=== PATIENT | female | born 1940 | race Caucasian/White ===

== ENCOUNTER 2018-06-29 14:50 | Outpatient (CLI) | payer MEDICARE, MEDICAID, SELFPAY ==
[2018-07-03 11:58] LABS: Hepatitis C Ab w Rflx HCV PCR Negative (NEGAT)
[2018-07-03 12:04] LABS: HIV-1/2 Ag & Ab Screen Negative (NEGAT)
[2018-07-03 12:08] LABS: Hep B Core Antibody Negative (NEGAT)
== END 2018-06-29 15:10 ==
PROVIDERS: PCP Internal Medicine; Visit Provider Obstetrics & Gynecology
DX: Z11.4 Encounter for screening for human immunodeficiency virus [HIV] (principal); Z11.3 Encounter for screening for infections with a predominantly sexual mode of transmission; Z11.59 Encounter for screening for other viral diseases; Z01.84 Encounter for antibody response examination
CPT/HCPCS: 36415; 86704; 86803; 87340; 87389

== ENCOUNTER 2018-06-29 16:22 | Outpatient (REF) | payer MEDICARE, MEDICAID, SELFPAY ==
[2018-07-03 14:51] LABS: Chlamydia Result Negative; GC Result Negative; Specimen Description CERVIX
== END 2018-06-29 16:42 ==
LOC: LBN 16:22
PROVIDERS: PCP Internal Medicine; Visit Provider Obstetrics & Gynecology
DX: Z11.3 Encounter for screening for infections with a predominantly sexual mode of transmission (principal)
CPT/HCPCS: 86803; 87491; 87591

== ENCOUNTER → 2018-07-17 13:39 | Outpatient (BNVA) | payer MEDICARE, MEDICAID, SELFPAY | PROVIDERS: Visit Provider Urology | DX: N28.1 Cyst of kidney, acquired (principal); I10 Essential (primary) hypertension | CPT/HCPCS: 99203; 99214 ==

== ENCOUNTER 2019-02-23 13:57 | Outpatient (CLI) | payer MEDICARE, MEDICAID, SELFPAY ==
[2019-02-23 16:45] LABS: TSH (W/Ref FT4) 0.01 uIU/mL (0.358-3.74)
[2019-02-24 11:35] LABS: HIV-1/2 Ag & Ab Screen Negative (NEGAT)
[2019-02-24 14:43] LABS: FREE T4 1.25 ng/dL (0.76-1.46)
[2019-02-26 10:51] LABS: Hepatitis Be Antigen Negative (Negative)
[2019-02-26 12:36] LABS: Hep B Core Antibody Negative (NEGAT)
[2019-02-27 10:51] LABS: Syphilis Serology (RPR) Negative (Negative)
== END 2019-02-23 14:17 ==
PROVIDERS: PCP Internal Medicine; Visit Provider Obstetrics & Gynecology
DX: N92.0 Excessive and frequent menstruation with regular cycle (principal); Z72.51 High risk heterosexual behavior; Z11.4 Encounter for screening for human immunodeficiency virus [HIV]; Z11.59 Encounter for screening for other viral diseases
CPT/HCPCS: 36415; 86704; 87389; 84439; 84443; 86592; 87350

== ENCOUNTER 2019-02-23 18:43 | Outpatient (REF) | payer MEDICARE, MEDICAID, SELFPAY ==
[2019-02-26 13:44] LABS: Chlamydia Result Negative; GC Result Negative; Specimen Description CERVICAL
== END 2019-02-23 19:03 ==
LOC: LBN 18:43
PROVIDERS: PCP Internal Medicine; Visit Provider Obstetrics & Gynecology
DX: Z72.51 High risk heterosexual behavior (principal); Z11.3 Encounter for screening for infections with a predominantly sexual mode of transmission
CPT/HCPCS: 87491; 87591

== ENCOUNTER → 2019-04-27 07:59 | Outpatient (BNVA) | payer MEDICARE, MEDICAID, SELFPAY | PROVIDERS: PCP Internal Medicine; Visit Provider Urology | DX: R32 Unspecified urinary incontinence (principal); R39.11 Hesitancy of micturition; R31.9 Hematuria, unspecified; I10 Essential (primary) hypertension; J44.9 Chronic obstructive pulmonary disease, unspecified | CPT/HCPCS: 81003; 99213 ==

== ENCOUNTER 2019-05-01 00:15 | Outpatient (CLI) | payer MEDICARE, MEDICAID, SELFPAY ==
--- NOTE | 2019-05-01 13:21 | DI.DEXA_ITS ---
SYMPTOMS/DIAGNOSIS: POSTMENOPAUSAL, Z78.0, FRACTURE OF COCCYX, S32.2XXG DEXA SCAN: Routine examination. Evaluation of the lateral spine shows no compression deformities. Evaluation of the left hip shows a total T score of -0.1 and Z score of 1.8. This is within normal limits. This compares with a total T score of 0.2 from 2008. Evaluation of the lumbar spine shows a total T score of -0.3 and a Z score of 2.2 which is within normal limits. This compares with a total T score of -0.7 from 2008. IMPRESSION: No evidence of osteoporosis.
== END 2019-05-01 00:35 ==
PROVIDERS: PCP Internal Medicine; Visit Provider Internal Medicine
DX: Z78.0 Asymptomatic menopausal state (principal); Z13.820 Encounter for screening for osteoporosis
CPT/HCPCS: 77080

== ENCOUNTER 2019-05-18 02:26 | Outpatient (CLI) | payer MEDICARE, MEDICAID, SELFPAY | END 2019-05-18 02:46 | PROVIDERS: PCP Internal Medicine; Visit Provider Urology | DX: R32 Unspecified urinary incontinence (principal); R39.11 Hesitancy of micturition | CPT/HCPCS: 82565; 87086 ==

== ENCOUNTER → 2020-02-11 12:50 | Outpatient (BNVA) | payer MEDICARE, MEDICAID, SELFPAY | PROVIDERS: PCP Internal Medicine; Referring Provider Internal Medicine; Visit Provider Surgery | DX: R10.11 Right upper quadrant pain (principal); G89.29 Other chronic pain; Z01.818 Encounter for other preprocedural examination; Z87.19 Personal history of other diseases of the digestive system | CPT/HCPCS: 99203; 99214 ==

== ENCOUNTER 2020-02-11 15:41 | Outpatient (REF) | payer MEDICARE, MEDICAID, SELFPAY ==
[2020-02-11 21:18] LABS: Anion Gap 7.1 mmol/L (3-11); BUN 13 mg/dL (7-18); CO2 27.9 mmol/L (21.0-32.0); CREATININE 0.74 mg/dL (0.55-1.02); Calcium 9.3 mg/dL (8.5-10.1); Chloride 104 mmol/L (98-107); FREE T4 1.32 ng/dL (0.76-1.46); Glucose 92 mg/dL (74-106); Potassium 4.5 mmol/L (3.5-5.1); Sodium 139 mmol/L (136-145)
[2020-02-11 21:26] LABS: TSH < 0.01 uIU/mL (0.36-3.74)
[2020-02-12 16:41] LABS: T3, Total 223 ng/dL (97-169)
[2020-02-13 09:52] LABS: Thyroglobulin Antibody <15 U/mL (<=60); Thyroperoxidase Antibody <28 U/mL (<=60)
== END 2020-02-11 16:01 ==
LOC: NCHCN 15:41
PROVIDERS: PCP Internal Medicine; Visit Provider Internal Medicine
DX: E05.80 Other thyrotoxicosis without thyrotoxic crisis or storm (principal)
CPT/HCPCS: 80048; 86376; 84439; 84443; 84480

== ENCOUNTER 2020-02-21 09:23 | Outpatient (CLI) | payer MEDICARE, MEDICAID, SELFPAY ==
[2020-02-22 15:09] LABS: COVID-19 RT-PCR Result NEGATIVE (Negative)
== END 2020-02-21 09:43 ==
PROVIDERS: PCP Internal Medicine; Visit Provider Surgery
DX: Z11.51 Encounter for screening for human papillomavirus (HPV) (principal); Z01.818 Encounter for other preprocedural examination
CPT/HCPCS: U0003

== ENCOUNTER 2020-02-25 06:59 | Day surgery (SDC) | payer MEDICARE, MEDICAID, SELFPAY ==
[2020-02-25 07:22] VITALS: BP 161/90; PULSE 79; RESP 16; TEMP 36.2; O2SAT 98
[2020-02-25] MEDS: Lactated Ringers 1,000 ML 80 ML IV (07:49)
--- NOTE | 2020-02-25 08:17 | W.PM.DSUDISC ---
Discharge Plan Disposition Patient Disposition: HOME Condition: Good Discharge Details Reason For Visit: EGD Attending Provider: Sammi Harp Primary Care Provider: Campos Lopes Home Meds and New Rx's Prescriptions: Continued fluticasone propionate 50 mcg/actuation spray,suspension 2 spray NASIR DAILY RF: 0 Advair HFA 230-21 mcg/actuation HFA aerosol inhaler 2 puff IH BID RF: 0 estradiol [Estrace] 42.5 GM cream 1 g VG PRN PRNRF: 0 phenazopyridine [Pyridium] 200 mg tablet 200 mg PO TID PRNRF: 0 albuterol sulfate [Ventolin HFA] 90 mcg/actuation HFA aerosol inhaler 2 puff IH Q6H PRNRF: 0 cholecalciferol (vitamin D3) 25 mcg (1,000 unit) capsule 25 mcg PO DAILY RF: 0 solifenacin [Vesicare] 5 MG tablet 5 mg PO PRN RF: 0 omeprazole 40 mg Capsule,Delayed Release(Dr/Ec) 40 mg PO BID RF: 0 atenolol 50 mg Tablet 50 mg PO DAILY RF: 0 guaifenesin [Mucinex] 600 mg Tablet Extended Release 12hr 600 mg PO RF: 0 Discharge Instructions Additional Instructions: Findings: Your stomach showed mild inflammation. Continue the omeprazole. My office will contact you with biopsy results. A submucosal mass was present in the stomach. 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 A referral will be made for an endoscopic ultrasound of the stomach with biopsy. Please call if you develop: fevers >101.5 Nausea or Vomiting Abdominal pain that is not transient DAY SURGERY UNIT POST EGD INSTRUCTIONS 1. Because there will be medication in your system for the next 24 hours, you may feel a little sleepy. Your coordination will be affected. Therefore: a. Do not drive or operate dangerous equipment for 24 hours. b. Do not drink alcohol beverages for 24 hours (not even beer). c. Plan to go home and rest for the day. 2. Generally there are no restrictions on your activity after a day or so has gone by, but you may feel a bit fatigued for a few days. 3 After you arrive home you may have a light meal and return to a normal diet as you can tolerate it without feeling sick to your stomach. 4. After surgery, you may feel pain or discomfort. This should be only transient, but if it persists please contact your doctor. 5. If there are any questions regarding the findings of your procedure, please feel free to contact your doctor. 6. If you are unable to contact your doctor with a problem, contact the hospital at [phone]. 7. Continue all your regular medications unless directed otherwise. I understand the above instructions and have no questions. Signature of Patient or Responsible Adult Escort Date/Time Name of Responsible Adult Escort Signature of Nurse Date/Time Activity:: Activity as Tolerated Diet:: As Tolerated Discharge Orders Discharge Orders: Discharge Order (Routine); Ordered 02/25/20 Ordered By: Sammi Harp DS: Diagnosis Discharge Diagnosis (1) Mild chronic gastritis: Status: Acute (2) Gastric mass: Status: Acute
--- NOTE | 2020-02-25 08:45 | BOWEL_PTH ---
PATIENT: Maureen Thomas LOC: [facility] U#:[id number] AGE/SX: 80/F ROOM: RE02/25/[address]: Sammi Harp MD : 1940 BED: DIS: 02/25/2020 SPEC #: [id number] RECD: 02/25/20 11:47 STATUS: SOUNeha REQ #: [id number] EFRAÍN: 02/25/20 08:[address]: Sammi Harp DEPT: Surgical Specimen RECD BY: Ivett Serrano ENTERED: 02/25/20 11:48 SP TYPE: Bowel OTHR DR: Campos Lopes Tissues: 1 - BIOPSY BOWEL 2 - STOMACH BIOPSY Procedures: GROSS AND MICRO LEVEL 4 Comments: [id number]
[2020-02-25 09:23] VITALS: BP 142/77; PULSE 65; RESP 16; TEMP 36.3; O2SAT 95
--- NOTE | 2020-02-26 14:31 | W.PM.ENDDOP ---
Date of service: 02/25/20 Time of Service: 08:30 Endoscopy Report DATE OF PROCEDURE: 02/25/20 PRE-OP DIAGNOSIS: RUQ pain, history of PUD POST-OP DIAGNOSIS: other (Mild gastritis, submucosal gastric mass) PROCEDURE: EGD with biopsies SURGEON: Sammi Harp ANESTHESIA: MAC DISPOSITION: same day INDICATIONS: This 80-year-old woman presents for evaluation of right upper quadrant pain as well as excessive mucus production. She has a remote history of an ulcer which she believes was duodenal. She has not noted much improvement in her symptoms by increasing her omeprazole to twice a day. PROCEDURE DESCRIPTION: She was placed in the left lateral decubitus position. Propofol was titrated to sedation. The scope was advanced into her esophagus under direct visualization and down into the stomach and duodenum. There was no duodenitis or ulcers noted. Biopsies were taken from the second portion of the duodenum. The gastric antrum showed no acute ulceration. There may have been a area of scar representing a healed ulcer. Along the greater curvature the stomach at the junction of the gastric body and antrum was an approximately 4 cm submucosal mass. This has the appearance of a GIST. I did not perform biopsies because the abnormality is located below the mucosa. The patient was noted to have mild gastritis. Biopsies were taken from the gastric body to evaluate this. Retroflexed view showed no abnormalities. The GE junction exhibited no masses, Salinas's, inflammation or strictures. The air was suctioned in the stomach and scope withdrawn with no other esophageal lesions found. She will be referred for endoscopic ultrasound with biopsy as well as CT scan of the abdomen and pelvis. Her excess mucus production may be related to postnasal drip and or reactive airway disease. Reflux may also be a factor although no visible abnormalities were seen. She tolerated the procedure well and was stable to recovery.
== END 2020-02-25 09:55 | disposition home or self-care (01) ==
PROVIDERS: PCP Internal Medicine; Visit Provider Surgery
PROC: 0DJ68ZZ Inspection of Stomach, Via Natural or Artificial Opening Endoscopic (ICD-10-PCS; CPT 43235; principal; 2020-02-25 08:15)
DX: R10.11 Right upper quadrant pain (principal); Z87.11 Personal history of peptic ulcer disease; K31.89 Other diseases of stomach and duodenum; K29.60 Other gastritis without bleeding; J44.9 Chronic obstructive pulmonary disease, unspecified; I10 Essential (primary) hypertension; I48.0 Paroxysmal atrial fibrillation
CPT/HCPCS: 43239; 88305; J2001; J2405; J2704

== ENCOUNTER 2020-02-29 02:17 | Outpatient (CLI) | payer MEDICARE, MEDICAID, SELFPAY ==
--- NOTE | 2020-02-29 07:15 | DI.CT_ITS ---
EXAM: CT ABDOMEN PELVIS W CLINICAL HISTORY: Submucosal gastric mass, K31.89 TECHNIQUE: Imaging Protocol: Axial computed tomography images with coronal and sagittal reformatted images were created and reviewed CONTRAST MATERIAL: Intravenous: Omnipaque 350 Contrast volume:100 mL Oral: Yes COMPARISON: CT LUMBAR SPINE WITHOUT CONTRAST from 12/09/[address] CHEST W/O CONTRAST from 11/28/2017 FINDINGS: ABDOMEN: Lung Bases: Normal where visualized. Liver: Normal density. No measurable mass. Portal, Superior Mesenteric, and Splenic Veins: Unremarkable. Gallbladder and Biliary Tract: No radiodense calculus or dilation. Pancreas: Normal density, no abnormal calcifications or inflammatory process. Spleen: Normal. Adrenals: No masses seen. Kidneys: Normal size, contour and axis. No radiodense stones or obstructive uropathy. Bilateral simpl e renal cysts. Abdominal Aorta: Abdominal portion non-dilated. Atherosclerosis. Bowel: No obstruction or bowel wall thickening. There is a small hiatal hernia. Appendix is unremar kable. Colonic diverticulosis but no evidence of acute diverticulitis. There is a 2.4 x 1.2 cm fat d ensity submucosal mass in the anterior wall of the distal stomach. (Series 5, image 139). No enhanc ing or solid component is noted. 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 Peritoneal Cavity: No ascites, collection or mesenteric inflammatory response. Lymph Nodes: Within normal limits. Bones: Within normal limits. Soft Tissues: Unremarkable. PELVIS: Bladder: Symmetric distention, no gross wall thickening. Reproductive Organs: Unremarkable as visualized. Lymph Nodes: Within normal limits. Bones: Within normal limits. IMPRESSION: 1. 2.4 x 1.2 cm intramural fat attenuation mass in the anterior wall of the distal stomach. 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 2. Colonic diverticulosis but no evidence of acute diverticulitis. 3. No evidence of abdominal or pelvic adenopathy or ascites. RADIATION DOSE DELIVERED: 1,096.51mGy.cm Total DLP DATA REPOSITORY: All CT scans at this facility are submitted to the National Radiology Data Registry (NRDR) Dose Index Registry (DIR) with the [employer] (ACR). RADIATION OPTIMIZATION: All CT scans at this facility use at least one of these dose optimization te chniques: automated exposure control; mA and/or kV adjustment per patient size (includes targeted exa ms where dose is matched to clinical indication); or iterative reconstruction.
[2020-02-29] MEDS: Omnipaque 350 MG/ML 100 ML BTL IJ (08:26)
== END 2020-02-29 02:37 ==
PROVIDERS: PCP Internal Medicine; Visit Provider Surgery
DX: K31.89 Other diseases of stomach and duodenum (principal); N28.1 Cyst of kidney, acquired; K57.30 Diverticulosis of large intestine without perforation or abscess without bleeding
CPT/HCPCS: 74177; J3490

== ENCOUNTER 2020-03-06 01:53 | Outpatient (CLI) | payer MEDICARE, MEDICAID, SELFPAY ==
--- NOTE | 2020-03-06 07:45 | DI.US_ITS ---
EXAM: US ABDOMEN LIMITED CLINICAL HISTORY: Evaluate gallbladder,CHRONIC RUQ PAIN, R10.11,G89.29,F/U CT TECHNIQUE: Ultrasound performed using standard protocol. COMPARISON: CT CT ABDOMEN PELVIS W from 02/29/2020 FINDINGS: The gallbladder was scanned. No stones, wall thickening or pericholecystic fluid is seen. Common b ile duct measures 4 millimeters. IMPRESSION: Normal gallbladder DATA REPOSITORY:
== END 2020-03-06 02:13 ==
PROVIDERS: PCP Internal Medicine; Visit Provider Surgery
DX: R10.11 Right upper quadrant pain (principal); G89.29 Other chronic pain
CPT/HCPCS: 76705

== ENCOUNTER 2020-03-19 00:40 | Outpatient (CLI) | payer MEDICARE, MEDICAID, SELFPAY ==
--- NOTE | 2020-03-19 07:00 | DI.NM_ITS ---
EXAM: NM HEPATOBILIARY CCK GRP CLINICAL HISTORY: RUQ pain,R10.11. TECHNIQUE: Injected dose: 5 mCi Tc-99 mebrofenin Initial dynamic images: 60 minutes Post-Gallbladder fillin.7 mcg CCK infused over 45 minutes according to protocol. Addition images: 20 minute dynamic during CCK administration. FINDINGS: The patient did report mild nauseous during CCK infusion similar to primary complaint. Normal hepatic transit time. Prompt excretion into the small bowel. Prompt excretion into the gallbladder The gallbladder ejection fraction was calculated at 14 percent. (Normal gallbladder ejection fractio n is greater than 40 percent. IMPRESSION: 1. Decreased gallbladder ejection fraction at 14 percent. This can be seen with gallbladder dysfunct ion/gallbladder dyskinesia. Gallbladder ejection fraction <35% has a good correlation with acalculous disease (i.e., chronic acal culous cholecystitis, cystic duct syndrome, sphincter of Oddi disease).
[2020-03-19] MEDS: Sincalide 5 MCG VIAL 1.7 MCG IJ (15:28)
== END 2020-03-19 01:00 ==
PROVIDERS: PCP Internal Medicine; Visit Provider Surgery
DX: R10.11 Right upper quadrant pain (principal); R11.0 Nausea; K82.8 Other specified diseases of gallbladder
CPT/HCPCS: 78227

== ENCOUNTER 2020-11-21 10:19 | Outpatient (CLI) | payer MEDICARE, MEDICAID, SELFPAY ==
--- OUTSIDE RECORDS SUMMARY | 2020-11-21 10:24 | XMS_ITS | Encounter Summary ---
:1940 Author Care Team Providers Name Role Phone Nate Lopes Primary Care Provider [phone] Moris Eason MD Health Technician [phone] Shruthi Hussein MD Minute Clerk For [employer] Unavailable Oleg Bocanegra MD Urologist [phone] Romulo Comer MD Orthopedic Surgeon Unavailable Reason for Visit Follow Up Echo; [place] - Dyspnea on Exertio n; HTN-Hypertension Ref; Dr Lopes @ [facility] Assessment and Plan Assessment Note Date: November 12, 2020. Referring: Re: Maureen Thomas 72-year-old woman Problems: 1. Dyspnea. Longstanding. Patient describes sufferin g from considerable reactive airway disease. She describes bad cold weather asthma. This significantly limits her in the terry. In the dao her activity prof ile can become quite normal without ihsan thing difficulties but in the winter cold air induces significant bronchospasm. She pretreats with albuterol, she uses Advair. In years past she has been able to manage with these measures. Patient evaluated ER September 18, 2020, describing shortness of breath for 2 days. Noted [facility] Day before she was short of breath walking to the [employer] store. In ER blood pressure 152/97, heart rate 6 6 chest x-ray negative. Troponin negative. Discharged. She apparently used her rescue albuterol in the course of developing these symptoms without any result. This event was quite atypical for seymour t. She is usually able to walk a block stores without any difficulty. She is minimally active at baseline. He is fairly sedentary at home. No aerobic exercise whatsoever. She looks after her own home, lives alone and independently. Does her own cooking cleaning. She does not have any stairs to climb. She takes her laundry down a long haul (lives in an apartment complex), this is one of her longer walks, in addition to walking in stores. Since September 2020 event, she is descri fela intermittent shortness of breath that is unusually limiting for her context of walking for her longer walking in stores. There are days she can do these acti vities without problem, other days when she is quite short of breath. She has no history of chest discomfort. She describes sweating excessively, th is is a longstanding issue. 2. Left bundle branch block. Noted on September 2020 ER evaluation. I do not know if left bundle branch block is more longstanding than that. Noted again on EKG today, November 12, 2020. 3. Palpitations. She has a history of palpitations that h ave been very well controlled with atenolol. HPI: November 12, 2020. Living situation as above. Dyspnea as above. No history chest pain. Denies PND orthopnea edema. Weight is not checked at home. She sleeps on 2 pillows. She describes significant GERD also describes significant mucus that can inte rfere with breathing, she feels mucus is related to GERD. GERD is now being controlled ostensibly by omeprazole 40 mg twice daily with as needed ranitidine. She describes gallbladder issues with right u pper quadrant pain that is occasionally quite severe. She describes having a multinodular goiter with a history of low TSH, normal free T4, T3. No snoring history/sleep evaluation. Palpitations as above , no presyncope or syncope. No bleeding problems. DATA: Cardiac risk factors: Positive hypertens ion. Negative diabetes. Negative cholesterol. Negative family history. Positive remote tobacco, [id number] history, quit 1993. Social history: Activity profile as abov e. Past medical history: Asthma. Carpal elda sharon. Chronic interstitial cystitis. GERD. Hypersomnia. Fatigue. Review of systems: A 10-point review of systems was obtained. Pertinent positives as described in HPI, all others negative. Allergies: Epinephrine?tachycardia. Myrb etriq?increased urinary frequency. Nitrofurantoin?bladder pain. Shellfish: Facial swelling. Trimethoprim: Rash. Contrast allergies: Iodinated IVP dye: H josh Echo: November 04, 2020. LVEF 60 to 65%. Normal size. Mild concentric LVH. Paradoxical septum. Sinus. Right ventricle mildly dilated, normal function. Left atrium normal, 22. Right atrium normal. Aortic valve trileaflet. Pulmonary pressure not assessable. Pericardium normal. Aortic root normal 2.8. Ascending normal 2.9. Arch normal 2.2. No coarct. No PDA. IVC normal. E prime 5, 7 (7, 10). E/E primed 14 .8, 11.7 (15, 12). TR max unknown. Diast olic indices appear normal, no evidence elevated left-sided filling pressure. Cardiac MRI: Stress: LHC: Holter: Event monitor: EKG: November 12, 2020. Sinus rhythm 70 b pm. Left bundle branch block. QT/QTc 404/421 ms. September 18, 2020. Sinus rhythm 63 bpm. Left bundle branch block. QT/QTc 437/448 ms. Radiology: September 19, 2020. Chest x-ra y. No acute abnormality. June 13, 2019. Chest CT without cont rast. Stable minimal densities left lower lobe right middle lobe. Pulmonary function test: Labs: November 12, 2020. BUN/creatinine 2 1/0.6. Lites normal except bicarb 32. AST/ALT normal. D-dimer 0.55. proBNP 353. Troponin less than 0.06x1. CBC normal. September 18, 2020. Troponin less than 0. 06x1. CBC normal. April 14, 2020. TSH low, less than 0.05. T 3 total normal 157. Free T4 normal 0.91. March 24, 2019. BUN/creatinine 23/0.6. Li ponce normal. Magnesium normal 2.1. Medications: Atenolol 50 mg daily Advair, vitamin C, Estrace, fluconazole, fluticasone, levofloxacin, magnesium, omeprazole, ranitidine, solifenacin, Toviaz, Ventolin, vitamin C, vitamin D3 Exam: Blood pressure: 190/107, repeat 122/91 Heart rate: 76 Oxygen saturation: 93% Weight: 198 pounds November 12, 2020: Ambulation in the villagomez : Heart rate 87 ->121 bpm, O2 sat ana luisa 86% General: Patient alert oriented appropri ate conversant. HEENT: JVP 7 cm sitting. No bruits Heart: Regular rate and rhythm, S1-S2, n o murmur gallop or rub. Lungs: Diminished breath sounds bilatera lly, wheezing right upper lobe. Abdomen: Soft. Nontender. Nondistended. No sacral edema. No bruits Extremities: No lower extremity edema bi laterally. Assessment: 1. Dyspnea. Patient with long history of reactive ai rway disease, especially triggered with cold weather. Remote tobacco history. Has been followed by pulmonology in the past. Dyspnea has been worsening over the last 2 months. Exacerbations appear to be somewhat random. She is able to perform her usual level of functionality some days without limiting shortness of breath, other days shortness of breath is quite limiting. Echocardiogram October 2020: Normal bive ntricular systolic function. Diastolic indices appear normal. Pulmonary pressures not assessable. Patient desaturates in the office today. I am concerned she probably has more julio g disease than we are aware of. We will repeat pulmonary function tests. She would like to have these done in [facility]. We will eventually refer to pulmonology. She may qualify for home oxygen. Will arrange for stress testing. We will attempt treadmill Cardiolite study. While ambulating in the villagomez today heart rate went up to 121 bpm (level surface on beta-marie) we may be able to make this a treadmill study. If not, I think we wi ll transition to Lexiscan. We will obtain blood work today: Lites B UN/creatinine CBC proBNP troponin D-dimer. We may wish to obtain CT scan lungs with contrast (she is allergic to contrast media, has undergone pelvic CT with contrast per urology with pretreatment, no complication). 2. Left bundle branch block. Duration unclear. Echocardiogram October 2020 as above. No cardiomyopathy. We will arrange for ischemic evaluation as above. 3. Hypertension. Numbers initially quite elevated in the office today. Follow-up values quite acceptable. Thank you for allowing me to participate in this patient's care. Sincerely, Moris Eason MD, [facility] Disposition: We will see her back in [facility] 1 month Time: 40-minute [id number] interview w ith patient, 10-minute chart review development completion November 13, 2020. Addendum: D-dimer retu rned 0.55 mg/L. Will obtain CT angiogram chest to rule out PE. Patient will require pretreatment for contrast allergy. Will treat patient with Anticoagulation: Ap ixaban 10 mg twice daily x7 days followe d by 5 mg twice daily until she is cleared by CT scan which will be as soon as possible. I think she is hemodynamically stable. I think likelihood of significant PE is quite low. Creatinine 0.6. Discussion Note: None recorded.Patient educational handouts: No information available. Plan of Care Reminders Provider Appointments 12/02/2020 [facility] None ? ? recorded. Referral None ? ? recorded. Procedures None ? ? recorded. Surgeries None ? ? recorded. Imaging None ? ? recorded. Medications Name Start Date ? ? Advair HFA 230 mcg-21 mcg/actuation aerosol inhaler ? ascorbic acid (vitamin C) 500 mg capsule ? Take 1 capsule 3 times a day by oral route for 90 day s. atenolol 50 mg tablet ? Take 1 tablet every day by oral route. Benadryl 25 mg capsule ? Take 2 tablets: [address] sc an, then [address] scan, then [address] Scan Take 2 tablets: [address] sc an, then [address] scan, then [address] Scan Eliquis 5 mg tablet ? TAKE 2 TABLETS BY MOUTH IN THE MORNING AND 2 TABLETS IN THE EVENING FOR 7 DAYS THEN 1 TABLET IN THE AND 1 TABLET IN THE EVENING THEREAFTER Estrace 0.01% (0.1 mg/gram) vaginal cream ? fluconazole 150 mg tablet ? fluticasone propionate 50 mcg/actuation nasal spray,rock spension ? levofloxacin 250 mg tablet ? 1 tab now magnesium ? omeprazole 40 mg capsule,delayed release ? Take 1 capsule twice a day by oral route. prednisone 50 mg tablet ? Take 1 tablet [address] scan , then [address] scan, then [address] Scan Take 1 tablet [address] scan , then [address] scan, then [address] Scan ranitidine 150 mg tablet ? solifenacin 10 mg tablet ? Take 1 tablet every day by oral route. terconazole 0.4 % vaginal cream ? Toviaz 8 mg tablet,extended release ? Take 1 tablet every day by oral route for 90 days. Ventolin HFA 90 mcg/actuation aerosol inhaler ? Vitamin C ? Vitamin D3 ? Notes: Pt denies recent changes in medications. 12/12/19 it's not necessary to review the list Medications Administered None recorded. Vitals Height Weight BMI Blood Pressure 5 ft 6 in 89.9 kg 32 kg/m2 190/107 mm[Hg] Results Lab Results None recorded. Allergies Code Code System Name Reaction Severity Onset 7454 RxNorm Nitrofurantoin Other Moderate to 0 Severe 61581 RxNorm Trimethoprim Rash Moderate to 09/06/2020 Severe 3992 RxNorm Epinephrine Tachycardia Moderate ? 5933 RxNorm Iodine Hives ? ? 2817186 RxNorm Myrbetriq Other Moderate ? Shellfish Derived Facial Swelling ? ? Problems Name Status Onset Date Source ? Gastroesophageal Reflux Disease Active 12/06/2018 ? Asthma Active 07/23/2020 ? Hypersomnia Active ? History Hypertensive Disorder Active ? History Chronic Interstitial Cystitis Active ? Hi story Postmenopausal Bleeding Active ? History Lack of Energy Active ? History Urgent Desire to Urinate Active ? History Laceration of Ear Region Active ? History Carpal Tunnel Syndrome of Right Wrist Active ? History Pain in Right Foot Active ? History Procedures Date Name Performed by ? 12/13/2017 Carpal Tunnel Release Open Information n ot available Notes: right 11/12/2020 [place], Myocardial Perfusion Scan, / [facility] Radiology (Internal) Stress [address] [place] [address] (Work Place) Vaccine List Vaccine Type influenza, injectable, quadrivalent 07/31/2018 07/10/2019 pneumococcal conjugate PCV 13 06/10/2015 pneumococcal polysaccharide PPV23 11/15/2007 Social History Tobacco Smoking Status Former Smoker Notes: quit 20 yrs ago Alcohol intake Occasional Notes: 1 glass wi ne Screened for Covid-19 Y Notes: no s/s Number of children 1 Marital status Blind or serious difficulty seeing N Not es: wears glasses Language Difficulties No Notes: Georgian Most Recent Tobacco Use Screening 11/12/2020 Advance directive Y Caffeine intake Occasional Notes: 2 cups cof fee Drug Use N N 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 Past Encounters 11/12/2020 Moris Eason MD: [address] [place] [address], Ph. History of Present Illness None recorded. Review of Systems None recorded. Physical Exam None recorded.
--- OUTSIDE RECORDS SUMMARY | 2020-11-21 10:24 | XMS_ITS | Encounter Summary ---
:1940 Author Care Team Providers Name Role Phone Nate Lopes Primary Care Provider [phone] Moris Eason MD Lumber Press Operator [phone] Shruthi Hussein MD Graduate Internship Unavailable Oleg Bocanegra MD Urologist [phone] Romulo Comer MD Orthopedic Surgeon Unavailable Reason for Visit visit performed via telephone, patient i dentified using name and date of , verbal consent provided from patient, nu rse intake portion of call initiated at and concluded at, call forwarded to Dr Yudy roque at this time Assessment and Plan Assessment Note Await updated medication trial. 1. Overactive bladder Worsening stanguria/urgency sy mptoms with increased distress, refractory to multiple empiric symptomatic and specifi c therapies, as well as to suppressive antimicrobial (recent cystoscopy showed cystitis cystica suggesting a possible infectious component). She likely has a complex blend of idiopathic bladder overactivity, sensory urgency, interstit ial cystitis/chronic pelvic pain syndrome, and bacterial urethritis and this may ex plain why her symptoms have been so difficult to overcome. See below. 2. Urgent desire to urinate Severe urgency with frequent, small volume voids. Exacerbation on Myrbetriq was another idiosyncratic reaction durteodora g which she feels treatment exacerbates her symptoms. I wonder if the underlying con dition leading to the need for a new med is actually the cause of symptoms, rather t newton the med itself. Unfortunately as a result, she has an enlarging list of facundo led/intolerable meds. There is no known mechanism by which Myrbetriq should caus e her to have increased frequency unless it caused retention (and there was no evide nce of retention on her exam). She clearly has sensory urgency with small voids of often less than an ounce and might benefit from Botox, sacral neuromodulation, and/ or pelvic floor rehab. Historically antimuscarinic/anticholinergic meds (Ves icare, Detrol, etc) tend to work for overactive bladder but not for interstit ial cystitis (I.C.)/chronic pelvic pain syndrome (CPPS). 3. Bladder pain Occasional bladder pain, possi patric interstitial cystitis flare versus bacterial infection. We have attempted t o suppress bacterial infection and reassess her symptoms over time. Symptoms are fla ring but now she thinks there is either superimposed infection or a reaction to the antibiotic. Again I think we are dealing with the underlying condition, not the v arious treatments, causing increased symptoms. 4. Chronic interstitial cystitis Suspected. As above. She agree s to try gabapentin, side effects discussed as was the likely need to push the dose over time. ? 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 Interesting that we found this despite her multiple negative cultures. She does provide a history of significant symptomatic relief with antibiotics. Per haps she has bacterial urethritis such that a clean, mid-stream culture does not cap ture the offending bacteria. We started a trial of suppressive nitrofurantoin with vitamin C, after which she was to report breakthrough symptoms which would likely (in the setting of a negative culture) represent an interstitial cystitis flare . She has had worsening symptoms despite suppression and with negative updated cu lture such that I cannot endorse ongoing antibiotics as a reasonable treatment st rategy. There are studies showing that urinary pathogens may exist that we lin ot routinely test for by standard culture. However I am not sure what to do with th at information in her case, as we tried daily suppression despite reservations based o n the endoscopic appearance, and she is at least as symptomatic. 6. Incontinence without sensory awareness Her description of incontinenc e may represent incontinence without sensory awareness, which often is a manifestation of an overactive bladder; however, she does describe increased wetness with prolonged walking which may suggest a s tress?induced component. We can attempt to reassess this once we have suppressed infection and gotten her symptom flare under control. 7. Microscopic hematuria Essentially negative CT urogra m. Cystoscopy showed bladder neck hyperemia and mucosal findings suggestive of chron ic infection despite negative culture results in the past. This likely accounts for th e microscopic hematuria seen in the past and recently. 8. Atrophic vulvovaginitis Topical estrogen recommended. Local estrogen deficiency can contribute to both irritative symptoms and UTI risk. 9. Renal mass 10 mm probable hyperdense briseyda l cyst, with multiple bilateral simple renal cysts. Lesion was discussed with Dr. Dmitry plaza, who feels that MRI would not clarify the lesion. Consider repeat ultrasound in ab out 6 months. Discussion Note: None recorded.Patient educational handouts: No information available. Plan of Care Reminders Provider Appointments 12/02/2020 Moris díaz [facility] 9:30AM MD [facility] None ? ? [...] the list Medications Administered None recorded. Vitals None recorded. Results Lab Results None recorded. Allergies Code Code System Name Reaction Severity Onset 7454 RxNorm Nitrofurantoin Other Moderate to 0 Severe 69941 RxNorm Trimethoprim Rash Moderate to 09/06/2020 Severe 3992 RxNorm Epinephrine Tachycardia Moderate ? 5933 RxNorm Iodine Hives ? ? 2578449 RxNorm Myrbetriq Other Moderate ? 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 Past Encounters 10/08/2020 Overactive Bladder; Urgent Desire to Uri micaela; Bladder Pain; Chronic Interstitial Cystitis; Cystitis Cystica; Incontinence without Sensory Awareness; Microscopic Hematuria; Atrophic Vulvovaginitis; Renal Mass Oleg Bocanegra MD: [address] [place] [phone], Ph. History of Present Illness Note: <p>This is a telephone encounter due to the COVID-19 virus situation. The patient's identity was confirmed and consent was obtained for a charged telephone visit. My portion of today's visitlasted from 9:30 until 9:55 plus an additional 3 minutes of chart review prior to the call.
</p><p>
</p><p>See recent scanned emails.

At this point the patient is having mostly urgency but with occasional bladder pain. She says that the Vesicare and Pyridium are no longer helping. Tylenol and ibuprofen were not helpful. She said it is unrel enting at this point although today she feels okay.
</p><p>
</p><p>She felt that it atropine-like prescription medication that she was given from her PCP for postnasal drip seem to help. For unclear reasons, she has since discontinued that. There is a theoretical basis for that type of a medication helping with an overactive bladder, although certainly it is not typically used for that.
</p><p>
</p><p>She still isprone to believe that the problem is infection, although she has had symptom flares with negative cultures and antibiotics have not reliably maintained her reduced symptoms status. I am reluctant to continue to use antibiotics for what I do not believe is a bacterial condition.
</p><p >
</p><p>I believe she has something horacio to interstitial cystitis/chronic pelvic pain syndrome. She has been treated for this previously although response has been well-documented. She has had idiosyncratic adverse reactions to numerous interventions, although the reactions are always an exacerbation of symptoms which presumably were those being treated by the various interventions. Therefore, I am not as convinced that she is that these various reactions were from the treatments, rather than from the underlying disease being treated.

She says that she tried a tricyclic antidepressant previously and was not functional. She had concerns about medications like gabapentin or Lyrica because she knows that they can affect the brain. 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 She thought E lmiron caused increased urethral spasm and was on it only briefly.
</p><p>
</p><p>In her recent email, she mentioned now being aware that there are numerous medications in the anticholinergic/antimuscarinic group. They typically share similar efficacy but somewhat varied side effects. She preferred to try another of these rather than Neurontin or gabapentin. She reiterates that she has more urgency than pain (endorses only rare pain) such that she is skeptical about a diagnosis of interstitial cystitis.
</p><p>
</p><p&g t;Interestingly, updated cystoscopy in 08/29 showed cystitis cystica for which we did start a suppressive antimicrobial in addition to vitamin C. there was no evidence of CIS or bladder neoplasm or bladder calculus. Despite the suppressive antimicrobial, symptom flares continued and at that point she decided that the antibiotic might be causing her symptoms and wanted to discontinue it.

Med list and problem list are updated.
</p>Review of Systems: ROS as noted in the HPI Review of Systems None recorded. Physical Exam ? Notes: <p>Telephone encounter due t o COVID-19 virus situation ? physical exam not performed.
</p>
--- OUTSIDE RECORDS SUMMARY | 2020-11-21 10:24 | XMS_ITS ---
:1940 Author Care Team Providers Name Role Phone PAOLO CONCEPCION Primary Care Provider [phone] YUDY DAVIS MD Orthopedic Surgeon Unavailable SHRUTHI HUSSEIN MD Underwriting Clerk Unavailable HERMES BOCANEGRA MD Urologist [phone] ATRA REY MD Senior Datastage Developer [phone] Allergies Code Code Name Reaction Severity Status Onset System 7454 RxNorm Nitrofurantoin Other Moderate to Active Severe 0 12406 RxNorm Trimethoprim Rash Moderate to Active 09/06 Severe 0 3992 RxNorm Epinephrine Tachycardia Moderate Active ? 5933 RxNorm Iodine Hives ? Active ? 9357167 RxNorm Myrbetriq Other Moderate Active ? Shellfish Derived Facial Swelling ? Active ? Medications Name Status Start Date Stop Date ? ? Advair HFA 230 mcg-21 Active ? Not availa ble mcg/actuation aerosol inhaler Leigha Allergy 180 mg tablet Unknown ? No t available 1 (one) Tablet Tablet: qd - daily 180 mg amoxicillin 875 mg tablet Completed ? 2017 Anoro Ellipta 62.5 mcg-25 mcg/actuation powder for inhalatio n Completed 01/15/2016 12/15/2016 1 (one) Puff Puff: qd - daily ascorbic acid (vitamin C) 500 mg capsule Active ? Not available Take 1 capsule 3 times a day by oral route for 90 days. atenolol 50 mg tablet Active ? Not availa ble Take 1 tablet every day by oral route. azithromycin 250 mg tablet Completed ? 09/20 Benadryl 25 mg capsule Active ? Not avail able Take 2 tablets: [address] sc an, then [address] scan, then [address] Scan Take 2 tablets: [address] sc an, then [address] scan, then [address] Scan benzonatate 100 mg capsule Completed ? 04/17 celecoxib 200 mg capsule Completed ? 018 cephalexin 250 mg capsule Completed ? 2020 Take 1 capsule every day by oral route for 90 days. cetirizine 10 mg tablet Completed ? 12/06/19 19 doxycycline hyclate 100 mg tablet Completed ? 12/06/2018 Eliquis 5 mg tablet Active ? Not availabl e Elmiron 100 mg capsule Completed 09/20/2013 4 1 Capsule: three times daily erythromycin 5 mg/gram (0.5 %) eye ointment Completed ? 11/12/2020 APPLY 1 CM RIBBON INTO THE LOWER CONJUN CTIVAL SAC(S) IN THE AFFECTED EYE(S) BY OPHTHALMIC ROUTE 3 TIMES PER DAY for 5 days Estrace 0.01% (0.1 mg/gram) Active ? Not available vaginal cream famotidine 40 mg tablet Completed ? 11/12/19 21 fluconazole 150 mg tablet Active ? Not av ailable fluocinolone 0.01 % topical body Completed 02/27/2014 05/29/2014 oil fluticasone propionate 50 Active ? Not av ailable mcg/actuation nasal spray,suspension gabapentin 100 mg capsule Completed ? 2020 Take 1 capsule 3 times a day by oral route for 90 days. gabapentin 300 mg capsule Completed ? 2018 hydrocodone 5 mg-acetaminophen 325 Completed ? 12/06/2018 mg tablet Incruse Ellipta 62.5 mcg/actuation powder for inhalation Complet ed 10/15/2015 12/15/2016 1 (one) Inhalation Inhalation: daily ipratropium bromide 0.03 % nasal Completed ? 12/06/2018 spray Keflex 500 mg capsule Completed ? 07/23/2020 Take 1 capsule 4 times a day by oral route for 7 days. levofloxacin 250 mg tablet Active ? Not a vailable 1 tab now levofloxacin 500 mg tablet Completed ? 11/12 Take 1 tablet every 24 hours by oral route for 5 days. lindane 1 % shampoo Completed ? 12/06/2018 APPLY 30 MILLILITERS OF SHAMPOO BY TOPICAL ROUTE ONCE losartan 25 mg tablet Completed ? 07/23/2020 magnesium Active ? Not available meclizine 25 mg tablet Completed ? 9 methylprednisolone 4 mg tablets in Completed ? 09/20/2018 a dose pack metronidazole 500 mg tablet Completed ? 07/10 montelukast 10 mg tablet Completed ? 019 Myrbetriq 25 mg tablet,extended release Completed ? 11/12/2020 Take 1 tablet every day by oral route for 28 days. samples provided nitrofurantoin macrocrystal 100 mg capsule Completed ? 11/12/2020 Take 1 capsule every day by oral route for 90 days. nitrofurantoin Completed ? 12/06/2018 monohydrate/macrocrystals 100 mg capsule Nix Creme Rinse 1 % topical liquid Completed ? 12/06/2018 nystatin 100,000 unit/gram topical Completed ? 11/12/2020 cream omeprazole 20 mg capsule,delayed Completed ? 11/12/2020 release omeprazole 40 mg capsule,delayed release Active ? Not available Take 1 capsule twice a day by oral route. ondansetron 4 mg disintegrating Completed ? 12/06/2018 tablet pantoprazole 20 mg tablet,delayed Completed ? 12/06/2018 release penicillin V potassium 500 mg Completed ? tablet prednisone 10 mg tablet Completed ? 12/06/19 19 Take 4 tablets every day by oral route for 3 days, then take 3 tablets every day by oral route for 3 days, then take 2 tablets every day by oral route for 3 days, and then take 1 tablet every day by oral route for 3 days. prednisone 20 mg tablet Completed ? 04/17/20 18 prednisone 50 mg tablet Active ? Not avai lable Take 1 tablet [address] scan , then [address] scan, then [address] Scan Take 1 tablet [address] scan , then [address] scan, then [address] Scan ranitidine 150 mg tablet Active ? Not terrence ilable solifenacin 10 mg tablet Active ? Not terrence ilable Take 1 tablet every day by oral route. Spiriva with HandiHaler 18 mcg and inhalation capsules Completed 07/11/2015 11/06/2015 1 (one) Capsule Capsule: qd - daily Sporanox 10 mg/mL oral solution Completed 09/26/2014 09/26/2014 10 Milliliter: daily Stiolto Respimat 2.5 mcg-2.5 mcg/actuation solution for inha lation Completed 11/06/2015 12/06/2015 2 (two) Puff: every morning sucralfate 1 gram tablet Completed ? 020 terconazole 0.4 % vaginal cream Active ? Not available Toviaz 8 mg tablet,extended release Active ? Not available Take 1 tablet every day by oral route for 90 days. triamcinolone acetonide 0.1 % Completed ? topical cream trimethoprim 100 mg tablet Completed ? 11/12 Take 1 tablet every day by oral route for 90 days. Start 24 hours after last levofloxacin dose Ventolin HFA 90 mcg/actuation Active ? No t available aerosol inhaler Vitamin C Active ? Not available Vitamin D3 Active ? Not available Notes: Pt denies recent changes in medications. 12/12/19 it's not necessary to review the list Problems Name Status Onset Date Source ? [...] Syndrome of Right Wrist Active ? History SNOMED CT Concept Unknown ? History Radiology Result Abnormal Unknown ? Histor y Procedure by Method Unknown ? History Pain in Right Foot Active ? History Procedures Date Name Performed by ? 12/13/2017 Carpal Tunnel Release Open Information n ot available Notes: right 04/17/2018 CT, Chest, W/[facility] [address] [place] [address] (Work Place) 08/15/2019 US, Head + Neck, Soft Tissue [facility] Radiology (Internal) [address] [place] [id number] (Work Place) 08/15/2019 CT, Chest, W/o Contrast [facility] Rad[facility] (Internal) [address] [place] [address] (Work Place) 07/23/2020 CT, Urogram [facility] Radiology (Internal) [address] [place] [address] (Work Place) 11/12/2020 NM, Myocardial Perfusion Scan, W/ [facility] Radiology (Internal) Stress [address] [place] [address] (Work Place) 11/13/2020 CT, Angiogram, Chest, W/wo Contrast [facility] Radiology (Internal) [address] [place] [address] (Work Place) Results Lab Results Date Name Specimen Result Interpretation Description Value Range Status Address ? 11/12/2020 CBC W/ BLD ? Wbc 7.9 10*3/uL 5.0-10.0 Final [place] Auto Diff 10*3/uL [facility] Hospital L ab (Internal) : [address] ? ? BLD High Rbc 5.33 10*6/uL 4.10-5.30 Final N orth 10*6/uL [facility] L ab (Internal) : [address] ? ? BLD ? Hgb 14.9 g/dL 12.0-16.[address] (Internal[facility] : [address] ? ? BLD ? Hct 47.0 % 37.0-47.0 Final [facility] L ab (Internal) : [address] ? ? BLD ? Mcv 88.2 fL 80.0-96.0 Final [facility] L ab (Internal) : [address] ? ? BLD ? Mch 28.0 pg 26.0-32.0 Final [facility] L ab (Internal) : [address] ? ? BLD ? Mchc 31.7 g/dL 31.0-35.[address] [facility] L ab (Internal) : [address] ? ? BLD ? Rdw 11.9 % 11.5-14.5 Final [facility] L ab (Internal) : [address] ? ? BLD ? Plt 267 10*3/uL 130-450 Final Nort h 10*3/uL [facility] L ab (Internal) : [address] ? ? BLD ? Anc 5.22 10*3/uL ? Final Nort [facility] L ab (Internal) : [address] ? ? BLD ? Nlr 2.93 0.00-3.20 Final [facility] : [address] ? ? BLD ? Neutro 65.9 % 40.0-75.0 Final [facility] ([facility] : [address] ? ? BLD ? Lymph 22.4 % 20.0-50.0 Final [facility] (Internal[facility] : [address] ? ? BLD ? Emmet 6.4 % 2.0-10.0 Final [facility] (Internal[facility] : [address] ? ? BLD ? Eos 4.2 % 1.0-6.0 % Final [facility] Hospital L ab (Internal) : [address] ? ? BLD ? Baso 0.5 % 0.0-1.0 % Final [facility] Hospital L ab (Internal) : [address] ? ? BLD ? Ig 0.6 % 0.0-0.9 % Final [facility] Hospital L ab (Internal) : [address] 11/12/2020 CMP, S High g/r 112 mg/dL 74-106 Final Nor th Serum or mg/dL [facility] (Internal) : [address] ? ? S High Bun 21 mg/dL 7-17 Final [facility] mg/dL [facility] (Internal) : [address] ? ? S ? Crea 0.60 mg/dL 0.52-1.04 Final Nor th mg/dL [facility] (Internal) : [address] ? ? S ? Ca 9.3 mg/dL 8.4-10.2 Final [facility] mg/dL [facility] (Internal) : [address] ? ? S ? Na 141 mmol/L 137-145 Final [facility] mmol/L [facility] (Internal) : [address] ? ? S ? K 4.5 mmol/L 3.5-5.1 Final [facility] mmol/L [facility] (Internal) : [address] ? ? S ? Cl 102 mmol/L 98-107 Final [facility] mmol/L [facility] (Internal) : [address] ? ? S High Tco2 32.0 mmol/L 22.0-30.0 Final No rth mmol/L [facility] Hospital L ab (Internal) : [address] ? ? S ? Tp 7.3 g/dL 6.3-8.2 Final [place] g/dL [facility] L ab (Internal) : [address] ? ? S ? Alb 4.3 g/dL 3.5-5.0 Final [place] g/dL [facility] L ab (Internal) : [address] ? ? S ? Tbil 0.5 mg/dL 0.2-1.3 Final [place] mg/dL [facility] L ab (Internal) : [address] ? ? S ? Alp 76 U/L 38-126 Final [place] U/L [facility] L ab (Internal) : [address] ? ? S ? Alt 16 U/L 9-52 U/L Final [place] (Sgpt) [facility] L [facility] (Internal) : [address] ? ? S ? Ast 23 U/L 14-36 U/L Final [place] (Sgot) [facility] L [facility] (Internal) : [address] 11/12/2020 D-dimer, PLASMA High Dimq 0.55 mg/L 0.00-0.50 Final [place] Quant, mg/L [facility] L ab (Internal) : [address] 11/12/2020 BNP S ? Nt-prob 353 pg/mL 0-450 Final N orth (B-type head inspector and center marker pg/mL [facility] ic (Internal) : Peptide), [address] [facility] e N-termina l, Quant, Immunoass ay, Blood 11/12/2020 Troponin S ? Trop <0.06 NG/mL 0.00-0.06 Fin al [place] I, Serum NG/mL [facility] Lab (Internal) : [address] 10/01/2020 Culture UR ? Final microbiology ? Final [place] ([place] results Country Count), Hospital Lab Urine (Internal) : [address] 08/20/2020 Culture UR ? Final microbiology ? Final [place] ([place] results Country Count), Hospital Lab Urine (Internal) : [address] 08/20/2020 Cytology, TISS ? Report results ? Final N orth Non-gynec scanned into C ountry ological, [facility] Lab Unspecifi (Triage Specialist al): ed [address] 08/20/2020 Urinalysi Urine ? Color Taina ? ? P_u rology: s, clean [address], catch [address], Micro [place] ? ? Urine ? Appeara Slightly ? ? P_urol ogy: clean nce Cloudy [address] catch [employer], [place] ? ? Urine ? Glucose Normal ? ? P_urolog y: clean [address] catch [employer], [place] ? ? Urine ? Bilirub Negative ? ? P_urol ogy: clean in [address] catch [employer], [place] ? ? Urine ? Ketones Negative ? ? P_urol ogy: clean [address], [place] ? ? Urine ? Specifi 1.030 ? ? P_urolog y: clean c [address] catch [place] [employer], [place] ? ? Urine ? Blood Small ? ? P_urology: clean [address] catch [address], [place] ? ? Urine ? Ph 5.0 ? ? P_urology: clean [address] catch [employer], [place] ? ? Urine ? Protein Trace ? ? P_urolog y: clean [address] catch [employer], [place] ? ? Urine ? Urobili 1 ? ? P_urolog y: clean nogen [address] catch [employer], [place] ? ? Urine ? Nitrite positive ? ? P_urol ogy: clean [address] catch [employer], [place] ? ? Urine ? Leukocy Negative ? ? P_urol ogy: clean te [address], [place] 07/23/2020 Bladder ? Date 07/23/2020 ? ? P _urology: Scan and Time 9:45 am 41 Medi mike (PROC) [facility] [employer], [place] ? ? ? Amount 50 ml ? ? P_urology : in [address] Medical Bladder [employer], [place] 07/23/2020 Urinalysi Urine ? Color Taina ? ? P_u rology: s, clean [address], catch [address], Micro [place] ? ? Urine ? Appeara Clear ? ? P_urolog y: clean nce [address], [place] ? ? Urine ? Glucose 100 ? ? P_urolog y: clean [address], [place] ? ? Urine ? Bilirub Negative ? ? P_urol ogy: clean in [address], [place] ? ? Urine ? Ketones Negative ? ? P_urol ogy: clean [address], [place] ? ? Urine ? Specifi 1.025 ? ? P_urolog y: clean c [address] [place] [address], [place] ? ? Urine ? Blood Moderate ? ? P_urolog y: clean [address], [place] ? ? Urine ? Ph 5.0 ? ? P_urology: clean [address], [place] ? ? Urine ? Protein Negative ? ? P_urol ogy: clean [address], [place] ? ? Urine ? Urobili 1 ? ? P_urolog y: clean nogen [address] catch [facility] [employer], [place] ? ? Urine ? Nitrite positive ? ? P_urol ogy: clean [address], [place] ? ? Urine ? Leukocy Negative ? ? P_urol ogy: clean te [address] catch Esterase [employer], [place] 09/21/2019 Calcium, UR - Vol, 825 mL ? Final Nort h 24-Hour 24HR U [facility] Hospital L ab (Internal) : [address] ? ? UR - Ca, U 16.8 mg/dL 2.0-18.0 Final Nort h mg/dL [facility] Hospital L ab (Internal) : [address] ? ? UR - Ca, 139 mg/24HR 100-300 Final Nort h 24HR U mg/24HR [facility] Hospital L ab (Internal) : [address] 08/27/2019 Urinalysi UR ABNORM UA-colo orange pale Final N orth s, AL r yellow [facility] Lab (Internal) : [address] ? ? UR ABNORM UA-appe cloudy clear Final [place] [facility] Hospital L ab (Internal) : [address] ? ? UR - UA-WBC 0-3 [hpf] 0-3 [hpf] Final [facility] Hospital L ab (Internal) : [address] ? ? UR ABNORM UA-RBC 5-10 [hpf] 0-2 [hpf] Corrected [facility] Hospital L ab (Internal) : [address] ? ? UR - UA-bact rare [hpf] none seen Final N orth eria [hpf] [facility] ab (Internal) : [address] ? ? UR ABNORM UA-epit few [hpf] none seen Final No rth AL helial [hpf] [facility] ab (Internal) : [address] ? ? UR ABNORM UA-mucu few [hpf] none seen Final No rth AL s [hpf] [facility] ab (Internal) : [address] 08/27/2019 Culture UR - Final microbiology ? Final [place] ([place] results Country Count), Hospital Lab Urine (Internal) : [address] 08/27/2019 Urinalysi UR ABNORM UA-colo orange pale Final N orth s, AL r yellow [facility] Hospital Lab (Internal) : [address] ? ? UR ABNORM UA-appe cloudy clear Final [facility] ab (Internal) : [address] ? ? UR - UA-WBC 0-3 [hpf] 0-3 [hpf] Final Nor [facility] ab (Internal) : [address] ? ? UR ABNORM UA-RBC 3-5 [hpf] 0-2 [hpf] Final Nor [facility] ab (Internal) : [address] ? ? UR - UA-bact rare [hpf] none seen Final N orth eria [hpf] [facility] ab (Internal) : [address] ? ? UR ABNORM UA-epit few [hpf] none seen Final No rth AL helial [hpf] [facility] ab (Internal) : [address] ? ? UR ABNORM UA-mucu few [hpf] none seen Final No rth AL s [hpf] [facility] ab (Internal) : [address] 03/24/2019 BMP, S - g/r 87 mg/dL 74-106 Final Nort h Serum or mg/dL [facility] L ab (Internal) : [address] ? ? S High Bun 23 mg/dL 7-17 Final [facility] mg/dL [facility] L [facility] (Internal) : [address] ? ? S - Crea 0.60 mg/dL 0.52-1.04 Final Nor th mg/dL [facility] L ab (Internal) : [address] ? ? S - Ca 9.5 mg/dL 8.4-10.2 Final [facility] mg/dL [facility] L ab (Internal) : [address] ? ? S - Na 139 mmol/L 137-145 Final [place] mmol/L [facility] Hospital L ab (Internal) : [address] ? ? S - K 4.4 mmol/L 3.5-5.1 Final [place] mmol/L [facility] Hospital L ab (Internal) : [address] ? ? S - Cl 107 mmol/L 98-107 Final [place] mmol/L [facility] Hospital L ab (Internal) : [address] ? ? S - Tco2 26.0 mmol/L 22.0-30.0 Final No rth mmol/L [facility] L [facility] (Internal) : [address] 03/24/2019 Magnesium S - mg 2.1 mg/dL 1.6-2.3 Final North , QN, mg/dL [facility] Lab Plasma (Internal) : [address] 03/12/2019 Culture UR - Final microbiology ? Final [place] ([place] results Country Count), Hospital Lab Urine (Internal) : [address] 03/12/2019 Urinalysi UR ABNORM UA-colo orange pale Final N orth s, AL r yellow [facility] Lab (Internal) : [address] ? ? UR - UA-appe clear clear Final [facility] Hospital L ab (Internal) : [address] ? ? UR - UA-WBC 0-3 [hpf] 0-3 [hpf] Final Nor [facility] L [facility] (Internal) : [address] ? ? UR - UA-RBC 0-2 [hpf] 0-2 [hpf] Final Nor [facility] Hospital L ab (Internal) : [address] ? ? UR - UA-bact rare [hpf] none seen Final Dioni munoz eria [hpf] [facility] Hospital L ab (Internal) : [address] ? ? UR - UA-epit rare [hpf] none seen Final Dioni munoz markial [hpf] [facility] Hospital L ab (Internal) : [address] ? ? UR ABNORM UA-mucu rare [hpf] none seen Final N alexander AL s [hpf] [facility] Hospital L ab (Internal) : [address] 09/11/2018 Culture, SPT - Final microbiology ? Final [place] Sputum results [facility] Hospital L ab (Internal) : [address] 09/07/2018 T3, Free, S - T3, 5.0 pg/mL 2.8-5.3 Final [place] Serum or Free pg/mL [facility] Plasma Hospital L ab (Internal) : [address] 09/07/2018 TSH, S Low Tsh <0.05 0.47-4.68 Final [facility] Serum or u[IU]/mL u[IU]/mL Coun [facility] Plasma Hospital L ab (Internal) : [address] 09/07/2018 T4, Free, S - Ft4 1.43 NG/dL 0.78-2.19 Fin al [place] Serum NG/dL [facility] Hospital L ab (Internal) : [address] 05/16/2018 Culture UR - Final microbiology ? Final [place] ([place] results Country Count), Hospital Lab Urine (Internal) : [address] 05/16/2018 Urinalysi UR - UA-colo dark yellow pale Fin [facility] s, r yellow [facility] Lab (Internal) : [address] ? ? UR ABNORM UA-appe hazy clear Final [place] AL [facility] Hospital L ab (Internal) : [address] ? ? UR - UA-spec 1.025 1.003-1.0 Final [place] Grav 35 [facility] Hospital L ab (Internal) : [address] ? ? UR - UA-pH 5.5 [pH] 4.6-8.0 Final [facility] [pH] [facility] L ab (Internal) : [address] ? ? UR - UA-leuk negative negative Final Nort h Est [facility] ab (Internal) : [address] ? ? UR - UA-nitr negative negative Final Nort h ite [facility] ab (Internal) : [address] ? ? UR - UA-prot negative negative Final Nort h [facility] ab (Internal) : [address] ? ? UR - UA-gluc negative negative Final Nort h [facility] ab (Internal) : [address] ? ? UR - UA-keto negative negative Final Nort h ne [facility] ab (Internal) : [address] ? ? UR - UA-urob normal normal Final North il [facility] ab (Internal) : [address] ? ? UR - UA-bili negative negative Final Nort h [facility] ab (Internal) : [address] ? ? UR ABNORM UA-bloo small negative Final North AL d [facility] ab (Internal) : [address] ? ? UR - UA-WBC 0-3 [hpf] 0-3 [hpf] Final Nor th [facility] ab (Internal) : [address] ? ? UR - UA-RBC 0-2 [hpf] 0-2 [hpf] Final Nor [facility] ab (Internal) : [address] ? ? UR ABNORM UA-bact few [hpf] none seen Final No rth AL eria [hpf] [facility] ab (Internal) : [address] ? ? UR - UA-epit rare [hpf] none seen Final N orth helial [hpf] [facility] ab (Internal) : [address] ? ? UR ABNORM UA-mucu moderate none seen Final Nor th AL s [hpf] [hpf] [facility] ab (Internal) : [address] 04/13/2018 Culture, SPT - Final microbiology ? Final North Sputum results [facility] ab (Internal) : [address] 03/27/2018 Rapid THRT - Final microbiology ? Final [place] Strep results [facility] Lab Throat (Internal) : [address] 03/27/2018 CBC W/ BLD - Wbc 9.2 10*3/uL 5.0-10.0 Final [place] Auto Diff 10*3/uL [facility] Hospital L ab (Internal) : [address] ? ? BLD - Rbc 5.04 10*6/uL 4.10-5.30 Final N orth 10*6/uL [facility] Hospital L ab (Internal) : [address] ? ? BLD - Hgb 14.3 g/dL 12.0-16.0 Final Nort h g/dL [facility] Hospital L ab (Internal) : [address] ? ? BLD - Hct 44.8 % 37.0-47.0 Final [facility] L ab (Internal) : [address] ? ? BLD - Mcv 88.9 fL 80.0-96.0 Final [facility] Hospital L ab (Internal) : [address] ? ? BLD - Mch 28.4 pg 26.0-32.0 Final [facility] Hospital L ab (Internal) : [address] ? ? BLD - Mchc 31.9 g/dL 31.0-35.0 Final Nort h g/dL [facility] Hospital L ab (Internal) : [address] ? ? BLD - Rdw 12.5 % 11.5-14.[address] [facility] Hospital L ab (Internal) : [address] ? ? BLD - Plt 249 10*3/uL 130-450 Final Nort h 10*3/uL [facility] Hospital L ab (Internal) : [address] ? ? BLD - Anc 5.72 10*3/uL ? Final Nort h [facility] Hospital L ab (Internal) : [address] ? ? BLD - Neutro 62.5 % 40.0-75.0 Final [facility] L ab (Internal) : [address] ? ? BLD - Lymph 25.7 % 20.0-50.0 Final [facility] L ab (Internal) : [address] ? ? BLD - Emmet 8.4 % 2.0-10.0 Final North % [facility] [address] ? ? BLD - Eos 2.7 % 1.0-6.0 % Final [facility] (Internal) : [address] ? ? BLD - Baso 0.4 % 0.0-1.0 % Final [facility] (Internal) : [address] ? ? BLD - Ig 0.3 % 0.0-0.9 % Final [facility] (Internal) : [address] 03/27/2018 CMP, S - g/r 91 mg/dL 74-106 Final Nort h Serum or mg/dL [facility] ([facility] : [address] ? ? S High Bun 25 mg/dL 7-17 Final North mg/dL [facility] L [facility] (Internal) : [address] ? ? S - Crea 0.70 mg/dL 0.52-1.04 Final Nor th mg/dL [facility] : [address] ? ? S - Ca 9.6 mg/dL 8.4-10.2 Final North mg/dL [facility] (Internal) : [address] ? ? S - Na 141 mmol/L 137-145 Final North mmol/L [facility] (Internal) : [address] ? ? S - K 4.4 mmol/L 3.5-5.1 Final [facility] mmol/L [facility] : [address] ? ? S - Cl 104 mmol/L 98-107 Final [facility] mmol/L [facility] (Internal) : [address] ? ? S - Tco2 29.0 mmol/L 22.0-30.0 Final No rth mmol/L [facility] : [address] ? ? S - Tp 7.4 g/dL 6.3-8.2 Final [facility] g/dL [facility] (Internal) : [address] ? ? S - Alb 4.3 g/dL 3.5-5.0 Final [place] g/dL [facility] (Internal) : [address] ? ? S - Tbil 0.4 mg/dL 0.2-1.3 Final [place] mg/dL [facility] (Internal) : [address] ? ? S - Alp 71 U/L 38-126 Final [place] U/L [facility] (Internal) : [address] ? ? S - Alt 28 U/L 9-52 U/L Final [place] (Sgpt) [facility] (Internal) : [address] ? ? S - Ast 21 U/L 14-36 U/L Final [place] (Sgot) [facility] (Internal) : [address] 03/17/2018 CBC W/ BLD High Wbc 12.2 10*3/uL 5.0-10.0 Final [place] Auto Diff 10*3/uL [facility] (Internal) : [address] ? ? BLD High Rbc 5.38 10*6/uL 4.10-5.30 Final N orth 10*6/uL [facility] (Internal) : [address] ? ? BLD - Hgb 15.2 g/dL 12.0-16.0 Final Nort h g/dL [facility] (Internal) : [address] ? ? BLD High Hct 47.6 % 37.0-47.0 Final [place] % [facility] (Internal) : [address] ? ? BLD - Mcv 88.5 fL 80.0-96.0 Final [place] fL [facility] (Internal) : [address] ? ? BLD - Mch 28.3 pg 26.0-32.0 Final [place] pg [facility] (Internal) : [address] ? ? BLD - Mchc 31.9 g/dL 31.0-35.0 Final Nort h g/dL [facility] : [address] ? ? BLD - Rdw 12.4 % 11.5-14.5 Final [place] % [facility] (Internal) : [address] ? ? BLD - Plt 293 10*3/uL 130-450 Final Nort h 10*3/uL [facility] (Internal) : [address] ? ? BLD - Anc 8.31 10*3/uL ? Final Nort h [facility] (Internal) : [address] ? ? BLD - Neutro 68.0 % 40.0-75.0 Final [place] % [facility] (Internal) : [address] ? ? BLD - Lymph 22.2 % 20.0-50.0 Final [place] % [facility] (Internal) : [address] ? ? BLD - Emmet 6.8 % 2.0-10.[address] [facility] L ab (Internal) : [address] ? ? BLD - Eos 2.3 % 1.0-6.0 % Final [facility] (Internal) : [address] ? ? BLD - Baso 0.4 % 0.0-1.0 % Final [facility] (Internal) : [address] ? ? BLD - Ig 0.3 % 0.0-0.9 % Final [facility] (Internal) : [address] 03/17/2018 CMP, S - g/r 98 mg/dL 74-106 Final Nort h Serum or mg/dL [facility] ([facility] : [address] ? ? S High Bun 24 mg/dL 7-17 Final [place] mg/dL [facility] (Internal) : [address] ? ? S - Crea 0.60 mg/dL 0.52-1.04 Final Nor th mg/dL [facility] (Internal) : [address] ? ? S - Ca 10.0 mg/dL 8.4-10.2 Final Nort h mg/dL [facility] (Internal) : [address] ? ? S - Na 141 mmol/L 137-145 Final North mmol/L [facility] (Internal) : [address] ? ? S - K 4.3 mmol/L 3.5-5.1 Final [place] mmol/L [facility] (Internal) : [address] ? ? S - Cl 103 mmol/L 98-107 Final [place] mmol/L [facility] (Internal) : [address] ? ? S - Tco2 29.0 mmol/L 22.0-30.0 Final No rth mmol/L [facility] : [address] ? ? S - Tp 7.6 g/dL 6.3-8.2 Final [place] g/dL [facility] (Internal) : [address] ? ? S - Alb 4.5 g/dL 3.5-5.0 Final [place] g/dL [facility] (Internal) : [address] ? ? S - Tbil 0.4 mg/dL 0.2-1.3 Final [place] mg/dL [facility] (Internal) : [address] ? ? S - Alp 85 U/L 38-126 Final [place] U/L [facility] (Internal) : [address] ? ? S - Alt 26 U/L 9-52 U/L Final [place] (Sgpt) [facility] (Internal) : [address] ? ? S - Ast 25 U/L 14-36 U/L Final [place] (Sgot) [facility] (Internal) : [address] 03/17/2018 TSH, S Low Tsh <0.05 0.47-4.68 Final Nor th Serum or u[IU]/mL u[IU]/mL [facility] (Internal) : [address] 12/13/2017 Venipunct BLD ? Venpn* ? ? Final No rth ure [facility] (Internal) : [address] 12/13/2017 BMP, PLASMA ? g/r 101 mg/dL 74-106 Final Nor th Serum or mg/dL [facility] (Internal) : [address] ? ? PLASMA High Bun 19 mg/dL 7-17 Final [place] mg/dL [facility] (Internal) : [address] ? ? PLASMA ? Crea 0.60 mg/dL 0.52-1.04 Final Nor th mg/dL [facility] (Internal) : [address] ? ? PLASMA ? Ca 9.7 mg/dL 8.4-10.2 Final [place] mg/dL [facility] (Internal) : [address] ? ? PLASMA ? Na 141 mmol/L 137-145 Final [place] mmol/L [facility] (Internal) : [address] ? ? PLASMA ? K 4.7 mmol/L 3.5-5.1 Final [place] mmol/L [facility] (Internal) : [address] ? ? PLASMA ? Cl 102 mmol/L 98-107 Final [place] mmol/L [facility] L ab (Internal) : [address] ? ? PLASMA ? Tco2 30.0 mmol/L 22.0-30.0 Final No rth mmol/L [facility] (Internal) : [address] 12/13/2017 CBC W/ BLD ? Wbc 6.6 10*3/uL 5.0-10.0 Final [place] Auto Diff 10*3/uL [facility] L [facility] (Internal) : [address] ? ? BLD ? Rbc 5.26 10*6/uL 4.10-5.30 Final N orth 10*6/uL [facility] (Internal) : [address] ? ? BLD ? Hgb 14.7 g/dL 12.0-16.0 Final Nort h g/dL [facility] (Internal) : [address] ? ? BLD ? Hct 46.3 % 37.0-47.0 Final [place] % [facility] (Internal) : [address] ? ? BLD ? Mcv 88.0 fL 80.0-96.0 Final [facility] L ab (Internal) : [address] ? ? BLD ? Mch 27.9 pg 26.0-32.0 Final [facility] L [facility] (Internal) : [address] ? ? BLD ? Mchc 31.7 g/dL 31.0-35.[address] [facility] (Internal) : [address] ? ? BLD ? Rdw 12.4 % 11.5-14.5 Final [facility] L ab (Internal) : [address] [place] ? ? BLD ? Plt 242 10*3/uL 130-450 Final Nort h 10*3/uL [facility] L [facility] (Internal) : [address] ? ? BLD ? Anc 4.10 10*3/uL ? Final Nort [facility] L ab (Internal) : [address] ? ? BLD ? Neutro 62.3 % 40.0-75.0 Final [facility] L ab (Internal) : [address] ? ? BLD ? Lymph 25.0 % 20.0-50.0 Final [facility] L ab (Internal) : [address] [place] ? ? BLD ? Emmet 8.7 % 2.0-10.0 Final [facility] L ab (Internal) : [address] ? ? BLD ? Eos 3.2 % 1.0-6.0 % Final [facility] L ab (Internal) : [address] [place] ? ? BLD ? Baso 0.5 % 0.0-1.0 % Final [facility] L ab (Internal) : [address] ? ? BLD ? Ig 0.3 % 0.0-0.9 % Final [facility] L ab (Internal) : [address] 12/10/2017 Venipunct BLD ? Venpn* ? ? Final No rth [facility] L ab (Internal) : [address] 12/10/2017 Creatinin S ? Crea 0.60 mg/dL 0.52-1.04 Fin al [place] e, Serum mg/dL [facility] (Internal) : [address] 09/23/2017 Culture, SPT ? Final microbiology ? Final [place] Sputum results [facility] : [address] 06/22/2017 Venipunct BLD ? Venpn* ? ? Final No rth ure [facility] ([facility] : [address] 06/22/2017 [facility] ? [id number] see below ? Final No rth Refrigera 06/29/2017 Cou ntry te 03:06 pm Hospital Lab (Internal) : [address] 06/22/2017 Extractab S ? ss-A/RO <0.2 U <1.0 Final N orth le Ab, IgG, (negative Count ry Nuclear S ) U Hospital Lab Ab, QN, (Internal ): Serum [address] ? ? S ? ss-B/la <0.2 U <1.0 Final [place] Ab, IgG, (negative Count ry S ) [facility] L ab (Internal) : [address] ? ? S ? Sm Ab, <0.2 U <1.0 Final [place] IgG, S (negative Country ) [facility] (Internal) : [address] ? ? S ? Sueding Machine Operator Ab, 0.2 U <1.0 Final [place] IgG, S (negative Country ) [facility] (Internal) : [address] ? ? S ? Scl 70 <0.2 U <1.0 Final [place] Ab, IgG, (negative Count ry S ) [facility] (Internal) : [address] ? ? S ? Barbie 1 <0.2 U <1.0 Final [place] Ab, IgG, (negative Count ry S ) [facility] L [facility] (Internal) : [address] 06/22/2017 Dsdna Ab, S ? DNA Ds sent to ? Final N orth Igg, Qn, Ab IgG reference Count ry Serum lab [IU]/mL Hospi j[facility] Lab (Internal) : [address] 05/31/2017 Culture, UR ? Final microbiology ? Final [place] Urine results [facility] (Internal) : [address] [place] 05/31/2017 Urinalysi UR ? UA-colo yellow pale Final N orth s, r yellow Country [facility] Lab (Internal) : [address] [place] ? ? UR ? UA-appe clear clear Final [facility] ab (Internal) : [address] ? ? UR ? UA-spec 1.025 1.003-1.0 Final North Grav 35 [facility] L ab (Internal) : [address] ? ? UR ? UA-pH 5.5 [pH] 4.6-8.0 Final [place] [pH] [facility] L ab (Internal) : [address] [place] [address] ? ? UR ? UA-leuk negative negative Final Nort h Est [facility] ab (Internal) : [address] ? ? UR ? UA-nitr negative negative Final Nort h ite [facility] ab (Internal) : [address] [place] [address] ? ? UR ? UA-prot negative negative Final Nort h [facility] ab (Internal) : [address] [place] [address] ? ? UR ? UA-gluc negative negative Final Nort h [facility] ab (Internal) : [address] ? ? UR ? UA-keto negative negative Final Nort h ne [facility] ab (Internal) : [address] ? ? UR ? UA-urob normal normal Final [facility] ab (Internal) : [address] ? ? UR ? UA-bili negative negative Final Nort h [facility] ab (Internal) : [address] ? ? UR ABNORM UA-bloo moderate negative Final Nort h AL d [facility] ab (Internal) : [address] ? ? UR ? UA-WBC 0-3 [hpf] 0-3 [hpf] Final [facility] ab (Internal) : [address] ? ? UR ? UA-RBC 0-2 [hpf] 0-2 [hpf] Final [facility] ab (Internal) : [address] ? ? UR ABNORM UA-bact few [hpf] none seen Final No rth AL eria [hpf] [facility] ab (Internal) : [address] ? ? UR ABNORM UA-epit few [hpf] none seen Final No rth AL helial [hpf] [facility] ab (Internal) : [address] ? ? UR ? UA-mucu none seen none seen Final No rth s [hpf] [hpf] [facility] ab (Internal) : [address] 03/01/2017 Venipunct BLD ? Venpn* ? ? Final No rth ure [facility] ab (Internal) : [address] 03/01/2017 Glucose, S ? Fbs 98 mg/dL 74-106 Final No rth Fasting, mg/dL [facility] Serum/[facility] Lab sma (Internal) : [address] 02/01/2017 Culture, UR ? Final microbiology ? Final [place] Urine results [facility] ab (Internal) : [address] 02/01/2017 Urinalysi UR ? UA-colo yellow pale Final N orth s, r yellow Country [facility] Lab (Internal) : [address] ? ? UR ? UA-appe clear clear Final [facility] ab (Internal) : [address] ? ? UR ? UA-spec 1.010 1.003-1.0 Final [place] Grav 35 [facility] ab (Internal) : [address] ? ? UR ? UA-pH 6.5 [pH] 4.6-8.0 Final [place] [pH] [facility] L ab (Internal) : [address] ? ? UR ? UA-leuk negative negative Final Nort h Est [facility] ab (Internal) : [address] ? ? UR ? UA-nitr negative negative Final Nort h ite [facility] ab (Internal) : [address] ? ? UR ? UA-prot negative negative Final Nort h [facility] L ab (Internal) : [address] ? ? UR ? UA-gluc negative negative Final Nort h [facility] ab (Internal) : [address] ? ? UR ? UA-keto negative negative Final Nort h ne [facility] ab (Internal) : [address] ? ? UR ? UA-urob normal normal Final North il [facility] ab (Internal) : [address] ? ? UR ? UA-bili negative negative Final Nort h [facility] ab (Internal) : [address] ? ? UR ? UA-bloo negative negative Final Nort h d [facility] ab (Internal) : [address] ? ? UR ? UA-WBC 0-3 [hpf] 0-3 [hpf] Final [facility] ab (Internal) : [address] ? ? UR ? UA-RBC 0-2 [hpf] 0-2 [hpf] Final [facility] ab (Internal) : [address] ? ? UR ABNORM UA-bact few [hpf] none seen Final No rth AL eria [hpf] [facility] (Internal) : [address] ? ? UR ABNORM UA-epit few [hpf] none seen Final No rth AL helial [hpf] [facility] (Internal) : [address] ? ? UR ABNORM UA-mucu few [hpf] none seen Final No rth AL s [hpf] [facility] (Internal) : [address] 11/18/2016 Culture, UR ? Final microbiology ? Final [place] Urine results [facility] (Internal) : [address] Past Encounters 11/12/2020 Tara Rey MD: [address] [place] [address], Ph. 10/08/2020 Overactive Bladder; Urgent Desire to Uri micaela; Bladder Pain; Chronic Interstitial Cystitis; Cystitis Cystica; Incontinence without Sensory Awareness; Microscopic Hematuria; Atrophic Vulvovaginitis; Renal Mass Hermes Bocanegra MD: [address] [place] [address], Ph. 08/20/2020 Overactive Bladder; Bladder Pain; Cystit is Cystica; Pyuria; Urgent Desire to Urinate; Incontinence without Sensory Awareness; Microscopic Hematuria; Atrophic Vulvovaginitis; Renal [place] Hermes Bocanegra MD: [address] [place] [address], Ph. 07/23/2020 Overactive Bladder; Bladder Pain; Chroni c Interstitial Cystitis; Microscopic Hematuria; Atrophic Vulvovaginitis; Recurrent Urinary Tract Infection; Incontinence without Sensory Awareness Hermes Bocanegra MD: [address] [place] [address], Ph. 08/15/2019 Solitary Nodule of Lung; Non-toxic Multi nodular Goiter Shruthi Hussein MD: [address] [place] [address], Ph. Social History Tobacco Smoking Status Former Smoker Notes: quit 20 yrs ago Vaccine List Vaccine Type influenza, injectable, quadrivalent 07/31/2018 07/10/2019 pneumococcal conjugate PCV 13 06/10/2015 pneumococcal polysaccharide PPV23 11/15/2007 Plan of Care Reminders Provider Appointments None ? ? recorded. Lab None ? ? recorded. Referral None ? ? recorded. Procedures None ? ? recorded. Surgeries None ? ? recorded. Imaging None ? ? recorded. Vitals 11/12/2020 09:00AM Consult 45 Height Weight BMI Blood Pressure 167.64 cm 89.9 kg 32 kg/m2 190/107 mm[Hg] 08/20/2020 01:00PM Office 15 Height Blood Pressure 167.64 cm 132/78 mm[Hg] 07/23/2020 09:30AM Office 15 Height Weight Blood Pressure 167.64 cm 142/84 mm[Hg] 08/15/2019 09:45AM Follow Up 30 Height Weight Blood Pressure 167.64 cm 163/85 mm[Hg] 12/06/2018 01:45PM Follow Up 30 Height Weight Blood Pressure 167.64 cm 150/100 mm[Hg] 09/20/2018 02:00PM Follow Up 30 Height Weight Blood Pressure 167.64 cm 122/70 mm[Hg] 04/17/2018 11:30AM Follow Up 30 Height Weight Blood Pressure 167.64 cm 120/64 mm[Hg] 12/01/2017 Height Blood Pressure 167.64 cm 130/80 mm[Hg] 11/30/2017 Height Blood Pressure 167.64 cm 132/84 mm[Hg] 08/10/2017 Height Weight Blood Pressure 167.64 cm 79.38 kg 151/116 mm[Hg] 12/15/2016 Height Weight Blood Pressure 167.64 cm 79.38 kg 126/70 mm[Hg] 01/15/2016 Blood Pressure 126/78 mm[Hg] 11/06/2015 Height Blood Pressure 167.64 cm 160/90 mm[Hg] 11/27/2014 Blood Pressure 128/70 mm[Hg] 08/15/2014 Height Weight Blood Pressure 167.64 cm 79.38 kg 126/68 mm[Hg] 06/26/2014 Height Blood Pressure 167.64 cm 140/80 mm[Hg] 06/13/2014 Blood Pressure 128/70 mm[Hg] 06/11/2014 Height Blood Pressure 167.64 cm 152/74 mm[Hg] 05/29/2014 Blood Pressure 142/74 mm[Hg] 04/24/2014 Height Blood Pressure 167.64 cm 140/84 mm[Hg] 03/21/2014 Height Blood Pressure 167.64 cm 140/80 mm[Hg] 09/20/2013 Blood Pressure 114/72 mm[Hg]
--- NOTE | 2020-11-24 08:19 | PFT_ITS ---
Date of service: 11/21/20 Time of Service: 03:04 Pulmonary Function Test Result Interpretation Spirometry: Very severe obstructive airways disease with some but not significant bronchodilator response Lung Volumes: No evidence of restriction, severe hyperinflation and air trapping Diffusion Capacity: Normal, elevated when corrected to alveolar volume Airway Pressure: Elevated Impression Very severe obstructive airways disease with some but not significant bronchodil ator response, this is associated with severe hyperinflation and air trapping. When corrected to alveolar volume, there is elevated diffusion capacity. That can be seen in asthma, When the study was compared to previous 1 from 06/05/2008, the patient has a stable FEV1 and FVC Clinical Correlation therefore is recommended.
== END 2020-11-21 10:20 | disposition home or self-care (01) ==
LOC: RT 10:22
PROVIDERS: PCP Internal Medicine; Visit Provider Internal Medicine
DX: R06.02 Shortness of breath (principal); R06.09 Other forms of dyspnea; Z87.891 Personal history of nicotine dependence; Z87.09 Personal history of other diseases of the respiratory system
CPT/HCPCS: 94060; 94726; 94729

== ENCOUNTER 2021-01-26 15:24 | Outpatient (REF) | payer MEDICARE, MEDICAID, SELFPAY ==
[2021-01-26 13:15] LABS: Bilirubin Negative (Negative); Blood Trace-lysed (Negative); Clarity Clear (Clear); Glucose Negative (Negative); Ketones Negative (Negative); Leukocyte Esterase Negative (Negative); Nitrite Negative (Negative); Specific Gravity 1.025 (1.005-1.025); Urobilinogen 0.2 EU/dL (Up TO 0.2)
[2021-01-26 13:41] LABS: Bacteria Rare HPF (Negative); C & S Indicated? No; Casts Negative LPF (Negative); Crystals Negative HPF (Negative); Epithelial Cells Few HPF (Negative); Mucus Trace (Negative); RBC 0-2 HPF (0-2); WBC 0-2 HPF (0-5)
== END 2021-01-26 15:25 | disposition home or self-care (01) ==
LOC: NCHCN 15:24
PROVIDERS: PCP Internal Medicine; Visit Provider Internal Medicine
DX: N39.0 Urinary tract infection, site not specified (principal)
CPT/HCPCS: 81003; 81015

== ENCOUNTER → 2021-04-03 11:36 | Outpatient (BNVA) | payer MEDICARE, MEDICAID, SELFPAY | PROVIDERS: PCP Internal Medicine; Referring Provider Internal Medicine; Visit Provider Surgery | DX: K82.8 Other specified diseases of gallbladder (principal); J44.9 Chronic obstructive pulmonary disease, unspecified; Z87.891 Personal history of nicotine dependence | CPT/HCPCS: 99214; 99215 ==

== ENCOUNTER 2021-05-20 22:12 | Outpatient (REF) | payer MEDICARE, MEDICAID, SELFPAY | END 2021-05-20 22:13 | disposition home or self-care (01) | LOC: NCHCN 22:12 | PROVIDERS: PCP Internal Medicine; Visit Provider Internal Medicine | DX: N39.0 Urinary tract infection, site not specified (principal) | CPT/HCPCS: 87086 ==

== ENCOUNTER → 2021-07-28 10:30 | Outpatient (BNVA) | payer MEDICARE, MEDICAID, SELFPAY | PROVIDERS: PCP Internal Medicine; Referring Provider Internal Medicine; Visit Provider Surgery | DX: K82.8 Other specified diseases of gallbladder (principal); J44.9 Chronic obstructive pulmonary disease, unspecified | CPT/HCPCS: 99212; 99214 ==

== ENCOUNTER 2021-07-29 12:28 | Outpatient (REF) | payer MEDICARE, MEDICAID, SELFPAY ==
[2021-07-29 22:36] LABS: FREE T4 1.25 ng/dL (0.76-1.46)
[2021-07-29 22:38] LABS: TSH < 0.01 uIU/mL (0.36-3.74)
[2021-07-30 18:00] LABS: T3, Total 223 ng/dL (97-169)
== END 2021-07-29 12:29 | disposition home or self-care (01) ==
LOC: NCHCN 12:28
PROVIDERS: PCP Internal Medicine; Visit Provider Internal Medicine
DX: E05.90 Thyrotoxicosis, unspecified without thyrotoxic crisis or storm (principal)
CPT/HCPCS: 84439; 84443; 84480

== ENCOUNTER 2022-04-27 17:07 | Outpatient (REF) | payer MEDICARE, MEDICAID, SELFPAY ==
[2022-04-27 19:53] LABS: Bilirubin Negative (Negative); Blood Trace-intact (Negative); Clarity Clear (Clear); Glucose Negative (Negative); Ketones Negative (Negative); Leukocyte Esterase Negative (Negative); Nitrite Negative (Negative); Urobilinogen 0.2 EU/dL (Up TO 0.2)
[2022-04-27 20:11] LABS: Bacteria Negative HPF (Negative); C & S Indicated? C&S Done As Ordered; Crystals Negative HPF (Negative); Epithelial Cells Few HPF (Negative); Mucus Moderate (Negative); WBC Negative HPF (0-5)
== END 2022-04-27 17:08 | disposition home or self-care (01) ==
LOC: NCHCN 17:07
PROVIDERS: PCP Internal Medicine; Visit Provider Internal Medicine
DX: N39.0 Urinary tract infection, site not specified (principal)
CPT/HCPCS: 81003; 81015; 87086

== ENCOUNTER 2022-05-17 19:05 | Outpatient (REF) | payer MEDICARE, MEDICAID, SELFPAY | END 2022-05-17 19:06 | disposition home or self-care (01) | LOC: NCHCN 19:05 | PROVIDERS: PCP Internal Medicine; Visit Provider Internal Medicine | DX: N39.0 Urinary tract infection, site not specified (principal) | CPT/HCPCS: 87086 ==

== ENCOUNTER → 2022-06-18 00:23 | Outpatient (CLI) | payer MEDICARE, MEDICAID, SELFPAY ==
--- NOTE | 2022-06-18 | DI.US_ITS ---
Exam(s) US RENAL EXAM: US RENAL CLINICAL HISTORY: ACUTE UTI, RECURR N39.0. TECHNIQUE: Escobar scale, color and spectral Doppler were used. COMPARISON: US US RENAL (ONLY) from 03/24/2018 FINDINGS: Renal size in cm: Right: 11.2. Left: 10.8. Echogenicity: Normal. Hydronephrosis: No. Cyst or mass: There are 2 simple cysts seen in the upper pole of the left kidney. The larger measure s 5.5 x 4.7 x 5.7 cm. The smaller measures 2.3 x 1.7 x 2.0 cm. Nephrolithiasis: No. Other findings: None. Bladder:There is a 2.1 x 0.7 x 2.0 cm echogenic mass along the anterior wall of the urinary bladder. Ureteral jets: Right: Not visualized on this examination. Left: Not visualized on this examination. Prevoid vol:96 cc Postvoid vol:0 cc Renal color flow: Symmetric and within normal limits. IMPRESSION: 1. 2.1 x 0.7 x 2.0 cm echogenic mass seen long the anterior wall of the urinary bladder. Neoplasm can not be excluded. Further evaluation with cystoscopy or or CT urography should be considered in this p atient. 2. Stable simple left renal cysts. DATA REPOSITORY:
--- OUTSIDE RECORDS SUMMARY | 2022-06-18 00:25 | XMS_ITS | Encounter Summary ---
:1940 Author Organization [facility] Address [address] [place] [address] Care Team Providers Name Role Phone Campos Lopes MD Primary Care Provider Reason for Visit Reason Onset Date Comments Pharmacy 01/04/2022 Encounter Details Date Type Department Care Team Description 01/04/2022 Orders Only [facility] [place] [facility] [place]ier [place] [facility] [address] [place], [place] [id number] [place] [phone] (Wo rk) Social History Tobacco Use Types Packs/Day Years Used Date Former Smoker 1 32 Smokeless Tobacco: Never Used Comments: late Alcohol Use Standard Drinks/Week Comments Yes 0 (1 standard drink = 0.6 oz pure alcoho l) 2/monthly Alcohol Habits Answer Date Recorded How often do you have a drink containing alcohol? Not asked How many drinks containing alcohol do you have on a typical Not asked day when you are drinking? How often do you have six or more drinks on one occasion? No t asked Comment: 2/monthly 02/17/2021 Sex Assigned at Date Recorded Not on file documented as of this encounter Functional Status Functional Status Response Date of Assessment Because of a physical, mental, or emotional condition, Yes 07/11/2017 does this person have difficulty doing errands alone such as visiting a doctor's office or shopping? Cognitive Status Response Date of Assessment Because of a physical, mental, or emotional condition, No 07/11/2017 does this person have serious difficulty concentrating, remembering, or making decisions? documented as of this encounter Progress Notes Ilya Ferro MA - 01/04/2022 1506 EDT Please send electronic prescription for the bar cocktail to [facility]; 20 ml / 5 % bupvicane 10 ml / 10,000 units Heparin 40 ml / 8.4 % Sodium bicarbonate 100 mg hydrocortisone They need dose & quanity of refills as well as directions. documented in this encounter Plan of Treatment Not on filedocumented as of this encounter Visit Diagnoses Not on filedocumented in this encounter Care Teams Lavatory Attendant Relationship Specialty Start Date End Date Campos Lopes MD PCP - General 05/21/09 [address] [place] [address] documented as of this encounter
--- OUTSIDE RECORDS SUMMARY | 2022-06-18 00:25 | XMS_ITS | Encounter Summary ---
:1940 Author Organization [facility] Address [address] [place] [address] Care Team Providers Name Role Phone Campos Lopes MD Primary Care Provider Reason for Visit Reason Onset Date Comments Cystoscopy 11/23/2021 Encounter Details Date Type Department Care Team Description 11/23/2021 Telephone [facility] John Lanier MD Cystoscopy Urology [facility] [address] [place] [address] [place] [phone] (Wo rk) Social History Tobacco Use Types [...] making decisions? documented as of this encounter Miscellaneous Notes Telephone Encounter - Mae Sanford - 11/23/2021 1252 EST Rescheduled Telephone Encounter - Ilya Ferro MA - 11/23/2021 1103 EST Left message for more details as I don't see anything in her records about recent UTI. Telephone Encounter - Mae Sanford - 11/23/2021 0946 EST Patient states she has UTI, and wants to know if that affects tomorrow's cysto? Please advise documented in this encounter Plan of Treatment Not on filedocumented as of this encounter Visit Diagnoses Not on filedocumented in this encounter Care Teams Electronic Assembler Group Leader Relationship Specialty Start Date End Date Campos Lopes MD PCP - General 05/21/09 [address] [place] [address] documented as of this encounter
--- OUTSIDE RECORDS SUMMARY | 2022-06-18 00:25 | XMS_ITS | Encounter Summary ---
:1940 Author Organization [facility] Address [address] [place] [address] Care Team Providers Name Role Phone Campos Lopes MD Primary Care Provider Encounter Details Date Type Department Care Team Description 07/30/2021 Lab Requisition [facility] Outr Resulting Lab, Pathology & Laboratory Provider [facility] [address] [place] [id number] Social History Tobacco Use Types Packs/Day Years [...] making decisions? documented as of this encounter Plan of Treatment Not on filedocumented as of this encounter Procedures Procedure Name Priority Date/Time Associated Diagnosis Comme nts T3, TOTAL Routine 07/29/2021 11:25 EDT Results for this procedure are i n the results section . documented in this encounter Results (ABNORMAL) T3, TOTAL (07/29/2021 11:25 EDT) Pathologist Sig nature T3, Total 223 (H) 97 - 169 ng/dL [facility] Specimen Blood - Venous blood (substance) Performing Organization Address City/State/ZIP Code Phon e Number [facility] [address] [place] [address] SERVICES documented in this encounter Visit Diagnoses Not on filedocumented in this encounter Care Teams Baseball Coach Relationship Specialty Start Date End Date Campos Lopes MD PCP - General 05/21/09 [address] [place], [place] [phone] documented as of this encounter
--- OUTSIDE RECORDS SUMMARY | 2022-06-18 00:25 | XMS_ITS | Encounter Summary ---
:1940 Author Organization [facility] Address [address] [place] [address] Care Team Providers Name Role Phone Campos Lopes MD Primary Care Provider Reason for Visit (Routine) - Receiving Office to Obtain Authorization Specialty Diagnoses / Procedures Referred By Contact Refer red To Contact Procedures Unknown, Provider, NM OUTSIDE IMAGES Referral ID Status Reason Start Expiration Visits Visits Date Date Requested Authorized [id number] Receiving Office 12/06/2020 1 1 to Obtain Authorization Encounter Details Date Type Department Care Team Description 11/19/2020 Hospital Encounter [facility] Secondary Reads [place] Social History Tobacco Use Types Packs/Day Years Used Date Former Smoker 1 32 Quit: 08/19/19 95 Smokeless Tobacco: Never Used Alcohol Use Standard Drinks/Week Comments Yes 0 (1 standard drink = 0.6 oz pure alcoho l) very rare Alcohol Habits Answer Date Recorded How often do you have a drink containing alcohol? Not asked How many drinks containing alcohol do you have on a typical Not asked day when you are drinking? How often do you have six or more drinks on one occasion? No t asked Comment: very rare 08/19/2010 Sex Assigned at Date Recorded Not on [...] making decisions? documented as of this encounter Medications at Time of Discharge Medication Sig Dispensed Refills Start Date End Date albuterol (PROAIR HFA) 90 Inhale 1-2 Puffs 0 mcg/actuation inhaler as directed every 6 hours as needed for Wheezing. Reported on 01/05/2017 atenolol (TENORMIN) 50 mg Take 25 mg by 0 tabletIndications: mouth daily before Hyperthyroidism breakfast. ergocalciferol, vitamin D2, Take 2,000 Units 0 2,000 unit tablet by mouth daily. Twice weekly estradiol (ESTRACE) 0.01 % Place vaginally. 1 Tube 11 (0.1 mg/g) vaginal cream Per vagina 2 x weekly fluticasone-salmeterol Inhale 2 Puffs as directed 2 times daily . 0 (ADVAIR HFA) 230-21 mcg/actuation inhaler gabapentin (NEURONTIN) 100 1 Capsule every 8 0 mg capsule hours. glycopyrrolate-formoteroL BEVESPI AEROSPHERE 0 (BEVESPI AEROSPHERE) 9-4.8 9-4.8 MCG/ACT AERO mcg HFA aerosol inhaler ibuprofen (MOTRIN) 200 mg Take 4 Tabs by 0 tablet mouth every 8 hours as needed for Pain. ipratropium-albuteroL IPRATROPIUM-ALBUTE 0 2019 (DUONEB) 0.5 mg-3 mg(2.5 mg ROL 0.5-2.5 (3) base)/3 mL nebulizer MG/3ML SOLN solution magnesium oxide (MAG-OX) Take 400 mg by 0 400 mg tablet mouth daily before breakfast. Currently taking methylPREDNISolone (MEDROL) MEDROL 4 MG TABS 0 4 mg tablet Multivitamins with Minerals Take 1 Tab by 0 tablet tablet mouth daily. solifenacin (VESICARE) 10 Take 5 mg by mouth 0 mg tablet as needed. losartan (COZAAR) 25 mg Take 25 mg by 0 02/24/2021 tablet mouth daily. Pt states not taking nitrofurantoin, 1 Capsule every 12 0 07/07/2020 0 11/30/2021 macrocrystal-monohydrate, hours. (MACROBID) 100 mg capsule omeprazole (PRILOSEC) 20 mg Take by mouth 0 02/17/2021 capsule daily. Pt does know dose ranitidine (ZANTAC) 150 mg Take 150 mg by 0 09/1402/17/2021 tablet mouth daily before breakfast. documented as of this encounter Discharge Disposition Disposition Code Departure Means Destination Home or Self Care documented in this encounter Plan of Treatment Not on filedocumented as of this encounter Procedures Procedure Name Priority Date/Time Associated Diagnosis Comme nts NM OUTSIDE IMAGES Routine 12/06/2020 8:09 EST Res ults for this procedure are i n the results section. documented in this encounter Results NM OUTSIDE IMAGES (12/06/2020 8:09 EST) Specimen Narrative 12/06/2020 8:09 EST This is a non-reportable exam. documented in this encounter Visit Diagnoses Not on filedocumented in this encounter Care Teams Fullerette Relationship Specialty Start Date End Date Campos Lopes MD PCP - General 05/21/09 [address] [place] [address] documented as of this encounter
--- OUTSIDE RECORDS SUMMARY | 2022-06-18 00:25 | XMS_ITS | Encounter Summary ---
:1940 Author Organization [facility] Address [address] [place] [address] Care Team Providers Name Role Phone Campos Lopes MD Primary Care Provider Encounter Details Date Type Department Care Team Description 01/27/2021 Orders Only [facility] Alan Milton for Gastroenterology - [facility] Arabella Shea preprocedure Coleman [address] [place] [address] screening [address] [place] [address] testing for COVID-19 [place], [place] [phone] [place] [address] (Primary Dx) [phone] Pavilion, [address] [place] [address] Social History Tobacco Use Types Packs/Day Years [...] filedocumented as of this encounter Visit Diagnoses Diagnosis Encounter for preprocedure screening lab oratory testing for COVID-19 - Primary documented in this encounter Care Teams Hand Shaker Relationship Specialty Start Date End Date Campos Lopes MD PCP - General 05/21/09 [address] [place] [address] documented as of this encounter
--- OUTSIDE RECORDS SUMMARY | 2022-06-18 00:25 | XMS_ITS | Encounter Summary ---
:1940 Author Organization [facility] Address [address] [place] [address] Care Team Providers Name Role Phone Campos Lopes MD Primary Care Provider Reason for Visit Reason Onset Date Comments Update 11/03/2021 Encounter Details Date Type Department Care Team Description 11/03/2021 Telephone [facility] Chris Cortes RN Update Urology Clinic [address] [place], [place] [phone] Social History Tobacco Use Types Packs/Day Years [...] this encounter Miscellaneous Notes Telephone Encounter - Marisol Cortes RN - 11/03/2021 6167 EST Attempts made to call patient to let know that Dr Martinez is out of office and would be better suited to answer questions regarding instillation as he has been working with pharmacy to get it. Unable to leave message . Disconnected x 2 documented in this encounter Plan of Treatment Not on filedocumented as of this encounter Visit Diagnoses Not on filedocumented in this encounter Care Teams Medical Genetics Director Relationship Specialty Start Date End Date Campos Lopes MD PCP - General 05/21/09 [address] [place] [address] documented as of this encounter
--- OUTSIDE RECORDS SUMMARY | 2022-06-18 00:25 | XMS_ITS | Encounter Summary ---
:1940 Author Organization [facility] Address [address] [place] [address] Care Team Providers Name Role Phone Campos Lopes MD Primary Care Provider Reason for Referral Consult (See Order Priority) - Specialty Report Received Specialty Diagnoses / Procedures Referred By Contact Refer red To Contact Urology / Pelvic Diagnoses Chronic interstitial cystitis John Martinez, [facility] Pelvic Medicine Medicine [facility] [address] [facility] [address] [place], [place] [phone] Referral ID Status Reason Start Expiration Visits Visits Date Date Requested Authorized [id number] Specialty Specialty 10/22/2021 1 1 Report Services Received Required Question Answer Reason for Request: interstitial cystitis managm ent Reason for Visit Reason Comments New Patient Visit interstitial cystitis Encounter Details Date Type Department Care Team Description 10/22/[address] [facility] - John Martinez rosy interstitial [facility] U[facility] MD Karen cystitis (Primary Dx) [address] [facility] [address] [place] [address] [address] [place] [address] Social History Tobacco Use Types Packs/Day Years [...] documented as of this encounter Progress Notes John Martinez MD - 10/22/2021 1300 EST 10/22/2021 NEW PATIENT CHIEF COMPLAINT New Patient Visit (interstitial cystitis ) PATIENT: Maureen Thomas HISTORY OF PRESENT ILLNESS Maureen Thomas is a very pleasant 81 y.o. female who presents with chronic IC. Pt was diagnosed~12 years ago w/ IC by at [facility], since left the practice. Pt presents with worsening of baseline symptoms. Complains of an ongoing sense of urgency, need to void and ongoing pelvic and pelvic floor pressure. Pt has been on Tovaiz which she uses PRN for bladder spasm, hasn't found it recently helpful and discontinued it's use. No identifiable exacerbating factors; not relieved by heat, NSAIDS or pyridium. feels like someone took a scraper to the urethra No gross hematuria. Just finished 10 days of amoxicillin for UTI. PAST HISTORY Past Medical History: Diagnosis Date ??? Acquired complex renal cyst 07/31/2018 ??? Activity, other involving cardiorespiratory exercise able to climb 1 FOS sometimes; gardening ??? Asthma 11/10/2020 - exercise induced / cold weather; pt denies 02/17/2021 ??? Basal cell carcinoma of skin 10/22/2021 ??? COPD (chronic obstructive pulmonary disease) ([facility]) (HCC) well controlled with inhalers per pt 02/17/2021 ??? Excessive daytime sleepiness 10/22/2021 ??? GERD (gastroesophageal reflux disease) 02/17/2021-- well controlled with meds ??? History of general anesthesia no complications per pt 02/17/2021 ??? Hx of osteoporosis ??? Hypertension well controlled w/med, BP ranges 130-140/80-90 02/17/2021 ??? Hyperthyroidism 02/17/2021--recent TSH w/ PCP; takes atenolol for treatment; no changes per pt 02/16/2021 ??? Multiple thyroid nodules 11/11/20 - see 09/20/2019 Dr. melanie simon ??? Thyroid disease suppressed TSH; nml T4 and T3 ??? Urinary frequency 11/11/2020 pt discribes hyperactive bladder ??? UTI (urinary tract infection) chronic, last UTI last month, resolved with abx per pt 02/16/2021 Past Surgical History: Procedure Laterality Date ??? CARPAL TUNNEL RELEASE Right 201811/11/2020 [place] ??? TONSILLECTOMY Family History Problem Relation Age of Onset ??? Glaucoma Neg Hx ??? Macular Degeneration Neg Hx ??? *Other(comment) Neg Hx ??? Breast Cancer Neg Hx ??? Colon Cancer Neg Hx ??? Colon Polyps Neg Hx ??? Endometrial Cancer Neg Hx ??? Esophageal Cancer Neg Hx ??? Pancreatic Cancer Neg Hx ??? Rectal Cancer Neg Hx ??? Stomach Cancer Neg Hx ??? Ovarian Cancer Neg Hx Social History Tobacco Use ??? Smoking status: Former Smoker Packs/day: 1.00 Years: 32.00 Pack years: 32.00 ??? Smokeless tobacco: Never Used ??? Tobacco comment: late 1980s Substance Use Topics ??? Alcohol use: Yes Comment: 2/monthly ??? Drug use: Never MEDICATIONS Current Outpatient Medications Medication Sig Dispense Refill ??? albuterol (PROAIR HFA) 90 mcg/actuation inhaler Inhale 1-2 Puffs as directed every 6 hours as needed for Wheezing. Reported on 01/05/2017 ??? amoxicillin (AMOXIL) 875 mg tablet AMOXICILLIN 875 MG TABS (Patient not taking: Reported on 10/22/2021) ??? ascorbic acid, vitamin C, 500 mg capsule every 8 hours. ??? atenolol (TENORMIN) 50 mg tablet Take 25 mg by mouth daily before breakfast. ??? azelastine (ASTELIN) nasal spray USE 2 SPRAYS IN EACH NOSTRIL TWICE DAILY NEEDED ??? cephalexin (KEFLEX) 500 mg capsule TAKE 1 CAPSULE BY MOUTH THREE TIMES DAILY (Patient not taking: Reported on 10/22/2021) ??? doxycycline (VIBRA-TABS) 100 mg tablet every 12 hours. (Patient not taking: Reported on 10/22/2021) ??? ergocalciferol, vitamin D2, 2,000 unit tablet Take 2,000 Units by mouth daily. Twice weekly ??? estradiol (ESTRACE) 0.01 % (0.1 mg/g) vaginal cream Place vaginally. Per vagina 2 x weekly (Patient taking differently: Place vaginally as needed. Per vagina 2 x weekly) 1 Tube 11 ??? fexofenadine (PAUL ALLERGY) 180 mg tablet Paul Allergy 180 mg tablet 1 (one) Tablet Tablet: qd - daily 180 mg ??? fluconazole (DIFLUCAN) 150 mg tablet fluconazole 150 mg tablet as needed (Patient not taking: Reported on 10/22/2021) ??? fluticasone propionate (FLONASE) 50 mcg/actuation nasal spray fluticasone propionate 50 mcg/actuation nasal spray,suspension as needed ??? fluticasone-salmeterol (ADVAIR HFA) 230-21 mcg/actuation inhaler Inhale 2 Puffs as directed 2 times daily . (Patient not taking: Reported on 10/22/2021) ??? gabapentin (NEURONTIN) 100 mg capsule 1 Capsule every 8 hours. (Patient not taking: Reported on 10/22/2021) ??? glycopyrrolate-formoteroL (BEVESPI AEROSPHERE) 9-4.8 mcg HFA aerosol inhaler BEVESPI AEROSPHERE 9-4.8 MCG/ACT AERO ??? ibuprofen (MOTRIN) 200 mg tablet Take 4 Tabs by mouth every 8 hours as needed for Pain. ??? ipratropium-albuteroL (DUONEB) 0.5 mg-3 mg(2.5 mg base)/3 mL nebulizer solution IPRATROPIUM-ALBUTEROL 0.5-2.5 (3) MG/3ML SOLN (Patient not taking: Reported on 10/22/2021) ??? levOFLOXacin (LEVAQUIN) 500 mg tablet LEVOFLOXACIN 500 MG TABS (Patient not taking: Reported on 10/22/2021) ??? lidocaine (XYLOCAINE) 2 % jelly lidocaine HCl 2 % mucosal jelly (Patient not taking: Reported on10/22/2021) ??? magnesium oxide (MAG-OX) 400 mg tablet Take 400 mg by mouth daily before breakfast. Currently taking ??? methylPREDNISolone (MEDROL) 4 mg tablet MEDROL 4 MG TABS (Patient not taking: Reported on 10/22/2021) ??? Multivitamins with Minerals tablet tablet Take 1 Tab by mouth daily. ??? nitrofurantoin, macrocrystal-monohydrate, (MACROBID) 100 mg capsule 1 Capsule every 12 hours. (Patient not taking: Reported on 10/22/2021) ??? omeprazole (PRILOSEC) 10 mg capsule Take 20 mg by mouth 2 times daily. ??? phenazopyridine (PYRIDIUM) 100 mg tablet TAKE 1 TABLET BY MOUTH THREE TIMES DAILY ??? QUICKVUE AT-HOME COVID-19 TEST kit Use as directed. (Patient not taking: Reported on 10/22/2021) ??? solifenacin (VESICARE) 10 mg tablet Take 5 mg by mouth as needed. (Patient not taking: Reported on 10/22/2021) ??? SYMBICORT 160-4.5 mcg/actuation HFA aerosol inhaler inhaler INHALE 1 PUFF BY MOUTH TWICE DAILY (Patient not taking: Reported on 10/22/2021) ??? terconazole (TERAZOL 7) 0.4 % vaginal cream terconazole 0.4 % vaginal cream ??? tolterodine (DETROL LA) 4 mg long acting capsule Take by mouth. (Patient not taking: Reported on10/22/2021) ??? TOVIAZ 4 mg ER tablet No current facility-administered medications for this visit. ALLERGIES Allergies Allergen Reactions ??? Dye Anaphylaxis IVP DYE ??? Nitrofurantoin Other (See Comments) ??? Trimethoprim Rash ??? Losartan Other reaction(s): itchiness and redness of eyes ??? Mirabegron Other (See Comments) ??? Amitriptyline ROVING DEPARTMENT SUPERVISOR changes at low dose ??? Ciprofloxacin Other (See Comments) Ectopic heart beats ??? Elmiron [Pentosan Polysulfate Sodium] Unknown To pt ??? Epinephrine tachycardia ??? Iodine And Iodide Containing Products Hives ??? Lisinopril Other reaction(s): Unknown Pt does not recall ??? Methimazole Other (See Comments) unknown ??? Shellfish Derived ??? Cholecalciferol (Vitamin D3) unknown Other reaction(s): nausea ??? Famotidine Other (See Comments) Other reaction(s): stomach upset REVIEW OF SYSTEMS All other systems reviewed and are negative. VITALS There were no vitals filed for this visit. PHYSICAL EXAM Constitutional: Appearance: Normal appearance. HENT: Head: Normocephalic and atraumatic. Right Ear: External ear normal. Left Ear: External ear normal. Nose: Nose normal. Mouth/Throat: Mouth: Mucous membranes are moist. Eyes: Conjunctiva/sclera: Conjunctivae normal. Pulmonary: Effort: Pulmonary effort is normal. Abdominal: General: Abdomen is flat. Tenderness: There is no right CVA tenderness or left CVA tenderness. Neurological: General: No focal deficit present. Mental Status: She is alert and oriented to person, place, and time. Psychiatric: Mood and Affect: Mood normal. Behavior: Behavior normal. DIAGNOSTIC DATA No visits with results within 1 Day(s) from this visit. Latest known visit with results is: Lab Requisition on 07/29/2021 Component Date Value Ref Range Status ??? T3, Total 07/29/2021 223* 97 - 169 ng/dL Final BMP: Lab Results Component Value Date NA 138 09/18/2019 K 4.3 09/18/2019 CL 103 09/18/2019 CO2 27 09/18/2019 BUN 21 09/18/2019 CREATININE 0.75 09/18/2019 CALCIUM 9.8 09/18/2019 CALCCA 9.3 09/18/2019 PHOS 3.9 09/18/2019 LABALBU 4.6 09/18/2019 DIAGNOSIS 1. Chronic interstitial cystitis AMB CONS/FOLLOW UP UROLOGY ASSESSMENT 81yoF w/ chronic IC w/ recent exacerbation. -pt previously failed myrbetriq, elimination diets and elmiron -given multiple prior treatment failures, rec consult w/ Dr. Martel at [facility] -given symptoms, interested in diagnostic cysto, r/o alternate pathology. That will be scheduled to be done here in the coming days. PLAN Other Orders Placed This Visit Procedures ??? Amb Consult/Follow Up Urology John Martinez MD Electronicaly signed by: John Martinez MD documented in this encounter Plan of Treatment Scheduled Referrals Name Type Priority Associated Diagnoses Order S chedule AMB CONS/FOLLOW Outpatient Routine/Next Chronic interstitial Expe cted: UP UROLOGY Referral Available cystitis 11/22/2021 (Approximate), Expires: 10/22/2022 documented as of this encounter Visit Diagnoses Diagnosis Chronic interstitial cystitis - Primary documented in this encounter Historical Medications This list may reflect changes made after this encounter. Medication Sig Dispensed Refills Start Date End Date tolterodine (DETROL LA) 4 Take by mouth. 0 mg long acting capsule methylPREDNISolone MEDROL 4 MG TABS 0 07/08/2020 (MEDROL) 4 mg tablet lidocaine (XYLOCAINE) 2 % lidocaine HCl 2 % 0 07/2021 jelly mucosal jelly ipratropium-albuteroL IPRATROPIUM-ALBUTER 0 09/18 (DUONEB) 0.5 mg-3 mg(2.5 OL 0.5-2.5 (3) mg base)/3 mL nebulizer MG/3ML SOLN solution glycopyrrolate-formoteroL BEVESPI AEROSPHERE 0 (BEVESPI AEROSPHERE) 9-4.8 9-4.8 MCG/ACT AERO mcg HFA aerosol inhaler gabapentin (NEURONTIN) 100 1 Capsule every 8 0 mg capsule hours. doxycycline (VIBRA-TABS) every 12 hours. 0 100 mg tablet QUICKVUE AT-HOME COVID-19 Use as directed. 0 09/10 TEST kit nitrofurantoin, 1 Capsule every 12 0 07/07/2020 0 11/30/2021 macrocrystal-monohydrate, hours. (MACROBID) 100 mg capsule levOFLOXacin (LEVAQUIN) LEVOFLOXACIN 500 MG 0 11/30/2021 500 mg tablet TABS amoxicillin (AMOXIL) 875 AMOXICILLIN 875 MG 0 11/30/2021 mg tablet TABS added in this encounter Care Teams Mechanical Specialist Relationship Specialty Start Date End Date Campos Lopes MD PCP - General 05/21/09 [address] [place] [address] documented as of this encounter
--- OUTSIDE RECORDS SUMMARY | 2022-06-18 00:25 | XMS_ITS | Encounter Summary ---
:1940 Author Organization [facility] Address [address] [place] [address] Care Team Providers Name Role Phone Campos Lopes MD Primary Care Provider Reason for Visit Reason Onset Date Comments Appointment Related 08/07/2021Aug 1rst appointment Encounter Details Date Type Department Care Team Description 08/07/2021 Telephone [facility] Ed Morin ntment Related General Surgery - Arabella Chaves (Aug 1rst appointment) [facility] [address] [place], [place] [address], [place] [address] (Wo rk) Social History Tobacco Use Types [...] this encounter Miscellaneous Notes Telephone Encounter - Stefania Dooley - 08/07/2021 1115 EDT Patient would like to cancel her appointment as she does not want to see Dr. Morin. She is not interested in coming in as she lives 2 hours away. Please do not call back to reschedule. documented in this encounter Plan of Treatment Not on filedocumented as of this encounter Visit Diagnoses Not on filedocumented in this encounter Care Teams Supervisory Lifeguard Relationship Specialty Start Date End Date Campos Lopes MD PCP - General 05/21/09 [address] [place] [address] documented as of this encounter
--- OUTSIDE RECORDS SUMMARY | 2022-06-18 00:25 | XMS_ITS | Encounter Summary ---
:1940 Author Organization [facility] Address [address] [place] [address] Care Team Providers Name Role Phone Campos Lopes MD Primary Care Provider Reason for Visit Reason Comments Follow-up Encounter Details Date Type Department Care Team Description 12/24/2021 Office Visit [facility] - John Martinez rosy interstitial [facility] MD Karen cystitis (Primary Dx) [address] [place] [address] [address] [place] [address] Social History Tobacco Use Types Packs/Day Years [...] encounter Progress Notes John Martinez MD - 12/24/2021 1300 EDT 12/24/2021 NEW PATIENT CHIEF COMPLAINT Follow-up PATIENT: Maureen Thomas HISTORY OF PRESENT ILLNESS Maureen Thomas is a very pleasant 81 y.o. female who presents with IC. Seemed to have worse urethral irritation on Keflex and stopped taking. Had significant alleviation of symptoms after last intravesical IC coctail administration. Presenting for repeat administration. PAST HISTORY Past Medical History: Diagnosis Date ??? Acquired complex renal cyst 07/31/2018 ??? Activity, other involving cardiorespiratory exercise able to climb 1 FOS sometimes; gardening ??? Asthma 11/10/2020 - exercise induced / cold weather; pt denies 02/17/2021 ??? Basal cell carcinoma of skin 10/22/2021 ??? COPD (chronic obstructive pulmonary disease) ([facility]) (HCC) well controlled with inhalers per pt [...] tobacco: Never Used ??? Tobacco comment: late Substance Use Topics ??? Alcohol use: Yes Comment: 2/monthly ??? Drug use: Never MEDICATIONS Current Outpatient Medications Medication Sig Dispense Refill ??? albuterol (PROAIR HFA) 90 mcg/actuation inhaler Inhale 1-2 Puffs as directed every 6 hours as needed for Wheezing. Reported on 01/05/2017 ??? ascorbic acid, vitamin C, 500 mg capsule every 8 hours. ??? atenoloL (TENORMIN) 25 mg tablet Take 25 mg by mouth daily. ??? atenolol (TENORMIN) 50 mg tablet Take 25 mg by mouth daily before breakfast. (Patient not taking: Reported on 11/30/2021) ??? azelastine (ASTELIN) nasal spray USE 2 SPRAYS IN EACH NOSTRIL TWICE DAILY NEEDED ??? cephalexin (KEFLEX) 500 mg capsule Take 1 capsule by mouth daily. 30 capsule 5 ??? doxycycline (VIBRA-TABS) 100 mg tablet every [...] Tablet Tablet: qd - daily 180 mg (Patient not taking: Reported on 11/30/2021) ??? fluconazole (DIFLUCAN) 150 mg tablet fluconazole [...] aerosol inhaler BEVESPI AEROSPHERE 9-4.8 MCG/ACT AERO (Patient not taking: Reported on 11/30/2021) ??? ibuprofen (MOTRIN) 200 mg tablet Take 4 Tabs by mouth every 8 hours as needed for Pain. ??? ipratropium (ATROVENT) 42 mcg (0.06 %) nasal spray USE 2 SPRAYS IN EACH NOSTRIL THREE TIMES DAILY FOR 5 DAYS ??? ipratropium-albuteroL (DUONEB) 0.5 mg-3 mg(2.5 mg base)/3 mL nebulizer solution IPRATROPIUM-ALBUTEROL 0.5-2.5 (3) MG/3ML SOLN (Patient not taking: Reported on 10/22/2021) ??? lidocaine (XYLOCAINE) 2 % jelly lidocaine HCl 2 % mucosal jelly (Patient not taking: Reported on10/22/2021) ??? magnesium oxide (MAG-OX) 400 mg tablet Take 400 mg by mouth daily before breakfast. Currently taking (Patient not taking: Reported on 11/30/2021) ??? methylPREDNISolone (MEDROL) 4 mg tablet MEDROL 4 MG TABS (Patient not taking: Reported on 10/22/2021) ??? Multivitamins with Minerals tablet tablet Take 1 Tab by mouth daily. ??? omeprazole (PRILOSEC) 10 mg capsule Take [...] vaginal cream terconazole 0.4 % vaginal cream (Patient not taking:Reported on 11/30/2021) ??? tolterodine (DETROL LA) 4 mg long acting capsule Take by mouth. ??? TOVIAZ 4 mg ER tablet (Patient not taking: Reported on 11/30/2021) Current Facility-Administered Medications Medication Dose Route Frequency Provider Last Rate Last Admin ??? heparin 20,000 Units, methylPREDNISolone sod suc(PF) (SOLU-MEDROL) 125 mg, sodium bicarbonate 8.4 % 5 mL, lidocaine 20 mg/mL (2 %) 10 mL, sterile water (PF) 26 mL bladder irrigation bladder instillation Now John Martinez MD ??? heparin 20,000 Units, methylPREDNISolone sod suc(PF) (SOLU-MEDROL) 125 mg, sodium bicarbonate 8.4 % 5 mL, lidocaine 20 mg/mL (2 %) 10 mL, sterile water (PF) 26 mL bladder irrigation bladder instillation Once John Martinez MD ALLERGIES Allergies Allergen Reactions ??? Dye Anaphylaxis IVP DYE ??? Nitrofurantoin Other (See Comments) ??? Trimethoprim Rash ??? Losartan Other reaction(s): itchiness and redness of eyes ??? Mirabegron Other (See Comments) ??? Amitriptyline BROADCAST JOURNALIST changes at low dose ??? Ciprofloxacin Other [...] membranes are moist. Eyes: Conjunctiva/sclera: Conjunctivae normal. Cardiovascular: Rate and Rhythm: Normal rate. Pulmonary: Effort: Pulmonary effort is normal. Abdominal: General: Abdomen is flat. Palpations: Abdomen is soft. Tenderness: There is no right CVA tenderness or left CVA tenderness. Genitourinary: General: Normal vulva. Neurological: General: No focal deficit present. Mental Status: She is alert and oriented to person, place, and time. Psychiatric: Mood and Affect: Mood normal. Behavior: Behavior normal. DIAGNOSTIC DATA No visits with results within 1 Day(s) from this visit. Latest known visit with results is: Procedure visit on 11/30/2021 Component Date Value Ref Range Status ??? Organism ID 11/30/2021 10, 000 to 100,000 CFU/ml Final Usual urogenital jose.. BMP: Lab Results Component Value Date NA 138 09/18/2019 K 4.3 09/18/2019 CL 103 09/18/2019 CO2 27 09/18/2019 BUN 21 09/18/2019 CREATININE 0.75 09/18/2019 CALCIUM 9.8 09/18/2019 CALCCA 9.3 09/18/2019 PHOS 3.9 09/18/2019 LABALBU 4.6 09/18/2019 DIAGNOSIS 1. Chronic interstitial cystitis ASSESSMENT 81yoF w/ chronic IC. 5 ingredient cocktail administered under sterile conditions without difficulty,tolerated well. Continue other management in place, stopped keflex Pt interested in obtaining the German Cocktail for home administration, will need to explore w/ area compounding pharmacies. F/u 2 weeks for next admin PLAN No orders of the defined types were placed in this encounter. John Martinez MD Electronicaly signed by: John Martinez MD documented in this encounter Plan of Treatment Not on filedocumented as of this encounter Visit Diagnoses Diagnosis Chronic interstitial cystitis - Primary documented in this encounter Orders Medications Ordered That Might Not Have Count Last Ord ered Date First Ordered Date Been Administered heparin 20,000 Units, methylPREDNISolone 1 022 sod suc(PF) (SOLU-MEDROL) 125 mg, sodium bicarbonate 8.4 % 5 mL, lidocaine 20 mg/mL (2 %) 10 mL, sterile water (PF) 26 mL bladder irrigation documented in this encounter Care Teams Data Analytics Specialist Relationship Specialty Start Date End Date Campos Lopes MD PCP - General 05/21/09 [address] [place] [address] documented as of this encounter
--- OUTSIDE RECORDS SUMMARY | 2022-06-18 00:25 | XMS_ITS | Clinical Summary ---
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 Cholecalciferol (Vitamin Low 04/24/2012 unk nown D3) Other reaction( s): nausea Ciprofloxacin Other (See Comments) 02/17/2010 Ectopi c heart beats Dye Anaphylaxis High 07/14/2015 IVP DYE Pentosan Polysulfate 07/14/2015 Unknown To pt Sodium Epinephrine 02/17/2010 tachycardia Famotidine Other (See Comments) Low 01/24/2020 Other r eaction(s): stomach upset Iodine And Iodide Hives 02/17/2010 Containing Products Lisinopril 11/24/2018 Other reaction( s): Unknown Pt does not recall Losartan Medium 12/25/2019 Other reaction( s): itchiness and redness of eyes Methimazole Other (See Comments) 07/14/2015 unknown Mirabegron Other (See Comments) Medium 10/15/2021 Nitrofurantoin Other (See Comments) High 08/23/2020 Shellfish Derived 10/22/2021 Trimethoprim Rash High 09/06/2020 Medications Medication Sig Dispensed Refills Start Date End Date Status ibuprofen (MOTRIN) 200 Take 4 Tabs by 0 Active mg tablet mouth every 8 hours as needed for Pain. atenolol (TENORMIN) 50 Take 25 mg by 0 Active mg tabletIndications: mouth daily Hyperthyroidism before breakfast. estradiol (ESTRACE) 0.[address] Place vaginally. 1 Tube 11 06/29/20 11 Active % (0.1 mg/g) vaginal Per vagina 2 x cream weekly fluticasone-salmeterol Inhale 2 Puffs as directed 2 times daily . 0 Active (ADVAIR HFA) 230-21 mcg/actuation inhaler ergocalciferol, vitamin Take 2,000 Units 0 Active D2, 2,000 unit tablet by mouth daily. Twice weekly albuterol (PROAIR HFA) Inhale 1-2 Puffs 0 Active 90 mcg/actuation inhaler as directed every 6 hours as needed for Wheezing. Reported on 01/05/2017 solifenacin (VESICARE) Take 5 mg by 0 Active 10 mg tablet mouth as needed. magnesium oxide (MAG-OX) Take 400 mg by 0 Active 400 mg tablet mouth daily before breakfast. Currently taking Multivitamins with Take 1 Tab by 0 Active Minerals tablet tablet mouth daily. omeprazole (PRILOSEC) 10 Take 20 mg by 0 Active mg capsule mouth 2 times daily. ascorbic acid, vitamin every 8 hours. 0 Active C, 500 mg capsule azelastine (ASTELIN) USE 2 SPRAYS IN 0 10/05/2021 Active nasal spray EACH NOSTRIL TWICE DAILY NEEDED SYMBICORT 160-4.5 INHALE 1 PUFF BY 0 08/07/2021 Active mcg/actuation HFA MOUTH TWICE aerosol inhaler inhaler DAILY TOVIAZ 4 mg ER tablet 0 07/15/2021 Active fexofenadine (PAUL Paul Allergy 180 mg tablet 0 Active ALLERGY) 180 mg tablet 1 (one) Tablet Tablet: qd - daily 180 mg fluconazole (DIFLUCAN) fluconazole 150 mg tablet 0 Active 150 mg tablet as needed fluticasone propionate fluticasone propionate 50 mc g/actuation nasal spray,suspension 0 Active (FLONASE) 50 as needed mcg/actuation nasal spray phenazopyridine TAKE 1 TABLET BY 0 09/27/2021 Active (PYRIDIUM) 100 mg tablet MOUTH THREE TIMES DAILY terconazole (TERAZOL 7) terconazole 0.4 0 Active 0.4 % vaginal cream % vaginal cream QUICKVUE AT-HOME Use as directed. 0 10/07/2021 Active COVID-19 TEST kit doxycycline (VIBRA-TABS) every 12 hours. 0 Active 100 mg tablet gabapentin (NEURONTIN) 1 Capsule every 0 11/03/2020 Active 100 mg capsule 8 hours. glycopyrrolate-formotero BEVESPI 0 09/09/2020 Active L (BEVESPI AEROSPHERE) AEROSPHERE 9-4.8 9-4.8 mcg HFA aerosol MCG/ACT AERO inhaler ipratropium-albuteroL IPRATROPIUM-ALBU 0 09/18/2020 Active (DUONEB) 0.5 mg-3 mg(2.5 TEROL 0.5-2.5 mg base)/3 mL nebulizer (3) MG/3ML SOLN solution lidocaine (XYLOCAINE) 2 lidocaine HCl 2 0 06/19/2021 Active % jelly % mucosal jelly methylPREDNISolone MEDROL 4 MG TABS 0 07/08/2020 Active (MEDROL) 4 mg tablet tolterodine (DETROL LA) Take by mouth. 0 Active 4 mg long acting capsule ipratropium (ATROVENT) USE 2 SPRAYS IN 0 11/23/2021 Active 42 mcg (0.06 %) nasal EACH NOSTRIL spray THREE TIMES DAILY FOR 5 DAYS atenoloL (TENORMIN) 25 Take 25 mg by 0 10/19/2021 Active mg tablet mouth daily. cephalexin (KEFLEX) 500 Take 1 capsule 30 capsule 5 11/30/2021 Active mg capsule by mouth daily. Additional Information Patient not taking. Reported on 04/30/2022 lidocaine (XYLOCAINE) 2 % jelly Apply to urethra twice 30 mL 3 01/07/2022 Active daily as needed Additional Information Patient not taking. Reported on 04/30/2022 phenazopyridine (PYRIDIUM) Take 1 Tablet by mouth 3 90 Tablet 5 01/07/2022 Active 100 mg tablet times daily as needed for Pain. cetirizine (ZYRTEC) 10 mg Take 10 mg by mouth 0 05/0 11/2021 Active tablet daily. levOFLOXacin (LEVAQUIN) 500 Take 500 mg by mouth 0 0 04/02/2022 Active mg tablet daily. Polymyxin B Sulfate 100 Special intravesical treatme nt for cystitis and possible UTI 5 Each 1 04/30/2022 Active million unit powder 1/2 bottle/mixture in 250cc of Normal Saline and instill and lavage to clean out bladder, last syringe leave for extended dwell time. Hospital, Clinic, or Ordered Dose Route Frequency Start End Da te Status Other Facility Date Administered Medication heparin 20,000 Units, BLADDER INST Once (Time Active methylPREDNISolone sod Specified) 2 suc(PF) (SOLU-MEDROL) 125 mg, sodium bicarbonate 8.4 % 5 mL, lidocaine 20 mg/mL (2 %) 10 mL, sterile water (PF) 26 mL bladder irrigation Active Problems Patient Care Coordination Note Formatting of this note might be differe nt from the original. Confirmed NON aco status via Medicaid we b for 2020 trace#[id number] Rosanna Betancourt 02/20/2021 12:57 Problem Noted Date Atrophic vaginitis 04/30/2022 Abnormal computerized axial tomography of chest 2021 Overview: LLL 8 mm semisolid nodule Basal cell carcinoma of skin 10/22/2021 Duodenal ulcer 10/22/2021 Postoperative state 10/22/2021 Wheezing 10/22/2021 Torn ear lobe 10/22/2021 Excessive daytime sleepiness 10/22/2021 Abnormal radiographic examination 10/15/2021 Carpal tunnel syndrome of right wrist 10/15/2021 Chronic interstitial cystitis 10/15/2021 Hypersomnia 10/15/2021 Laceration of ear region 10/15/2021 Lack of energy 10/15/2021 Pain in right foot 10/15/2021 Postmenopausal bleeding 10/15/2021 Subclinical hyperthyroidism 10/15/2021 Urinary urgency 10/15/2021 Urinary tract infection, site not specified 05/21/2021 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 Chronic obstructive pulmonary disease ([facility]) 2020 Left bundle branch block 12/01/2020 Dyspnea on exertion 09/18/2020 Chronic low back pain 09/12/2020 Cystitis cystica 09/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 Gallbladder disorder 07/31/2020 Gastric mass 07/31/2020 Asthma 07/23/2020 Acute back pain with sciatica 06/23/2020 Fatigue 01/24/2020 Pruritus 12/10/2019 Unspecified blepharitis unspecified eye, unspecified e yelid 11/12/2019 Fracture of coccyx, subsequent encounter for fracture with delayed healing 04/09/2019 Muscle cramps 03/19/2019 Ankle edema 01/29/2019 Gastroesophageal reflux disease 12/06/2018 Abdominal pain, right upper quadrant 11/17/2018 Postnasal drip 11/17/2018 Laryngopharyngeal reflux 10/30/2018 Overview: ENT consultation with flexible laryngos copy 10/27/2018 Acquired complex renal cyst 07/31/2018 Overview: urology consult felt to be benign Chronic cough 03/31/2018 Pre-procedural laboratory examination 12/07/2017 Paresthesias 11/15/2017 Foreign body granuloma of skin 11/15/2017 Overview: left heel Pain in joint 06/17/2017 Radial styloid tenosynovitis 06/17/2017 Tibialis posterior tendinitis 06/17/2017 Hyperglycemia 02/22/2017 Loss of balance 02/14/2017 Peripheral neuropathy 02/14/2017 Fracture of finger of left hand with malunion 06/25/20 16 Indigestion 10/31/2015 Overview: chronic Recurrent urinary tract infection 06/20/2015 Mild persistent asthma 10/14/2014 Solitary pulmonary nodule 04/29/2014 Nontoxic multinodular goiter 03/14/2012 Urinary frequency 08/03/2011 Hypertensive disorder 06/09/2009 Tremor 06/09/2009 Overview: mild 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 Hypercholesterolemia 11/10/2001 Paroxysmal atrial fibrillation ([facility]) 11/10/2001 Perennial allergic rhinitis 11/10/2001 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 Encounters Date Type Specialty Care Team Description 05/06/2022 Telephone Endocrinology Joelle Valentin MD Medicati on Problem 04/30/2022 Office Visit Urology Joelle Valentin MD Cystitis cystica (Primary Dx); Vulvodynia; Atrophic vagini tis 04/18/2022 Lab Requisition Clinical Laboratory Outr Resulting Lab, Provider from Last 3 Months Immunizations Name Administration Dates Next Due Covid-19 mRNA Vaccine (MODERNA COVID-19) 08/18/2021, 021, 12/08/2020 PF 0.5 ml IM (12 yrs+) Influenza Vaccine =>3yo Split IM 06/28/2016 Influenza Vaccine High Dose (FLUZONE HIGH 07/31/2018 DOSE) PF 0.7 ml IM (65 yrs+) Influenza Vaccine MDCK Quad (FLUCELVAX) 07/31/2019 PF 0.5 ml IM (4 yrs+) Influenza Vaccine Quad (AFLURIA) PF 0.5 07/31/2020 ml IM (3 yrs+) Influenza Vaccine Quad (FLUZONE) MDV 07/10/2019, 07/31/2018, 09/13/2017 w/preserv 0.5 ml IM (6 mos+) Influenza Vaccine Quad High Dose (FLUZONE 07/29/2021 HIGH DOSE) PF 0.7 ml IM (65 yrs+) Pneumococcal Conj Vacc PCV13 (PREVNAR-13) 06/10/2015 IM Pneumococcal Polysaccharide (PPSV23) 11/15/2007, 10/12/1996 Vaccine (PNEUMOVAX-23) =>2YO SQ/IM Tdap (BOOSTRIX) Vaccine =>7YO IM 06/10/2015 Surgical History Surgery Date Site/Laterality Comments TONSILLECTOMY CARPAL TUNNEL RELEASE 10/10/2018 - 10/09/2019 Right 11/2020 - [facility] Medical History Medical History Date Comments Thyroid disease suppressed TSH; nml T4 and T3 Multiple thyroid nodules 11/11/20 - see 09/20/2019 Dr. melanie Gonzales ev al Hx of osteoporosis Urinary frequency 11/11/2020 pt discr ibes hyperactive bladder Activity, other involving able to climb 1 FOS sometimes; cardiorespiratory exercise gardening History of general anesthesia no complic ations per pt 02/17/2021 Hypertension well controlled w/me d, BP ranges 130-140/80-90 021 COPD (chronic obstructive pulmonary well controlled with inhalers per disease) ([facility]) ([facility]) pt 02/17/2021 Asthma 11/10/2020 - exercis e induced / cold weather; pt den ies 02/17/2021 Hyperthyroidism 02/17/2021--recent TS H w/ PCP; takes atenolol for treatme nt; no changes per pt 02/16/2021 GERD (gastroesophageal reflux disease) -- well controlled with meds UTI (urinary tract infection) chronic, l ast UTI last month, resolved with abx pe r pt 02/16/2021 Acquired complex renal cyst 07/31/2018 Basal cell carcinoma of skin 10/22/2021 Excessive daytime sleepiness 10/22/2021 Family History Medical History Relation Name Comments *Other(comment) Neg Hx Breast Cancer Neg Hx Colon Cancer Neg Hx Colon Polyps Neg Hx Endometrial Cancer Neg Hx Esophageal Cancer Neg Hx Glaucoma Neg Hx Macular Degeneration Neg Hx Ovarian Cancer Neg Hx Pancreatic Cancer Neg Hx Rectal Cancer Neg Hx Stomach Cancer Neg Hx Relation Name Status Comments Father Other Mother Other Social History Tobacco Use Types Packs/Day Years [...] Assigned at Date Recorded Not on file Last Filed Vital Signs Vital Sign Reading Time Taken Comments Blood Pressure 137/60 02/24/2021 1515 EDT Pulse 101 09/18/2019 1421 EST Temperature 36.2 ??C (97.2 ??F) 02/24/2021 1333 EDT Respiratory Rate 20 02/24/2021 1515 EDT Oxygen Saturation 96% 02/24/2021 1515 EDT Inhaled Oxygen Concentration - - Weight 79.4 kg (175 lb) 02/24/2021 1333 EDT Height 167.6 cm (5' 6) 02/24/2021 1333 EDT Body Mass Index 28.25 02/24/2021 1333 EDT Plan of Treatment Health Maintenance Due Date Last Done Comments Asthma Action Plan 1940 Copd Action Plan 1940 Lung Function Test (Spirometry) 1940 Fall Risk Screening 01/05/2018 01/05/2017 COVID-19 Vaccine (4 - Booster for 12/16/2021 08/18/2021, , Moderna series) 12/08/2020 Procedures Procedure Name Priority Date/Time Associated Diagnosis Comme nts UROLOGY BLADDER Routine 04/30/2022 Results for this SCAN procedure are i n the results section. UROLOGY BLADDER Routine 04/30/2022 Results for this SCAN procedure are i n the results section. LAB URINE CHEMICAL Routine 04/30/2022 Results f or this (DIP) - DOES NOT procedure a re in REFLEX the results section. T3 FREE Routine 04/18/2022 17:46 Results for this EDT procedure are i n the results section. from Last 3 Months Results LAB URINE CHEMICAL (DIP) - DOES NOT REFLEX (04/30/2022) Pathologist Sig nature Color UA, External [facility] Clarity UA, External [facility] Glucose UA, External neg [facility] Bilirubin UA, External neg [facility]INT [facility] E Ketones UA, External neg [facility] Specific [place] UA, 1.020 [facility] External Blood UA, External 1+ [facility] pH UA, External 6.0 [facility] Protein UA, External neg [facility] Urobilinogen UA, External 0.2 [facility] Nitrite UA, External neg [facility] Leukocyte Esterase UA, 1+ [facility] External Specimen Urine - Urine specimen collection, clean catch (procedure) Performing Organization Address City/State/ZIP Code Phon e Number [facility] UROLOGY BLADDER SCAN (04/30/2022) Pathologist Sig nature Bladder Scan 0 ML/PVR [facility] Specimen Urine Performing Organization Address City/[facility]/ZIP Code Phon e Number [facility] UROLOGY BLADDER SCAN (04/30/2022) Pathologist Sig nature Bladder Scan 0 ml [facility] Specimen Urine Performing Organization Address City/[facility]/ZIP Code Phon e Number [facility] (ABNORMAL) T3 FREE (04/18/2022 17:46 EDT) Pathologist Sig nature T3, Free 7.3 (H) 2.8 - 5.3 pg/mL [facility] Specimen Blood - Venous blood (substance) Performing Organization Address City/[facility]/ZIP Code Phon e Number [facility] [address] [place] [address] SERVICES from Last 3 Months Insurance Payer Benefit Plan / Subscriber ID Effective Phone Address T ype Group Dates MEDICARE MEDICARE A/B [id number] 2007-Prese [address] [place] [address] MEDICAID [place]ICAID [place] [id number] 2009-Prese [address] Medicaid [facility] [place] [facility] [phone] Elzohairy,Maureen Personal/Famil Self [address] (Home) [address] [place] [phone] Elzohairy,Maureen Personal/Famil Self [address] (Home) [address] [place] [phone] Elzohairy,Maureen Personal/Famil Self [address] [place] [phone] Elzohairy,Maureen Personal/Famil Self [address] (Home) [address] [place] [phone] Advance Directives For more information, please contact: [phone] Documents on File Type Date Recorded Patient Knobber Explanati on Advance Directives and Living Will Care Teams Sales Development Executive Relationship Specialty Start Date End Date Campos Lopes MD PCP - General 05/21/09 [address] [place] [address]
--- OUTSIDE RECORDS SUMMARY | 2022-06-18 00:25 | XMS_ITS | Encounter Summary ---
:1940 Author Organization [facility] Address [address] [place] [address] Care Team Providers Name Role Phone Campos Lopes MD Primary Care Provider Reason for Visit Reason Comments Interstitial Cystitis Encounter Details Date Type Department Care Team Description 04/30/2022 Office Visit [facility] - Joelle Valetnin, Cyst itis cystica (Primary Dx); [facility] Vulvodynia; [address] [place] [address] Social History Tobacco Use Types Packs/Day Years [...] making decisions? documented as of this encounter Patient Instructions Patient InstructionsJoelle Valenitn MD - 04/30/2022 15:15 EDT Thank you for coming to see me today. As you know my name is Dr. Valentin and I come from the [facility] to help train new doctors after a decade and a half of practice on the [facility]. I amfrom the [facility]. I am here as a visiting doctor to help out our clinic in [facility]. I appreciate you coming to see me and letting me know your concerns. I got to listen to your concerns. You have seen many urologists and specialists in the past. You have been given a working dx of chronic interstitial cystitis. Other working dx that I think that are appropriate during our discussion are: Atrophic vaginitis Cysititis Cystica Chronic pelvic pain Vulvodynia Pelvic floor pain There are many ways to tackle your issues. We arrived at some recommendations that will certainly reduce your pain and inflammation. 1) Stop the coffee and tea and juices such as cranberry, grapefruit, apple and almond/soy milk. 2) We will write you an Rx for Polymixin B - 500,000iu in 250cc of Normal saline and mix and instillas a lavage into the bladder. Last marielena syringe leave for indwelling time and you can void out at your convenience. 3) Use 1/4 inch strip of estrogen cream onto finger tip and apply onto introitus and urethra every day after shower. 4) Plenty of water to wash out the bladder. 5) Get a diary and begin to recall your history to know your life stressors. Appreciate your interesting life stories. 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 MD LAVONNE documented in this encounter Ordered Prescriptions Prescription Sig Dispensed Refills Start Date End Date Polymyxin B Sulfate 100 Special intravesical treatme nt for cystitis and possible UTI 5 Each 1 04/30/2022 million unit powder 1/2 bottle/mixture in 250cc of Normal Saline and instill and lavage to clean out bladder, last syringe leave for extended dwell time. documented in this encounter Progress Notes Joelle Valentin MD - 04/30/2022 1515 EDT 04/30/2022 FOLLOWUP CHIEF COMPLAINT Interstitial Cystitis 2nd opinion. Pt follows Dr. Martinez PATIENT: Maureen Thomas HISTORY OF PRESENT ILLNESS Maureen Thomas is a very pleasant 82 y.o. 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 Patient stated that a female urologist diagnosed her with this at [facility]. A caal line that the patient reported to me was that her original urologist scoped her and stated that her bladder mucosa and bladder neck had morphological changes. I was unsure of what she meant by that but I did explain to her Alberts therapy for potassium leak causing bladder pain.She was not aware of that theory. Since then she has seen at least 5 urologists just in the past as well as other specialist such as gynecologists. She is currently assigned with Dr. John Martinez. Dr. Martinez has given her trial of intravesical cocktail which seemed to work for a little bit but then she comes back today with new concerns. 1) She has chronic flares of urethritis that she describes as steel wool being dragged across her urethra. Occasionally she also has rectal pain radiating forward to her buttocks and causes muscle tightness. 2) She has urinary infections about every 1 to 2 months. They do not show any urinary dips but they show about a 10,000 colony factor unit counts upon culture. She brought those labs for me to review from her primary care physician. 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 Her concern is these organisms are becoming multiresistant to the drugs she is taking. She is worried that this will lead to a situation where future infections cannot be treated with antibiotics. PAST HISTORY Past Medical History: Diagnosis Date ??? Acquired complex renal cyst 07/31/2018 ??? Activity, other involving cardiorespiratory exercise able to climb 1 FOS sometimes; gardening ??? Asthma 11/10/2020 - exercise induced / cold weather; pt denies 02/17/2021 ??? Basal cell carcinoma of skin 10/22/2021 ??? COPD (chronic obstructive pulmonary disease) ([facility]) ([facility]) well controlled with inhalers per pt 02/17/2021 [...] capsule Take 1 capsule by mouth daily. (Patient not taking: Reported on 04/30/2022) 30 capsule 5 ??? cetirizine (ZYRTEC) 10 mg tablet Take 10 mg by mouth daily. ??? doxycycline (VIBRA-TABS) 100 mg tablet every 12 hours. (Patient not taking: Reported on 10/22/2021) ??? ergocalciferol, vitamin D2, 2,000 unit tablet Take 2,000 Units by mouth daily. Twice weekly ??? estradiol (ESTRACE) 0.01 % (0.1 mg/g) vaginal cream Place vaginally. Per vagina 2 x weekly 1 Tube 11 ??? fexofenadine (LEIGHA ALLERGY) 180 mg tablet Leigha Allergy 180 mg tablet 1 (one) Tablet [...] 10/22/2021) ??? levOFLOXacin (LEVAQUIN) 500 mg tablet Take 500 mg by mouth daily. (Patient not taking: Reported on 04/30/2022) ??? lidocaine (XYLOCAINE) 2 % jelly Apply to urethra twice daily as needed (Patient not taking: Reported on 04/30/2022) 30 mL 3 ??? lidocaine (XYLOCAINE) 2 % jelly lidocaine [...] daily. ??? phenazopyridine (PYRIDIUM) 100 mg tablet Take 1 Tablet by mouth 3 times daily as needed for Pain. 90 Tablet 5 ??? phenazopyridine (PYRIDIUM) 100 mg tablet TAKE 1 TABLET BY MOUTH THREE TIMES DAILY (Patient not taking: Reported on 04/30/2022) ??? Polymyxin B Sulfate 100 million unit powder Special intravesical treatment for cystitis and possible UTI 1/2 bottle/mixture in 250cc of Normal Saline and instill and lavage to clean out bladder, last syringe leave for extended dwell time. 5 Each 1 ??? QUICKVUE AT-HOME COVID-19 TEST kit Use [...] Take by mouth. (Patient not taking: Reported on04/30/2022) ??? TOVIAZ 4 mg ER tablet (Patient [...] ??? Mirabegron Other (See Comments) ??? Amitriptyline SEGREGATOR changes at low dose ??? Ciprofloxacin Other [...] Other (See Comments) Other reaction(s): stomach upset VITALS There were no vitals filed for this visit. PHYSICAL EXAM [facility] - Ilya Well Nourished female, wearing covid mask sometimes She is friendly and articulate Abd: soft, non tender. No scars. No CVA tenderness : Normal female correct for age. Atrophic vaginitis with some tenderness upon spreading mucosa No obvious pain at urethral meatus with Q-tip. Introitus is small. No obvious protruding cystocele. No hernia No femoral nor inguinal nodes Ext: no c/c/e DIAGNOSTIC DATA Office Visit on 04/30/2022 Component Date Value Ref Range Status ??? Bladder Scan 04/30/2022 0 ml Final ??? Glucose UA, External 04/30/2022 neg Final ??? Bilirubin UA, External 04/30/2022 neg Final ??? Ketones UA, External 04/30/2022 neg Final ??? Specific [place] UA, External 04/30/2022 1.020 Final ??? Blood UA, External 04/30/2022 1+ Final ??? pH UA, External 04/30/2022 6.0 Final ??? Protein UA, External 04/30/2022 neg Final ??? Urobilinogen UA, External 04/30/2022 0.2 Final ??? Nitrite UA, External 04/30/2022 neg Final ??? Leukocyte Esterase UA, External 04/30/2022 1+ Final ??? Bladder Scan 04/30/2022 0 ML/PVR Final BMP: Lab Results Component Value Date NA 138 09/18/2019 K 4.3 09/18/2019 CL 103 09/18/2019 CO2 27 09/18/2019 BUN 21 09/18/2019 CREATININE 0.75 09/18/2019 CALCIUM 9.8 09/18/2019 CALCCA 9.3 09/18/2019 PHOS 3.9 09/18/2019 LABALBU 4.6 09/18/2019 DIAGNOSIS 1. Cystitis cystica 2. Vulvodynia 3. Atrophic vaginitis ASSESSMENT I reviewed her history very carefully. I read all I could from the previous chart entries. I spent the majority of our [id number] time listening to her concerns. In going over a very detailed history including the start of her IC symptoms which was 15 years ago. She also stated that prior to that approximately 10 years ago she was also suffering from this due to menopause at age 57. She reports using estrogen cream 2 times per week but there is some chart notations that says her usage of estrogen in the past have been sporadic. She uses estrogen cream in a bolus type fashion with the applicator deep in her introitus. She is also been on multiple antibiotics and her concerns for resistance is valid. In the past discussion of her medical history, the habits and lifestyles were not reviewed in detail. She drinks a lot of coffee and used to drink a lot more in the past. She suspected that she had atrophic vaginitis because when she applied estrogen cream onto a catheter and then inserted the catheter into her urethra her pain resolved regarding her urethritis. She also recalled looking through the scope with one of her previous urologists in the past and noting the finding of cystitis cystica. She did not know the significance of this cobblestoning finding on the mucosa. I explained that this is colonization within her bladder and that even small amounts ofbacteria can lead to her being symptomatic. I asked if she would be interested in some 'outside the box' treatments that she has never had. I have had these type of treatment successes in my practices on the [facility] and in [place]. PLAN Rx Polymixin B She will get Estrogen cream from her other providers - applied daily with just a very absorbable amounts. Diary of pain, and stressors and really think back on her history and life events. AVS Printed for her Thank you for coming to see me today. As you know my name is Dr. Valentin and I come from the [facility] to help train new doctors after a decade and a half of practice on the [facility]. I am from the [facility]. I am here as a visiting doctor to help out our clinic in [facility]. I appreciate you coming to see me and letting me know your concerns. I got to listen to your concerns. You have seen many urologists and specialists in the past. You have been given a working dx of chronic interstitial cystitis. Other working dx that I think that are appropriate during our discussion are: Atrophic vaginitis Cysititis Cystica Chronic pelvic pain Vulvodynia Pelvic floor pain There are many ways to tackle your issues. We arrived at some recommendations that will certainly reduce your pain and inflammation. 1) Stop the coffee and tea and juices such as cranberry, grapefruit, apple and almond/soy milk. 2) We will write you an Rx for Polymixin B - 500,000iu in 250cc of Normal saline and mix and instillas a lavage into the bladder. Last marielena syringe leave for indwelling time and you can void out at your convenience. 3) Use 1/4 inch strip of estrogen cream onto finger tip and apply onto introitus and urethra every day after shower. 4) Plenty of water to wash out the bladder. 5) Get a diary and begin to recall your history to know your life stressors. Appreciate your interesting life stories. 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 MD LAVONNE 55 minutes spend interviewing pt, reviewing her records and labs, discussing alternative options, and preparing her AVS. Joelle Valentin MD Electronicaly signed by: Joelle Valentin MD ENTTIlya ocampo MA - 04/30/2022 1515 EDT PVR: Lab Results Component Value Date BLADDERSCAN 0 ml 04/30/2022 BLADDERSCAN 0 ML/PVR 04/30/2022 UA: Lab Results Component Value Date GLUCUAEXT neg 04/30/2022 BILIRUAEXT neg 04/30/2022 KETONESEXT neg 04/30/2022 SPGREXT 1.020 04/30/2022 BLOODUAEXT 1+ 04/30/2022 PHUAEXT 6.0 04/30/2022 UROBILEXT 0.2 04/30/2022 NITRITEUAEXT neg 04/30/2022 LEUKESTEREXT 1+ 04/30/2022 GLUCOSEU Negative 01/07/2022 BILIRUBINUR Negative 01/07/2022 KETONES Negative 01/07/2022 KETONES Trace (A) 11/15/2011 LABSPEC 1.020 01/07/2022 BLOOD Trace (A) 01/07/2022 BLOOD Trace (A) 11/15/2011 PHUR 7.5 01/07/2022 PROTEINUA Negative 01/07/2022 UROBILINOGEN 0.2 01/07/2022 UROBILINOGEN 0.2 11/15/2011 NITRITE Negative 01/07/2022 NITRITE Neg 11/15/2011 LEUKESTER Negative 01/07/2022 LEUKESTER Neg 11/15/2011 documented in this encounter Plan of Treatment Not on filedocumented as of this encounter Procedures Procedure Name Priority Date/Time Associated Diagnosis Comme nts LAB URINE CHEMICAL Routine 04/30/2022 Results f or this (DIP) - DOES NOT procedure a re in the REFLEX results section . UROLOGY BLADDER SCAN Routine 04/30/2022 Results for this procedure are i n the results section . UROLOGY BLADDER SCAN Routine 04/30/2022 Results for this procedure are i n the results section . documented in this encounter Results UROLOGY BLADDER SCAN (04/30/2022) Pathologist Sig nature Bladder Scan 0 ML/PVR [facility] Specimen Urine Performing Organization Address City/State/ZIP Code Phon e Number [facility] UROLOGY BLADDER SCAN (04/30/2022) Pathologist Sig nature Bladder Scan 0 ml [facility] Specimen Urine Performing Organization Address City/[facility]/ZIP Code Phon e Number [facility] LAB URINE CHEMICAL (DIP) - DOES NOT REFLEX (04/30/2022) Pathologist Sig nature Color UA, External [facility] Clarity UA, External [facility] Glucose UA, External neg [facility] Bilirubin UA, External neg [facility] CAR E Ketones UA, External neg [facility] Specific [place] UA, 1.020 [facility] External [...] Phon e Number [facility] documented in this encounter Visit Diagnoses Diagnosis Cystitis cystica - Primary Vulvodynia Vulvodynia, unspecified Atrophic vaginitis Postmenopausal atrophic vaginitis documented in this encounter Historical Medications This list may reflect changes made after this encounter. Medication Sig Dispensed Refills Start Date End Date levOFLOXacin (LEVAQUIN) 500 Take 500 mg by mouth 0 04/02/2022 mg tablet daily. cetirizine (ZYRTEC) 10 mg Take 10 mg by mouth 0 0 02/08/2022 tablet daily. added in this encounter Care Teams Metal Sprayer Relationship Specialty Start Date End Date Campos Lopes MD PCP - General 05/21/09 [address] [place] [address] documented as of this encounter
--- OUTSIDE RECORDS SUMMARY | 2022-06-18 00:25 | XMS_ITS | Encounter Summary ---
:1940 Author Organization [facility] Address [address] [place] [address] Care Team Providers Name Role Phone Campos Lopes MD Primary Care Provider Encounter Details Date Type Department Care Team Description 02/24/2021 Travel Social History Tobacco Use Types Packs/Day Years [...] Assigned at Date Recorded Not on file COVID-19 Exposure Response Date Recorded In the last month, have you been in contact with No / Unsure 02/24/2021 12:50 EDT someone who was confirmed or suspected to have Coronavirus / COVID-19? documented as of this encounter Functional Status [...] on filedocumented in this encounter Care Teams Systems Auditor Relationship Specialty Start Date End Date Campos Lopes MD PCP - General 05/21/09 [address] [place] [address] documented as of this encounter
--- OUTSIDE RECORDS SUMMARY | 2022-06-18 00:25 | XMS_ITS | Encounter Summary ---
:1940 Author Organization [facility] Address [address] [place] [address] Care Team Providers Name Role Phone Campos Lopes MD Primary Care Provider Reason for Visit Reason Onset Date Comments Update 11/03/2021 Encounter Details Date Type Department Care Team Description 11/03/2021 Telephone [facility] [place] Cortes RN Update Urology Clinic [address] [place], [place] [id number] Social History Tobacco Use Types Packs/Day Years [...] Encounter - Marisol Cortes RN - 11/03/2021 1610 EST Left message for patient regarding Dr sauer's planned return on Tuesday and garry he would be able totell her which medications will be included in the bladder instillation documented in this encounter Plan of Treatment Not on filedocumented as of this encounter Visit Diagnoses Not on filedocumented in this encounter Care Teams Development Trainer Relationship Specialty Start Date End Date Campos Lopes MD PCP - General 05/21/09 [address] [place] [address] documented as of this encounter
--- OUTSIDE RECORDS SUMMARY | 2022-06-18 00:25 | XMS_ITS | Encounter Summary ---
:1940 Author Organization [facility] Address [address] [place] [address] Care Team Providers Name Role Phone Campos Lopes MD Primary Care Provider Reason for Visit Reason Onset Date Comments COVID-19 02/08/2021 Encounter Details Date Type Department Care Team Description 02/08/2021 Telephone [facility] - [facility]OU strauss, Alan Seha MD COVID-19 [facility] [address] [address] Amandeep Ohara [address] [place] [address] [phone] (Wo rk) Social History Tobacco Use Types [...] this encounter Miscellaneous Notes Telephone Encounter - Valerie Cervantes - 02/08/2021 1631 EDT Patient advised they would like covid testing done at [facility]. Reference Assistant faxed the order to [phone] and asked that they schedule the patient for testing on 02/20. Also made patient aware of testing dates and the need to quarantine after testing. Reference Assistant will also remove patient from the work queue. documented in this encounter Plan of Treatment Not on filedocumented as of this encounter Visit Diagnoses Not on filedocumented in this encounter Care Teams Account Support Analyst Relationship Specialty Start Date End Date Campos Lopes MD PCP - General 05/21/09 [address] [place] [address] documented as of this encounter
--- OUTSIDE RECORDS SUMMARY | 2022-06-18 00:25 | XMS_ITS | Encounter Summary ---
:1940 Author Organization [facility] Address [address] [place] [address] Care Team Providers Name Role Phone Campos Lopes MD Primary Care Provider Encounter Details Date Type Department Care Team Description 02/17/[address] [facility] [place] Pre-Surgical Testing [address] [place] [address] Social History Tobacco Use Types Packs/Day Years [...] on file documented as of this encounter Last Filed Vital Signs Vital Sign Reading Time Taken Comments Blood Pressure - - Pulse - - Temperature - - Respiratory Rate - - Oxygen Saturation - - Inhaled Oxygen Concentration - - Weight 79.4 kg (175 lb) 02/17/2021 0930 EDT Height 167.6 cm (5' 6) 02/17/2021 0930 EDT Body Mass Index 28.25 02/17/2021 0930 EDT documented in this encounter Functional Status Functional Status Response [...] Tab by 0 tablet tablet mouth daily. omeprazole (PRILOSEC) 10 mg Take 20 mg by 0 capsule mouth 2 times daily. solifenacin (VESICARE) 10 Take 5 mg by mouth 0 mg tablet as needed. losartan (COZAAR) 25 mg Take 25 mg by 0 02/24/2021 tablet mouth daily. Pt states not taking nitrofurantoin, 1 Capsule every 12 0 07/07/2020 0 11/30/2021 macrocrystal-monohydrate, hours. (MACROBID) 100 mg capsule documented as of this encounter Discharge Disposition Disposition Code Departure Means Destination Home or Self Care documented in this encounter Progress Notes Marisol Wetzel RN - 02/17/2021 1350 EDT COVID 19 Screening Perioperative at time of PAT Please document by exception (only check those that apply). Have you had any of the following symptoms recently? No. Yes Chronic ? Cough Shortness of breath or difficulty breathing Fever Chills Fatigue Muscle or body aches Severe Headache New loss of taste or smell Sore throat Congestion or runny nose Rash Nausea, vomiting, or diarrhea (rare in adults. More common in children) Please elaborate if yes: If a chronic symptom is reported use your judgement if an anesthesia review is needed. Have you been in close contact with someone who has been diagnosed with Covid 19? No. (close contact, within 6 feet of any person known to have Coronavirus in the past 14 days) If past COVID + test results in chart: ??? Complete call, Place for Anesthesia Review ??? Do not give COVID+ DOS arrival instructions unless anes review deems necessary Negative COVID screen: Please file negative COVID screening under a progress note Negative screening is no symptoms or patient reporting a chronic symptom that does not need an anesthesia review Positive COVID screen: Patient answers yes to the question(s) and it is not a chronic symptom RN to flag this chart for anesthesia review and complete call Please file positive COVID screening under a PAT note If patient develops any of these symptoms between now and their surgery date instruct them to call us back at [phone] to report symptoms (If patient is in Surgical Admissions and answers yes, please notify Surgery and Anesthesia team). Follow proper precautions- yellow mask to patient/family. Visitor Policy: -Surgical/Procedural Patients: ??? 1 healthy support person for patients arriving for any procedure requiring sedation, vaccine notrequired ??? Pediatrics: PreOp may allow 2 parents/guardians, PACU may allow 1 parent/guardians -Inpatient Adult: ??? 1 healthy, vaccinated (fully vaccinated, 2 weeks post vaccination) support person per day, 5am-9pm ??? No visitors permitted if patient is COVID+ or PUI ??? Patients with communication needs (i.e., persons who are deaf or who do not understand/speak [place]) or a cognitive impairment are permitted 1 healthy support person per day regardless of vaccination status. ??? No overnight visitors, other than for limited exceptions, such as patients with communication orother special needs (such as for those patients who are deaf or who do not understand or speak [place] and those with cognitive impairments). ??? Inpatient visitors must check in at Information desk in the [facility], level 3. Visitor will be asked to show vaccination proof and will receive a sticker that will allow access to inpatient units. -Inpatient Pediatrics: ??? 2 healthy parents/guardians: 5am- 9 pm ??? 1 healthy parent/guardian permitted overnight: 9pm- 5am documented in this encounter OR Notes Preprocedure Instructions - Marisol Wetzel RN - 02/17/2021 0950 EDT Maureen Thomas has been instructed as follows regarding medication administration for the day of the scheduled procedure. Date of Surgery: 02/24/2021 Instructions for Taking Medications Day of Surgery Medication Sig Last Dose Hold DOS Take DOS albuterol (PROAIR HFA) 90 mcg/actuation inhaler Inhale 1-2 Puffs as directed every 6 hours as neededfor Wheezing. Reported on 01/05/2017 Yes atenolol (TENORMIN) 50 mg tablet Take 25 mg by mouth daily before breakfast. Yes ergocalciferol, vitamin D2, 2,000 unit tablet Take 2,000 Units by mouth daily. Twice weekly Yes estradiol (ESTRACE) 0.01 % (0.1 mg/g) vaginal cream Place vaginally. Per vagina 2 x weekly Patient taking differently: Place vaginally as needed. Per vagina 2 x weekly Yes fluticasone-salmeterol (ADVAIR HFA) 230-21 mcg/actuation inhaler Inhale 2 Puffs as directed 2 times daily . Yes ibuprofen (MOTRIN) 200 mg tablet Take 4 Tabs by mouth every 8 hours as needed for Pain. H 7 days preferred, but if needed for severe pain H 3-5 days prior to procedure. losartan (COZAAR) 25 mg tablet Take 25 mg by mouth daily. Pt states not taking H day prior and DOS. magnesium oxide (MAG-OX) 400 mg tablet Take 400 mg by mouth daily before breakfast. Currently takingYes Multivitamins with Minerals tablet tablet Take 1 Tab by mouth daily. Yes omeprazole (PRILOSEC) 10 mg capsule Take 20 mg by mouth 2 times daily. Yes solifenacin (VESICARE) 10 mg tablet Take 5 mg by mouth as needed. Yes Instructed pt to refer to letter sent from Endo. documented in this encounter Plan of Treatment Not on filedocumented as of this encounter Visit Diagnoses Not on filedocumented in this encounter Discontinued Medications Medication Sig Discontinue Reason Start Date End Date ranitidine (ZANTAC) 150 Take 150 mg by mouth Therapy completed 03/201902/17/2021 mg tablet daily before breakfast. omeprazole (PRILOSEC) 20 Take by mouth daily. Therapy completed 02/17/2021 mg capsule Pt does know dose documented as of this encounter Historical Medications This list may reflect changes made after this encounter. Medication Sig Dispensed Refills Start Date End Date omeprazole (PRILOSEC) 10 Take 20 mg by mouth 2 0 mg capsule times daily. added in this encounter Care Teams Product/Device Technologist Relationship Specialty Start Date End Date Campos Lopes MD PCP - General 05/21/09 [address] [place] [address] documented as of this encounter
--- OUTSIDE RECORDS SUMMARY | 2022-06-18 00:25 | XMS_ITS | Encounter Summary ---
:1940 Author Organization [facility] Address [address] [place] [address] Care Team Providers Name Role Phone Campos Lopes MD Primary Care Provider Encounter Details Date Type Department Care Team Description 01/11/2022 Orders Only [facility] - [facility] John Lanier MD Urology Clinic [address] [place] [address] [place] [phone] (Wo rk) Social History Tobacco Use Types [...] making decisions? documented as of this encounter Ordered Prescriptions Prescription Sig Dispensed Refills Start Date End Date cefuroxime (CEFTIN) 500 mg Take 1 Tablet by 20 Tablet 0 01/202201/21/2022 tablet mouth 2 times daily for 10 days. documented in this encounter Plan of Treatment Not on filedocumented as of this encounter Visit Diagnoses Not on filedocumented in this encounter Care Teams Certified Pharmacist Assistant Relationship Specialty Start Date End Date Campos Lopes MD PCP - General 05/21/09 [address] [place] [address] documented as of this encounter
--- OUTSIDE RECORDS SUMMARY | 2022-06-18 00:25 | XMS_ITS | Encounter Summary ---
:1940 Author Organization [facility] Address [address] [place] [address] Care Team Providers Name Role Phone Campos Lopes MD Primary Care Provider Reason for Visit Test (Routine) - Authorized Specialty Diagnoses / Referred By Referred To Cont act Procedures Contact Gastroenterology and Procedures Sammi Harp Ganguly, Eric Kumar, Hepatology ENDOSCOPIC MD [facility] (EUS) [address] [place] [address] [place] [address] Phone: [place] [address] [place] [address] Phone: Fax: Referral ID Status Reason Start Date Expiration Date Visits V isits Requested Authorized [id number] Authorized 1 1 Encounter Details Date Type Department Care Team Description 02/24/2021 Hospital Encounter [facility] Gretchen Milton MD [address] [place] [address] 5 [place] [address] Endoscopy - [facility] Anesthesiologist Warren Negar Plascencia MD [address] [facility] 2 [place] [address] [place] [id number] Social History Tobacco Use Types Packs/Day Years [...] / COVID-19? documented as of this encounter Last Filed Vital Signs Vital Sign Reading Time Taken Comments Blood Pressure 137/60 02/24/2021 1515 EDT Pulse - - Temperature 36.2 ??C (97.2 ??F) 02/24/2021 1333 EDT Respiratory Rate 20 02/24/2021 1515 EDT Oxygen Saturation 96% 02/24/2021 1515 EDT Inhaled Oxygen Concentration - - Weight 79.4 kg (175 lb) 02/24/2021 1333 EDT Height 167.6 cm (5' 6) 02/24/2021 1333 EDT Body Mass Index 28.25 02/24/2021 1333 EDT documented in this encounter Functional Status [...] by mouth 0 mg tablet as needed. nitrofurantoin, 1 Capsule every 12 0 07/07/2020 0 11/30/2021 macrocrystal-monohydrate, hours. (MACROBID) 100 mg capsule documented as of this encounter Discharge Disposition Disposition Code Departure Means Destination Home or Self Detention documented in this encounter H&P Notes Alan Milton MD - 02/24/2021 1400 EDT Endoscopy Sedation for Procedure History & Physical Date: 02/24/2021 Time: 14:21 Location: [facility] Endoscopy - [facility] Planned Procedure: Endoscopic Ultrasound request Chief Complaint/Indications for Procedure: History Previous Complication with Sedation and/or Anesthesia? No Allergies: Allergies Allergen Reactions ??? Dye Anaphylaxis IVP DYE ??? Ciprofloxacin Other (See Comments) Ectopic heart beats ??? Elmiron [Pentosan Polysulfate Sodium] Unknown To pt ??? Epinephrine tachycardia ??? Iodine And Iodide Containing Products Hives ??? Lisinopril Other reaction(s): Unknown Pt does not recall ??? Methimazole Other (See Comments) unknown Current Medications: Current Outpatient Medications Medication ??? albuterol (PROAIR HFA) 90 mcg/actuation inhaler ??? atenolol (TENORMIN) 50 mg tablet ??? ergocalciferol, vitamin D2, 2,000 unit tablet ??? estradiol (ESTRACE) 0.01 % (0.1 mg/g) vaginal cream ??? fluticasone-salmeterol (ADVAIR HFA) 230-21 mcg/actuation inhaler ??? ibuprofen (MOTRIN) 200 mg tablet ??? magnesium oxide (MAG-OX) 400 mg tablet ??? Multivitamins with Minerals tablet tablet ??? omeprazole (PRILOSEC) 10 mg capsule ??? solifenacin (VESICARE) 10 mg tablet Current Facility-Administered Medications Medication Route Frequency ??? diphenhydrAMINE (BENADRYL) injection 25 mg intravenous Once PRN ??? sodium chloride 0.9 % (NS) infusion intravenous PRN Or ??? lactated ringers (LR) infusion intravenous PRN ??? lidocaine (PF) 10 mg/mL (1 %) injection 2 mg intradermal PRN ??? lidocaine (PF) 10 mg/mL (1 %) injection 2 mg intradermal PRN ??? sodium chloride 0.9 % (flush) flush 3 mL intravenous PRN ??? sodium chloride 0.9 % (flush) flush 5 mL intravenous Q8H Past Medical History: Past Medical History: Diagnosis Date ??? Activity, other involving cardiorespiratory exercise able to climb 1 FOS sometimes; gardening ??? Asthma 11/10/2020 - exercise induced / cold weather; pt denies 02/17/2021 ??? COPD (chronic obstructive pulmonary disease) ([facility]) well controlled with inhalers per pt 02/17/2021 ??? GERD (gastroesophageal reflux disease) 02/17/2021-- well [...] month, resolved with abx per pt 02/16/2021 Social History: Past Surgical History: Procedure Laterality Date ??? CARPAL TUNNEL RELEASE Right 201811/11/2020 - [place] ??? TONSILLECTOMY Social History Tobacco Use ??? Smoking status: Former Smoker Packs/day: 1.00 Years: 32.00 Pack years: 32.00 ??? Smokeless tobacco: Never Used ??? Tobacco comment: late Substance Use Topics ??? Alcohol use: Yes Comment: 2/monthly Family History: Family History Problem Relation Age of Onset [...] Neg Hx ??? Ovarian Cancer Neg Hx Review of Systems as pertinent: Physical Exam Vital Signs: BP (!) 169/75 Temp 36.2 ??C (97.2 ??F) (Tympanic) Resp 16 Ht 167.6 cm (66) Wt 79.4 kg (175 lb) SpO2 98% BMI 28.25 kg/m?? Heart Examination: Cardiac Regularity: Regular Respiratory Examination: Respiratory Pattern: Regular Breath Sounds Right: Clear Breath Sounds Left: Clear Abdominal Examination: Soft, non-tender, bowel sounds normal, no masses, no organomegaly Additional physical exam related to the proposed procedure, patient activity, disease state and treatment as pertinent: Assessment Previous complications with sedation or anesthesia?: No Airway Concerns: None/NA Anesthesia Classification: ASA 2 Plan: Proceed with sedation for procedure Fasting Time: Date of Last Liquid: 02/24/21 Time of Last Liquid: 0730 Date of Last Solid: 02/23/21 Time of Last Solid: 1999 Patient Appropriate Candidate for Planned Sedation?: Yes Alan Milton MD 02/24/2021 14:21 documented in this encounter Nursing Notes Paige Payan - 02/24/2021 1446 EDT Pt sleeping. Appears comfortable. Paige clayton - 02/24/2021 1441 EDT Linear scope in Paige Payan - 02/24/2021 1436 EDT egd scope out aige Zarate - 02/24/2021 1434 EDT egd scope in documented in this encounter Miscellaneous Notes Sedation Documentation - Paige Payan - 02/24/2021 1446 EDT Abdominal pressure applied. edation Documentation - Paige Payan - 02/24/2021 1446 EDT Abdominal pressure applied. documented in this encounter Plan of Treatment Not on filedocumented as of this encounter Procedures Procedure Name Priority Date/Time Associated Comments Diagnosis ENDOSCOPIC Routine 02/24/2021 14:51 Results for this ULTRASOUND PROCEDURE EDT procedu re are in the results section. 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 Informed consent was obtained from the patient after explaining all the risks (perforation, bleeding, in fection, pancreatitis and adverse effects to the medicine) , benefits and alternatives to the procedure which the patient appeared to understand and so stated. ??BP and pulse monitorin g done. ??Oximetry was used. ??Supplemental O2 given. The patient was placed in the left lateral p osition. Continuous oxygen was provided with a nasal cannula and IV medicine administered thr u a indwelling cannula. After adequate sedation / anesthesia was achieved, the esophagus was intubated and the endoscope advanced under direct visualiz ation to the . ??The ??was identified by visual landmarks. The scope was subsequently re moved slowly while carefully examining the color, texture, anatomy, and integrity of the m ucosa on withdrawal. ??The echoendoscope was then inserted, and a complete echosonographic examination was performed as described in the findings section below. ??Upon completion the ec hoendoscope was removed and the patient was subsequently transferred to the recovery area in sat isfactory condition. Estimated Blood Loss: None Complications None Medications MAC Anesthesia See Anesthesia Record Findings EGD Findings: Esophagus: Normal Stomach: Yellowish, 2-3 cm subepithelial lesion at junction of gastric body and esophagus. ?? Soft upon forceps probing suspicious for lipoma (pillow sign) Duodenum: Normal EUS Findings: Images were obtained with the linear ech oendoscope CELIAC AXIS: Normal with no adenopathy LIVER: Visualized portion of left lobe w ithout mass or abnormality LEFT ADRENAL GLAND: Normal LEFT KIDNEY: Normal SPLEEN: Normal STOMACH: ??2-3 cm, hyperechoic mass in t he superficial wall layers consistent with lipoma. ?? Homogeneous. PANCREAS: normal in echotexture, no mass es. ??Non-dilated duct. 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 This electronic signature authenticates all electronic and/or handwritten documentation, including orders, generated by the reynaldo r during the episode of care contained in this record. 02/24/2021 02:51:30 PM By Alan Milton MD Performing Organization Address City/State/ZIP Code Phon e Number [facility] ENDOSCOPY documented in this encounter Visit Diagnoses Not on filedocumented in this encounter Administered Medications Inactive Administered Medications - up to 3 most recent administrations Medication Order MAR Action Action Date Dose Rate Site lactated ringers (LR) infusion New Bag 02/24/2021 14:05 EDT 30 mL/hr 30 mL/hr at 30 mL/hr, 30 mL/hr, intravenous, PRN, Starting on Tue02/24/21 at 1332, Until Tue02/27/21 at 0203, Routine, Preprocedure documented in this encounter Discontinued Medications Medication Sig Discontinue Reason Start Date End Date losartan (COZAAR) 25 mg Take 25 mg by mouth Therapy completed 02/24/2021 tablet daily. Pt states not taking documented as of this encounter Orders Medications Ordered That Might Not Have Count Last Ord ered Date First Ordered Date Been Administered atropine 0.1 mg/mL syringe 0.5 mg 1 02/24/2021 diphenhydrAMINE (BENADRYL) injection 25 mg 2 02/24 lactated ringers (LR) infusion 2 02/24/2021 lidocaine (PF) 10 mg/mL (1 %) injection 2 4 2020 mg naloxone (NARCAN) injection 0.2 mg 1 02/24/2021 sodium chloride 0.9 % (flush) flush 3 mL 2 021 sodium chloride 0.9 % (flush) flush 5 mL 2 021 sodium chloride 0.9 % (NS) infusion 2 02/24/2021 documented in this encounter Care Teams Purchase Request Editor Relationship Specialty Start Date End Date Campos Lopes MD PCP - General 05/21/09 [address] [place] [address] documented as of this encounter
--- OUTSIDE RECORDS SUMMARY | 2022-06-18 00:25 | XMS_ITS | Encounter Summary ---
:1940 Author Organization [facility] Address [address] [place] [address] Care Team Providers Name Role Phone Campos Lopes MD Primary Care Provider Reason for Visit Reason Onset Date Comments Medication Problem 05/06/2022 Encounter Details Date Type Department Care Team Description 05/06/2022 Telephone [facility] - [facility] Joelle Valentin MD Medication Problem Endocrinology [address] [place] [address] Social History Tobacco Use Types Packs/Day Years [...] this encounter Miscellaneous Notes Telephone Encounter - Lauren Givens - 05/11/2022 7047 EDT Patient called again, I spoke with Ilya and she is still working on this and will call her back elephone Encounter - Ilya Ferro MA - 05/11/2022 1409 EDT Neither or are familiar with Polymixin instillation so looks like that's will not be something we can offer. It is a med that needs to be given in a clinic setting not through a pharmacy from what I have found. I have discussed this with Juliane Mtz, Our physician general practice, whohas offered to call and speak with her d/t her last call w/ Kaye and her expressing how upset she isthat she has not got an answer right off. elephone Encounter - Ilya Ferro MA - 05/10/2022 0911 EDT Upon looking into this deeper it seems as though it cant be ordered from a pharmacy, it actually needs to be ordered and given in clinic and this may make it so the insurance will indeed cover it if done in-clinic. The issue is this was preferential treatment and we have have never used thishere and being a locum it doesn't seem practical to have it started here when he is only temporarilyhere. I will talk to and see if he would be willing to do them, maybe the other choice isher PCP? I will call after I discuss with Juan and see if he is open to this and also look and see if it is even something we can easily get through our pharmacy elephone Encounter - Lauren Givens - 05/06/2022 1235 EDT Patient notified that pa was denied and she should call her insurance. She wants Ilya to call her on Tuesday when she is back. documented in this encounter Plan of Treatment Not on filedocumented as of this encounter Visit Diagnoses Not on filedocumented in this encounter Care Teams Mold Filler Relationship Specialty Start Date End Date Campos Lopes MD PCP - General 05/21/09 [address] [place] [address] documented as of this encounter
--- OUTSIDE RECORDS SUMMARY | 2022-06-18 00:25 | XMS_ITS | Encounter Summary ---
:1940 Author Organization [facility] Address [address] [place] [address] Care Team Providers Name Role Phone Campos Lopes MD Primary Care Provider Reason for Visit Reason Onset Date Comments Other 03/02/2021 Encounter Details Date Type Department Care Team Description 03/02/2021 Telephone [facility] Alan Milton MD Other Gastroenterology - Main 111 [facility], [facility] 111 [facility], [address] [place], [place] [id number] [place] [address] [phone] (Wo rk) Social History Tobacco Use [...] this encounter Miscellaneous Notes Telephone Encounter - Roslyn Nunez - 03/02/2021 0753 EDT Per pt phone request message, sent EUS report to PCP documented in this encounter Plan of Treatment Not on filedocumented as of this encounter Visit Diagnoses Not on filedocumented in this encounter Care Teams Embedded Software Architect Relationship Specialty Start Date End Date Campos Lopes MD PCP - General 05/21/09 [address] [place] [address] documented as of this encounter
--- OUTSIDE RECORDS SUMMARY | 2022-06-18 00:25 | XMS_ITS | Encounter Summary ---
:1940 Author Organization [facility] Address [address] [place] [address] Care Team Providers Name Role Phone Campos Lopes MD Primary Care Provider Reason for Visit Reason Onset Date Comments Update 01/12/2022 Encounter Details Date Type Department Care Team Description 01/12/2022 Telephone [facility] John Lanier MD Update Endocrinology [address] [facility] 130 [facility] [address] [place] [phone] (Wo rk) Social History Tobacco Use Types [...] Notes Telephone Encounter - Lauren Givens - 01/12/2022 1006 EDT Compounding meds, patient is going to cancel it.. She sent you a letter as well documented in this encounter Plan of Treatment Not on filedocumented as of this encounter Visit Diagnoses Not on filedocumented in this encounter Care Teams Cordwood Cutter Relationship Specialty Start Date End Date Campos Lopes MD PCP - General 05/21/09 [address] [place] [address] documented as of this encounter
--- OUTSIDE RECORDS SUMMARY | 2022-06-18 00:25 | XMS_ITS | Encounter Summary ---
:1940 Author Organization [facility] Address [address] [place] [address] Care Team Providers Name Role Phone Campos Lopes MD Primary Care Provider Reason for Referral Consult (See Order Priority) - Closed Specialty Diagnoses / Procedures Referred By Contact Refer red To Contact Pelvic Medicine Diagnoses Chronic interstitial cystitis John Martinez MD [facility] Pelvic [facility] [address] [facility] [address] [place] [phone] [address] [facility] [place] [address] Phone: Fax: Referral ID Status Reason Start Date Expiration Date Visits V isits Requested Authorized [id number] Closed Specialty 01/07/2022 1 1 Services Required Question Answer Reason for Request: interstitial cystitis edication Prior Authorization - Denied Specialty Diagnoses / Procedures Referred By Contact Refer red To Contact John Martinez M D [address] [facility] [address] [place] [address] Referral ID Status Reason Start Date Expiration Date Visits Requ ested Visits Authorized [id number] Denied 1 1 Reason for Visit Reason Comments Follow-up Encounter Details Date Type Department Care Team Description 01/07/2022 Office Visit [facility] - John Martinez uent UTI (Primary Dx); [facility] MD Karen Chronic interstitial cystitis [address] [place] [address] [address] [place] [phone] Social History Tobacco Use Types Packs/Day Years [...] Sig Dispensed Refills Start Date End Date phenazopyridine (PYRIDIUM) Take 1 Tablet by 90 Tablet 5 100 mg tablet mouth 3 times daily as needed for Pain. lidocaine (XYLOCAINE) 2 % Apply to urethra 30 mL 3 12/10 jelly twice daily as needed documented in this encounter Progress Notes John Martinez MD - 01/07/2022 1330 EDT 01/07/2022 FOLLOWUP CHIEF COMPLAINT Follow-up PATIENT: Maureen Thomas HISTORY OF PRESENT ILLNESS Maureen Thomas is a very pleasant 81 y.o. female who presents with chronic IC. Symptoms recently marked by urgency, frequency and urethral pain, minimal bladder pain with fullness. Had about 3 days of relief after last instillation. Contacted by [facility] for home German cocktail admin. Will be receiving 4 instillations for weekly use. PAST HISTORY Past Medical History: Diagnosis Date ??? Acquired complex renal cyst 07/31/2018 ??? Activity, other involving cardiorespiratory exercise able to climb 1 FOS sometimes; gardening ??? Asthma 11/10/2020 - exercise induced / cold weather; pt denies 02/17/2021 ??? Basal cell carcinoma of skin 10/22/2021 ??? COPD (chronic obstructive pulmonary disease) (HCC-CMS) (HCC) well controlled with inhalers per pt [...] 10/22/2021) ??? lidocaine (XYLOCAINE) 2 % jelly Apply to urethra twice daily as needed 30 mL 3 ??? lidocaine (XYLOCAINE) 2 [...] ??? Mirabegron Other (See Comments) ??? Amitriptyline INFECTION CONTROL PRACTITIONER changes at low dose ??? Ciprofloxacin Other [...] Mood normal. Behavior: Behavior normal. DIAGNOSTIC DATA Office Visit on 01/07/2022 Component Date Value Ref Range Status ??? Color, UA 01/07/2022 Yellow Final ??? Clarity, UA 01/07/2022 Clear Final ??? Glucose, UA 01/07/2022 Negative . mg/dL Final ??? Bilirubin, UA 01/07/2022 Negative Negative Final ??? Ketones, UA 01/07/2022 Negative . mg/dL Final ??? Spec Grav, UA 01/07/2022 1.020 1.005 - 1.030 Final ??? Blood, UA 01/07/2022 Trace (A) Negative Final ??? pH, UA 01/07/2022 7.5 4.6 - 8.0 Final ??? Protein, UA 01/07/2022 Negative . mg/dL Final ??? Urobilinogen, UA 01/07/2022 0.2 0.2 - 1.0 E.U./dL Final ??? Nitrite, UA 01/07/2022 Negative . Final ??? Leuk Esterase 01/07/2022 Negative Negative Final BMP: Lab Results Component Value Date NA 138 09/18/2019 K 4.3 09/18/2019 CL 103 09/18/2019 CO2 27 09/18/2019 BUN 21 09/18/2019 CREATININE 0.75 09/18/2019 CALCIUM 9.8 09/18/2019 CALCCA 9.3 09/18/2019 PHOS 3.9 09/18/2019 LABALBU 4.6 09/18/2019 DIAGNOSIS 1. Frequent UTI POCT URINALYSIS BACTERIAL CULTURE, URINE BACTERIAL CULTURE, URINE 2. Chronic interstitial cystitis AMB CONS/FOLLOW UP UROLOGY ASSESSMENT 81yoF w/ chronic IC -intravesical instillation administered by me w/ 14fr catheter under sterile conditions -self administration discussed and teaching provided. Catheters supplied for use -pyridium and topical lidocaine ordered -offered hydrodistention discussed and offered to the patient and she will consider -discussed the use of elmiron which is identified as an allergy. She is unsure if had adverse rxn tothat previously and the documentation regarding that is incomplete. Would consider a trial of that -given the chronicity and severity I do advise a consultation with Dr. Collins and a referral has been entered. -will send urine for culture today, suspect will be negative. PLAN Other Orders Placed This Visit Procedures ??? Bacterial Culture, Urine ??? Amb Consult/Follow Up Urology ??? POCT Urinalysis John Martinez MD Electronicaly signed by: John Martinez MD documented in this encounter Miscellaneous Notes Result QuickNote - John Martinez MD - 01/07/2022 1330 EDT Ceftin 500 bid x 10 days ordered to pharmacy on file. Please inform patient documented in this encounter Plan of Treatment Scheduled Referrals Name Type Priority Associated Diagnoses Order S chedule AMB CONS/FOLLOW Outpatient Routine/Next Chronic interstitial Expe cted: UP UROLOGY Referral Available cystitis 02/06/2022 (Approximate), Expires: 01/07/2023 documented as of this encounter Procedures Procedure Name Priority Date/Time Associated Comments Diagnosis BACTERIAL CULTURE, Routine 01/07/2022 14:06 Frequent UTI Resul ts for this URINE EDT procedure are i n the results section. POCT URINALYSIS Routine 01/07/2022 13:48 Frequent UTI Results for this EDT procedure are i n the results section. documented in this encounter Results (ABNORMAL) BACTERIAL CULTURE, URINE (01/07/2022 14:06 EDT) Organism ID Greater than 100,000 CFU/ml Escherichia coli (A) [facility] Comment: [facility] Cefazolin susceptibility res ults can be used to predict susceptibility results for the following oral cephalosporins when used for therapy of uncomplicated UTI's due to E.coli, K.pneumoniae and P.mirabi lis: cefaclor, cefdinir, cef podoxime, cefprozil, cefuroxime, cephalexin and loracarbef. ??Please note that only cefdinir, cefpodoxime, cefuroxime and cephalexin are on the [facility] inpatient formulary. Specimen Urine - Urine specimen collection, clean catch (procedure) Organism Antibiotic Method Susceptibility Escherichia coli Amoxicillin Clavulanic VITEK SUSCEPTIBILITY 4 u g/mL: Susceptible acid Escherichia coli Ampicillin VITEK SUSCEPTIBILITY 8 ug/mL: S usceptible Escherichia coli Ampicillin Sulbactam VITEK SUSCEPTIBILITY 4 ug/ mL: Susceptible Escherichia coli Cefazolin VITEK SUSCEPTIBILITY <=4 ug/mL: Susceptible Escherichia coli Cefepime VITEK SUSCEPTIBILITY <=1 ug/mL: Susceptible Escherichia coli Ceftriaxone VITEK SUSCEPTIBILITY <=1 ug/mL: Susceptible Escherichia coli Ciprofloxacin VITEK SUSCEPTIBILITY <=0.25 ug/ mL: Susceptible Escherichia coli Ertapenem VITEK SUSCEPTIBILITY <=0.5 ug/m L: Susceptible Escherichia coli Gentamicin VITEK SUSCEPTIBILITY <=1 ug/mL: Susceptible Escherichia coli Levofloxacin VITEK SUSCEPTIBILITY <=0.12 ug/ mL: Susceptible Escherichia coli Nitrofurantoin VITEK SUSCEPTIBILITY <=16 ug/mL : Susceptible Escherichia coli Piperacillin Tazobactam VITEK SUSCEPTIBILITY <= 4 ug/mL: Susceptible Escherichia coli Tobramycin VITEK SUSCEPTIBILITY <=1 ug/mL: Susceptible Escherichia coli Trimethoprim-Sulfamethox VITEK SUSCEPTIBILITY < =20 ug/mL: Susceptible azole Performing Organization Address City/State/ZIP Code Phon e Number [facility] [address] [place] [address] (ABNORMAL) POCT URINALYSIS (01/07/2022 13:48 EDT) Pathologist Sig nature Color, UA Yellow [facility] Clarity, UA Clear [facility] Glucose, UA Negative . mg/dL [facility] Bilirubin, UA Negative Negative [facility] Ketones, UA Negative . mg/dL [facility] Spec Grav, UA 1.020 1.005 - 1.030 [facility] Blood, UA Trace (A) Negative [facility] pH, UA 7.5 4.6 - 8.0 [facility] Protein, UA Negative . mg/dL [facility] Urobilinogen, UA 0.2 0.2 - 1.0 E.U./dL [facility] Nitrite, UA Negative . [facility] Leuk Esterase Negative Negative [facility] Comment [facility] Specimen Urine - Urine specimen collection, clean catch (procedure) Performing Organization Address City/State/ZIP Code Phon e Number [facility] documented in this encounter Visit Diagnoses Diagnosis Frequent UTI - Primary Urinary tract infection, site not specif ied Chronic interstitial cystitis documented in this encounter Orders Medications Ordered That Might Not Have Count Last Ord ered Date First Ordered Date Been Administered heparin 20,000 Units, methylPREDNISolone 1 022 sod suc(PF) (SOLU-MEDROL) 125 mg, sodium bicarbonate 8.4 % 5 mL, lidocaine 20 mg/mL (2 %) 10 mL, sterile water (PF) 26 mL bladder irrigation documented in this encounter Care Teams Public Opinion Survey Taker Relationship Specialty Start Date End Date Campos Lopes MD PCP - General 05/21/09 [address] [place] [address] documented as of this encounter
--- OUTSIDE RECORDS SUMMARY | 2022-06-18 00:25 | XMS_ITS | Encounter Summary ---
:1940 Author Organization [facility] Address [address] [place] [address] Care Team Providers Name Role Phone Campos Lopes MD Primary Care Provider Reason for Visit (Routine) - Receiving Office to Obtain Authorization Specialty Diagnoses / Procedures Referred By Contact Refer red To Contact Procedures Unknown, Provider, XR OUTSIDE IMAGES CHEST Phone: Referral ID Status Reason Start Expiration Visits Visits Date Date Requested Authorized [id number] Receiving Office 12/06/2020 1 1 to Obtain Authorization Encounter Details Date Type Department Care Team Description 11/19/2020 Hospital Encounter [facility] Secondary Read[place] Social History Tobacco Use [...] Name Priority Date/Time Associated Diagnosis Comme nts XR OUTSIDE IMAGES Routine 12/06/2020 8:10 EST Res ults for this CHEST procedure are i n the results section. documented in this encounter Results XR OUTSIDE IMAGES CHEST (12/06/2020 8:10 EST) Specimen Narrative 12/06/2020 8:10 EST This is a non-reportable exam. documented in this encounter Visit Diagnoses Not on filedocumented in this encounter Care Teams Resident Care Aid Relationship Specialty Start Date End Date Campos Lopes MD PCP - General 05/21/09 [address] [place] [address] documented as of this encounter
--- OUTSIDE RECORDS SUMMARY | 2022-06-18 00:25 | XMS_ITS | Encounter Summary ---
:1940 Author Organization [facility] Address [address] [place] [address] Care Team Providers Name Role Phone Campos Lopes MD Primary Care Provider Reason for Visit Reason Comments Follow-up Cataracts Encounter Details Date Type Department Care Team Description 11/26/2021 Office Visit [facility] Ariana Means MD Ophthalmology - [place] in [address] [place] [phone] [address] [place], [place] [address] [phone] Social History Tobacco Use Types Packs/Day Years [...] documented as of this encounter Progress Notes Brenden Means MD - 11/26/2021 6886 EST Chief Complaint Patient presents with ??? Follow-up Cataracts HPI The patient is a 81 y.o. female here for follow up of cataracts. She reports that her vision has notchanged significantly. she has no eye pain, double vision, or new flashes/floaters. Right Eye: NL Left Eye: NL Visual Aid: None Current Rx Age Location: Both eyes Pain: 0 - No pain Quality: Severity: Mild Duration: Years Timing: Lasts: Context: Yearly eye exam- using otc readers only for close up (does not have them with her) Modifying factors: No new floaters or flashes of light. No eye pain. Associated Signs & Symptoms: She would like a pair of prescription reading glasses. Attestation: ROS Constitutional: NL ENT/Mouth NL Cardiovascular: High Blood Pressure, High Cholesterol Respiratory: Wheezing (asthma) Gastrointestinal: (reflux) Genitourinary: NL Musculoskeletal: (back pain) Integumentary: NL Neurologic: NL Psychiatric: NL Endocrine: Thyroid problems Hematologic: NL Immunologic: Drug Allergy Dispatcher Electric Power: Exposures: None Other: Attestation: Base Eye Exam Visual Acuity (Snellen - Linear) Right Left Dist sc 20/80 20/40 Dist ph sc 20/50 +2 NI Tonometry (Applanation, 14:29) Right Left Pressure 19 21 Pupils Pupils APD Right PERRL None Left PERRL None Visual Abrams (Counting fingers) Right Left Full Full Extraocular Movement Right Left Full Full Neuro/Psych Oriented x3: Yes Mood/Affect: Normal Dilation Both eyes: Phenylephrine 2.5%, Tropicamide 1% @ 14:29 Slit Lamp and Fundus Exam External Exam Right Left External Normal Normal Slit Lamp Exam Right Left Lids/Lashes Normal Normal Conjunctiva/Sclera White and quiet White and quiet Cornea Mild ABMD changes Mild ABMD changes Anterior Chamber Deep and quiet Deep and quiet Iris Round and reactive Round and reactive Lens 2+ Nuclear sclerosis, Trace Cortical cataract, Vacuoles 2+ Nuclear sclerosis, 1+ Cortical cataract, Trace Posterior subcapsular cataract Fundus Exam Right Left Vitreous Posterior vitreous detachment Normal Disc Normal Normal C/D Ratio 0.35 0.35 Macula Normal Few drusen Vessels Normal Normal Periphery Normal Normal Refraction Manifest Refraction (Auto) Sphere Cylinder Ware Dist VA Add Near VA Right +1.75 +1.00 180 Left +1.00 +1.25 170 Manifest Refraction #2 Sphere Cylinder Ware Dist VA Add Near VA Right +1.75 +0.75 180 20/25 +2.50 J1+ Left +0.75 +1.25 005 20/25 +2.50 J1+ Final Rx Sphere Cylinder Ware Right +4.25 +0.75 180 Left +3.25 +1.25 005 Type: READING GLASSES Expiration Date: 11/27/2023 DIAGNOSTIC TESTING/PROCEDURES: IMPRESSION & PLAN: 1. Cataract, both eyes Not visually significant -Monitor periodically 2. Posterior vitreous detachment, right eye Stable, monitor periodically 3. Disorder of refraction and accommodation -Give glasses Rx (readers) patient???s option to fill I have reviewed the patient's past medical, family, social and surgical history. I have also reviewed the patient's medications, allergies, and problem list. I performed my own HPI and have reviewed the tech's ROS as well. I completed this exam personally. Brenden Means MD I am scribing for Brenden Means MD, while he is personally performing the service. 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 - Primary Combined form of senile cataract of left eye Posterior vitreous detachment of right e ye Vitreous degeneration Refractive error Unspecified disorder of refraction and a ccommodation documented in this encounter Eye Exam Visual Acuity (Snellen - Linear) Right eye Left eye Dist sc 20/80 20/40 Dist ph sc 20/50 +2 NI Tonometry (Applanation, 14:29) Right eye Left eye Pressure 19 21 Pupils Pupils APD Right eye PERRL None Left eye PERRL None Visual Abrams (Counting fingers) Right eye Left eye Full Full Extraocular Movement Right eye Left eye Full Full Neuro/Psych Oriented x3: Yes Mood/Affect: Normal Dilation Both eyes: Phenylephrine 2.5%, Tropicami de 1% @ 14:29 External Exam Right eye Left eye External Normal Normal Slit Lamp Exam Right eye Left eye Lids/Lashes Normal Normal Conjunctiva/Sclera White and quiet White and quiet Cornea Mild ABMD changes Mild ABMD changes Anterior Chamber Deep and quiet Deep and quiet Iris Round and reactive Round and reactive Lens 2+ Nuclear sclerosis, Trace 2+ Nuclear s clerosis, 1+ Cortical Cortical cataract, Vacuoles cataract, Tr mehreen Posterior subcapsular cataract Vitreous Posterior vitreous detachment Normal Fundus Exam Right eye Left eye Disc Normal Normal C/D Ratio 0.35 0.35 Macula Normal Few drusen Vessels Normal Normal Periphery Normal Normal Manifest Refraction #1 (Auto) Sphere Cylinder Ware Dist VA Add Near VA Right eye +1.75 +1.00 180 Left eye +1.00 +1.25 170 Manifest Refraction #2 Sphere Cylinder Ware Dist VA Add Near VA Right eye +1.75 +0.75 180 20/25 +2.50 J1+ Left eye +0.75 +1.25 005 20/25 +2.50 J1+ Final Rx Sphere Cylinder Ware Right eye +4.25 +0.75 180 Left eye +3.25 +1.25 005 Type: READING GLASSES Expiration Date: 11/27/2023 Care Teams Whiskey Filterer Relationship Specialty Start Date End Date Campos Lopes MD PCP - General 05/21/09 [address] [place] [address] documented as of this encounter
--- OUTSIDE RECORDS SUMMARY | 2022-06-18 00:25 | XMS_ITS | Encounter Summary ---
:1940 Author Organization [facility] Address [address] [place] [address] Care Team Providers Name Role Phone Campos Lopes MD Primary Care Provider Reason for Visit Reason Onset Date Comments Update 01/11/2022 Encounter Details Date Type Department Care Team Description 01/11/2022 Telephone [facility] John Lanier MD Update Endocrinology [address] [facility] [address] [facility] [address] [place] [phone] (Wo rk) Social History Tobacco Use Types [...] Notes Telephone Encounter - Lauren Givens - 01/11/2022 1046 EDT Patient wants to speak with dr sauer regarding compounding medication. Please call her documented in this encounter Plan of Treatment Not on filedocumented as of this encounter Visit Diagnoses Not on filedocumented in this encounter Care Teams Insulation Worker Furnace Installer Relationship Specialty Start Date End Date Campos Lopes MD PCP - General 05/21/09 [address] [place] [address] documented as of this encounter
--- OUTSIDE RECORDS SUMMARY | 2022-06-18 00:25 | XMS_ITS | Encounter Summary ---
:1940 Author Organization [facility] Address [address] [place] [address] Care Team Providers Name Role Phone Campos Lopes MD Primary Care Provider Encounter Details Date Type Department Care Team Description 02/24/2021 Anesthesia Event [facility] Arabella Plascencia MD 111 [facility] 2 [place] [address] Endoscopy - Main Cam Harlan Anne MD [address] [phone] [address] [place], [place] [id number] Anesthesia Record Procedure Summary Procedure Name Responsible Anesthesia Start Anesthesia Stop Anesthesiologist Time Time ENDOSCOPIC US Negar Plascencia MD 02/24/21 1430 02/24/21 1 457 REQUEST Events Date Time Event Comment 02/24/2021 1430 An Start The patient was re-evaluated immediately before moderate or deep sedation use, before anesthesia induction, or be fore the anesthesia procedure. 1430 An Start Data 1431 Anesthesia Ready 1447 an stop data 1456 Handoff to RN I completed my h andoff to the receiving nurse during which we: 1. Yarelis ntified the patient 2. Identified the responsible provider 3. Reviewed the pertinent medical history 4. Discussed the surgical course 5. Reviewed intra-o p anesthesia management and issues during anesthesi a 6. Set expectations for post-procedure p eriod 7. Allowed opportunity for questions and ac knowledgement of understanding. 1457 An Stop Name Total glycopyrrolate pre-filled syringe 0.2 mg ketAMINE 5 mL prefilled syringe 10 mg lidocaine 2% (PF) injection glass vial 50 mg propOFol (DIPRIVAN) injection 100 mg propofol (DIPRIVAN) 500 mg in 50 mL infusion 136,568 m cg lactated ringers (LR) infusion Cannot be calculated labetalol pre-filled syringe 10 mL 15 mg Agents Name Aux O2 flow Blood No blood administrations on file. Lines, Drains, and Airways Type Details Placement Removal Peripheral IV 02/24/21; 1405; 20; 1.25; B 02/24/21 1405 by 1527 by Restrepo Introcan; Posterior, Ariela Hernandez RN Knoepfel, Vicki, RN Right; Hand; Inserted by RN; 2; None; 3.15% Chlorhexidine with IPA; 02/24/21; 1527; Therapy completed; No complications documented in this encounter Social History Tobacco Use Types Packs/Day Years [...] making decisions? documented as of this encounter OR Notes Anesthesia Postprocedure Evaluation - Harlan Estes MD - 02/24/2021 0368 EDT Patient: Maureen Thomas Vital signs were reviewed with the recovery nurse. Complete vitals history is available in the Epic flowsheets. Last Pain Score - Numeric Pain Level (Scale 1-10): 0 Type of Anesthesia - general Anesthesia Post Evaluation Post-procedure vitals reviewed and are stable. Level of consciousness: awake Temperature status: normothermia and patient returned to pre-procedure baseline Respiratory status: airway patent and stable Cardiovascular status: stable Hydration status: adequate Nausea/Vomiting: none Pain management: adequate Post-Op Assessment: patient tolerated procedure well with no complications Patient participation: able to participate Disposition: outpatient/home Anesthesia Complications: No apparent anesthesia complications Anesthesia Preprocedure Evaluation - Harlan Estes MD - 02/24/2021 2550 EDT Anesthesia Preprocedure Evaluation Patient Medical History, including Anesthesia History reviewed. Chart and Nursing Notes reviewed, including NPO status and Medication History. Additional ROS/History Findings: Allergies Allergen Reactions ??? Dye Anaphylaxis IVP DYE ??? Ciprofloxacin Other (See Comments) Ectopic heart beats ??? Elmiron [Pentosan Polysulfate Sodium] Unknown To pt ??? Epinephrine tachycardia ??? Iodine And Iodide Containing Products Hives ??? Lisinopril Other reaction(s): Unknown Pt does not recall ??? Methimazole Other (See Comments) unknown Review of Systems Constitutional: Negative for chills and fever. HENT: Negative for sore throat. Respiratory: Negative for cough, shortness of breath and wheezing. Cardiovascular: Negative for chest pain. Gastrointestinal: Negative for heartburn. Past Medical History: Diagnosis Date ??? Activity, other involving cardiorespiratory exercise able to climb 1 FOS sometimes; gardening ??? Asthma 11/10/2020 - exercise induced / cold weather; pt denies 02/17/2021 ??? COPD (chronic obstructive pulmonary disease) ([facility]) well controlled with inhalers per [...] month, resolved with abx per pt 02/16/2021 Relevant Problems CARDIOVASCULAR (+) Hypertensive disorder Physical Exam Airway Mallampati: II TM distance: >3 FB Neck ROM: full Cardiovascular - normal exam Rhythm: regular Rate: normal Dental - normal exam Pulmonary - normal exam Breath sounds clear to auscultation Abdominal - normal exam Anesthesia Plan ASA 2 Anesthesia Type - MAC, to include intravenous induction. Block for post-op pain? No Anesthesia plan and risks discussed. Informed consent obtained from patient. Specific risks discussed were dental injury, other, nausea and vomiting. Code status discussed? No The preoperative history and physical which was performed within 30 days of this procedure, has beenreviewed and the clinically appropriate elements of the physical examination have been repeated. There are no changes to the documented history and physical or, if so, such changes are documented in this note PAT Note (Notes from 01/25/21 through 02/24/21) No notes of this type exist for this encounter. documented in this encounter Plan of Treatment Not on filedocumented as of this encounter Visit Diagnoses Not on filedocumented in this encounter Administered Medications Inactive Administered Medications - up to 3 most recent administrations Medication Order MAR Action Action Date Dose Rate Site glycopyrrolate (PF) (ROBINUL) 0.4 Given 02/24/2021 14:31 EDT 0.2 mg mg/2 mL (0.2 mg/mL) injection PRN, Starting on Tue02/24/21 at 1431, Until Tue02/24/21 at 1457, Routine, Anesthesia Intraprocedure ketAMINE in NaCl, iso-osmotic (KETALAR) 50 mg/5 Given 02/24/2021 14:33 EDT 10 mg mL (10 mg/mL) IV injection PRN, Starting on Tue02/24/21 at 1433, Until Tue02/24/21 at 1457, Routine, Anesthesia Intraprocedure labetalol (TRANDATE) injection Given 02/24/2021 14:41 EDT 10 mg PRN, Starting on Tue02/24/21 at 1438, Until Tue02/24/21 at 1457, Routine, Anesthesia Intraprocedure Given 02/24/2021 14:38 EDT 5 mg lactated ringers (LR) infusion New Bag 02/24/2021 14:30 EDT intravenous, FA IP EQF CONTINUOUS PRN FOR ONE STEP MEDS, Starting on Tue02/24/21 at 1430, Until Tue02/24/21 at 1457, Routine, Anesthesia Intraprocedure lidocaine (PF) 20 mg/mL (2 %) injection Given 02/24/2021 14:32 EDT 50 mg PRN, Starting on Tue02/24/21 at 1432, Until Tue02/24/21 at 1457, Routine, Anesthesia Intraprocedure propOFol (DIPRIVAN) 500 Rate Change 02/24/2021 14:42 EDT 120 mcg/k g/min 57.2 mL/hr mg in 50 mL infusion FA IP EQF CONTINUOUS PRN FOR ONE STEP MEDS, Starting on Tue02/24/21 at 1430, Until Tue02/24/21 at 1457, Routine, Anesthesia Intraprocedure Rate Change 02/24/2021 14:37 EDT 100 mcg/kg/min 47.6 mL/hr New Bag 02/24/2021 14:30 EDT 140 mcg/kg/min 66.7 mL/hr propOFol (DIPRIVAN) injection Given 02/24/2021 14:34 EDT 50 mg PRN, Starting on Tue02/24/21 at 1432, Until Tue02/24/21 at 1457, Routine, Anesthesia Intraprocedure Given 02/24/2021 14:32 EDT 50 mg documented in this encounter Care Teams Brush Hand Relationship Specialty Start Date End Date Campos Lopes MD PCP - General 05/21/09 [address] [place] [address] documented as of this encounter
--- OUTSIDE RECORDS SUMMARY | 2022-06-18 00:25 | XMS_ITS | Encounter Summary ---
:1940 Author Organization [facility] Address [address] [place] [address] Care Team Providers Name Role Phone Campos Lopes MD Primary Care Provider Encounter Details Date Type Department Care Team Description 11/02/2021 Orders Only [facility] [place] John Lanier MD Urology Clinic [address] [place] [address] [place] [phone] (Wo rk) Social History Tobacco Use Types [...] on filedocumented in this encounter Care Teams Parking Assistant Relationship Specialty Start Date End Date Campos Lopes MD PCP - General 05/21/09 [address] [place] [address] documented as of this encounter
--- OUTSIDE RECORDS SUMMARY | 2022-06-18 00:25 | XMS_ITS | Encounter Summary ---
:[address] [facility] Address [address] [place] [address] Care Team Providers Name Role Phone Campos Lopes MD Primary Care Provider Reason for Visit Reason Onset Date Comments COVID-19 01/23/2021 Encounter Details Date Type Department Care Team Description 01/23/2021 Telephone [facility] - MARILOU strauss, Alan Shea MD COVID-19 [facility]BILE [address] [address] Amandeep Ohara [address] [place] [phone] (Wo rk) Social History Tobacco [...] this encounter Miscellaneous Notes Telephone Encounter - Jamal Ho - 01/23/2021 7056 EDT Patient advised they would like covid testing done at [facility]. Content Coordinator faxed the order to [phone] and asked that they schedule the patient for testing on 01/31/21 or 01/30/21. Also made patientaware of testing dates and the need to quarantine after testing. Content Coordinator will also remove patient from the work queue. documented in this encounter Plan of Treatment Not on filedocumented as of this encounter Visit Diagnoses Not on filedocumented in this encounter Care Teams Physical Therapist Relationship Specialty Start Date End Date Campos Lopes MD PCP - General 05/21/09 [address] [place] [address] documented as of this encounter
--- OUTSIDE RECORDS SUMMARY | 2022-06-18 00:25 | XMS_ITS | Encounter Summary ---
:1940 Author Organization [facility] Address [address] [place] [address] Care Team Providers Name Role Phone Campos Lopes MD Primary Care Provider Reason for Visit Reason Onset Date Comments Medications Refill 01/20/2022 Encounter Details Date Type Department Care Team Description 01/20/2022 Telephone [facility] [place] Martinez, Medications Refill Endocrinology [address] [place] [phone] (Wo rk) Social History Tobacco Use Types [...] this encounter Miscellaneous Notes Telephone Encounter - Ilya Ferro MA - 01/21/2022 1538 EDT PA was denied, pt aware. elephone Encounter - Lauren Givens - 01/20/2022 0925 EDT Patient needs kira gamino called to [facility] [place] . Please let patient know when done. Says she has been trying to get this for awhile now and wants to hear from someone here please documented in this encounter Plan of Treatment Not on filedocumented as of this encounter Visit Diagnoses Not on filedocumented in this encounter Care Teams Marble Cleaner Relationship Specialty Start Date End Date Campos Lopes MD PCP - General 05/21/09 [address] [place] [address] documented as of this encounter
--- OUTSIDE RECORDS SUMMARY | 2022-06-18 00:25 | XMS_ITS | Encounter Summary ---
:1940 Author Organization [facility] Address [address] [place] [address] Care Team Providers Name Role Phone Campos Lopes MD Primary Care Provider Reason for Visit Reason Comments Follow-up Encounter Details Date Type Department Care Team Description 11/30/2021 Procedure visit [facility] - John Martinez ecurrent UTI [facility] [place] [facility] MD Karen (Primary Dx) [address] [place] [address] [address] [place] [address] Social History Tobacco Use Types Packs/Day Years [...] Sig Dispensed Refills Start Date End Date cephalexin (KEFLEX) 500 mg Take 1 capsule by 30 capsule 5 capsule mouth daily. documented in this encounter Progress Notes John Martinez MD - 11/30/2021 1330 EST Reason for Cystoscopy: Check for abnormalities November 30, 2021/13:35 Patient: Maureen Thomas Scope #: [id number] Has this been documented in the log: Yes Procedure Time Out: Procedure: Cystoscopy Date & Time: 11/30/2021 13:35 Patient Identified: Maureen Thomas , 1940 Agreement on procedure to be done was verified. Correct Patient Position verified. Allergies were verified. Accurate Procedure Consent Form verified and signed.Procedure Side and Site verified. Time Out Team Members: Dr. John Martinez MD & Ilya Ferro CMA/PRATIK. After risks of bleeding, infection and urethral irritation were reviewed, informed consent was obtained. The patient was placed in frogleg position and the genitalia prepped in sterile fashion. The cystoscope was navigated through the urethra and into bladder without difficulty. Circumferential panendoscopy revealed no foreign bodies, stones or mucosal abnormalities. Both ureteral orifices were in the expected position effluxing clear urine. The scope was retroflexed and no abnormalities were seenat the bladder neck. The scope was slowly removed and no urethral abnormalities were seen. The patient tolerated the procedure well. 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 Pt to hold for 30 min prior to voiding. Start Keflex 500mg daily UTI PPx Has used estrace intermittently for several years. Has never used regularly. In September used daily for 2 weeks, then to twice weekly. Recommend patient continue to use that twice weekly ongoing. Pt will contact us next week if wishes to have intravesical tx repeated in 2 weeks documented in this encounter Plan of Treatment Not on filedocumented as of this encounter Procedures Procedure Name Priority Date/Time Associated Diagnosis Comme nts BACTERIAL CULTURE, Routine 11/30/2021 13:47 Recurrent UTI Resu lts for this URINE EST procedure are i n the results section. documented in this encounter Results BACTERIAL CULTURE, URINE (11/30/2021 13:47 EST) Pathologist Sig nature Organism ID [id number], [id number] to 100,000 [facility] CFU/ml Comment: Usual [facility] urogenital jose.. Specimen Urine - Urine specimen collection, clean catch (procedure) Performing Organization Address City/State/ZIP Code Phon e Number [facility] [address] [place] [address] documented in this encounter Visit Diagnoses Diagnosis Recurrent UTI - Primary Urinary tract infection, site not specif ied documented in this encounter Discontinued Medications Medication Sig Discontinue Reason Start Date End Date cephalexin (KEFLEX) TAKE 1 CAPSULE BY 09/11/2021 500 mg capsule MOUTH THREE TIMES DAILY amoxicillin (AMOXIL) AMOXICILLIN 875 MG 09/21/2021 0 11/30/2021 875 mg tablet TABS nitrofurantoin, 1 Capsule every 12 07/07/20202021 macrocrystal-monohydra hours. te, (MACROBID) 100 mg capsule levOFLOXacin LEVOFLOXACIN 500 MG 04/30/2021 11/30/19 22 (LEVAQUIN) 500 mg TABS tablet documented as of this encounter Historical Medications This list may reflect changes made after this encounter. Medication Sig Dispensed Refills Start Date End Date atenoloL (TENORMIN) 25 mg Take 25 mg by mouth 0 0 10/19/2021 tablet daily. ipratropium (ATROVENT) 42 USE 2 SPRAYS IN EACH 0 11/23/2021 mcg (0.06 %) nasal spray NOSTRIL THREE TIMES DAILY FOR 5 DAYS added in this encounter Orders Medications Ordered That Might Not Have Count Last Ord ered Date First Ordered Date Been Administered heparin 20,000 Units, methylPREDNISolone 1 022 sod suc(PF) (SOLU-MEDROL) 125 mg, sodium bicarbonate 8.4 % 5 mL, lidocaine 20 mg/mL (2 %) 10 mL, sterile water (PF) 26 mL bladder irrigation documented in this encounter Care Teams Lens Generating Machine Tender Relationship Specialty Start Date End Date Campos Lopes MD PCP - General 05/21/09 [address] [place] [address] documented as of this encounter
--- OUTSIDE RECORDS SUMMARY | 2022-06-18 00:25 | XMS_ITS | Encounter Summary ---
:1940 Author Organization [facility] Address [address] [place] [address] Care Team Providers Name Role Phone Campos Lopes MD Primary Care Provider Encounter Details Date Type Department Care Team Description 04/18/2022 Lab Requisition [facility] Outr Resulting Lab, Pathology & Laboratory Provider [facility] [address] [place] [phone] Social History Tobacco Use Types Packs/Day Years [...] Name Priority Date/Time Associated Diagnosis Comme nts T3 FREE Routine 04/18/2022 17:46 EDT Results for this procedure are i n the results section . documented in this encounter Results (ABNORMAL) T3 FREE (04/18/2022 17:46 EDT) Pathologist Sig nature T3, Free 7.3 (H) 2.8 - 5.3 pg/mL [facility] Specimen Blood - Venous blood (substance) Performing Organization Address City/State/ZIP Code Phon e Number [facility] [address] [place] [address] SERVICES documented in this encounter Visit Diagnoses Not on filedocumented in this encounter Care Teams Gang Hemstitching Machine Operator Relationship Specialty Start Date End Date Campos Lopes MD PCP - General 05/21/09 [address] [place], [place] [id number] documented as of this encounter
--- OUTSIDE RECORDS SUMMARY | 2022-06-18 00:25 | XMS_ITS | Encounter Summary ---
:1940 Author Organization [facility] Address [address] [place] [address] Care Team Providers Name Role Phone Campos Lopes MD Primary Care Provider Encounter Details Date Type Department Care Team Description 02/20/2021 Lab Requisition [facility] Outr Resulting Lab, Pathology & Laboratory Provider [facility] [address] [place] [phone] Social History Tobacco Use Types Packs/Day Years [...] Name Priority Date/Time Associated Diagnosis Comme nts COVID-19 TEST [facility] Today 02/20/2021 9:48 EDT LAB PCR COVID-19 TESTING Routine 02/20/2021 9:48 EDT Resu lts for this procedure are i n the results section. documented in this encounter Results COVID-19 TEST [facility] PCR (02/20/2021 9:48 EDT) Specimen Swab - Entire nasopharynx (body structur e) Performing Organization Address [facility] Code Phon e Number [facility] [address] [place] [address] SERVICES COVID-19 TESTING (02/20/2021 9:48 EDT) COVID-19 rt-PCR Negative Negative [facility] Result Comment: [facility] This test has not been FDA c leared or approved. This test has been authorized by FDA under an EUA for use by authorized laboratories. This test has been authorized only for detection of nucleic acid fro SERVICES m 2019-nCoV, not for any oth er viruses or pathogens. This test is only authorized for the duration of the declaration that circumstances exist justifying the authorization of emergency use of in vitro d iagnostic tests for detectio n and/or diagnosis of 2019-nCoV under section 564(b)(1) of Act, 21 U.S.C ?? 360bbb-3(b) (1), unless the authorization is terminated or revoked sooner. Negative results do not prec lude 2019-nCoV infection and should not be used as the sole basis for treatment or other patient management decisions. Negative results must be combined with clinical observa tions, patient history, and epidemiological informatio n. Testing was performed using the silvia SARS-CoV-2 assay ([employer] on the Silvia 6800 System Performing Lab Silvia 6800 [facility] SERVICES Specimen Swab Performing Organization Address City/[facility]/ZIP Code Phon e Number [facility] [address] [place] [address] SERVICES documented in this encounter Visit Diagnoses Not on filedocumented in this encounter Care Teams Equity Director Relationship Specialty Start Date End Date Campos Lopes MD PCP - General 05/21/09 [address] [place], [place] [id number] documented as of this encounter
--- OUTSIDE RECORDS SUMMARY | 2022-06-18 00:25 | XMS_ITS | Encounter Summary ---
:[address] [facility] Address [address] [place] [address] Care Team Providers Name Role Phone Campos Lopes MD Primary Care Provider Encounter Details Date Type Department Care Team Description 12/09/2020 Orders Only [facility] Alan Milton for Gastroenterology - [facility] Arabella Shea preprocedure [place] [address] [place] [address] screening [address] [place] [address] testing for COVID-19 [place], [place] [phone] [place] [address] (Primary Dx) [phone] Pavilion, [address] [place] [address] Social History Tobacco Use Types [...] documented as of this encounter Progress Notes Arlene Duong RN - 12/09/2020 1216 EST Order placed for COVID testing prior to appointment on 02/03. ARLENE DUONG RN 12/12/2020 16:56 documented in this encounter Plan of Treatment Not on filedocumented as of this encounter Visit Diagnoses Diagnosis Encounter for preprocedure screening lab oratory testing for COVID-19 - Primary documented in this encounter Care Teams Safe And Vault Service Mechanic Relationship Specialty Start Date End Date Campos Lopes MD PCP - General 05/21/09 [address] [place] [address] documented as of this encounter
--- OUTSIDE RECORDS SUMMARY | 2022-06-18 00:25 | XMS_ITS | Encounter Summary ---
:1940 Author Organization [facility] Address [address] [place] [address] Care Team Providers Name Role Phone Campos Lopes MD Primary Care Provider Reason for Referral Consult (Routine) - Denied Specialty Diagnoses / Procedures Referred By Contact Refer red To Contact General Surgery Diagnoses RUQ pain Alan Milton MD [address] Streetjesusita Chaves MD [place] [phone] [place] [address] Phone: Fax: Referral ID Status Reason Start Date Expiration Date Visits V isits Requested Authorized [id number] Denied Specialty 02/26/2021 1 0 Services Required Question Answer Reason for Request: RUQ pain. Evaluate for gallb ladder disease. Comments Patient lives in the [place] area. Testi ng may have been started in [place]. Reason for Visit Reason Onset Date Comments Other 02/26/2021 Encounter Details Date Type Department Care Team Description 02/26/2021 Telephone [facility] Alan Milton MD Other Gastroenterology - [address], [address] [phone] [address] (Wo rk) Social History Tobacco Use [...] this encounter Miscellaneous Notes Telephone Encounter - Juliane Hanks RN - 02/26/2021 2073 EDT Referral placed. Patient is aware. She will await a call to schedule this appointment. documented in this encounter Plan of Treatment Scheduled Referrals Name Type Priority Associated Diagnoses Order S chedule AMB CONS/FOLLOW UP Outpatient Referral Routine RUQ pain Or dered: GENERAL 02/26/2021 SURGERY/COLORECTAL SURGERY documented as of this encounter Visit Diagnoses Diagnosis RUQ pain - Primary Abdominal pain, right upper quadrant documented in this encounter Care Teams Child Life Assistant Relationship Specialty Start Date End Date Campos Lopes MD PCP - General 05/21/09 [address] [place] [address] documented as of this encounter
--- OUTSIDE RECORDS SUMMARY | 2022-06-18 00:26 | XMS_ITS | Encounter Summary ---
:1940 Author Organization [facility] Address [address] [place] [address] Care Team Providers Name Role Phone Campos Lopes MD Primary Care Provider Encounter Details Date Type Department Care Team Description 04/01/2020 Orders Only [facility] Alan Milton for Gastroenterology - [facility] Arabella Shea preprocedure [place] [address] [place] [address] screening laboratory [address] [place] [address] testing for COVID-19 [place], [place] [phone] [place] [address] (Primary Dx) [phone] Pavilion, [address] [place] [address] Social History Tobacco Use Types [...] Primary documented in this encounter Care Teams Toy Consultant Relationship Specialty Start Date End Date Campos Lopes MD PCP - General 05/21/09 [address] [place] [address] documented as of this encounter
--- OUTSIDE RECORDS SUMMARY | 2022-06-18 00:26 | XMS_ITS | Encounter Summary ---
:1940 Author Organization [facility] Address [address] [place] [address] Care Team Providers Name Role Phone Campos Lopes MD Primary Care Provider Reason for Visit Reason Onset Date Comments Pre-procedure 07/14/2015 surgery confirmation Encounter Details Date Type Department Care Team Description 07/14/2015 Telephone [facility] Angel Mcleod, Pre-procedure (surgery Urology - [facility] Erasmo yoselin GIPSON confirmation) 111 [facility] [address] [phone] [facility] Level 5 [place] [address] (Wo rk) Social History Tobacco [...] on file documented as of this encounter Miscellaneous Notes Telephone Encounter - Ginny Soriano Gretchen - 07/14/2015 5052 EDT Procedure confirmed with patient. Pt was instructed to check in 3rd floor registration at 7:40 am on 07/15/15 for a procedure at 9:40 am w/Dr Mcleod. Pt is aware that there is nothing to eat or drink after midnight and will need a special events driver. documented in this encounter Plan of Treatment Not on filedocumented as of this encounter Visit Diagnoses Not on filedocumented in this encounter Care Teams Connie Scratcher Relationship Specialty Start Date End Date Campos Lopes MD PCP - General 05/21/09 [address] [place] [address] documented as of this encounter
--- OUTSIDE RECORDS SUMMARY | 2022-06-18 00:26 | XMS_ITS | Encounter Summary ---
:1940 Author Organization [facility] Address [address] [place] [address] Care Team Providers Name Role Phone Campos Lopes MD Primary Care Provider Encounter Details Date Type Department Care Team Description 11/13/2020 Lab Requisition [facility] Outr Resulting Lab, Pathology & Laboratory Provider [facility] [address] [place] [id number] Social History Tobacco Use Types Packs/Day Years [...] Date/Time Associated Diagnosis Comme nts COVID-19 TEST [facility] Today 11/13/2020 14:37 LAB PCR EST COVID-19 TESTING Routine 11/13/2020 14:37 Results for this EST procedure are i n the results section. documented in this encounter Results COVID-19 TEST [facility] LAB PCR (11/13/2020 14:37 EST) Specimen Swab - Entire nasopharynx (body structur e) Performing Organization Address [facility] Phon e Number [facility] [address] [place] [address] SERVICES COVID-19 TESTING (11/13/2020 14:37 EST) COVID-19 rt-PCR Negative Negative [facility] Result Comment: CENTER LABORATORY This test [...] performed using the silvia SARS-CoV-2 assay ([employer] on the Silvia 6800 System Performing Lab Silvia [address] [facility] Lab [facility] SERVICES Specimen Swab Performing Organization Address City/[facility] Code Phon e Number [facility] [address] [place] [address] SERVICES documented in this encounter Visit Diagnoses Not on filedocumented in this encounter Care Teams Human Service Worker Relationship Specialty Start Date End Date Campos Lopes MD PCP - General 05/21/09 [address] [place], [place] [id number] documented as of this encounter
--- OUTSIDE RECORDS SUMMARY | 2022-06-18 00:26 | XMS_ITS | Encounter Summary ---
:1940 Author Organization [facility] Address [address] [place] [address] Care Team Providers Name Role Phone Campos Lopes MD Primary Care Provider Encounter Details Date Type Department Care Team Description 09/20/2019 Orders Only [facility] Baldemar Benavides MD Radiology - Main Cam pus 111 [facility] [address] [place], [place] [id number] [place] [phone] Social History Tobacco Use Types Packs/Day Years [...] on filedocumented in this encounter Care Teams Ship Mate Relationship Specialty Start Date End Date Campos Lopes MD PCP - General 05/21/09 [address] [place] [address] documented as of this encounter
--- OUTSIDE RECORDS SUMMARY | 2022-06-18 00:26 | XMS_ITS | Encounter Summary ---
:1940 Author Organization [facility] Address [address] [place] [address] Care Team Providers Name Role Phone Campos Lopes MD Primary Care Provider Encounter Details Date Type Department Care Team Description 02/12/2020 Lab Requisition [facility] Outr Resulting Lab, Pathology & Laboratory Provider [facility] [address] [place] [id number] Social History Tobacco Use Types Packs/Day Years [...] Associated Diagnosis Comme nts T3, TOTAL Routine 02/11/2020 10:45 Results for this EDT procedure are i n the results section. THYROID ANTIBODIES Routine 02/11/2020 10:45 Resul ts for this EDT procedure are i n the results section. documented in this encounter Results (ABNORMAL) T3, TOTAL (02/11/2020 10:45 EDT) Pathologist Sig nature T3, Total 223 (H) 97 - 169 ng/dL [facility] SERVICES Specimen Blood - Venous blood (substance) Performing Organization Address City/[facility] Phon e Number [facility] [address] [place] [address] SERVICES THYROID ANTIBODIES (02/11/2020 10:45 EDT) Pathologist Sig nature Anti-Thyroglobulin <15 <=60 U/mL [facility] SERVICES Thyroperoxidase Ab <28 <=60 U/mL [facility] SERVICES Specimen Blood - Venous blood (substance) Performing Organization Address [facility] Phon e Number [facility] [address] [place] [address] SERVICES documented in this encounter Visit Diagnoses Not on filedocumented in this encounter Care Teams Tankage Grinder Relationship Specialty Start Date End Date Campos Lopes MD PCP - General 05/21/09 [address] [place], [place] [id number] documented as of this encounter
--- OUTSIDE RECORDS SUMMARY | 2022-06-18 00:26 | XMS_ITS | Encounter Summary ---
:1940 Author Organization [facility] Address [address] [place] [address] Care Team Providers Name Role Phone Campos oLpes MD Primary Care Provider Encounter Details Date Type Department Care Team Description 09/18/2019 Phlebotomy Only [facility] Phlebotomy, Nontox ic multinodular Endocrinology - [facility] [place] (Primary Dx) [address] [place] [address] Social History Tobacco Use Types Packs/Day Years [...] documented as of this encounter Progress Notes Maureen George MA - 09/18/2019 1350 EST A venous blood collection was preformed today via venipuncture on this patient. I was supervised by Jimmy Navarrete who was present and immediately available in the office suite. AMUREEN GEORGE MA 09/18/2019 16:14 documented in this encounter Miscellaneous Notes Result QuickNote - Obdulio Gray MD - 09/18/2019 1350 EST In my note it said her tsh, total t3, etc was added-on She is hyperthyroid She needs radioactive iodine uptake and scan. Id she would like to proceed, we can pretreat her as we discussed due to her history of allergies though the concern/risk is low. Very importantly as I discussed during her visit. Treating hyperthyroidism is in her best interest either with PTU (medication) or radioactive iodine (will result in permanent hypothyroidism) or surgery (will result in permanent hypothyroidism). If she prefer PTU (she was leaning towards this option) I can prescribe to be started after she has the scan done. It would be PTU 100 mg BID to start with f/u TSH, free T4 and Total T3 in 6 weeks documented in this encounter Plan of Treatment Not on filedocumented as of this encounter Procedures Procedure Name Priority Date/Time Associated Diagnosis Comme nts THYROTROPIN RECEPTOR Routine 09/18/2019 16:14 Nontoxic Res ults for this ANTIBODY EST multinodular goiter procedur e are in the results section. THYROPEROXIDASE Routine 09/18/2019 16:14 Nontoxic Results for this ANTIBODY EST multinodular goiter procedur e are in the results section. VITAMIN D (25,OH) Routine 09/18/2019 16:14 Nontoxic Result s for this EST multinodular goiter procedur e are in the results section. PTH INTACT Routine 09/18/2019 16:14 Nontoxic Results for this EST multinodular goiter procedur e are in the results section. PHOSPHORUS Routine 09/18/2019 16:14 Nontoxic Results for this EST multinodular goiter procedur e are in the results section. COMPREHENSIVE METABOLIC Routine 09/18/2019 16:14 Nontoxic Results for this PANEL (CMP) EST multinodular goiter procedur e are in the results section. documented in this encounter Results COMPREHENSIVE METABOLIC PANEL (CMP) (09/18/2019 16:14 EST) Sodium 138 136 - 145 [facility] mEq/L [facility] Potassium 4.3 3.5 - 5.0 [facility] mEq/L [facility] Chloride 103 96 - 110 [facility] mEq/L [facility] CO2 Total 27 22 - 32 mEq/L [facility] SERVICES Glucose 98 70 - 100 [facility] mg/dL [facility] BUN 21 10 - 26 mg/dL [facility] SERVICES Creatinine 0.75 0.52 - 1.04 [facility] mg/dL [facility] eGFR 77Comment: eGFR >60 [facility] calculated using mL/min/1.73m2 [facility] CKD-EPI equation SERVICES for non- Americans. Multiply eGFR by 1.16 for patients. Total Protein 7.3 6.3 - 8.2 [facility] g/dL [facility] Albumin 4.6 3.4 - 4.9 [facility] g/dL [facility] Alkaline 75 38 - 126 U/L [facility] Phosphatase [facility] AST 25 15 - 46 U/L [facility] ALT 17 <35 U/L [facility] SERVICES Bilirubin, Total 0.7 <1.4 mg/dL [facility] SERVICES Calcium 9.8 8.5 - 10.5 [facility] mg/dL [facility] Calculated Calcium 9.3 8.5 - 10.5 [facility] mg/dL [facility] Specimen Blood - Venous blood (substance) Performing Organization Address City/State/ZIP Code Phon e Number [facility] [address] [place] [address] SERVICES VITAMIN D (25,OH) (09/18/2019 16:14 EST) 25OH Vitamin D 32.1 30.0 - 100.0 [facility] Tot Comment: ng/mL [facility] Vitamin D 25,OH Interpretive Ranges: Deficiency: ??<10.0 ng/mL Insufficiency: ??10.0 - 30.0 ng/mL Sufficiency: ??30.0 - 100.0 ng/mL Toxicity: ??>100.0 ng/mL Specimen Blood - Venous blood (substance) Performing Organization Address [facility] Phon e Number [facility] [address] [place] [address] SERVICES PHOSPHORUS (09/18/2019 16:14 EST) Pathologist Sig nature Phosphorus 3.9 2.5 - 4.5 mg/dL [facility] TORY SERVICES Specimen Blood - Venous blood (substance) Performing Organization Address [facility] Phon e Number [facility] [address] [place] [address] SERVICES PTH INTACT (09/18/2019 16:14 EST) Pathologist Sig nature Intact PTH 39 19 - 88 pg/mL [facility] RY SERVICES Specimen Blood - Venous blood (substance) Performing Organization Address [facility] Phon e Number [facility] [address] [place] [address] SERVICES THYROTROPIN RECEPTOR ANTIBODY (09/18/2019 16:14 EST) Thyrotropin <1.00 0.00 - 1.75 [facility] Receptor Ab, S Comment: IU/L LABORATORIES ADDITIONAL INFORMATION ------ At a decision limit of 1.75 IU/L, this assay has 97% sensitivity and 99% specificity for detection of Graves' disease. In healthy individuals and in patients with thyroid disease without diagnosis of Graves' disease, the upper limit of anti-TSHR values are 1.22 IU/L and 1.58 IU/L, respectively (97.5th percentiles). Test Performed by: [facility] [address] [place] [address] Patent Paralegal: Wero Mariano M.D. Ph.D.; CLIA# [id number] Specimen Blood - Venous blood (substance) Performing Organization Address [facility] Phon e Number [facility] [address] [place] [address] THYROPEROXIDASE ANTIBODY (09/18/2019 16:14 EST) Pathologist Sig nature Thyroperoxidase Ab <28 <=60 U/mL [facility] SERVICES Specimen Blood - Venous blood (substance) Performing Organization Address City/State/ZIP Code Phon e Number [facility] [address] [place] [address] SERVICES documented in this encounter Visit Diagnoses Diagnosis Nontoxic multinodular goiter - Primary documented in this encounter Care Teams Production Staff Worker Relationship Specialty Start Date End Date Campos Lopes MD PCP - General 05/21/09 [address] [place], [place] [phone] documented as of this encounter
--- OUTSIDE RECORDS SUMMARY | 2022-06-18 00:26 | XMS_ITS | Encounter Summary ---
:1940 Author Organization [facility] Address [address] [place] [address] Care Team Providers Name Role Phone Campos Lopes MD Primary Care Provider Encounter Details Date Type Department Care Team Description 01/23/2016 Results Only Imaging [facility] Luis Tonyh Orthopedic Surgery - [facility] [address] 05 [facility] [phone] Social History Tobacco Use Types Packs/Day Years [...] on file documented as of this encounter Plan of Treatment Pending Results Name Type Priority Associated Diagnoses Date/Ti me OUTSIDE IMAGES - PLAIN Imaging 01/22 18:48 EDT FILM MSK documented as of this encounter Visit Diagnoses Not on filedocumented in this encounter Care Teams Medical Recruiter Relationship Specialty Start Date End Date Campos Lopes MD PCP - General 05/21/09 [address] [place] [address] documented as of this encounter
--- OUTSIDE RECORDS SUMMARY | 2022-06-18 00:26 | XMS_ITS | Encounter Summary ---
:1940 Author Organization [facility] Address [address] [place] [address] Care Team Providers Name Role Phone aCmpos Lopes MD Primary Care Provider Encounter Details Date Type Department Care Team Description 02/25/2020 Lab Requisition [facility] Sammi Harp, Encounter for other Pathology & MD general examination Laboratory Medicine [address] [place], [place] 111 [facility] [address] [place] [address] Social History Tobacco Use Types Packs/Day Years [...] Name Priority Date/Time Associated Diagnosis Comme nts SURGICAL PATHOLOGY Today 02/25/2020 8:45 EDT Encounter for o ther Results for this general examination procedur e are in the results section. documented in this encounter Results SURGICAL PATHOLOGY (02/25/2020 8:45 EDT) Final Diagnosis A. DUODENUM, BIOPSY: [facility] MEDICAL [facility] tronically - Small intestinal mucosa with no specific pathologic features. CENTER signed by Kashif Pitt, LABORATORY Kenzie Engel MD on B. STOMACH, BODY, BIOPSY: SERVICES at 1400 - Gastric fundic mucosa with mild focal reactive (chem ical) gastropathy. - Negative for Helicobacter pylori microorganisms on H &E stained sections. Attestation There was significant [facility] MEDICAL Electr onically resident/fellow CENTER signed by Ab jesusita Pitt, involvement in the LABORATORY Arabella Andrade on diagnostic evaluation SERVICES 020 at 1400 of this case. By the signature below, the attending physician certifies that they have personally conducted a gross and/or microscopic examination of the described specimens and rendered or confirmed the above diagnosis. Clinical History RUQ pain [facility]ATORY SERVICES Gross Description A. Received in formalin labe lled with proper patient identification (initials E, B) and duodenum are 2 fragments of stuart soft tissue (0.2 x 0.2 x 0.2 cm and 0.4 x 0.2 x 0.2 cm). The specimen is entirely submitted in A1. [facility] B. Received in formalin labe lled with proper patient identification (initials E, B) and gastric body is a single fragment of stuart soft tissue (0.5 x 0.2 x 0.2 cm). The specimen is entirely submitted in B1. LABORATOR Y SERVICES Salena Vargas 02/25/2020 16:08 Resident/Fellow: Zach Enamorado MD [facility] SERVICES Scanned Images [facility] SERVICES Specimen Tissue - Specimen from stomach obtained by total gastrectomy (specimen) Tissue specimen (specimen) - Specimen fr om stomach obtained by total gastrectomy (specimen) Performing Organization Address City/State/ZIP Code Phon e Number [facility] [address] [place] [address] SERVICES documented in this encounter Visit Diagnoses Diagnosis Encounter for other general examination documented in this encounter Care Teams Tape Weaver Relationship Specialty Start Date End Date Campos Lopes MD PCP - General 05/21/09 [address] [place] [address] documented as of this encounter
--- OUTSIDE RECORDS SUMMARY | 2022-06-18 00:26 | XMS_ITS | Encounter Summary ---
:1940 Author Organization [facility] Address [address] [place] [address] Care Team Providers Name Role Phone Campos Lopes MD Primary Care Provider Reason for Referral Radiology Services (Routine) - Closed Specialty Diagnoses / Procedures Referred By Contact Refer red To Contact Diagnoses Closed nondisplaced fracture of proximal phalanx of left little finger, initial encounter Godwin Carney Procedures HAND 3 OR MORE VIEWS [address] [place] [address] Referral ID Status Reason Start Date Expiration Date Visits Requ ested Visits Authorized [id number] Closed 06/23/2016 1 1 Encounter Details Date Type Department Care Team Description 06/23/2016 Orders Only [facility] Gareth Dill Closed nondisplaced Hand & Upper Extremity MD Yoandy fracture of proximal Program - [place] [address] phalanx of left little [address] Herrera Mackey, finger, initial So [facility] [phone] encounter (Primary Dx) [id number] Social History Tobacco Use Types Packs/Day [...] Name Priority Date/Time Associated Diagnosis Comme nts HAND 3 OR MORE Routine 06/23/2016 13:16 Closed nondisplaced Re sults for this VIEWS EDT fracture of proximal procedu re are in phalanx of left the results little finger, section. initial encounter documented in this encounter Results HAND 3 OR MORE VIEWS (06/23/2016 13:16 EDT) Anatomical Region Laterality Modality Other Specimen Narrative [facility] RAD[facility] HERRERA VILLEDA - 06/23/2016 17:23 EDT HAND 3 OR MORE VIEWS ??06/23/2016 1:16 PM Clinical History/Comments: S62.647A-Nondisplaced fracture of proxim al phalanx of left little finger, initial encounter for closed fra [id number]; Proximal phalanx fracture of left 5th finger COMPARISON: Outside left hand radiograph s January 04, 2016 FINDINGS: PA, oblique, and lateral views of the le ft hand demonstrate posterior ulnar angulation of the proxim al phalanx of the 5th digit which is due to old trauma.. No old frac ture is visualized at the head of the middle phalanx of the 5th di git. There is subtle irregularity at the 5th PIP joint which may reflect remote intra-articular extension of the old pro ximal phalanx fracture. The remaining joint spaces are unremarkable. There is significant sclerosis of the distal scaphoid likely reflecting degenerative change. 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 There appears to be slight progression of joint space narrowing in the interim. Impression: 1. No sequela of fracture ??identified a t the head of the middle phalanx of the 5th digit 2. Deformity of the proximal phalanx of the 5th digit is likely reflective of remote trauma I have personally reviewed the exam imag es and authored minor changes to the report. ?? I have personally reviewed the images an d the above interpretation and agree with the findings. Procedure Note Jaye Adkins MD - 06/23/2016 HAND 3 OR MORE VIEWS 06/23/2016 1:16 PM Clinical History/Comments: S62.647A-Nondisplaced fracture of proxim al phalanx of left little finger, initial encounter for closed fra [id number]; Proximal phalanx fracture of left 5th finger COMPARISON: Outside left hand radiograph s January 04, 2016 FINDINGS: PA, oblique, and lateral views of the le ft hand demonstrate posterior ulnar angulation of the proxim al phalanx of the 5th digit which is due to old trauma.. No old frac ture is visualized at the head of the middle phalanx of the 5th di git. There is subtle irregularity at the 5th PIP joint which may reflect remote intra-articular extension of the old pro ximal phalanx fracture. The remaining joint spaces are unremarkable. There is significant sclerosis of the distal scaphoid likely reflecting degenerative change. 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 There appears to be slight progression of joint space narrowing in the interim. Impression: 1. No sequela of fracture identified at the head of the middle phalanx of the 5th digit 2. Deformity of the proximal phalanx of the 5th digit is likely reflective of remote trauma I have personally reviewed the exam imag es and authored minor changes to the report. I have personally reviewed the images an d the above interpretation and agree with the findings. Performing Organization Address City/State/ZIP Code Phon e Number [facility] [place] documented in this encounter Visit Diagnoses Diagnosis Closed nondisplaced fracture of proximal phalanx of left little finger, initial encounter - Primary documented in this encounter Care Teams Brick And Blocker Aid Labor Relationship Specialty Start Date End Date Campos Lopes MD PCP - General 05/21/09 [address] [place] [address] documented as of this encounter
--- OUTSIDE RECORDS SUMMARY | 2022-06-18 00:26 | XMS_ITS | Encounter Summary ---
:1940 Author Organization [facility] Address [address] [place] [address] Care Team Providers Name Role Phone Campos Lopes MD Primary Care Provider Reason for Visit Reason Onset Date Comments Other 03/14/2020 Encounter Details Date Type Department Care Team Description 03/14/2020 Telephone [facility] Gastroenterology [facility] [address] [place] [address] Social History Tobacco Use Types Packs/Day Years [...] Notes Telephone Encounter - Roslyn Nunez - 03/14/2020 1105 EDT LM 2 x to date to schedule patient for EUS. Mobile number in chart is the wrong number documented in this encounter Plan of Treatment Not on filedocumented as of this encounter Visit Diagnoses Not on filedocumented in this encounter Care Teams C S S Representative Relationship Specialty Start Date End Date Campos Lopes MD PCP - General 05/21/09 [address] [place] [address] documented as of this encounter
--- OUTSIDE RECORDS SUMMARY | 2022-06-18 00:26 | XMS_ITS | Encounter Summary ---
:1940 Author Organization [facility] Address [address] [place] [address] Care Team Providers Name Role Phone Campos Lopes MD Primary Care Provider Reason for Visit (Routine) - Receiving Office to Obtain Authorization Specialty Diagnoses / Procedures Referred By Contact Refer red To Contact Procedures Unknown, Provider, CT OUTSIDE IMAGES CHEST Phone: Referral ID Status Reason Start Expiration Visits Visits Date Date Requested Authorized [id number] Receiving Office 12/06/2020 1 1 to Obtain Authorization Encounter Details Date Type Department Care Team Description 11/17/2020 Hospital Encounter [facility] Secondary Reads [place] Social History Tobacco [...] Name Priority Date/Time Associated Diagnosis Comme nts CT OUTSIDE IMAGES Routine 12/06/2020 8:12 EST Res ults for this CHEST procedure are i n the results section. documented in this encounter Results CT OUTSIDE IMAGES CHEST (12/06/2020 8:12 EST) Specimen Narrative 12/06/2020 8:12 EST This is a non-reportable exam. documented in this encounter Visit Diagnoses Not on filedocumented in this encounter Care Teams Color Technician Relationship Specialty Start Date End Date Campos Lopes MD PCP - General 05/21/09 [address] [place] [address] documented as of this encounter
--- OUTSIDE RECORDS SUMMARY | 2022-06-18 00:26 | XMS_ITS | Encounter Summary ---
:1940 Author Organization [facility] Address [address] [place] [address] Care Team Providers Name Role Phone Campos Lopes MD Primary Care Provider Encounter Details Date Type Department Care Team Description 01/07/2016 Results Only Imaging [facility]- MAGALY Hussein MD [phone] [place] [phone] (Wo rk) Social History Tobacco Use Types [...] Associated Diagnoses Date/Ti me OUTSIDE IMAGES - CT CHEST Imaging 10:16 EDT OUTSIDE IMAGES - CT CHEST Imaging 12:27 EDT OUTSIDE IMAGES - CT CHEST Imaging 16:50 EDT documented as of this encounter Procedures Procedure Name Priority Date/Time Associated Diagnosis Comme nts SECONDARY READ 01/07/2016 12:25 Results f or this CHEST CT EDT procedure are i n the results section. documented in this encounter Results SECONDARY READ CHEST CT (01/07/2016 12:25 EDT) Anatomical Region Laterality Modality Other Specimen Narrative [facility] - 01/07/2016 16:00 EDT SECONDARY READ CHEST CT ??01/07/2016 12:25 PM Clinical History/Comments: See scanned sheet. Technique: CT of the chest performed at [facility] on 01/06/2016. IV contrast was not administered. Images reformatted at 1.25 mm were obtai jn from the lower neck through the upper abdomen. Comparison: 06/30/2015 and 10/14/2014. Findings: Lower neck: Mild thyroid enlargement and heterogeneity. Chest wall soft tissues: No abnormalitie s. Mediastinum and nile: No enlarged medias tinal or hilar lymph nodes. ? Heart and mediastinal vasculature: ??Sma ll focal calcified plaque of the LAD coronary artery. Large airways: ??Mildly thickened. Lungs: ??A solitary nodule of solid atte nuation with a small central lucency is present in the medial portion of the posterior basal segment of the left lower lobe (image 25 5), maximum average dimension approximately 5 mm. ??Inferior to this there is a cluster of small nodules ranging in size from 1- 2 mm with the largest nodule (solid, well-circumscribed) measuring ap proximately 3-4 mm. ??All of these abnormalities appear similar katlyn red to the prior examinations, although of note the 2014 examination is performed at a maximum collimation of 2. 5 mm, and the examination from 10/14/2014 is performed with a maximu m collimation of 5 mm. ??No new nodules are identified. Pleura: No abnormalities. Upper abdomen (limited to upper abdomen, not optimized for abdominal imaging): There is a small hiatal hernia . Bones: ??No significant abnormalities. Impression: Several nodules are present in the left lower lobe. ??These appear grossly similar compared to the prior ex amination, however the technique employed for those examination s is not appropriate for followup of small pulmonary nodules (typ ically this should be performed at 1 mm or less collimation wi th small [id number]). ?? Typically, in a smoker or former smoker, per Fleischner Society recommendations, the following followup imaging sequence should be performed for a nodule ranging between 4 and 6 mm: Initial followup CT at six to 12 months and at 18 [address] [facility] if no change. ??Since this examination is at reasonable collim ation, consider followup in approximately one year to ascertain stab ility. This report differs significantly from t he outside report. Procedure Note Satish Crespo MD - 01/07/[address] 01/07/2016 12:25 PM Clinical History/Comments: See scanned sheet. Technique: CT of the chest performed at [facility] on 01/06/2016. IV contrast was not administered. Images reformatted at 1.25 mm were obtai jn from the lower neck through the upper abdomen. Comparison: 06/30/2015 and 10/14/2014. Findings: Lower neck: Mild thyroid enlargement and heterogeneity. Chest wall soft tissues: No abnormalitie s. Mediastinum and nile: No enlarged medias tinal or hilar lymph nodes. Heart and mediastinal vasculature: Small focal calcified plaque of the LAD coronary artery. Large airways: Mildly thickened. Lungs: A solitary nodule of solid attenu ation with a small central lucency is present in the medial portion of the posterior basal segment of the left lower lobe (image 25 5), maximum average dimension approximately 5 mm. Inferior t o this there is a cluster of small nodules ranging in size from 1- 2 mm with the largest nodule (solid, well-circumscribed) measuring ap proximately 3-4 mm. All of these abnormalities appear similar katlyn red to the prior examinations, although of note the 2014 examination is performed at a maximum collimation of 2. 5 mm, and the examination from 10/14/2014 is performed with a maximu m collimation of 5 mm. No new nodules are identified. Pleura: No abnormalities. Upper abdomen (limited to upper abdomen, not optimized for abdominal imaging): There is a small hiatal hernia . Bones: No significant abnormalities. Impression: Several nodules are present in the left lower lobe. These appear grossly similar compared to the prior ex amination, however the technique employed for those examination s is not appropriate for followup of small pulmonary nodules (typ ically this should be performed at 1 mm or less collimation wi th small [id number]). Typically, in a smoker or former smoker, per Fleischner Society recommendations, the following followup imaging sequence should be performed for a nodule ranging between 4 and 6 mm: Initial followup CT at six to 12 months and at 18 to [address] if no change. Since this examination is at reasonable collim ation, consider followup in approximately one year to ascertain stab ility. This report differs significantly from t mike outside report. Performing Organization Address City/State/ZIP Code Phon e Number [facility] documented in this encounter Visit Diagnoses Not on filedocumented in this encounter Care Teams Factory Supervisor Relationship Specialty Start Date End Date Campos Lopes MD PCP - General 05/21/09 [address] [place] [address] documented as of this encounter
--- OUTSIDE RECORDS SUMMARY | 2022-06-18 00:26 | XMS_ITS | Encounter Summary ---
:1940 Author Organization [facility] Address [address] [place] [address] Care Team Providers Name Role Phone Campos Lopes MD Primary Care Provider Reason for Visit Reason Comments Cataract Encounter Details Date Type Department Care Team Description 06/04/2019 Office Visit [facility] Ariana Means MD Ophthalmology - [place] in [address] [place] [address] [address] [place] [address] [place] [address] [phone] Social History Tobacco Use Types Packs/Day Years [...] of this encounter Progress Notes Brenden Means - 06/04/2019 1315 EDT Chief Complaint Patient presents with ??? Cataract HPI The patient is a 79 y.o. female here for follow up of cataracts. She reports that she is bothered byher distance and reading vision. She is having glare and light sensitivity. Night vision when driving is difficult for her due to glare.she has no eye pain, double vision, or new flashes/floaters. Right Eye: Blurred Vision, Glare or Light Sensitivity, Problem with Night Vision Left Eye: Blurred Vision, Glare or Light Sensitivity, Problem with Night Vision Visual Aid: Glasses Current Rx Age Location: Pain: 0 - No pain Quality: Severity: Duration: Timing: Lasts: Context: Pt here for cataract f/u visit. SHe has blurry vision for both distance & reading, and she does have some glare issues at night (has had issues for a few years). No irritation, no pain, nofloaters or flashes. Modifying factors: Associated Signs & Symptoms: Attestation: ROS Constitutional: NL ENT/Mouth Cardiovascular: Respiratory: Gastrointestinal: Genitourinary: Musculoskeletal: Integumentary: Neurologic: Psychiatric: Endocrine: Hematologic: Immunologic: Lock Corner Machine Operator: Exposures: None Other: Attestation: Base Eye Exam Visual Acuity (Snellen - Linear) Right Left Dist sc 20/50 -2 20/40 +1 Pupils Pupils Dark Light APD Right PERRL 5 4 None Left PERRL 5 4 none Neuro/Psych Oriented x3: Yes Mood/Affect: Normal Additional Tests Glare Testing (BAT) Off High Right 20/25 20/25 Left 20/25-3 20/25 Refraction Manifest Refraction Sphere Cylinder [place] Dist VA Right +1.50 +0.75 005 20/25 Left +0.75 +1.25 010 20/25-3 DIAGNOSTIC TESTS: IMPRESSION & PLAN: 1. Cataract, both eyes -Becoming visually significant, we had a thorough discussion again about cataract surgery. Her vision today is correctable to 20/25- with glasses, we discussed this and will try glasses (separate for distance and reading). She will let us know if this works. -Monitor periodically -Return in 1 year or sooner with worsening of the vision 2. Disorder of refraction and accommodation -Give glasses Rx patient???s option to fill I have reviewed the patient's past medical, family, social and surgical history. I have also reviewed the patient's medications, allergies, and problem list. I performed my own HPI and have reviewed the tech's ROS as well. I completed this exam personally. Brenden Means MD I am scribing for Brenden Means MD, while he is personally performing the service. 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 Unspecified disorder of refraction and a ccommodation documented in this encounter Eye Exam Visual Acuity (Snellen - Linear) Right eye Left eye Dist sc 20/50 -2 20/40 +1 Pupils Pupils Dark Light APD Right eye PERRL 5 4 None Left eye PERRL 5 4 none Neuro/Psych Oriented x3: Yes Mood/Affect: Normal Glare Testing (BAT) Off High Right eye 20/25 20/25 Left eye 20/25-3 20/25 External Exam Right eye Left eye External Normal Normal Slit Lamp Exam Right eye Left eye Lids/Lashes Normal Normal Conjunctiva/Sclera White and quiet White and quiet Cornea Mild ABMD changes Mild ABMD changes Anterior Chamber Deep and quiet Deep and quiet Iris Round and reactive Round and reactive Lens 2+ Nuclear sclerosis, Trace 2+ Nuclear s clerosis, Trace Cortical cataract Cortical cataract, T race Posterior subcapsular cataract Manifest Refraction Sphere Cylinder [place] Dist VA Right eye +1.50 +0.75 005 20/25 Left eye +0.75 +1.25 010 20/25-3 Final Rx #1 Sphere Cylinder [place] Right eye +1.50 +0.75 005 Left eye +0.75 +1.25 010 Type: DIstance glasses Final Rx #2 Sphere Cylinder [place] Right eye +4.00 +0.75 005 Left eye +3.25 +1.25 010 Type: Reading glasses Care Teams Trim Crew Supervisor Relationship Specialty Start Date End Date Campos Lopes MD PCP - General 05/21/09 [address] [place] [address] documented as of this encounter
--- OUTSIDE RECORDS SUMMARY | 2022-06-18 00:26 | XMS_ITS | Encounter Summary ---
:1940 Author Organization [facility] Address [address] [place] [address] Care Team Providers Name Role Phone Campos Lopes MD Primary Care Provider Encounter Details Date Type Department Care Team Description 07/13/2015 Pre-Procedure Orders [facility] Shani, Angel Glover, Encounter [address] [place] [address] [place] [address] [facility] [address] [place] [phone] (Wo rk) Social History Tobacco Use Types [...] on filedocumented in this encounter Care Teams Managed Care Provider Relationship Specialty Start Date End Date Campos Lopes MD PCP - General 05/21/09 [address] [place] [address] documented as of this encounter
--- OUTSIDE RECORDS SUMMARY | 2022-06-18 00:26 | XMS_ITS | Encounter Summary ---
:1940 Author Organization [facility] Address [address] [place] [address] Care Team Providers Name Role Phone Campos Lopes MD Primary Care Provider Reason for Referral Radiology Services (Routine) - Closed Specialty Diagnoses / Procedures Referred By Contact Refer red To Contact Diagnoses Bilateral bunions Albertina Perez DPM Procedures FOOT 3 OR MORE VIEWS [address] [place] [address] Referral ID Status Reason Start Date Expiration Date Visits Requ ested Visits Authorized [id number] Closed 01/05/2017 1 1 Reason for Visit Reason Comments Foot Pain bunions/hammertoes/toes cros sing eachother Encounter Details Date Type Department Care Team Description 01/05/2017 Office Visit [facility] Albertina Perez, Bilater al bunions (Primary Dx); Foot & Ankle Program - DPM Hammer toes of both feet [place] [address] [facility] [address] [place] [facility] [address] [phone] Social History Tobacco Use Types Packs/Day Years [...] - - Weight 79.4 kg (175 lb) 01/05/2017 1355 EDT Height 167.6 cm (5' 5.98) 01/05/2017 1355 EDT Body Mass Index 28.26 01/05/2017 1355 EDT documented in this encounter Functional Status Functional Status Response Date of Assessment Because of a physical, mental, or emotional condition, No 01/05/2017 does this person have difficulty doing errands alone such as visiting a doctor's office or shopping? Cognitive Status Response Date of Assessment Because of a physical, mental, or emotional condition, No 01/05/2017 does this person have serious difficulty concentrating, remembering, or making decisions? 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 Bilateral bunions M21.611 727.1 FOOT 3 OR MORE VIEWS M21.612 2. Hammer toes of both feet M20.41 735.4 M20.42 Maureen Thomas is being seen today for Foot Pain (bunions/hammertoes/toes crossing eachother) . We have been asked to see her in consultation by Dr. Painter. HPI: Maureen Thomas is a 76 y.o. female patient who presents with complaint of contracted and splayed 2nd and 3rd toe bilaterally. She notes they have been like this for a long time. She tapes them daily, so that they do not splay and rub against the adjacent toes. She states that her biggest complaint is that they rub against the other toes. This causes them to throb at night. She had a tendon release performed on one of them about a year ago in an office, and notes that she think this helped. She is wondering if this can be done today. She notes that she also has had bunions for a long time. Theydo not bother her much, except for where the bumps rub on shoes sometimes. 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 She is helping with a basketball camp this summer, and is asking if she has surgery doneif she will be recovered in time for this. It starts in March. Past medical history, medications, allergies, past surgical, social and family history were reviewedand noted in [facility]. The intake form was reviewed and signed. Patient Active Problem List Diagnosis Date Noted ??? Fracture of finger of left hand with malunion 06/25/2016 Priority: Medium ??? 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 Hypertensive disorder 06/09/2009 ??? Tremor 06/09/2009 ??? 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 Thyroid disease suppressed TSH; nml T4 and T3 No past surgical history on file. Social History Substance Use Topics ??? Smoking status: Former Smoker Packs/day: 1.00 Years: 32.00 Quit date: 08/19/1995 ??? Smokeless tobacco: Never Used ??? Alcohol use Yes Comment: very rare No family history on file. Current Outpatient Prescriptions Medication Sig Dispense Refill ??? albuterol (PROAIR HFA) 90 mcg/actuation inhaler Inhale 1-2 Puffs as directed every 6 hours as needed for Wheezing. Reported on 01/05/2017 ??? atenolol (TENORMIN) 50 mg tablet Take 25 mg by mouth daily . ??? ergocalciferol (DRISDOL; VITAMIN D2) 50,000 unit capsule Take 50,000 Units by mouth. Twice weekly ??? estradiol (ESTRACE) 0.01 % (0.1 mg/g) vaginal cream Place vaginally. Per vagina 2 x weekly 1 Tube 11 ??? fluticasone-salmeterol (ADVAIR HFA) 230-21 mcg/actuation inhaler Inhale 2 Puffs as directed 2 times daily . ??? ibuprofen (MOTRIN) 200 mg tablet Take 4 Tabs by mouth every 8 hours as needed for Pain. ??? losartan (COZAAR) 25 mg tablet Take 25 mg by mouth daily. ??? magnesium oxide (MAG-OX) 400 mg tablet Take 400 mg by mouth daily. ??? mirabegron 25 mg tablet extended release 24 hr Take 25 mg by mouth daily 30 Tab 11 ??? Multivitamins with Minerals tablet tablet Take 1 Tab by mouth daily. ??? solifenacin (VESICARE) 10 mg tablet Take 5 mg by mouth daily. ??? tiotropium (SPIRIVA WITH HANDIHALER) 18 mcg inhalation capsule Inhale 18 mcg as directed daily. Reported on 01/05/2017 ??? TOLTERODINE TARTRATE (DETROL ORAL) Take by mouth. Reported on 01/05/2017 No current facility-administered medications for this visit. Allergies Allergen Reactions ??? Cholecalciferol (Vitamin D3) unknown ??? Ciprofloxacin Other (See Comments) Ectopic heart beats ??? Dye IVP DYE ??? Elmiron [Pentosan Polysulfate Sodium] unknown ??? Epinephrine tachycardia ??? Iodine And Iodide Containing Products Hives ??? Methimazole Other (See Comments) unknown Review of Systems A ten point review of systems was performed. Pertinent positives are listed below, all others are negative. Vital signs: height is 167.6 cm (65.98) and weight is 79.4 kg (175 lb). PHYSICAL EXAM: General: AO x 3, NAD Lower extremity: Palpable pedal pulses. Skin temperature gradient WNL. CFT < 3 sec to all toes. No open lesions. Hallux valgus b/l. No dorsiflexory range of motion at the 1st MTPJ when the foot is loaded. Diminished dorsiflexory range of motion when the foot is not loaded. Prominent dorsal and medial eminences. No pain with ROM or on palpation. Rigid hammertoe contractures toes 2,3 b/l- non reducible. Splaying of the 2nd and 3rd toes. Mild hammertoe contractures of the 4th and 5th toes. Hyperkeratotic lesion right lateral 4th toe with mild pain on palpation. Pes planus. MMT 5/5. Gross protectivesensation intact. ASSESSMENT: 1. Bilateral bunions FOOT 3 OR MORE VIEWS 2. Hammer toes of both feet Other Orders Placed This Visit Procedures ??? FOOT 3 OR MORE VIEWS PLAN: Ms. Thomas presents today with complaint of bilateral 2nd and 3rd toe contracture and splaying. They have been like this for a long time, and she has been taping them to keep them from rubbing against the adjacent toes. They do cause her some pain, but it is not limiting, and she has no pre ulcerative lesions. X-rays were ordered and reviewed and we discussed treatment options. In order to correctthe toes, this would involve fusion of the joints and pin fixation. We discussed that tendon releasein the office would not provide adequate release as the toes are rigidly contracted. We also discussed that the bunions would need to be addressed, because straightening of the toes would cause them torub against the bunions. For the bunions, she would likely require a fusion due to the amount of disease in the joint. We discussed what this would all entail and the recovery time. Recommended exhausting conservative treatment first, as her main complaint is the 2nd and 3rd toes splaying and rubbing a gainst the others, and taping daily getting tiring. I dispensed toe spaces and hammer toe crest pads. We discussed proper shoe gear with a wide toe box. She is going to follow up after her summer camp,in about 6 months. She is happy with this plan. All the questions were answered and the patient was encouraged to call the clinic with any questions/ concerns. Patient voices understanding and agrees with the plan. Cc: Requesting Provider - Dr. Painter PCP - Campos Lopes Portions of this document have been prepared with speech recognition software or keyboard data entrytechniques. Minor irregularities or keyboarding misprints may be present documented in this encounter Plan of Treatment Not on filedocumented as of this encounter Procedures Procedure Name Priority Date/Time Associated Diagnosis Comme nts FOOT 3 OR MORE Routine 01/05/2017 14:49 Bilateral bunions Resu lts for this VIEWS EDT procedure are i n the results section. documented in this encounter Results FOOT 3 OR MORE VIEWS (01/05/2017 14:49 EDT) Anatomical Region Laterality Modality Other Specimen Narrative [facility] ISIDRA VILLEDA - 01/05/2017 16:38 EDT FOOT 3 OR MORE VIEWS, FOOT 3 OR MORE VIEWS ??01/05/2017 2:49 PM Clinical History/Comments: M21.611-Bunion of right foot-ICD-10 M21. 612-Bunion of left foot-ICD-10; bunions and hammertoes COMPARISON: None. FINDINGS: 3 views of the left foot and 3 views of the right foot were obtained. Left foot: No acute fractures or disloca tions. There is hallux valgus, metatarsus varus. 2nd hammertoe deformity is noted. There is moderate arthrosis of the 1st MTP joint. Milder arthrosis is seen in the mid and hindfoot. Enthesopathic spur ring is seen at the insertion of the plantar aponeurosis on the calcaneus. Mild soft tissue thickening is seen over the 1st m etatarsal head. Right foot: No acute fractures or disloc ations. Cortical regularity of the 4th metatarsal likely reflects he aled fracture. There is hallux valgus, metatarsus varus. Suspect 2nd through 4th hammer toes. There is severe arthrosis of the 1 st MTP joint. Mild to moderate arthrosis is present in the mid foot. Enthesopathic spurring is seen at the insertion of the plantar aponeurosis on the calcaneus. Soft tissue thickening is see n over the 1st metatarsal head. Procedure Note Raymundo Alexis MD - 01/05/2017 FOOT 3 OR MORE VIEWS, FOOT 3 OR MORE EWS 01/05/2017 2:49 PM Clinical History/Comments: M21.611-Bunion of right foot-ICD-10 M21. 612-Bunion of left foot-ICD-10; bunions and hammertoes COMPARISON: None. FINDINGS: 3 views of the left foot and 3 views of the right foot were obtained. Left foot: No acute fractures or disloca tions. There is hallux valgus, metatarsus varus. 2nd hammertoe deformity is noted. There is moderate arthrosis of the 1st MTP joint. Milder arthrosis is seen in the mid and hindfoot. Enthesopathic spur ring is seen at the insertion of the plantar aponeurosis on the calcaneus. Mild soft tissue thickening is seen over the 1st m etatarsal head. Right foot: No acute fractures or disloc ations. Cortical regularity of the 4th metatarsal likely reflects he aled fracture. There is hallux valgus, metatarsus varus. Suspect 2nd through 4th hammer toes. There is severe arthrosis of the 1 st MTP joint. Mild to moderate arthrosis is present in the mid foot. Enthesopathic spurring is seen at the insertion of the plantar aponeurosis on the calcaneus. Soft tissue thickening is see n over the 1st metatarsal head. Performing Organization Address City/State/ZIP Code Phon e Number [facility] [place] documented in this encounter Visit Diagnoses Diagnosis Bilateral bunions - Primary Bunion Hammer toes of both feet documented in this encounter Historical Medications This list may reflect changes made after this encounter. Medication Sig Dispensed Refills Start Date End Date Multivitamins with Take 1 Tab by mouth 0 Minerals tablet tablet daily. magnesium oxide (MAG-OX) Take 400 mg by mouth 0 400 mg tablet daily before breakfast. Currently taking solifenacin (VESICARE) 10 Take 5 mg by mouth 0 mg tablet as needed. losartan (COZAAR) 25 mg Take 25 mg by mouth 0 02/24/2021 tablet daily. Pt states not taking added in this encounter Care Teams Sales Floor Manager Relationship Specialty Start Date End Date Campos Lopes MD PCP - General 05/21/09 [address] [place] [address] documented as of this encounter
--- OUTSIDE RECORDS SUMMARY | 2022-06-18 00:26 | XMS_ITS | Encounter Summary ---
:1940 Author Organization [facility] Address [address] [place] [address] Care Team Providers Name Role Phone Campos Lopes MD Primary Care Provider Reason for Visit Reason Comments Eye Problem Cataract evaluation - ref b y Dr. Fay Consult (Routine) - Authorization Not Required Specialty Diagnoses / Procedures Referred By Contact Refer red To Contact Ophthalmology Diagnoses Cataract Swetha Fay, MARIANA [address] [place] [address] [address] [place] [address] Phone: Fax: Referral ID Status Reason Start Expiration Visits Visits Date Date Requested Authorized [id number] Authorization Not 1 1 Required Encounter Details Date Type Department Care Team Description 01/15/2019 Office Visit [facility] Ariana Means MD Ophthalmology - [place] in [address] [place] [id number] [address] [place], [place] [address] [phone] Social History Tobacco Use Types Packs/Day Years [...] encounter Progress Notes Brenden Means MD - 01/15/2019 1415 EDT Chief Complaint Patient presents with ??? Eye Problem Cataract evaluation - ref by Dr. Fay HPI The patient is a 78 y.o. female is here for a Cataract evaluation referred by Dr Fay. She has alot of glare and light sensitivity and night vision has been difficult. She has noticed a decrease in vision over the past year. she has no eye pain, double vision, or new flashes/floaters. Right Eye: Glare or Light Sensitivity, Problem with Night Vision Left Eye: Glare or Light Sensitivity, Problem with Night Vision Visual Aid: Glasses(OTC readers) Current Rx Age Location: Pain: 0 - No pain Quality: Severity: Duration: Timing: Lasts: Context: Pt here for cataract evaluation per Dr. Fay. She does have glare at night from lights. Modifying factors: No floaters or flashes, no pain. Associated Signs & Symptoms: Attestation: ROS Constitutional: ENT/Mouth NL Cardiovascular: High Blood Pressure Respiratory: (asthma - mild) Gastrointestinal: (acid reflux) Genitourinary: Musculoskeletal: NL Integumentary: NL Neurologic: NL Psychiatric: NL Endocrine: Thyroid problems Hematologic: NL Immunologic: Drug Allergy Computer Typesetter Keyliner: Exposures: Other: Attestation: Base Eye Exam Visual Acuity (Snellen - Linear) Right Left Dist sc 20/60 -3 20/30 -1 Dist ph sc 20/30 -1 20/25 Tonometry (Applanation, 14:45) Right Left Pressure 18 17 Pupils Dark Light APD Right 5 4 None Left 5 4 None Visual Abrams (Counting fingers) Right Left Full Full Extraocular Movement Right Left Full Full Neuro/Psych Oriented x3: Yes Mood/Affect: Normal Dilation Both eyes: 1.0% Mydriacyl, 2.5% Phenylephrine @ 14:45 Additional Tests Glare Testing (BAT) Off High Right 20/25-1 20/25 Left 20/25-1 20/25-1 Slit Lamp and Fundus Exam External Exam Right Left External Normal Normal Slit Lamp Exam Right Left Lids/Lashes Normal Normal Conjunctiva/Sclera White and quiet White and quiet Cornea ABMD changes ABMD changes Anterior Chamber Deep and quiet Deep and quiet Iris Round and reactive Round and reactive Lens 2+ Nuclear sclerosis, Trace Cortical cataract 2+ Nuclear sclerosis, Trace Cortical cataract, Trace Posterior subcapsular cataract Fundus Exam Right Left Vitreous Posterior vitreous detachment Normal Disc Normal Normal C/D Ratio 0.25 0.35 Macula Normal Few Drusen Vessels Normal Normal Periphery Normal Normal Refraction Manifest Refraction (Auto) Sphere Cylinder Kelley Dist VA Right +1.50 +1.75 010 20/20 Left +0.75 +1.00 155 20/20 Manifest Refraction #2 Sphere Cylinder Kelley Dist VA Right +1.50 +0.75 005 20/25-1 Left +0.75 +1.25 010 20/25-1 DIAGNOSTIC TESTS: IMPRESSION & PLAN: 1. Cataract, both eyes Visually significant -Discussed cataract surgery in detail including risks (including but not limited to infection, retinal detachment, loss of vision/eye, corneal/macular edema, need for additional surgery), benefits, andalternatives and the patient elects to proceed with the Left eye first. -The patient was given an informational pamphlet -Return for biometry and IOL calculations, BOTH eyes Surgical planning: Preliminarily scheduled for 06/15/2019 (Left eye) Flomax (Tamsulosin): No Pupil dilation: 7.0 Blood thinners: no Able to lie flat: yes Pseudoexfoliation: no Corneal guttae: no History of refractive surgery: no Risk for anisometropia: low Refractive aim: [place] Referred by: Dr. Rhonda Fay Discussed. She would prefer to schedule for the fall. We will have her return in May for IOL measurements and dilation. 2. Posterior vitreous detachment, right eye(s) Stable, monitor periodically 3. 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 Use artificial tears. I have reviewed the patient's past medical, family, social and surgical history. I have also reviewed the patient's medications, allergies, and problem list. I performed my own HPI and have reviewed the iiyuma's ROS as well. I completed this exam [...] detachment of right e ye Vitreous degeneration ABMD (anterior basement membrane dystrop hy) documented in this encounter Eye Exam Visual Acuity (Snellen - Linear) Right eye Left eye Dist sc 20/60 -3 20/30 -1 Dist ph sc 20/30 -1 20/25 Tonometry (Applanation, 14:45) Right eye Left eye Pressure 18 17 Pupils Dark Light APD Right eye 5 4 None Left eye 5 4 None Visual Abrams (Counting fingers) Right eye Left eye Full Full Extraocular Movement Right eye Left eye Full Full Neuro/Psych Oriented x3: Yes Mood/Affect: Normal Dilation Both eyes: 1.0% Mydriacyl, 2.5% Phenylep hrine @ 14:45 Glare Testing (BAT) Off High Right eye 20/25-1 20/25 Left eye 20/25-1 20/25-1 External Exam Right eye Left eye External Normal Normal Slit Lamp Exam Right eye Left eye Lids/Lashes Normal Normal Conjunctiva/Sclera White and quiet White and quiet Cornea ABMD changes ABMD changes Anterior Chamber Deep and quiet Deep and quiet Iris Round and reactive Round and reactive Lens 2+ Nuclear sclerosis, Trace 2+ Nuclear s clerosis, Trace Cortical cataract Cortical cataract, T race Posterior subcapsula r cataract Vitreous Posterior vitreous detachment Normal Fundus Exam Right eye Left eye Disc Normal Normal C/D Ratio 0.25 0.35 Macula Normal Few Drusen Vessels Normal Normal Periphery Normal Normal Manifest Refraction #1 (Auto) Sphere Cylinder Kelley Dist VA Right eye +1.50 +1.75 010 20/20 Left eye +0.75 +1.00 155 20/20 Manifest Refraction #2 Sphere Cylinder Kelley Dist VA Right eye +1.50 +0.75 005 20/25-1 Left eye +0.75 +1.25 010 20/25-1 Care Teams Peoplesoft Crm Developer Relationship Specialty Start Date End Date Campos Lopes MD PCP - General 05/21/09 [address] [place] [address] documented as of this encounter
--- OUTSIDE RECORDS SUMMARY | 2022-06-18 00:26 | XMS_ITS | Encounter Summary ---
:1940 Author Organization [facility] Address [address] [place] [address] Care Team Providers Name Role Phone Campos Lopes MD Primary Care Provider Reason for Visit Reason Onset Date Comments Other 11/17/2020 Encounter Details Date Type Department Care Team Description 11/17/2020 Telephone [facility] Alan Milton MD Other Gastroenterology - [facility] [address] [facility], [facility] [address] [facility], [address] [place], [place] [address] [place] [address] [phone] (Wo rk) Social History Tobacco Use [...] this encounter Miscellaneous Notes Telephone Encounter - Constanza Alfred RN - 11/17/2020 1144 EST Patient just spoke with [facility] to cancel tomorrow's EUS. Started blood thinners on Tuesday for PE, she will know more later today or tomorrow morning at the latest whether or not she will be on blood thinners [facility]cf. Wants to have EUS done to biopsy the mass in her stomach but needs to treat the PE as well. Patient will call back to schedule when she has more information regarding the PE. No further needs expressedat this time. documented in this encounter Plan of Treatment Not on filedocumented as of this encounter Visit Diagnoses Not on filedocumented in this encounter Care Teams Cleaner Industrial Relationship Specialty Start Date End Date Campos Lopes MD PCP - General 05/21/09 [address] [place] [address] documented as of this encounter
--- OUTSIDE RECORDS SUMMARY | 2022-06-18 00:26 | XMS_ITS | Encounter Summary ---
:1940 Author Organization [facility] Address [address] [place] [address] Care Team Providers Name Role Phone Campos Lopes MD Primary Care Provider Encounter Details Date Type Department Care Team Description 09/20/2019 Orders Only [facility] Nontoxic multinodular Endocrinology - Obdulio Wilson (Primary Dx) [address] MD [place], [place] [address] [address] [facility] [phone] [place] [address] Social History Tobacco Use Types Packs/Day Years [...] Date/Time Associated Diagnosis Comme nts T3, TOTAL Add-On 09/18/2019 16:14 EST Nontoxic multinodula r Results for this goiter procedure are i n the results section. TSH Add-On 09/18/2019 16:14 EST Nontoxic multinodula r Results for this goiter procedure are i n the results section. T4 FREE Add-On 09/18/2019 16:14 EST Nontoxic multinodula r Results for this goiter procedure are i n the results section. documented in this encounter Results (ABNORMAL) T3, TOTAL (09/18/2019 16:14 EST) Pathologist Sig nature T3, Total 182 (H) 97 - 169 ng/dL [facility] Specimen Blood - Venous blood (substance) Performing Organization Address City/[facility]/ZIP Code Phon e Number [facility] [address] [place] [address] SERVICES T4 FREE (09/18/2019 16:14 EST) Pathologist Sig nature T4, Free 1.4 0.8 - 2.2 ng/dL [facility] Specimen Blood - Venous blood (substance) Performing Organization Address City/[facility]/ZIP [facility] Phon e Number [facility] [address] [place] [address] SERVICES (ABNORMAL) TSH (09/18/2019 16:14 EST) Pathologist Sig nature TSH <0.02 (L) 0.47 - 4.68 uIU/mL [facility] Specimen Blood - Venous blood (substance) Narrative [facility] - 09/20/2019 11:54 EST The results of this assay can be falsely lowered due to the consumption of Biotin. Performing Organization Address City/State/ZIP Code Phon e Number [facility] [address] [place] [address] SERVICES documented in this encounter Visit Diagnoses Diagnosis Nontoxic multinodular goiter - Primary documented in this encounter Care Teams Calender Tender Relationship Specialty Start Date End Date Campos Lopes MD PCP - General 05/21/09 [address] [place], [place] [id number] documented as of this encounter
--- OUTSIDE RECORDS SUMMARY | 2022-06-18 00:26 | XMS_ITS | Encounter Summary ---
:1940 Author Organization [facility] Address [address] [place] [address] Care Team Providers Name Role Phone Campos Lopse MD Primary Care Provider Encounter Details Date Type Department Care Team Description 01/05/2017 Results Only Imaging [facility] Foot Sto ne, Albertina M, DPM & Ankle Program - [address] [facility], [facility] [address] [place], [place] 05 [facility] [phone] Social History Tobacco Use Types Packs/Day Years [...] Diagnosis Comme nts FOOT 3 OR MORE 01/05/2017 14:49 Results f or this VIEWS EDT procedure are i n the results section. documented in this encounter Results FOOT 3 OR MORE VIEWS (01/05/2017 14:49 EDT) Anatomical Region Laterality Modality Other Specimen Narrative [facility] [place]ILLEDA - 01/05/2017 16:38 EDT [...] Organization Address City/State/ZIP Code Phon e Number [facility] [place] documented in this encounter Visit Diagnoses Not on filedocumented in this encounter Care Teams Tool Machine Set Up Operator Relationship Specialty Start Date End Date Campos Lopes MD PCP - General 05/21/09 [address] [place] [address] documented as of this encounter
--- OUTSIDE RECORDS SUMMARY | 2022-06-18 00:26 | XMS_ITS | Encounter Summary ---
:1940 Author Organization [facility] Address [address] [place] [address] Care Team Providers Name Role Phone Campos Lopes MD Primary Care Provider Reason for Referral PT/OT/ST (Routine) - Closed Specialty Diagnoses / Procedures Referred By Contact Refer red To Contact Diagnoses Chronic pain of both shoulders Zandra Suárez MD [address] [address] Referral ID Status Reason Start Date Expiration Date Visits V isits Requested Authorized [id number] Closed Specialty 07/11/2017 1 1 Services Required Question Answer Reason for Request: Bilateral shoulder pain Reason for Visit Reason Comments Joint Pain Encounter Details Date Type Department Care Team Description 07/11/2017 Office Visit [facility] Zandra Suárez Arth ralgia, unspecified joint (Primary Dx); Rheumatology & MD Bud Primary osteoarthritis involving multipl e joints; Immunology - [facility] [address] [place], [place]; [address] Chronic pain of both shoulders [address] [address] [place] [address] Social History Tobacco Use Types [...] Sign Reading Time Taken Comments Blood Pressure 140/80 07/11/2017916 EDT Pulse 62 07/11/2017916 EDT Temperature - - Respiratory Rate - - Oxygen Saturation - - Inhaled Oxygen Concentration - - Weight - - Height 163.3 cm (5' 4.3) 07/11/2017916 EDT Body Mass Index - - documented in this encounter Functional Status Functional [...] as of this encounter Discharge Diagnoses Diagnosis M25.50 Pain in unspecified joint-M25.50[ ICD-10-CM] M15.0 Primary generalized (osteo)arthrit is-M15.0[ICD-10-CM] M65.4 Radial styloid tenosynovitis [de Q uervain]-M65.4[ICD-10-CM] M25.511 Pain in right shoulder-M25.511[I CD-10-CM] G89.29 Other chronic pain-G89.29[ICD-10- CM] M25.512 Pain in left shoulder-M25.512[IC D-10-CM] documented in this encounter Patient Instructions Patient InstructionsZandra Suárez MD - 07/11/2017 9:00 EDT I do not see any evidence of any systemic autoimmune disorders or inflammatory conditions at this time. Your current aches appear to be from a combination of Osteoarthritis and tendon strain - mild rotator cuff syndrome at shoulders, osteoarthritis at small joints of your hands and base of right thumb, strain of tendons at the base of right thumb, osteoarthritis at toes of both feet, strain of tendons on inner aspect of right foot and muscle spasm on plantar aspect of right foot. Start physical therapy for bilateral shoulders. Use a thumb spica splint for your right thumb during day when doing repetitive activities. Try heat and gentle massages to relieve the muscle spasm on your right foot. Continue Tylenol and Ibuprofen. documented in this encounter Discharge Disposition Disposition Code Departure Means Destination Auto Discharge documented in this encounter Progress Notes Zandra Suárez MD - 07/11/2017 0900 EDT DIVISION OF RHEUMATOLOGY AND CLINICAL IMMUNOLOGY CONSULT NOTE Date of Service: 07/11/2017 Patient seen in consultation at the request of Campos Lopes MD for rheumatologic evaluation for arthralgias. Chief Complaint Patient presents with ??? Joint Pain HISTORY OF PRESENT ILLNESS: Ms. Maureen Thomas is a 77 y.o. woman with h/o interstitial cystitis, asthma, multinodular goiter and osteopenia who presents today for rheumatologic evaluation for arthralgias. She complains of joint aches since the past 6 months. Her symptoms started with aches over bilateralhands that occurred after activities like lifting weights. No associated joint swelling, redness or warmth. These aches usually resolve on their own. She then developed right foot pain (in arch of foot) since the past 4 months. She reports that she was evaluated elsewhere was diagnosed with posterior tibial tendinitis and was referred to physical therapy. She had limited relief of symptoms with the same. She has not not had any swelling, redness or warmth in this region either. Since the past one month she also developed pain over the base of her right thumb and bilateral wrists. No swelling, redness or warmth in this region. Minimal aches have been present over bilateral shoulders (more on left side) since the past one week. She denies any strenuous activities that could have triggered any of these recent events. Other peripheral joints appear fine. She uses Tylenol and ibuprofen every morning and has modest control of symptoms with the same. She denies any significant back pain, neck pain, skin rashes, skin photosensitivity, skin psoriasis,oral ulcerations, lymphadenopathy, fevers, chills, weight changes, dyspnea, cough, pleurisy, chest pains, palpitations, abdominal pain, diarrhea, hematuria or raynaud's phenomenon. REVIEW OF SYSTEMS: Symptom Yes No Symptom Yes No Fever X Morning stiffness minimal Fatigue X Numbness/ tingling X Night sweats X Headaches X Weight change X Muscle weakness X Eye discomfort X Dysuria X Mouth/nose sores X Urinary frequency X Chest pain X Hematuria X Palpitations X Trouble sleeping X Dyspnea X Anxiety X Cough X Depression X Nausea/ vomiting X Change in mood X Abdominal pain X Skin rash/ changes X Blood in stools X Sun induced rash X Diarrhea X Raynaud's X Constipation X Itching X Joint pain X Hair loss X Muscle pain X Other X PMH PSH Past Medical History: Diagnosis Date ??? Thyroid disease suppressed TSH; nml T4 and T3 none ALLERGIES Allergies Allergen Reactions ??? Ciprofloxacin Other (See Comments) Ectopic heart beats ??? Dye IVP DYE ??? Elmiron [Pentosan Polysulfate Sodium] unknown ??? Epinephrine tachycardia ??? Iodine And Iodide Containing Products Hives ??? Methimazole Other (See Comments) unknown SOCIAL HISTORY FAMILY HISTORY Social History Substance Use Topics ??? Smoking status: Former Smoker Packs/day: 1.00 Years: 32.00 Quit date: 08/19/1995 ??? Smokeless tobacco: Never Used ??? 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 mother - osteoporosis No family history of autoimmune disease, IBD, psoriasis or ankylosing spondylitis. MEDICATIONS: Medications Prior to Today's Visit Medication Sig ??? albuterol (PROAIR HFA) 90 mcg/actuation inhaler [...] Place vaginally. Per vagina 2 x weekly ??? fluticasone-salmeterol (ADVAIR HFA) 230-21 mcg/actuation inhaler [...] hr Take 25 mg by mouth daily ??? Multivitamins with Minerals tablet tablet Take 1 Tab by mouth daily. ??? solifenacin (VESICARE) 10 mg tablet Take 5 mg by mouth daily. ??? tiotropium (SPIRIVA WITH HANDIHALER) 18 mcg inhalation capsule Inhale 18 mcg as directed daily. Reported on 01/05/2017 ??? TOLTERODINE TARTRATE (DETROL ORAL) Take by mouth. Reported on 01/05/2017 No facility-administered medications prior to visit. OBJECTIVE: Blood pressure 140/80, pulse 62, height 163.3 cm (64.3). General: No acute distress. Alert, fully oriented, pleasant, conversant. HEENT: Conjunctivae/corneas clear. Pupils equal, Sclerae anicteric. Mucus membranes moist; oropharynx clear. Neck supple, symmetrical, trachea midline Lungs: Clear to auscultation bilaterally. Heart: Regular rate and rhythm, S1, S2 present, no murmur Abdomen: Soft, non-tender, non-distended. Extremities: Extremities without cyanosis or edema. Skin: No rashes or lesions Musculoskeletal: Spine: No significant tenderness. Normal range of motion. Shoulder/Elbow: Minimal tenderness is noted over anterior aspects of bilateral shoulders during internal rotation. No synovitis or effusion. Wrist/Hand: Bony hypertrophic changes are noted over multiple small joints of hands bilaterally. Minimal tenderness is noted over right first CMC joint as well as on the radial aspect of right wrist. June's test is positive. No synovitis or effusion. Hips/Knee: No synovitis or effusion. Normal range of motion. Ankle/Foot: Minimal tenderness is noted with palpation over medial compartment tendons of right ankle (posterior tibialis, digitorum). A tender muscle spasm is also noted on plantar aspect of right foot. No synovitis or effusion. Bony hypertrophic changes with bunion formation and hallux valgus deformity is noted bilaterally. Hammertoes are noted at bilateral second and third toes. Labs: Recent labs from primary physician's office: DsDNA: Normal Blakely antibody: Normal MEMBERSHIP COORDINATOR antibody: Normal ScL 70 antibody: Normal Barbie 1 antibody: Normal SSA/SSB: Normal Imaging: IMPRESSION / PLAN: Ms. Maureen Thomas is a 77 y.o. woman with arthralgias. No evidence of inflammatory changes on examination. She was reassured that I do not see any evidence of any inflammatory arthropathy or any systemic autoimmune conditions at this time. Her current aches appear to be from osteoarthritis affecting multiple joints as well as periarticular strain of tendons. She was informed that the tendon strain is most likely a use related problems secondary to repetitive use. She was advised to start physical therapy for her bilateral shoulder aches. She will use thumb braces for the pain over base of right thumb during the day when doing repetitive activities. She will try heat and gentle massages to relieve the muscle spasms over her right foot. She will continue Tylenol and ibuprofen for symptom relief. PATIENT INSTRUCTIONS: Patient Instructions I do not see any evidence of any systemic autoimmune disorders or inflammatory conditions at this time. Your current aches appear to be from a combination of Osteoarthritis and tendon strain - mild rotator cuff syndrome at shoulders, osteoarthritis at small joints of your hands and base of right thumb, strain of tendons at the base of right thumb, osteoarthritis at toes of both feet, strain of tendons on inner aspect of right foot and muscle spasm on plantar aspect of right foot. Start physical therapy for bilateral shoulders. Use a thumb spica splint for your right thumb during day when doing repetitive activities. Try heat and gentle massages to relieve the muscle spasm on your right foot. Continue Tylenol and Ibuprofen. Patient verbalizes understanding and agrees with plan. There are no barriers to understanding/learning. Zandra Suárez MD 07/11/2017 Please note: Parts of this documentation was created using voice recognition software. Transcriptionerrors may be present. documented in this encounter Plan of Treatment Scheduled Referrals Name Type Priority Associated Diagnoses Order S chedule AMB CONS/FOLLOW UP Outpatient Referral Routine Chronic pain of both Ordered: PHYSICAL THERAPY shoulders 07/11/2017 documented as of this encounter Visit Diagnoses Diagnosis Arthralgia, unspecified joint - Primary Primary osteoarthritis involving multipl e joints Tendinitis, de Quervain's Radial styloid tenosynovitis Chronic pain of both shoulders Pain in joint, shoulder region documented in this encounter Discontinued Medications Medication Sig Discontinue Reason Start Date End Date tiotropium (SPIRIVA Inhale 18 mcg as Discontinued by 1 WITH HANDIHALER) 18 directed daily. another clinician mcg inhalation capsule Reported on 01/05/2017 mirabegron 25 mg Take 25 mg by mouth Discontinued by 12/30/2014 1 tablet extended daily another clinician release 24 hrIndications: Frequency of urination TOLTERODINE TARTRATE Take by mouth. Discontinued by (DETROL ORAL) Reported on another clinician 01/05/2017 documented as of this encounter Historical Medications This list may reflect changes made after this encounter. Medication Sig Dispensed Refills Start Date End Date PANTOPRAZOLE SODIUM Take by mouth 0 (PROTONIX ORAL) daily. added in this encounter Care Teams Design Printing Machine Set Up Operator Relationship Specialty Start Date End Date Campos Lopes MD PCP - General 05/21/09 [address] [place] [address] documented as of this encounter
--- OUTSIDE RECORDS SUMMARY | 2022-06-18 00:26 | XMS_ITS | Encounter Summary ---
:1940 Author Organization [facility] Address [address] [place] [address] Care Team Providers Name Role Phone Campos Lopes MD Primary Care Provider Encounter Details Date Type Department Care Team Description 11/11/2020 Hospital Encounter [facility] [address] [place] [address] Social History Tobacco Use Types Packs/Day Years [...] - Inhaled Oxygen Concentration - - Weight 81.6 kg (180 lb) 11/11/2020 0846 EST Height 167.6 cm (5' 6) 11/11/2020 0846 EST Body Mass Index 29.05 11/11/2020 0846 EST documented in this encounter Functional Status Functional [...] Care documented in this encounter Progress Notes Fifi Rodriguez RN - 11/11/2020 0830 EST COVID 19 Screening Perioperative at time of PAT Please document by exception (only check those that apply). Have you had any of the following symptoms recently? Yes Yes Chronic ? Cough X X - chronic mucous Shortness of breath or difficulty breathing Fever Chills Fatigue Muscle or body aches Severe Headache New loss of taste or smell Sore throat Congestion or runny nose X X chronic - assoc. W/ chronic mucous Rash Nausea, vomiting, or diarrhea (rare in adults. More common in children) Please elaborate if yes: If a chronic symptom is reported use your judgement if an anesthesia review is needed. Have you been in close contact with someone who has been diagnosed with Covid 19? No (close contact, within 6 feet of any [...] instruct them to call us back at [phone] to report symptoms (If patient is in Surgical Admissions and answers yes, please notify Surgery and Anesthesia team). Follow proper precautions- yellow mask to patient/family. Visitor Policy: -IP or OP PeriOp visitors: ??? One non sick visitor may accompany patient to surgical wait area ??? No visitors to PreOp or PACU o Exceptions: special needs and pediatrics ??? Support person can remain with the patient until they are called to Preop ??? The support person has the choice to leave at that time and get a phone update from the surgeon or remain in the surgical waiting area for an in person update from the surgeon in one of our consultrooms ??? Once they have been updated by the surgeon, they may exit the building for inpatients. Outpatient visitor can wait in the surgical wait area until patient is ready for discharge. -IP: Inpatient unit: ??? No visitors at this time -Pediatric patient: ??? One parent can come with child DOS, and is allowed with child in PreOp/PACU ??? Due to COVID 19 no parents are allowed to go back to OR. ??? Pediatric inpatients: one caregiver at bedside and one overnight -Children under age of 16 y.o. are not permitted. -Only ADA service animals are permitted into the hospital. All other animals, including previously approved therapy/support animals, are not allowed at this time. (No animals will be allowed into Preop, OR, or PACU) documented in this encounter OR Notes Preprocedure Instructions - Fifi Rodriguez RN - 11/11/2020 0830 EST Maureen Thomas has been instructed as follows regarding medication administration for the day of the scheduled procedure. Date of Surgery: 11/18/2020 Instructions for Taking Medications Day of Surgery [...] every 8 hours as needed for Pain. As directed by endoscopy losartan (COZAAR) 25 mg tablet Take 25 mg by mouth daily. Pt states not taking Not taking magnesium oxide (MAG-OX) 400 mg tablet Take 400 mg by mouth daily before breakfast. Currently takingYes Multivitamins with Minerals tablet tablet Take 1 Tab by mouth daily. 11/11/2020 omeprazole (PRILOSEC) 20 mg capsule Take by mouth daily. Pt does know dose As directed by endoscopy ranitidine (ZANTAC) 150 mg tablet Take 150 mg by mouth daily before breakfast. As directed by endoscopy solifenacin (VESICARE) 10 mg tablet Take 5 mg by mouth as needed. Yes documented in this encounter Plan of Treatment Not on filedocumented as of this encounter Visit Diagnoses Not on filedocumented in this encounter Discontinued Medications Medication Sig Discontinue Reason Start Date End Date PANTOPRAZOLE SODIUM Take by mouth Therapy completed (PROTONIX ORAL) daily. documented as of this encounter Historical Medications This list may reflect changes made after this encounter. Medication Sig Dispensed Refills Start Date End Date omeprazole (PRILOSEC) 20 Take by mouth daily. 0 02/17/2021 mg capsule Pt does know dose added in this encounter Care Teams Extruder Operator Helper Relationship Specialty Start Date End Date Campos Lopes MD PCP - General 05/21/09 [address] [place] [address] documented as of this encounter
--- OUTSIDE RECORDS SUMMARY | 2022-06-18 00:26 | XMS_ITS | Encounter Summary ---
:1940 Author Organization [facility] Address [address] [place] [address] Care Team Providers Name Role Phone Campos Lopes MD Primary Care Provider Reason for Visit Reason Comments Nasal Polyps ?PND New Patient Visit Referral (Routine) - Authorization Not Required Specialty Diagnoses / Procedures Referred By Contact Refer red To Contact Otolaryngology Diagnoses Post-nasal drip Laceration of ear region Campos Lopes MD Landrigan, Gary [address] [place] [address] [address] [place] [address] Phone: Fax: Referral ID Status Reason Start Expiration Visits Visits Date Date Requested Authorized [id number] Authorization Not 1 1 Required Encounter Details Date Type Department Care Team Description 10/25/2018 Office Visit [facility] Janie Laryngoph aryngeal reflux ENT- [facility] Salomon Dill, (LPR) (Primary Dx) [address] [place] [address] [address] [place] [address] Social History Tobacco Use Types Packs/Day Years [...] - Inhaled Oxygen Concentration - - Weight 77.1 kg (170 lb) 10/25/2018 1523 EST Height 167.6 cm (5' 6) 10/25/2018 1523 EST Body Mass Index 27.44 10/25/2018 1523 EST documented in this encounter Functional Status [...] as of this encounter Discharge Diagnoses Diagnosis K21.9 Gastro-esophageal reflux disease w ithout esophagitis-K21.9[ICD-10-CM] documented in this encounter Ordered Prescriptions Prescription Sig Dispensed Refills Start Date End Date ranitidine (ZANTAC) 150 mg Take 2 Tabs by 240 Tab 0 10/2512/24/2018 tablet mouth 2 times daily for 60 days. documented in this encounter Discharge Disposition Disposition Code Departure Means Destination Auto Discharge documented in this encounter Progress Notes Carina Quiles MD - 10/25/2018 1515 EST Subjective: Patient ID: Maureen Thomas is an 78 y.o. female seen in consultation at the request of MD Eli for evaluation of postnasal drip. Chief Complaint Patient presents with ??? Nasal Polyps ?PND ??? New Patient Visit HPI 78 yo female with history of gastric ulcer who presents for evaluation of postnasal drip. Symptoms started this summer. She complains of significant mucous production in the back of her throat and dripping from the back of her nose. This associated with voice changes (raspy), cough, throat clearing. Sy mptoms typically worse at night. She thought this was due to allergies and takes singulair and zyrtec intermittently without relief in symptoms. Denies heartburn. She tried flonase for four months without improvement. She saw an garage door hanger today and was skin tested. Allergies include dogs, cats, fungus, ragweed. No pets in the home. She currently takes zantac as needed for stomach discomfort. Patient Active Problem List Diagnosis ??? Hypertensive disorder ??? Tremor ??? Vulvodynia ??? Nontoxic multinodular goiter ??? 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 Thyroid disease suppressed TSH; nml T4 and T3 No past surgical history on file. No family history on file. Social Social History Socioeconomic History ??? Marital status: Single Spouse name: Not on file ??? Number of children: Not on file ??? Years of education: Not on file ??? Highest education level: Not on file Social Needs ??? Financial resource strain: Not on file ??? Food insecurity - worry: Not on file ??? Food insecurity - inability: Not on file ??? Transportation needs - medical: Not on file ??? Transportation needs - non-medical: Not on file Occupational History ??? Not on file Tobacco Use ??? Smoking status: Former Smoker Packs/day: 1.00 Years: 32.00 Pack years: 32.00 Last attempt to quit: 08/19/1995 Years since quittin.2 ??? Smokeless tobacco: Never Used Substance and Sexual Activity ??? Alcohol use: Yes Comment: very rare ??? Drug use: No ??? Sexual activity: Not on file Other Topics Concern ??? Not on file Social History Narrative ??? Not on file Outpatient Medications Marked as Taking for the 10/25/18 encounter (Office Visit) with Salomon Lima MD Medication Sig Dispense Refill ??? atenolol (TENORMIN) 50 mg tablet Take [...] Take 400 mg by mouth daily. ??? Multivitamins with Minerals tablet tablet Take 1 Tab by mouth daily. ??? solifenacin (VESICARE) 10 mg tablet Take 5 mg by mouth daily. Allergies Allergen Reactions ??? Ciprofloxacin Other (See Comments) Ectopic heart beats ??? Dye IVP DYE ??? Elmiron [Pentosan Polysulfate Sodium] unknown ??? Epinephrine tachycardia ??? Iodine And Iodide Containing Products Hives ??? Methimazole Other (See Comments) unknown ROS - See HPI Objective: Ht 167.6 cm (66) Wt 77.1 kg (170 lb) BMI 27.44 kg/m?? Physical Exam Department of Otolaryngology PHYSICAL EXAMINATION CONSTITUTIONAL: VITAL SIGNS: Not reviewed APPEARANCE: The patient appears alert, cooperative, and comfortable. ABILITY TO COMMUNICATE / VOICE: Voice quality: raspy HEAD AND FACE: INSPECTION: Normal without apparent scars, lesions, or masses. PALPATION: There are no masses or sinus tenderness. SALIVARY GLANDS: Submandibular and Parotid glands are normal bilaterally FACIAL STRENGTH: Intact and symmetrical bilaterally EXTERNAL EAR & NOSE: No external ear or nose deformity noted EYES: EYES: normal EARS, NOSE, MOUTH AND THROAT: OTOSCOPY: Right external auditory canal: patent and non-inflamed Left external auditory canal: patent and non-inflamed Right tympanic membrane: intact without retraction, perforation or effusion Left tympanic membrane: intact without retraction, perforation or effusion WHISPER/TUNING FORK: Not assessed NOSE: normal turbinates and mucosa: septum in midline LIPS, TEETH & GUMS: normal for age ORAL CAVITY & OROPHARYNX: normal HYPOPHARYNX & PHARYNGEAL FLORES: See flexible exam report LARYNX: See flexible exam report NASOPHARYNX: See flexible exam report NECK: GENERAL: Supple, no asymmetry or crepitus, trachea midline THYROID: Not examined LYMPHATIC: CERVICAL LYMPH NODES: No pathologic cervical lymphadenopathy noted RESPIRATORY: LUNGS: Not examined CARDIOVASCULAR: CARDIOVASCULAR: Not examined NEUROLOGIC: NEUROLOGIC: Normal mood and affect Endoscopy Procedure Note Pre-procedure Diagnosis: Hoarseness / Dysphonia Post-procedure Diagnosis: LPR Indications: Hoarseness, dysphagia or aspiration - not able to be clearly evaluated by indirect laryngoscopy Anesthesia: Cophenylcaine Endoscopy Type: Laryngoscopy using a flexible laryngoscope Procedure Details: With the patient sitting upright in the examining chair informed consent was obtained. The left nostril was topically anesthetized with cotton pledgets and right nostril was topically anesthetized withcotton pledgets. After waiting an appropriate period of time for anesthesia/ vasoconstriction to become effective (if this was applicable), the scope was passed into the left nostril and the nasopharynx, oropharynx, hypopharynx and larynx were examined. Condition: Patient tolerated procedure well and left the office in a stable condition. Complications: None Findings: Nasopharynx: Normal exam of choanae, eustachian tubes, and adenoids for age Oropharynx: Normal exam of tongue base, tonsils, and posterior pharynx Hypopharynx: normal piriform sinus, some pooling of secretions Larynx: normal vocal fold mobility and edematous posterior vocal folds and interarytenoid area Assessment: 78 yo female who presents with significant postnasal discharge, voice changes, throat clearing foundto have significant interarytenoid edema and secretions. Also worsening reflux problems . History and exam consistent with LPR. Plan: LPR: Antireflux treatment is recommended for a minimum of 3 months. 1. LPR pamphlet given to patient. 2. Zantac 300mg BID. 3. Recommended raising head of bed with 4 inch blocks 4. Follow up with PCP in 2-3 months to review GERD .Contingency would include GI Consult per Dr. Lopes` discretion. 5. Follow up in ENT clinic prn. Carina Quiles MD Otolaryngology Resident PGY-1, #[id number] Attestation statement: I saw and examined the patient with the resident/fellow. I agree with the findings and plan of care documented in the resident's/fellow's note. I supervised and performed the procedure as described above. MD OTTO Noble MD Veronika Jedlovszky, MD documented in this encounter Plan of Treatment Not on filedocumented as of this encounter Visit Diagnoses Diagnosis Laryngopharyngeal reflux (LPR) - Primary Other diseases of larynx documented in this encounter Care Teams Senior Procurement Specialist Relationship Specialty Start Date End Date Campos Lopes MD PCP - General 05/21/09 [address] [place] [address] documented as of this encounter
--- OUTSIDE RECORDS SUMMARY | 2022-06-18 00:26 | XMS_ITS | Encounter Summary ---
:1940 Author Organization [facility] Address [address] [place] [address] Care Team Providers Name Role Phone Campos Lopes MD Primary Care Provider Encounter Details Date Type Department Care Team Description 06/23/2016 Hospital Encounter [facility] [address], [address] [place], [place] [address] [facility] [id number] [phone] (Wo rk) Social History Tobacco Use Types [...] on file documented as of this encounter Discharge Diagnoses Diagnosis M79.645 Pain in left finger(s)-M79.645[I CD-10-CM] documented in this encounter Medications at Time of Discharge Medication Sig Dispensed Refills Start Date End Date albuterol (PROAIR HFA) 90 Inhale 1-2 Puffs as 0 mcg/actuation inhaler directed every 6 hours as needed for Wheezing. Reported on 01/05/2017 atenolol (TENORMIN) 50 mg Take 25 mg by mouth 0 tabletIndications: daily before Hyperthyroidism breakfast. ergocalciferol, vitamin Take 2,000 Units by 0 D2, 2,000 unit tablet mouth daily. Twice weekly estradiol (ESTRACE) 0.01 % Place vaginally. 1 Tube 11 (0.1 mg/g) vaginal cream Per vagina 2 x weekly fluticasone-salmeterol Inhale 2 Puffs as directed 2 times daily . 0 (ADVAIR HFA) 230-21 mcg/actuation inhaler ibuprofen (MOTRIN) 200 mg Take 4 Tabs by 0 tablet mouth every 8 hours as needed for Pain. mirabegron 25 mg tablet Take 25 mg by mouth 30 Tab 11 07/11/2017 extended release 24 daily hrIndications: Frequency of urination tiotropium (SPIRIVA WITH Inhale 18 mcg as 0 07/11/2017 HANDIHALER) 18 mcg directed daily. inhalation capsule Reported on 01/05/2017 TOLTERODINE TARTRATE Take by mouth. 0 07/11/2017 (DETROL ORAL) Reported on 01/05/2017 documented as of this encounter Discharge Disposition Disposition Code Departure Means Destination Home or Self Detention documented in this encounter Plan of Treatment Not on filedocumented as of this encounter Visit Diagnoses Not on filedocumented in this encounter Care Teams Logistics Engineer Relationship Specialty Start Date End Date Campos Lopes MD PCP - General 05/21/09 [address] [place] [address] documented as of this encounter
--- OUTSIDE RECORDS SUMMARY | 2022-06-18 00:26 | XMS_ITS | Encounter Summary ---
:1940 Author Organization [facility] Address [address] [place] [address] Care Team Providers Name Role Phone Campos Lopes MD Primary Care Provider Encounter Details Date Type Department Care Team Description 11/15/2019 Orders Only [facility] Stephen Liriano al Endocrinology - Obdulio Wilson hyperthyroidism (Primary [address] P, Dx) [place], [place] [address] [address] [place] [address] Social History Tobacco Use Types [...] as of this encounter Visit Diagnoses Diagnosis Subclinical hyperthyroidism - Primary Thyrotoxicosis without mention of goiter or other cause, without mention of thyrotoxic crisis or storm documented in this encounter Care Teams Oracle Bpm Consultant Relationship Specialty Start Date End Date Campos Lopes MD PCP - General 05/21/09 [address] [place] [address] documented as of this encounter
--- OUTSIDE RECORDS SUMMARY | 2022-06-18 00:26 | XMS_ITS | Encounter Summary ---
:1940 Author Organization [facility] Address [address] [place] [address] Care Team Providers Name Role Phone Campos Lopes MD Primary Care Provider Reason for Visit Reason Onset Date Comments Patient Outreach 11/07/2019 Encounter Details Date Type Department Care Team Description 11/07/2019 Telephone [facility] Antonia Gray Outreach Endocrinology - [facility] Obdulio Nieves MD [address] [place] [address] [address] [facility] [place], [place] [address] [place] [address] [phone] [address] Social History Tobacco Use Types Packs/Day [...] this encounter Miscellaneous Notes Telephone Encounter - Post, JAZIEL Davila - 11/07/2019 1127 EST Pt called to state that when she was called and scheduled for her bone density scan (12/04/19), the person scheduling her did not see any orders for premedication. Pt states that she is very sensitive to IV contrast and discussed this with Dr. Mitchell at her appointment with him 09/09/19. Pt would prefer that Dr Mitchell call her and let her know what he plans to do regarding any premedication as she has sensitivities to IV contrast and other medications.. Patient verbalized understanding. No barriers to learning noted. Lola Brewster RN Endocrinology elephone Encounter - Stefania Dooley - 11/07/2019 0872 EST Patient would like to speak with a nurse regarding her Bone density she has a question. documented in this encounter Plan of Treatment Not on filedocumented as of this encounter Visit Diagnoses Not on filedocumented in this encounter Care Teams Private Branch Exchange Operator Relationship Specialty Start Date End Date Campos Lopes MD PCP - General 05/21/09 [address] [place] [address] documented as of this encounter
--- OUTSIDE RECORDS SUMMARY | 2022-06-18 00:26 | XMS_ITS | Encounter Summary ---
:1940 Author Organization [facility] Address [address] [place] [address] Care Team Providers Name Role Phone Campos Lopes MD Primary Care Provider Reason for Visit Reason Onset Date Comments Returning Call 07/03/2015 Encounter Details Date Type Department Care Team Description 07/03/2015 Telephone [facility] Angel Mcleod MD Returning Call Urology - [id number] [place] [address] [place] [phone] (Wo rk) Social History Tobacco Use Types [...] this encounter Miscellaneous Notes Telephone Encounter - Nicolasa Beth - 07/03/2015 1050 EDT Reason for Call: Returning Call Summary/Symptoms: pt calling.... Refused to give reason as to why. Would like Machelle to call Beth Nicolasa 07/03/2015 10:50 documented in this encounter Plan of Treatment Not on filedocumented as of this encounter Visit Diagnoses Not on filedocumented in this encounter Care Teams Recreation Counselor Relationship Specialty Start Date End Date Campos Lopes MD PCP - General 05/21/09 [address] [place] [address] documented as of this encounter
--- OUTSIDE RECORDS SUMMARY | 2022-06-18 00:26 | XMS_ITS | Encounter Summary ---
:1940 Author Organization [facility] Address [address] [place] [address] Care Team Providers Name Role Phone Campos Lopes MD Primary Care Provider Reason for Visit Reason Onset Date Comments Appointment Related 12/11/2018 Encounter Details Date Type Department Care Team Description 12/11/2018 Telephone [facility] Juliane Hanks RN Appoin tment Related [place] [address] Social History Tobacco Use Types Packs/Day Years [...] Telephone Encounter - Juliane Hanks RN - 12/11/2018 7737 EST Called patient to discuss referral for EGD. Patient would like to come to our office for a consultation versus an EGD. She is shocked that our office would schedule a procedure prior to scoping a patient. Explained to patient the process involved in open endoscopy. She feels that she may need a different test done (24 hour Ph probe). Even if this is the case , she would like a consultation first. Dr Lopes's office was called . They will send a new referral for a consultation. Explained to patient that our MD's are booking several months out. If her MD needs her seen sooner, suggested that her Primary Care discuss with our GI MD's. She verbalized understanding. documented in this encounter Plan of Treatment Not on filedocumented as of this encounter Visit Diagnoses Not on filedocumented in this encounter Care Teams Composite Technician Relationship Specialty Start Date End Date Campos Lopes MD PCP - General 05/21/09 [address] [place] [address] documented as of this encounter
--- OUTSIDE RECORDS SUMMARY | 2022-06-18 00:26 | XMS_ITS | Encounter Summary ---
:1940 Author Organization [facility] Address [address] [place] [address] Care Team Providers Name Role Phone Campos Lopes MD Primary Care Provider Encounter Details Date Type Department Care Team Description 02/21/2020 Lab Requisition [facility] Outr Resulting Lab, Pathology & Laboratory Provider [facility] [address] [id number] Social History Tobacco Use Types Packs/Day Years [...] Procedure Name Priority Date/Time Associated Comments Diagnosis DO NOT ORDER Today 02/21/2020 11:43 Results for this STANDALONE - BROAD EDT procedure are in COVID TEST the results section. COVID-19 TESTING Routine 02/21/2020 11:43 Results for this EDT procedure are i n the results section. documented in this encounter Results DO NOT ORDER STANDALONE - BROAD COVID TEST (02/21/2020 11:43 EDT) COVID-19 rt-PCR NEGATIVE Negative [facility] Result Comment: LABORATORY 2019-novel Coronavirus (2019 -nCoV) not detected by the qRT-PCR assay. Consider testing for other respiratory viruses or re-collecting for 2019-nCoV testing. Note: Optimum timing for peak viral levels du ring infections caused by 20 -nCoV have not been determined. Collection of multiple specimens from the same patient may be necessary to detect the virus. Limitations Positive results are indicat osman of active infection with SARS-CoV-2 but do not rule out bacterial infection or co-infection with other viruses. The agent detected may not be the definite cause of diseas e. In addition, detection of viral RNA may not indicate the presence of infectious virus or that SARS-CoV-2 is the causative agent for clinical symptoms. Negative results do not prec lude SARS-CoV-2 infection and should not be used as the sole basis for patient management decisions. Negative results must be combined with clinical observations, patient his tory, and epidemiological in formation. False negative results may also occur if amplification inhibitors are present in the specimen or if inadequate numbers of organisms are present in the specimen. Op timum specimen types and owen ing for peak viral levels during infections caused by SARS-CoV-2 have not been fully determined. Collection of multiple specimens (types and time points) from the same patient may be necessary to detect the virus. The test was validated for u se with upper respiratory specimens obtained via nasopharyngeal or oropharyngeal swabs in VTM, UTM, M4, M5, M6, saline, and MTM media. The performance of this test has not be en established for other spe cimens. Specimens collected using other FDA recommended Specimen Collection Materials listed in the FDA COVID-19 Diagnostic Technologies communication (January 03, 2020) are pr ocessed with the caveat that they were not all validated for use with this test and the result must be interpreted in this context. Furthermore, a false negative results may occur if a specimen is improperly collected, transported or handled. If the virus mutates in the RT-PCR target region, SARS-CoV-2 may not be detected or may be detected less predictably. Inhibitors or other types of interference may produce a false negative result. An interference study evaluating the effect of common cold medications was not performed. This test is not FDA-cleared but its performance characteristics were established by our CLIA-certified, CAP-accredited, high complexity laboratory in accordance with CLIA regulations, College of [employer] (CAP) guidel chiqui (Dec 27, 2019), and FDA guidance (Dec 08, 2019). This test is only for use un dominick the Food and Drug Administration's Emergency Use Authorization. Specimen Swab - Entire nasopharynx (body structur e) Performing Organization Address City/State/ZIP Code Phon e Number [facility] [place], [place] COVID-19 TESTING (02/21/2020 11:43 EDT) COVID-19 rt-PCR NEGATIVE Negative [facility] Result Comment: LABORATORY 2019-novel Coronavirus (2019 -nCoV) not detected by the qRT-PCR assay. Consider testing for other respiratory viruses or re-collecting for 2019-nCoV testing. Note: Optimum timing for peak viral levels du ring infections caused by 20 19-nCoV have not been determined. Collection of multiple specimens from the same patient may be necessary to detect the virus. Limitations Positive results are indicat osman of active infection with SARS-CoV-2 but do not rule out bacterial infection or co-infection with other viruses. The agent detected may not be the definite cause of diseas e. In addition, detection of viral RNA may not indicate the presence of infectious virus or that SARS-CoV-2 is the causative agent for clinical symptoms. Negative results do not prec lude SARS-CoV-2 infection and should not be used as the sole basis for patient management decisions. Negative results must be combined with clinical observations, patient his tory, and epidemiological in formation. False negative results may also occur if amplification inhibitors are present in the specimen or if inadequate numbers of organisms are present in the specimen. Op timum specimen types and owen ing for peak viral levels during infections caused by SARS-CoV-2 have not been fully determined. Collection of multiple specimens (types and time points) from the same patient may be necessary to detect the virus. The test was validated for u se with upper respiratory specimens obtained via nasopharyngeal or oropharyngeal swabs in [facility], UTM, M4, M5, M6, saline, and MTM media. The performance of this test has not be en established for other spe cimens. Specimens collected using other FDA recommended Specimen Collection Materials listed in the FDA COVID-19 [employer] communication (January 03, 2020) are pr ocessed with the caveat that they were not all validated for use with this test and the result must be interpreted in this context. Furthermore, a false negative results may occur if a specimen is improperly collected, transported or handled. If the virus mutates in the RT-PCR target region, SARS-CoV-2 may not be detected or may be detected less predictably. Inhibitors or other types of interference may produce a false negative result. An interference study evaluating the effect of common cold medications was not performed. This test is not FDA-cleared but its performance characteristics were established by our CLIA-certified, CAP-accredited, high complexity laboratory in accordance with CLIA regulations, [employer] of [employer] (CAP) guidel chiqui (Dec 27, 2019), and FDA guidance (Dec 08, 2019). This test is only for use un dominick the Food and Drug Administration's Emergency Use Authorization. Performing Lab [facility] LABORATORY SERVICES Specimen Swab - Entire nasopharynx (body structur e) Performing Organization Address City/State/ZIP Code Phon e Number [facility] [address] [place] [address] SERVICES [facility] [place], [place] documented in this encounter Visit Diagnoses Not on filedocumented in this encounter Care Teams Software Deployment Engineer Relationship Specialty Start Date End Date Campos Lopes MD PCP - General 05/21/09 [address] [place], [place] [id number] documented as of this encounter
--- OUTSIDE RECORDS SUMMARY | 2022-06-18 00:26 | XMS_ITS | Encounter Summary ---
:1940 Author Organization [facility] Address [address] [place] [address] Care Team Providers Name Role Phone Campos Lopes MD Primary Care Provider Encounter Details Date Type Department Care Team Description 10/07/2020 Orders Only [facility] Alan Milton for Gastroenterology - [facility] Arabella Shea preprocedure [place] [address] [place] [address] screening laboratory [address] [place] [address] testing for COVID-19 [place], [place] [id number] [place] [address] (Primary Dx) [phone] Pavilion, Level [address] [place] [address] Social History Tobacco Use Types [...] Primary documented in this encounter Care Teams Patrol Officer Relationship Specialty Start Date End Date Campos Lopes MD PCP - General 05/21/09 [address] [place] [address] documented as of this encounter
--- OUTSIDE RECORDS SUMMARY | 2022-06-18 00:26 | XMS_ITS | Encounter Summary ---
:1940 Author Organization [facility] Address [address] [place] [address] Care Team Providers Name Role Phone Campos Lopes MD Primary Care Provider Encounter Details Date Type Department Care Team Description 09/03/2020 Lab Requisition [facility] Outr Resulting Lab, Pathology & Laboratory Provider [facility] [address] [place] [id number] Social History Tobacco Use Types Packs/Day Years [...] on filedocumented in this encounter Care Teams Mortar Worker Relationship Specialty Start Date End Date Campos Lopes MD PCP - General 05/21/09 [address] [place] [address] documented as of this encounter
--- OUTSIDE RECORDS SUMMARY | 2022-06-18 00:26 | XMS_ITS | Encounter Summary ---
:1940 Author Organization [facility] Address [address] [place] [address] Care Team Providers Name Role Phone Campos Lpoes MD Primary Care Provider Reason for Visit Reason Onset Date Comments Results 09/21/2019 Encounter Details Date Type Department Care Team Description 09/21/2019 Telephone [facility] Endocrinology - PostLola RN Results [place] [address] [place] [address] Social History Tobacco Use Types Packs/Day Years [...] this encounter Miscellaneous Notes Telephone Encounter - PostLola RN - 09/21/2019 0812 EST Called pt to relay Dr. Mitchell's message: In my note it said her tsh, [...] T4 and Total T3 in 6 weeks Pt would like an uptake and scan. She would like more information on the uptake and scan to be able to better plan for the procedure since she lives in [place] and will need to manage travel time and/or accommodations. Patient verbalized understanding. No barriers to learning noted. Lola Brewster RN Endocrinology documented in this encounter Plan of Treatment Not on filedocumented as of this encounter Visit Diagnoses Not on filedocumented in this encounter Care Teams Billing Auditor Relationship Specialty Start Date End Date Campos Lopes MD PCP - General 05/21/09 [address] [place] [address] documented as of this encounter
--- OUTSIDE RECORDS SUMMARY | 2022-06-18 00:26 | XMS_ITS | Encounter Summary ---
:1940 Author Organization [facility] Address [address] [place] [address] Care Team Providers Name Role Phone Campos Lopes MD Primary Care Provider Reason for Visit Reason Onset Date Comments Appointment Related 11/15/2019 Encounter Details Date Type Department Care Team Description 11/15/2019 Telephone [facility] Danny Blakely RN Appoi ntment Related Endocrinology - [address] [place] [address] Social History Tobacco Use Types Packs/Day [...] this encounter Miscellaneous Notes Telephone Encounter - Obdulio Gray MD - 11/15/2019 1828 EST You can call her now Danny Mendoza - is the official answer that its best to wait 2 years after last DXA or can she do it now, She is insisting Call me please Will be at clinic tomorrw elephone Encounter - Danny Blakely RN - 11/15/2019 1439 EST Calling patient 11/15/19 14:[address] Obdulio Nichols MD for a nuclear medicine uptake and scan. If indicated, treatment for hyperthyroidism possible at time of appointment. Date Initials Scheduled with nuc med: 11/15/19 JPS Contact patient: Review schedule with patient: 11/15/19 JPGraham Discuss VENTURA treatment precautions: 11/15/19 SHIVANI Advised to stop medication 11/15/19 JPS E-mail handouts: 11/15/19 SHIVANI VENTURA precautions appointment letter: Patient's e-mail : This policy writer sales read back e-mail : DANNY BLAKELY RN 11/15/2019 documented in this encounter Plan of Treatment Not on filedocumented as of this encounter Visit Diagnoses Not on filedocumented in this encounter Care Teams Motor Bus Driver Relationship Specialty Start Date End Date Campos Lopes MD PCP - General 05/21/09 [address] [place] [address] documented as of this encounter
--- OUTSIDE RECORDS SUMMARY | 2022-06-18 00:26 | XMS_ITS | Encounter Summary ---
:1940 Author Organization [facility] Address [address] [place] [address] Care Team Providers Name Role Phone Campos Lopes MD Primary Care Provider Reason for Referral PT/OT/ST (Routine) - Specialty Report Received Specialty Diagnoses / Procedures Referred By Contact Refer red To Contact Rehab Therapies Diagnoses Fracture of finger of left hand with malunion Godwin Carney [facility] [place] [address] Fax: Referral ID Status Reason Start Expiration Visits Visits Date Date Requested Authorized [id number] Specialty Specialty 06/23/2016 1 1 Report Services Received Required Question Answer Reason for Request: L SF P1 malunion, work on lloyd nd intrinsic function, SF strength Reason for Visit Reason Comments Finger Injury Left 5th Finger Consult, Test and Treat (Routine) - Closed Specialty Diagnoses / Procedures Referred By Contact Refer red To Contact Orthopedic Surgery Diagnoses Finger fracture Self, Referral [place] Upper Extremity [address] [facility] [address] Phone: Fax: Referral ID Status Reason Start Date Expiration Date Visits Requ ested Visits Authorized [id number] Closed 1 1 Encounter Details Date Type Department Care Team Description 06/23/2016 Office Visit [facility] Avis aCrney Fracture of finger of Hand & Upper Extremity [address] left hand with Program - [place] malunion (Primary Dx) [address] [place] [address] [place], [place] [phone] [address] (Work) [phone] Social History Tobacco Use Types Packs/Day Years [...] as of this encounter Discharge Diagnoses Diagnosis S62.617P Displaced fracture of proximal phalanx of left little finger, subsequent encounter for fracture with malunion-S62 .617P[ICD-10-CM] S62.609P Fracture of unspecified phalanx of unspecified finger, subsequent encounter for fracture with malunion-S62.609P[ICD- 10-CM] documented in this encounter Discharge Disposition Disposition Code Departure Means Destination Auto Discharge documented in this encounter Progress Notes Godwin Carney MD - 06/25/2016 0815 EDT Chief Complaint Patient presents with ??? Finger Injury Left 5th Finger History of Present Illness: Maureen Thomas is a 76 y.o. right hand-dominant female who presents complaining of trouble withher left small finger. She states that it doesn't work right because it is crooked. She has a history of a fracture in October, while in [facility]. She states that she was reaching down from a sofaand her finger broke. She did not have any immediate treatment. She subsequently saw Dr. Becerra whenlaneanthony returned to the [facility], and was referred to us for possible osteotomy after x-rays revealed a malunion. She states that she did have a DEXA scan and that she was told that she does not have osteoporosis. She is not currently on any articular medications for bone health, though states that she takes a lot of vitamins; she is a vegetarian. At this point, her problem is not so much as it is dysfunction. She feels that she has difficulty with certain tasks of dexterity such as typing and playing the piano. She would like her finger to be normal again. Past Medical History Diagnosis Date ??? Thyroid disease suppressed TSH; nml T4 and T3 Social History: Pt is not a smoker. 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 Review of Systems: A 10 point review of systems was negative for any significant findings except as noted in the HPI. Imaging/Diagnostic Data: Plain radiographs, including AP, lateral, and/or orthogonal views of left hand obtained today, were independently reviewed by myself. These films demonstrate diffuse osteopenia within fingers. There elizabeth notable apex-radial and apex-volar malunion of the base of the small finger proximal phalanx Physical Exam: Vitals: There were no vitals taken for this visit. General: no acute distress Psychiatric: normal affect Eyes: extra-ocular muscles intact, pupils equal ENT: hearing intact at normal conversational levels CV: regular rate by palpation of peripheral pulse Pulmonary: no audible wheezes, no coughs, non-labored breathing Skin: no obvious rashes Focused extremity exam: Examination of left small finger reveals an approximately 20?? flexion contracture at the PIP joint.There is no gross abduction deformity, and the overall alignment of the finger is comparable to the contralateral side, with the exception of the PIP flexion deformity. She is unable to place her hand flat on the table. She is able to fully adduct the small finger. Her PIP range of motion is from 20-85?? flexion. She is able to touch her palm. She had no particular pain at the MP or PIP joints. She has a few Dupuytren's nodules within her palm, though no cords. Her sensation is intact. Her perfusionis normal. Her nail plate is growing. Assessment: This is a 76 y.o. right hand-dominant female with a left small finger proximal phalanx malunion, susan small finger PIP flexion contracture. Currently, while she has some dysfunction, her overall function of the small finger is quite good. My concern is that her expectations with a surgery are beyond the reasonable, anticipated outcomes of a malunion reconstruction in this location. I feel that the risks of surgery, particularly the risk of loss of flexion, outweigh the potential benefit of surgery for her. As the flexion contracture at the PIP joint compensates for the malunion at the base of the proximal phalanx, I do not expect that that will change. Plan: OT for dexterity exercises, to maximize the function that she can get from this hand Follow-up: PRN I have discussed the diagnosis and treatment options with the patient who has indicated understanding and agreement with the plan. I spent a total of 35 minutes in face to face time with this patient today and >50% of that time was spent in counseling and coordination of care as described in the progress note. Godwin Carney MD 06/23/2016 documented in this encounter Plan of Treatment Scheduled Referrals Name Type Priority Associated Diagnoses Order S chedule AMB CONS/FOLLOW UP Outpatient Referral Routine Fracture Of Fin jagruti Ordered: HAND THERAPY Of Left Hand With 06/23/2016 Malunion documented as of this encounter Visit Diagnoses Diagnosis Fracture of finger of left hand with mal union - Primary documented in this encounter Care Teams Derrick Worker Well Service Relationship Specialty Start Date End Date Campos Lopes MD PCP - General 05/21/09 [address] [place] [address] documented as of this encounter
--- OUTSIDE RECORDS SUMMARY | 2022-06-18 00:26 | XMS_ITS | Encounter Summary ---
:1940 Author Organization [facility] Address [address] [place] [address] Care Team Providers Name Role Phone Campos Lopes MD Primary Care Provider Reason for Visit Reason Onset Date Comments Cough 11/13/2018 Encounter Details Date Type Department Care Team Description 11/13/2018 Telephone [facility] ENT Main Sydnee Lima Cough [place] MD [place] [address] [facility] [address] [place] [address] [place], [place] [phone] (Wo rk) Social History Tobacco Use Types [...] this encounter Miscellaneous Notes Telephone Encounter - Quentin Cerda, RN - 11/13/2018 1019 EST Refuses to talk to me about issue, insisted on discussing her opinion of her phone experience with scoa and how it was inappropriate, I tried to steer her back to the fact there was a nurse on the phone now and we didn't need to discuss that. She insists on talking to Dr. Lima or the resident whosaw her so she doesn't need to repeat herself multiple times i'm a RN. I told her I would send this to Dr. Quiles to call her. elephone Encounter - Yoon Lopez - 11/13/2018 0924 EST Pt is calling, she states she wants to speak with a medically trained professional, I explained I could route a message out to the nurse, I just need some more information. She states that she was michael couple weeks ago by Dr. Lima and the medication she was prescribed is not working, I asked ifit was the zantac, she said yes, I asked what the symptoms were she got loud with me and stated youhave it in my records I dont want to keep explaining myself, I want to talk to someone who is medically trained. I told the patient I needed more information to route the message out to the provider and his nurse, and she got loud with me and didn't want to give me anymore information, so I politely t old the pt I would route the message to the provider and told her I was disconnecting the phone call. documented in this encounter Plan of Treatment Not on filedocumented as of this encounter Visit Diagnoses Not on filedocumented in this encounter Care Teams Prescription Eyeglass Maker Relationship Specialty Start Date End Date Campos Lopes MD PCP - General 05/21/09 [address] [place] [address] documented as of this encounter
--- OUTSIDE RECORDS SUMMARY | 2022-06-18 00:26 | XMS_ITS | Encounter Summary ---
:1940 Author Organization [facility] Address [address] [place] [address] Care Team Providers Name Role Phone Campos Lopes MD Primary Care Provider Reason for Visit Reason Onset Date Comments Other 11/14/2019 Encounter Details Date Type Department Care Team Description 11/14/2019 Telephone [facility] Ayad Gray Other Endocrinology - Edgardo Nieves MD [address] [facility] [address] [place], [place] [address] [place] [address] [phone] Social History Tobacco Use Types Packs/Day [...] this encounter Miscellaneous Notes Telephone Encounter - Danny Blakely RN - 11/15/2019 1202 EST Called and spoke with Radiology scheduling and asked that they reach and schedule pt for Uptake and scan as soon as possible. Awaiting date and time to contact pt. Telephone Encounter - Kelly Foreman - 11/15/2019 1142 EST As for the DXA Scan Medicare only covers the bone scan once every 24 months. Gave the RN team this information to relay to the patient. elephone Encounter - Obdulio Gray MD - 11/14/2019 1907 EST I called her I think all her questions were answered and she was happy with the plan As stated before, plan agreed upon is: 1. Kelly will find out if and when she can have her DXA scan performed at [facility] [[email or web address] (reports last one donelast summer) but the validity of it is questioned given her age and risk factors. I want to make sure she will not be charged - Kelly already looked into that, I know, but couldn't find documentation 2. I explained and apologized for any misunderstanding when she talked to Laura and Lola. A possible mistake, at least regarding the last communication is that I replied to Lola with the messageI sent to Maureen on [facility]. Lola didn't call because she assumed she would have got the message and I assumed that she would get the message and Lola would call her. Next time we should call her back if that is how the conversation was initiated and I should make sure to specify that the patient should be called. - The above in regards to iodine allergy when undergoing thyroid uptake and scan. I also informed her that the LAKISHA and literature I researched specify that pretreatment is not indicated and that the procedue is safe. 3. Please one of you call radiology and coordinate scheduling her thyroid uptake and scan FAVIO 4. In the event that th DXA cannot be repeated, she agrees with treating hyperthyroidism first (verylikely to have a positive test) and doing bone turnover markers later and/or waiting for the bone density till the summer Thank you call JP documented in this encounter Plan of Treatment Not on filedocumented as of this encounter Visit Diagnoses Not on filedocumented in this encounter Care Teams Supervisor Sign Shop Relationship Specialty Start Date End Date Campos Lopes MD PCP - General 05/21/09 [address] [place] [address] documented as of this encounter
--- OUTSIDE RECORDS SUMMARY | 2022-06-18 00:26 | XMS_ITS | Encounter Summary ---
:1940 Author Organization [facility] Address [address] [place] [address] Care Team Providers Name Role Phone Campos Lopes MD Primary Care Provider Reason for Visit Reason Onset Date Comments COVID-19 11/06/2020 Encounter Details Date Type Department Care Team Description 11/06/2020 Telephone [facility] - MARILOU strauss, Alan Shea MD COVID-19 [place] [address] [address] Amandeep Ohara [address] [place] [phone] (Wo rk) Social History Tobacco [...] this encounter Miscellaneous Notes Telephone Encounter - Carlton Monte - 11/06/2020 9146 EST Spoke with patient who advised that she would like to go to [facility] for covid testing between 11/11 and 11/13 before 12:00pm for appointment on 11/18. Phys Assistant faxed order to [facility]. documented in this encounter Plan of Treatment Not on filedocumented as of this encounter Visit Diagnoses Not on filedocumented in this encounter Care Teams Sign Language Translator Relationship Specialty Start Date End Date Campos Lopes MD PCP - General 05/21/09 [address] [place] [address] documented as of this encounter
--- OUTSIDE RECORDS SUMMARY | 2022-06-18 00:26 | XMS_ITS | Encounter Summary ---
:1940 Author Organization [facility] Address [address] [place] [address] Care Team Providers Name Role Phone Campos Lopes MD Primary Care Provider Encounter Details Date Type Department Care Team Description 11/11/2020 Documentation Visit [facility] Alan Milton Gastroenterology - Main Arabella Shea [address] [phone] [facility] [address] [place] [address] Social History Tobacco Use Types [...] documented as of this encounter Progress Notes Roslyn Nunez - 11/11/2020 0956 EST Pre-op anes JAZIEL Valadez called to let GI know that pt told her on the pre-op call that no one had called her to schedule covid test. Per GI conversation with covid museum service scheduler Gisela, order was sent to [facility] per pt request, Gisela will call [facility] to make sure that they received Order. Gi called Pt and pt will Call again to see if [facility] received order and if not she will call GI back. documented in this encounter Plan of Treatment Not on filedocumented as of this encounter Visit Diagnoses Not on filedocumented in this encounter Care Teams Research Software Engineer Relationship Specialty Start Date End Date Campos Lopes MD PCP - General 05/21/09 [address] [place] [address] documented as of this encounter
--- OUTSIDE RECORDS SUMMARY | 2022-06-18 00:26 | XMS_ITS | Encounter Summary ---
:1940 Author Organization [facility] Address [address] [place] [address] Care Team Providers Name Role Phone Campos Lopes MD Primary Care Provider Reason for Visit Reason Onset Date Comments Labs Only 09/20/2019 results Encounter Details Date Type Department Care Team Description 09/20/2019 Telephone [facility] Stephen Nichols, Lab s Only (results) Endocrinology - Edgardo Nieves MD [address] [facility] [place] [address] [facility] [place], [place] [address] [place] [address] [phone] Social History Tobacco Use Types Packs/Day [...] this encounter Miscellaneous Notes Telephone Encounter - Efe Butler RN - 09/21/2019 0921 EST Calling patient 09/21/19 9:[address] Mitchell's message : Specialized test that procedure The two tests that go to [facility] Per patient, had received a call from JAZIEL Davila who had already relayed the message from the provider. Patient feels like all of this is confusing and talking to too many people. Patient wants an e-mail to be sent to Dr. Mitchell to clarify. Calling patient back 09/21/19 9:34 As for the specialized testing I discussed, I will wait to hear from our OSS regarding bone densityand Medicare. Also this specialized testing is best to be collected after hyperthyroidism is treated. Therefore better to order months down the road. 1. Bone turn over marker Patient verbalized understanding. No barriers to learning noted. Patient also reporting : Per patient need a code to have access to MyChart. Re : after roll-out, wasn't able to login. Calling IT support service 09/21/19 09:37 Spoke to : Curt Explained the situation with patient's MyChart. Provided the phone number : [phone]. Calling patient back 09/21/19 9:38 Patient informed to call [phone] so they can walk her through the process of reactivating MyChart. EFE GARCIA RN 09/21/2019 9:41 elephone Encounter - Obdulio Gray MD - 09/20/2019 1905 EST Carlos I am not sure if I routed appropriately my previous message I said that her labs that I added on are now available They indicate hyperthyroidism, no longer subclinical As I discussed with her during her visit it is in her best interest to treat this condition with either medications, iodine ablation or surgery. Iodine ablation and surgery will lead to permanent hypothyroidism. PTU is only medication since she did not do well with Tapazole. If she would like to treat with PTU I will be monitoring her liver function test a couple months after starting PTU. We can pretreat her as she requested given history of allergies. Details of that in my note as well This is regarding the iodine uptake and scan for diagnosis. The uptake and scan will help us determine the etiology of her hyperthyroidism. As for the specialized testing I discussed, I will wait to hear from our OSS regarding bone density and Medicare. Also this specialized testing is best to be collected after hyperthyroidism is treated.Therefore better to order months down the road. elephone Encounter - Lisa Carrasco - 09/20/2019 1422 EST Patient had labs drawn at her last FUR with Dr Mitchell 09-18. Wants to know results. Patient also wanted to know if Dr Mitchell has ordered 'specialized testing' for her yet. Patient stated that he had said in her last appointment this would be ordered for her. Please call her back. documented in this encounter Plan of Treatment Not on filedocumented as of this encounter Visit Diagnoses Not on filedocumented in this encounter Care Teams Transplant Surgeon Relationship Specialty Start Date End Date Campos Lopes MD PCP - General 05/21/09 [address] [place] [address] documented as of this encounter
--- OUTSIDE RECORDS SUMMARY | 2022-06-18 00:26 | XMS_ITS | Encounter Summary ---
:1940 Author Organization [facility] Address [address] [place] [address] Care Team Providers Name Role Phone Campos Lopes MD Primary Care Provider Reason for Visit Reason Onset Date Comments COVID-19 11/06/2020 Encounter Details Date Type Department Care Team Description 11/06/2020 Telephone [facility] - MARILOU strauss, Alan Shea MD COVID-19 [facility] [address] [address] Amandeep Ohara [address] [place] [address] [phone] (Wo rk) Social History Tobacco [...] this encounter Miscellaneous Notes Telephone Encounter - Gisela Lepe - 11/11/2020 0945 EST Pallavi called to check on pre-procedure COVID test scheduling - a fax was sent to [facility] on 11/06 but according to Sruthi at the facility, it was not received. Re-faxed order to Sruthi with notes to call PT as soon as possible to schedule between today and / before noon. elephone Encounter - Ros Cuellar - 11/06/2020 1306 EST Called patient to schedule COVID-19 testing. Requested a call back @[phone]. This is our 1st attempt at contacting the patient. documented in this encounter Plan of Treatment Not on filedocumented as of this encounter Visit Diagnoses Not on filedocumented in this encounter Care Teams Retail Cosmetics Sales Beauty Advisor Relationship Specialty Start Date End Date Campos Lopes MD PCP - General 05/21/09 [address] [place] [address] documented as of this encounter
--- OUTSIDE RECORDS SUMMARY | 2022-06-18 00:26 | XMS_ITS | Encounter Summary ---
:1940 Author Organization [facility] Address [address] [place] [address] Care Team Providers Name Role Phone Campos Lopes MD Primary Care Provider Reason for Visit Reason Onset Date Comments Other 12/15/2018 Encounter Details Date Type Department Care Team Description 12/15/2018 Telephone [facility] Gastro[facility] [address] [place] [address] Social History Tobacco Use Types Packs/Day Years [...] Notes Telephone Encounter - Roslyn Nunez - 12/15/2018 1210 EST Pt called - she indicated someone from our office called her today. She does not want to schedule anything here with us and to not call her anymore. documented in this encounter Plan of Treatment Not on filedocumented as of this encounter Visit Diagnoses Not on filedocumented in this encounter Care Teams Surgical Supervisor Relationship Specialty Start Date End Date Campos Lopes MD PCP - General 05/21/09 [address] [place] [address] documented as of this encounter
--- OUTSIDE RECORDS SUMMARY | 2022-06-18 00:26 | XMS_ITS | Encounter Summary ---
:1940 Author Organization [facility] Address [address] [place] [address] Care Team Providers Name Role Phone Campos Lopes MD Primary Care Provider Reason for Visit Reason Onset Date Comments Discuss Surgery 07/03/2015 Encounter Details Date Type Department Care Team Description 07/03/2015 Telephone [facility] Angel Mcleod MD Discuss Surgery Urology - [phone] [place] [address], [facility] [phone] (Wo rk) Social History Tobacco Use Types [...] Miscellaneous Notes Telephone Encounter - Ginny Soriano - 07/03/2015 9833 EDT Called patient back, can't confirm OR time until 48 hrs prior. Patient aware. elephone Encounter - Chapis, Sabina - 07/03/2015 1044 EDT Reason for Call: Discuss Surgery Summary/Symptoms: Patient calling patient benefits at [facility] to find out surgery time on 07/15. Please call. Sabina Nation 07/03/2015 10:44 documented in this encounter Plan of Treatment Not on filedocumented as of this encounter Visit Diagnoses Not on filedocumented in this encounter Care Teams Property Damage Claims Adjustor Relationship Specialty Start Date End Date Campos Lopes MD PCP - General 05/21/09 [address] [place] [address] documented as of this encounter
--- OUTSIDE RECORDS SUMMARY | 2022-06-18 00:26 | XMS_ITS | Encounter Summary ---
:1940 Author Organization [facility] Address [address] [place] [address] Care Team Providers Name Role Phone Campos Loeps MD Primary Care Provider Reason for Visit Reason Onset Date Comments Appointment Related 11/19/2019 Encounter Details Date Type Department Care Team Description 11/19/2019 Telephone [facility] Danny Blakely RN Appoi ntment Related Endocrinology - [place] [phone] Social History Tobacco Use Types Packs/Day [...] Telephone Encounter - Danny Blakely RN - 11/19/2019 5704 EST Called and spoke with pt to discuss upcoming NM uptake and scan. Pt informed me that she would be unable to have testing done at the time scheduled and would need to reschedule. Pt given number to NM scheduling and was told that she would be contacted 2 weeks prior to NM uptake and scan. documented in this encounter Plan of Treatment Not on filedocumented as of this encounter Visit Diagnoses Not on filedocumented in this encounter Care Teams Chemical Plant Manager Relationship Specialty Start Date End Date Campos Lopes MD PCP - General 05/21/09 [address] [place] [address] documented as of this encounter
--- OUTSIDE RECORDS SUMMARY | 2022-06-18 00:26 | XMS_ITS | Encounter Summary ---
:1940 Author Organization [facility] Address [address] [place] [address] Care Team Providers Name Role Phone Campos Lopes MD Primary Care Provider Reason for Visit Reason Comments Thyroid Problem Referral (Routine) - Authorization Not Required Specialty Diagnoses / Procedures Referred By Contact Refer red To Contact Endocrinology Diagnoses Hyperthyroidism Campos Lopes MD [facility] Endocrinology [address] [place] [address] [place] [address] Fax: Referral ID Status Reason Start Expiration Visits Visits Date Date Requested Authorized [id number] Authorization Not 1 1 Required Encounter Details Date Type Department Care Team Description 09/18/2019 Office Visit [facility] Nontoxic multinodular goiter (Primary Dx); Endocrinology - Obdulio Wilson Fractures involving multiple body regions [address] [facility] Lindsey Nieves MD [place], [place] [address] [address] [phone] [place] [address] Social History Tobacco Use Types [...] Sign Reading Time Taken Comments Blood Pressure 162/82 09/18/2019 1436 EST manual Pulse 101 09/18/2019 1421 EST Temperature - - Respiratory Rate - - Oxygen Saturation - - Inhaled Oxygen Concentration - - Weight - - Height 167.6 cm (5' 5.98) 09/18/2019 1421 EST Body Mass Index - - documented in [...] as of this encounter Patient Instructions Patient InstructionsObdulio Gray MD - 09/18/2019 14:20 EST Ctx AND PINP -> will call later with Instructions I will order thyroid uptake and scan with pretreatment given ? Iodine allergy You had a scan in 2009 that was consistent with Graves I can prescribe PTU for Graves, I would monitor liver function Re: osteoporosis, repeat DXA scan with TBS (at [facility]) Do 24h urine calcium locally - call us a week or so later to make sure we got the report documented in this encounter Progress Notes Enrrique Mojica - 09/18/2019 1420 EST NPatient had elevated blood pressure with machine (191/77), repeated blood pressure manually to verify. patient instructed that there was no need to inflate the cuff to 210mmHg during the reading and that it was too tight. 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 Patient was upset. Documenting per yarn preparation supervisor and . Obdulio Edmonds MD - 09/18/2019 1420 EST 09/20/2019 NEW PATIENT PATIENT: Maureen Thomas CHIEF COMPLAINT Thyroid Problem HISTORY OF PRESENT ILLNESS Maureen Thomas is a very pleasant 79 y.o. female who presents with multiple thyroid nodules HPI This patient was seen earlier in 2011 for multiple thyroid nodules and abnormal thyroid function test. She saw Dr. Navarrete. His note speaks about a history of subclinical hyperthyroidism with TSH values ranging between undetectable and less than 0.5 with normal free T4. She has a history of bilateral thyroid nodules, negative TPO antibodies as of 2009. Apparently she was given Tapazole many months before March 2012 which led to some neck pain and discomfort. During herfollow-up in March 2012 she was recommended to undergo FNA of a dominant thyroid nodule. I do not find the report of such biopsy. Of note, she had a thyroid ultrasound in August 2019 that reports findings consistent with marked diffuse goiter without dominant nodule identified. Scattered calcifications are noted. When I was discussing with her that I would recommend radioactive iodine uptake and scan given her low TSH, normal T4, T3 she told me that she was allergic to iodine though she had neverbeen given iodine contrast agents. Looking through her chart I found out that she had reactive iodine uptake and scan in 2009. Her uptake was 39%, mildly elevated, in line with the possible diagnosis of Graves' disease. However, her thyrotropin receptor antibody was negative. Recently in February 2019 her TSH is 0.01 units/mL, free T4 1.25 ng/dL There was a very challenging encounter but I am happy that it concluded well. I was warned by my staff that she was being condescending. Fortunately she did not use inappropriate language when addressing me but she called 1 of my colleagues a jerk. The first 15 minutes of our conversation were difficult because she was upset when I said I had noticed she had a CAT scan of the chest performed in 2018 for follow-up of chronic cough the CAT scan that revealed as 7 to 8 mm thyroid semisolid nodule with a central lucency. (This was not seen on thyroid ultrasound). She told me that this was not the reason why she was here, that she was not here forher thyroid, but she was here for her osteoporosis. She had a bone density scan performed in April 2019 that reports: T score -0.1 in the left hip T score -0.3 in the lumbar spine However, she tells me that she fractured her tailbone and her left hand with very minimal trauma. Her hand as she was placing it flat on a table. I did find x-rays performed in December 2015 that reportedpossible nondisplaced fracture in the head of the middle phalanx of the fifth digit versus overlapping artifact from soft tissues, please correlate with any point tenderness??? she reported a lot of tenderness also, old fracture at the base of the proximal phalanx of the fifth digit as well as diffuse osteopenia. She saw Dr. Campos Lopes for plantar fascitis, posterior tibial tendinitis, possible tenosynovitis of the thumbs. She was subsequently evaluated by rheumatology who reassured her that there was no evidence of any inflammatory arthropathy or any systemic autoimmune condition. Findingswere more compatible with OA and periarticular strain of tendons. PAST HISTORY Past Medical History: Diagnosis Date ??? Thyroid disease suppressed TSH; nml T4 and T3 No past surgical history on file. Family History Problem Relation Age of Onset ??? Glaucoma Neg Hx ??? Macular Degeneration Neg Hx Social History Tobacco Use ??? Smoking status: Former Smoker Packs/day: 1.00 Years: 32.00 Pack years: 32.00 Last attempt to quit: 08/19/1995 Years since quittin.1 ??? Smokeless tobacco: Never Used Substance Use Topics ??? Alcohol use: Yes Comment: very rare ??? Drug use: No MEDICATIONS Current Outpatient Medications Medication Sig Dispense Refill ??? albuterol (PROAIR HFA) 90 mcg/actuation inhaler Inhale 1-2 Puffs as directed every 6 hours as needed for Wheezing. Reported on 01/05/2017 ??? atenolol (TENORMIN) 50 mg tablet Take 25 mg by mouth daily . ??? ergocalciferol, vitamin D2, 2,000 unit tablet Take 2,000 Units by mouth daily. Twice weekly ??? estradiol (ESTRACE) 0.01 % (0.1 mg/g) vaginal cream Place vaginally. Per vagina 2 x weekly (Patient taking differently: Place vaginally as needed. Per vagina 2 x weekly) 1 Tube 11 ??? fluticasone-salmeterol (ADVAIR HFA) [...] Take 1 Tab by mouth daily. ??? PANTOPRAZOLE SODIUM (PROTONIX ORAL) Take by mouth daily. ??? ranitidine (ZANTAC) 150 mg tablet Take 150 mg by mouth daily. 0 ??? solifenacin (VESICARE) 10 mg tablet Take 5 mg by mouth as needed. No current facility-administered medications for this visit. ALLERGIES Allergies Allergen Reactions ??? Ciprofloxacin Other (See Comments) Ectopic heart beats ??? Dye IVP DYE ??? Elmiron [Pentosan Polysulfate Sodium] unknown ??? Epinephrine tachycardia ??? Iodine And Iodide Containing Products Hives ??? Lisinopril Other reaction(s): Unknown ??? Methimazole Other (See Comments) unknown REVIEW OF SYSTEMS ROS VITALS Vitals: 09/18/19 1421 09/18/19 1436 BP: (!) 191/77 (!) 162/82 Pulse: 101 Height: 167.6 cm (65.98) PHYSICAL EXAM Nursing note and vitals reviewed.Constitutional: She is oriented to person, place, and time. She appears well-developed and well-nourished. No distress. Eyes: Pupils are equal, round, and reactive to light. EOM are normal. Neck: Normal range of motion. Neck supple. No thyromegaly present. Cardiovascular: Normal rate. Pulmonary/Chest: Effort normal. No respiratory distress. Neurological: She is alert and oriented to person, place, and time. No cranial nerve deficit or sensory deficit. She exhibits normal muscle tone. Coordination normal. Skin: She is not diaphoretic. Psychiatric: She has a normal mood and affect. Her behavior is normal. Judgment and thought content normal. ASSESSMENT 1. Nontoxic multinodular goiter THYROPEROXIDASE ANTIBODY THYROTROPIN RECEPTOR ANTIBODY PTH INTACT PHOSPHORUS VITAMIN D (25,OH) CALCIUM, URINE 24HR COMPREHENSIVE METABOLIC PANEL (CMP) CALCIUM, URINE 24HR DXA DUAL XRAY ABSORPTIOMETRY FOR BONE DENSITY 2. Fractures involving multiple body regions I spent more than 60 minutes with this patient and the entire time was spent counseling her both regarding her normal bone density as well as her subclinical hypothyroidism and history of possible Graves' disease. 1. Regarding fractures: I explained that fractures in the tailbone and the fifth left digit do not by themselves imply that she has osteoporosis. He does not have a history of fractures in the spine, hip or even the forearm. Her bone density is normal. It is interesting that her T-scores are only -0.3despite her age and osteopenia found on x-ray. I acknowledged the mistakes are oftentimes made when interpreting DEXA scans but I do not have access to those images. She did not have bone density performed at a tertiary care center. I said she could have a repeat bone density scan but Medicare will not pay for it likely if done earlier than April 2021. it would be interesting if TBS can also be performed during this repeat bone density I will ask my staff to look into these. We can check routine osteoporosis related lab work as well as markers of bone during our but I do not think that they will be revealing. She does have a major risk factor for osteoporosis that should be addressed, diabetes the subclinical hyperthyroidism. 2. Regarding subclinical hyperthyroidism: The best next step will be radioactive iodine uptake and scan. I believe that her thyrotropin receptor antibody will be negative again but I am checking it again today. It is interesting that her TSH has remained suppressed for such a long time while her free T4 has remained normal. 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 She understands the risk of cardiovasculardisease. She was telling me that she has allergies to iodine, seafood. She had an iodine uptake and scan in 2009 but despite that she would like to undergo pretreatment with prednisone. I told her that I cannot guarantee that she will not have any allergy reaction though I thought the risk of that is low. PLAN I told patient I would check bone turnover markers and that I needed to call the lab to find out howto order them. This may not be necessary if the bone density can be repeated. She understands that Medicare may not pay for it - AT this time her CMP, vitamin D, phosphorus, PTH, thyrotropin receptor antibody, TPO antibody are all normal. ???TSH, free T4, total T3 added on. If normal, will cancel reactive iodine uptake and scan. ??? She said that she would not have iodine uptake and scan unless she was pretreated. For that I recommend methylprednisolone 32 mg by mouth 12 hours and 2 hours before contrast media injection. 1 hour before the procedure, she can be given Benadryl 50 mg p.o. Obdulio Nichols MD 09/20/2019 10:47 documented in this encounter Plan of Treatment Not on filedocumented as of this encounter Results COMPREHENSIVE METABOLIC PANEL (CMP) (09/18/2019 16:14 EST) Sodium 138 136 - 145 [facility] mEq/L [facility] Potassium 4.3 3.5 - 5.0 [facility] mEq/L [facility] Chloride 103 96 - 110 [facility] mEq/L [facility] CO2 Total 27 22 - 32 mEq/L [facility] Glucose 98 70 - 100 [facility] mg/dL [facility] BUN 21 10 - 26 mg/dL [facility] Creatinine 0.75 0.52 - 1.04 [facility] mg/dL [facility] eGFR 77Comment: eGFR >60 [facility] calculated using mL/min/1.73m2 [facility] CKD-EPI equation SERVICES for non- Americans. Multiply eGFR by 1.16 for patients. Total Protein 7.3 6.3 - 8.2 [facility] g/dL [facility] Albumin 4.6 3.4 - 4.9 [facility] g/dL [facility] Alkaline 75 38 - 126 U/L [facility] Phosphatase [facility] AST 25 15 - 46 U/L [facility] ALT 17 <35 U/L [facility] Bilirubin, Total 0.7 <1.4 mg/dL [facility] Calcium 9.8 8.5 - 10.5 [facility] mg/dL [facility] Calculated Calcium 9.3 8.5 - 10.5 [facility] mg/dL [facility] Specimen Blood - Venous blood (substance) Performing Organization Address City/State/ZIP Code Phon e Number [facility] [address] [place] [phone] SERVICES VITAMIN D (25,[place]) (09/18/2019 16:14 EST) 25OH Vitamin D 32.1 30.0 - 100.0 [facility] Comment: ng/mL [facility] Vitamin D 25,OH Interpretive Ranges: Deficiency: ??<10.0 ng/mL Insufficiency: ??10.0 - 30.0 ng/mL Sufficiency: ??30.0 - 100.0 ng/mL Toxicity: ??>100.0 ng/mL Specimen Blood - Venous blood (substance) Performing Organization Address [facility]/ZIP Code Phon e Number [facility] [address] [place] [address] SERVICES PHOSPHORUS (09/18/2019 16:14 EST) Pathologist Sig nature Phosphorus 3.9 2.5 - 4.5 mg/dL [facility] Specimen Blood - Venous blood (substance) Performing Organization Address City/[facility]/ZIP Code Phon e Number [facility] [address] [place] [address] SERVICES PTH INTACT (09/18/2019 16:14 EST) Pathologist Sig nature Intact PTH 39 19 - 88 pg/mL [facility] Specimen Blood - Venous blood (substance) Performing Organization Address [facility]/ZIP [facility] Phon e Number [facility] [address] [place] [address] SERVICES THYROTROPIN RECEPTOR ANTIBODY (09/18/2019 16:14 EST) Thyrotropin <1.00 0.00 - 1.75 [facility] Receptor Ab, S Comment: IU/L LABORATORIES ADDITIONAL INFORMATION ------ At a decision limit of 1.75 IU/L, this assay has 97% sensitivity and 99% specificity for detection of Graves' disease. In healthy individuals and in patients with thyroid disease without diagnosis of Graves' disease, the upper limit of anti-TSHR values are 1.22 IU/L and 1.58 IU/L, respectively (97.5th percentiles). Test Performed by: [facility] [address] [place] [address] Certified Technician Specialist: Wero Mariano M.D. Ph.D.; CLIA# [id number] Specimen Blood - Venous blood (substance) Performing Organization Address City/State/ZIP Code Phon e Number [facility] [address] [place] [address] THYROPEROXIDASE ANTIBODY (09/18/2019 16:14 EST) Pathologist Sig nature Thyroperoxidase Ab <28 <=60 U/mL [facility] Specimen Blood - Venous blood (substance) Performing Organization Address City/[facility]/ZIP Code Phon e Number [facility] [address] [place] [address] SERVICES documented in this encounter Visit Diagnoses Diagnosis Nontoxic multinodular goiter - Primary Fractures involving multiple body region s Closed fracture of unspecified bone documented in this encounter Historical Medications This list may reflect changes made after this encounter. Medication Sig Dispensed Refills Start Date End Date ranitidine (ZANTAC) 150 Take 150 mg by mouth 0 02/17/2021 mg tablet daily before breakfast. added in this encounter Care Teams Screening Specialist Relationship Specialty Start Date End Date Campos Lopes MD PCP - General 05/21/09 [address] [place], [place] [phone] documented as of this encounter
--- OUTSIDE RECORDS SUMMARY | 2022-06-18 00:26 | XMS_ITS | Encounter Summary ---
:[address] [facility] Address [address] [place] [address] Care Team Providers Name Role Phone Campos Lopes MD Primary Care Provider Encounter Details Date Type Department Care Team Description 10/07/2020 Lab Requisition [facility] Olge Bocanegra Ov erailda bladder Pathology & MD Laboratory Medicine - [address] [place] [address] [address] [place] [address] [place], [place] [id number] Social History Tobacco Use Types Packs/Day Years [...] Name Priority Date/Time Associated Diagnosis Comme nts ANATOMIC PATHOLOGY Today 08/20/2020 15:05 Overactive bladder Results for this - DOWNTIME EST procedure are i n the results section. documented in this encounter Results ANATOMIC PATHOLOGY - DOWNTIME (08/20/2020 15:05 EST) Final Diagnosis See scanned [facility]time [facility] Attestation Report electronically [facility] released by Juliane Pollock on 10/07/20 . SERVICES Performing Lab [facility]ORY SERVICES Scanned Images [facility]ORY SERVICES Specimen Urine - Urine specimen (specimen) Narrative This result has an attachment that is no t available. Performing Organization Address City/State/ZIP Code Phon e Number [facility] [address] [place] [address] SERVICES documented in this encounter Visit Diagnoses Diagnosis Overactive bladder Hypertonicity of bladder documented in this encounter Care Teams Research Epidemiologist Relationship Specialty Start Date End Date Campos Lopes MD PCP - General 05/21/09 [address] [place], [place] [phone] documented as of this encounter
--- OUTSIDE RECORDS SUMMARY | 2022-06-18 00:27 | XMS_ITS | Encounter Summary ---
:[address] [facility] Address [address] [place] [address] Care Team Providers Name Role Phone Campos Lopes MD Primary Care Provider Reason for Visit Reason Comments Thyroid Problem NPV Encounter Details Date Type Department Care Team Description 03/14/2012 Office Visit [facility] Brent Navarrete Nontoxic multinodular Endocrinology - [facility] MD Willie goiter (Primary Dx) [address] [facility] [address] [address] [place] [address] Social History Tobacco Use Types Packs/Day Years [...] Sign Reading Time Taken Comments Blood Pressure 156/96 03/14/2012 1028 EDT Pulse 96 03/14/2012 1028 EDT Temperature - - Respiratory Rate - - Oxygen Saturation - - Inhaled Oxygen Concentration - - Weight - - Height 167.6 cm (5' 6) 03/14/2012 1028 EDT Body Mass Index - - documented in this encounter Progress Notes Brent Navarrete MD - 03/14/2012 1052 EDT Endocrinology Initial Thyroid Evaluation 03/14/2012 SUBJECTIVE: Maureen Baez is a 72 y.o. female who I am asked to see in consultation for evaluation of Thyroid Nodule and Abnormal thyroid function tests. The patient comes in telling me that she has been told for years that she has had an overactive thyroid gland. In fact, if anything, she has been told that she had sub clinical hyperthyroidism as can be seen by a low TSH dating back to 2010, when she was seen here by one of my colleagues However, today she comes back with another issue and that is thyroid nodules. Repeat thyroid function tests as can be seen below, showed similar results in September of 2011 and in December of 2011, but an ultrasound done for the first time showed dominant nodules in the isthmus and the right lobe with several small nodules elsewhere. The patient really does not have very much in the way of specific symptomatology. She did have atrial fibrillation, many years ago, was put on atenolol for that, now is barely taking any and drinks lots of caffeinated beverages without any recurrence. The systemic review was generally positive. Maureen Baez reports the following: SYMPTOM YES or NO Excess perspiration, dry skin, hair loss No Changes in eyes (vision, prominence, double vision, puffiness) No Choking sensation, difficulty swallowing, cough, hoarseness No Heat or cold intolerance No Mood swings, depression, irritability No Diarrhea, constipation, polydefication No Enlargement of neck No Tremor, jitteriness No Fatique Yes Family planning No Menses: post-menopausal No Palpitations, tachycardia GONE Change in sleeping habits No Smoking No Weight change No The patient denies drug abuse. Family history includes no thyroid abnormalities. Prior studies/tests include U/S and TFTs. 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 Maureen has a past medical history of Thyroid disease. She has no past surgical history on file. The patient's family history is not on file. The patient reports that she quit smoking about 16 years ago. She has never used smokeless tobacco. She reports that she drinks alcohol. She reports that she does not use illicit drugs. Maureen has a current medication list which includes the following prescription(s): albuterol, fluticasone-salmeterol, ergocalciferol, estradiol, tolterodine, clobetasol, atenolol, fluticasone, pirbuterol acetate, and ibuprofen. Allergies include: Ciprofloxacin; Epinephrine; and Iodine-iodine containing ROS OBJECTIVE: Vitals: BP 156/96 Pulse 96 Ht 167.6 cm (66) BMI: There is no weight on file to calculate BMI. Physical Exam General: alert, cooperative, no distress Eyes: no lid lag, periorbital edema, stare, proptosis or exophthalamus. EOM full. and conjunctivae/corneas clear. PERRL, EOM's intact. Fundi benign Neck: supple, symmetrical, trachea midline, no thyroidectomy scar, abnormal thyroid: enlarged I feelsmall nodule in front of trachea ansd an indiscrete fillness in center of right lobe and no carotid bruit Lung: clear to auscultation bilaterally Heart: regular rate and rhythm, S1, S2 normal, no murmur, click, rub or gallop Abdomen: soft, non-tender; bowel sounds normal; no masses, no organomegaly Extremities: extremities warm, atraumatic, no cyanosis or edema positive pulses bilat Pulses: 2+ and symmetric Skin: smooth, warm and dry Neuro: reflexes normal with no hung-up relaxation phase ASA cranial nerves 2-12 intact no tremors LAB REVIEW: Results for MAUREEN BAEZ ( ) as of 03/14/2012 10:55 Ref. Range 08/19/2010 15:47 T3, Total Latest Range: 60-181 ng/dL 134 Free T4 Latest Range: 0.8-1.8 ng/dL 1.1 TSH Latest Range: 0.35-5.00 uIU/ml <0.02 (L) Thyroperoxidase Ab Latest Range: <35 IU/mL <10 THYROTROPIN RECEPTOR ANTIBODY No range found NEG ASSESSMENT: 1. Nontoxic multinodular goiter The patient still has a low TSH, but our primary concern now would be to be sure that these dominant nodules are not malignant and we have scheduled both of them to be biopsied in our FNA clinic. She has agreed to this. In addition, I have repeated her thyroid function tests, including thyroid antibodies (noting that aTPO was negative in 2009). Both lobes are rather enlarged, even though the larger nodule on the right, the left one is large as well and perhaps is an underlying autoimmune process going on. (As the T4and T3 are on the lower side of normal, I do not believe she has either toxic nodules or a toxic multinodular goiter; therefore, we would go after these nodules with biopsy as a first step.) It also should be noted that the patient had a disagreeable encounter in our offices previously during which she was very upset, wrote numerous letters and emails. I tried to avoid discussion of these issues today. I have tried to convey to her the difference between hyperthyroidism and subclinical hyperthyroidismand my own opinion is that I do not treat subclinical hyperthyroidism with normal T3 and T4, is in the case here. In addition to that, the patient was given Tapazole several months ago and on 5 mg of Tapazole had pain in her neck and I could not tolerate the drug. It was discontinued after one or two doses. I cannot explain this at all and I have told her that. I plan to see her assuming the biopsies are negativein a year to repeat her ultrasound. Thyroid Nodule. This diagnosis was discussed and reviewed with the patient including the advantages of drug therapy, radioactive iodine, surgery, thyroid replacement/suppressive therapy and further testing. I have discussed with the patient the incidence of thyroid nodules (fairly high) and the incidence of thyroid cancer (fairly low). Although the patient does not have significant risk factors for malignancy such as family history of thyroid cancer, personal history of radiation exposure, or concerning ultrasound features of the nodule(s) such as irregular borders, microcalcifications, or increased internal blood flow, I recommend US guided fine-needle aspiration biopsy based on the size of the nodule. I told the patient that the 4 cytopathologic results from FNA biopsy include 1) benign; 2) malignant; 3) inadequate sample; and 4) indeterminate. We avoid the 3rd result, hopefully, by having a cytopathologist on site for the biopsy. The patient has been given pre- biopsy instructions and will be scheduled for biopsy in our clinic. PLAN: 1. Fine Needle Aspiration of dominant thyroid nodule within a multi-nodular goiter; see separate procedure note. Labs: TSH, triiodothyronine free, thyroid autoantibodies and free thyroxine 2. Medications: None 3. The risks and benefits of my recommendations, as well as other treatment options were discussed with the patient today. Questions were answered. 4. Follow up: 1 year and as needed. Brent Navarrete MD 03/14/2012 11:20 documented in this encounter Plan of Treatment Not on filedocumented as of this encounter Results T3 FREE (03/14/2012 11:29 EDT) Pathologist Sig nature T3, Free 4.0 2.3 - 4.2 pg/mL [facility] Specimen Blood specimen (specimen) Performing Organization Address [facility]/ZIP [facility] [facility] [address] [place] [address] SERVICES [facility] [address] [place] [address] THYROPEROXIDASE ANTIBODY (03/14/2012 11:29 EDT) Pathologist Sig nature Thyroperoxidase Ab 37 <61 U/mL [facility] Specimen Blood specimen (specimen) Performing Organization Address [facility]/ZIP Code Phon e Number [facility] [address] [place] [address] SERVICES [facility] [address] [place] [address] ANTI THYROGLOBULIN (03/14/2012 11:29 EDT) Pathologist Sig nature Thyroglobulin Ab <15 <61 U/mL [facility] Specimen Blood specimen (specimen) Performing Organization Address City/[facility]/ZIP [facility] [place] [facility] [address] [place] [address] SERVICES [facility] [address] [place] [address] T4 FREE (03/14/2012 11:29 EDT) Pathologist Sig nature Free T4 1.1 0.8 - 1.8 ng/dL [facility] Specimen Blood specimen (specimen) Performing Organization Address City/[facility]/ZIP Code Phon e Number [facility] [address] [place] [address] SERVICES [facility] [address] [place] [address] (ABNORMAL) TSH (03/14/2012 11:29 EDT) Pathologist Sig nature TSH <0.02 (L) 0.35 - 5.00 uIU/ml [facility] Specimen Blood specimen (specimen) Performing Organization Address City/State/ZIP Code Phon e Number [facility] [address] [place] [address] SERVICES [facility] [address] [place] [address] documented in this encounter Visit Diagnoses Diagnosis Nontoxic multinodular goiter - Primary documented in this encounter Discontinued Medications Medication Sig Discontinue Reason Start Date End Date fluconazole (DIFLUCAN) Take 1 Tab by mouth Therapy completed 200903/14/2012 150 mg tablet once for 3 doses. metronidazole (FLAGYL) Take by mouth. As Therapy completed 03/14/2012 500 mg tablet directed documented as of this encounter Historical Medications This list may reflect changes made after this encounter. Medication Sig Dispensed Refills Start Date End Date ergocalciferol, vitamin Take 2,000 Units by 0 D2, 2,000 unit tablet mouth daily. Twice weekly fluticasone-salmeterol Inhale 2 Puffs as directed 2 times daily . 0 (ADVAIR HFA) 230-21 mcg/actuation inhaler albuterol (PROVENTIL Inhale 2 Puffs as 0 04/15/2014 HFA, VENTOLIN HFA) 90 directed daily. mcg/actuation inhaler added in this encounter Care Teams Group Reservations Coordinator Relationship Specialty Start Date End Date Campos Lopes MD PCP - General 05/21/09 [address] [place] [address] documented as of this encounter
--- OUTSIDE RECORDS SUMMARY | 2022-06-18 00:27 | XMS_ITS | Encounter Summary ---
:1940 Author Organization [facility] Address [address] [place] [address] Care Team Providers Name Role Phone Campos Lopes MD Primary Care Provider Reason for Visit Reason Onset Date Comments Cystitis 03/04/2010 started about a week ago Encounter Details Date Type Department Care Team Description 03/04/2010 Telephone [facility] Pelvic Melina Avalos Cystitis (started Medicine and AMD about a week ago) Reconstructive Surgery - [address] [place] [address] Medical Office [facility] [address] [place], [place] [id number] Social History Tobacco Use Types Packs/Day Years Used Date Never Assessed Sex Assigned at Date Recorded Not on file documented as of this encounter Miscellaneous Notes Telephone Encounter - Cathy Mehta - 03/06/2010 0929 EDT Maureen Thomas called this morning waiting to hear from you elephone Encounter - Melina Avalos - 03/04/2010 1536 EDT Can you ask her to email me? Thanks. documented in this encounter Plan of Treatment Not on filedocumented as of this encounter Visit Diagnoses Not on filedocumented in this encounter Care Teams Marketing Communications Coordinator Relationship Specialty Start Date End Date Campos Lopes MD PCP - General 05/21/09 [address] [place] [address] documented as of this encounter
--- OUTSIDE RECORDS SUMMARY | 2022-06-18 00:27 | XMS_ITS | Encounter Summary ---
:1940 Author Organization [facility] Address [address] [place] [address] Care Team Providers Name Role Phone Campos Lopes MD Primary Care Provider Reason for Visit Reason Comments New Patient Visit Encounter Details Date Type Department Care Team Description 04/17/2012 Office Visit [facility] Tye Navarro MD Nontoxic multinodular Surgical Oncology - [address] [facility] (Primary Dx) [facility] [address] [place] [address] [address], [place] [address] (Wo rk) Social History Tobacco [...] - - Height 167.6 cm (5' 6) 04/17/2012 1302 EDT Body Mass Index - - documented in this encounter Progress Notes Tye Navarro MD - 04/17/2012 1723 EDT This office note has been dictated. documented in this encounter Consult Notes Tye Navarro MD - 04/19/2012 0753 EDT DIVISION OF SURGICAL ONCOLOGY - [facility] CONSULTATION - 04/17/2012 PROBLEM: The patient is seen for evaluation of thyroid nodularity and hyperthyroidism. SUBJECTIVE: The patient is a 72-year-old woman, who states that she has had hyperthyroidism for several years. The patient states that she initially experienced irregular heartbeat, tremors, and fatigue when this was first diagnosed. She had a low TSH level, although her T3 and T4 levels were normal. T he patient was given a short course of thyroid medication, which most likely was methimazole, and was unable to tolerate it and then stopped after that. The patient states that she also was found to have a vitamin D deficiency and took vitamin D supplements, and that has helped significantly with someof her fatigue. The patient had a workup, which has included thyroid antibodies, which have all beennegative for Divya's or Graves' disease. She had a nuclear scan on two separate occasions, whichshowed homogeneous activity in both lobes of the thyroid, most recently about a [id number]-icv-[id number]-half ago.She has had a recent ultrasound, which showed multiple small nodules on both sides. It was thought th at she might need a biopsy of one of these nodules as well. PAST MEDICAL HISTORY: She has a history of asthma. She has had no previous surgeries. She also has ahistory of hypertension. MEDICATIONS: Albuterol inhaler, Advair, vitamin D, Estrace, Detrol, Temovate cream, Tenormin 50 mg aday, Flovent, Maxair inhaler, and ibuprofen. ALLERGIES: CIPRO, IODINE-CONTAINING MATERIALS, and EPINEPHRINE. HABITS: The patient is a former smoker, smoked a pack per day for 32 years, quit in 1994. Drinks occasionally. GYNECOLOGIC HISTORY: She is 3, para 1. Age at first delivery 23. She is postmenopausal. SOCIAL HISTORY: She currently is retired, , lives alone. REVIEW OF SYSTEMS: She denies fevers, chills, night sweats. Has some fatigue. No appetite change. Noeyes, ears, nose, mouth or throat problems. Denies chest pain, chest pressure, shortness of breath. Has had occasional irregular heartbeats in the past, but nothing recently. No nausea or vomiting. No GI problems. Has an overactive bladder but no other problems. No musculoskeletal, diabetes, blood clotting or bleeding problems. No history of head and neck irradiation. FAMILY HISTORY: No family history of cancer that she is aware of. OBJECTIVE: On clinical exam, the patient is a moderately obese white woman, in no acute distress. She has no scleral icterus. Palpation of the neck reveals no palpable cervical or supraclavicular lymphnodes. There are no palpable thyroid nodules. There are no carotid bruits or JVD. Lungs are clear toauscultation. Heart has a regular rate and rhythm. There is no S3, S4, or murmurs. There are no abdominal masses, no abdominal tenderness. No hepato- or splenomegaly is noted. DIAGNOSTIC DATA: Ultrasound of the neck demonstrates a multinodular thyroid gland. These nodules areall fairly benign in appearance and have a spongiform appearance. On the right side, there is a nodule measuring 1.8 cm, another one measuring 1.5 cm, and the isthmus one measuring 1.2 cm. On the left lobe, one measuring 1.3 cm. The entire thyroid has a very similar appearance consistent with a multinodular goiter. No abnormal lymph nodes are seen in either side of the neck. ASSESSMENT AND PLAN: Based on these findings, the patient's overall clinical course is consistent with a multinodular goiter with some mild hyperthyroidism. The patient is not on any treatment for thisand is relatively asymptomatic at this point and is not willing to undergo any medical treatment forthis. The likelihood of her having a malignancy in this picture I think is exceedingly low. I do notfeel that a biopsy of these nodules is necessary as it would be extremely unlikely with a multinodular gland and hyperthyroidism to have an underlying malignant component, especially given the fact that these all have a very benign appearance by ultrasound. I did discuss with the patient that for treatment of her hyperthyroidism, if she does not want to undergo medication treatment, the only good option would be surgery. I initially discussed with her that if her nuclear scans, which we did not havewhen we met, showed a solitary nodule that was overactive, then a lobectomy on that side would be potentially curative. If there was diffuse uptake, then the only option would be a total thyroidectomy,and she was not interested in that as a potential option. Radioactive iodine is a potential option as well, but she did not seem to have any interest in that. At this point, we will notify her of the finding of her nuclear scan, and she will likely at this point not opt for any additional treatment and simply observe how she is doing from a symptomatic standpoint in the future. Electronically Signed by Tye Navarro MD 04/21/2012 07:13 Tye Navarro MD - Tye Navarro MD - LW Job ID: SM Doc ID: [id number] Ext Doc ID: [id number] cc: Campos Lopes MD documented in this encounter Plan of Treatment Not on filedocumented as of this encounter Visit Diagnoses Diagnosis Nontoxic multinodular goiter - Primary documented in this encounter Care Teams Wet Pan Operator Relationship Specialty Start Date End Date Campos Lopes MD PCP - General 05/21/09 [address] [place] [address] documented as of this encounter
--- OUTSIDE RECORDS SUMMARY | 2022-06-18 00:27 | XMS_ITS | Encounter Summary ---
:1940 Author Organization Health system Address [address] [place] [address] Care Team Providers Name Role Phone Campos Lopes MD Primary Care Provider Encounter Details Date Type Department Care Team Description 08/23/2014 Results Only [facility] Bhanu Leone am, MD Services - [facility] [place] [address] [place] [address] Social History Tobacco Use Types Packs/Day Years [...] Date/Time Associated Diagnosis Comme nts SURGICAL PATHOLOGY Routine 08/23/2014 10:45 Resul ts for this EST procedure are i n the results section. documented in this encounter Results SURGICAL PATHOLOGY (08/23/2014 10:45 EST) Pathology Report: SURGICAL PATHOLOGY REPORT [facility] Reports generated via electronic interface contain shari ginal data; LABORATORY however they are lacking the format of the original re port. SERVICES Caution should be taken when reading/interpreting unfo rmatted reports. Name: ? GENA BAEZ RA ? Accession #: ? [id number] ? : ? 1940 (Age: 74) ??F ? Collect Date: ? 08/23/2014 ? Location: ? [facility] ? Receive Date: ? 014 ? Provider: ZANDRA LEONE MD Copy to: ? Final Pathologic Diagnosis: A. ENDOCERVIX/LOWER UTERINE SEGMENT, POLYP, POLYPECTOM Y: - ??Fragments of benign endometrial polyp(s) with foca l cystic atrophy. - ??No cytologic atypia. B. ENDOMETRIUM, CURETTAGE: - ??Scant superficial strips of inactive to weakly proliferative endometrium with tubal metaplasia. - ??Scant fragments of benign endocervical tissue and squamous metaplasia. Document reviewed and electronically signed by: DAYANARA HALE MD Report ??Date: 08/28/2014 10:43 By the signature above, the attending physician certif ies that he/she has personally conducted a gross and/or microscopic examin ation of the described specimens and rendered or confirmed the above diagnosi s. Specimen(s) Received: A. ?Endocervical polyp B. ?Endometrial curettings (scant tissue recovered) Clinical History: A. Might be an endometrial polyp; 2 small fragments of tissue believed to represent the stalk of the p olyp; postmenopausal bleeding; large cervical polyp on preop exam Gross Description: A. ?Received in formalin labelled with proper p atient identification (initials E, B) and endocervical polyp, might be endometrial polyp, two small fragments of tissue believed to be stalk of polyp is a pink-stuart focally red polypoid tissue (5.0 x 2.6 x 1.0 cm) as well as two pink-stuart irregular tissue fragments (0.7 x 0.5 x 0.1 c m in 2.8 x 1.0 x 0.3 cm). The margin of the polypoid piece is inked blue, this pi debbie is sectioned and entirely submitted in A1-A5 and the remaining fragments are submitted in A6. B. ?Received in formalin labelled with proper p atient identification (initials E, B) and endometrial curettings, scant tis lamont removed is an aggregate of stuart-red tissue fragments (0.6 x 0.4 x 0.2 cm). Submitted in toto in B1. Sruthi Vega 08/26/2014 08:13 AM End of Report Specimen Performing Organization Address City/State/ZIP Code Phon e Number [facility] [address] [place] [id number] SERVICES documented in this encounter Visit Diagnoses Not on filedocumented in this encounter Care Teams Sap Abap Developer Relationship Specialty Start Date End Date Campos Lopes MD PCP - General 05/21/09 [address] [place], [place] [id number] documented as of this encounter
--- OUTSIDE RECORDS SUMMARY | 2022-06-18 00:27 | XMS_ITS | Encounter Summary ---
:1940 Author Organization [facility] Address [address] [place] [address] Care Team Providers Name Role Phone Campos Lopes MD Primary Care Provider Reason for Referral Radiology Services (Routine) - Closed Specialty Diagnoses / Procedures Referred By Contact Refer red To Contact Diagnoses Dyspnea Tushar Moulton MD Procedures CT CHEST [address] [place] [address] Referral ID Status Reason Start Date Expiration Date Visits Requ ested Visits Authorized [id number] Closed 04/15/2014 1 1 Reason for Visit Reason Comments New Patient Visit Encounter Details Date Type Department Care Team Description 04/15/2014 Office Visit [facility] Dedrick Moulton MD Dyspnea (Primary Dx); Pulmonology & 133 [facility] Critical Care - [address] [facility] [place] [address] Social History Tobacco Use Types Packs/Day Years [...] Sign Reading Time Taken Comments Blood Pressure 142/74 04/15/2014 1042 EDT Pulse 75 04/15/2014 1042 EDT Temperature 36.9 ??C (98.4 ??F) 04/15/2014 1042 EDT Respiratory Rate 14 04/15/2014 1042 EDT Oxygen Saturation 97% 04/15/2014 1042 EDT Inhaled Oxygen Concentration - - Weight - - Height - - Body Mass Index - - documented in this encounter Discharge Diagnoses Diagnosis 786.09 RESPIRATORY ABNORM NEC[ICD-9-CM] 112.0 THRUSH[ICD-9-CM] documented in this encounter Ordered Prescriptions Prescription Sig Dispensed Refills Start Date End Date fluconazole (DIFLUCAN) 100 Take 1 Tab by mouth 7 Tab 0 04/15/2014 04/22/2014 mg tabletIndications: daily for 7 days. Dyspnea, Thrush fluconazole (DIFLUCAN) 50 Take 1 Tab by mouth 7 Tab 0 0 04/15/2014 04/15/2014 mg tabletIndications: daily for 7 days. Thrush documented in this encounter Progress Notes Yajaira Sahu - 04/17/2014 1622 EDT Spoke with Imaging Scheduling at [facility]. The asked me to fax 1) the order for the CtScan (after it was prior authorized),2) orders for bun/creat in case the radiologist protocols the scan with contrast. Received the lab orders from Dr Moulton and faxed them at 4:23 pm. Our prior auth person has left for the day so will check on this first thing in the morning. [facility] will contact the patient to schedule the scan. Eliza Mata - 04/15/2014 1542 EDT Due to the patient leaving the clinic without checking out, the external order for a CT Chest was mailed to patient with a letter stating that the patient can schedule the CT at her convenience at the hospital of her choice. Ginny Manuel RT - 04/15/2014 8352 EDT Pharmacy doesn't have 50 mg tablets Fluconazole available, Dr Moulton approved 100 mg daily x 7 days. Order changed in [facility]. Tushar Daniel MD - 04/15/2014 1243 EDT 04/15/2014 CONSULTATION 04/15/2014 REFERRING PROVIDER:Campos Lopes MD PATIENT: Maureen Thomas CHIEF COMPLAINT New Patient Visit HISTORY OF PRESENT ILLNESS Maureen Thomas is a very pleasant 74 y.o. female, former smoker x 32 years, who was diagnosed as having asthma at the age of 57, paroxysmal A. fib, rhinitis, hyperparathyroidism, hypercholesterolemia, positive PPD, hypertension who presents for evaluation of dyspnea on activity and to discussthe possible benefits of endobronchial thermoplasty. HPI Pt has been treated as a case of asthma for the past 17 years with a variety of inhalers including Albuterol and Advair HFA. She used to get bronchitis during the winter months but these episodes have significantly lessened after quitting smoking. She still gets SOB with incline, during humid weather and reports PND all the time. She presented to ER several times this winter with SOB and productive cough. CXR in December 2013 showed RML infiltrates for which she was started on Prednisone, empirical Levaquin. Her symptoms got better although developed bad oral thrush. A f/u CXR 2 weeks later reported as showing partial resolution of RML infiltrates. She was also started on Singulair QD which seems to help her breathing as well. Pt is worried about having another bad episode of dyspnea and wants to verify if she has pure asthma or COPD to see if she would be a candidate for bronchial thermoplasty therapy. Full PFTs done at [facility] on March 11, 2014 showed an FEV1 of 0.89 L (37% predicted), FVC 1.79 L (59% predicted), ratio of 50 (66% predicted. There is no significant change after inhaled bronchodilators. Lung volume showed total lung capacity of 3.43 L (111% predicted), residual volume 3.10 L (133% predicted). Diffusing capacity was 76% predicted. The patient did use her short- acting inhaler prior to spirometry testing on that date which may explain the lack of response to bronchodilators. Spirometry done again at [facility] on March 21, 2014 showed an FEV1 of 0.78 L (32% predicted), FVC 1.58 L (52% predicted) ratio 49 (65% predicted). Exhaled nitric oxide reports done on 2013 was reported as normal. MEDICAL HISTORY Patient has a past medical history of Thyroid disease. SURGICAL HISTORY Patient has no past surgical history on file. FAMILY HISTORY No family history of asthma and allergies. SOCIAL HISTORY Patient reports that she quit smoking about 18 years ago. She has never used smokeless tobacco. She reports that drinks alcohol. She reports that she does not use illicit drugs. MEDICATIONS Patient has a current medication list which includes the following prescription(s): albuterol, atenolol, ergocalciferol, estradiol, fluticasone- salmeterol, and ibuprofen. ALLERGIES Patient is allergic to ciprofloxacin; epinephrine; and iodine-iodine containing. REVIEW OF SYSTEMS Constitutional: Negative for fever, chills, diaphoresis and fatigue. HENT: Positive for postnasal drip. Negative for nosebleeds, congestion, rhinorrhea, sneezing and neck pain. Eyes: Negative. Cardiovascular: Negative. Gastrointestinal: Negative. Negative for nausea and vomiting. Endocrine: Negative for cold intolerance, heat intolerance and polydipsia. Genitourinary: Negative. Musculoskeletal: Positive for arthralgias. Allergic/Immunologic: Negative for environmental allergies. Neurological: Negative for dizziness, weakness, light-headedness, numbness and headaches. Hematological: Negative. VITALS Maureen's tympanic temperature is 36.9 ??C (98.4 ??F). Her blood pressure is 142/74 and her pulse is75. Her respiration is 14 and oxygen saturation is 97%. PHYSICAL EXAM Constitutional: She is oriented to person, place, and time. She appears well- developed and well-nourished. HENT: Head: Normocephalic and atraumatic. Mouth/Throat: Oropharynx is clear and moist. No oropharyngeal exudate. Eyes: Pupils are equal, round, and reactive to light. Neck: No JVD present. No tracheal deviation present. No thyromegaly present. Cardiovascular: Normal rate and normal heart sounds. Exam reveals no gallop. No murmur heard. Pulmonary/Chest: No stridor. No respiratory distress. She has no wheezes. She has no rales. Abdominal: Soft. She exhibits no distension. There is no tenderness. Musculoskeletal: She exhibits no edema and no tenderness. Neurological: She is alert and oriented to person, place, and time. No cranial nerve deficit. She exhibits normal muscle tone. Coordination normal. Skin: Skin is warm. No rash noted. No erythema. Psychiatric: She has a normal mood and affect. Her behavior is normal. DIAGNOSTIC DATA Pulmonary function studies: Pulmonary function studies done at [facility] reviewed by me. Full PFTs done at [facility] on March 11, 2014 showed an FEV1 of 0.89 L (37% predicted), FVC 1.79 L (59% predicted), ratio of 50 (66% predicted). There is no significant change after inhaled bronchodilators. Lung volume showed total lung capacity of 3.43 L (111% predicted), residual volume 3.10 L (133% predicted). Diffusing capacity was 76% predicted. The patient did use her short- acting inhaler prior to spirometry testing on that date which may explain the lack of response to bronchodilators. The results are consistent with severe airflow limitation with evidence of air trapping. Spirometry done again at [facility] on March 21, 2014 showed an FEV1 of 0.78 L (32% predicted), FVC 1.58 L (52% predicted) ratio 49 (65% predicted). Exhaled nitric oxide reports done on 2013 was reported as normal. IMAGING Chest x-rays from December and January 2014 done at [facility] with reviewed. There is questionable right with no opacification that has partially cleared. There is possible thickening of the interlobular septa and both upper and lower lobes bilaterally. ASSESSMENT Since 4-year-old lady, past medical history significant for tobacco use, hypothyroidism, paroxysmal atrial fibrillation, hypertension, hyperlipidemia who has been treated as asthma for the past 17 years. She presents for evaluation of recurrent bronchitis and possible COPD. 1. Severe airflow limitation with evidence of air trapping: Chronic. Likely COPD his medicines smoking and evidence of air trapping. The lack of reversibility post bronchodilator may be secondary to the use of short-acting bronchodilators on the same day of testing. Asthma can co-exists with COPD in some individuals (specially older age) or may progress to more chronic obstructive status in severe poorly controlled cases. I had lengthy discussion with the patient regarding her condition and results of prior workup done at [facility]. Would obtain full CT chest to verify the presence or absence of COPD changes/emphysema. It is extremely unlikely that the patient would be a candidate for endobronchial thermoplastic therapy for asthma. In the meantime, I will continue inhaled corticosteroids, long and short acting bronchodilators. Thepatient was counseled about proper precautions after using inhaled corticosteroids. We will prescribe Diflucan for recurrent oral thrush. PLAN I have discontinued Ms. Thomas's fluticasone, PIRBUTEROL ACETATE (MAXAIR AUTOHALER INHL), clobetasol, tolterodine, and albuterol. I am also having her maintain her ibuprofen, atenolol, estradiol, fluticasone-salmeterol, ergocalciferol, and albuterol. Other Orders Placed This Visit Procedures ??? CT CHEST Tushar Moulton MD documented in this encounter Plan of Treatment Scheduled Orders Name Type Priority Associated Diagnoses Order S chedule CT CHEST Imaging Routine Dyspnea Ordered: 2013 documented as of this encounter Visit Diagnoses Diagnosis Dyspnea - Primary Other dyspnea and respiratory abnormalit y Thrush Candidiasis of mouth documented in this encounter Discontinued Medications Medication Sig Discontinue Reason Start Date End Date clobetasol (TEMOVATE) Apply topically 2 times jagdish y as needed. Dispense 60 Gm tube Patient Stopped 03/17/2011 04/15/2014 0.05 % cream Taking fluticasone (FLOVENT) Inhale as directed Patient Stopped 04/15/2014 110 mcg/Actuation every 12 hours. Taking inhalerIndications: Hyperthyroidism PIRBUTEROL ACETATE Inhale as directed Patient Stopped 08/19/2010 04/15/2014 (MAXAIR AUTOHALER 2 times daily. Taking INHL)Indications: Hyperthyroidism tolterodine (DETROL LA) Take 1 Cap by Patient Stopped 03/22/2011 04/15/2014 4 mg ER capsule mouth daily. Taking albuterol (PROVENTIL Inhale 2 Puffs as Patient Stopped 04/15/2014 HFA, VENTOLIN HFA) 90 directed daily. Taking mcg/actuation inhaler fluconazole (DIFLUCAN) Take 1 Tab by Availability 04/15/2014 07/0 04/2014 50 mg tabletIndications: mouth daily for 7 Thrush days. documented as of this encounter Historical Medications This list may reflect changes made after this encounter. Medication Sig Dispensed Refills Start Date End Date albuterol (PROAIR HFA) 90 Inhale 1-2 Puffs as 0 mcg/actuation inhaler directed every 6 hours as needed for Wheezing. Reported on 01/05/2017 added in this encounter Care Teams Hide Cleaner Relationship Specialty Start Date End Date Campos Lopes MD PCP - General 05/21/09 [address] [place] [address] documented as of this encounter
--- OUTSIDE RECORDS SUMMARY | 2022-06-18 00:27 | XMS_ITS | Encounter Summary ---
:1940 Author Organization [facility] Address [address] [place] [address] Care Team Providers Name Role Phone Campos Lopes MD Primary Care Provider Reason for Visit Reason Onset Date Comments Medications Refill 03/17/2011 Encounter Details Date Type Department Care Team Description 03/17/2011 Refill [facility] Pelvic Melina Avalos, Medications Refill Medicine and Reconstructive MD Surgery - Medical Office [address] [place] [address] [phone] Social History Tobacco Use Types Packs/Day Years [...] on file documented as of this encounter Ordered Prescriptions Prescription Sig Dispensed Refills Start Date End Date clobetasol (TEMOVATE) Apply topically 2 times jagdish y as needed. Dispense 60 Gm tube 1 Tube 2 03/17/2011 04/15/2014 0.05 % cream documented in this encounter Plan of Treatment Not on filedocumented as of this encounter Visit Diagnoses Not on filedocumented in this encounter Care Teams Line Leader Relationship Specialty Start Date End Date Campos Lopes MD PCP - General 05/21/09 [address] [place] [address] documented as of this encounter
--- OUTSIDE RECORDS SUMMARY | 2022-06-18 00:27 | XMS_ITS | Encounter Summary ---
:1940 Author Organization [facility] Address [address] [place] [address] Care Team Providers Name Role Phone Campos Lopes MD Primary Care Provider Reason for Visit Reason Onset Date Comments Medications Refill 03/22/2011 Encounter Details Date Type Department Care Team Description 03/22/2011 Refill [facility] Pelvic Melina Avalos, Medications Refill Medicine and Reconstructive MD Surgery - Medical Office [address] [place] [address] [phone] Social History Tobacco Use Types Packs/Day Years [...] Sig Dispensed Refills Start Date End Date conjugated estrogens Place vaginally twice 1 Tube 11 11/1006/29/2011 0.625mg/G (PREMARIN) a week. At bed time vaginal cream for 7 days, then at bedtime twice a week estradiol (ESTRACE) 0.01 Place vaginally. Per 1 Tube 11 0 04/05/2011 04/07/2011 % (0.1 mg/g) vaginal vagina 2 x weekly cream tolterodine (DETROL LA) Take 1 Cap by mouth 30 Cap 6 04/15/2014 4 mg ER capsule daily. documented in this encounter Miscellaneous Notes Telephone Encounter - Kirti Neil RN - 04/07/2011 1436 EDT Addended by: POLO NEIL on: 04/07/2011 Modules accepted: Orders, Medications elephone Encounter - Kirti Neil RN - 04/07/2011 1429 EDT After further investigation it is noted that Estrace not covered by pts insurance that is why she had been changed to premarin which was done in November. TC msg left for pt premarin is a substitute for estrace and she should have refills on the presc. Completed in November. I advised her to call if she had questions. Telephone Encounter - Kirti Neil RN - 04/05/2011 1040 EDT Premarin discontinued. Estrace escribed. elephone Encounter - Cathy Mehta - 04/05/2011 0942 EDT Patient called last week for estrace cream and Premarin was called in, not sure what happened. Please correct this as she is out today documented in this encounter Plan of Treatment Not on filedocumented as of this encounter Visit Diagnoses Not on filedocumented in this encounter Discontinued Medications Medication Sig Discontinue Reason Start Date End Date tolterodine (DETROL Take 4 mg by mouth Reorder LA) 4 mg ER capsule daily. conjugated estrogens Place 0.63 g Error 11/26/2010 011 0.625mg/G (PREMARIN) vaginally twice a vaginal cream week. At bed time for 7 days, then at bedtime twice a week estradiol (ESTRACE) Place vaginally. Per Insurance does not 011 04/07/2011 0.01 % (0.1 mg/g) vagina 2 x weekly cover vaginal cream documented as of this encounter Care Teams Flux Tube Attendant Relationship Specialty Start Date End Date Campos Lopes MD PCP - General 05/21/09 [address] [place] [address] documented as of this encounter
--- OUTSIDE RECORDS SUMMARY | 2022-06-18 00:27 | XMS_ITS | Encounter Summary ---
:1940 Author Organization [facility] Address [address] [place] [address] Care Team Providers Name Role Phone Campos Lopes MD Primary Care Provider Reason for Visit Reason Onset Date Comments Advice Only 10/11/2014 Encounter Details Date Type Department Care Team Description 10/11/2014 Telephone [facility] Tye Navarro MD Advice Only Surgical Oncology - [facility] 111 [facility], [facility] 111 [facility], [address] [place], [place] [id number] [place] [address] [phone] (Wo rk) Social History Tobacco Use Types [...] this encounter Miscellaneous Notes Telephone Encounter - Deepti Olea Jimmy - 10/11/2014 9197 EST I spoke to Maureen and toJonathanld her it was not our policy to do a phone consults since she was last seeclose to three years ago. I said I would be happy to set her up with an appointment and we would tryto make it later in the day since she was traveling a distance. DEEPTI OLEA, RN elephone Encounter - Angela Muniz - 10/11/2014 1012 EST Pt was seen 04/17/12 and would like to possibly see judy again to discuss further having her thyroidremoved but would like to speak w/ him over the phone before setting up an appt as lives 2 hrs away documented in this encounter Plan of Treatment Not on filedocumented as of this encounter Visit Diagnoses Not on filedocumented in this encounter Care Teams Dice Maker Relationship Specialty Start Date End Date Campos Lopes MD PCP - General 05/21/09 [address] [place] [address] documented as of this encounter
--- OUTSIDE RECORDS SUMMARY | 2022-06-18 00:27 | XMS_ITS | Encounter Summary ---
:1940 Author Organization [facility] Address [address] [place] [address] Care Team Providers Name Role Phone Campos Lopes MD Primary Care Provider Reason for Visit Reason Onset Date Comments Prior Auth, Other (i.e. radiology, etc.) 04/18/2014 Encounter Details Date Type Department Care Team Description [facility]/18[facility]2014 [facility], Other Pulmonology & Critical 133 [facility] (i.e. radiology, etc.) [facility] [place] [address] [address] [facility] [place] [address] [phone] Social History Tobacco Use Types Packs/Day Years [...] this encounter Miscellaneous Notes Telephone Encounter - Eliza Amor - 04/18/2014 0851 EDT Spoke to [facility] Radiology, they have received the orders for the CT chest and the Lab orders. They will be contacting the patient directly to schedule the CT. Telephone Encounter - Joanne Chery - 04/18/[address] does not require prior auth with either carrier. documented in this encounter Plan of Treatment Not on filedocumented as of this encounter Visit Diagnoses Not on filedocumented in this encounter Care Teams Blanking Machine Operator Relationship Specialty Start Date End Date Campos Lopes MD PCP - General 05/21/09 [address] [place] [address] documented as of this encounter
--- OUTSIDE RECORDS SUMMARY | 2022-06-18 00:27 | XMS_ITS | Encounter Summary ---
:1940 Author Organization [facility] Address [address] [place] [address] Care Team Providers Name Role Phone Campos Lopes MD Primary Care Provider Encounter Details Date Type Department Care Team Description 03/31/2012 Results Only [facility] Tye Navarro MD Imaging Surgical Oncology - [address] [facility] [address], [address] [place] [address] [place], [place] [phone] (Wo rk) Social History Tobacco Use Types [...] on filedocumented in this encounter Care Teams Sales Operations Analyst Relationship Specialty Start Date End Date Campos Lpoes MD PCP - General 05/21/09 [address] [place] [address] documented as of this encounter
--- OUTSIDE RECORDS SUMMARY | 2022-06-18 00:27 | XMS_ITS | Encounter Summary ---
:1940 Author Organization [facility] Address [address] [place] [address] Care Team Providers Name Role Phone Campos Lopes MD Primary Care Provider Reason for Visit Reason Onset Date Comments Appointment Related 03/14/2015 Encounter Details Date Type Department Care Team Description 03/14/2015 Telephone [facility] Tye Navarro MD Appointment Related Surgical Oncology - [address] [place] [address], [address], [address] [place] [address] [place], [place] [phone] (Wo rk) Social History Tobacco Use [...] this encounter Miscellaneous Notes Telephone Encounter - Wanda Frazier - 03/14/2015 3879 EDT Left message on machine to have patient call back to reschedule. elephone Encounter - Brandi Lazo - 03/14/2015 1217 EDT Pt will need to reschedule the 03/14/15 appt. documented in this encounter Plan of Treatment Not on filedocumented as of this encounter Visit Diagnoses Not on filedocumented in this encounter Care Teams Manager Cargo Relationship Specialty Start Date End Date Campos Lopes MD PCP - General 05/21/09 [address] [place] [address] documented as of this encounter
--- OUTSIDE RECORDS SUMMARY | 2022-06-18 00:27 | XMS_ITS | Encounter Summary ---
:1940 Author Organization [facility] Address [address] [place] [address] Care Team Providers Name Role Phone Campos Lopes MD Primary Care Provider Encounter Details Date Type Department Care Team Description 06/07/2010 Results Only [facility] Pat Mata MD Laboratory Services - [address] [place] [address] [place] [address] Social History Tobacco Use Types Packs/Day Years Used Date Never Assessed Sex Assigned at Date Recorded Not on file documented as of this encounter Plan of Treatment Not on filedocumented as of this encounter Procedures Procedure Name Priority Date/Time Associated Comments Diagnosis HPV DETECTION, HIGH Routine 06/07/2010 10:11 Resu lts for this RISK TYPES EDT procedure are i n the results section. CYTOPATHOLOGY Routine 06/07/2010 0:00 Results for this EDT procedure are i n the results section. documented in this encounter Results HUMAN PAPILLOMA VIRUS DNA TEST (06/07/2010 10:11 EDT) Specimen Description Cervix, ThinPrep [facility] vial LAB Result Positive for one or more of HPV types 16,18,31,33,35,39,45,51,52,56,58,59, or 68. These KRAUSE Sharan BEAULIEUEN high/intermediate risk HPV t ypes are associated with dysplasia and some cervical cancers. LAB Report Status Final [facility] 06/17/2010 LAB Specimen Performing Organization Address City/State/ZIP Code Phon e Number [facility] [address] [place] [address] SERVICES [facility] [address] [place] [address] CYTOPATHOLOGY (06/07/2010 0:00 EDT) Pathology Report: CYTOPATHOLOGY REPORT ? NELIDA MONTEMAYOR ? LAB Reports generated via electr Glamorous [employer] interface contain original data; ? however they are lacking the format of the original report. ? Caution should be taken when reading/interpreting unformatted reports. ? Name: ? GENA BAEZ RA ? Accession #: ? [id number] ? : ? 1940 (Age: 70) ??F ?Collect Date: ? 06/07/2010 ? Location: ? [facility] ? Receive Date: ? 06/09/2010 ? Provider: ?PAT ADRY L MD ? Copy to: ? Specimen/Source: ? Pap Test, Cervix/Endocervix, ThinPrep Imaging System ? with manual evaluation ? Last Menstrual Period: ? 10 yrs + - 1 ? Other: ? HPVDX - HPV testing requeste d regardless of diagnosis on current ThinPrep Pap ?? test. ? SPECIMEN ADEQUACY ? Satisfactory for Eval uation ? - transformation zone compon ent present ? GENERAL CATEGORIZATION ? Negative for Intraepi thelial Lesion or Malignancy ? INTERPRETATION ? Reactive cellular earl nges associated with inflammation present (includes ?? repair). ? Document reviewed and electr onically signed by: ? Juaquin Reeder MD ? Report Date: ??09// 2009 14:35 ? End of Report ? Specimen Performing Organization Address City/State/ZIP Code Phon e Number [facility] [address] [place] [address] SERVICES [facility] [address] [place] [address] documented in this encounter Visit Diagnoses Not on filedocumented in this encounter Care Teams Hobber Relationship Specialty Start Date End Date Campos Lopes MD PCP - General 05/21/09 [address] [place] [address] documented as of this encounter
--- OUTSIDE RECORDS SUMMARY | 2022-06-18 00:27 | XMS_ITS | Encounter Summary ---
:1940 Author Organization [facility] Address [address] [place] [address] Care Team Providers Name Role Phone Campos Lopes MD Primary Care Provider Encounter Details Date Type Department Care Team Description 04/25/2012 Documentation Visit [facility] Graham Navarro MD Surgical Oncology - [address] [place] [address], [address] [place], [place] [address] [place] [address] [phone] (Wo rk) Social History Tobacco Use [...] on file documented as of this encounter Progress Notes Tye Navarro MD - 04/26/2012 1104 EDT DIVISION OF SURGICAL ONCOLOGY - [facility] April 25, 2012 Campos Lopes MD [facility] [address] [place] [address] Lopes: This is in regards to Maureen Thomas. As per my previous note, Ms Thomas has a multinodular thyroid gland with some mild hyperthyroidism. We did review the results of her nuclear medicine scans which were done in 08/2010. It appears that she has diffuse involvement of the thyroid gland with no specific nodule as the cause of her increased thyroid activity. It was thought that this might be consistent with Grave's disease; however, her blood work has not been compatible with that. Her overall evaluation with ultrasound and this nuclear scan indicates that she likely has a multinodular goiter with mild hyperthyroidism related to that. In that regard, the only reasonable option for treatment if she wanted to would be to do a total or near total thyroidectomy. As the patient is minimally symptomatic at this point, she does not seem to be willing to want to go through that. It is possible that radioactive iodine may have an effect; however, this is not as effective for multinodular goiter. In regards to the nodule, these have a fairly typical benign appearance and doing needle biopsy I do not think is necessarily indicated as long as she continues to follow for this on a regular basis. We are therefore planning to have her return for a followup check in approximately one year. Thank you for allowing us to participate in her care. Sincerely, Electronically Signed by Tye Navarro MD 04/27/2012 13:10 Tye Navarro MD - Tye Navarro MD - Job ID: SM Doc ID: [id number] Ext Doc ID: [id number] cc: Campos Lopes MD documented in this encounter Plan of Treatment Not on filedocumented as of this encounter Visit Diagnoses Not on filedocumented in this encounter Care Teams Electrician Yard Relationship Specialty Start Date End Date Campos Lopes MD PCP - General 05/21/09 [address] [place] [address] documented as of this encounter
--- OUTSIDE RECORDS SUMMARY | 2022-06-18 00:27 | XMS_ITS | Encounter Summary ---
:1940 Author Organization [facility] Address [address] [place] [address] Care Team Providers Name Role Phone Campos Lopes MD Primary Care Provider Reason for Visit Reason Comments Discuss Surgery Encounter Details Date Type Department Care Team Description 02/05/2015 Office Visit [facility] Angel Mcleod Urgency of urination Urology - Mark Glover MD (Primary Dx) [address] [phone] [facility] [address] [place] [address] (Wo rk) Social History Tobacco [...] as of this encounter Discharge Diagnoses Diagnosis 788.63 URGENCY OF URINATION[ICD-9-CM] documented in this encounter Discharge Disposition Disposition Code Departure Means Destination Auto Discharge documented in this encounter Progress Notes Angel Mcleod MD - 02/05/2015 1149 EDT Chief Complaint: Chief Complaint Patient presents with ??? Discuss Surgery HPI: Maureen is a 75 y.o. female with about a 10 year history of intermittent urinary urgency and frequency without UTI. She has had some relief with pyridium but no improvement with anticholinergic medications. She was voiding every hour during the day and night since September (when she drank more alcohol and caffeine than usual) except for the last few days with a lot of ibuprofen use. She does nothave pain when holding her urine, but does have urgency. She has had severe urethral pain with catheterization. She notes exacerbation from acidic foods. She had a negative voided cytology in 2012. Medications Current outpatient prescriptions:albuterol (PROAIR HFA) 90 mcg/actuation inhaler, Inhale 1-2 Puffs as directed every 6 hours as needed for Wheezing., Disp: , Rfl: ; atenolol (TENORMIN) 50 mg tablet, Take 25 mg by mouth daily . , Disp: , Rfl: ; ergocalciferol (DRISDOL; VITAMIN D2) 50,000 unit capsule, Take 50,000 Units by mouth. Twice weekly , Disp: , Rfl: estradiol (ESTRACE) 0.01 % (0.1 mg/g) vaginal cream, Place vaginally. Per vagina 2 x weekly, Disp: 1Tube, Rfl: 11; fluticasone-salmeterol (ADVAIR HFA) 230-21 mcg/actuation inhaler, Inhale 2 Puffs as directed 2 times daily . , Disp: , Rfl: ; ibuprofen (MOTRIN) 200 mg tablet, Take 4 Tabs by mouth every8 hours as needed for Pain., Disp: , Rfl: ; mirabegron 25 mg tablet extended release 24 hr, Take 25 mg by mouth daily, Disp: 30 Tab, Rfl: 11 tiotropium (SPIRIVA WITH HANDIHALER) 18 mcg inhalation capsule, Inhale 18 mcg as directed daily, Disp: , Rfl: ; TOLTERODINE TARTRATE (DETROL ORAL), Take by mouth, Disp: , Rfl: Allergies Allergies Allergen Reactions ??? Ciprofloxacin Other (See Comments) Ectopic heart beats ??? Epinephrine tachycardia ??? Iodine And Iodide Containing Products Hives Objective/Physical Exam: Vital Signs: There were no vitals taken for this visit. Exam: Constitutional: Alert, in no distress. Respiratory: Respirations unlabored. Skin: Skin warm and dry. Psych: Mood and affect appropriate Impression: 75 year old woman with a long history of urinary urgency and frequency with a recent exacerbation that seems to be improving with ibuprofen. I recommended that she avoid a prolonged course of ibuprofen given her history of peptic ulcer disease. We discussed hydrodistention under anesthesiaand given her recent improvement in symptoms, agreed to hold off for now. Plan: She may contact me as needed should she develop another flare up of urinary symptoms to schedule hydrodistention under anesthesia. Angel Mcleod MD documented in this encounter Plan of Treatment Not on filedocumented as of this encounter Visit Diagnoses Diagnosis Urgency of urination - Primary documented in this encounter Historical Medications This list may reflect changes made after this encounter. Medication Sig Dispensed Refills Start Date End Date TOLTERODINE TARTRATE Take by mouth. 0 07/11/2017 (DETROL ORAL) Reported on 01/05/2017 added in this encounter Care Teams Model Artists' Relationship Specialty Start Date End Date Campos Lopes MD PCP - General 05/21/09 [address] [place] [address] documented as of this encounter
--- OUTSIDE RECORDS SUMMARY | 2022-06-18 00:27 | XMS_ITS | Encounter Summary ---
:1940 Author Organization [facility] Address [address] [place] [address] Care Team Providers Name Role Phone Campos Lopes MD Primary Care Provider Encounter Details Date Type Department Care Team Description 09/03/2009 Hospital Encounter [facility] [address] [place] [address] [place] [address] [place] [address] (Wo rk) Social History Tobacco Use Types Packs/Day Years Used Date Never Assessed Sex Assigned at Date Recorded Not on file documented as of this encounter Discharge Disposition Disposition Code Departure Means Destination Home or Self Half-Way documented in this encounter Plan of Treatment Not on filedocumented as of this encounter Procedures Procedure Name Priority Date/Time Associated Comments Diagnosis ZZVAGINITIS EXAM Routine 11/05/2009 16:23 Results for this EST procedure are i n the results section. UREAPLASMA PCR Routine 11/05/2009 16:21 Results f or this EST procedure are i n the results section. MYCOPLASMA HOMINIS Routine 11/05/2009 16:21 Resul ts for this PCR-TEMP UNAVALABLE EST procedur e are in the results section. CHLAMYDIA/N. Routine 11/05/2009 16:20 Results for this GONORRHOEAE AMPLIFIED EST proced ure are in RNA the results section. HEPATITIS B CORE Routine 11/05/2009 16:06 Results for this ANTIBODY, IGM EST procedure are in (ANTI-HBC, IGM), SERUM the r esults section. SYPHILIS SEROLOGY Routine 11/05/2009 16:06 Result s for this EST procedure are i n the results section. HEPATITIS C AB W Routine 11/05/2009 16:06 Results for this REFLEX TO HCV RNA BY EST procedu re are in PCR the results section. HEP BE AG + AB Routine 11/05/2009 16:06 Results f or this EST procedure are i n the results section. HSV 1 AND 2 ANTIBODY, Routine 11/05/2009 16:06 Re sults for this IGG EST procedure are i n the results section. HEPATITIS B CORE Routine 11/05/2009 16:06 Results for this ANTIBODY (TOTAL) EST procedure a re in the results section. HERPES 1/2 IGM Routine 11/05/2009 16:06 Results f or this ANTIBODY EST procedure are i n the results section. HEPATITIS B SURFACE Routine 11/05/2009 16:06 Resu lts for this ANTIBODY EST procedure are i n the results section. HEPATITIS B SURFACE Routine 11/05/2009 16:06 Resu lts for this ANTIGEN EST procedure are i n the results section. HIV 1/2 ANTIGEN AND Routine 11/05/2009 16:06 Resu lts for this ANTIBODY, 4TH EST procedure are in GENERATION the results section. CYTOPATHOLOGY Routine 11/05/2009 0:00 Results for this EST procedure are i n the results section. BACTERIAL CULTURE, Routine 09/29/2009 14:34 Resul ts for this URINE EST procedure are i n the results section. documented in this encounter Results VAGINITIS EXAM (11/05/2009 16:23 EST) Specimen Description Vagina [facility] Gram Smear Result No yeast or clue [facility] cells seen. LAB Result No Trichomonas [facility] antigen detected. LAB Report Status Final [facility] 11/05/2009 LAB Specimen Other (qualifier value) Performing Organization Address City/State/ZIP Code Phon e Number [facility] [address] [place] [address] SERVICES [facility] [address] [place] [address] CULTURE, UREAPLASMA UREALYTICUM (11/05/2009 16:21 EST) Specimen Description Vagina [facility] Result [facility] UREAPLASMA UREALYTICUM DETEC ANIA ? LAB Report Status [facility] FINAL [id number] ? LAB Performed or Referred by: [facility] D[facility], [address] , [place] [address], Lab Dir: Mike Aguirre III, ? MD ? Specimen Other (qualifier value) Performing Organization Address City/State/ZIP Code Phon e Number [facility] [address] [place] [address] SERVICES [facility] [address] [place] [address] CULTURE, MYCOPLASMA HOMINIS (11/05/2009 16:21 EST) Specimen Description Vagina [facility] Result [facility] No growth after 5 days ? Report Status [facility] FINAL [id number] ? Performed or Referred by: [facility] Dpt of Lab Med and Path, [address], [place] [address], Lab Dir: Mike Aguirre III, ? MD ? Specimen Other (qualifier value) Performing Organization Address City/State/ZIP Code Phon e Number [facility] [address] [place] [address] SERVICES [facility] [address] [place] [address] CHLAMYDIA/GC AMPLIFIED (11/05/2009 16:20 EST) Pathologist [facility] Specimen Cervix [facility] Description LAB Result No Chlamydia [facility] trachomatis DNA LAB detected by hr administrator mediated amplification. Result No Neisseria [facility] gonorrhoeae DNA LAB detected by hr administrator mediated amplification. Specimen Other (qualifier value) Performing Organization Address City/[facility]/ZIP Code Phon e Number [facility] [address] [place] [address] SERVICES [facility] [address] [place] [address] HSV 1 AND 2 ANTIBODY, IGG (11/05/2009 16:06 EST) Pathologist [facility] HSV 1 Ab, IgG Negative [facility] Reference range: Negative HSV2 IgG Ab Negative [facility] Reference range: Negative Performed by: [facility] Dpt Lab Med and Path [address], [address] ?? [place] [address], Lab Dir: ??Mike brunner III, M.D. Specimen Blood specimen (specimen) Performing Organization Address City/[facility]/ZIP Code Phon e Number [facility] [address] [place] [address] SERVICES [facility] [address] [place] [address] HERPES 1/2 IGM ANTIBODY (11/05/2009 16:06 EST) Pathologist [facility] HSV 1 IgM, IFA <1:20 [facility] HSV 2 IgM, IFA <1:20 [facility] REFERENCE RANGE: ??<1:20 ? INTERPRETIVE CRITERIA: ?< 1:20 ??Antibody Not Detected ?> or = 1:2 0 ??Antibody Detected ? The IFA procedure for measur ing IgM antibodies to ? HSV 1 and HSV 2 detects both type-common and type- ? specific HSV antibodies. ??T hus, elevated titers to ? both HSV 1 and HSV 2 may rep resent crossreactive ? HSV antibodies rather than e xposure to both HSV 1 ? and HSV 2. ? Test Performed by: [facility] ? [address] ? [place] [address] ? Senior Java Software Developer, Sorin Lees MD ? Specimen Blood specimen (specimen) Performing Organization Address City/[facility]/ZIP Code Phon e Number [facility] [address] [place] [address] SERVICES [facility] [address] [place] [address] HEPATITIS C ANTIBODY (11/05/2009 16:06 EST) Pathologist [facility] nature Hepatitis C Ab Negative [facility] Reference Range: ??Negative Specimen Blood specimen (specimen) Performing Organization Address [facility]/ZIP [facility] Phon e Number [facility] [address] [place] [address] SERVICES [facility] [address] [place] [address] HEPATITIS BE ANTIGEN AND ANTIBODY (11/05/2009 16:06 EST) Hepatitis Be None detected [facility] Antigen Reference range: None Detected LAB Hepatitis Be None detected [facility] Antibody Reference range: None Detected LAB Performed by: [facility] [employer] [place] [facility], [address] [place] [place] [address], Gun Striper: Ivett Bryan, Ph.D. Specimen Blood specimen (specimen) Performing Organization Address [facility]/ZIP [facility] Phon e Number [facility] [address] [place] [address] SERVICES [facility] [address] [place] [address] HEPATITIS B CORE ANTIBODY, IGM (ANTI-HBC, IGM), SERUM (11/05/2009 16:06 EST) Pathologist [facility] Hepatitis B Core Negative [facility] IgM Antibody Reference range: Negative LAB Performed by: [employer] [place] [facility], [address], ?? [place] [address], Gun Striper: Ivett Bryan, Ph.D. Specimen Blood specimen (specimen) Performing Organization Address City/[facility]/ZIP [facility] Phon e Number [facility] [address] [place] [address] SERVICES [facility] [address] [place] [address] HEPATITIS B CORE ANTIBODY (11/05/2009 16:06 EST) Pathologist [facility] Hep B Core Ab Negative [facility] Reference Range: ??Negative Interpretation depends on clinical setting. Specimen Blood specimen (specimen) Performing Organization Address City/[facility]/ZIP [facility] Phon e Number [facility] [address] [place] [address] SERVICES [facility] [address] [place] [address] HEPATITIS B SURFACE ANTIGEN (11/05/2009 16:06 EST) Hepatitis B Surface Negative [facility] Ag Reference Range: ??Negative Specimen Blood specimen (specimen) Performing Organization Address [facility] Phon e Number [facility] [address] [place] [address] SERVICES [facility] [address] [place] [address] HEPATITIS B SURFACE ANTIBODY (11/05/2009 16:06 EST) Hepatitis B Positive [facility] Surface Ab Reference Range: ??Negative LAB Interpretation depends on clinical setting. Specimen Blood specimen (specimen) Performing Organization Address [facility] Phon e Number [facility] [address] [place] [address] SERVICES [facility] [address] [place] [address] SYPHILIS SEROLOGY (11/05/2009 16:06 EST) Syphilis Serology Interpretation: Nonreactive [facility] Reference Range: Nonreactive Specimen Blood specimen (specimen) Performing Organization Address [facility] Phon e Number [facility] [address] [place] [address] SERVICES [facility] [address] [place] [address] HIV ANTIBODY (COLE) (11/05/2009 16:06 EST) HIV 1/2 Antibody Negative [facility] Reference Range: ??Negative Specimen Blood specimen (specimen) Performing Organization Address [facility] Phon e Number [facility] [address] [place] [address] SERVICES [facility] [address] [place] [address] CYTOPATHOLOGY (11/05/2009 0:00 EST) Pathology Report: CYTOPATHOLOGY REPORT ? [facility] ? LAB Reports generated via electr onic interface contain original data; ? however they are lacking the format of the original report. ? Caution should be taken when reading/interpreting unformatted reports. ? Name: ? GENA BAEZ RA ? Accession #: ? [id number] ? : ? 1940 (Age: 69) ??F ?Collect Date: ? 11/05/2009 ? Location: ? [facility] ? Receive Date: ? 11/06/2009 ? Provider: ?MAYELIN TYLER MD ? Copy to: ? Specimen/Source: ? Pap Test, Cervix/Endocervix, ThinPrep Imaging System ? with manual evaluation ? Last Menstrual Period: ? Hormonal/Contraceptive Statu s: ? Yes: Estrace vaginal cream ? Other: ? HPVA - HPV testing requested if ASC-US on the current ThinPrep Pap test. ? SPECIMEN ADEQUACY ? Satisfactory for Eval uation ? - transformation zone compon ent present ? GENERAL CATEGORIZATION ? Negative for Intraepi thelial Lesion or Malignancy ? Document reviewed and electr onically signed by: ? Mikayla Verville,CT(ASCP) ? Report Date: ??01/29/ 2010 08:14 ? End of Report ? Specimen Performing Organization Address City/[facility] Code Phon e Number [facility] [address] [place] [address] SERVICES [facility] [address] [place] [address] BACTERIAL CULTURE, URINE (09/29/2009 14:34 EST) Specimen Description Urine [facility] Result Less than 10,000 CFU/ml [facility] B Gram positive organism Report Status Final [facility] 09/30/2009 Specimen Urine (substance) Performing Organization Address City/[facility] Phon e Number [facility] [address] [place] [address] SERVICES [facility] [address] [place] [address] documented in this encounter Visit Diagnoses Not on filedocumented in this encounter Care Teams Stock Receiver Relationship Specialty Start Date End Date Campos Lopes MD PCP - General 05/21/09 [address] [place], [place] [id number] documented as of this encounter
--- OUTSIDE RECORDS SUMMARY | 2022-06-18 00:27 | XMS_ITS | Encounter Summary ---
:1940 Author Organization [facility] Address [address] [place] [address] Care Team Providers Name Role Phone Campos Lopes MD Primary Care Provider Encounter Details Date Type Department Care Team Description 04/17/2014 Orders Only [facility], Dyspnea ( Primary Dx) Pulmonology & Critical [facility] - [facility] [place] [address] [place] [address] Social History Tobacco Use Types Packs/Day Years [...] Primary Other dyspnea and respiratory abnormalit y documented in this encounter Care Teams Pulley Maintainer Relationship Specialty Start Date End Date Campos Lopes MD PCP - General 05/21/09 [address] [place], [place] [id number] documented as of this encounter
--- OUTSIDE RECORDS SUMMARY | 2022-06-18 00:27 | XMS_ITS | Encounter Summary ---
:1940 Author Organization [facility] Address [address] [place] [address] Care Team Providers Name Role Phone Campos Lopes MD Primary Care Provider Reason for Visit Reason Onset Date Comments Prior Auth, Medication 06/25/2011 Encounter Details Date Type Department Care Team Description 06/25/2011 Telephone [facility] Pelvic Melina Avalos Medication Medicine and AMD Reconstructive Surgery - [address] [place] [address] Medical Office [facility] [address] [place] [phone] Social History Tobacco Use Types Packs/Day Years [...] this encounter Miscellaneous Notes Telephone Encounter - Claudia Haq RN - 06/25/2011 7299 EDT Images from the original note were not included. Melina, If you wish to pursue this, you will need to write a letter of medical necessity for Maureen. Pleaselet us know when you have completed and nursing will submit it for you. Thanks. Claudia Haq R.N.,C.U.R.N. Nurse Clinician [facility] phone: fax: e-mail: [email or web address] From: Maureen Thomas [[email or web address]] Sent: Saturday, June 25, 2011 2:03 PM To: Claudia Haq Subject: Re: Hi Melina. hope all is well. I have a problem however. Last time I tried to renew hi Claudia, it is my understanding that if a doctor requests this med as something for which no substitue works that the insurance company is required to provide same. I know that the insurance will not approve this without a doctor's request. No I am not interested in tablets, it is the cream that is required. Would you please pass this email on to Melina so that I can get what is needed. Thank you. Maureen Thomas elephone Encounter - Claudia Haq RN - 06/25/2011 1357 EDT Maureen, I contacted you insurance carrier and they have denied approval for Estrace Vaginal cream however they are able to give approval for Vagifem Vaginal tablets. Please let me know if this is something youare interested in trialing and I can escribe it to your pharmacy. Claudia Haq R.N.,C.U.R.N. Nurse Clinician [facility] phone: fax: e-mail: [email or web address] -----Original Message----- From: Melina Avalos Sent: June 2:19 PM To: Claudia Haq Subject: FW: Hi Melina. hope all is well. I have a problem however. Last time I tried to renew Claudia, can you get Estrace renewed for Maureen? Thx Melina Avalos. From: Maureen Thomas [@[email or web address]] Sent: June 12:19 PM To: Melina Avalos Subject: Mark Summers. hope all is well. I have a problem however. Last time I tried to renew Estrace I was told that insurance wouldnt cover it. But it has always required M.D. approval to makean exception. Your office/you ordered premarin, which burger every time I use it. What can be done. Burning defeats the purpose of using this medication. thanks, Maureen Thomas elephone Encounter - Cathy Mehta - 06/25/2011 1120 EDT Insurance needs prior auth. For Estrmehreen, Maureen can not use Premarin becuase it burger her. If you need any more info you can call Maureen documented in this encounter Plan of Treatment Not on filedocumented as of this encounter Visit Diagnoses Not on filedocumented in this encounter Care Teams Shaper Machine Hand Relationship Specialty Start Date End Date Campos Lopes MD PCP - General 05/21/09 [address] [place] [address] documented as of this encounter
--- OUTSIDE RECORDS SUMMARY | 2022-06-18 00:27 | XMS_ITS | Encounter Summary ---
:1940 Author Organization [facility] Address [address] [place] [address] Care Team Providers Name Role Phone Campos Lopes MD Primary Care Provider Reason for Visit Reason Onset Date Comments New Patient Visit 02/13/2013 Encounter Details Date Type Department Care Team Description 02/13/2013 Telephone [facility] Jose Carlos Reyes, New Patient Visit Urology - Mark wyatt MD 111 [facility] [address] [phone] [facility] 5 [place] [phone] (Wo rk) Social History Tobacco Use Types [...] this encounter Miscellaneous Notes Telephone Encounter - Linsey Grant - 02/14/2013 1122 EDT Called pt left message that dr. Alan Orozco could see for this issue or Uro urogynecology physician .Telephone number given elephone Encounter - Jaye Warner V. - 02/13/2013 1618 EDT Pt would like to see Dr. Reyes. Pt never been diagnosed with anything but thinks she has interstitial cystitis. documented in this encounter Plan of Treatment Not on filedocumented as of this encounter Visit Diagnoses Not on filedocumented in this encounter Care Teams Python Engineer Relationship Specialty Start Date End Date Campos Lopes MD PCP - General 05/21/09 [address] [place] [address] documented as of this encounter
--- OUTSIDE RECORDS SUMMARY | 2022-06-18 00:27 | XMS_ITS | Encounter Summary ---
:1940 Author Organization [facility] Address [address] [place] [address] Care Team Providers Name Role Phone Campos Lopes MD Primary Care Provider Encounter Details Date Type Department Care Team Description 04/29/2010 Orders Only [facility] Pelvic Rashaad, Ur inary frequency Medicine and JAZIEL Banegas (Primary Dx) Reconstructive Surgery - Medical Office [facility] [address] [place] [address] Social History Tobacco Use Types Packs/Day Years Used Date Never Assessed Sex Assigned at Date Recorded Not on file documented as of this encounter Ordered Prescriptions Prescription Sig Dispensed Refills Start Date End Date Nitrofurantoin 50 mg Cap Take 50 mg by mouth 30 Tab 11 08/19/2010 daily. documented in this encounter Plan of Treatment Not on filedocumented as of this encounter Visit Diagnoses Diagnosis Urinary frequency - Primary documented in this encounter Discontinued Medications Medication Sig Discontinue Reason Start Date End Date trimethoprim (TRIMPEX) Take 100 mg by Patient Stopped Taking 04/29/2010 100 mg tablet mouth daily. documented as of this encounter Care Teams Software Intern Relationship Specialty Start Date End Date Campos Lopes MD PCP - General 05/21/09 [address] [place], [place] [phone] documented as of this encounter
--- OUTSIDE RECORDS SUMMARY | 2022-06-18 00:27 | XMS_ITS | Encounter Summary ---
:1940 Author Organization [facility] Address [address] [place] [address] Care Team Providers Name Role Phone Campos Lopes MD Primary Care Provider Reason for Visit Reason Onset Date Comments Medications Refill 11/16/2010 Encounter Details Date Type Department Care Team Description 11/16/2010 Refill [facility] Pelvic Melina Avalos, Medications Refill Medicine and Reconstructive MD Surgery - Medical Office [address] [place] [address] [phone] Social History Tobacco Use Types Packs/Day Years [...] Sig Dispensed Refills Start Date End Date estradiol (ESTRACE) 0.01 % Place vaginally. 1 Tube 6 04/201111/26/2010 (0.1 mg/g) vaginal cream Per vagina 2 x weekly documented in this encounter Miscellaneous Notes Telephone Encounter - Sammi Hannon - 11/16/2010 0842 EST Refill from pharmacy Last refill date 08.21.10. documented in this encounter Plan of Treatment Not on filedocumented as of this encounter Visit Diagnoses Not on filedocumented in this encounter Discontinued Medications Medication Sig Discontinue Reason Start Date End Date estradiol (ESTRACE) 0.01 Place 2 g vaginally. Reorder 11/16/2010 % (0.1 mg/g) vaginal Per vagina 2 x cream weekly documented as of this encounter Care Teams Electric Range Assembler Relationship Specialty Start Date End Date Campos Lopes MD PCP - General 05/21/09 [address] [place] [address] documented as of this encounter
--- OUTSIDE RECORDS SUMMARY | 2022-06-18 00:27 | XMS_ITS | Encounter Summary ---
:1940 Author Organization [facility] Address [address] [place] [address] Care Team Providers Name Role Phone Campos Lopes MD Primary Care Provider Encounter Details Date Type Department Care Team Description 10/16/2013 Orders Only [facility] Urology Hernandez, Urinary frequency [address] JAZIEL Garza (Primary Dx) [place], [place] [phone] Social History Tobacco Use Types Packs/Day Years [...] frequency - Primary documented in this encounter Care Teams Office Services Representative Relationship Specialty Start Date End Date Campos Lopes MD PCP - General 05/21/09 [address] [place], [place] [phone] documented as of this encounter
--- OUTSIDE RECORDS SUMMARY | 2022-06-18 00:27 | XMS_ITS | Encounter Summary ---
:1940 Author Organization [facility] Address [address] [place] [address] Care Team Providers Name Role Phone Campos Lopes MD Primary Care Provider Encounter Details Date Type Department Care Team Description 03/12/2010 Results Only [facility] Pelvic Melina Patel MD Medicine and Reconstructive [address] [place] Surgery - Medical Office [place] [phone] [address] [facility] [place] [address] [phone] Social History Tobacco Use Types Packs/Day Years Used Date Never Assessed Sex Assigned at Date Recorded Not on file documented as of this encounter Plan of Treatment Not on filedocumented as of this encounter Procedures Procedure Name Priority Date/Time Associated Comments Diagnosis CHLAMYDIA/N. Routine 03/12/2010 14:38 Results for this GONORRHOEAE AMPLIFIED EDT proced ure are in RNA the results section. documented in this encounter Results CHLAMYDIA/GC AMPLIFIED (03/12/2010 14:38 EDT) Specimen Vagina [facility] Description LAB Chlamydia Result No Chlamydia [facility] trachomatis DNA LAB detected by ediscovery project manager mediated amplification. GC Result No Neisseria [facility] gonorrhoeae DNA LAB detected by ediscovery project manager mediated amplification. Specimen Performing Organization Address City/State/ZIP Code Phon e Number [facility] [address] [place] [address] SERVICES [facility] [address] [place] [address] documented in this encounter Visit Diagnoses Not on filedocumented in this encounter Care Teams Clinical Data Management Manager Relationship Specialty Start Date End Date Campos Lopes MD PCP - General 05/21/09 [address] [place], [place] [phone] documented as of this encounter
--- OUTSIDE RECORDS SUMMARY | 2022-06-18 00:27 | XMS_ITS | Encounter Summary ---
:1940 Author Organization [facility] Address [address] [place] [address] Care Team Providers Name Role Phone Campos Lopes MD Primary Care Provider Encounter Details Date Type Department Care Team Description 08/23/2014 Hospital Encounter [facility] Unknown, Provider, [facility] [address] [facility] [phone] [place] [address] (Work) [phone] Social History Tobacco Use Types Packs/Day Years [...] on file documented as of this encounter Medications at Time of Discharge Medication Sig Dispensed Refills Start Date End Date albuterol (PROAIR HFA) 90 Inhale 1-2 Puffs as 0 mcg/actuation inhaler directed every 6 hours as needed for Wheezing. Reported on 01/05/2017 atenolol (TENORMIN) 50 mg Take 25 mg by mouth 0 tabletIndications: daily before Hyperthyroidism breakfast. ergocalciferol, vitamin D2, Take 2,000 Units by 0 2,000 unit tablet mouth daily. Twice weekly estradiol (ESTRACE) 0.01 % Place vaginally. Per 1 Tube 11 06/29/2011 (0.1 mg/g) vaginal cream vagina 2 x weekly fluticasone-salmeterol Inhale 2 Puffs as directed 2 times daily . 0 (ADVAIR HFA) 230-21 mcg/actuation inhaler ibuprofen (MOTRIN) 200 mg Take 4 Tabs by mouth 0 tablet every 8 hours as needed for Pain. documented as of this encounter Discharge Disposition Disposition Code Departure Means Destination Home or Self Intermediate documented in this encounter Plan of Treatment Not on filedocumented as of this encounter Visit Diagnoses Not on filedocumented in this encounter Care Teams Cereal Supervisor Relationship Specialty Start Date End Date Campos Lopes MD PCP - General 05/21/09 [address] [place] [address] documented as of this encounter
--- OUTSIDE RECORDS SUMMARY | 2022-06-18 00:27 | XMS_ITS | Encounter Summary ---
:1940 Author Organization [facility] Address [address] [place] [address] Care Team Providers Name Role Phone Campos Lopes MD Primary Care Provider Reason for Visit Reason Onset Date Comments Other 06/22/2013 Encounter Details Date Type Department Care Team Description 06/22/2013 Telephone [facility] Tye Navarro MD Other Surgical Oncology - [facility] 111 [facility], [facility] 111 [facility], [address] [place], [place] [phone] [place] [phone] (Wo rk) Social History Tobacco Use Types [...] this encounter Miscellaneous Notes Telephone Encounter - Ceci Clark RN - 06/22/2013 5394 EDT Return call to patient. Reports that she is more symptomatic and is considering having thyroid surgery. Requests to speak with Dr. Navarro today. Advised patient that I will give Dr. Navarro the message and her telephone #. CECI CLARK RN elephone Encounter - Gloria Gustafson - 06/22/2013 1035 EDT Patient calling, would like to speak with Ceci, did not want to give any details. documented in this encounter Plan of Treatment Not on filedocumented as of this encounter Visit Diagnoses Not on filedocumented in this encounter Care Teams Application Support Engineer Relationship Specialty Start Date End Date Campos Lopes MD PCP - General 05/21/09 [address] [place] [address] documented as of this encounter
--- OUTSIDE RECORDS SUMMARY | 2022-06-18 00:27 | XMS_ITS | Encounter Summary ---
:1940 Author Organization [facility] Address [address] [place] [address] Care Team Providers Name Role Phone Campos Lopes MD Primary Care Provider Encounter Details Date Type Department Care Team Description 06/29/2011 Orders Only [facility] Pelvic Rashaad, Ur inary frequency Medicine and JAZIEL Banegas (Primary Dx) Reconstructive Surgery - Medical Office [facility] [address] [place] [address] Social History Tobacco Use Types [...] Date estradiol (ESTRACE) 0.01 % Place vaginally. Per 1 Tube 11 06/29/2011 (0.1 mg/g) vaginal cream vagina 2 x weekly documented in this encounter Plan of Treatment Not on filedocumented as of this encounter Visit Diagnoses Diagnosis Urinary frequency - Primary documented in this encounter Discontinued Medications Medication Sig Discontinue Reason Start Date End Date conjugated estrogens Place vaginally twice Alternate therapy 201006/29/2011 0.625mg/G (PREMARIN) a week. At bed time vaginal cream for 7 days, then at bedtime twice a week documented as of this encounter Care Teams Director Of Software Engineering Relationship Specialty Start Date End Date Campos Lopes MD PCP - General 05/21/09 [address] [place] [address] documented as of this encounter
--- OUTSIDE RECORDS SUMMARY | 2022-06-18 00:27 | XMS_ITS | Encounter Summary ---
:1940 Author Organization [facility] Address [address] [place] [address] Care Team Providers Name Role Phone Campos Lopes MD Primary Care Provider Reason for Visit Reason Onset Date Comments Results 10/16/2010 Patient says her PCP never received clinic note and letter Encounter Details Date Type Department Care Team Description 10/16/2010 Telephone [facility] Thomas Brown Resul ts (Patient says Endocrinology - Edgardo duncan MD her PCP never received [address] [facility] [address], clinic note [place], [place] [address] [address] letter) [phone] [place] [address] Social History Tobacco Use Types Packs/Day Years [...] this encounter Miscellaneous Notes Telephone Encounter - Thomas Brown - 10/16/2010 0713 EST Would you please send a copy of my clinic note and the letter I sent to the patient on 09/09/10 to her PCP? Actually, please fax so we know he gets it bradly. Thanks very much, Annis documented in this encounter Plan of Treatment Not on filedocumented as of this encounter Visit Diagnoses Not on filedocumented in this encounter Care Teams System Analyst Relationship Specialty Start Date End Date Campos Lopes MD PCP - General 05/21/09 [address] [place] [address] documented as of this encounter
--- OUTSIDE RECORDS SUMMARY | 2022-06-18 00:27 | XMS_ITS | Encounter Summary ---
:1940 Author Organization [facility] Address [address] [place] [address] Care Team Providers Name Role Phone Campos Lopes MD Primary Care Provider Encounter Details Date Type Department Care Team Description 06/10/2015 Results Only [facility] Campos Lopes MD [phone] [address] [place], [place] [address] (Wo rk) Social History Tobacco Use Types [...] Associated Diagnosis Comme nts SURGICAL PATHOLOGY Routine 06/10/2015 20:30 Resul ts for this EDT procedure are i n the results section. documented in this encounter Results SURGICAL PATHOLOGY (06/10/2015 20:30 EDT) Pathology Report: SURGICAL PATHOLOGY REPORT [facility] Reports generated via electronic interface contain shari ginal data; LABORATORY however they are lacking the format of the original re port. SERVICES Caution should be taken when reading/interpreting unfo rmatted reports. Name: ? GENA BAEZ RA ? Accession #: ? [id number] ? : ? 1940 (Age: [age]) ??F ? Collect Date: ? 06/10/2015 ? Location: ? [facility] ? Receive Date: ? 5 ? Provider: CAMPOS LOPES MD Copy to: ? Final Pathologic Diagnosis: A. ??SKIN OF THIGH, LEFT, PUNCH BIOPSY: - Basal cell carcinoma, nodular type. ?? - Basal cell carcinoma present at peripheral ed ges of punch biopsy specimen. B. ??SKIN OF THIGH, RIGHT, PUNCH BIOPSY: - Basal cell carcinoma, superficial and nodular type. - Basal cell carcinoma pres ent at peripheral edges of punch biopsy specimen. ?? Microscopic Description: Irregularly shaped islands o f atypical basal cells infiltrate the dermis. ??The basal cells have scant cytoplasm and round dark nuclei. ??Mitotic figures and apoptotic bodies are evident . ??The nuclei at the periphery of the islands have a palisaded arrangement. ??The islands are associated with a fibromyxoid stroma and there is cleft formation bet ween some of the islands and stroma. ??(Dr. Box)/ljn Document reviewed and electronically signed by: JIE BOX MD Report ??Date: 06/12/2015 16:41 By the signature above, the attending physician certif ies that he/she has personally conducted a gross and/or microscopic examin ation of the described specimens and rendered or confirmed the above diagnosi s. Specimen(s) Received: A. ??4.0 mm punch L thigh B. ??4.0 mm punch R thigh Clinical History: A. 1.0 cm crusted lesion, ? squamous cell CA; B. 1.0 cm lesion, scar tissue ?, ? basal cell Gross Description: A. ?Received in formalin labelled with proper p atient identification (initials E, B) and #1 left thigh is a punch b iopsy of stuart-brown roughened, partially fragmented skin (0.3 cm in diameter an d 0.3 cm in thickness). ??The specimen is submitted intact in A1. B. ?Received in formalin labelled with proper p atient identification (initials E, B) and #2 righ t thigh is a punch biopsy of pink-stuart splotchy skin (0.3 cm in diameter and 0.1 cm in thickness). ??The specimen is submitted intact in B1. Eduardo Martines 06/12/2015 9:09 AM End of Report Specimen Performing Organization Address City/State/ZIP Code Phon e Number [facility] [address] [place] [address] SERVICES documented in this encounter Visit Diagnoses Not on filedocumented in this encounter Care Teams In Home Sales Representative Relationship Specialty Start Date End Date Campos Lopes MD PCP - General 05/21/09 [address] [place] [address] documented as of this encounter
--- OUTSIDE RECORDS SUMMARY | 2022-06-18 00:27 | XMS_ITS | Encounter Summary ---
:1940 Author Organization [facility] Address [address] [place] [address] Care Team Providers Name Role Phone Campos Lopes MD Primary Care Provider Reason for Visit Reason Onset Date Comments Labs Only 03/13/2010 Needs claraification on order sent yesterday Encounter Details Date Type Department Care Team Description 03/13/2010 Telephone [facility] Pelvic Melina Avalos Labs Only (Needs Medicine and AMD claraification on order Reconstructive Surgery - [address] ent yesterday) Medical Office Build [facility] [address] [phone] Social History Tobacco Use Types Packs/Day Years Used Date Never Assessed Sex Assigned at Date Recorded Not on file documented as of this encounter Miscellaneous Notes Telephone Encounter - Claudia Haq RN - 03/18/2010 1336 EDT All lab tests/cultures have returned negative. elephone Encounter - Kirti Neil RN - 03/13/2010 1331 EDT Return call made to the lab. They wanted clarification on the Chlamydia cx request. She wanted to know if we wanted the Chlamydia/gonorrhea testing or just Chlamydia. We would need to order the CTGC testing to get both. I asked that they add the gonorrhea testing as well. documented in this encounter Plan of Treatment Not on filedocumented as of this encounter Visit Diagnoses Not on filedocumented in this encounter Care Teams Field Underwriter Relationship Specialty Start Date End Date Campos Lopes MD PCP - General 05/21/09 [address] [place] [address] documented as of this encounter
--- OUTSIDE RECORDS SUMMARY | 2022-06-18 00:27 | XMS_ITS | Encounter Summary ---
:1940 Author Organization [facility] Address [address] [place] [address] Care Team Providers Name Role Phone Campos Lopes MD Primary Care Provider Reason for Visit Reason Onset Date Comments Results 06/24/2010 Encounter Details Date Type Department Care Team Description 06/24/2010 Telephone [facility] Pelvic Melina Patel MD Results Medicine and Reconstructive [address] [facility] Surgery - Medical Office [address] [phone] [place] [address] [place] [address] [phone] Social History Tobacco Use Types Packs/Day Years Used Date Never Assessed Sex Assigned at Date Recorded Not on file documented as of this encounter Miscellaneous Notes Telephone Encounter - Julissa John - 06/24/2010 1125 EDT Returned pt call. Left message on machine asking pt to email JAL and she will call pt to discuss either tomorrow or Tuesday (Per JAL). elephone Encounter - Cathy Mehta - 06/24/2010 0954 EDT Patient wants to discuss a positive HPV Test with Dr Olsene documented in this encounter Plan of Treatment Not on filedocumented as of this encounter Visit Diagnoses Not on filedocumented in this encounter Care Teams Asphalt Tar And Gravel Roofer Relationship Specialty Start Date End Date Campos Lopes MD PCP - General 05/21/09 [address] [place] [address] documented as of this encounter
--- OUTSIDE RECORDS SUMMARY | 2022-06-18 00:27 | XMS_ITS | Encounter Summary ---
:1940 Author Organization [facility] Address [address] [place] [address] Care Team Providers Name Role Phone Campos Lopes MD Primary Care Provider Encounter Details Date Type Department Care Team Description 09/03/2009 Orders Only [facility] Pelvic Melina Patel MD Medicine and Reconstructive [address] [place] Surgery - Medical Office [place] [phone] 8 [facility] [place] [address] [phone] Social History Tobacco Use Types Packs/Day Years Used Date Never Assessed Sex Assigned at Date Recorded Not on file documented as of this encounter Plan of Treatment Not on filedocumented as of this encounter Procedures Procedure Name Priority Date/Time Associated Comments Diagnosis RAD US PELVIS 09/03/2009 12:00 Results fo r this TRANSABDOMINAL AND EST procedure are in TRANSVAGINAL the results section. documented in this encounter Results RAD US PELVIS TRANSABDOMINAL AND TRANSVAGINAL (09/03/2009 12:00 EST) Anatomical Region Laterality Modality Other Specimen Narrative [facility] - 09/03/2009 14:19 EST Pelvic ultrasound. US RETROPERITONEAL COMPLETE ??Sep 03 12:07:00 PM Clinical History/Comments: Hematuria. Comparison: None Findings: Pelvis was scanned using transabdominal and endovaginal technique. The retroperitoneum name was scanned tra nsabdominal The transabdominal retroperitoneal study shows both kidneys. The right kidney measures 10.9 cm in length. The left kidney measures 11.3 cm in length. There are no stones, masses or hydronephrosis of the kidneys. The bladder appears normal and both uret eral jets were identified. Conclusion: normal rectoperineal study. Transabdominal and endovaginal scanning of the pelvis. Exam demonstrates uterus measuring 8.5 x 4.1 by 4.8 cm in size. There is a submucosal fibroid in the fun dus measuring proximally 12 mm in maximum dimension. A small calcifi cation of the posterior fundus is also noted The right ovary is seen measuring one point 3 x 1.7 by 3.1 cm. The left ovary is seen me asuring 3.4 x 1.8 x 1.9 cm. No adnexal mass or pathology seen. The endometrium is abnormal measuring 13 mm in thickness. Several nabothian cysts are identified within th e cervix. No free fluid is seen. Conclusion: Submucosal fibroid measuring 12 mm in size and endometrial thickening a 13 mm No adnexal masses or ovarian pathology s een. Procedure Note 09/03/2009 Pelvic ultrasound. US RETROPERITONEAL COMPLETE Sep 03, 2009 12:07:00 PM Clinical History/Comments: Hematuria. Comparison: None Findings: Pelvis was scanned using transabdominal and endovaginal technique. The retroperitoneum name was scanned tra nsabdominal The transabdominal retroperitoneal study shows both kidneys. The right kidney measures 10.9 cm in length. The left kidney measures 11.3 cm in length. There are no stones, masses or hydronephrosis of the kidneys. The bladder appears normal and both uret eral jets were identified. Conclusion: normal rectoperineal study. Transabdominal and endovaginal scanning of the pelvis. Exam demonstrates uterus measuring 8.5 x 4.1 by 4.8 cm in size. There is a submucosal fibroid in the fun dus measuring proximally 12 mm in maximum dimension. A small calcifi cation of the posterior fundus is also noted The right ovary is seen measuring one point 3 x 1.7 by 3.1 cm. The left ovary is seen me asuring 3.4 x 1.8 x 1.9 cm. No adnexal mass or pathology seen. The endometrium is abnormal measuring 13 mm in thickness. Several nabothian cysts are identified within th e cervix. No free fluid is seen. Conclusion: Submucosal fibroid measuring 12 mm in size and endometrial thickening a 13 mm No adnexal masses or ovarian pathology s een. Performing Organization Address City/State/ZIP Code Phon e Number [facility] documented in this encounter Visit Diagnoses Not on filedocumented in this encounter Care Teams Community Development Technician Relationship Specialty Start Date End Date Campos Lopes MD PCP - General 05/21/09 [address] [place] [address] documented as of this encounter
--- OUTSIDE RECORDS SUMMARY | 2022-06-18 00:27 | XMS_ITS | Encounter Summary ---
:[address] [facility] Address [address] [place] [address] Care Team Providers Name Role Phone Campos Lopes MD Primary Care Provider Encounter Details Date Type Department Care Team Description 12/26/2009 Results Only [facility] Pelvic Mayelin Patel MD Medicine and Reconstructive [address] [place] Surgery - Medical Office [place] [phone] 5 [facility] [place] [address] [phone] Social History Tobacco Use Types Packs/Day Years Used Date Never Assessed Sex Assigned at Date Recorded Not on file documented as of this encounter Plan of Treatment Not on filedocumented as of this encounter Procedures Procedure Name Priority Date/Time Associated Diagnosis Comme nts BACTERIAL CULTURE, Routine 12/26/2009 11:30 Resul ts for this URINE EDT procedure are i n the results section. SURGICAL PATHOLOGY Routine 12/26/2009 0:00 EDT Re sults for this procedure are i n the results section. documented in this encounter Results BACTERIAL CULTURE, URINE (12/26/2009 11:30 EDT) Specimen Urine [facility] Description LAB Result 10,000 to 100,000 CFU/ml [facility] LACTOBACILLUS SPECIES LAB Less than 10,000 CFU/ml Mixed gram positive growth Report Status Final [facility] 12/28/2009 LAB Specimen Urine (substance) Performing Organization Address City/State/ZIP Code Phon e Number [facility] [address] [place] [address] SERVICES [facility] [address] [place] [address] SURGICAL PATHOLOGY (12/26/2009 0:00 EDT) Pathology Report: SURGICAL PATHOLOGY REPORT ? [facility] Reports generated via [employer] interface contain original data; ? LAB however they are lacking the format of the original report. ? Caution should be taken when reading/interpreting unformatted reports. ? Name: ? GENA BAEZ RA ? Accession #: ? [id number] ? : ? 1940 (Age: 69) ??F ? Collec t Date: ? 12/26/2009 ? Location: ? [facility] ? R eceive Date: ? 12/26/2009 ? Provider: MAYELIN A KIM MD ? Copy to: ? Final Pathologic Diagnosis: ? Endometrium, biopsy: ? 1. ?Strips of a trophic endometrium. ? 2. ? Benign squamous and endocervical tissue. ? Document reviewed and electr onically signed by: ? JON LATHAM MD ? Report ??Date: 12/31/2009 10 :28 ? By the signature above, the attending physician certifies that he/she has ? personally conducted a gross and/or microscopic examination of the described ? specimens and rendered or co nfirmed the above diagnosis. ? Specimen(s) Received: ? Endometrial biopsy ? Clinical History: ? Clinical diagnosis co de: 627.1 ? Gross Description: ? Received in formalin labelled Maureen Baez is a 0.8 x 0.5 x 0.3 cm aggregate of predominantly w paloma mucus admixed with scant, stuart tissue fragments. The specimen is filtered an d entirely submitted in a single cassette. ??(L. ? Gary)/abn ? End of Report ? Specimen Performing Organization Address City/State/ZIP Code Phon e Number [facility] [address] [place] [address] SERVICES [facility] [address] [place] [address] documented in this encounter Visit Diagnoses Not on filedocumented in this encounter Care Teams Qa Auditor Relationship Specialty Start Date End Date Campos Lopes MD PCP - General 05/21/09 [address] [place] [address] documented as of this encounter
--- OUTSIDE RECORDS SUMMARY | 2022-06-18 00:27 | XMS_ITS | Encounter Summary ---
:1940 Author Organization [facility] Address [address] [place] [address] Care Team Providers Name Role Phone Campos Lopes MD Primary Care Provider Reason for Visit Reason Onset Date Comments New Patient Visit 10/28/2014 Spoke with patient. Encounter Details Date Type Department Care Team Description 10/28/2014 Telephone [facility] Tye Navarro MD New Patient Visit Hematology & Oncology [address] [facility] (Spoke with patient.) - [facility], [address] [place], [place] [id number] [place] [address] [phone] (Wo rk) Social History Tobacco Use [...] this encounter Miscellaneous Notes Telephone Encounter - Sruthi Wallace Sharan - 10/28/2014 1049 EST Patient called Crissy to cancel appointment with Dr. Navarro today at 1:30 pm, she asked to be rescheduled to 2.9.15. I called her back and she accepted an appointment on 11.18.14 at 2:[address] Navarro. documented in this encounter Plan of Treatment Not on filedocumented as of this encounter Visit Diagnoses Not on filedocumented in this encounter Care Teams Corrugator Machine Operator Relationship Specialty Start Date End Date Campos Lopes MD PCP - General 05/21/09 [address] [place] [address] documented as of this encounter
--- OUTSIDE RECORDS SUMMARY | 2022-06-18 00:27 | XMS_ITS | Encounter Summary ---
:1940 Author Organization [facility] Address [address] [place] [address] Care Team Providers Name Role Phone Campos Lopes MD Primary Care Provider Encounter Details Date Type Department Care Team Description 06/10/2015 Hospital Encounter [facility] - S Unknown, Pro Eugene camara MD 1 [facility] [phone] [place] [address] (Work) [phone] Social History Tobacco Use Types Packs/Day Years [...] Code Departure Means Destination Home or Self Group Home documented in this encounter Plan of Treatment Not on filedocumented as of this encounter Visit Diagnoses Not on filedocumented in this encounter Care Teams Transformer Tester Relationship Specialty Start Date End Date Campos Lopes MD PCP - General 05/21/09 [address] [place] [address] documented as of this encounter
--- OUTSIDE RECORDS SUMMARY | 2022-06-18 00:27 | XMS_ITS | Encounter Summary ---
:1940 Author Organization [facility] Address [address] [place] [address] Care Team Providers Name Role Phone Campos Lopes MD Primary Care Provider Reason for Visit Reason Comments Urinary Frequency follow up Encounter Details Date Type Department Care Team Description 03/12/2010 Office Visit [facility] Pelvic Melina Avalos Vaginal discharge (Primary Dx); Medicine and AMD Vaginal atrophy; Reconstructive Surgery - [address] U rinary frequency; Medical Office [place] Painful bladder spasm [facility] [address] [place] [phone] [place], [place] [phone] Social History Tobacco Use Types Packs/Day Years Used Date Never Assessed Sex Assigned at Date Recorded Not on file documented as of this encounter Discharge Disposition Disposition Code Departure Means Destination Auto Discharge documented in this encounter Progress Notes Tre Haq RN - 03/12/2010 1503 EDT Addended by: TRE HAQ on: 03/12/2010 Modules accepted: Orders Melina Li - 03/12/2010 1451 EDT SUBJECTIVE: Maureen Thomas presents with periurethral irritation and urinary frequency for 3 year(s). Symptoms have waxed and waned. Detrol-LA 4 mg PRN has relieved frequency symptoms somewhat. Has been treated for UTI on numerous occasions in the past, but has had negative catheterized urine cultures in our office. CCMS specimens have all been contaminants. Using Estrace cream 2 x a week with mild benefit. Did a short trial of PFPT without benefit and a trial of bladder instillations without benefit. CUS was negative last year. Vaginal symptoms: local irritation, vulvar itching, burning and pain. Vulvar symptoms: local irritation, vulvar itching, burning and pain. STI Risk: Possible STD exposure Other associated symptoms: dyspareunia, dysuria, urinary frequency and urinary urgency. Menstrual pattern: She had post-menopausal spotting with a negative TV U/S and EmBx. SEXUAL HISTORY Reviewed and updated. OBJECTIVE: ABD: Abdomen soft, non-tender. BS normal. No masses, No organomegaly Pelvic Exam:negative findings: external genitalia normal, Bartholin's glands, urethra, [place]'s glands negative, vaginal mucosa normal, cervix clear, normal sized uterus, adnexae negative, saline prep negative for clue cells, motile trichomonas organisms and WBC's Cultures obtained: GC and Chlamydia genprobes, bacterial culture and urine culture. 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 Treated for trichomonads and ureaplasm in past. Will follow up of vaginal cultures. If all cultures negative, will assume PBS and discuss appropriate treatment options. Advised pt to initiate probioticsgiven the years of intermittent antiobiotic use. F/U PRN. Symptomatic local care discussed, Educational materials distributed documented in this encounter Plan of Treatment Not on filedocumented as of this encounter Procedures Procedure Name Priority Date/Time Associated Comments Diagnosis BACTERIAL Routine 03/12/2010 14:59 Urinary frequency Result s for this CULTURE/SMEAR, URINE EDT procedu re are in the results section. ZZVAGINITIS EXAM Routine 03/12/2010 14:39 Vaginal discharge Re sults for this EDT procedure are i n the results section. UREAPLASMA PCR Routine 03/12/2010 14:38 Vaginal discharge Resu lts for this EDT procedure are i n the results section. MYCOPLASMA HOMINIS Routine 03/12/2010 14:38 Vaginal discharge Results for this PCR-TEMP UNAVALABLE EDT procedur e are in the results section. documented in this encounter Results BACTERIAL CULTURE/SMEAR, URINE (03/12/2010 14:59 EDT) Specimen Description Urine [facility] Gram Smear Result No polys seen [facility] No bacteria seen Result No growth [facility] Report Status Final [facility] 03/14/2010 Specimen Other (qualifier value) Performing Organization Address City/[facility]/ZIP Code Phon e Number [facility] [address] [place] [address] SERVICES [facility] [address] [place] [address] VAGINITIS EXAM (03/12/2010 14:39 EDT) Specimen Description Vagina [facility] Gram Smear Result No yeast or clue [facility] cells seen. LAB Result No Trichomonas [facility] antigen detected. LAB Report Status Final [facility] 03/12/2010 LAB Specimen Other (qualifier value) Performing Organization Address [facility] Phon e Number [facility] [address] [place] [phone] SERVICES [facility] [address] [place] [phone] CULTURE, UREAPLASMA UREALYTICUM (03/12/2010 14:38 EDT) Specimen Description VAGINAL DISCHARGE [facility] Result-Ureaplasma [facility] Culture No growth after 5 days ? Report Status [facility] FINAL [id number] ? Performed or Referred by: [facility] Dpt of Lab Med and Path, [address] ? [place] [address], Lab Dir: Mike Aguirre III, ? MD ? Specimen Other (qualifier value) Performing Organization Address [facility] Phon e Number [facility] [address] [place] [address] SERVICES [facility] [address] [place] [address] CULTURE, MYCOPLASMA HOMINIS (03/12/2010 14:38 EDT) Specimen Description VAGINAL DISCHARGE [facility] Result-Mycoplasma [facility] hominis Culture No growth after 5 days ? Report Status [facility] FINAL [id number] ? Performed or Referred by: [facility] Dpt of Lab Med and Path, [address] ? [place] [address], Lab Dir: Mike Aguirre III, ? MD ? Specimen Other (qualifier value) Performing Organization Address [facility] Phon e Number [facility] [address] [place] [address] SERVICES [facility] [address] [place] [phone] documented in this encounter Visit Diagnoses Diagnosis Vaginal discharge - Primary Leukorrhea, not specified as infective Vaginal atrophy Postmenopausal atrophic vaginitis Urinary frequency Painful bladder spasm Other symptoms involving urinary system documented in this encounter Historical Medications This list may reflect changes made after this encounter. Medication Sig Dispensed Refills Start Date End Date estradiol (ESTRACE) 0.01 Place 2 g vaginally. 0 11/16/2010 % (0.1 mg/g) vaginal Per vagina 2 x cream weekly added in this encounter Orders Lab Orders Without Results Count Last Ordered Date Fir st Ordered Date CHLAMYDIA TRACHOMATIS CULTURE 1 03/12/2010 documented in this encounter Care Teams Senior Hris Analyst Relationship Specialty Start Date End Date Campos Lopes MD PCP - General 05/21/09 [address] [place], [place] [phone] documented as of this encounter
--- OUTSIDE RECORDS SUMMARY | 2022-06-18 00:27 | XMS_ITS | Encounter Summary ---
:[address] [facility] Address [address] [place] [address] Care Team Providers Name Role Phone Campos Ignacio MD Primary Care Provider Reason for Visit Reason Onset Date Comments Letter for School/Work 04/17/2012 Encounter Details Date Type Department Care Team Description 04/17/2012 Telephone [facility] Brent Navarrete Letter f or School/Work Endocrinology - [employer] [facility] dakota Tapia MD [address] [facility] [address] [place], [place] [address] [place] [address] [place] [phone] Social History Tobacco Use Types [...] this encounter Miscellaneous Notes Telephone Encounter - Trang Kathleen - 04/17/[address] Ignacio's office. elephone Encounter - Lisa Matthew - 04/17/2012 0833 EDT Wants her recent lab results sent to dr ignacio his phone number is [phone] he has received it and she said she called 3 weeks ago for it to be done documented in this encounter Plan of Treatment Not on filedocumented as of this encounter Visit Diagnoses Not on filedocumented in this encounter Care Teams Electric Shaver Mechanic Relationship Specialty Start Date End Date Campos Ignacio MD PCP - General 05/21/09 [address] [place] [address] documented as of this encounter
--- OUTSIDE RECORDS SUMMARY | 2022-06-18 00:27 | XMS_ITS | Encounter Summary ---
:1940 Author Organization [facility] Address [address] [place] [address] Care Team Providers Name Role Phone Campos Lopes MD Primary Care Provider Reason for Visit Reason Comments Hyperthyroidism Encounter Details Date Type Department Care Team Description 08/19/2010 Office Visit [facility] Thomas Brown (Primary Endocrinology - Edgardo Bell MD Dx) [address], [facility] [address] [place] [address] Social History Tobacco Use Types [...] Sign Reading Time Taken Comments Blood Pressure 164/78 08/19/2010 1449 EST Pulse 84 08/19/2010 1449 EST Temperature - - Respiratory Rate - - Oxygen Saturation - - Inhaled Oxygen Concentration - - Weight - - Height 167.6 cm (5' 6) 08/19/2010 1449 EST Body Mass Index - - documented in this encounter Progress Notes Thomas Brown - 08/19/20102129 EST Endocrinology Initial Thyroid Evaluation 08/19/2010 SUBJECTIVE: Maureen Thomas is a 70 y.o. female who I am asked to see in consultation for evaluation of Hyperthyroidism. Patient's thyroid history/symptoms include irritability, poor sleeping, tachycardia and tremulousness without overt tremor. 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 She has had a suppressed TSH now for 5-6 years.. Patient denies the following history/symptoms: changes in vision, choking sensation, cold intolerance, constipation, cough, diarrhea, difficulty swallowing, enlargement of neck, exophthalmos, eye pain, goiter, hair loss, headache, heat intolerance, hoarseness, increased appetite, increased stool frequency, increased urinary frequency, muscle crampsor weakness, weight gain and weight loss. Symptoms have been present for 5 years. The patient deniesuse of thyroid medicines. Prior studies include TSH, FT4, TT3 and nothing more that I know of, but Juan not have access to any records except for her labs from May,.. Family history includes unknown - either she is adopted or chooses not to communicate with them, I'm not sure which.. In addition the patient reports the following: vulvodynia as stated above that she wonders if could be related to the hyperthyroidism. PAST MEDICAL HISTORY Past Medical History Diagnosis Date ??? Thyroid disease suppressed TSH; nml T4 and T3 History reviewed. No pertinent past surgical history. History reviewed. No pertinent family history. History Social History ??? Marital Status: Single Spouse Name: N/A Number of Children: N/A ??? Years of Education: N/A Social History Main Topics ??? Tobacco Use: Quit -- 1.0 packs/day for 32 years Quit date: 08/19/1995 ??? Alcohol Use: Yes very rare ??? Drug Use: No ??? Sexually Active: Other Topics Concern ??? None Social History Narrative ??? None MEDICATIONS Current outpatient prescriptions Medication Sig Dispense Refill ??? atenolol (TENORMIN) 50 mg tablet Take 50 mg by mouth daily. ??? fluticasone (FLOVENT) 110 mcg/Actuation inhaler Inhale as directed every 12 hours. ??? PIRBUTEROL ACETATE (MAXAIR AUTOHALER INHL) Inhale as directed 2 times daily. ??? fluconazole (DIFLUCAN) 150 mg tablet Take 1 Tab by mouth once for 3 doses. 3 Tab 0 ??? estradiol (ESTRACE) 0.01 % (0.1 mg/g) vaginal cream Place 2 g vaginally. Per vagina 2 x weekly ??? tolterodine (DETROL LA) 4 mg ER capsule Take 4 mg by mouth daily. ??? ibuprofen (MOTRIN) 200 mg tablet Take 4 Tabs by mouth every 8 hours as needed for Pain. ??? metronidazole (FLAGYL) 500 mg tablet Take by mouth. As directed ALLERGIES Iodine-iodine containing and Ciprofloxacin REVIEW OF SYSTEMS: A ten point review of systems was performed. Pertinent positives are listed below, all others are negative: wakefulness, tremulousness, vulvodynia OBJECTIVE: Vitals: BP 164/78 Pulse 84 Ht 167.6 cm (66) BMI: There is no weight on file to calculate BMI. She is well appearing without obvious proptosis General: alert, cooperative Oropharynx: lips, mucosa, and tongue normal; teeth and gums normal Eyes: lid lag and stare Ears: normal TM's and external ear canals AU Neck: supple, symmetrical, trachea midline, no carotid bruit and no JVD Thyroid: no palpable nodule Lung: clear to auscultation bilaterally Heart: regular rate and rhythm, S1, S2 normal, no murmur, click, rub or gallop Abdomen: soft, non-tender; bowel sounds normal; no masses, no organomegaly Extremities: extremities warm, atraumatic, no cyanosis or edema positive pulses bilat Pulses: 2+ and symmetric Skin: smooth, warm and dry Neuro: reflexes normal and symmetric LAB REVIEW: Lab Results Component Value Date TSH <0.02* 08/19/2010 Lab Results Component Value Date [id number] 134 08/19/2010 No components found with this basename: FREET3 No results found for this basename: [id number] Lab Results Component Value Date FREET4 1.1 08/19/2010 No results found for this basename: THGAB ASSESSMENT: Hyperthyroidism. This diagnosis was discussed and reviewed with the patient including the advantagesof drug therapy, radioactive iodine, surgery, thyroid replacement/suppressive therapy and further testing. The differential diagnosis at this point includes Graves disease, toxic nodule, and thyroiditis. 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 PLAN: Orders Placed This Encounter Procedure ? ? Nm thyroid upt & scan Patient with iodine allergy and some claustrophobia Order Specific Question: Reason for Exam: Answer: Hyperthyroidism with suppressed TSH Order Specific Question: Scheduling Time Frame: Answer: 1-2 weeks Order Specific Question: Rule Out: Answer: toxic nodule versus Graves versus thyroiditis Order Specific Question: Special Instructions: Answer: Allergy to iodine - anaphylaxis so prefer pertechnitate Order Specific Question: Height cm: Answer: 167.6 Order Specific Question: Preferred Location: Answer: [facility] Order Specific Question: IV Sedation Needed: Answer: Adult ??? T4, free ??? Tsh ??? T3, total ??? Thyrotropin receptor antibody ??? Thyroperoxidase antibody 1. Labs: TSH, triiodothyronine total, thyroid autoantibodies and free thyroxine and sestamibi scan as stated above 2. Medications: None 3. The risks and benefits of my recommendations, as well as other treatment options were discussed with the patient today. Questions were answered. 4. Follow up: 8 weeks and as needed. Thomsa Brown MD 08/19/2010 21:22 documented in this encounter Plan of Treatment Not on filedocumented as of this encounter Procedures Procedure Name Priority Date/Time Associated Diagnosis Comme nts THYROTROPIN RECEPTOR Routine 08/19/2010 15:47 Hyperthyroidism Results for this ANTIBODY EST procedure are i n the results section. THYROPEROXIDASE Routine 08/19/2010 15:47 Hyperthyroidism Resul ts for this ANTIBODY EST procedure are i n the results section. T3, TOTAL Routine 08/19/2010 15:47 Hyperthyroidism Results for this EST procedure are i n the results section. TSH Routine 08/19/2010 15:47 Hyperthyroidism Results for this EST procedure are i n the results section. T4 FREE Routine 08/19/2010 15:47 Hyperthyroidism Results for this EST procedure are i n the results section. documented in this encounter Results THYROPEROXIDASE ANTIBODY (08/19/2010 15:47 EST) Pathologist Sig nature Thyroid Peroxidase Ab <10 <35 IU/mL [facility] Specimen Blood specimen (specimen) Performing Organization Address City/State/ZIP Code Phon e Number [facility] [address] [place] [address] SERVICES [facility] [address] [place] [address] THYROTROPIN RECEPTOR ANTIBODY (08/19/2010 15:47 EST) Thyrotropin <1.00Reference range: 0.00 to 1.75 [facility] Receptor Ab Unit: IU/L LAB At a decision limit of 1.75 IU/L, this assay has 97% ? sensitivity and 99% specific ity for detection of Graves' ? disease. In healthy individu als and in patients with ? thyroid disease without diag nosis of Graves' disease, the ? upper limit of anti-TSHR parag ues are 1.22 IU/L and 1.58 ? IU/L, respectively (97.5th p ercentiles). ? Performed by: [facility] , [address] , [place] [address], Lab Dir: ??Mike Aguirre ? III, M.D. ? Specimen Blood specimen (specimen) Performing Organization Address [facility]/ZIP [facility] Phon e Number [facility] [address] [place] [address] SERVICES [facility] [address] [place] [address] T3, TOTAL (08/19/2010 15:47 EST) Pathologist Sig nature T3, Total 134 60 - 181 ng/dL [facility] Specimen Blood specimen (specimen) Performing Organization Address [facility] Phon e Number [facility] [address] [place] [address] SERVICES [facility] [address] [place] [address] (ABNORMAL) TSH (08/19/2010 15:47 EST) Pathologist Sig nature TSH <0.02 (L) 0.35 - 5.00 uIU/ml [facility] Specimen Blood specimen (specimen) Performing Organization Address [facility] Phon e Number [facility] [address] [place] [address] SERVICES [facility] [address] [place] [address] T4 FREE (08/19/2010 15:47 EST) Pathologist Sig nature Free T4 1.1 0.8 - 1.8 ng/dL [facility] Specimen Blood specimen (specimen) Performing Organization Address [facility] Phon e Number [facility] [address] [place] [address] SERVICES [facility] [address] [place] [address] documented in this encounter Visit Diagnoses Diagnosis Hyperthyroidism - Primary Thyrotoxicosis without mention of goiter or other cause, without mention of thyrotoxic crisis or storm documented in this encounter Discontinued Medications Medication Sig Discontinue Reason Start Date End Date atenolol (TENORMIN) 25 mg Take 25 mg by mouth 08/19/2010 tablet daily as needed. ESTRADIOL (ESTRACE VAGL) Place vaginally 08/19/2010 once a week. Nitrofurantoin 50 mg Cap Take 50 mg by mouth 0 08/19/2010 daily. documented as of this encounter Historical Medications This list may reflect changes made after this encounter. Medication Sig Dispensed Refills Start Date End Date atenolol (TENORMIN) 50 mg Take 25 mg by mouth 0 tabletIndications: daily before Hyperthyroidism breakfast. PIRBUTEROL ACETATE (MAXAIR Inhale as directed 0 1 10/19/2009 04/15/2014 AUTOHALER 2 times daily. INHL)Indications: Hyperthyroidism fluticasone (FLOVENT) 110 Inhale as directed 0 04/15/2014 mcg/Actuation every 12 hours. inhalerIndications: Hyperthyroidism added in this encounter Care Teams Mortgage Processor Relationship Specialty Start Date End Date Campos Lopes MD PCP - General 05/21/09 [address] [place] [address] documented as of this encounter
--- OUTSIDE RECORDS SUMMARY | 2022-06-18 00:27 | XMS_ITS | Encounter Summary ---
:1940 Author Organization [facility] Address [address] [place] [address] Care Team Providers Name Role Phone Campos Lopes MD Primary Care Provider Reason for Visit Reason Onset Date Comments Discuss Treatment Options 06/19/2015 Appointment Related 06/20/2015 Encounter Details Date Type Department Care Team Description 06/19/2015 Telephone [facility] Angel Mcleod, Discuss Treatment Urology - [facility] Dorota wyatt MD Options; Appointment 111 [facility] 111 [facility] Related [place], [place] [address] [place] [address] [place], [address] [place] [address] (Wo rk) Social History Tobacco [...] Telephone Encounter - Ginny Soriano Gretchen - 06/24/2015 7192 EDT Got the message. Have tried multiple times today to call the patient regarding surgery and her lineis busy. Will try again tomorrow. elephone Encounter - Sarah Yates RN - 06/24/2015 1316 EDT Urine Culture results received from [facility]. 10-100,000 Mixed Gram Positive Marivel, reviewed with shane Cash to proceed with scheduled OR procedure elephone Encounter - Ginny Soriano - 06/24/2015 0826 EDT Called patient, will try for OR time on 07/03 and patient is aware that I will confirm with her as soon as the OR confirms OR time that day. elephone Encounter - Ginny Soriano - 06/23/2015 1614 EDT Called patient, tentative date for surgery is 07/03, I will call her as soon as I hear from the OR with date. elephone Encounter - Mae Causey - 06/20/2015 1248 EDT Reason for Call: Discuss Treatment Options and Appointment Related Summary/Symptoms: Pt calling back following up on a previous conversation with Dr. Mcleod. Wanting to know about an appt for 06/26? Please call Mae Causey 06/20/2015 12:48 elephone Encounter - Angel Mcleod MD - 06/19/2015 0951 EDT I spoke with Maureen today. She is having a particularly severe flare up of bladder pain and frequency every 20 minutes. She states she had a urine culture growing skin bacteria and was treated with amoxicillin and then switched to nitrofurantoin but both of these seemed to make her symptoms worse. She is scheduled to have a repeat culture today. She inquires about a cystoscopy with hydrodistention, which I believe is reasonable. However, I told Maureen we would need to see a negative urine culture before proceeding. She will arrange to have the results of today's culture sent to our office. elephone Encounter - Maureen Leon - 06/19/2015 0903 EDT Reason for Call: Discuss Treatment Options Summary/Symptoms: Pt wants to speak to Dr Mcleod (request only him) Pt said she is in pain, medication not working and feels that she wants to go ahead with procedure. Pt does not wants to make unneeded trips to office request to speak to doctor. Maureen Leon 06/19/2015 9:03 documented in this encounter Plan of Treatment Not on filedocumented as of this encounter Visit Diagnoses Not on filedocumented in this encounter Care Teams Lens Finisher Relationship Specialty Start Date End Date Campos Lopes MD PCP - General 05/21/09 [address] [place] [address] documented as of this encounter
--- OUTSIDE RECORDS SUMMARY | 2022-06-18 00:27 | XMS_ITS | Encounter Summary ---
:1940 Author Organization [facility] Address [address] [place] [address] Care Team Providers Name Role Phone Campos Lopes MD Primary Care Provider Reason for Visit Reason Onset Date Comments Follow-up Diagnostic PSG 01/29/2015 Encounter Details Date Type Department Care Team Description 01/29/2015 Telephone [facility] Adalberto Carey Follow -up Diagnostic Urology - Medical MD Arturo PSG Office Building [address] [place] [address] [address] [place], [place] [address] [place] [address] [phone] [address] (Wo rk) Social History Tobacco Use [...] Notes Telephone Encounter - Linsey Grant - 01/29/2015 5459 EDT I spoke with pt 01/28 concerning surgery, I also spoke with Macey to see if would do a surgery procedure. Waiting to hear back from Macey. Surgery is cystoscopy. hydrodistension , possible Bladder biopsy, urethral dilation documented in this encounter Plan of Treatment Not on filedocumented as of this encounter Visit Diagnoses Not on filedocumented in this encounter Care Teams Yarder Puncher Relationship Specialty Start Date End Date Campos Lopes MD PCP - General 05/21/09 [address] [place] [address] documented as of this encounter
--- OUTSIDE RECORDS SUMMARY | 2022-06-18 00:27 | XMS_ITS | Encounter Summary ---
:1940 Author Organization [facility] Address [address] [place] [address] Care Team Providers Name Role Phone Campos Lopes MD Primary Care Provider Reason for Visit Reason Onset Date Comments Other 08/24/2010 Returned whomever ca lled her. She said she just saw the # on caller ID. Other 08/24/2010 Encounter Details Date Type Department Care Team Description 08/24/2010 Telephone [facility] Issa Oconnell, Other (Returned Endocrinology - Edgardo duncan RN whomever called her. [address] She said [place] [address] the # on caller ID.); [phone] Other Social History Tobacco Use Types Packs/Day [...] this encounter Miscellaneous Notes Telephone Encounter - Issa Oconnell - 08/25/2010 1632 EST Pt scheduled for testing at [facility] called with times. ISSA OCONNELL RN elephone Encounter - Issa Oconnell - 08/25/2010 0836 EST SHe would like to know when you are going to schedule th uptake and scan at [facility]. She's not happy with me. Please let me know so I can call her back. ISSA OCONNELL, RN documented in this encounter Plan of Treatment Not on filedocumented as of this encounter Visit Diagnoses Not on filedocumented in this encounter Care Teams Fire Operations Forester Relationship Specialty Start Date End Date Campos Lopes MD PCP - General 05/21/09 [address] [place] [address] documented as of this encounter
--- OUTSIDE RECORDS SUMMARY | 2022-06-18 00:27 | XMS_ITS | Encounter Summary ---
:1940 Author Organization [facility] Address [address] [place] [address] Care Team Providers Name Role Phone Campos Lopes MD Primary Care Provider Reason for Visit Reason Onset Date Comments Procedure 06/24/2015 Procedure 06/27/2015 07.03.2015 Encounter Details Date Type Department Care Team Description 06/24/2015 Telephone [facility] Angel Mcleod, Procedure; Procedure Urology - Mark wyatt MD (07.03.2015) 111 [facility] [address] [phone] [facility] [address] [place] [address] (Wo rk) Social History Tobacco [...] Telephone Encounter - Ginny Soriano Gretchen - 06/27/2015 1254 EDT Called the patient, left message that the next OR time I have with Dr. Mcleod is 07/15/15. Requested call back to discuss. elephone Encounter - Carmen Turner - 06/27/2015 1013 EDT Reason for Call: Procedure Summary/Symptoms: Per pt, needs to rsc the 9.24 surgery. Pt made aware to expect a call back within 48 hrs(by Tuesday) Carmen Turner 06/27/2015 10:13 elephone Encounter - Ginny Soriano - 06/25/2015 1120 EDT Called patient, confirmed OR date and pre op appt, changed phone number in the system. Telephone Encounter - Carmen Turner - 06/24/2015 1644 EDT Reason for Call: Procedure Summary/Symptoms: Per pt, has been waiting all day for a call about procedure. Pt made aware that Josie tried calling multiple times today but, pt's phone was busy. Pt stated that she has not been on the phone at all today. Pt made aware Josie will call her tomorrow. Carmen Turner 06/24/2015 16:44 documented in this encounter Plan of Treatment Not on filedocumented as of this encounter Visit Diagnoses Not on filedocumented in this encounter Care Teams Special Investigation Unit Investigator Relationship Specialty Start Date End Date Campos Lopes MD PCP - General 05/21/09 [address] [place] [address] documented as of this encounter
--- OUTSIDE RECORDS SUMMARY | 2022-06-18 00:27 | XMS_ITS | Encounter Summary ---
:1940 Author Organization [facility] Address [address] [place] [address] Care Team Providers Name Role Phone aCmpos Lopes MD Primary Care Provider Reason for Visit Reason Onset Date Comments Chronic Obstructive Pulmonary Disease 04/08/2014 New Patient Visit 04/08/2014 Encounter Details Date Type Department Care Team Description 04/08/2014 Telephone [facility] Self, Referral Chronic Obstructive Pulmonology & Critical Pulmo nary Disease; [facility] Patient Visit [address] [place] [address] Social History Tobacco Use Types Packs/Day Years [...] this encounter Miscellaneous Notes Telephone Encounter - Harshal Porras RN - 04/08/2014 9177 EDT Ms. Thomas referred to pulmonary by Dr Lopes. Patient has been scheduled with Dr Moulton on 04-15-14, pt and referring office have been notified of the appt. HARSHAL PORRAS RN Telephone Encounter - Brandi Lazo - 04/08/2014 1100 EDT Patient's pcp 's office calling to refer patient for COPD and will fax notes to [phone]. Please call pcp with a date and time. Thanks elephone Encounter - Brandi Lazo - 04/08/2014 0937 EDT Patient would like a call from a nurse regarding coming in as she has severe COPD. [place] and wants to [place] an attending only. Patient would like to discuss bronchial thermo plasy as well. Patient had pft's last week at [facility] (37%) Patient would like a call today. Thanks documented in this encounter Plan of Treatment Not on filedocumented as of this encounter Visit Diagnoses Not on filedocumented in this encounter Care Teams Bioinformatics Specialist Relationship Specialty Start Date End Date Campos Lopes MD PCP - General 05/21/09 [address] [place] [address] documented as of this encounter
--- OUTSIDE RECORDS SUMMARY | 2022-06-18 00:27 | XMS_ITS | Encounter Summary ---
:1940 Author Organization [facility] Address [address] [place] [address] Care Team Providers Name Role Phone Campos Lopes MD Primary Care Provider Reason for Visit Reason Comments Urinary Frequency Dysuria Encounter Details Date Type Department Care Team Description 12/30/2014 Office Visit [facility] Adalberto Carey (in terstitial cystitis) (Primary Dx); Urology - Medical MD Arturo Frequency of urination; Office Building [address] [place] [address] [address] [place] [address] Pavili, [place] [address] (Wo rk) Social History Tobacco [...] as of this encounter Discharge Diagnoses Diagnosis 595.1 CHR INTERSTIT CYSTITIS[ICD-9-CM] documented in this encounter Ordered Prescriptions Prescription Sig Dispensed Refills Start Date End Date mirabegron 25 mg tablet Take 25 mg by mouth 30 Tab 11 07/11/2017 extended release 24 daily hrIndications: Frequency of urination documented in this encounter Discharge Disposition Disposition Code Departure Means Destination Auto Discharge documented in this encounter Progress Notes Adalberto Carey MD - 12/30/2014 3347 EDT Subjective: Patient ID: Maureen Baez is an 74 y.o. female. Maureen Baez is seen in the office today for Urinary Frequency; and Dysuria. Chief Complaint Patient presents with ??? Urinary Frequency ??? Dysuria HPI Has had a variety of urethral and voiding symptoms for years, primarily urgency/frequency without UTI. Has seen Dr Avalos, Kip and Freddie in the past. Had full w/u in the past with Dr Avalos, short of hydrodistension, which the pt deferred. Had bladder instillations x7 with Dr Avalos in the past. 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 Now still has urgency/frequency which seems to only be helped by pyridium now. Uses either detrol orvesicare at times for frequency. Takes these for nocturia primarily- urge without much voiding. Takes about half the time. Some hesitancy with voiding, but tests have always been normal. No stones ever. No recent UTIs, and in the past UTI symptoms have usually been neg UCx. No GH. Only has leak at times with quick movemnt- rare, no pad. Patient Active Problem List Diagnosis ??? Hypertension ??? Tremor ??? Vulvodynia ??? Nontoxic multinodular goiter Past Medical History Diagnosis Date ??? Thyroid disease suppressed TSH; nml T4 and T3 No past surgical history on file. No family history on file. Social History Substance Use Topics ??? Smoking status: Former Smoker -- 1.00 packs/day for 32 years Quit date: 08/19/1995 ??? Smokeless tobacco: Never Used ??? Alcohol Use: Yes Comment: very rare Current Outpatient Prescriptions on File Prior to Visit Medication Sig Dispense Refill ??? albuterol (PROAIR HFA) 90 mcg/actuation inhaler Inhale 1-2 Puffs as directed every 6 hours as needed for Wheezing. ??? atenolol (TENORMIN) 50 mg tablet Take [...] every 8 hours as needed for Pain. No current facility-administered medications on file prior to visit. Allergies Allergen Reactions ??? Ciprofloxacin Other (See Comments) Ectopic heart beats ??? Epinephrine tachycardia ??? Iodine And Iodide Containing Products Hives Review of Systems Constitutional: Negative for fever, chills and diaphoresis. Gastrointestinal: Negative for nausea and abdominal pain. Genitourinary: Positive for urgency and frequency. Negative for dysuria, hematuria and flank pain. - See HPI Objective: There were no vitals taken for this visit. Physical Exam Abdominal: There is no tenderness. Genitourinary: Vagina normal. Pelvic exam was performed with patient supine. No erythema or tenderness in the vagina. No vaginal discharge found. Urethral meatus- Normal Urethral hypermobility- Absent Cystocele- Absent Vaginal atrophy- Present, mild No visits with results within 1 Day(s) from this visit. Latest known visit with results is: Results Only on 08/23/2014 Component Date Value Range Status ??? Pathology Report: 08/23/2014 Final Value:SURGICAL PATHOLOGY REPORT Reports generated via electronic interface contain original data; however they are lacking the format of the original report. Caution should be taken when reading/interpreting unformatted reports. Name: MAUREEN BAEZ : 1940 (Age: 74) F Collect Date: 08/23/2014 Location: [facility] Receive Date: 08/24/2014 Provider: ZANDRA LEONE MD Copy to: Final Pathologic Diagnosis: A. ENDOCERVIX/LOWER UTERINE SEGMENT, POLYP, POLYPECTOMY: - Fragments of benign endometrial polyp(s) with focal cystic atrophy. - No cytologic atypia. B. ENDOMETRIUM, CURETTAGE: - Scant superficial strips of inactive to weakly proliferative endometrium with tubal metaplasia. - Scant fragments of benign endocervical tissue and squamous metaplasia. Document reviewed and electronically signed by: DAYANARA HALE MD Report Date: 08/28/2014 10:43 By the signature above, the attending physician certifies that he/she has personally conducted a gross and/or microscopic examination of the described specimens and rendered or confirmed the above diagnosis. Specimen(s) Received: A. Endocervical polyp B. Endometrial curettings (scant tissue recovered) Clinical History: A. Might be an endometrial polyp; 2 small fragments of tissue believed to represent the stalk of the polyp; postmenopausal bleeding; large cervical polyp on preop exam Gross Description: A. Received in formalin labelled with proper patient identification (initials E, B) and endocervical polyp, might be endometrial polyp, two small fragments of tissue believed to be stalk of polyp is a pink-stuart focally red polypoid tissue (5.0 x 2.6 x 1.0 cm) as well as two pink-stuart irregular tissue fragments (0.7 x 0.5 x 0.1 cm in 2.8 x 1.0 x 0.3 cm). The margin of the polypoid piece is inked blue, this piece is sectioned and entirely submitted in A1-A5 and the remaining fragments are submitted in A6. B. Received in formalin labelled with proper patient identification (initials E, B) and endometrial curettings, scant tissue removed is an aggregate of stuart-red tissue fragments (0.6 x 0.4 x 0.2 cm). Submitted in toto in B1. Sruthi Vega 08/26/2014 08:13 AM End of Report PSA: No results found for this basename: PSA BMP: No results found for this basename: na, k, cl, CO2, bun, creatinine, calcium, calcca, mg, phos, labalbu Assessment / Plan: 1. IC (interstitial cystitis) - likely diagnosis, but emphasized with the pt the difficulty of confirming this diagnosis- a dx of exclusion to some degree - has not benefited from meds or bladder washes in the past - option of elmiron PO, but long course for uncertain effect for her - for hydrodistension- had been the plan with Dr Avalos in the past and MAY help her sx - also can be diagnostic for bladder volume 2. Frequency of urination - she feels all antispasmodics (detrol, vesicare, oxybutinin) have not helped her - try myrbetriq- different mechanism 3. Dysuria - not true pain - pyridium prn, but hope hydrodistension will help her Other Orders Placed This Visit Procedures ??? POCT Urine Dipstick Adalberto Carey MD documented in this encounter Plan of Treatment Not on filedocumented as of this encounter Visit Diagnoses Diagnosis IC (interstitial cystitis) - Primary Chronic interstitial cystitis Frequency of urination Urinary frequency Dysuria documented in this encounter Historical Medications This list may reflect changes made after this encounter. Medication Sig Dispensed Refills Start Date End Date tiotropium (SPIRIVA WITH Inhale 18 mcg as 0 07/11/2017 HANDIHALER) 18 mcg directed daily. inhalation capsule Reported on 01/05/2017 added in this encounter Care Teams Plumbing Engineering Draftsperson Relationship Specialty Start Date End Date Campos Lopes MD PCP - General 05/21/09 [address] [place] [address] documented as of this encounter
--- OUTSIDE RECORDS SUMMARY | 2022-06-18 00:27 | XMS_ITS | Encounter Summary ---
:1940 Author Organization [facility] Address [address] [place] [address] Care Team Providers Name Role Phone Campos Lopes MD Primary Care Provider Encounter Details Date Type Department Care Team Description 02/17/2010 Abstract [facility] Pelvic Melina Avalos, HTN (hypertension); Medicine and Reconstructive MD Tremor; Surgery - Medical Office [address] [place] [address] Vulvodynia [place] [phone] 8 [facility] [phone] [place] [address] (Work) [phone] Social History Tobacco Use Types Packs/Day Years Used Date Never Assessed Sex Assigned at Date Recorded Not on file documented as of this encounter Plan of Treatment Not on filedocumented as of this encounter Visit Diagnoses Diagnosis HTN (hypertension) Unspecified essential hypertension Tremor Abnormal involuntary movements Vulvodynia Vulvodynia, unspecified documented in this encounter Historical Medications This list may reflect changes made after this encounter. Medication Sig Dispensed Refills Start Date End Date ibuprofen (MOTRIN) 200 mg Take 4 Tabs by mouth 0 tablet every 8 hours as needed for Pain. metronidazole (FLAGYL) Take by mouth. As 0 03/14/2012 500 mg tablet directed trimethoprim (TRIMPEX) Take 100 mg by mouth 0 04/29/2010 100 mg tablet daily. tolterodine (DETROL LA) 4 Take 4 mg by mouth 0 03/22/2011 mg ER capsule daily. ESTRADIOL (ESTRACE VAGL) Place vaginally once 0 08/19/2010 a week. atenolol (TENORMIN) 25 mg Take 25 mg by mouth 0 08/19/2010 tablet daily as needed. added in this encounter Care Teams Hand I Blocker Relationship Specialty Start Date End Date Campos Lopes MD PCP - General 05/21/09 [address] [place] [address] documented as of this encounter
--- OUTSIDE RECORDS SUMMARY | 2022-06-18 00:27 | XMS_ITS | Encounter Summary ---
:1940 Author Organization [facility] Address [address] [place] [address] Care Team Providers Name Role Phone Campos Lopes MD Primary Care Provider Encounter Details Date Type Department Care Team Description 12/12/2009 Results Only [facility] Pelvic Melina Patel MD Medicine and Reconstructive [address] [place] Surgery - Medical Office [place] [phone] [address] [facility] [place] [address] [phone] Social History Tobacco Use Types Packs/Day Years Used Date Never Assessed Sex Assigned at Date Recorded Not on file documented as of this encounter Plan of Treatment Not on filedocumented as of this encounter Procedures Procedure Name Priority Date/Time Associated Diagnosis Comme nts BACTERIAL CULTURE, Routine 12/12/2009 12:51 Resul ts for this URINE EST procedure are i n the results section. documented in this encounter Results BACTERIAL CULTURE, URINE (12/12/2009 12:51 EST) Specimen Description Urine [facility] Result Less than 10,000 CFU/ml [facility] Mixed gram positive growth Report Status Final [facility] 12/13/2009 Specimen Urine (substance) Performing Organization Address City/State/ZIP Code Phon e Number [facility] [address] [place] [address] SERVICES [facility] [address] [place] [address] documented in this encounter Visit Diagnoses Not on filedocumented in this encounter Care Teams Occasional Caregiver Relationship Specialty Start Date End Date Campos Lopes MD PCP - General 05/21/09 [address] [place] [address] documented as of this encounter
--- OUTSIDE RECORDS SUMMARY | 2022-06-18 00:27 | XMS_ITS | Encounter Summary ---
:1940 Author Organization [facility] Address [address] [place] [address] Care Team Providers Name Role Phone Campos Lopes MD Primary Care Provider Reason for Visit Reason Comments New Patient Visit previous patient of Dr. Zuleyka schmitz here to follow up with you re hormones Encounter Details Date Type Department Care Team Description 11/15/2011 Office Visit [facility] Freddie, Belgica Lindo y frequency Pelvic Medicine and MD Julia (Primary Dx) Reconstructive Surgery - [address] [place] [address] Medical [place] [address] Medical [address] [place] [address] [address] [place] [phone] Social History Tobacco Use Types Packs/Day Years [...] Sign Reading Time Taken Comments Blood Pressure 170/74 11/15/2011 1506 EST Pulse 101 11/15/2011 1506 EST Temperature - - Respiratory Rate - - Oxygen Saturation - - Inhaled Oxygen Concentration - - Weight - - Height 167.6 cm (5' 6) 11/15/2011 1445 EST Body Mass Index - - documented in this encounter Discharge Disposition Disposition Code Departure Means Destination Auto Discharge documented in this encounter Progress Notes Beligca Frazier MD - 11/15/2011 1510 EST Pt with persistent urinary frequency and urgency, urethral burning and external itching. Failed Detrol, Pelvic floor PT with Estim, has had normal cystoscopy. Now has stress incontinence. Dr. Avalos recommended cystoscopy with hydrodistention. Pt reluctant due to anesthesia risk. Pt has recently started taking Benedryl for runny nose, noted less frequency and urgency, but causes drowsiness. Takes non drowsy antihistamine during the day. Pt thinks she may be hyperthyroid, despite normal thyroid function tests. Advised pt that I agree with Dr. Avalos's recommendation for Cystoscopy and hydrodistention. Pt to f/u prn. Spent over 1 hour with patient discussing previous and current care. Marion Alicea LPN - 11/15/2011 1504 EST Results for orders placed in visit on 11/15/11 POCT URINE DIPSTICK Component Value Range Color YELLOW Clarity, UA Clear Glucose Neg Neg Bilirubin Neg Neg Ketones Trace (*) Neg Specific [place] 1.025 1.001 - 1.035 Blood Trace (*) Neg pH 5.0 4.6 - 8.0 Protein Neg Neg Urobilinogen 0.2 0.2 - 1.0 (E.U./dl) Nitrite Neg Neg Leuk Esterase Neg Neg Tech ID [id number] documented in this encounter Plan of Treatment Not on filedocumented as of this encounter Procedures Procedure Name Priority Date/Time Associated Diagnosis Comme nts BACTERIAL CULTURE, Routine 11/15/2011 14:58 Urinary frequency Results for this URINE EST procedure are i n the results section. POCT URINE Routine 11/15/2011 14:54 Urinary frequency Result s for this DIPSTICK, CLINITEK EST procedure are in the results section. documented in this encounter Results BACTERIAL CULTURE, URINE (11/15/2011 14:58 EST) Specimen Description Urine [facility] Result Less than 10,000 [facility] CFU/ml Mixed gram positive growth Report Status 11/17/2011 Final [facility] Specimen Urine (substance) Performing Organization Address [facility] e Number [facility] [address] [place] [address] SERVICES [facility] [address] [place] [address] (ABNORMAL) POCT URINE DIPSTICK (11/15/2011 14:54 EST) Color YELLOW [facility] Clarity, UA Clear [facility] Glucose Neg Neg [facility] Bilirubin Neg Neg [facility] Ketones Trace (A) Neg [facility] Specific [place] 1.025 1.001 - 1.035 [facility] Blood Trace (A) Neg [facility] pH 5.0 4.6 - 8.0 [facility] Protein Neg Neg [facility] Urobilinogen 0.2 0.2 - 1.0 [facility]./[facility] Nitrite Neg Neg [facility] Leuk Esterase Neg Neg [facility] quill layer ID [id number]: [facility] Test performed at LAB the [facility] Specimen Urine (substance) Performing Organization Address [facility] e Number [facility] [address] [place] [address] SERVICES [facility] [address] [place] [address] documented in this encounter Visit Diagnoses Diagnosis Urinary frequency - Primary documented in this encounter Care Teams Learning Disabled Teacher Relationship Specialty Start Date End Date Campos Lopes MD PCP - General 05/21/09 [address] [place] [address] documented as of this encounter
--- OUTSIDE RECORDS SUMMARY | 2022-06-18 00:27 | XMS_ITS | Encounter Summary ---
:1940 Author Organization [facility] Address [address] [place] [address] Care Team Providers Name Role Phone Campos Lopes MD Primary Care Provider Reason for Visit Reason Onset Date Comments CT Scan 04/16/2014 Encounter Details Date Type Department Care Team Description 04/16/2014 Telephone [facility] Dedrick Moulton MD CT Scan Endocrinology - [id number] [place] [address] [phone] Social History Tobacco Use Types Packs/Day Years [...] this encounter Miscellaneous Notes Telephone Encounter - Megan Loja - 04/16/2014 9386 EDT Pt calling in regards to CT being scheduled for her. Made pt aware that this order was mailed to her. Pt was upset with this. Call was disconnected. documented in this encounter Plan of Treatment Not on filedocumented as of this encounter Visit Diagnoses Not on filedocumented in this encounter Care Teams Chief Guard Relationship Specialty Start Date End Date Campos Lopes MD PCP - General 05/21/09 [address] [place] [address] documented as of this encounter
--- OUTSIDE RECORDS SUMMARY | 2022-06-18 00:27 | XMS_ITS | Encounter Summary ---
:1940 Author Organization [facility] Address [address] [place] [address] Care Team Providers Name Role Phone Campos Lopes MD Primary Care Provider Encounter Details Date Type Department Care Team Description 05/14/2014 Orders Only [facility] Adalberto Carey y frequency Urology - Medical MD Arturo (Primary Dx) Office Building [address] [place] [address] [address] [place] [address] Pavili, [place] [phone] (Wo rk) Social History Tobacco Use Types [...] Primary documented in this encounter Care Teams Dimensional Engineer Relationship Specialty Start Date End Date Campos Lopes MD PCP - General 05/21/09 [address] [place], [place] [phone] documented as of this encounter
--- OUTSIDE RECORDS SUMMARY | 2022-06-18 00:27 | XMS_ITS | Encounter Summary ---
:1940 Author Organization [facility] Address [address] [place] [address] Care Team Providers Name Role Phone Campos Lopes MD Primary Care Provider Reason for Visit Reason Onset Date Comments Other 09/02/2010 Sruthi has an order t here for a nuclear med thyroid up take and scan. She needs to k now if treatment is needed. Encounter Details Date Type Department Care Team Description 09/02/2010 Telephone [facility] Thomas Brown, Other (Sruthi has an Endocrinology - Edgardo duncan MD order there for a [address], nuclear med thyroid up [place], [place] [address] [address]OB 500 take and scan. She [phone] [place] know [place] [phone] treatment is needed.) Social History Tobacco Use Types Packs/Day Years [...] this encounter Miscellaneous Notes Telephone Encounter - Carmen Turner - 06/15/2011 9449 EDT . documented in this encounter Plan of Treatment Not on filedocumented as of this encounter Visit Diagnoses Not on filedocumented in this encounter Care Teams Patent Agent Relationship Specialty Start Date End Date Campos Lopes MD PCP - General 05/21/09 [address] [place] [address] documented as of this encounter
--- OUTSIDE RECORDS SUMMARY | 2022-06-18 00:27 | XMS_ITS | Encounter Summary ---
:1940 Author Organization [facility] Address [address] [place] [address] Care Team Providers Name Role Phone Campos Lopes MD Primary Care Provider Encounter Details Date Type Department Care Team Description 01/02/2013 Results Only [facility] Carson Bocanegra MD Laboratory Services - [address] [place] [address] [place] [address] [address] [facility] [place], [place] [phone] Social History Tobacco Use Types Packs/Day Years [...] Name Priority Date/Time Associated Diagnosis Comme nts CYTOPATHOLOGY Routine 01/02/2013 0:00 EDT Results for this procedure are i n the results section . documented in this encounter Results CYTOPATHOLOGY (01/02/2013 0:00 EDT) Pathology Report: CYTOPATHOLOGY REPORT [facility] Reports generated via electronic interface contain shari ginal data; however they are lacking the format of the original re port. Caution should be taken when reading/interpreting unfo rmatted reports. Name: ? MAUREEN BAEZ ? Accession #: ? [id number] : ? 1940 (Age: 72) ??F ?Collect Date: ? 12/09 Location: ? [facility] ? Receive Date: ? 01/03/2013 Provider: ? HERMES BOCANEGRA MD Copy to: ? CYTOLOGIC DIAGNOSIS: ? Urine, voided, cytologic evaluation: 1. ?Rare cluste rs of urothelial cells present; favor reactive-type changes. ??See comment. 2. ? Rare red blood cell casts identified. ? COMMENT: ? Rare clusters of urot helial cells with degenerative features are identified in this voided urine sample. ??The urothelial cells lloyd ve low nuclear to cytoplasmic ratios and show reactive-type features inc luding vacuolated cytoplasm. ??In addition, ra re red blood cell casts are noted. ??(Dr. Read)/[facility] Document reviewed and electronically signed by: ? CAN READ MD Report Date: ??01/03/2013 17:12 By the signature above, the attending physician certif ies that he/she has personally conducted a gross and/or microscopic examin ation of the described specimens and rendered or confirmed the above diagnosi s. Specimen Type: ? Urine, Voided Clinical History: ? Pelvic pain; frequency. ??clinical diagnosis co de: ??788.41 ? Gross Description: ? 60ccs of clear yellow fluid (Cytolyt added) were received and processed by selective cellular enhancement technique. ? End of Report Specimen Performing Organization Address City/State/ZIP Code Phon e Number [facility] [address] [place] [address] SERVICES [facility] [address] [place] [address] documented in this encounter Visit Diagnoses Not on filedocumented in this encounter Care Teams Hand Mica Plate Layer Relationship Specialty Start Date End Date Campos Lopes MD PCP - General 05/21/09 [address] [place], [place] [phone] documented as of this encounter
--- OUTSIDE RECORDS SUMMARY | 2022-06-18 00:27 | XMS_ITS | Encounter Summary ---
:[address] [facility] Address [address] [place] [address] Care Team Providers Name Role Phone Campos Lopes MD Primary Care Provider Encounter Details Date Type Department Care Team Description 04/17/2014 Orders Only [facility] Dedrick Moulton MD Dyspnea (Primary Dx) Sleep Program - [address] [place], [place] [phone] [place] [address] (W ork) Snyder [address] [address] Social History Tobacco Use Types Packs/Day Years [...] y documented in this encounter Care Teams Melter Supervisor Oxygen Furnace Relationship Specialty Start Date End Date Campos Lopes MD PCP - General 05/21/09 [address] [place], [place] [phone] documented as of this encounter
--- OUTSIDE RECORDS SUMMARY | 2022-06-18 00:27 | XMS_ITS | Encounter Summary ---
:1940 Author Organization Health system Address [address] [place] [address] Care Team Providers Name Role Phone Campos Lopes MD Primary Care Provider Reason for Visit Reason Onset Date Comments Other 11/26/2010 Encounter Details Date Type Department Care Team Description 11/26/2010 Telephone [facility] Pelvic Melina Patel MD Other Medicine and Reconstructive [address] [place] [address] Surgery - Medical Office [place] [phone] 1 [facility] [place] [address] [phone] Social History Tobacco Use Types Packs/Day Years [...] Start Date End Date conjugated estrogens Place 0.63 g 1 Tube 11 11/26/2010 0.625mg/G (PREMARIN) vaginally twice a vaginal cream week. At bed time for 7 days, then at bedtime twice a week documented in this encounter Miscellaneous Notes Telephone Encounter - LineClaudia RN - 11/26/[address] Avalos- pt. may switch. Message to Dr. Avalos; Selam' insurance plan does not cover Estrace vaginal cream however Premarin cream is allowed. Would you like me to change Maureen over to Premarin? Claudia Haq R.N.,CJonathanUJonathanRHoracio. Nurse Clinician [facility] phone: fax: e-mail: [email or web address] elephone Encounter - Claudia Haq RN - 11/26/2010 1143 EST Suni TREVIZO [phone] pt. ID [id number] signed by Claudia Haq RN at 11/26/2010 11:43 EST Telephone Encounter - Lisa Fonseca - 11/26/2010 1125 EST Patient will need an auth for estrace. documented in this encounter Plan of Treatment Not on filedocumented as of this encounter Visit Diagnoses Not on filedocumented in this encounter Discontinued Medications Medication Sig Discontinue Reason Start Date End Date estradiol (ESTRACE) Place vaginally. Insurance does not 11/16/2010 11/26/2010 0.01 % (0.1 mg/g) Per vagina 2 x cover vaginal cream weekly documented as of this encounter Care Teams Bond Clerk Relationship Specialty Start Date End Date Campos Lopes MD PCP - General 05/21/09 [address] [place] [address] documented as of this encounter
--- OUTSIDE RECORDS SUMMARY | 2022-06-18 00:27 | XMS_ITS | Encounter Summary ---
:1940 Author Organization [facility] Address [address] [place] [address] Care Team Providers Name Role Phone Campos Lopes MD Primary Care Provider Reason for Visit Reason Onset Date Comments New Patient Visit 10/14/2014 Called/ scheduled Encounter Details Date Type Department Care Team Description 10/14/2014 Telephone [facility] Tye Navarro MD New Patient Visit Surgical Oncology - [address] [place] [address] (Called/ scheduled) [facility], [address], [address] [place], [place] [address] [place] [address] [phone] (Wo rk) Social History Tobacco Use [...] this encounter Miscellaneous Notes Telephone Encounter - [place], Shanell - 10/14/2014 1420 EST I spoke with Maureen and scheduled the appointment with Dr. Tye Navarro on Tuesday, 10/28 at 1:30pm. New patient paperwork to be sent out today. documented in this encounter Plan of Treatment Not on filedocumented as of this encounter Visit Diagnoses Not on filedocumented in this encounter Care Teams Windshield Wiper Repairer Relationship Specialty Start Date End Date Campos Lopes MD PCP - General 05/21/09 [address] [place] [address] documented as of this encounter
--- OUTSIDE RECORDS SUMMARY | 2022-06-18 00:27 | XMS_ITS | Encounter Summary ---
:1940 Author Organization [facility] Address [address] [place] [address] Care Team Providers Name Role Phone Campos Lopes MD Primary Care Provider Reason for Visit Reason Onset Date Comments Other 10/28/2014 Encounter Details Date Type Department Care Team Description 10/28/2014 Telephone [facility] Cindy Olea RN Other Surgical Oncology - Main [address] [place] [address] [address] [place] [address] Social History Tobacco Use Types Packs/Day Years [...] Miscellaneous Notes Telephone Encounter - Deepti Olea - 10/28/2014 1047 EST Spoke to Maureen ,she is cancelling today due to weather. DEEPTI OLEA RN documented in this encounter Plan of Treatment Not on filedocumented as of this encounter Visit Diagnoses Not on filedocumented in this encounter Care Teams Livestock Trucker Relationship Specialty Start Date End Date Campos Lopes MD PCP - General 05/21/09 [address] [place] [address] documented as of this encounter
--- OUTSIDE RECORDS SUMMARY | 2022-06-18 00:28 | XMS_ITS | Encounter Summary ---
:1940 Author Organization [facility] Address [address] [place] [address] Care Team Providers Name Role Phone Campos Lopes MD Primary Care Provider Encounter Details Date Type Department Care Team Description 09/08/2001 Hospital Encounter [facility] MD 111 [facility] [address] [place] [address] [place] [address] Social History Tobacco Use Types Packs/Day Years [...] / COVID-19? documented as of this encounter Plan of Treatment Not on filedocumented as of this encounter Visit Diagnoses Not on filedocumented in this encounter Care Teams Flooring Machine Operator Relationship Specialty Start Date End Date Campos Lopes MD PCP - General 05/21/09 [address] [place], [place] [phone] documented as of this encounter
--- OUTSIDE RECORDS SUMMARY | 2022-06-18 00:28 | XMS_ITS | Encounter Summary ---
:1940 Author Organization [facility] Address [address] [place] [address] Care Team Providers Name Role Phone Campos Lopes MD Primary Care Provider Encounter Details Date Type Department Care Team Description 06/25/2009 Orders Only [facility] Pelvic Melina Patel MD Medicine and Reconstructive [address] [place] Surgery - Medical Office [place] [phone] 7 [facility] [place] [address] [phone] Social History Tobacco Use Types Packs/Day Years Used Date Never Assessed Sex Assigned at Date Recorded Not on file documented as of this encounter Plan of Treatment Not on filedocumented as of this encounter Procedures Procedure Name Priority Date/Time Associated Comments Diagnosis RAD US RETROPERITONEAL 09/03/2009 12:07 R esults for this COMPLETE EST procedure are i n the results section. documented in this encounter Results RAD US RETROPERITONEAL COMPLETE (09/03/2009 12:07 EST) Anatomical Region Laterality Modality Other Specimen [...] Organization Address City/State/ZIP Code Phon e Number [facility] documented in this encounter Visit Diagnoses Not on filedocumented in this encounter Care Teams Traffic Counter Relationship Specialty Start Date End Date Campos Loeps MD PCP - General 05/21/09 [address] [place] [address] documented as of this encounter
--- OUTSIDE RECORDS SUMMARY | 2022-06-18 00:28 | XMS_ITS | Encounter Summary ---
:[address] [facility] Address [address] [place] [address] Care Team Providers Name Role Phone Unavailable Primary Care Provider Unavailable Encounter Details Date Type Department Care Team Description 09/12/2001 Hospital Encounter [facility] Jaxson Lopes Maple conversion MD 111 [facility] [address] [place] [address] [place] [address] Social History Tobacco Use Types Packs/Day Years Used Date Never Assessed Sex Assigned at Date Recorded Not on file documented as of this encounter Discharge Disposition Disposition Code Departure Means Destination Auto Discharge documented in this encounter Plan of Treatment Not on filedocumented as of this encounter Procedures Procedure Name Priority Date/Time Associated Comments Diagnosis SURGICAL PATHOLOGY Routine 07/17/2009 0:00 Result s for this EDT procedure are i n the results section. BACTERIAL CULTURE, Routine 06/09/2009 11:00 Resul ts for this URINE EDT procedure are i n the results section. UREAPLASMA PCR Routine 06/09/2009 10:34 Results f or this EDT procedure are i n the results section. MYCOPLASMA HOMINIS Routine 06/09/2009 10:34 Resul ts for this PCR-TEMP UNAVALABLE EDT procedur e are in the results section. CYTOPATHOLOGY Routine 06/09/2009 0:00 Results for this EDT procedure are i n the results section. documented in this encounter Results SURGICAL PATHOLOGY (07/17/2009 0:00 EDT) Pathology Report: SURGICAL PATHOLOGY REPORT ? [facility] Reports generated via electr onic interface contain original data; ? LAB however they are lacking the format of the original report. ? Caution should be taken when reading/interpreting unformatted reports. ? Name: ? ELZOHAIRY, AVERY RA L ? Accession #: ? [id number] ? : ? 1940 (Age: 69) ??F ? Collec t Date: ? 07/17/2009 ? Location: ? [facility] ? R eceive Date: ? 07/18/2009 ? Provider: RAMON S MIL MD ? Copy to: ? Final Pathologic Diagnosis: ? Skin/mucosa, inner ri ght labia minora, punch biopsy: ? - Epithelial hyperplasia and mild chronic inflammation. ??See microscopic and ? comment. ? Comment: ? Multiple sections of the biopsy were reviewed. ??The biopsy shows features ?? 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 ??There is mild chronic inflammation that has a relatively non-sp ecific pattern. ??There is no interface alteration to suggest lichen sclerosus or lichen planus. ??A primary eczematous dermatitis is ?? also less likely, given the relative lack of epidermal spongiosis. ??No fungal ?? organisms are identified by special stains. ??(Dr. Box)/chasidy ? Microscopic Description: ? Sections consist of a portion of skin/mucosa. ??The stratum corneum on the ?? cutaneous edge consists of a thin layer of compact keratin. ??The epithelium is ?? mildly hyperplastic with an accentuated rete ridge pattern in some areas. ??The ?? epithelium shows mild reacti ve nuclear changes, but generally matures in an ? library page fashion. ??Areas hav e a slightly thickened granular layer. ??There is no ?? appreciable spongiosis and t he interface is intact. ??In some areas, the ? underlying tissues have a pa tchy, moderately dense lymphocytic infiltrate. ? Additional, deeper sections show similar features. ??No fungal organisms are ? identified on sections prepa red with PAS-amylase stain. ??(Dr. Box)/chasidy ? Document reviewed and electr onically signed by: ? aKyla Box MD ? Report ??Date: 07/22/2009 15 :00 ? By the signature above, the attending physician certifies that he/she has ? personally conducted a gross and/or microscopic examination of the described ? specimens and rendered or co nfirmed the above diagnosis. ? Specimen(s) Received: ? 3.0 mm punch bx inner R labia minora ? Clinical History: ? Longstanding pruritus of inner labia minor. Absent on exam with white + red areas, R/O LS, LSC, other?; Clinical diagnosis code: 624.9, 698.1 ? Gross Description: ? Received in formalin labelled Maureen Thomas is a punch biopsy of stuart skin measuring 0.3 cm in jarad meter, 0.1 cm in thickness. ??The specimen is ? submitted entirely in one ny vandana. /mpl ? End of Report ? Specimen Performing Organization Address City/State/ZIP Code Phon e Number [facility] [address] [place] [phone] SERVICES [facility] [address] [place] [address] BACTERIAL CULTURE, URINE (06/09/2009 11:00 EDT) Pathologist Sig nature Specimen Description Urine [facility] Result No growth [facility] Report Status Final [facility] 06/10/2009 Specimen Performing Organization Address [facility] Phon e Number [facility] [address] [place] [address] SERVICES [facility] [address] [place] [address] CULTURE, UREAPLASMA UREALYTICUM (06/09/2009 10:34 EDT) Specimen Description Vagina [facility] Result [facility] No growth after 5 days ? Report Status [facility] FINAL [id number] ? Performed or Referred by: [facility] Dpt of Lab Med and Path, [address] ? [place] [address], Lab Dir: Mike Aguirre III, ? MD ? Specimen Other (qualifier value) Performing Organization Address [facility] Phon e Number [facility] [address] [place] [address] SERVICES [facility] [address] [place] [address] CULTURE, MYCOPLASMA HOMINIS (06/09/2009 10:34 EDT) Specimen Description Vagina [facility] Result [facility] No growth after 5 days ? Report Status [facility] FINAL [id number] ? Performed or Referred by: [facility] Dpt of Lab Med and Path, [address] ? [place] [id number], Lab Dir: Mike Aguirre III, ? MD ? Specimen Other (qualifier value) Performing Organization Address City/State/ZIP Code Phon e Number [facility] [address] [place] [address] SERVICES [facility] [address] [place] [address] CYTOPATHOLOGY (06/09/2009 0:00 EDT) Pathology Report: CYTOPATHOLOGY REPORT ? [facility] ? LAB Reports generated via electr onic interface contain original data; ? however they are lacking the format of the original report. ? Caution should be taken when reading/interpreting unformatted reports. ? Name: ? NESTOR, AVERY RA L ? Accession #: ? [id number] ? : ? 1940 (Age: 69) ??F ?Collect Date: ? 06/09/2009 ? Location: ? [facility] ? Receive Date: ? 06/10/2009 ? Provider: ? MAYELIN A LACO MBE MD ? Copy to: ? CYTOLOGIC DIAGNOSIS: ? Urine, catheterized, cytologic evaluation: ? 1. ?No malignan t cells identified. ? 2. ? Reactive urothelial cells with abundant lubricant present in the ? background. ? Document reviewed and electr onically signed by: ? Siri Patel MD ? Report Date: ??06/11/2009 17 :25 ? By the signature above, the attending physician certifies that he/she has ? personally conducted a gross and/or microscopic examination of the described ? specimens and rendered or co nfirmed the above diagnosis. ? Specimen Type: ? Urine, Catheterized ? Clinical History: ? Clinical diagnosis co de: ??599.70 ? Gross Description: ? 10cc' s of cloudy yel low fluid were received and processed by selective ? cellular enhancement techniq ue. ? End of Report ? Specimen Performing Organization Address City/State/ZIP Code Phon e Number [facility] [address] [place] [address] SERVICES [facility] [address] [place] [address] documented in this encounter Visit Diagnoses Not on filedocumented in this encounter
--- OUTSIDE RECORDS SUMMARY | 2022-06-18 00:28 | XMS_ITS ---
:1940 Author Organization [facility] Address [address] [facility], [address] [place] [address] Care Team Providers Name Role Phone Dixon Eli Unavailable Unavailable PROBLEMS Type Condition ICD9-CM Code GAG48-SU Code Onset Condition SNO MED Code Dates Status Problem Pelvic pain 625.9 Active 71522781 Problem Chronic 493.20 Active 280945089 obstructive asthma, unspecified Problem Vaginal discharge 623.5 Active 27 2463624 Problem Hyperthyroid 242.90 Active 8568855 7 Problem HTN 401.1 Active 95737908 ALLERGIES Substance Reaction Event Type Date Status Iodine Unknown Drug Allergy Apr, Active EPINEPHrine Unknown Drug Allergy Apr, Active ENCOUNTERS Encounter Location Date Diagnosis [facility] [address] [place] [address], [address] Apr, 2014 Vagi nal discharge 623.5 ; [address] [place], [place] Pelvic pa in 625.9 ; [place] [phone] 401.1 ; Hyperthy roid 242.90 and Chronic obst ructive asthma, unspecif ied 493.20 IMMUNIZATIONS No Known Immunizations SOCIAL HISTORY Qualifiers Date Former Smoker REASON FOR REFERRAL FUNCTIONAL STATUS PLAN OF CARE Activity Details Follow Up prn Reason: VITAL SIGNS Blood pressure systolic 122 2014-04-18 Blood pressure diastolic 80 2014-04-18 MEDICATIONS Medication Instructions Dosage Frequency Start End Date Duration Stat us Date Atenolol 25 MG Orally Once a day 1 tablet 24h Active Estrace 0.1 Active MG/GM Singulair Active Vitamin D Active ProAir HFA 108 Inhalation every 2 puffs as 4h Active (90 Base) 4 hrs needed MCG/ACT PROCEDURES Procedure Date Ordered Result Body Site Wet smear April 18, 2014 ASSAY OF BODY FLUID ACIDITY April 18, 2014 RESULTS No Results REASON FOR VISIT New patient, pelvic pain, new, Urinary symptoms, prolapse?, new, Urinary symptoms, prolapse? Insurance Providers [facility] Member Patient Patient Patient Patient Patient Subscriber Subscriber Subscriber Group Insurance Plan Plan Plan Plan ID Relationship Address Phone Name Date of ID Name Date of No Type Insurance Insurance Insurance Coverage to Subscriber Address Phone Name Dates MEDICARE [phone] MEDICARE self Maureen [id number] [facility] [id number] [facility] [place] [address] MEDICAID [phone] MEDICAID self Maureen [id number] [place] [id number] [place] [address] y
--- OUTSIDE RECORDS SUMMARY | 2022-06-18 00:28 | XMS_ITS | Encounter Summary ---
:1940 Author Organization [facility] [place] [address] Care Team Providers Name Role Phone Campos Lopes MD Primary Care Provider Encounter Details Date Type Department Care Team Description 07/27/2019 External Results Medical Records Provider, [place] [address] Social History Tobacco Use Types Packs/Day Years Used Date Never Assessed Sex Assigned at Date Recorded Not on file documented as of this encounter Plan of Treatment Not on filedocumented as of this encounter Procedures Procedure Name Priority Date/Time Associated Diagnosis Comme [facility] SURGICAL PATHOLOGY Routine 07/27/2019 Results f or this SCAN procedure are i n the results section . documented in this encounter Results Scan Doc: Surgical Pathology (07/27/2019) Narrative This result has an attachment that is no t available. Historical Provider MD [facility] SCAN EXT ORDR/RSLT documented in this encounter Visit Diagnoses Not on filedocumented in this encounter Care Teams Injection Mold Tooling Technician Relationship Specialty Start Date End Date Campos Lopes MD PCP - General 09/01/10 [address] [place] [address] documented as of this encounter
--- OUTSIDE RECORDS SUMMARY | 2022-06-18 00:28 | XMS_ITS | Encounter Summary ---
:1940 Author Organization [facility] [place] [address] Care Team Providers Name Role Phone Campos Lopes MD Primary Care Provider Encounter Details Date Type Department Care Team Description 03/09/2016 [place] [address] Social History Tobacco Use Types Packs/Day Years Used Date Never Assessed Sex Assigned at Date Recorded Not on file documented as of this encounter Medications at Time of Discharge Medication Sig Dispensed Refills Start Date End Date mometasone (ELOCON) 0.1 % 1 Appl(s), Top, 0 07/22 ointment 1-2X/day prn ATENOLOL ORAL 0 07/15/2008 FLUTICASONE PROPIONATE 0 07/15/2008 (FLOVENT HFA INHL) PIRBUTEROL ACETATE (MAXAIR 0 8 AUTOHALER INHL) documented as of this encounter Plan of Treatment Not on filedocumented as of this encounter Procedures Procedure Name Priority Date/Time Associated Diagnosis Comme [facility] SURGICAL PATHOLOGY Routine 03/09/2016 12:00 PM Juliette dutton for this REPORT EDT procedure are i n the results section. documented in this encounter Results Surgical Pathology Report (03/09/2016 12:00 PM EDT) [facility] Time [facility] Surgical [id number] ?Location: [facility] Report The signing pathologist has (i) examined the relevant preparation(s) for the [facility]ORIAL specimen(s) and (ii) rendered or confirmed the diagnosis(es) . [facility] . ?Surgic al Pathology DIAGNOSIS Skin, left sorto, shave ?? biopsy: - ??BASAL CELL CARCINOMA, extending to t he peripheral and deep specimen edges. 03/11/16 DLD 03/11/16 Verified by: ? Moriah GIPSON, Rudy Jones ?Dermatopathologist ?(Electronic Signature ) The attending pathologist whose signature appears on this re port has reviewed all diagnostic slides and has edited the gross and/ or microscopic portion of the report in sapna dering the final pathologic diagnosis. CLINICAL INFORMATION Specimen Submitted: A - Skin, L sorto, shave bx (1) Clinical History: 8 mm pink plaque Clinical Diagnosis: BCC SPECIMEN PROCESSING A - Labeled/Fixative: Left sorto, formalin. Quantity/Size: Single, 1.1 x 0.8 x 0.1 cm. Tissue Description: Shave of a stuart-white, crusted skin plaqu e. Sections/Processing: Inked and trisected. (T1) ??sns Specimen (Source) Anatomical Collection Method Collection Time Re ceived Time Location / / Volume Laterality 03/09/2016 12:00 PM EDT Harriet Fuentes MD PATHOLOGY/CYTOLOGY ORDERABLE S Performing Organization Address City/State/[place] [address] documented in this encounter Visit Diagnoses Not on filedocumented in this encounter Care Teams Medical Legal Investigator Relationship Specialty Start Date End Date Campos Lopes MD PCP - General 09/01/10 [address] [place] [address] documented as of this encounter
--- OUTSIDE RECORDS SUMMARY | 2022-06-18 00:28 | XMS_ITS | Clinical Summary ---
:1940 Author Organization [facility] [place] [address] Care Team Providers Name Role Phone Campos Lopes MD Primary Care Provider Allergies Active Allergy Reactions Severity Noted Date Comments Iodine And Iodide Containing Products Medium CIS - Hives Medications Medication Sig Dispensed Refills Start Date End Date Status ATENOLOL ORAL 0 07/15/2008 Activ e FLUTICASONE PROPIONATE 0 07/15/2008 Active (FLOVENT HFA INHL) PIRBUTEROL ACETATE 0 07/15/2008 Active (MAXAIR AUTOHALER INHL) mometasone (ELOCON) 0.1 1 Appl(s), Top, 0 07/22/2008 Active % ointment 1-2X/day prn Social History Tobacco Use Types Packs/Day Years Used Date Never Assessed Sex Assigned at Date Recorded Not on file Plan of Treatment Health Maintenance Due Date Last Done Comments Covid-19 Vaccine (#1) 1945 Hepatitis C Screening 02/03/1960 Tdap adult 1961 Tetanus vaccine 1961 Zoster vaccine (1 of 2) 02/03/1992 Advance Directive 1997 Bone Density Scan 2007 Pneumoccocal Vaccine: 65+ (1 - PCV) 2007 Influenza (Flu) vaccine (1 of 1 - Influenza standard 06/10/2022 series) Insurance Payer Benefit Plan / Subscriber ID Effective Dates Phone Addre ss Type Group MEDICARE MEDICARE PART [id number] 2007-[place] [phone] [place] [id number] [place] [id number] 2019-Pres [phone] [address] [place] [address] Care Teams Diplomatic Interpreter Relationship Specialty Start Date End Date Campos Lopes MD PCP - General 09/01/10 [address] [place], [place] [phone]
--- OUTSIDE RECORDS SUMMARY | 2022-06-18 00:28 | XMS_ITS | Encounter Summary ---
:1940 Author Organization [facility] [place] [address] Care Team Providers Name Role Phone Campos Lopes MD Primary Care Provider Encounter Details Date Type Department Care Team Description 04/24/2016 Interpretation Only [facility] Unknown [address] [place] [address] Social History Tobacco Use Types Packs/Day Years Used Date Never Assessed Sex Assigned at Date Recorded Not on file documented as of this encounter Plan of Treatment Not on filedocumented as of this encounter Procedures Procedure Name Priority Date/Time Associated Diagnosis Comme nts XR KNEE AP LAT Routine 04/24/2016 6:37 PM Results for this AXIAL PATELLA RIGHT EDT procedur e are in the results section. documented in this encounter Results XR Knee 3 Views Right (04/24/2016 6:37 PM EDT) Anatomical Region Laterality Modality Knee Right Radiographic Imaging Specimen (Source) Anatomical Collection Method Collection Time Re ceived Time Location / / Volume Laterality 04/24/2016 6:37 PM EDT Narrative 04/24/2016 6:37 PM EDT [facility] Historical Result Principal Quality Control Inspector Heading: ??DELL ?GENNARO RIGHT KNEE, THREE VIEWS: HISTORY: Pain and swelling in the latera l side of the knee to patella for 3 days. No injury. Hurts when walking. FINDINGS: No distinct or definite acute traumatic bony abnormality is appreciated. Mild degenerative spurring at the patellofemo ral joint and lateral compartment is noted. Mild relative medial joint space narrowing is seen. If further evaluation is needed, MRI may be useful. IMPRESSION: Mild degenerative changes. Dictated by: ??Dell Lai M.D. Electronically Signed By: DELL LAI Released By: DELL LAI Date: ??04/30/2016 19:47 Procedure Note Unknown - 06/11/2020Formatting of this n ote might be different from the original. [facility] Historical Result Principal Quality Control Inspector Heading: DELL LAI RIGHT KNEE, THREE VIEWS: HISTORY: Pain and swelling in the latera l side of the knee to patella for 3 days. No injury. Hurts when walking. FINDINGS: No distinct or definite acute traumatic bony abnormality is appreciated. Mild degenerative spurring at the patellofemo ral joint and lateral compartment is noted. Mild relative medial joint space narrowing is seen. If further evaluation is needed, MRI may be useful. IMPRESSION: Mild degenerative changes. Dictated by: Dell aLi M.D. Electronically Signed By: DELL LAI Released By: DELL LAI Date: 04/30/2016 19:47 Unknown IMG DX ORDERABLES documented in this encounter Visit Diagnoses Not on filedocumented in this encounter Care Teams Java Web User Interface Developer Relationship Specialty Start Date End Date Campos Lopes MD PCP - General 09/01/10 [address] [place] [address] documented as of this encounter
--- OUTSIDE RECORDS SUMMARY | 2022-06-18 00:28 | XMS_ITS | Encounter Summary ---
:1940 Author Organization [facility] [address] Care Team Providers Name Role Phone Campos Lopes MD Primary Care Provider Encounter Details Date Type Department Care Team Description 07/26/2019 [facility] [place] [address] Social History Tobacco Use Types Packs/Day [...] Procedure Name Priority Date/Time Associated Diagnosis Comme [facility] SURGICAL PATHOLOGY Routine 07/26/2019 1:10 PM Res ults for this REPORT EDT procedure are i n the results section. documented in this encounter Results Surgical Pathology Report (07/26/2019 1:10 PM EDT) Component Value Ref Test Analysis Performed At [facility] Method Time Signature Surgical [id number] ? Location: [facility] Pathology [place] Report The signing pathologist has (i) examined the relevant preparation(s) for the [facility]ORIAL specimen(s) and (ii) rendered or confirmed the diagnosis(es) . [facility] . ?Surgic al Pathology DIAGNOSIS A - Skin, right upper lid, shave ?? biopsy: - ??Basal cell carcinoma, no dular type, ulcerated, transected at the base and periphery B - Skin, left sorto #1, shave ?? biopsy: - ??Basal cell carcinoma, superficial type, present at the s pecimen edges - Stasis changes C - Skin, left sorto #2, shave ?? biopsy: - ??Basal cell carcinoma, superficial type, present at the s pecimen edges - Stasis changes Electronically signed by: ??Carol Thomas MD Verified: ??07/31/2019 ?Dermatopathologist Performed at: ??-[facility] Dept. of Pathology, [place], [place] CLINICAL INFORMATION Specimen Submitted: A - Skin, right upper lid, shave (1) B - Skin, left sorto #1, shave (1) C - Skin, left sorto #2, shave (1) Clinical History and Diagnosis: A - 5 mm pearly nodule; BCC B - 5 mm pink plaque; BCC C - 5 mm pink plaque: BCC Referring Identifier: ?(not provided) SPECIMEN PROCESSING A - Labeled/Fixative: Right upper lid, formalin. Quantity/Size: ??Single, 0.6 x 0.3 x 0.1 cm. Tissue Description: Shave of stuart-pink, centrally eroded skin . Sections/Processing: Inked, bisected and entirely submitted in 1 cassette labeled A1. B - Labeled/Fixative: Left sorto #1, formalin. Quantity/Size: ??Single, 0.8 x 0.6 x 0.1 cm. Tissue Description: Shave of stuart-white, scaly skin. Sections/Processing: Inked, trisected and entirely submitted in 1 cassette labele d B1. C - Labeled/Fixative: Left sorto #2, formalin. Quantity/Size: ??Single, 0.8 x 0.5 x 0.1 cm. Tissue Description: Shave of stuart-white, slightly scaly skin. Sections/Processing: Inked, trisected and entirely submitted in 1 cassette labele d C1. ??apb Specimen (Source) Anatomical Collection Method Collection Time Re ceived Time Location / / Volume Laterality 07/26/2019 1:10 PM EDT Harriet Fuentes MD PATHOLOGY/CYTOLOGY ORDERABLE S Performing Organization Address City/State/Z[place] [address] documented in this encounter Visit Diagnoses Not on filedocumented in this encounter Care Teams Research Laboratory Manager Relationship Specialty Start Date End Date Campos Lopes MD PCP - General 09/01/10 [address] [place] [address] documented as of this encounter
--- OUTSIDE RECORDS SUMMARY | 2022-06-18 00:28 | XMS_ITS | Encounter Summary ---
:1940 Author Organization [facility] Address [address] [place] [address] Care Team Providers Name Role Phone Campos Lopes MD Primary Care Provider Encounter Details Date Type Department Care Team Description 09/13/[address] [facility] - Wero Bernabe MD conversion [address] [place] [address] Social History Tobacco Use Types Packs/Day Years Used Date Never Assessed Sex Assigned at Date Recorded Not on file documented as of this encounter Plan of Treatment Not on filedocumented as of this encounter Procedures Procedure Name Priority Date/Time Associated Diagnosis Comme nts CYTOPATHOLOGY Routine 09/13/2002 0:00 EST Results for this procedure are i n the results section . documented in this encounter Results CYTOPATHOLOGY (09/13/2002 0:00 EST) Pathology Report: CYTOPATHOLOGY REPORT [facility] Reports generated via electronic interface contain shari ginal data; however they are lacking the format of the original re port. Caution should be taken when reading/interpreting unfo rmatted reports. Name: ? MAUREEN BAEZ ? Accession #: ? [id number] : ? 1940 (Age: 62) ??F ?Collect Date: ? 02/2002 Location: ? [facility] ? Receive Date : ? 09/14/2002 Provider: ?WERO ROWELL MD Copy to: ? Specimen/Source: ?ThinPrep Pap Test, Cervix/ Endocervix Last Menstrual Period: ? 8 years Hormonal/Contraceptive Status: ? Yes ? SPECIMEN ADEQUACY ? Satisfactory for Evaluation - transformation zone component present GENERAL CATEGORIZATION ? Negative for Intraepithelial Lesion or Malignan cy ? Document reviewed and electronically signed by: ? JAVIER Dlilon(ASCP) ? Report Date: ??09/17/2002 11:04 End of Report Specimen Performing Organization Address City/State/[facility] Code Phon e Number [facility] [address] [place] [address] SERVICES [facility] [address] [place] [address] documented in this encounter Visit Diagnoses Not on filedocumented in this encounter Care Teams Aggregate Conveyor Operator Relationship Specialty Start Date End Date Campos Lopes MD PCP - General 05/21/09 [address] [place] [address] documented as of this encounter
--- OUTSIDE RECORDS SUMMARY | 2022-06-18 00:28 | XMS_ITS | Encounter Summary ---
:[address] [facility] Address [address] [place] [address] Care Team Providers Name Role Phone Unavailable Primary Care Provider Unavailable Encounter Details Date Type Department Care Team Description 04/08/2008 Before PRISM Converted [facility] - Krishna Li, Visit (Yaz) Yaz walters MD [address] [facility] [address] [place] [address] [place], [place] [phone] Social History Tobacco Use Types Packs/Day Years Used Date Never Assessed Sex Assigned at Date Recorded Not on file documented as of this encounter Plan of Treatment Not on filedocumented as of this encounter Procedures Procedure Name Priority Date/Time Associated Diagnosis Comme [facility] CYTOPATHOLOGY Routine 04/08/2008 0:00 EDT Results for this procedure are i n the results section . documented in this encounter Results CYTOPATHOLOGY (04/08/2008 0:00 EDT) Pathology Report: CYTOPATHOLOGY REPORT ? [facility] ? [facility] Reports generated via electr onic interface contain original data; ? however they are lacking the format of the original report. ? Caution should be taken when reading/interpreting unformatted reports. ? Name: ? ELZOHAIRY, AVERY RA ? Accession #: ? [id number] ? : ? 1940 (Age: 68) ??F ?Collect Date: ? 04/08/2008 ? Location: ? [facility] ? Receive Date: ? 04/10/2008 ? Provider: ?KRISHNA T RANDY ELAAR MD ? Copy to: ?ROE OLIVARES ER MD ? Specimen/Source: ? ThinPrep Pap Test, Cervix/Endocervix, processed on Cytyc ThinPrep Imaging System, wit h manual evaluation ? Last Menstrual Period: ? 8 years ago ? SPECIMEN ADEQUACY ? Satisfactory for Eval uation ? - transformation zone compon ent absent ? - obscuring contamination, p ossibly lubricant ? - scant squamous epithelial component ? GENERAL CATEGORIZATION ? Negative for Intraepi thelial Lesion or Malignancy ? Document reviewed and electr onically signed by: ? Yajaira Lawson, SCT( ASCP) ? Report Date: ??07/09/ 2008 13:44 ? End of Report ? Specimen Performing Organization Address City/State/ZIP Code Phon e Number [facility] [address] [place] [address] SERVICES [facility] [address] [place] [address] documented in this encounter Visit Diagnoses Not on filedocumented in this encounter
--- OUTSIDE RECORDS SUMMARY | 2022-06-18 00:28 | XMS_ITS | Encounter Summary ---
:1940 Author Organization [facility] Address [address] [place] [address] Care Team Providers Name Role Phone Campos Lopes MD Primary Care Provider Encounter Details Date Type Department Care Team Description 08/12/2000 Results Only [facility] - Wero Bernabe MD conversion [address] [place] [address] Social History Tobacco Use Types Packs/Day Years Used Date Never Assessed Sex Assigned at Date Recorded Not on file documented as of this encounter Plan of Treatment Not on filedocumented as of this encounter Procedures Procedure Name Priority Date/Time Associated Diagnosis Comme nts CYTOPATHOLOGY Routine 08/12/2000 0:00 EST Results for this procedure are i n the results section . documented in this encounter Results CYTOPATHOLOGY (08/12/2000 0:00 EST) Pathology Report: CYTOPATHOLOGY REPORT [facility] Reports generated via electronic interface contain shari ginal data; however they are lacking the format of the original re port. Caution should be taken when reading/interpreting unfo rmatted reports. Name: ? MAUREEN BAEZ ? Accession #: ? [id number] : ? 1940 (Age: 60) ??F ?Collect Date: ? 12/1999 Location: ? [facility] ? Receive Date : ? 08/16/2000 Provider: ?WERO ROWELL MD Copy to: ? Specimen/Source: ?Conventional Pap Test, Cer vix/Endocervix Last Menstrual Period: ? SPECIMEN ADEQUACY ? Satisfactory for evaluation. GENERAL CATEGORIZATION ? Within Normal Limits ? Document reviewed and electronically signed by: ? Nicolle Duenas, ??CT(ASCP) ? Report Date: ??08/24/2000 09:53 End of Report Specimen Performing Organization Address City/State/ZIP Code Phon e Number [facility] [address] [place] [address] SERVICES [facility] [address] [place] [address] documented in this encounter Visit Diagnoses Not on filedocumented in this encounter Care Teams Firer Kiln Relationship Specialty Start Date End Date Campos Lopes MD PCP - General 05/21/09 [address] [place], [place] [id number] documented as of this encounter
--- OUTSIDE RECORDS SUMMARY | 2022-06-18 00:28 | XMS_ITS | Encounter Summary ---
:1940 Author Organization [facility] Address [address] [place] [address] Care Team Providers Name Role Phone Unavailable Primary Care Provider Unavailable Encounter Details Date Type Department Care Team Description 08/29/2001 Hospital Encounter [facility] Axel Foster [facility] MD [address] [address] [place], [place] [phone] (Wo rk) Social History Tobacco Use Types Packs/Day Years Used Date Never Assessed Sex Assigned at Date Recorded Not on file documented as of this encounter Discharge Disposition Disposition Code Departure Means Destination Auto Discharge documented in this encounter Plan of Treatment Not on filedocumented as of this encounter Procedures Procedure Name Priority Date/Time Associated Diagnosis Comme nts CHEST PA AND Routine 08/29/2001 13:40 Results for this LATERAL EST procedure are i n the results section. documented in this encounter Results CHEST PA AND LATERAL (08/29/2001 13:40 EST) Anatomical Region Laterality Modality Other Specimen Narrative [facility] - 08/29/2009 4: 03 EST + PPD ?? ---- R/O ACTIVE DISEASE FOR EMPLOYMENT PA AND LATERAL VIEWS OF THE CHEST: 08/29. FINDINGS: The heart and pulmonary vasculature are normal. There is a somewhat ill-defined opacity over the left upper lobe that measures 1.5 cm, that could represent a pulmonary nodule, and there may be one or two tiny nodules adjacent to this. The lungs otherwise are clear, and there is no pleural effusion. We underst and that there is either a positive PPD or conversion, and addition al appropriate studies would be recommended to image this further. I would suggest that the patient be sche duled for an HRCT. It might be prudent to obtain a PA view of the ch est before the procedure to be inspected by the radiologist, to make ce rtain that this is not artifact or other built-up overlying [facility]. At this point my presumption is that there are one or mor e small nodular opacities in the left upper lobe. /juliann Procedure Note Maury Spence MD - 08/29/2009 + PPD ---- R/O ACTIVE DISEASE FOR EMPLOY MENT PA AND LATERAL VIEWS OF THE CHEST: 08/29. FINDINGS: The heart and pulmonary vasculature are normal. There is a somewhat ill-defined opacity over the left upper lobe that measures 1.5 cm, that could represent a pulmonary nodule, and there may be one or two tiny nodules adjacent to this. The lungs otherwise are clear, and there is no pleural effusion. We underst and that there is either a positive PPD or conversion, and addition al appropriate studies would be recommended to image this further. I would suggest that the patient be sche duled for an HRCT. It might be prudent to obtain a PA view of the ch est before the procedure to be inspected by the radiologist, to make ce rtain that this is not artifact or other built-up overlying [facility]. At this point my presumption is that there are one or mor e small nodular opacities in the left upper lobe. /juliann Performing Organization Address City/State/ZIP Code Phon e Number [facility] [address] [facility] [address] [facility] [address] [place], [place] [address] documented in this encounter Visit Diagnoses Not on filedocumented in this encounter
--- OUTSIDE RECORDS SUMMARY | 2022-06-18 00:28 | XMS_ITS | Encounter Summary ---
:1940 Author Organization [facility] Address [address] [place] [address] Care Team Providers Name Role Phone Campos Lopes MD Primary Care Provider Encounter Details Date Type Department Care Team Description 08/17/2000 Results Only [facility] - Wero Bernabe MD conversion [address] [place] [address] Social History Tobacco Use Types Packs/Day Years Used Date Never Assessed Sex Assigned at Date Recorded Not on file documented as of this encounter Plan of Treatment Not on filedocumented as of this encounter Procedures Procedure Name Priority Date/Time Associated Diagnosis Comme nts SURGICAL PATHOLOGY Routine 08/17/2000 0:00 EST Re sults for this procedure are i n the results section. documented in this encounter Results SURGICAL PATHOLOGY (08/17/2000 0:00 EST) Pathology Report: SURGICAL PATHOLOGY REPORT [facility] Reports generated via electronic interface contain shari ginal data; LAB however they are lacking the format of the original re port. Caution should be taken when reading/interpreting unfo rmatted reports. Name: ? GENA BAEZ RA ? Accession #: ? [id number] ? : ? 1940 (Age: 60) ??F ? Collect Date: ? 08/17/2000 ? Location: ? [facility] ? Receive Date: ? 000 ? Provider: WERO ROWELL MD Copy to: NAHEED COSBY MD ? Final Pathologic Diagnosis: ? Vulvar, biopsy: - ??Mild spongiotic dermatitis. ??See comment. Comment: ? There is mild spongio sis of the epidermis with mild chronic inflammatory infiltrates and a few necrot ic keratinocytes. ??The findings are non-specific and may represent an irritation related dermatitis. ??Dr. Kayla Box also reviewed this case and concurs with the diagnosis. ??Deeper lev els of the block are examined. ??(Dr. Felton)/[facility] Document reviewed and electronically signed by: YOLANDA FELTON MD Report ??Date: 08/25/2000 14:27 By the signature above, the attending physician certif ies that he/she has personally conducted a gross and/or microscopic examin ation of the described specimens and rendered or confirmed the above diagnosi s. Specimen(s) Received: ? Vulvar bx Clinical History: ? Chronic vulvar pruritus/pain Gross Description: ? Received in formalin labelled Elzohairy and vulvar bx is a shave biopsy of skin measuring 0.4 x 0.2 x 0.1 cm. ??Submitted intact in one cassette. ??(Dr. Pal-)/ljn End of Report Specimen Performing Organization Address City/State/ZIP Code Phon e Number [facility] [address] [place] [address] SERVICES [facility] [address] [place] [address] documented in this encounter Visit Diagnoses Not on filedocumented in this encounter Care Teams Slip Cover Estimator Relationship Specialty Start Date End Date Campos Lopes MD PCP - General 05/21/09 [address] [place] [address] documented as of this encounter
--- OUTSIDE RECORDS SUMMARY | 2022-06-18 00:28 | XMS_ITS | Encounter Summary ---
:1940 Author Organization [facility] Address [address] [place] [address] Care Team Providers Name Role Phone Unavailable Primary Care Provider Unavailable Encounter Details Date Type Department Care Team Description 09/07/2001 [facility] [address] [facility] [address] [place] [address] [place] [address] Social History Tobacco Use Types Packs/Day Years Used Date Never Assessed Sex Assigned at Date Recorded Not on file documented as of this encounter Discharge Disposition Disposition Code Departure Means Destination Auto Discharge documented in this encounter Plan of Treatment Not on filedocumented as of this encounter Procedures Procedure Name Priority Date/Time Associated Diagnosis Comme nts CT CHEST WO Routine 09/08/2001 13:40 Results for this CONTRAST EST procedure are i n the results section. CHEST PA AND Routine 09/07/2001 16:44 Results for this LATERAL EST procedure are i n the results section. documented in this encounter Results CT CHEST WO CONTRAST (09/08/2001 13:40 EST) Anatomical Region Laterality Modality Other Specimen Impressions [facility] - 08/29/2009 0: 46 EST IMPRESSION: 1. Left upper lobe subsegmental bronchio lar plugging. There is a broad differential for the focal plugging, whi ch is likely inflammatory, but endobronchial TB or another endobronchia l lesion cannot be ruled out. This should be followed to resolution. 2. 6mm indeterminate left lower lobe nod ule, possibly also inflammatory. D 09/08/01 T 09/10/01 /adryan Narrative [facility] - 08/29/2009 0: 46 EST +ppd ABNORMAL CHEST CT CHEST 09/08/01, 1100 hours HISTORY: 61 y.o. female PPD positive, abnormal ch est x-ray. FINDINGS: There is focal and branching bronchiolar mucous plugging in the lateral branch of the apical posterior s egment of the left upper lobe. This appearance, best seen on images 39 to 43 of series 2, correlates with recent chest x-ray opacity. In addition, there is a 6mm superior segment left lower lobe nodule on image #63. This second lesion is perhaps slightly centrally hypodense and possibly also involves the airway. No other lung lesions. There are no significant or calcified mediastinal or hilar nodes. No bony abno rmality. Limited upper abdominal unenhanced sections are unrema rkable. Procedure Note W, Amandeep Pettit DMD / Shania Gee MD - 08/29/2009 +ppd ABNORMAL CHEST CT CHEST 09/08/01, 1100 hours HISTORY: 61 y.o. female PPD positive, abnormal ch est x-ray. FINDINGS: There is focal and branching bronchiolar mucous plugging in the lateral branch of the apical posterior s egment of the left upper lobe. This appearance, best seen on images 39 to 43 of series 2, correlates with recent chest x-ray opacity. In addition, there is a 6mm superior segment left lower lobe nodule on image #63. This second lesion is perhaps slightly centrally hypodense and possibly also involves the airway. No other lung lesions. There are no significant or calcified mediastinal or hilar nodes. No bony abno rmality. Limited upper abdominal unenhanced sections are unrema rkable. IMPRESSION IMPRESSION: 1. Left upper lobe subsegmental bronchio lar plugging. There is a broad differential for the focal plugging, whi ch is likely inflammatory, but endobronchial TB or another endobronchia l lesion cannot be ruled out. This should be followed to resolution. 2. 6mm indeterminate left lower lobe nod ule, possibly also inflammatory. D 09/08/01 T 09/10/01 /adryan Performing Organization Address City/State/ZIP Code Phon e Number [facility] [address] [place] [address] [facility] [address] [place], [place] [address] CHEST PA AND LATERAL (09/07/2001 16:44 EST) Anatomical Region Laterality Modality Other Specimen Impressions [facility] - 08/29/2009 0: 45 EST IMPRESSION: Persistent nodular opacity left upper lo be. Further evaluation with HRCT would be helpful. /juliann Narrative [facility] - 08/29/2009 0: 45 EST R/O ABNORMAL CHEST FROM 08/29 QUESTION OPACITY HISTORY OF + PPD PA AND LATERAL CHEST: 09/07/01 1640 HOUR S. HISTORY: Abnormal chest from 08/29/01, ? opacity, history of positive PPD. COMPARISON: No old films available for comparison at the time of this reading. Comparison is made to the previous repor t. FINDINGS: By report on 08/29/01 there was a nodula r opacity in kami left upper lobe of unknown etiology. On today's exa mination there is a persistent nodular opacity in the left u pper lobe. The remainder of the lungs are clear. The cardiac, hilar, and mediastinal silhouettes are normal. The costophrenic angles are clear. Procedure Note Britton Younger MD / Curt Price MD - 08/29/2009 R/O ABNORMAL CHEST FROM 08/29 QUESTION O PACITY HISTORY OF + PPD PA AND LATERAL CHEST: 09/07/01 1640 HOUR S. HISTORY: Abnormal chest from 08/29/01, ? opacity, history of positive PPD. COMPARISON: No old films available for comparison at the time of this reading. Comparison is made to the previous repor t. FINDINGS: By report on 08/29/01 there was a nodula r opacity in kami left upper lobe of unknown etiology. On today's exa mination there is a persistent nodular opacity in the left u pper lobe. The remainder of the lungs are clear. The cardiac, hilar, and mediastinal silhouettes are normal. The costophrenic angles are clear. IMPRESSION IMPRESSION: Persistent nodular opacity left upper lo be. Further evaluation with HRCT would be helpful. /juliann Performing Organization Address City/State/ZIP Code Phon e Number [facility] [address] [place] [address] [facility] [address] [place], [place] [address] documented in this encounter Visit Diagnoses Not on filedocumented in this encounter
== END ==
PROVIDERS: PCP Internal Medicine; Visit Provider Internal Medicine
DX: N39.0 Urinary tract infection, site not specified (principal); N28.1 Cyst of kidney, acquired; R93.89 Abnormal findings on diagnostic imaging of other specified body structures
CPT/HCPCS: 76770; 99213

== ENCOUNTER 2022-06-23 07:23 | Day surgery (SDC) | payer MEDICARE, MEDICAID, SELFPAY ==
[2022-06-23] VITALS (17 sets, daily range): BP systolic 135–196; BP diastolic 55–91; PULSE 65–76; RESP 12–20; TEMP 36.1–36.6; TEMPC 36.3; O2SAT 90–97; BMI 28.2
--- NOTE | 2022-06-23 07:23 | ANES.PREOP_ITS ---
General Info Date of Service Date Performed: 06/23/22 Height: 5 ft 6 in Weight: 79.379 kg Body Mass Index (BMI): 28.2 Surgical Procedure: Operation Date: 06/23/22 08:10 Proposed Procedure Side Surgeon p Cholecystectomy Laparoscopic Laverne Sawyer MD Meds Allergies and Home Medications Allergies Allergy/AdvReac Type Severity Reaction Status Date / Time iodine Allergy Severe Hives, Verified 06/23/22 08:00 anaphalaxis per patient levofloxacin Allergy Intermediate leg Verified 06/23/22 08:00 weakness losartan Allergy Intermediate Verified 06/23/22 08:00 methimazole Allergy Mild Fatigue Verified 06/23/22 08:00 pentosan polysulfate sodium Allergy Mild Verified 06/23/22 08:00 [From [place]] epinephrine AdvReac Severe increased Verified 06/23/22 08:00 heart rate lisinopril AdvReac Intermediate increased Verified 06/23/22 08:00 heart rate famotidine AdvReac Mild stomach Verified 06/23/22 08:00 upset IVP dye Allergy Intermediate Anaphylaxis Uncoded 06/23/22 08:00 Home Medication Medication Instructions Recorded estradiol 0.01% (0.1 mg/gram) 1 g vaginal PRN PRN 12/27/12 vaginal cream (Estrace) cholecalciferol (vitamin D3) 25 25 mcg PO DAILY 02/08/20 mcg (1,000 unit) capsule phenazopyridine 200 mg tablet 200 mg PO TID PRN 02/08/20 (Pyridium) atenolol 50 mg tablet 25 mg PO DAILY 11/10/20 terconazole 0.4 % vaginal cream 1 appful vaginal QHS 11/10/20 fesoterodine 4 mg tablet,extended 4 mg PO DAILY 06/18/22 release 24 hr (Toviaz) albuterol sulfate 90 mcg/actuation 2 puff inhalation Q6H PRN 06/23/22 aerosol inhaler naproxen sodium 220 mg capsule mg 06/23/22 (Aleve) Current Visit Medications: Current Medications Generic Name Dose Route Start Last Admin Trade Name Freq PRN Reason Stop Dose Admin Acetaminophen 1,000 mg 06/23/22 06:00 Acetaminophen 500 Mg Tab PO 07/22/22 23:59 PREOP DELIA Celecoxib 200 mg 06/23/22 06:00 Celecoxib 200 Mg Cap PO 07/22/22 23:59 PREOP DELIA Ringer's Solution 1,000 mls @ 80 mls/hr 06/23/22 06:00 IV 07/22/22 23:59 INFUSION DELIA Ampicillin Sodium/Sulbactam 100 mls @ 200 mls/hr 06/23/22 06:00 Sodium 3 gm/ Sodium Chloride IVPB 06/23/22 23:59 PREOP DELIA IV Miscellaneous Supplies 1 each 06/23/22 06:00 Iv Access IV 07/22/22 23:59 DIRECTED DELIA Sodium Chloride 0 ml 06/23/22 06:00 Normal Saline Flush 10 Ml Syr IV 07/22/22 23:59 PRN PRN Sodium Chloride 0 ml 06/23/22 06:00 Normal Saline 10 Ml Vial IJ 07/22/22 23:59 DIRECTED PRN Sterile Water 0 ml 06/23/22 06:00 Water,Injection,Sterile 10 Ml Vial IJ 07/22/22 23:59 DIRECTED PRN PFSH Active Problems Active Problems: Problem Status Onset Code Chronic RUQ pain R10.11, G89.29 Biliary dyskinesia K82.8 Medical History Medical History Abdominal pain Asthma with COPD Basal cell carcinoma bilateral thighs Carpal tunnel syndrome Colon polyp Dyspepsia Essential hypertension Pt. denies that she has this, is on atenolol for hyperparathyroidism Excessive oral secretions Fatigue Fracture of coccyx with delayed healing History of gastric ulcer Hypercholesterolemia Hyperthyroidism Incontinence in female Laryngopharyngeal reflux Lipoma of stomach Mild chronic gastritis Paroxysmal a-fib Positive PPD Postmenopausal bleeding (03/28/13) Pruritus Recurrent UTI (urinary tract infection) Renal cyst Subclinical hyperthyroidism Urgency of urination (12/27/12) Urinary frequency (08/03/11) Surgical History Surgical History History of carpal tunnel surgery History of esophagogastroduodenoscopy (EGD) (~02/25/20) Tobacco Smoking/Tobacco Use Status: Former Tobacco Use Substance Use Substance use: Never Substance use type: does not use Vital Signs and Lab Results Lab Results Blood Type / Crossmatch: No Data to Display Complete Blood Count: No Data to Display Complete Metabolic Panel: No Data to Display Liver Function Panel: No Data to Display Coagulation Panel: 2 No Data to Display Cardiac Panel: No Data to Display Arterial Blood Gas: No Data to Display Venous Blood Gas: No Data to Display Pancreas Panel: No Data to Display Thyroid Panel: No Data to Display Infectious Disease: Coronavirus (COVID-19)(PCR) Negative (Negative) 06/23/22 07:13 Coronavirus 2019 Source Nasal/Nares 06/23/22 07:13 Blood Cultures: No Data to Display Toxicology Panel: No Data to Display Imaging and Studies Imaging and Studies Study information below may be from another EMR and interpreted by another provider. Please see original notes in EMR for more complete details. Pulmonary Function Summary: Date of service: 11/21/20 Time of Service: 03:04 Pulmonary Function Test Result Interpretation Spirometry: Very severe obstructive airways disease with some but not significant bronchodilator response Lung Volumes: No evidence of restriction, severe hyperinflation and air trapping Diffusion Capacity: Normal, elevated when corrected to alveolar volume Airway Pressure: Elevated Impression Very severe obstructive airways disease with some but not significant bronchodilator response, this is associated with severe hyperinflation and air trapping. When corrected to alveolar volume, there is elevated diffusion capacity. That can be seen in asthma, When the study was compared to previous 1 from 06/05/2008, the patient has a stable FEV1 and FVC Clinical Correlation therefore is recommended. Anesthesia Assessment and Plan Anesthesia History Personal History: PONV Family History: No Family History of Anesthesia Complications Exercise Tolerance Exercise Tolerance: Metabolic Equivalents>4 Pertinent Negatives Pertinent Negatives: No Symptoms of GERD and No History of CVA/TIA Cardiac & Pulmonary Exam Cardiac Exam: Normal S1/S2 Heart Sounds Pulmonary Exam: Wheezing Present (audible from bedside) Implantable Cardiac Device Does patient have a Pacemaker or an ICD?: No Airway Exam Known Difficult Airway: No Mallampati Class: 3 Mouth Opening: Normal (> 3cm) Thyromental Distance: Greater than 3 cm Neck Range of Motion: Full ROM Neck Circumference: Normal Teeth Condition: Generalized Poor Dentition ASA Classification ASA Score: ASA 3 Emergency Case?: No NPO Status NPO Status: NPO Clears >2 hours, Solids >8 hours Anesthesia Plan Resuscitation Status: Full Code Anesthesia Technique: General Anesthesia Airway Planned: Endotracheal Tube Monitors Used: Standard Monitors Preoperative Comments:: Asthma with COPD, not using ventolin due to large amount of mucous production with ventolin. Reports regularly using albuterol
--- NOTE | 2022-06-23 07:23 | W.PM.OP ---
Date of service: 06/23/22 Time of Service: 09:57 Operative Note Operative Note DATE OF PROCEDURE: 06/23/22 PRE-OP DIAGNOSIS: Biliary Dyskinesia POST-OP DIAGNOSIS: same PROCEDURE: Laparoscopic Cholecystectomy SURGEON: Laverne Sawyer APPELLATE COURT CLERK: Julissa Logan Refer to Anesthesia Record ESTIMATED BLOOD LOSS: 10 PATHOLOGY: other (Gallbladder) COMPLICATIONS: None Patient was transported to: PACU Patient's condition: stable Indications: Ms Thomas is a 81-year-old female with chronic right upper quadrant pain who had a HIDA scan which showed a 14% ejection fracture.? We discussed the treatment for biliary dyskinesia.? We reviewed the function of the gallbladder and how we can live without it.? We reviewed the surgery in detail using a pamphlet with pictures.? The patient's questions were entertained and answered to her satisfaction and she wished to proceed. Risks, benefits, complications were reviewed with the patient in the office.? Complications include but are not limited to bleeding, infection, injury to stomach, small bowel and large bowel, injury to the pancreas, injury to the common bile duct necessitating drainage and referral to tertiary center for repair, bile leak, adverse reactions to the medications, complications of intubation including a sore throat or injury to the uvula, OK, stroke and even .? Questions were entertained and answered to her satisfaction and she wished to proceed.? No guarantees were given or implied. Findings: There was a lot of fat around the Gallbladder Procedure Description: After informed consent was obtained the patient was brought to the operating room, placed in a supine position and monitors were applied. SCDs were applied to her lower extremities and she was placed under general anesthesia and intubated without difficulty. Her abdomen was then prepped and draped in a sterile fashion using ChloraPrep. At this point a timeout was done and the patient's name, date of , procedure type, allergies to medications, metal in her body, antibiotic and DVT prophylaxis, and fire risk was assessed. At this point 0.25% Bupivocaine was injected just above the umbilicus into the dermis and subcutaneous tissue. A 5 mm incision was made with an 11 blade. The skin next to the incision was grasped with penetrating towel clamps and while pulling up on the skin a 5 mm port was placed under direct visualization. The abdomen was insuflated and then 3 more ports were placed. A 12 mm port was placed in the subxiphoid area and two 5 mm ports were placed in the right upper quadrant. The liver was inspected and appeared to have some fatty infiltration. The patient's bed was then turned to the left and her head was brought up. The gallbladder was grasped at the body and pushed towards the right shoulder, this allowed me to visualize the neck of the gallbladder. There was a lot of fat around the gallbladder. The fat was gently dissected away from the gallbladder. The perironeal lining over the gallbladder was also dissected at the neck. The neck was grasped and pulled towards the right flank and down allowing me to visualize the lymph node. Using a [place] dissector with cautery the lymph node was gently dissected away from the tissues and the fatty tissue was also dissected away. The cystic duct was identified it was normal in size. The duct was dissected 360 degrees using the [place] dissector in order for me to visualize its entrance into the gallbladder. Liver was noted behind it. There were no other structures right behind. Critical view was achieved. 3 clips were placed one proximal and 2 distal and the cystic duct was cut. The cystic artery was then identified and dissected 360 degrees. There was a small accessory cystic artery that was cauterized. It was located just medial to the cystic duct. It was visualized going into the gallbladder. Once dissected 3 more clips were placed one proximal and 2 distal and the artery was cut. Using the hook dissector the gallbladder was then dissected away from the liver bed and placed into an Endo Catch bag and pulled through the 12 mm port site. The 12 mm port was placed back into the abdomen under direct visualization. The liver bed was inspected no bleeding was noted. The abdomen was then irrigated with a liter of normal saline until the effluent was clear. Once all the fluid was suctioned out, the 12 mm and the 2 right upper quadrant ports were removed under direct visualization and no bleeding was noted from the fascia. The abdomen was deflated completely and lastly the umbilical port was removed. The skin was cleaned and the incisions were closed with 4-0 Vicryl. The skin was dried and skin affix was applied over the closed incisions. Needle, instrument and sponge counts were correct at the end of the case. At this point the patient was woken up, extubated and taken back to recovery in stable condition. There were no immediate complications.
--- NOTE | 2022-06-23 07:31 | PDOC.DSDIS_ITS ---
Discharge Plan Disposition Patient Disposition: HOME Condition: Good Discharge Details Reason For Visit: Geri winslow Attending Provider: Laverne Sawyer Primary Care Provider: Campos Lopes Home Meds and New Rx's Prescriptions: New oxycodone 5 mg tablet 5 mg PO Q6H PRNQty: 14 0RF Continued fesoterodine [Toviaz] 4 mg tablet extended release 24 hr 4 mg PO DAILY estradiol [Estrace] 42.5 GM cream 1 g VG PRN PRN cholecalciferol (vitamin D3) 25 mcg (1,000 unit) capsule 25 mcg PO DAILY atenolol 50 mg tablet 25 mg PO DAILY terconazole 0.4 % cream 1 appful vaginal QHS budesonide-formoterol [Symbicort] 160-4.5 mcg/actuation HFA aerosol inhaler 2 puff inhalation BID omeprazole 40 mg capsule,delayed release(DR/EC) 40 mg PO BID ipratropium bromide 42 mcg (0.06 %) spray,non-aerosol 2 spray intranasal TID Rx Instructions: administer into each nostril phenazopyridine [Pyridium] 100 mg tablet 100 mg PO TID PRN naproxen sodium [Aleve] 220 mg Capsule albuterol sulfate 90 mcg/actuation Hfa Aerosol Inhaler 2 puff INHALATION Q6H PRN No Action fluticasone propionate [Allergy Relief (fluticasone)] 50 mcg/actuation spray,suspension 1 spray intranasal DAILY Rx Instructions: administer into each nostril Discharge Instructions Instructions: Laparoscopic Cholecystectomy (DC), Low Fat Diet (DC) Additional Instructions: Activity at Home after surgery: 1. Make sure you walk outside at least 4 times per day 2. You should be able to climb a flight of stairs 3. No driving while in pain or taking pain medications 4. No strenuous activity or heavy lifting for 2 weeks (laparoscopic surgery) Diet, Nutrition, & wound healin. Avoid alcohol until after you are recovered from your surgery 2. Make sure to eat plenty of lean protein (meat, fish, eggs, cottage cheese, beans) 3. Eat a variety of fruits and vegetables. Eat plenty of high fiber foods to avoid constipation. 4. Drink plenty of liquids to stay hydrated and avoid constipation Pain Medications: 1. Tylenol 650mg every 6 hours as needed and Ibuprofen 600 mg every 6 hours as needed. You may alternate between the 2 medications every 3 hours 2. If a narcotic has been prescribed take as directed only for breakthrough pain For Constipation: 1. Take Milk of Magnesia or MiraLax as needed for constipation Other: 1. You may shower daily. Do not scrub the incisions 2. Do not soak the incisions for 1 week 3. You may alternate ice and heat as needed for pain and swelling Wound Care: 1. Keep the incisions clean and dry Please call our office if you develop: 1. Fevers >101.5 2. Nausea or Vomiting 3. Worsening pain 4. Redness and thick discharge from the wounds If after hours please call the Hospital at and ask to speak to the on-call surgeon Referrals: Laverne Sawyer MD [ [facility] STAFF PHYSICIAN] - 07/09/22 9:30 am Activity:: as above Diet:: low fat Discharge Orders Discharge Orders: Discharge Order (Routine); Ordered 06/23/22 Ordered By: Laverne Sawyer
[2022-06-23 07:37] LABS: Source Nasal/Nares
[2022-06-23] MEDS: Celecoxib 200 MG CAP PO (07:56)
[2022-06-23] MEDS: Acetaminophen 500 MG TAB 1000 MG PO (07:57)
[2022-06-23] MEDS: Lactated Ringers 1,000 ML 80 ML IV (08:05)
[2022-06-23 08:35] LABS: COVID-19 PCR Negative (Negative)
[2022-06-23] MEDS: AMPICILLIN/SULBACTAM 3 GM in Normal Saline 100 ML IVPB (08:52)
--- NOTE | 2022-06-23 09:20 | GB_PTH ---
PATIENT: Maureen Thomas LOC: [facility] U#:[id number] AGE/SX: 82/F ROOM: RE06/23/[address]: Laverne Sawyer MD : 1940 BED: DIS: 06/23/2022 SPEC #: [id number] RECD: 06/23/22 12:46 STATUS: CARRIE REQ #: [id number] EFRAÍN: 06/23/22 09:[address]: Laverne Sawyer DEPT: Surgical Specimen RECD BY: Ivett Serrano ENTERED: 06/23/22 12:47 SP TYPE: GB OTHR DR: Campos Lopes Tissues: 1 - GALLBLADDER Procedures: GROSS AND MICRO LEVEL 3 Comments: [id number]
[2022-06-23] MEDS: Bupivacaine 0.25% Pres-Free 30 ML VIAL (09:42)
[2022-06-23] MEDS: Albuterol/Ipratropium 3 ML UPD VIAL UPD (11:04)
[2022-06-23] MEDS: fentaNYL 100 MCG/2 ML VIAL IVP (11:40)
--- NOTE | 2022-06-23 12:54 | W.ANESPOSTOP ---
Postoperative Evaluation Date, Time and Location Date Performed: 06/23/22 Time Performed: 12:54 Patient Location: Day Surgery Unit Vital Signs Most Recent Imported Vital Signs: Most Recent Vital Signs Temp Pulse Resp BP Pulse Ox 36.6 C 74 20 155/57 H 93 06/23/22 12:25 06/23/22 12:25 06/23/22 12:25 06/23/22 12:25 06/23/22 12:25 Most Recent Manually Entered Vital Signs: Adult Blood Pressure: 144/82 Heart Rate: 76 Respirations: 14 Oxygen Saturation (%): 94 Temperature (C): 36.3 C Pain Score (0-10 Scale): 0 Pain Score Most Recent Pain Score: Most Recent Pain Score Pain Level 1 06/23/22 12:25 Assessment Mental Status: Awake (Alert & Oriented to Patient Baseline) Airway and Respiratory Function: Patent airway with normal (patient baseline) respiratory exam Cardiovascular Function: Hemodynamically Stable Hydration Status: Adequately Hydrated Nausea & Vomiting: No Nausea or Vomiting Pain: Pt. Denies Any Pain Peripheral Nerve Block: Patient did not receive a nerve block
== END 2022-06-23 14:16 | disposition home or self-care (01) ==
PROVIDERS: PCP Internal Medicine; Visit Provider Surgery
PROC: 0FT44ZZ Resection of Gallbladder, Percutaneous Endoscopic Approach (ICD-10-PCS; CPT 47562; principal; 2022-06-23 08:00)
DX: K81.1 Chronic cholecystitis (principal); J44.9 Chronic obstructive pulmonary disease, unspecified; I48.0 Paroxysmal atrial fibrillation; I10 Essential (primary) hypertension; Z20.822 Contact with and (suspected) exposure to COVID-19
CPT/HCPCS: 47562; 87635; 88304; J0295; J1100; J2405; J2704; J3010; J7620

== ENCOUNTER → 2022-08-03 14:16 | Outpatient (BNVA) | payer MEDICARE, MEDICAID, SELFPAY | PROVIDERS: PCP Internal Medicine; Referring Provider Internal Medicine; Visit Provider Surgery | DX: R10.11 Right upper quadrant pain (principal); G89.29 Other chronic pain; Z90.49 Acquired absence of other specified parts of digestive tract | CPT/HCPCS: 99212 ==

== ENCOUNTER → 2022-08-18 01:43 | Outpatient (CLI) | payer MEDICARE, MEDICAID, SELFPAY ==
--- NOTE | 2022-08-18 06:30 | DI.MRI_ITS ---
Exam(s) MR ABDOMEN WO EXAM: MR ABDOMEN WO CLINICAL HISTORY: Nausea,RUQ pain, s/p lap nayla,R10.11,Z90.49 TECHNIQUE: Multiplanar multisequence MRI of the Abdomen was performed. COMPARISON: CT CT ABDOMEN PELVIS W from 02/29/2020 US US ABDOMEN LIMITED from 03/06/2020 NM NM HEPATOBILIARY CCK GRP from 03/19/2020 FINDINGS: The examination is limited due to patient motion artifact. Liver: No evidence of a hepatic mass. Pancreas: Unremarkable. Gallbladder and Bile Ducts: Status post cholecystectomy. There is no biliary ductal dilatation. The common duct measures 5 mm. No filling defects are seen to suggest choledocholithiasis. Adrenals: Unremarkable. Kidneys: There are bilateral renal cysts. The largest is in the left kidney and measures 4.9 x 4.6 c m. Spleen: Unremarkable. Bowel: There is colonic diverticulosis. Aorta: No evidence of an aneurysm. Soft Tissues: Unremarkable. Bone: Unremarkable. Lymph Nodes: Unremarkable. IMPRESSION: 1. Examination limited by patient motion artifact. 2. Status post cholecystectomy. No biliary ductal dilatation. 3. Bilateral renal cysts. DATA REPOSITORY:
== END ==
PROVIDERS: PCP Internal Medicine; Visit Provider Surgery
DX: N28.1 Cyst of kidney, acquired (principal); R11.0 Nausea; Z90.49 Acquired absence of other specified parts of digestive tract
CPT/HCPCS: 74181

== ENCOUNTER 2022-09-10 15:01 | Outpatient (REF) | payer MEDICARE, MEDICAID, SELFPAY ==
[2022-09-10 16:02] LABS: Bilirubin Negative (Negative); Blood Trace-intact (Negative); Clarity Clear (Clear); Glucose Negative (Negative); Ketones Negative (Negative); Leukocyte Esterase Small (Negative); Nitrite Negative (Negative); Specific Gravity >= 1.030 (1.005-1.025); Urobilinogen 0.2 EU/dL (Up TO 0.2)
[2022-09-10 16:11] LABS: Bacteria Few HPF (Negative); C & S Indicated? Yes; Casts Negative LPF (Negative); Crystals Negative HPF (Negative); Epithelial Cells Rare HPF (Negative); Mucus Negative (Negative); RBC 0-2 HPF (0-2)
== END 2022-09-10 15:02 | disposition home or self-care (01) ==
LOC: NCHCN 15:01
PROVIDERS: PCP Internal Medicine; Visit Provider Internal Medicine
DX: N30.10 Interstitial cystitis (chronic) without hematuria (principal); N39.0 Urinary tract infection, site not specified
CPT/HCPCS: 87077; 81003; 81015; 87086; 87186

== ENCOUNTER 2022-10-12 11:42 | Outpatient (REF) | payer MEDICARE, MEDICAID, SELFPAY ==
[2022-10-12 16:20] LABS: Bilirubin Negative (Negative); Blood Negative (Negative); Clarity Clear (Clear); Glucose Negative (Negative); Ketones Negative (Negative); Leukocyte Esterase Negative (Negative); Nitrite Negative (Negative); Specific Gravity >= 1.030 (1.005-1.025); Urobilinogen 0.2 EU/dL (Up TO 0.2)
[2022-10-12 17:04] LABS: ALT 21 U/L (14-59); AST 16 U/L (15-37); Albumin 3.8 g/dL (3.4-5.0); Alkaline Phosphatase 69 U/L (46-116); Anion Gap 2.9 mmol/L (3-11); BUN 14 mg/dL (7-18); Bilirubin, Total 0.4 mg/dL (0.2-1.0); CO2 32.1 mmol/L (21.0-32.0); CREATININE 0.6 mg/dL (0.55-1.02); Calcium 9.2 mg/dL (8.5-10.1); Chloride 109 mmol/L (98-107); Estimated GFR 90.68 (mL/min/1.73m2); FREE T4 1.58 ng/dL (0.76-1.46); Glucose 85 mg/dL (74-106); Potassium 4.5 mmol/L (3.5-5.1); Sodium 144 mmol/L (136-145)
[2022-10-12 17:12] LABS: TSH < 0.01 uIU/mL (0.36-3.74)
[2022-10-12 22:36] LABS: T3, Total 241 ng/dL (97-169)
== END 2022-10-12 11:43 | disposition home or self-care (01) ==
LOC: NCHCN 11:42
PROVIDERS: PCP Internal Medicine; Visit Provider Internal Medicine
DX: E05.90 Thyrotoxicosis, unspecified without thyrotoxic crisis or storm (principal); J44.9 Chronic obstructive pulmonary disease, unspecified; N39.0 Urinary tract infection, site not specified; I10 Essential (primary) hypertension; R10.11 Right upper quadrant pain
CPT/HCPCS: 80053; 81003; 84439; 84443; 84480

== ENCOUNTER 2022-10-25 09:31 | Emergency (ER) | payer MEDICARE, MEDICAID, SELFPAY ==
--- NOTE | 2022-10-25 09:30 | RT.EKG_ITS ---
APPROVED REPORT Exam: Resting ECG Reason for Exam: sob Patient Location: E HR:76 bpm ECG Measurements Heart Rate 76 AXIS ND 168 P -4 QRSd 131 QRS 90 QT 398 T -33 QTc 448 Conclusion Sinus rhythm. Nonspecific intraventricular conduction delay ST elevation secondary to IVCD...Multiple VCG criteria
[2022-10-25 09:37] VITALS: BP 124/95; PULSE 82; TEMP 36.8; O2SAT 96
--- NOTE | 2022-10-25 09:46 | W.ED.GENAD ---
Discharge Plan Disposition Patient Disposition: Home Condition: Improving Discharge Details Clinical Impression: Pneumonia Primary Care Provider: Campos Lopes ED Provider: Luca Bruno Home Meds and New Rx's Prescriptions: New amoxicillin-pot clavulanate 875-125 mg tablet 1 tab PO BID 10 Days Qty: 20 0RF acetaminophen-codeine 300-30 mg tablet 1 tab PO BID PRN (Reason: cough) Qty: 10 0RF Rx Instructions: No alcohol or driving with this medication Continued fesoterodine [Toviaz] 4 mg tablet extended release 24 hr 4 mg PO DAILY estradiol [Estrace] 42.5 GM cream 1 g VG PRN PRN cholecalciferol (vitamin D3) 25 mcg (1,000 unit) capsule 25 mcg PO DAILY atenolol 50 mg tablet 25 mg PO DAILY terconazole 0.4 % cream 1 appful vaginal QHS ipratropium bromide 42 mcg (0.06 %) spray,non-aerosol 2 spray intranasal TID Rx Instructions: administer into each nostril phenazopyridine [Pyridium] 100 mg tablet 100 mg PO TID PRN azelastine 137 mcg (0.1 %) aerosol,spray 1 spray intranasal BID Rx Instructions: administer into each nostril ondansetron 4 mg tablet,disintegrating 4 mg PO Q6H PRN (Reason: nausea and vomiting) Qty: 30 0RF lorazepam [Ativan] 2 mg tablet 2 mg PO DAILY PRN (Reason: anxiety) Qty: 2 0RF Rx Instructions: Take 30 minutes prior to your MRI naproxen sodium [Aleve] 220 mg Capsule albuterol sulfate 90 mcg/actuation Hfa Aerosol Inhaler 2 puff INHALATION Q6H PRN Discharge Instructions Instructions: Pneumonia (ED) Additional Instructions: We reviewed your x-ray results from [facility]. I recommend you take an [id number] probiotic once daily while on the oral antibiotic. Please take the antibiotic as prescribed until finished. We will ask our care managers to make you a follow-up appointment in Dr. Lopes's office for recheck. May use the prescribed Tylenol with codeine at bedtime as needed for coughing or discomfort. Return to the emergency [facility] for any acute concerns. Medical Decision Making 82-year-old female presents from home with 2 weeks of persistent cough, congestion and increasing sputum. She has had persistent coughing at nighttime. She states she had a chest x-ray performed at [facility] on Tuesday but does not know the results. She states it was ordered by her primary care physician, Dr. Lopes. She states she and Dr. Lopes recently pursued a course of prednisone which did not change her cough. On exam she has right-sided rhonchi present. Different diagnosis includes bronchitis versus pneumonia. Records request was placed for chest x-ray results from [facility] this weekend. Patient had a sputum culture ordered. The x-ray did reveal evidence of patchy pneumonia per report. We discussed treating her for bronchitis/walking pneumonia with a course of Augmentin. She is stable for outpatient management. I discussed with her the use of codeine-based cough syrup for nighttime sleep which she is in agreement. She was consented for this prior to discharge. HPI General Mode of arrival: ambulatory. Date/Time Provider Initiated Documentation: 10/25/22 09:32. Limitations to Documentation: no limitations. Information obtained by: patient. History of Present Illness 82 year old F presents to the emergency department with the chief complaint of Co9ugh, phlegm for days, described as mild, and is localized to the chest. Patient reports no radiation. Patient started experiencing this week(s) and it has been intermittent. No relieving factors improve symptom(s), No exacerbating factors reported . Patient notes cough and shortness of breath; denies chest pain and fever/chills. Patient did receive the following treatments prior to arrival, none Related Data Home Medications Medication Instructions Recorded Confirmed estradiol 0.01% (0.1 mg/gram) 1 g vaginal PRN PRN 12/27/12 08/03/22 vaginal cream (Estrace) cholecalciferol (vitamin D3) 25 25 mcg PO DAILY 02/08/20 08/03/22 mcg (1,000 unit) capsule atenolol 50 mg tablet 25 mg PO DAILY 11/10/20 08/03/22 terconazole 0.4 % vaginal cream 1 appful vaginal QHS 11/10/20 08/03/22 fesoterodine 4 mg tablet,extended 4 mg PO DAILY 06/18/22 08/03/22 release 24 hr (Toviaz) albuterol sulfate 90 mcg/actuation 2 puff inhalation Q6H PRN 06/23/22 08/03/22 aerosol inhaler azelastine 137 mcg (0.1 %) nasal 1 spray intranasal BID 06/23/22 08/03/22 spray aerosol ipratropium bromide 42 mcg (0.06 2 spray intranasal TID 06/23/22 08/03/22 %) nasal spray naproxen sodium 220 mg capsule mg 06/23/22 08/03/22 (Aleve) phenazopyridine 100 mg tablet 100 mg PO TID PRN 06/23/22 08/03/22 (Pyridium) ondansetron 4 mg disintegrating 4 mg PO Q6H PRN nausea and 08/06/22 tablet vomiting #30 tabs lorazepam 2 mg tablet (Ativan) 2 mg PO DAILY PRN anxiety #2 tabs 08/13/22 acetaminophen 300 mg-codeine 30 mg 1 tab PO BID PRN cough #10 tabs 10/25/22 tablet amoxicillin 875 mg-potassium 1 tab PO BID 10 days #20 tabs 10/25/22 clavulanate 125 mg tablet Previous Rx's Medication Instructions Recorded ondansetron 4 mg disintegrating 4 mg PO Q6H PRN nausea and 08/06/22 tablet vomiting #30 tabs lorazepam 2 mg tablet (Ativan) 2 mg PO DAILY PRN anxiety #2 tabs 08/13/22 acetaminophen 300 mg-codeine 30 mg 1 tab PO BID PRN cough #10 tabs 10/25/22 tablet amoxicillin 875 mg-potassium 1 tab PO BID 10 days #20 tabs 10/25/22 clavulanate 125 mg tablet Allergies Allergy/AdvReac Type Severity Reaction Status Date / Time iodine Allergy Severe Hives, Verified 08/03/22 14:17 anaphalaxis per patient levofloxacin Allergy Intermediate leg Verified 08/03/22 14:17 weakness losartan Allergy Intermediate Verified 08/03/22 14:17 methimazole Allergy Mild Fatigue Verified 08/03/22 14:17 pentosan polysulfate sodium Allergy Mild Verified 08/03/22 14:17 [From [facility]] epinephrine AdvReac Severe increased Verified 08/03/22 14:17 heart rate lisinopril AdvReac Intermediate increased Verified 08/03/22 14:17 heart rate famotidine AdvReac Mild stomach Verified 08/03/22 14:17 upset IVP dye Allergy Intermediate Anaphylaxis Uncoded 08/03/22 14:17 General Stated Complaint: SOB AMARJIT: 3 Review of Systems Narrative: 8 systems reviewed and otherwise negative PFSH All Active Problems (Updated 10/25/22 @ 10:18 by Luca Bruno MD) Pneumonia (Acute) Chronic RUQ pain (Acute) Biliary dyskinesia (Acute) Medical History Abdominal pain Acute cystitis Arthralgia Asthma with COPD Atrophic vaginitis Basal cell carcinoma bilateral thighs Carpal tunnel syndrome Chronic blepharitis Chronic interstitial cystitis Colon polyp COPD (chronic obstructive pulmonary disease) Cystitis cystica De Quervain's tenosynovitis Dyspepsia Dysphonia Essential hypertension Pt. denies that she has this, is on atenolol for hyperparathyroidism Excessive oral secretions Fatigue Foot pain Foreign body granuloma of skin Fracture of coccyx with delayed healing Gallbladder disorder Gastric mass Gustatory rhinitis History of gastric ulcer Hypercholesterolemia Hyperthyroidism Incontinence in female Laryngopharyngeal reflux Lipoma of stomach Mild chronic gastritis Muscle cramps Paroxysmal a-fib Perennial allergic rhinitis Peripheral neuropathy Phlegm in throat Positive PPD Postmenopausal bleeding (03/28/13) Postnasal drip Pruritus Reactive depression (situational) Recurrent UTI Recurrent UTI (urinary tract infection) Renal cyst Shoulder pain, left Sleepiness Subclinical hyperthyroidism Urgency of urination (12/27/12) Urinary frequency (08/03/11) UTI (urinary tract infection) Xerosis of skin Surgical History History of carpal tunnel surgery History of esophagogastroduodenoscopy (EGD) (~02/25/20) S/P laparoscopic cholecystectomy Social History Smoking/Tobacco Use Status: Former Tobacco Use Quit Date: 10/10/89 Smoking risk assessment performed?: Yes Alcohol Intake: current Alcohol Intake frequency: holidays/special occasions only Alcohol type: wine Drug use: Never Substance use type: does not use Do you feel safe at home: Yes Do you feel safe in your relationship?: Yes Exam Narrative Exam Narrative: GEN: awake, alert, oriented 3. Pleasant, well groomed, interactive. HEAD: Normocephalic, atraumatic ENT: Mucous membranes moist, oropharynx unremarkable, External ear exam unremarkable EYES: PERRL, EOMI NECK: Full ROM, no HEENA, no menigismus CHEST/RESP: Nontender, right-sided rhonchi noted, otherwise clear CARDIOVASCULAR: RRR, no murmur, rub ángel. 2+ Rad pulse bilateral ABDOMEN: Soft, nontender, no mass. +Bowel sounds EXT: Full ROM, no edema, no rash Neuro: Grossly normal neurologic exam, conversant, interactive. Psych: Speech fluent, thoughts congruent, affect normal Course Vital Signs Vital signs: Vital Signs Temperature 36.8 C 10/25/22 09:37 Pulse 82 10/25/22 09:37 Blood Pressure 124/95 H 10/25/22 09:37 Pulse Oximetry 96 10/25/22 09:37 Temperature 36.8 C 10/25/22 09:37 Temperature Source Temporal Artery Scan 10/25/22 09:37 Pulse 82 10/25/22 09:37 Blood Pressure 124/95 H 10/25/22 09:37 Blood Pressure Position Sitting 10/25/22 09:37 Pulse Oximetry 96 10/25/22 09:37 Oxygen Delivery Method Room Air 10/25/22 09:37 Oxygen Flow Rate 0 10/25/22 09:37 Pain Level 6 10/25/22 09:37
[2022-10-25 10:43] VITALS: RESP 18
--- NOTE | 2022-10-25 11:41 | NUR.NOTE ---
Nursing Note:Referral faxed to PCP for pneumonia, in 10 days
== END 2022-10-25 10:52 | disposition home or self-care (01) ==
PROVIDERS: Emergency Provider Emergency Medicine; PCP Internal Medicine
DX: J44.0 Chronic obstructive pulmonary disease with (acute) lower respiratory infection (principal); J18.9 Pneumonia, unspecified organism; R06.02 Shortness of breath
CPT/HCPCS: 93005; 99283; 87070; 87205; 93010; 99284

== ENCOUNTER 2022-10-25 13:19 | Outpatient (REF) | payer MEDICARE, MEDICAID, SELFPAY | END 2022-10-25 13:20 | disposition home or self-care (01) | LOC: LBN 13:19 | PROVIDERS: PCP Internal Medicine; Visit Provider Emergency Medicine | DX: J18.9 Pneumonia, unspecified organism (principal); J44.0 Chronic obstructive pulmonary disease with (acute) lower respiratory infection; R06.02 Shortness of breath; R84.6 Abnormal cytological findings in specimens from respiratory organs and thorax | CPT/HCPCS: 87077; 87070; 87186; 87205 ==

== ENCOUNTER 2022-12-09 16:20 | Outpatient (REF) | payer MEDICARE, MEDICAID, SELFPAY ==
--- OUTSIDE RECORDS SUMMARY | 2022-12-09 16:22 | XMS_ITS | Continuity of Care Document ---
Author Name Unknown Organization [facility] Address [address] [place] [address] Care Team Providers Care Lead Data Architect Name Role Phone Campos Lopes Primary Care Physician [facility] [facility] - 08/21/[address] [address] Discharge Disposition: Home or Self Care Attending Physician: Julissa Sanabria MD Admitting Physician: Julissa Sanabria MD Allergies, Adverse Reactions, Alerts No Known Medication Allergies Substance Reaction Severity Status SHELLFISH DERIVED Unknown Active nitrofurantoin Bladder pain, ineffe ctive for her infections Other Severe Active iodine topical Urticaria Unknown Active EPINEPHrine topical Rapid heart beat Moderate Acti ve mirabegron Other Moderate Active trimethoprim hives, vaginal itchi ng, tongue swelling Skin rash Severe Active Assessment and Plan Diagnostic Tests Pending * Urine Culture 08/21/22 Future Scheduled Tests Radiology* NM Bone Imaging Limited 04/22/22 Immunizations Given and Recorded Vaccine Date Status Refusal Reason influenza virus vaccine, live 07/10/19 Recorded influenza virus vaccine, live 07/31/18 Recorded pneumococcal 13-valent conjugate vaccine 06/10/15 Recorded pneumococcal 23-polyvalent vaccine 11/15/07 Record ed Medications atenolol 0 Refill(s) Start Date: 03/17/22 Status: Ordered levoFLOXacin 0 Refill(s) Start Date: 03/17/22 Status: Ordered Medrol 4 mg oral tablet 1 packets, Oral, Daily, as directed Start Date: 04/13/22 Status: Ordered omeprazole 0 Refill(s) Start Date: 03/17/22 Status: Ordered ZyrTEC 10 mg oral tablet 10 mg = 1 tab, Oral, Daily Start Date: 04/13/22 Status: Ordered Problem List Condition Confirmation Course Effective Dates Status H ealth Status Informant Asthma Confirmed 07/23/20 Active Carpal tunnel syndrome of right wrist Confirmed Active Chronic interstitial cystitis Confirmed Active Chronic obstructive lung disease Confirmed 12/01/20 Active Extended spectrum beta-lactamase producing Klebsiella pneumoniae 1 Confirmed 03/11/22 Active Gastroesophageal reflux disease Confirmed 12/06/18 Active Hypersomnia Confirmed Active Hypertensive disorder Confirmed Active Laceration of ear region Confirmed Active Lack of energy Confirmed Active Left bundle branch block Confirmed 12/01/20 Active Pain in right foot Confirmed Active Postmenopausal bleeding Confirmed Active Shoulder pain Confirmed Active Urgent desire to urinate Confirmed Active 1Problem added by Rule (LH_IC_MDRO_ESBL) following Urine Culture from U Cath collected on 09-MAR-2022 14:58:00 EDT tested positive for ESBL. Procedures Procedure Date Related Diagnosis Body Site Status Carpal tunnel release open 12/12/17 Completed Results Laboratory List Name Date Urinalysis Microscopic 08/21/22 Urinalysis with Microscopic 08/21/22 Most recent to oldest [Reference Range]: 1 UA Color Yellow (08/21/22 10:47 AM) UA WBC [0-3] 50-100 *ABN* (08/21/22 10:47 AM) UA Urobilinogen Normal (08/21/22 10:47 AM) UA Bili [Negative] Negative (08/21/22 10:47 AM) UA Ketones Negative (08/21/22 10:47 AM) UA Ca Ox Crystal Few /HPF (08/21/22 10:47 AM) UA RBC [0-2] 0-2 (08/21/22 10:47 AM) UA Leuk Est 3+ *ABN* (08/21/22 10:47 AM) UA Nitrite Negative (08/21/22 10:47 AM) UA Glucose [Negative] Negative (08/21/22 10:47 AM) UA Bacteria Many /HPF *ABN* (08/21/22 10:47 AM) UA Protein Negative (08/21/22 10:47 AM) UA Blood Trace *ABN* (08/21/22 10:47 AM) UA Mucous None Seen /HPF (08/21/22 10:47 AM) UA Spec Grav 1.025 *NA* (08/21/22 10:47 AM) UA Squam Epithelial [None Seen] Few *ABN* (08/21/22 10:47 AM) UA pH 5.5 *NA* (08/21/22 10:47 AM) UA Appear Cloudy *ABN* (08/21/22 10:47 AM) UA Culture Ind?. Not Applicable (08/21/22 10:47 AM) Social History Social History Type Response Tobacco Former tobacco user Tobacco Use:. Sex Female Patient Care team information Care Team Personnel Name: Campos Lopes MD Position: No Access Member Role: Primary Care Physician Address: Address: Internal Medicine [address] [place] [address] [place] [address]- Care Team Related Persons Name: JESUS RAMSEY Address: Home
--- OUTSIDE RECORDS SUMMARY | 2022-12-09 16:22 | XMS_ITS | Continuity of Care Document ---
Author Name Unknown Organization [facility] Address [address] [place] [address] Care Team Providers Care Health Informatics Specialist Name Role Phone Campos Lopes Primary Care Physician [phone] [facility] Date[facility] - 08/08/[address] [address] Discharge Disposition: Home or Self Care Attending Physician: Julissa Sanabria Admitting Physician: Julissa Sanabria Allergies, Adverse Reactions, Alerts No Known Medication Allergies Substance Reaction Severity Status SHELLFISH DERIVED Unknown Active nitrofurantoin Bladder pain, ineffe ctive for her infections Other Severe Active trimethoprim hives, vaginal itchi ng, tongue swelling Skin rash Severe Active iodine topical Urticaria Unknown Active EPINEPHrine topical Rapid heart beat Moderate Acti ve mirabegron Other Moderate Active Assessment and Plan Future Scheduled Tests Radiology* NM Bone Imaging [...] Status Carpal tunnel release open 12/12/17 Completed Social History Social History Type Response Tobacco Former tobacco user Tobacco Use:. Sex Female Patient Care team information Personnel Name: Campos Lopes MD Address: Address: Internal Medicine [address] [place] [address] [place] [address]- [place]
--- OUTSIDE RECORDS SUMMARY | 2022-12-09 16:22 | XMS_ITS | Continuity of Care Document ---
Author Name Unknown Organization [facility] Address [address] [place] [address] Care Team Providers Care Process Development Technician Name Role Phone Campos Lopes Primary Care Physician [facility] [facility]/22 - 07/25/[address] [address] Discharge Disposition: Home or Self Care Attending Physician: ALMA RAMIREZ Admitting Physician: ALMA RAMIREZ Allergies, Adverse Reactions, Alerts No Known Medication Allergies Substance Reaction Severity Status SHELLFISH DERIVED Unknown Active nitrofurantoin Bladder pain, ineffe ctive for her infections Other Severe Active trimethoprim hives, vaginal itchi ng, tongue swelling Skin rash Severe Active iodine topical Urticaria Unknown Active mirabegron Other Moderate Active EPINEPHrine topical Rapid heart beat Moderate Acti ve Assessment and Plan Diagnostic Tests Pending * Urine Culture 07/25/22 Future Scheduled Tests Radiology* NM Bone Imaging [...] Campos Lopes MD Address: Address: Internal Medicine [address] [place] [address] Dr Sanabria [facility] [address]
--- OUTSIDE RECORDS SUMMARY | 2022-12-09 16:22 | XMS_ITS | Continuity of Care Document ---
Author Name Unknown Organization [facility] Address [address] [place] [address] Care Team Providers Care Lead Software Architect Name Role Phone Campos Lopes Primary Care Physician [phone] Encounter [facility] Date(s): 07/05/22 - 07/05/[address] [address] Discharge Disposition: Home or Self Care Attending Physician: Campos Lopes MD Admitting Physician: Campos Lopes MD Allergies, Adverse Reactions, Alerts No Known [...] Date: 04/13/22 Status: Ordered Problem List Condition Effective Dates Status Health Status Inform ant Asthma(Confirmed) 07/23/20 Active Carpal tunnel syndrome of ri ght wrist(Confirmed) Active Chronic interstitial cystitis(Confirmed) Active Chronic obstructive lung disease(Confirmed) 12/01/20 Active Extended spectrum beta-lacta rebeka producing Klebsiella pneumoniae(Confirmed) 1 03/11/22 Active Gastroesophageal reflux disease(Confirmed) 12/06/18 Active Hypersomnia(Confirmed) Active Hypertensive disorder(Confirmed) Active Laceration of ear region(Confirmed) Active Lack of energy(Confirmed) Active Left bundle branch block(Confirmed) 12/01/20 Active Pain in right foot(Confirmed) Active Postmenopausal bleeding(Confirmed) Active Shoulder pain(Confirmed) Active Urgent desire to urinate(Confirmed) Active 1Problem added by Rule (LH_IC_MDRO_ESBL) following Urine Culture from U Cath collected on 09-MAR-2022 14:58:00 EDT tested positive for ESBL. Procedures Procedure Date Related Diagnosis Body Site Status Carpal tunnel release open 12/12/17 Completed Results Laboratory List Name Date Urinalysis Microscopic 07/05/22 Most recent to oldest [Reference Range]: 1 UA WBC [0-3] 0-3 (07/05/22 2:18 PM) UA RBC [0-2] 0-2 (07/05/22 2:18 PM) UA Bacteria Moderate /HPF *ABN* (07/05/22 2:18 PM) UA Mucous None Seen /HPF (07/05/22 2:18 PM) UA Squam Epithelial [None Seen] Rare (07/05/22 2:18 PM) UA Culture Ind?. Not Applicable (07/05/22 2:18 PM) Orders for Microbiology Reports Name Date Urine Culture 07/05/22 Microbiology Reports TEST:Urine Culture STATUS:Order in Progress BODY SITE: SOURCE:Urine, Catheterized COLLECTED DATE/TIME:07/05/22 2:18 PM PRELIMINARY REPORT >100,000 cfu/ml Enterobacter cloacae complex Susceptibility to follow. Social History Social History Type Response Tobacco Former tobacco user Tobacco Use:. Sex Female Patient Care team information Personnel Name: Campos Lopes MD Address: Address: Internal Medicine [address] [place] [address]
--- OUTSIDE RECORDS SUMMARY | 2022-12-09 16:22 | XMS_ITS | Continuity of Care Document ---
Author Name Unknown Organization [facility] Address [address] [place] [address] Care Team Providers Care Color Paste Mixing Supervisor Name Role Phone Campos Lopes Primary Care Physician [facility] Date(s): 07/13/22 - 07/13/[address] [address] Discharge Disposition: Home or Self Care Attending Physician: Campos Lopes MD Admitting Physician: Campos Lopes MD Referring Physician: Campos Lopes MD Allergies, Adverse Reactions, [...] Campos Lopes MD Address: Address: Internal Medicine [address] [place] [address] Dr Sanabria [facility], [place] [address]
--- OUTSIDE RECORDS SUMMARY | 2022-12-09 16:23 | XMS_ITS | Continuity of Care Document ---
Author Name Unknown Organization [facility] Address [address] [place] [address] Care Team Providers Care Production Graphic Designer Name Role Phone Campos Lopes Primary Care Physician Encounter [facility] Date(s): 12/08/22 - 12/08/[address] [address] Discharge Disposition: Home or Self Care Attending Physician: Julissa Sanabria MD Admitting Physician: Julissa Sanabria MD Referring Physician: Campos Lopes MD Allergies, [...] Results Laboratory List Name Date Urinalysis Microscopic 12/08/22 Urinalysis with Microscopic 12/08/22 Most recent to oldest [Reference Range]: 1 UA Color Yellow (12/08/22 12:22 PM) UA WBC [0-3] 0-3 (12/08/22 12:22 PM) UA Urobilinogen Normal (12/08/22 12:22 PM) UA Bili [Negative] Negative (12/08/22 12:22 PM) UA Ketones Negative (12/08/22 12:22 PM) UA RBC [0-2] 0-2 (12/08/22 12:22 PM) UA Leuk Est Negative (12/08/22 12:22 PM) UA Nitrite Negative (12/08/22 12:22 PM) UA Glucose [Negative] Negative (12/08/22 12:22 PM) UA Bacteria Rare /HPF (12/08/22 12:22 PM) UA Protein Negative (12/08/22 12:22 PM) UA Blood Negative (12/08/22 12:22 PM) UA Mucous None Seen /HPF (12/08/22 12:22 PM) UA Spec Grav 1.020 *NA* (12/08/22 12:22 PM) UA Squam Epithelial [None Seen] Rare (12/08/22 12:22 PM) UA pH 6.0 *NA* (12/08/22 12:22 PM) UA Appear Clear (12/08/22 12:22 PM) UA Culture Ind?. Not Applicable (12/08/22 12:22 PM) Orders for Microbiology Reports Name Date Urine Culture 12/08/22 Microbiology Reports TEST:Urine Culture STATUS:Order in Progress BODY SITE: SOURCE:Urine, Clean Catch COLLECTED DATE/TIME:12/08/22 12:22 PM PRELIMINARY REPORT 10,000 - 100,000 cfu/ml alpha hemolytic Strep ORGANISM:Aerococcus viridans Social History Social History Type Response Tobacco Former tobacco user Tobacco Use:. Sex Female Patient Care team information Care Team Personnel Name: Campos Lopes MD Position: No Access Member Role: Primary Care Physician Address: Address: Internal Medicine [address] [place] [address] [address] [place], [place] [address] Care Team Related Persons Name: JESUS RAMSEY Address: Home
--- OUTSIDE RECORDS SUMMARY | 2022-12-09 16:23 | XMS_ITS ---
Author Name Campos Lopes Organization Unknown Care Team Providers Care Missile Inspector Preflight Name Role Phone MosesNate rasconothy Unavailable Unavailable PROBLEMS Type Condition ICD9-CM Code HSW23-VS Code Onset Dates Condition Status SNOMED Code Problem Pelvic pain 625.9 Active 38865364 Problem Chronic obstructive asthma, unspecified 493.20 Active 850761699 Problem Vaginal discharge 623.5 Active 190087 006 Problem Hyperthyroid 242.90 Active 48219881 Problem HTN 401.1 Active 38010085 ALLERGIES Substance Reaction Event Type Date Status Iodine Unknown Drug Allergy Apr, Active EPINEPHrine Unknown Drug Allergy Apr, Active ENCOUNTERS Encounter Location Date Diagnosis [facility] [address] [place] [address] Apr, Vaginal discharge 623.5 ; Pelvic pain 625.9 ; HTN 401.1 ; Hyperthyroid 242.90 and Chronic obstructive asthma, unspecified 493.20 IMMUNIZATIONS No Known Immunizations SOCIAL HISTORY Qualifiers Date Former Smoker REASON FOR REFERRAL FUNCTIONAL STATUS PLAN OF CARE Activity Details VITAL SIGNS Blood pressure systolic 122 Blood pressure diastolic 80 2014-04 MEDICATIONS Medication Instructions Dosage Frequency Start Date End Date Duration Status Atenolol 25 MG Orally Once a day 1 tablet 24h Active Estrace 0.1 MG/GM Active Singulair Active Vitamin D Active ProAir HFA 108 (90 Base) MCG/ACT Inhalation every 4 hrs 2 puffs as needed 4h Active PROCEDURES Procedure Date Ordered Result Body Site Wet smear April 18, 2014 ASSAY OF BODY FLUID ACIDITY April 18, 2014 RESULTS No Results REASON FOR VISIT Insurance Providers Health Insurance Type Health Plan Insurance Address Health Plan Insurance Phone Health Plan Insurance Name Health Plan Coverage Dates Member ID Patient Relationship to Subscriber Patient Address Patient Phone Patient Name Patient Date of Subscriber ID Subscriber Name Subscriber Date of Group No MEDICAID [place] [address] [facility] [address] [place]ID [place] self Maureen Milton reddy [id number] MEDICARE [place] [address] [facility] [address] MED[place]ARE [place] self Maureen [place] reddy [id number] MEDICAL (GENERAL) HISTORY Type Description Date Medical History , 1 adopted child Medical History Hypertension Medical History Hyperthyroid Medical History asthma
--- OUTSIDE RECORDS SUMMARY | 2022-12-09 16:23 | XMS_ITS | Continuity of Care Document ---
Author Name Unknown Organization [facility] Address [address] [place] [address] Care Team Providers Care Animal Eviscerator Name Role Phone Campos Lopes Primary Care Physician [facility] Date[facility] 11/08/22 - 11/08/[address] [address] Discharge Disposition: Home or Self Care Attending [...] Results Laboratory List Name Date Urinalysis Microscopic 11/08/22 Urinalysis with Microscopic 11/08/22 Most recent to oldest [Reference Range]: 1 UA Color Straw (11/08/22 11:24 AM) UA WBC [0-3] 0-3 (11/08/22 11:24 AM) UA Urobilinogen Normal (11/08/22 11:24 AM) UA Bili [Negative] Negative (11/08/22 11:24 AM) UA Ketones Negative (11/08/22 11:24 AM) UA RBC [0-2] 0-2 (11/08/22 11:24 AM) UA Leuk Est Negative (11/08/22 11:24 AM) UA Nitrite Negative (11/08/22 11:24 AM) UA Glucose [Negative] Negative (11/08/22 11:24 AM) UA Bacteria Rare /HPF (11/08/22 11:24 AM) UA Protein Negative (11/08/22 11:24 AM) UA Blood Negative (11/08/22 11:24 AM) UA Mucous None Seen /HPF (11/08/22 11:24 AM) UA Spec Grav >=1.030 *NA* (11/08/22 11:24 AM) UA Squam Epithelial [None Seen] None See n (11/08/22 11:24 AM) UA pH 5.0 *NA* (11/08/22 11:24 AM) UA Appear Cloudy *ABN* (11/08/22 11:24 AM) UA Culture Ind?. Not Applicable (11/08/22 11:24 AM) UA Amorph Moderate /HPF (11/08/22 11:24 AM) Orders for Microbiology Reports Name Date Urine Culture 11/08/22 Microbiology Reports TEST:Urine Culture STATUS:Order in Progress BODY SITE: SOURCE:Urine, Clean Catch COLLECTED DATE/TIME:11/08/22 11:24 AM PRELIMINARY REPORT No growth at 24 hours. Social History Social History Type Response Tobacco Former tobacco user Tobacco Use:. Sex Female Patient Care team information Personnel Name: Campos Lopes MD Address: Address: Internal Medicine [address] [place] [address]
--- OUTSIDE RECORDS SUMMARY | 2022-12-09 16:23 | XMS_ITS | Continuity of Care Document ---
Author Name Unknown Organization [facility] Address [address] [place] [address] Care Team Providers Care Link Trainer Operator Name Role Phone Campos Lopes Primary Care Physician [phone] [facility] Date[facility] 11/16/22 - 11/16/[address] [phone] Discharge Disposition: Home or Self Care Attending [...] Campos Lopes MD Address: Address: Internal Medicine [address] [place] [address] Dr Sanabria [facility] [address]
--- OUTSIDE RECORDS SUMMARY | 2022-12-09 16:23 | XMS_ITS | Continuity of Care Document ---
Author Name Unknown Organization [facility] Address [address] [place] [address] Care Team Providers Care Urban Design Consultant Name Role Phone Campos Lopes Primary Care Physician Encounter [facility] Date(s): 08/08/22 - 08/08/[address] [address] Discharge Disposition: Home or Self Care Attending [...] [email or web address] Other Moderate Active Assessment and Plan Diagnostic Tests Pending * Urine Culture 08/08/22 Future Scheduled Tests Radiology* NM Bone Imaging [...] Results Laboratory List Name Date Urinalysis Microscopic 08/08/22 Urinalysis with Micro if Indicated and C ulture if Indicated 08/08/22 Most recent to oldest [Reference Range]: 1 UA Color Yellow (08/08/22 11:58 AM) UA WBC [0-3] 10-25 *ABN* (08/08/22 11:58 AM) UA Urobilinogen Normal (08/08/22 11:58 AM) UA Bili [Negative] Negative (08/08/22 11:58 AM) UA Ketones Negative (08/08/22 11:58 AM) UA Ca Ox Crystal Few /HPF (08/08/22 11:58 AM) UA RBC [0-2] 0-2 (08/08/22 11:58 AM) UA Leuk Est Negative (08/08/22 11:58 AM) UA Nitrite Negative (08/08/22 11:58 AM) UA Glucose [Negative] Negative (08/08/22 11:58 AM) UA Bacteria Few /HPF *ABN* (08/08/22 11:58 AM) UA Protein Negative (08/08/22 11:58 AM) UA Blood Negative (08/08/22 11:58 AM) UA Mucous Moderate /HPF *ABN* (08/08/22 11:58 AM) UA Spec Grav >=1.030 *NA* (08/08/22 11:58 AM) UA Squam Epithelial [None Seen] Moderate *ABN* (08/08/22 11:58 AM) UA pH 6.0 *NA* (08/08/22 11:58 AM) UA Appear Hazy *ABN* (08/08/22 11:58 AM) UA Culture Ind?. Indicated (08/08/22 11:58 AM) Social History Social History Type Response Tobacco Former tobacco user Tobacco Use:. Sex Female Patient Care team information Personnel Name: Campos Lopes MD Address: Address: Internal Medicine [address] [place] [address] Dr Sanabria [facility] [address]
--- OUTSIDE RECORDS SUMMARY | 2022-12-09 16:23 | XMS_ITS | Continuity of Care Document ---
Author Name Unknown Organization [facility] Address [address] [place] [address] Care Team Providers Care Water Resources Engineer Name Role Phone Campos Lopes Primary Care Physician [phone] [facility] Date(s): 09/04/22 - 09/04/[address] [address] Discharge Disposition: Home or Self Care Attending [...] Plan Diagnostic Tests Pending * Urine Culture 09/04/22 Future Scheduled Tests Radiology* NM Bone Imaging [...] Results Laboratory List Name Date Urinalysis Microscopic 09/04/22 Urinalysis with Microscopic 09/04/22 Most recent to oldest [Reference Range]: 1 UA Color Dark Yellow (09/04/22 11:34 AM) UA WBC [0-3] 0-3 (09/04/22 11:34 AM) UA Urobilinogen Normal (09/04/22 11:34 AM) UA Bili [Negative] 1+ *ABN* (09/04/22 11:34 AM) UA Ketones Negative (09/04/22 11:34 AM) UA Ca Ox Crystal Rare /HPF (09/04/22 11:34 AM) UA RBC [0-2] 0-2 (09/04/22 11:34 AM) UA Leuk Est Negative (09/04/22 11:34 AM) UA Nitrite Negative (09/04/22 11:34 AM) UA Glucose [Negative] Negative (09/04/22 11:34 AM) UA Bacteria Moderate /HPF *ABN* (09/04/22 11:34 AM) UA Protein Negative (09/04/22 11:34 AM) UA Blood Negative (09/04/22 11:34 AM) UA Mucous Moderate /HPF *ABN* (09/04/22 11:34 AM) UA Spec Grav >=1.030 *NA* (09/04/22 11:34 AM) UA Squam Epithelial [None Seen] Few *ABN* (09/04/22 11:34 AM) UA pH 5.5 *NA* (09/04/22 11:34 AM) UA Appear Hazy *ABN* (09/04/22 11:34 AM) UA Culture Ind?. Not Applicable (09/04/22 11:34 AM) Urine Srce Clean Catch (09/04/22 11:34 AM) Social History Social History Type Response Tobacco Former tobacco user Tobacco Use:. Sex Female Patient Care team information Personnel Name: Campos Lopes MD Address: Address: Internal Medicine [address] [place] [id number]
--- OUTSIDE RECORDS SUMMARY | 2022-12-09 16:23 | XMS_ITS | Continuity of Care Document ---
Author Name Unknown Organization [facility] Address [address] [place] [address] Care Team Providers Care Director Of Women'S Services Name Role Phone Campos Lopes Primary Care Physician [phone] [facility] Date(s): 08/10/22 - 08/10/[address] [phone] Discharge Disposition: Home or Self Care Attending Physician: Julissa Sanabria MD Admitting Physician: Julissa Sanabria MD Referring Physician: Julissa Sanabria MD Allergies, Adverse Reactions, [...] Campos Lopes MD Address: Address: Internal Medicine [address] [place] [address] Dr Sanabria [facility], [place] [address]
--- OUTSIDE RECORDS SUMMARY | 2022-12-09 16:23 | XMS_ITS | Continuity of Care Document ---
Author Name Unknown Organization [facility] Address [address] [place] [address] Care Team Providers Care Basketball Commentator Name Role Phone Campos Lopes Primary Care Physician [phone] Encounter [facility] Date(s): 11/19/22 - 11/19/[address] [address] Discharge Disposition: Home or Self Care Attending [...] Plan Diagnostic Tests Pending * Urine Culture 11/19/22 Future Scheduled Tests Radiology* NM Bone Imaging [...] Results Laboratory List Name Date Urinalysis Microscopic 11/19/22 Urinalysis with Microscopic 11/19/22 Most recent to oldest [Reference Range]: 1 UA Color Yellow (11/19/22 10:35 AM) UA WBC [0-3] 0-3 (11/19/22 10:35 AM) UA Urobilinogen Normal (11/19/22 10:35 AM) UA Bili [Negative] Negative (11/19/22 10:35 AM) UA Ketones Negative (11/19/22 10:35 AM) UA Ca Ox Crystal Rare /HPF (11/19/22 10:35 AM) UA RBC [0-2] 0-2 (11/19/22 10:35 AM) UA Leuk Est Negative (11/19/22 10:35 AM) UA Nitrite Negative (11/19/22 10:35 AM) UA Glucose [Negative] Negative (11/19/22 10:35 AM) UA Bacteria Rare /HPF (11/19/22 10:35 AM) UA Protein Negative (11/19/22 10:35 AM) UA Blood Negative (11/19/22 10:35 AM) UA Mucous Few /HPF *ABN* (11/19/22 10:35 AM) UA Spec Grav >=1.030 *NA* (11/19/22 10:35 AM) UA Squam Epithelial [None Seen] Rare (11/19/22 10:35 AM) UA pH 5.5 *NA* (11/19/22 10:35 AM) UA Appear Clear (11/19/22 10:35 AM) UA Culture Ind?. Not Applicable (11/19/22 10:35 AM) Social History Social History Type Response Tobacco Former tobacco user Tobacco Use:. Sex Female Patient Care team information Care Team Personnel Name: Campos Lopes MD Position: No Access Member Role: Primary Care Physician Address: Address: Internal Medicine [address] [place] [address] Dr Sanabria [place], [place] [address] Care Team Related Persons Name: JESUS RAMSEY Address: Home
--- OUTSIDE RECORDS SUMMARY | 2022-12-09 16:23 | XMS_ITS | Continuity of Care Document ---
Author Name Unknown Organization [facility] Address [address] [place] [address] Care Team Providers Care Program Aide Group Work Name Role Phone Campos Lopes Primary Care Physician Encounter [facility] Date(s): 09/07/22 - 09/07/[address] [address] Discharge Disposition: Home or Self Care Attending [...] Results Laboratory List Name Date Urinalysis Microscopic 09/07/22 Urinalysis with Microscopic 09/07/22 Most recent to oldest [Reference Range]: 1 UA Color Yellow (09/07/22 10:22 AM) UA WBC [0-3] 0-3 (09/07/22 10:22 AM) UA Urobilinogen Normal (09/07/22 10:22 AM) UA Bili [Negative] Negative (09/07/22 10:22 AM) UA Ketones Negative (09/07/22 10:22 AM) UA RBC [0-2] 0-2 (09/07/22 10:22 AM) UA Leuk Est Negative (09/07/22 10:22 AM) UA Nitrite Negative (09/07/22 10:22 AM) UA Glucose [Negative] Negative (09/07/22 10:22 AM) UA Bacteria None Seen /HPF (09/07/22 10:22 AM) UA Protein Negative (09/07/22 10:22 AM) UA Blood Negative (09/07/22 10:22 AM) UA Mucous None Seen /HPF (09/07/22 10:22 AM) UA Spec Grav 1.015 *NA* (09/07/22 10:22 AM) UA Squam Epithelial [None Seen] Rare (09/07/22 10:22 AM) UA pH 7.0 *NA* (09/07/22 10:22 AM) UA Appear Clear (09/07/22 10:22 AM) UA Culture Ind?. Not Applicable (09/07/22 10:22 AM) Orders for Microbiology Reports Name Date Urine Culture 09/07/22 Microbiology Reports TEST:Urine Culture STATUS:Order in Progress BODY SITE: SOURCE:Urine, Catheterized COLLECTED DATE/TIME:09/07/22 10:22 AM PRELIMINARY REPORT <10,000 cfu/ml Mixed Gram Positive Marivel Social History Social History Type Response Tobacco Former tobacco user Tobacco Use:. Sex Female Patient Care team information Personnel Name: Campos Lopes MD Address: Address: Internal Medicine [address] [place] [address] Dr Sanabria [facility], [place] [address]
--- OUTSIDE RECORDS SUMMARY | 2022-12-09 16:23 | XMS_ITS | Continuity of Care Document ---
Author Name Unknown Organization [facility] Address [address] [place] [address] Care Team Providers Care Environment Artist Name Role Phone Campos Lopes Primary Care Physician [facility] Date[facility] 10/23/22 - 10/23/[address] [address] Discharge Disposition: Home or Self Care Attending [...] Plan Diagnostic Tests Pending * Urine Culture 10/23/22 Future Scheduled Tests Radiology* NM Bone Imaging [...] Results Laboratory List Name Date Urinalysis Microscopic 10/23/22 Urinalysis with Microscopic 10/23/22 Most recent to oldest [Reference Range]: 1 UA Color Yellow (10/23/22 10:53 AM) UA WBC [0-3] 0-3 (10/23/22 10:53 AM) UA Urobilinogen Normal (10/23/22 10:53 AM) UA Bili [Negative] Negative (10/23/22 10:53 AM) UA Ketones Negative (10/23/22 10:53 AM) UA RBC [0-2] 0-2 (10/23/22 10:53 AM) UA Leuk Est Negative (10/23/22 10:53 AM) UA Nitrite Negative (10/23/22 10:53 AM) UA Glucose [Negative] Negative (10/23/22 10:53 AM) UA Bacteria Rare /HPF (10/23/22 10:53 AM) UA Protein Negative (10/23/22 10:53 AM) UA Blood Trace *ABN* (10/23/22 10:53 AM) UA Mucous Rare /HPF *ABN* (10/23/22 10:53 AM) UA Spec Grav 1.020 *NA* (10/23/22 10:53 AM) UA Squam Epithelial [None Seen] Rare (10/23/22 10:53 AM) UA pH 6.5 *NA* (10/23/22 10:53 AM) UA Appear Clear (10/23/22 10:53 AM) UA Culture Ind?. Not Applicable (10/23/22 10:53 AM) Social History Social History Type Response Tobacco Former tobacco user Tobacco Use:. Sex Female Patient Care team information Personnel Name: Campos Lopes MD Address: Address: Internal Medicine [address] [place] [address] [place]
== END 2022-12-09 16:21 | disposition home or self-care (01) ==
LOC: NCHCN 16:20
PROVIDERS: PCP Internal Medicine; Visit Provider Family Medicine
DX: R10.2 Pelvic and perineal pain (principal)
CPT/HCPCS: 87480; 87510; 87660

== ENCOUNTER 2022-12-16 12:36 | Outpatient (REF) | payer MEDICARE, MEDICAID, SELFPAY ==
[2022-12-16 14:32] LABS: Bilirubin Negative (Negative); Blood Trace-intact (Negative); Clarity Cloudy (Clear); Glucose Negative (Negative); Ketones Negative (Negative); Leukocyte Esterase Trace (Negative); Nitrite Positive (Negative); Urobilinogen 0.2 mg/dL (Up to 0.2)
[2022-12-16 14:43] LABS: Bacteria Many HPF (Negative); C & S Indicated? C&S Done As Ordered; Casts Negative LPF (Negative); Crystals Negative HPF (Negative); Epithelial Cells Few HPF (Negative); Mucus Trace (Negative); RBC 0-2 HPF (0-2)
== END 2022-12-16 12:37 | disposition home or self-care (01) ==
LOC: NCHCN 12:36
PROVIDERS: PCP Internal Medicine; Visit Provider Internal Medicine
DX: N39.0 Urinary tract infection, site not specified (principal)
CPT/HCPCS: 87077; 81003; 81015; 87086; 87186

== ENCOUNTER 2023-01-11 14:04 | Outpatient (REF) | payer MEDICARE, MEDICAID, SELFPAY ==
--- OUTSIDE RECORDS SUMMARY | 2023-01-11 14:08 | XMS_ITS | Continuity of Care Document ---
Author Name Unknown Organization [facility] Address [address] [place] [address] Care Team Providers Care Photographic Press Screwmaker Name Role Phone Campos Lopes Primary Care Physician [facility] Date[facility] 01/06/23 - 01/06/[address] [address] Discharge Disposition: Home or Self Care Attending [...] Results Laboratory List Name Date Urinalysis Microscopic 01/06/23 Urinalysis with Microscopic 01/06/23 Most recent to oldest [Reference Range]: 1 UA Color Yellow (01/06/23 1:34 PM) UA WBC [0-3] 0-3 (01/06/23 1:34 PM) UA Urobilinogen Normal (01/06/23 1:34 PM) UA Bili [Negative] Negative (01/06/23 1:34 PM) UA Ketones Negative (01/06/23 1:34 PM) UA RBC [0-2] 0-2 (01/06/23 1:34 PM) UA Leuk Est Negative (01/06/23 1:34 PM) UA Nitrite Negative (01/06/23 1:34 PM) UA Glucose [Negative] Negative (01/06/23 1:34 PM) UA Bacteria Rare /HPF (01/06/23 1:34 PM) UA Protein Negative (01/06/23 1:34 PM) UA Blood 1+ *ABN* (01/06/23 1:34 PM) UA Mucous None Seen /HPF (01/06/23 1:34 PM) UA Spec Grav 1.020 *NA* (01/06/23 1:34 PM) UA Squam Epithelial [None Seen] None See n (01/06/23 1:34 PM) UA pH 6.0 *NA* (01/06/23 1:34 PM) UA Appear Cloudy *ABN* (01/06/23 1:34 PM) UA Culture Ind?. Not Applicable (01/06/23 1:34 PM) UA Amorph Moderate /HPF (01/06/23 1:34 PM) Orders for Microbiology Reports Name Date Urine Culture 01/06/23 Microbiology Reports TEST:Urine Culture STATUS:Order in Progress BODY SITE: SOURCE:Urine, Clean Catch COLLECTED DATE/TIME:01/06/23 1:34 PM PRELIMINARY REPORT No growth at 24 hours. Social History Social History Type Response Tobacco Former tobacco user Tobacco Use:. Sex Female Patient Care team information Care Team Personnel Name: Campos Lopes MD Position: No Access Member Role: Primary Care Physician Address: Address: Internal Medicine [address] [place] [address] [place] [address]- Care Team Related Persons Name: JESUS RAMSEY Address: Home
--- OUTSIDE RECORDS SUMMARY | 2023-01-11 14:08 | XMS_ITS | Continuity of Care Document ---
Author Name Unknown Organization [facility] Address [address] [place] [address] Care Team Providers Care Covered Buckle Assembler Name Role Phone Campos Lopes Primary Care Physician [facility] [facility] 12/[facility] - 12/30/[address] [address] Discharge Disposition: Home or Self Care Attending Physician: Julissa Logan Admitting Physician: Julsisa Logan Referring Physician: Julissa Logan Allergies, Adverse Reactions, Alerts No Known Medication [...] Carpal tunnel release open 12/12/17 Completed Results Orders for Microbiology Reports Name Date Sputum Culture 12/30/22 Microbiology Reports TEST:Sputum Culture STATUS:Order in Progress BODY SITE: SOURCE:Sputum COLLECTED DATE/TIME:12/30/22 9:22 AM PRELIMINARY REPORT Normal Marivel at 24 hours STAIN REPORT Rare Gram Positive Bacilli Few Gram Positive Cocci Rare White Blood Cells Few epithelial cells Social History Social History Type Response Tobacco Former tobacco user Tobacco Use:. Sex Female Patient Care team information Care Team Personnel Name: Campos Lopes MD Position: No Access Member Role: Primary Care Physician Address: Address: Internal Medicine [address] [place] [address] Care Team Related Persons Name: JESUS RAMSEY Address: Home
--- OUTSIDE RECORDS SUMMARY | 2023-01-11 14:08 | XMS_ITS | Continuity of Care Document ---
Author Name Unknown Organization [facility] Address [address] [place] [address] Care Team Providers Care Dials Inspector Name Role Phone Campos Lopes Primary Care Physician [phone] [facility] Date[facility] 12/11/22 - 12/11/[address] [address] Discharge Disposition: Home or Self Care Attending [...] Plan Diagnostic Tests Pending * Urine Culture 12/11/22 Future Scheduled Tests Radiology* NM Bone Imaging [...] Results Laboratory List Name Date Urinalysis Microscopic 12/11/22 Urinalysis with Micro if Indicated and C ulture if Indicated 12/11/22 Most recent to oldest [Reference Range]: 1 UA Color Yellow (12/11/22 3:04 PM) UA WBC [0-3] 5-10 *ABN* (12/11/22 3:04 PM) UA Urobilinogen Normal (12/11/22 3:04 PM) UA Bili [Negative] Negative (12/11/22 3:04 PM) UA Ketones Negative (12/11/22 3:04 PM) UA RBC [0-2] 0-2 (12/11/22 3:04 PM) UA Leuk Est Trace *ABN* (12/11/22 3:04 PM) UA Nitrite Negative (12/11/22 3:04 PM) UA Glucose [Negative] Negative (12/11/22 3:04 PM) UA Bacteria Rare /HPF (12/11/22 3:04 PM) UA Protein Negative (12/11/22 3:04 PM) UA Blood Negative (12/11/22 3:04 PM) UA Mucous None Seen /HPF (12/11/22 3:04 PM) UA Spec Grav 1.020 *NA* (12/11/22 3:04 PM) UA Squam Epithelial [None Seen] Few *ABN* (12/11/22 3:04 PM) UA pH 6.0 *NA* (12/11/22 3:04 PM) UA Appear Clear (12/11/22 3:04 PM) UA Culture Ind?. Indicated (12/11/22 3:04 PM) Social History Social History Type Response Tobacco Former tobacco user Tobacco Use:. Sex Female Patient Care team information Care Team Personnel Name: Campos Lopes MD Position: No Access Member Role: Primary Care Physician Address: Address: Internal Medicine [address] [place] [address] [place] [address] [place] Care Team Related Persons Name: JESUS RAMSEY Address: Home
[2023-01-11 16:45] LABS: Abs Immature Grans 0.04 10^3/uL (0.0-0.06); Absolute Basophil Count 0.03 10^3/uL (0.0-0.2); Absolute Eosinophil Count 0.01 10^3/uL (0.0-0.7); Absolute Monocyte Count 0.24 10^3/uL (0.1-0.8); Absolute Neutrophil Count 6.48 10^3/uL (1.2-6.7); Basophils % 0.4; Eosinophils % 0.1; HCT 43.2 % (36.0-46.0); Immature Grans % 0.5; Lymphocytes % 10.5; MCH 27.7 pg (27.0-33.0); MCHC 32.4 % (32.0-36.0); MCV 86 fL (80-95); MPV 9.7 fL (8.0-11.0); Monocytes % 3.2; Neutrophils % 85.3; Platelet Count 242 10^3/uL (130-400); RBC 5.05 10^6/uL (3.93-5.22); RDW 12.6 % (11.7-14.6); RDW-SD 39.2 fL
[2023-01-11 18:08] LABS: ALT 28 U/L (14-59); AST 17 U/L (15-37); Albumin 3.8 g/dL (3.4-5.0); Alkaline Phosphatase 73 U/L (46-116); Anion Gap 10.7 mmol/L (3-11); BUN 18 mg/dL (7-18); Bilirubin, Total 0.4 mg/dL (0.2-1.0); CO2 26.3 mmol/L (21.0-32.0); CREATININE 0.6 mg/dL (0.55-1.02); Calcium 9.1 mg/dL (8.5-10.1); Chloride 108 mmol/L (98-107); Estimated GFR 90.68 (mL/min/1.73m2); Glucose 122 mg/dL (74-106); Potassium 4.7 mmol/L (3.5-5.1); Sodium 145 mmol/L (136-145); Total Protein 6.8 g/dL (6.4-8.2)
[2023-01-11 18:13] LABS: TSH < 0.01 uIU/mL (0.36-3.74)
[2023-01-11 18:29] LABS: Lipase 41 U/L (16-77)
[2023-01-12 20:31] LABS: T3, Total 230 ng/dL (97-169)
== END 2023-01-11 14:05 | disposition home or self-care (01) ==
LOC: NCHCN 14:04
PROVIDERS: PCP Internal Medicine; Visit Provider Internal Medicine
DX: R10.11 Right upper quadrant pain (principal); N30.10 Interstitial cystitis (chronic) without hematuria; E05.80 Other thyrotoxicosis without thyrotoxic crisis or storm; I10 Essential (primary) hypertension; J44.9 Chronic obstructive pulmonary disease, unspecified
CPT/HCPCS: 80053; 83690; 84439; 84443; 84480; 85025

== ENCOUNTER 2023-03-17 15:29 | Outpatient (REF) | payer MEDICARE, MEDICAID, SELFPAY ==
[2023-03-17 14:59] LABS: Abs Immature Grans 0.01 10^3/uL (0.0-0.06); Absolute Basophil Count 0.02 10^3/uL (0.0-0.2); Absolute Eosinophil Count 0.17 10^3/uL (0.0-0.7); Absolute Lymphocyte Count 1.67 10^3/uL (1.2-3.4); Absolute Monocyte Count 0.61 10^3/uL (0.1-0.8); Absolute Neutrophil Count 4.88 10^3/uL (1.2-6.7); Basophils % 0.3; Eosinophils % 2.3; Immature Grans % 0.1; Lymphocytes % 22.7; MCH 27.2 pg (27.0-33.0); MCHC 31.8 % (32.0-36.0); MCV 86 fL (80-95); MPV 9.9 fL (8.0-11.0); Monocytes % 8.3; Neutrophils % 66.3; Platelet Count 265 10^3/uL (130-400); RBC 5.14 10^6/uL (3.93-5.22); RDW 12.3 % (11.7-14.6); RDW-SD 38.9 fL; WBC 7.36 10^3/uL (4.4-10.8)
[2023-03-17 16:12] LABS: ALT 20 U/L (14-59); AST 18 U/L (15-37); Albumin 3.7 g/dL (3.4-5.0); Alkaline Phosphatase 73 U/L (46-116); Anion Gap 3.5 mmol/L (3-11); BUN 14 mg/dL (7-18); Bilirubin, Total 0.6 mg/dL (0.2-1.0); CO2 29.5 mmol/L (21.0-32.0); CREATININE 0.6 mg/dL (0.55-1.02); Calcium 9.4 mg/dL (8.5-10.1); Chloride 106 mmol/L (98-107); Estimated GFR 90.12 (mL/min/1.73m2); Glucose 93 mg/dL (74-106); Potassium 4.3 mmol/L (3.5-5.1); Sodium 139 mmol/L (136-145)
[2023-03-17 16:16] LABS: TSH < 0.01 uIU/mL (0.36-3.74)
[2023-03-19 22:25] LABS: T3, Total 201 ng/dL (97-169)
== END 2023-03-17 15:30 | disposition home or self-care (01) ==
LOC: NCHCN 15:29
PROVIDERS: PCP Internal Medicine; Visit Provider Internal Medicine
DX: E05.90 Thyrotoxicosis, unspecified without thyrotoxic crisis or storm (principal); Z01.818 Encounter for other preprocedural examination; Z01.812 Encounter for preprocedural laboratory examination
CPT/HCPCS: 80053; 84439; 84443; 84480; 85025

== ENCOUNTER 2023-03-23 15:58 | Outpatient (REF) | payer MEDICARE, MEDICAID, SELFPAY | END 2023-03-23 15:59 | disposition home or self-care (01) | LOC: LBN 15:58 | PROVIDERS: PCP Internal Medicine; Visit Provider Obstetrics & Gynecology Gynecology | DX: N39.0 Urinary tract infection, site not specified (principal); R10.2 Pelvic and perineal pain | CPT/HCPCS: 87077; 87086; 87186 ==

== ENCOUNTER 2023-05-09 00:46 | Outpatient (CLI) | payer MEDICARE, MEDICAID, SELFPAY ==
--- NOTE | 2023-05-09 13:50 | DI.US_ITS ---
Exam(s) US PELVIS EXAM: US PELVIS CLINICAL HISTORY: pelvic pain,r10.2 TECHNIQUE: Transabdominal was performed using standard protocol. The patient declined trans vagina l imaging. COMPARISON: CT CT ABDOMEN PELVIS W from 02/29/2020 FINDINGS: The exam is limited by poor bladder distension. UTERUS: Anteverted. 6.8 x 3.0 x 4.4 cm Endometrium: Not well seen. Cannot be measured. Myometrium: 5 millimeter calcification. Cervix: Unremarkable. OVARIES: Unable to be visualized. CUL-DE-SAC: Free fluid: None. IMPRESSION: Limited exam due to lack of urinary bladder distention and lack of transvaginal imaging. Uterus unre markable. Ovaries not visualized. DATA REPOSITORY:
== END 2023-05-09 01:06 ==
LOC: DI 00:46
PROVIDERS: PCP Internal Medicine; Visit Provider Obstetrics & Gynecology Gynecology
DX: R10.2 Pelvic and perineal pain (principal)
CPT/HCPCS: 76856

== ENCOUNTER 2023-05-31 21:20 | Outpatient (REF) | payer MEDICARE, MEDICAID, SELFPAY ==
[2023-05-31 21:14] LABS: ALT 19 U/L (14-59); AST 19 U/L (15-37); Albumin 3.7 g/dL (3.4-5.0); Alkaline Phosphatase 81 U/L (46-116); Anion Gap 8.6 mmol/L (3-11); BUN 14 mg/dL (7-18); Bilirubin, Total 0.5 mg/dL (0.2-1.0); CO2 28.4 mmol/L (21.0-32.0); CREATININE 0.7 mg/dL (0.55-1.02); Calcium 8.4 mg/dL (8.5-10.1); Chloride 105 mmol/L (98-107); Estimated GFR 86.83 (mL/min/1.73m2); Glucose 88 mg/dL (74-106); Potassium 4.1 mmol/L (3.5-5.1); Sodium 142 mmol/L (136-145); Total Protein 6.5 g/dL (6.4-8.2)
== END 2023-05-31 21:21 | disposition home or self-care (01) ==
LOC: NCHCN 21:20
PROVIDERS: PCP Internal Medicine; Visit Provider Internal Medicine
DX: I10 Essential (primary) hypertension (principal)
CPT/HCPCS: 80053

== ENCOUNTER 2023-07-07 16:41 | Outpatient (REF) | payer MEDICARE, MEDICAID, SELFPAY | END 2023-07-07 16:42 | disposition home or self-care (01) | LOC: NCHCN 16:41 | PROVIDERS: PCP Internal Medicine; Visit Provider Internal Medicine | DX: N30.10 Interstitial cystitis (chronic) without hematuria (principal) | CPT/HCPCS: 87086 ==

== ENCOUNTER → 2023-11-16 09:40 | Outpatient (BNVA) | payer MEDICARE, MEDICAID, SELFPAY | PROVIDERS: PCP Internal Medicine; Referring Provider Internal Medicine; Visit Provider Physician Assistant Surgical | DX: J44.9 Chronic obstructive pulmonary disease, unspecified (principal); R91.1 Solitary pulmonary nodule; Z87.891 Personal history of nicotine dependence | CPT/HCPCS: 99214 ==

== ENCOUNTER 2023-12-05 10:52 | Outpatient (REF) | payer MEDICARE, MEDICAID, SELFPAY ==
[2023-12-05 15:16] LABS: Hemoglobin A1C 5.2 % (<5.7)
[2023-12-05 15:18] LABS: Abs Immature Grans 0.04 10^3/uL (0.0-0.06); Absolute Basophil Count 0.05 10^3/uL (0.0-0.2); Absolute Eosinophil Count 0.18 10^3/uL (0.0-0.7); Absolute Lymphocyte Count 1.54 10^3/uL (1.2-3.4); Absolute Monocyte Count 0.54 10^3/uL (0.1-0.8); Absolute Neutrophil Count 5.28 10^3/uL (1.2-6.7); Basophils % 0.7; Eosinophils % 2.4; HCT 47.2 % (36.0-46.0); HGB 15.4 g/dL (11.2-15.7); Immature Grans % 0.5; Lymphocytes % 20.2; MCHC 32.6 % (32.0-36.0); MCV 89 fL (80-95); MPV 9.3 fL (8.0-11.0); Monocytes % 7.1; Neutrophils % 69.1; Platelet Count 255 10^3/uL (130-400); RBC 5.31 10^6/uL (3.93-5.22); RDW 12.9 % (11.7-14.6); RDW-SD 42.3 fL; WBC 7.63 10^3/uL (4.4-10.8)
[2023-12-05 15:44] LABS: Vitamin B12 484 pg/mL (193-986)
[2023-12-05 15:47] LABS: Folate > 20.0 ng/mL (8.6-20.0)
[2023-12-05 15:49] LABS: ESR 26 mm/hr (0-30)
[2023-12-05 16:25] LABS: Creatine Kinase 142 U/L (26-192)
[2023-12-08 11:53] LABS: Albumin 63.4 % (55.8-66.1); Albumin g/dL 4.4 g/dL (3.6-5.2); Immunotyping, Serum (See Note)
== END 2023-12-05 10:53 | disposition home or self-care (01) ==
LOC: NCHCN 10:52
PROVIDERS: PCP Family Medicine; Visit Provider Family Medicine
DX: G62.9 Polyneuropathy, unspecified (principal)
CPT/HCPCS: 82550; 85652; 82607; 82746; 83036; 83735; 84155; 84165; 85025; 86320

== ENCOUNTER 2024-10-09 11:12 | Outpatient (REF) | payer MEDICARE, MEDICAID, SELFPAY ==
--- OUTSIDE RECORDS SUMMARY | 2024-10-09 11:15 | XMS_ITS | Continuity of Care Document ---
Author Organization [facility] Address [address] [place] [address] Care Team Providers Care Solder Deposit Operator Name Role Phone Rosario Bahena Primary Care Physician [phone] Encounter [facility] Date(s): 05/07/24 - 05/07/24 [facility] [address] [place] [address] Encounter Diagnosis Sacrocoxalgia(Discharge Diagnosis) - 05/07/24 Discharge Disposition: Home or Self Care Attending Physician: Allyson Crocker MD Admitting Physician: Allyson Crocker MD Allergies, Adverse Reactions, Alerts No Known Medication Allergies Substance Reaction Severity Status SHELLFISH DERIVED Unknown Active nitrofurantoin Bladder pain, ineffe ctive for her infections Other Severe Active iodine topical Urticaria Unknown Active quinolone antibiotics Unknown Active EPINEPHrine topical Rapid heart beat Moderate Acti ve mirabegron Other Moderate Active Assessment and Plan Extracted from: Title:ED Provider Note Author:Christofer Solorzano MD Date:05/07/24 Assessment/Plan 1.??Sacrocoxalgia??M53.3 Ordered: Discharge Patient, 05/07/24 12:25:00 EDT, Home Independently, Constant Indicator ?? Orders: Lyme Antibody [facility], Blood, Routine, 05/07/24 12:20:00 EDT, Once, Nurse collect Patient Education Tailbone Injury, Psgr-ks-Gblh Immunizations Given and Recorded Vaccine Date Status Refusal Reason influenza virus vaccine, live 07/10/19 Recorded influenza virus vaccine, live 07/31/18 Recorded pneumococcal 13-valent conjugate vaccine 06/10/15 Recorded pneumococcal 23-polyvalent vaccine 11/15/07 Record ed Medications atenolol 0 Refill(s) Start Date: 03/17/22 Status: Ordered D-Mannose 0 Refill(s) Start Date: 05/07/24 Status: Ordered Medrol 4 mg oral tablet 1 packets, Oral, Daily, as directed Start Date: 04/13/22 Status: Ordered omeprazole 0 Refill(s) Start Date: 03/17/22 Status: Ordered Problem List Condition Confirmation Course [...] 12/12/17 Completed Results Laboratory List Name Date Lyme Antibody [facility] 05/07/24 Most recent to oldest [Reference Range]: 1 Lyme Ab [facility] [Negative] Negative 1 *NA* (05/07/24 12:40 PM) 1Result Comment: Requested Start Date/Time: [id number] Stop Date/Time: Test performed [place] [address] Vital Signs Most recent to oldest [Reference Range]: 1 Temperature Temporal Artery [36-38 Deg C ] 35.9 Deg C *LOW* (05/07/24 10:45 AM) Peripheral Pulse Rate [60-100 bpm] 64 bp m (05/07/24 10:45 AM) Respiratory Rate [12-24 br/min] 16 br/mi n (05/07/24 10:45 AM) Blood Pressure [90-140/60-90 mmHg] 163/7 9mmHg *HI* (05/07/24 10:45 AM) Mean Arterial Pressure, Cuff [65-140 mmH g] 107 mmHg (05/07/24 10:45 AM) Weight Estimated 89 kg (05/07/24 10:45 AM) Body Mass Index Estimated 33.91 kg/m2 (05/07/24 10:45 AM) Height/Length Estimated 162 cm (05/07/24 10:45 AM) Social History Social History Type Response Tobacco Former tobacco user Tobacco Use:. Sex Female Hospital Discharge Instructions Patient Education 05/07/2024 11:25:06 Tailbone Injury, Ommj-ek-Zdve Tailbone Injury or pain A tailbone injury is an injury on the small bone at the lower end of the backbone (spine). The injury can happen if the tailbone is bruised, the ligaments are stretched, or the bone is broken (fracture). What are the signs or symptoms? Pain in the tailbone area or lower back. ??? Pain or difficulty when standing up from a sitting position. ??? Bruising or swelling in the tailbone area. ??? Pain when pooping. ??? In females, pain during sex. How is this treated? Most tailbone injuries get better on their own in 4???6 weeks. If you need treatment, it may include: ??? Taking medicines for pain. ??? Using a rubber or inflated ring or cushion when sitting. ??? Doing physical therapy. ??? Follow these instructions at home: Activity ??? Rest as told by your doctor. ??? Do not sit for a long time without moving. ??? Get up to take short walks every 1 to 2 hours. Ask for help if you feel weak or unsteady. ??? Wear proper pads and gear when riding a bike or rowing. ??? Do exercises as told by your doctor or physical therapist. ??? Increase your activity as the pain allows. ??? Return to your normal activities when your doctor says that it is safe. Managing pain, stiffness, and swelling ??? To lessen pain: ??? Sit on a large rubber or inflated ring or cushion. ??? Lean forward when you sit. ??? If told, put ice on the injured area. To do this: ??? Put ice in a plastic bag. ??? Place a towel between your skin and the bag. ??? Leave the ice on for 20 minutes, 2???3 times per day. Do this for the first 1???2 days. ??? If your skin turns bright red, take off the ice right away to prevent skin damage. The risk of skin damage is higher if you cannot feel pain, heat, or cold. ??? If told, put heat on the injured area. Do this as often as told by your doctor. Use the heat source that your doctor recommends, such as a moist heat pack or a heating pad. ??? Place a towel between your skin and the heat source. ??? Leave the heat on for 20???30 minutes. ??? If your skin turns bright red, take off the heat right away to prevent burger. The risk of burnsis higher if you cannot feel pain, heat, or cold. General instructions ??? Take ktls-yjv-zgadsjt and prescription medicines only as told by your doctor. ??? You may need to take these actions to prevent or treat trouble pooping (constipation) or pain when pooping: ??? Drink enough fluid to keep your pee (urine) pale yellow. ??? Take javc-ixk-senzgkj or prescription medicines. ??? Eat foods that are high in fiber. These include beans, whole grains, and fresh fruits and vegetables. ??? Limit foods that are high in fat and sugar. These include fried or sweet foods. Contact a doctor if: ??? Your pain gets worse. ??? Your pain is not controlled with medicines. ??? Pooping causes you pain. ??? You cannot poop after 4 days. ??? You have pain during sex. Summary ??? A tailbone injury is an injury on the small bone at the lower end of the backbone (spine). ??? These injuries can be painful. Most tailbone injuries get better on their own in 4???6 weeks. ??? Sit on a large rubber or inflated ring or cushion to lessen pain. ??? Do not sit for a long time without moving. ??? Follow your doctor's suggestions to prevent or treat trouble pooping. This information is not intended to replace advice given to you by your health care provider. Make sure you discuss any questions you have with your health care provider. Document Revised: 01/04/2023 Document Reviewed: 01/04/2023 Elsevier Patient Education ?? 2022 [employer] Physician Emergency department Note * Christofer Solorzano MD: PERFORM Event Display: ED Note Physician Authored Date: [id number] TONA BAEZ :1940 Age:84 years Sex:Female Visit Date:05/07/2024 Primary Care Physician: Rosario Bahena MD Basic Information Time Seen: Christofer Solorzano MD / 05/07/2024 10:56 Chief Complaint Pt c/o lower back problems that she can't sit for any duration w/o being in pain. Pt states she hasosteopenia. Pain getting progressively worse over 3 weeks. No injury. History Of Present Illness: 84-year-old female??presents ambulatory because of??coccyx pain for the last 3 weeks.?? There has been no trauma no falls. ??But she reports she has a history of osteopenia??and has had a spontaneousfracture of her finger in the past.?? She has taken some ibuprofen for the pain.?? Pain radiates toboth gluteus??areas. ??No radiation down her legs or abdominal pain. ??No difficulty urinating or urinary symptoms and she has been moving her bowels.?? There is no lumbar area pain and no CVA area pain on exam.?? Patient is concerned about a fracture. Review of Systems: Constitutional:??no??fever?? Skin:?? No bruising at the area of pain ?? Respiratory:?? No complaints voiced Cardiovascular??no complaints??voiced Gastrointestinal:??No abdominal pain Genitourinary:??no??dysuria,? no difficulty urinating Musculoskeletal:?? See HPI,??no??trauma Neurologic:?? No complaints ?? Physical Exam Vitals & Measurements T:??35.9?C ??(Temporal Artery)?? HR:??64??(Peripheral)?? RR:??16?? BP:??163/79?? SpO2:??97%?? HT:??162??cm?? WT:??89??kg??(Estimated)?? BMI:??33.91?? Pain Score:??2?? O2 Therapy:??Room air?? General:??alert,??no acute distress. Skin:??warm,??dry. ?? Eye:??normal??conjunctiva, sclera??clear. Cardiovascular:?? ,??normal??peripheral perfusion. Respiratory:?, respirations??non-labored. Chest wall:??no??deformity. Gastrointestinal:??soft,??non distended,??no??tenderness,??no??guarding. Extremities:??no??deformity,??well-perfused Back: There is no tenderness on the thoracic or lumbar spine,subjective tenderness over the sacrococcygeal area, no bruising or ecchymosis seen. Neurological:?, LOC??appropriate for age,?speech??normal. ?? Medical Decision Making: Medical Decision-Making: ?? Tests in the radiology section of CPT??: ordered and reviewed -??Yes ?? Review and summarize past medical records -??Yes ?? Independent visualization of images, tracings, or specimens? Yes ?? Differential diagnosis includes coccydynia, sacrococcygeal sprain, no obvious fracture.?? She reports a history of osteopenia. ??The patient is stable, recommended continue with Motrin or Tylenol and to purchase or make a donut shaped cushion to take pressure off the tailbone. ??She also wanted to have a blood test for Lyme's disease??as she has a??friend who from Lyme's disease reportedly. ??This will be drawn.?? She is otherwise discharged in stable condition ? XR Sacrum/Coccyx 2+ Views PROCEDURE INFORMATION:?? Exam: XR Sacrum and Coccyx, 2 or More Views?? Exam date and time: 05/07/2024 11:51 AM?? Age: 84 years old?? Clinical indication: Pain? TECHNIQUE:?? Imaging protocol: XR of the sacrum and coccyx, 2 or more views.?? Total images: 3? COMPARISON:?? DX XR SACRUM/COCCYX MIN 2V 04/06/2019 3:14 PM? FINDINGS:?? Bones/joints: Normal. No acute fracture.?? Soft tissues: Normal.? IMPRESSION:?? No acute findings.? Report signed by: Ted Reeder On 05/07/2024 ??12:01:32 ? [1] ? URL This document has an image ?? XR Pelvis 1 or 2 Views PROCEDURE INFORMATION:?? Exam: XR Pelvis?? Exam date and time: 05/07/2024 11:21 AM?? Age: 84 years old?? Clinical indication: Pain? TECHNIQUE:?? Imaging protocol: Radiologic exam of the pelvis.?? Views: 1 or 2 view.?? Total images: 1? COMPARISON:?? CT ABD/PELVIS WO CONTRAST 03/02/2023 6:36 AM? FINDINGS:?? Bones/joints: No evidence of acute fracture or dislocation.?? Degenerative changes of both hips.?? Soft tissues: Soft tissues are within normal limits.? IMPRESSION:?? 1. ?? No evidence of acute fracture or dislocation.?? 2. ?? Degenerative changes of both hips.? Report signed by: Ted Reeder On 05/07/2024 ??11:33:27 ?? [2] Procedure No Qualifying Data Assessment/Plan 1.??Sacrocoxalgia??M53.3 Ordered: Discharge Patient, 05/07/24 12:25:00 EDT, Home Independently, Constant Indicator ?? Orders: Lyme Antibody [facility], Blood, Routine, 05/07/24 12:20:00 EDT, Once, Nurse collect Patient Education Tailbone Injury, Xicn-ts-Ygdo Medication Reconciliation Unchanged atenolol ?? methylPREDNISolone (Medrol 4 mg oral tablet)1 packets Oral (given by mouth) every day. as directed. ?? Miscellaneous MAR Items (D-Mannose) ?? 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 Gastroesophageal reflux disease Hypersomnia Hypertensive disorder Laceration of ear region Lack of energy Left bundle branch block Pain in right foot Postmenopausal bleeding Shoulder pain Urgent desire to urinate Historical No qualifying data Procedure/Surgical History ???Carpal tunnel release open (12/13/2017) Allergies nitrofurantoin??(Bladder pain, ineffective for her infections, Other) EPINEPHrine topical??(Rapid heart beat) mirabegron??(Other) No Known Medication Allergies SHELLFISH DERIVED iodine topical??(Urticaria) quinolone antibiotics Social History Alcohol Current, 1-2 times per month Electronic Cigarette/Vaping Electronic Cigarette Use: Never. Substance Use Never Tobacco Former tobacco user Tobacco Use:. Diagnostic Results Diagnostic Study Interpretation: X-ray of pelvis and??sacrococcygeal bones show no fractures interpreted by me treatment by radiologist. [1]??XR Sacrum/Coccyx 2+ Views; Domain[employer], Generated 05/07/2024 11:51 EDT [2]??XR Pelvis 1 or 2 Views; [employer], Generated 05/07/2024 11:21 EDT Electronically Signed on 05/07/2024 12:26 EDT Christofer Solorzano MD Emergency department Discharge instructions * Christofer Solorzano MD: PERFORM Event Display: ED Discharge Information Authored Date: [id number] TONA BAEZ :1940 Age:84 years Sex:Female Visit Date:05/07/2024 Primary Care Physician: Rosario Bahena MD Discharge Instructions We would like to thank you for allowing us to assist you with your healthcare needs. The following includes patient education materials and information regarding your injury/illness. Diagnosis from Today's Visit Sacrocoxalgia Discharge Vitals Temperature??(Temporal Artery) 96.6 ??F (35.9 ??C) Heart Rate??(Peripheral) 64 Respiratory Rate?? 16 Blood Pressure?? 163/79?? SpO2?? 97% Height?? 63.78 in (162 cm) Weight??(Estimated) 196.24 lb (89 kg) BMI?? 33.91 Allergies nitrofurantoin??(Bladder pain, ineffective for her infections, Other) EPINEPHrine topical??(Rapid heart beat) mirabegron??(Other) No Known Medication Allergies SHELLFISH DERIVED iodine topical??(Urticaria) quinolone antibiotics What to Do Next Instructions from Your Care Team You can continue with Tylenol or ibuprofen as needed for pain.?? You can purchase or make a donut shaped cushion to take pressure off your tailbone. ??Follow-up with your doctor as needed??if ongoingsymptoms in the next couple weeks.?? The Lyme test should be ready later this week, if??you can call the ER or through your doctor to obtain results. You were treated today on an emergency basis; it may be montoya to contact your primary care provider to notify them of your visit today. You may have been referred to your regular doctor or a specialist, please follow up as instructed. If your condition worsens or you can't get in to see the doctor, contact the Emergency Department. Medications What How Much When Instructions Next Dose Unchanged atenolol Unchanged methylPREDNISolone (Medrol 4 mg oral tablet) 1 packets Oral (given by mouth) Every day as directed ?? Unchanged Miscellaneous MAR Items (D-Mannose) Unchanged omeprazole Education Materials Tailbone Injury or pain A tailbone injury is an injury on the small bone at the lower end of the backbone (spine). The injury can happen if the tailbone is bruised, the ligaments are stretched, or the bone is broken (fracture). ? What are the signs or symptoms? Pain in the tailbone area or lower back. ? Pain or difficulty when standing up from a sitting position. ? Bruising or swelling in the tailbone area. ? Pain when pooping. ? In females, pain during sex. How is this treated? Most tailbone injuries get better on their own in 4???6 weeks. If you need treatment, it may include: ? Taking medicines for pain. ? Using a rubber or inflated ring or cushion when sitting. ? Doing physical therapy. ??? Follow these instructions at home: Activity ? Rest as told by your doctor. ? Do not sit for a long time without moving. ? Get up to take short walks every 1 to 2 hours. Ask for help if you feel weak or unsteady. ? Wear proper pads and gear when riding a bike or rowing. ? Do exercises as told by your doctor or physical therapist. ? Increase your activity as the pain allows. ? Return to your normal activities when your doctor says that it is safe. Managing pain, stiffness, and swelling ? To lessen pain: ? Sit on a large rubber or inflated ring or cushion. ? Lean forward when you sit. ? If told, put ice on the injured area. To do this: ? Put ice in a plastic bag. ? Place a towel between your skin and the bag. ? Leave the ice on for 20 minutes, 2???3 times per day. Do this for the first 1???2 days. ? If your skin turns bright red, take off the ice right away to prevent skin damage. The risk of skindamage is higher if you cannot feel pain, heat, or cold. ? If told, put heat on the injured area. Do this as often as told by your doctor. Use the heat sourcethat your doctor recommends, such as a moist heat pack or a heating pad. ? Place a towel between your skin and the heat source. ? Leave the heat on for 20???30 minutes. ? If your skin turns bright red, take off the heat right away to prevent burger. The risk of burger is higher if you cannot feel pain, heat, or cold. General instructions ? Take xixv-gti-lchomni and prescription medicines only as told by your doctor. ? You may need to take these actions to prevent or treat trouble pooping (constipation) or pain when pooping: ? Drink enough fluid to keep your pee (urine) pale yellow. ? Take vhow-mpf-aodtwws or prescription medicines. ? Eat foods that are high in fiber. These include beans, whole grains, and fresh fruits and vegetables. ? Limit foods that are high in fat and sugar. These include fried or sweet foods. Contact a doctor if: ? Your pain gets worse. ? Your pain is not controlled with medicines. ? Pooping causes you pain. ? You cannot poop after 4 days. ? You have pain during sex. Summary ? A tailbone injury is an injury on the small bone at the lower end of the backbone (spine). ? These injuries can be painful. Most tailbone injuries get better on their own in 4???6 weeks. ? Sit on a large rubber or inflated ring or cushion to lessen pain. ? Do not sit for a long time without moving. ? Follow your doctor's suggestions to prevent or treat trouble pooping. This information is not intended to replace advice given to you by your health care provider. Make sure you discuss any questions you have with your health care provider. Document Revised: 01/04/2023 Document Reviewed: 01/04/2023 [employer] Patient Education ?? 2022 [employer] Patient/Sort Operations Supervisor Signature Patient Name:TONA BAEZ I have received this information and my questions have been answered. Patient/Sort Operations Supervisor Name: Patient/Sort Operations Supervisor Signature: Relationship to Patient: Witness Name/Signature: Date: Electronically Signed on: 05/07/2024 12:26 EDTSigned by:LESLY Patient Care team information Care Team Personnel Name: Rosario Bahena MD Position: No Access Member Role: Informed Provider Address: Address: [address] [place] [id number] Care Team Related Persons Name: JESUS RAMSEY
--- OUTSIDE RECORDS SUMMARY | 2024-10-09 11:15 | XMS_ITS | Continuity of Care Document ---
Author Organization [facility] Address [address] [place] [address] Care Team Providers Care Programs Assistant Name Role Phone Rosario Bahena Primary Care Physician Encounter [facility] Date(s): 03/18/24 - 03/18/[address] [address] Discharge Disposition: Home or Self Care Attending Physician: Macho Bailey MD Admitting Physician: Macho Bailey MD Allergies, Adverse Reactions, Alerts No Known [...] Plan Diagnostic Tests Pending * Urine Culture 03/18/24 Immunizations Given and Recorded Vaccine Date Status Refusal Reason influenza virus vaccine, live 07/10/19 Recorded influenza virus vaccine, live 07/31/18 Recorded pneumococcal 13-valent conjugate vaccine 06/10/15 Recorded pneumococcal 23-polyvalent vaccine 11/15/07 Record ed Medications atenolol 0 Refill(s) Start Date: 03/17/22 Status: Ordered Medrol 4 mg oral tablet 1 packets, Oral, Daily, as directed Start Date: 04/13/22 Status: Ordered nystatin 100,000 units/mL oral suspension 200,000 units = 2 mL, Oral, QID, # 60 mL, 0 Refill(s), 6/12/24 3:45:00 PM CDT, Pharmacy: [id number], 167, cm, 04/27/23 16:42:00 EDT, Height/Length Dosing, 83, kg, 04/27/23 16:42:00 EDT, Weight Dosing Start Date: 03/03/24 Stop Date: 03/21/24 Status: Ordered omeprazole 0 Refill(s) Start Date: [...] Bahena MD Position: No Access Member Role: Primary Care Physician Address: Address: [address] [place] [id number] Name: Campos Lopes MD Position: No Access Member Role: Informed Provider Address: Address: [address] [place] [id number] [place] Care Team Related Persons Name: JESUS RAMSEY
--- OUTSIDE RECORDS SUMMARY | 2024-10-09 11:15 | XMS_ITS | Continuity of Care Document ---
Author Organization [facility] Address [address] [place] [address] Care Team Providers Care Log Chipper Name Role Phone Rosario Bahena Primary Care Physician [phone] Encounter [facility] Date(s): 05/19/24 - 05/19/[address] [address] Discharge Disposition: Home or Self Care Attending Physician: Macho Bailey MD Admitting Physician: Macho Bailey MD Referring Physician: Macho Bailey MD Allergies, Adverse Reactions, Alerts No Known Medication Allergies Substance Reaction Severity Status SHELLFISH DERIVED Unknown Active nitrofurantoin Bladder pain, ineffe ctive for her infections Other Severe Active iodine topical Urticaria Unknown Active quinolone antibiotics Unknown Active EPINEPHrine topical Rapid heart beat Moderate Acti ve mirabegron Other Moderate Active Assessment and Plan Diagnostic Tests Pending * Urine Culture 05/19/24 Immunizations Given and Recorded Vaccine Date Status [...] Access Member Role: Informed Provider Address: Address: [address] [place] [id number] Care Team Related Persons Name: JESUS RAMSEY
--- OUTSIDE RECORDS SUMMARY | 2024-10-09 11:15 | XMS_ITS | Continuity of Care Document ---
Author Organization [facility] Address [address] [place] [address] Care Team Providers Care Centrifugal Wax Molder Name Role Phone MosesCampos Primary Care Physician Encounter [id number] Date(s): 12/14/23 - 12/14/[address] [address] Discharge Disposition: Home or Self Care Attending Physician: Ariela Woods MD Admitting Physician: Ariela Woods MD Referring Physician: Ariela Woods MD Allergies, Adverse Reactions, Alerts No Known Medication Allergies Substance Reaction Severity Status SHELLFISH DERIVED Unknown Active nitrofurantoin Bladder pain, ineffe ctive for her infections Other Severe Active trimethoprim hives, vaginal itchi ng, tongue swelling Skin rash Severe Active iodine topical Urticaria Unknown Active EPINEPHrine topical Rapid heart beat Moderate Acti ve mirabegron Other Moderate Active Immunizations Given and Recorded Vaccine Date Status [...] 12/12/17 Completed Results Laboratory List Name Date Basic Metabolic Panel 12/14/23 Free T4 12/14/23 Thyroid Stimulating Hormone 12/14/23 Most recent to oldest [Reference Range]: 1 BUN [7-18 mg/dL] 19 mg/dL *HI* (12/14/23 10:55 AM) Glucose Level [74-106 mg/dL] 88 mg/dL (12/14/23 10:55 AM) Potassium Level [3.5-5.1 mmol/L] 4.4 mmo l/L (12/14/23 10:55 AM) T4 Free [0.76-1.46 ng/dL] 0.95 ng/dL (12/14/23 10:55 AM) Sodium Level [136-145 mmol/L] 140 mmol/L (12/14/23 10:55 AM) Calcium Level [8.5-10.1 mg/dL] 9.1 mg/dL (12/14/23 10:55 AM) CO2 [21-32 mmol/L] 28 mmol/L (12/14/23 10:55 AM) TSH [0.358-3.740 mcIntlUnit/mL] 2.749 mc IntlUnit/mL (12/14/23 10:55 AM) eGFR Non-AA [>=60] 65 (12/14/23 10:55 AM) eGFR AA [>=60] 65 (12/14/23 10:55 AM) Chloride Level [98-107 mmol/L] 104 mmol/ L (12/14/23 10:55 AM) Creatinine Level [0.55-1.02 mg/dL] 0.89 mg/dL (12/14/23 10:55 AM) Orders for Microbiology Reports Name Date Urine Culture 12/14/23 Microbiology Reports TEST:Urine Culture STATUS:Order in Progress BODY SITE: SOURCE:Urine, Clean Catch COLLECTED DATE/TIME:12/14/23 10:51 AM PRELIMINARY REPORT No growth at 24 hours. Social History Social History Type Response Tobacco Never tobacco user T obacco Use:. Sex Female Patient Care team information Care Team Personnel Name: Campos Lopes MD Position: No Access Member Role: Informed Provider Address: Address: [address] [place] [id number] [place] Care Team Related Persons Name: JESUS RAMSEY
--- OUTSIDE RECORDS SUMMARY | 2024-10-09 11:15 | XMS_ITS | Continuity of Care Document ---
Author Organization [facility] Address [address] [place] [address] Care Team Providers Care Horticulture Superintendent Name Role Phone Campos Lopes Primary Care Physician Encounter [facility] [id number] Date(s): 01/13/24 - 01/13/[address] [address] Discharge Disposition: Home or Self Care Attending Physician: Mary Posada MD Admitting Physician: Mary Posada MD Allergies, Adverse Reactions, Alerts No Known [...] Results Orders for Microbiology Reports Name Date Urine Culture 01/13/24 Microbiology Reports TEST:Urine Culture STATUS:Order in Progress BODY SITE: SOURCE:Urine, Clean Catch COLLECTED DATE/TIME:01/13/24 9:44 AM PRELIMINARY REPORT No growth at 24 hours. Social History Social History Type Response Tobacco Never tobacco user T obacco Use:. Sex Female Patient Care team information Care Team Personnel Name: Campos Lopes MD Position: No Access Member Role: Informed Provider Address: Address: [address] [place] [phone] [place] Care Team Related Persons Name: JESUS RAMSEY
--- OUTSIDE RECORDS SUMMARY | 2024-10-09 11:15 | XMS_ITS | Continuity of Care Document ---
Author Organization [facility] Address [address] [place] [address] Care Team Providers Care Christmas Bell Ringer Name Role Phone Rosario Bahena Primary Care Physician [phone] [facility] Date(s[facility] 03/14/24 - 03/14/24 [facility] [address] [place] [address] Discharge Disposition: Home or Self Care Attending Physician: Sunday Bynum MD Admitting Physician: Sunday Bynum MD Referring Physician: Sunday Bynum MD Allergies, Adverse Reactions, Alerts No Known [...] 0 Refill(s) Start Date: 03/17/22 Status: Ordered codeine-guaifenesin 7.5 mg-225 mg/5 mL oral liquid 2.5 mL, Oral, every 4 hr, PRN as needed for cough, # 60 mL, 0 Refill(s), 03/18/24 9:14:00 AM CDT Start Date: 03/03/24 Stop Date: 03/18/24 Status: Ordered Medrol 4 mg oral tablet 1 packets, Oral, Daily, as directed Start Date: 04/13/22 Status: Ordered nystatin 100,000 units/mL oral suspension 200,000 units = 2 mL, Oral, QID, # 60 mL, 0 Refill(s), 03/21/24 3:45:00 PM CDT, Pharmacy: [facility] #[id number], 167, cm, 04/27/23 16:42:00 EDT, Height/Length Dosing, 83, kg, 04/27/23 16:42:00 EDT, Weight Dosing Start Date: 03/03/24 Stop Date: 03/21/24 Status: Ordered omeprazole 0 Refill(s) Start Date: 03/17/22 Status: Ordered Probiotic Formula (Bacillus Coagulans) oral capsule 1 cap, Oral, Daily, X 14 days, # 14 cap, 0 Refill(s), 03/17/24 9:12:00 AM CDT, Pharmacy: [facility] #[id number], 167, cm, 04/27/23 16:42:00 EDT, Height/Length Dosing, 83, kg, 04/27/23 16:42:00 EDT, Weight Dosing Start Date: 03/03/24 Stop Date: 03/17/24 Status: Ordered Problem List Condition Confirmation Course [...] Member Role: Primary Care Physician Address: Address: [address] [place] [id number] Name: Campos Lopes MD Position: No Access Member Role: Informed Provider Address: Address: [address] [place] [phone] Care Team Related Persons Name: JESUS RAMSEY
--- OUTSIDE RECORDS SUMMARY | 2024-10-09 11:15 | XMS_ITS | Continuity of Care Document ---
Author Organization [facility] Address [address] [place] [address] Care Team Providers Care Electric Sign Wirer Name Role Phone Rosario Bahena Primary Care Physician [phone] Encounter [facility] Date(s): 09/24/24 - 09/24/[address] [address] Encounter Diagnosis Procedure and treatment not carried out due to patient leaving prior to being seen by health care provider(Final) - Discharge Disposition: Left Without Being Seen Attending Physician: Damián Iverson MD Admitting Physician: Damián Iverson MD Referring Physician: Damián Iverson MD Allergies, Adverse Reactions, Alerts No Known Medication Allergies Substance Criticality Severity Reaction Reaction Severity Status SHELLFISH DERIVED Unable to assess criticality Unknown Active nitrofurantoin High criticality Severe Bladder p ain, ineffective for her infections Other Active iodine topical Unable to assess criticality Unknown Urticaria Active EPINEPHrine topical High criticality Moderate Rapid heart b eat Active mirabegron High criticality Moderate Other Ac tive quinolone antibiotics Unable to assess criticality Unknown Active Immunizations Given and Recorded Vaccine Date [...] Status Carpal tunnel release open 12/12/17 Completed Vital Signs Most recent to oldest [Reference Range]: 1 Temperature Temporal Artery [36-38 Deg C ] 36.7 Deg C (09/24/24 10:05 AM) Heart Rate Monitored [60-100 bpm] 92 bpm (09/24/24 10:05 AM) Respiratory Rate [12-24 br/min] 15 br/mi n (09/24/24 10:05 AM) Weight Estimated 79.38 kg (09/24/24 10:05 AM) Body Mass Index Estimated 29.12 kg/m2 (09/24/24 10:05 AM) Height/Length Estimated 165.1 cm (09/24/24 10:05 AM) Social History Social History Type Response Tobacco Former tobacco user Tobacco Use:. Sex Female Sex Representation Female (finding) Patient Care team information Care Team Personnel Name: Rosario Bahena MD Position: No Access Member Role: Informed Provider Address: [address] [place] [address] Care Team Related Persons Name: JESUS RAMSEY Insurance Providers Guarantor name: TONA Bernstein [facility] Health Plan Information #: 2 Payer: [facility] MEDICAID Member Number: [id number] Policy Number: NA Health Plan Information #: 1 Payer: MEDICARE B [employer] Member Number: [id number] Policy Number: NA
--- OUTSIDE RECORDS SUMMARY | 2024-10-09 11:15 | XMS_ITS | Continuity of Care Document ---
Author Organization [facility] Address [address] [place] [address] Care Team Providers Care Brand Advocate Name Role Phone MosesCampos Primary Care Physician [phone] Encounter [facility] [id number] Date(s): 12/02/23 - 12/02/[address] [address] Discharge Disposition: Home or Self Care Attending Physician: Mary Posada MD Admitting Physician: Mary Posada MD Referring Physician: Mary Posada MD Allergies, Adverse Reactions, [...] for Microbiology Reports Name Date Urine Culture 12/02/23 Microbiology Reports TEST:Urine Culture STATUS:Order in Progress BODY SITE: SOURCE:Urine, Catheterized COLLECTED DATE/TIME:12/02/23 3:01 PM PRELIMINARY REPORT No growth at 24 hours. Social History Social History Type Response Tobacco Never tobacco user T obacco Use:. Sex Female Patient Care team information Care Team Personnel Name: Campos Lopes MD Position: No Access Member Role: Informed Provider Address: Address: [address] [place] [phone] [place] Care Team Related Persons Name: JESUS RAMSEY
--- OUTSIDE RECORDS SUMMARY | 2024-10-09 11:15 | XMS_ITS | Continuity of Care Document ---
Author Organization [facility] Address [address] [place] [address] Care Team Providers Care Clinical Data Analyst Name Role Phone Rosario Bahena Primary Care Physician Encounter [facility] Date(s): 04/24/24 - 04/24/24 [facility] [address] [place] [address] Discharge Disposition: Home or Self Care Attending [...] ng, tongue swelling Skin rash Severe Active Immunizations Given and Recorded Vaccine Date [...] for Microbiology Reports Name Date Urine Culture 04/24/24 Microbiology Reports TEST:Urine Culture STATUS:Order in Progress BODY SITE: SOURCE:Urine, Clean Catch COLLECTED DATE/TIME:04/24/24 12:00 PM PRELIMINARY REPORT <10,000 cfu/ml Gram Positive Cocci Social History Social History Type Response Tobacco Former tobacco user Tobacco Use:. Sex Female Patient Care team information Care Team Personnel Name: Rosario Bahena MD Position: No Access Member Role: Primary Care Physician Address: Address: [address] [place] [id number] Name: Campos Lopes MD Position: No Access Member Role: Informed Provider Address: Address: [address] [place] [phone] [place] Care Team Related Persons Name: JESUS RAMSEY
--- OUTSIDE RECORDS SUMMARY | 2024-10-09 11:15 | XMS_ITS | Continuity of Care Document ---
Author Organization [facility] Address [address] [place] [address] Care Team Providers Care Value Stream Coach Name Role Phone MosesCampos Primary Care Physician [facility] Date[facility] - 07/18/[address] [address] Discharge Disposition: Home or Self Care Attending Physician: Rajan Sanchez MD Admitting Physician: Rajan Sanchez MD Referring Physician: Rajan Sanchez MD Allergies, Adverse Reactions, Alerts No Known [...] 12/12/17 Completed Results Laboratory List Name Date Free T4 07/18/23 T3, Total [facility] 07/18/23 Thyroid Stimulating Hormone 07/18/23 Most recent to oldest [Reference Range]: 1 T4 Free [0.76-1.46 ng/dL] 0.89 ng/dL (07/18/23 10:36 AM) TSH [0.358-3.740 mcIntlUnit/mL] 0.092 mc IntlUnit/mL *LOW* (07/18/23 10:36 AM) T3, Total [facility] [97-169 ng/dL] 96 ng/dL 1 *LOW* (07/18/23 10:36 AM) 1Result Comment: Test performed [place] [address] Social History Social History Type Response Tobacco Never tobacco user T obacco Use:. Sex Female Patient Care team information Care Team Personnel Name: Campos Lopes MD Position: No Access Member Role: Informed Provider Address: Address: [address] [place] [phone] [place] Care Team Related Persons Name: JESUS RAMSEY
--- OUTSIDE RECORDS SUMMARY | 2024-10-09 11:15 | XMS_ITS | Continuity of Care Document ---
Author Organization [facility] Address [address] [place] [address] Care Team Providers Care Stone And Concrete Washer Name Role Phone MosesCampos Primary Care Physician Encounter [facility] Date(s): 03/02/23 - 03/02/23 [facility] [address] [place] [address] [place] Encounter Diagnosis Abdominal pain(Discharge Diagnosis) - 03/02/23 Nausea(Discharge Diagnosis) - 03/02/23 Unspecified abdominal pain(Final) - Nausea(Final) - Discharge Disposition: Home or Self Care Attending [...] Tests Radiology* NM Bone Imaging Limited 04/22/22 Functional Status 03/02/23 Other exposure to Infectious Disease Non e Immunizations Given and Recorded Vaccine Date Status [...] 12/12/17 Completed Results Laboratory List Name Date .Manual Differential (NCTY) 03/02/23 C-Reactive Protein High Sensitivity (CRP HS) 03/02/23 CBC w/ Diff 03/02/23 Comprehensive Metabolic Panel 03/02/23 Lipase Level 03/02/23 Most recent to oldest [Reference Range]: 1 WBC [5.0-10.0 x10^3/mcL] 9.3 x10^3/mcL (03/02/23 2:30 AM) RBC [4.1-5.3 x10^6/mcL] 5.4 x10^6/mcL *HI* (03/02/23 2:30 AM) Segs Man [40-75 %] 81 % *HI* (03/02/23 2:30 AM) Lymph Man [20-50 %] 15 % *LOW* (03/02/23 2:30 AM) Rich Man [2-15 %] 4 % (03/02/23 2:30 AM) Eos Man [1-6 %] 0 % *LOW* (03/02/23 2:30 AM) BUN [7-18 mg/dL] 21 mg/dL *HI* (03/02/23 2:30 AM) Glucose Level [74-106 mg/dL] 158 mg/dL *HI* (03/02/23 2:30 AM) Potassium Level [3.5-5.1 mmol/L] 4.2 mmo l/L (03/02/23 2:30 AM) MCV [80.0-96.0 fL] 85.4 fL (03/02/23 2:30 AM) RBC Morph Normal (03/02/23 2:30 AM) AST [15-37 unit/L] 18 unit/L (03/02/23 2:30 AM) ALT [14-59 unit/L] 26 unit/L (03/02/23 2:30 AM) MCHC [31.0-35.0 g/dL] 32.8 g/dL (03/02/23 2:30 AM) Sodium Level [136-145 mmol/L] 138 mmol/L (03/02/23 2:30 AM) Hct [37.0-47.0 %] 45.7 % (03/02/23 2:30 AM) Lipase Level [16-77 unit/L] 30 unit/L (03/02/23 2:30 AM) Calcium Level [8.5-10.1 mg/dL] 9.3 mg/dL (03/02/23 2:30 AM) Albumin Level [3.4-5.0 g/dL] 3.7 g/dL (03/02/23 2:30 AM) Protein Total [6.4-8.2 g/dL] 7.2 g/dL (03/02/23 2:30 AM) MCH [26.0-32.0 pg] 28.0 pg (03/02/23 2:30 AM) Bilirubin Total [0.2-1.0 mg/dL] 0.6 mg/d L (03/02/23 2:30 AM) Hgb [12.0-16.0 g/dL] 15.0 g/dL (03/02/23 2:30 AM) Alk Phos [46-146 unit/L] 74 unit/L (03/02/23 2:30 AM) Band Man [0-5 %] 0 % (03/02/23 2:30 AM) Platelets [130-450 x10^3/mcL] 254 x10^3/ mcL (03/02/23 2:30 AM) CO2 [21-32 mmol/L] 28 mmol/L (03/02/23 2:30 AM) eGFR Non-AA [>=60] 79 (03/02/23 2:30 AM) eGFR AA [>=60] 79 (03/02/23 2:30 AM) Chloride Level [98-107 mmol/L] 103 mmol/ L (03/02/23 2:30 AM) RDW-CV [11.5-14.5 %] 12.4 % (03/02/23 2:30 AM) CRP High Sens [0.00-3.00 mg/L] 1.57 mg/L (03/02/23 2:30 AM) Slide Review Man Diff (03/02/23 2:30 AM) Abs Neut Man 7.5 x10^3/mcL *NA* (03/02/23 2:30 AM) Creatinine Level [0.55-1.02 mg/dL] 0.76 mg/dL (03/02/23 2:30 AM) Baso Man [0-1 %] 0 % (03/02/23 2:30 AM) Vital Signs Most recent to oldest [Reference Range]: 1 2 3 Temperature Temporal Artery [36-38 Deg C] 37 Deg C (03/02/23 2:07 AM) Peripheral Pulse Rate [60-100 bpm] 97 bpm (03/02/23 5:35 AM) 92 bpm (03/02/23 4:20 AM) 97 bpm (03/02/23 4:15 AM) Respiratory Rate [12-24 br/min] 18 br/min (03/02/23 5:35 AM) 16 br/min (03/02/23 4:20 AM) 16 br/min (03/02/23 4:15 AM) Blood Pressure [90-140/60-90 mmHg] 171/92mmHg *HI* (03/02/23 5:35 AM) 154/71mmHg *HI* (03/02/23 4:15 AM) 157/56mmHg *HI* (03/02/23 3:08 AM) Weight Dosing 89.00 kg (03/02/23 2:17 AM) Weight Estimated 89.00 kg (03/02/23 2:07 AM) Height/Length Dosing 167.000 cm (03/02/23 2:17 AM) Height/Length Estimated 167.000 cm (03/02/23 2:07 AM) Social History Social History Type Response Tobacco Former tobacco user Tobacco Use:. Sex Female Physician Emergency department Note * Robbie Sweeney MD: PERFORM Event Display: ED Note Physician Authored Date: [id number] LIVEKENNYTONA Amandepe :1940 Age:83 years Sex:Female Visit Date:03/02/2023 Primary Care Physician: Campos Lopes MD CT scan of abdomen showed no acute problems. ??Patient's symptoms resolved??and she was discharged to follow-up with her primary care provider. Electronically Signed on 03/02/23 07:08 PM Robbie Sweeney MD * Allyson Crocker MD: PERFORM Event Display: ED Note Physician Authored Date: [id number] LIVEKENNYTONA Amandeep :1940 Age:83 years Sex:Female Visit Date:03/02/2023 Primary Care Physician: Campos Lopes MD Basic Information Time Seen: Allyson Crocker MD / 03/02/2023 02:05 Chief Complaint patient arrives c/o gallbladder pain and nausea History Of Present Illness: Patient reports over the last 6 months every time she eats she has right??gallbladder area pain??over the last 6 hours??she has had??right upper quadrant pain??that is quite uncomfortable??she ate some nice??bread with a good crust.?? 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 pt was diaphoretic with pain tonight,?? no known fever, no ear nose or throat pain,no breathing issues, no urinary symptoms. ??Patient's primary care provider is part of [facility] Review of Systems: see hpi for ros Physical Exam Vitals & Measurements T:??37?C ??(Temporal Artery)?? HR:??97??(Peripheral)?? RR:??18?? BP:??171/92?? SpO2:??96%?? HT:??167.000??cm?? WT:??89.00??kg??(Estimated)?? Pain Score:??6?? O2 Flow Rate:??2?? O2 Therapy:??Room air?? General: Alert and oriented, well nourished,?No??acute distress Eye: PER?Normal??conjunctiva,??No??scleral icterus HENT: Normocephalic,??nontraumatic??Normal hearing Neck: Supple, non-tender,??No??lymphadenopathy Lungs: Clear to auscultation,?Non-labored?? respiration Heart:?Normal?? rate,?Regular??rhythm,?No??murmur,?No??gallop,?No??edema Chest: wall excursion wnl no abnormal movements no obvious deformities Abdomen: Soft, tenderness right upper quadrant no rebound??no organomegaly??non-distended,?Normal?? bowel sounds,?No??masses Musculoskeletal:?Normal?? range of motion and strength,?No??tenderness,?No??swelling Skin: Skin is warm, dry and pink,?No??rashes,?No??lesions Neurologic: Awake, alert and oriented X4 Psychiatric: Cooperative, appropriate mood and affect Medical Decision Making: For MDM please see under assessment and plan Procedure No Qualifying Data Assessment/Plan 1.??Abdominal pain??R10.9 Ongoing right upper quadrant abdominal pain worse over the last [address] scan is pending??patientdoes have an upcoming??GI appointment for endoscopy??March 29 2023??at [facility]. ??Patient has received??2 doses of morphine 2 mg??IV??10 mg of IV Compazine??1 L of IV fluids??0.5 mg of Ativan??4 mg??of IV Zofran??0.5 mg of Dilaudid??with some relief??signout given to Dr. Sweeney. Ordered: CT Abdomen and Pelvis w/o Contrast, 03/02/23 6:16:00 EDT, Stat, Reason: abd pain, Transport Mode: Stretcher, Abdominal pain Nausea, Exam to be performed outside organization? ?? 2.??Nausea??R11.0 Patient given medications as above with some relief Ordered: CT Abdomen and Pelvis w/o Contrast, 03/02/23 6:16:00 EDT, Stat, Reason: abd pain, Transport Mode: Stretcher, Abdominal pain Nausea, Exam to be performed outside organization? ?? Medication Reconciliation Unchanged atenolol ?? cetirizine (ZyrTEC 10 mg oral tablet)1 tab Oral (given by mouth) every day. ?? levoFLOXacin ?? methylPREDNISolone (Medrol 4 mg oral tablet)1 packets Oral (given by mouth) every day. as directed. ?? omeprazole Problem List/Past Medical History Ongoing [...] Procedure/Surgical History ???Carpal tunnel release open (12/13/2017) Medication Administration Given !-Compazine, 10 mg, IV Push !-Zofran, 4 mg, IV Push 0.9% NaCl bolus, 1000 mL, IV Bolus Ativan, 0.5 mg, IV Push Dilaudid, 0.5 mg, Slow IV Push morphine, 2 mg, IV Push morphine, 2 mg, IV Push Allergies nitrofurantoin??(Bladder pain, ineffective for her infections, Other) trimethoprim??(hives, vaginal itching, tongue swelling, Skin rash) EPINEPHrine topical??(Rapid heart beat) mirabegron??(Other) No Known Medication Allergies SHELLFISH DERIVED iodine topical??(Urticaria) Social History Electronic Cigarette/Vaping Electronic Cigarette Use: Never. Tobacco Former tobacco user Tobacco Use:. Lab Results CBC and Differential?? LATEST RESULTS?? HISTORICAL RESULTS?? WBC?? 03/02/23 02:30?? 9.3?? 06/03/22?? 6.1?? RBC?? 03/02/23 02:30?? 5.4 ??High?? 06/03/22?? 5.4 ??High?? Hgb?? 03/02/23 02:30?? 15.0?? 06/03/22?? 15.2?? Hct?? 03/02/23 02:30?? 45.7?? 06/03/22?? 47.0?? MCV?? 03/02/23 02:30?? 85.4?? 06/03/22?? 87.5?? MCH?? 03/02/23 02:30?? 28.0?? 06/03/22?? 28.3?? MCHC?? 03/02/23 02:30?? 32.8?? 06/03/22?? 32.3?? RDW-CV?? 03/02/23 02:30?? 12.4?? 06/03/22?? 12.4?? Platelets?? 03/02/23 02:30?? 254?? 06/03/22?? 281?? Segs Man?? 03/02/23 02:30?? 81 ??High? Lymph Man?? 03/02/23 02:30?? 15 ??Low? Rich Man?? 03/02/23 02:30?? 4? Eos Man?? 03/02/23 02:30?? 0 ??Low? Baso Man?? 03/02/23 02:30?? 0? Band Man?? 03/02/23 02:30?? 0? Abs Neut Man?? 03/02/23 02:30?? 7.5? RBC Morph?? 03/02/23 02:30?? Normal? Slide Review?? 03/02/23 02:30?? Man Diff? Routine Chemistry?? LATEST RESULTS?? HISTORICAL RESULTS?? Sodium Level?? 03/02/23 02:30?? 138?? 06/03/22?? 139?? Potassium Level?? 03/02/23 02:30?? 4.2?? 06/03/22?? 5.0?? Chloride Level?? 03/02/23 02:30?? 103?? 06/03/22?? 104?? CO2?? 03/02/23 02:30?? 28?? 06/03/22?? 29?? Alk Phos?? 03/02/23 02:30?? 74?? 06/03/22?? 68?? AST?? 03/02/23 02:30?? 18?? 06/03/22?? 28?? ALT?? 03/02/23 02:30?? 26?? 06/03/22?? 21?? BUN?? 03/02/23 02:30?? 21 ??High?? 06/03/22?? 15?? Glucose Level?? 03/02/23 02:30?? 158 ??High?? 06/03/22?? 96?? Creatinine Level?? 03/02/23 02:30?? 0.76?? 06/03/22?? 0.92?? eGFR AA?? 03/02/23 02:30?? 79?? 06/03/22?? 63?? eGFR Non-AA?? 03/02/23 02:30?? 79?? 06/03/22?? 63?? Calcium Level?? 03/02/23 02:30?? 9.3?? 06/03/22?? 8.9?? Protein Total?? 03/02/23 02:30?? 7.2?? 06/03/22?? 7.1?? Albumin Level?? 03/02/23 02:30?? 3.7?? 06/03/22?? 3.8?? Bilirubin Total?? 03/02/23 02:30?? 0.6?? 08/25/22?? 0.4?? Lipase Level?? 03/02/23 02:30?? 30? Electronically Signed on 03/02/23 07:08 AM Allyson Crocker MD Emergency department Discharge instructions * Robbie Sweeney MD: PERFORM Event Display: ED Discharge Information Authored Date: [id number] TONA BAEZ :1940 Age:83 years Sex:Female Visit Date:03/02/2023 Primary Care Physician: Campos Lopes MD Discharge Instructions We would like to thank you for allowing us to assist you with your healthcare needs. The following includes patient education materials and information regarding your injury/illness. Diagnosis from Today's Visit Abdominal pain Nausea Discharge Vitals Temperature??(Temporal Artery) 98.6 ??F (37 ??C) Heart Rate??(Peripheral) 97 Respiratory Rate?? 18 Blood Pressure?? 171/92?? Height?? 65.75 in (167.000 cm) Weight??(Estimated) 196.24 lb (89.00 kg) Allergies nitrofurantoin??(Bladder pain, ineffective for her infections, Other) trimethoprim??(hives, vaginal itching, tongue swelling, Skin rash) EPINEPHrine topical??(Rapid heart beat) mirabegron??(Other) No Known Medication Allergies SHELLFISH DERIVED iodine topical??(Urticaria) What to Do Next Instructions from Your Care Team Continue with your current medications. ??Follow-up with your??cargo inspector. ?? Robbie Sweeney MD You were treated today on an emergency [...] When Instructions Next Dose Unchanged atenolol Unchanged cetirizine (ZyrTEC 10 mg oral tablet) 1 tab Oral (given by mouth) Every day Unchanged levoFLOXacin Unchanged methylPREDNISolone (Medrol 4 mg oral tablet) 1 packets Oral (given by mouth) Every day as directed ?? Unchanged omeprazole Tests Performed Medications and Immunizations Administered Given !-Compazine, 10 mg, IV Push !-Zofran, 4 mg, IV Push 0.9% NaCl bolus, 1000 mL, IV Bolus acetaminophen, 1000 mg, IV Piggyback. For: Abdominal pain,??Nausea Ativan, 0.5 mg, IV Push Dilaudid, 0.5 mg, Slow IV Push ketorolac, 15 mg, IV Push. For: Abdominal pain,??Nausea morphine, 2 mg, IV Push morphine, 2 mg, IV Push Protonix, 40 mg, IV Push. For: Abdominal pain,??Nausea Lab Test Name Test Result Date/Time WBC 9.3 x10^3/mcL 03/02/2023 02:30 EDT RBC 5.4 x10^6/mcL 03/02/2023 02:30 EDT Hgb 15.0 g/dL 03/02/2023 02:30 EDT Hct 45.7 % 03/02/2023 02:30 EDT MCV 85.4 fL 03/02/2023 02:30 EDT MCH 28.0 pg 03/02/2023 02:30 EDT MCHC 32.8 g/dL 03/02/2023 02:30 EDT RDW-CV 12.4 % 03/02/2023 02:30 EDT Platelets 254 x10^3/mcL 03/02/2023 02:30 EDT Segs Man 81 % 03/02/2023 02:30 EDT Lymph Man 15 % 03/02/2023 02:30 EDT Rich Man 4 % 03/02/2023 02:30 EDT Eos Man 0 % 03/02/2023 02:30 EDT Baso Man 0 % 03/02/2023 02:30 EDT Band Man 0 % 03/02/2023 02:30 EDT Abs Neut Man 7.5 x10^3/mcL 03/02/2023 02:30 EDT RBC Morph Normal 03/02/2023 02:30 EDT Slide Review Man Diff 03/02/2023 02:30 EDT Sodium Level 138 mmol/L 03/02/2023 02:30 EDT Potassium Level 4.2 mmol/L 03/02/2023 02:30 EDT Chloride Level 103 mmol/L 03/02/2023 02:30 EDT CO2 28 mmol/L 03/02/2023 02:30 EDT Alk Phos 74 unit/L 03/02/2023 02:30 EDT AST 18 unit/L 03/02/2023 02:30 EDT ALT 26 unit/L 03/02/2023 02:30 EDT BUN 21 mg/dL 03/02/2023 02:30 EDT Glucose Level 158 mg/dL 03/02/2023 02:30 EDT Creatinine Level 0.76 mg/dL 03/02/2023 02:30 EDT eGFR AA 79 03/02/2023 02:30 EDT eGFR Non-AA 79 03/02/2023 02:30 EDT Calcium Level 9.3 mg/dL 03/02/2023 02:30 EDT Protein Total 7.2 g/dL 03/02/2023 02:30 EDT Albumin Level 3.7 g/dL 03/02/2023 02:30 EDT Bilirubin Total 0.6 mg/dL 03/02/2023 02:30 EDT Lipase Level 30 unit/L 03/02/2023 02:30 EDT CRP High Sens 1.57 mg/L 03/02/2023 02:30 EDT Patient/Security Support Analyst Signature Patient Name:TONA BAEZ I have received this information and my questions have been answered. Patient/Security Support Analyst Name: Patient/Security Support Analyst Signature: Relationship to Patient: Witness Name/Signature: Date: Electronically Signed on: 03/02/2023 13:00 EDTSigned by:[facility] Emergency department Note * Earnestine Fernandez: PERFORM Event Display: ED Notes Authored Date: [id number] Patient Care team information Care Team Personnel Name: Campos Lopes MD Position: No Access Member Role: Informed Provider Address: Address: [address] [place] [phone] [place] Name: Robert Sharpe RN Position: Nurse Member Role: ED Nurse Name: Jeimy Bojorquez Position: Nurse Member Role: ED Nurse Name: Robbie Sweeney MD Position: Physician Member Role: ED Physician Address: Address: [address] [place] [phone] [place] Name: Allyson Crocker MD Position: Physician Member Role: Attending Physician Address: Address: [address] [place] [address] Care Team Related Persons Name: JESUS RAMSEY
--- OUTSIDE RECORDS SUMMARY | 2024-10-09 11:15 | XMS_ITS | Continuity of Care Document ---
Author Organization [facility] Address [address] [place] [address] Care Team Providers Care Electrician [employer] Name Role Phone MosesCampos Primary Care Physician Encounter [facility] [id number] Date(s): 11/07/23 - 11/07/[address] [address] Discharge Disposition: Home or Self Care Attending [...] 12/12/17 Completed Results Laboratory List Name Date Automated Diff 11/07/23 CBC w/ Diff 11/07/23 Comprehensive Metabolic Panel 11/07/23 Free T4 11/07/23 Magnesium Level 11/07/23 PTH Intact [facility] 11/07/23 Thyroid Stimulating Hormone 11/07/23 Most recent to oldest [Reference Range]: 1 WBC [5.0-10.0 x10^3/mcL] 7.6 x10^3/mcL (11/07/23 11:39 AM) RBC [4.1-5.3 x10^6/mcL] 5.2 x10^6/mcL (11/07/23 11:39 AM) Neutro Auto [40.0-75.0 %] 65.1 % (11/07/23 11:39 AM) Lymph Auto [20.0-50.0 %] 24.9 % (11/07/23 11:39 AM) Perry Auto [2.0-15.0 %] 6.5 % (11/07/23 11:39 AM) Basophil Auto [0.0-1.0 %] 0.9 % (11/07/23 11:39 AM) BUN [7-18 mg/dL] 22 mg/dL *HI* (11/07/23 11:39 AM) Glucose Level [74-106 mg/dL] 106 mg/dL 1 (11/07/23 11:39 AM) Potassium Level [3.5-5.1 mmol/L] 4.1 mmo l/L (11/07/23 11:39 AM) MCV [80.0-96.0 fL] 90.0 fL (11/07/23 11:39 AM) T4 Free [0.76-1.46 ng/dL] 0.98 ng/dL (11/07/23 11:39 AM) AST [15-37 unit/L] 21 unit/L (11/07/23 11:39 AM) ALT [14-59 unit/L] 27 unit/L (11/07/23 11:39 AM) MCHC [31.0-35.0 g/dL] 32.8 g/dL (11/07/23 11:39 AM) Sodium Level [136-145 mmol/L] 143 mmol/L (11/07/23 11:39 AM) Hct [37.0-47.0 %] 46.9 % (11/07/23 11:39 AM) Calcium Level [8.5-10.1 mg/dL] 8.9 mg/dL (11/07/23 11:39 AM) Albumin Level [3.4-5.0 g/dL] 3.6 g/dL (11/07/23 11:39 AM) Protein Total [6.4-8.2 g/dL] 7.0 g/dL (11/07/23 11:39 AM) MCH [26.0-32.0 pg] 29.6 pg (11/07/23 11:39 AM) Magnesium Level [1.8-2.4 mg/dL] 1.9 mg/d L (11/07/23 11:39 AM) Neutro Absolute 5.0 x10^3/mcL *NA* (11/07/23 11:39 AM) Bilirubin Total [0.2-1.0 mg/dL] 0.5 mg/d L (11/07/23 11:39 AM) Hgb [12.0-16.0 g/dL] 15.4 g/dL (11/07/23 11:39 AM) Alk Phos [46-146 unit/L] 71 unit/L (11/07/23 11:39 AM) Platelets [130-450 x10^3/mcL] 206 x10^3/ mcL (11/07/23 11:39 AM) CO2 [21-32 mmol/L] 29 mmol/L (11/07/23 11:39 AM) TSH [0.358-3.740 mcIntlUnit/mL] 2.791 mc IntlUnit/mL (11/07/23 11:39 AM) eGFR Non-AA [>=60] 76 (11/07/23 11:39 AM) eGFR AA [>=60] 76 (11/07/23 11:39 AM) Chloride Level [98-107 mmol/L] 105 mmol/ L (11/07/23 11:39 AM) RDW-CV [11.5-14.5 %] 12.9 % (11/07/23 11:39 AM) Imm Gran Auto [0.0-0.9 %] 0.4 % (11/07/23 11:39 AM) Creatinine Level [0.55-1.02 mg/dL] 0.78 mg/dL (11/07/23 11:39 AM) PTH Intact [facility] [19-88 pg/mL] 24 pg/mL 2 *NA* (11/07/23 11:39 AM) Eos, Auto [1.0-6.0 %] 2.2 % (11/07/23 11:39 AM) 1Result Comment: Sample appears lipemic 2Result Comment: Test performed or referred by The [address] [address] Social History Social History Type Response Tobacco Never tobacco user T obacco Use:. Sex Female Patient Care team information Care Team Personnel Name: Campos Lopes MD Position: No Access Member Role: Informed Provider Address: Address: [address] [place] [phone] [place] Care Team Related Persons Name: JESUS RAMSEY
--- OUTSIDE RECORDS SUMMARY | 2024-10-09 11:15 | XMS_ITS | Continuity of Care Document ---
Author Organization [facility] Address [address] [place] [address] Care Team Providers Care Entry Level Electrical Engineer Name Role Phone Moses Campos Miller Primary Care Physician [phone] Encounter [facility] [id number] Date(s): 05/02/23 - 05/02/23 [facility] [address] [place] [address] Discharge Disposition: Home or Self Care Attending [...] 0 Refill(s) Start Date: 03/17/22 Status: Ordered doxycycline monohydrate 100 mg oral capsule 100 mg = 1 cap, Oral, BID, X 10 days, # 20 cap, 0 Refill(s), 05/07/23 17:16:00 EDT, Pharmacy: [id number], 167, cm, 04/27/23 16:42:00 EDT, Height/Length Dosing, 83, kg, 04/27/23 16:42:00 EDT, Weight Dosing Start Date: 04/27/23 Stop Date: 05/07/23 Status: Ordered levoFLOXacin 0 Refill(s) Start Date: [...] Results Laboratory List Name Date Urinalysis Microscopic 05/02/23 Urinalysis with Microscopic 05/02/23 Most recent to oldest [Reference Range]: 1 UA Color Yellow (05/02/23 8:49 AM) UA WBC [0-3] 0-3 (05/02/23 8:49 AM) UA Urobilinogen Normal (05/02/23 8:49 AM) UA Bili [Negative] Negative (05/02/23 8:49 AM) UA Ketones Negative (05/02/23 8:49 AM) UA RBC [0-2] 0-2 (05/02/23 8:49 AM) UA Leuk Est Negative (05/02/23 8:49 AM) UA Nitrite Positive *ABN* (05/02/23 8:49 AM) UA Glucose [Negative] Trace *ABN* (05/02/23 8:49 AM) UA Bacteria Rare /HPF (05/02/23 8:49 AM) UA Protein Negative (05/02/23 8:49 AM) UA Blood Negative (05/02/23 8:49 AM) UA Mucous None Seen /HPF (05/02/23 8:49 AM) UA Spec Grav 1.015 *NA* (05/02/23 8:49 AM) UA Squam Epithelial [None Seen] Rare (05/02/23 8:49 AM) UA pH 5.5 *NA* (05/02/23 8:49 AM) UA Appear Clear (05/02/23 8:49 AM) UA Culture Ind?. Not Applicable (05/02/23 8:49 AM) Orders for Microbiology Reports Name Date Urine Culture 05/02/23 Microbiology Reports TEST:Urine Culture STATUS:Order in Progress BODY SITE: SOURCE:Urine, Clean Catch COLLECTED DATE/TIME:05/02/23 8:49 AM PRELIMINARY REPORT <10,000 cfu/ml Gram Positive Cocci Social History Social History Type Response Tobacco Never tobacco user T obacco Use:. Sex Female Patient Care team information Care Team Personnel Name: Campos Lopes MD Position: No Access Member Role: Informed Provider Address: Address: [address] [place] [phone] [place] Care Team Related Persons Name: JESUS RAMSEY
--- OUTSIDE RECORDS SUMMARY | 2024-10-09 11:15 | XMS_ITS | Continuity of Care Document ---
Author Organization [facility] Address [address] [place] [address] Care Team Providers Care Computer Systems Design Analyst Name Role Phone Campos Lopes Primary Care Physician [phone] Encounter [facility] [id number] Date(s): 04/08/23 - 04/08/[address] [address] Discharge Disposition: Home or Self Care Attending [...] Results Laboratory List Name Date Urinalysis Microscopic 04/08/23 Urinalysis with Microscopic 04/08/23 Most recent to oldest [Reference Range]: 1 UA Color Yellow (04/08/23 2:15 PM) UA WBC [0-3] 0-3 (04/08/23 2:15 PM) UA Urobilinogen Normal (04/08/23 2:15 PM) UA Bili [Negative] Negative (04/08/23 2:15 PM) UA Ketones Trace *ABN* (04/08/23 2:15 PM) UA RBC [0-2] 0-2 (04/08/23 2:15 PM) UA Leuk Est Negative (04/08/23 2:15 PM) UA Nitrite Negative (04/08/23 2:15 PM) UA Glucose [Negative] Negative (04/08/23 2:15 PM) UA Bacteria None Seen /HPF (04/08/23 2:15 PM) UA Protein Negative (04/08/23 2:15 PM) UA Blood Negative (04/08/23 2:15 PM) UA Mucous None Seen /HPF (04/08/23 2:15 PM) UA Spec Grav 1.025 *NA* (04/08/23 2:15 PM) UA Squam Epithelial [None Seen] Rare (04/08/23 2:15 PM) UA pH 5.5 *NA* (04/08/23 2:15 PM) UA Appear Clear (04/08/23 2:15 PM) UA Culture Ind?. Not Applicable (04/08/23 2:15 PM) Orders for Microbiology Reports Name Date Urine Culture 04/08/23 Microbiology Reports TEST:Urine Culture STATUS:Order in Progress BODY SITE: SOURCE:Urine, Clean Catch COLLECTED DATE/TIME:04/08/23 2:15 PM PRELIMINARY REPORT No growth at 24 hours. Social History Social History Type Response Tobacco Former tobacco user Tobacco Use:. Sex Female Patient Care team information Care Team Personnel Name: Campos Lopes MD Position: No Access Member Role: Informed Provider Address: Address: [address] [place] [phone] [place] Care Team Related Persons Name: JESUS RAMSEY Address: Home
--- OUTSIDE RECORDS SUMMARY | 2024-10-09 11:15 | XMS_ITS | Continuity of Care Document ---
Author Organization [facility] Address [address] [place] [address] Care Team Providers Care Salesforce Trainer Name Role Phone Campos Lopes Primary Care Physician [facility] Date(s[facility] 01/18/23 - 01/18/[address] [address] Discharge Disposition: Home or Self Care Attending [...] Results Laboratory List Name Date Urinalysis Microscopic 01/18/23 Urinalysis with Microscopic 01/18/23 Most recent to oldest [Reference Range]: 1 UA Color Yellow (01/18/23 9:37 AM) UA WBC [0-3] 0-3 (01/18/23 9:37 AM) UA Urobilinogen Normal (01/18/23 9:37 AM) UA Bili [Negative] Negative (01/18/23 9:37 AM) UA Ketones Negative (01/18/23 9:37 AM) UA RBC [0-2] 0-2 (01/18/23 9:37 AM) UA Leuk Est Negative (01/18/23 9:37 AM) UA Nitrite Negative (01/18/23 9:37 AM) UA Glucose [Negative] Negative (01/18/23 9:37 AM) UA Bacteria Rare /HPF (01/18/23 9:37 AM) UA Protein Negative (01/18/23 9:37 AM) UA Blood Negative (01/18/23 9:37 AM) UA Mucous None Seen /HPF (01/18/23 9:37 AM) UA Spec Grav 1.010 *NA* (01/18/23 9:37 AM) UA Squam Epithelial [None Seen] Rare (01/18/23 9:37 AM) UA pH 7.0 *NA* (01/18/23 9:37 AM) UA Appear Clear (01/18/23 9:37 AM) UA Culture Ind?. Not Applicable (01/18/23 9:37 AM) Orders for Microbiology Reports Name Date Urine Culture 01/18/23 Microbiology Reports TEST:Urine Culture STATUS:Order in Progress BODY SITE: SOURCE:Urine, Clean Catch COLLECTED DATE/TIME:01/18/23 9:37 AM PRELIMINARY REPORT No growth at 24 hours. Social History Social History Type Response Tobacco Former tobacco user Tobacco Use:. Sex Female Patient Care team information Care Team Personnel Name: Campos Lopes MD Position: No Access Member Role: Informed Provider Address: Address: Internal Medicine [address] [place] [address] [place], [place] [address] Care Team Related Persons Name: JESUS RAMSEY Address: [place]
--- OUTSIDE RECORDS SUMMARY | 2024-10-09 11:15 | XMS_ITS | Continuity of Care Document ---
Author Organization [facility] Address [address] [place] [address] Care Team Providers Care Ekg Monitor Name Role Phone Campos Lopes Primary Care Physician Encounter [facility] [id number] Date(s): 05/19/23 - 05/19/[address] [address] Discharge Disposition: Home or Self Care Attending [...] Plan Diagnostic Tests Pending * Urine Culture 05/19/23 Immunizations Given and Recorded Vaccine Date Status [...] Results Laboratory List Name Date Urinalysis Microscopic 05/19/23 Urinalysis with Microscopic 05/19/23 Most recent to oldest [Reference Range]: 1 UA Color Yellow (05/19/23 11:34 AM) UA WBC [0-3] 0-3 (05/19/23 11:34 AM) UA Urobilinogen Normal (05/19/23 11:34 AM) UA Bili [Negative] Negative (05/19/23 11:34 AM) UA Ketones Negative (05/19/23 11:34 AM) UA RBC [0-2] 0-2 (05/19/23 11:34 AM) UA Leuk Est Negative (05/19/23 11:34 AM) UA Nitrite Negative (05/19/23 11:34 AM) UA Glucose [Negative] Negative (05/19/23 11:34 AM) UA Bacteria None Seen /HPF (05/19/23 11:34 AM) UA Protein Negative (05/19/23 11:34 AM) UA Blood Negative (05/19/23 11:34 AM) UA Mucous Rare /HPF *ABN* (05/19/23 11:34 AM) UA Spec Grav 1.010 *NA* (05/19/23 11:34 AM) UA Squam Epithelial [None Seen] Rare (05/19/23 11:34 AM) UA pH 6.5 *NA* (05/19/23 11:34 AM) UA Appear Clear (05/19/23 11:34 AM) UA Culture Ind?. Not Applicable (05/19/23 11:34 AM) UA Trans Epi Few (05/19/23 11:34 AM) Social History Social History Type Response Tobacco Never tobacco user T obacco Use:. Sex Female Patient Care team information Care Team Personnel Name: Campos Lopes MD Position: No Access Member Role: Informed Provider Address: Address: [address] [place] [phone] [place] Care Team Related Persons Name: JESUS RAMSEY
--- OUTSIDE RECORDS SUMMARY | 2024-10-09 11:16 | XMS_ITS | Continuity of Care Document ---
Author Organization [facility] Address [address] [place] [address] Care Team Providers Care Compact Assembler Name Role Phone MosesCampos rascon Primary Care Physician Encounter [facility] [id number] Date(s): 02/17/24 - 02/17/24 [facility] [address] [place] [address] Encounter Diagnosis Asthma exacerbation(Discharge Diagnosis) - 02/17/24 Upper respiratory infection(Discharge Diagnosis) - 02/17/24 Discharge Disposition: Home or Self Care Attending Physician: Robbie Sweeney MD Admitting Physician: Robbie Sweeney MD Allergies, Adverse Reactions, Alerts No Known Medication Allergies Substance Reaction Severity Status SHELLFISH DERIVED Unknown Active nitrofurantoin Bladder pain, ineffe ctive for her infections Other Severe Active trimethoprim hives, vaginal itchi ng, tongue swelling Skin rash Severe Active iodine topical Urticaria Unknown Active EPINEPHrine topical Rapid heart beat Moderate Acti ve mirabegron Other Moderate Active Assessment and Plan Extracted from: Title:Clinical Document Author:Pratima Almaguer te:02/17/24 Diagnosis: 1. Asthma exacerb ation Comment: Diagnosis: 2. Upper respiratory infection Comment: Diagnosis: SOB - Shortness of breath Comment: Additional Orders: Comment: Other status: SARS-CoV-2 (COVID-19)/Flu/RSV (GeneXpert),Nasal Swab, Stat Collect, 02/17/24 7:34:00 EDT, Once, Nurse collect, Print Label(Complete) Extracted from: Title:ED Provider Note Author:Robbie Sweeney MD Date:02/17/24 1.??Asthma exacerbation??J45 .901 Ordered: benzonatate 200 mg oral capsule, 200 mg = 1 cap, Oral, every 8 hr, PRN as needed for cough, # 30 cap, 0 Refill(s), 02/27/24 9:39:00 EDT, Pharmacy: [facility] #[id number], 167, cm, 04/27/23 16:42:00 EDT, Height/Length Dosing, 83, kg, 04/27/23 16:42:00 EDT, Weight Dosing Discharge Patient, 02/17/24 9:37:00 EDT, Home Independently, Constant Indicator ?? 2.??Upper respiratory infection??J06.9 Ordered: benzonatate 200 mg oral capsule, 200 mg = 1 cap, Oral, every 8 hr, PRN as needed for cough, # 30 cap, 0 Refill(s), 02/27/24 9:39:00 EDT, Pharmacy: [facility] #[id number], 167, cm, 04/27/23 16:42:00 EDT, Height/Length Dosing, 83, kg, 04/27/23 16:42:00 EDT, Weight Dosing Discharge Patient, 02/17/24 9:37:00 EDT, Home Independently, Constant Indicator ?? Functional Status 02/17/24 Family Member Travel History No recent t ravel Recent Travel History No recent travel Other exposure to Infectious Disease Non e Immunizations Given and Recorded Vaccine Date Status Refusal Reason influenza virus vaccine, live 07/10/19 Recorded influenza virus vaccine, live 07/31/18 Recorded pneumococcal 13-valent conjugate vaccine 06/10/15 Recorded pneumococcal 23-polyvalent vaccine 11/15/07 Record ed Medications atenolol 0 Refill(s) Start Date: 03/17/22 Status: Ordered benzonatate 200 mg oral capsule 200 mg = 1 cap, Oral, every 8 hr, PRN as needed for cough, # 30 cap, 0 Refill(s), 02/27/24 8:39:00 AM CDT, Pharmacy: [facility] #[id number], 167, cm, 04/27/23 16:42:00 EDT, Height/Length Dosing, 83, kg, 04/27/23 16:42:00 EDT, Weight Dosing Start Date: 02/17/24 Stop Date: 02/27/24 Status: Ordered levoFLOXacin 0 Refill(s) Start Date: 03/17/22 Status: Ordered Medrol 4 mg oral tablet 1 packets, Oral, Daily, as directed Start Date: 04/13/22 Status: Ordered omeprazole 0 Refill(s) Start Date: 03/17/22 Status: Ordered ZyrTEC 10 mg oral tablet 10 mg = 1 tab, Oral, Daily Start Date: 04/13/22 Status: Ordered Mental Status 02/17/24 Eye Opening Response [place]uy[place] Spontaneous ly Best Verbal Response [place] Oriented Best Motor Response [place] Obeys comman ds [place] Coma Score 15 Problem List Condition Confirmation Course Effective Dates [...] 12/12/17 Completed Results Laboratory List Name Date CBC w/ Diff 02/17/24 Comprehensive Metabolic Panel (CMP) 02/16 Automated Diff 02/17/24 SARS-CoV-2 (COVID-19)/Flu/RSV (GeneXpert ) 02/17/24 Most recent to oldest [Reference Range]: 1 WBC [5.0-10.0 x10^3/mcL] 7.9 x10^3/mcL (02/17/24 8:20 AM) RBC [4.1-5.3 x10^6/mcL] 5.2 x10^6/mcL (02/17/24 8:20 AM) Neutro Auto [40.0-75.0 %] 68.5 % (02/17/24 8:20 AM) Lymph Auto [20.0-50.0 %] 19.1 % *LOW* (02/17/24 8:20 AM) [place] Auto [2.0-15.0 %] 8.6 % (02/17/24 8: AM) Basophil Auto [0.0-1.0 %] 0.5 % (02/17/24 8:20 AM) BUN [7-18 mg/dL] 18 mg/dL (02/17/24 8:20 AM) Glucose Level [74-106 mg/dL] 126 mg/dL *HI* (02/17/24 AM) Potassium Level [3.5-5.1 mmol/L] 4.0 mmo l/L (02/17/24 8: AM) MCV [80.0-96.0 fL] 88.8 fL (02/17/24 AM) AST [15-37 unit/L] 30 unit/L (02/17/24: AM) ALT [14-59 unit/L] 22 unit/L (02/17/24: AM) MCHC [31.0-35.0 g/dL] 33.0 g/dL (02/17/24 8: AM) Sodium Level [136-145 mmol/L] 139 mmol/L (02/17/24 8: AM) Hct [37.0-47.0 %] 45.8 % (02/17/24: AM) Calcium Level [8.5-10.1 mg/dL] 9.2 mg/dL (02/17/24 8: AM) Albumin Level [3.4-5.0 g/dL] 3.8 g/dL (02/17/24: AM) Protein Total [6.4-8.2 g/dL] 7.3 g/dL (02/17/24 8:20 AM) MCH [26.0-32.0 pg] 29.3 pg (02/17/24 8: AM) Neutro Absolute 5.4 x10^3/mcL *NA* (02/17/24 8: AM) Bilirubin Total [0.2-1.0 mg/dL] 0.4 mg/d L (02/17/24 8: AM) Hgb [12.0-16.0 g/dL] 15.1 g/dL (02/17/24 8:20 AM) Alk Phos [46-146 unit/L] 69 unit/L (02/17/24 8:20 AM) Platelets [130-450 x10^3/mcL] 218 x10^3/ mcL (02/17/24 8:20 AM) CO2 [21-32 mmol/L] 24 mmol/L (02/17/24 8:20 AM) eGFR Non-AA [>=60] 79 (02/17/24 8:20 AM) eGFR AA [>=60] 79 (02/17/24 8:20 AM) Chloride Level [98-107 mmol/L] 102 mmol/ L (02/17/24 8:20 AM) RDW-CV [11.5-14.5 %] 12.5 % (02/17/24 8:20 AM) Imm Gran Auto [0.0-0.9 %] 0.6 % (02/17/24 8:20 AM) Creatinine Level [0.55-1.02 mg/dL] 0.75 mg/dL (02/17/24 8:20 AM) SARS-CoV-2(Covid19)PCR(GXpert COVFLURSV) [Negative] Negative (02/17/24 7:45 AM) Flu A (GXpert COVFLURSV) [Negative] Nega tive (02/17/24 7:45 AM) RSV (GXpert COVFLURSV) [Negative] Negati ve (02/17/24 7:45 AM) Flu B (GXpert COVFLURSV) [Negative] Nega tive (02/17/24 7:45 AM) Eos, Auto [1.0-6.0 %] 2.7 % (02/17/24 8:20 AM) Vital Signs Most recent to oldest [Reference Range]: 1 2 3 Temperature Temporal Artery [36-38 Deg C] 35.4 Deg C *LOW* (02/17/24 7:28 AM) Peripheral Pulse Rate [60-100 bpm] 56 bpm *LOW* (02/17/24 7:28 AM) Heart Rate Monitored [60-100 bpm] 73 bpm (02/17/24 9:38 AM) Respiratory Rate [12-24 br/min] 18 br/min (02/17/24 9:38 AM) 18 br/min (02/17/24 8:12 AM) 18 br/min (02/17/24 7:28 AM) Blood Pressure [90-140/60-90 mmHg] 168/85mmHg *HI* (02/17/24 9:41 AM) Blood Pressure Location Right arm (02/17/24 9:41 AM) Blood Pressure Method Automatic (02/17/24 9:41 AM) Weight Estimated 79.38 kg (02/17/24 7:28 AM) Body Mass Index Estimated 28.46 kg/m2 (02/17/24 7:28 AM) Height/Length Estimated 167 cm (02/17/24 7:28 AM) Social History Social History Type Response Tobacco Never tobacco user T obacco Use:. Sex Female Physician Emergency department Note * Robbie Sweeney MD: PERFORM Event Display: ED Note Physician Authored Date: [id number] TONA BAEZ Amandeep :1940 Age:84 years Sex:Female Visit Date:02/17/2024 Primary Care Physician: Campos Lopes MD Basic Information Time Seen: Robbie Sweeney MD / 02/17/2024 07:54 Chief Complaint I have been SOB for over a week now. I have been really SOB, and nebulizers but they just aren't working. PT denies CP. Sore throat as well and the whole sinus tract. History Of Present Illness: ??secondary to cough.Presenting concern is cough. ??Time of onset is 8 days prior.?? Context is patient with??exercise-induced asthma.?? Exposed to COVID.?? Prior treatment with albuterol nebulizer without help.?? Difficulty sleeping Review of Systems: Negative for fever, chest pain, productive cough, GI symptoms, symptoms.?? Positive for feeling sweaty, persistent cough,??rhinorrhea, ear pain Physical Exam Vitals & Measurements T:??35.4?C ??(Temporal Artery)?? HR:??73??(Monitored)?? RR:??18?? SpO2:??93%?? HT:??167??cm?? WT:??79.38??kg??(Estimated)?? BMI:??28.46?? O2 Flow Rate:??2?? O2 Therapy:??Room air?? No distress.?? Scattered coarse rales.?? Heart sounds normal. ??Mental status normal.?? Tympanic membranes normal. Medical Decision Making: Problem complexity is low. ??Data complexity is low. ??Management risk are low. ??[facility] coding 05274 Procedure No Qualifying Data Assessment/Plan 1.??Asthma exacerbation??J45.901 Ordered: benzonatate 200 mg oral capsule, 200 mg = 1 cap, Oral, every 8 hr, PRN as needed for cough, # 30 cap, 0 Refill(s), 02/27/24 9:39:00 EDT, Pharmacy: [facility] #[id number], 167, cm, 04/27/23 16:42:00 EDT, Height/Length Dosing, 83, kg, 04/27/23 16:42:00 EDT, Weight Dosing Discharge Patient, 02/17/24 9:37:00 EDT, Home Independently, Constant Indicator ?? 2.??Upper respiratory infection??J06.9 Ordered: benzonatate 200 mg oral capsule, 200 mg = 1 cap, Oral, every 8 hr, PRN as needed for cough, # 30 cap, 0 Refill(s), 02/27/24 9:39:00 EDT, Pharmacy: [facility] #[id number], 167, cm, 04/27/23 16:42:00 EDT, Height/Length Dosing, 83, kg, 04/27/23 16:42:00 EDT, Weight Dosing Discharge Patient, 02/17/24 9:37:00 EDT, Home Independently, Constant Indicator ?? Medication Reconciliation New Prescription benzonatate (benzonatate 200 mg oral capsule)1 Capsules Oral (given by mouth) every 8 hours as needed as needed for cough. Refills: 0. ?? Unchanged atenolol ?? cetirizine (ZyrTEC 10 mg [...] tunnel release open (12/13/2017) Medication Administration Given ipratropium-albuterol 0.5 mg-2.5 mg/3 mL inhalation solution, 3 mL, Inhale ipratropium-albuterol 0.5 mg-2.5 mg/3 mL inhalation solution, 3 mL, Inhale Allergies nitrofurantoin??(Bladder pain, ineffective for her infections, Other) trimethoprim??(hives, vaginal itching, tongue swelling, Skin rash) EPINEPHrine topical??(Rapid heart beat) mirabegron??(Other) No Known Medication Allergies SHELLFISH DERIVED iodine topical??(Urticaria) Social History Alcohol Current, 1-2 times per month Electronic Cigarette/Vaping Electronic Cigarette Use: Never. Substance Use Never Tobacco Never tobacco user Tobacco Use:. Lab Results CBC and Differential?? LATEST RESULTS?? HISTORICAL RESULTS?? WBC?? 02/17/24 08:20?? 7.9?? 11/07/23?? 7.6?? RBC?? 02/17/24 08:20?? 5.2?? 11/07/23?? 5.2?? Hgb?? 02/17/24 08:20?? 15.1?? 11/07/23?? 15.4?? Hct?? 02/17/24 08:20?? 45.8?? 11/07/23?? 46.9?? MCV?? 02/17/24 08:20?? 88.8?? 11/07/23?? 90.0?? MCH?? 02/17/24 08:20?? 29.3?? 11/07/23?? 29.6?? MCHC?? 02/17/24 08:20?? 33.0?? 11/07/23?? 32.8?? RDW-CV?? 02/17/24 08:20?? 12.5?? 11/07/23?? 12.9?? Platelets?? 02/17/24 08:20?? 218?? 11/07/23?? 206?? Neutro Auto?? 02/17/24 08:20?? 68.5?? 11/07/23?? 65.1?? Lymph Auto?? 02/17/24 08:20?? 19.1 ??Low?? 11/07/23?? 24.9?? [place] Auto?? 02/17/24 08:20?? 8.6?? 11/07/23?? 6.5?? Eos, Auto?? 02/17/24 08:20?? 2.7?? 11/07/23?? 2.2?? Basophil Auto?? 02/17/24 08:20?? 0.5?? 11/07/23?? 0.9?? Imm Gran Auto?? 02/17/24 08:20?? 0.6?? 11/07/23?? 0.4?? Neutro Absolute?? 02/17/24 08:20?? 5.4?? 11/07/23?? 5.0? Routine Chemistry?? LATEST RESULTS?? HISTORICAL RESULTS?? Sodium Level?? 02/17/24 08:20?? 139?? 01/19/24?? 141?? Potassium Level?? 02/17/24 08:20?? 4.0?? 01/19/24?? 4.2?? Chloride Level?? 02/17/24 08:20?? 102?? 01/19/24?? 105?? CO2?? 02/17/24 08:20?? 24?? 01/19/24?? 30?? Alk Phos?? 02/17/24 08:20?? 69?? 11/07/23?? 71?? AST?? 02/17/24 08:20?? 30?? 11/07/23?? 21?? ALT?? 02/17/24 08:20?? 22?? 11/07/23?? 27?? BUN?? 02/17/24 08:20?? 18?? 01/19/24?? 19 ??High?? Glucose Level?? 02/17/24 08:20?? 126 ??High?? 01/19/24?? 92?? Creatinine Level?? 02/17/24 08:20?? 0.75?? 01/19/24?? 0.97?? eGFR AA?? 02/17/24 08:20?? 79?? 01/19/24?? 59 ??Low?? eGFR Non-AA?? 02/17/24 08:20?? 79?? 01/19/24?? 59 ??Low?? Calcium Level?? 02/17/24 08:20?? 9.2?? 01/19/24?? 8.7?? Protein Total?? 02/17/24 08:20?? 7.3?? 11/07/23?? 7.0?? Albumin Level?? 02/17/24 08:20?? 3.8?? 11/07/23?? 3.6?? Bilirubin Total?? 02/17/24 08:20?? 0.4?? 11/07/23?? 0.5? Infectious Disease?? LATEST RESULTS?? SARS-CoV-2(Covid19)PCR(GXpert COVFLURSV)?? 02/17/24 07:45?? Negative?? Flu A (GXpert COVFLURSV)?? 02/17/24 07:45?? Negative?? Flu B (GXpert COVFLURSV)?? 02/17/24 07:45?? Negative?? RSV (GXpert COVFLURSV)?? 02/17/24 07:45?? Negative? Electronically Signed on 02/17/24 09:39 AM Robbie Sweeney MD Emergency department Discharge instructions * Robbie Sweeney MD: PERFORM Event Display: ED Discharge Information Authored Date: [id number] NESTOR TONA L :1940 Age:84 years Sex:Female Visit Date:02/17/2024 Primary Care Physician: Campos Lopes MD Discharge Instructions We would like to thank you for allowing us to assist you with your healthcare needs. The following includes patient education materials and information regarding your injury/illness. Diagnosis from Today's Visit Asthma exacerbation Upper respiratory infection Discharge Vitals Temperature??(Temporal Artery) 95.7 ??F (35.4 ??C) Heart Rate??(Monitored) 73 Respiratory Rate?? 18 SpO2?? 93% Height?? 65.75 in (167 cm) Weight??(Estimated) 175.03 lb (79.38 kg) BMI?? 28.46 Allergies nitrofurantoin??(Bladder pain, ineffective for her infections, Other) trimethoprim??(hives, vaginal itching, tongue swelling, Skin rash) EPINEPHrine topical??(Rapid heart beat) mirabegron??(Other) No Known Medication Allergies SHELLFISH DERIVED iodine topical??(Urticaria) What to Do Next Instructions from Your Care Team There is no evidence of a serious bacterial or viral infection.?? Take??decreasing doses of prednisone as??high as written on the prescription.?? 4 tabs daily for 3 days, 3 tabs daily for 3 days, 2 tabs daily for 3 days,??1 tab daily for 3 days.?? We may also take 1 benzonatate 200 mg up to 3 timesper day as needed for bothersome cough.?? There should be gradual improvement. ?? Robbie Sweeney MD You were treated [...] Emergency Department. Medications What How Much When Why Instructions Next Dose New benzonatate (benzonatate 200 mg oral capsule) 1 Capsules Oral (given by mouth) Every 8 hours as needed for as needed for cough Asthma exacerbation Upper respiratory infection Pickup at [facility] #[id number] Unchanged atenolol Unchanged cetirizine (ZyrTEC 10 mg oral tablet) 1 tab Oral (given by mouth) Every day Unchanged levoFLOXacin Unchanged methylPREDNISolone (Medrol 4 mg oral tablet) 1 packets Oral (given by mouth) Every day as directed ?? Unchanged omeprazole Pharmacy Information [facility] #[id number]: [address] [place], [place] [id number] [phone] Tests Performed Medications and Immunizations Administered Given ipratropium-albuterol 0.5 mg-2.5 mg/3 mL inhalation solution, 3 mL, Inhale ipratropium-albuterol 0.5 mg-2.5 mg/3 mL inhalation solution, 3 mL, Inhale Lab Test Name Test Result Date/Time WBC 7.9 x10^3/mcL 02/17/2024 08:20 EDT RBC 5.2 x10^6/mcL 02/17/2024 08:20 EDT Hgb 15.1 g/dL 02/17/2024 08:20 EDT Hct 45.8 % 02/17/2024 08:20 EDT MCV 88.8 fL 02/17/2024 08:20 EDT MCH 29.3 pg 02/17/2024 08:20 EDT MCHC 33.0 g/dL 02/17/2024 08:20 EDT RDW-CV 12.5 % 02/17/2024 08:20 EDT Platelets 218 x10^3/mcL 02/17/2024 08:20 EDT Neutro Auto 68.5 % 02/17/2024 08:20 EDT Lymph Auto 19.1 % 02/17/2024 08:20 EDT [place] Auto 8.6 % 02/17/2024 08:20 EDT Eos, Auto 2.7 % 02/17/2024 08:20 EDT Basophil Auto 0.5 % 02/17/2024 08:20 EDT Imm Gran Auto 0.6 % 02/17/2024 08:20 EDT Neutro Absolute 5.4 x10^3/mcL 02/17/2024 08:20 EDT Sodium Level 139 mmol/L 02/17/2024 08:20 EDT Potassium Level 4.0 mmol/L 02/17/2024 08:20 EDT Chloride Level 102 mmol/L 02/17/2024 08:20 EDT CO2 24 mmol/L 02/17/2024 08:20 EDT Alk Phos 69 unit/L 02/17/2024 08:20 EDT AST 30 unit/L 02/17/2024 08:20 EDT ALT 22 unit/L 02/17/2024 08:20 EDT BUN 18 mg/dL 02/17/2024 08:20 EDT Glucose Level 126 mg/dL 02/17/2024 08:20 EDT Creatinine Level 0.75 mg/dL 02/17/2024 08:20 EDT eGFR AA 79 02/17/2024 08:20 EDT eGFR Non-AA 79 02/17/2024 08:20 EDT Calcium Level 9.2 mg/dL 02/17/2024 08:20 EDT Protein Total 7.3 g/dL 02/17/2024 08:20 EDT Albumin Level 3.8 g/dL 02/17/2024 08:20 EDT Bilirubin Total 0.4 mg/dL 02/17/2024 08:20 EDT SARS-CoV-2(Covid19)PCR(GXpert COVFLURSV) NEGATIVE 02/17/2024 07:45 EDT Flu A (GXpert COVFLURSV) NEGATIVE 02/17/2024 07:45 EDT Flu B (GXpert COVFLURSV) Neg-GeneXPert 02/17/2024 07:45 EDT RSV (GXpert COVFLURSV) Neg-GeneXPert 02/17/2024 07:45 EDT Patient/Engineering Supplies Sales Signature Patient Name:LIVEMARIYAKWESITONA I have received this information and my questions have been answered. Patient/Engineering Supplies Sales Name: Patient/Engineering Supplies Sales Signature: Relationship to Patient: Witness Name/Signature: Date: Electronically Signed on: 02/17/2024 09:39 EDTSigned by:[facility] Discharge summary * Pratima Almaguer: PERFORM Event Display: Discharge Note Authored Date: * Pratima Almaguer: PERFORM Event Display: Discharge Note Authored Date: Diagnosis: 1. Asthma exacerbation Comment: Diagnosis: 2. Upper respiratory infection Comment: Diagnosis: SOB - Shortness of breath Comment: Additional Orders: Comment: Other status: SARS-CoV-2 (COVID-19)/Flu/RSV (GeneXpert),Nasal Swab, Stat Collect, 02/17/24 7:34:00 EDT, Once, Nurse collect, Print Label(Complete) Electronically Signed on 02/17/24 11:35 AM Pratima Almaguer Patient Care team information Care Team Personnel Name: Campos Lopes MD Position: No Access Member Role: Informed Provider Address: Address: [address] [place] [phone] Care Team Related Persons Name: JESUS RAMSEY
--- OUTSIDE RECORDS SUMMARY | 2024-10-09 11:16 | XMS_ITS | Continuity of Care Document ---
Author Organization [facility] Address [address] [place] [address] Care Team Providers Care Label Tacker Name Role Phone Rosario Bahena Primary Care Physician [facility]counter [facility] Date(s): 04/05/24 - 04/05/24 [facility] [address] [place] [address] Discharge Disposition: Home or Self Care Attending [...] topical Rapid heart beat Moderate Acti ve Immunizations Given and Recorded Vaccine Date Status [...] Results Laboratory List Name Date Free T4 04/05/24 Thyroid Stimulating Hormone 04/05/24 Most recent to oldest [Reference Range]: 1 T4 Free [0.76-1.46 ng/dL] 0.82 ng/dL (04/05/24 4:10 PM) TSH [0.358-3.740 mcIntlUnit/mL] 2.615 mc IntlUnit/mL (04/05/24 4:10 PM) Orders for Microbiology Reports Name Date Urine Culture 04/05/24 Microbiology Reports TEST:Urine Culture STATUS:Order in Progress BODY SITE: SOURCE:Urine, Clean Catch COLLECTED DATE/TIME:04/05/24 4:02 PM PRELIMINARY REPORT 10,000 - 100,000 cfu/ml Klebsiella pneumoniae Susceptibility to follow. Social History Social History Type Response Tobacco Former tobacco user Tobacco Use:. Sex Female Patient Care team information Care Team Personnel Name: Rosario Bahena MD Position: No Access Member Role: Primary Care Physician Address: Address: [address] [place] [id number] Name: Campos Lopes MD Position: No Access Member Role: Informed Provider Address: Address: [address] [place] [phone] [place] Care Team Related Persons Name: JESUS RAMSEY
--- OUTSIDE RECORDS SUMMARY | 2024-10-09 11:16 | XMS_ITS | Continuity of Care Document ---
Author Organization [facility] Address [address] [place] [address] Care Team Providers Care Purchasing Department Clerk Name Role Phone MosesCampos Primary Care Physician [phone] Encounter [facility] [id number] Date(s): 10/27/23 - 10/27/[address] [address] Discharge Disposition: Home or Self Care Attending [...] for Microbiology Reports Name Date Urine Culture 10/27/23 Microbiology Reports TEST:Urine Culture STATUS:Order in Progress BODY SITE: SOURCE:Urine, Clean Catch COLLECTED DATE/TIME:10/27/23 1:01 PM PRELIMINARY REPORT <10,000 cfu/ml Gram Negative Bacilli Social History Social History Type Response Tobacco Never tobacco user T obacco Use:. Sex Female Patient Care team information Care Team Personnel Name: Campos Lopes MD Position: No Access Member Role: Informed Provider Address: Address: [address] [place] [id number] [place] Care Team Related Persons Name: JESUS RAMSEY
--- OUTSIDE RECORDS SUMMARY | 2024-10-09 11:16 | XMS_ITS | Continuity of Care Document ---
Author Organization [facility] Address [address] [place] [address] Care Team Providers Care Executor Of Estate Name Role Phone Rosario Bahena Primary Care Physician [phone] Encounter [facility] Date(s): 06/17/24 - 06/17/[address] [address] Discharge Disposition: Home or Self Care Attending [...] antibiotics Unable to assess criticality Unknown Active Assessment and Plan Diagnostic Tests Pending * Urine Culture 06/17/24 Immunizations Given and Recorded Vaccine Date Status [...] No Access Member Role: Informed Provider Address: [address] [place] [address] Care Team Related Persons Name: JESUS RAMSEY Insurance Providers Guarantor name: TONA BAEZ Health Plan Information #: 2 Payer: [facility] MEDICAID Member Number: [id number] Policy Number: NA Health Plan Information #: 1 Payer: MEDICARE B [employer] Member Number: [id number] Policy Number: NA
--- OUTSIDE RECORDS SUMMARY | 2024-10-09 11:16 | XMS_ITS | Continuity of Care Document ---
Author Organization [facility] Address [address] [place] [address] Care Team Providers Care Wood Cabinetmaker Name Role Phone MosesCampos Primary Care Physician Encounter [facility] [id number] Date(s): 11/17/23 - 11/17/[address] [address] Discharge Disposition: Home or Self Care Attending Physician: Dinorah Ward MD Admitting Physician: Dinorah Ward MD Referring Physician: Dinorah Ward MD Allergies, Adverse Reactions, Alerts No Known [...] Access Member Role: Informed Provider Address: Address: [address] [place] [phone] [place] Care Team Related Persons Name: JESUS RAMSEY
--- OUTSIDE RECORDS SUMMARY | 2024-10-09 11:16 | XMS_ITS | Continuity of Care Document ---
Author Organization [facility] Address [address] [place] [address] Care Team Providers Care Heating Plant Superintendent Name Role Phone Campos Lopes Primary Care Physician [phone] Encounter [facility] [place] [id number] Date(s): 06/28/23 - 06/28/[address] [address] Discharge Disposition: Home or Self Care Attending [...] Plan Diagnostic Tests Pending * Urine Culture 06/28/23 Immunizations Given and Recorded Vaccine Date Status [...] Results Laboratory List Name Date Urinalysis Microscopic 06/28/23 Urinalysis with Microscopic 06/28/23 Free T4 06/28/23 T3, Total [facility] 06/28/23 Thyroid Stimulating Hormone 06/28/23 Most recent to oldest [Reference Range]: 1 UA Color Yellow (06/28/23 10:58 AM) UA WBC [0-3] 3-5 *ABN* (06/28/23 10:58 AM) UA Urobilinogen Normal (06/28/23 10:58 AM) T4 Free [0.76-1.46 ng/dL] 1.01 ng/dL (06/28/23 10:55 AM) UA Bili [Negative] Negative (06/28/23 10:58 AM) UA Ketones Negative (06/28/23 10:58 AM) UA RBC [0-2] 0-2 (06/28/23 10:58 AM) UA Leuk Est Trace *ABN* (06/28/23 10:58 AM) UA Nitrite Negative (06/28/23 10:58 AM) UA Glucose [Negative] Negative (06/28/23 10:58 AM) UA Bacteria Few /HPF *ABN* (06/28/23 10:58 AM) UA Protein Negative (06/28/23 10:58 AM) UA Blood Trace *ABN* (06/28/23 10:58 AM) UA Mucous None Seen /HPF (06/28/23 10:58 AM) UA Spec Grav 1.010 *NA* (06/28/23 10:58 AM) UA Squam Epithelial [None Seen] Rare (06/28/23 10:58 AM) TSH [0.358-3.740 mcIntlUnit/mL] 0.019 mc IntlUnit/mL *LOW* (06/28/23 10:55 AM) UA pH 5.5 *NA* (06/28/23 10:58 AM) UA Appear Clear (06/28/23 10:58 AM) UA Culture Ind?. Not Applicable (06/28/23 10:58 AM) T3, Total [facility] [97-169 ng/dL] 99 ng/dL 1 *NA* (06/28/23 10:55 AM) 1Result Comment: Test performed or referred by The [address] [address] Social History Social History Type Response Tobacco Never tobacco user T obacco Use:. Sex Female Patient Care team information Care Team Personnel Name: Campos Lopes MD Position: No Access Member Role: Informed Provider Address: Address: [address] [place] [phone] [place] Care Team Related Persons Name: JESUS RAMSEY
--- OUTSIDE RECORDS SUMMARY | 2024-10-09 11:16 | XMS_ITS | Continuity of Care Document ---
Author Organization [facility] Address [address] [place] [address] Care Team Providers Care Coldfusion Name Role Phone Rosario Bahena Primary Care Physician Encounter [facility] Date(s): 08/23/24 - 08/23/[address] [address] Discharge Disposition: Home or Self Care Attending Physician: Kelsy Fierro MD Admitting Physician: Kelsy Fierro MD Referring Physician: Kelsy Fierro MD Allergies, Adverse Reactions, Alerts No Known Medication Allergies Substance Criticality Severity Reaction Reaction Severity Status SHELLFISH DERIVED Unable to assess criticality Unknown Active nitrofurantoin High criticality Severe Bladder p ain, ineffective for her infections Other Active iodine topical Unable to assess criticality Unknown Urticaria Active quinolone antibiotics Unable to assess criticality Unknown Active EPINEPHrine topical High criticality Moderate Rapid heart b eat Active mirabegron High criticality Moderate Other Ac tive Immunizations Given and Recorded Vaccine Date Status [...] Results Laboratory List Name Date Urinalysis Microscopic 08/23/24 Urinalysis with Microscopic 08/23/24 Most recent to oldest [Reference Range]: 1 UA Color Yellow (08/23/24 1:54 PM) UA WBC [0-3] 0-3 (08/23/24 1:54 PM) UA Urobilinogen Normal (08/23/24 1:54 PM) UA Hyal Cast Rare /HPF (08/23/24 1:54 PM) UA Bili [Negative] Negative (08/23/24 1:54 PM) UA Ketones Negative (08/23/24 1:54 PM) UA RBC [0-2] 0-2 (08/23/24 1:54 PM) UA Leuk Est Negative (08/23/24 1:54 PM) UA Nitrite Negative (08/23/24 1:54 PM) UA Glucose [Negative] Negative (08/23/24 1:54 PM) UA Bacteria None Seen /HPF (08/23/24 1:54 PM) UA Protein Negative (08/23/24 1:54 PM) UA Blood Negative (08/23/24 1:54 PM) UA Mucous None Seen /HPF (08/23/24 1:54 PM) UA Spec Grav 1.025 *NA* (08/23/24 1:54 PM) UA Squam Epithelial [None Seen] Rare (08/23/24 1:54 PM) UA pH 5.5 *NA* (08/23/24 1:54 PM) UA Appear Clear (08/23/24 1:54 PM) UA Culture Ind?. Not Indicated (08/23/24 1:54 PM) Orders for Microbiology Reports Name Date Urine Culture 08/23/24 Microbiology Reports TEST:Urine Culture STATUS:Order in Progress BODY SITE: SOURCE:Urine, Clean Catch COLLECTED DATE/TIME:08/23/24 1:54 PM PRELIMINARY REPORT No growth at 24 hours. Social History Social History Type Response Tobacco Former tobacco user Tobacco Use:. Sex Female Sex Representation Female (finding) Patient Care team information Care Team Personnel Name: Rosario Bahena MD Position: No Access Member Role: Informed Provider Address: [address] [place] [address] Care Team Related Persons Name: JESUS RAMSEY Insurance Providers Guarantor name: TONA BAEZ Health Plan Information #: 1 Payer: MEDICARE B [employer] Member Number: [id number] Policy Number: NA Health Plan Information #: 2 Payer: [facility] MEDICAID Member Number: [id number] Policy Number: NA
--- OUTSIDE RECORDS SUMMARY | 2024-10-09 11:16 | XMS_ITS | Continuity of Care Document ---
Author Organization [facility] Address [address] [place] [address] Care Team Providers Care Psychology Teacher Name Role Phone Rosario Bahena Primary Care Physician Encounter [facility] [id number] Date(s): 03/24/24 - 03/24/[address] [address] Discharge Disposition: Home or Self Care Attending Physician: Rosario Bahena MD Admitting Physician: Rosario Bahena MD Referring Physician: Rosario Bahena MD Allergies, Adverse Reactions, Alerts No Known [...] Confirmed Active Chronic obstructive lung disease Confirmed 2/22/21 Active Extended spectrum beta-lactamase producing Klebsiella pneumoniae [...] Member Role: Primary Care Physician Address: Address: [address] [place] [id number] Name: Campos Lopes MD Position: No Access Member Role: Informed Provider Address: Address: [address] [place] [phone] Care Team Related Persons Name: JESUS RAMSEY
--- OUTSIDE RECORDS SUMMARY | 2024-10-09 11:16 | XMS_ITS | Continuity of Care Document ---
Author Organization [facility] Address [address] [place] [address] Care Team Providers Care Service Loss Control Consultant Name Role Phone MosesCampos Primary Care Physician Encounter [facility] Date(s): 10/11/23 - 10/11/[address] [address] Discharge Disposition: Home or Self Care Attending [...] Results Laboratory List Name Date Automated Diff 10/11/23 CBC w/ Diff 10/11/23 Comprehensive Metabolic Panel 10/11/23 Free T4 10/11/23 Thyroid Stimulating Hormone 10/11/23 Most recent to oldest [Reference Range]: 1 WBC [5.0-10.0 x10^3/mcL] 8.8 x10^3/mcL (10/11/23 3:55 PM) RBC [4.1-5.3 x10^6/mcL] 5.2 x10^6/mcL (10/11/23 3:55 PM) Neutro Auto [40.0-75.0 %] 63.6 % (10/11/23 3:55 PM) Lymph Auto [20.0-50.0 %] 27.1 % (10/11/23 3:55 PM) Jay Auto [2.0-15.0 %] 6.3 % (10/11/23 3:55 PM) Basophil Auto [0.0-1.0 %] 0.6 % (10/11/23 3:55 PM) BUN [7-18 mg/dL] 18 mg/dL (10/11/23 3:55 PM) Glucose Level [74-106 mg/dL] 93 mg/dL (10/11/23 3:55 PM) Potassium Level [3.5-5.1 mmol/L] 3.9 mmo l/L (10/11/23 3:55 PM) MCV [80.0-96.0 fL] 90.3 fL (10/11/23 3:55 PM) T4 Free [0.76-1.46 ng/dL] 0.70 ng/dL *LOW* (10/11/23 3:55 PM) AST [15-37 unit/L] 20 unit/L (10/11/23 3:55 PM) ALT [14-59 unit/L] 22 unit/L (10/11/23 3:55 PM) MCHC [31.0-35.0 g/dL] 32.3 g/dL (10/11/23 3:55 PM) Sodium Level [136-145 mmol/L] 140 mmol/L (10/11/23 3:55 PM) Hct [37.0-47.0 %] 46.7 % (10/11/23 3:55 PM) Calcium Level [8.5-10.1 mg/dL] 9.3 mg/dL (10/11/23 3:55 PM) Albumin Level [3.4-5.0 g/dL] 3.7 g/dL (10/11/23 3:55 PM) Protein Total [6.4-8.2 g/dL] 7.2 g/dL (10/11/23 3:55 PM) MCH [26.0-32.0 pg] 29.2 pg (10/11/23 3:55 PM) Neutro Absolute 5.6 x10^3/mcL *NA* (10/11/23 3:55 PM) Bilirubin Total [0.2-1.0 mg/dL] 0.5 mg/d L (10/11/23 3:55 PM) Hgb [12.0-16.0 g/dL] 15.1 g/dL (10/11/23 3:55 PM) Alk Phos [46-146 unit/L] 67 unit/L (10/11/23 3:55 PM) Platelets [130-450 x10^3/mcL] 184 x10^3/ mcL (10/11/23 3:55 PM) CO2 [21-32 mmol/L] 29 mmol/L (10/11/23 3:55 PM) TSH [0.358-3.740 mcIntlUnit/mL] 6.994 mc IntlUnit/mL *HI* (10/11/23 3:55 PM) eGFR Non-AA [>=60] 72 (10/11/23 3:55 PM) eGFR AA [>=60] 72 (10/11/23 3:55 PM) Chloride Level [98-107 mmol/L] 104 mmol/ L (10/11/23 3:55 PM) RDW-CV [11.5-14.5 %] 12.8 % (10/11/23 3:55 PM) Imm Gran Auto [0.0-0.9 %] 0.5 % (10/11/23 3:55 PM) Creatinine Level [0.55-1.02 mg/dL] 0.82 mg/dL (10/11/23 3:55 PM) Eos, Auto [1.0-6.0 %] 1.9 % (10/11/23 3:55 PM) Social History Social History Type Response Tobacco Never tobacco user T obacco Use:. Sex Female Patient Care team information Care Team Personnel Name: Campos Lopes MD Position: No Access Member Role: Informed Provider Address: Address: [address] [place] [phone] [place] Care Team Related Persons Name: JESUS RAMSEY
--- OUTSIDE RECORDS SUMMARY | 2024-10-09 11:16 | XMS_ITS | Continuity of Care Document ---
Author Organization [facility] Address [address] [place] [address] Care Team Providers Care Food Mixer Assembler Name Role Phone MosesCampos Primary Care Physician [phone] [facility] Date(s): 04/27/23 - 04/27/[address] [address] Discharge Disposition: Home or Self Care Attending [...] Assessment and Plan Diagnostic Tests Pending * Lyme Antibody [facility] 04/27/23 Functional Status 04/27/23 Family Member Travel History No recent t [...] cap, 0 Refill(s), 05/07/23 17:16:00 EDT, Pharmacy: [facility] #[id number], 167, cm, 04/27/23 16:42:00 EDT, Height/Length Dosing, [...] Results Laboratory List Name Date Urinalysis Microscopic 04/27/23 Urinalysis with Micro if Indicated and C ulture if Indicated 04/27/23 Most recent to oldest [Reference Range]: 1 UA Color Yellow (04/27/23 5:06 PM) UA WBC [0-3] 0-3 (04/27/23 5:06 PM) UA Urobilinogen Normal (04/27/23 5:06 PM) UA Bili [Negative] Negative (04/27/23 5:06 PM) UA Ketones Negative (04/27/23 5:06 PM) UA RBC [0-2] 0-2 (04/27/23 5:06 PM) UA Leuk Est Negative (04/27/23 5:06 PM) UA Nitrite Negative (04/27/23 5:06 PM) UA Glucose [Negative] Negative (04/27/23 5:06 PM) UA Bacteria Rare /HPF (04/27/23 5:06 PM) UA Protein Negative (04/27/23 5:06 PM) UA Blood Trace *ABN* (04/27/23 5:06 PM) UA Mucous None Seen /HPF (04/27/23 5:06 PM) UA Spec Grav <=1.005 *NA* (04/27/23 5:06 PM) UA Squam Epithelial [None Seen] Rare (04/27/23 5:06 PM) UA pH 7.0 *NA* (04/27/23 5:06 PM) UA Appear Clear (04/27/23 5:06 PM) UA Culture Ind?. Not Indicated (04/27/23 5:06 PM) Vital Signs Most recent to oldest [Reference Range]: 1 Temperature Temporal Artery [36-38 Deg C ] 36.3 Deg C (04/27/23 4:33 PM) Peripheral Pulse Rate [60-100 bpm] 66 bp m (04/27/23 4:33 PM) Respiratory Rate [12-24 br/min] 18 br/mi n (04/27/23 4:33 PM) Blood Pressure [90-140/60-90 mmHg] 167/8 5mmHg *HI* (04/27/23 4:33 PM) Weight Dosing 83.00 kg (04/27/23 4:42 PM) Weight Estimated 83.00 kg (04/27/23 4:33 PM) Height/Length Dosing 167.000 cm (04/27/23 4:42 PM) Height/Length Estimated 167.000 cm (04/27/23 4:33 PM) Social History Social History Type Response Tobacco Never tobacco user T obacco Use:. Sex Female Physician Emergency department Note * Robbie Sweeney MD: PERFORM Event Display: ED Note Physician Authored Date: [id number] TONA BAEZ Amandeep :1940 Age:83 years Sex:Female Visit Date:04/27/2023 Primary Care Physician: Campos Lopes MD Basic Information Time Seen: Robbie Sweeney MD / 04/27/2023 16:36 Chief Complaint Pt reports 15 years of bladder troubles r/t cystitis. States came to ER now r/t inability to sit wopain. Frequency, urgency. Urine culture completed tuesday. Pt very argumentative and aggressive in triage. +culture per patient. History Of Present Illness: Patient has persistent symptoms of??urinary tract infection after being treated with??cefuroxime.??She also complains of lesion on the right arm x1 week which??has the appearance of a halo. Review of Systems: Negative for fever. ??Positive for urinary symptoms??and low back discomfort. Physical Exam Vitals & Measurements T:??36.3?C ??(Temporal Artery)?? HR:??66??(Peripheral)?? RR:??18?? BP:??167/85?? SpO2:??97%?? HT:??167.000??cm?? WT:??83.00??kg??(Estimated)?? No acute distress. ??Mental status normal.?? On the right forearm there is a 2 cm??round area of hemorrhagic change??with a central??bite site. Medical Decision Making: Complexity is??low. ??Data complexity is low. ??Management risk are low.?? [facility] coding 26399. Procedure No Qualifying Data Assessment/Plan Ordered: doxycycline monohydrate 100 mg oral capsule, 100 mg = 1 cap, Oral, BID, X 10 days, # 20 cap, 0 Refill(s), 05/07/23 17:16:00 EDT, Pharmacy: [facility] #[id number], 167, cm, 04/27/23 16:42:00 EDT,Height/Length Dosing, 83, kg, 04/27/23 16:42:00 EDT, Weight Dosing Discharge Patient, 04/27/23 17:16:00 EDT, Home Independently, Constant Indicator Lyme Antibody [facility], Blood, Stat, 04/27/23 17:09:00 EDT, Once, Nurse collect Urinalysis with Micro if Indicated and Culture if Indicated, Urine, Stat Collect, 04/27/23 16:38:00EDT, Once, Nurse collect, Print Label Urinalysis with Micro if Indicated and Culture if Indicated, Urine, Stat Collect, 04/27/23 17:08:00EDT, Once, Nurse collect, Print Label Discharge diagnosis??is??dysuria. Medication Reconciliation New Prescription doxycycline (doxycycline monohydrate 100 mg oral capsule)1 Capsules Oral (given by mouth) 2 times aday for 10 Days. Refills: 0. ?? Unchanged atenolol ?? cetirizine [...] Electronic Cigarette/Vaping Electronic Cigarette Use: Never. Tobacco Never tobacco user Tobacco Use:. Electronically Signed on 04/27/23 05:20 PM Robbie Sweeney MD Emergency department Discharge instructions * Robbie Sweeney MD: PERFORM Event Display: ED Discharge Information Authored Date: [id number] TONA BAEZ :1940 Age:83 years Sex:Female Visit Date:04/27/2023 Primary Care Physician: Campos Lopes MD Discharge Instructions We would like to thank you for allowing us to assist you with your healthcare needs. The following includes patient education materials and information regarding your injury/illness. Discharge Vitals Temperature??(Temporal Artery) 97.3 ??F (36.3 ??C) Heart Rate??(Peripheral) 66 Respiratory Rate?? 18 Blood Pressure?? 167/85?? Height?? 65.75 in (167.000 cm) Weight??(Estimated) 183.02 lb (83.00 kg) Allergies nitrofurantoin??(Bladder pain, ineffective for her infections, Other) trimethoprim??(hives, vaginal itching, tongue swelling, Skin rash) EPINEPHrine topical??(Rapid heart beat) mirabegron??(Other) No Known Medication Allergies SHELLFISH DERIVED iodine topical??(Urticaria) What to Do Next Instructions from Your Care Team Take doxycycline??100 mg twice daily for 2 weeks. ?? Follow-up with your primary care provider. ?? Robbie Sweeney MD You were treated [...] What How Much When Instructions Next Dose New doxycycline (doxycycline monohydrate 100 mg oral capsule) 1 Capsules Oral (given by mouth) 2 times a day Duration: 10 Days Pickup at [facility] #[id number] Unchanged atenolol Unchanged cetirizine (ZyrTEC 10 mg oral tablet) 1 tab Oral (given by mouth) Every day Unchanged levoFLOXacin Unchanged methylPREDNISolone (Medrol 4 mg oral tablet) 1 packets Oral (given by mouth) Every day as directed ?? Unchanged omeprazole Pharmacy Information [facility] #[id number]: [address] [phone] Patient/Director Of Accreditation Signature Patient Name:TONA BAEZ I have received this information and my questions have been answered. Patient/Director Of Accreditation Name: Patient/Director Of Accreditation Signature: Relationship to Patient: Witness Name/Signature: Date: Electronically Signed on: 04/27/2023 17:20 EDTSigned by:[facility] Emergency department Note * Jazz Blanchard M: PERFORM Event Display: ED Notes Authored Date: [id number] Patient Care team information Care Team Personnel Name: Campos Lopes MD Position: No Access Member Role: Informed Provider Address: Address: [address] [place] [phone] Name: Flaquito Otero RN Position: Nurse Member Role: ED Nurse Name: Robbie Sweeney MD Position: Physician Member Role: Admitting Physician Address: Address: [address] [place] [phone] [place] Care Team Related Persons Name: JESUS RAMSEY
--- OUTSIDE RECORDS SUMMARY | 2024-10-09 11:16 | XMS_ITS | Continuity of Care Document ---
Author Organization [facility] Address [address] [place] [address] Care Team Providers Care Licensed Plumber Name Role Phone MosesCampos Primary Care Physician Encounter [facility] Date(s): 09/17/23 - 09/17/[address] [address] Discharge Disposition: Home or Self Care Attending [...] Results Laboratory List Name Date Free T4 09/17/23 Thyroid Stimulating Hormone 09/17/23 Most recent to oldest [Reference Range]: 1 T4 Free [0.76-1.46 ng/dL] 0.79 ng/dL (09/17/23 10:40 AM) TSH [0.358-3.740 mcIntlUnit/mL] 5.059 mc IntlUnit/mL *HI* (09/17/23 10:40 AM) Social History Social History Type Response Tobacco Never tobacco user T obacco Use:. Sex Female Patient Care team information Care Team Personnel Name: Campos Lopes MD Position: No Access Member Role: Informed Provider Address: Address: [address] [place] [phone] [place] Care Team Related Persons Name: JESUS RAMSEY
--- OUTSIDE RECORDS SUMMARY | 2024-10-09 11:16 | XMS_ITS | Continuity of Care Document ---
Author Organization [facility] Address [address] [place] [address] Care Team Providers Care Complex Care Nurse Name Role Phone Rosario Bahena Primary Care Physician Encounter [facility] Date(s): 08/20/24 - 08/20/[address] [address] Discharge Disposition: Home or Self Care Attending [...] Results Laboratory List Name Date Urinalysis Microscopic 08/20/24 Urinalysis with Micro if Indicated and C ulture if Indicated 08/20/24 Most recent to oldest [Reference Range]: 1 UA Color Yellow (08/20/24 12:48 PM) UA WBC [0-3] 0-3 (08/20/24 12:48 PM) UA Urobilinogen Normal (08/20/24 12:48 PM) UA Bili [Negative] 1+ *ABN* (08/20/24 12:48 PM) UA Ketones Negative (08/20/24 12:48 PM) UA Ca Ox Crystal Few /HPF (08/20/24 12:48 PM) UA RBC [0-2] 0-2 (08/20/24 12:48 PM) UA Leuk Est Negative (08/20/24 12:48 PM) UA Nitrite Negative (08/20/24 12:48 PM) UA Glucose [Negative] Negative (08/20/24 12:48 PM) UA Bacteria None Seen /HPF (08/20/24 12:48 PM) UA Protein Negative (08/20/24 12:48 PM) UA Blood Negative (08/20/24 12:48 PM) UA Mucous Rare /HPF 1 *ABN* (08/20/24 12:48 PM) UA Spec Grav 1.025 *NA* (08/20/24 12:48 PM) UA Squam Epithelial [None Seen] Rare (08/20/24 12:48 PM) UA pH 5.5 *NA* (08/20/24 12:48 PM) UA Appear Cloudy *ABN* (08/20/24 12:48 PM) UA Culture Ind?. Not Indicated (08/20/24 12:48 PM) UA Amorph Many /HPF (08/20/24 12:48 PM) 1Result Comment: manual entry error Social History Social History Type Response Tobacco Former tobacco user Tobacco Use:. Sex Female Sex Representation Female (finding) Patient Care team information Care Team Personnel Name: Rosario Bahena MD Position: No Access Member Role: Informed Provider Address: [address] [place] [address] Care Team Related Persons Name: JESUS RAMSEY Insurance Providers Guarantor name: TONA BAEZ Health Plan Information #: 2 Payer: [facility] MEDICAID Member Number: [id number] Policy Number: JESSE Health Plan Information #: 1 Payer: MEDICARE B [employer] Member Number: [id number] Policy Number: JESSE
--- OUTSIDE RECORDS SUMMARY | 2024-10-09 11:16 | XMS_ITS | Continuity of Care Document ---
Author Organization [facility] Address [address] [place] [address] Care Team Providers Care Linter Drier Operator Name Role Phone Campos Lopes Primary Care Physician Encounter [facility] [place] [id number] Date(s): 01/25/23 - 01/25/[address] [address] Discharge Disposition: Home or Self Care Attending [...] Completed Results Laboratory List Name Date Urinalysis with Microscopic 01/25/23 Urinalysis Microscopic 01/25/23 Most recent to oldest [Reference Range]: 1 UA Color Yellow (01/25/23 9:20 AM) UA WBC [0-3] 0-3 (01/25/23 9:20 AM) UA Urobilinogen Normal (01/25/23 9:20 AM) UA Bili [Negative] Negative (01/25/23 9:20 AM) UA Ketones Negative (01/25/23 9:20 AM) UA RBC [0-2] 0-2 (01/25/23 9:20 AM) UA Leuk Est Negative (01/25/23 9:20 AM) UA Nitrite Negative (01/25/23 9:20 AM) UA Glucose [Negative] Negative (01/25/23 9:20 AM) UA Bacteria None Seen /HPF (01/25/23 9:20 AM) UA Protein Negative (01/25/23 9:20 AM) UA Blood Trace *ABN* (01/25/23 9:20 AM) UA Mucous None Seen /HPF (01/25/23 9:20 AM) UA Spec Grav 1.015 *NA* (01/25/23 9:20 AM) UA Squam Epithelial [None Seen] None See n (01/25/23 9:20 AM) UA pH 6.0 *NA* (01/25/23 9:20 AM) UA Appear Clear (01/25/23 9:20 AM) UA Culture Ind?. Not Applicable (01/25/23 9:20 AM) Orders for Microbiology Reports Name Date Urine Culture 01/25/23 Microbiology Reports TEST:Urine Culture STATUS:Order in Progress BODY SITE: SOURCE:Urine, Clean Catch COLLECTED DATE/TIME:01/25/23 9:20 AM PRELIMINARY REPORT No growth at 24 hours. Social History Social History Type Response Tobacco Former tobacco user Tobacco Use:. Sex Female Patient Care team information Care Team Personnel Name: Campos Lopes MD Position: No Access Member Role: Informed Provider Address: Address: Internal Medicine [address] [place] [address] [place] [address] [place] Care Team Related Persons Name: JESUS RAMSEY
--- OUTSIDE RECORDS SUMMARY | 2024-10-09 11:16 | XMS_ITS | Continuity of Care Document ---
Author Organization [facility] Address [address] [place] [address] Care Team Providers Care Battery Installer Name Role Phone Rosario Bahena Primary Care Physician [phone] Encounter [facility] Date(s): 07/04/24 - 07/04/[address] [address] Discharge Disposition: Home or Self Care Attending Physician: Rosario Bahena MD Admitting Physician: Rosario Bahena MD Allergies, Adverse Reactions, [...] Results Laboratory List Name Date Urinalysis Microscopic 07/04/24 Urinalysis with Microscopic 07/04/24 Most recent to oldest [Reference Range]: 1 UA Color Yellow (07/04/24 12:42 PM) UA WBC [0-3] 0-3 (07/04/24 12:42 PM) UA Urobilinogen Normal (07/04/24 12:42 PM) UA Hyal Cast Rare /HPF (07/04/24 12:42 PM) UA Bili [Negative] Negative (07/04/24 12:42 PM) UA Ketones Negative (07/04/24 12:42 PM) UA RBC [0-2] 0-2 (07/04/24 12:42 PM) UA Leuk Est Negative (07/04/24 12:42 PM) UA Nitrite Negative (07/04/24 12:42 PM) UA Glucose [Negative] Negative (07/04/24 12:42 PM) UA Bacteria Rare /HPF (07/04/24 12:42 PM) UA Protein Negative (07/04/24 12:42 PM) UA Blood Trace *ABN* (07/04/24 12:42 PM) UA Mucous None Seen /HPF (07/04/24 12:42 PM) UA Spec Grav >=1.030 *NA* (07/04/24 12:42 PM) UA Squam Epithelial [None Seen] Few *ABN* (07/04/24 12:42 PM) UA pH 5.5 *NA* (07/04/24 12:42 PM) UA Appear Clear (07/04/24 12:42 PM) UA Culture Ind?. Not Applicable (07/04/24 12:42 PM) Orders for Microbiology Reports Name Date Urine Culture 07/04/24 Microbiology Reports TEST:Urine Culture STATUS:Order in Progress BODY SITE: SOURCE:Urine, Clean Catch COLLECTED DATE/TIME:07/04/24 12:42 PM PRELIMINARY REPORT No growth at 24 hours. Social History Social History Type Response Tobacco Former tobacco user Tobacco Use:. Sex Female Sex Representation Female (finding) Patient Care team information Care Team Personnel Name: Rosario Bahena MD Position: No Access Member Role: Informed Provider Address: [address] [place] [address] Care Team Related Persons Name: JESUS RAMSEY Insurance Providers Guarantor name: TONA BAEZ Health Plan Information #: [address] [facility] MEDICAID Member Number: [id number] Policy Number: NA Health Plan Information #: 1 Payer: MEDICARE B [employer] Member Number: [id number] Policy Number: NA
--- OUTSIDE RECORDS SUMMARY | 2024-10-09 11:16 | XMS_ITS | Continuity of Care Document ---
Author Organization [facility] Address [address] [place] [address] Care Team Providers Care Mill Roll Rewinder Name Role Phone Campos Lopes Primary Care Physician [phone] Encounter [facility] [id number] Date(s): 06/06/23 - 06/06/[address] [address] Discharge Disposition: Home or Self Care Attending [...] Results Laboratory List Name Date Urinalysis Microscopic 06/06/23 Urinalysis with Microscopic 06/06/23 Most recent to oldest [Reference Range]: 1 UA Color Yellow (06/06/23 3:59 PM) UA WBC [0-3] 3-5 *ABN* (06/06/23 3:59 PM) UA Urobilinogen Normal (06/06/23 3:59 PM) UA Bili [Negative] Negative (06/06/23 3:59 PM) UA Ketones Negative (06/06/23 3:59 PM) UA Ca Ox Crystal Rare /HPF (06/06/23 3:59 PM) UA RBC [0-2] 0-2 (06/06/23 3:59 PM) UA Leuk Est Negative (06/06/23 3:59 PM) UA Nitrite Negative (06/06/23 3:59 PM) UA Glucose [Negative] Negative (06/06/23 3:59 PM) UA Bacteria Rare /HPF (06/06/23 3:59 PM) UA Protein Negative (06/06/23 3:59 PM) UA Blood Negative (06/06/23 3:59 PM) UA Mucous Rare /HPF *ABN* (06/06/23 3:59 PM) UA Spec Grav >=1.030 *NA* (06/06/23 3:59 PM) UA Squam Epithelial [None Seen] Rare (06/06/23 3:59 PM) UA pH 5.5 *NA* (06/06/23 3:59 PM) UA Appear Clear (06/06/23 3:59 PM) UA Culture Ind?. Not Applicable (06/06/23 3:59 PM) Orders for Microbiology Reports Name Date Urine Culture 06/06/23 Microbiology Reports TEST:Urine Culture STATUS:Order in Progress BODY SITE: SOURCE:Urine, Clean Catch COLLECTED DATE/TIME:06/06/23 3:59 PM PRELIMINARY REPORT No growth at 24 hours. Social History Social History Type Response Tobacco Never tobacco user T obacco Use:. Sex Female Patient Care team information Care Team Personnel Name: Campos Lopes MD Position: No Access Member Role: Informed Provider Address: Address: [address] [place] [id number] Care Team Related Persons Name: JESUS RAMSEY
--- OUTSIDE RECORDS SUMMARY | 2024-10-09 11:16 | XMS_ITS | Continuity of Care Document ---
Author Organization [facility] Address [address] [place] [address] Care Team Providers Care Non Destructive Tester Name Role Phone Campos Lopes Primary Care Physician Encounter [facility] [id number] Date(s): 03/03/24 - 03/03/24 [facility] [address] [place] [address] Encounter Diagnosis Cough(Discharge Diagnosis) - 03/03/24 Lower respiratory infection(Discharge Diagnosis) - 03/03/24 Pulmonary edema(Discharge Diagnosis) - 03/03/24 Discharge Disposition: Home or Self Care Attending Physician: Sunday Bynum MD Admitting Physician: Sunday Bynum MD Allergies, Adverse Reactions, [...] Plan Extracted from: Title:Clinical Document Author:Pratima Almaguer te:03/03/24 Diagnosis: 1. Cough Comment: Diagnosis: 2. Lower respiratory infection Comment: Diagnosis: 3. Pulmonary edema Comment: Diagnosis: Cough Comment: Extracted from: Title:ED Provider Note Author:Sunday Bynum MD Date:03/03/24 Assessment/Plan 1.??Cough??R05.9 Ordered: amoxicillin-clavulanate 875 mg-125 mg oral tablet, 1 tab, Oral, every 12 hr, X 7 days, # 14 tab, 0 Refill(s), 06/01/24 10:12:00 EDT, Pharmacy: [facility] #[id number], 167, cm, 04/27/23 16:42:00 EDT, Height/Length Dosing, 83, kg, 04/27/23 16:42:00 EDT, Weight Dosing Probiotic Formula (Bacillus Coagulans) oral capsule, 1 cap, Oral, Daily, X 14 days, # 14 cap, 0 Refill(s), 03/17/24 10:12:00 EDT, Pharmacy: [facility] #[id number], 167, cm, 04/27/23 16:42:00 EDT, Height/Length Dosing, 83, kg, 04/27/23 16:42:00 EDT, Weight Dosing benzonatate 200 mg oral capsule, 200 mg = 1 cap, Oral, TID, PRN as needed for cough, # 30 cap, 0 Refill(s), 03/13/24 10:13:00 EDT, Pharmacy: [facility] #[id number], 167, cm, 04/27/23 16:42:00 EDT, Height/Length Dosing, 83, kg, 04/27/23 16:42:00 EDT, Weight Dosing codeine-guaifenesin 7.5 mg-225 mg/5 mL oral liquid, 2.5 mL, Oral, every 4 hr, PRN as needed for cough, # 60 mL, 0 Refill(s), 03/18/24 10:14:00 EDT ipratropium-albuterol 0.5 mg-2.5 mg/3 mL inhalation solution, 3 mL, Nebulized Inhalation, QID, # 60 EA, 0 Refill(s), 03/14/24 10:13:00 EDT, Pharmacy: [facility] #[id number], 167, cm, 04/27/23 16:42:00 EDT, Height/Length Dosing, 83, kg, 04/27/23 16:42:00 EDT, Weight Dosing ?? 2.??Lower respiratory infection??J22 ?? 3.??Pulmonary edema??J81.1 ?? Patient Education Cough, Adult Follow Up With When Contact Information Campos Lopes MD Within 1 to 2 weeks [address] [place] [id number] ?? Additional Instructions: Functional Status 03/03/24 Family Member Travel History No recent t ravel Recent Travel History No recent travel Other exposure to Infectious Disease Non e Immunizations Given and Recorded Vaccine Date Status Refusal Reason influenza virus vaccine, live 07/10/19 Recorded influenza virus vaccine, live 07/31/18 Recorded pneumococcal 13-valent conjugate vaccine 06/10/15 Recorded pneumococcal 23-polyvalent vaccine 11/15/07 Record ed Medications amoxicillin-clavulanate 875 mg-125 mg oral tablet 1 tab, Oral, every 12 hr, X 7 days, # 14 tab, 0 Refill(s), 03/10/24 9:12:00 AM CDT, Pharmacy: [facility] #[id number], 167, cm, 04/27/23 16:42:00 EDT, Height/Length Dosing, 83, kg, 04/27/23 16:42:00 EDT, Weight Dosing Start Date: 03/03/24 Stop Date: 03/10/24 Status: Ordered atenolol 0 Refill(s) Start Date: 03/17/22 Status: Ordered benzonatate 200 mg oral capsule 200 mg = 1 cap, Oral, TID, PRN as needed for cough, # 30 cap, 0 Refill(s), 03/13/24 9:13:00 AM CDT, Pharmacy: [facility] #[id number], 167, cm, 04/27/23 16:42:00 EDT, Height/Length Dosing, 83, kg, 04/27/23 16:42:00 EDT, Weight Dosing Start Date: 03/03/24 Stop Date: 03/13/24 Status: Ordered codeine-guaifenesin 7.5 mg-225 mg/5 mL oral liquid 2.5 mL, Oral, every 4 hr, PRN as needed for cough, # 60 mL, 0 Refill(s), 03/18/24 9:14:00 AM CDT Start Date: 03/03/24 Stop Date: 03/18/24 Status: Ordered ipratropium-albuterol 0.5 mg-2.5 mg/3 mL inhalation solution 3 mL, Nebulized Inhalation, QID, # 60 EA, 0 Refill(s), 03/14/24 9:13:00 AM CDT, Pharmacy: [facility] #[id number], 167, cm, 04/27/23 16:42:00 EDT, Height/Length Dosing, 83, kg, 04/27/23 16:42:00 EDT, Weight Dosing Start Date: 03/03/24 Stop Date: 03/14/24 Status: Ordered Medrol 4 mg oral tablet 1 packets, Oral, Daily, as directed Start Date: 04/13/22 Status: Ordered omeprazole 0 Refill(s) Start Date: 03/17/22 Status: Ordered Probiotic Formula (Bacillus Coagulans) oral capsule 1 cap, Oral, Daily, X 14 days, # 14 cap, 0 Refill(s), 03/17/24 9:12:00 AM CDT, Pharmacy: [facility] #[id number], 167, cm, 04/27/23 16:42:00 EDT, Height/Length Dosing, 83, kg, 04/27/23 16:42:00 EDT, Weight Dosing Start Date: 03/03/24 Stop Date: 03/17/24 Status: Ordered Mental Status 03/03/24 Eye Opening Response [place] Spontaneous ly Best Verbal Response [place] Oriented Best Motor Response [place] Obeys comman ds [place] Coma Score 15 Problem List Condition Confirmation [...] 12/12/17 Completed Results Laboratory List Name Date Blood Gas Venous 03/03/24 CBC w/ Diff 03/03/24 Comprehensive Metabolic Panel (CMP) 03/03 NT- Pro BNP 03/03/24 Troponin-I 03/03/24 Respiratory Panel 2.1 (Bio[employer]) 03/03/24 Automated Diff 03/03/24 Most recent to oldest [Reference Range]: 1 WBC [5.0-10.0 x10^3/mcL] 8.5 x10^3/mcL (03/03/24 7:59 AM) RBC [4.1-5.3 x10^6/mcL] 4.8 x10^6/mcL (03/03/24 7:59 AM) Neutro Auto [40.0-75.0 %] 76.0 % *HI* (03/03/24 7:59 AM) Lymph Auto [20.0-50.0 %] 13.7 % *LOW* (03/03/24 7:59 AM) [place] Auto [2.0-15.0 %] 6.4 % (03/03/24 7:59 AM) Basophil Auto [0.0-1.0 %] 0.6 % (03/03/24 7:59 AM) BUN [7-18 mg/dL] 12 mg/dL (03/03/24 7:59 AM) Glucose Level [74-106 mg/dL] 117 mg/dL *HI* (03/03/24 7:59 AM) Potassium Level [3.5-5.1 mmol/L] 3.9 mmo l/L (03/03/24 7:59 AM) MCV [80.0-96.0 fL] 90.6 fL (03/03/24 7:59 AM) CO2 Total Venous 30 mmol/L *NA* (03/03/24 7:59 AM) HCO3 Venous [22-30 mmol/L] 29 mmol/L (03/03/24 7:59 AM) AST [15-37 unit/L] 21 unit/L (03/03/24 7:59 AM) ALT [14-59 unit/L] 28 unit/L (03/03/24 7:59 AM) MCHC [31.0-35.0 g/dL] 31.9 g/dL (03/03/24 7:59 AM) Troponin-I [0.0-51.4 pg/mL] 9.4 pg/mL (03/03/24 7:59 AM) Sodium Level [136-145 mmol/L] 140 mmol/L (03/03/24 7:59 AM) Hct [37.0-47.0 %] 43.6 % (03/03/24 7:59 AM) Calcium Level [8.5-10.1 mg/dL] 8.6 mg/dL (03/03/24 7:59 AM) Albumin Level [3.4-5.0 g/dL] 3.6 g/dL (03/03/24 7:59 AM) Protein Total [6.4-8.2 g/dL] 6.8 g/dL (03/03/24 7:59 AM) MCH [26.0-32.0 pg] 28.9 pg (03/03/24 7:59 AM) Neutro Absolute 6.5 x10^3/mcL *NA* (03/03/24 7:59 AM) Bilirubin Total [0.2-1.0 mg/dL] 0.6 mg/d L (03/03/24 7:59 AM) Hgb [12.0-16.0 g/dL] 13.9 g/dL (03/03/24 7:59 AM) Alk Phos [46-146 unit/L] 62 unit/L (03/03/24 7:59 AM) pCO2 Richard [33-47 mmHg] 45 mmHg (03/03/24 7:59 AM) Platelets [130-450 x10^3/mcL] 242 x10^3/ mcL (03/03/24 7:59 AM) CO2 [21-32 mmol/L] 28 mmol/L (03/03/24 7:59 AM) pO2 Richard 43 mmHg *NA* (03/03/24 7:59 AM) pH Richard [7.32-7.43 pH unit(s)] 7.42 pH un it(s) (03/03/24 7:59 AM) O2 Sat Richard 82 % *NA* (03/03/24 7:59 AM) eGFR Non-AA [>=60] 70 (03/03/24 7:59 AM) eGFR AA [>=60] 70 (03/03/24 7:59 AM) Base Excess Venous 3.6 mmol/L *NA* (03/03/24 7:59 AM) NT-proBNP [0-450 pg/mL] 400 pg/mL (03/03/24 7:59 AM) Chloride Level [98-107 mmol/L] 102 mmol/ L (03/03/24 7:59 AM) RDW-CV [11.5-14.5 %] 12.5 % (03/03/24 7:59 AM) Adenovirus RespP-BFire [Not Detected] No t Detected (03/03/24 7:53 AM) Bordetella parapertussis RespP-BFire [No t Detected] Not Detected (03/03/24 7:53 AM) Bordetella pertussis RespP-BFire [Not De tected] Not Detected (03/03/24 7:53 AM) Chlamydophila pneumoniae RespP-BFire [No t Detected] Not Detected (03/03/24 7:53 AM) Coronavirus 229E (Not COVID-19) RP-BFire [Not Detected] Not Detected (03/03/24 7:53 AM) Coronavirus HKU1 (Not COVID-19) RP-BFire [Not Detected] Not Detected (03/03/24 7:53 AM) Coronavirus NL63 (Not COVID-19) RP-BFire [Not Detected] Not Detected (03/03/24 7:53 AM) Coronavirus OC43 (Not COVID-19) RP-BFire [Not Detected] Not Detected (03/03/24 7:53 AM) Human Metapneumonovirus RespP-BFire [Not Detected] Not Detected (03/03/24 7:53 AM) Human Rhinovirus/Enterovirus RespP-BFir [Not Detected] Not Detected (03/03/24 7:53 AM) Influenza A RespP-BFire [Not Detected] N ot Detected (03/03/24 7:53 AM) Influenza B RespP-BFire [Not Detected] N ot Detected (03/03/24 7:53 AM) Mycomplasma pneumoniae RespP-BFire [Not Detected] Not Detected (03/03/24 7:53 AM) Parainfluenza Virus 1 RespP-BFire [Not D etected] Not Detected (03/03/24 7:53 AM) Parainfluenza Virus 2 RespP-BFire [Not D etected] Not Detected (03/03/24 7:53 AM) Parainfluenza Virus 3 RespP-BFire [Not D etected] Not Detected (03/03/24 7:53 AM) Parainfluenza Virus 4 RespP-BFire [Not D etected] Not Detected (03/03/24 7:53 AM) Respiratory Syncytial Virus RespP-BFire [Not Detected] Not Detected (03/03/24 7:53 AM) Imm Gran Auto [0.0-0.9 %] 0.7 % (03/03/24 7:59 AM) Creatinine Level [0.55-1.02 mg/dL] 0.83 mg/dL (03/03/24 7:59 AM) SARS-CoV-2 (COVID-19) RP-BFire [Not Dete cted] Not Detected 1 (03/03/24 7:53 AM) Eos, Auto [1.0-6.0 %] 2.6 % (03/03/24 7:59 AM) 1Interpretive Data: Testing is not recommended outside of the respiratory virus season (February 07 ??? Jul 09) due to low specificity. Vital Signs Most recent to oldest [Reference Range]: 1 Temperature Temporal Artery [36-38 Deg C ] 37.0 Deg C (03/03/24 7:30 AM) Peripheral Pulse Rate [60-100 bpm] 90 bp m (03/03/24 7:30 AM) Respiratory Rate [12-24 br/min] 18 br/mi n (03/03/24 7:30 AM) Blood Pressure [90-140/60-90 mmHg] 190/9 2mmHg *HI* (03/03/24 7:30 AM) Mean Arterial Pressure, Cuff [65-140 mmH g] 125 mmHg (03/03/24 7:30 AM) Weight Estimated 89.9 kg (03/03/24 7:30 AM) Body Mass Index Estimated 32.23 kg/m2 (03/03/24 7:30 AM) Height/Length Estimated 167 cm (03/03/24 7:30 AM) Social History Social History Type Response Tobacco Former tobacco user Tobacco Use:. Sex Female Hospital Discharge Instructions Patient Education 03/03/2024 09:15:14 Cough, Adult Cough, Adult Coughing is a reflex that clears your throat and your airways (respiratory system). Coughing helps to heal and protect your lungs. It is normal to cough occasionally, but a cough that happens with other symptoms or lasts a long time may be a sign of a condition that needs treatment. An acute cough may only last 2???3 weeks, while a chronic cough may last 8 or more weeks. Coughing is commonly caused by: ??? Infection of the respiratory systemby viruses or bacteria. ??? Breathing in substances that irritate your lungs. ??? Allergies. ??? Asthma. ??? Mucus that runs down the back of your throat (postnasal drip). ??? Smoking. ??? Acid backing up from the stomach into the esophagus (gastroesophageal reflux). ??? Certain medicines. ??? Chronic lung problems. ??? Other medical conditions such as heart failure or a blood clot in the lung (pulmonary embolism). Follow these instructions at home: Medicines ??? Take qrlt-[id number]-xzjhmsf and prescription medicines only as told by your health care provider. ??? Talk with your health care provider before you take a cough suppressant medicine. Lifestyle ??? Avoid cigarette smoke. Do not use any products that contain nicotine or tobacco, such as cigarettes, e-cigarettes, and chewing tobacco. If you need help quitting, ask your health care provider. ??? Drink enough fluid to keep your urine pale yellow. ??? Avoid caffeine. ??? Do not drink alcohol if your health care provider tells you not to drink. General instructions ??? Pay close attention to changes in your cough. Tell your health care provider about them. ??? Always cover your mouth when you cough. ??? Avoid things that make you cough, such as perfume, candles, cleaning products, or campfire or tobacco smoke. ??? If the air is dry, use a cool mist vaporizer or humidifier in your bedroom or your home to helploosen secretions. ??? If your cough is worse at night, try to sleep in a semi-upright position. ??? Rest as needed. ??? Keep all follow-up visits as told by your health care provider. This is important. Contact a health care provider if you: ??? Have new symptoms. ??? Cough up pus. ??? Have a cough that does not get better after 2???3 weeks or gets worse. ??? Cannot control your cough with cough suppressant medicines and you are losing sleep. ??? Have pain that gets worse or pain that is not helped with medicine. ??? Have a fever. ??? Have unexplained weight loss. ??? Have night sweats. Get help right away if: ??? You cough up blood. ??? You have difficulty breathing. ??? Your heartbeat is very fast. These symptoms may represent a serious problem that is an emergency. Do not wait to see if the symptoms will go away. Get medical help right away. Call your local emergency services (911 in the [place] Do not drive yourself to the hospital. Summary ??? Coughing is a reflex that clears your throat and your airways. It is normal to cough occasionally, but a cough that happens with other symptoms or lasts a long time may be a sign of a condition that needs treatment. ??? Take azyq-kya-ziappvx and prescription medicines only as told by your health care provider. ??? Always cover your mouth when you cough. ??? Contact a health care provider if you have new symptoms or a cough that does not get better after 2???3 weeks or gets worse. This information is not intended to replace advice given to you by your health care provider. Make sure you discuss any questions you have with your health care provider. Document Revised: 03/01/2023 Document Reviewed: 10/15/2019 [employer] Patient Education ?? 2022 [employer]. Follow Up Care 03/03/2024 07:25:10 With:Campos Lopes MD Address: [address] [place] [phone] When:1 to 2 weeks Physician Emergency department Note * Sunday Bynum MD: PERFORM Event Display: ED Note Physician Authored Date: [id number] TONA BAEZ :1940 Age:84 years Sex:Female Visit Date:03/03/2024 Primary Care Physician: Campos Lopes MD Basic Information Time Seen: Sunday Bynum MD / 03/03/2024 07:26 Chief Complaint I have been coughing for over four weeks now and i'm not getting any better. I was placed on a z pack by my pulomonologist and i'm just not any better. I think I need another neb treatement to see if that would help. PT talking in full sentences appears History Of Present Illness: 84-year-old female past medical history interstitial cystitis, COPD, reflux, hypertension??presentswith 3 weeks of a cough, mostly nonproductive??at this point in time,??worse with lying down with associated dyspnea with exertion??and wheezing. ??She feels like there is??mucus in her lungs??has already been on inhalers,??multiple medications for her cough, azithromycin still as her symptoms.?? No chest pain with this, no??abdominal pain nausea vomiting. ??No history of DVT or PE leg swelling??erythema or pain in the lower extremities, history of cancer, recent surgeries or travel. ??Denies any cardiac history. Review of Systems: Cough, dyspnea Physical Exam Vitals & Measurements T:??37.0?C ??(Temporal Artery)?? HR:??90??(Peripheral)?? RR:??18?? BP:??190/92?? SpO2:??95%?? HT:??167??cm?? WT:??89.9??kg??(Estimated)?? BMI:??32.23?? O2 Therapy:??Room air?? General: Alert and oriented, well nourished,?No??acute distress Eye: PERRL, EOMI,?Normal?conjunctiva HENT: Normocephalic Lungs: occasional respiratory crackle and wheeze,?Non-labored?? respiration Heart:?Normal? rate,?Regular??rhythm Abdomen: Soft, non-tender, non-distended Skin: Skin is warm, dry and pink,?No??rashes,?No??lesions Psychiatric: Cooperative, appropriate mood and affect Medical Decision Makin-year-old female medical history as above presents with??3 weeks of a productive cough after being on azithromycin inhalers and??antitussive medications, was also seen in the ER on the 10th??and isstill having symptoms.?? She is not in any acute respiratory distress clinically.?? 37, 190/92, 90,18, 95%.?? Her labs are reassuring and that there is no??leukocytosis, her hemoglobin is normal, her??VBG is normal, the rest of her labs including troponin and BNP are normal.?? Bio fire??is negative, and flu COVID RSV??during??last ER visit was negative.?? She received a DuoNeb here per her request, not for any respiratory distress per se, she stated some subjective improvement with this, and was given DuoNeb refill prescription as needed at home.?? Her x-ray??did not show any acute infectious process, I did note pulmonary edema. ??I did a bedside ultrasound, did not show??any significant??g lobal reduction in left ventricular function, however the cardiac windows were a bit difficult to obtain.?? I did order an echocardiogram as an outpatient in case her coughing and dyspnea is more cardiac related especially given??the edema noted on the x-ray. ??She has no other clinical exams of??extremity edema.?? She can follow-up with echocardiogram results as an outpatient??with her primary care physician.?She may also be dealing with a lingering viral infection??not picked up on any of the swabs??done over the last couple of weeks,??however patient specifically mentions??concern for bacterial infection/pneumonia. ??We discussed that??this is less likely given the overall labs and imaging, however her symptoms are persistent and??we did settle upon trialing??Augmentin to see if this would help her overall??symptoms.?? She was given a probiotic to take with this as well.?? Clinically she is not??in any distress, is appropriate for outpatient management and can follow-up with her primary care??to see how her symptoms are progressing.?She has no risk factors for PE, wells is zero. Doubt ACS given normal troponin and EKG. ??Discharged stable condition??with PCP follow-up. Procedure No Qualifying Data Assessment/Plan 1.??Cough??R05.9 Ordered: amoxicillin-clavulanate 875 mg-125 mg oral tablet, 1 tab, Oral, every 12 hr, X 7 days, # 14 tab, 0 Refill(s), 03/10/24 10:12:00 EDT, Pharmacy: [facility] #[id number], 167, cm, 04/27/23 16:42:00 EDT, Height/Length Dosing, 83, kg, 04/27/23 16:42:00 EDT, Weight Dosing Probiotic Formula (Bacillus Coagulans) oral capsule, 1 cap, Oral, Daily, X 14 days, # 14 cap, 0 Refill(s), 03/17/24 10:12:00 EDT, Pharmacy: [facility] #[id number], 167, cm, 04/27/23 16:42:00 EDT, Height/Length Dosing, 83, kg, 04/27/23 16:42:00 EDT, Weight Dosing benzonatate 200 mg oral capsule, 200 mg = 1 cap, Oral, TID, PRN as needed for cough, # 30 cap, 0 Refill(s), 03/13/24 10:13:00 EDT, Pharmacy: [facility] #[id number], 167, cm, 04/27/23 16:42:00 EDT, Height/Length Dosing, 83, kg, 04/27/23 16:42:00 EDT, Weight Dosing codeine-guaifenesin 7.5 mg-225 mg/5 mL oral liquid, 2.5 mL, Oral, every 4 hr, PRN as needed for cough, # 60 mL, 0 Refill(s), 03/18/24 10:14:00 EDT ipratropium-albuterol 0.5 mg-2.5 mg/3 mL inhalation solution, 3 mL, Nebulized Inhalation, QID, # 60EA, 0 Refill(s), 03/14/24 10:13:00 EDT, Pharmacy: [facility] #[id number], 167, cm, 04/27/23 16:42:00 EDT, Height/Length Dosing, 83, kg, 04/27/23 16:42:00 EDT, Weight Dosing ?? 2.??Lower respiratory infection??J22 ?? 3.??Pulmonary edema??J81.1 ?? Patient Education Cough, Adult Follow Up With When Contact Information Campos Lopes MD Within 1 to 2 weeks [address] [place] [id number] Additional Instructions: Medication Reconciliation New Prescription amoxicillin-clavulanate (amoxicillin-clavulanate 875 mg-125 mg oral tablet)1 tab Oral (given by mouth) every 12 hours for 7 Days. Refills: 0. ?? bacillus coagulans-inulin (Probiotic Formula (Bacillus Coagulans) oral capsule)1 Capsules Oral (given by mouth) every day for 14 Days. Refills: 0. ?? benzonatate (benzonatate 200 mg oral capsule)1 Capsules Oral (given by mouth) 3 times a day as needed as needed for cough. Refills: 0. ?? codeine-guaifenesin (codeine-guaifenesin 7.5 mg-225 mg/5 mL oral liquid)2.5 [place]ilit[place] Oral (givenby mouth) every 4 hours as needed as needed for cough. Refills: 0. ?? ipratropium-albuterol (ipratropium-albuterol 0.5 mg-2.5 mg/3 mL inhalation solution)3 [place]ilit[place] Nebulized inhalation (inhale using nebulizer) 4 times a day. Refills: 0. ?? Unchanged atenolol ?? methylPREDNISolone (Medrol 4 mg [...] Never Tobacco Former tobacco user Tobacco Use:. Lab Results CBC and Differential?? LATEST RESULTS?? HISTORICAL RESULTS?? WBC?? 03/03/24 07:59?? 8.5?? 02/17/24?? 7.9?? RBC?? 03/03/24 07:59?? 4.8?? 02/17/24?? 5.2?? Hgb?? 03/03/24 07:59?? 13.9?? 02/17/24?? 15.1?? Hct?? 03/03/24 07:59?? 43.6?? 02/17/24?? 45.8?? MCV?? 03/03/24 07:59?? 90.6?? 02/17/24?? 88.8?? MCH?? 03/03/24 07:59?? 28.9?? 02/17/24?? 29.3?? MCHC?? 03/03/24 07:59?? 31.9?? 02/17/24?? 33.0?? RDW-CV?? 03/03/24 07:59?? 12.5?? 02/17/24?? 12.5?? Platelets?? 03/03/24 07:59?? 242?? 02/17/24?? 218?? Neutro Auto?? 03/03/24 07:59?? 76.0 ??High?? 02/17/24?? 68.5?? Lymph Auto?? 03/03/24 07:59?? 13.7 ??Low?? 02/17/24?? 19.1 ??Low?? [place] Auto?? 03/03/24 07:59?? 6.4?? 02/17/24?? 8.6?? Eos, Auto?? 03/03/24 07:59?? 2.6?? 02/17/24?? 2.7?? Basophil Auto?? 03/03/24 07:59?? 0.6?? 02/17/24?? 0.5?? Imm Gran Auto?? 03/03/24 07:59?? 0.7?? 02/17/24?? 0.6?? Neutro Absolute?? 03/03/24 07:59?? 6.5?? 02/17/24?? 5.4? Blood Gases?? LATEST RESULTS?? pH Richard?? 03/03/24 07:59?? 7.42?? pCO2 Richard?? 03/03/24 07:59?? 45?? pO2 [place]?? 03/03/24 07:59?? 43?? HCO3 Venous?? 03/03/24 07:59?? 29?? O2 Sat Richard?? 03/03/24 07:59?? 82?? CO2 Total Venous?? 03/03/24 07:59?? 30?? Base Excess Venous?? 03/03/24 07:59?? 3.6? Routine Chemistry?? LATEST RESULTS?? HISTORICAL RESULTS?? Sodium Level?? 03/03/24 07:59?? 140?? 02/17/24?? 139?? Potassium Level?? 03/03/24 07:59?? 3.9?? 02/17/24?? 4.0?? Chloride Level?? 03/03/24 07:59?? 102?? 02/17/24?? 102?? CO2?? 03/03/24 07:59?? 28?? 02/17/24?? 24?? Alk Phos?? 03/03/24 07:59?? 62?? 02/17/24?? 69?? AST?? 03/03/24 07:59?? 21?? 02/17/24?? 30?? ALT?? 03/03/24 07:59?? 28?? 02/17/24?? 22?? BUN?? 03/03/24 07:59?? 12?? 02/17/24?? 18?? Glucose Level?? 03/03/24 07:59?? 117 ??High?? 02/17/24?? 126 ??High?? Creatinine Level?? 03/03/24 07:59?? 0.83?? 02/17/24?? 0.75?? eGFR AA?? 03/03/24 07:59?? 70?? 02/17/24?? 79?? eGFR Non-AA?? 03/03/24 07:59?? 70?? 02/17/24?? 79?? Calcium Level?? 03/03/24 07:59?? 8.6?? 02/17/24?? 9.2?? Protein Total?? 03/03/24 07:59?? 6.8?? 02/17/24?? 7.3?? Albumin Level?? 03/03/24 07:59?? 3.6?? 02/17/24?? 3.8?? Bilirubin Total?? 03/03/24 07:59?? 0.6?? 02/17/24?? 0.4? Cardiac Isoenzymes?? LATEST RESULTS?? Troponin-I?? 03/03/24 07:59?? 9.4?? NT-proBNP?? 03/03/24 07:59?? 400? Infectious Disease?? LATEST RESULTS?? Adenovirus RespP-BFire?? 03/03/24 07:53?? Not Detected?? Bordetella parapertussis RespP-BFire?? 03/03/24 07:53?? Not Detected?? Bordetella pertussis RespP-BFire?? 03/03/24 07:53?? Not Detected?? Chlamydophila pneumoniae RespP-BFire?? 03/03/24 07:53?? Not Detected?? Coronavirus 229E (Not COVID-19) RP-BFire?? 03/03/24 07:53?? Not Detected?? Coronavirus HKU1 (Not COVID-19) RP-BFire?? 03/03/24 07:53?? Not Detected?? Coronavirus NL63 (Not COVID-19) RP-BFire?? 03/03/24 07:53?? Not Detected?? Coronavirus OC43 (Not COVID-19) RP-BFire?? 03/03/24 07:53?? Not Detected?? SARS-CoV-2 (COVID-19) RP-BFire?? 03/03/24 07:53?? Not Detected?? Human Metapneumonovirus RespP-BFire?? 03/03/24 07:53?? Not Detected?? Human Rhinovirus/Enterovirus RespP-BFir?? 03/03/24 07:53?? Not Detected?? Influenza A RespP-BFire?? 03/03/24 07:53?? Not Detected?? Influenza B RespP-BFire?? 03/03/24 07:53?? Not Detected?? Mycomplasma pneumoniae RespP-BFire?? 03/03/24 07:53?? Not Detected?? Parainfluenza Virus 1 RespP-BFire?? 03/03/24 07:53?? Not Detected?? Parainfluenza Virus 2 RespP-BFire?? 03/03/24 07:53?? Not Detected?? Parainfluenza Virus 3 RespP-BFire?? 03/03/24 07:53?? Not Detected?? Parainfluenza Virus 4 RespP-BFire?? 03/03/24 07:53?? Not Detected?? Respiratory Syncytial Virus RespP[facility]?? 03/03/24 07:53?? Not Detected? Electronically Signed on 03/03/2024 10:29 EDT Sunday Bynum MD Emergency department Discharge instructions * Sunday Bynum MD: PERFORM Event Display: ED Discharge Information Authored Date: [id number] TONA BAEZ :1940 Age:84 years Sex:Female Visit Date:03/03/2024 Primary Care Physician: Campos Lopes MD Discharge Instructions We would like to thank you for allowing us to assist you with your healthcare needs. The following includes patient education materials and information regarding your injury/illness. Diagnosis from Today's Visit Cough Discharge Vitals Temperature??(Temporal Artery) 98.6 ??F (37.0 ??C) Heart Rate??(Peripheral) 90 Respiratory Rate?? 18 Blood Pressure?? 190/92?? SpO2?? 95% Height?? 65.75 in (167 cm) Weight??(Estimated) 198.23 lb (89.9 kg) BMI?? 32.23 Allergies nitrofurantoin??(Bladder pain, ineffective for her infections, Other) trimethoprim??(hives, vaginal itching, tongue swelling, Skin rash) EPINEPHrine topical??(Rapid heart beat) mirabegron??(Other) No Known Medication Allergies SHELLFISH DERIVED iodine topical??(Urticaria) What to Do Next Instructions from Your Care Team You were seen in the emergency department today??for??cough, shortness of breath. ??Your x-ray and your labs were reassuring and that there was no obvious??infectious process noted and your viral panel was negative, however??after our discussion, we decided on trialing??an antibiotic??to see if this would help your overall symptoms in case there is a lingering bacterial process??in the respiratory tract contributing to your symptoms. ??You are also given a probiotic to take??while you are on the antibiotic??which should??theoretically help prevent antibiotic associated diarrhea.?? You are also given??codeine guaifenesin as well as Tessalon Perles for??your cough. ??DuoNebs were also prescribed??in case you needed them for wheezing or dyspnea.?? In the meantime, because your x-ray showed fluid on the lungs, an echocardiogram was ordered as an outpatient and??they should contact you to??set up an appointment for this, and please follow-up with the results with your primary care physician in the next 1 to 2 weeks. ??Come back to the ER with any worsening symptoms. You Need to Schedule the Following Appointments Follow Up with??Campos Lopes MD When:??Within 1 to 2 weeks Where: [address] [place] [phone] You were treated today on an emergency [...] Much When Why Instructions Next Dose New amoxicillin-clavulanate (amoxicillin-clavulanate 875 mg-125 mg oral tablet) 1 tab Oral (given by mouth) Every 12 hours Cough Duration: [address] [facility] Transit App [facility] #12145 New bacillus coagulans-inulin (Probiotic Formula (Bacillus Coagulans) oral capsule) 1 Capsules Oral (given by mouth) Every day Cough Duration: [address] [facility] Transit App [facility] #40580 New benzonatate (benzonatate 200 mg oral capsule) 1 Capsules Oral (given by mouth) 3 times a day as needed for as needed for cough Cough Pickup at [facility] #[id number] New codeine-guaifenesin (codeine-guaifenesin 7.5 mg-225 mg/ 5 mL oral liquid) 2.5 Milliliters Oral (given by mouth) Every 4 hours as needed for as needed for cough Cough Printed Prescription New ipratropium-albuterol (ipratropium-albuterol 0.5 mg-2.5 mg/ 3 mL inhalation solution) 3 Milliliters Nebulized inhalation (inhale using nebulizer) 4 times a day Cough Pickup at [facility] #[id number] Unchanged atenolol Unchanged methylPREDNISolone (Medrol 4 mg oral tablet) 1 packets Oral (given by mouth) Every day as directed ?? Unchanged omeprazole Pharmacy Information [facility] #[id number]: [address] [phone] Education Materials Cough, Adult Coughing is a reflex that clears your throat and your airways (respiratory system). Coughing helps to heal and protect your lungs. It is normal to cough occasionally, but a cough that happens with other symptoms or lasts a long time may be a sign of a condition that needs treatment. An acute cough may only last 2???3 weeks, while a chronic cough may last 8 or more weeks. Coughing is commonly caused by: ? Infection of the respiratory systemby viruses or bacteria. ? Breathing in substances that irritate your lungs. ? Allergies. ? Asthma. ? Mucus that runs down the back of your throat (postnasal drip). ? Smoking. ? Acid backing up from the stomach into the esophagus (gastroesophageal reflux). ? Certain medicines. ? Chronic lung problems. ? Other medical conditions such as heart failure or a blood clot in the lung (pulmonary embolism). Follow these instructions at home: Medicines ? Take dvjg-cdc-[id number] and prescription medicines only as told by your health care provider. ? Talk with your health care provider before you take a cough suppressant medicine. Lifestyle ? Avoid cigarette smoke. Do not use any products that contain nicotine or tobacco, such as cigarettes, e-cigarettes, and chewing tobacco. If you need help quitting, ask your health care provider. ? Drink enough fluid to keep your urine pale yellow. ? Avoid caffeine. ? Do not drink alcohol if your health care provider tells you not to drink. General instructions ? Pay close attention to changes in your cough. Tell your health care provider about them. ? Always cover your mouth when you cough. ? Avoid things that make you cough, such as perfume, candles, cleaning products, or campfire or tobacco smoke. ? If the air is dry, use a cool mist vaporizer or humidifier in your bedroom or your home to help loosen secretions. ? If your cough is worse at night, try to sleep in a semi-upright position. ? Rest as needed. ? Keep all follow-up visits as told by your health care provider. This is important. Contact a health care provider if you: ? Have new symptoms. ? Cough up pus. ? Have a cough that does not get better after 2???3 weeks or gets worse. ? Cannot control your cough with cough suppressant medicines and you are losing sleep. ? Have pain that gets worse or pain that is not helped with medicine. ? Have a fever. ? Have unexplained weight loss. ? Have night sweats. Get help right away if: ? You cough up blood. ? You have difficulty breathing. ? Your heartbeat is very fast. These symptoms may represent a serious problem that is an emergency. Do not wait to see if the symptoms will go away. Get medical help right away. Call your local emergency services (911 in the [place] Do not drive yourself to the hospital. Summary ? Coughing is a reflex that clears your throat and your airways. It is normal to cough occasionally, but a cough that happens with other symptoms or lasts a long time may be a sign of a condition that needs treatment. ? Take rbyg-ple-cobbblv and prescription medicines only as told by your health care provider. ? Always cover your mouth when you cough. ? Contact a health care provider if you have new symptoms or a cough that does not get better after 2???3 weeks or gets worse. This information is not intended to replace advice given to you by your health care provider. Make sure you discuss any questions you have with your health care provider. Document Revised: 03/01/2023 Document Reviewed: 10/15/2019 [employer] Patient Education ?? 2022 [employer] Tests Performed Medications and Immunizations Administered Given ipratropium-albuterol 0.5 mg-2.5 mg/3 mL inhalation solution, 3 mL, Inhale Lab Test Name Test Result Date/Time WBC 8.5 x10^3/mcL 03/03/2024 07:59 EDT RBC 4.8 x10^6/mcL 03/03/2024 07:59 EDT Hgb 13.9 g/dL 03/03/2024 07:59 EDT Hct 43.6 % 03/03/2024 07:59 EDT MCV 90.6 fL 03/03/2024 07:59 EDT MCH 28.9 pg 03/03/2024 07:59 EDT MCHC 31.9 g/dL 03/03/2024 07:59 EDT RDW-CV 12.5 % 03/03/2024 07:59 EDT Platelets 242 x10^3/mcL 03/03/2024 07:59 EDT Neutro Auto 76.0 % 03/03/2024 07:59 EDT Lymph Auto 13.7 % 03/03/2024 07:59 EDT [place] Auto 6.4 % 03/03/2024 07:59 EDT Eos, Auto 2.6 % 03/03/2024 07:59 EDT Basophil Auto 0.6 % 03/03/2024 07:59 EDT Imm Gran Auto 0.7 % 03/03/2024 07:59 EDT Neutro Absolute 6.5 x10^3/mcL 03/03/2024 07:59 EDT pH Richard 7.42 pH unit(s) 03/03/2024 07:59 EDT pCO2 Richard 45 mmHg 03/03/2024 07:59 EDT pO2 Richard 43 mmHg 03/03/2024 07:59 EDT HCO3 Venous 29 mmol/L 03/03/2024 07:59 EDT O2 Sat Richard 82 % 03/03/2024 07:59 EDT CO2 Total Venous 30 mmol/L 03/03/2024 07:59 EDT Base Excess Venous 3.6 mmol/L 03/03/2024 07:59 EDT Sodium Level 140 mmol/L 03/03/2024 07:59 EDT Potassium Level 3.9 mmol/L 03/03/2024 07:59 EDT Chloride Level 102 mmol/L 03/03/2024 07:59 EDT CO2 28 mmol/L 03/03/2024 07:59 EDT Alk Phos 62 unit/L 03/03/2024 07:59 EDT AST 21 unit/L 03/03/2024 07:59 EDT ALT 28 unit/L 03/03/2024 07:59 EDT BUN 12 mg/dL 03/03/2024 07:59 EDT Glucose Level 117 mg/dL 03/03/2024 07:59 EDT Creatinine Level 0.83 mg/dL 03/03/2024 07:59 EDT eGFR AA 70 03/03/2024 07:59 EDT eGFR Non-AA 70 03/03/2024 07:59 EDT Calcium Level 8.6 mg/dL 03/03/2024 07:59 EDT Protein Total 6.8 g/dL 03/03/2024 07:59 EDT Albumin Level 3.6 g/dL 03/03/2024 07:59 EDT Bilirubin Total 0.6 mg/dL 03/03/2024 07:59 EDT Troponin-I 9.4 pg/mL 03/03/2024 07:59 EDT NT-proBNP 400 pg/mL 03/03/2024 07:59 EDT Adenovirus RespP-BFire Not Detected BF 03/03/2024 07:53 EDT Bordetella parapertussis RespP-BFire Not Detected BF 03/03/2024 07:53 EDT Bordetella pertussis RespP-BFire Not Detected BF 03/03/2024 07:53 EDT Chlamydophila pneumoniae RespP-BFire Not Detected BF 03/03/2024 07:53 EDT Coronavirus 229E (Not COVID-19) RP-BFire Not Detected BF 03/03/2024 07:53 EDT Coronavirus HKU1 (Not COVID-19) RP-BFire Not Detected BF 03/03/2024 07:53 EDT Coronavirus NL63 (Not COVID-19) RP-BFire Not Detected BF 03/03/2024 07:53 EDT Coronavirus OC43 (Not COVID-19) RP-BFire Not Detected 03/03/2024 07:53 EDT SARS-CoV-2 (COVID-19) RP-BFire Not Detected BF 03/03/2024 07:53 EDT Human Metapneumonovirus RespP-BFire Not Detected 03/03/2024 07:53 EDT Human Rhinovirus/Enterovirus RespP-BFir Not Detected 03/03/2024 07:53 EDT Influenza A RespP-BFire Not Detected 03/03/2024 07:53 EDT Influenza B RespP-BFire Not Detected 03/03/2024 07:53 EDT Mycomplasma pneumoniae RespP-BFire Not Detected 03/03/2024 07:53 EDT Parainfluenza Virus 1 RespP-BFire Not Detected BF 03/03/2024 07:53 EDT Parainfluenza Virus 2 RespP-BFire Not Detected 03/03/2024 07:53 EDT Parainfluenza Virus 3 RespP-BFire Not Detected 03/03/2024 07:53 EDT Parainfluenza Virus 4 RespP-BFire Not Detected 03/03/2024 07:53 EDT Respiratory Syncytial Virus RespP-BFire Not Detected BF 03/03/2024 07:53 EDT Patient/Lei Maker Signature Patient Name:TONA BAEZ I have received this information and my questions have been answered. Patient/Lei Maker Name: Patient/Lei Maker Signature: Relationship to Patient: Witness Name/Signature: Date: Electronically Signed on: 03/03/2024 10:17 EDTSigned by:[facility] Emergency department Note * Pratima Almaguer: PERFORM Event Display: ED Notes Authored Date: Discharge summary * Pratima Almaguer: PERFORM Event Display: Discharge Note Authored Date: * Pratima Almaguer: PERFORM Event Display: Discharge Note Authored Date: Diagnosis: 1. Cough Comment: Diagnosis: 2. Lower respiratory infection Comment: Diagnosis: 3. Pulmonary edema Comment: Diagnosis: Cough Comment: Electronically Signed on 03/03/2024 10:32 EDT Pratima Almaguer Patient Care team information Care Team Personnel Name: Campos Lopes MD Position: No Access Member Role: Informed Provider Address: Address: [address] [place] [phone] [place] Care Team Related Persons Name: JESUS RAMSEY
--- OUTSIDE RECORDS SUMMARY | 2024-10-09 11:16 | XMS_ITS | Continuity of Care Document ---
Author Organization [facility] Address [address] [place] [address] Care Team Providers Care Diabetes Specialist Name Role Phone Campos Lopes Primary Care Physician Encounter [facility] Date(s): 03/10/23 - 03/10/[address] [phone] Discharge Disposition: Home or Self Care Attending [...] Results Laboratory List Name Date Urinalysis Microscopic 03/10/23 Urinalysis with Microscopic 03/10/23 Most recent to oldest [Reference Range]: 1 UA Color Yellow (03/10/23 9:52 AM) UA WBC [0-3] 0-3 (03/10/23 9:52 AM) UA Urobilinogen Normal (03/10/23 9:52 AM) UA Bili [Negative] Negative (03/10/23 9:52 AM) UA Ketones Negative (03/10/23 9:52 AM) UA RBC [0-2] 0-2 (03/10/23 9:52 AM) UA Leuk Est Negative (03/10/23 9:52 AM) UA Nitrite Negative (03/10/23 9:52 AM) UA Glucose [Negative] Negative (03/10/23 9:52 AM) UA Bacteria Rare /HPF (03/10/23 9:52 AM) UA Protein Negative (03/10/23 9:52 AM) UA Blood Trace *ABN* (03/10/23 9:52 AM) UA Mucous None Seen /HPF (03/10/23 9:52 AM) UA Spec Grav 1.025 *NA* (03/10/23 9:52 AM) UA Squam Epithelial [None Seen] None See n (03/10/23 9:52 AM) UA pH 5.0 *NA* (03/10/23 9:52 AM) UA Appear Clear (03/10/23 9:52 AM) UA Culture Ind?. Not Applicable (03/10/23 9:52 AM) Orders for Microbiology Reports Name Date Urine Culture 03/10/23 Microbiology Reports TEST:Urine Culture STATUS:Order in Progress BODY SITE: SOURCE:Urine, Clean Catch COLLECTED DATE/TIME:03/10/23 9:52 AM PRELIMINARY REPORT No growth at 24 hours. Social History Social History Type Response Tobacco Former tobacco user Tobacco Use:. Sex Female Patient Care team information Care Team Personnel Name: Campos Lopes MD Position: No Access Member Role: Informed Provider Address: Address: [address] [place] [phone] [place] Care Team Related Persons Name: JESUS RAMSEY Address: Home
--- OUTSIDE RECORDS SUMMARY | 2024-10-09 11:16 | XMS_ITS | Continuity of Care Document ---
Author Organization [facility] Address [address] [place] [address] Care Team Providers Care Pictures Editor Name Role Phone Rosario Bahena Primary Care Physician Encounter [facility] Date(s): 06/12/24 - 06/12/[address] [phone] Discharge Disposition: Home or Self Care Attending [...] Results Laboratory List Name Date Free T4 06/12/24 Thyroid Stimulating Hormone 06/12/24 Most recent to oldest [Reference Range]: 1 T4 Free [0.76-1.46 ng/dL] 0.85 ng/dL (06/12/24 8:30 AM) TSH [0.358-3.740 mcIntlUnit/mL] 3.944 mc IntlUnit/mL *HI* (06/12/24 8:30 AM) Social History Social History Type Response Tobacco Former tobacco user Tobacco Use:. Sex Female Sex Representation Female (finding) Patient Care team information Care Team Personnel Name: Rosario Bahena MD Position: No Access Member Role: Informed Provider Address: [address] [place] [address] Care Team Related Persons Name: JESUS RAMSEY Insurance Providers Guarantor name: TONA BAEZ Health Plan Information #: 1 Payer: [employer] Member Number: [id number] Policy Number: NA Health Plan Information #: 2 Payer: [facility] MEDICAID Member Number: [id number] Policy Number: NA
--- OUTSIDE RECORDS SUMMARY | 2024-10-09 11:17 | XMS_ITS | Data Portability ---
Author Organization [place] - [facility] Address Shani Sanabria [place] [place] [address] Care Team Providers Care Ski Maker Wood Name Role Phone DEEDEE MELENDEZ Dentist FIFI HU Primary Care Provider Assessment Encounter Date Assessment Date Assessment LastModified by Organization Details LastModified Time 06/21/2024 06/21/2024 This appointment was conducted via telephone. A total of 24 minutes was spent at this visit of which at least 50% (18 minutes) was spent in direct patient contact. Consent was given to conduct this encounter using appropriate technology. [email or web address] Not available 06/21/2024 14:44:03 08/22/2024 08/22/2024 The total time devoted to today's encounter, including both the lcxt-jx-fexk time with the patient and/or family/caregiv er and yqg-opst-ms-fa ce time I personally spent is 50 minutes. Not available 08/23/2024 13:19:25 Plan of Treatment Reminders Order Date Submit Date Provider Last Modified By Organization Details Last Modified Time Details Appointments Acute 20 2023 08:40A Arabella GONZALEZ Not available Not available Not available Lab None recorded. Referral general surgeon referral - for ABIs 2023 024 SALLY Wallace DO - Direct, [address] [facility], [place], [address], 08/01/2024 09:39:28 dermatolo gist referral - new ~8mm nodule on forehead erythemat ous, growing x 2 months, umbilicat ed, rebecca starr for BCC 2023 [email or web address] [facility], [address] [place], [address], 10/08/2024 15:34:05 Procedures None recorded. Surgeries None recorded. Imaging None recorded. Medication Orders sulfameth oxazole 400 mg-trimet hoprim [address] [id number], [address], [facility] [address], [place], [id number], 08/22/2024 15:19:27 sulfameth oxazole 800 mg-trimet hoprim 160 mg tablet 2023 024 [id number], [address], [facility], [place], [place], [id number], 08/22/2024 15:19:20 Patient TargetsNo targets recorded. Patient Instructions Encounter Date Encounter Id Patient Instructions Last Modified By Organization Details Last Modified Time 08/22/2024 [id number] Stop seltzer, no carbonated beverages Consider coffee aim for 40 ounce of water daily Not available 08/22/2024 15:25:09 Reason for Referral General Surgeon Referral for Intermittent claudication for ABIs Referring Physician: Jose Villatoro, Family Medicine, Encounter Date: 05/31/2024 Highway Design Engineer Referral for L esion of skin of face new ~8mm nodule on forehead erythematous, growing x 2 months, umbilicated, concerning for BCC Referring Physician: Fifi Hu, Internal Medicine, Encounter Date: 08/22/2024 Results Created Date Observation Date Name Description Value Unit Range Abnormal Flag Note LastModifiedBy Organization Detail LastModifiedTime 05/07/20 24 05/07/2024 XR, pelvi s, 1 or 2 view PROCED URE INFORM ATION: Exam: XR Pelvis Exam date and time: 11:21 AM Age: 84 years old Clinic al indica tion: Pain TECHNI QUE: Imagin g protoc ol: Radiol ogic exam of the pelvis . Views: 1 or 2 view. Total images : 1 COMPAR OMID: CT ABD/PE LVIS WO CONTRA ST 023 6:36 AM FINDIN GS: Bones/ joints : No eviden ce of acute fractu re or disloc ation. Degene rative change s of both hips. Soft tissue s: Soft tissue s are within normal limits . IMPRES SWETHA: 1. No eviden ce of acute fractu re or disloc ation. 2. Degene rative change s of both hips. Report signed by: Lowell Serna on On 2023 11:33: 27 [facility] [address], [place], [address], 05/08/2024 22:35:43 05/07/2005/07/2024 xr sacru m/nedra cyx 2+ views PROCED URE INFORM ATION: Exam: XR Sacrum and Coccyx , 2 or More Views Exam date and time: 024 11:51 AM Age: 84 years old Clinic al indica tion: Pain TECHNI QUE: Imagin g protoc ol: XR of the sacrum and coccyx , 2 or more views. Total images : 3 COMPAR OMID: DX XR SACRUM /COCCY X MIN 2V 019 3:14 PM FINDIN GS: Bones/ joints : Normal . No acute fractu re. Soft tissue s: Normal . IMPRES SWETHA: No acute findin gs. Report signed by: Lowell Serna on On 2023 12:01: 32 [facility] [address], [place], [address], 05/08/2024 22:35:43 06/25/20 24 09/19/2020 XR, chest No observ ation record ed. Not Available 06/25 16:50:49 06/25/20 24 03/31/2022 XR, shoul dominick No observ ation record ed. Not Available 06/25 16:50:52 06/25/20 24 10/23/2022 XR, chest No observ ation record ed. Not Available 06/25 16:50:52 06/25/20 24 06/13/2019 CT, chest , w/o contr ast No observ ation record ed. Not Available 06/25 16:51:02 06/25/20 24 06/18/2022 US, renal No observ ation record ed. Not Available 06/25 16:51:05 06/25/20 24 09/18/2020 XR, chest No observ ation record ed. Not Available 06/25 16:51:06 06/25/20 24 02/29/2020 imagi ng/di agnos tic resul t No observ ation record ed. Not Available 06/25 16:51:06 06/25/20 24 05/10/2023 imagi ng/di agnos tic resul t No observ ation record ed. Not Available 06/25 16:51:08 06/25/20 24 06/18/2022 imagi ng/di agnos tic resul t No observ ation record ed. Not Available 06/25 16:51:09 06/25/20 24 03/06/2020 imagi ng/di agnos tic resul t No observ ation record ed. Not Available 06/25 16:51:13 06/25/20 24 08/18/2022 imagi ng/di agnos tic resul t No observ ation record ed. Not Available 06/25 16:51:14 06/25/20 24 05/01/2019 bone densi ty No observ ation record ed. Not Available 06/25 16:51:15 06/25/20 24 08/01/2020 CT, abdom en + pelvi s No observ ation record ed. Not Available 06/25 16:51:15 06/25/20 24 11/16/2022 CT, chest No observ ation record ed. Not Available 06/25 16:51:20 06/25/20 24 03/19/2020 imagi ng/di agnos tic resul t No observ ation record ed. Not Available 06/25 16:51:30 06/25/20 24 10/25/2022 imagi ng/di agnos tic resul t No observ ation record ed. Not Available 06/25 16:52:05 06/25/20 24 11/19/2020 imagi ng/di agnos tic resul t No observ ation record ed. Not Available 06/25 16:54:02 06/25/20 24 03/02/2023 CT, abdom en + pelvi s, w/o contr ast No observ ation record ed. Not Available 06/25 16:54:06 06/25/20 24 04/06/2019 imagi ng/di agnos tic resul t No observ ation record ed. Not Available 06/25 16:54:08 06/25/20 24 07/13/2022 imagi ng/di agnos tic resul t No observ ation record ed. Not Available 06/25 16:54:09 06/25/20 24 08/01/2020 imagi ng/di agnos tic resul t No observ ation record ed. Not Available 06/25 16:54:13 06/25/20 24 08/10/2022 imagi ng/di agnos tic resul t No observ ation record ed. Not Available 06/25 16:54:14 06/25/20 24 11/17/2020 CT, angio gram, chest , w/wo contr ast No observ ation record ed. Not Available 06/25 16:54:17 06/25/20 24 04/06/2019 imagi ng/di agnos tic resul t No observ ation record ed. Not Available 06/25 16:54:31 06/25/20 24 04/23/2022 NM, bone scan, limit ed No observ ation record ed. Not Available 06/25 16:54:32 06/25/20 24 08/29/2019 US, head + neck, soft tissu e No observ ation record ed. Not Available 06/25 16:54:42 06/25/20 24 10/31/2020 US, echoc ardio gram No observ ation record ed. Not Available 06/25 16:54:44 06/25/20 24 07/13/2022 XR, spine No observ ation record ed. Not Available 06/25 16:54:45 06/25/20 24 11/16/2022 CT, chest , w/o contr ast No observ ation record ed. Not Available 06/25 16:54:46 06/25/20 24 09/18/2020 imagi ng/di agnos tic resul t No observ ation record ed. Not Available 06/25 16:54:48 06/25/20 24 11/03/2020 imagi ng/di agnos tic resul t No observ ation record ed. Not Available 06/25 16:54:50 06/25/20 24 03/17/2023 imagi ng/di agnos tic resul t No observ ation record ed. Not Available 06/25 16:55:26 Result Notes None recorded. 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 post surgical 2/2 thyroide ctomy for hyperthy roidism MD [address]rita [address], [place], [address] , [facility] 4 16:59:53 Pure hypercho lesterol emia 870918962 [facility] 4 17:04:43 Nonspeci fic tubercul in test reaction 352169261 Active [facility] 4 17:03:23 Chronic intersti tial cystitis 203017603 Active [facility] 4 17:02:40 Asthma 941317243 Completed 200111/10/2001 Problem Code: 493.9; Problem Code Type: ICD-9; Not Available [facility] 3 04:12:13 Disorder of lung 45152286 Completed 200111/10/2001 Problem Code: 518.89; Problem Code Type: ICD-9; Not Available [facility] 3 04:12:13 Vitamin D deficien 18735097 Completed 201102/20/2012 Not Available [facility] 3 04:12:13 Pain in right hand 44632298323 9109 Completed 201512/10/2015 Problem Code: M79.641; Problem Code Type: ICD-10; Not Available [facility] 3 04:12:13 Polyneur opathy 83394936 Active 2016 [facility] 4 17:04:35 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 [facility] 4 17:02:20 Astligia is dino 26938377 [facility] 4 17:02:24 Gastroes ophageal reflux disease without esophagi tis 858853986 Active 2018 [facility] 4 17:03:03 Screenin g for malignan t neoplasm of colon Active [facility] 4 17:04:47 Blephari tis 42215417 Completed 201908/22/2024 FIFI HU MD [address], [place], [address] , [facility] 4 16:50:15 Low back pain 057856014 Active 2019 [facility] 4 17:03:18 Chronic obstruct osman pulmonar y disease 94839791 Active 2020 FEV1/FVC 54% FIFI HU MD [address], [facility] [address] , [facility] 4 16:55:46 Chronic rhinitis 08411313 Active 2020 [facility] 4 17:02:49 Atrophic vaginiti s 34881099 Active 2021 [facility] 4 17:02:28 Diabetes mellitus screenin g Completed 202107/03/2022 Problem Code: Z13.1; Problem Code Type: ICD-10; Not Available [facility] 3 04:12:16 Pelvic and perineal pain 586076041 Active 2022 [facility], [facility] 4 17:04:31 Disorder of sacrum 47859169 Active 2022 [facility] 4 17:03:58 Tremor 35910812 Active 2022 [facility] 4 17:03:30 Hypocalc emia 0339234 Completed 202212/05/2023 Problem Code: E83.51; Problem Code Type: ICD-10; GO GALVEZ MD [address], [place], [address] , [facility] 4 10:19:55 Pain of left hip joint 91331152638 9100 Completed 202103/17/2023 Problem Code: M25.552; Problem Code Type: ICD-10; Not Available [facility] 3 04:12:17 Pain of right knee joint 47471099951 4100 Completed 201507/31/2018 Problem Code: M25.561; Problem Code Type: ICD-10; Not Available [facility] 3 04:12:17 Imaging result abnormal 431632422 Completed 201707/31/2018 Problem Code: R93.8; Problem Code Type: ICD-10; Not Available [facility] 3 04:12:17 Cystitis 01959910 Completed 201903/17/2023 Problem Code: N30.80; Problem Code Type: ICD-10; Not Available [facility] 3 04:12:18 Nerve root disorder 48033928 Completed 201901/26/2021 Problem Code: M54.10; Problem Code Type: ICD-10; Not Available [facility] 3 04:12:18 Atrial fibrilla tion 27285274 Completed 200107/06/2023 Problem Code: 427.31; Problem Code Type: ICD-9; Not Available [facility] 3 04:12:18 Pain of left shoulder joint 72909388126 412130 Completed Problem Code: M25.512; Problem Code Type: ICD-10; Not Available [facility] 3 04:12:18 Hypergly cemia 72881857 Completed 201609/22/2017 Problem Code: R73.9; Problem Code Type: ICD-10; Not Available [facility] 3 04:12:18 Traumati c or non-trau matic injury 316588624 Completed 201512/17/2016 Problem Code: T14.8; Problem Code Type: ICD-10; Not Available [facility] 3 04:12:18 Chronic obstruct osman airway disease with asthma 07318438564 03 Completed 201407/06/2023 Not Available [facility] 3 04:12:19 Hip pain 10405696 Completed 201807/31/2020 Problem Code: M25.559; Problem Code Type: ICD-10; Not Available [facility] 3 04:12:19 Thyrotox icosis 48854031 Completed 200107/06/2023 Problem Code: E05.80; Problem Code Type: ICD-10; Not Available [facility] 3 04:12:19 Mantoux: positive 495916742 Completed 200107/06/2023 Not Available [facility] 3 04:12:19 Uncompli cated mild persiste nt asthma 783201781 Completed 201401/26/2021 Problem Code: J45.30; Problem Code Type: ICD-10; Not Available [facility] 3 04:12:19 Paroxysm al atrial fibrilla tion 552545890 Completed 200101/26/2021 Problem Code: I48.0; Problem Code Type: ICD-10; Not Available [facility] 3 04:12:20 Bilatera l earache 908904408 Completed 202203/17/2023 Problem Code: H92.03; Problem Code Type: ICD-10; Not Available [facility] 3 04:12:20 Foreign body granulom a of skin 8497833 Completed 201703/17/2023 Not Available [facility] 3 04:12:20 Cough 41517880 Completed 201707/31/2018 Problem Code: R05; Problem Code Type: ICD-10; FIFI HU MD [address], [place], [address] , [facility]. 4 16:55:27 Chronic obstruct osman pulmonar y disease 78396916 Completed 201407/06/2023 Problem Code: J44.9; Problem Code Type: ICD-10; MD Amrita [address], [place], [address] , [facility] 4 16:55:46 Fracture of coccyx 246112598 Completed 201807/31/2020 Problem Code: S32.2xxG ; Problem Code Type: ICD-10; Not Available [facility] 3 04:12:21 Spasm 13874538 Completed 201803/17/2023 Problem Code: R25.2; Problem Code Type: ICD-10; Not Available [facility] 3 04:12:21 Paresthe lon 63854259 Completed 201711/22/2017 Problem Code: R20.2; Problem Code Type: ICD-10; Not Available [facility] 3 04:12:21 Fatigue 45827292 Completed 201901/26/2021 Problem Code: R53.83; Problem Code Type: ICD-10; Not Available [facility] 3 04:12:21 Dysphoni a 70677356 Completed 202103/17/2023 Problem Code: R49.0; Problem Code Type: ICD-10; Not Available [facility] 3 04:12:21 Right upper quadrant pain 748165720 Completed 201803/17/2023 Problem Code: R10.11; Problem Code Type: ICD-10; Not Available [facility] 3 04:12:22 Acute cystitis 64298797 Completed 202110/12/2022 Problem Code: N30.00; Problem Code Type: ICD-10; Not Available [facility] 3 04:12:22 Urethrit is 96148068 Completed 202203/17/2023 Problem Code: N34.2; Problem Code Type: ICD-10; MD Amrita [address], [place], [address] , [facility] 4 16:56:35 Localize d edema 909990598 Completed 201807/31/2020 Problem Code: R60.0; Problem Code Type: ICD-10; Not Available [facility] 3 04:12:22 Tick bite Completed 201406/24/2015 Not Available [facility] 3 04:12:23 Basal cell carcinom a of skin 095950894 Completed 201409/22/2017 Problem Code: C44.91; Problem Code Type: ICD-10; Not Available [facility] 3 04:12:23 Pain in thoracic spine 956597841 Completed 201907/31/2020 Problem Code: M54.9; Problem Code Type: ICD-10; Not Available [facility] 3 04:12:23 Abnormal gait 99221749 Completed 201607/31/2018 Problem Code: R26.89; Problem Code Type: ICD-10; Not Available [facility] 3 04:12:23 Allergic rhinitis caused by pollen 21032596 Completed 200107/06/2023 Problem Code: 477.0; Problem Code Type: ICD-9; Not Available [facility] 3 04:12:23 Pain of left hand 49614718267 9103 Completed 201502/14/2017 Problem Code: M79.642; Problem Code Type: ICD-10; Not Available [facility] 3 04:12:24 Bone density finding 669300672 Completed 201503/31/2018 Problem Code: M85.842; Problem Code Type: ICD-10; Not Available [facility] 3 04:12:24 Itching of skin 130783779 Completed 201907/31/2020 Problem Code: L29.9; Problem Code Type: ICD-10; Not Available [facility] 3 04:12:24 Solitary nodule of lung 232127959 Completed 201307/06/2023 Problem Code: 793.11; Problem Code Type: ICD-9; Not Available [facility] 3 04:12:24 Pre-surg acacia evaluati on Completed 202205/31/2023 Problem Code: Z01.818; Problem Code Type: ICD-10; Not Available [facility] 3 04:12:25 Drowsy 382253664 Completed 201603/17/2023 Problem Code: R40.0; Problem Code Type: ICD-10; Not Available [facility] 3 04:12:25 Swollen abdomen 28354750 Completed 202110/12/2022 Not Available [facility] 3 04:12:25 Pain in lower limb 60181254 Completed 201907/31/2020 Problem Code: M79.606; Problem Code Type: ICD-10; Not Available [facility] 3 04:12:25 Itching of skin 733275578 Completed 202203/17/2023 Problem Code: L29.8; Problem Code Type: ICD-10; Not Available [facility] 3 04:12:26 Urinary tract infectio us disease 01774878 Completed 202110/12/2022 Problem Code: N39.0; Problem Code Type: ICD-10; FIFI HU MD [address], [place], [address] , [facility]. 4 16:48:48 Disorder of skin and/or subcutan eous tissue 93655411 Completed 201402/14/2017 Problem Code: L98.9; Problem Code Type: ICD-10; Not Available [facility] 3 04:12:26 Pain of right wrist 81561121384 9100 Completed 201707/31/2018 Problem Code: M25.531; Problem Code Type: ICD-10; Not Available [facility] 3 04:12:27 Foot pain 47999315 Completed 202103/17/2023 Problem Code: M79.673; Problem Code Type: ICD-10; Not Available [facility] 3 04:12:27 Hyperthy roidism 40719043 Completed 200107/06/2023 Not Available [facility] 3 04:12:27 Radial styloid tenosyno vitis 24048693 Completed 201603/17/2023 Problem Code: M65.4; Problem Code Type: ICD-10; Not Available [facility] 3 04:12:27 Tendinit is of right posterio r tibial tendon 05221569519 9102 Completed 201607/31/2020 Problem Code: M76.821; Problem Code Type: ICD-10; Not Available [facility] 3 04:12:28 Hyperten sive disorder 37399336 Completed 200907/06/2023 JESICA MORGAN, [facility] 4 16:05:24 Pre-surg acacia testing Completed 201703/31/2018 Problem Code: Z01.812; Problem Code Type: ICD-10; Not Available [facility] 3 04:12:28 Lumbago with sciatica 705274016 Completed 201901/26/2021 Problem Code: M54.40; Problem Code Type: ICD-10; Not Available [facility] 3 04:12:29 Hypercho lesterol emia 66190646 Completed 200107/06/2023 Not Available [facility] 3 04:12:29 Recurren t urinary tract infectio n 136937982 Active 2022 ROSALINDA CONCEPCION MD [address], [place], [address] , [facility] 3 10:09:04 Thyroide ctomy Completed 202202/15/2024 Estefania alford [facility]. 4 17:04:51 Chronic low back pain 878789286 Active 2022 Estefania alford [facility] 4 17:03:50 Neuropat hy 562596350 Active 2023 Estefania alford [facility] 17:04:26 Muscle pain 96275777 Active 2023 Estefania alford, [facility] 17:04:24 Obiit marko loaiza 82085255 Active 2023 Estefania alford, [facility] 17:04:12 Abdomina l muscle pain 22012325176 103 Completed 202308/22/2024 FIFI HU MD [address], [place], [address] , [facility] 16:56:31 Problem Notes None recorded. Procedures Surgical History None recorded. Imaging Results Imaging Date Name Status LastModified by Organization Details LastModified Time 05/07/2024 XR, pelvis, 1 or 2 view completed [facility] [address], [place], [address], 05/08/2024 22:35:43 05/07/2024 xr sacrum/coccyx 2+ views completed [facility] [address], [place], [address], 05/08/2024 22:35:43 09/19/2020 XR, chest completed Information no t available 06/25/2024 16:50:49 03/31/2022 XR, shoulder completed Information not available 06/25/2024 16:50:52 10/23/2022 XR, chest completed Information no t available 06/25/2024 16:50:52 06/13/2019 CT, chest, w/o contrast completed Information not available 06/25/2024 16:51:02 06/18/2022 US, renal completed Information no t available 06/25/2024 16:51:05 09/18/2020 XR, chest completed Information no t available 06/25/2024 16:51:06 02/29/2020 imaging/diagnostic result completed Information not available 06/25/2024 16:51:06 05/10/2023 imaging/diagnostic result completed Information not available 06/25/2024 16:51:08 06/18/2022 imaging/diagnostic result completed Information not available 06/25/2024 16:51:09 03/06/2020 imaging/diagnostic result completed Information not available 06/25/2024 16:51:13 08/18/2022 imaging/diagnostic result completed Information not available 06/25/2024 16:51:14 05/01/2019 bone density completed Information not available 06/25/2024 16:51:15 08/01/2020 CT, abdomen + pelvis completed Information not available 06/25/2024 16:51:15 11/16/2022 CT, chest completed Information no t available 06/25/2024 16:51:20 03/19/2020 imaging/diagnostic result completed Information not available 06/25/2024 16:51:30 10/25/2022 imaging/diagnostic result completed Information not available 06/25/2024 16:52:05 11/19/2020 imaging/diagnostic result completed Information not available 06/25/2024 16:54:02 03/02/2023 CT, abdomen + pelvis, w/o contrast completed Information not available 06/25/2024 16:54:06 04/06/2019 imaging/diagnostic result completed Information not available 06/25/2024 16:54:08 07/13/2022 imaging/diagnostic result completed Information not available 06/25/2024 16:54:09 08/01/2020 imaging/diagnostic result completed Information not available 06/25/2024 16:54:13 08/10/2022 imaging/diagnostic result completed Information not available 06/25/2024 16:54:14 11/17/2020 CT, angiogram, chest, w/wo contrast completed Information not available 06/25/2024 16:54:17 04/06/2019 imaging/diagnostic result completed Information not available 06/25/2024 16:54:31 04/23/2022 NM, bone scan, limited completed Information not available 06/25/2024 16:54:32 08/29/2019 US, head + neck, soft tissue completed Information not available 06/25/2024 16:54:42 10/31/2020 US, echocardiogram completed Inform ation not available 06/25/2024 16:54:44 07/13/2022 XR, spine completed Information no t available 06/25/2024 16:54:45 11/16/2022 CT, chest, w/o contrast completed Information not available 06/25/2024 16:54:46 09/18/2020 imaging/diagnostic result completed Information not available 06/25/2024 16:54:48 11/03/2020 imaging/diagnostic result completed Information not available 06/25/2024 16:54:50 03/17/2023 imaging/diagnostic result completed Information not available 06/25/2024 16:55:26 Procedure Notes None recorded. Medical Equipment None Reported. Allergies Allergen ID Allergen Name Allergen Category Reaction Reaction Severity Criticality Documentation Date Start Date Code Code System Note Provider Name and Address Organization Details Recorded Time 88889 Iodinated contrast media (substanc e) medicatio n flushing moderate Not available 08/19/20232003 06367 2003 SNOMED flush ing Aller gyNam e: 'IVP DYE'; Not Available [facility] 3 16:22:19 85613 iodine medicatio n flushing Not available Not available 08/19/20232002 5933 RxNorm flush ing Not Available [facility] 3 16:22:19 17384 epinephri ne medicatio n Not available Not available [facility] 09/06/2023 3992 RxNorm JÚNIOR SORIANO RN [facility], [place] - [facility] 09:02:42 53640 lisinopri l medicatio n Not available Not available [facility] 09/06/20232022 91050 RxNorm JÚNIOR SORIANO RN null, [facility] 3 09:03:14 38426 losartan medicatio n Not available Not available [facility] 09/06/20232022 22113 RxNorm JÚNIOR SORIANO RN null, [facility] 3 09:03:34 07359 shellfish derived food,[facility] Not available Not available high 09/06/20232022 JÚNIOR SORIANO RN null, [facility] 3 15:24:41 26330 Elmiron medicatio n myalgias (muscle pain) mild low 09/13/2023 93196 3 RxNorm ROSALINDA CONCEPCION MD [address], [place], [place], [id number] [place] [address] 3 10:07:17 [id number] levothyro xine sodium medicatio n Not available Not available Not available 12/05/2023 01029 RxNorm TRACEY VEGA MA null, [facility] 4 09:09:34 [id number] Medicinal product containin g quinolone and acting as antibacte rial agent (product) medicatio n itching moderate high 05/31/2024 [id number] SNOMED recen tly tried Cipro JUAN C GUZMAN MA [facility], [facility] 4 12:41:42 Medications Name Sig Start Date Stop Date Status Note LastModified by Organization Details LastModified Time Prescript ion - Renewal 12/05 completed Not Available Not Available Not Available Prescript ion - Change 03/29 completed Not Available Not Available Not Available Prescript ion - Prior Authoriza tion Request 03/29 completed Not Available Not Available Not Available losartan 50 mg tablet Take 1 tab by mouth daily 01/31 completed Not Available Not Available Not Available amoxicill in 500 mg capsule Take 1 cap by mouth three times daily 01/11 completed Not Available Not Available Not Available fluconazo le 100 mg tablet Take 1 tablet by mouth daily 10/07 completed Not Available Not Available Not Available methocarb maik 500 mg tablet 2tab three times daily 01/31 completed Not Available Not Available Not Available terbinafi ne HCl 1 % topical cream Apply to affected area twice daily 04/14 completed Not Available Not Available Not Available terconazo le 0.4 % vaginal cream INSERT 1 APPLICAT OR FULL INTO VAGINA NEEDED FOR 30 DAYS active Not Available Not Available No t Available nystatin 100,000 unit/mL oral suspensio n SHAKE LIQUID AND TAKE 2 ML BY MOUTH FOUR TIMES DAILY 06/13 completed Not Available Not Available Not Available prednison e 10 mg tablet SEE ATTACHED INSTRUCT IONS 03/12 completed Not Available Not Available Not Available ipratropi um 0.5 mg-albute rol 3 mg (2.5 mg base)/3 mL nebulizat ion soln Inhale by nebuliza tion route for 15 days. 2023 active Not Available Not Available Not Avai lable fexofenad ine 60 mg tablet Take 1 tab by mouth twice daily 2019 active Not Available Not Available Not Avai lable cetirizin e 10 mg tablet Take 1 tablet by mouth once a day 11/08 completed Not Available Not Available Not Available amoxicill in 125 mg chewable tablet Chew 2 tablets every 8 hours by oral route. 05/31 completed Not Available Not Available Not Available azithromy isaias 250 mg tablet TAKE 2 TABLETS BY MOUTH ON DAY 1 THEN TAKE 1 TABLET DAILY FOR 4 DAYS 03/12 completed Not Available Not Available Not Available fosfomyci n trometham ine 3 gram oral packet Take 1 packet by mouth every 48 hours 1x every 1o days 05/31 completed Not Available Not Available Not Available cefpodoxi me 100 mg tablet TAKE 1 TABLET BY MOUTH TWICE DAILY 10/09 completed Not Available Not Available Not Available tizanidin e 4 mg tablet 1tab q 8 hr 06/01 completed Not Available Not Available Not Available fluconazo le 150 mg tablet Take 1 tablet by mouth single dose 12/10 completed Not Available Not Available Not Available benzonata te 200 mg capsule TAKE 1 CAPSULE BY MOUTH THREE TIMES DAILY NEEDED FOR COUGH 03/29 completed Not Available Not Available Not Available sulfameth oxazole 400 mg-trimet hoprim 80 mg tablet TAKE 1/2 TABLET BY MOUTH EVERY DAY PRN for bladder infectio ns 08/22 completed Not Available Not Available Not Available ranitidin e 300 mg tablet Take 1 tablet by mouth twice a day. 01/[address] Marcia self Not Available Not Available Not Available minocycli ne 100 mg capsule TAKE 2 CAPSULE BY MOUTH STAT THEN TAKE ONE CAPSULE BY MOUTH TWICE A DAY FOR 5 DAYS 06/13 completed Not Available Not Available Not Available sucralfat e 1 gram tablet take 1 tablet 3 times daily 12/09 completed Not Available Not Available Not Available ibuprofen 200 mg capsule 3 caps tid prn 07/19 completed Not Available Not Available Not Available phenazopy ridine 200 mg tablet TAKE 1 TABLET BY MOUTH THREE TIMES DAILY AFTER MEALS FOR 10 DAYS 05/31 completed Not Available Not Available Not Available Flonase 50 mcg/DOSE nasal inhaler 2INH daily 06/01 completed Not Available Not Available Not Available famotidin e 40 mg tablet take 1 tab by mouth daily at bedtime 01/23 completed Not Available Not Available Not Available prednison e 20 mg tablet Take 3 tablet by mouth once a day for 3 days, take 2 tablet by mouth once a day for 3 days, take 1 tablet once a day for 3 days, 1/2 tablet by mouth once a day for 4 days. 03/29 completed Not Available Not Available Not Available metoprolo l succinate ER 100 mg tablet,ex tended release 24 hr Take 1 tab by mouth daily 01/28 completed Not Available Not Available Not Available atenolol 25 mg tablet TAKE 1 TABLET BY MOUTH TWICE DAILY 2023 active Not Available Not Available Not Avai lable clobetaso l 0.05 % topical cream apply cream daily for 7 days prn 10/31 completed Not Available Not Available Not Available polymyxin B sulfate, micronize d (bulk) 100 million unit powder Mix 500,000 units in 250 cc normal saline and instill into bladder as directed 11/18 completed Not Available Not Available Not Available amoxicill in 250 mg-potass ium clavulana te 125 mg tablet TAKE 1 TABLET BY MOUTH THREE TIMES DAILY 10/09 completed Not Available Not Available Not Available Calcium Antacid 200 mg (as calcium carbonate 500 mg) chewable tablet CHEW AND SWALLOW 2 TABLETS BY MOUTH 4 TIMES DAILY 12/05 completed Not Available Not Available Not Available metronida zole 500 mg tablet Take 1 tablet by mouth twice a day 02/21 completed Not Available Not Available Not Available lidocaine HCl 2 % mucosal jelly Insert 1 applicat orful as directed once a day as needed in urethra 05/24 completed Not Available Not Available Not Available nifedipin e ER 30 mg tablet,ex tended release Take 1 tablet by mouth once a day 05/31 completed Not Available Not Available Not Available acetamino phen 300 mg-codein e 30 mg tablet 09/13 completed Not Available Not Available Not Available chlorthal idone 25 mg tablet 1/2 qd 09/24 completed Not Available Not Available Not Available levofloxa isaias 250 mg tablet Take 1 tablet daily for 3 days 02/10 completed Not Available Not Available Not Available Detrol LA 4 mg capsule,e xtended release 1 tab daily 10/02 completed Not Available Not Available Not Available amlodipin e 5 mg tablet Take 1 tab by mouth daily 12/31 completed Not Available Not Available Not Available trimethop rim 100 mg tablet TAKE 1 TABLET BY MOUTH once daily 2023 active Not Available Not Available Not Avai lable ciproflox acin 500 mg tablet TAKE 1 TABLET BY MOUTH EVERY 12 HOURS FOR 5 DAYS 05/31 completed Not Available Not Available Not Available sulfameth oxazole 800 mg-trimet hoprim 160 mg tablet TAKE 1 TABLET BY MOUTH TWICE DAILY FOR 5 DAYS 08/22 completed Not Available Not Available Not Available omeprazol e 40 mg capsule,d elayed release TAKE 1 CAPSULE BY MOUTH as needed 08/20 completed Not Available Not Available Not Available Medrol 4 mg tablet Dose suzanne: 6 day taper. Take as directed 07/31 completed Not Available Not Available Not Available Zantac 150 mg tablet 1 tab by mouth at bedtime 08/01 completed Not Available Not Available Not Available ergocalci ferol (vitamin D2) 50,000 unit tablet 1 cap 1/ week 08/01 completed Not Available Not Available Not Available pantopraz ole 20 mg tablet,de layed release Take 1 tab by mouth daily. 03/31 completed Not Available Not Available Not Available levothyro xine 75 mcg tablet TAKE 1 TABLET BY MOUTH DAILY 09/13 completed dose change Not Available Not Available Not Available Celebrex 200 mg capsule Take 1 cap by mouth twice daily 03/31 completed from Nathaniel NAVARRO md dose uncertai n Not Available Not Available Not Available nortripty line 25 mg capsule 07/07 completed Not Available Not Available Not Available meloxicam 7.5 mg tablet Take 1-2 tab by mouth daily 02/14 completed Not Available Not Available Not Available levothyro xine 100 mcg tablet TAKE 1 TABLET BY MOUTH DAILY. REPEAT LABS IN 6 WEEKS TO REASSESS DOSE 12/05 completed Not Available Not Available Not Available Aerochamb er MV spacer Use 1 device as directed as directed as directed with symbicor t Inhaler 2022 active Not Available Not Available Not Avai lable levothyro xine 88 mcg tablet TAKE 1 TABLET BY MOUTH DAILY 12/05 completed Not Available Not Available Not Available methenami ne hippurate 1 gram tablet Take 1 tablet by mouth twice a day 09/13 completed Not Available Not Available Not Available amoxicill in 875 mg tablet Take 1 tablet by mouth twice a day 11/25 completed Not Available Not Available Not Available Celebrex 100 mg capsule Take 1 by mouth twice daily 10/31 completed Not Available Not Available Not Available Vitamin C 1,000 mg tablet Take 1 tablet every day by oral route. active Not Available Not Available No t Available prednison e 1 mg tablet 03/17 completed Not Available Not Available Not Available hydrocodo ne-acetam inophen 500-5 mg tablet 1 q 6 hr 06/01 completed Not Available Not Available Not Available amitripty line 10 mg tablet Take 1 tablet by mouth at bedtime 05/31 completed Not Available Not Available Not Available meclizine 25 mg tablet 1 qhs 11/13 completed Not Available Not Available Not Available phenazopy ridine 100 mg tablet TAKE 1 TABLET BY MOUTH THREE TIMES DAILY NEEDED FOR PAIN. 09/13 completed Not Available Not Available Not Available benzonata te 100 mg capsule Take 1 capsule by mouth twice a day as needed Take 1 capsule twice daily as needed for cough 09/13 completed Not Available Not Available Not Available doxycycli ne monohydra te 100 mg capsule TAKE 1 CAPSULE BY MOUTH TWICE DAILY FOR 10 DAYS 09/13 completed Not Available Not Available Not Available cephalexi n 500 mg capsule TAKE 1 CAPSULE BY MOUTH 3 TIMES A DAY FOR 5 DAYS 05/31 completed Not Available Not Available Not Available pantopraz ole 40 mg tablet,de layed release TAKE 1 TABLET BY MOUTH DAILY active Not Available Not Available No t Available erythromy isaias 5 mg/gram (0.5 %) eye ointment Apply to affected eyes 4 times a day for 7 days 01/23 completed Not Available Not Available Not Available calcitrio l 0.5 mcg capsule TAKE 1 CAPSULE BY MOUTH EVERY DAY 12/05 completed Not Available Not Available Not Available levothyro xine 125 mcg tablet TAKE 1 TABLET BY MOUTH ONCE DAILY BEFORE BREAKFAS T 09/13 completed Not Available Not Available Not Available triamcino lone acetonide 0.1 % topical ointment apply to affected area BID 03/11 completed Not Available Not Available Not Available nystatin 100,000 unit/gram topical cream Apply to area 4 times daily for 14 days . 01/23 completed Not Available Not Available Not Available diphenhyd ramine 25 mg tablet 1TAB qd 11/28 completed Not Available Not Available Not Available Macrodant in 50 mg capsule Take 1 by mouth at bedtime once daily 10/[address] Posada Not Available Not Available Not Available Flovent 220 mcg/actua tion aerosol inhaler 2 puffs bid 12/28 completed Not Available Not Available Not Available syringe (disposab le) 3 mL Use 1 syringe as directed as directed 03/17 completed Not Available Not Available Not Available losartan 25 mg tablet Take 1 tablet daily 12/09 completed Not Available Not Available Not Available methimazo le 5 mg tablet Take 1 tablet by mouth three times a day 11/18 completed on hold as of November 08, 2022 with concern of side effects of itching Not Available Not Available Not Available Synthroid 50 mcg tablet TAKE 2 TABLETS BY MOUTH DAILY 12/05 completed Not Available Not Available Not Available gabapenti n 300 mg capsule take 1 cap by mouth at bedtime 03/31 completed Not Available Not Available Not Available omeprazol e 20 mg capsule,d elayed release 1 capsule by mouth twice daily 03/16 completed Not Available Not Available Not Available Macrodant in 100 mg capsule Take 1 capsule every day by oral route. 09/13 completed Not Available Not Available Not Available cephalexi n 500 mg tablet 04/21 completed Not Available Not Available Not Available amoxicill in 250 mg capsule 1 CAP TID 03/05 completed Not Available Not Available Not Available monteluka st 10 mg tablet Take 1 tablet by mouth as needed 01/29 completed Not Available Not Available Not Available hydroxyzi ne HCl 25 mg tablet 1TAB tid 10/26 completed Not Available Not Available Not Available codeine 10 mg-guaife nesin 100 mg/5 mL oral liquid TAKE 10 ML BY MOUTH EVERY 6 TO 8 HOURS FOR 3 DAYS NEEDED 03/29 completed Not Available Not Available Not Available lisinopri l 5 mg tablet Take 1 tab by mouth daily 11/14 completed Not Available Not Available Not Available hydrochlo rothiazid e 25 mg tablet Take 1 tab by mouth daily 02/10 completed Not Available Not Available Not Available gabapenti n 100 mg capsule Take 1 cap by mouth three times daily 01/[address] Bocanegra Not Available Not Available Not Available lorazepam 1 mg tablet take 30-45 minutes prior to MRI 09/17 completed Not Available Not Available Not Available azelastin e 137 mcg (0.1 %) nasal spray [place] 2 spray into both nostrils twice a day as needed 03/29 completed Not Available Not Available Not Available Nasonex 50 mcg/actua tion [place] 2 puffs qd 12/28 completed Not Available Not Available Not Available levofloxa isaias 500 mg tablet Take 1 tablet by mouth once a day 04/05 completed Not Available Not Available Not Available estradiol 0.01% (0.1 mg/gram) vaginal cream INSERT 2 GRAMS VAGINALL Y DAILY active Not Available Not Available No t Available levofloxa isaias 750 mg tablet Take 1 tablet by mouth once a day 11/20 completed Not Available Not Available Not Available hydrocodo ne 10 mg-chlorp heniramin e 8 mg/5 mL oral susp extend.re l 12hr TAKE 5 MILLILIT ERS BY MOUTH EVERY 12 HOURS NEEDED FOR COLD SYMPTOMS MAX DAILY DOSE IS 10 MILLITER S 03/12 completed Not Available Not Available Not Available albuterol sulfate HFA 90 mcg/actua tion aerosol inhaler INHALE 2 PUFFS BY MOUTH EVERY 6 HOURS NEEDED FOR SHORTNES S OF BREATH OR WHEEZING active Not Available Not Available No t Available methimazo le 10 mg tablet 1 TAB daily 01/04 completed Not Available Not Available Not Available Vitamin D2 1,250 mcg (50,000 unit) capsule 1 cap every other week 10/24 completed Not Available Not Available Not Available ipratropi um bromide 42 mcg (0.06 %) nasal spray USE 2 SPRAYS IN EACH NOSTRIL TWICE DAILY active Not Available Not Available No t Available ondansetr on 4 mg disintegr ating tablet 05/31 completed Not Available Not Available Not Available fluticaso ne propionat e 50 mcg/actua tion nasal spray,ruy pension 1-2 spray twice a day 08/10 completed Not Available Not Available Not Available imipramin e 25 mg tablet Take 1 tablet by mouth at bedtime 11/18 completed Not Available Not Available Not Available doxycycli ne hyclate 100 mg tablet 1 TAB twice daily 08/07 completed Not Available Not Available Not Available atenolol 50 mg tablet Take 1 tab by mouth twice daily 01/23 completed Not Available Not Available Not Available calcitrio l 0.25 mcg capsule Take 1 capsule by mouth once a day 06/02 completed [facility] discharg e Not Available Not Available Not Available ipratropi um bromide 21 mcg (0.03 %) nasal spray [place] 2 spray into both nostrils twice a day 08/11 completed Not Available Not Available Not Available loratadin e 10 mg tablet TAKE 1 TABLET BY MOUTH EVERY DAY NEEDED active Not Available Not Available No t Available amoxicill in 875 mg-potass ium clavulana te 125 mg tablet TAKE 1 TABLET BY MOUTH EVERY 12 HOURS FOR 10 DAYS 05/31 completed Not Available Not Available Not Available Flexeril 10 mg tablet 1 TAB TID 11/01 completed Not Available Not Available Not Available Clarinex 5 mg tablet Take 1 tablet by mouth daily 10/02 completed Not Available Not Available Not Available amoxicill in 500 mg-potass ium clavulana te 125 mg tablet TAKE 1 TABLET BY MOUTH ONCE DAILY 05/31 completed Not Available Not Available Not Available oxycodone 5 mg tablet 09/13 completed Not Available Not Available Not Available magnesium 200 mg tablet Take 2 tablets every day by oral route. active Not Available Not Available No t Available Self-Cath 04/27 completed Not Available Not Available Not Available cholestyr amine (with sugar) 4 gram powder for susp in a packet Take 1 packet by mouth twice a day as needed for diarrhea 12/09 completed Not Available Not Available Not Available Spiriva with HandiH[employer] r 18 mcg and inhalatio n capsules 1 capsule daily 10/31 completed Not Available Not Available Not Available nitrofura ntoin monohydra te/macroc rystals 100 mg capsule TAKE 1 CAPSULE BY MOUTH EVERY 12 HOURS WITH FOOD FOR 5 DAYS 05/31 completed Not Available Not Available Not Available trospium 20 mg tablet TAKE 1 TABLET BY MOUTH EVERY DAY active Not Available Not Available No t Available gabapenti n 300 mg tablet tab 02/13 completed Not Available Not Available Not Available solifenac in 10 mg tablet Take 1 tablet by mouth once a day as needed 04/10 completed Not Available Not Available Not Available Albuterol Sulfate HFA 90 mcg/Actua tion aerosol inhaler 2INH QID PRN WHEEZING 01/28 completed Not Available Not Available Not Available Vesicare 5 mg tablet 1 tab daily prn 2013 active Not Available Not Available Not Avai lable levalbute rol HFA 45 mcg/actua tion aerosol inhaler 2 inhalati .q6 hours prn 10/26 completed Not Available Not Available Not Available calcium 260 mg (as calcium carbonate 648 mg) tablet Take 2 tablet by mouth four times a day 09/13 completed [facility] Not Available Not Available Not Available Lyrica 50 mg capsule 1 tab daily 03/08 completed Not Available Not Available Not Available zinc 1 tab daily active Not Available Not Available No t Available Pyridium 1 as needed 01/30 completed see Urology note from 01/31/24 Not Available Not Available Not Available Fluticaso ne Propionat e (Nasal) 1-2 sprays twice daily 2013 active Not Available Not Available Not Avai lable aloe vera active Not Available Not Stella ilable Not Available Anusol-HC cream twice daily 11/28 completed Not Available Not Available Not Available Maxair 2 puffs q6h 10/15 completed Not Available Not Available Not Available Vitamin D3 active Not Available Not Available Not Available DuoNeb qid 11/28 completed Not Available Not Available Not Available Vitamin B12 1 tab a day 12/05 completed Not Available Not Available Not Available Spiriva with [employer]Hale r 2013 active Not Available Not Available Not Avai lable Clarinex- D 12 HOUR 2.5 mg-120 mg tablet,ex tended release Take 1 tablet by mouth twice a day. 10/[address] Posada Not Available Not Available Not Available Advair HFA 230 mcg-21 mcg/actua tion aerosol inhaler INHALE 2 PUFFS BY MOUTH TWICE DAILY active Not Available Not Available No t Available cholecalc iferol (vitamin D3) 25 mcg (1,000 unit) tablet once a day 01/10 completed Not Available Not Available Not Available acetylcys teine 600 mg capsule 09/13 completed Not Available Not Available Not Available Symbicort 160 mcg-4.5 mcg/actua tion HFA aerosol inhaler Inhale 2 puff using inhaler twice a day 12/09 completed Not Available Not Available Not Available trospium ER 60 mg capsule,e xtended release 24 hr 09/07 completed Not Available Not Available Not Available omeprazol e 20 mg tablet,de layed release Take 1 tablet by mouth daily 03/31 completed OTC Not Available Not Available Not Available fesoterod ine ER 4 mg tablet,ex tended release 24 hr Take 1 tablet every day by oral route. 03/12 completed Not Available Not Available Not Available Original Nasal [place] 0.05 % 1 spray in each nostril at bedtime. 2020 active Not Available Not Available Not Avai lable Tirosint 100 mcg capsule TAKE ONE CAPSULE BY MOUTH DAILY 03/29 completed Not Available Not Available Not Available Tirosint 112 mcg capsule TAKE 1 CAPSULE BY MOUTH DAILY active Not Available Not Available No t Available Probiotic daily active Not Available Not Stella ilable Not Available Leigha Allergy 180 mg tablet 1 tab daily prn 10/31 completed Not Available Not Available Not Available ICaps AREDS 1 cap 2x a day 03/12 completed Not Available Not Available Not Available d-mannose 2 tabs a day active Not Available Not Available No t Available Glydo 2 % mucosal jelly in applicato r TAKE 1 APPLICAT ION BY MUCOUS ROUTE DAILY FOR 7 DAYS active Not Available Not Available No t Available Spiriva Respimat 2.5 mcg/actua tion solution for inhalatio n INHALE 2 PUFFS BY MOUTH DAILY 09/13 completed Not Available Not Available Not Available Uro-MP 118 mg-10 mg-40.8 mg-36 mg capsule TAKE 1 CAPSULE BY MOUTH THREE TIMES DAILY NEEDED FOR BLADDER PAIN active Not Available Not Available No t Available Incruse Ellipta 62.5 mcg/actua tion powder for inhalatio n Inhale 1 puff as directed once a day 12/30 completed Not Available Not Available Not Available Spiriva Respimat 1.25 mcg/actua tion solution for inhalatio n Inhale 2 puff as directed once a day 02/[address] completed [address] ed by Dr. Ward Not Available Not Available Not Available Bevespi Aerospher e 9 mcg-4.8 mcg HFA aerosol inhaler 2 puffs twice daily 09/18 completed Not Available Not Available Not Available Shingrix (PF) 50 mcg/0.5 mL intramusc ular suspensio n, kit administ er Im now and repeat dose in 2-6 months 07/31 completed Not Available Not Available Not Available Uribel Tabs prn- from [facility] active Not Available Not Available No t Available Vitals Date Recorded Body height Oxygen saturation Oxygen saturation in Arterial blood by Pulse oximetry Heart rate Systolic blood pressure Diastolic blood pressure Provider Name and Address Organization Details Last Updated DateTime 4 164.85 cm 97 % 97 % 81 /min 128 mm[Hg] 82 mm[Hg] DEREJE Al MA [facility] 4 11:36:33 Date Recorded Body height Body temperature Oxygen saturation Oxygen saturation in Arterial blood by Pulse oximetry Heart rate Systolic blood pressure Diastolic blood pressure Provider Name and Address Organization Details Last Updated DateTime 4 164.85 cm 97.2 [degF] 98 % 98 % 76 /min 140 mm[Hg] 86 mm[Hg] JUAN C GUZMAN MA [facility] 4 12:19:53 Date Recorded Body temperature Oxygen saturation Oxygen saturation in Arterial blood by Pulse oximetry Heart rate Systolic blood pressure Diastolic blood pressure Provider Name and Address Organization Details Last Updated DateTime 4 97.5 [degF] 97 % 97 % 65 /min 164 mm[Hg] 90 mm[Hg] NITZA PERALTA RN [facility] 14:58:08 Date Recorded Body height Body temperature Oxygen saturation Oxygen saturation in Arterial blood by Pulse oximetry Heart rate Systolic blood pressure Diastolic blood pressure Provider Name and Address Organization Details Last Updated DateTime 4 164.85 cm 97.6 [degF] 96 % 96 % 80 /min 140 mm[Hg] 82 mm[Hg] Samantha Fishman [facility] 08:45:43 Social History Question Answer Notes LastModified by Organizat ion Details LastModified Time Tobacco Smoking Status Former Smoker Samantha Fishman prashanth [facility] 10/09/2024 08:42:03 When Did You Quit Smoking? 18+yearssi melissaelastcig abelardo flores Information not available 10/09/2024 Would You Say That, In General, Your Health Is Good [email or web address] Information not available 08/22/2024 How Often Does Anyone, Including Family, Physically Hurt You? Never [email or web address] Information not available 08/22/2024 How Often Does Anyone, Including Family, Insult Or Talk Down To You? Never Information no t available 08/22/2024 How Often Does Anyone, Including Family, Threaten You With Harm? Never [email or web address] Information not available 08/22/2024 How Often Does Anyone, Including Family, Scream Or Curse At You? Never [email or web address] Information not available 08/22/2024 Within The Past 12 Months, You Worried That Your Food Would Run Out Before You Got Money To Buy More. Never True [email or web address] Information n ot available 08/22/2024 Within The Past 12 Months, The Food You Bought Just Didn't Last And You Didn't Have Money To Get More. Never True [email or web address] Information n ot available 08/22/2024 How Hard Is It For You To Pay For The Very Basics Like Food, Housing, Medical Care, And Heating? Would You Say It Is: Not Hard At All [email or web address] Information not available 08/22/2024 In The Past 12 Months, Has Lack Of Reliable Transportation Kept You From Medical Appointments, Meetings, Work Or From Getting Things Needed For Daily Living? No Car Just [email or web address] Information not available 08/22/2024 What Is Your Housing Situation Today? I Have Housing. [email or web address] Information not available 08/22/2024 How Often In The Past Year Have You Used Marijuana (including Smoking, Vaping, Dabbing, Or Edibles)? Never [email or web address] Information not available 08/22/2024 How Often In The Past Year Have You Used Prescription Medications That Were Not Prescribed To You? Never Information n ot available 08/22/2024 How Often In The Past Year Have You Taken Your Own Prescription Medication More Than The Way It Was Prescribed Or For Different Reasons Than Its Intended Purpose? Never [email or web address] Information no t available 08/22/2024 How Often In The Past Year Have You Used Other Drugs (for Example, Heroin, Cocaine, Meth, Salvia, Inhalants)? Never [email or web address] Information not available 08/22/2024 Have You Ever Used IV Drugs? No [email or web address] Information not available 08/22/2024 Date Of Most Recent SBINS 08/22/2024 Information not available 08/22/2024 What Was The Date Of Your Most Recent Tobacco Screening? 10/09/2024 Information not available 10/09/2024 Has Tobacco Cessation Counseling Been Provided? No [email or web address] Information not available 09/13/2023 How Many Years Have You Smoked Tobacco? 32 Information not available 10/09/2024 Do You Or Have You Ever Used Any Other Forms Of Tobacco Or Nicotine? No Information not available 09/13/2023 Sex: Female Functional Status None recorded. Mental Status None recorded. Family History Relationship Description Onset Age of this Age Resolved Age Notes LastModified by Organization Details LastModified Time Father Family history of acute medical disorder TB [email or web address] Not available 2022 04:00:46 Sister Family history of acute medical disorder tb [email or web address] Not available 2022 04:00:46 Mother Family history of malignant neoplasm of skin [email or web address] Not available 2022 04:00:46 Notes:*Problem: Tuberculosis , osteoporosis 03/29/05 Significant for skin Ca in her mother. Osteoporosis and tuberculosis in other family members. Medical History No medical history recorded. Gynecological HistoryNo gynecological history recorded. Obstetrics History GPAL:G 0 P 0 0 0 0 Immunizations Vaccine Type Date Status Note Provider Nam e and Address Organization Details Recorded Time Influenza, high-dose, quadrivalent, PF 3 completed ROSALINDA CONCEPCION MD [address], [place], [address], [facility] 09/13/2023 16:52:38 Pneumococcal conjugate PCV20, polysaccharide BUS314 conjugate, adjuvant, PF 4 completed FIFI HU MD [address], [place], [address], [facility] 08/23/2024 12:35:03 Tdap 5 completed Not Available [facility] 08/19/2023 06:21:40 Pneumococcal conjugate PCV 13 5 completed Not Available [facility] 08/19/2023 06:21:40 Influenza, high-dose, trivalent, PF 8 completed Not Available [facility] 08/19/2023 06:21:41 Influenza, split virus, trivalent, preservative 6 completed Not Available [facility] 08/19/2023 06:21:41 Influenza, split virus, quadrivalent, PF 0 completed Not Available [facility] 08/19/2023 06:21:41 Influenza, split virus, quadrivalent, preservative 7 completed Not Available [facility] 08/19/2023 06:21:41 Influenza, MDCK, quadrivalent, PF 9 completed Not Available [facility] 08/19/2023 06:21:41 Influenza, high-dose, quadrivalent, PF 1 completed Not Available [facility] 08/19/2023 06:21:42 Influenza, high-dose, quadrivalent, PF 2 completed Not Available [facility] 08/19/2023 06:21:42 COVID-19, mRNA, LNP-S, PF, 100 mcg/0.5mL dose or 50 mcg/0.25mL dose 1 completed Not Available [facility] 08/19/2023 06:21:42 COVID-19, mRNA, LNP-S, PF, 100 mcg/0.5mL dose or 50 mcg/0.25mL dose 1 completed Not Available [facility] 08/19/2023 06:21:42 COVID-19, mRNA, LNP-S, PF, 100 mcg/0.5mL dose or 50 mcg/0.25mL dose 2 completed Not Available [facility] 08/19/2023 06:21:42 COVID-19, mRNA, LNP-S, PF, 100 mcg/0.5mL dose or 50 mcg/0.25mL dose 1 completed Not Available [facility] 08/19/2023 06:21:42 pneumococcal polysaccharide PPV23 7 completed Not Available [facility] 08/19/2023 06:21:42 pneumococcal polysaccharide PPV23 8 completed Not Available [facility] 08/19/2023 06:21:42 Past Encounters Encounter ID Performer Location Encounter Start Date Encounter Closed Date Diagnosis/Indication Diagnosis SNOMED-CT Code Diagnosis ICD10 Code [id number] ROSALINDA CONCEPCION MD [address] [address] 09/13/2023 15:00:40 09/13/2023 16:54:11 Active or passive immunization 422421522 Z23 Essential hypertension 07447825 I10 Chronic in terstitial cystitis 558885624 N30.10 Chronic ob structive pulmonary disease 35349007 J44.9 Hypothyroidism 59645549 E03.9 [id number] GO GALVEZ MD [address] [address] 12/05/2023 08:43:41 12/05/2023 10:23:06 Essential hypertension 10699044 I10 Neuropathy 515989665 G62 .9 Muscle pain 78981942 M79 .10 Tremor 57596924 R25.1 [id number] GO GALVEZ MD [address] [address] 12/26/2023 13:44:43 12/26/2023 14:44:57 Intermittent claudication 63827431 I73.9 Chronic ob structive pulmonary disease 61743357 J44.9 Essential hypertension 38620066 I10 Muscle pain 09991523 M79 .10 Neuropathy 764821200 G62 .9 [id number] GO GALVEZ MD [address] [address] 03/29/2024 11:43:38 03/29/2024 12:40:26 Essential hypertension 27865859 I10 Acute exac erbation of chronic obstructive pulmonary disease 682712803 J44.1 Allergic rhinitis 301876 04 J30.9 Abdominal muscle pain 28 84256576 9103 M79.18 [id number] GO GALVEZ MD [address] [address] 03/12/2024 11:52:10 03/12/2024 12:40:58 Acute exacerbation of chronic obstructive pulmonary disease 154796729 J44.1 [id number] GO GALVEZ MD [address] [address] 04/10/2024 13:20:58 04/10/2024 13:56:55 [id number] GO GALVEZ MD [address] [address] 04/24/2024 11:29:24 04/24/2024 11:47:03 [id number] HEATHER ARCE PA-C [address] [address] 04/25/2024 13:23:24 04/25/2024 14:10:15 Acute urinary tract infection 900093186 N39.0 [id number] DENIZ LUNDBERG PA-C [address] [address] 05/05/2024 11:24:06 05/05/2024 12:33:40 Dry skin dermatitis 083132826 L85.3 [id number] JOSE VILLATORO MD [address] [address] 05/31/2024 12:16:35 05/31/2024 13:16:25 Intermittent claudication 35490605 I73.9 Low back pain 459212601 M54.50 [id number] GO GALVEZ MD [facility] [address] [place] [address] 06/21/2024 11:23:03 06/21/2024 13:24:04 Urinary tract infectious disease 87579893 N39.0 [id number] FIFI HU MD [address] [address] 08/22/2024 14:39:54 08/22/2024 15:40:17 Lesion of skin of face 0705940403 06 L98.9 Active or passive immunization 799249294 Z23 Chronic ob structive pulmonary disease 21618320 J44.9 Hypothyroidism 63933475 E03.9 Chronic in terstitial cystitis 796886018 N30.10 Recurrent urinary tract infection 257424738 N39.0 [id number] Oswaldo Eric [address] [address] 10/09/2024 08:33:03 10/09/2024 10:06:40 Fatigue 71223497 R53.83 Multiple joint pain 3567 8005 M25.50 Vitamin D deficiency 347 14710 E55.9 Recurrent urinary tract infection 954001856 N39.0 Health Concerns Section Related Observation LastModified by Organization Detai ls LastModified Time None Recorded Concern Status LastModified by Organization Details LastModified Time None Recorded Advance Directives Directive None Recorded Payers Encounter Date Sequence Insurance Name Policy Number Policy Hernandez Covered Member ID Hernandez Member ID Guarantor Name 05/05/2024 1 [place] [employer] Maureen Bernstein Elzohairy [id number] Maureen Bernstein Elzohairy 05/05/2024 2 [facility] (MEDICAID) Maureen Bernstein Elzohairy [id number] Maureen Bernstein Elzohairy 05/31/2024 1 [place] [employer] Maureen Bernstein Elzohairy [id number] Maureen Bernstein Elzohairy 05/31/2024 2 [facility] (MEDICAID) Maureen Bernstein Elzohairy [id number] Maureen Thomas 06/21/2024 1 [place] [facility] Maureen Thomas [id number] Maureen Thomas 06/21/2024 2 [facility] (MEDICAID) Maureen Puentery [id number] Maureen Thomas 08/22/2024 1 [place] [facility] Maureen Thomas [id number] Maureen Thomas 08/22/2024 2 [facility] (MEDICAID) Maureen Puentery [id number] Maureen Thomas Notes Date Note Type Note Provider Name and Address Organization Details Recorded Time 05/05/2024 text/html This is an 84-year-old female, she states she is coming in for blood pressure check with the nurses but had some bilateral dry skin on her lower legs so thought she should get checked out. States has been itchy and occurring for about 3 weeks. She has been applying [id number] moisturizers, she is not certain what, she does not think is helping. No drainage or weeping. She wondered if it might be a circulation issue. [address], [place], [address], [facility]. 05/05/2024 12:54:18 05/31/2024 text/html Patient arrived late for appointment for PCP. Was quite demanding with staff, apparently asked to see whoever she could. This appointment is apparently for low back pain. Has other issues she would like to talk about me instead. She apparently was referred for MICHELLE testing a few months back for possible claudication. Referral was sent to [facility], apparently not something that can be done the weight is ordered, then contacted at our local hospital. Patient told that Dr. Yuan Wallace was available does perform that test, she would like referral to them to have it done. She also has questions about her prescriptions. States she is wondering why they are not sent for longer times in the ER, I suspect in the transition from her previous PCP to her present 1 there may have been a bit of overlapping. She is told from what I can see her most recent prescriptions have all been for 90 days, that is standard. MD [address], [place], [address], [facility]. 06/04/2024 02:18:52 06/21/2024 text/html Chronic UTIs.Has seen her current urologist for the last year, telling her now she has to go to the ED for IV antibiotics. Can't talk directly to her.Urine sample brought in on Tuesday.Reluctant to go the ED for IV antibiotics if she can avoid it.She has the urine results in front of her: Enterobacter cloacae complex.Susceptible to aztreonam, Cefepime, ceftriaxone, ciprofloxacin (allergic), ertapenem, gentamicin, imipinem, levofloxacin (allergic), minocycline (allergic), zosyn, tetracycline, tigecylcine, tobramycin, trimethoprim/sulfa. Frustrated by repeated bouts of UTIs. GO GALVEZ MD [address], [place], [address], [facility]. 06/21/2024 14:46:44 08/22/2024 text/html Here to [facility]/transfer from [place] ([place] closer) and f/u interstitial cystitis and recurrent UTIs. She has seen many urologists over the years and found limited benefit to these consultations. She has felt frustrated by lack of answers.She has been on many course of antibiotics over the years and is concerned about developing resistance. She has chronic issues with urinary frequency and urgency and discomfort, no burning with urination. When she has a flare, the bladder 'feels like it's on fire' constantly. u/a and cultures are sometimes positive and sometimes negative when symptoms flare.She does not have fevers with utis or altered mental status.Most recently culture was positive, resistant to many abx, and she was treated with cefpodoxime by Dr. Fierro.Dr. Fierro started her on uribel and daily trimethoprim instead of her previous daily cephalexin for ppx.She will be discussing a trial of bladder installations at f/u if needed. The uribel is helping relieve her symptoms right now as long as she takes it at least once a day. She has one cup of coffee daily, one cup of milk, a small amount of seltzer, no water, does not like water. Very rare alcohol. Tries to avoid acidic and spicy foods. Has had frequency and urgency issues for decades. Has been on tiw vaginal estrogen for many years, it hasn't seemed to help her urinary issues.She cannot tolerate cipro and levofloxacin, these caused weakness and dizziness. She also is unclear whether she has a diagnosis of COPD.She notes a growth on her forehead new for the last couple of months, growing. FIFI HU MD [address], [place], [address], [facility]. 08/23/2024 13:20:08 OBGyn Episode No OBEpisode recorded.
--- OUTSIDE RECORDS SUMMARY | 2024-10-09 11:17 | XMS_ITS | Continuity of Care Document ---
Author Organization [facility] Address [address] [place] [address] Care Team Providers Care Banquet Lead Name Role Phone Rosario Bahena Primary Care Physician [phone] Encounter [facility] Date(s): 07/17/24 - 07/17/[address] [address] Discharge Disposition: Home or Self Care Attending [...] Results Laboratory List Name Date Urinalysis Microscopic 07/17/24 Urinalysis with Microscopic 07/17/24 Most recent to oldest [Reference Range]: 1 UA Color Yellow (07/17/24 2:02 PM) UA WBC [0-3] 0-3 (07/17/24 2:02 PM) UA Urobilinogen Normal (07/17/24 2:02 PM) UA Bili [Negative] Negative (07/17/24 2:02 PM) UA Ketones Negative (07/17/24 2:02 PM) UA RBC [0-2] 0-2 (07/17/24 2:02 PM) UA Leuk Est Negative (07/17/24 2:02 PM) UA Nitrite Negative (07/17/24 2:02 PM) UA Glucose [Negative] Negative (07/17/24 2:02 PM) UA Bacteria None Seen /HPF (07/17/24 2:02 PM) UA Protein Negative (07/17/24 2:02 PM) UA Blood Negative (07/17/24 2:02 PM) UA Mucous None Seen /HPF (07/17/24 2:02 PM) UA Spec Grav 1.025 *NA* (07/17/24 2:02 PM) UA Squam Epithelial [None Seen] Rare (07/17/24 2:02 PM) UA pH 5.5 *NA* (07/17/24 2:02 PM) UA Appear Clear (07/17/24 2:02 PM) UA Culture Ind?. Not Indicated (07/17/24 2:02 PM) Orders for Microbiology Reports Name Date Urine Culture 07/17/24 Microbiology Reports TEST:Urine Culture STATUS:Order in Progress BODY SITE: SOURCE:Urine, Clean Catch COLLECTED DATE/TIME:07/17/24 2:02 PM PRELIMINARY REPORT No growth at 24 hours. Social History Social History Type Response Tobacco Former tobacco user Tobacco Use:. Sex Female Sex Representation Female (finding) Patient Care team information Care Team Personnel Name: Rosario Bahena MD Position: No Access Member Role: Informed Provider Address: [address] [place] [address] Care Team Related Persons Name: JESUS RAMSEY Insurance Providers Guarantor name: TONA BAEZ Health Plan Information #: 2 Payer: [facility] MEDICAID Member Number: [id number] Policy Number: NA Health Plan Information #: 1 Payer: MEDICARE B [employer] Member Number: [id number] Policy Number: NA
--- OUTSIDE RECORDS SUMMARY | 2024-10-09 11:17 | XMS_ITS | Continuity of Care Document ---
Author Organization [facility] Address [address] [place] [address] Care Team Providers Care Electrical Construction Project Manager Name Role Phone Campos Lopes Primary Care Physician Encounter [facility] [id number] Date(s): 07/29/23 - 07/29/[address] [address] Discharge Disposition: Home or Self Care Attending [...] Results Laboratory List Name Date Urinalysis Microscopic 07/29/23 Urinalysis with Microscopic 07/29/23 Cortisol [facility] 07/29/23 Most recent to oldest [Reference Range]: 1 UA Color Yellow (07/29/23 9:23 AM) UA WBC [0-3] 0-3 (07/29/23 9:23 AM) UA Urobilinogen Normal (07/29/23 9:23 AM) UA Bili [Negative] Negative (07/29/23 9:23 AM) UA Ketones Negative (07/29/23 9:23 AM) UA RBC [0-2] 0-2 (07/29/23 9:23 AM) UA Leuk Est Negative (07/29/23 9:23 AM) UA Nitrite Negative (07/29/23 9:23 AM) UA Glucose [Negative] Negative (07/29/23 9:23 AM) UA Bacteria None Seen /HPF (07/29/23 9:23 AM) UA Protein Negative (07/29/23 9:23 AM) UA Blood Trace *ABN* (07/29/23 9:23 AM) UA Mucous None Seen /HPF (07/29/23 9:23 AM) UA Spec Grav 1.020 *NA* (07/29/23 9:23 AM) UA Squam Epithelial [None Seen] Rare (07/29/23 9:23 AM) UA pH 6.5 *NA* (07/29/23 9:23 AM) UA Appear Clear (07/29/23 9:23 AM) UA Culture Ind?. Not Applicable (07/29/23 9:23 AM) Cortisol [facility] [See Note mcg/dL] 10 mcg/dL 1 *NA* (07/29/23 9:02 AM) 1Result Comment: NOTE: Reference Ranges (from [facility]): Collected Before 10:00 AM: 4 - 23 ug/dL Collected After 5:00 PM: 2 - 14 ug/dL The results of this assay can be falsely elevated due to the consumption of Biotin. Test performed [place] [address] Orders for Microbiology Reports Name Date Urine Culture 07/29/23 Microbiology Reports TEST:Urine Culture STATUS:Order in Progress BODY SITE: SOURCE:Urine, Clean Catch COLLECTED DATE/TIME:07/29/23 9:23 AM PRELIMINARY REPORT <10,000 cfu/ml Gram Negative Bacilli Social History Social History Type Response Tobacco Never tobacco user T obacco Use:. Sex Female Patient Care team information Care Team Personnel Name: Campos Lopes MD Position: No Access Member Role: Informed Provider Address: Address: [address] [place] [address] [place] Care Team Related Persons Name: JESUS RAMSEY
--- OUTSIDE RECORDS SUMMARY | 2024-10-09 11:17 | XMS_ITS | Continuity of Care Document ---
Author Organization [facility] Address [address] [place] [address] Care Team Providers Care Tree Trimming Line Technician Name Role Phone MosesCampos Primary Care Physician [phone] Encounter [facility] Date(s): 08/06/23 - 08/06/[address] [address] Discharge Disposition: Home or Self Care Attending Physician: Rajan Sanchez MD Admitting Physician: Rajan Sanchez MD Allergies, Adverse Reactions, [...] Plan Diagnostic Tests Pending * Urine Culture 08/06/23 Immunizations Given and Recorded Vaccine Date Status [...] Results Laboratory List Name Date Urinalysis with Micro if Indicated and C ulture if Indicated 08/06/23 Most recent to oldest [Reference Range]: 1 UA Color Yellow (08/06/23 4:35 PM) UA Urobilinogen Normal (08/06/23 4:35 PM) UA Bili [Negative] Negative (08/06/23 4:35 PM) UA Ketones Negative (08/06/23 4:35 PM) UA Leuk Est Negative (08/06/23 4:35 PM) UA Nitrite Negative (08/06/23 4:35 PM) UA Glucose [Negative] Negative (08/06/23 4:35 PM) UA Protein Negative (08/06/23 4:35 PM) UA Blood Negative (08/06/23 4:35 PM) UA Spec Grav 1.020 *NA* (08/06/23 4:35 PM) UA pH 6.5 *NA* (08/06/23 4:35 PM) UA Appear Clear (08/06/23 4:35 PM) Social History Social History Type Response Tobacco Never tobacco user T obacco Use:. Sex Female Patient Care team information Care Team Personnel Name: Campos Lopes MD Position: No Access Member Role: Informed Provider Address: Address: [address] [place] [address] [place] Care Team Related Persons Name: JESUS RAMSEY
--- OUTSIDE RECORDS SUMMARY | 2024-10-09 11:17 | XMS_ITS | Continuity of Care Document ---
Author Organization [facility] Address [address] [place] [address] Care Team Providers Care Stablehand Name Role Phone MosesCampos rascon Primary Care Physician Encounter [facility] [id number] Date(s): 02/09/23 - 02/09/[address] [address] Discharge Disposition: Home or Self Care Attending [...] if Indicated and C ulture if Indicated 02/09/23 Most recent to oldest [Reference Range]: 1 UA Color Yellow (02/09/23 10:00 AM) UA Urobilinogen Normal (02/09/23 10:00 AM) UA Bili [Negative] Negative (02/09/23 10:00 AM) UA Ketones Negative (02/09/23 10:00 AM) UA Leuk Est Negative (02/09/23 10:00 AM) UA Nitrite Negative (02/09/23 10:00 AM) UA Glucose [Negative] Negative (02/09/23 10:00 AM) UA Protein Negative (02/09/23 10:00 AM) UA Blood Negative (02/09/23 10:00 AM) UA Spec Grav 1.025 *NA* (02/09/23 10:00 AM) UA pH 5.5 *NA* (02/09/23 10:00 AM) UA Appear Clear (02/09/23 10:00 AM) Orders for Microbiology Reports Name Date Urine Culture 02/09/23 Microbiology Reports TEST:Urine Culture STATUS:Order in Progress BODY SITE: SOURCE:Urine COLLECTED DATE/TIME:02/09/23 10:00 AM PRELIMINARY REPORT No growth at 24 hours. Social History Social History Type Response Tobacco Former tobacco user Tobacco Use:. Sex Female Patient Care team information Care Team Personnel Name: Campos Lopes MD Position: No Access Member Role: Informed Provider Address: Address: Internal Medicine [address] [place] [address] [place] [facility] [place] [address]- Care Team Related Persons Name: JESUS RAMSEY Address: Home
--- OUTSIDE RECORDS SUMMARY | 2024-10-09 11:17 | XMS_ITS | Continuity of Care Document ---
Author Organization [facility] Address [address] [place] [address] Care Team Providers Care Research Quality Assurance Specialist Name Role Phone Rosario Bahena Primary Care Physician Encounter [facility] Date(s): 09/20/24 - 09/20/[address] [address] Discharge Disposition: Home or Self Care Attending [...] Results Laboratory List Name Date Free T4 09/20/24 Thyroid Stimulating Hormone 09/20/24 Urinalysis Microscopic 09/20/24 Urinalysis with Microscopic 09/20/24 Most recent to oldest [Reference Range]: 1 UA Color Yellow (09/20/24 12:32 PM) UA WBC [0-3] 5-10 (09/20/24 12:32 PM) UA Urobilinogen Normal (09/20/24 12:32 PM) T4 Free [0.76-1.46 ng/dL] 1.07 ng/dL (09/20/24 12:32 PM) UA Bili [Negative] 1+ *ABN* (09/20/24 12:32 PM) UA Ketones Negative (09/20/24 12:32 PM) UA RBC [0-2] 0-2 (09/20/24 12:32 PM) UA Leuk Est Trace *ABN* (09/20/24 12:32 PM) UA Nitrite Positive *ABN* (09/20/24 12:32 PM) UA Glucose [Negative] Negative (09/20/24 12:32 PM) UA Bacteria Moderate /HPF *ABN* (09/20/24 12:32 PM) UA Protein Trace *ABN* (09/20/24 12:32 PM) UA Blood Trace-Intact *ABN* (09/20/24 12:32 PM) UA Mucous None Seen /HPF (09/20/24 12:32 PM) UA Spec Grav 1.025 (09/20/24 12:32 PM) UA Squam Epithelial [None Seen] Rare (09/20/24 12:32 PM) TSH [0.358-3.740 mcIntlUnit/mL] 1.421 mc IntlUnit/mL 1 (09/20/24 12:32 PM) UA pH 6.0 (09/20/24 12:32 PM) UA Appear Clear (09/20/24 12:32 PM) UA Culture Ind?. Indicated (09/20/24 12:32 PM) 1Result Comment: Result verified by repeat analysis Orders for Microbiology Reports Name Date Urine Culture 09/20/24 Microbiology Reports TEST:Urine Culture STATUS:Order in Progress BODY SITE: SOURCE:Urine, Clean Catch COLLECTED DATE/TIME:09/20/24 12:32 PM PRELIMINARY REPORT >100,000 cfu/ml Klebsiella pneumoniae Susceptibility to follow. Social History Social History Type Response Tobacco Former tobacco user Tobacco Use:. Sex Female Sex Representation Female (finding) Patient Care team information Care Team Personnel Name: Rosario Bahena MD Position: No Access Member Role: Informed Provider Address: [address] [place] [address]- Care Team Related Persons Name: JESUS RAMSEY Insurance Providers Guarantor name: TONA BAEZ Health Plan Information #: 1 Payer: [employer]IC[employer] Member Number: [id number] Policy Number: NA Health Plan Information #: 2 Payer: [facility] MEDICAID Member Number: [id number] Policy Number: NA
--- OUTSIDE RECORDS SUMMARY | 2024-10-09 11:17 | XMS_ITS | Continuity of Care Document ---
Author Organization [facility] Address [address] [place] [address] Care Team Providers Care Fisher Eel Spear Name Role Phone MosesCampos Primary Care Physician Encounter [facility] [id number] Date(s): 01/19/24 - 01/19/[address] [address] Discharge Disposition: Home or Self Care Attending [...] Laboratory List Name Date Basic Metabolic Panel 01/19/24 Free T4 01/19/24 Thyroid Stimulating Hormone 01/19/24 Most recent to oldest [Reference Range]: 1 BUN [7-18 mg/dL] 19 mg/dL *HI* (01/19/24 3:10 PM) Glucose Level [74-106 mg/dL] 92 mg/dL 1 (01/19/24 3:10 PM) Potassium Level [3.5-5.1 mmol/L] 4.2 mmo l/L (01/19/24 3:10 PM) T4 Free [0.76-1.46 ng/dL] 0.95 ng/dL (01/19/24 3:10 PM) Sodium Level [136-145 mmol/L] 141 mmol/L (01/19/24 3:10 PM) Calcium Level [8.5-10.1 mg/dL] 8.7 mg/dL (01/19/24 3:10 PM) CO2 [21-32 mmol/L] 30 mmol/L (01/19/24 3:10 PM) TSH [0.358-3.740 mcIntlUnit/mL] 3.903 mc IntlUnit/mL *HI* (01/19/24 3:10 PM) eGFR Non-AA [>=60] 59 *LOW* (01/19/24 3:10 PM) eGFR AA [>=60] 59 *LOW* (01/19/24 3:10 PM) Chloride Level [98-107 mmol/L] 105 mmol/ L (01/19/24 3:10 PM) Creatinine Level [0.55-1.02 mg/dL] 0.97 mg/dL (01/19/24 3:10 PM) 1Result Comment: Sample appears lipemic, results may be affected Social History Social History Type Response Tobacco Never tobacco user T obacco Use:. Sex Female Patient Care team information Care Team Personnel Name: Campos Lopes MD Position: No Access Member Role: Informed Provider Address: Address: [address] [place] [phone] Care Team Related Persons Name: JESUS RAMSEY
--- OUTSIDE RECORDS SUMMARY | 2024-10-09 11:17 | XMS_ITS | Continuity of Care Document ---
Author Organization [facility] Address [address] [place] [address] Care Team Providers Care Account Engineer Name Role Phone MosesCampso Primary Care Physician Encounter [facility] Date(s): 07/21/23 - 07/21/[address] [address] Discharge Disposition: Home or Self Care Attending [...] 12/12/17 Completed Results Laboratory List Name Date Calcium Level Total 07/21/23 PTH Intact [facility] 07/21/23 Vitamin D, 25-OH Total [facility] 07/21/23 Most recent to oldest [Reference Range]: 1 Calcium Level [8.5-10.1 mg/dL] 8.8 mg/dL (07/21/23 2:34 PM) PTH Intact [facility] [19-88 pg/mL] 29 pg/mL 1 *NA* (07/21/23 2:34 PM) Vitamin D, 25-OH, Total [facility] [30-100 ng/m L] 31 ng/mL 2 *NA* (07/21/23 2:34 PM) 1Result Comment: Test performed [place] [address] 2Result Comment: Vitamin D 25,OH Interpretive Ranges: Deficiency: <10.0 ng/mL Insufficiency: 10.0 - 30.0 ng/mL Sufficiency: 30.0 - 100.0 ng/mL Toxicity: >100.0 ng/mL Test performed [place] [address] Social History Social History Type Response Tobacco Never tobacco user T obacco Use:. Sex Female Patient Care team information Care Team Personnel Name: Campos Lopes MD Position: No Access Member Role: Informed Provider Address: Address: [address] [place] [phone] [place] Care Team Related Persons Name: JESUS RAMSEY
--- OUTSIDE RECORDS SUMMARY | 2024-10-09 11:17 | XMS_ITS | Continuity of Care Document ---
Author Organization [facility] Address [address] [place] [address] Care Team Providers Care Respiratory Services Manager Name Role Phone Campos Lopes Primary Care Physician Encounter [facility] [id number] Date(s): 04/19/23 - 04/19/[address] [address] Discharge Disposition: Home or Self Care Attending [...] Results Laboratory List Name Date Urinalysis Microscopic 04/19/23 Urinalysis with Microscopic 04/19/23 Most recent to oldest [Reference Range]: 1 UA Color Yellow (04/19/23 8:00 AM) UA WBC [0-3] 50-100 *ABN* (04/19/23 8:00 AM) UA Urobilinogen Normal (04/19/23 8:00 AM) UA Bili [Negative] Negative (04/19/23 8:00 AM) UA Ketones Negative (04/19/23 8:00 AM) UA RBC [0-2] 0-2 (04/19/23 8:00 AM) UA Leuk Est 2+ *ABN* (04/19/23 8:00 AM) UA Nitrite Negative (04/19/23 8:00 AM) UA Glucose [Negative] Negative (04/19/23 8:00 AM) UA Bacteria Moderate /HPF *ABN* (04/19/23 8:00 AM) UA Protein Negative (04/19/23 8:00 AM) UA Blood Trace *ABN* (04/19/23 8:00 AM) UA Mucous None Seen /HPF (04/19/23 8:00 AM) UA Spec Grav 1.020 *NA* (04/19/23 8:00 AM) UA Squam Epithelial [None Seen] Rare (04/19/23 8:00 AM) UA pH 6.5 *NA* (04/19/23 8:00 AM) UA Appear Hazy *ABN* (04/19/23 8:00 AM) UA Culture Ind?. Not Applicable (04/19/23 8:00 AM) Orders for Microbiology Reports Name Date Urine Culture 04/19/23 Microbiology Reports TEST:Urine Culture STATUS:Order in Progress BODY SITE: SOURCE:Urine, Clean Catch COLLECTED DATE/TIME:04/19/23 8:00 AM PRELIMINARY REPORT >100,000 cfu/ml Klebsiella pneumoniae Susceptibility to follow. Social History Social History Type Response Tobacco Former tobacco user Tobacco Use:. Sex Female Patient Care team information Care Team Personnel Name: Campos Lopes MD Position: No Access Member Role: Informed Provider Address: Address: [address] [place] [phone] [place] Care Team Related Persons Name: JESUS RAMSEY Address: Home
--- OUTSIDE RECORDS SUMMARY | 2024-10-09 11:17 | XMS_ITS | Continuity of Care Document ---
Author Organization [facility] Address [address] [place] [address] Care Team Providers Care Ultrasound Applications Specialist Name Role Phone Rosario Bahena Primary Care Physician Encounter [facility] Date(s): 06/20/24 - 06/20/[address] [address] Discharge Disposition: Home or Self Care Attending [...] 12/12/17 Completed Results Laboratory List Name Date Comprehensive Metabolic Panel 06/20/24 Magnesium Level 06/20/24 Most recent to oldest [Reference Range]: 1 BUN [7-18 mg/dL] 18 mg/dL (06/20/24 11:22 AM) Glucose Level [74-106 mg/dL] 85 mg/dL (06/20/24 11: AM) Potassium Level [3.5-5.1 mmol/L] 4.5 mmo l/L (06/20/24 11:22 AM) AST [15-37 unit/L] 17 unit/L (06/20/24 11: AM) ALT [14-59 unit/L] 20 unit/L (06/20/24 11: AM) Sodium Level [136-145 mmol/L] 144 mmol/L (06/20/24 11:22 AM) Calcium Level [8.5-10.1 mg/dL] 8.9 mg/dL (06/20/24 11: AM) Albumin Level [3.4-5.0 g/dL] 3.7 g/dL (06/20/24 11:22 AM) Protein Total [6.4-8.2 g/dL] 7.2 g/dL (06/20/24 11: AM) Magnesium Level [1.8-2.4 mg/dL] 1.9 mg/d L (06/20/24 11:22 AM) Bilirubin Total [0.2-1.0 mg/dL] 0.6 mg/d L (06/20/24 11:22 AM) Alk Phos [46-146 unit/L] 66 unit/L (06/20/24 11:22 AM) CO2 [21-32 mmol/L] 28 mmol/L (06/20/24 11:22 AM) eGFR Non-AA [>=60] 87 (06/20/24 11:22 AM) eGFR AA [>=60] 87 (06/20/24 11:22 AM) Chloride Level [98-107 mmol/L] 108 mmol/ L *HI* (06/20/24 11:22 AM) Creatinine Level [0.55-1.02 mg/dL] 0.69 mg/dL (06/20/24 11:22 AM) Social History Social History Type Response Tobacco Former tobacco user Tobacco Use:. Sex Female Sex Representation Female (finding) Patient Care team information Care Team Personnel Name: Rosario Bahena MD Position: No Access Member Role: Informed Provider Address: [address] [place] [address] Care Team Related Persons Name: JESUS RAMSEY Insurance Providers Guarantor name: TONA BAEZ Health Plan Information #: 2 Payer: [facility] MEDICAID Member Number: [id number] Policy Number: JESSE Health Plan Information #: 1 Payer: MEDICARE [employer] Member Number: [id number] Policy Number: [id number]
--- OUTSIDE RECORDS SUMMARY | 2024-10-09 11:17 | XMS_ITS | Continuity of Care Document ---
Author Organization [facility] Address [address] [place] [address] Care Team Providers Care Hobber Name Role Phone MosesCampos Primary Care Physician Encounter [facility] [id number] Date(s): 08/19/23 - 08/19/[address] [address] Discharge Disposition: Home or Self Care Attending [...] Plan Diagnostic Tests Pending * Urine Culture 08/19/23 Immunizations Given and Recorded Vaccine Date Status [...] Results Laboratory List Name Date Urinalysis Microscopic 08/19/23 Urinalysis with Microscopic 08/19/23 Most recent to oldest [Reference Range]: 1 UA Color Yellow (08/19/23 10:01 AM) UA WBC [0-3] 0-3 (08/19/23 10:01 AM) UA Urobilinogen Normal (08/19/23 10:01 AM) UA Bili [Negative] Negative (08/19/23 10:01 AM) UA Ketones Negative (08/19/23 10:01 AM) UA Ca Ox Crystal Few /HPF (08/19/23 10:01 AM) UA RBC [0-2] 0-2 (08/19/23 10:01 AM) UA Leuk Est Negative (08/19/23 10:01 AM) UA Nitrite Negative (08/19/23 10:01 AM) UA Glucose [Negative] Negative (08/19/23 10:01 AM) UA Bacteria None Seen /HPF (08/19/23 10:01 AM) UA Protein Negative (08/19/23 10:01 AM) UA Blood Trace *ABN* (08/19/23 10:01 AM) UA Mucous None Seen /HPF (08/19/23 10:01 AM) UA Spec Grav 1.020 *NA* (08/19/23 10:01 AM) UA Squam Epithelial [None Seen] None See n (08/19/23 10:01 AM) UA pH 5.5 *NA* (08/19/23 10:01 AM) UA Appear Clear (08/19/23 10:01 AM) UA Culture Ind?. Not Applicable (08/19/23 10:01 AM) Social History Social History Type Response Tobacco Never tobacco user T obacco Use:. Sex Female Patient Care team information Care Team Personnel Name: Campos Lopes MD Position: No Access Member Role: Informed Provider Address: Address: [address] [place] [phone] Care Team Related Persons Name: JESUS RAMSEY
--- OUTSIDE RECORDS SUMMARY | 2024-10-09 11:17 | XMS_ITS | Continuity of Care Document ---
Author Organization [facility] Address [address] [place] [address] Care Team Providers Care City Planning Teacher Name Role Phone MosesCampos Primary Care Physician [phone] Encounter [facility] Date(s): 09/10/23 - 09/10/[address] [address] Discharge Disposition: Home or Self Care Attending [...] Plan Diagnostic Tests Pending * Urine Culture 09/10/23 Immunizations Given and Recorded Vaccine Date Status [...] Results Laboratory List Name Date Urinalysis Microscopic 09/10/23 Urinalysis with Microscopic 09/10/23 Most recent to oldest [Reference Range]: 1 UA Color Yellow (09/10/23 12:41 PM) UA WBC [0-3] 0-3 (09/10/23 12:41 PM) UA Urobilinogen Normal (09/10/23 12:41 PM) UA Bili [Negative] Negative (09/10/23 12:41 PM) UA Ketones Negative (09/10/23 12:41 PM) UA Ca Ox Crystal Few /HPF (09/10/23 12:41 PM) UA RBC [0-2] 0-2 (09/10/23 12:41 PM) UA Leuk Est Negative (09/10/23 12:41 PM) UA Nitrite Negative (09/10/23 12:41 PM) UA Glucose [Negative] Negative (09/10/23 12:41 PM) UA Bacteria None Seen /HPF (09/10/23 12:41 PM) UA Protein Negative (09/10/23 12:41 PM) UA Blood Negative (09/10/23 12:41 PM) UA Mucous None Seen /HPF (09/10/23 12:41 PM) UA Spec Grav >=1.030 *NA* (09/10/23 12:41 PM) UA Squam Epithelial [None Seen] Rare (09/10/23 12:41 PM) UA pH 5.5 *NA* (09/10/23 12:41 PM) UA Appear Clear (09/10/23 12:41 PM) UA Culture Ind?. Not Applicable (09/10/23 12:41 PM) Social History Social History Type Response Tobacco Never tobacco user T obacco Use:. Sex Female Patient Care team information Care Team Personnel Name: Campos Lopes MD Position: No Access Member Role: Informed Provider Address: Address: [address] [place] [phone] [place] Care Team Related Persons Name: JESUS RAMSEY
--- OUTSIDE RECORDS SUMMARY | 2024-10-09 11:17 | XMS_ITS | Continuity of Care Document ---
Author Organization [facility] Address [address] [place] [address] Care Team Providers Care Residential Supervisor Name Role Phone Rosario Bahena Primary Care Physician Encounter [facility] Date(s): 06/07/24 - 06/07/[address] [phone] Discharge Disposition: Home or Self Care Attending Physician: Jayashree Perdomo Admitting Physician: Jayashree Perdomo Referring Physician: Jayashree Perdomo Allergies, Adverse Reactions, Alerts No Known Medication [...] for Microbiology Reports Name Date Urine Culture 06/07/24 Microbiology Reports TEST:Urine Culture STATUS:Order in Progress BODY SITE: SOURCE:Urine COLLECTED DATE/TIME:06/07/24 12:56 PM PRELIMINARY REPORT <10,000 cfu/ml Gram Negative Bacilli Social History Social History Type Response Tobacco Former tobacco user Tobacco Use:. Sex Female Sex Representation Female (finding) Patient Care team information Care Team Personnel Name: Rosario Bahena MD Position: No Access Member Role: Informed Provider Address: [address] [place] [address] Care Team Related Persons Name: JESUS RAMSEY Insurance Providers Guarantor name: TONA BAEZ Health Plan Information #: 2 Payer: [facility] MEDICAID Member Number: [id number] Policy Number: NA Health Plan Information #: 1 Payer: MEDICARE B [email or web address] Member Number: [id number] Policy Number: NA
--- OUTSIDE RECORDS SUMMARY | 2024-10-09 11:18 | XMS_ITS | Continuity of Care Document ---
Author Organization [facility], [facility] Address [address] [place] [address] Care Team Providers Care Window Covering Sales Consultant Name Role Phone DEEDEE MELENDEZ Dentist FIFI HU Primary Care Provider [phone] Assessment Encounter Date Assessment Date Assessment LastModified by Organization Details LastModified Time 08/22/2024 08/22/2024 The total time devoted to today's encounter, including both the qfqg-zi-chly time with the patient and/or family/caregi mando and nxo-jond-xe-f mehreen time I personally spent is 50 minutes. Not available 08/23/2024 13:19:25 Plan of Treatment Reminders Order Date Submit Date Provider Last Modified By Organization Details Last Modified Time Details Appointments Acute 20 2023 08:40A M JOSHUA GONZALEZ Not available Not available Not available Lab None recorded. Referral dermatolo gist referral - new ~8mm nodule on forehead erythemat ous, growing x 2 months, umbilicat ed, rebecca starr for BCC 2023 024 [email or web address] [facility], [address] [place] [address], [address], 10/08/2024 15:34:05 Procedures None recorded. Surgeries None recorded. Imaging None recorded. Medication Orders None recorded. Patient TargetsNo targets recorded. 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 post surgical 2/2 thyroide ctomy for hyperthy roidism MD Amrita [address], [place], [address] , [facility] 4 16:59:53 Pure hypercho lesterol emia 453901050 [facility] 4 17:04:43 Nonspeci fic tubercul in test reaction 367179270 Active 2001 Estefania Carney [facility] 4 17:03:23 Chronic intersti tial cystitis 455555966 Active 2001 Estefania Rommel [facility] 4 17:02:40 Asthma 848971668 Completed 200111/10/2001 Problem Code: 493.9; Problem Code Type: ICD-9; Not Available [facility] 3 04:12:13 Disorder of lung 32618874 Completed 200111/10/2001 Problem Code: 518.89; Problem Code Type: ICD-9; Not Available [facility] 3 04:12:13 Vitamin D deficien cy 10992337 Completed 201102/20/2012 Not Available [facility] 3 04:12:13 Pain in right hand 64136735397 9109 Completed 201512/10/2015 Problem Code: M79.641; Problem Code Type: ICD-10; Not Available [facility] 3 04:12:13 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, [facility]. 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 4 17:02:20 Asteatos is cutis 67694673 Active 2017 [facility], [facility] 4 17:02:24 Gastroes ophageal reflux disease without esophagi tis 696189265 [facility] 4 17:03:03 Screenin g for malignan t neoplasm of colon Active 2018 [facility], [facility]. 4 17:04:47 Blephari tis 40136708 Completed 201908/22/[address], [place], [address] , [facility] 4 16:50:15 Low back pain 288837076 Active 2019 Estefania Sesangoumou [facility], [facility]. 4 17:03:18 Chronic obstruct osman pulmonar y disease 42652662 Active 2020 FEV1/FVC 54% MD Amrita [address], [place], [address] , [facility]. 4 16:55:46 Chronic rhinitis 26836175 Active 2020 Estefania sangoumou [place], [facility]. 4 17:02:49 Atrophic vaginiti s 81029344 Active 2021 Estefania alford, [facility]. 4 17:02:28 Diabetes mellitus screenin g Completed 202107/03/2022 Problem Code: Z13.1; Problem Code Type: ICD-10; Not Available [facility] 3 04:12:16 Pelvic and perineal pain 848828021 Active 2022 Estefaniaher Rommel [place], [facility] 4 17:04:31 Disorder of sacrum 36610631 Active 2022 Estefaniaher Rommel [place], [facility] 4 17:03:58 Tremor 30566650 Active 2022 Estefaniaher Rommel [place], [facility] 4 17:03:30 Hypocalc emia 1282970 Completed 202212/05/2023 Problem Code: E83.51; Problem Code Type: ICD-10; GO GALVEZ MD [address], [place], [address] [facility] 4 10:19:55 Pain of left hip joint 23907224075 9100 Completed 202103/17/2023 Problem Code: M25.552; Problem Code Type: ICD-10; Not Available [facility] 3 04:12:17 Pain of right knee joint 63052994556 4100 Completed 201507/31/2018 Problem Code: M25.561; Problem Code Type: ICD-10; Not Available [facility] 3 04:12:17 Imaging result abnormal 202062064 Completed 201707/31/2018 Problem Code: R93.8; Problem Code Type: ICD-10; Not Available [facility] 3 04:12:17 Cystitis 39003167 Completed 201903/17/2023 Problem Code: N30.80; Problem Code Type: ICD-10; Not Available [facility] 3 04:12:18 Nerve root disorder 91210403 Completed 201901/26/2021 Problem Code: M54.10; Problem Code Type: ICD-10; Not Available [facility] 3 04:12:18 Atrial fibrilla tion 35511544 Completed 200107/06/2023 Problem Code: 427.31; Problem Code Type: ICD-9; Not Available [facility] 3 04:12:18 Pain of left shoulder joint 34072625669 979139 Completed Problem Code: M25.512; Problem Code Type: ICD-10; Not Available [facility] 3 04:12:18 Hypergly cemia 42266208 Completed 201609/22/2017 Problem Code: R73.9; Problem Code Type: ICD-10; Not Available [facility] 3 04:12:18 Traumati c or non-trau matic injury 332539927 Completed 201512/17/2016 Problem Code: T14.8; Problem Code Type: ICD-10; Not Available [facility] 3 04:12:18 Chronic obstruct osman airway disease with asthma 56092351253 03 Completed 201407/06/2023 Not Available [facility] 3 04:12:19 Hip pain 10340267 Completed 201807/31/2020 Problem Code: M25.559; Problem Code Type: ICD-10; Not Available [facility] 3 04:12:19 Thyrotox icosis 20567014 Completed 200107/06/2023 Problem Code: E05.80; Problem Code Type: ICD-10; Not Available [facility] 3 04:12:19 Mantoux: positive 295122384 Completed 200107/06/2023 Not Available [facility] 3 04:12:19 Uncompli cated mild persiste nt asthma 002934118 Completed 201401/26/2021 Problem Code: J45.30; Problem Code Type: ICD-10; Not Available [facility] 3 04:12:19 Paroxysm al atrial fibrilla tion 798015502 Completed 200101/26/2021 Problem Code: I48.0; Problem Code Type: ICD-10; Not Available [facility] 3 04:12:20 Bilsuzannea l earache 580394191 Completed 202203/17/2023 Problem Code: H92.03; Problem Code Type: ICD-10; Not Available [facility] 3 04:12:20 Foreign body granulom a of skin 4052635 Completed 201703/17/2023 Not Available [facility] 3 04:12:20 Cough 09938153 Completed 201707/31/2018 Problem Code: R05; Problem Code Type: ICD-10; MD Amrita HARVEY Dr, [address] 4 16:55:27 Chronic obstruct osman pulmonar y disease 14771209 Completed 201407/06/2023 Problem Code: J44.9; Problem Code Type: ICD-10; MD Amrita HARVEY Dr, [address] 4 16:55:46 Fracture of coccyx 868526389 Completed 201807/31/2020 Problem Code: S32.2xxG ; Problem Code Type: ICD-10; Not Available [facility] 3 04:12:21 Spasm 79113608 Completed 201803/17/2023 Problem Code: R25.2; Problem Code Type: ICD-10; Not Available [facility] 3 04:12:21 Paresthe lon 61390984 Completed 201711/22/2017 Problem Code: R20.2; Problem Code Type: ICD-10; Not Available [facility] 3 04:12:21 Fatigue 67309667 Completed 201901/26/2021 Problem Code: R53.83; Problem Code Type: ICD-10; Not Available [facility] 3 04:12:21 Dysphoni a 32801830 Completed 202103/17/2023 Problem Code: R49.0; Problem Code Type: ICD-10; Not Available [facility] 3 04:12:21 Right upper quadrant pain 134460974 Completed 201803/17/2023 Problem Code: R10.11; Problem Code Type: ICD-10; Not Available [facility] 3 04:12:22 Acute cystitis 57531687 Completed 202110/12/2022 Problem Code: N30.00; Problem Code Type: ICD-10; Not Available [facility] 3 04:12:22 Urethrit is 86242207 Completed 202203/17/2023 Problem Code: N34.2; Problem Code Type: ICD-10; FIFI HU MD [address], [place], [address] , [facility] 4 16:56:35 Localize d edema 538978277 Completed 201807/31/2020 Problem Code: R60.0; Problem Code Type: ICD-10; Not Available [facility] 3 04:12:22 Tick bite Completed 201406/24/2015 Not Available [facility] 3 04:12:23 Basal cell carcinom a of skin 175468370 Completed 201409/22/2017 Problem Code: C44.91; Problem Code Type: ICD-10; Not Available [facility] 3 04:12:23 Pain in thoracic spine 048906678 Completed 201907/31/2020 Problem Code: M54.9; Problem Code Type: ICD-10; Not Available [facility] 3 04:12:23 Abnormal gait 64801828 Completed 201607/31/2018 Problem Code: R26.89; Problem Code Type: ICD-10; Not Available [facility] 3 04:12:23 Allergic rhinitis caused by pollen 97199412 Completed 200107/06/2023 Problem Code: 477.0; Problem Code Type: ICD-9; Not Available [facility] 3 04:12:23 Pain of left hand 12923752225 9103 Completed 201502/14/2017 Problem Code: M79.642; Problem Code Type: ICD-10; Not Available [facility] 3 04:12:24 Bone density finding 074029121 Completed 201503/31/2018 Problem Code: M85.842; Problem Code Type: ICD-10; Not Available [facility] 3 04:12:24 Itching of skin 427437380 Completed 201907/31/2020 Problem Code: L29.9; Problem Code Type: ICD-10; Not Available [facility] 3 04:12:24 Solitary nodule of lung 603952934 Completed 201307/06/2023 Problem Code: 793.11; Problem Code Type: ICD-9; Not Available [facility] 3 04:12:24 Pre-surg acacia evaluati on Completed 202205/31/2023 Problem Code: Z01.818; Problem Code Type: ICD-10; Not Available [facility] 3 04:12:25 Drowsy 969259372 Completed 201603/17/2023 Problem Code: R40.0; Problem Code Type: ICD-10; Not Available [facility] 3 04:12:25 Swollen abdomen 14423016 Completed 202110/12/2022 Not Available [facility] 3 04:12:25 Pain in lower limb 97494869 Completed 201907/31/2020 Problem Code: M79.606; Problem Code Type: ICD-10; Not Available [facility] 3 04:12:25 Itching of skin 124292479 Completed 202203/17/2023 Problem Code: L29.8; Problem Code Type: ICD-10; Not Available [facility] 3 04:12:26 Urinary tract infectio us disease 22800841 Completed 202110/12/2022 Problem Code: N39.0; Problem Code Type: ICD-10; FIFI HU MD [address], [place], [address] , [facility] 4 16:48:48 Disorder of skin and/or subcutan eous tissue 76645868 Completed 201402/14/2017 Problem Code: L98.9; Problem Code Type: ICD-10; Not Available [facility] 3 04:12:26 Pain of right wrist 85300164865 9100 Completed 201707/31/2018 Problem Code: M25.531; Problem Code Type: ICD-10; Not Available [facility] 3 04:12:27 Foot pain 58467534 Completed 202103/17/2023 Problem Code: M79.673; Problem Code Type: ICD-10; Not Available [facility] 3 04:12:27 Hyperthy roidism 26622848 Completed 200107/06/2023 Not Available [facility] 3 04:12:27 Radial styloid tenosyno vitis 39148241 Completed 201603/17/2023 Problem Code: M65.4; Problem Code Type: ICD-10; Not Available [facility] 3 04:12:27 Tendinit is of right posterio r tibial tendon 26172972689 9102 Completed 201607/31/2020 Problem Code: M76.821; Problem Code Type: ICD-10; Not Available [facility] 3 04:12:28 Hyperten sive disorder 21652429 Completed 200907/06/2023 JESICA MORGAN, [facility] 4 16:05:24 Pre-surg acacia testing Completed 201703/31/2018 Problem Code: Z01.812; Problem Code Type: ICD-10; Not Available [facility] 3 04:12:28 Lumbago with sciatica 728863332 Completed 201901/26/2021 Problem Code: M54.40; Problem Code Type: ICD-10; Not Available [facility] 3 04:12:29 Hypercho lesterol emia 71788032 Completed 200107/06/2023 Not Available [facility] 3 04:12:29 Recurren t urinary tract infectio n 061995421 Active 2022 ROSALINDA CONCEPCION MD [address], [place], [address] , [facility] 3 10:09:04 Thyroide ctomy Completed 202202/15/2024 Estefaniaher Carney null, [facility] 4 17:04:51 Chronic low back pain 720383761 Active 2022 Estefaniaher Carney null, [facility] 4 17:03:50 Neuropat hy 285831686 Active 2023 Estefania Rommel null, [facility] 4 17:04:26 Muscle pain 60558769 Active 2023 Estefania Rommel null, [facility] 4 17:04:24 Intermit tent claudica tion 90996900 Active 2023 Estefaniaher Carney null, [facility] 4 17:04:12 Abdomina l muscle pain 52301938948 103 Completed 202308/22/2024 FIFI HU MD [address], [place], [address] , [facility] 4 16:56:31 Problem Notes None recorded. Medical Equipment None Reported. Allergies Allergen ID Allergen Name Allergen Category Reaction Reaction Severity Criticality Documentation Date Start Date Code Code System Note Provider Name and Address Organization Details Recorded Time 68800 Iodinated contrast media (substanc e) medicatio n flushing moderate Not available 08/19/20232003 64176 2003 SNOMED flush ing Aller gyNam e: 'IVP DYE'; Not Available [facility] 3 16:22:19 50505 iodine medicatio n flushing Not available Not available 08/19/20232002 5933 RxNorm flush ing Not Available [facility] 3 16:22:19 48435 epinephri ne medicatio n Not available Not available [facility] 09/06/2023 3992 RxNorm JÚNIOR SORIANO RN null, [facility] 3 09:02:42 39659 lisinopri l medicatio n Not available Not available [facility] 09/06/20232022 42062 RxNorm JÚNIOR SORIANO RN null, [facility] 3 09:03:14 25225 losartan medicatio n Not available Not available [facility] 09/06/20232022 81090 RxNorm JÚNIOR SORIANO RN null, [facility] 3 09:03:34 94577 shellfish derived food,medi cation Not available Not available [facility] 09/06/20232022 JÚNIOR SORIANO RN null, [facility] 3 15:24:41 59823 Elmiron medicatio n myalgias (muscle pain) mild low 09/13/2023 20786 3 RxNorm ROSALINDA CONCEPCION MD [address], [place], [address] [place] [address] 3 10:07:17 83695 levothyro xine sodium medicatio n Not available Not available Not available 12/05/2023 99238 RxNorm TRACEY VEGA MA null, [facility] 4 09:09:34 62269 Medicinal product containin g quinolone and acting as antibacte rial agent (product) medicatio n itching moderate high 05/31/2024 36033 008 SNOMED recen tly tried Cipro JUAN C GUZMAN MA null, [facility] 4 12:41:42 Medications Name Sig Start Date [...] 1 tablet by mouth twice a day 12/05 /2023 completed Not Available Not Available Not Available [...] e 137 mcg (0.1 %) nasal spray [place] 2 spray into both nostrils twice a day as needed 03/29 completed Not Available Not Available Not Available Nasonex 50 mcg/actua tion [place] 2 puffs qd 12/28 completed Not Available [...] bromide 21 mcg (0.03 %) nasal spray [place] 2 spray into both nostrils twice a [...] Available Not Available Not Available Original Nasal [place] 0.05 % 1 spray in each nostril [...] No t Available Vitals Date Recorded Body temperature Oxygen saturation Oxygen saturation in Arterial blood by Pulse oximetry Heart rate Systolic blood pressure Diastolic blood pressure Provider Name and Address Organization Details Last Updated DateTime 4 97.5 [degF] 97 % 97 % 65 /min 164 mm[Hg] 90 mm[Hg] NITZA PERALTA RN [place] - [facility] 4 14:58:08 Social History Question Answer Notes LastModified by Organizat ion Details LastModified Time Tobacco Smoking Status Former Smoker Samantha Boswellchantemaureen null, [place] - [facility]. 10/09/2024 08:42:03 When Did You Quit Smoking? 16+yearssi gretta flores Information not available 10/09/2024 Would You Say That, In General, Your Health Is Good [email or web address] Information not available 08/22/2024 How Often Does Anyone, Including Family, Physically Hurt You? Never Information not available 08/22/2024 How Often Does Anyone, Including Family, Insult Or Talk Down To You? Never [email or web address] Information no t available 08/22/2024 How Often Does Anyone, Including Family, Threaten You With Harm? Never Information not available 08/22/2024 How Often Does Anyone, Including Family, Scream Or Curse At You? Never [email or web address] Information not available 08/22/2024 Within The Past 12 Months, You Worried That Your Food Would Run Out Before You Got Money To Buy More. Never True [email or web address] Information n ot available 08/22/2024 Within The Past 12 Months, The Food You Bought Just Didn't Last And You Didn't Have Money To Get More. Never True [email or web address] Information n ot available 08/22/2024 How Hard Is It For You To Pay For The Very Basics Like Food, Housing, Medical Care, And Heating? Would You Say It Is: Not Hard At All [email or web address] Information not available 08/22/2024 In The Past 12 Months, Has Lack Of Reliable Transportation Kept You From Medical Appointments, Meetings, Work Or From Getting Things Needed For Daily Living? No Car Just [email or web address] Information not available 08/22/2024 What Is Your Housing Situation Today? I Have Housing. Information not available 08/22/2024 How Often In The Past Year Have You Used Marijuana (including Smoking, Vaping, Dabbing, Or Edibles)? Never [email or web address] Information not available 08/22/2024 How Often In The Past Year Have You Used Prescription Medications That Were Not Prescribed To You? Never Information n ot available 08/22/2024 How Often In The Past Year Have You Taken Your Own Prescription Medication More Than The Way It Was Prescribed Or For Different Reasons Than Its Intended Purpose? Never [email or web address] Information no t available 08/22/2024 How Often In The Past Year Have You Used Other Drugs (for Example, Heroin, Cocaine, Meth, Salvia, Inhalants)? Never [email or web address] Information not available 08/22/2024 Have You Ever Used IV Drugs? No [email or web address] Information not available 08/22/2024 Date Of Most Recent SBINS 08/22/2024 [email or web address] Information not available 08/22/2024 What Was The Date Of Your Most Recent Tobacco Screening? 10/09/2024 Information not available 10/09/2024 Has Tobacco Cessation Counseling Been Provided? No [email or web address] Information not available 09/13/2023 How Many Years Have You Smoked Tobacco? 32 Information not available 10/09/2024 Do You Or Have You Ever Used Any Other Forms Of Tobacco Or Nicotine? No [email or web address] Information not available 09/13/2023 Sex: Female Functional [...] Time Influenza, high-dose, quadrivalent, PF 3 completed MD [address]a [address], [place], [address], [facility]. 09/13/2023 16:52:38 Pneumococcal conjugate PCV20, polysaccharide MTF167 conjugate, adjuvant, PF 4 completed MD [address]rita [address], [place], [address], [facility]. 08/23/2024 12:35:03 Tdap 5 completed Not Available [facility] 08/19/2023 06:21:40 Pneumococcal conjugate PCV 13 5 completed Not Available [facility] 08/19/2023 06:21:40 Influenza, high-dose, trivalent, PF 8 completed Not Available [facility] 08/19/2023 06:21:41 Influenza, split virus, trivalent, preservative 6 completed Not Available [facility] 08/19/2023 06:21:41 Influenza, split virus, quadrivalent, PF 0 completed Not Available [facility] 08/19/2023 06:21:41 Influenza, split virus, quadrivalent, preservative 7 completed Not Available [facility] 08/19/2023 06:21:41 Influenza, MDCK, quadrivalent, PF 9 completed Not Available [facility] 08/19/2023 06:21:41 Influenza, high-dose, quadrivalent, PF 1 completed Not Available [facility] 08/19/2023 06:21:42 Influenza, high-dose, quadrivalent, PF 2 completed Not Available [facility] 08/19/2023 06:21:42 COVID-19, mRNA, LNP-S, PF, 100 mcg/0.5mL dose or 50 mcg/0.25mL dose 1 completed Not Available [facility] 08/19/2023 06:21:42 COVID-19, mRNA, LNP-S, PF, 100 mcg/0.5mL dose or 50 mcg/0.25mL dose 1 completed Not Available [facility] 08/19/2023 06:21:42 COVID-19, mRNA, LNP-S, PF, 100 mcg/0.5mL dose or 50 mcg/0.25mL dose 2 completed Not Available [facility] 08/19/2023 06:21:42 COVID-19, mRNA, LNP-S, PF, 100 mcg/0.5mL dose or 50 mcg/0.25mL dose 1 completed Not Available [facility] 08/19/2023 06:21:42 pneumococcal polysaccharide PPV23 7 completed Not Available [facility] 08/19/2023 06:21:42 pneumococcal polysaccharide PPV23 8 completed Not Available [facility] 08/19/2023 06:21:42 Past Encounters Encounter ID Performer Location Encounter Start Date Encounter Closed Date Diagnosis/Indication Diagnosis SNOMED-CT Code Diagnosis ICD10 Code [id number] FIFI HU MD [address] [address] 08/22/2024 14:39:54 08/22/2024 15:40:17 Lesion of skin of face 1248822044 06 L98.9 Active or passive immunization 446387410 Z23 Chronic ob structive pulmonary disease 03164198 J44.9 Hypothyroidism 31589430 E03.9 Chronic in terstitial cystitis 080937332 N30.10 Recurrent urinary tract infection 939125088 N39.0 Health Concerns Section Related Observation LastModified by Organization Detai ls LastModified Time None Recorded Concern Status LastModified by Organization Details LastModified Time None Recorded Payers Encounter Date Sequence Insurance Name Policy Number Policy Hernandez Covered Member ID Hernandez Member ID Guarantor Name 08/22/2024 1 [place] [employer] Maureen Thomas [id number] Maureen Thomas 08/22/2024 2 [employer] (MEDICAID) Maureen Thomas [id number] Maureen Thomas Notes Date Note Type Note Provider Name and Address Organization Details Recorded Time 08/22/2024 text/html Here to gayle gregory care/transfer from [place] ([place] is closer) and f/u interstitial cystitis and [...] growing. FIFI HU MD [address], [place], [address], [facility]. 08/23/2024 13:20:08 OBGyn Episode No OBEpisode recorded.
--- OUTSIDE RECORDS SUMMARY | 2024-10-09 11:18 | XMS_ITS ---
Author Organization [facility] Address [address] [place] [address] Care Team Providers Care Straw Hat Presser Name Role Phone Campos Lopes Primary Care Provider Mary Mcclure [phone] Encounters Encounter Location Date Provider Diagnosis [facility] [address] [place] [address] 05/31/2024 Mary Posada Plan Of Treatment No Information Progress Notes * TONA BAEZ LDOB:[birth year] (84 yo F)Acc No.[id number]:05/31/2024 Patient:?TONA BAEZ :1940???Age:84 Y???Sex:Female Address:[address] [place] [address] * true * Date:? Generated for Renee lundberg/Nain/eTransmitting on:?10/09/2024 11:18 AM EST
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
--- OUTSIDE RECORDS SUMMARY | 2024-10-09 11:18 | XMS_ITS ---
Author Organization [facility] Address [address] [place] [address] Care Team Providers Care Necktie Stitcher Name Role Phone Campos Lopse Primary Care Provider Mary Mcclure [phone] Encounters Encounter Location Date Provider Diagnosis [facility] [address] [place] [address] 06/21/2024 Mary Posada Plan Of Treatment No Information Progress Notes * TONA BAEZ LDOB:[birth year] (84 yo F)Acc No.[id number]:06/21/2024 Patient:?TONA BAEZ :1940???Age:84 Y???Sex:Female Address:[address] [place] [address] * true * Date:? Generated for Renee lundberg/Nain/eTransmitting on:?10/09/2024 11:17 AM EST
--- OUTSIDE RECORDS SUMMARY | 2024-10-09 11:18 | XMS_ITS | Clinical Summary ---
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 Ciprofloxacin Other (See Comments) 02/17/2010 Ectopic heart beats Dye Anaphylaxis High 07/14/2015 IVP DYE Pentosan Polysulfate Sodium 07/14/2015 Unknown To pt Famotidine Other (See Comments) Low 01/24/2020 Other reaction(s): stomach upset Iodine And Iodide Containing Products Hives 02/17/2010 Lisinopril 11/24/2018 Other reaction(s): Unknown Pt does not recall Losartan Medium 12/25/2019 Other reaction(s): itchiness and redness of eyes Methimazole Other (See Comments) 07/14/2015 unknown Mirabegron Other (See Comments) Medium 10/15/2021 Nitrofurantoin Other (See Comments) High 08/23/2020 Causes bladder pain Quinolones Other (See Comments) 04/13/2023 syncope, weakness Shellfish Derived 10/22/2021 Pt is able to eat shellfish Medications ergocalciferol, vitamin D2, 2,000 unit tablet Take by mouth daily. 1000 IU Active albuterol 90 mcg/actuation inhaler Inhale 1-2 Puffs as directed every 6 hours as needed for Wheezing. Reported on 01/05/2017 Active ascorbic acid, vitamin C, 500 mg capsule every 8 hours. Acti ve fluticasone propionate (FLONASE) 50 mcg/actuation nasal spray fluticasone propionate 50 mcg/actuation nasal spray,suspension as needed Active glycopyrrolate-f ormoteroL (BEVESPI AEROSPHERE) 9-4.8 mcg HFA aerosol inhaler BEVESPI AEROSPHERE 9-4.8 MCG/ACT AERO Active ipratropium-albu teroL (DUONEB) 0.5 mg-3 mg(2.5 mg base)/3 mL nebulizer solution IPRATROPIUM-ALBU TEROL 0.5-2.5 (3) MG/3ML SOLN Active ipratropium (ATROVENT) 42 mcg (0.06 %) nasal spray USE 2 SPRAYS IN EACH NOSTRIL THREE TIMES DAILY FOR 5 DAYS Active atenoloL (TENORMIN) 25 mg tablet Take 1 Tablet by mouth daily. Active ibuprofen (MOTRIN) 600 mg tablet Take 1 Tablet by mouth every 6 hours as needed for Pain. Active pantoprazole sodium (PANTOPRAZOLE ORAL) Take by mouth. Activ e phenazopyridine (PYRIDIUM) 100 mg tablet Take 1 Tablet by mouth 3 times daily as needed for Pain. 90 Tablet Active TIROSINT 112 mcg capsuleIndicatio ns:Postoperative hypothyroidism TAKE 1 CAPSULE BY MOUTH DAILY 90 Capsule 3 Active cranberry gxdoakr-z-bzwvbr e 500-50 mg tablet,chewable Take by mouth daily. 3 tablets Active trospium (SANCTURA) 20 mg tablet Take 1 Tablet by mouth daily. Active acetylcysteine (NAC) 600 mg capsule Take 1 Capsule by mouth daily. Active terconazole (TERAZOL 7) 0.4 % vaginal cream Place 1 Applicator vaginally at bedtime. As needed for vulvar itching 45 g 2 Active lidocaine (XYLOCAINE) 2 % jelly Apply small amount externally to vulva as needed for irritation 30 mL 2 Active lidocaine (GLYDO) 2 % jelly in applicator Apply small amount intravaginally as needed for irritation. 20 mL 2 024 Active Mth-Me Blue-Sod Cfux-SaUsb-Lfn (URIBEL) 118-10-40.8-36 mg capsule Take 1 Capsule by mouth 3 times daily as needed for Other (bladder pain). 90 Capsule 1 Active amoxicillin-clav ulanate (AUGMENTIN) 250-125 mg per tablet Take 1 Tablet by mouth 3 times daily. 30 Tablet 024 Active Mth-Me Blue-Sod Djka-KqDpj-Emp (URIBEL) 118-10-40.8-36 mg capsule Take 1 Capsule by mouth 3 times daily as needed for Other (bladder pain). 30 Capsule 1 024 2023 Discontinued(R eorder) cefpodoxime (VANTIN) 100 mg tablet Take 1 Tablet by mouth 2 times daily. 14 Tablet 024 2023 Discontinued Hospital, Clinic, or Other Facility Administered Medication Ordered Dose Route Frequency Start Date End Date Status heparin 20,000 Units, methylPREDNISolone sod suc(PF) (SOLU-MEDROL) 125 mg, sodium bicarbonate 8.4 % 5 mL, lidocaine 20 mg/mL (2 %) 10 mL, sterile water (PF) 26 mL bladder irrigation BLADDER INST Once (Time Specified) 2 Active Active Problems Patient Care Coordination No te Formatting of this note migh t be different from the original. 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 Chronic obstructive pulmonary disease ([facility]) 12/01/2020 Left bundle branch block 12/01/2020 Dyspnea on exertion 09/18/2020 Chronic low back pain 09/12/2020 Cystitis cystica 09/08/2020 Gallbladder disorder 07/31/2020 Gastric mass 07/31/2020 Asthma 07/23/2020 Acute back pain with sciatica 06/23/2020 Fatigue 01/24/2020 Pruritus 12/10/2019 Unspecified blepharitis unspecified eye, unspeci fied eyelid 11/12/2019 Fracture of coccyx, subseque nt encounter for fracture with delayed healing 04/09/2019 Muscle cramps 03/19/2019 Ankle edema 01/29/2019 Gastroesophageal reflux disease 12/06/2018 Abdominal pain, right upper quadrant 11/17/2018 Postnasal drip 11/17/2018 Laryngopharyngeal reflux 10/30/2018 Overview (10/22/2021): ENT consultation with flexible laryngoscopy 10/27/2018 Acquired complex renal cyst 07/31/2018 Overview (10/22/2021): urology consult felt to be benign Chronic cough 03/31/2018 Pre-procedural laboratory examination 12/07/2017 Paresthesias 11/15/2017 Foreign body granuloma of skin 11/15/2017 Overview (10/22/2021): left heel Pain in joint 06/17/2017 Radial styloid tenosynovitis 06/17/2017 Tibialis posterior tendinitis 06/17/2017 Hyperglycemia 02/22/2017 Loss of balance 02/14/2017 Peripheral neuropathy 02/14/2017 Fracture of finger of left hand with malunion Indigestion 10/31/2015 Overview (10/22/2021): chronic Recurrent urinary tract infection 06/20/2015 Mild persistent asthma 10/14/2014 Solitary pulmonary nodule 04/29/2014 Nontoxic multinodular goiter 03/14/2012 Urinary frequency 08/03/2011 Hypertensive disorder 06/09/2009 Tremor 06/09/2009 Overview (02/17/2010): mild 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 Hypercholesterolemia 11/10/2001 Paroxysmal atrial fibrillation (HCC-CMS) 002 Perennial allergic rhinitis 11/10/2001 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 Encounters Date Type Department Care Team Description 09/18/2024 Telephone [facility] Endocrinology - [address] [phone] Ariela Woods MD Labs Only 09/05/2024 Telephone [facility] Pelvic Medicine and Reconstructive Surgery - Medical Office [address] [phone] Mary Hartley RN Prior Auth, Medication 08/23/2024 10:45 EST Telemedicine [facility] SENIOR HR MANAGER Pelvic Medicine and Reconstructive Surgery - Medical Office [address] [phone] Kelsy Fierro MD Dysuria (Primary Dx); Chronic interstitial cystitis; Urinary urgency; Recurrent urinary tract infection 08/23/2024 Telephone [facility] Pelvic Medicine and Reconstructive Surgery - Medical Office [address] [phone] Earnestine Quan, JAZIEL Orders (Non Pre-visit) 08/21/2024 Telephone [facility] Pelvic Medicine and Reconstructive Surgery - Medical Office [address] [phone] Polina Barton, JAZIEL Results 07/30/2024 Telephone [facility] Pelvic Medicine and Reconstructive Surgery - Medical Office [address] [phone] Arlene Clark, JAZIEL Results 07/27/2024 Telephone [facility] Pelvic Medicine and Reconstructive Surgery - Medical Office [address] [phone] Earnestine Quan, JAZIEL Prior Auth, Medication 07/26/2024 8:15 EDT Office Visit [facility] SENIOR HR MANAGER Pelvic Medicine and Reconstructive Surgery - Medical Office Building [facility] [address] [place] [address] Kelsy Fierro MD Interstitial cystitis (Primary Dx); Recurrent UTI 07/20/2024 Refill [facility] Endocrinology - [address] [address] Ariela Woods MD Medications Refill from Last 3 Months Immunizations Name Administration Dates Next Due Covid-19 mRNA Vaccine (MODER NA COVID-19) PF 0.5 ml IM (12 yrs+) 08/18/2021,01/05/2021,12/08/2020 Influenza Vaccine =>3yo Split IM 06/28/2016 Influenza Vaccine High Dose (FLUZONE HIGH DOSE) PF 0.7 ml IM (65 yrs+) 07/31/2018 Influenza Vaccine MDCK Quad (FLUCELVAX) PF 0.5 ml IM (6 mos+) 07/31/2019 Influenza Vaccine Quad (AFLU VAMSI) PF 0.5 ml IM (3 yrs+) 07/31/2020 Influenza Vaccine Quad (FLUZ ONE) MDV w/preserv 0.5 ml IM (6 mos+) 07/10/2019,07/31/2018,09/13/2017 Influenza Vaccine Quad High Dose (FLUZONE HIGH DOSE) PF 0.7 ml IM (65 yrs+) 07/29/2021 Pneumococcal Conjugate Vacci ne 13-Valent (PCV13) (PREVNAR-13) 0.5 mL IM (6 wks+) 06/10/2015 Pneumococcal Polysaccharide (PPSV23) Vaccine (PNEUMOVAX-23) =>2YO SQ/IM 11/15/2007,10/12/1996 Tdap Vaccine =>7YO IM 06/10/2015 Surgical History Surgery Date Site/Laterality Comments TONSILLECTOMY CARPAL TUNNEL RELEASE 10/10/2018 - 10/09/2019 Right 11/11/2020 - [facility] Medical History Medical History Date Comments Thyroid disease suppressed TSH; nml T4 and T3 Multiple thyroid nodules 1 - see 09/20/2019 Dr. melanie simon Hx of osteoporosis Urinary frequency 11/11/2020 pt discribes hyperactive bladder Activity, other involving cardiorespiratory exercise able to climb 1 FOS someti mes; gardening History of general anesthesia no complications per pt 02/17/2021 Hypertension 04/06/2023 pt denies COPD (chronic obstructive pu lmonary disease) ([facility]) well controlled with inhaler s per pt 02/17/2021 Asthma 04/06/2023 uses rescue inha ler once daily Hyperthyroidism 02/17/2021--recen t TSH w/ PCP; takes atenolol for treatment; no changes per pt 02/16/2021 GERD (gastroesophageal reflux disease) 3 meds don't work well UTI (urinary tract infection) ch ronic, last UTI last month, resolved with abx per pt 02/16/2021 Acquired complex renal cyst 07/31/2018 Basal cell carcinoma of skin 10/22/2021 Excessive daytime sleepiness 10/22/2021 Arrhythmia 04/06/2023 D/T thyroid and takes Atenolol Left bundle branch block [place] (dyspnea on exertion) Hypercholesterolemia A-fib ([facility]) Chronic cough Duodenal ulcer Gastric mass Tremor per 03/17/2023 H &P very fine mild intention tremor Excessive daytime sleepiness Reactive depression Peripheral neuropathy History of recurrent UTIs Abnormal chest CT Positive PPD Environmental allergies Family History Medical History Relation Comments *Other(comment) Neg Hx Breast Cancer Neg Hx Colon Cancer Neg Hx Colon Polyps Neg Hx Endometrial Cancer Neg Hx Esophageal Cancer Neg Hx Glaucoma Neg Hx Macular Degeneration Neg Hx Ovarian Cancer Neg Hx Pancreatic Cancer Neg Hx Rectal Cancer Neg Hx Stomach Cancer Neg Hx Relation Status Comments Father Other Mother Other Social History Tobacco Use Types Packs/Day Years Used Date Smoking Tobacco: Former Cigarettes 1 32 Passive Smoke Exposure: Never Smokeless Tobacco: Never Tobacco Cessation:Counseling Given: Not Answered Comments:late Alcohol Use Standard Drinks/Week Comments Yes 0 (1 standard drink = 0.6 oz pur e alcohol) 2/monthly Interpersonal Safety Answer Date Record ed Physically Hurt Never 05/11/2020 Verbally Threaten Not on file 05/11/2020 Comments No Sex and Gender Information Value Date Recorded Sex Assigned at Not on file Legal Sex Female 18:08 EST Gender Identity Female 02/24/2021 8:54 EDT Sexual Orientation Not on file Obstetrics History Last Filed Vital Signs Vital Sign Reading Time Taken Comments Blood Pressure 160/81 09/20/2023 1105 EST Being rushing& got loss Pulse 64 09/20/2023 1105 EST Temperature 35.9 ??C (96.6 ??F) 04/14/2023 0 614 EDT Respiratory Rate 16 04/14/2023 0614 EDT Oxygen Saturation 94% 04/14/2023 061 4 EDT Inhaled Oxygen Concentration - - Weight 78.5 kg (173 lb) 09/20/2023 1105 EST Patient didn't want to take a weight Height 165.1 cm (5' 5) 09/20/2023 1105 EST Body Mass Index 28.79 09/20/2023 1105 EST Plan of Treatment Upcoming Encounters Date Type Department Care Team (Late st Contact Info) Description 10/17/2024 10:20 EST Telemedicine [facility] Endocrinology - [facility] [address] [place], [place] [phone] Ariela Woods MD [address] [facility] [address] [place] [phone] 10/18/2024 9:15 EST Telemedicine [facility] SENIOR HR MANAGER Pelvic Medicine and Reconstructive Surgery - Medical Office Building [facility] [address] [place] [phone] Kelsy Fierro MD 2 [facility] Medical Office Building, [address] [place] [phone] Health Maintenance Due Date Last Done Comments Asthma Action Plan 1940 Copd Action Plan 1940 Lung Function Test (Spirometry) 1940 RSV Immunization ( o r 60+ Years) (1 - 1-dose 75+ series) 2017 COVID-19 Vaccine (2023-2 5 season) 2024 01/28/2022, 08/18/2021, 01/05/2021, Additional history exists Fall Risk Screening 09/20/2024 09/20/2023, 01/26/2023, 01/05/2017 Procedures Procedure Name Priority Date/Time Associated Diagnosis Comments BACTERIAL CULTURE, URINE Routine 07/26/2024 9:46 EDT Recurrent UTI POCT URINE DIPSTICK, CLINITEK Routine 07/26/2024 8:54 EDT Interstitial cystitis POCT CSN BARCODE URINE DIPSTICK Routine 07/26/2024 8:52 EDT Interstitial cystitis POCT URINE CLINITEK (DIPSTICK) - DOES NOT REFLEX Routine 07/26/2024 8:52 EDT Interstitial cystitis from Last 3 Months Results * (ABNORMAL) BACTERIAL CULTURE, URINE (07/26/2024 9:46 EDT) Organism ID Greater than 100,000 CFU/ml Klebsiella pneumoniae(A ) VITEK SUSCEPTIBILITY 07/28/2024 10:[address] [facility] Comment: Use of cefazolin is only indicated in cases of uncomplicated UTIs. Cefazolin susceptibility results can be used to predict susceptibility results for the following oral cephalosporins when used for therapy of uncomplicated UTIs due to E.coli, K.pneumoniae, and P.mirabilis: cefaclor, cefdinir, cefpodoxime, cefprozil, cefuroxime, cephalexin, loracarbef. Cefdinir, cefpodoxime, and cefuroxime may be tested individually because some isolates may be susceptibile to these agents while testing resistance to cefazolin. Please note that only cefpodoxime and cephalexin are on the [facility] inpatient formulary. ? Urine URINE SPECIMEN OBTAINED BY CLEAN CATCH PROCEDURE / Unknown Urine Collect / Unknown 07/26/2024 9:46 EDT 07/26/2024 9:46 EDT Narrative Organism Antibiotic Method Susceptibility Klebsiella pneumoniae Ampicillin VITEK SUSCEPTIBILITY >=32 ug/mL: Resistant Klebsiella pneumoniae Cefazolin VITEK SUSCEPTIBILITY >=64 ug/mL: Resistant Klebsiella pneumoniae Cefepime VITEK SUSCEPTIBILITY 2 ug/mL: Susceptible Klebsiella pneumoniae Ceftriaxone VITEK SUSCEPTIBILITY 16 ug/mL: Resistant Klebsiella pneumoniae Ciprofloxacin VITEK SUSCEPTIBILITY 1 ug/mL: Resistant Klebsiella pneumoniae Ertapenem VITEK SUSCEPTIBILITY <=0.5 ug/mL: Susceptible Klebsiella pneumoniae Meropenem VITEK SUSCEPTIBILITY <=0.25 ug/mL: Susceptible Klebsiella pneumoniae Nitrofurantoin VITEK SUSCEPTIBILITY 64 ug/mL: Intermediate Klebsiella pneumoniae Piperacillin Tazobactam VITEK SUSCEPTIBILITY <=4 ug/mL: Susceptible Klebsiella pneumoniae Trimethoprim-Sulfametho xazole VITEK SUSCEPTIBILITY >=320 ug/mL: Resistant us Kelsy Racquel Fierro MD MICROBIOLOGY - GENERAL LINDSEY ARREGUIN Final Result [facility] [address] [place] [address] * (ABNORMAL) POCT URINE DIPSTICK, CLINITEK (07/26/2024 8:54 EDT) Color, UA Yellow Yellow 07/26/2024 8:57 [facility] Clarity, UA Clear Clear 07/26/2024 8:57 [facility] Glucose, UA Negative Negative mg/dL 07/26/2024 8:57 [facility] Bilirubin, UA Negative Negative 07/26/2024 8:57 [facility] Ketones, UA Negative Negative 07/26/2024 8:57 [facility] Specific Reese, Urine 1.025 1.001 - 1.030 07/26/2024 8:57 [facility] Blood, UA Trace(A) Negative 07/26/2024 8:57 [facility] pH, UA 6.5 5.0 - 8.0 07/26/2024 8:57 [facility] Protein, UA Negative Negative mg/dL 07/26/2024 8:57 [facility] Urobilinogen, UA 0.2 0.2 - 1.0 mg/dL 07/26/2024 8:57 [facility] Nitrite, UA Positive(A) Negative 07/26/2024 8:57 [facility] Leuk Esterase Trace(A) Negative 07/26/2024 8:57 [facility] HN LAB COMMENT (CLINITEK, UR) Test performed at the [facility] 07/26/2024 8:[address] [facility] Urine URINE SPECIMEN OBTAINED BY CLEAN CATCH PROCEDURE / Unknown 07/26/2024 8:54 EDT 07/26/2024 8:57 EDT us Kelsy Fierro MD POINT OF CARE TEST ORDERABL ES Final Result Performing Organization Address [facility] de Phone Number [facility] [address] [place] [address] * POCT CSN BARCODE URINE DIPSTICK (07/26/2024 8:52 EDT) Urine URINE SPECIMEN OBTAINED BY CLEAN CATCH PROCEDURE / Unknown 07/26/2024 8:52 EDT 07/26/2024 8:52 EDT Kelsy Fierro MD LAB INFO SERVICE AND SUPPOR T & PHONE RESULT Final Result Performing Organization Address [facility] de Phone Number [facility] [address] [place] [address] from Last 3 Months [place] Advance Directives For more information, please contact: [phone] * Full Code (Latest Code Status on File) Date Activated Date Inactivated Comments 04/13/2023 15:57 04/14/2023 13:56 Question Answer Comments When the patient has NO PULSE: Full Code / CPR Who Made the Decision? Default/Not Discussed Care Teams Denture Technician Relationship Specialty Start Date End Date Campos Lopes MD [address] [place] [address] PCP - General 05/21/09
--- OUTSIDE RECORDS SUMMARY | 2024-10-09 11:18 | XMS_ITS ---
Author Organization [facility] Address [address] [place] [address] Care Team Providers Care Almond Blancher Operator Name Role Phone Campos Lopes Primary Care Provider Mary Mcclure [phone] Encounters Encounter Location Date Provider Diagnosis [facility] [address] [place] [address] 06/19/2024 Mary Posada Plan Of Treatment No Information Progress Notes * TONA BAEZ LDOB:[birth year] (84 yo F)Acc No.[id number]:06/19/2024 Patient:?TONA BAEZ :1940???Age:84 Y???Sex:Female Address:[address] [place] [phone] * true * Date:? Generated for Renee lundberg/Nain/eTransmitting on:?10/09/2024 11:18 AM EST
--- OUTSIDE RECORDS SUMMARY | 2024-10-09 11:19 | XMS_ITS | Encounter Summary ---
Author Organization [facility] Address [address] [place] [address] Care Team Providers Care Bingo Cashier Name Role Phone Campos Lopes MD Primary Care Provider Encounter Details Date Type Department Care Team (Late Contact Info) Description 11/07/2023 Lab Requisition [facility] Pathology & Laboratory Medicine - [facility] [address] [place] [address] Outr Resulting Lab, Provider Social History Tobacco Use Types Packs/Day Years Used Date Smoking Tobacco: Former Cigarettes 1 32 Smokeless Tobacco: Never Comments:late Alcohol Use Standard Drinks/Week Comments Yes [...] 8:54 EDT Sexual Orientation Not on file documented as of this encounter Functional Status * Are you deaf or do you have serious difficulty hearing? Answer Date of Assessment Author No 04/13/2023 16:00 Chari Parker RN * Are you blind or do you have serious difficulty seeing, even when wearing glasses? Answer Date of Assessment Author No 04/13/2023 16:00 Chari Parker RN * Do you have serious difficulty walking or climbing stairs? (5 years old or older) Answer Date of Assessment Author No 04/13/2023 16:00 Chari Parker RN * Do you have difficulty dressing or bathing? (5 years old or older) Answer Date of Assessment Author No 04/13/2023 16:00 Chari Parker RN * Because of a physical, mental, or emotional condition, do you have difficulty doing errands alone such as visiting a doctor's office or shopping? (15 years old or older) Answer Date of Assessment Author No 04/13/2023 16:00 Chari Parker RN documented as of this encounter Mental Status * Because of a physical, mental, or emotional condition, do you have serious difficulty concentrating, remembering, or making decisions? (5 years old or older) Answer Entry Date Author No 04/13/2023 16:00 Chari Parker RN documented in this encounter Plan of Treatment Upcoming Encounters Date Type Department Care Team (Late st Contact Info) Description 10/17/2024 10:20 EST Telemedicine [facility] Endocrinology - [address] [phone] Ariela Woods MD [address] [place] [phone] 10/18/2024 9:15 EST Telemedicine [facility] ULTIMATE HOOPS TRAINER Pelvic Medicine and Reconstructive Surgery - Medical Office [address] [phone] Kelsy Fierro MD [address] [place] [address] Office [facility], [address] [phone] documented as of this encounter Procedures Procedure Name Priority Date/Time Associated Diagnosis Comments PTH INTACT Routine 11/07/2023 11:39 EST documented in this encounter Results * PTH INTACT (11/07/2023 11:39 EST) Intact PTH 24 19 - 88 pg/mL 11/07/2023 22:48 EST [facility] Blood VENOUS BLOOD / Unknown 11/07/2023 11:39 EST 11/07/2023 21:38 EST us Provider Outr Resulting Lab CHEMISTRY & BLOOD GA S ORDERABLES Final Result [facility] [address] [place] [address] documented in this encounter Visit Diagnoses Not on filedocumented in this encounter Care Teams Bingo Cashier Relationship Specialty Start Date End Date Campos Lopes MD [address] [place], [place] [phone] PCP - General 05/21/09 documented as of this encounter
--- OUTSIDE RECORDS SUMMARY | 2024-10-09 11:19 | XMS_ITS | Encounter Summary ---
Author Organization [facility] Address [address] [place] [address] Care Team Providers Care Pipeline Engineer Name Role Phone Campos Lopes MD Primary Care Provider [phone] Reason for Visit * Reason Comments Medications Refill Encounter Details Date Type Department Care Team ([facility] Contact Info) Description 07/20/2024 Refill [facility] Endocrinology - [facility] [address] [place] [address] Ariela Woods MD [address] [facility] [address] [place] [address] Medications Refill Social History Tobacco Use Types Packs/Day Years [...] Date of Assessment Author No 04/13/2023 16:00 EDT Chari Noble RN * Are you blind or do [...] Chari Parker RN documented in this encounter Ordered Prescriptions Prescription Sig Dispense Quantity Refills Last Filled Start Date End Date TIROSINT 112 mcg capsuleIndications:P ostoperative hypothyroidism TAKE 1 CAPSULE BY MOUTH DAILY 90 Capsule 3 07/20/2024 documented in this encounter Plan of Treatment Upcoming Encounters Date Type Department Care Team (Late st Contact Info) Description 10/17/2024 10:20 EST Telemedicine [facility] Endocrinology - [address] [id number] Ariela Woods MD [address] [place] [phone] 10/18/2024 9:15 EST Telemedicine [facility] WORK OVER RIG OPERATOR Pelvic Medicine and Reconstructive Surgery - Medical Office Building [facility] [address] [place] [address] Kelsy Fierro MD [address] [place] [address] Medical Office [facility], [address] [phone] documented as of this encounter Visit Diagnoses Diagnosis 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 Dispense Tirosint brand for allergy to generic levothyroxine formulations and synthroid. 03/21/2024 07/20/2024 documented as of this encounter Care Teams Pipeline Engineer Relationship Specialty Start Date End Date Campos Lopes MD [address] [place] [address] PCP - General 05/21/09 documented as of this encounter
--- OUTSIDE RECORDS SUMMARY | 2024-10-09 11:19 | XMS_ITS | Encounter Summary ---
Author Organization [facility] Address [address] [place] [address] Care Team Providers Care Electrostatic Painter Name Role Phone Campos Lopes MD Primary Care Provider [phone] Reason for Visit * Reason Onset Date Comments Orders (Non Pre-visit) 10/11/2023 Encounter Details Date Type Department Care Team (Late Contact Info) Description 10/11/2023 Telephone [facility] Endocrinology - [facility] [address] [place] [address] Ariela Woods MD 62 [facility] [address] [place] [phone] Orders (Non Pre-visit) Social History Tobacco Use Types Packs/Day Years [...] Chari Parker RN documented in this encounter Miscellaneous Notes * Telephone Encounter - Dinorah Brown RN - 10/11/2023 1503 EST Printed lab orders (TSH T4 free, CBC, CMP) and faxed to [facility] [phone]. DINORAH BROWN RN 10/11/2023 15:05 * Telephone Encounter - Bronwyn Bobby - 10/11/2023 1451 EST Patient called back. Stated this is her third call today. She wanted to know if orders for labs have been sent to [facility] at [phone]. Thank You documented in this encounter Plan of Treatment Upcoming Encounters Date Type Department Care Team (Late st Contact Info) Description 10/17/2024 10:20 EST Telemedicine [facility] Endocrinology - [address] [place] [address] Ariela Woods MD 62 [facility] [address] [place] [phone] 10/18/2024 9:15 EST Telemedicine [facility] PEDIATRIC HOSPITALIST Pelvic Medicine and Reconstructive Surgery - Medical Office Building [facility] [address] [place], [place] [address] Kelsy Fierro MD 2 [facility] Medical Office [facility], [address] [place] [phone] documented as of this encounter Visit Diagnoses Not on filedocumented in this encounter Care Teams Electrostatic Painter Relationship Specialty Start Date End Date Campos Lopes MD [address] [place] [address] PCP - General 05/21/09 documented as of this encounter
--- OUTSIDE RECORDS SUMMARY | 2024-10-09 11:19 | XMS_ITS | Encounter Summary ---
Author Organization [facility] Address [address] [place] [address] Care Team Providers Care Group Home Counselor Name Role Phone Campos Lopes MD Primary Care Provider [phone] Encounter Details Date Type Department Care Team (Late st Contact Info) Description 12/05/2023 Lab Requisition [facility] Pathology & Laboratory Medicine - [facility] [address] [place] [address] Outr Resulting Lab, Provider Social History Tobacco [...] Contact Info) Description 10/17/2024 10:20 EST Telemedicine [facility] Endocrinology - [address] [address] Ariela Woods MD [address] [place] [phone] 10/18/2024 9:15 EST Telemedicine [facility] PRECISION PRINTING WORKER Pelvic Medicine and Reconstructive Surgery - Medical Office [address] [phone] Kelsy Fierro MD [address] [place] [address] Office [facility], [address] [phone] documented as of this encounter Procedures Procedure Name Priority Date/Time Associated Diagnosis Comments SPEP WITH IMMUNOTYPING PERFORMABLE Today 12/05/2023 10:00 EST SPEP WITH IMMUNOTYPING Routine 12/05/2023 10:00 EST PROTEIN, TOTAL Today 12/05/2023 10:00 EST documented in this encounter Results * SPEP WITH IMMUNOTYPING PERFORMABLE (12/05/2023 10:00 EST) Albumin % 63.4 55.8 - 66.1 % 12/08/2023 11:48 [facility] Albumin g/dL 4.4 3.6 - 5.2 g/dL 12/08/2023 11:48 [facility] Alpha-1 % 4.0 2.9 - 4.9 % 12/08/2023 11:48 [facility] Alpha-1 g/dL 0.30 0.15 - 0.40 g/dL 12/08/2023 11:48 [facility] Alpha-2 % 9.5 7.1 - 11.8 % 12/08/2023 11:48 [facility] Alpha-2 g/dL 0.70 0.50 - 1.00 g/dL 12/08/2023 11:48 [facility] Beta % 11.0 8.4 - 13.1 % 12/08/2023 11:48 [facility] Beta g/dL 0.80 0.60 - 1.20 g/dL 12/08/2023 11:48 [facility] Gamma % 12.1 11.1 - 18.8 % 12/08/2023 11:48 [facility] Gamma g/dL 0.80 0.60 - 1.60 g/dL 12/08/2023 11:48 [facility] SPEP Comment No apparent monoclonal protein seen on serum electrophoresis 12/08/2023 11:48 [facility] Comment:See scanned/suppleme ntary report. Immunotyping , Serum Current Interpretation: Negative for monoclonal immunoglobulins. Reviewed by: Jose Carlos Orta MD, PhD 12/08/2023 11:02am. 12/08/2023 11:48 [facility] Total Protein 7.0 6.3 - 8.2 g/dL 12/08/2023 11:48 [facility] Blood VENOUS BLOOD / Unknown 12/05/2023 10:00 EST 12/05/2023 21:36 EST us Provider Outr Resulting Lab CHEMISTRY & BLOOD GA S ORDERABLES Final Result Performing Organization Address [facility] de Phone Number [facility] [address] [place] [address] * PROTEIN, TOTAL (12/05/2023 10:00 EST) Blood VENOUS BLOOD / Unknown 12/05/2023 10:00 EST 12/05/2023 21:36 EST Provider Outr Resulting Lab CHEMISTRY & BLOOD GA S ORDERABLES Final Result Performing Organization Address [facility] de Phone Number [facility] [address] [place] [address] documented in this encounter Visit Diagnoses Not on filedocumented in this encounter Care Teams Group Home Counselor Relationship Specialty Start Date End Date Campos Lopes MD [address] [place] [address] PCP - General 05/21/09 documented as of this encounter
--- OUTSIDE RECORDS SUMMARY | 2024-10-09 11:19 | XMS_ITS | Encounter Summary ---
Author Organization [facility] Address [address] [place] [address] Care Team Providers Care Electrical Superintendent Name Role Phone Campos Lopes MD Primary Care Provider [phone] Reason for Visit * Reason Comments Thyroid Problem Nontoxic multinodula r goiter * Consult (Routine/Next Available) - Receiving Office to Obtain Authorization Specialty Diagnoses / Procedures Referred By Lynnette osman Referred To Contact Endocrinology Diagnoses S/P thyroidectomy Rajan Sanchez MD Phone: tel: fax: [facility] Endocrinology - [address] [address] Phone: tel: fax: Referral ID Status Reason Start Date Expiration Date Visits Requested Visits Authorized [id number] Receiving Office to Obtain Authorization Specialty Services Required 3 1 1 Encounter Details Date Type Department Care Team (Latest Contact Info) Description 09/20/2023 10:20 EST Office Visit [facility] Endocrinology - [address] [address] Ariela Woods MD [address] [place] [address] [address] [place] [phone] Postoperative hypothyroidism (Primary Dx) Social History Tobacco Use Types Packs/Day Years [...] loss Pulse 64 09/20/2023 1105 EST Temperature - - Respiratory Rate - - Oxygen Saturation - - Inhaled Oxygen Concentration - - Weight 78.5 kg (173 lb) 09/20/2023 1105 EST Keke ent didn't want to take a weight Height 165.1 cm (5' 5) 09/20/2023 1105 EST Body Mass Index 28.79 09/20/2023 1105 EST documented in this encounter Functional Status * Are you [...] Chari Parker RN documented in this encounter Patient Instructions * Patient Instructions* Ariela Woods MD - 09/20/2023 10:20 EST Switch to 88cmg levothyroxine daily Stop your calcitriol and continue vitamin D Repeat labs in 6 weeks documented in this encounter Progress Notes * Ariela Woods MD - 09/20/2023 1020 EST Images from the original note were not included. Endocrinology New Patient Visit Date of Service: 09/20/2023 Chief Complaint Patient presents with Thyroid Problem Nontoxic multinodular goiter HPI: This is a 83 y.o. 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 She previously saw Dr Mitchell back in 2017. She has a history of bilateral thyroid nodules, negative TPO antibodies as of 2009. Apparently she was given Tapazole many months before March 2012 which led to some neck pain and discomfort. During her follow-up in March 2012 she was recommended to undergo FNA of a dominant thyroid nodule. I do not find the report of such biopsy. Of note, she had a thyroid ultrasound in August 2019 that reports findings consistent with marked diffuse goiter without dominant nodule identified. Scattered calcifications are noted. When I was discussing with her that I would recommend radioactive iodine uptakeand scan given her low TSH, normal T4, T3 she told me that she was allergic to iodine. Looking through her chart I found out that she had reactive iodine uptake and scan in 2009. Her uptake was 39%, mildly elevated, in line with the possible diagnosis of Graves' disease. However, her thyrotropin receptor antibody was negative. She is now s/p total thyroidectomy 04/13/[address] Sanchez. She initially had undetectable PTH but that has since improved with repeat PTH of 19 04/29/2023 then PTH up to 29 07/2023. She did have a slightly low calcium 05/2023 and repeat 07/2023 8.8 within normal. She has continued to take one tab of calcitriol daily. She denies any numbness or tingling in her lips and states she does sometimes get some tingling in fingers. Initially TSH since surgery has been suppressed for months so her synthroid has been decreased, eventually to 75mcg. TSH 09/17/23 5 on 75mcg levothyroxine. 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 Review of Systems A 10 point review of systems was obtained, pertinent positives and negatives as listed above, all others negative. Patient Active Problem List Diagnosis Hypertensive disorder Tremor Vulvodynia Nontoxic multinodular goiter Fracture of finger of left hand with malunion Abnormal radiographic examination Asthma Carpal tunnel syndrome of right wrist Chronic interstitial cystitis Chronic obstructive pulmonary disease ([facility]) Gastroesophageal reflux disease Hypersomnia Laceration of ear region Lack of energy Left bundle branch block Pain in right foot Postmenopausal bleeding Subclinical hyperthyroidism Urinary urgency Abdominal pain, right upper quadrant Abnormal computerized axial tomography of chest Acquired complex renal cyst Ankle edema Basal cell carcinoma of skin Gallbladder disorder Chronic cough Chronic low back pain Cystitis cystica Duodenal ulcer Dyspnea on exertion Fatigue Fracture of coccyx, subsequent encounter for fracture with delayed healing Gastric mass Gustatory rhinitis Pre-procedural laboratory examination Hypercholesterolemia Hyperglycemia Indigestion Laryngopharyngeal reflux Loss of balance Mild persistent asthma Muscle cramps Pain in joint Acute back pain with sciatica Paresthesias Paroxysmal atrial fibrillation ([facility]) Perennial allergic rhinitis Peripheral neuropathy Positive PPD Postnasal drip Postoperative state Pruritus Radial styloid tenosynovitis Recurrent urinary tract infection Foreign body granuloma of skin Wheezing Urinary tract infection, site not specified Urinary frequency Unspecified blepharitis unspecified eye, unspecified eyelid Torn ear lobe Tibialis posterior tendinitis Solitary pulmonary nodule Excessive daytime sleepiness Atrophic vaginitis Hyperthyroidism Past Medical History: Diagnosis Date A-fib ([facility]) Abnormal chest CT Acquired complex renal cyst 07/31/2018 Activity, other involving cardiorespiratory exercise able to climb 1 FOS sometimes; gardening Arrhythmia 04/06/2023 D/T thyroid and takes Atenolol Asthma 04/06/2023 uses rescue inhaler once daily Basal cell carcinoma of skin 10/22/2021 Chronic cough COPD (chronic obstructive pulmonary disease) ([facility]) well controlled with inhalers per pt 02/17/2021 GALLEGO (dyspnea on exertion) Duodenal ulcer Environmental allergies Excessive daytime sleepiness 10/22/2021 Excessive daytime sleepiness Gastric mass GERD (gastroesophageal reflux disease) 04/06/2023 meds don't work well History of general anesthesia no complications per pt 02/17/2021 History of recurrent UTIs Hx of osteoporosis Hypercholesterolemia Hypertension 04/06/2023 pt denies Hyperthyroidism 02/17/2021--recent TSH w/ PCP; takes atenolol for treatment; no changes per pt 02/16/2021 Left bundle branch block Multiple thyroid nodules 11/11/20 - see 09/20/2019 Dr. melanie simon Peripheral neuropathy Positive PPD Reactive depression Thyroid disease suppressed TSH; nml T4 and T3 Tremor per 03/17/2023 H&P very fine mild intention tremor Urinary frequency 11/11/2020 pt discribes hyperactive bladder UTI (urinary tract infection) chronic, last UTI last month, resolved with abx per pt 02/16/2021 Past Surgical History: Procedure Laterality Date CARPAL TUNNEL RELEASE Right 2019 11/11/2020 - [facility] TONSILLECTOMY Allergies Allergen Reactions Dye Anaphylaxis IVP DYE Nitrofurantoin Other (See Comments) Causes bladder pain Trimethoprim Rash Losartan Other reaction(s): itchiness and redness of eyes Mirabegron Other (See Comments) Amitriptyline FREIGHT LOADING SUPERVISOR changes at low dose Ciprofloxacin Other (See Comments) Ectopic heart beats Elmiron [Pentosan Polysulfate Sodium] Unknown To pt Iodine And Iodide Containing Products Hives Lisinopril Other reaction(s): Unknown Pt does not recall Methimazole Other (See Comments) unknown Quinolones Other (See Comments) syncope, weakness Shellfish Derived Pt is able to eat shellfish Famotidine Other (See Comments) Other reaction(s): stomach upset BP (!) 160/81 Comment: Being rushing& got loss Pulse 64 Ht 165.1 cm (65) Wt 78.5 kg (173lb) Comment: Patient didn't want to take a weight BMI 28.79 kg/m?? Physical Exam: Gen: alert, cooperative, in NAD HEENT: atraumatic, normocephalic, conjunctivae clear Neck: supple, trachea midline, well healed scar, no thyromegaly or nodules appreciated Lymph: no cervical, submandibular, supraclavicular adenopathy CV: RRR Extr: no peripheral edema, atraumatic, no tremor Neuro: DTRs 2/4 bilaterally Skin: No evidence of rash or lesion. Turgor and color normal. 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 Symptoms are improving, but with persisting fatigue, but unclear if related to thyroid vs other causes. TFTs have normalized. We decided to repeat TFTs here for comparison of different reference ranges. Though with age TSH normally increases we discussed given TSH high normal can consider slightly increasing levothyroxine keeping TSH within normal. Given PTH, calcium normalized will stop calcitriol and continue vitamin D3. Plan: Maureen was seen today for thyroid problem. Diagnoses and all orders for this visit: Postoperative hypothyroidism - TSH; Future - T4 FREE; Future - TSH; Future - T4 FREE; Future - CALCULATED CALCIUM; Future Other orders - amoxicillin-clavulanate (AUGMENTIN) 500-125 mg per tablet; Take 1 Tablet by mouth daily. Labs Based on recent labs increased levothyroxine to 88mcg daily. Will reassess after repeat labs if TSHstill normal if fatigue symptoms improve if this is a better dose for her. Labs in 6 weeks - [facility] labs Return in about 1 year (around 09/20/2024) for hypothyroidism. I spent a total of 45 minutes on the date of this encounter meeting with the patient and reviewing documentation/coordinating care as described in the above note. No procedures were performed at the time of the visit. Ariela Woods MD 09/20/2023 18:15 documented in this encounter Plan of Treatment Upcoming Encounters Date Type Department Care Team (Late st Contact Info) Description 10/17/2024 10:20 EST Telemedicine [facility] Endocrinology - [place] [address] [place] [address] Ariela Woods MD [address] [facility] [address] [place] [phone] 10/18/2024 9:15 EST Telemedicine [facility] SUPERVISOR HANGING AND TRIMMING Pelvic Medicine and Reconstructive Surgery - Medical Office Building [facility] [address] [place], [place] [phone] Kelsy Fierro MD 2 [facility] Medical Office [facility], [address] [place] [address] documented as of this encounter Results * T4 FREE (09/20/2023 11:44 EST) T4, Free 0.9 0.8 - 2.2 ng/dL 09/20/2023 14:26 EST [facility] Blood VENOUS BLOOD / Unknown Venipuncture / Unknown 09/20/2023 11:44 EST 09/20/2023 11:44 EST Ariela Woods MD CHEMISTRY & BLOOD GAS ORDERABLES Final Result Performing Organization Address City/State/[facility] Co de Phone Number [facility] [address] [place] [address] * TSH (09/20/2023 11:44 EST) TSH 3.51 0.47 - 4.68 mIU/L 09/20/2023 14:40 EST [facility] Blood VENOUS BLOOD / Unknown Venipuncture / Unknown 09/20/2023 11:44 EST 09/20/2023 11:44 EST Narrative [facility] - 09/20/2023 14:40 EST The results of this assay can be falsely lowered due to the consumption of Biotin. Ariela Woods MD CHEMISTRY & BLOOD GAS ORDERABLES Final Result [facility] [address] [place] [address] documented in this encounter Visit Diagnoses Diagnosis Postoperative hypothyroidism- Primary Postsurgical hypothyroidism documented in this encounter Historical Medications * This list may reflect changes made after this encounter. amoxicillin-clavu lanate (AUGMENTIN) 500-125 mg per tablet Take 1 Tablet by mouth daily. 03/21/2024 added in this encounter Care Teams Electrical Superintendent Relationship Specialty Start Date End Date Campos Lopes MD [address] [place] [address] PCP - General 05/21/09 documented as of this encounter
--- OUTSIDE RECORDS SUMMARY | 2024-10-09 11:19 | XMS_ITS | Encounter Summary ---
Author Organization [facility] Address [address] [place] [address] Care Team Providers Care Copper Plater Name Role Phone Campos Lopes MD Primary Care Provider [phone] Reason for Referral * Laboratory Services (Routine/Next Available) - New Request Specialty Diagnoses / Procedures Referred By Lynnette osman Referred To Contact Diagnoses Dysuria Procedures BACTERIAL CULTURE, URINE Kelsy Fierro MD [address] [facility] Medical Office Building, [address] [place] [address] Phone: tel: fax: Referral ID Status Reason Start Date Expiration Date V isits Requested Visits Authorized [id number] New Request 08/23/2024 1 1 * Laboratory Services (Routine/Next Available) - New Request Specialty Diagnoses / Procedures Referred By Lynnette osman Referred To Contact Diagnoses Dysuria Procedures UA CHEMICAL & SEDIMENT Kelsy Fierro MD [address] [facility] Medical Office Building, [address] [place] [address] Phone: tel: fax: Referral ID Status Reason Start Date Expiration Date V isits Requested Visits Authorized [id number] New Request 08/23/2024 1 1 Reason for Visit * Reason Comments Follow-up Patient states she a bout the same. She states some days are good and some days are bad. Encounter Details Date Type Department Care Team (Latest Contact Info) Description 08/23/2024 10:45 EST Telemedicine [facility] NURSING SECRETARY Pelvic Medicine and Reconstructive Surgery - Medical Office Building [address] [address] Kelsy Fierro MD [address] [facility] Medical Office [facility], [address] [address] Dysuria (Primary Dx); Chronic interstitial cystitis; Urinary urgency; Recurrent urinary tract infection Social History Tobacco Use Types Packs/Day Years Used Date Smoking Tobacco: Former Cigarettes 1 32 Passive Smoke Exposure: Never Smokeless Tobacco: Never Comments:late Alcohol Use Standard [...] Refills Last Filled Start Date End Date terconazole (TERAZOL 7) 0.4 % vaginal cream Place 1 Applicator vaginally at bedtime. As needed for vulvar itching 45 g 2 08/23/2024 documented in this encounter Progress Notes * Kelsy Fierro MD - 08/23/2024 1045 EST Today's visit was provided through telemedicine audio-visual conferencing: Consent: The concept of telemedicine?? has been described to the patient. Patient has been informed of theanticipated benefits and possible risks. Patient understands the information provided regarding telemedicine, has had the opportunity to ask questions about this information, and all questions have been answered to patient's satisfaction. Patient consents for the use of telemedicine in his/her medical care and authorizes the transmission of any relevant medical information to providers and their staff involved in patient's medical or mental health care. The location of the patient : Home (where patient lives) The location of the provider: home office The following people (and their respective roles) participated in today's encounter: Maureen Thomas, patient Kelsy Fierro MD, provider The audio-video application used to conduct the visit was [employer]. I spent a total of 35 minutes with Maureen Amandeep Thomas today and 35 minutes of that time was spent in counseling and coordination of care as described in the progress note. Pt presents today to discuss her IC and other concerns. She recently did a UA, micro at [facility] but a urine culture was not ordered. She notes that often her UA's are negative but the cultures are + when she is having sx. So will send a standing order for UA, micro and C+S. Also she will have her labs sent from her previous doctor so I can see the frequency of UTI's since she is new to me. She wonders about the daily suppression therapy. I ordered trimethoprim 100 mg daily but she says her bottle says bid. So clarified that it should be once a day. Also this is in her allergies as a rash and she says that she is not allergic to it and has been taking it so I removed it from her allergies. She is requesting to have Terazol on hand for yeast sx of itching since she takes antibiotics fairly frequently for UTI's. That was ordered for her with 2 RF's. She reports the Uribel is helping with the daily bladder pain. Works by taking one a day. So will hold on the instillations at this time. She will continue the Uribel daily but also tid prn. She reports a new sx of urgency with urge incontinence. She has been prescribed Tropsium by her PCPbut admits to not taking it everyday. Reviewed that taking it daily may help the urge incontinence.Also discussed PFPT but she declines stating she was told her pelvic floor muscles are very strong. PE: well appearing female A: IC Recurrent UTI by hx. Urgency and urge incontinence. P: see plans for each issue above. Rec f/u 6 months. Can be televideo. P: documented in this encounter Plan of Treatment Upcoming Encounters Date Type Department Care Team (Late st Contact Info) Description 10/17/2024 10:20 EST Telemedicine [facility] Endocrinology - [address] [address] Ariela Woods MD [address] [place] [address] 10/18/2024 9:15 EST Telemedicine [facility] NURSING SECRETARY Pelvic Medicine and Reconstructive Surgery - Medical Office Building [address] [phone] Kelsy Fierro MD [address] [place] [address] Medical Office [facility], [address] [phone] Scheduled Orders Name Type Priority Associated Diagnoses Orde r Schedule UA CHEMICAL & SEDIMENT Lab Routine Dysuria 8 Occurrences starting 08/23/2024 until 08/23/2025 BACTERIAL CULTURE, URINE Microbiology Routine Dysuria 8 Occurrences starting 08/23/2024 until 08/23/2025 documented as of this encounter Visit Diagnoses Diagnosis Dysuria- Primary Chronic interstitial cystitis Urinary urgency Urgency of urination Recurrent urinary tract infection Urinary tract infection, site not specified documented in this encounter Discontinued Medications Medication Sig Discontinue Reason Start Date End Da te cefpodoxime (VANTIN) 100 mg tablet Take 1 Tablet by mouth 2 times daily. 07/30/2024 08/23/2024 acetaminophen (TYLENOL) 500 mg tablet Take 2 Tablets by mouth every 6 hours as needed for Pain. 04/14/2023 08/23/2024 documented as of this encounter Historical Medications * This list may reflect changes made after this encounter. acetylcysteine (NAC) 600 mg capsule Take 1 Capsule by mouth daily. trospium (SANCTURA) 20 mg tablet Take 1 Tablet by mouth daily. cranberry vlpfvss-h-cleiqzs 500-50 mg tablet,chewable Take by mouth daily. 3 tablets added in this encounter Care Teams Copper Plater Relationship Specialty Start Date End Date Campos Lopes MD [address] [place] [address] PCP - General 05/21/09 documented as of this encounter
--- OUTSIDE RECORDS SUMMARY | 2024-10-09 11:19 | XMS_ITS | Encounter Summary ---
Author Organization [facility] Address [address] [place] [address] Care Team Providers Care Enamel Shader Name Role Phone Campos Lopes MD Primary Care Provider [phone] Reason for Visit * Reason Onset Date Comments Returning Call 10/12/2023 Encounter Details Date Type Department Care Team (Late Contact Info) Description 10/12/[address] [facility] Endocrinology - [facility] [address] [place] [address] Ariela Woods MD 62 [facility] [address] [place] [address] Returning Call Social History Tobacco Use Types Packs/Day Years [...] encounter Miscellaneous Notes * Telephone Encounter - Rosi Rene RN - 10/14/2023 1152 EST Images from the original note were not included. Closing encounter. Rosi Rene RN * Telephone Encounter - Jalen Farmer - 10/12/2023 1159 EST Patient states she is returning a call. She is unsure of who called as there was no message left but she states she is waiting for a call from endocrinology documented in this encounter Plan of Treatment Upcoming Encounters Date Type Department Care Team (Late st Contact Info) Description 10/17/2024 10:[address] [facility] Endocrinology - [address] [address] Ariela Woods MD 62 [facility] [address] [place] [address] 10/18/2024 9:[address] [facility] DUBBING MACHINE OPERATOR Pelvic Medicine and Reconstructive Surgery - Medical Office Building [facility] [address] [place] [address] Kelsy Fierro MD [address] [place] [address] Medical Office [facility], [address] [place] [phone] documented as of this encounter Visit Diagnoses Not on filedocumented in this encounter Care Teams Enamel Shader Relationship Specialty Start Date End Date Campos Lopes MD [address] [place] [address] PCP - General 05/21/09 documented as of this encounter
--- OUTSIDE RECORDS SUMMARY | 2024-10-09 11:19 | XMS_ITS | Encounter Summary ---
Author Organization [facility] Address [address] [place] [address] Care Team Providers Care Bulb Farmworker Name Role Phone Campos Lopes MD Primary Care Provider [phone] Reason for Visit * Vascular Lab (Routine/Next Available) - Authorization Not Required Specialty Diagnoses / Procedures Referred By Lynnette osman Referred To Contact Diagnoses Intermittent claudication ([facility]) Procedures US MICHELLE AND PHYSIOLOGIC STUDY Rosario Bahena MD [address] [place] [phone] Phone: tel: fax: [facility] Vascular Lab Referral ID Status Reason Start Date Expiration Date Visits Requested Visits Authorized [id number] Authorization Not Required 12/28/2023 1 1 Encounter Details Date Type Department Care Team (Latest Contact Info) Description 01/30/2024 13:30 EDT Ancillary Procedure Vascular Surgery and Endovascular Therapy - [facility] [address], [place] [address] Intermittent claudication ([facility]) Social History Tobacco Use Types Packs/Day Years [...] Description 10/17/2024 10:20 EST Telemedicine [facility] Endocrinology - [address] [address] Ariela Woods MD [address] [phone] 10/18/2024 9:15 EST Telemedicine [facility] SVP MARKETING Pelvic Medicine and Reconstructive Surgery - Medical Office Building [address] [address] Kelsy Fierro MD [address] [employer] [place] [address], Medical Office Building, [address] [place] [address] documented as of this encounter Procedures Procedure Name Priority Date/Time Associated Diagnosis Comments US MICHELLE AND PHYSIOLOGIC STUDY: RESTING AND POST EXERCISE Routine 01/30/2024 14:33 EDT Intermittent claudication (HCC-CMS) documented in this encounter Results * US MICHELLE AND PHYSIOLOGIC STUDY: RESTING AND POST EXERCISE (01/30/2024 14:33 EDT) Pathologist [facility] Right arm BP 148 mmHg MERGE CARDIO Left arm BP 147 mmHg MERGE CARDIO RIGHT MICHELLE DIGIT 123 mmHg MERGE CARDIO Right TBI 0.83 MERGE CARDIO Right posterior tibial 183 mmHg MERGE CARDIO RTDOPED 174 mmHg MERGE CARDIO Right MICHELLE 1.24 MERGE CARDIO LEFT MICHELLE DIGIT 115 mmHg MERGE CARDIO Left TBI 0.78 MERGE CARDIO Left posterior tibial 181 mmHg MERGE CARDIO LTDOPED 180 mmHg MERGE CARDIO Left MICHELLE 1.22 MERGE CARDIO Treadmill speed 2 mph MERGE CARDIO Treadmill grade 7 % MERGE CARDIO Treadmill time 3 min MERGE CARDIO Immediate right tibial 228 mmHg MERGE CARDIO Immediate left tibial 226 mmHg MERGE CARDIO Anatomical Region Laterality Modality Vascular Ultrasound Narrative 01/30/2024 16:53 EDT ?The ankle brachial indices and pulse volume recordings are within normal limits at rest and post exercise, no evidence of arterial insufficiency within the bilateral lower extremities. MICHELLE Exercise A treadmill stress test was performed. The patient ambulated on the treadmill at an incline of 7?? at 2.0 mph for 3 minutes. Patient terminated exercise test after 3 minutes. No significant change in right ankle pressures post exercise. No significant change in left ankle pressures post exercise. Right Lower Physiologic Pulse Volume Recording Right ankle: normal Right digit: normal Doppler Waveform Right posterior tibial: triphasic Right dorsalis pedis: triphasic Left Lower Physiologic Pulse Volume Recording Left ankle: normal Left digit: normal Doppler Waveform Left posterior tibial: triphasic Left dorsalis pedis: triphasic Arterial HPI and Indications Intermittent full body cramps and spasms Arterial Past Medical History Former tobacco use and Hypertension. us Rosario Bahena MD [facility] VASCULAR ORDERABLES Fin al Result documented in this encounter Visit Diagnoses Diagnosis Intermittent claudication ([facility]) Peripheral vascular disease, unspecified documented in this encounter Care Teams Bulb Farmworker Relationship Specialty Start Date End Date Campos Lopes MD [address] [place] [address] PCP - General 05/21/09 documented as of this encounter
--- OUTSIDE RECORDS SUMMARY | 2024-10-09 11:19 | XMS_ITS | Encounter Summary ---
Author Organization [facility] Address [address] [place] [address] Care Team Providers Care Hospital Unit Clerk Name Role Phone Campos Lopes MD Primary Care Provider [phone] Reason for Visit * Reason Onset Date Comments Appointment Related 02/20/2024 Encounter Details Date Type Department Care Team ([facility] Contact Info) Description 02/20/2024 Telephone [facility] Neurology - [address] [id number] Mary Salgado MD [address] [place] [address], [address] [place] [address] Appointment Related Social History Tobacco Use Types Packs/Day Years [...] encounter Miscellaneous Notes * Telephone Encounter - Julissa Meyer - 02/20/2024 0859 EDT Maureen called to cancel today's NPV appointment with Dr. Salgado due to illness. She did not wishto reschedule at this time. I let her know to call us if/when she is ready. documented in this encounter Plan of Treatment Upcoming Encounters Date Type Department Care Team (Late st Contact Info) Description 10/17/2024 10:20 EST Telemedicine [facility] Endocrinology - [facility] [address] [place] [address] Ariela Woods MD [address] [place] [address] [address] [place] [address] 10/18/2024 9:15 EST Telemedicine [facility] PRE SALES SYSTEMS ENGINEER Pelvic Medicine and Reconstructive Surgery - Medical Office [facility] [address] [place] [address] Kelsy Fierro MD 2 [facility], [address] [place] [address] documented as of this encounter Visit Diagnoses Not on filedocumented in this encounter Care Teams Hospital Unit Clerk Relationship Specialty Start Date End Date Campos Lopes MD [address] [place] [address] PCP - General 05/21/09 documented as of this encounter
--- OUTSIDE RECORDS SUMMARY | 2024-10-09 11:19 | XMS_ITS | Encounter Summary ---
Author Organization [facility] Address [address] [place] [address] Care Team Providers Care Foxing Closer Name Role Phone Campos Lopes MD Primary Care Provider [phone] Reason for Visit * Reason Onset Date Comments Coordination Of Care 09/19/2023 Encounter Details Date Type Department Care Team (Late Contact Info) Description 09/19/2023 Telephone [facility] Endocrinology - [facility] [address] [place] [address] Ariela Woods MD 62 [employer] [facility] [address] [place] [address] Coordination Of Care Social History Tobacco Use Types Packs/Day Years [...] Telephone Encounter - Rosi Rene RN - 09/22/2023 1003 EST Patient reviewed labs at 09/20/[address] new patient appointment with Dr. Woods. Rosi Rene RN * Telephone Encounter - Ros Cuellar - 09/19/2023 0940 EST Patient called ENT to find out if her blood test results had arrived from [facility]. Javascript Application Developer wasable to call and get them faxed over and uploaded to her scans. Patient was very adamant that Dr. Woods be made aware that they are there to be viewed. documented in this encounter Plan of Treatment Upcoming Encounters Date Type Department Care Team (Late st Contact Info) Description 10/17/2024 10:20 EST Telemedicine [facility] Endocrinology - [place] [address] [place] [address] Ariela Woods MD 62 [facility] [address] [place] [address] 10/18/2024 9:15 EST Telemedicine [facility] ASSISTANT PRODUCT MANAGER Pelvic Medicine and Reconstructive Surgery - Medical Office Building [facility] [address] [place], [place] [address] Kelsy Fierro MD 2 [facility] Medical Office [facility], [address] [place] [phone] documented as of this encounter Visit Diagnoses Not on filedocumented in this encounter Care Teams Foxing Closer Relationship Specialty Start Date End Date Campos Lopes MD [address] [place], [place] [phone] PCP - General 05/21/09 documented as of this encounter
--- OUTSIDE RECORDS SUMMARY | 2024-10-09 11:19 | XMS_ITS | Encounter Summary ---
Author Organization [facility] Address [address] [place] [address] Care Team Providers Care Marketing Reporting Analyst Name Role Phone Campos Lopes MD Primary Care Provider [phone] Reason for Visit * Reason Onset Date Comments Results 08/21/2024 Encounter Details Date Type Department Care Team ([facility] Contact Info) Description 08/21/2024 Telephone [facility] Pelvic Medicine and Reconstructive Surgery - Medical Office [facility] [address] [place] [phone] Polina Barton, JAZIEL [address] [place] [address] Results Social History Tobacco Use Types Packs/Day Years [...] encounter Miscellaneous Notes * Telephone Encounter - Polina Barton RN - 08/21/2024 1034 EST UA/micro results received and scanned into chart. Negative for infection. NextGame message sent to pt to determine why sample was submitted. documented in this encounter Plan of Treatment Upcoming Encounters Date Type Department Care Team (Late st Contact Info) Description 10/17/2024 10:20 EST Telemedicine [facility] Endocrinology - [address] [address] Ariela Woods MD 62 [facility] [address] [place] [address] 10/18/2024 9:15 EST Telemedicine [facility] ASSEMBLY MANAGER Pelvic Medicine and Reconstructive Surgery - Medical Office Building [address] [address] Kelsy Fierro MD [address] [place] [address] Medical Office [facility], [address] [place] [phone] documented as of this encounter Visit Diagnoses Not on filedocumented in this encounter Care Teams Marketing Reporting Analyst Relationship Specialty Start Date End Date Campos Lopes MD [address] [place], [place] [id number] PCP - General 05/21/09 documented as of this encounter
--- OUTSIDE RECORDS SUMMARY | 2024-10-09 11:19 | XMS_ITS | Encounter Summary ---
Author Organization [facility] Address [address] [place] [address] Care Team Providers Care Ammonia Box Operator Name Role Phone Campos Lopes MD Primary Care Provider [phone] Reason for Visit * Reason Onset Date Comments Medication Management 11/07/2023 Pharmacy 11/07/2023 Encounter Details Date Type Department Care Team (Late Contact Info) Description 11/07/2023 Telephone [facility] Endocrinology - [facility] [address] [place] [address] Ariela Woods MD 62 [facility] [address] [place] [phone] Medication Management; Pharmacy Social History Tobacco Use Types Packs/Day Years [...] Refills Last Filled Start Date End Date SYNTHROID 50 mcg tabletIndications:Po stoperative hypothyroidism Take 2 Tablets by mouth daily. Take 2 Tablets by mouth daily. Needs 50mcg tabs due to allergy symptoms suspected to filler or dyes. 180 Tablet 11/07/2023 4 documented in this encounter Miscellaneous Notes * Telephone Encounter - Dinorah Brown RN - 11/07/2023 1637 EST Images from the original note were not included. Script reordered for the following: DINORAH BROWN RN 11/07/2023 16:38 * Telephone Encounter - Deepika Roman - 11/07/2023 1435 EST Jose Maria fung vufind is calling and states he called earlier to clarify the prescription. Prescription says CINDY but generic is prescribed. * Telephone Encounter - Maryann Srinivasan - 11/07/2023 1102 EST Endocrinology Incoming Call Reason for call: Medication Management Medication Issue/PA Request Is this for an upcoming procedure in the next 2 weeks? No - Send ROUTINE priority to [facility] Endocrinology Nurse Pool What medication?: levothyroxine (SYNTHROID) 50 mcg tablet Caller's concerns: Not sure which generic brand to use. Next Appointment: 03/21/2024 Last Office Visit: 09/20/2023 Ariela Woods MD Last Telehealth Encounter: Visit date not found Maryann Craig 11/07/2023 11:03 documented in this encounter Plan of Treatment Upcoming Encounters Date Type Department Care Team (Late st Contact Info) Description 10/17/2024 10:20 EST Telemedicine [facility] Endocrinology - [address] [address] Ariela Woods MD [address] [phone] 10/18/2024 9:15 EST Telemedicine [facility] LEGAL COMPLIANCE OFFICER Pelvic Medicine and Reconstructive Surgery - Medical Office Building [address] [phone] Kelsy Fierro MD [address] [place] [address] Medical Office [facility], [address] [phone] documented as of this encounter Visit Diagnoses Diagnosis 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 Needs 50mcg tabs due to allergy symptoms suspected to filler or dyes Alternate therapy 11/07/2023 11/07/2023 documented as of this encounter Care Teams Ammonia Box Operator Relationship Specialty Start Date End Date Campos Lopes MD [address] [place] [address] PCP - General 05/21/09 documented as of this encounter
--- OUTSIDE RECORDS SUMMARY | 2024-10-09 11:19 | XMS_ITS | Encounter Summary ---
Author Organization [facility] Address [address] [place] [address] Care Team Providers Care Dyeing Machine Back Tender Name Role Phone Campos Lopes MD Primary Care Provider [phone] Reason for Visit * Reason Comments Eye Exam Complete exam and ch gem of cataracts Encounter Details Date Type Department Care Team (Late Contact Info) Description 01/09/2024 14:45 EDT Office Visit [facility] Ophthalmology [facility] [address] [place] [address] Brenden Means MD [address] [place] [phone] Social History Tobacco Use Types Packs/Day Years [...] this encounter Patient Instructions * Patient Instructions* Brenden Means MD - 01/09/2024 14:45 EDT Images from the original note were not included. AREDS 2 Formula Vitamins - Daily Dosage (many formulations require 1 capsule 2 times daily): 500mg Vitamin C 400 IU Vitamin E 80mg Zinc 2 mg Copper 10 mg Lutein 2 mg Zeaxanthin Common Brands include: Preservision or I-caps USE: Lubricant eye drops, also called artificial tears Brands include: iVizia (preservative-free), Refresh, Systane Ultra, Theratears, Soothe XP, Retaine,and Genteal moderate DO NOT use Ezricare, Visine or Clear Eyes 1 drop each eye 2-4 times a day documented in this encounter Progress Notes * Brenden Means MD - 01/09/2024 5255 EDT Chief Complaint Patient presents with Eye Exam Complete exam and check of cataracts HPI The patient is a 83 y.o. female here for follow up of cataracts/Posterior vitreous detachment. She reports vision mostly stable, but she has difficulty with night driving. she has no eye pain, doublevision, or new flashes/floaters. Right Eye: Glare or Light Sensitivity, Problem with Night Vision Left Eye: Glare or Light Sensitivity, Problem with Night Vision Visual Aid: Current Rx Age Location: Both eyes Pain: 0 - No pain Quality: Severity: Duration: Timing: Lasts: Context: Complete exam and check of cataracts Modifying factors: Patient reports more difficulty with night driving, due to glare from headlightsand shadows on the road. Vision otherwise seems stable. She continues to use just OTC readers. Has an older pair of bifocals for watching TV but not for driving (5+ years old from Dr. Fay?). Associated Signs & Symptoms: Attestation: ROS Constitutional: ENT/Mouth Cardiovascular: High Blood Pressure, High Cholesterol Respiratory: (COPD, asthma) Gastrointestinal: (GERD) Genitourinary: (bladder infections) Musculoskeletal: Integumentary: Neurologic: Psychiatric: NL Endocrine: Thyroid problems (thyroid removed) Hematologic: (BCC) Immunologic: Drug Allergy Afterschool: Exposures: None Other: Attestation: Base Eye Exam Visual Acuity (Snellen - Linear) Right Left Dist sc 20/80 -2 20/40 Dist ph sc 20/30 -2 20/25 -2 Tonometry (Applanation, 15:32) Right Left Pressure 18 17 Pupils Pupils Right PERRL Left PERRL Visual Abrams (Counting fingers) Right Left Full Full Extraocular Movement Right Left Full Full Neuro/Psych Oriented x3: Yes Mood/Affect: Normal Dilation Both eyes: Tropicamide 1%, Phenylephrine 2.5% @ 15:32 Slit Lamp and Fundus Exam External Exam Right Left External Normal Normal Slit Lamp Exam Right Left Lids/Lashes Normal Normal Conjunctiva/Sclera White and quiet White and quiet Cornea Mild ABMD changes superior Mild ABMD changes superior Anterior Chamber Deep and quiet Deep and quiet Iris Round and reactive Round and reactive Lens 2+ Nuclear sclerosis, 1+ Cortical cataract 2+ Nuclear sclerosis, Trace Posterior subcapsular cataract, Trace Cortical cataract Fundus Exam Right Left Vitreous Posterior vitreous detachment Normal Disc Normal Normal C/D Ratio 0.2 0.35 Macula few drusen Few drusen Vessels Normal Normal Periphery Normal Normal Refraction Manifest Refraction Sphere Cylinder [place] Dist VA Add Right +1.75 +1.00 180 20/30 +2.50 Left +0.75 +1.00 180 20/25-3 +2.50 Dist VA Both: 20/25-3 Near VA Both: J1+ Final Rx Sphere Cylinder [place] Right +1.75 +1.00 180 Left +0.75 +1.00 180 Type: Distance Expiration Date: 01/08/2026 Final Rx #2 Sphere Cylinder [place] Right +4.25 +1.00 180 Left +3.25 +1.00 180 Type: Reading Expiration Date: 01/08/2026 DIAGNOSTIC TESTING/PROCEDURES: IMPRESSION & PLAN: 1. Age-related macular degeneration, both eyes Right: Intermediate non-exudative macular degeneration Left: Intermediate non-exudative macular degeneration -Recommend regular use of Amsler grid -Recommend AREDS 2 formula supplement 1 cap twice daily -Return 1 year with OCT macula, BOTH eyes or sooner with changes 2. Cataract, both eyes Not visually significant -Monitor periodically 3. Anterior basement membrane dystrophy -Recommend proactive use of artificial tears 2-4 times daily 4. Posterior vitreous detachment, right eye Stable, monitor periodically 5. Disorder of refraction and accommodation -Give glasses Rx patient???s option to fill I have reviewed the patient's past medical, family, social and surgical history. I have also reviewed the patient's medications, allergies, and problem list. I performed my own history and have reviewed the [facility]'s ROS as well. I completed this exam personally. Brednen Means MD documented in this encounter Plan of Treatment Upcoming Encounters Date Type Department Care Team (Late st Contact Info) Description 10/17/2024 10:20 EST Telemedicine [facility] Endocrinology - [facility] [address] [place] [address] Ariela Woods MD [address] [facility] [address] [place] [address] 10/18/2024 9:15 EST Telemedicine [facility] FOOD EXPEDITOR Pelvic Medicine and Reconstructive Surgery - Medical Office Building [facility] [address] [place] [address] Kelsy Fierro MD 2 [facility] Medical Office Building, [address] [place] [phone] documented as of this encounter Visit Diagnoses Diagnosis Nonexudative age-related macular degeneration, bilateral, intermediate dry stage- Primary Combined form of senile cataract of left eye 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 Combined form of senile cataract of right eye Posterior vitreous detachment, right eye Vitreous degeneration Disorder of refraction and accommodation Unspecified disorder of refraction and accommodation documented in this encounter Eye Exam Visual Acuity (Snellen - Linear) Right eye Left eye Dist sc 20/80 -2 20/40 Dist ph sc 20/30 -2 20/25 -2 Tonometry (Applanation, 15:32) Right eye Left eye Pressure 18 17 Pupils Pupils Right eye PERRL Left eye PERRL Visual Abrams (Counting fingers) Right eye Left eye Full Full Extraocular Movement Right eye Left eye Full Full Neuro/Psych Oriented x3: Yes Mood/Affect: Normal Dilation Both eyes: Tropicamide 1%, P henylephrine 2.5% @ 15:32 External Exam Right eye Left eye External Normal Normal Slit Lamp Exam Right eye Left eye Lids/Lashes Normal Normal Conjunctiva/Sclera White and quiet White and adele et Cornea Mild ABMD changes superior Mild ABMD changes superior Anterior Chamber Deep and quiet Deep and quiet Iris Round and reactive Round and maria luisa ctive Lens 2+ Nuclear sclerosis , 1+ Cortical cataract 2+ Nuclear sclerosis, Trace Posterior subcapsular cataract, Trace Cortical cataract Fundus Exam Right eye Left eye Posterior Vitreous Posterior vitreous detachment Normal Disc Normal Normal C/D Ratio 0.2 0.35 Macula few drusen Few drusen Vessels Normal Normal Periphery Normal Normal Manifest Refraction Sphere Cylinder [place] Dist VA Add Right eye +1.75 +1.00 180 20/30 +2.50 Left eye +0.75 +1.00 180 20/25-3 +2.50 Dist VA Both: 20/25-3 Near VA Both: J1+ Final Rx #1 Sphere Cylinder [place] Right eye +1.75 +1.00 180 Left eye +0.75 +1.00 180 Type: Distance Expiration Date: 01/08/2026 Final Rx #2 Sphere Cylinder [place] Right eye +4.25 +1.00 180 Left eye +3.25 +1.00 180 Type: Reading Expiration Date: 01/08/2026 Care Teams Dyeing Machine Back Tender Relationship Specialty Start Date End Date Campos Lopes MD [address] [place] [address] PCP - General 05/21/09 documented as of this encounter
--- OUTSIDE RECORDS SUMMARY | 2024-10-09 11:19 | XMS_ITS | Encounter Summary ---
Author Organization [facility] Address [address] [place] [address] Care Team Providers Care Merchandise Carrier Name Role Phone Campos Lopes MD Primary Care Provider [phone] Encounter Details Date Type Department Care Team (Late Contact Info) Description 07/29/2023 Lab Requisition [facility] Pathology & Laboratory Medicine - [facility] [address] [place] [address] Outr Resulting Lab, Provider Social History Tobacco [...] Contact Info) Description 10/17/2024 10:20 EST Telemedicine [facility] Endocrinology - [address] [address] Ariela Woods MD [address] [place] [phone] 10/18/2024 9:15 EST Telemedicine [facility] SORT OPERATIONS SUPERVISOR Pelvic Medicine and Reconstructive Surgery - Medical Office [address] [phone] Kelsy Fierro MD [address] [place] [address] Office [facility], [address] [phone] documented as of this encounter Procedures Procedure Name Priority Date/Time Associated Diagnosis Comments CORTISOL Routine 07/29/2023 9:02 EDT documented in this encounter Results * CORTISOL (07/29/2023 9:02 EDT) Cortisol 10 See Note ug/dL 07/29/2023 23:02 EDT [facility] Comment: NOTE: Reference Ranges (from OCD IFU): Collected Before 10:00 AM: ??4 - 23 ug/dL Collected After 5:00 PM: ?2 - 14 ug/dL The results of this assay can be falsely elevated due to the consumption of Biotin. Blood VENOUS BLOOD / Unknown 07/29/2023 9:02 EDT 07/29/2023 22:16 EDT us Provider Outr Resulting Lab CHEMISTRY & BLOOD GA S ORDERABLES Final Result [facility] [address] [place] [address] documented in this encounter Visit Diagnoses Not on filedocumented in this encounter Care Teams Merchandise Carrier Relationship Specialty Start Date End Date Campos Lopes MD [address] [place] [address] PCP - General 05/21/09 documented as of this encounter
--- OUTSIDE RECORDS SUMMARY | 2024-10-09 11:19 | XMS_ITS | Encounter Summary ---
Author Organization [facility] Address [address] [place] [address] Care Team Providers Care High School Academic Coach Name Role Phone Campos Lopes MD Primary Care Provider Reason for Visit * Reason Onset Date Comments Other 07/22/2023 MyChart issues Encounter Details Date Type Department Care Team ([facility] Contact Info) Description 07/22/2023 Telephone [facility] [address] [place], [place] [phone] Rajan Sanchez MD [address] [facility], [address] [place] [address] Other (MyChart issues) Social History Tobacco Use Types Packs/Day Years [...] Date of Assessment Author No 04/13/2023 16:00 EDChari Schafer RN * Are you blind or do [...] encounter Miscellaneous Notes * Telephone Encounter - Ros Cuellar - 07/22/2023 1211 EDT Patient called to express frustration that she was not able to send messages directly to her doctor. She was very confused because she has gotten messages back from Dr. Sanchez, but there was no option to reply directly to her. Digital Marketing Officer explained, at length, and multiple times, that the messages ARE getting to the doctor, they just go through the nurses first. She eventually expressed understanding and agreed to send a more detailed message for the nurses tolook over and forward to the doctor. documented in this encounter Plan of Treatment Upcoming Encounters Date Type Department Care Team (Late st Contact Info) Description 10/17/2024 10:20 EST Telemedicine [facility] Endocrinology - [address] [address] Ariela Woods MD [address] [facility] [address] [place] [phone] 10/18/2024 9:15 EST Telemedicine [facility] CORPORATE VP ADVERTISING & ONLINE Pelvic Medicine and Reconstructive Surgery - Medical Office Building [facility] [address] [place], [place] [phone] Kelsy Fierro MD [address] [place] [address] Medical Office [facility], [address] [place] [phone] documented as of this encounter Visit Diagnoses Not on filedocumented in this encounter Care Teams High School Academic Coach Relationship Specialty Start Date End Date Campos Lopes MD [address] [place], [place] [phone] PCP - General 05/21/09 documented as of this encounter
--- OUTSIDE RECORDS SUMMARY | 2024-10-09 11:19 | XMS_ITS | Encounter Summary ---
Author Organization [facility] Address [address] [place] [address] Care Team Providers Care Animal Behaviorist Name Role Phone Campos Lopes MD Primary Care Provider [phone] Encounter Details Date Type Department Care Team (Late Contact Info) Description 05/07/2024 Lab Requisition [facility] Pathology & Laboratory Medicine - [facility] [address] [place] [address] Outr Resulting Lab, Provider Social History Tobacco [...] of Assessment Author No 04/13/2023 16:00 Chari Parekr RN * Do you have serious difficulty [...] Contact Info) Description 10/17/2024 10:20 EST Telemedicine [facility] Endocrinology - [address] [address] Ariela Woods MD [address] [place] [phone] 10/18/2024 9:15 EST Telemedicine [facility] INSURANCE HEALTHCARE REPRESENTATIVE Pelvic Medicine and Reconstructive Surgery - Medical Office [address] [phone] Kelsy Fierro MD [address] [place] [address] Office [facility], [address] [phone] documented as of this encounter Procedures Procedure Name Priority Date/Time Associated Diagnosis Comments LYME AB Routine 05/07/2024 12:40 EDT documented in this encounter Results * LYME AB (05/07/2024 12:40 EDT) Lyme Ab Negative Negative 05/08/2024 9:52 EDT [facility] Blood VENOUS BLOOD / Unknown 05/07/2024 12:40 EDT 05/07/2024 22:15 EDT us Provider Outr Resulting Lab IMMUNOLOGY AND SEROL OGY ORDERABLES Final Result [facility] [address] [place], [place] [phone] documented in this encounter Visit Diagnoses Not on filedocumented in this encounter Care Teams Animal Behaviorist Relationship Specialty Start Date End Date Campos Lopes MD [address] [place], [place] [phone] PCP - General 05/21/09 documented as of this encounter
--- OUTSIDE RECORDS SUMMARY | 2024-10-09 11:19 | XMS_ITS | Encounter Summary ---
Author Organization [facility] Address [address] [place] [address] Care Team Providers Care Medical Doctor Name Role Phone Campos Lopes MD Primary Care Provider Reason for Visit * Reason Onset Date Comments Results 10/12/2023 Encounter Details Date Type Department Care Team (Late Contact Info) Description 10/12/[address] [facility] Endocrinology - [facility] [address] [place] [address] Ariela Woods MD [address] [facility] [address] [place] [phone] Results Social History Tobacco Use Types Packs/Day [...] Refills Last Filled Start Date End Date levothyroxine (SYNTHROID) 100 mcg tablet Take 1 Tablet by mouth daily. Repeat labs in 6 weeks to reassess dose 60 Tablet 10/12/2023 documented in this encounter Miscellaneous Notes * Telephone Encounter - Ariela Woods MD - 10/12/2023 1202 EST Called and got voicemail. I left a message in Livestream. If pt does not see the message today can you call her and relay my message? Thanks Dr Ariela IRWIN.[facility], Form Setter [employer] Forms in Endocrinology [facility] 10/12/23 12:03 documented in this encounter Plan of Treatment Upcoming Encounters Date Type Department Care Team (Late st Contact Info) Description 10/17/2024 10:[address] [facility] Endocrinology - [address] [address] Ariela Woods MD [address] [facility] [address] [place] [phone] 10/18/2024 9:[address] 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 Reorder 09/21/2023 10/12/2023 documented as of this encounter Care Teams Medical Doctor Relationship Specialty Start Date End Date Campos Lopes MD [address] [place] [address] PCP - General 05/21/09 documented as of this encounter
--- OUTSIDE RECORDS SUMMARY | 2024-10-09 11:19 | XMS_ITS | Encounter Summary ---
Author Organization [facility] Address [address] [place] [address] Care Team Providers Care Care Manager Cna Name Role Phone Campos Lopes MD Primary Care Provider [phone] Reason for Visit * Reason Onset Date Comments New Patient Visit 01/13/2024 Encounter Details Date Type Department Care Team ([facility] Contact Info) Description 01/13/2024 Telephone [facility] Neurology - [address] [place] [address] [place], [place] [phone] Mary Salgado MD [address] [place] [address], [address] [place] [address] New Patient Visit Social History Tobacco Use Types Packs/Day Years [...] encounter Miscellaneous Notes * Telephone Encounter - Juliane Egan - 01/13/2024 1147 EDT Spoke to doug Reddy [facility] onsite with Dr. Salgado on 02/20/24 at 11 AM. Sent welcome letter and assigned referral NPV - Paresthesia documented in this encounter Plan of Treatment Upcoming Encounters Date Type Department Care Team (Late st Contact Info) Description 10/17/2024 10:20 EST Telemedicine [facility] Endocrinology - [facility] [address] [place], [place] [phone] Ariela Woods MD [address] [place] [address] [address] [place] [phone] 10/18/2024 9:15 EST Telemedicine [facility] REGULATORY AFFAIRS ASSISTANT Pelvic Medicine and Reconstructive Surgery - Medical Office [facility] [address] [place] [address] Kelsy Fierro MD [facility] Medical Office Building, [address] [place] [phone] documented as of this encounter Visit Diagnoses Not on filedocumented in this encounter Care Teams Care Manager Cna Relationship Specialty Start Date End Date Campos Lopes MD [address] [place] [address] PCP - General 05/21/09 documented as of this encounter
--- OUTSIDE RECORDS SUMMARY | 2024-10-09 11:19 | XMS_ITS | Encounter Summary ---
Author Organization [facility] Address [address] [place] [address] Care Team Providers Care Patient Partner Name Role Phone Campos Lopes MD Primary Care Provider [phone] Reason for Referral * Laboratory Services (Routine/Next Available) - New Request Specialty Diagnoses / Procedures Referred By [facility] Referred To Contact Diagnoses Postoperative hypothyroidism Spasm Diarrhea, unspecified type Numbness Procedures T4 FREE Ariela Woods MD Phone: tel: fax: Referral ID Status Reason Start Date Expiration Date V isits Requested Visits Authorized [id number] New Request 11/04/2023 1 1 * Laboratory Services (Routine/Next Available) - New Request Specialty Diagnoses / Procedures [facility] Referred To Contact Diagnoses Postoperative hypothyroidism Spasm Diarrhea, unspecified type Numbness Procedures TSH Ariela Woods MD Phone: tel: fax: Referral ID Status Reason Start Date Expiration Date V isits Requested Visits Authorized [id number] New Request 11/04/2023 1 1 * Laboratory Services (Routine/Next Available) - New Request Specialty Diagnoses / Procedures Referred By [facility] Referred To Contact Diagnoses Postoperative hypothyroidism Spasm Diarrhea, unspecified type Numbness Procedures COMPREHENSIVE METABOLIC PANEL (CMP) Ariela Woods MD Phone: tel: fax: Referral ID Status Reason Start Date Expiration Date V isits Requested Visits Authorized [id number] New Request 11/04/2023 1 1 * Laboratory Services (Routine/Next Available) - New Request Specialty Diagnoses / Procedures Referred By [facility] Referred To Contact Diagnoses Postoperative hypothyroidism Spasm Diarrhea, unspecified type Numbness Procedures PTH INTACT Ariela Woods MD Phone: tel: fax: Referral ID Status Reason Start Date Expiration Date V isits Requested Visits Authorized [id number] New Request 11/04/2023 1 1 * Laboratory Services (Routine/Next Available) - New Request Specialty Diagnoses / Procedures Referred By [facility] Referred To Contact Diagnoses Postoperative hypothyroidism Spasm Diarrhea, unspecified type Numbness Procedures MAGNESIUM Ariela Woods MD Phone: tel: fax: Referral ID Status Reason Start Date Expiration Date V isits Requested Visits Authorized [id number] New Request 11/04/2023 1 1 Reason for Visit * Reason Onset Date Comments New/Evolving Symptoms 11/04/2023 Encounter Details Date Type Department Care Team (Late st Contact Info) Description 11/04/2023 Telephone [facility] Endocrinology - [facility] [address] [place] [address] Ariela Woods MD 62 [facility] [address] [place] [address] New/Evolving Symptoms Social History Tobacco Use Types Packs/Day Years [...] encounter Miscellaneous Notes * Telephone Encounter - Bethany Dangelo - 11/05/2023 0819 EST Faxed labs to [facility] per request * Telephone Encounter - Ariela Woods MD - 11/04/2023 1646 EST Called pt back She reports she is having a 'Terrible time', symptoms from last call improved briefly then now muchworse. Saw PT which was not revealing of cause Fatigue Daytime sleepiness Loose stool Painful spasms leg, hands, tingling, tremors when wakes Discussed resending labs. Recommended making a PCP appointment. Recommended could always try using 50mcg levothyroxine tablets in the unlikely event that it is related to the dyes in the tablets. [facility] Will send labs: Mg, calcium, PTH, TSH, free T4 MA/pSS?RN-pool--- can you please make sure these labs are faxed to [facility] and confirm they got it? Pt getting them tomorrow Dr Ariela IRWIN.[facility], [place] Worker in Endocrinology [facility] 11/04/23 17:05 documented in this encounter Plan of Treatment Upcoming Encounters Date Type Department Care Team (Late st Contact Info) Description 10/17/2024 10:20 EST Telemedicine [facility] Endocrinology - [address] [phone] Ariela Woods MD [address] [facility] [address] [place] [phone] 10/18/2024 9:15 EST Telemedicine [facility] FREELANCE RECRUITER Pelvic Medicine and Reconstructive Surgery - Medical Office Building [address] [phone] Kelsy Fierro MD [address] [place] [address] Medical Office [facility], [address] [place] [phone] Scheduled Orders Name Type Priority Associated Diagnoses Orde r Schedule MAGNESIUM Lab Routine Postoperative hypothyroidism Spasm Diarrhea, unspecified type Numbness Expected: 11/05/2023 (Approximate), Expires: 11/04/2024 PTH INTACT Lab Routine Postoperative hypothyroidism Spasm Diarrhea, unspecified type Numbness Expected: 11/05/2023, Expires: 11/04/2024 COMPREHENSIVE METABOLIC PANEL (CMP) Lab Routine Postoperative hypothyroidism Spasm Diarrhea, unspecified type Numbness Expected: 11/05/2023, Expires: 11/04/2024 TSH Lab Routine Postoperative hypothyroidism Spasm Diarrhea, unspecified type Numbness Expected: 11/04/2023, Expires: 11/04/2024 T4 FREE Lab Routine Postoperative hypothyroidism Spasm Diarrhea, unspecified type Numbness Expected: 11/04/2023, Expires: 11/04/2024 documented as of this encounter Visit Diagnoses Diagnosis Spasm- Primary Abnormal involuntary movements Postoperative hypothyroidism Postsurgical hypothyroidism Diarrhea, unspecified type Numbness Disturbance of skin sensation documented in this encounter Care Teams Patient Partner Relationship Specialty Start Date End Date Campos Lopes MD [address] [place] [id number] PCP - General 05/21/09 documented as of this encounter
--- OUTSIDE RECORDS SUMMARY | 2024-10-09 11:19 | XMS_ITS | Encounter Summary ---
Author Organization [facility] Address [address] [place] [address] Care Team Providers Care Manager Retail Name Role Phone Campos Lopes MD Primary Care Provider [phone] Reason for Visit * Reason Onset Date Comments Results 07/30/2024 Encounter Details Date Type Department Care Team (Late Contact Info) Description 07/30/2024 Telephone [facility] Pelvic Medicine and Reconstructive Surgery - Medical Office [facility] [address] [place] [address] Arlene Duong RN Results Social History Tobacco Use Types Packs/Day [...] Refills Last Filled Start Date End Date cefpodoxime (VANTIN) 100 mg tablet Take 1 Tablet by mouth 2 times daily. 14 Tablet 07/30/2024 08/23/2024 documented in this encounter Miscellaneous Notes * Telephone Encounter - Julissa Thornton RN - 07/30/2024 0931 EDT Sent abx as written by . TC to pt, advised. Routed to PSS for scheduling televideo with Dr. Fierro. Trimethoprim already added to allergy list. D/c'd from med list. * Telephone Encounter - Kelsy Fierro MD - 07/30/2024 0925 EDT I would treat with vantin 100 mg bid x 7 days. * Telephone Encounter - Arlene Duong RN - 07/30/2024 0821 EDT Call placed to patient and confirmed she was not having symptoms at time of visit. Patient reports that she feels the UTI has traveled to her vulva. Attempted to explain to patient that this is not typically how UTI's present. 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 I know how the present. Explained to patient that based on RN history with treating patients with UTI's, spreading to the labia does not occur. 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 Lets not compete, I know this can happen. Patient then questioned why RN was calling for symptoms when It's clearly documented I have an infection with the culture. Explain to patient that MD was having RN reach out to discuss symptoms so we can track treatment process. Patients states that she is having: Urgency Frequency Pain bladder spasms No Dysuria, No fevers, No flank pain, No visible blood in urine. When RN attempted to clarify symptoms regarding pain and blood in urine, patient made comments about how do you not understanding what I am saying. RN explained to patient that I am trying to help her with her concerns and need to clarify what pain she was having- dysuria or spasms. Bactrim DS causing inappropriate itching of face, head and neck. Confirmed there is no difficultybreathing or swelling of face/tongue. Attempted to address additional concerns in alternate encounter regarding bladder instillation options. Patient states she prefers not to discuss to a third green party. Requesting to speak directly to MD with video or telemedicine visit. Notified patient will send to MD for review of treatment. RN team will call her back. Patient with questions on who she should reach out to with further questions. Explained RN line with voicemail and then RN team reaches out. The patient indicates understanding of these issues and agrees with the plan. ARLENE DUONG RN 07/30/2024 8:40 * Telephone Encounter - Arlene Duong RN - 07/30/2024 0843 EDT ----- Message from Kelsy Fierro MD sent at 07/28/2024 13:11 EDT ----- Pt was asymptomatic when this was collected. Please check in with her regarding current sx. May just be colonized. documented in this encounter Plan of Treatment Upcoming Encounters Date Type Department Care Team (Late st Contact Info) Description 10/17/2024 10:20 EST Telemedicine [facility] Endocrinology - [facility] [address] [place] [address] Ariela Woods MD 62 [facility] [address] [place] [phone] 10/18/2024 9:15 EST Telemedicine [facility] SENIOR CLINICAL DATA COORDINATOR Pelvic Medicine and Reconstructive Surgery - Medical Office Building [facility] [address] [place] [phone] Kelsy Fierro MD 2 [facility] Medical Office [facility], [address] [phone] documented as of this encounter Visit Diagnoses Not on filedocumented in this encounter Discontinued Medications Medication Sig Discontinue Reason Start Date End Da te trimethoprim (TRIMPEX) 100 mg tablet Take 1 Tablet by mouth every 12 hours. Allergic reaction 07/26/2024 07/30/2024 documented as of this encounter Care Teams Manager Retail Relationship Specialty Start Date End Date Campos Lopes MD [address] [place] [address] PCP - General 05/21/09 documented as of this encounter
--- OUTSIDE RECORDS SUMMARY | 2024-10-09 11:19 | XMS_ITS | Encounter Summary ---
Author Organization [facility] Address [address] [place] [address] Care Team Providers Care Tip Length Checker Name Role Phone Campos Lopes MD Primary Care Provider [phone] Reason for Visit * Reason Onset Date Comments Appointment Related 03/26/2024 Encounter Details Date Type Department Care Team (Late Contact Info) Description 03/26/2024 Telephone [facility] Endocrinology - [facility] [address] [place] [address] Ariela Woods MD [address] [facility] [address] [place] [address] Appointment Related Social History Tobacco Use Types [...] encounter Miscellaneous Notes * Telephone Encounter - Lisa Greco - 03/26/2024 1504 EDT Left voicemail to schedule Follow Up with Dr. Ariela Woods. Patient is due anytime after 09-22-2024. First Call- Please Schedule from the Recall. documented in this encounter Plan of Treatment Upcoming Encounters Date Type Department Care Team (Late st Contact Info) Description 10/17/2024 10:20 EST Telemedicine [facility] Endocrinology - [facility] [address] [place] [address] Ariela Woods MD 62 [facility] [address] [place] [phone] 10/18/2024 9:15 EST Telemedicine [facility] DYE FEEDER Pelvic Medicine and Reconstructive Surgery - Medical Office [facility] [address] [place] [address] Kelsy Fierro MD [address] [facility] Medical Office Building, [address] [place] [phone] documented as of this encounter Visit Diagnoses Not on filedocumented in this encounter Care Teams Tip Length Checker Relationship Specialty Start Date End Date Campos Lopes MD [address] [place], [place] [phone] PCP - General 05/21/09 documented as of this encounter
--- OUTSIDE RECORDS SUMMARY | 2024-10-09 11:19 | XMS_ITS | Encounter Summary ---
Author Organization [facility] Address [address] [place] [address] Care Team Providers Care Digital Solution Architect Name Role Phone Campos Lopes MD Primary Care Provider [phone] Reason for Visit * Reason Onset Date Comments Medication Management 11/03/2023 Encounter Details Date Type Department Care Team (Late Contact Info) Description 11/03/2023 Telephone [facility] End[facility]inology - [facility] [address] [place] [address] Ariela Woods MD [address] [facility] [address] [place] [address] Medication Management Social History Tobacco Use Types Packs/Day Years [...] Encounter - Dinorah Brown RN - 11/07/2023 0830 EST Oracle Fusion Middleware Developer in chart to check on status of this encounter since Dimeres chat was received this morning by provider. No further action needed. DINORAH BROWN RN 11/07/2023 8:31 * Telephone Encounter - Liliya Kwong - 11/05/2023 1216 EST Addressed in another encounter- labs sent to [facility] * Telephone Encounter - Dinorah Brown RN - 11/04/2023 [address] Woods and Nicole Kwong. DINORAH BROWN RN 11/04/2023 16:08 * Telephone Encounter - Carlos Looney - 11/04/2023 1427 EST The patient called again and states only the doctor can answer her questions not a nurse. She has been waiting two days and wants answers now. She has requested to speak to a record press supervisor * Telephone Encounter - Clementina Reyes - 11/03/2023 0840 EST Endocrinology Incoming Call Reason for call: Medication Issue/PA Request Is this for an upcoming procedure in the next 2 weeks? No - Send ROUTINE priority to [facility] Endocrinology Nurse Pool Caller's concerns: Patient would like to speak with Dr Jose harris about medication and symptoms. Next Appointment: 03/21/2024 Last Office Visit: 09/20/2023 Ariela Woods MD Last Telehealth Encounter: Visit date not found documented in this encounter Plan of Treatment Upcoming Encounters Date Type Department Care Team (Late st Contact Info) Description 10/17/2024 10:20 EST Telemedicine [facility] Endocrinology - [address] [address] Ariela Woods MD [address] [place] [phone] 10/18/2024 9:15 EST Telemedicine [facility] PROOF LOAD MECHANIC Pelvic Medicine and Reconstructive Surgery - Medical Office Building [address] [phone] Kelsy Fierro MD [address] [place] [address] Medical Office [facility], [address] [phone] documented as of this encounter Visit Diagnoses Not on filedocumented in this encounter Care Teams Digital Solution Architect Relationship Specialty Start Date End Date Campos Lopes MD [address] [place] [address] PCP - General 05/21/09 documented as of this encounter
--- OUTSIDE RECORDS SUMMARY | 2024-10-09 11:19 | XMS_ITS | Encounter Summary ---
Author Organization [facility] Address [address] [place] [address] Care Team Providers Care Awning Erector Name Role Phone Campos Lopes MD Primary Care Provider [phone] Reason for Visit * Reason Onset Date Comments Other 07/27/2023 Encounter Details Date Type Department Care Team ([facility] Contact Info) Description 07/27/2023 Telephone [facility] [address] [place], [place] [phone] Rajan Sanchez MD [address] [facility] [address] [place] [phone] Other Social History Tobacco Use Types Packs/Day [...] encounter Miscellaneous Notes * Telephone Encounter - Sabina Cesar - 07/27/2023 1220 EDT This gag writer spent over 30 minutes speaking to Maureen about her concerns and frustrations. Unix Analyst listened and validated and indicated we could look into what went wrong with the faxes last week. Maureen was very upset that this clinic does not answer our phones during the lunch hour and would likethat to be addressed. Unix Analyst informed patient that that time allows our staff to take lunch breaks.Unix Analyst apologized for the inconvenience Maureen experienced not being able to get through regardingher orders being faxed to [facility]. Maureen also expressed frustration about being told not to call the emergency line and that nobody had told her that previously. This gag writer did confirm that the emergency line was post operative emergencies only and that we do need to keep that line open in case of an emergent call. Maureen feels that there are many systemic omissions and that it has made communication and care navigation challenging. 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 Sanchez. This gag writer explained how all questions are seen by our RNs first and then sent to an MD when appropriate for follow up. Maureen feels as though this should be clear in MyChart. This gag writer validated that it can be really challenging as a patient right now and that navigating healthcare systems is not always easy. Unix Analyst reiterated that I can learn more about where we had challenges with her fax and call this am and provide re-education to staff, but there are portions of our healthcare system that are larger than this office. Unix Analyst and Maureen discussed these topics a few different times. Unix Analyst advised patient that I'd like to be able to support the patient getting the follow up she is looking for on her medication change and let her know I would follow up internally with staff on topics that we can address onsite and that we would work on getting her med change started. * Telephone Encounter - Ros Cuellar - 07/27/2023 1046 EDT Patient called in on the emergency line. Unix Analyst advised her we would no longer be taking calls fromher on that line and she needs to use the [phone] like everyone else. Unix Analyst called her back from the regular line, and attempted to connect her with Pedro per her request, but was unable to connect. Messaged Pedro and she will reach out to the patient FAVIO. Patient also requested to speak with Sabina, and was advised that Sabina will be notified and will call her back. documented in this encounter Plan of Treatment Upcoming Encounters Date Type Department Care Team (Late st Contact Info) Description 10/17/2024 10:20 EST Telemedicine [facility] - [facility] [address] [place] [address] Ariela Woods MD 62 [facility] [address] [place] [phone] 10/18/2024 9:15 EST Telemedicine [facility] STEAMBOAT INSPECTOR Pelvic Medicine and Reconstructive Surgery - Medical Office Building [facility] [address] [place], [place] [phone] Kelsy Fierro MD 2 [facility] Office [facility], [facility] [address] [place] [phone] documented as of this encounter Visit Diagnoses Not on filedocumented in this encounter Care Teams Awning Erector Relationship Specialty Start Date End Date Campos Lopes MD [address] [place], [place] [phone] PCP - General 05/21/09 documented as of this encounter
--- OUTSIDE RECORDS SUMMARY | 2024-10-09 11:19 | XMS_ITS | Encounter Summary ---
Author Organization [facility] Address [address] [place] [address] Care Team Providers Care Telepathist Name Role Phone Campos Lopes MD Primary Care Provider [phone] Reason for Visit * Reason Comments Medications Refill Encounter Details Date Type Department Care Team ([facility] Contact Info) Description 12/20/[address] [facility] Endocrinology - [facility] [address] [place] [address] Ariela Woods MD 62 [facility] [address] [place] [phone] Medications Refill Social History Tobacco [...] encounter Miscellaneous Notes * Telephone Encounter - Faith Franz RN - 12/22/2023 0823 EDT Levothyroxine 100 mcg last filled 11/18/23 (Tirosint) #90 x2 documented in this encounter Plan of Treatment Upcoming Encounters Date Type Department Care Team (Late st Contact Info) Description 10/17/2024 10:[address] [facility] Endocrinology - [facility] [address] [place] [address] Ariela Woods MD 62 [facility] [address] [place] [phone] 10/18/2024 9:[address] [facility] CUSTOMS OPENER VERIFIER PACKER Pelvic Medicine and Reconstructive Surgery - Medical Office [facility] [address] [place], [place] [address] Kelsy Fierro MD [address] [place] [address] [place], Medical Office Building, [address] [place] [phone] documented as of this encounter Visit Diagnoses Not on filedocumented in this encounter Care Teams Telepathist Relationship Specialty Start Date End Date Campos Lopes MD [address] [place], [place] [phone] PCP - General 05/21/09 documented as of this encounter
--- OUTSIDE RECORDS SUMMARY | 2024-10-09 11:19 | XMS_ITS | Referral Summary ---
Author Organization [facility] Address [address] [place] [address] Care Team Providers Care Police Service Technician Name Role Phone Campos Lopes MD Primary Care Provider [phone] Encounters Date Type Department Care Team Description 09/18/2024 Telephone [facility] Endocrinology - [address] [phone] Ariela Woods MD Labs Only 09/05/2024 Telephone [facility] Pelvic Medicine and Reconstructive Surgery - Medical Office [address] [phone] Mary Hartley RN Prior Auth, Medication 08/23/2024 Telephone [facility] Pelvic Medicine and Reconstructive Surgery - Medical Office [address] [phone] Earnestine Quan, JAZIEL Orders (Non Pre-visit) 08/23/2024 10:45 EST Telemedicine [facility] LABORER DRIVER Pelvic Medicine and Reconstructive Surgery - Medical Office [address] [phone] Kelsy Fierro MD Dysuria (Primary Dx); Chronic interstitial cystitis; Urinary urgency; Recurrent urinary tract infection 08/21/2024 Telephone [facility] Pelvic Medicine and Reconstructive Surgery - Medical Office [address] [phone] Polina Barton, JAZIEL Results 07/30/2024 Telephone [facility] Pelvic Medicine and Reconstructive Surgery - Medical Office Building [facility] [address] [place] [phone] Arlene Clark, JAZIEL Results 07/27/2024 Telephone [facility] Pelvic Medicine and Reconstructive Surgery - Medical Office Building [address] [address] Earnestine Quan RN Prior Auth, Medication 07/26/2024 8:15 EDT Office Visit [facility] LABORER DRIVER Pelvic Medicine and Reconstructive Surgery - Medical Office Building [address] [address] Kelsy Fierro MD Interstitial cystitis (Primary Dx); Recurrent UTI 07/20/2024 Refill [facility] Endocrinology - [address] [phone] Ariela Woods MD Medications Refill from Last 3 Months Allergies Active Allergy Reactions Criticality Noted Date Comments Amitriptyline 10/22/2021 DICER OPERATOR changes at low dose Ciprofloxacin Other (See [...] MOUTH DAILY 90 Capsule 3 Active cranberry bjvpnsb-n-rmejns e 500-50 mg tablet,chewable Take by mouth [...] as needed for irritation. 20 mL 2 11/22/2 024 Active Mth-Me Blue-Sod Vunk-OtFal-Zcf (URIBEL) 118-10-40.8-36 mg capsule Take 1 Capsule by mouth 3 times daily as needed for Other (bladder pain). 90 Capsule 1 024 Active amoxicillin-clav ulanate (AUGMENTIN) 250-125 mg per tablet Take 1 Tablet by mouth 3 times daily. 30 Tablet 024 Active Mth-Me Blue-Sod Cplx-JwPko-Zhk (URIBEL) 118-10-40.8-36 mg capsule Take 1 Capsule by mouth 3 times daily as needed for Other (bladder pain). 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 (5 years old or older) Answer Entry Date Author No 04/13/2023 16:00 Chari Parker RN Plan of Treatment Upcoming Encounters Date Type Department Care Team (Late st Contact Info) Description 10/17/2024 10:20 EST Telemedicine [facility] Endocrinology - [facility] [address] [place], [place] [phone] Ariela Woods MD 62 [facility] [address] [place] [phone] 10/18/2024 9:15 EST Telemedicine [facility] LABORER DRIVER Pelvic Medicine and Reconstructive Surgery - Medical Office Building [facility] [address] [place], [place] [address] Kelsy Fierro MD [address] [place] [address], [address] [phone] Procedures Procedure Name Priority Date/Time Associated Diagnosis [...] pneumoniae(A ) VITEK SUSCEPTIBILITY 07/28/2024 10:35 EDT [facility] Comment: Use of cefazolin [...] only cefpodoxime and cephalexin are on the [facility] inpatient formulary. ? Urine URINE [...] Kelsy Racquel Fierro MD MICROBIOLOGY - GENERAL ORDGretchen ARREGUIN Final Result [facility] [address] [place], [place] [phone] * (ABNORMAL) POCT URINE DIPSTICK, CLINITEK (07/26/2024 8:54 EDT) Color, UA Yellow Yellow 07/26/2024 8:57 EDT [facility] Clarity, UA Clear Clear 07/26/2024 8:57 EDT [facility] Glucose, UA Negative Negative mg/dL 07/26/2024 8:57 EDT [facility] Bilirubin, UA Negative Negative 07/26/2024 8:57 EDT [facility] Ketones, UA Negative Negative 07/26/2024 8:57 EDT [facility] Specific [place], Urine 1.025 1.001 - 1.030 07/26/2024 8:57 EDT [facility] Blood, UA Trace(A) Negative 07/26/2024 8:57 EDT [facility] pH, UA 6.5 5.0 - 8.0 07/26/2024 8:57 EDT [facility] Protein, UA Negative Negative mg/dL 07/26/2024 8:57 EDT [facility] Urobilinogen, UA 0.2 0.2 - 1.0 mg/dL 07/26/2024 8:57 EDT [facility] Nitrite, UA Positive(A) Negative 07/26/2024 8:57 EDT [facility] Leuk Esterase Trace(A) Negative 07/26/2024 8:57 EDT [facility] HN LAB COMMENT (CLINITEK, UR) Test performed at [facility] 07/26/2024 8:57 EDT [facility] Urine URINE SPECIMEN OBTAINED BY CLEAN CATCH PROCEDURE / Unknown 07/26/2024 8:54 EDT 07/26/2024 8:57 EDT Kelsy Fierro MD POINT OF CARE TEST ORDERABL ES Final Result [facility] [address] [place] [address] * POCT CSN BARCODE URINE DIPSTICK (07/26/2024 8:52 EDT) Urine URINE SPECIMEN OBTAINED BY CLEAN CATCH PROCEDURE / Unknown 07/26/2024 8:52 EDT 07/26/2024 8:52 EDT Kelsy Fierro MD LAB INFO SERVICE AND SUPPOR T & PHONE RESULT Final Result [facility] [address] [place] [address] from Last 3 Months [place] Directives For more information, please contact: [phone] * Full Code (Latest Code Status on File) Date Activated Date Inactivated Comments 04/13/2023 15:57 04/14/2023 13:56 Question Answer Comments When the patient has NO PULSE: Full Code / CPR Who Made the Decision? Default/Not Discussed Care Teams Police Service Technician Relationship Specialty Start Date End Date Campos Lopes MD [address] [place] [address] [facility] - General 05/21/09
--- OUTSIDE RECORDS SUMMARY | 2024-10-09 11:19 | XMS_ITS | Encounter Summary ---
Author Organization [facility] Address [address] [place] [address] Care Team Providers Care Line Construction Superintendent Name Role Phone Campos Lopes MD Primary Care Provider Reason for Visit * Reason Onset Date Comments Orders (Non Pre-visit) 08/23/2024 Encounter Details Date Type Department Care Team (Late Contact Info) Description 08/23/2024 Telephone [facility] Pelvic Medicine and Reconstructive Surgery - Medical Office [facility] [address] [place] [address] Earnestine Quan RN Orders (Non Pre-visit) Social History Tobacco Use [...] Telephone Encounter - Julissa [place] RN - 08/27/2024 1157 EST TC to pt, advised of negative urine culture. Encouraged cb PRN. Confirmed upcoming appt per pt request. * Telephone Encounter - Kelsy Fierro MD - 08/27/2024 1149 EST Nothing else, thx * Telephone Encounter - Polina Barton RN - 08/27/2024 1013 EST Ucx results received. No growth. * Telephone Encounter - Heather Caban RN - 08/24/2024 0849 EST UA result received. Results are in scans. Did not reflex to culture. Test is all within normal limits. Per TM's note, the patient reports her UA history of coming back normal with the culture growingbacteria. There is no culture in process for this urine. Specimen collection time was at 1:54 pm on08/23. Phone call to the lab, though the UA says a culture is not indicated, lab confirmed that there is one in process and at this time it is still showing no growth. HEATHER CABAN RN 08/24/2024 8:57 * Telephone Encounter - Earnestine Quan RN - 08/23/2024 9278 EST [facility] Lab calling to report that pt has dropped off a urine sample and they do nothave orders. Pt seen via Telemed by Dr. Fierro and urine testing was ordered. Orders faxed to [facility] at [phone]. documented in this encounter Plan of Treatment Upcoming Encounters Date Type Department Care Team (Late st Contact Info) Description 10/17/2024 10:20 EST Telemedicine [facility] Endocrinology - [address] [phone] Ariela Woods MD [address] [place] [phone] 10/18/2024 9:15 EST Telemedicine [facility] OPHTHALMOLOGIST Pelvic Medicine and Reconstructive Surgery - Medical Office Building [facility] [address] [place] [phone] Kelsy Fierro MD [address] [place] [address] Medical Office [facility], [address] [phone] documented as of this encounter Visit Diagnoses Not on filedocumented in this encounter Care Teams Line Construction Superintendent Relationship Specialty Start Date End Date Campos Lopes MD [address] [place] [address] PCP - General 05/21/09 documented as of this encounter
--- OUTSIDE RECORDS SUMMARY | 2024-10-09 11:19 | XMS_ITS | Encounter Summary ---
Author Organization [facility] Address [address] [place] [address] Care Team Providers Care Configuration Management Consultant Name Role Phone Campos Lopes MD Primary Care Provider [phone] Reason for Visit * Reason Onset Date Comments Prior Auth, Medication 07/27/2024 Encounter Details Date Type Department Care Team ([facility] Contact Info) Description 07/27/2024 Telephone [facility] Pelvic Medicine and Reconstructive Surgery - Medical Office [facility] [address] [place] [address] Earnestine Quan RN Prior Auth, Medication Social History Tobacco Use Types Packs/Day Years [...] Encounter - Julissa [place] RN - 07/30/2024 0950 EDT PA denied. * Telephone Encounter - Earnestine Quan RN - 07/27/2024 1543 EDT PA done through [facility] for Uribel documented in this encounter Plan of Treatment Upcoming Encounters Date Type Department Care Team (Late st Contact Info) Description 10/17/2024 10:20 EST Telemedicine [facility] Endocrinology - [facility] [address] [place], [place] [phone] Ariela Woods MD 62 [facility] [address] [place] [phone] 10/18/2024 9:15 EST Telemedicine [facility] DESKTOP SUPPORT CONSULTANT Pelvic Medicine and Reconstructive Surgery - Medical Office Building [facility] [address] [place] [address] Kelsy Fierro MD [address] [place] [address] Medical Office Building, [address] [place] [phone] documented as of this encounter Visit Diagnoses Not on filedocumented in this encounter Care Teams Configuration Management Consultant Relationship Specialty Start Date End Date Campos Lopes MD [address] [place], [place] [phone] PCP - General 05/21/09 documented as of this encounter
--- OUTSIDE RECORDS SUMMARY | 2024-10-09 11:19 | XMS_ITS | Encounter Summary ---
Author Organization [facility] Address [address] [place] [address] Care Team Providers Care International Relations Professor Name Role Phone Campos Lopes MD Primary Care Provider [phone] Reason for Visit * Reason Onset Date Comments Prior Auth, Medication 09/05/2024 Encounter Details Date Type Department Care Team ([facility] Contact Info) Description 09/05/2024 Telephone [facility] Pelvic Medicine and Reconstructive Surgery - Medical Office [facility] [address] [place] [address] Mary Hartley RN Prior Auth, Medication Social History Tobacco [...] Refills Last Filled Start Date End Date [facility] Blue-Sod Hmcp-RdBdv-Cui (URIBEL) 118-10-40.8-36 mg capsule Take 1 Capsule by mouth 3 times daily as needed for Other (bladder pain). 90 Capsule 1 09/13/2024 documented in this encounter Miscellaneous Notes * Telephone Encounter - Julissa [place] RN - 09/21/2024 1628 EST Uribel PA already denied (07/27/24 telephone encounter.) MCM to pt. * Telephone Encounter - Mary Hartley RN - 09/13/2024 1440 EST Refilled Uribel per . Sent to pharmacy. * Telephone Encounter - Kelsy Fierro MD - 09/13/2024 1429 EST Ok for the uribel #90, 1 tid prn bladder pain with 1 RF. thx * Telephone Encounter - Mary Hartley RN - 09/13/2024 0956 EST Tc to pt to advise of PA denial. Relayed that insurance will not cover due to already dispensing the lidocaine. Advised that she can work with the pharmacy or I could send a msg to for alternatives. Pt states she will pay for medication, as she does not think it will be much. Pt states she has been using Uribel and she noticed she was only given 30 day supply. She would like a another prescription, as she says she uses it 1-3x daily and worries she will not have a refill once she runs out. Advised I will send a message to Dr. Fierro to advise on refill. The patient indicates understanding of these issues and agrees with the plan. * Telephone Encounter - Mary Hartley RN - 09/12/2024 1541 EST Called to pt to explain that the insurance has only covered the Lidocaine Syringes that she has picked up, and that a PA will be submitted for the Xylocaine. Advised that I will call back once we received the PA response. The patient indicates understanding of these issues and agrees with the plan. * Telephone Encounter - Polina Barton RN - 09/12/2024 1527 EST Pt calling. Pt has not received a call back and would like an update. Advised pt of last note by JAZIEL Zeng. Appears we are awaiting a PA for xylocaine. Pt reports she has glydo so is ok for now, but would like to know if insurance is going to cover both or not. * Telephone Encounter - Mary Hartley RN - 09/12/2024 1025 EST Tc to pharmacy, relayed that we spoke with pt this morning and she reported picking up Lidocaine syringes but did not medicinal plant picker other lidocaine, as it needed a PA. They stated that insurance will only cover the Glydo (generic) because there are two of the same medication being requested. He said he will send a PA for the Xylocaine, but is unsure if it will get covered due to already dispensing Glydo. PA being faxed over. * Telephone Encounter - Mary Hartley RN - 09/12/2024 0902 EST Tc to pt, she reports she has picked up the lidocaine syringes, but states the pharmacy sent a PA for the lidocaine in a tube. Pt aware we received PA from pharmacy, but that it was for the syringes.Pt aware that we will call pharmacy to clarify. The patient indicates understanding of these issuesand agrees with the plan. * Telephone Encounter - Mary Hartley RN - 09/11/2024 1431 EST Faxed PA appeal denial. LVMTCB * Telephone Encounter - Mary Hartley RN - 09/10/2024 1414 EST PA appeal faxed to [facility] 09/10/24 * Telephone Encounter - Mary Hartley RN - 09/10/2024 1413 EST Images from the original note were not included. You Kelsy Fierro MD; [facility] Nurse3 days ago HIRA Tierney, I just submitted a new PA with 2 different diagnosis codes I found. Thank you! You routed conversation to [facility] Nurse3 days ago You Kelsy Fierro MD3 days ago Mark Tierney, this diagnosis code can not be found. What are your further recommendations? Kelsy Fierro MD routed conversation to [facility] Nurse3 days ago Kelsy Fierro MD3 days ago You can use vulvovaginal irritation. Note You Kelys Fierro MD; [facility] Nurse3 days ago JOSELINE Taveras denied for 2% Lidocaine. Diagnosis used was Interstitial Cystitis without Chronic Hematuria. Do you have any recommendations for another diagnosis to use? Thank you! * Telephone Encounter - Kelsy Fierro MD - 09/07/2024 1509 EST You can use vulvovaginal irritation. * Telephone Encounter - Mary Hartley RN - 09/07/2024 1337 EST PA denied. Routing to to advise on diagnosis. * Telephone Encounter - Heather Caban RN - 09/07/2024 0906 EST Per [facility], decision not yet made. PA still in process. HEATHER CABAN RN 09/07/2024 9:06 * Telephone Encounter - Mary Hartley RN - 09/05/2024 1151 EST PA needed for Lidocaine HCI Urethral/Mucosal 2%. PA completed through [facility]. Printed. documented in this encounter Plan of Treatment Upcoming Encounters Date Type Department Care Team (Late st Contact Info) Description 10/17/2024 10:20 EST Telemedicine [facility] Endocrinology - [facility] [address] [place], [place] [phone] Ariela Woods MD 62 [facility] [address] [place] [phone] 10/18/2024 9:15 EST Telemedicine [facility] STEEL WHEEL ENGRAVER Pelvic Medicine and Reconstructive Surgery - Medical Office Building [facility] [address] [place], [place] [phone] Kelsy Fierro MD [address] [place] [address] Medical Office [facility], [address] [place] [phone] documented as of this encounter Visit Diagnoses Not on filedocumented in this encounter Discontinued Medications Medication Sig Discontinue Reason Start Date End Da te Mth-Me Blue-Sod Zbjd-UmGys-Tzs (URIBEL) 118-10-40.8-36 mg capsule Take 1 Capsule by mouth 3 times daily as needed for Other (bladder pain). Reorder 07/26/2024 09/13/2024 documented as of this encounter Care Teams International Relations Professor Relationship Specialty Start Date End Date Campos Lopes MD [address] [place], [place] [phone] PCP - General 05/21/09 documented as of this encounter
--- OUTSIDE RECORDS SUMMARY | 2024-10-09 11:19 | XMS_ITS | Encounter Summary ---
Author Organization [facility] Address [address] [place] [address] Care Team Providers Care Medical Claims Specialist Name Role Phone Campos Lopes MD Primary Care Provider [phone] Reason for Visit * Reason Onset Date Comments Labs Only 09/18/2024 Encounter Details Date Type Department Care Team ([facility] Contact Info) Description 09/18/2024 Telephone [facility] Endocrinology - [facility] [address] [place] [address] Ariela Woods MD 62 [facility] [address] [place] [phone] Labs Only Social History Tobacco Use Types Packs/Day Years [...] Date of Assessment Author No 04/13/2023 16:00 DENEENT Chari Noble RN * Are you blind [...] Telephone Encounter - Faith Franz RN - 09/18/2024 1443 EST Outgoing call to pt. Advised that lab orders have been faxed to [facility]. Pt wondered why this had not been done, could not speak to as why orders placed on 09/12 had not been faxed. * Telephone Encounter - Julissa Hartley - 09/18/2024 1136 EST Endocrinology Incoming Call Reason for call: Labs Request Labs Request/Results What labs would you like orders for? Thyroid When do you need it by? Unknown - patient requests a call back to inform when the lab order has been sent Where would you like the labs drawn? [facility] Are you at the lab now? No - Send ROUTINE priority to [facility] Endocrinology Nurse Excello Next Appointment: 10/17/2024 Last Office Visit: 09/20/2023 Ariela Woods MD Last Telehealth Encounter: 03/21/2024 Ariela Woods MD documented in this encounter Plan of Treatment Upcoming Encounters Date Type Department Care Team (Late st Contact Info) Description 10/17/2024 10:20 EST Telemedicine [facility] Endocrinology - [facility] [address] [place] [address] Ariela Woods MD 62 [facility] [address] [place] [phone] 10/18/2024 9:15 EST Telemedicine [facility] POLICY CANCELLATION CLERK Pelvic Medicine and Reconstructive Surgery - Medical Office Building [facility] [address] [place] [phone] Kelsy Fierro MD [address] [place] [address] Office [facility], [address] [phone] documented as of this encounter Visit Diagnoses Not on filedocumented in this encounter Care Teams Medical Claims Specialist Relationship Specialty Start Date End Date Campos Lopes MD [address] [place], [place] [phone] PCP - General 05/21/09 documented as of this encounter
--- OUTSIDE RECORDS SUMMARY | 2024-10-09 11:19 | XMS_ITS | Encounter Summary ---
Author Organization [facility] Address [address] [place] [address] Care Team Providers Care Rehabilitation Engineer Name Role Phone Campos Lopes MD Primary Care Provider [phone] Reason for Referral * Laboratory Services (Routine/Next Available) - New Request Specialty Diagnoses / Procedures Referred By Lynnette osman Referred To Contact Diagnoses Interstitial cystitis Recurrent UTI Procedures UA CHEMICAL & SEDIMENT + REFLEX TO CULTURE Kelsy Fierro MD [address] [place] [address] Medical Office [facility], [address] [place] [address] Phone: tel: fax: Referral ID Status Reason Start Date Expiration Date V isits Requested Visits Authorized [id number] New Request 07/26/2024 10 10 Reason for Visit * Reason Comments New Patient Visit Patient is here for IC treatment as a NPV with TM. She is very symptomatic. Has seen many urologists to see what can be done. * Referral (Routine) - Receiving Office to Obtain Authorization Specialty Diagnoses / Procedures Referred By Lynnette osman Referred To Contact Pelvic Medicine Diagnoses Chronic bladder pain Mary Posada MD [address] [place] [phone] Phone: tel: fax: [facility] Pelvic Medicine and Reconstructive Surgery - Medical Office Building [facility] [address] [place] [address] Phone: tel: fax: Referral ID Status Reason Start Date Expiration Date Visits Requested Visits Authorized [id number] Receiving Office to Obtain Authorization 1 1 Encounter Details Date Type Department Care Team (Latest Contact Info) Description 07/26/2024 8:15 EDT Office Visit [facility] HEALTH EDUCATOR Pelvic Medicine and Reconstructive Surgery - Medical Office Building [address] [id number] Kelsy Fierro MD 2 [facility] Medical Office Building, [address] [address] Interstitial cystitis (Primary Dx); Recurrent UTI Social History Tobacco Use Types Packs/Day Years [...] Refills Last Filled Start Date End Date [facility] Blue-Sod Lnao-ShThn-Wyq (URIBEL) 118-10-40.8-36 mg capsule Take 1 Capsule by mouth 3 times daily as needed for Other (bladder pain). 30 Capsule 1 07/26/2024 4 trimethoprim (TRIMPEX) 100 mg tablet Take 1 Tablet by mouth every 12 hours. 60 Tablet 2 07/26/2024 4 documented in this encounter Progress Notes * Kelsy Fierro MD - 07/26/2024 0815 EDT Pt presents for a consult from Dr. Posada for IC and recurrent UTI. Pt states she was dx'd with IC 18 yrs ago. She has been dealing with recurrent UTI's for the past couple of years. She is on daily cephalexin from her PCP but it bothers her bladder. She didn't take it this morning and she feels normal for the first time in a long time. Typically has urgency and frequency with only a small amt of u rine in her bladder. But today she held her bladder for the couple hr drive to get here and had a full bladder without pain. Her typical sx are smarting at the urethra as well as irritation of the vulva. Urgency/frequency. She takes D-mannose. She feels like nvs are exposed in the bladder. She also takes tropsium once a day. She brings a paper showing a negative urine culture 07/17/24. She gets sx and doesn't know if it is a UTI or her IC. So she submits a urine frequently to check on that. She cannot take gabapentin or elavil- adverse reactions. Her bladder definitely reacts to diet and so tries to follow the IC diet. Notes from Dr. Posada revealed a 0 ml PVR, she reports she takes pyridium but it is not helping muchany more. Med hx, surg hx, fam hx, social hx reviewed in [employer]. 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 Declined. Rest of exam was def today. Talking took up her entire visit time. UA- + nitrite and leuks. (But pt asymptomatic) A: pt with hx of IC. Recurrent UTI. P: discussed IC treatment options. Decided since sx are intermittent, Uribel prn would be the firstthing to try. Since cephlexin affects her bladder adversely, discussed a trial with daily trimethoprim for UTI prevention. She agrees to this switch. Will order a standing order to [facility] for a UA, C+S. Discussed bladder instillations as the next step if the uribel fails to control her sx. Will send urine for culture. Standing order for UA, C+S sent to [facility]. Rec f/u with me in 1-2 months- in person or TV. I spent a total of 45 minutes on the date of this encounter meeting with the patient and reviewing documentation/coordinating care as described in the above note. Addendum 07/28: urine culture + for klebsiella but pt was asymptomatic. May just be colonized. Nurse to check in on pt and sx on Tuesday. documented in this encounter Plan of Treatment Upcoming Encounters Date Type Department Care Team (Late st Contact Info) Description 10/17/2024 10:20 EST Telemedicine [facility] Endocrinology - [facility] [address] [place] [address] Ariela Woods MD [address] [facility] [address] [place] [address] 10/18/2024 9:15 EST Telemedicine [facility] HEALTH EDUCATOR Pelvic Medicine and Reconstructive Surgery - Medical Office Building [facility] [address] [place] [address] Kelsy Fierro MD 2 [facility] Medical Office Building, [address] [place] [phone] Scheduled Orders Name Type Priority Associated Diagnoses Orde r Schedule POCT URINE CLINITEK (DIPSTICK) - DOES NOT REFLEX Lab Routine Interstitial cystitis 5 Occurrences starting 07/26/2024 until 07/26/2025, 1 completed UA CHEMICAL & SEDIMENT + REFLEX TO CULTURE Lab Routine Interstitial cystitis Recurrent UTI 10 Occurrences starting 07/26/2024 until 07/26/2025 documented as of this encounter Procedures Procedure Name Priority Date/Time Associated Diagnosis Comments BACTERIAL CULTURE, URINE Routine 07/26/2024 9:46 EDT Recurrent UTI POCT URINE DIPSTICK, CLINITEK Routine 07/26/2024 8:54 EDT Interstitial cystitis POCT CSN BARCODE URINE DIPSTICK Routine 07/26/2024 8:52 EDT Interstitial cystitis POCT URINE CLINITEK (DIPSTICK) - DOES NOT REFLEX Routine 07/26/2024 8:52 EDT Interstitial cystitis documented in this encounter Results * (ABNORMAL) BACTERIAL CULTURE, URINE (07/26/2024 9:46 EDT) Organism ID Greater than 100,000 CFU/ml Klebsiella pneumoniae(A ) VITEK SUSCEPTIBILITY 07/28/2024 10:35 EDT [facility] Comment: Use of cefazolin [...] only cefpodoxime and cephalexin are on the [facility] inpatient formulary. ? Urine URINE SPECIMEN [...] VITEK SUSCEPTIBILITY >=320 ug/mL: Resistant us Kelsy Fierro MD MICROBIOLOGY - GENERAL ORDE RODRÍGUEZ Final Result [facility] [address] [place] [phone] * (ABNORMAL) POCT URINE DIPSTICK, CLINITEK (07/26/2024 8:54 EDT) Color, UA Yellow Yellow 07/26/2024 8:57 EDT [facility] Clarity, UA Clear Clear 07/26/2024 8:57 EDT [facility] Glucose, UA Negative Negative mg/dL 07/26/2024 8:57 EDT [facility] Bilirubin, UA Negative Negative 07/26/2024 8:57 EDT [facility] Ketones, UA Negative Negative 07/26/2024 8:57 EDT [facility] Specific [place], Urine 1.025 1.001 - 1.030 07/26/2024 8:57 EDT [facility] Blood, UA Trace(A) Negative 07/26/2024 8:57 EDT [facility] pH, UA 6.5 5.0 - 8.0 07/26/2024 8:57 EDT [facility] Protein, UA Negative Negative mg/dL 07/26/2024 8:57 EDT [facility] Urobilinogen, UA 0.2 0.2 - 1.0 mg/dL 07/26/2024 8:57 EDT [facility] Nitrite, UA Positive(A) Negative 07/26/2024 8:57 EDT [facility] Leuk Esterase Trace(A) Negative 07/26/2024 8:57 EDT [facility] HN LAB COMMENT (CLINITEK, UR) Test performed at the [facility] 07/26/2024 8:57 EDT [facility] Urine URINE SPECIMEN OBTAINED BY CLEAN CATCH PROCEDURE / Unknown 07/26/2024 8:54 EDT 07/26/2024 8:57 EDT Kelsy Fierro MD POINT OF CARE TEST ORDERABL ES Final Result Performing Organization Address [facility]/ZIP Co de Phone Number [facility] [address] [place] [address] * POCT CSN BARCODE URINE DIPSTICK (07/26/2024 8:52 EDT) Urine URINE SPECIMEN OBTAINED BY CLEAN CATCH PROCEDURE / Unknown 07/26/2024 8:52 EDT 07/26/2024 8:52 EDT Kelsy Fierro MD LAB INFO SERVICE AND SUPPOR T & PHONE RESULT Final Result Performing Organization Address [facility]/ZIP Co de Phone Number [facility] [address] [place], [place] [phone] documented in this encounter Visit Diagnoses Diagnosis Interstitial cystitis- Primary Chronic interstitial cystitis Recurrent UTI Urinary tract infection, site not specified documented in this encounter Discontinued Medications Medication Sig Discontinue Reason Start Date End Da te cephalexin (KEFLEX) 500 mg capsule Take 1 Capsule by mouth daily. Alternate therapy 07/26/2024 documented as of this encounter Historical Medications * This list may reflect changes made after this encounter. cephalexin (KEFLEX) 500 mg capsule Take 1 Capsule by mouth daily. 07/26/2024 added in this encounter Care Teams Rehabilitation Engineer Relationship Specialty Start Date End Date Campos Lopes MD [address] [place] [address] PCP - General 05/21/09 documented as of this encounter
--- OUTSIDE RECORDS SUMMARY | 2024-10-09 11:19 | XMS_ITS | Encounter Summary ---
Author Organization [facility] Address [address] [place] [address] Care Team Providers Care Tug Hand Name Role Phone Campos Lopes MD Primary Care Provider [phone] Reason for Visit * Reason Comments Thyroid Problem Encounter Details Date Type Department Care Team (Latest Contact Info) Description 03/21/2024 10:30 EDT Telemedicine [facility] Endocrinology - [facility] [address] [place] [address] Ariela Woods MD [address] [facility] [address] [place] [address] Postoperative hypothyroidism (Primary Dx) Social [...] Refills Last Filled Start Date End Date phenazopyridine (PYRIDIUM) 100 mg tablet Take 1 Tablet by mouth 3 times daily as needed for Pain. 90 Tablet 4 TIROSINT 112 mcg capsuleIndications: Postoperative hypothyroidism Take 1 Capsule by mouth daily. Dispense Tirosint brand for allergy to generic levothyroxine formulations and synthroid. 90 Capsule 1 4 07/20/20 24 documented in this encounter Progress Notes * Ariela Woods MD - 03/21/2024 1030 EDT Images from the original note were not included. The concept of ???Telemedicine?? has been described to the patient.? Patient has been informed of the anticipated benefits and possible risks.? Patient understands the information provided regardingtelemedicine, has had the opportunity to ask questions about this information, and all questions have been answered to patient???s satisfaction. Patient consents for the use of telemedicine in his/her medical care and authorizes the transmission of any relevant medical information to providers and their staff involved in patient???s medical or mental health care. Patient understands that they maybe responsible for copays, deductible or coinsurance for this service. TELEMEDICINE VIDEO VISIT Today's visit was provided through telemedicine video conferencing: I have reviewed the appropriateness of using video technology with the patient with regards to today's visit. The location of the patient : Home (where patient lives) The location of the provider: home office The following people and their roles were present for today's visit: Appointment Provider: Ariela Woods MD Samantha Steinmetz-Wood, MD Endocrinology Patient Visit Date of Service: 03/21/2024 Chief Complaint Patient presents with Thyroid Problem HPI: This is a 84 y.o. 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 In the interval pt worried about multiple symptoms including diarrhea, numbness, spasms, shaky, fatigue With labs made thyroid adjustments but TFTs within normal for age Eventually switched pt to tirosint in case it was related to allergy in thyroid med. Pt noted some improvement. 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 Patient Active Problem List Diagnosis Hypertensive disorder Tremor Vulvodynia Nontoxic multinodular goiter Fracture of finger of left hand with malunion Abnormal radiographic examination Asthma Carpal tunnel syndrome of right wrist Chronic interstitial cystitis Chronic obstructive pulmonary disease (HCC-CMS) Gastroesophageal reflux disease Hypersomnia Laceration of ear [...] pain with sciatica Paresthesias Paroxysmal atrial fibrillation (HCC-CMS) Perennial allergic rhinitis Peripheral neuropathy Positive PPD Postnasal drip Postoperative state Pruritus Radial styloid tenosynovitis Recurrent urinary tract infection Foreign body granuloma of skin Wheezing Urinary tract infection, site not specified Urinary frequency Unspecified blepharitis unspecified eye, unspecified eyelid Torn ear lobe Tibialis posterior tendinitis Solitary pulmonary nodule Excessive daytime sleepiness Atrophic vaginitis Hyperthyroidism Past Medical History: Diagnosis Date A-fib ([facility]) Abnormal chest CT Acquired complex renal cyst 07/31/2018 Activity, other involving cardiorespiratory exercise able to climb 1 FOS sometimes; gardening Arrhythmia 04/06/2023 D/T thyroid and takes Atenolol Asthma 04/06/2023 uses rescue inhaler once daily Basal cell carcinoma of skin 10/22/2021 Chronic cough COPD (chronic obstructive pulmonary disease) ([facility]) well controlled with inhalers per pt 02/17/2021 [...] CARPAL TUNNEL RELEASE Right 2019 11/11/2020 - [place] TONSILLECTOMY Allergies Allergen Reactions Dye Anaphylaxis IVP DYE Nitrofurantoin Other (See Comments) Causes bladder pain Trimethoprim Rash Losartan Other reaction(s): itchiness and redness of eyes Mirabegron Other (See Comments) Amitriptyline [employer] changes at low dose Ciprofloxacin Other (See Comments) Ectopic heart beats Elmiron [Pentosan Polysulfate Sodium] Unknown To pt Iodine And Iodide Containing Products Hives Lisinopril Other reaction(s): Unknown Pt does not recall Methimazole Other (See Comments) unknown Quinolones Other (See Comments) syncope, weakness Shellfish Derived Pt is able to eat shellfish Famotidine Other (See Comments) Other reaction(s): stomach upset There were no vitals taken for this visit. 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 Pt on tirosint which she tolerates much better and clinically and biochemically euthyroid on 112mcgdaily. Plan: Maureen was seen today for thyroid problem. Diagnoses and all orders for this visit: Postoperative hypothyroidism - TIROSINT 112 mcg capsule; Take 1 Capsule by mouth daily. Dispense Tirosint brand for allergy to generic levothyroxine formulations and synthroid. - TSH; Future - T4 FREE; Future Other orders - pantoprazole sodium (PANTOPRAZOLE ORAL); Take by mouth. - phenazopyridine (PYRIDIUM) 100 mg tablet; Take 1 Tablet by mouth 3 times daily as needed for Pain. Given labs in december/January stable, repeat TFT Labs in a few months 4-6 months Refill tirosint 112mcg daily Pt out of it and needs 1x script for pyridium --90 tabs x1. I will only fill this once since not anendo med and pt will need further fills with pcp or urologist. Pharmacy: [facility] labs Return in about 6 months (around 09/20/2024) for hypothyroidism. I spent a total of 35 minutes on the date of this encounter meeting with the patient and reviewing documentation/coordinating care as described in the above note. No procedures were performed at the time of the visit. Ariela Woods MD 03/21/2024 11:00 documented in this encounter Plan of Treatment Upcoming Encounters Date Type Department Care Team (Late st Contact Info) Description 10/17/2024 10:20 EST Telemedicine [facility] Endocrinology - [facility] [address] [place] [address] Ariela Woods MD [address] [facility] [address] [place] [address] 10/18/2024 9:15 EST Telemedicine [facility] [employer] GR[employer]ER Pelvic Medicine and Reconstructive Surgery - Medical Office Building [facility] [address] [place] [address] Kelsy Fierro MD [address] [facility] Medical Office Building, [address] [phone] documented as of this encounter Visit Diagnoses Diagnosis Postoperative hypothyroidism- Primary Postsurgical hypothyroidism documented in this encounter Discontinued Medications Medication Sig Discontinue Reason Start Date End Da te amoxicillin-clavulanate (AUGMENTIN) 500-125 mg per tablet Take 1 Tablet by mouth daily. 03/21/2024 calcitRIOL (ROCALTROL) 0.25 mcg capsule Take 1 Capsule by mouth 2 times daily. 04/14/2023 03/21/2024 calcium carbonate (TUMS) 200 mg calcium (500 mg) tablet,chewable Take 2 Tablets by mouth 4 times daily. Error 04/14/2023 03/21/2024 gabapentin (NEURONTIN) 100 mg capsule 1 Capsule every 8 hours. 11/03/2020 03/21/2024 levOFLOXacin (LEVAQUIN) 500 mg tablet Take 1 Tablet by mouth daily. 04/02/2022 03/21/2024 omeprazole (PRILOSEC) 10 mg capsule Take 2 Capsules by mouth 2 times daily. 03/21/2024 oxyCODONE (ROXICODONE) 5 mg immediate release tablet Take 1 Tablet by mouth every 4 hours as needed for Pain. Daily Max: 30 mg 04/14/2023 03/21/2024 phenazopyridine (PYRIDIUM) 100 mg tablet Take 1 Tablet by mouth 3 times daily as needed for Pain. Reorder 09/27/2021 03/21/2024 TIROSINT 112 mcg capsuleIndications:Post operative hypothyroidism Take 1 Capsule by mouth daily. Dispense Tirosint brand for allergy to generic levothyroxine formulations and synthroid. Reorder 01/20/2024 03/21/2024 documented as of this encounter Historical Medications * This list may reflect changes made after this encounter. pantoprazole sodium (PANTOPRAZOLE ORAL) Take by mouth. added in this encounter Care Teams Tug Hand Relationship Specialty Start Date End Date Campos Lopes MD [address] [place] [address] PCP - General 05/21/09 documented as of this encounter
--- OUTSIDE RECORDS SUMMARY | 2024-10-09 11:19 | XMS_ITS | Encounter Summary ---
Author Organization [facility] Address [address] [place] [address] Care Team Providers Care Load Planner Name Role Phone Campos Lopes MD Primary Care Provider [phone] Reason for Visit * Laboratory Services (Routine/Next Available) - New Request Specialty Diagnoses / Procedures Referred By Lynnette osman Referred To Contact Diagnoses S/P thyroidectomy Procedures T3, TOTAL Rajan Sanchez MD Phone: tel: fax: Referral ID Status Reason Start Date Expiration Date V isits Requested Visits Authorized [id number] New Request 07/15/2023 1 1 Encounter Details Date Type Department Care Team (Latest Contact Info) Description 09/20/2023 11:40 EST Phlebotomy Only [facility] Endocrinology - [address] [phone] Phlebotomy, [facility] S/P thyroidectomy; Postoperative hypothyroidism Social History Tobacco Use Types Packs/Day Years [...] Chari Parker RN documented in this encounter Progress Notes * Svetlana Comer MA - 09/20/2023 1140 EST A venous blood collection was performed today via venipuncture on this patient. I was supervised by Jimmy Poe D.O. who was present and immediately available in the office suite. SVETLANA COMER MA 09/20/2023 11:43 documented in this encounter Plan of Treatment Upcoming Encounters Date Type Department Care Team (Late st Contact Info) Description 10/17/2024 10:20 EST Telemedicine [facility] Endocrinology - [address] [address] Ariela Woods MD [address] [place] [phone] 10/18/2024 9:15 EST Telemedicine [facility] PROGRAM SERVICES PLANNER Pelvic Medicine and Reconstructive Surgery - Medical Office Building [facility] [address] [place], [place] [phone] Kelsy Fierro MD [address] [facility] Medical Office [facility] [address], [address] [address] documented as of this encounter Procedures Procedure Name Priority Date/Time Associated Diagnosis Comments VITAMIN D (25,OH) Routine 09/20/2023 11: 44 EST S/P thyroidectomy PTH INTACT Routine 09/20/2023 11:44 EST S/P thyroidectomy T3, TOTAL Routine 09/20/2023 11:44 EST S/P thyroidectomy TSH Routine 09/20/2023 11:44 EST Postoperative hypothyroidism T4 FREE Routine 09/20/2023 11:44 EST Postoperative hypothyroidism CALCIUM Routine 09/20/2023 11:44 EST S/P thyroidectomy documented in this encounter Results * T4 FREE (09/20/2023 11:44 EST) T4, Free 0.9 0.8 - 2.2 ng/dL 09/20/2023 14:26 EST [facility] Blood VENOUS BLOOD / Unknown Venipuncture / Unknown 09/20/2023 11:44 EST 09/20/2023 11:44 EST us Ariela Woods MD CHEMISTRY & BLOOD GAS ORDERABLES Final Result [facility] [address] [place] [address] * TSH (09/20/2023 11:44 EST) TSH 3.51 0.47 - 4.68 mIU/L 09/20/2023 14:40 EST [facility] Blood VENOUS BLOOD / Unknown Venipuncture / Unknown 09/20/2023 11:44 EST 09/20/2023 11:44 EST Narrative [facility] - 09/20/2023 14:40 EST The results of this assay can be falsely lowered due to the consumption of Biotin. Ariela Woods MD CHEMISTRY & BLOOD GAS ORDERABLES Final Result Performing Organization Address [facility] Co de Phone Number [facility] [address] [place] [address] * VITAMIN D (25,OH) (09/20/2023 11:44 EST) 25OH Vitamin D Tot 35 30 - 100 ng/mL 09/21/2023 9:56 EST [facility] Comment: Vitamin D 25,OH Interpretive Ranges: Deficiency: ??<10.0 ng/mL Insufficiency: ??10.0 - 30.0 ng/mL Sufficiency: ??30.0 - 100.0 ng/mL Toxicity: ??>100.0 ng/mL Blood VENOUS BLOOD / Unknown Venipuncture / Unknown 09/20/2023 11:44 EST 09/20/2023 11:44 EST Rajan Sanchez MD CHEMISTRY & BLOOD GAS ORDE RABLES Final Result Performing Organization Address City/[facility]/ZIP Co de Phone Number [facility] [address] [place] [address] * CALCIUM (09/20/2023 11:44 EST) Calcium 9.3 8.5 - 10.5 mg/dL 09/20/2023 14:06 EST [facility] Blood VENOUS BLOOD / Unknown Venipuncture / Unknown 09/20/2023 11:44 EST 09/20/2023 11:44 EST Rajan Sanchez MD CHEMISTRY & BLOOD GAS ORDE RABLES Final Result Performing Organization Address City/[facility]/ZIP Co de Phone Number [facility] [address] [place] [address] * PTH INTACT (09/20/2023 11:44 EST) Intact PTH 35 19 - 88 pg/mL 09/20/2023 16:08 EST [facility] Blood VENOUS BLOOD / Unknown Venipuncture / Unknown 09/20/2023 11:44 EST 09/20/2023 11:44 EST Rajan Sanchez MD CHEMISTRY & BLOOD GAS ORDE RABLES Final Result Performing Organization Address [facility] Co de Phone Number [facility] [address] [place] [address] * (ABNORMAL) T3, TOTAL (09/20/2023 11:44 EST) T3, Total 89(L) 97 - 169 ng/dL 09/20/2023 14:40 EST [facility] Blood VENOUS BLOOD / Unknown Venipuncture / Unknown 09/20/2023 11:44 EST 09/20/2023 11:44 EST Rajan Sanchez MD CHEMISTRY & BLOOD GAS ORDE RABLES Final Result Performing Organization Address City/[facility] Co de Phone Number [facility] [address] [place] [address] documented in this encounter Visit Diagnoses Diagnosis S/P thyroidectomy Other postprocedural status Postoperative hypothyroidism Postsurgical hypothyroidism documented in this encounter Care Teams Load Planner Relationship Specialty Start Date End Date Campos Lopes MD [address] [place], [place] [phone] PCP - General 05/21/09 documented as of this encounter
--- OUTSIDE RECORDS SUMMARY | 2024-10-09 11:19 | XMS_ITS | Encounter Summary ---
Author Organization [facility] Address [address] [place] [address] Care Team Providers Care Production Manager Name Role Phone Campos Lopes MD Primary Care Provider [phone] Reason for Visit * Reason Onset Date Comments Other 12/01/2023 Encounter Details Date Type Department Care Team (Late Contact Info) Description 12/01/2023 Telephone [facility] Endocrinology - [facility] [address] [place] [address] Collins Knight, PharmD [address] [place] [phone] Other Social History Tobacco Use Types Packs/Day [...] encounter Miscellaneous Notes * Telephone Encounter - Liliya Kwong - 12/02/2023 0955 EST Images from the original note were not included. Collins Knight, [facility] Terry; Endocrinology [facility]16 hours ago (17:01) SMITH Reddy. Informed the patient about LOMN uploaded and the insurance review/approval process. No action required at this time. * Telephone Encounter - Rosi Rene RN - 12/01/2023 1517 EST PAC called with patient on line, refusing to talk to nursing and demanding to talk to clinical pharmacist Collins Knight. This RN declined having patient be directly transferred to [facility] as he was seeing a patient and call needs to be triaged first. This RN did speak to patient who screaming, rude and said let me tell you how it is. This RN saidshe was getting off the phone with Her and would pass her message onto [facility]. Routing this to both Practice Circus Artist Nicole Kwong and clinical pharmacist Collins Knight as her behavior is unacceptable. Rosi Rene, RN * Telephone Encounter - Cecilia Mae - 12/01/2023 1453 EST Patient calling to speak to Ezequiel Knight. She would not give any further information. She was very rude and hung up on health science writer. documented in this encounter Plan of Treatment Upcoming Encounters Date Type Department Care Team (Late st Contact Info) Description 10/17/2024 10:20 EST Telemedicine [facility] Endocrinology - [address] [phone] Ariela Woods MD [address] [facility] [address] [place] [phone] 10/18/2024 9:15 EST Telemedicine [facility] ACID POLYMERIZATION OPERATOR Pelvic Medicine and Reconstructive Surgery - Medical Office Building [address] [address] Kelsy Fierro MD [address] [place] [address] [facility], [address] [address] documented as of this encounter Visit Diagnoses Not on filedocumented in this encounter Care Teams Production Manager Relationship Specialty Start Date End Date Campos Lopes MD [address] [place], [place] [phone] PCP - General 05/21/09 documented as of this encounter
--- OUTSIDE RECORDS SUMMARY | 2024-10-09 11:19 | XMS_ITS | Encounter Summary ---
Author Organization [facility] Address [address] [place] [address] Care Team Providers Care Poker Supervisor Name Role Phone Campos Lopes MD Primary Care Provider [phone] Encounter Details Date Type Department Care Team ([facility] Contact Info) Description 09/21/2023 Orders Only [facility] Endocrinology - [facility] [address] [place] [address] Ariela Woods MD [address] [employer] [facility] [address] [place] [address] Social History Tobacco Use Types [...] Filled Start Date End Date levothyroxine (SYNTHROID) 88 mcg tablet Take 1 Tablet by mouth daily. 90 Tablet 09/21/2023 10/12/2023 documented in this encounter Progress Notes * Ariela Woods MD - 09/21/2023 1537 EST Sent 88mcg levothryoxine documented in this encounter Plan of Treatment Upcoming Encounters Date Type Department Care Team (Late st Contact Info) Description 10/17/2024 10:20 EST Telemedicine [facility] Endocrinology - [facility] [address] [place] [address] Ariela Woods MD [address] [place] [address] [address] [place] [address] 10/18/2024 9:15 EST Telemedicine [facility] SPOOL SALVAGER Pelvic Medicine and Reconstructive Surgery - Medical Office [facility] [address] [place] [address] Kelsy Fierro MD [address] [place] [address], Medical Office [facility], [address] [address] documented as of this encounter Visit Diagnoses Not on filedocumented in this encounter Discontinued Medications Medication Sig Discontinue Reason Start Date End Da te levothyroxine (SYNTHROID) 75 mcg tablet Take 1 Tablet by mouth daily. 07/27/2023 09/21/2023 documented as of this encounter Care Teams Poker Supervisor Relationship Specialty Start Date End Date Campos Lopes MD [address] [place], [place] [phone] PCP - General 05/21/09 documented as of this encounter
--- OUTSIDE RECORDS SUMMARY | 2024-10-09 11:19 | XMS_ITS | Encounter Summary ---
Author Organization [facility] Address [address] [place] [address] Care Team Providers Care Land Commissioner Name Role Phone Campos Lopes MD Primary Care Provider [phone] Reason for Referral * Laboratory Services (Routine/Next Available) - New Request Specialty Diagnoses / Procedures Referred By [facility] Referred To Contact Diagnoses Postoperative hypothyroidism Spasm Diarrhea, unspecified type Numbness Procedures TSH Ariela Woods MD Phone: tel: fax: Referral ID Status Reason Start Date Expiration Date V isits Requested Visits Authorized [id number] New Request 10/11/2023 1 1 * Laboratory Services (Routine/Next Available) - New Request Specialty Diagnoses / [facility] Referred To Contact Diagnoses Postoperative hypothyroidism Spasm Diarrhea, unspecified type Numbness Procedures T4 FREE Ariela Woods MD Phone: tel: fax: Referral ID Status Reason Start Date Expiration Date V isits Requested Visits Authorized [id number] New Request 10/11/2023 1 1 * Laboratory Services (Routine/Next Available) - New Request Specialty Diagnoses / Procedures [facility] Referred To Contact Diagnoses Postoperative hypothyroidism Spasm Diarrhea, unspecified type Numbness Procedures COMPREHENSIVE METABOLIC PANEL (CMP) Ariela Woods MD Phone: tel: fax: Referral ID Status Reason Start Date Expiration Date V isits Requested Visits Authorized [id number] New Request 10/11/2023 1 1 * Laboratory Services (Routine/Next Available) - New Request Specialty Diagnoses / Procedures Referred By [facility] Referred To Contact Diagnoses Postoperative hypothyroidism Spasm Diarrhea, unspecified type Numbness Procedures COMPLETE BLOOD COUNT AND DIFFERENTIAL Ariela Woods MD Phone: tel: fax: Referral ID Status Reason Start Date Expiration Date V isits Requested Visits Authorized [id number] New Request 10/11/2023 1 1 Reason for Visit * Reason Onset Date Comments Coordination Of Care 10/11/2023 New/Evolving Symptoms 10/11/2023 Labs Only 10/11/2023 Encounter Details Date Type Department Care Team (Late st Contact Info) Description 10/11/2023 Telephone [facility] Endocrinology - [facility] [address] [place] [address] Ariela Woods MD [address] [facility] [address] [place] [address] Coordination Of Care; New/Evolving Symptoms; Labs Only Social History Tobacco Use Types [...] of Assessment Author No 04/13/2023 16:00 Chari Pakrer RN * Because of a physical, mental, [...] Encounter - Dinorah Brown RN - 10/11/2023 1554 EST Addressed in alternate encounter. DINORAH BROWN RN 10/11/2023 15:54 * Telephone Encounter - Aracelis Pedraza - 10/11/2023 1306 EST Patient calling. Still waiting for labs to be faxed to [facility]. . Please call patient when orders have been sent. * Telephone Encounter - Ariela Woods MD - 10/11/2023 1155 EST Called Maureen fermin. Reports- Diarrhea for 1 month Numbness hands and feet Spasms, pains, abdominal pain On vit D3, no longer on calcitriol as directed last visit On 88mcg levothyroxine Will send labs to see if the levothyroxine is too much or if she needs the calcitriol. CBC Thyroid CMP Fax--[facility] labs Asked that she please respect and speak to our triage nurses so that we can properly triage calls and plan how to respond as not always respond. Dr Ariela IRWIN.[facility] [place] [place] Supervisor in Endocrinology [facility] 10/11/23 12:10 * Telephone Encounter - Rosi Rene, RN - 10/11/2023 1051 EST This RN spoke with patient who will not talk to nursing at this time, demanding only to speak to a provider regarding her issue. Routing to Dr. English and Practice Professor Of Anthropology Nicole Kwong. Rosi Rene, RN * Telephone Encounter - Paige Brantley - 10/11/2023 0954 EST Patient calling to report symptoms to her provider States she is having pain, but will not elaborate Demands to only speak with her Provider documented in this encounter Plan of Treatment Upcoming Encounters Date Type Department Care Team (Late st Contact Info) Description 10/17/2024 10:20 EST Telemedicine [facility] Endocrinology - [facility] [address] [place] [address] Ariela Woods MD [address] [facility] [address] [place] [address] 10/18/2024 9:15 EST Telemedicine [facility] INDUSTRY SEGMENT SPECIALIST Pelvic Medicine and Reconstructive Surgery - Medical Office Building [facility] [address] [place] [address] Kelsy Fierro MD 2 [facility] Medical Office Building, [address] [place] [phone] Scheduled Orders Name Type Priority Associated Diagnoses Orde r Schedule COMPLETE BLOOD COUNT AND DIFFERENTIAL Lab Routine Postoperative hypothyroidism Spasm Diarrhea, unspecified type Numbness Expected: 10/12/2023 (Approximate), Expires: 10/11/2024 COMPREHENSIVE METABOLIC PANEL (CMP) Lab Routine Postoperative hypothyroidism Spasm Diarrhea, unspecified type Numbness Expected: 10/12/2023 (Approximate), Expires: 10/11/2024 T4 FREE Lab Routine Postoperative hypothyroidism Spasm Diarrhea, unspecified type Numbness Expected: 10/11/2023 (Approximate), Expires: 10/11/2024 TSH Lab Routine Postoperative hypothyroidism Spasm Diarrhea, unspecified type Numbness Expected: 10/11/2023 (Approximate), Expires: 10/11/2024 documented as of this encounter Visit Diagnoses Diagnosis Postoperative hypothyroidism- Primary Postsurgical hypothyroidism Spasm Abnormal involuntary movements Diarrhea, unspecified type Numbness Disturbance of skin sensation documented in this encounter Care Teams Land Commissioner Relationship Specialty Start Date End Date Campos Lopes MD [address] [place], [place] [phone] PCP - General 05/21/09 documented as of this encounter
--- OUTSIDE RECORDS SUMMARY | 2024-10-09 11:20 | XMS_ITS | Encounter Summary ---
Author Organization [facility] Address [address] [place] [address] Care Team Providers Care Reconstructive Surgeon Name Role Phone Campos Lopes MD Primary Care Provider [phone] Encounter Details Date Type Department Care Team (Late Contact Info) Description 07/18/2023 Lab Requisition [facility] Pathology & Laboratory Medicine - [facility] [address] [place] [address] Outr Resulting Lab, Provider Social History Tobacco [...] [facility] Endocrinology - [address] [address] Ariela Woods MD [address] [place] [phone] 10/18/2024 9:15 EST Telemedicine [facility] CYLINDER MACHINE OPERATOR PULP DRIER Pelvic Medicine and Reconstructive Surgery - Medical Office [address] [phone] Kelsy Fierro MD [address] [place] [address] [facility], [address] [phone] documented as of this encounter Procedures Procedure Name Priority Date/Time Associated Diagnosis Comments T3, TOTAL Routine 07/18/2023 10:36 EDT documented in this encounter Results * (ABNORMAL) T3, TOTAL (07/18/2023 10:36 EDT) T3, Total 96(L) 97 - 169 ng/dL 07/18/2023 22:44 EDT [facility] Blood VENOUS BLOOD / Unknown 07/18/2023 10:36 EDT 07/18/2023 21:40 EDT us Provider Outr Resulting Lab CHEMISTRY & BLOOD GA S ORDERABLES Final Result [facility] [address] [place] [address] documented in this encounter Visit Diagnoses Not on filedocumented in this encounter Care Teams Reconstructive Surgeon Relationship Specialty Start Date End Date Campos Lopes MD [address] [place], [place] [phone] PCP - General 05/21/09 documented as of this encounter
--- OUTSIDE RECORDS SUMMARY | 2024-10-09 11:20 | XMS_ITS | Encounter Summary ---
Author Organization [facility] Address [address] [place] [address] Care Team Providers Care Roof Assembler Name Role Phone Campos Lopes MD Primary Care Provider [phone] Encounter Details Date Type Department Care Team ([facility] Contact Info) Description 05/17/[address] [facility] [address] [place], [place] [phone] Danika Mendiola RN S/P thyroidectomy (Primary Dx) Social History Tobacco Use Types [...] documented in this encounter Miscellaneous Notes * Addendum Note - Bebe Quan MD - 05/17/2023 1109 EDTAddended by: BEBE QUAN on: 05/20/2023 18:59 Modules accepted: Orders documented in this encounter Plan of Treatment Upcoming Encounters Date Type Department Care Team (Late st Contact Info) Description 10/17/2024 10:20 EST Telemedicine [facility] Endocrinology - [address] [phone] Ariela Woods MD [address] [place] [phone] 10/18/2024 9:15 EST Telemedicine [facility] CORN COOKER Pelvic Medicine and Reconstructive Surgery - Medical Office Building [facility] [address] [place] [address] Kelsy Fierro MD [address] [place] [address] Medical Office [facility], [address] [phone] documented as of this encounter Results * T4 FREE (05/17/2023 11:48 EDT) Pathologist [facility] T4, Free 1.7 0.8 - 2.2 ng/dL 05/20/2023 20:11 EDT [facility] Blood VENOUS BLOOD / Unknown Venipuncture / Unknown 05/17/2023 11:48 EDT 05/17/2023 12:16 EDT Bebe Quan MD CHEMISTRY & BLOOD GAS ORDE RODRÍGUEZ Final Result [facility] [address] [place] [address] * T3, TOTAL (05/17/2023 11:48 EDT) [facility] T3, Total 125 97 - 169 ng/dL 05/20/2023 20:25 EDT [facility] Blood VENOUS BLOOD / Unknown Venipuncture / Unknown 05/17/2023 11:48 EDT 05/17/2023 12:16 EDT Bebe Quan MD CHEMISTRY & BLOOD GAS ORDE RODRÍGUEZ Final Result [facility] [address] [place] [id number] * (ABNORMAL) TSH (05/17/2023 11:48 EDT) [facility] TSH <0.02(L) 0.47 - 4.68 mIU/L 05/17/2023 13:19 EDT [facility] Blood VENOUS BLOOD / Unknown Venipuncture / Unknown 05/17/2023 11:48 EDT 05/17/2023 12:16 EDT Narrative [facility] - 05/17/2023 13:19 EDT The results of this assay can be falsely lowered due to the consumption of Biotin. us Bebe Quan MD CHEMISTRY & BLOOD GAS LINDSEY ARREGUIN Final Result [facility] [address] [place] [address] documented in this encounter Visit Diagnoses Diagnosis S/P thyroidectomy- Primary Other postprocedural status documented in this encounter Care Teams Roof Assembler Relationship Specialty Start Date End Date Campos Lopes MD [address] [place], [place] [phone] PCP - General 05/21/09 documented as of this encounter
--- OUTSIDE RECORDS SUMMARY | 2024-10-09 11:20 | XMS_ITS | Encounter Summary ---
Author Organization [facility] Address [address] [place] [address] Care Team Providers Care Caregivers Non Medical Name Role Phone Campos Lopes MD Primary Care Provider [phone] Encounter Details Date Type Department Care Team (Late Contact Info) Description 07/21/2023 Lab Requisition [facility] Pathology & Laboratory Medicine - [facility] [place] [address] [place] [address] Outr Resulting Lab, Provider Social History Tobacco [...] Date of Assessment Author No 04/13/2023 16:00 hCari Parker RN documented as of this encounter [...] Contact Info) Description 10/17/2024 10:20 EST Telemedicine [facility] Endocrinology - [address] [address] Ariela Woods MD [address] [place] [phone] 10/18/2024 9:15 EST Telemedicine [facility] [employer] Pelvic Medicine and Reconstructive Surgery - Medical Office [address] [phone] Kelsy Fierro MD [address] [place] [address] Office [facility], [address] [phone] documented as of this encounter Procedures Procedure Name Priority Date/Time Associated Diagnosis Comments VITAMIN D (25,OH) Routine 07/21/2023 14: 34 EDT PTH INTACT Routine 07/21/2023 14:34 EDT documented in this encounter Results * VITAMIN D (25,OH) (07/21/2023 14:34 EDT) 25OH Vitamin D Tot 31 30 - 100 ng/mL 07/22/2023 10:30 EDT [facility] Comment: Vitamin D 25,OH Interpretive Ranges: Deficiency: ??<10.0 ng/mL Insufficiency: ??10.0 - 30.0 ng/mL Sufficiency: ??30.0 - 100.0 ng/mL Toxicity: ??>100.0 ng/mL Blood VENOUS BLOOD / Unknown 07/21/2023 14:34 EDT 07/21/2023 22:01 EDT us Provider Outr Resulting Lab CHEMISTRY & BLOOD GA S ORDERABLES Final Result Performing Organization Address [facility] Co de Phone Number [facility] [address] [place] [address] * PTH INTACT (07/21/2023 14:34 EDT) Intact PTH 29 19 - 88 pg/mL 07/21/2023 22:54 EDT [facility] Blood VENOUS BLOOD / Unknown 07/21/2023 14:34 EDT 07/21/2023 22:01 EDT Provider Outr Resulting Lab CHEMISTRY & BLOOD GA S ORDERABLES Final Result Performing Organization Address [facility] Co de Phone Number [facility] [address] [place] [address] documented in this encounter Visit Diagnoses Not on filedocumented in this encounter Care Teams Caregivers Non Medical Relationship Specialty Start Date End Date Campos Lopes MD [address] [place] [address] PCP - General 05/21/09 documented as of this encounter
--- OUTSIDE RECORDS SUMMARY | 2024-10-09 11:20 | XMS_ITS | Encounter Summary ---
Author Organization [facility] Address [address] [place] [address] Care Team Providers Care Cell Preparer Name Role Phone Campos Lopes MD Primary Care Provider Reason for Visit * Reason Onset Date Comments Medication Problem 06/23/2023 Encounter Details Date Type Department Care Team ([facility] Contact Info) Description 06/23/2023 Telephone [facility] [address], [place] [phone] Rajan Sanchez MD [address] [facility], [address] [place] [address] Medication Problem Social History Tobacco Use Types Packs/Day Years [...] Date of Assessment Author No 04/13/2023 16:00 Chrai Parker RN documented as of this encounter Mental Status * Because of a physical, mental, or emotional condition, do you have serious difficulty concentrating, remembering, or making decisions? (5 years old or older) Answer Entry Date Author No 04/13/2023 16:00 Chari Parker RN documented in this encounter Miscellaneous Notes * Telephone Encounter - Albina Carey RN - 06/23/2023 0858 EDT Called and spoke with patient. Patient a poor historian. 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 Patient states they are worried about anaphylaxis from Levothyroxine. This nurse asked patient if they were having SOB or difficulty breathing. Patient states they are not, they are experiencing itching. Patient states this itching started 3 weeks ago. Patient has been taking Levothyroxine since April. This nurse explained to patient that they should be assessed by their PCP as we cannot confirm that this is related to the Levothyroxine as itching did not start until about 3 weeks ago per patient. Patient states I already reached out to my PCP. This nurse asked what the PCP recommendations were and patient states it doesn'tmatter, I am talking to you now. Do you know what you are doing? This nurse explained to the patient that itching can be related to many things and it makes the most sense for them to see their PCP first. If PCP suggest they follow up with ENT, we would be happy to do so. 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 I will reach out via [employer] to the doctor themselves. Patient then disconnected call. * Telephone Encounter - Ros Cuellar - 06/23/2023 0845 EDT Patient calling to report side effects from levothyroxine that she is very concerned about. Declined to elaborate. Please call back to discuss. documented in this encounter Plan of Treatment Upcoming Encounters Date Type Department Care Team (Late st Contact Info) Description 10/17/2024 10:20 EST Telemedicine [facility] Endocrinology - [address] [phone] Ariela Woods MD [address] [phone] 10/18/2024 9:15 EST Telemedicine [facility] Pelvic Medicine and Reconstructive Surgery - Medical Office [address] [phone] Kelsy Fierro MD 2 [facility] Medical Office [facility], [address] [phone] documented as of this encounter Visit Diagnoses Not on filedocumented in this encounter Care Teams Cell Preparer Relationship Specialty Start Date End Date Campos Lopes MD [address] [place] [address] PCP - General 05/21/09 documented as of this encounter
--- OUTSIDE RECORDS SUMMARY | 2024-10-09 11:20 | XMS_ITS | Encounter Summary ---
Author Organization [facility] Address [address] [place] [address] Care Team Providers Care Bereavement Counselor Name Role Phone Campos Lopes MD Primary Care Provider [phone] Reason for Visit * Reason Onset Date Comments Discuss Surgery 04/11/2023 Encounter Details Date Type Department Care Team ([facility] Contact Info) Description 04/11/2023 Telephone [facility] [address] [place], [place] [phone] Rajan Sanchez MD 111 [facility], [address] [place] [address] Discuss Surgery Social History Tobacco Use Types Packs/Day Years [...] as of this encounter Functional Status * Because of a physical, mental, or emotional condition, does this person have difficulty doing errands alone such as visiting a doctor's office or shopping? Answer Date of Assessment Author Yes 07/11/2017 9:19 EDT documented as of this encounter Mental Status * Because of a physical, mental, or emotional condition, does this person have serious difficulty concentrating, remembering, or making decisions? Answer Entry Date Author No 07/11/2017 9:19 EDT documented in this encounter Miscellaneous Notes * Telephone Encounter - Ariela Alonzo - 04/11/2023 1258 EDT Called Patient/Patients Parent or Guardian to discuss surgery on 04/13/2023. Advised Patient/Patients Parent or Guardian to arrive no later than 7:45 AM as surgery is set to begin around 9:45 AM. Advised no food after midnight however clear, fat-free beverages were acceptable until 4 hours prior to the surgical start time. Children under 1 year of age may have breast milk up to 4 hours prior and formula up to 6 hours prior to the surgical start time. Consent Obtained on DAY OF SURGERY. Received H&P from Dr. Campos Lopes on 03/17/2023 as well as an EKG and Lab Report. Faxed necessary documentation to Pre-Op on 04/11/2023. Patient had a question about a medication NOT listed in her medication list - ATENELOL - left a message for the PAT line. Patient/Patients Parent or Guardian understands the information provided regarding surgery and has had the opportunity to ask additional questions about this information. Additional questions have been answered to the patient's satisfaction. documented in this encounter Plan of Treatment Upcoming Encounters Date Type Department Care Team (Late st Contact Info) Description 10/17/2024 10:[address] [facility] Endocrinology - [facility] [address] [place] [address] Ariela Woods MD 62 [facility] [address] [place] [phone] 10/18/2024 9:[address] [facility] [employer] Pelvic Medicine and Reconstructive Surgery - Medical Office [facility] [address] [place], [place] [address] Kelsy Fierro MD [facility], Medical Office Building, [address] [place] [address] documented as of this encounter Visit Diagnoses Not on filedocumented in this encounter Care Teams Bereavement Counselor Relationship Specialty Start Date End Date Campos Lopes MD [address] [place], [place] [id number] PCP - General 05/21/09 documented as of this encounter
--- OUTSIDE RECORDS SUMMARY | 2024-10-09 11:20 | XMS_ITS | Encounter Summary ---
Author Organization [facility] Address [address] [place] [address] Care Team Providers Care Residential Door Installer Name Role Phone Campos Lopes MD Primary Care Provider [phone] Reason for Visit * Auth/Cert (Routine) Specialty Diagnoses / Procedures Referred By Contac t Referred To Contact Diagnoses Hyperthyroidism Procedures [facility] THYROIDECTOM[facility] THYROIDECTOMY, TOTAL Referral ID Status Reason Start Date Expiration Date Visits Re quested Visits Authorized [id number] 1 Encounter Details Date Type Department Care Team (Late st Contact Info) Description 04/13/2023 9:50 EDT - 04/13/2023 13:35 EDT Surgery [facility] OR [address] [place] [address] [phone] Rajan Sanchez MD [address] [facility], [facility], [address] [place] [address] THYROIDECTOMY, TOTAL [21303 (CPT??)] Surgery Details Date/Time Status Location OR Service Patient Class Case Class Case Type Trauma Case? 04/13/2023 0950 Posted [facility] OR [facility] 02 ENT Extended Stay H - Elective Panel 1 Procedure LRB Anes Op Region Wound Class Comments THYROIDECTOMY, TOTAL N/A General Neck Class I/ Clean Surgeon Surgeon Role Service Panel Rajan Sanchez MD Primary ENT 1 Kayden Shaffer MD Resident - Assisting ENT 1 documented in this encounter Social History Tobacco [...] Sign Reading Time Taken Comments Blood Pressure 151/77 04/13/2023 1332 EDT Pulse 83 04/13/2023 1309 EDT Temperature 36.4 ??C (97.5 ??F) 04/13/2023 1309 EDT Respiratory Rate 11 04/13/2023 1332 EDT Oxygen Saturation 98% 04/13/2023 1332 EDT Inhaled Oxygen Concentration - - Weight 78.6 kg (173 lb 4.5 oz) 04/13/2023 0842 E DT Height 165.1 cm (5' 5) 04/13/2023 0842 EDT Body Mass Index 28.84 04/13/2023 0842 EDT documented in this encounter Functional Status * [...] Chari Parker RN documented in this encounter Discharge Summaries * Allyson Bowman MD - 04/14/2023 0833 EDT Surgery Discharge Summary Primary Care Provider: Campos Lopes Attending Physician: Rajan Sanchez MD Admit Date: 04/13/2023 Discharge Date: 04/14/2023 Disposition: Home or self care Problems and Procedures Admitting Diagnosis: Grave's disease Principal/Final Diagnosis: Same Additional Problems Managed in the Hospital Active Hospital Problems Diagnosis Date Noted ??? *Subclinical hyperthyroidism 10/15/2021 ??? Hyperthyroidism 01/26/2023 Resolved Hospital Problems No resolved problems to display. Principal Procedure: Total thyroidectomy Date: 04/13/2023 Secondary Procedures: none Hospital Course The patient was admitted the day of surgery, following an uncomplicated procedure. Postoperatively,the patient was transferred to the floor, where she remained stable throughout the remainder of herhospitalization. On post- operative day one the patient was found to have a flat neck without hematoma. PTH was found to be <6. Patient was discharged with calcitriol and tums. Prior to discharge, she was tolerating an oral diet, had adequate pain control with oral medications and was ambulating without assistance. The patient was discharged in stable condition on the medications below and willplan to follow- up with Rajan Sanchez MD in the outpatient clinic. If available at the time of discharge, lab results are included below. If these results are not available, the patient will be called with the results and informed of any medication changes. Allergies and Immunizations Allergies Allergen Reactions ??? Dye Anaphylaxis IVP DYE ??? Nitrofurantoin Other (See Comments) Causes bladder pain ??? Trimethoprim Rash ??? Losartan Other reaction(s): itchiness and redness of eyes ??? Mirabegron Other (See Comments) ??? Amitriptyline HEALTH UNDERWRITER changes at low dose ??? Ciprofloxacin Other (See Comments) Ectopic heart beats ??? Elmiron [Pentosan Polysulfate Sodium] Unknown To pt ??? Iodine And Iodide Containing Products Hives ??? Lisinopril Other reaction(s): Unknown Pt does not recall ??? Methimazole Other (See Comments) unknown ??? Quinolones Other (See Comments) syncope, weakness ??? Shellfish Derived Pt is able to eat shellfish ??? Famotidine Other (See Comments) Other reaction(s): stomach upset Immunization History Administered Date(s) Administered ??? Covid-19 mRNA Vaccine (MODERNA COVID-19) PF 0.5 ml IM (12 yrs+) 12/08/2020, 01/05/2021, 08/18/2021 ? ? Influenza Vaccine =>3yo Split IM 06/28/2016 ??? Influenza Vaccine High Dose (FLUZONE HIGH DOSE) PF 0.7 ml IM (65 yrs+) 07/31/2018 ??? Influenza Vaccine MDCK Quad (FLUCELVAX) PF 0.5 ml IM (4 yrs+) 07/31/2019 ??? Influenza Vaccine Quad (AFLURIA) PF 0.5 ml IM (3 yrs+) 07/31/2020 ??? Influenza Vaccine Quad (FLUZONE) MDV w/preserv 0.5 ml IM (6 mos+) 09/13/2017, 07/31/2018, 07/10/2019 ??? Influenza Vaccine Quad High Dose (FLUZONE HIGH DOSE) PF 0.7 ml IM (65 yrs+) 07/29/2021 ??? Pneumococcal Conjugate Vaccine 13-Valent (PCV13) (PREVNAR-13) 0.5 mL IM (6 wks+) 06/10/2015 ? ? Pneumococcal Polysaccharide (PPSV23) Vaccine (PNEUMOVAX-23) =>2YO SQ/IM 10/12/1996, 11/15/2007 ? ? Tdap Vaccine =>7YO IM 06/10/2015 Transition of Care Plans Condition at Discharge Excellent Assessment at Discharge Vital signs: Patient Vitals for the past 12 hrs: BP Heart Rate Resp Temp SpO2 O2 Device 04/14/23 0614 129/50 81 BPM 16 35.9 ??C (96.6 ??F) 94 % None Physical Exam at Discharge General: alert, cooperative, no distress Lungs: Non-labored breathing on room air HEENT: Midline neck incision is clean, dry, and intact with overlying dermabond. Neck is soft without hematoma. No voice hoarseness or change in pitch. Results Pending at Discharge Test results still pending from this admission Procedure Component Value Units Date/Time SURGICAL PATHOLOGY [[id number]] Collected: 04/13/23 1153 Lab Status: In process Specimen: Tissue from Thyroid Updated: 04/13/23 1438 Relevant Studies at Discharge None. Last Lab Results at Discharge PTH <6 Discharge Follow Up Appointments Scheduled with [facility] in the next 3 months Upcoming Appointments Apr 29, 2023 15:30 Post Op with Rajan Sanchez MD [facility] ENT- [facility] (--) [address] [place] [address] [phone] Carlton Quiles, MS4 Otolaryngology I was present with the medical student for the history, exam, medical decision making documented byhim/her. I have personally performed my own physical exam and medical decision making. I have verified and agree with (or, as indicated, have edited) the medical student's documentation. Allyson Bowman MD 04/14/23 8:53 Cosigned by Rajan Sanchez MD at 04/15/2023 8:37 EDT documented in this encounter Medications at Time of Discharge albuterol 90 mcg/actuation inhaler Inhale 1-2 Puffs as directed every 6 hours as needed for Wheezing. Reported on 01/05/2017 ascorbic acid, vitamin C, 500 mg capsule every 8 hours. atenoloL (TENORMIN) 25 mg tablet Take 1 Tablet by mouth daily. 10/19/2021 ergocalciferol, vitamin D2, 2,000 unit tablet Take by mouth daily. 1000 IU fluticasone propionate (FLONASE) 50 mcg/actuation nasal spray fluticasone propionate 50 mcg/actuation nasal spray,suspension as needed glycopyrrolate-f ormoteroL (BEVESPI AEROSPHERE) 9-4.8 mcg HFA aerosol inhaler BEVESPI AEROSPHERE 9-4.8 MCG/ACT AERO 09/09/2020 ibuprofen (MOTRIN) 600 mg tablet Take 1 Tablet by mouth every 6 hours as needed for Pain. 04/14/2023 ipratropium (ATROVENT) 42 mcg (0.06 %) nasal spray USE 2 SPRAYS IN EACH NOSTRIL THREE TIMES DAILY FOR 5 DAYS 11/23/2021 ipratropium-albu teroL (DUONEB) 0.5 mg-3 mg(2.5 mg base)/3 mL nebulizer solution IPRATROPIUM-ALBUT ABHIJIT 0.5-2.5 (3) MG/3ML SOLN 09/18/2020 acetaminophen (TYLENOL) 500 mg tablet Take 2 Tablets by mouth every 6 hours as needed for Pain. 04/14/2023 4 calcitRIOL (ROCALTROL) 0.25 mcg capsule Take 1 Capsule by mouth 2 times daily. 60 Capsule 11 04/14/2023 4 calcium carbonate (TUMS) 200 mg calcium (500 mg) tablet,chewable Take 2 Tablets by mouth 4 times daily. 240 Tablet 11 04/14/2023 4 gabapentin (NEURONTIN) 100 mg capsule 1 Capsule every 8 hours. 11/03/2020 4 levOFLOXacin (LEVAQUIN) 500 mg tablet Take 1 Tablet by mouth daily. 04/02/2022 4 levothyroxine (SYNTHROID) 125 mcg tablet Take 1 Tablet by mouth daily before breakfast. 30 Tablet 11 04/15/2023 3 omeprazole (PRILOSEC) 10 mg capsule Take 2 Capsules by mouth 2 times daily. 4 oxyCODONE (ROXICODONE) 5 mg immediate release tablet Take 1 Tablet by mouth every 4 hours as needed for Pain. Daily Max: 30 mg 2 Tablet 04/14/2023 4 phenazopyridine (PYRIDIUM) 100 mg tablet Take 1 Tablet by mouth 3 times daily as needed for Pain. 09/27/2021 4 documented as of this encounter Ordered Prescriptions Prescription Sig Dispense Quantity Refills Last Filled Start Date End Date ibuprofen (MOTRIN) 600 mg tablet Take 1 Tablet by mouth every 6 hours as needed for Pain. 04/14/2023 oxyCODONE (ROXICODONE) 5 mg immediate release tablet Take 1 Tablet by mouth every 4 hours as needed for Pain. Daily Max: 30 mg 2 Tablet 04/14/2023 4 levothyroxine (SYNTHROID) 125 mcg tablet Take 1 Tablet by mouth daily before breakfast. 30 Tablet 11 04/15/2023 3 calcium carbonate (TUMS) 200 mg calcium (500 mg) tablet,chewable Take 2 Tablets by mouth 4 times daily. 240 Tablet 11 04/14/2023 4 calcitRIOL (ROCALTROL) 0.25 mcg capsule Take 1 Capsule by mouth 2 times daily. 60 Capsule 11 04/14/2023 4 acetaminophen (TYLENOL) 500 mg tablet Take 2 Tablets by mouth every 6 hours as needed for Pain. 04/14/2023 4 documented in this encounter Discharge Disposition Disposition Code Departure Means Destination Comment s Home or Self Residential documented in this encounter Progress Notes * Maxime Alexander RN - 04/14/2023 1047 EDT Nursing Discharge Note D: Patient noted with discharge orders to: home. A: Prescriptions e-scripted. Reviewed discharge instructions and prescriptions with Patient IV d/c'd. Belongings collected and sent home with patient. R: Patient verbalized understanding of discharge instructions and denied further questions. MAXIME ALEXANDER RN 04/14/2023 10:47 * Anastacio Noble RN - 04/13/2023 1840 EDT FOUR EYES SKIN ASSESSMENT Four Eyes skin assessment was performed on admission to the unit by Anastacio Noble RN and Carina Merrill RN. Patient has the following devices at the time of this assessment: Peripheral IV. Device related pressure injury present? No Areas of concern: Fill in detail for areas of concern [] Occiput [] Nose [] Ear [] Lip [] Scapula [] Spinous process [] Shoulder [] Elbow [] Iliac crest [] Sacrum/coccyx [] Ischial tuberosity [] Trochanter [] Knee [] Malleolus [] Heel [] Toe [x] Other: Surgical incision to anterior neck, secured with dermabond, no drainage noted, no dressing in place. Last Vic Score: 23 Instructions: ??? Add LDA for any identified wounds ??? Add Fillmore image for any suspected PI or non surgical wounds ??? Order wound consult if suspected PI identified ? ? If Vic is < or = to 16, initiate Pressure Injury Prevention Bundle ([id number]). 04/13/2023 18:40 * Aracelis Gilbert, RT - 04/13/2023 1824 EDT Respiratory Consult/Progress Note Indications for Respiratory therapy: eval Data Vitals: Heart Rate: 83 BPM, Resp: 18, SpO2: 94 % FIO2/O2 Device: O2 Flow Rate (L/min): 2 l/min, , O2 Device: Nasal cannula, RT Orders: Albuterol PRN Protocol Scoring: Bronchodilator/Inhalation Therapy Frequency Bronchodilator - Clinical Indications: History of COPD Breath Sounds: Clear Response: No change / no treatment Pulse: <100 Resp Rate: <18 SOB: None Total Score: 0 Frequency Based On Total Score: 0-4 = PRN 5-7 = QID 8-10 = Q4H 11-12 = Q2H Airway Clearance Therapy Frequency Airway Clearance - Clinical Indications: No clinical indications Breath Sounds: Clear / diminished Sputum: Small (tsp) / None Consistency: None Cough Effort: Strong/ non-productive Color: None Total Score: 0 Frequency Based On Total Score: 0-3 = PRN 4-6 = QID and PRN 7-9 = Q4H and PRN 10-11 = Q2H and PRN Hyperinflation Therapy Frequency Hyperinflation - Clinical Indications: No clinical indications Breath Sounds: Clear Surgery: No X-Ray / Atelectasis: No O2 Requirements: 0-2 L above baseline Mobility Status: Mobile / at baseline Total: 1 Frequency Based On Total Score: 0-3 = PRN 4-6 = QID and PRN 7-9 = Q4H and PRN 10-12 = Q2H and PRN Action/Events Respiratory events; HX COPD/ASTHMA, albuterol MDI prn used at home, No oxygen used at home, no cpap used at home. Can use spacer and can squeeze inhaler. Nurse admin RT DANY 04/13/23 documented in this encounter H&P Notes * Kayden Shaffer MD - 04/13/2023 0947 EDT The preoperative history and physical which was performed within 30 days of this procedure has been reviewed and the clinically appropriate elements of the physical examination have been repeated. There are no changes to the documented history and physical or if so such changes are documented below KAYDEN SHAFFER MD 04/13/2023 9:47 Cosigned by Rajan Sanchez MD at 04/13/2023 15:36 EDT Source Note - FINANCIAL SERVICES CONSULTANT, SCAN 2 - 03/22/2023 10:50 EDT documented in this encounter OR Notes * OR Surgeon - Kayden Shaffer MD - 04/13/2023 1258 EDT OPERATIVE REPORT SERVICE DATE: 04/13/2023 SURGEON: Rajan Sanchez MD SYSTEMS PLANNER: Barber Shaffer MD PREOPERATIVE DIAGNOSIS: Grave's disease. POSTOPERATIVE DIAGNOSIS: Same. PROCEDURE: Total thyroidectomy. ANESTHESIA: General endotracheal with NIM. FINDINGS: 1. Total thyroid gland excised. 2. Bilateral recurrent laryngeal nerves identified and preserved. Stimulated well at end of case. 3. Bilateral superior and inferior parathyroid glands identified and preserved by anatomic dissection. NARRATIVE: The patient was identified in preop hold where all pertinent questions were answered. The patient was brought back to the operating room where a lynch moment was assured, in accordance with the WHO standards. The patient was placed in supine position and adequate anesthesia was administered. The NIM endotracheal tube nerve monitoring system was set up and appeared to be functioning well throughout the case. A 4 cm horizontal midline neck incision was planned out using a marking pen. This was infiltrated with 9 mL of 0.5% Marcaine with epinephrine. Thereafter, the patient was prepped and draped in the usual fashion for thyroid surgery. The planned neck incision was made with a 10-blade. This was taken down to subplatysmal plane where superiorly and inferiorly based subplatysmal flaps were elevated. Strap muscles were in the midline raphe, and the strap muscles were carefully elevated off the right thyroid lobe. The thyroid gland was retracted medially and inferior, superior, and lateralattachments were carefully dissected out using bipolar cautery and Schnidt forceps. The recurrent laryngeal nerve was identified in the thyroid bed and stimulated well at the conclusion of dissection. The superior and inferior parathyroid glands were identified and preserved. Attention was then turned to the contralateral thyroid lobe, which was retracted medially and freedfrom inferior, superior, and lateral attachments in the same manner. The associated recurrent laryngeal nerve was identified in the thyroid bed and stimulated well at the conclusion of dissection. The superior and inferior parathyroid glands were identified and preserved. The thyroid specimen was then dissected off of the trachea and sent for routine pathologic evaluation. The wound bed was thereafter copiously irrigated and evaluated for hemostasis, which had been achieved. Valsalva maneuvers were performed and hemostasis continued to be achieved. After placement of Avitene gauze in the operative bed the incision was closed in multiple layers. The strap muscles werereapproximated with a horizontal mattress suture, using monocryl suture. The platysmal and deep dermal layers were then closed in a buried, interrupted fashion using monocryl suture. The skin was closed with Dermabond. The patient tolerated the procedure well and went to postanesthesia care unit for recovery. Dr Sanchez was present and actively participated in the entire case. ESTIMATED BLOOD LOSS: 10 mL FLUIDS: 700 mL Lactated Ringer's. URINE OUTPUT: Not recorded. SPECIMENS: Thyroid tissue for routine pathologic evaluation. CULTURES: None. DRAINS, PACKS AND FOREIGN MATERIALS RETAINED: Avitene in thyroid bed. COMPLICATIONS: None. CONDITION: Good to PACU. Unless otherwise noted, there were no complications, no blood loss, no cultures obtained, no specimens removed, and no drains retained. Barber Shaffer MD Otolaryngology PGY3 04/13/2023, 13:02 Cosigned by Rajan Sanchez MD at 04/20/2023 12:34 EDT documented in this encounter Miscellaneous Notes * Plan of Care - Rosina Thorne - 04/14/2023 0919 EDT 04/14/23 0918 Discharge Delay Risk Assessment 2. Hospitalization -- 3. Family Structure 2 Major Barrier day total 1-6 1 Minor or major discharge risk delay(s) present? No discharge barriers identified Does the patient meet criteria to be escalated? No Initial assessment status Initial assessment complete? Yes Maureen Thomas 1940 Subclinical hyperthyroidism Chart review completed and discussed the plan of care with the direct care RN and/or primary care team. Primary Insurance: Medicare ACO [place] Secondary Insurance: Medicaid [place] Patient with no apparent Case Management needs at this time. No housing, transportation, insurance,resources concerns identified at this time. Supports in place to achieve a safe post-hospital transition. No identified barriers to accessing necessary care and/or follow-up after discharge. bag maker/Bench Repair Technician will continue to follow patient's progress and remain available if situation changes for coordination of care, psychosocial support and/or discharge planning. ROSINA THORNE 04/14/2023 9:19 Rosina Thorne LMSW Crystallographer II Pager: [phone] * Plan of Care - Zay Mota RN - 04/14/2023 0234 EDT Problem: High Fall Risk: Goal: Patient Will Remain Free from Fall-Related Injury Outcome: Ongoing Problem: Safety: Goal: Will remain free from falls Outcome: Ongoing Problem: Pain: Goal: Pain level will decrease Outcome: Ongoing Problem: Skin Integrity: Goal: Signs of wound healing will improve Outcome: Ongoing Problem: Coping: Goal: Level of anxiety will decrease Outcome: Ongoing Data: Patient AAOx3, POD 0 total thyroidectomy. Patient seems very anxious about pain, states she has never felt this pain before. States 4/10 pain in surgical site. However, she is able to swallowwithout any issues. Continent x2, independent, can walk to bathroom well. Action: Q8H vitals check in place. Oxycodone PO, ibuprofen PO, and tylenol PO given. Response: Patient remains safely in bed, unable to sleep. Vitals WDL. Still anxious about pain. Rates pain 8/10 now. Ice pack, emotional support, and hot tea (which she stated it is very soothing and helpful) given. Will continue to monitor. ZAY MOTA RN 04/14/2023 2:36 documented in this encounter Plan of Treatment Upcoming Encounters Date Type Department Care Team (Late st Contact Info) Description 10/17/2024 10:20 EST Telemedicine [facility] Endocrinology - [address] [phone] Ariela Woods MD [address] [phone] 10/18/2024 9:15 EST Telemedicine [facility] LETTERSET PRESS SET UP OPERATOR Pelvic Medicine and Reconstructive Surgery - Medical Office Building [address] [phone] Kelsy Fierro MD [address] [place] [address] Medical Office [facility], [address] [phone] documented as of this encounter Procedures Procedure Name Priority Date/Time Associated Diagnosis Comments PTH INTACT Routine 04/13/2023 13:48 EDT SURGICAL PATHOLOGY Routine 04/13/2023 11 :53 EDT THYROIDECTOMY, TOTAL 04/13/2023 10:20 EDT Hyperthyroidism ECG REPORT - SCANNED 03/23/2023 13:47 EDT documented in this encounter Results * (ABNORMAL) PTH INTACT (04/13/2023 13:48 EDT) Intact PTH <6(L) 19 - 88 pg/mL 04/13/2023 15:58 EDT [facility] Blood VENOUS BLOOD / Unknown Venipuncture / Unknown 04/13/2023 13:48 EDT 04/13/2023 14:13 EDT us Kayden Shaffer MD CHEMISTRY & BLOOD GAS ORDERABLE S Final Result [facility] [address] [place] [address] * SURGICAL PATHOLOGY (04/13/2023 11:53 EDT) Note to Patient The following pathology results have been interpreted by your pathologist and may be available to you before your health provider has had the opportunity to review them. Please allow time for your provider to receive these results and explore management options, if applicable. 04/18/2023 11:17 [facility] Final Diagnosis A. THYROID, TOTAL THYROIDECTOMY: - Multinodular hyperplasia with focal dystrophic calcification. - Two benign lymph nodes. 04/18/2023 11:17 [facility] Attestation There was significant resident/fellow involvement in the diagnostic evaluation of this case. By the signature below, the attending physician certifies that they have personally conducted a gross and/or microscopic examination of the described specimens and rendered or confirmed the above diagnosis. 04/18/2023 11:17 [facility] at 1117 Clinical History Hyperthyroidism 04/18/2023 11:17 [facility] Gross Description A. Received in normal saline labelled with proper identification (intials E, B) and total thyroidectomy, stitch right superior is a total thyroid gland oriented as per the requisition. The specimen has a combined weight of 39.5 g and includes the right lobe ( 5.3 cm superior to inferior, 3.1 cm right to left, 2.9 cm anterior to posterior), left lobe ( 4.8 cm superior to inferior, 1.8 cm right to left, 2.6 cm anterior to posterior) and isthmus ( 2.5 cm superior to inferior, 1.4 cm right to left, 0.8 cm anterior to posterior). The capsule is intact. Overall the thyroid gland has nodular appearance, with 1-3 nodules protruding from the surface on each side. The right lobe is serially sectioned from superior (level 1) to inferior (level 13) to reveal well encapsulated, cystic nodules filled with transparent, gelatinous substance in all levels. A translucent, cream colored, well-circumscribed cyst with a more solid center (0. 4 x 0.2 x 0.2 cm) is identified in level 2. Firm calcification is identified in levels 5 and 6 (1.0 x 0.7 x 0.6 cm it is located 0.6 cm from the nearest ? other? margin and over 1 cm from the nearest posterior and isthmus margin. Additional calcification within the cystic structure is identified in level 9-13. It measures up to 1.3 cm in greatest dimension by 0.9 cm, and abut B ? other? margin it is 0.7 cm from the isthmus. Within the isthmus is identified additional calcifications (level 8 -12).The isthmus also appears cystic and gelatinous. The left lobe is serially sectioned from superior (level 1) to inferior (level 13 ) to reveal a uniformly, multiloculated cystic thyroid filled with opaque white to transparent orange-brown, gelatinous substance. The isthmus is also cystic and filled with a gelatinous substance. Transitional Kindergarten Teacher sections are submitted as follows: INK BAUMAN Black-posterior surface Red-isthmus region Blue-remaining outer surfaces BLOCK BAUMAN A1- right lobe, level 1 A2-A3- right lobe, level 5, thinned (1 of the thinned sections submitted) A4- right lobe, level 12, including isthmus A5- left lobe, level 1 A6- left lobe, level thick A7- left lobe, level 11, including isthmus A8- left lobe, level 13, including isthmus ROSINA COATES MD PhD 04/14/2023 15:12 04/18/2023 11:17 [facility] Resident/Juan Carlos w: Rosina Coates MD PhD 04/18/2023 11:17 [facility] Performing Lab [facility] 11:17 EDT [facility] Scanned Images 04/18/2023 11:17 EDT [facility] Tissue SPECIMEN FROM THYROID / Unknown 04/13/2023 11:53 EDT 04/13/2023 14:38 EDT us Rajan Sanchez MD PATHOLOGY ORDERABLES Final Result [facility] [address] [place] [address] * ECG REPORT - SCANNED (03/23/2023 13:47 EDT) 03/23/2023 13:4 7 EDT us Scan 2 Music Industry Internship PROCEDURE/MINOR SURGICAL OR DERABLES Final Result documented in this encounter Visit Diagnoses Diagnosis Subclinical hyperthyroidism- Primary Thyrotoxicosis without mention of goiter or other cause, without mention of thyrotoxic crisis or storm Hyperthyroidism Thyrotoxicosis without mention of goiter or other cause, without mention of thyrotoxic crisis or storm Hyperthyroidism Thyrotoxicosis without mention of goiter or other cause, without mention of thyrotoxic crisis or storm documented in this encounter Admitting Diagnoses Diagnosis Subclinical hyperthyroidism Thyrotoxicosis without mention of goiter or other cause, without mention of thyrotoxic crisis or storm Hyperthyroidism Thyrotoxicosis without mention of goiter or other cause, without mention of thyrotoxic crisis or storm documented in this encounter Administered Medications Inactive Administered Medications - up to 3 most recent administrations Medication Order MAR Action Action Date Dose Rate Site acetaminophen (TYLENOL) tablet 1,000 mg 1,000 mg, oral, EVERY 6 HOURS PRN, Starting on Tue04/13/23 at 1630, Until Tue04/14/23 at 1356, Pain, Routine Given 04/14/2023 2:14 EDT 1,000 mg atenoloL (TENORMIN) tablet 25 mg 25 mg, oral, DAILY, First dose on Tue04/14/23 at 0900, Until Discontinued, Routine Given 04/14/2023 8:53 EDT 25 mg benzocaine-menthoL (CEPACOL) 15-3.6 mg per lozenge 1 Lozenge 1 Lozenge, buccal, EVERY 2 HOURS PRN, Starting on Tue04/13/23 at 1524, Until Sandra 04/14/23 at 1356, Throat Pain/NG Pain, Routine, Recovery & On Unit diphenhydrAMINE (BENADRYL) injection 12.5 mg 12.5 mg, intravenous, PRN, 1 dose, Starting on Tue04/13/23 at 1302, Until Tue04/13/23 at 1349, nausea, Routine, Recovery (only) Given 04/13/2023 13:49 EDT 12.5 mg fentaNYL citrate (PF) 50 mcg/mL injection 1 dose, Starting on Tue04/13/23 at 1323, Until Tue04/13/23 at 1332 fentaNYL citrate (PF) injection 25-50 mcg 25-50 mcg, intravenous, EVERY 5 MIN PRN, Starting on Tue04/13/23 at 1302, Until Tue04/13/23 at 1550, Pain, Routine, Recovery (only) Given 04/13/2023 14:33 EDT 25 mcg Given 04/13/2023 13:32 EDT 50 mcg ibuprofen (MOTRIN) tablet 600 mg 600 mg, oral, EVERY 6 HOURS PRN, Starting on Tue04/13/23 at 1303, Until Sandra 04/14/23 at 1356, Pain, Routine Given 04/14/2023 9:02 EDT 600 mg Given 04/13/2023 22:12 EDT 600 mg Given 04/13/2023 14:26 EDT 600 mg lactated ringers (LR) infusion at 25 mL/hr, intravenous, CONTINUOUS, Starting on Tue04/13/23 at 0900, Until Tue04/13/23 at 1557, Routine, Preprocedure Restarted 04/13/2023 10:31 EDT Continued by Anesthesia 04/13/2023 10:26 EDT 25 mL/hr New Bag 04/13/2023 9:26 EDT 25 mL/hr lactated ringers (LR) infusion 100 mL/hr, intravenous, CONTINUOUS, Starting on Tue04/13/23 at 1615, Until Sandra 04/14/23 at 1356, Routine New Bag 04/13/2023 16:49 EDT 100 mL/hr 100 mL/hr levothyroxine (SYNTHROID) tablet 125 mcg 125 mcg, oral, DAILY BEFORE BREAKFAST, First dose on Tue04/14/23 at 0700, Until Discontinued, Routine Given 04/14/2023 6:32 EDT 125 mcg lidocaine-epinephrine injection PRN, Starting on Tue04/13/23 at 1150, Until Tue04/13/23 at 1311, Routine, Intraprocedure Given 04/13/2023 11:50 EDT 9 mL microfibrillar collagen (HEMOSTAT) pad PRN, Starting on Tue04/13/23 at 1149, Until Tue04/13/23 at 1311, Intraprocedure Given 04/13/2023 11:49 EDT 1 Each ondansetron (PF) (ZOFRAN) injection 4 mg 4 mg, intravenous, EVERY 6 HOURS PRN, Starting on Tue04/13/23 at 1557, Until Tue04/14/23 at 1356, Nausea, Routine ondansetron (PF) (ZOFRAN) injection 4 mg 4 mg, intravenous, PRN, 1 dose, Starting on Tue04/13/23 at 1302, Until Tue04/13/23 at 1426, Nausea, Vomiting, Routine, Recovery (only) Given 04/13/2023 14:26 EDT 4 mg ondansetron (ZOFRAN-ODT) disintegrating tablet 4 mg 4 mg, oral, EVERY 6 HOURS PRN, Starting on Tue04/13/23 at 1557, Until Tue04/14/23 at 1356, Nausea, Routine oxyCODONE (ROXICODONE) immediate release tablet 5 mg 5 mg, oral, EVERY 4 HOURS PRN, Starting on Tue04/13/23 at 1557, Until Tue04/14/23 at 1356, Pain, Routine Given 04/14/2023 6:32 EDT 5 mg Given 04/14/2023 1:13 EDT 5 mg Given 04/13/2023 21:01 EDT 5 mg sodium chloride 0.9 % (flush) flush 5 mL 5 mL, intravenous, EVERY 8 HOURS, First dose on Tue04/13/23 at 1615, Until Discontinued, Routine Given 04/13/2023 16:54 EDT 5 mL sodium chloride 0.9 % irrigation PRN, Starting on Tue04/13/23 at 1151, Until Tue04/13/23 at 1311, Routine, Intraprocedure Given 04/13/2023 11:51 EDT 1,000 mL documented in this encounter Discontinued Medications Medication Sig Discontinue Reason Start Date End Da te ibuprofen (MOTRIN) 200 mg tablet Take 4 Tablets by mouth every 8 hours as needed for Pain. 04/14/2023 magnesium oxide (MAG-OX) 400 mg tablet Take 1 Tablet by mouth daily before breakfast. Currently taking 04/14/2023 documented as of this encounter Active and Recently Administered Medications Times are shown in EDT. Scheduled Medication Order 04/12/2023 04/13/2023 04/14/2023 atenoloL (TENORMIN) tablet 25 mg 25 mg, oral, DAILY, First dose on Tue04/14/23 at 0900, Until Discontinued, Routine 0853 (Given - Provid er: Maxime Alexander RN) levothyroxine (SYNTHROID) tablet 125 mcg 125 mcg, oral, DAILY BEFORE BREAKFAST, First dose on Tue04/14/23 at 0700, Until Discontinued, Routine 0632 (Given - Provid er: Zay Mota RN) sodium chloride 0.9 % (flush) flush 5 mL 5 mL, intravenous, EVERY 8 HOURS, First dose on Tue04/13/23 at 1615, Until Discontinued, Routine 1654 (Given - Provider: Anastacio Noble RN) 0043 (Not Given - Provider: Zay Mota RN - Reason: Loss of IV access)0941 (Not Given - Provider: Maxime Alexander RN - Reason: Discontinued) Continuous Medication Order 04/12/2023 04/13/2023 04/14/2023 lactated ringers (LR) infusion (CANCELED) at 25 mL/hr, intravenous, CONTINUOUS, Starting on Tue04/13/23 at 0900, Until Tue04/13/23 at 1557, Routine, Preprocedure 0926 (New Bag - Provider: Carlton Zabala RN)1026 (Continued by Anesthesia - Provider: Tiny Rodarte CRNA)1030 (Paused - Provider: Tiny Rodarte CRNA - Comment: Switch to gravity)1031 (Restarted - Provider: Tiny Rodarte CRNA)1310 (Anesthesia Volume Adjustment - Provider: Tiny Rodarte CRNA) lactated ringers (LR) infusion 100 mL/hr, intravenous, CONTINUOUS, Starting on Tue04/13/23 at 1615, Until Sandra 04/14/23 at 1356, Routine 1649 (New Bag - Provider: Anastacio Noble, JAZIEL)1800 (Infusion Stopped - Provider: Anastacio Noble RN) PRN Medication Order 04/12/2023 04/13/2023 04/14/2023 acetaminophen (TYLENOL) tablet 1,000 mg 1,000 mg, oral, EVERY 6 HOURS PRN, Starting on Tue04/13/23 at 1630, Until Sandra 04/14/23 at 1356, Pain, Routine 0214 (Given - Provid er: Zay Mota RN) albuterol inhaler 90-180 mcg 90-180 mcg (1-2 Puff), inhalation, EVERY 6 HOURS PRN, Starting on Tue04/13/23 at 1557, Until Sandra 04/14/23 at 1356, Wheezing, Routine benzocaine-menthoL (CEPACOL) 15-3.6 mg per lozenge 1 Lozenge 1 Lozenge, buccal, EVERY 2 HOURS PRN, Starting on Tue04/13/23 at 1524, Until Sandra 04/14/23 at 1356, Throat Pain/NG Pain, Routine, Recovery & On Unit calcitRIOL (ROCALTROL) capsule 0.25 mcg 0.25 mcg, oral, 2 TIMES DAILY PRN, Starting on Tue04/13/23 at 1557, Until Sandra 04/14/23 at 1356, Other, Numbness and Tingling, Routine calcium carbonate (TUMS) tablet 500 mg (200 mg elemental calcium) 2 Tablet 2 Tablet, oral, 4 TIMES DAILY PRN, Starting on Tue04/13/23 at 1303, Until Sandra 04/14/23 at 1356, Numbness and Tingling, Routine diphenhydrAMINE (BENADRYL) injection 12.5 mg (COMPLETED) 12.5 mg, intravenous, PRN, 1 dose, Starting on Tue04/13/23 at 1302, Until Tue04/13/23 at 1349, nausea, Routine, Recovery (only) 1349 (Given - Provider: Ariela Davila RN) fentaNYL citrate (PF) injection 25-50 mcg (CANCELED) 25-50 mcg, intravenous, EVERY 5 MIN PRN, Starting on Tue04/13/23 at 1302, Until Tue04/13/23 at 1550, Pain, Routine, Recovery (only) 1332 (Given - Provider: Robinson Marshall RN - Comment: pt is pointing @ her neck c/o that it hurts)1433 (Given - Provider: Macey Wilcox RN) ibuprofen (MOTRIN) tablet 600 mg 600 mg, oral, EVERY 6 HOURS PRN, Starting on Tue04/13/23 at 1303, Until Sandra 04/14/23 at 1356, Pain, Routine 1426 (Given - Provider: Macey Wilcox RN)2212 (Given - Provider: Zay Mota RN) 0902 (Given - Provider: Maxime Alexander RN) lidocaine-epinephrine injection (CANCELED) PRN, Starting on Tue04/13/23 at 1150, Until Tue04/13/23 at 1311, Routine, Intraprocedure 1150 (Given - Provider: Rajan Sanchez MD - Comment: neck) microfibrillar collagen (HEMOSTAT) pad (CANCELED) PRN, Starting on Tue04/13/23 at 1149, Until Tue04/13/23 at 1311, Intraprocedure 1149 (Given - Provider: Rajan Sanchez MD) ondansetron (PF) (ZOFRAN) injection 4 mg(Linked Group 1) 4 mg, intravenous, EVERY 6 HOURS PRN, Starting on Tue04/13/23 at 1557, Until Sandra 04/14/23 at 1356, Nausea, Routine ondansetron (PF) (ZOFRAN) injection 4 mg (COMPLETED) 4 mg, intravenous, PRN, 1 dose, Starting on Tue04/13/23 at 1302, Until Tue04/13/23 at 1426, Nausea, Vomiting, Routine, Recovery (only) 1426 (Given - Provider: Macey Wilcox RN) ondansetron (ZOFRAN-ODT) disintegrating tablet 4 mg(Linked Group 1) 4 mg, oral, EVERY 6 HOURS PRN, Starting on Tue04/13/23 at 1557, Until Sandra 04/14/23 at 1356, Nausea, Routine oxyCODONE (ROXICODONE) immediate release tablet 5 mg 5 mg, oral, EVERY 4 HOURS PRN, Starting on Tue04/13/23 at 1557, Until Sandra 04/14/23 at 1356, Pain, Routine 1654 (Given - Provider: Anastacio Noble RN)2101 (Given - Provider: Zay Mota RN) 0113 (Given - Provider: Zay Mota RN)0632 (Given - Provider: Zay Mota RN) phenoL (CHLORASEPTIC) 1.4 % solution/spray 1 [place] 1 [place], mouth / throat, PRN, Starting on Tue04/13/23 at 1303, Until Sandra 04/14/23 at 1356, Throat Pain/NG Pain, throat pain/NG pain sodium chloride 0.9 % irrigation (CANCELED) PRN, Starting on Tue04/13/23 at 1151, Until Tue04/13/23 at 1311, Routine, Intraprocedure 1151 (Given - Provider: Rajan Sanchez MD) Linked Groups Order Group 1: ondansetron (PF) (ZOFRAN) injection 4 mgJump to med 4 mg, intravenous, EVERY 6 HOURS PRN, Starting on Tue04/13/23 at 1557, Until Sandra 04/14/23 at 1356, Nausea, Routine Or ondansetron (ZOFRAN-ODT) disintegrating tablet 4 mgJump to med 4 mg, oral, EVERY 6 HOURS PRN, Starting on Tue04/13/23 at 1557, Until Sandra 04/14/23 at 1356, Nausea, Routine documented in this encounter Orders Medications Ordered That Yeison ht Not Have Been Administered Count Last Ordered Date First Ordered Date albuterol inhaler 90-180 mcg 1 04/13/2023 atropine 0.1 mg/mL syringe 0.5 mg 1 023 benzocaine-menthoL (CEPACOL) 15-3.6 mg per lozenge 1 Lozenge 1 04/13/2023 calcitRIOL (ROCALTROL) capsule 0.25 mcg 1 0 04/13/2023 calcium carbonate (TUMS) tab let 500 mg (200 mg elemental calcium) 2 Tablet 1 04/13/2023 HYDROmorphone (PF) (DILAUDID ) 0.5 mg/0.5 mL syringe 0.3-0.5 mg 1 04/13/2023 lactated ringers (LR) infusion 1 04/13/2023 lidocaine (PF) 10 mg/mL (1 % ) injection 2 mg 1 04/13/2023 naloxone (NARCAN) injection 0.2 mg 1 2022 ondansetron (PF) (ZOFRAN) injection 4 mg 1 04/13/2023 ondansetron (ZOFRAN-ODT) dis integrating tablet 4 mg 1 04/13/2023 oxyCODONE (ROXICODONE) immed iate release tablet 5-10 mg 1 04/13/2023 phenoL (CHLORASEPTIC) 1.4 % solution/spray 1 [place] 1 04/13/2023 Diet Count Last Ordered Date First Orde red Date DISCHARGE DIET 1 04/14/2023 Nursing Count Last Ordered Date First Orde red Date ACTIVITY INSTRUCTIONS 1 04/14/2023 Discharge Count Last Ordered Date First Orde red Date DISCHARGE PATIENT 1 04/14/2023 Legal Count Last Ordered Date First Orde red Date MISCELLANEOUS DISCHARGE INSTRUCTIONS 3 03/2023 documented in this encounter Care Teams Residential Door Installer Relationship Specialty Start Date End Date Campos Lopes MD [address] [place] [address] PCP - General 05/21/09 documented as of this encounter
--- OUTSIDE RECORDS SUMMARY | 2024-10-09 11:20 | XMS_ITS | Encounter Summary ---
Author Organization [facility] Address [address] [place] [address] Care Team Providers Care Waiter/Waitress Head Name Role Phone Campos Lopes MD Primary Care Provider [phone] Reason for Visit * (Routine/Next Available) - Receiving Office to Obtain Authorization Specialty Diagnoses / Procedures Referred By Lynnette osman Referred To Contact Procedures XR OUTSIDE IMAGES CHEST Imaging, External Referral ID Status Reason Start Date Expiration Date Visits Requested Visits Authorized [id number] Receiving Office to Obtain Authorization 01/13/2023 1 1 Encounter Details Date Type Department Care Team (Latest Contact Info) Description 10/23/2022 - 10/23/2022 23:59 EST Hospital Encounter [facility] Secondary Reads [place] Discharge Disposition: Home or Self Care Social History Tobacco Use Types Packs/Day [...] 07/11/2017 9:19 EDT documented in this encounter Medications at [...] inhaler BEVESPI AEROSPHERE 9-4.8 MCG/ACT AERO 09/09/2020 ipratropium (ATROVENT) 42 mcg (0.06 %) nasal spray USE 2 SPRAYS IN EACH NOSTRIL THREE TIMES DAILY FOR 5 DAYS 11/23/2021 ipratropium-albu teroL (DUONEB) 0.5 mg-3 mg(2.5 mg base)/3 mL nebulizer solution IPRATROPIUM-ALBUTE ROL 0.5-2.5 (3) MG/3ML SOLN 09/18/2020 atenolol (TENORMIN) 50 mg tabletIndication s:Hyperthyroidis m Take 25 mg by mouth daily before breakfast. 3 azelastine (ASTELIN) nasal spray USE 2 SPRAYS IN EACH NOSTRIL TWICE DAILY NEEDED 10/05/2021 3 cephalexin (KEFLEX) 500 mg capsule Take 1 capsule by mouth daily. 30 capsule 5 11/30/2021 3 cetirizine (ZYRTEC) 10 mg tablet Take 10 mg by mouth daily. 02/08/2022 3 doxycycline (VIBRA-TABS) 100 mg tablet every 12 hours. 3 estradiol (ESTRACE) 0.01 % (0.1 mg/g) vaginal cream Place vaginally. Per vagina 2 x weekly 1 Tube 11 06/29/2011 3 fexofenadine (PAUL ALLERGY) 180 mg tablet Paul Allergy 180 mg tablet 1 (one) Tablet Tablet: qd - daily 180 mg 3 fluconazole (DIFLUCAN) 150 mg tablet fluconazole 150 mg tablet as needed 3 fluticasone-salm eterol (ADVAIR HFA) 230-21 mcg/actuation inhaler Inhale 2 Puffs as directed 2 times daily . 3 gabapentin (NEURONTIN) 100 mg capsule 1 Capsule every 8 hours. 11/03/2020 4 ibuprofen (MOTRIN) 200 mg tablet Take 4 Tablets by mouth every 8 hours as needed for Pain. 3 levOFLOXacin (LEVAQUIN) 500 mg tablet Take 1 Tablet by mouth daily. 04/02/2022 4 lidocaine (XYLOCAINE) 2 % jelly Apply to urethra twice daily as needed 30 mL 3 01/07/2022 3 lidocaine (XYLOCAINE) 2 % jelly lidocaine HCl 2 % mucosal jelly 06/19/2021 3 magnesium oxide (MAG-OX) 400 mg tablet Take 1 Tablet by mouth daily before breakfast. Currently taking 3 methylPREDNISolo ne (MEDROL) 4 mg tablet MEDROL 4 MG TABS 07/08/2020 01/27/20 2 3 Multivitamins with Minerals tablet tablet Take 1 Tab by mouth daily. 3 omeprazole (PRILOSEC) 10 mg capsule Take 2 Capsules by mouth 2 times daily. 4 phenazopyridine (PYRIDIUM) 100 mg tablet Take 1 Tablet by mouth 3 times daily as needed for Pain. 90 Tablet 5 01/07/2022 3 phenazopyridine (PYRIDIUM) 100 mg tablet Take 1 Tablet by mouth 3 times daily as needed for Pain. 09/27/2021 4 Polymyxin B Sulfate 100 million unit powder Special intravesical treatment for cystitis and possible UTI 1/2 bottle/mixture in 250cc of Normal Saline and instill and lavage to clean out bladder, last syringe leave for extended dwell time. 5 Each 1 04/30/2022 3 QUICKVUE AT-HOME COVID-19 TEST kit Use as directed. 10/07/2021 01/27/20 2 3 solifenacin (VESICARE) 10 mg tablet Take 5 mg by mouth as needed. 3 SYMBICORT 160-4.5 mcg/actuation HFA aerosol inhaler inhaler INHALE 1 PUFF BY MOUTH TWICE DAILY 08/07/2021 3 terconazole (TERAZOL 7) 0.4 % vaginal cream terconazole 0.4 % vaginal cream 3 tolterodine (DETROL LA) 4 mg long acting capsule Take by mouth. 3 TOVIAZ 4 mg ER tablet 07/15/2021 3 documented as of this encounter Discharge Disposition Disposition Code Departure Means Destination Home or Self Care documented in this encounter Plan of Treatment Upcoming Encounters Date Type Department Care Team (Late st Contact Info) Description 10/17/2024 10:20 EST Telemedicine [facility] Endocrinology - [address] [id number] Ariela Woods MD [address] [place] [phone] 10/18/2024 9:15 EST Telemedicine [facility] RETAIL ADVERTISING SALES MANAGER Pelvic Medicine and Reconstructive Surgery - Medical Office [facility] [address] [place] [id number] Kelsy Fierro MD [address] [place] [address] Medical Office [facility] [address], [address] [phone] documented as of this encounter Procedures Procedure Name Priority Date/Time Associated Diagnosis Comments XR OUTSIDE IMAGES CHEST Routine 10/23/2022 9:16 EST documented in this encounter Results * XR OUTSIDE IMAGES CHEST (10/23/2022 9:16 EST) Narrative 01/13/2023 9:16 EDT This is a non-reportable exam. us External Imaging IMG OTHER IMAGING ORDERABLES Fi nal Result documented in this encounter Visit Diagnoses Not on filedocumented in this encounter Care Teams Waiter/Waitress Head Relationship Specialty Start Date End Date Campos Lopes MD [address] [place] [address] PCP - General 05/21/09 documented as of this encounter
--- OUTSIDE RECORDS SUMMARY | 2024-10-09 11:20 | XMS_ITS | Encounter Summary ---
Author Organization [facility] Address [address] [place] [address] Care Team Providers Care Urban Gardening Specialist Name Role Phone Campos Lopes MD Primary Care Provider [phone] Reason for Visit * Reason Comments Follow-up Encounter Details Date Type Department Care Team ([facility] Contact Info) Description 07/21/2023 8:30 EDT Telemedicine [facility] [address] [place] [address] Rajan Sanchez MD [address] [facility], [address] [place] [address] S/P thyroidectomy (Primary Dx) Social History Tobacco [...] documented in this encounter Progress Notes * Rajan Sanchez MD - 07/21/2023 0830 EDT Otolaryngology Tele-health visit This visit was completed by phone. Rajan Sanchez MD Date of conversation: 07/21/23 Time of start of conversation: 8:33 Patient phone number: Home Phone Work Phone I verified that I was speaking with the appropriate patient by confirming date of and address: [address], [address] I explained to the patient that if this discussion got disconnected we would return a call to the number listed above. If she did not receive a return call, she should call [phone]. The patient gave verbal consent to participate in a tele-health visit. She has not been seen in our office for the past 7 days. The patient is at home. I am conducting this visit from Our clinic at [facility] in [facility] while connected to the [facility]'s [facility] on a computer. Chief Complaint: Follow up Past Medical History: Diagnosis Date ??? A-fib ([facility]) ??? Abnormal chest CT ??? Acquired complex renal cyst 07/31/2018 ??? Activity, other involving cardiorespiratory exercise able to climb 1 FOS sometimes; gardening ??? Arrhythmia 04/06/2023 D/T thyroid and takes Atenolol ??? Asthma 04/06/2023 uses rescue inhaler once daily ??? Basal cell carcinoma of skin 10/22/2021 ??? Chronic cough ??? COPD (chronic obstructive pulmonary disease) ([facility]) well controlled with inhalers per pt 02/17/2021 ??? G[place]LEGO (dyspnea on exertion) ??? Duodenal ulcer ??? Excessive daytime sleepiness 10/22/2021 ??? Excessive daytime sleepiness ??? Gastric mass ??? GERD (gastroesophageal reflux disease) 04/06/2023 meds don't work well ??? History of general anesthesia no complications per pt 02/17/2021 ??? History of recurrent UTIs ??? Hx of osteoporosis ??? Hypercholesterolemia ??? Hypertension 04/06/2023 pt denies ??? Hyperthyroidism 02/17/2021--recent TSH w/ PCP; takes atenolol for treatment; no changes per pt 02/16/2021 ??? Left bundle branch block ??? Multiple thyroid nodules 11/11/20 - see 09/20/2019 Dr. melanie simon ??? Peripheral neuropathy ??? Positive PPD ??? Reactive depression ??? Thyroid disease suppressed TSH; nml T4 and T3 ??? Tremor per 03/17/2023 H&P very fine mild intention tremor ??? Urinary frequency 11/11/2020 pt discribes hyperactive bladder ??? UTI (urinary tract infection) chronic, last UTI last month, resolved with abx per pt 02/16/2021 Past Surgical History: Procedure Laterality Date ??? CARPAL TUNNEL RELEASE Right 201811/11/2020 - [place] ??? TONSILLECTOMY Current Outpatient Medications Medication ??? acetaminophen (TYLENOL) 500 mg tablet ??? albuterol 90 mcg/actuation inhaler ??? ascorbic acid, vitamin C, 500 mg capsule ??? atenoloL (TENORMIN) 25 mg tablet ??? calcitRIOL (ROCALTROL) 0.25 mcg capsule ??? calcium carbonate (TUMS) 200 mg calcium (500 mg) tablet,chewable ??? ergocalciferol, vitamin D2, 2,000 unit tablet ??? fluticasone propionate (FLONASE) 50 mcg/actuation nasal spray ??? gabapentin (NEURONTIN) 100 mg capsule ??? glycopyrrolate-formoteroL (BEVESPI AEROSPHERE) 9-4.8 mcg HFA aerosol inhaler ??? ibuprofen (MOTRIN) 600 mg tablet ??? ipratropium (ATROVENT) 42 mcg (0.06 %) nasal spray ??? ipratropium-albuteroL (DUONEB) 0.5 mg-3 mg(2.5 mg base)/3 mL nebulizer solution ??? levOFLOXacin (LEVAQUIN) 500 mg tablet ??? omeprazole (PRILOSEC) 10 mg capsule ??? oxyCODONE (ROXICODONE) 5 mg immediate release tablet ??? phenazopyridine (PYRIDIUM) 100 mg tablet Current Facility-Administered Medications Medication Route Frequency ??? heparin 20,000 Units, methylPREDNISolone sod suc(PF) (SOLU-MEDROL) 125 mg, sodium bicarbonate 8.4 % 5 mL, lidocaine 20 mg/mL (2 %) 10 mL, sterile water (PF) 26 mL bladder irrigation bladder instillation Once (Time Specified) Allergies Allergen Reactions ??? Dye Anaphylaxis IVP DYE ??? Nitrofurantoin Other (See Comments) Causes bladder pain ??? Trimethoprim Rash ??? Losartan Other reaction(s): itchiness and redness of eyes ??? Mirabegron Other (See Comments) ??? Amitriptyline SHELL COREMAKER changes at low dose ??? Ciprofloxacin Other [...] Other (See Comments) Other reaction(s): stomach upset HPI: Maureen Thomas is a 83 y.o. year old female who is evaluated over the phone today. She iss/p total thyroidectomy 04/13/2023 for hyperthyroidism. She initially had undetectable PTH but that has since improved with most recent PTH of 19 04/29/2023 . She did have a slightly low calcium 05/2023.She has continued to take one tab of calcitriol daily. She denies any numbness or tingling in her lips or finger tips. Her TSH since surgery has been suppressed so her synthroid has been decreased, most recently to 88mcg approximately 1 month ago. She had blood work done yesterday showing continuedsuppressed TSH, although T4 was normal and T3 was slightly low. She states that in the last 3 -4 weeks she has felt significantly fatigued and exhausted to the point she sometimes has a hard time staying awake. She wonders if it is related to her thyroid. She is taking atenolol and is not having any palpitations. Assessment: Encounter Diagnoses Name Primary? S/P thyroidectomy Yes Plan: Patient has a consult with endocrinology. I will reach out to them for guidance regarding herthyroid hormone medication given the discrepancy of her TSH and T3 and her significant fatigue. I will also recheck PTH, Calcium and vitamin D. Time of end of conversation: 8:55 Duration of visit: 22 minutes Rajan Sanchez MD Otolaryngology, Head and Neck Surgery 07/21/2023 documented in this encounter Plan of Treatment Upcoming Encounters Date Type Department Care Team (Late st Contact Info) Description 10/17/2024 10:20 EST Telemedicine [facility] Endocrinology - [address] [address] Ariela Woods MD [address] [place] [address] [address] [place] [address] 10/18/2024 9:15 EST Telemedicine [facility] AIRBRUSH ARTIST Pelvic Medicine and Reconstructive Surgery - Medical Office Building [facility] [address] [place] [address] Kelsy Fierro MD 2 [facility] Office [facility], [facility] [address] [place] [address] documented as of this encounter Visit Diagnoses Diagnosis S/P thyroidectomy- Primary Other postprocedural status documented in this encounter Care Teams Urban Gardening Specialist Relationship Specialty Start Date End Date Campos Lopes MD [address] [place] [address] PCP - General 05/21/09 documented as of this encounter
--- OUTSIDE RECORDS SUMMARY | 2024-10-09 11:20 | XMS_ITS | Encounter Summary ---
Author Organization [facility] Address [address] [place] [address] Care Team Providers Care Local Owner Operator Truck Driver Name Role Phone Campos Lopes MD Primary Care Provider [phone] Reason for Visit * (Routine/Next Available) - Receiving Office to Obtain Authorization Specialty Diagnoses / Procedures Referred By Lynnette osman Referred To Contact Procedures CT OUTSIDE IMAGES CHEST Imaging, External Referral ID Status Reason Start Date Expiration Date Visits Requested Visits Authorized [id number] Receiving Office to Obtain Authorization 01/13/2023 1 1 Encounter Details Date Type Department Care Team (Latest Contact Info) Description 11/16/2022 - 11/16/2022 23:59 EST Hospital Encounter [facility] Secondary Reads [place] Discharge Disposition: Home [...] Info) Description 10/17/2024 10:20 EST Telemedicine [facility] Endocrinology - [address] [address] Ariela Woods MD [address] [place] [phone] 10/18/2024 9:15 EST Telemedicine [facility] MEMORIAL ADVISER Pelvic Medicine and Reconstructive Surgery - Medical Office [facility] [address] [place] [address] Kelsy Fierro MD [address] [place] [address] Medical Office [facility], [address] [phone] documented as of this encounter Procedures Procedure Name Priority Date/Time Associated Diagnosis Comments CT OUTSIDE IMAGES CHEST Routine 11/16/2022 9:17 EST documented in this encounter Results * CT OUTSIDE IMAGES CHEST (11/16/2022 9:17 EST) Narrative 01/13/2023 9:17 EDT This is a non-reportable exam. us External Imaging IMG OTHER IMAGING ORDERABLES Fi nal Result documented in this encounter Visit Diagnoses Not on filedocumented in this encounter Care Teams Local Owner Operator Truck Driver Relationship Specialty Start Date End Date Campos Lopes MD [address] [place] [address] PCP - General 05/21/09 documented as of this encounter
--- OUTSIDE RECORDS SUMMARY | 2024-10-09 11:20 | XMS_ITS | Encounter Summary ---
Author Organization [facility] Address [address] [place] [address] Care Team Providers Care Cleaning Manager Name Role Phone Campos Lopes MD Primary Care Provider [phone] Reason for Visit * Auth/Cert (Routine) Specialty Diagnoses / Procedures Referred By Contac t Referred To Contact Diagnoses Hyperthyroidism Procedures HI THYROIDECTOMY THYROIDECTOMY, TOTAL Referral ID Status Reason Start Date Expiration Date Visits Re quested Visits Authorized [id number] 1 1 Encounter Details Date Type Department Care Team (Late st Contact Info) Description 04/13/2023 7:58 EDT - 04/14/2023 11:56 EDT Hospital Encounter [facility] Neurosurgery Unit [address] [place] [address] Rajan Sanchez MD [address] [facility], [address] [place] [address] Discharge Disposition: Home or Self Care Social [...] Sign Reading Time Taken Comments Blood Pressure 119/60 04/14/2023 0856 EDT Pulse 83 04/13/2023 1309 EDT Temperature 35.9 ??C (96.6 ??F) 04/14/2023 0614 EDT Respiratory Rate 16 04/14/2023 0614 EDT Oxygen Saturation 94% 04/14/2023 0614 EDT Inhaled Oxygen Concentration - - Weight [...] ??? Mirabegron Other (See Comments) ??? Amitriptyline TELLER VAULT changes at low dose ??? Ciprofloxacin Other [...] Procedure Component Value Units Date/Time SURGICAL PATHOLOGY [[id number]] Collected: 04/13/23 1153 Lab Status: In process Specimen: Tissue from Thyroid Updated: 04/13/23 1438 Relevant Studies at Discharge None. Last Lab Results at Discharge PTH <6 Discharge Follow Up Appointments Scheduled with [facility] in the next 3 months Upcoming Appointments Apr 29, 2023 15:30 Post Op with Rajan Sanchez MD [facility] ENT- [facility] (--) [address] [facility] [address] Carlton Quiles, MS4 Otolaryngology I was present [...] Means Destination Comment s Home or Self Halfway documented in this encounter Progress Notes * [...] LDA for any identified wounds ??? Add Plaza image for any suspected PI or non surgical wounds ??? Order wound consult if suspected PI identified ? ? If Vic is < or = to 16, initiate Pressure Injury Prevention Bundle ([id number]). 04/13/2023 18:40 * Aracelis Gilbert, - 04/13/2023 1824 EDT Respiratory Consult/Progress Note [...] Notes * Kayden Shaffer MD - 04/13/2023 0915 EDT The preoperative history and physical which [...] at 04/13/2023 15:36 EDT Source Note - PEST CONTROLLER ASSISTANT, SCAN 2 - 03/22/2023 10:50 EDT documented in this encounter OR Notes * OR Surgeon - Kayden Shaffer MD - 04/13/2023 1258 EDT OPERATIVE REPORT SERVICE DATE: 04/13/2023 SURGEON: Rajan Sanchez MD FANCY STITCHER: Barber Shaffer MD PREOPERATIVE DIAGNOSIS: Grave's disease. [...] assessment status Initial assessment complete? Yes Maureen Bernstein William 1940 Subclinical hyperthyroidism Chart review completed and [...] accessing necessary care and/or follow-up after discharge. wrapping machine operator/Cash Management Associate will continue to follow patient's progress and remain available if situation changes for coordination of care, psychosocial support and/or discharge planning. ROSINA THORNE 04/14/2023 9:19 Rosina Thorne LMSW Vascular Neurologist II Pager: [phone] * Plan of Care - Zay Mota [...] Contact Info) Description 10/17/2024 10:20 EST Telemedicine [facility] Endocrinology - [facility] [address] [place], [place] [phone] Ariela Woods MD [address] [facility] [address] [place] [phone] 10/18/2024 9:15 EST Telemedicine [facility] CELL GENETICIST Pelvic Medicine and Reconstructive Surgery - Medical Office Building [facility] [address] [place] [phone] Kelsy Fierro MD [address] [place] [address] Medical Office [facility], [address] [place] [phone] documented as of this encounter Procedures Procedure Name Priority Date/Time Associated Diagnosis Comments PTH INTACT Routine 04/13/2023 13:48 EDT SURGICAL PATHOLOGY Routine 04/13/2023 11 :53 EDT THYROIDECTOMY, TOTAL 04/13/2023 10:20 EDT Hyperthyroidism ECG REPORT - SCANNED 03/23/2023 13:47 EDT documented in this encounter Results * (ABNORMAL) PTH INTACT (04/13/2023 13:48 EDT) Intact PTH <6(L) 19 - 88 pg/mL 04/13/2023 15:58 EDT [facility] Blood VENOUS BLOOD / Unknown Venipuncture / Unknown 04/13/2023 13:48 EDT 04/13/2023 14:13 EDT us Kayden Shaffer MD CHEMISTRY & BLOOD GAS ORDERABLE S Final Result [facility] [address] [place] [address] * SURGICAL PATHOLOGY (04/13/2023 11:53 EDT) Note to Patient The following pathology results have been interpreted by your pathologist and may be available to you before your health provider has had the opportunity to review them. Please allow time for your provider to receive these results and explore management options, if applicable. 04/18/2023 11:17 EDT [facility] Final Diagnosis A. THYROID, TOTAL THYROIDECTOMY: - Multinodular hyperplasia with focal dystrophic calcification. - Two benign lymph nodes. 04/18/2023 11:17 [facility] Attestation There was significant resident/fellow involvement in the diagnostic evaluation of this case. By the signature below, the attending physician certifies that they have personally conducted a gross and/or microscopic examination of the described specimens and rendered or confirmed the above diagnosis. 04/18/2023 11:17 [facility] at 1117 Clinical History Hyperthyroidism 04/18/2023 11:17 [facility] Gross Description A. Received in [...] cystic and filled with a gelatinous substance. Office Chair Assembler sections are submitted as follows: INK BAUMAN [...] COATES MD PhD 04/14/2023 15:12 04/18/2023 11:17 T [facility] Resident/Juan Carlos w: Rosina Coates MD PhD 04/18/2023 11:17 T [facility] Performing Lab [facility] 11:17 [facility] Scanned Images 04/18/2023 11:17 [facility] Tissue SPECIMEN FROM THYROID / Unknown 04/13/2023 11:53 EDT 04/13/2023 14:38 EDT us Rajan Sanchez MD PATHOLOGY ORDERABLES Final Result [facility] [address] [place] [address] * ECG REPORT - SCANNED (03/23/2023 13:47 EDT) 03/23/2023 13:4 7 EDT us Scan 2 Clinical Biochemical Geneticist PROCEDURE/MINOR SURGICAL OR DERABLES Final Result documented [...] PRN, Starting on Tue04/13/23 at 1524, Until Tue04/14/23 at 1356, Throat Pain/NG Pain, Routine, Recovery [...] oral, DAILY BEFORE BREAKFAST, First dose on Sandra 04/14/23 at 0700, Until Discontinued, Routine Given 04/14/2023 6:32 EDT 125 mcg ondansetron (PF) (ZOFRAN) injection 4 mg 4 [...] Routine Given 04/13/2023 16:54 EDT 5 mL documented in this encounter Discontinued Medications [...] Routine 1649 (New Bag - Provider: Anastacio Noble RN)1800 (Infusion Stopped - Provider: Anastacio Noble RN) PRN Medication Order 04/12/2023 04/13/2023 04/14/2023 acetaminophen (TYLENOL) tablet 1,000 mg 1,000 mg, oral, EVERY 6 HOURS PRN, Starting on Tue04/13/23 at 1630, Until Tue04/14/23 at 1356, Pain, Routine 0214 (Given - Provid er: Zay Mota, JAZIEL) albuterol inhaler 90-180 mcg 90-180 mcg (1-2 Puff), inhalation, EVERY 6 HOURS PRN, Starting on Tue04/13/23 at 1557, Until Tue04/14/23 at 1356, Wheezing, Routine benzocaine-menthoL (CEPACOL) 15-3.6 mg per lozenge 1 Lozenge 1 Lozenge, buccal, EVERY 2 HOURS PRN, Starting on Tue04/13/23 at 1524, Until Tue04/14/23 at 1356, Throat Pain/NG Pain, Routine, Recovery & On Unit calcitRIOL (ROCALTROL) capsule 0.25 mcg 0.25 mcg, oral, 2 TIMES DAILY PRN, Starting on Tue04/13/23 at 1557, Until Tue04/14/23 at 1356, Other, Numbness and Tingling, Routine calcium carbonate (TUMS) tablet 500 mg (200 mg elemental calcium) 2 Tablet 2 Tablet, oral, 4 TIMES DAILY PRN, Starting on Tue04/13/23 at 1303, Until Tue04/14/23 at 1356, Numbness and Tingling, Routine diphenhydrAMINE [...] PRN, Starting on Tue04/13/23 at 1303, Until Tue04/14/23 at 1356, Pain, Routine 1426 (Given - [...] at 1311, Intraprocedure 1149 (Given - Provider: aRjan Sanchez MD) ondansetron (PF) (ZOFRAN) injection 4 [...] Anastacio Noble RN)2101 (Given - Provider: Zay Mota, JAZIEL) 0113 (Given - Provider: Zay Mota, JAZIEL)0632 (Given - Provider: Zay Mota RN) phenoL (CHLORASEPTIC) 1.4 % solution/spray 1 Laotto 1 Laotto, mouth / throat, PRN, Starting on Tue04/13/23 [...] % ) injection 2 mg 1 04/13/2023 lidocaine-epinephrine injection 1 3 microfibrillar collagen (HEMOSTAT) pad naloxone (NARCAN) injection 0.2 mg 2022 ondansetron (PF) (ZOFRAN) injection 4 mg 04/13/2023 ondansetron (ZOFRAN-ODT) dis integrating tablet 4 mg 04/13/2023 oxyCODONE (ROXICODONE) immed iate release tablet 5-10 mg 04/13/2023 phenoL (CHLORASEPTIC) 1.4 % solution/spray 1 Laotto 04/13/2023 sodium chloride 0.9 % irrigation 1 04/13/20 Diet Count Last Ordered Date First Orde red Date DISCHARGE DIET 1 04/14/2023 Nursing Count Last Ordered Date First Orde red Date ACTIVITY INSTRUCTIONS 1 04/14/2023 Discharge Count Last Ordered Date First Orde red Date DISCHARGE PATIENT 1 04/14/2023 Legal Count Last Ordered Date First Orde red Date MISCELLANEOUS DISCHARGE INSTRUCTIONS 3 03/2023 documented in this encounter Care Teams Cleaning Manager Relationship Specialty Start Date End Date Campos Lopse MD [address] [place] [address] PCP - General 05/21/09 documented as of this encounter
--- OUTSIDE RECORDS SUMMARY | 2024-10-09 11:20 | XMS_ITS | Encounter Summary ---
Author Organization [facility] Address [address] [place] [address] Care Team Providers Care Bundle Collector Name Role Phone Campos Lopes MD Primary Care Provider [phone] Reason for Visit * Auth/Cert (Routine) Specialty Diagnoses / Procedures Referred By Contac t Referred To Contact Diagnoses Hyperthyroidism Procedures LA THYROIDECTOMY THYROIDECTOMY, TOTAL Referral ID Status Reason Start Date Expiration Date Visits Re quested Visits Authorized [id number] 1 1 Encounter Details Date Type Department Care Team (Late st Contact Info) Description 04/13/2023 10:26 EDT Anesthesia Event [facility] OR [address] [place] [address] Mikayla Rene MD [address] [phone] Tiny Fox CRNA [address] [phone] Anesthesia Record Procedure Summary Procedure Name Responsible Anesthesiologist Anesthesia Start Time Anesthesia Stop Time THYROIDECTOMY, TOTAL (Neck) Mikayla Rene MD 04/13/23 1026 04/13/23 1312 Events Date Time Event Comment 04/13/2023 1026 An Start The patient was re-evaluated immediately before moderate or deep sedation use, before anesthesia induction, or before the anesthesia procedure. 1026 An Start Data 1037 An Induction The patient was reevaluated immediately before moderate or deep sedation use and before anesthesia induction. 1042 An Intubation 1042 Anesthesia Ready 1302 An Extubation 1305 an stop data 1312 Handoff to RN I completed my handoff to the receiving nurse during which we: 1. Identified the patient 2. Identified the responsible provider 3. Reviewed the pertinent medical history 4. Discussed the surgical course 5. Reviewed intra-op anesthesia management and issues during anesthesia 6. Set expectations for post-procedure period 7. Allowed opportunity for questions and acknowledgement of understanding. 1312 An Stop Meds Name Total dexaMETHasone (DECADRON) injection 4 mg/ mL (for IV doses up to 10mg) 8 mg ePHEDrine pre-filled syringe 20 mg fentanyl citrate (PF) injection 100 mcg HYDROmorphone vial 2 mg/mL 1 mg ondansetron (PF) (ZOFRAN) injection 4 mg lidocaine 2% (PF) injection glass vial 6 0 mg phenylephrine pre-filled syringe 300 mcg propOFol (DIPRIVAN) injection 140 mg succinylcholine 20 mg/mL vial 100 mg acetaminophen 10 mg/ml 100 mL infusion 1 ,000 mg lactated ringers (LR) infusion 700 mL * Agents Name Insp Sevoflurane Exp Sevoflurane O2 N2O Air * Blood No blood administrations on file. Lines, Drains, and Airways Type Details Placement Removal Wound 04/13/23; 1143; Incision; Neck; THYROIDECTOMY, TOTAL; N 04/13/23 1143 by Liliya Gimenez, RN Peripheral IV 04/13/23; 0926; 20; 1.25; B Restrepo Introcan; Anterior, Distal, Right; Forearm; Inserted by RN (MEKA, RN); 1; None; Chlorhexidine; 04/13/23; 1759; Infiltrated; No complications, Catheter intact, Dressing applied 04/13/23 0926 by Carlton Zabala, JAZIEL 04/13/23 1759 by Anastacio Noble, JAZIEL Non-Surgical Airway 04/13/23; 1049 (aurelio boateng via procedure documentation); 04/13/23; 1302 04/13/23 1049 by Tiny Fox CRNA 04/13/23 1302 by Tiny Fox CRNA documented in this encounter Social History Tobacco [...] Date of Assessment Author No 04/13/2023 16:00 Cahri Parker RN * Are you blind or [...] Chari Parker RN documented in this encounter OR Notes * Anesthesia Postprocedure Evaluation - Tiny Rodarte CRNA - 04/13/2023 1312 EDT Patient: Maureen Thomas Vital signs were reviewed with the recovery nurse. Complete vitals history is available in the [facility]. Vitals Value Taken Time BP 160/63 04/13/23 1312 Temp 36.4 04/13/23 1312 Resp 10 04/13/23 1312 Pulse From Oximetry 82 04/13/23 1312 SpO2 100 04/13/23 1312 Heart Rate 82 04/13/23 1312 Last Pain Score - Numeric Pain Level (Scale 1-10): 0 Type of Anesthesia - general Anesthesia Post Evaluation Post-procedure vitals reviewed and are stable. Level of consciousness: awake Temperature status: normothermia Respiratory status: airway patent and face mask Cardiovascular status: acceptable Hydration status: adequate Nausea/Vomiting: none Pain management: adequate Post-Op Assessment: patient tolerated procedure well with no complications Patient participation: able to participate Disposition: inpatient Anesthesia Complications: No apparent anesthesia complications * Anesthesia Procedure Notes - Tiny Rodarte CRNA - 04/13/2023 1049 EDT Associated Order(s): Airway Airway Date/Time: 04/13/2023 10:42 Urgency: elective Airway not difficult General Information and Staff Patient location during procedure: OR Performed: resident/RIB SAWYER/AA Performed by: Tiny Rodarte CRNA Authorized by: Jet Weems MD Indications and Patient Condition Indications for airway management: anesthesia Sedation level: GA Preoxygenated: yes Patient position: sniffing Ventilation assessment: 1 - Easy Final Airway Details Final airway type: endotracheal airway Successful airway: ETT Cuffed: yes Successful intubation technique: direct laryngoscopy Facilitating devices/methods: intubating stylet Endotracheal tube insertion site: oral Blade: Ibrahima Blade size: #3 ETT size (mm): 7.0 Cormack-Lehane Classification: grade I - full view of glottis Placement verified by: chest auscultation and capnometry Cuff volume (mL): 8 Measured from: lips ETT to lips (cm): 20 Number of attempts at approach: 1 Ventilation between attempts: none Number of other approaches attempted: 0 * Anesthesia Preprocedure Evaluation - Jet Weems MD - 04/13/2023 0910 EDT Anesthesia Preprocedure Evaluation 83 yo female with Hx multiple thyroid nodules for total thyroidectomy. Patient Medical History, including Anesthesia History reviewed. Chart and Nursing Notes reviewed, including NPO status and Medication History. Additional ROS/History Findings: Allergies Allergen Reactions ??? Dye Anaphylaxis IVP DYE ??? Nitrofurantoin Other (See Comments) Causes bladder pain ??? Trimethoprim Rash ??? Losartan Other reaction(s): itchiness and redness of eyes ??? Mirabegron Other (See Comments) ??? Amitriptyline MAILING MACHINE HELPER changes at low dose ??? Ciprofloxacin Other [...] Other (See Comments) Other reaction(s): stomach upset Review of Systems Respiratory: Tobacco Hx Cardiovascular: Hx HTN Hx AF Hx LBBB Gastrointestinal: Hx GERD Hx Gastric Mass Past Medical History: Diagnosis Date ??? A-fib (HCC-CMS) (HCC) (HCC-CMS) ??? Abnormal chest CT ??? Acquired complex renal cyst 07/31/2018 ??? Activity, other involving cardiorespiratory exercise able to climb 1 FOS sometimes; gardening ??? Arrhythmia 04/06/2023 D/T thyroid and takes Atenolol ??? Asthma 04/06/2023 uses rescue inhaler once daily ??? Basal cell carcinoma of skin 10/22/2021 ??? Chronic cough ??? COPD (chronic obstructive pulmonary disease) (HCC-CMS) well controlled with inhalers per pt 02/17/2021 [...] with abx per pt 02/16/2021 Relevant Problems PULMONARY (+) Asthma (+) Chronic obstructive pulmonary disease (HCC-CMS) (+) Dyspnea on exertion (+) Mild persistent asthma CARDIOVASCULAR (+) Dyspnea on exertion (+) Hypertensive disorder (+) Left bundle branch block (+) Paroxysmal atrial fibrillation (HCC-CMS) (HCC) GASTROINTESTINAL (+) Duodenal ulcer (+) Gastroesophageal reflux disease /Renal (+) Acquired complex renal cyst ENDO/GI (+) Hyperthyroidism (+) Subclinical hyperthyroidism Physical Exam Airway Mallampati: II TM distance: >3 FB Neck ROM: full Cardiovascular Rhythm: irregular Dental Pulmonary - normal exam Breath sounds clear to auscultation Abdominal Comments: Deferred Anesthesia Plan ASA 3 Anesthesia Type - general Block for post-op pain? No Anesthesia plan and risks discussed. Informed consent obtained from patient. Use of blood products discussed with patient who. Specific risks discussed were nausea, stroke, vomiting and myocardial infarction. Code status discussed? No The preoperative history and physical which was performed within 30 days of this procedure, has been reviewed and the clinically appropriate elements of the physical examination have been repeated. There are no changes to the documented history and physical or, if so, such changes are documented inthis note PAT Note Notes from 03/14/23 through 04/13/23 No notes of this type exist for this encounter. documented in this encounter Plan of Treatment Upcoming Encounters Date Type Department Care Team (Late st Contact Info) Description 10/17/2024 10:20 EST Telemedicine [facility] Endocrinology - [facility] [address] [place], [place] [phone] Ariela Woods MD 62 [facility] [address] [place] [phone] 10/18/2024 9:15 EST Telemedicine [facility] SERVICE CAPTAIN Pelvic Medicine and Reconstructive Surgery - Medical Office Building [facility] [address] [place] [phone] Kelsy Fierro MD [address] [place] [address], [address] [phone] documented as of this encounter Procedures Procedure Name Priority Date/Time Associated Diagnosis Comments ANESTHESIA INTUBATION Routine 04/13/2023 10:42 EDT documented in this encounter Results * LA AN ELECTIVE ENDOTRACHEAL AIRWAY (04/13/2023 10:42 EDT) Narrative Tiny Rodarte CRNA - 04/13/2023 10:42 EDT Tiny Rodarte CRNA ? 04/13/2023 10:49 Airway Date/Time: 04/13/2023 10:42 Urgency: elective Airway not difficult General Information and Staff Patient location during procedure: OR Performed: resident/RIB SAWYER/AA Performed by: Tiny Rodarte CRNA Authorized by: Jet Weems MD ?? Indications and Patient Condition Indications for airway management: anesthesia Sedation level: GA Preoxygenated: yes Patient position: sniffing Ventilation assessment: 1 - Easy Final Airway Details Final airway type: endotracheal airway Successful airway: ETT Cuffed: yes Successful intubation technique: direct laryngoscopy Facilitating devices/methods: intubating stylet Endotracheal tube insertion site: oral Blade: Ibrahima Blade size: #3 ETT size (mm): 7.0 Cormack-Lehane Classification: grade I - full view of glottis Placement verified by: chest auscultation and capnometry Cuff volume (mL): 8 Measured from: lips ETT to lips (cm): 20 Number of attempts at approach: 1 Ventilation between attempts: none Number of other approaches attempted: 0 Jet Weems MD ANESTHESIA ORDERA BLES Final Result documented in this encounter Visit Diagnoses Not on filedocumented in this encounter Administered Medications Inactive Administered Medications - up to 3 most recent administrations Medication Order MAR Action Action Date Dose Rate Site acetaminophen (OFIRMEV) IV solution intravenous, PRN, Starting on Tue04/13/23 at 1031, Until Tue04/13/23 at 1312, Routine, Anesthesia Intraprocedure Given 04/13/2023 10:31 EDT 1,000 mg dexAMETHasone (DECADRON) injection intravenous, PRN, Starting on Tue04/13/23 at 1047, Until Tue04/13/23 at 1312, Routine, Anesthesia Intraprocedure Given 04/13/2023 10:47 EDT 8 mg ePHEDrine injection 25 mg/5 mL syringe intravenous, PRN, Starting on Tue04/13/23 at 1047, Until Tue04/13/23 at 1312, Routine, Anesthesia Intraprocedure Given 04/13/2023 11:10 EDT 5 mg Given 04/13/2023 11:05 EDT 5 mg Given 04/13/2023 11:02 EDT 5 mg fentaNYL citrate (PF) injection intravenous, PRN, Starting on Tue04/13/23 at 1037, Until Tue04/13/23 at 1312, Routine, Anesthesia Intraprocedure Given 04/13/2023 10:37 EDT 100 mcg HYDROmorphone (DILAUDUD) 2 mg/mL injection intravenous, PRN, Starting on Tue04/13/23 at 1130, Until Tue04/13/23 at 1312, Routine, Anesthesia Intraprocedure Given 04/13/2023 11:44 EDT 0.4 mg Given 04/13/2023 11:30 EDT 0.6 mg lactated ringers (LR) infusion at 25 mL/hr, intravenous, CONTINUOUS, Starting on Tue04/13/23 at 0900, Until Tue04/13/23 at 1557, Routine, Preprocedure Restarted 04/13/2023 10:31 EDT Continued by Anesthesia 04/13/2023 10:26 EDT 25 mL/hr New Bag 04/13/2023 9:26 EDT 25 mL/hr lidocaine (PF) 20 mg/mL (2 %) injection intravenous, PRN, Starting on Tue04/13/23 at 1037, Until Tue04/13/23 at 1312, Routine, Anesthesia Intraprocedure Given 04/13/2023 10:37 EDT 60 mg ondansetron (PF) (ZOFRAN) injection intravenous, PRN, Starting on Tue04/13/23 at 1252, Until Tue04/13/23 at 1312, Routine, Anesthesia Intraprocedure Given 04/13/2023 12:52 EDT 4 mg phenylephrine HCl in 0.9% NaCl injection intravenous, PRN, Starting on Tue04/13/23 at 1111, Until Tue04/13/23 at 1312, Routine, Anesthesia Intraprocedure Given 04/13/2023 11:56 EDT 100 mcg Given 04/13/2023 11:22 EDT 100 mcg Given 04/13/2023 11:11 EDT 100 mcg propOFol (DIPRIVAN) injection intravenous, PRN, Starting on Tue04/13/23 at 1037, Until Tue04/13/23 at 1312, Routine, Anesthesia Intraprocedure Given 04/13/2023 11:30 EDT 50 mg Given 04/13/2023 10:37 EDT 90 mg succinylcholine (ANECTINE) injection intravenous, PRN, Starting on Tue04/13/23 at 1039, Until Tue04/13/23 at 1312, Routine, Anesthesia Intraprocedure Given 04/13/2023 10:39 EDT 100 mg documented in this encounter Care Teams Bundle Collector Relationship Specialty Start Date End Date Campos Lopes MD [address] [place] [address] PCP - General 05/21/09 documented as of this encounter
--- OUTSIDE RECORDS SUMMARY | 2024-10-09 11:20 | XMS_ITS | Encounter Summary ---
Author Organization [facility] Address [address] [place] [address] Care Team Providers Care Infection Preventionist Name Role Phone Campos Lopes MD Primary Care Provider [phone] Encounter Details Date Type Department Care Team ([facility] Contact Info) Description 04/29/2023 16:30 EDT Phlebotomy Only [facility] ED Center 2 Phlebotomy [address] [place], [place] [address] Public Health Program Manager, Acc Phlebotomy S/P thyroidectomy Social History Tobacco Use Types Packs/Day Years [...] (Late st Contact Info) Description 10/17/2024 10:20 [facility] Telemedicine [facility] Endocrinology - [address] [address] Ariela Woods MD [address] [place] [phone] 10/18/2024 9:15 EST Telemedicine [facility] PERINATAL BREASTFEEDING ASSISTANT Pelvic Medicine and Reconstructive Surgery - Medical Office Building [address] [phone] Kelsy Fierro MD [address] [place] [address] Medical Office [facility], [address] [phone] documented as of this encounter Procedures Procedure Name Priority Date/Time Associated Diagnosis Comments PTH INTACT Routine 04/29/2023 16:56 EDT S/P thyroidectomy CALCIUM Routine 04/29/2023 16:56 EDT S/P thyroidectomy documented in this encounter Results * PTH INTACT (04/29/2023 16:56 EDT) Intact PTH 19 19 - 88 pg/mL 04/29/2023 20:53 EDT [facility] Blood VENOUS BLOOD / Unknown Venipuncture / Unknown 04/29/2023 16:56 EDT 04/29/2023 18:53 EDT Rajan Sanchez MD CHEMISTRY & BLOOD GAS DAVIDE RABDAVIDA Final Result [facility] [address] [place] [address] * CALCIUM (04/29/2023 16:56 EDT) Calcium 8.9 8.5 - 10.5 mg/dL 04/29/2023 20:00 EDT [facility] Blood VENOUS BLOOD / Unknown Venipuncture / Unknown 04/29/2023 16:56 EDT 04/29/2023 18:53 EDT Rajan Sanchez MD CHEMISTRY & BLOOD GAS LINDSEY ARREGUIN Final Result Performing Organization Address [facility]/ZIP Co de Phone Number [facility] [address] [place] [address] documented in this encounter Visit Diagnoses Diagnosis S/P thyroidectomy Other postprocedural status documented in this encounter Care Teams Infection Preventionist Relationship Specialty Start Date End Date Campos Lopes MD [address] [place] [address] PCP - General 05/21/09 documented as of this encounter
--- OUTSIDE RECORDS SUMMARY | 2024-10-09 11:20 | XMS_ITS | Encounter Summary ---
Author Organization [facility] Address [address] [place] [address] Care Team Providers Care Breaker Engineer Name Role Phone Campos Lopes MD Primary Care Provider [phone] Reason for Visit * Reason Comments New Patient Visit thyroid * Referral (Routine) - Receiving Office to Obtain Authorization Specialty Diagnoses / Procedures Referred By Lynnette osman Referred To Contact Otolaryngology Diagnoses Hypothyroidism Campos Lopes MD [address] [place] [address] Phone: tel: fax: [address] [address] Phone: tel: fax: Referral ID Status Reason Start Date Expiration Date Visits Requested Visits Authorized [id number] Receiving Office to Obtain Authorization 1 1 Encounter Details Date Type Department Care Team (Late st Contact Info) Description 01/26/2023 13:00 EDT Office Visit [address] [phone] Rajan Sanchez MD [address] [place] [address], [address] [place] [phone] Hyperthyroidism (Primary Dx) Social History Tobacco Use Types Packs/Day Years Used Date Smoking Tobacco: Former Cigarettes 1 32 Smokeless Tobacco: Never Tobacco Cessation:Counseling Given: Not [...] 07/11/2017 9:19 EDT documented in this encounter Progress Notes * Rajan Sanchez MD - 01/26/2023 1300 EDT Images from the original note were not included. Referring provider Campos Lopes MD Chief Complaint Hyperthyroidism [facility] Patient is seen in consultation at the request of Campos Tolentino MD for evaluation of the above chief complaint. She has had a long history of subclinical hyperthyroidism, with suppressed TSH but normal T3 and T4. She was previously seen by Endocrinology here and TSI was negative. It looks like an uptake scan was ordered but does not appear as though it was every performed. More recently her circulating thyroid hormone has been elevated. Per review of her PCP notes, she was prescribed methimazole but did not tolerate this well. She has noticed symptoms of increased tremors and anxiety. She had a recent ultrasound, the report copied below. She also reports that she has had GI symptoms including a significant amount of reflux in her throat. She also has abdominal pain with every meal. She had a cholecystectomy but this has only made herabdominal symptoms worse. She has been referred to GI. Review of Systems 10 point review of systems negative except as described in HPI Physical Exam General: Wt Readings from Last 3 Encounters: 02/24/21 79.4 kg (175 lb) 02/17/21 79.4 kg (175 lb) 11/11/20 81.6 kg (180 lb) No acute distress Psych: Awake and alert. Responds appropriately to questions Eyes: Extraocular movements intact Face: Facial movement symmetric with normal strength bilaterally. Neck/lymphatic: Trachea midline. No palpable thyroid nodules. No palpable adenopathy bilaterally Respiratory: No stertor or stridor Neuro: Normal gait, no tremor or slurred speech Skin: no rashes, lesions, or ulcerations Assessment: Hyperthyroidism Plan/Discussion: We discussed the various treatment options for her hyperthyroidism and she would like to pursue surgery. Risks of general anesthesia, scar, bleeding, injury to recurrent laryngeal nerves/parathyroid glands was discussed. We also discussed that some of her symptoms may not improve if not related to hyperthyroidism and she would like to proceed. Rajan Sanchez MD 01/26/2023 15:59 documented in this encounter Plan of Treatment Upcoming Encounters Date Type Department Care Team (Late st Contact Info) Description 10/17/2024 10:20 EST Telemedicine [facility] Endocrinology - [facility] [address] [place] [address] Ariela Woods MD 62 [facility] [address] [place] [phone] 10/18/2024 9:15 EST Telemedicine [facility] SENIOR SSIS DEVELOPER Pelvic Medicine and Reconstructive Surgery - Medical Office [facility] [address] [place], [place] [phone] Kelsy Fierro MD [address] [place] [address], Medical Office Building, [address] [place] [phone] documented as of this encounter Visit Diagnoses Diagnosis Hyperthyroidism- Primary Thyrotoxicosis without mention of goiter or other cause, without mention of thyrotoxic crisis or storm documented in this encounter Discontinued Medications Medication Sig Discontinue Reason Start Date End Da te atenolol (TENORMIN) 50 mg tabletIndications:Hyp erthyroidism Take 25 mg by mouth daily before breakfast. 01/26/2023 azelastine (ASTELIN) nasal spray USE 2 SPRAYS IN EACH NOSTRIL TWICE DAILY NEEDED 10/05/2021 01/26/2023 cephalexin (KEFLEX) 500 mg capsule Take 1 capsule by mouth daily. 11/30/2021 01/26/2023 cetirizine (ZYRTEC) 10 mg tablet Take 10 mg by mouth daily. 02/08/2022 01/26/2023 doxycycline (VIBRA-TABS) 100 mg tablet every 12 hours. 01/26/2023 estradiol (ESTRACE) 0.01 % (0.1 mg/g) vaginal cream Place vaginally. Per vagina 2 x weekly 06/29/2011 01/26/2023 fexofenadine (PAUL ALLERGY) 180 mg tablet Paul Allergy 180 mg tablet 1 (one) Tablet Tablet: qd - daily 180 mg 01/26/2023 fluconazole (DIFLUCAN) 150 mg tablet fluconazole 150 mg tablet as needed 01/26/2023 fluticasone-salmetero l (ADVAIR HFA) 230-21 mcg/actuation inhaler Inhale 2 Puffs as directed 2 times daily . 01/26/2023 lidocaine (XYLOCAINE) 2 % jelly lidocaine HCl 2 % mucosal jelly 06/19/2021 01/26/2023 lidocaine (XYLOCAINE) 2 % jelly Apply to urethra twice daily as needed 01/07/2022 01/26/2023 methylPREDNISolone (MEDROL) 4 mg tablet MEDROL 4 MG TABS 07/08/2020 01/26/2023 Multivitamins with Minerals tablet tablet Take 1 Tab by mouth daily. 01/26/2023 phenazopyridine (PYRIDIUM) 100 mg tablet Take 1 Tablet by mouth 3 times daily as needed for Pain. 01/07/2022 01/26/2023 Polymyxin B Sulfate 100 million unit powder Special intravesical treatment for cystitis and possible UTI 1/2 bottle/mixture in 250cc of Normal Saline and instill and lavage to clean out bladder, last syringe leave for extended dwell time. 04/30/2022 01/26/2023 QUICKVUE AT-HOME COVID-19 TEST kit Use as directed. 10/07/2021 01/26/2023 solifenacin (VESICARE) 10 mg tablet Take 5 mg by mouth as needed. 01/26/2023 SYMBICORT 160-4.5 mcg/actuation HFA aerosol inhaler inhaler INHALE 1 PUFF BY MOUTH TWICE DAILY 08/07/2021 01/26/2023 terconazole (TERAZOL 7) 0.4 % vaginal cream terconazole 0.4 % vaginal cream 01/26/2023 TOVIAZ 4 mg ER tablet 07/15/2021 01/26/2023 tolterodine (DETROL LA) 4 mg long acting capsule Take by mouth. 01/26/2023 documented as of this encounter Orders Case Request Count Last Ordered Date First Orde red Date CASE REQUEST OPERATING ROOM 1 01/26/2023 documented in this encounter Care Teams Breaker Engineer Relationship Specialty Start Date End Date Campos Lopes MD [address] [place] [address] PCP - General 05/21/09 documented as of this encounter
--- OUTSIDE RECORDS SUMMARY | 2024-10-09 11:20 | XMS_ITS | Encounter Summary ---
Author Organization [facility] Address [address] [place] [address] Care Team Providers Care Reagent Tender Helper Name Role Phone Campos Lopes MD Primary Care Provider [phone] Reason for Referral * Laboratory Services (Routine/Next Available) - New Request Specialty Diagnoses / Procedures Referred By Lynnette t Referred To Contact Diagnoses S/P thyroidectomy Procedures VITAMIN D (25,OH) Rajan Sanchez MD Phone: tel: fax: Referral ID Status Reason Start Date Expiration Date V isits Requested Visits Authorized [id number] New Request 07/21/2023 1 1 * Laboratory Services (Routine/Next Available) - New Request Specialty Diagnoses / Procedures Referred By Lynnette osman Referred To Contact Diagnoses S/P thyroidectomy Procedures CALCIUM Rajan Sanchez MD Phone: tel: fax: Referral ID Status Reason Start Date Expiration Date V isits Requested Visits Authorized [id number] New Request 07/21/2023 1 1 * Laboratory Services (Routine/Next Available) - New Request Specialty Diagnoses / Procedures Referred By Contbeatriz t Referred To Contact Diagnoses S/P thyroidectomy Procedures PTH INTACT Rajan Sanchez MD Phone: tel: fax: Referral ID Status Reason Start Date Expiration Date V isits Requested Visits Authorized [id number] New Request 07/21/2023 1 1 Encounter Details Date Type Department Care Team (Late st Contact Info) Description 07/21/2023 Orders Only [address] [address] Danika Mendiola RN S/P thyroidectomy (Primary Dx) [...] (Late st Contact Info) Description 10/17/2024 10:20 [facility] Telemedicine [facility] Endocrinology - [address] [phone] Ariela Woods MD 62 [facility] [address] [place] [phone] 10/18/2024 9:15 [facility] Telemedicine [facility] AMUSEMENT PARK ENTERTAINER Pelvic Medicine and Reconstructive Surgery - Medical Office [facility] [address] [place] [phone] Kelsy Fierro MD [address] [place] [address] [facility], [address] [phone] documented as of this encounter Results * VITAMIN D (25,OH) (09/20/2023 11:44 EST) 25OH Vitamin D Tot 35 30 - 100 ng/mL 09/21/2023 9:56 [facility] Comment: Vitamin D 25,OH Interpretive Ranges: Deficiency: ??<10.0 ng/mL Insufficiency: ??10.0 - 30.0 ng/mL Sufficiency: ??30.0 - 100.0 ng/mL Toxicity: ??>100.0 ng/mL Blood VENOUS BLOOD / Unknown Venipuncture / Unknown 09/20/2023 11:44 EST 09/20/2023 11:44 EST us Rajan Sanchez MD CHEMISTRY & BLOOD GAS ORDE RODRÍGUEZ Final Result Performing Organization Address City/[facility]/ZIP Co de Phone Number [facility] [address] [place] [address] * CALCIUM (09/20/2023 11:44 EST) Calcium 9.3 8.5 - 10.5 mg/dL 09/20/2023 14:06 EST [facility] Blood VENOUS BLOOD / Unknown Venipuncture / Unknown 09/20/2023 11:44 EST 09/20/2023 11:44 EST us Rajan Sanchez MD CHEMISTRY & BLOOD GAS ORDE RABDAVIDA Final Result Performing Organization Address [facility] Co de Phone Number [facility] [address] [place] [address] * PTH INTACT (09/20/2023 11:44 EST) Intact PTH 35 19 - 88 pg/mL 09/20/2023 16:08 EST [facility] Blood VENOUS BLOOD / Unknown Venipuncture / Unknown 09/20/2023 11:44 EST 09/20/2023 11:44 EST us Rajan Sanchez MD CHEMISTRY & BLOOD GAS LINDSEY ARREGUIN Final Result Performing Organization Address City/[facility] Co de Phone Number [facility] [address] [place] [address] documented in this encounter Visit Diagnoses Diagnosis S/P thyroidectomy- Primary Other postprocedural status documented in this encounter Care Teams Reagent Tender Helper Relationship Specialty Start Date End Date Campos Lopes MD [address] [place] [address] PCP - General 05/21/09 documented as of this encounter
--- OUTSIDE RECORDS SUMMARY | 2024-10-09 11:20 | XMS_ITS | Encounter Summary ---
Author Organization [facility] Address [address] [place] [address] Care Team Providers Care Chief Vendor Quality Name Role Phone Campos Lopes MD Primary Care Provider [phone] Reason for Visit * Reason Onset Date Comments Appointment Related 06/09/2023 Labs Only 06/09/2023 Encounter Details Date Type Department Care Team ([facility] Contact Info) Description 06/09/[address] [address] Rajan Sanchez MD [address] [place] [address], [address] [place] [address] Appointment Related; Labs Only Social History Tobacco Use Types [...] encounter Miscellaneous Notes * Telephone Encounter - Danika Mendiola RN - 06/10/2023 1518 EDT Requested most recent labs from PCP. * Telephone Encounter - Ariela Alonzo - 06/09/2023 1255 EDT Patient unable to come in for visit 06/14, rescheduled to 07/20 (next available), wondering if she should get some additional labs on her thyroid. States her PCP just did Calcium labs and they were low. Please advise. documented in this encounter Plan of Treatment Upcoming Encounters Date Type Department Care Team (Late st Contact Info) Description 10/17/2024 10:20 EST Telemedicine [facility] Endocrinology - [place] [address] [place] [address] Ariela Woods MD 62 [facility] [address] [place] [address] 10/18/2024 9:15 EST Telemedicine [facility] TUBE BENDER Pelvic Medicine and Reconstructive Surgery - Medical Office Building [facility] [address] [place], [place] [phone] Kelsy Fierro MD 2 [facility] Medical Office [facility], [address] [place] [phone] documented as of this encounter Visit Diagnoses Not on filedocumented in this encounter Care Teams Chief Vendor Quality Relationship Specialty Start Date End Date Campos Lopes MD [address] [place] [address] PCP - General 05/21/09 documented as of this encounter
--- OUTSIDE RECORDS SUMMARY | 2024-10-09 11:20 | XMS_ITS | Encounter Summary ---
Author Organization [facility] Address [address] [place] [address] Care Team Providers Care Heavy Equipment Sales Manager Name Role Phone Campos Lopes MD Primary Care Provider [phone] Encounter Details Date Type Department Care Team (Late Contact Info) Description 06/28/2023 Lab Requisition [facility] Pathology & Laboratory Medicine - [facility] [address] [place] [address] Outr Resulting Lab, Provider Social History Tobacco [...] Description 10/17/2024 10:20 EST Telemedicine [facility] Endocrinology - [address] [address] Ariela Woods MD [address] [place] [phone] 10/18/2024 9:15 EST Telemedicine [facility] BOTTOM CRANE OPERATOR Pelvic Medicine and Reconstructive Surgery - Medical Office [facility] [address] [place] [phone] Kelsy Fierro MD [address] [place] [address] Office [facility], [address] [place] [phone] documented as of this encounter Procedures Procedure Name Priority Date/Time Associated Diagnosis Comments T3, TOTAL Routine 06/28/2023 10:55 EDT documented in this encounter Results * T3, TOTAL (06/28/2023 10:55 EDT) T3, Total 99 97 - 169 ng/dL 06/28/2023 22:[address] [facility] Blood VENOUS BLOOD / Unknown 06/28/2023 10:55 EDT 06/28/2023 21:41 EDT us Provider Outr Resulting Lab CHEMISTRY & BLOOD GA S ORDERABLES Final Result [facility] [address] [place] [address] documented in this encounter Visit Diagnoses Not on filedocumented in this encounter Care Teams Heavy Equipment Sales Manager Relationship Specialty Start Date End Date Campos Lopes MD [address] [place], [place] [phone] PCP - General 05/21/09 documented as of this encounter
--- OUTSIDE RECORDS SUMMARY | 2024-10-09 11:20 | XMS_ITS | Encounter Summary ---
Author Organization [facility] Address [address] [place] [address] Care Team Providers Care Heavy Mobile Equipment Repairer Name Role Phone Campos Lopes MD Primary Care Provider [phone] Reason for Visit * Reason Comments Post-OP Follow Up Encounter Details Date Type Department Care Team (Late Contact Info) Description 04/29/2023 15:30 EDT Post-op Visit [facility] [address] [place], [place] [phone] Rajan Sanchez MD [address] [place] [address], [address] [place] [address] S/P thyroidectomy (Primary Dx) Social [...] Progress Notes * Rajan Sanchez MD - 04/29/2023 1530 EDT CC: post operative visit HPI: Patient is an 83 year old female s/p total thyroidectomy for hyperthyroidism. She had an uncomplicated course and was discharged on POD 1. Her immediate post operative PTH was <6. She has been taking tums and calcitriol and has not had any numbness/tingling of lips/fingertips. She has felt increased anxiety and wonders if that is related to her thyroid surgery/medication. Exam: Awake, alert, NAD Neck incision c/d/i, neck soft and flat Breathing comfortably, voice strong Pathology: Final Diagnosis A. THYROID, TOTAL THYROIDECTOMY: - Multinodular hyperplasia with focal dystrophic calcification. - Two benign lymph nodes. Impression: S/p total thyroidectomy for hyperthyroidism Plan: Will check PTH and calcium today. Discussed that we will check TSH in 6-8 weeks and if euthroid and she is still experiencing heightened anxiety, would not be related to thyroid. In the meantime she will continue her current dose of synthroid and her atenolol documented in this encounter Plan of Treatment Upcoming Encounters Date Type Department Care Team (Late st Contact Info) Description 10/17/2024 10:20 EST Telemedicine [facility] Endocrinology - [facility] [address] [place], [place] [phone] Ariela Woods MD 62 [facility] [address] [place] [phone] 10/18/2024 9:15 EST Telemedicine [facility] DIVISION DIRECTOR Pelvic Medicine and Reconstructive Surgery - Medical Office Building [facility] [address] [place] [phone] Kelsy Fierro MD 2 [facility] Medical Office [facility], [address] [phone] documented as of this encounter Results * PTH INTACT (04/29/2023 16:56 EDT) Intact PTH 19 19 - 88 pg/mL 04/29/2023 20:53 EDT [facility] Blood VENOUS BLOOD / Unknown Venipuncture / Unknown 04/29/2023 16:56 EDT 04/29/2023 18:53 EDT us Rajan Sanchez MD CHEMISTRY & BLOOD GAS LINDSEY ARREGUIN Final Result [facility] [address] [place] [address] * CALCIUM (04/29/2023 16:56 EDT) Calcium 8.9 8.5 - 10.5 mg/dL 04/29/2023 20:00 EDT [facility] Blood VENOUS BLOOD / Unknown Venipuncture / Unknown 04/29/2023 16:56 EDT 04/29/2023 18:53 EDT Rajan Sanchez MD CHEMISTRY & BLOOD GAS LINDSEY ARREGUIN Final Result [facility] [address] [place] [address] documented in this encounter Visit Diagnoses Diagnosis S/P thyroidectomy- Primary Other postprocedural status documented in this encounter Care Teams Heavy Mobile Equipment Repairer Relationship Specialty Start Date End Date Campos Lopes MD [address] [place] [address] PCP - General 05/21/09 documented as of this encounter
--- OUTSIDE RECORDS SUMMARY | 2024-10-09 11:20 | XMS_ITS | Encounter Summary ---
Author Organization [facility] Address [address] [place] [address] Care Team Providers Care Shoe Caser Name Role Phone Campos Lopes MD Primary Care Provider [phone] Reason for Visit * Reason Onset Date Comments Orders (Non Pre-visit) 07/21/2023 Encounter Details Date Type Department Care Team ([facility] Contact Info) Description 07/21/2023 Telephone [facility] [address] [place], [place] [phone] Rajan Sanchez MD [address] [place] [address], [address] [place] [address] Orders (Non Pre-visit) Social History Tobacco Use [...] encounter Miscellaneous Notes * Telephone Encounter - Carmelina Tucker - 07/21/2023 1401 EDT Orders faxed to number provided by [facility]. * Telephone Encounter - Carmelina Tucker - 07/21/2023 1350 EDT Patient called to f/u on lab orders discussed during telemed this morning. Patient was at [facility] lab waiting for orders so she could complete labs today. Checked in with provider's nurse and was informed of lab order status. Explained to patient we are currently working on getting orders to lab, but it is likely they will not be received by [facility] until later today. Patient was upset at having to come back to lab at a later date, but was grateful for the information. documented in this encounter Plan of Treatment Upcoming Encounters Date Type Department Care Team (Late st Contact Info) Description 10/17/2024 10:20 EST Telemedicine [facility] Endocrinology - [facility] [address] [place], [place] [phone] Ariela Woods MD 62 [facility] [address] [place] [address] 10/18/2024 9:15 EST Telemedicine [facility] VACUUM EXTRACTOR OPERATOR Pelvic Medicine and Reconstructive Surgery - Medical Office Building [facility] [address] [place] [address] Kelsy Fierro MD [address] [place] [address] Medical Office [facility], [address] [place] [phone] documented as of this encounter Visit Diagnoses Not on filedocumented in this encounter Care Teams Shoe Caser Relationship Specialty Start Date End Date Campos Lopes MD [address] [place], [place] [phone] PCP - General 05/21/09 documented as of this encounter
--- OUTSIDE RECORDS SUMMARY | 2024-10-09 11:20 | XMS_ITS | Encounter Summary ---
Author Organization [facility] Address [address] [place] [address] Care Team Providers Care Pole Framer Machine Name Role Phone Campos Lopes MD Primary Care Provider [phone] Reason for Visit * Reason Onset Date Comments Pharyngitis 04/16/2023 Encounter Details Date Type Department Care Team (Late Contact Info) Description 04/16/2023 Telephone [facility] ENT [address] [place], [place] [phone] Deepika Jeffries MD [address] [place] [address] Pharyngitis Social History Tobacco Use Types Packs/Day Years [...] encounter Miscellaneous Notes * Telephone Encounter - Deepika Jeffries MD - 04/16/2023 1237 EDT ENT Patient Message Maureen is postop day 3 status post total thyroidectomy for Graves' disease. She was discharged without issue on postop day 1. She is calling this morning as she has had throat irritation and has been coughing up thick phlegm since discharge. She states that she does have thick phlegm in her throatat baseline, but this is much different. She denies any recent fevers. She has a history of asthma,but states that her breathing has been fine. She has not been having a cough per se. She states that her incision is clean dry and intact. She has noticed some improvement in the swelling of her incision. The ecchymosis has been resolving, as well. Patient is concerned that she may have a bacterial infection inside of her throat. I discussed how it is unlikely that she has such an infection in the early postoperative period. I discussed that itis extremely common to have throat irritation after being intubated for procedure. This can take upto 1 to 2 weeks to resolve. I discussed how the thick phlegm is likely due to chronic phlegm staying stagnant from when the tube was in place. I encouraged the patient to continue with conservative management including drinking a lot of watertoday. If she finds that her symptoms or not improving, she is welcome to call back to discuss thisfurther. Deepika Jeffries MD Otolaryngology PGY-3 04/16/23 12:48 documented in this encounter Plan of Treatment Upcoming Encounters Date Type Department Care Team (Late st Contact Info) Description 10/17/2024 10:20 EST Telemedicine [facility] Endocrinology - [facility] [address] [place] [address] Ariela Woods MD 62 [facility] [address] [place] [phone] 10/18/2024 9:15 EST Telemedicine [facility] BIODIESEL PRODUCT DEVELOPMENT MANAGER Pelvic Medicine and Reconstructive Surgery - Medical Office Building [facility] [address] [place] [phone] Kelsy Fierro MD 2 [facility] Medical Office [facility], [address] [phone] documented as of this encounter Visit Diagnoses Not on filedocumented in this encounter Care Teams Pole Framer Machine Relationship Specialty Start Date End Date Campos Lopes MD [address] [place] [address] PCP - General 05/21/09 documented as of this encounter
--- OUTSIDE RECORDS SUMMARY | 2024-10-09 11:20 | XMS_ITS | Encounter Summary ---
Author Organization [facility] Address [address] [place] [address] Care Team Providers Care Wine And Spirits Clerk Name Role Phone Campos Lopes MD Primary Care Provider [phone] Reason for Visit * Reason Onset Date Comments Medication Reaction 06/23/2023 Encounter Details Date Type Department Care Team ([facility] Contact Info) Description 06/23/2023 Telephone [facility] [address] [place], [place] [phone] Rajan Sanchez MD 111 [facility], [address] [place] [address] Medication Reaction Social History Tobacco Use Types Packs/Day Years [...] * Telephone Encounter - Sabina Cesar - 06/23/2023 0936 EDT Patient called in on our emergency post op line upset with her interaction with RN previously this am. She did not care for the way that RN responded to her concerns and felt dismissed. 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 This appeals writer validated her concerns over the conversation and indicated that another nurse could call to discuss her concerns. The patient explained that she has no interest in speaking to our nurses and that she does think they are trained well enouch and requested to speak to someone above them asking this appeals writer to assist. This writerexplained I am not clinical but that I am happy to listen to what is going on and can consult our clinical team and have a different RN call back. Explained that Dr. Sanchez is in the OR and clinic all day. Patient expressed that she knows Dr. Sanchez works with residents and that she would like to speak to one of them. This appeals writer explained how our residents were not only in their education this morning, but would be assisting in the OR and clinic. This appeals writer offered to try to consult with one of them but that they may not be the ones that could call her back. Re-offered to take down her symptom concerns if she was unwilling to speak to an RN. Patient indicated that she is concerned regarding the side effects of levothyroxine. She is itching and noted she has been on it for 3 weeks and that she has had no other medication changes. The patient is worried about anaphylaxis and needingto go to the ER.This appeals writer validated that we would not want that to happen and asked if she would like to provide any further details. Patient declined and this appeals writer indicated that I would pass along her concerns further and reiterated that a resident may not be able to call her back themselves any time soon. Patient expressed that this was not an emergency and that she would also be writing directly to Dr. Sanchez. This appeals writer acknowledged the plan and let the patient know we would be working to ensure her clinical concern was addressed. Placed call in follow up after discussing with Dr. Bowman. This appeals writer outlined the points that shared in regards to the patient's concerns. 1. Primary Care is the best option to evaluate what is causing the itching 2. If the itching is very concerning then it would be appropriate to go to the ER, especially if there is concern for anaphylaxes. 3. Itching is not a common side effect of the levothyroxine 4. Because she had her thyroid removed, she would not recommend stopping the medication. 5.Endocrinology would actually be the appropriate clinic to manage her medication and whether or not she should adjust/stop/etc. 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 She would like to speak more about the actual medication. Reiterated to the patient that Dr. Bowman provided the information that itching was not a common side effect so the best course of action would be to be seen by PCP to determine if there is a different cause. Ultimately patient expressed she was not angry with this appeals writer and was thankful for the call. She expressed her frustration about not feeling that her question was answered. This appeals writer advised that this issue was also forwarded to Dr. Sanchez and that I could follow up with her if I received further informatin. documented in this encounter Plan of Treatment Upcoming Encounters Date Type Department Care Team (Late st Contact Info) Description 10/17/2024 10:20 EST Telemedicine [facility] Endocrinology - [facility] [address] [place], [place] [phone] Ariela Woods MD [address] [facility] [address] [place] [phone] 10/18/2024 9:15 EST Telemedicine [facility] PRINT PRODUCTION ASSOCIATE Pelvic Medicine and Reconstructive Surgery - Medical Office Building [facility] [address] [place] [phone] Kesly Fierro MD [address] [place] [address] Medical Office [facility], [address] [place] [phone] documented as of this encounter Visit Diagnoses Not on filedocumented in this encounter Care Teams Wine And Spirits Clerk Relationship Specialty Start Date End Date Campos Lopes MD [address] [place] [address] PCP - General 05/21/09 documented as of this encounter
--- OUTSIDE RECORDS SUMMARY | 2024-10-09 11:20 | XMS_ITS | Encounter Summary ---
Author Organization [facility] Address [address] [place] [address] Care Team Providers Care Relay Tester Name Role Phone Campos Lopes MD Primary Care Provider [phone] Encounter Details Date Type Department Care Team (Late st Contact Info) Description 01/12/2023 Lab Requisition [facility] Pathology & Laboratory Medicine - [facility] [address] [place] [address] Outr Resulting Lab, Provider Social History Tobacco [...] 07/11/2017 9:19 EDT documented in this encounter Plan of Treatment Upcoming Encounters Date Type Department Care Team (Late st Contact Info) Description 10/17/2024 10:20 EST Telemedicine [facility] Endocrinology - [facility] [address] [place] [address] Ariela Woods MD [address] [facility] [address] [place] [address] 10/18/2024 9:15 EST Telemedicine [facility] SALES PROFESSIONAL Pelvic Medicine and Reconstructive Surgery - Medical Office Building [facility] [address] [place] [address] Kelsy Fierro MD [address] [place] [address] Medical Office [facility], [address] [place] [phone] documented as of this encounter Procedures Procedure Name Priority Date/Time Associated Diagnosis Comments T3, TOTAL Routine 01/11/2023 12:20 EDT documented in this encounter Results * (ABNORMAL) T3, TOTAL (01/11/2023 12:20 EDT) T3, Total 230(H) 97 - 169 ng/dL 01/12/2023 20:27 EDT [facility] Blood VENOUS BLOOD / Unknown 01/11/2023 12:20 EDT 01/12/2023 19:37 EDT us Provider Outr Resulting Lab CHEMISTRY & BLOOD GA S ORDERABLES Final Result [facility] [address] [place] [address] documented in this encounter Visit Diagnoses Not on filedocumented in this encounter Care Teams Relay Tester Relationship Specialty Start Date End Date Campos Lopes MD [address] [place], [place] [phone] PCP - General 05/21/09 documented as of this encounter
--- OUTSIDE RECORDS SUMMARY | 2024-10-09 11:20 | XMS_ITS | Encounter Summary ---
Author Organization [facility] Address [address] [place] [address] Care Team Providers Care Manager Strategy Name Role Phone Campos Lopes MD Primary Care Provider [phone] Encounter Details Date Type Department Care Team (Late Contact Info) Description 04/27/2023 Lab Requisition [facility] Pathology & Laboratory Medicine - [facility] [address] [place] [address] Outr Resulting Lab, Provider Social History Tobacco [...] 10:20 EST Telemedicine [facility] Endocrinology - [address] [address] Ariela Woods MD [address] [place] [phone] 10/18/2024 9:15 EST Telemedicine [facility] ENVIRONMENTAL SERVICES ASSISTANT Pelvic Medicine and Reconstructive Surgery - Medical Office [address] [address] Kelsy Fierro MD [address] [place] [address] Office [facility], [address] [phone] documented as of this encounter Procedures Procedure Name Priority Date/Time Associated Diagnosis Comments LYME AB Routine 04/27/2023 17:31 EDT documented in this encounter Results * LYME AB (04/27/2023 17:31 EDT) Lyme Ab Negative Negative 04/28/2023 12:20 EDT [facility] Blood VENOUS BLOOD / Unknown 04/27/2023 17:31 EDT 04/27/2023 21:44 EDT us Provider Outr Resulting Lab IMMUNOLOGY AND SEROL OGY ORDERABLES Final Result [facility] [address] [place] [address] documented in this encounter Visit Diagnoses Not on filedocumented in this encounter Care Teams Manager Strategy Relationship Specialty Start Date End Date Campos Lopes MD [address] [place], [place] [phone] PCP - General 05/21/09 documented as of this encounter
--- OUTSIDE RECORDS SUMMARY | 2024-10-09 11:20 | XMS_ITS | Encounter Summary ---
Author Organization [facility] Address [address] [place] [address] Care Team Providers Care Global Product Manager Name Role Phone Campos Lopes MD Primary Care Provider [phone] Encounter Details Date Type Department Care Team ([facility] Contact Info) Description 05/17/2023 11:15 EDT Phlebotomy Only [facility] ED Center 2 Phlebotomy [address] [place], [place] [phone] Nurse Emergency Room, Acc Phlebotomy S/P thyroidectomy Social History Tobacco [...] [facility] Endocrinology - [address] [place] [address] [address] Ariela Woods MD [address] [phone] 10/18/2024 9:15 EST Telemedicine [facility] AUCTION[employer]ER [employer]BAC[employer] Pelvic Medicine and Reconstructive Surgery - Medical Office Building [address] [address] Kelsy Fierro MD [address] [place] [address] Medical Office [facility], [address] [phone] documented as of this encounter Procedures Procedure Name Priority Date/Time Associated Diagnosis Comments T3, TOTAL Add-On 05/17/2023 11:48 EDT S/P thyroidectomy TSH Routine 05/17/2023 11:48 EDT S/P thyroidectomy T4 FREE Add-On 05/17/2023 11:48 EDT S/P thyroidectomy documented in this encounter Results * T3, TOTAL (05/17/2023 11:48 EDT) [facility] T3, Total 125 97 - 169 ng/dL 05/20/2023 20:25 EDT [facility] Blood VENOUS BLOOD / Unknown Venipuncture / Unknown 05/17/2023 11:48 EDT 05/17/2023 12:16 EDT Rajan Sanchez MD CHEMISTRY & BLOOD GAS ORDE RABDAVIDA Final Result Performing Organization Address City/[facility]/ZIP Co de Phone Number [facility] [address] [place] [address] * T4 FREE (05/17/2023 11:48 EDT) [facility] T4, Free 1.7 0.8 - 2.2 ng/dL 05/20/2023 20:11 EDT [facility] Blood VENOUS BLOOD / Unknown Venipuncture / Unknown 05/17/2023 11:48 EDT 05/17/2023 12:16 EDT Rajan Sanchez MD CHEMISTRY & BLOOD GAS ORDE RABLES Final Result [facility] [address] [place] [address] * (ABNORMAL) TSH (05/17/2023 11:48 EDT) [facility] TSH <0.02(L) 0.47 - 4.68 mIU/L 05/17/2023 13:19 EDT [facility] Blood VENOUS BLOOD / Unknown Venipuncture / Unknown 05/17/2023 11:48 EDT 05/17/2023 12:16 EDT Narrative [facility] - 05/17/2023 13:19 EDT The results of this assay can be falsely lowered due to the consumption of Biotin. us Rajan Sanchez MD CHEMISTRY & BLOOD GAS LINDSEY ARREGUIN Final Result [facility] [address] [place] [address] documented in this encounter Visit Diagnoses Diagnosis S/P thyroidectomy Other postprocedural status documented in this encounter Care Teams Global Product Manager Relationship Specialty Start Date End Date Campos Lopes MD [address] [place] [address] PCP - General 05/21/09 documented as of this encounter
--- OUTSIDE RECORDS SUMMARY | 2024-10-09 11:20 | XMS_ITS | Encounter Summary ---
Author Organization [facility] Address [address] [place] [address] Care Team Providers Care Lens And Frames Prescription Clerk Name Role Phone Campos Lopes MD Primary Care Provider [phone] Encounter Details Date Type Department Care Team (Late Contact Info) Description 03/19/2023 Lab Requisition [facility] Pathology & Laboratory Medicine - [facility] [address] [place] [address] Outr Resulting Lab, Provider Social History Tobacco [...] Contact Info) Description 10/17/2024 10:20 EST Telemedicine [facility] Endocrinology - [facility] [address] [place] [address] Ariela Woods MD 62 [facility] [address] [place] [address] 10/18/2024 9:15 EST Telemedicine [facility] CLASSIFIED ADVERTISING SUPERVISOR Pelvic Medicine and Reconstructive Surgery - Medical Office Building [facility] [address] [place] [address] Kelsy Fierro MD [address] [place] [address] Medical Office [facility], [address] [place] [phone] documented as of this encounter Procedures Procedure Name Priority Date/Time Associated Diagnosis Comments T3, TOTAL Routine 03/17/2023 11:00 EDT documented in this encounter Results * (ABNORMAL) T3, TOTAL (03/17/2023 11:00 EDT) T3, Total 201(H) 97 - 169 ng/dL 03/19/2023 22:21 EDT [facility] Blood VENOUS BLOOD / Unknown 03/17/2023 11:00 EDT 03/19/2023 21:28 EDT us Provider Outr Resulting Lab CHEMISTRY & BLOOD GA S ORDERABLES Final Result [facility] [address] [place] [address] documented in this encounter Visit Diagnoses Not on filedocumented in this encounter Care Teams Lens And Frames Prescription Clerk Relationship Specialty Start Date End Date Campos Lopes MD [address] [place], [place] [phone] PCP - General 05/21/09 documented as of this encounter
--- OUTSIDE RECORDS SUMMARY | 2024-10-09 11:20 | XMS_ITS | Encounter Summary ---
Author Organization [facility] Address [address] [place] [address] Care Team Providers Care Look Out Tower Fire Watcher Name Role Phone Campos Lopes MD Primary Care Provider [phone] Reason for Visit * Reason Onset Date Comments Results 05/18/2023 Encounter Details Date Type Department Care Team (Late Contact Info) Description 05/18/2023 Telephone [facility] [address] [place], [place] [phone] Danika Mendiola RN Results Social History Tobacco Use Types [...] tablet Take 1 Tablet by mouth daily for 30 days. 30 Tablet 3 05/18/2023 06/17/2023 documented in this encounter Miscellaneous Notes * Telephone Encounter - Danika Mendiola RN - 05/18/2023 1128 EDT ----- Message from Rajan Sanchez MD sent at 05/18/2023 10:17 EDT ----- Hi Danika, We should decrease her dose of synthroid to 100mcg and see if that helps her symptoms. Recheck TSH in 6 week. Thank you! Rajan ----- Message ----- From: Lab, Background Sent: 05/17/2023 13:19 EDT To: Rajan Sanchez MD documented in this encounter Plan of Treatment Upcoming Encounters Date Type Department Care Team (Late st Contact Info) Description 10/17/2024 10:20 EST Telemedicine [facility] Endocrinology - [address] [phone] Ariela Woods MD [address] [facility] [address] [place] [phone] 10/18/2024 9:15 EST Telemedicine [facility] GEAR INSPECTOR Pelvic Medicine and Reconstructive Surgery - Medical Office Building [facility] [address] [place] [address] Kelsy Fierro MD 2 [facility] Medical Office [facility], [address] [place] [phone] documented as of this encounter Visit Diagnoses Not on filedocumented in this encounter Discontinued Medications Medication Sig Discontinue Reason Start Date End Da te levothyroxine (SYNTHROID) 125 mcg tablet Take 1 Tablet by mouth daily before breakfast. Dose adjustment 04/15/2023 05/18/2023 documented as of this encounter Care Teams Look Out Tower Fire Watcher Relationship Specialty Start Date End Date Campos Lopes MD [address] [place], [place] [phone] PCP - General 05/21/09 documented as of this encounter
--- OUTSIDE RECORDS SUMMARY | 2024-10-09 11:20 | XMS_ITS | Encounter Summary ---
Author Organization [facility] Address [address] [place] [address] Care Team Providers Care Childcare Attendant Name Role Phone Campos Lopes MD Primary Care Provider [phone] Reason for Visit * Reason Onset Date Comments Post-OP Follow Up 05/05/2023 Encounter Details Date Type Department Care Team ([facility] Contact Info) Description 05/05/2023 Telephone [facility] [address] [place], [place] [phone] Rajan Sanchez MD [address] [place] [address], [address] [place] [address] Post-OP Follow Up Social History Tobacco Use Types Packs/Day Years [...] Telephone Encounter - Danika Mendiola RN - 05/16/2023 1420 EDT Follow up call, Dr. Sanchez said we could have TSH drawn if still symptomatic, but is is too soon.Detailed message left for the patient to call the ENT office. * Telephone Encounter - Danika Mendiola RN - 05/05/2023 1315 EDT Spoke with the patient she is concerned she is very shaky, feels an internal shaking, all day, moreaware of it when lying in bed. She had this shaking prior to surgery, does not seem to be better, maybe a little worse. She does not drink much caffeine. She drinks plenty of water through out the day. The shaking seems to be effecting her mood, more short tempered. Will forward to Dr. Sanchez for recommendations. * Telephone Encounter - Ariela Alonzo - 05/05/2023 1254 EDT Patient called in on emergency line, would not discuss how she is feeling but was anxious that she had not received her lab results. Advised that Dr. Sanchez sent a [employer] message on Tuesday (read it to her) and she felt better about that but would still like to speak with a nurse (specifically Danika) about how she's been feeling since her procedure. Please call. documented in this encounter Plan of Treatment Upcoming Encounters Date Type Department Care Team (Late st Contact Info) Description 10/17/2024 10:20 EST Telemedicine [facility] Endocrinology - [address] [address] Ariela Woods MD [address] [phone] 10/18/2024 9:15 EST Telemedicine [facility] B2B OUTSIDE SALES REPRESENTATIVE Pelvic Medicine and Reconstructive Surgery - Medical Office [address] [address] Kelsy Fierro MD [address] [place] [address] Medical Office [facility], [address] [phone] documented as of this encounter Visit Diagnoses Not on filedocumented in this encounter Care Teams Childcare Attendant Relationship Specialty Start Date End Date Campos Lopes MD [address] [place] [address] PCP - General 05/21/09 documented as of this encounter
--- OUTSIDE RECORDS SUMMARY | 2024-10-09 11:20 | XMS_ITS | Encounter Summary ---
Author Organization [facility] Address [address] [place] [address] Care Team Providers Care Casino Host Name Role Phone Campos Lopes MD Primary Care Provider [phone] Encounter Details Date Type Department Care Team (Latest Contact Info) Description 04/06/2023 10:30 EDT - 04/06/2023 23:59 EDT Hospital Encounter [facility] Pre-Surgical Testing [address], [place] [address] Discharge Disposition: Home or Self Care Social [...] - - Weight 78.5 kg (173 lb) 04/06/2023 1049 EDT Height 163.8 cm (5' 4.5) 04/06/2023 1049 EDT Body Mass Index 29.24 04/06/2023 1049 EDT documented in this encounter Functional Status * Because of [...] 6 hours as needed for Pain. 04/14/2023 calcitRIOL (ROCALTROL) 0.25 mcg capsule Take 1 [...] before breakfast. 30 Tablet 11 04/15/2023 3 magnesium oxide (MAG-OX) 400 mg tablet Take 1 Tablet by mouth daily before breakfast. Currently taking 3 nitrofurantoin, macrocrystal-mon ohydrate, (MACROBID) 100 mg capsule Take 1 Capsule by mouth 2 times daily. 04/01/2023 3 omeprazole (PRILOSEC) 10 mg capsule Take [...] 09/27/2021 4 documented as of this encounter Discharge Disposition Disposition Code Departure Means Destination Home or Self Care documented in this encounter OR Notes * Preprocedure Instructions - Elizabeth Ibarra, JAZIEL - 04/06/2023 1030 EDT Maureen Thomas has been instructed as follows regarding medication administration for the day of the scheduled procedure. Date of Surgery: 04/13/23 Instructions for Taking Medications Day of Surgery Medication Dose and frequency Last Dose Hold Day of Surgery Take Day of Surgery albuterol 90 mcg/actuation inhaler Inhale 1-2 Puffs as directed every 6 hours as needed for Wheezing. Reported on 01/05/2017 prn ascorbic acid, vitamin C, 500 mg capsule every 8 hours. 04/06/23 atenoloL (TENORMIN) 25 mg tablet Take 25 mg by mouth daily. take ergocalciferol, vitamin D2, 2,000 unit tablet Take 2,000 Units by mouth daily. Twice weekly 04/06/23 fluticasone propionate (FLONASE) 50 mcg/actuation nasal spray fluticasone propionate 50 mcg/actuation nasal spray,suspension as needed prn gabapentin (NEURONTIN) 100 mg capsule 1 Capsule every 8 hours. Patient not taking: Reported on 10/22/2021 glycopyrrolate-formoteroL (BEVESPI AEROSPHERE) 9-4.8 mcg HFA aerosol inhaler BEVESPI AEROSPHERE 9-4.8 MCG/ACT AERO Patient not taking: Reported on 11/30/2021 ibuprofen (MOTRIN) 200 mg tablet Take 4 Tabs by mouth every 8 hours as needed for Pain. Hold 3 daysprior ipratropium (ATROVENT) 42 mcg (0.06 %) nasal spray USE 2 SPRAYS IN EACH NOSTRIL THREE TIMES DAILY FOR 5 DAYS prn ipratropium-albuteroL (DUONEB) 0.5 mg-3 mg(2.5 mg base)/3 mL nebulizer solution IPRATROPIUM-ALBUTEROL 0.5-2.5 (3) MG/3ML SOLN Patient not taking: Reported on 10/22/2021 levOFLOXacin (LEVAQUIN) 500 mg tablet Take 500 mg by mouth daily. Patient not taking: Reported on 04/30/2022 magnesium oxide (MAG-OX) 400 mg tablet Take 400 mg by mouth daily before breakfast. Currently taking Patient not taking: Reported on 11/30/2021 nitrofurantoin, macrocrystal-monohydrate, (MACROBID) 100 mg capsule Take 1 Capsule by mouth 2 timesdaily. 04/07/23 omeprazole (PRILOSEC) 10 mg capsule Take 20 mg by mouth 2 times daily. take phenazopyridine (PYRIDIUM) 100 mg tablet Take 1 Tablet by mouth 3 times daily as needed for Pain. prn Stop all vitamins and supplements 7 days prior to surgery. Nonsteroidal anti-inflammatories (NSAIDS; i.e. ibuprofen, naproxen, indomethacin, ketorolac, Motrin) stop 3 days prior to surgery. Acetaminophen (Tylenol) can be taken prior to surgery if needed. Preparing for surgery: o Fasting- Follow the eating and drinking instructions below unless otherwise instructed by your surgeon - STOP all solid FOOD and LIQUIDS Containing Fats, including Milk, at midnight the night before surgery - You May have FAT FREE CLEAR liquids until 2 hours before your scheduled time to arrive to the hospital on the day of surgery. Acceptable clear liquids include Water, apple juice, and sports drinks (Gatorade?? or Powerade?? avoid red and purple). - On the day of your procedure, no gum, mints, lozenges or hard candy. - Children under 1 year of age may have breast milk up to 4 hours and formula up to 6 hours before their procedure. - Pedialyte?? is also an acceptable clear liquid for children. o Safety - Infection prevention Shower with an ANTIBACTERIAL SOAP the night before surgery and the morning of surgery. If you were given scrub sponges, use those also, scrubbing well over the area indicated by your surgeon. Do not shave your surgical site for 3 days prior to surgery. Protect Surgical Site from injury such as cuts, bruising or burger After your morning shower avoid any personal care products such as creams, lotion, powders, deodorant, makeup, hairspray, perfumes or colognes. - Ride home We require you have a responsible Adult to drive you home after surgery or to accompany you in getting home via Taxi or Bus Your Family Member/Ride Home should stay at the hospital during the procedure until you are discharged. If your ride can't stay in the hospital, they still need to come in to pick you up to assist with medication draft roller picker from pharmacy, review of discharge instructions and surgical consult. We ask that your ride stay within 15 minutes of the hospital for draft roller picker. - CPAP/BiPAP Bring your CPAP or BiPAP machine in with you on the day of your surgery. - Nail pitcairn islander and Jewelry Remove all finger nail pitcairn islander and makeup before surgery Remove all jewelry including rings and Body Piercings before coming in for Surgery. - Glasses and Contacts Wear glasses on the Day of surgery. For eye surgeries avoid contacts for 7 days prior to surgery, unless otherwise instructed by your surgeon. - Full beards Shaving is optional, certain aspects of the anesthetic management can be made easier without a fullbeard. - Smoking Stop smoking tobacco and marijuana prior to surgery as much as possible with a minimum of 24 hours prior to surgery. o Medications - Inhalers Bring your inhalers in with you on the day of your surgery. - Bowel cleansing Follow the instructions for bowel cleansing given to you by your surgeon. Once you start, drink lots of clear liquids, stopping them at the time your surgeon told you to stop. It would be best to stay at home while doing the bowel cleansing. o Legal Guardianship - BRING Proof of Guardianship on Day of Surgery. - Legal Guardian is to be available on the Day of Surgery by Telephone if not physically present onthe Day of Surgery. - Surgical and/or other consents will be signed by Legal Guardian prior to the Day of Surgery if possible. o Call your surgeon IF: - You become ill before your surgery. - You have any new skin problems near the area where your surgery will be, such as a rash, blister,or infection. - You have any questions. - Your surgeon may have given you other instructions to prepare for surgery. Please follow these and if you have questions call your surgeon's office. Day of surgery o Identification - Please bring a photo ID, insurance card and any other information needed for your surgery. o Arrival - General Arrival Time is 2 hours prior to your surgery time. o Medications - Take as directed above with a small sip of water on day of surgery. - Bring a list of medications you take on the day of surgery. - Leave medications at home. o Clothing - Wear casual, loose fitting and comfortable clothing. We recommend you wear/bring inexpensive (avoid silks, etc.) clothing on Day of Surgery. For arm and hand surgery wear a zip up or button up shirt with short sleeves. For eye surgery, do not wear a shirt that pulls over the head unless it has a wide neck opening. Bring a hat with a visor or a pair of sunglasses to wear home after surgery. o Medical Devices - Bring any medical devices that you would normally use during the course of your day. These items include, but are not limited to: insulin pumps, mobility aids, CPAP. o Valuables - Bring only money you may need for you hospital co-pay and to purchase any prescriptions on the way home. Let the person driving you home hold you're your money while you are in surgery. - Leave jewelry at home - Leave contact lenses at home. Wear your eye glasses and bring your eye glass case. - Leave valuable items at home. Ask a family member to bring them in after you have been admitted to the inpatient unit if possible. o Equipment - Remember to bring pillows for the car ride home to elevate your arm or leg (for arm/leg surgery).Bring Crutches if needed. - Use the [employer]r given to you by your surgeon or nurse. Starting 2 weeks prior to your surgery use it 2 times a day, 10 times each use. Bring it with you on the day of your surgery. o Visitation - Per our Welcoming Policy ???Unit nursing staff may have to ask patients and families to limit numbers of family members at the bedside when it impacts the environment of care?? - Typically two visitors are allowed in the Preop and Recovery areas. o Bring plastic bags and paper towels in the car for the Trip Home. o Contact information - Patient/Family given Preop Contact Numbers appropriate to campus of surgery. For Day of Surgery: [facility] [place]: [phone]; [facility] [place]; [phone]. Prior to Day of Surgery call: [phone]. Pre-op toll Free Number . - More information can also be found on our website: [email or web address] documented in this encounter Plan of Treatment Upcoming Encounters Date Type Department Care Team (Late st Contact Info) Description 10/17/2024 10:20 EST Telemedicine [facility] Endocrinology - [facility] [address] [place] [address] Ariela Woods MD [address] [facility] [address] [place] [address] 10/18/2024 9:15 EST Telemedicine [facility] POWER TOOL REPAIR TECHNICIAN Pelvic Medicine and Reconstructive Surgery - Medical Office Building [facility] [address] [place], [place] [phone] Kelsy Fierro MD [address] [facility], [facility] Office Building, [address] [place] [address] documented as of this encounter Visit Diagnoses Not on filedocumented in this encounter Historical Medications * This list may reflect changes made after this encounter. nitrofurantoin, macrocrystal-mono hydrate, (MACROBID) 100 mg capsule Take 1 Capsule by mouth 2 times daily. 04/01/2023 04/07/2023 added in this encounter Care Teams Casino Host Relationship Specialty Start Date End Date Campos Lopes MD [address] [place], [place] [id number] PCP - General 05/21/09 documented as of this encounter
--- OUTSIDE RECORDS SUMMARY | 2024-10-09 11:21 | XMS_ITS | Encounter Summary ---
Author Organization [facility] Address [address] [place] [address] Care Team Providers Care Maintenance Engineer Oil Field Name Role Phone Campos Lopes MD Primary Care Provider Encounter Details Date Type Department Care Team (Latest Contact Info) Description 02/17/2021 9:50 EDT - 02/17/2021 23:59 EDT Hospital Encounter [facility] Pre-Surgical Testing [address], [place] [address] Discharge Disposition: Home or Self Care Social [...] as needed for Wheezing. Reported on 01/05/2017 ergocalciferol, vitamin D2, 2,000 unit tablet Take by mouth daily. 1000 IU glycopyrrolate-f ormoteroL (BEVESPI AEROSPHERE) 9-4.8 mcg HFA aerosol inhaler BEVESPI AEROSPHERE 9-4.8 MCG/ACT AERO 09/09/2020 ipratropium-albu teroL (DUONEB) 0.5 mg-3 mg(2.5 mg base)/3 mL nebulizer solution IPRATROPIUM-ALBU TEROL 0.5-2.5 (3) MG/3ML SOLN 09/18/2020 atenolol (TENORMIN) 50 mg tabletIndication s:Hyperthyroidis m Take 25 mg by mouth daily before breakfast. 3 estradiol (ESTRACE) 0.01 % (0.1 mg/g) vaginal cream Place vaginally. Per vagina 2 x weekly 1 Tube 11 06/29/2011 3 fluticasone-salm eterol (ADVAIR HFA) 230-21 mcg/actuation inhaler Inhale 2 Puffs as directed 2 times daily . 3 gabapentin (NEURONTIN) 100 mg capsule 1 Capsule every 8 hours. 11/03/2020 4 ibuprofen (MOTRIN) 200 mg tablet Take 4 Tablets by mouth every 8 hours as needed for Pain. 3 losartan (COZAAR) 25 mg tablet Take 25 mg by mouth daily. Pt states not taking 1 magnesium oxide (MAG-OX) 400 mg tablet Take 1 Tablet by mouth daily before breakfast. Currently taking 3 methylPREDNISolo ne (MEDROL) 4 mg tablet MEDROL 4 MG TABS 07/08/2020 01/27/20 2 3 Multivitamins with Minerals tablet tablet Take 1 Tab by mouth daily. 3 nitrofurantoin, macrocrystal-mon ohydrate, (MACROBID) 100 mg capsule 1 Capsule every 12 hours. 07/07/2020 2 omeprazole (PRILOSEC) 10 mg capsule Take 2 Capsules by mouth 2 times daily. 4 solifenacin (VESICARE) 10 mg tablet Take 5 mg by mouth as needed. 3 documented as of this encounter Discharge Disposition Disposition Code Departure Means Destination Home or Self Care documented in this encounter Progress Notes * Marisol Wetzel RN - 02/17/2021 0999 EDT COVID 19 Screening Perioperative at time [...] instruct them to call us back at [phone] to report symptoms (If patient is in Surgical Admissions and answers yes, please notify Surgery and Anesthesia team). Follow proper precautions- yellow mask to patient/family. Visitor Policy: -Surgical/Procedural Patients: ??? 1 healthy support person for patients arriving for any procedure requiring sedation, vaccine not required ??? Pediatrics: PreOp may allow 2 parents/guardians, PACU may allow 1 parent/guardians -Inpatient Adult: ??? 1 healthy, vaccinated (fully vaccinated, 2 weeks post vaccination) support person per day, 5am-9pm ??? No visitors permitted if patient is COVID+ or PUI ??? Patients with communication needs (i.e., persons who are deaf or who do not understand/speak Tajik) or a cognitive impairment are permitted 1 healthy support person per day regardless of vaccination status. ??? No overnight visitors, other than for limited exceptions, such as patients with communication or other special needs (such as for those patients who are deaf or who do not understand or speak Tajik and those with cognitive impairments). ??? Inpatient visitors must check in at Information desk in the [facility], level 3. Visitor will be askedto show vaccination proof and will receive a sticker that will allow access to inpatient units. -Inpatient Pediatrics: ??? 2 healthy parents/guardians: 5am- 9 pm ??? 1 healthy parent/guardian permitted overnight: 9pm- 5am documented in this encounter OR Notes * Preprocedure Instructions - Marisol Wetzel RN - [...] as needed for Wheezing. Reported on 01/05/2017 Yes atenolol (TENORMIN) [...] inhaler Inhale 2 Puffs as directed 2 timesdaily . Yes ibuprofen (MOTRIN) 200 mg tablet [...] by mouth daily before breakfast. Currently taking Yes Multivitamins with Minerals tablet tablet Take 1 [...] EST Telemedicine [facility] Endocrinology - [address] [phone] Ariela Woods MD [address] [place] [address] [place] [phone] 10/18/2024 9:[address] [facility] SERVICES HOST Pelvic Medicine and Reconstructive Surgery - Medical Office Building [address] [phone] Kelsy Fierro MD [address] [place] [address] Medical Office [facility], [address] [phone] documented as of this encounter Visit Diagnoses Not on filedocumented in this encounter Discontinued Medications Medication Sig Discontinue Reason Start Date End Da te ranitidine (ZANTAC) 150 mg tablet Take 150 mg by mouth daily before breakfast. Therapy completed 09/14/2019 02/17/2021 omeprazole (PRILOSEC) 20 mg capsule Take by mouth daily. Pt does know dose Therapy completed 02/17/2021 documented as of this encounter Historical Medications * This list may reflect changes made after this encounter. omeprazole (PRILOSEC) 10 mg capsule Take 2 Capsules by mouth 2 times daily. 03/21/2024 added in this encounter Care Teams Maintenance Engineer Oil Field Relationship Specialty Start Date End Date Campos Lopes MD [address] [place] [address] PCP - General 05/21/09 documented as of this encounter
--- OUTSIDE RECORDS SUMMARY | 2024-10-09 11:21 | XMS_ITS | Encounter Summary ---
Author Organization [facility] Address [address] [place] [address] Care Team Providers Care Director Network Development Name Role Phone Campos Lopes MD Primary Care Provider [phone] Reason for Visit * (Routine/Next Available) - Receiving Office to Obtain Authorization Specialty Diagnoses / Procedures Referred By Lynnette osman Referred To Contact Procedures CT OUTSIDE IMAGES OTHER Imaging, External Referral ID Status Reason Start Date Expiration Date Visits Requested Visits Authorized [id number] Receiving Office to Obtain Authorization 01/13/2023 1 1 Encounter Details Date Type Department Care Team (Latest Contact Info) Description 08/10/2022 - 08/10/2022 23:59 EDT Hospital Encounter [facility] Secondary Reads [place] Discharge Disposition: Home [...] Contact Info) Description 10/17/2024 10:20 EST Telemedicine [facility] Endocrinology - [address] [address] Ariela Woods MD [address] [place] [phone] 10/18/2024 9:15 EST Telemedicine [facility] SERVICE WRITER Pelvic Medicine and Reconstructive Surgery - Medical Office [address] [phone] Kelsy Fierro MD [address] [place] [address] Medical Office [facility] [address], [address] [phone] documented as of this encounter Procedures Procedure Name Priority Date/Time Associated Diagnosis Comments CT OUTSIDE IMAGES OTHER Routine 08/10/2022 9:14 EDT documented in this encounter Results * CT OUTSIDE IMAGES OTHER (08/10/2022 9:14 EDT) Narrative 01/13/2023 9:15 EDT This is a non-reportable exam. us External Imaging IMG OTHER IMAGING ORDERABLES Fi nal Result documented in this encounter Visit Diagnoses Not on filedocumented in this encounter Care Teams Director Network Development Relationship Specialty Start Date End Date Campos Lopes MD [address] [place] [address] PCP - General 05/21/09 documented as of this encounter
--- OUTSIDE RECORDS SUMMARY | 2024-10-09 11:21 | XMS_ITS | Encounter Summary ---
Author Organization Health system Address [address] [place] [address] Care Team Providers Care Supervisor Diagnostic Name Role Phone Campos Lopes MD Primary Care Provider [phone] Reason for Visit * Reason Onset Date Comments Medication Problem 05/06/2022 Encounter Details Date Type Department Care Team (Late st Contact Info) Description 05/06/2022 Telephone [facility] Endocrinology [address] [place] [address] Carlton Valentin MD [address] [facility] [address] [place] [address] Medication Problem Social History Tobacco Use Types [...] encounter Miscellaneous Notes * Telephone Encounter - Lauren Givens - 05/11/2022 1427 EDT Patient called again, I spoke with Ilya and she is still working on this and will call her back * Telephone Encounter - Ilya Ferro MA - 05/11/2022 1409 EDT Neither or are familiar with Polymixin instillation so looks like that's will not be something we can offer. It is a med that needs to be given in a clinic setting not through a pharmacy from what I have found. I have discussed this with Juliane Mtz, Our practice lead, who has offered to call and speak with her d/t her last call w/ Kaye and her expressing how upset she is that she has not got an answer right off. * Telephone Encounter - Ilya Ferro MA - 05/10/2022 0911 EDT Upon looking into this deeper it seems as though it cant be ordered from a pharmacy, it actually needs to be ordered and given in clinic and this may make it so the insurance will indeed cover it if done in-clinic. The issue is this was preferential treatment and we have have never used this here and being a locum it doesn't seem practical to have it started here when he is only temporarily here. I will talk to and see if he would be willing to do them, maybe the other choice is her PCP? I will call after I discuss with Juan and see if he is open to this and also look and see if it is even something we can easily get through our pharmacy * Telephone Encounter - Lauren Givens - 05/06/2022 1235 EDT Patient notified that pa was denied and she should call her insurance. She wants Ilya to call her on Tuesday when she is back. documented in this encounter Plan of Treatment Upcoming Encounters Date Type Department Care Team (Late st Contact Info) Description 10/17/2024 10:20 EST Telemedicine [facility] Endocrinology - [facility] [address] [place], [place] [phone] Ariela Woods MD 62 [facility] [address] [place] [phone] 10/18/2024 9:15 EST Telemedicine [facility] AGENCY SALES DIRECTOR Pelvic Medicine and Reconstructive Surgery - Medical Office Building [facility] [address] [place] [phone] Kelsy Fierro MD [address] [place] [address] Medical Office [facility], [address] [place] [phone] documented as of this encounter Visit Diagnoses Not on filedocumented in this encounter Care Teams Supervisor Diagnostic Relationship Specialty Start Date End Date Campos Lopes MD [address] [place], [place] [phone] PCP - General 05/21/09 documented as of this encounter
--- OUTSIDE RECORDS SUMMARY | 2024-10-09 11:21 | XMS_ITS | Encounter Summary ---
Author Organization [facility] Address [address] [place] [address] Care Team Providers Care Oracle Fusion Middleware Architect Name Role Phone Campos Lopes MD Primary Care Provider [phone] Reason for Visit * Reason Onset Date Comments COVID-19 02/08/2021 Encounter Details Date Type Department Care Team (Late st Contact Info) Description 02/08/2021 Telephone [place] [facility] [employer] [address] [place] [address] Alan Milton MD [address] [facility], [address] [place] [address] COVID-19 Social History Tobacco Use Types Packs/Day Years Used Date Smoking Tobacco: Former Cigarettes 1 32 1 10/19/1962 - 08/19/1995 Smokeless Tobacco: Never Alcohol Use Standard Drinks/Week Comments Yes 0 (1 standard drink = 0.6 oz pur e alcohol) very rare Interpersonal Safety Answer Date Record ed Physically [...] encounter Miscellaneous Notes * Telephone Encounter - Valerie Cervantes - 02/08/2021 1631 EDT Patient advised they would like covid testing done at [facility]. [employer] faxed the order to [phone] and asked that they schedule the patient for testing on 02/20. Also made patient aware of testing dates and the need to quarantine after testing. [employer] will also remove patient from the work queue. documented in this encounter Plan of Treatment Upcoming Encounters Date Type Department Care Team (Late st Contact Info) Description 10/17/2024 10:20 EST Telemedicine [facility] Endocrinology - [address] [address] Ariela Woods MD 62 [facility] [address] [place] [phone] 10/18/2024 9:15 EST Telemedicine [facility] [employer] ROBOTICIST Pelvic Medicine and Reconstructive Surgery - Medical Office Building [address] [phone] Kelsy Fierro MD [address] [place] [address] Medical Office [facility], [address] [phone] documented as of this encounter Visit Diagnoses Not on filedocumented in this encounter Care Teams Oracle Fusion Middleware Architect Relationship Specialty Start Date End Date Campos Lopes MD [address] [place] [address] PCP - General 05/21/09 documented as of this encounter
--- OUTSIDE RECORDS SUMMARY | 2024-10-09 11:21 | XMS_ITS | Encounter Summary ---
Author Organization [facility] Address [address] [place] [address] Care Team Providers Care Director Of Architecture Name Role Phone Campos Lopes MD Primary Care Provider [phone] Reason for Visit * Reason Comments Follow-up Encounter Details Date Type Department Care Team ([facility] Contact Info) Description 12/24/2021 13:00 EDT Office Visit [facility] [address] [place] [address] John Martinez MD 130 [facility] [address] [place] [address] Chronic interstitial cystitis (Primary Dx) Social History Tobacco Use Types [...] documented in this encounter Progress Notes * John Martinez MD - 12/24/2021 1300 EDT [...] ??? COPD (chronic obstructive pulmonary disease) ([facility]) ([facility]) well controlled with inhalers per [...] every 8 hours. (Patient not taking: Reported on10/22/2021) ??? glycopyrrolate-formoteroL (BEVESPI AEROSPHERE) 9-4.8 mcg HFA aerosol inhaler BEVESPI AEROSPHERE9-4.8 MCG/ACT AERO (Patient not taking: Reported on [...] % mucosal jelly (Patient not taking: Reported on 10/22/2021) ??? magnesium oxide (MAG-OX) 400 mg tablet [...] by mouth as needed. (Patient not taking: Reportedon 10/22/2021) ??? SYMBICORT 160-4.5 mcg/actuation HFA aerosol inhaler inhaler INHALE 1 PUFF BY MOUTH TWICE DAILY (Patient not taking: Reported on 10/22/2021) ??? terconazole (TERAZOL 7) 0.4 % vaginal cream terconazole 0.4 % vaginal cream (Patient not taking: Reported on 11/30/2021) ??? tolterodine (DETROL LA) 4 [...] ??? Mirabegron Other (See Comments) ??? Amitriptyline SHOE SINGER changes at low dose ??? Ciprofloxacin Other [...] ingredient cocktail administered under sterile conditions without difficulty, tolerated well. Continue other management in place, stopped [...] Info) Description 10/17/2024 10:20 EST Telemedicine [facility] Endocrinology - [facility] [address] [place] [address] Ariela Woods MD 62 [facility] [address] [place] [phone] 10/18/2024 9:15 EST Telemedicine [facility] DECORATING AND ASSEMBLY SUPERVISOR Pelvic Medicine and Reconstructive Surgery - Medical Office Building [address] [phone] Kelsy Fierro MD [address] [place] [address] [facility], [address] [phone] documented as of this encounter Visit Diagnoses Diagnosis Chronic interstitial cystitis- Primary documented in this encounter Orders Medications Ordered That Yeison ht Not Have Been Administered Count Last Ordered Date First Ordered Date heparin 20,000 Units, methyl PREDNISolone sod suc(PF) (SOLU-MEDROL) 125 mg, sodium bicarbonate 8.4 % 5 mL, lidocaine 20 mg/mL (2 %) 10 mL, sterile water (PF) 26 mL bladder irrigation 1 12/22/2021 documented in this encounter Care Teams Director Of Architecture Relationship Specialty Start Date End Date Campos Lopes MD [address] [place] [address] PCP - General 05/21/09 documented as of this encounter
--- OUTSIDE RECORDS SUMMARY | 2024-10-09 11:21 | XMS_ITS | Encounter Summary ---
Author Organization [facility] Address [address] [place] [address] Care Team Providers Care Stator Winder Name Role Phone Campos Lopes MD Primary Care Provider [phone] Encounter Details Date Type Department Care Team (Late Contact Info) Description 11/02/2021 Orders Only [facility] [address] [place] [address] John Martinez MD 130 [facility] [address] [place] [address] Social History Tobacco Use Types [...] Info) Description 10/17/2024 10:20 EST Telemedicine [facility] Endocrinology - [facility] [address] [place], [place] [phone] Ariela Woods MD 62 [facility] [address] [place] [address] 10/18/2024 9:15 EST Telemedicine [facility] ADULT NEUROPSYCHOLOGIST Pelvic Medicine and Reconstructive Surgery - Medical Office Building [facility] [address] [place] [phone] Kelsy Fierro MD [address] [place] [address] Medical Office [facility], [address] [phone] documented as of this encounter Visit Diagnoses Not on filedocumented in this encounter Care Teams Stator Winder Relationship Specialty Start Date End Date Campos Lopes MD [address] [place], [place] [phone] PCP - General 05/21/09 documented as of this encounter
--- OUTSIDE RECORDS SUMMARY | 2024-10-09 11:21 | XMS_ITS | Encounter Summary ---
Author Organization [facility] Address [address] [place] [address] Care Team Providers Care Gasket Inspector Name Role Phone Campos Lopes MD Primary Care Provider [phone] Reason for Visit * Reason Onset Date Comments Pharmacy 01/04/2022 Encounter Details Date Type Department Care Team (Late Contact Info) Description 01/04/2022 Orders Only [facility] [address] [place] [address] John Martinez MD 130 [facility] [address] [place] [address] Social History Tobacco Use Types [...] documented in this encounter Progress Notes * Ilya Ferro MA - 01/04/2022 1506 EDT Please send electronic prescription for the bar cocktail to [facility]; 20 ml / 5 % bupvicane 10 ml / 10,000 units Heparin 40 ml / 8.4 % Sodium bicarbonate 100 mg hydrocortisone They need dose & quanity of refills as well as directions. documented in this encounter Plan of Treatment Upcoming Encounters Date Type Department Care Team (Late st Contact Info) Description 10/17/2024 10:20 EST Telemedicine [facility] Endocrinology - [address] [phone] Ariela Woods MD 62 [facility] [address] [place] [phone] 10/18/2024 9:15 EST Telemedicine [facility] TOOTH INSPECTOR Pelvic Medicine and Reconstructive Surgery - Medical Office [facility] [address] [place] [phone] Kelsy Fierro MD 792 [facility], [address] [phone] documented as of this encounter Visit Diagnoses Not on filedocumented in this encounter Care Teams Gasket Inspector Relationship Specialty Start Date End Date Campos Lopes MD [address] [place], [place] [phone] PCP - General 05/21/09 documented as of this encounter
--- OUTSIDE RECORDS SUMMARY | 2024-10-09 11:21 | XMS_ITS | Encounter Summary ---
Author Organization [facility] Address [address] [place] [address] Care Team Providers Care Cnc Technician Name Role Phone Campos Lopes MD Primary Care Provider [phone] Encounter Details Date Type Department Care Team ([facility] Contact Info) Description 06/23/2022 Lab Requisition [facility] Pathology & Laboratory Medicine - [facility] [address] [place] [address] Yobany Sawyer MD [address] [place] [address] DR HERNANDEZ [place], [place] [phone] Encounter for other general examination Social History Tobacco Use Types Packs/Day Years [...] Contact Info) Description 10/17/2024 10:20 EST Telemedicine [facility] Endocrinology - [facility] [address] [place] [address] Ariela Woods MD 62 [facility] [address] [place] [phone] 10/18/2024 9:15 EST Telemedicine [facility] OFFICE CASHIER Pelvic Medicine and Reconstructive Surgery - Medical Office [facility] [address] [place] [phone] Kelsy Fierro MD 2 [facility], [address] [phone] documented as of this encounter Procedures Procedure Name Priority Date/Time Associated Diagnosis Comments SURGICAL PATHOLOGY Today 06/23/2022 9: 20 EDT Encounter for other general examination documented in this encounter Results * SURGICAL PATHOLOGY (06/23/2022 9:20 EDT) Note to Patient The following pathology results have been interpreted by your pathologist and may be available to you before your health provider has had the opportunity to review them. Please allow time for your provider to receive these results and explore management options, if applicable. 07/01/2022 9:36 EDT [facility] Final Diagnosis A. GALLBLADDER, CHOLECYSTECTOMY: - Mild chronic cholecystitis 07/01/2022 9:36 EDT [facility] Attestation There was significant resident/fellow involvement in the diagnostic evaluation of this case. By the signature below, the attending physician certifies that they have personally conducted a gross and/or microscopic examination of the described specimens and rendered or confirmed the above diagnosis. 07/01/2022 9:36 EDT [facility] at 0936 Clinical History Biliary dyskinesia 07/01/2022 9:36 EDT [facility] Gross Description A. Received in formalin labelled with proper patient identification (initials E, B) and 1. Gallbladder and contents is an intact gallbladder with an attached segment of cystic duct (7.6 x 2.3 x 1.8 cm). A cystic duct lymph node is not present. The serosa is generally smooth, yellow and stuart garcia. The mucosa is velvety dark green and the wall is 0.2 cm in thickness. The cystic duct lumen is patent and measures 0.1 cm in diameter. The cystic duct margin is inked blue. Two canvas products sales representative sections and the en face cystic duct margin are submitted in A1. MUNDO ARNOLD DO 06/24/2022 10:19 07/01/2022 9:36 EDT [facility] Resident/Juan Carlos w: Mundo Arnold DO 07/01/2022 9:36 EDT [facility] Performing Lab [facility] 07/01/2022 9:36 EDT [facility] Scanned Images 07/01/2022 9:36 T [facility] Tissue ENTIRE GALLBLADDER / Unknown 06/23/2022 9:20 EDT 06/23/2022 17:33 EDT us Yobany Sawyer MD PATHOLOGY ORDERABLES Fin al Result [facility] [address] [place] [address] documented in this encounter Visit Diagnoses Diagnosis Encounter for other general examination documented in this encounter Care Teams Cnc Technician Relationship Specialty Start Date End Date Campos Lopes MD [address] [place] [address] PCP - General 05/21/09 documented as of this encounter
--- OUTSIDE RECORDS SUMMARY | 2024-10-09 11:21 | XMS_ITS | Encounter Summary ---
Author Organization [facility] Address [address] [place] [address] Care Team Providers Care Nurses Assistant Name Role Phone Campos Lopes MD Primary Care Provider [phone] Reason for Visit * Reason Onset Date Comments Update 01/11/2022 Encounter Details Date Type Department Care Team (Late Contact Info) Description 01/11/2022 Telephone [facility] [place] [address] [place] [address] John Sauer MD 130 [facility] [address] [place] [address] Update Social History Tobacco Use Types Packs/Day Years [...] * Telephone Encounter - Lauren Givens - 01/11/2022 1046 EDT Patient wants to speak with dr sauer regarding compounding medication. Please call her documented in this encounter Plan of Treatment Upcoming Encounters Date Type Department Care Team (Late st Contact Info) Description 10/17/2024 10:20 EST Telemedicine [facility] Endocrinology - [facility] [address] [place], [place] [phone] Ariela Woods MD 62 [facility] [address] [place] [phone] 10/18/2024 9:15 EST Telemedicine [facility] CRUSHER SUPERVISOR Pelvic Medicine and Reconstructive Surgery - Medical Office Building [address] [address] Kelsy Fierro MD [address] [place] [address] Medical Office [facility], [address] [place] [phone] documented as of this encounter Visit Diagnoses Not on filedocumented in this encounter Care Teams Nurses Assistant Relationship Specialty Start Date End Date Campos Lopes MD [address] [place] [address] PCP - General 05/21/09 documented as of this encounter
--- OUTSIDE RECORDS SUMMARY | 2024-10-09 11:21 | XMS_ITS | Encounter Summary ---
Author Organization [facility] Address [address] [place] [address] Care Team Providers Care Certified Novell Engineer Name Role Phone Campos Lopes MD Primary Care Provider [phone] Encounter Details Date Type Department Care Team ([facility] st Contact Info) Description 01/27/2021 Orders Only [facility] [address] [place], [place] [phone] Alan Milton MD [address] [facility], [address] [place] [address] Encounter for preprocedure screening laboratory testing for COVID-19 (Primary Dx) Social History Tobacco Use Types [...] Description 10/17/2024 10:20 EST Telemedicine [facility] Endocr[facility]ology - [facility] [address] [place], [place] [phone] Ariela Woods MD 62 [facility] [address] [place] [phone] 10/18/2024 9:15 EST Telemedicine [facility] INSURANCE TERRITORY MANAGER Pelvic Medicine and Reconstructive Surgery - Medical Office [address] [phone] Kelsy Fierro MD [address] [place] [address] Medical Office [facility], [address] [place] [phone] documented as of this encounter Visit Diagnoses Diagnosis Encounter for preprocedure screening laboratory testing for COVID-19- Primary documented in this encounter Care Teams Certified Novell Engineer Relationship Specialty Start Date End Date Campos Lopes MD [address] [place] [address] PCP - General 05/21/09 documented as of this encounter
--- OUTSIDE RECORDS SUMMARY | 2024-10-09 11:21 | XMS_ITS | Encounter Summary ---
Author Organization [facility] Address [address] [place] [address] Care Team Providers Care Pattern Checker Name Role Phone Campos Lopes MD Primary Care Provider [phone] Encounter Details Date Type Department Care Team (Late Contact Info) Description 04/18/2022 Lab Requisition [facility] Pathology & Laboratory Medicine - [facility] [address] [place] [address] Outr Resulting Lab, Provider Social History Tobacco [...] Contact Info) Description 10/17/2024 10:20 EST Telemedicine [facility] Endocrinology - [facility] [address] [place] [address] Ariela Woods MD 62 [facility] [address] [place] [phone] 10/18/2024 9:15 EST Telemedicine [facility] WEB SEARCH EVALUATOR Pelvic Medicine and Reconstructive Surgery - Medical Office Building [facility] [address] [place] [address] Kelsy Fierro MD [address] [place] [address] Medical Office [facility], [address] [place] [phone] documented as of this encounter Procedures Procedure Name Priority Date/Time Associated Diagnosis Comments T3 FREE Routine 04/18/2022 17:46 EDT documented in this encounter Results * (ABNORMAL) T3 FREE (04/18/2022 17:46 EDT) T3, Free 7.3(H) 2.8 - 5.3 pg/mL 04/19/2022 22:06 EDT [facility] Blood VENOUS BLOOD / Unknown 04/18/2022 17:46 EDT 04/19/2022 21:31 EDT us Provider Outr Resulting Lab CHEMISTRY & BLOOD GA S ORDERABLES Final Result [facility] [address] [place] [address] documented in this encounter Visit Diagnoses Not on filedocumented in this encounter Care Teams Pattern Checker Relationship Specialty Start Date End Date Campos Lopes MD [address] [place], [place] [phone] PCP - General 05/21/09 documented as of this encounter
--- OUTSIDE RECORDS SUMMARY | 2024-10-09 11:21 | XMS_ITS | Encounter Summary ---
Author Organization [facility] Address [address] [place] [address] Care Team Providers Care Offset Platemaker Name Role Phone Campos Lopes MD Primary Care Provider [phone] Reason for Visit * Reason Onset Date Comments Cystoscopy 11/23/2021 Encounter Details Date Type Department Care Team (Late Contact Info) Description 11/23/2021 Telephone [facility] [address] [place] [address] John Martinez MD 130 [facility] [address] [place] [address] Cystoscopy Social History Tobacco Use Types Packs/Day Years [...] encounter Miscellaneous Notes * Telephone Encounter - Mae Sanford - 11/23/2021 1252 EST Rescheduled * Telephone Encounter - Ilya Ferro MA - 11/23/2021 1103 EST Left message for more details as I don't see anything in her records about recent UTI. * Telephone Encounter - Mae Sanford - 11/23/2021 0946 EST Patient states she has UTI, and wants to know if that affects tomorrow's cysto? Please advise documented in this encounter Plan of Treatment Upcoming Encounters Date Type Department Care Team (Late st Contact Info) Description 10/17/2024 10:20 EST Telemedicine [facility] Endocrinology - [address] [phone] Ariela Woods MD [address] [place] [address] [place] [phone] 10/18/2024 9:15 EST Telemedicine [facility] BOARDINGHOUSE KEEPER Pelvic Medicine and Reconstructive Surgery - Medical Office Building [facility] [address] [place] [address] Kelsy Fierro MD [address] [place] [address] Medical Office Building, [address] [place] [phone] documented as of this encounter Visit Diagnoses Not on filedocumented in this encounter Care Teams Offset Platemaker Relationship Specialty Start Date End Date Campos Lopes MD [address] [place] [address] PCP - General 05/21/09 documented as of this encounter
--- OUTSIDE RECORDS SUMMARY | 2024-10-09 11:21 | XMS_ITS | Encounter Summary ---
Author Organization [facility] Address [address] [place] [address] Care Team Providers Care Film Technician Name Role Phone Campos Lopes MD Primary Care Provider [phone] Reason for Visit * Reason Comments Follow-up Encounter Details Date Type Department Care Team ([facility] Contact Info) Description 01/07/2022 13:30 EDT Office Visit [facility] [address] [place] [address] John Martinez MD [address] [facility] [address] [place] [address] Frequent UTI (Primary Dx); Chronic interstitial cystitis Social History Tobacco Use Types Packs/Day Years [...] 07/11/2017 9:19 EDT documented in this encounter Ordered Prescriptions Prescription Sig Dispense Quantity Refills Last Filled Start Date End Date phenazopyridine (PYRIDIUM) 100 mg tablet Take 1 Tablet by mouth 3 times daily as needed for Pain. 90 Tablet 5 01/07/2022 3 lidocaine (XYLOCAINE) 2 % jelly Apply to urethra twice daily as needed 30 mL 3 01/07/2022 3 documented in this encounter Progress Notes * John Martinez MD - 01/07/2022 1330 EDT 01/07/2022 FOLLOWUP CHIEF COMPLAINT Follow-up PATIENT: Maureen Thomas HISTORY OF PRESENT ILLNESS Maureen Thomas is a very pleasant 81 y.o. female who presents with chronic IC. Symptoms recently marked by urgency, frequency and urethral pain, minimal bladder pain with fullness. Had about 3 days of relief after last instillation. [facility] for home [place] cocktail admin. Will be receiving 4 instillations for weekly use. PAST HISTORY Past Medical History: Diagnosis Date ??? Acquired complex renal cyst 07/31/2018 ??? Activity, other involving cardiorespiratory exercise able to climb 1 FOS sometimes; gardening ??? Asthma 11/10/2020 - exercise induced / cold weather; pt denies 02/17/2021 ??? Basal cell carcinoma of skin 10/22/2021 ??? COPD (chronic obstructive pulmonary disease) ([facility] ([facility]) well controlled with inhalers per pt [...] ??? Mirabegron Other (See Comments) ??? Amitriptyline SUPPORT COORDINATOR changes at low dose ??? Ciprofloxacin Other [...] She is unsure if had adverse rxn to that previously and the documentation regarding that is [...] MD documented in this encounter Miscellaneous Notes * Result Encounter Note - John Martinez MD - 01/07/2022 1330 EDT Ceftin 500 bid x 10 days ordered to pharmacy on file. Please inform patient documented in this encounter Plan of Treatment Upcoming Encounters Date Type Department Care Team (Late st Contact Info) Description 10/17/2024 10:20 EST Telemedicine [facility] Endocrinology - [facility] [address] [place], [place] [phone] Ariela Woods MD 62 [facility] [address] [place] [phone] 10/18/2024 9:15 EST Telemedicine [facility] STATION ATTENDANT Pelvic Medicine and Reconstructive Surgery - Medical Office [facility] [address] [place] [phone] Kelsy Fierro MD 2 [facility], [address] [phone] documented as of this encounter Procedures Procedure Name Priority Date/Time Associated Diagnosis Comments BACTERIAL CULTURE, URINE Routine 01/07/2022 14:06 EDT Frequent UTI POCT URINALYSIS Routine 01/07/2022 13:48 EDT Frequent UTI documented in this encounter Results * (ABNORMAL) BACTERIAL CULTURE, URINE (01/07/2022 14:06 EDT) Organism ID Greater than 100,000 CFU/ml Escherichia coli(A) VITEK SUSCEPTIBILITY 01/09/2022 8:[address] [facility] Comment: Cefazolin susceptibility results can be used to predict susceptibility results for the following oral cephalosporins when used for therapy of uncomplicated UTI's due to E.coli, K.pneumoniae and P.mirabilis: cefaclor, cefdinir, cefpodoxime, cefprozil, cefuroxime, cephalexin and loracarbef. ??Please note that only cefdinir, cefpodoxime, cefuroxime and cephalexin are on the [facility] inpatient formulary. Urine URINE SPECIMEN COLLECTION, CLEAN CATCH / Unknown Urine Collect / Unknown 01/07/2022 14:06 EDT 01/07/2022 14:06 EDT Narrative Organism Antibiotic Method Susceptibility Escherichia coli Amoxicillin Clavulan ic acid VITEK SUSCEPTIBILITY 4 ug/mL: Susceptible Escherichia coli Ampicillin VITEK SUSCEPTIBILITY 8 ug/mL: Susceptible Escherichia coli Ampicillin Sulbactam VITEK SUSCEPTIBI LITY 4 ug/mL: Susceptible Escherichia coli Cefazolin VITEK SUSCEPTIBILITY <=4 ug/mL: Susceptible Escherichia coli Cefepime VITEK SUSCEPTIBILITY <=1 ug/mL: Susceptible Escherichia coli Ceftriaxone VITEK SUSCEPTIBILITY <=1 ug/mL: Susceptible Escherichia coli Ciprofloxacin VITEK SUSCEPTIBILITY <=0.25 ug/mL: Susceptible Escherichia coli Ertapenem VITEK SUSCEPTIBILITY <=0.5 ug/mL: Susceptible Escherichia coli Gentamicin VITEK SUSCEPTIBILITY <=1 ug/mL: Susceptible Escherichia coli Levofloxacin VITEK SUSCEPTIBILITY <=0.12 ug/mL: Susceptible Escherichia coli Nitrofurantoin VITEK SUSCEPTIBILITY <=16 ug/mL: Susceptible Escherichia coli Piperacillin Tazobactam VITEK SUSCEPT IBILITY <=4 ug/mL: Susceptible Escherichia coli Tobramycin VITEK SUSCEPTIBILITY <=1 ug/mL: Susceptible Escherichia coli Trimethoprim-Sulfame thox azole VITEK SUSCEPTIBILITY <=20 ug/mL: Susceptible us John Martinez MD MICROBIOLOGY - GENERAL ORDER JENISE Final Result [facility] [address] [place] [address] * (ABNORMAL) POCT URINALYSIS (01/07/2022 13:48 EDT) Color, UA Yellow [facility] POIN T OF CARE Clarity, UA Clear [facility] PO INT OF CARE Glucose, UA Negative . mg/dL [facility] PO INT OF CARE Bilirubin, UA Negative Negative [facility] POINT OF CARE Ketones, UA Negative . mg/dL [facility] PO INT OF CARE Spec Grav, UA 1.020 1.005 - 1.030 [facility] POINT OF CARE Blood, UA Trace(A) Negative [facility] POIN T [facility] pH, UA 7.5 4.6 - 8.0 [facility] POIN T OF CARE Protein, UA Negative . mg/dL [facility] PO INT OF CARE Urobilinogen, UA 0.2 0.2 - 1.0 E.U./dL [facility] POINT OF CARE Nitrite, UA Negative . [facility] PO INT OF CARE Leuk Esterase Negative Negative [facility] POINT OF CARE Comment [facility] POIN T OF CARE Urine URINE SPECIMEN COLLECTION, CLEAN CATCH / Unknown 01/07/2022 13:48 EDT us John Martinez MD POINT OF CARE TEST ORDERABLE S Final Result [facility] POINT OF CARE documented in this encounter Visit Diagnoses Diagnosis Frequent UTI- Primary Urinary tract infection, site not specified Chronic interstitial cystitis documented in this encounter Orders Medications Ordered That Yeison ht Not Have Been Administered Count Last Ordered Date First Ordered Date heparin 20,000 Units, methyl PREDNISolone sod suc(PF) (SOLU-MEDROL) 125 mg, sodium bicarbonate 8.4 % 5 mL, lidocaine 20 mg/mL (2 %) 10 mL, sterile water (PF) 26 mL bladder irrigation 1 01/05/2022 documented in this encounter Care Teams Film Technician Relationship Specialty Start Date End Date Campos Lopes MD [address] [place] [address] PCP - General 05/21/09 documented as of this encounter
--- OUTSIDE RECORDS SUMMARY | 2024-10-09 11:21 | XMS_ITS | Encounter Summary ---
Author Organization [facility] Address [address] [place] [address] Care Team Providers Care Mule Packer Name Role Phone Campos Lopes MD Primary Care Provider [phone] Reason for Referral * Consult (Routine) - Denied Specialty Diagnoses / Procedures [facility] Referred To Contact General Surgery Diagnoses RUQ pain Alan Milton MD Phone: tel: fax: Ed Morin MD Phone: tel: fax: Referral ID Status Reason Start Date Expiration Date V isits Requested Visits Authorized [id number] Denied Specialty Services Required 02/26/2021 1 0 Question Answer Reason for Request: RUQ pain. Evaluate for gallbladder disease. Comments Patient lives in the [place] area. Testing may have been started in [place]. Reason for Visit * Reason Onset Date Comments Other 02/26/2021 Encounter Details Date Type Department Care Team (Late st Contact Info) Description 02/26/2021 Telephone [facility] Gastroenterology - [facility] [address] [place] [address] Alan Milton MD [address] [facility], [facility], [address] [place] [address] Other Social History Tobacco Use [...] 8:54 EDT Sexual Orientation Not on file COVID-19 Exposure Response Date Recorded In the last month, have you been in contact with someone who was confirmed or suspected to have Coronavirus / COVID-19? No / Unsure 02/24/2021 12:50 EDT documented as of this encounter Functional Status [...] Miscellaneous Notes * Telephone Encounter - Juliane Hanks RN - 02/26/2021 1253 EDT Referral placed. Patient is aware. She will await a call to schedule this appointment. documented in this encounter Plan of Treatment Upcoming Encounters Date Type Department Care Team (Late st Contact Info) Description 10/17/2024 10:20 EST Telemedicine [facility] Endocrinology - [facility] [address] [place] [address] Ariela Woods MD 62 [facility] [address] [place] [phone] 10/18/2024 9:15 EST Telemedicine [facility] PHARMACY INFORMATICS SPECIALIST Pelvic Medicine and Reconstructive Surgery - Medical Office Building [facility] [address] [place] [address] Kelsy Fierro MD [address] [place] [address] Medical Office Building, [address] [place] [phone] Scheduled Referrals Name Type Priority Associated Diagnoses Orde r Schedule AMB CONS/FOLLOW UP GENERAL SURGERY/COLORECTAL SURGERY Outpatient Referral Routine RUQ pain Ordered: 02/26/2021 documented as of this encounter Visit Diagnoses Diagnosis RUQ pain- Primary Abdominal pain, right upper quadrant documented in this encounter Care Teams Mule Packer Relationship Specialty Start Date End Date Campos Lopes MD [address] [place] [address] PCP - General 05/21/09 documented as of this encounter
--- OUTSIDE RECORDS SUMMARY | 2024-10-09 11:21 | XMS_ITS | Encounter Summary ---
Author Organization [facility] Address [address] [place] [address] Care Team Providers Care Ear Machine Operator Name Role Phone Campos Lopes MD Primary Care Provider [phone] Reason for Visit * Reason Comments New Patient Visit interstitial cystiti s Encounter Details Date Type Department Care Team ([facility] Contact Info) Description 10/22/2021 13:00 EST Office Visit [facility] Urology Clinic [address] [place] [address] John Martinez MD 130 [facility] [address] [place] [address] Chronic interstitial cystitis (Primary Dx) [...] Progress Notes * John Martinez MD - 10/22/2021 1300 EST 10/22/2021 NEW PATIENT CHIEF COMPLAINT New Patient Visit (interstitial cystitis ) PATIENT: Maureen Thomas HISTORY OF PRESENT ILLNESS Maureen Thomas is a very pleasant 81 y.o. female who presents with chronic IC. Pt was diagnosed ~12 years ago w/ IC by at [facility], since left the practice. Pt presents with worsening of baseline symptoms. Complains of an ongoing sense of urgency, need to void and ongoing pelvic and pelvic floorpressure. Pt has been on Tovaiz which she uses PRN for bladder spasm, hasn't found it recently helpful and discontinued it's use. No identifiable exacerbating factors; not relieved by heat, NSAIDS orpyridium. feels like someone took a scraper to [...] 10/22/2021 ??? COPD (chronic obstructive pulmonary disease) ([facility] ([facility]) well controlled with inhalers per pt 02/17/2021 [...] HFA aerosol inhaler BEVESPI AEROSPHERE9-4.8 MCG/ACT AERO ??? ibuprofen (MOTRIN) 200 mg tablet Take 4 Tabs by mouth every 8 hours as needed for Pain. ??? ipratropium-albuteroL (DUONEB) 0.5 mg-3 mg(2.5 mg base)/3 mL nebulizer solution IPRATROPIUM-ALBUTEROL 0.5-2.5 (3) MG/3ML SOLN (Patient not taking: Reported on 10/22/2021) ??? levOFLOXacin (LEVAQUIN) 500 mg tablet LEVOFLOXACIN 500 MG TABS (Patient not taking: Reported on10/22/2021) ??? lidocaine (XYLOCAINE) 2 % jelly lidocaine [...] Take by mouth. (Patient not taking: Reported on 10/22/2021) ??? TOVIAZ 4 mg ER tablet No current facility-administered medications for this visit. ALLERGIES Allergies Allergen Reactions ??? Dye Anaphylaxis IVP DYE ??? Nitrofurantoin Other (See Comments) ??? Trimethoprim Rash ??? Losartan Other reaction(s): itchiness and redness of eyes ??? Mirabegron Other (See Comments) ??? Amitriptyline PAINT BRUSH MAKER changes at low dose ??? Ciprofloxacin Other [...] failures, rec consult w/ Dr. Martel at [facility] -given symptoms, interested in diagnostic cysto, r/o alternate pathology. That will be scheduled herminia done here in the coming days. PLAN Other Orders Placed This Visit Procedures ??? Amb Consult/Follow Up Urology John Martinez MD Electronicaly signed by: John Martinez MD documented in this encounter Plan of Treatment Upcoming Encounters Date Type Department Care Team (Late st Contact Info) Description 10/17/2024 10:20 EST Telemedicine [facility] Endocrinology - [facility] [address] [place], [place] [phone] Ariela Woods MD 62 [facility] [place] [facility] [address] [place] [phone] 10/18/2024 9:15 EST Telemedicine [facility] SHOE REPAIRER HELPER Pelvic Medicine and Reconstructive Surgery - Medical Office Building [address] [phone] Kelsy Fierro MD 2 [facility] Office [facility], [address] [phone] documented as of this encounter Visit Diagnoses Diagnosis Chronic interstitial cystitis- Primary documented in this encounter Historical Medications * This list may reflect changes made after this encounter. ipratropium-albu teroL (DUONEB) 0.5 mg-3 mg(2.5 mg base)/3 mL nebulizer solution IPRATROPIUM-ALBUTE ROL 0.5-2.5 (3) MG/3ML SOLN 09/18/2020 glycopyrrolate-f ormoteroL (BEVESPI AEROSPHERE) 9-4.8 mcg HFA aerosol inhaler BEVESPI AEROSPHERE 9-4.8 MCG/ACT AERO 09/09/2020 tolterodine (DETROL LA) 4 mg long acting capsule Take by mouth. 3 nitrofurantoin, macrocrystal-mon ohydrate, (MACROBID) 100 mg capsule 1 Capsule every 12 hours. 07/07/2020 2 methylPREDNISolo ne (MEDROL) 4 mg tablet MEDROL 4 MG TABS 07/08/2020 01/27/20 2 3 lidocaine (XYLOCAINE) 2 % jelly lidocaine HCl 2 % mucosal jelly 06/19/2021 3 levOFLOXacin (LEVAQUIN) 500 mg tablet LEVOFLOXACIN 500 MG TABS 04/30/2021 2 gabapentin (NEURONTIN) 100 mg capsule 1 Capsule every 8 hours. 11/03/2020 4 doxycycline (VIBRA-TABS) 100 mg tablet every 12 hours. 3 QUICKVUE AT-HOME COVID-19 TEST kit Use as directed. 10/07/2021 01/27/20 2 3 amoxicillin (AMOXIL) 875 mg tablet AMOXICILLIN 875 MG TABS 09/21/2021 2 added in this encounter Care Teams Ear Machine Operator Relationship Specialty Start Date End Date Campos Lopes MD [address] [place] [address] PCP - General 05/21/09 documented as of this encounter
--- OUTSIDE RECORDS SUMMARY | 2024-10-09 11:21 | XMS_ITS | Encounter Summary ---
Author Organization [facility] Address [address] [place] [address] Care Team Providers Care Dental Billing Specialist Name Role Phone Campos Lopes MD Primary Care Provider [phone] Reason for Visit * (Routine/Next Available) - Receiving Office to Obtain Authorization Specialty Diagnoses / Procedures Referred By Lynnette osman Referred To Contact Procedures US OUTSIDE IMAGES BODY Unknown, Provider, MD Referral ID Status Reason Start Date Expiration Date Visits Requested Visits Authorized [id number] Receiving Office to Obtain Authorization 01/13/2023 1 1 Encounter Details Date Type Department Care Team (Latest Contact Info) Description 06/18/2022 - 06/18/2022 23:59 EDT Hospital Encounter [facility] Secondary Reads [place] Discharge Disposition: Home or [...] [facility] Endocrinology - [address] [address] Ariela Woods MD [address] [place] [phone] 10/18/2024 9:15 EST [facility] INPATIENT SERVICES DIRECTOR Pelvic Medicine and Reconstructive Surgery - Medical Office [facility] [address] [place] [phone] Kelsy Fierro MD [address] [place] [address] Medical Office [facility], [address] [phone] documented as of this encounter Procedures Procedure Name Priority Date/Time Associated Diagnosis Comments US OUTSIDE IMAGES BODY Routine 06/18/2022 14:36 EDT documented in this encounter Results * US OUTSIDE IMAGES BODY (06/18/2022 14:36 EDT) Narrative 01/13/2023 14:37 EDT This is a non-reportable exam. us Provider Unknown MD SAINI OTHER IMAGING ORDERABLES Final Result documented in this encounter Visit Diagnoses Not on filedocumented in this encounter Care Teams Dental Billing Specialist Relationship Specialty Start Date End Date Campos Lopes MD [address] [place] [address] PCP - General 05/21/09 documented as of this encounter
--- OUTSIDE RECORDS SUMMARY | 2024-10-09 11:21 | XMS_ITS | Encounter Summary ---
Author Organization [facility] Address [address] [place] [address] Care Team Providers Care Worldwide Chief Creative Officer Name Role Phone Campos Lopes MD Primary Care Provider [phone] Reason for Visit * Reason Comments Follow-up Encounter Details Date Type Department Care Team (Latest Contact Info) Description 11/30/2021 13:30 EST Procedure visit [facility] Urology Clinic [address] [place] [address] John Martinez MD 130 [facility] [address] [place] [address] Recurrent UTI (Primary Dx) Social History Tobacco Use Types [...] Refills Last Filled Start Date End Date cephalexin (KEFLEX) 500 mg capsule Take 1 capsule by mouth daily. 30 capsule 5 11/30/2021 3 documented in this encounter Progress Notes * John Martinez MD - 11/30/2021 1330 EST Reason for Cystoscopy: Check for abnormalities November 30, 2021/13:35 Patient: Maureen Thomas Scope #: [id number] Has this been documented in the log: [...] and the genitalia prepped in sterile fashion. Thecystoscope was navigated through the urethra and into bladder without difficulty. Circumferential panendoscopy revealed no foreign bodies, stones or mucosal abnormalities. Both ureteral orifices werein the expected position effluxing clear urine. The scope was retroflexed and no abnormalities wereseen at the bladder neck. The scope was slowly removed and no urethral abnormalities were seen. Thepatient tolerated the procedure well. Negative cysto excepting [...] Contact Info) Description 10/17/2024 10:20 EST Telemedicine [facility] Endocrinology - [facility] [address] [place] [address] Ariela Woods MD 62 [facility] [address] [place] [phone] 10/18/2024 9:15 EST Telemedicine [facility] EMAIL MARKETING SPECIALIST Pelvic Medicine and Reconstructive Surgery - Medical Office Building [facility] [address] [place] [phone] Kelsy Fierro MD 2 [facility] Medical Office [facility], [address] [phone] documented as of this encounter Procedures Procedure Name Priority Date/Time Associated Diagnosis Comments BACTERIAL CULTURE, URINE Routine 11/30/2021 13:47 EST Recurrent UTI documented in this encounter Results * BACTERIAL CULTURE, URINE (11/30/2021 13:47 EST) Organism ID 10, 000 to 100,000 CFU/ml VITEK SUSCEPTIBILITY 12/02/2021 10:18 EST [facility] Comment:Usual urogenital izzy ra.. Urine URINE SPECIMEN COLLECTION, CLEAN CATCH / Unknown Urine Collect / Unknown 11/30/2021 13:47 EST 11/30/2021 13:47 EST us John Martinez MD MICROBIOLOGY - GENERAL ORDER JENISE Final Result [facility] [address] [place] [address] documented in this encounter Visit Diagnoses Diagnosis Recurrent UTI- Primary Urinary tract infection, site not specified documented in this encounter Discontinued Medications Medication Sig Discontinue Reason Start Date End Da te cephalexin (KEFLEX) 500 mg capsule TAKE 1 CAPSULE BY MOUTH THREE TIMES DAILY 09/11/2021 11/30/2021 amoxicillin (AMOXIL) 875 mg tablet AMOXICILLIN 875 MG TABS 09/21/2021 11/30/19 nitrofurantoin, macrocrystal-monohydr ate, (MACROBID) 100 mg capsule 1 Capsule every 12 hours. 07/07/2020 11/30/2021 levOFLOXacin (LEVAQUIN) 500 mg tablet LEVOFLOXACIN 500 MG TABS 04/30/2021 11/30/2021 documented as of this encounter Historical Medications * This list may reflect changes made after this encounter. atenoloL (TENORMIN) 25 mg tablet Take 1 Tablet by mouth daily. 10/19/2021 ipratropium (ATROVENT) 42 mcg (0.06 %) nasal spray USE 2 SPRAYS IN EACH NOSTRIL THREE TIMES DAILY FOR 5 DAYS 11/23/2021 added in this encounter Orders Medications Ordered That Yeison ht Not Have Been Administered Count Last Ordered Date First Ordered Date heparin 20,000 Units, methyl PREDNISolone sod suc(PF) (SOLU-MEDROL) 125 mg, sodium bicarbonate 8.4 % 5 mL, lidocaine 20 mg/mL (2 %) 10 mL, sterile water (PF) 26 mL bladder irrigation 1 11/26/2021 documented in this encounter Care Teams Worldwide Chief Creative Officer Relationship Specialty Start Date End Date Campos Lopes MD [address] [place] [address] PCP - General 05/21/09 documented as of this encounter
--- OUTSIDE RECORDS SUMMARY | 2024-10-09 11:21 | XMS_ITS | Encounter Summary ---
Author Organization [facility] Address [address] [place] [address] Care Team Providers Care Alumni Relations Coordinator Name Role Phone Campos Lopes MD Primary Care Provider Encounter Details Date Type Department Care Team (Late st Contact Info) Description 02/24/2021 14:30 EDT Anesthesia Event [facility] Endoscopy - [facility] [address] [place], [place] [address] Negar Plascencia MD 111 [facility], Level 2 [place] [phone] Harlan Estes MD [address] [place] [address] Anesthesia Record Procedure Summary Procedure Name Responsible Anesthesiologist Anesthesia Start Time Anesthesia Stop Time ENDOSCOPIC US REQUEST Negar Plascencia MD 02/24/21 1430 02/24/21 1457 Events Date Time Event Comment 02/24/2021 1430 An Start The patient was re-evaluated immediately before moderate or deep sedation use, before anesthesia induction, or before the anesthesia procedure. 1430 An Start Data 1431 Anesthesia Ready 1447 an stop data 1456 Handoff to RN I completed my handoff to the receiving nurse during which we: 1. Identified the patient 2. Identified the responsible provider 3. Reviewed the pertinent medical history 4. Discussed the surgical course 5. Reviewed intra-op anesthesia management and issues during anesthesia 6. Set expectations for post-procedure period 7. Allowed opportunity for questions and acknowledgement of understanding. 1457 An Stop Meds Name Total glycopyrrolate pre-filled syringe 0.2 mg ketAMINE 5 mL prefilled syringe 10 mg lidocaine 2% (PF) injection glass vial 5 0 mg propOFol (DIPRIVAN) injection 100 mg propofol (DIPRIVAN) 500 mg in 50 mL infu kevin 136,568 mcg lactated ringers (LR) infusion Cannot be calculated labetalol pre-filled syringe 10 mL 15 mg * Agents Name Aux O2 flow * Blood No blood administrations on file. Lines, Drains, and Airways Type Details Placement Removal Peripheral IV 02/24/21; 1405; 20; 1.25; B Restrepo Introcan; Posterior, Right; Hand; Inserted by RN; 2; None; 3.15% Chlorhexidine with IPA; 02/24/21; 1527; Therapy completed; No complications 02/24/21 1405 by Ariela Hernandez RN 02/24/21 1527 by Myra Fuller RN documented in this encounter Social History Tobacco [...] 07/11/2017 9:19 EDT documented in this encounter OR Notes * Anesthesia Postprocedure Evaluation - Harlan Estes MD - 02/24/2021 2947 EDT Patient: Maureen Thomas Vital signs were reviewed with the recovery nurse. [facility] Last Pain Score - Numeric Pain Level [...] outpatient/home Anesthesia Complications: No apparent anesthesia complications * Anesthesia Preprocedure Evaluation - Harlan Estes MD - 02/24/2021 1354 EDT Anesthesia Preprocedure Evaluation Patient Medical History, [...] 02/17/2021 ??? COPD (chronic obstructive pulmonary disease) ([facility] well controlled [...] changes are documented inthis note PAT Note (Notes from 01/25/21 through 02/24/21) No notes of this type exist for this encounter. Cosigned by Negar Plascencia MD at 02/24/2021 17:48 EDT documented in this encounter Plan of Treatment Upcoming Encounters Date Type Department Care Team (Late st Contact Info) Description 10/17/2024 10:20 EST Telemedicine [facility] Endocrinology - [place] [address] [place] [address] Ariela Woods MD 62 [facility] [address] [place] [phone] 10/18/2024 9:15 EST Telemedicine [facility] PERSONNEL TRAINING OFFICER Pelvic Medicine and Reconstructive Surgery - Medical Office Building [facility] [address] [place] [phone] Kelsy Fierro MD [address] [place] [address], [address] [phone] documented as of this encounter Visit Diagnoses Not on filedocumented in this encounter Administered Medications Inactive Administered Medications - up to 3 most recent administrations Medication Order MAR Action Action Date Dose Rate Site glycopyrrolate (PF) (ROBINUL) 0.4 mg/2 mL (0.2 mg/mL) injection PRN, Starting on Tue02/24/21 at 1431, Until Tue02/24/21 at 1457, Routine, Anesthesia Intraprocedure Given 02/24/2021 14:31 EDT 0.2 mg ketAMINE in NaCl, iso-osmotic (KETALAR) 50 mg/5 mL (10 mg/mL) IV injection PRN, Starting on Tue02/24/21 at 1433, Until Tue02/24/21 at 1457, Routine, Anesthesia Intraprocedure Given 02/24/2021 14:33 EDT 10 mg labetalol (TRANDATE) injection PRN, Starting on Tue02/24/21 at 1438, Until Tue02/24/21 at 1457, Routine, Anesthesia Intraprocedure Given 02/24/2021 14:41 EDT 10 mg Given 02/24/2021 14:38 EDT 5 mg lactated ringers (LR) infusion intravenous, FA IP EQF CONTINUOUS PRN FOR ONE STEP MEDS, Starting on Tue02/24/21 at 1430, Until Tue02/24/21 at 1457, Routine, Anesthesia Intraprocedure New Bag 02/24/2021 14:30 EDT lidocaine (PF) 20 mg/mL (2 %) injection PRN, Starting on Tue02/24/21 at 1432, Until Tue02/24/21 at 1457, Routine, Anesthesia Intraprocedure Given 02/24/2021 14:32 EDT 50 mg propOFol (DIPRIVAN) 500 mg in 50 mL infusion FA IP EQF CONTINUOUS PRN FOR ONE STEP MEDS, Starting on Tue02/24/21 at 1430, Until Tue02/24/21 at 1457, Routine, Anesthesia Intraprocedure Rate Change 02/24/2021 14:42 EDT 120 mcg/kg/min 57.2 mL/hr Rate Change 02/24/2021 14:37 EDT 100 mcg/kg/min 47.6 mL/hr New Bag 02/24/2021 14:30 EDT 140 mcg/kg/min 66.7 mL/hr propOFol (DIPRIVAN) injection PRN, Starting on Tue02/24/21 at 1432, Until Tue02/24/21 at 1457, Routine, Anesthesia Intraprocedure Given 02/24/2021 14:34 EDT 50 mg Given 02/24/2021 14:32 EDT 50 mg documented in this encounter Care Teams Alumni Relations Coordinator Relationship Specialty Start Date End Date Campos Lopes MD [address] [place] [address] PCP - General 05/21/09 documented as of this encounter
--- OUTSIDE RECORDS SUMMARY | 2024-10-09 11:21 | XMS_ITS | Encounter Summary ---
Author Organization [facility] Address [address] [place] [address] Care Team Providers Care Infection Control Nurse Name Role Phone Campos Lopes MD Primary Care Provider Reason for Visit * Reason Comments Follow-up Cataracts Encounter Details Date Type Department Care Team (Late Contact Info) Description 11/26/2021 14:15 EST Office Visit [facility] Ophthalmology [facility] [address] [place] [address] Brenden Means MD [address] [place] [phone] Social History Tobacco Use Types Packs/Day Years [...] Progress Notes * Brenden Means MD - 11/26/2021 9245 EST Chief Complaint Patient presents with ??? Follow-up Cataracts HPI The patient is a 81 y.o. female here for follow up of cataracts. She reports that her vision has not changed significantly. she has no eye pain, double [...] Thyroid problems Hematologic: NL Immunologic: Drug Allergy Radiology Therapist: Exposures: None Other: Attestation: Base Eye Exam [...] Normal Refraction Manifest Refraction (Auto) Sphere Cylinder [place] Dist VA Add Near VA Right +1.75 +1.00 180 Left +1.00 +1.25 170 Manifest Refraction #2 Sphere Cylinder [place] Dist VA Add Near VA Right +1.75 +0.75 180 20/25 +2.50 J1+ Left +0.75 +1.25 005 20/25 +2.50 J1+ Final Rx Sphere Cylinder [place] Right +4.25 +0.75 180 Left +3.25 +1.25 [...] my own HPI and have reviewed the [facility]'s ROS as well. I completed this [...] Telemedicine [facility] Endocrinology - [address] [address] Ariela Woods MD [address] [place] [address] [address] [place] [address] 10/18/2024 9:15 EST Telemedicine [facility] PRINT COLOR OPERATOR Pelvic Medicine and Reconstructive Surgery - Medical Office [facility] [address] [place] [address] Kelsy Fierro MD [address] 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 Combined form of senile cataract of left eye Posterior vitreous detachment of right eye Vitreous degeneration Refractive error Unspecified disorder of refraction and accommodation documented [...] Yes Mood/Affect: Normal Dilation Both eyes: Phenylephrine 2.5 %, Tropicamide 1% @ 14:29 External Exam Right eye Left eye External Normal Normal Slit Lamp Exam Right eye Left eye Lids/Lashes Normal Normal Conjunctiva/Sclera White and quiet White and adele et Cornea Mild ABMD changes Mild ABMD nixon ges Anterior Chamber Deep and quiet Deep and quiet Iris Round and reactive Round and maria luisa ctive Lens 2+ Nuclear sclerosis , Trace Cortical cataract, Vacuoles 2+ Nuclear sclerosis, 1+ Cortical cataract, Trace Posterior subcapsular cataract Vitreous Posterior vitreous detachment No rmal Fundus Exam Right eye Left eye Disc Normal Normal C/D Ratio 0.35 0.35 Macula Normal Few drusen Vessels Normal Normal Periphery Normal Normal Manifest Refraction #1 (Auto) Sphere Cylinder [place] Dist VA Add Near VA Right eye +1.75 +1.00 180 Left eye +1.00 +1.25 170 Manifest Refraction #2 Sphere Cylinder [place] Dist VA Add Near VA Right eye +1.75 +0.75 180 20/25 +2.50 J1+ Left eye +0.75 +1.25 005 20/25 +2.50 J1+ Final Rx Sphere Cylinder [place] Right eye +4.25 +0.75 180 Left eye +3.25 +1.25 005 Type: READING GLASSES Expiration Date: 11/27/2023 Care Teams Infection Control Nurse Relationship Specialty Start Date End Date Campos Lopes MD [address] [place] [address] PCP - General 05/21/09 documented as of this encounter
--- OUTSIDE RECORDS SUMMARY | 2024-10-09 11:21 | XMS_ITS | Encounter Summary ---
Author Organization [facility] Address [address] [place] [address] Care Team Providers Care Photograph Enlarger Name Role Phone Campos Lopes MD Primary Care Provider [phone] Encounter Details Date Type Department Care Team (Latest Contact Info) Description 02/24/2021 Travel Social History Tobacco Use [...] Contact Info) Description 10/17/2024 10:20 EST Telemedicine [facility] End[facility]ology - [facility] [address] [place] [address] Ariela Woods MD 62 [facility] [address] [place] [phone] 10/18/2024 9:15 EST Telemedicine [facility] ELECTRONIC LAB TECHNICIAN Pelvic Medicine and Reconstructive Surgery - Medical Office Building [facility] [address] [place] [phone] Kelsy Fierro MD [address] [place] [address] Medical Office [facility], [address] [place] [phone] documented as of this encounter Visit Diagnoses Not on filedocumented in this encounter Care Teams Photograph Enlarger Relationship Specialty Start Date End Date Campos Lopes MD [address] [place] [address] PCP - General 05/21/09 documented as of this encounter
--- OUTSIDE RECORDS SUMMARY | 2024-10-09 11:21 | XMS_ITS | Encounter Summary ---
Author Organization [facility] Address [address] [place] [address] Care Team Providers Care Plant Controller Name Role Phone Campos Lopes MD Primary Care Provider [phone] Reason for Visit * Reason Onset Date Comments Appointment Related 08/07/2021Aug 1rst venkat ointment Encounter Details Date Type Department Care Team ([facility] Contact Info) Description 08/07/2021 Telephone [facility] General Surgery - [facility] [address] [place] [address] Ed Morin MD [address] [place] [address], [address] [place] [address] Appointment Related (Aug 1rst appointment) Social History Tobacco Use Types Packs/Day Years [...] encounter Miscellaneous Notes * Telephone Encounter - Stefania Dooley - 08/07/2021 [...] Description 10/17/2024 10:20 EST Telemedicine [facility] Endocrinology - [address] [address] Ariela Woods MD [address] [phone] 10/18/2024 9:15 EST Telemedicine [facility] KEYMODULE ASSEMBLY MACHINE TENDER Pelvic Medicine and Reconstructive Surgery - Medical Office [address] [phone] Kelsy Fierro MD [address] [place] [address], [address] [phone] documented as of this encounter Visit Diagnoses Not on filedocumented in this encounter Care Teams Plant Controller Relationship Specialty Start Date End Date Campos Lopes MD [address] [place] [address] PCP - General 05/21/09 documented as of this encounter
--- OUTSIDE RECORDS SUMMARY | 2024-10-09 11:21 | XMS_ITS | Encounter Summary ---
Author Organization [facility] Address [address] [place] [address] Care Team Providers Care Greens Planter Name Role Phone Campos Lopes MD Primary Care Provider [phone] Reason for Visit * (Routine/Next Available) - Receiving Office to Obtain Authorization Specialty Diagnoses / Procedures Referred By Lynnette osman Referred To Contact Procedures MR OUTSIDE IMAGES ABDOMEN Unknown, Provider, MD Referral ID Status Reason Start Date Expiration Date Visits Requested Visits Authorized [id number] Receiving Office to Obtain Authorization 01/13/2023 1 1 Encounter Details Date Type Department Care Team (Latest Contact Info) Description 08/18/2022 - 08/18/2022 23:59 EST Hospital Encounter [facility] Secondary Reads [place] Discharge Disposition: Home [...] Info) Description 10/17/2024 10:[address] [facility] Endocrinology - [address] [address] Ariela Woods MD [address] [place] [phone] 10/18/2024 9:[address] [facility] TIMERS INSPECTOR Pelvic Medicine and Reconstructive Surgery - Medical Office [address] [phone] Kelsy Fierro MD [address] [place] [address] Medical Office [facility], [address] [phone] documented as of this encounter Procedures Procedure Name Priority Date/Time Associated Diagnosis Comments MR OUTSIDE IMAGES ABDOMEN Routine 08/18/2022 14:37 EST documented in this encounter Results * MR OUTSIDE IMAGES ABDOMEN (08/18/2022 14:37 EST) Narrative 01/13/2023 14:37 EDT This is a non-reportable exam. us Provider Unknown MD SAINI OTHER IMAGING ORDERABLES Final Result documented in this encounter Visit Diagnoses Not on filedocumented in this encounter Care Teams Greens Planter Relationship Specialty Start Date End Date Campos Lopes MD [address] [place] [address] PCP - General 05/21/09 documented as of this encounter
--- OUTSIDE RECORDS SUMMARY | 2024-10-09 11:21 | XMS_ITS | Encounter Summary ---
Author Organization [facility] Address [address] [place] [address] Care Team Providers Care Kennel Supervisor Name Role Phone Campos Lopes MD Primary Care Provider [phone] Encounter Details Date Type Department Care Team (Late Contact Info) Description 01/11/[address] [facility] [address] [phone] John Martinez MD 130 [facility] [address] [place] [address] Social History Tobacco Use Types [...] Refills Last Filled Start Date End Date cefuroxime (CEFTIN) 500 mg tablet Take 1 Tablet by mouth 2 times daily for 10 days. 20 Tablet 01/11/2022 01/21/2022 documented in this encounter Plan of Treatment Upcoming Encounters Date Type Department Care Team (Late st Contact Info) Description 10/17/2024 10:20 EST Telemedicine [facility] Endocrinology - [facility] [address] [place] [address] Ariela Woods MD 62 [facility] [address] [place] [phone] 10/18/2024 9:15 EST Telemedicine [facility] TONE ARTIST APPRENTICE Pelvic Medicine and Reconstructive Surgery - Medical Office [facility] [address] [place] [phone] Kelsy Fierro MD [address] [place] [address] Medical Office [facility], [address] [place] [phone] documented as of this encounter Visit Diagnoses Not on filedocumented in this encounter Care Teams Kennel Supervisor Relationship Specialty Start Date End Date Campos Lopes MD [address] [place] [address] PCP - General 05/21/09 documented as of this encounter
--- OUTSIDE RECORDS SUMMARY | 2024-10-09 11:21 | XMS_ITS | Encounter Summary ---
Author Organization [facility] Address [address] [place] [address] Care Team Providers Care Drive In Waiter/Waitress Name Role Phone Campos Lopes MD Primary Care Provider [phone] Encounter Details Date Type Department Care Team (Late Contact Info) Description 07/30/2021 Lab Requisition [facility] Pathology & Laboratory Medicine - [facility] [address] [place] [address] Outr Resulting Lab, Provider Social History Tobacco [...] EST Telemedicine [facility] Endocrinology - [facility] [address] [place] [address] Ariela Woods MD 62 [facility] [address] [place] [phone] 10/18/2024 9:15 EST Telemedicine [facility] HARNESS CLEANER Pelvic Medicine and Reconstructive Surgery - Medical Office Building [facility] [address] [place] [address] Kelsy Fierro MD [address] [place] [address] Medical Office [facility], [address] [place] [phone] documented as of this encounter Procedures Procedure Name Priority Date/Time Associated Diagnosis Comments T3, TOTAL Routine 07/29/2021 11:25 EDT documented in this encounter Results * (ABNORMAL) T3, TOTAL (07/29/2021 11:25 EDT) T3, Total 223(H) 97 - 169 ng/dL 07/30/2021 17:55 EDT [facility] Blood VENOUS BLOOD / Unknown 07/29/2021 11:25 EDT 07/30/2021 16:56 EDT us Provider Outr Resulting Lab CHEMISTRY & BLOOD GA S ORDERABLES Final Result [facility] [address] [place] [address] documented in this encounter Visit Diagnoses Not on filedocumented in this encounter Care Teams Drive In Waiter/Waitress Relationship Specialty Start Date End Date Campos Lopes MD [address] [place], [place] [phone] PCP - General 05/21/09 documented as of this encounter
--- OUTSIDE RECORDS SUMMARY | 2024-10-09 11:21 | XMS_ITS | Encounter Summary ---
Author Organization [facility] Address [address] [place] [address] Care Team Providers Care Nut Sorter Name Role Phone Campos Lopes MD Primary Care Provider [phone] Reason for Visit * Reason Onset Date Comments Medications Refill 01/20/2022 Encounter Details Date Type Department Care Team (Late Contact Info) Description 01/20/2022 Telephone Health system - [facility] Endocrinology [address] [place] [address] John Martinez MD 130 [facility] [address] [place] [phone] Medications Refill Social History Tobacco Use Types [...] encounter Miscellaneous Notes * Telephone Encounter - Ilya Ferro MA - 01/21/2022 1538 EDT PA was denied, pt aware. * Telephone Encounter - Lauren Givens - 01/20/2022 0925 EDT Patient needs lidvernellne stevenson called to [facility] [place] . Please let patient know when done. Says she has been trying to get this for awhile now and wants to hear from someone here please documented in this encounter Plan of Treatment Upcoming Encounters Date Type Department Care Team (Late st Contact Info) Description 10/17/2024 10:20 EST Telemedicine [facility] Endocrinology - [address] [phone] Ariela Woods MD [address] [place] [address] [place] [phone] 10/18/2024 9:15 EST Telemedicine [facility] PATTERN CLEANER Pelvic Medicine and Reconstructive Surgery - Medical Office Building [facility] [address] [place] [phone] Kelsy Fierro MD 2 [facility] Office [facility], [address] [phone] documented as of this encounter Visit Diagnoses Not on filedocumented in this encounter Care Teams Nut Sorter Relationship Specialty Start Date End Date Campos Lopes MD [address] [place] [address] PCP - General 05/21/09 documented as of this encounter
--- OUTSIDE RECORDS SUMMARY | 2024-10-09 11:21 | XMS_ITS | Encounter Summary ---
Author Organization [facility] Address [address] [place] [address] Care Team Providers Care Welding Machine Operator Resistance Name Role Phone Campos Lopes MD Primary Care Provider Reason for Visit * Test (Routine) - Closed Specialty Diagnoses / Procedures Referred By Contact Referred To Contact Gastroenterology and Hepatology Procedures ENDOSCOPIC ULTRASOUND (EUS) Sammi Harp MD Phone: tel: fax: Alan Milton MD Phone: tel:[phone] Referral ID Status Reason Start Date Expiration Date Visits Re quested Visits Authorized [id number] Closed 1 1 Encounter Details Date Type Department Care Team (Late st Contact Info) Description 02/24/2021 12:53 EDT - 02/24/2021 23:59 EDT Hospital Encounter [facility] Endoscopy - [address] [address] Alan Milton MD [address] [place] [address], [facility] 5 [place] [address] Yoan AnesthesiNegar Ortiz MD 111 [facility] 2 [place] [address] Discharge Disposition: Home or Self [...] 12:50 EDT documented as of this encounter Last Filed [...] 8 hours as needed for Pain. 3 magnesium oxide (MAG-OX) 400 mg tablet [...] Code Departure Means Destination Home or Self Senior Living documented in this encounter H&P Notes * Alan Milton MD - 02/24/2021 1400 EDT Endoscopy Sedation for Procedure History & Physical Date: 02/24/2021 Time: 14:21 Location: [facility] Endoscopy - [facility] Planned Procedure: Endoscopic Ultrasound request Chief Complaint/Indications [...] 02/17/2021 ??? COPD (chronic obstructive pulmonary disease) ([facility]) well controlled with inhalers per [...] Laterality Date ??? CARPAL TUNNEL RELEASE Right 2019 11/11/2020 - [place] ??? TONSILLECTOMY Social History Tobacco Use [...] (Tympanic) Resp 16 Ht 167.6 cm (66) Wt79.4 kg (175 lb) SpO2 98% BMI 28.25 [...] Last Liquid: 02/24/21 Time of Last Liquid: 729 Date of Last Solid: 02/23/21 Time of Last Solid: 1999 Patient Appropriate Candidate for Planned Sedation?: Yes Alan Milton MD 02/24/2021 14:21 documented in this encounter Nursing Notes * Paige Payan - 02/24/2021 1446 EDT Pt sleeping. Appears comfortable. * Paige Payan - 02/24/2021 1441 EDT Linear scope in * Paige Payan - 02/24/2021 1436 EDT egd scope out * Paige Payan - 02/24/2021 1434 EDT egd scope in documented in this encounter Miscellaneous Notes * Sedation Documentation - Paige Payan - 02/24/2021 1446 EDT Abdominal pressure applied. * Sedation Documentation - Steven Payana - 02/24/2021 1446 EDT Abdominal pressure applied. documented in this encounter Plan of Treatment Upcoming Encounters Date Type Department Care Team (Late st Contact Info) Description 10/17/2024 10:20 EST Telemedicine [facility] Endocrinology - [facility] [address] [place] [address] Ariela Woods MD 62 [facility] [address] [place] [phone] 10/18/2024 9:15 EST Telemedicine [facility] BISQUE CLEANER Pelvic Medicine and Reconstructive Surgery - Medical Office Building [address] [address] Kelsy Fierro MD 2 [facility] Medical Office 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 Informed consent was obtained from the patient after explaining all the risks (perforation, bleeding, infection, pancreatitis and adverse effects to the medicine) , benefits and alternatives to the procedure which the patient appeared to understand and so stated. ??BP and pulse monitoring done. ??Oximetry was used. ??Supplemental O2 given. The patient was placed in the left lateral position. Continuous oxygen was provided with a nasal cannula and IV medicine administered thru a indwelling cannula. After adequate sedation / anesthesia was achieved, the esophagus was intubated and the endoscope advanced under direct visualization to the . ??The ??was identified by visual landmarks. The scope was subsequently removed slowly while carefully examining the color, texture, anatomy, and integrity of the mucosa on withdrawal. ??The echoendoscope was then inserted, and a complete echosonographic examination was performed as described in the findings section below. ??Upon completion the echoendoscope was removed and the patient was subsequently transferred to the recovery area in satisfactory condition. Estimated Blood Loss: None Complications None Medications MAC Anesthesia See Anesthesia Record Findings EGD Findings: Esophagus: Normal Stomach: Yellowish, 2-3 cm subepithelial lesion at junction of gastric body and esophagus. ?? Soft upon forceps probing suspicious for lipoma (pillow sign) Duodenum: Normal EUS Findings: Images were obtained with the linear echoendoscope CELIAC AXIS: Normal with no adenopathy LIVER: Visualized portion of left lobe without mass or abnormality LEFT ADRENAL GLAND: Normal LEFT KIDNEY: Normal SPLEEN: Normal STOMACH: ??2-3 cm, hyperechoic mass in the superficial wall layers consistent with lipoma. ?? Homogeneous. PANCREAS: normal in echotexture, no masses. ??Non-dilated duct. 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 This electronic signature authenticates all electronic and/or handwritten documentation, including orders, generated by the signer during the episode of care contained in this record. 02/24/2021 02:51:30 PM By Alan Milton MD Alan Milton MD GI PROCEDURE ORDERABLES Fi nal Result documented in this encounter Visit Diagnoses Not on filedocumented in this encounter Administered Medications Inactive Administered Medications - up to 3 most recent administrations Medication Order MAR Action Action Date Dose Rate Site lactated ringers (LR) infusion 30 mL/hr, intravenous, PRN, Starting on Tue02/24/21 at 1332, Until Tue02/27/21 at 0203, Routine, Preprocedure New Bag 02/24/2021 14:05 EDT 30 mL/hr 30 mL /hr documented in this encounter Discontinued Medications Medication Sig Discontinue Reason Start Date End Da te losartan (COZAAR) 25 mg tablet Take 25 mg by mouth daily. Pt states not taking Therapy completed 02/24/2021 documented as of this encounter Orders Medications Ordered That Yeison ht Not Have Been Administered Count Last Ordered Date First Ordered Date atropine 0.1 mg/mL syringe 0.5 mg 1 021 diphenhydrAMINE (BENADRYL) injection 25 mg 2 02/24/2021 lactated ringers (LR) infusion 2 02/24/2021 lidocaine (PF) 10 mg/mL (1 % ) injection 2 mg 4 02/24/2021 naloxone (NARCAN) injection 0.2 mg 1 2020 sodium chloride 0.9 % (flush) flush 3 mL 2 02/24/2021 sodium chloride 0.9 % (flush) flush 5 mL 2 02/24/2021 sodium chloride 0.9 % (NS) infusion 2 02/24 documented in this encounter Care Teams Welding Machine Operator Resistance Relationship Specialty Start Date End Date Campos Lopes MD [address] [place] [address] PCP - General 05/21/09 documented as of this encounter
--- OUTSIDE RECORDS SUMMARY | 2024-10-09 11:21 | XMS_ITS | Encounter Summary ---
Author Organization [facility] Address [address] [place] [address] Care Team Providers Care Medical Operations Supervisor Name Role Phone Campos Lopes MD Primary Care Provider [phone] Reason for Visit * Reason Onset Date Comments Update 11/03/2021 Encounter Details Date Type Department Care Team (Late Contact Info) Description 11/03/[address] [facility] [address] [place] [address] Marisol Cortes, JAZIEL Update Social History Tobacco Use Types Packs/Day [...] encounter Miscellaneous Notes * Telephone Encounter - Marisol Cortes, RN - 11/03/2021 1610 EST Left message for patient regarding Dr cristiane's planned return on Tuesday and garry he would be able to tell her which medications will be included in the bladder instillation documented in this encounter Plan of Treatment Upcoming Encounters Date Type Department Care Team (Late st Contact Info) Description 10/17/2024 10:20 EST Telemedicine [facility] Endocrinology - [facility] [address] [place], [place] [phone] Ariela Woods MD 62 [facility] [address] [place] [phone] 10/18/2024 9:15 EST Telemedicine [facility] ALL AROUND PRESSER Pelvic Medicine and Reconstructive Surgery - Medical Office [facility] [address] [place] [phone] Kelsy Fierro MD 2 [facility] [place] Office [facility], [address] [phone] documented as of this encounter Visit Diagnoses Not on filedocumented in this encounter Care Teams Medical Operations Supervisor Relationship Specialty Start Date End Date Campos Lopes MD [address] [place] [address] PCP - General 05/21/09 documented as of this encounter
--- OUTSIDE RECORDS SUMMARY | 2024-10-09 11:21 | XMS_ITS | Encounter Summary ---
Author Organization [facility] Address [address] [place] [address] Care Team Providers Care Record Press Supervisor Name Role Phone Campos Lopes MD Primary Care Provider [phone] Encounter Details Date Type Department Care Team (Late st Contact Info) Description 10/12/2022 Lab Requisition [facility] Pathology & Laboratory Medicine - [facility] [address] [place] [address] Outr Resulting Lab, Provider Social History Tobacco [...] 10/17/2024 10:20 EST Telemedicine [facility] Endocrinology - [facility] [address] [place] [address] Ariela Woods MD 62 [facility] [address] [place] [phone] 10/18/2024 9:15 EST Telemedicine [facility] CONFLICTS ANALYST Pelvic Medicine and Reconstructive Surgery - Medical Office Building [facility] [address] [place] [address] Kelsy Fierro MD [address] [place] [address] Medical Office [facility], [address] [place] [phone] documented as of this encounter Procedures Procedure Name Priority Date/Time Associated Diagnosis Comments T3, TOTAL Routine 10/12/2022 11:15 EST documented in this encounter Results * (ABNORMAL) T3, TOTAL (10/12/2022 11:15 EST) T3, Total 241(H) 97 - 169 ng/dL 10/12/2022 22:32 EST [facility] Blood VENOUS BLOOD / Unknown 10/12/2022 11:15 EST 10/12/2022 21:31 EST us Provider Outr Resulting Lab CHEMISTRY & BLOOD GA S ORDERABLES Final Result [facility] [address] [place] [address] documented in this encounter Visit Diagnoses Not on filedocumented in this encounter Care Teams Record Press Supervisor Relationship Specialty Start Date End Date Campos Lopes MD [address] [place], [place] [phone] PCP - General 05/21/09 documented as of this encounter
--- OUTSIDE RECORDS SUMMARY | 2024-10-09 11:21 | XMS_ITS | Encounter Summary ---
Author Organization [facility] Address [address] [place] [address] Care Team Providers Care New Car Driver Name Role Phone Campos Lopes MD Primary Care Provider [phone] Reason for Visit * Reason Onset Date Comments Update 11/03/2021 Encounter Details Date Type Department Care Team (Late Contact Info) Description 11/03/2021 Telephone [facility] Urology Clinic [address] [place] [address] Marisol Cortes, JAZIEL Update Social History Tobacco [...] Encounter - Marisol Cortes, RN - 11/03/2021 6778 EST Attempts made to call patient to let know that Dr Martinez is out of office and would be better suited to answer questions regarding instillation as he has been working with pharmacy to get it. Unableto leave message . Disconnected x 2 documented in this encounter Plan of Treatment Upcoming Encounters Date Type Department Care Team (Late st Contact Info) Description 10/17/2024 10:20 EST Telemedicine [facility] Endocrinology - [facility] [address] [place], [place] [phone] Ariela Woods MD 62 [facility] [address] [place] [phone] 10/18/2024 9:15 EST Telemedicine [facility] TRUCK SERVICE MANAGER Pelvic Medicine and Reconstructive Surgery - Medical Office Building [facility] [address] [place] [phone] Kelsy Fierro MD [address] [place] [address] Medical Office [facility], [address] [phone] documented as of this encounter Visit Diagnoses Not on filedocumented in this encounter Care Teams New Car Driver Relationship Specialty Start Date End Date Campos Lopes MD [address] [place] [address] PCP - General 05/21/09 documented as of this encounter
--- OUTSIDE RECORDS SUMMARY | 2024-10-09 11:21 | XMS_ITS | Encounter Summary ---
Author Organization [facility] Address [address] [place] [address] Care Team Providers Care Vocational Rehabilitation Supervisor Name Role Phone Campos Lopes MD Primary Care Provider [phone] Reason for Visit * Reason Onset Date Comments Other 03/02/2021 Encounter Details Date Type Department Care Team ([facility] Contact Info) Description 03/02/2021 Telephone [facility] Gastroenterology - [facility] [address] [place], [place] [phone] Alan Milton MD 111 [facility], [address] [place] [address] Other Social History Tobacco Use [...] encounter Miscellaneous Notes * Telephone Encounter - Roslyn Nunez - 03/02/2021 0753 EDT Per pt phone request message, sent EUS report to PCP documented in this encounter Plan of Treatment Upcoming Encounters Date Type Department Care Team (Late st Contact Info) Description 10/17/2024 10:20 EST Telemedicine [facility] Endocrinology - [facility] [address] [place] [address] Ariela Woods MD [address] [phone] 10/18/2024 9:15 EST Telemedicine [facility] CASINO SLOT SUPERVISOR Pelvic Medicine and Reconstructive Surgery - Medical Office [address] [phone] Kelsy Fierro MD [address] [place] [address] Office [facility], [address] [phone] documented as of this encounter Visit Diagnoses Not on filedocumented in this encounter Care Teams Vocational Rehabilitation Supervisor Relationship Specialty Start Date End Date Campos Lopes MD [address] [place] [address] PCP - General 05/21/09 documented as of this encounter
--- OUTSIDE RECORDS SUMMARY | 2024-10-09 11:21 | XMS_ITS | Encounter Summary ---
Author Organization [facility] Address [address] [place] [address] Care Team Providers Care Wheat And Oats Flake Miller Name Role Phone Campos Lopes MD Primary Care Provider [phone] Encounter Details Date Type Department Care Team (Late Contact Info) Description 02/20/2021 Lab Requisition [facility] Pathology & Laboratory Medicine - [facility] [address] [place] [address] Outr Resulting Lab, Provider Social History Tobacco [...] [facility] Endocrinology - [facility] [address] [place], [place] [phone] Ariela Woods MD 62 [facility] [address] [place] [address] 10/18/2024 9:15 EST Telemedicine [facility] STITCHDOWN THREAD LASTER Pelvic Medicine and Reconstructive Surgery - Medical Office Building [facility] [address] [place] [address] Kelsy Fierro MD [address] [place] [address] Medical Office [facility], [address] [place] [phone] documented as of this encounter Procedures Procedure Name Priority Date/Time Associated Diagnosis Comments ZZCOVID-19 TEST [facility] PCR Today 02/20/2021 9:48 EDT COVID-19 TESTING Routine 02/20/2021 9:48 EDT documented in this encounter Results * COVID-19 TEST [facility] PCR (02/20/2021 9:48 EDT) Swab ENTIRE NASOPHARYNX / Unknown 02/20/2021 9:48 EDT 02/20/2021 16:25 EDT us Provider Outr Resulting Lab MICROBIOLOGY - GENER AL ORDERABLES Final Result [facility] [address] [place] [address] * COVID-19 TESTING (02/20/2021 9:48 EDT) COVID-19 rt-PCR Result Negative Negative 02/21/2021 11:24 EDT [facility] Comment: This test has not been FDA cleared or approved. This test has been authorized by FDA under an EUA for use by authorized laboratories. This test has been authorized only for detection of nucleic acid from 2019-nCoV, not for any other viruses or pathogens. This test is only authorized for the duration of the declaration that circumstances exist justifying the authorization of emergency use of in vitro diagnostic tests for detection and/or diagnosis of 2019-nCoV under section 564(b)(1) of Act, 21 U.S.C ?? 360bbb-3(b) (1), unless the authorization is terminated or revoked sooner. Negative results do not preclude 2019-nCoV infection and should not be used as the sole basis for treatment or other patient management decisions. Negative results must be combined with clinical observations, patient history, and epidemiological information. Testing was performed using the silvia SARS-CoV-2 assay ([employer] on the Silvia 6800 System Performing Lab Silvia 6800 [facility] 02/21/2021 11:24 EDT [facility] Swab 02/20/2021 9:48 EDT 02/20/2021 16:25 EDT us Provider Outr Resulting Lab MICROBIOLOGY - GENER AL ORDERABLES Final Result [facility] [address] [place] [address] documented in this encounter Visit Diagnoses Not on filedocumented in this encounter Care Teams Wheat And Oats Flake Miller Relationship Specialty Start Date End Date Campos Lopes MD [address] [place] [address] PCP - General 05/21/09 documented as of this encounter
--- OUTSIDE RECORDS SUMMARY | 2024-10-09 11:21 | XMS_ITS | Encounter Summary ---
Author Organization [facility] Address [address] [place] [address] Care Team Providers Care Peace Officer Name Role Phone Campos Lopes MD Primary Care Provider [phone] Reason for Visit * Reason Onset Date Comments Medication Management 11/03/2021 Encounter Details Date Type Department Care Team (Late Contact Info) Description 11/03/2021 Telephone [facility] - [facility] [address] [place] [address] Marisol Cortes, computer numeric control setter Management Social History Tobacco Use Types Packs/Day [...] * Telephone Encounter - Mae Sanford - 11/03/2021 1123 EST Rescheduled to 11/12, Patient would like to know what medications were ordered, and requests a call back please. * Telephone Encounter - Marisol Cortes RN - 11/03/2021 1106 EST Tarun from pharmacy called. Needs to speak with Dr Martinez regarding medication for instillation. More needs to be substituted and concentrations need to be discussed further. At earliest , would be able to get ready for treatment by end of next week. documented in this encounter Plan of Treatment Upcoming Encounters Date Type Department Care Team (Late st Contact Info) Description 10/17/2024 10:20 EST Telemedicine [facility] Endocrinology - [address] [address] Ariela Woods MD 62 [facility] [address] [place] [phone] 10/18/2024 9:15 EST Telemedicine [facility] WHEELCHAIR RENTAL CLERK Pelvic Medicine and Reconstructive Surgery - Medical Office [address] [phone] Kelsy Fierro MD [address] [place] [address] Medical Office [facility], [address] [phone] documented as of this encounter Visit Diagnoses Not on filedocumented in this encounter Care Teams Peace Officer Relationship Specialty Start Date End Date Campos Lopes MD [address] [place] [address] PCP - General 05/21/09 documented as of this encounter
--- OUTSIDE RECORDS SUMMARY | 2024-10-09 11:21 | XMS_ITS | Encounter Summary ---
Author Organization [facility] Address [address] [place] [address] Care Team Providers Care Cardiothoracic Surgeon Name Role Phone Campos Lopes MD Primary Care Provider [phone] Reason for Visit * Reason Onset Date Comments Update 01/12/2022 Encounter Details Date Type Department Care Team (Late Contact Info) Description 01/12/2022 Telephone [facility] - [facility] Endocrinology [address] [place] [address] John Martinez MD 130 [facility] [address] [place] [address] Update Social History Tobacco Use [...] * Telephone Encounter - Lauren Givens - 01/12/2022 1006 EDT Compounding meds, patient is going to cancel it.. She sent you a letter as well documented in this encounter Plan of Treatment Upcoming Encounters Date Type Department Care Team (Late st Contact Info) Description 10/17/2024 10:20 EST Telemedicine [facility] Endocrinology - [address] [phone] Ariela Woods MD 62 [facility] [address] [place] [phone] 10/18/2024 9:15 EST Telemedicine [facility] TECHNICAL SALES REPRESENTATIVES Pelvic Medicine and Reconstructive Surgery - Medical Office Building [facility] [address] [place] [address] Kelsy Fierro MD [address] [place] [address] Medical Office [facility], [address] [phone] documented as of this encounter Visit Diagnoses Not on filedocumented in this encounter Care Teams Cardiothoracic Surgeon Relationship Specialty Start Date End Date Campos Lopes MD [address] [place] [address] PCP - General 05/21/09 documented as of this encounter
--- OUTSIDE RECORDS SUMMARY | 2024-10-09 11:21 | XMS_ITS | Encounter Summary ---
Author Organization [facility] Address [address] [place] [address] Care Team Providers Care Third Grade Teacher Name Role Phone Campos Lopes MD Primary Care Provider Reason for Visit * Reason Comments Interstitial Cystitis Encounter Details Date Type Department Care Team ([facility] Contact Info) Description 04/30/2022 15:15 EDT Office Visit [facility] [address] [place] [address] Carlton Valentin MD [address] [address] Cystitis cystica (Primary Dx); Vulvodynia; Atrophic vaginitis Social History Tobacco Use Types Packs/Day Years [...] 07/11/2017 9:19 EDT documented in this encounter Patient Instructions * Patient Instructions* Joelle Valentin MD - 04/30/2022 15:15 EDT Thank you for coming to see me today. As you know my name is Dr. Valentin and I come from the [facility] to help train new doctors after a decade and a half of practice on the [facility]. I am from the [facility]. I am here as a visiting doctor to help out our clinic in [facility]. I appreciate you coming to see me [...] 250cc of Normal saline and mix and instill as a lavage into the bladder. 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 MD LAVONNE documented in this encounter Ordered Prescriptions Prescription Sig Dispense Quantity Refills Last Filled Start Date End Date Polymyxin B Sulfate 100 million unit powder Special intravesical treatment for cystitis and possible UTI 1/2 bottle/mixture in 250cc of Normal Saline and instill and lavage to clean out bladder, last syringe leave for extended dwell time. 5 Each 1 04/30/2022 3 documented in this encounter Progress Notes * Ilya Ferro MA - 04/30/2022 1515 EDT PVR: Lab [...] 11/15/2011 [place] Negative 01/07/2022 [place] Neg 11/15/2011 * Joelle Valentin MD - 04/30/2022 1512 EDT 04/30/2022 FOLLOWUP CHIEF COMPLAINT Interstitial Cystitis 2nd opinion. Pt follows Dr. Martinez PATIENT: Maureen Thomas HISTORY OF PRESENT ILLNESS Maureen Thomas is a very pleasant 82 y.o. 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 Patient stated that a female urologist diagnosed her with this at [facility]. A acal line that the patient reported to me was that her original urologist scoped her and stated that her bladder mucosa and bladder neck had morphological changes. I was unsure ofwhat she meant by that but I did explain to her Alberts therapy for potassium leak causing bladder pain. She was not aware of that theory. Since [...] do not show any urinary dips but theyshow about a 10,000 colony factor unit counts upon culture. She brought those labs for me to reviewfrom her primary care physician. 3) As a [...] COPD (chronic obstructive pulmonary disease) ([facility]) ([facility]) well controlled with inhalers per pt [...] capsule by mouth daily. (Patient not taking: Reportedon 04/30/2022) 30 capsule 5 ??? cetirizine (ZYRTEC) [...] mg by mouth daily. (Patient not taking: Reportedon 04/30/2022) ??? lidocaine (XYLOCAINE) 2 % jelly [...] by mouth. (Patient not taking: Reported on 04/30/2022) ??? TOVIAZ 4 mg ER tablet (Patient [...] ??? Mirabegron Other (See Comments) ??? Amitriptyline CIRCUS RIDER changes at low dose ??? Ciprofloxacin Other [...] UA, External 04/30/2022 neg Final ??? Specific [place] UA, External 04/30/2022 1.020 Final ??? Blood [...] entries. I spent the majority of our gccy-ut-jvri time listening to her concerns. In going [...] not know the significance of this cobblestoning findingon the mucosa. I explained that this is colonization within her bladder and that even small amountsof bacteria can lead to her being symptomatic. I asked if she would be interested in some 'outside the box' treatments that she has never had. I have had these type of treatment successes in my practices on the [facility] and in [place]. PLAN Rx Polymixin B She will get Estrogen cream from her other providers - applied daily with just a very absorbable amounts. Diary of pain, and stressors and really think back on her history and life events. AVS Printed for her Thank you for coming to see me today. As you know my name is Dr. Valentin and I come from the [facility] to help train new doctors after a decade and a half of practice on the [facility]. Terrance from the [facility]. I am here as a visiting doctor to help out our clinic in [facility]. I appreciate you coming to see me [...] 250cc of Normal saline and mix and instill as a lavage into the bladder. 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 MD LAVONNE 55 minutes spend interviewing pt, reviewing her records and labs, discussing alternative options, and preparing her AVS. Joelle Valentin MD Electronicaly signed by: Joelle Valentin MD documented in this encounter Plan of Treatment Upcoming Encounters Date Type Department Care Team (Late st Contact Info) Description 10/17/2024 10:20 EST Telemedicine [facility] Endocrinology - [address] [address] Ariela Woods MD [address] [place] [address] [place] [phone] 10/18/2024 9:15 EST Telemedicine [facility] DIRECTOR OF STRATEGIC SALES Pelvic Medicine and Reconstructive Surgery - Medical Office Building [facility] [address] [place] [address] Kelsy Fierro MD [address] [place] [address] Medical Office [facility], [address] [phone] documented as of this encounter Procedures Procedure Name Priority Date/Time Associated Diagnosis Comments UA CHEMICAL ONLY Routine 04/30/2022 UROLOGY BLADDER SCAN Routine 04/30/2022 UROLOGY BLADDER SCAN Routine 04/30/2022 documented in this encounter Results * UROLOGY BLADDER SCAN (04/30/2022) Bladder Scan 0 ML/PVR [facility] P OINT OF CARE Urine us Historical Provider UROLOGY ORDERABLES Final Result [facility] POINT OF CARE * UROLOGY BLADDER SCAN (04/30/2022) Bladder Scan 0 ml [facility] P OINT OF CARE Urine Historical Provider UROLOGY ORDERABLES Final Result [facility] POINT OF CARE * LAB URINE CHEMICAL (DIP) - DOES NOT REFLEX (04/30/2022) Color UA, External [facility] POINT OF CARE Clarity UA, External [facility] POINT OF CARE Glucose UA, External neg [facility] POINT OF CARE Bilirubin UA, External neg [facility] POINT OF CARE Ketones UA, External neg [facility] POINT OF CARE Specific [place] UA, External 1.020 [facility] POINT OF CARE Blood UA, External 1+ [facility] POINT OF CARE pH UA, External 6.0 [facility] POINT OF CARE Protein UA, External neg [facility] POINT OF CARE Urobilinogen UA, External 0.2 [facility] POINT OF CARE Nitrite UA, External neg [facility] POINT OF CARE Leukocyte Esterase UA, External 1+ [facility] POINT OF CARE Urine URINE SPECIMEN COLLECTION, CLEAN CATCH / Unknown 04/30/2022 [facility] Provider URINALYSIS ORDERABLES Fin al Result [facility] POINT OF CARE documented in this encounter Visit Diagnoses Diagnosis Cystitis cystica- Primary Vulvodynia Vulvodynia, 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 levOFLOXacin (LEVAQUIN) 500 mg tablet Take 1 Tablet by mouth daily. 04/02/2022 03/21/2024 cetirizine (ZYRTEC) 10 mg tablet Take 10 mg by mouth daily. 02/08/2022 01/26/2023 added in this encounter Care Teams Third Grade Teacher Relationship Specialty Start Date End Date Campos Lopes MD [address] [place] [address] PCP - General 05/21/09 documented as of this encounter
--- OUTSIDE RECORDS SUMMARY | 2024-10-09 11:22 | XMS_ITS | Encounter Summary ---
Author Organization [facility] Address [address] [place] [address] Care Team Providers Care Manager Trade Name Role Phone Campos Lopes MD Primary Care Provider [phone] Reason for Visit * Reason Onset Date Comments Other 03/14/2020 Encounter Details Date Type Department Care Team (Late st Contact Info) Description 03/14/2020 Telephone [facility] Gastroenterology - [address] [address] Assoc, Gi [facility], MBBS Other Social History Tobacco Use Types Packs/Day Years Used Date Smoking Tobacco: Former Cigarettes 1 32 1 10/19/1962 - 08/19/1995 Smokeless Tobacco: Never Alcohol Use Standard Drinks/Week Comments Yes 0 (1 standard drink = 0.6 oz pur e alcohol) very rare Comments No Sex and Gender Information Value [...] * Telephone Encounter - Roslyn Nunez - 03/14/2020 1105 EDT LM 2 x to date to schedule patient for EUS. Mobile number in chart is the wrong number documented in this encounter Plan of Treatment Upcoming Encounters Date Type Department Care Team (Late st Contact Info) Description 10/17/2024 10:20 EST Telemedicine [facility] Endocrinology - [facility] [address] [place] [address] Ariela Woods MD 62 [facility] [address] [place] [phone] 10/18/2024 9:15 EST Telemedicine [facility] ENVIRONMENTAL HEALTH SPECIALIST Pelvic Medicine and Reconstructive Surgery - Medical Office Building [facility] [address] [place] [phone] Kelsy Fierro MD [address] [place] [address] Medical Office [facility], [address] [place] [address] documented as of this encounter Visit Diagnoses Not on filedocumented in this encounter Care Teams Manager Trade Relationship Specialty Start Date End Date Campos Lopes MD [address] [place] [address] PCP - General 05/21/09 documented as of this encounter
--- OUTSIDE RECORDS SUMMARY | 2024-10-09 11:22 | XMS_ITS | Encounter Summary ---
Author Organization [facility] Address [address] [place] [address] Care Team Providers Care Press Brake Operator Name Role Phone Campos Lopes MD Primary Care Provider [phone] Reason for Visit * Reason Onset Date Comments Other 11/12/2020 Encounter Details Date Type Department Care Team (Late st Contact Info) Description 11/12/2020 Telephone [facility] Gastroenterology - [facility] [address] [place], [place] [phone] Alan Milton MD [address] [facility], [address] [place] [address] Other Social History Tobacco Use [...] Telephone Encounter - Juliane Hanks RN - 11/13/2020 1542 EST Patient is scheduled for an EUS on 11/18/20. She would like to be sure Dr. Milton looks at her gallbladder. She states that she has already had an ultrasound and HIDA scan of her gallbladder, which was not normal. She is aware that the focus of the EUS is to evaluate a mass in her stomach. If she has additional questions, she will ask Dr. Milton prior to the EUS ( before sedation is given). documented in this encounter Plan of Treatment Upcoming Encounters Date Type Department Care Team (Late st Contact Info) Description 10/17/2024 10:20 EST Telemedicine [facility] Endocrinology - [address] [phone] Ariela Woods MD 62 [facility] [address] [place] [phone] 10/18/2024 9:15 EST Telemedicine [facility] MATE FISHING VESSEL Pelvic Medicine and Reconstructive Surgery - Medical Office Building [facility] [address] [place] [phone] Kelsy Fierro MD [address] [place] [address] Office [facility], [address] [phone] documented as of this encounter Visit Diagnoses Not on filedocumented in this encounter Care Teams Press Brake Operator Relationship Specialty Start Date End Date Campos Lopes MD [address] [place] [address] PCP - General 05/21/09 documented as of this encounter
--- OUTSIDE RECORDS SUMMARY | 2024-10-09 11:22 | XMS_ITS | Encounter Summary ---
Author Organization [facility] Address [address] [place] [address] Care Team Providers Care Secondary Spanish Teacher Name Role Phone Campos Lopes MD Primary Care Provider [phone] Reason for Visit * Reason Comments Cataract Encounter Details Date Type Department Care Team ([facility] st Contact Info) Description 06/04/2019 13:15 EDT Office Visit [facility] Ophthalmology [facility] [address] [place] [address] Brenden Means MD [address] [place] [phone] Social History Tobacco Use Types Packs/Day Years [...] this encounter Progress Notes * Brenden Means D - 06/04/2019 5525 EDT Chief Complaint Patient presents with ??? Cataract HPI The patient is a 79 y.o. female here for follow up of cataracts. She reports that she is bothered by her distance and reading vision. She is having [...] blurry vision for both distance & reading, andshe does have some glare issues at night (has had issues for a few years). No irritation, no pain, no floaters or flashes. Modifying factors: Associated Signs & Symptoms: Attestation: ROS Constitutional: NL ENT/Mouth Cardiovascular: Respiratory: Gastrointestinal: Genitourinary: Musculoskeletal: Integumentary: Neurologic: Psychiatric: Endocrine: Hematologic: Immunologic: Residence Manager: Exposures: None Other: Attestation: Base Eye Exam Visual Acuity (Snellen - Linear) Right Left Dist sc 20/50 -2 20/40 +1 Pupils Pupils Dark Light APD Right PERRL 5 4 None Left PERRL 5 4 none Neuro/Psych Oriented x3: Yes Mood/Affect: Normal Additional Tests Glare Testing (BAT) Off High Right 20/25 20/25 Left 20/25-3 20/25 Refraction Manifest Refraction Sphere Cylinder [place] Dist [place] Right +1.50 +0.75 005 20/25 Left +0.75 +1.25 010 20/25-3 DIAGNOSTIC TESTS: IMPRESSION & PLAN: 1. Cataract, both eyes -Becoming visually significant, we had a thorough discussion again about cataract surgery. Her vision today is correctable to 20/25- with glasses, we discussed this and will try glasses (separate fordistance and reading). She will let us know [...] Info) Description 10/17/2024 10:20 EST Telemedicine [facility] Endocrinology - [address] [phone] Ariela Woods MD [address] [place] [phone] 10/18/2024 9:15 EST Telemedicine [facility] CIRCUIT BOARD REPAIR TECHNICIAN Pelvic Medicine and Reconstructive Surgery - Medical Office Building [address] [phone] Kelsy Fierro MD 2 [facility] Medical Office [facility], [address] [phone] documented as of this encounter Visit Diagnoses [...] Lens 2+ Nuclear sclerosis , Trace Cortical cataract 2+ Nuclear sclerosis, Trace Cortical cataract, Trace Posterior subcapsular cataract Manifest Refraction Sphere Cylinder [place] Dist VA Right eye +1.50 +0.75 005 20/25 Left eye +0.75 +1.25 010 20/25-3 Final Rx #1 Sphere Cylinder [place] Right eye +1.50 +0.75 005 Left eye +0.75 +1.25 010 Type: DIstance glasses Final Rx #2 Sphere Cylinder [place] Right eye +4.00 +0.75 005 Left eye +3.25 +1.25 010 Type: Reading glasses Care Teams Secondary Spanish Teacher Relationship Specialty Start Date End Date Campos Lopes MD [address] [place] [address] PCP - General 05/21/09 documented as of this encounter
--- OUTSIDE RECORDS SUMMARY | 2024-10-09 11:22 | XMS_ITS | Encounter Summary ---
Author Organization [facility] Address [address] [place] [address] Care Team Providers Care Rate Manager Name Role Phone Campos Lopes MD Primary Care Provider [phone] Reason for Visit * (Routine/Next Available) - Receiving Office to Obtain Authorization Specialty Diagnoses / Procedures Referred By Lynnette osman Referred To Contact Procedures CT OUTSIDE IMAGES OTHER Imaging, External Referral ID Status Reason Start Date Expiration Date Visits Requested Visits Authorized [id number] Receiving Office to Obtain Authorization 01/13/2023 1 1 Encounter Details Date Type Department Care Team (Latest Contact Info) Description 08/01/2020 - 08/01/2020 23:59 EDT Hospital Encounter [facility] Secondary Reads [place] Discharge Disposition: Home or [...] tablet Take by mouth daily. 1000 IU atenolol (TENORMIN) 50 mg tabletIndication s:Hyperthyroidis m Take 25 mg by mouth daily before breakfast. 3 estradiol (ESTRACE) 0.01 % (0.1 mg/g) vaginal cream Place vaginally. Per vagina 2 x weekly 1 Tube 11 06/29/2011 3 fluticasone-salm eterol (ADVAIR HFA) 230-21 mcg/actuation inhaler Inhale 2 Puffs as directed 2 times daily . 3 ibuprofen (MOTRIN) 200 mg tablet Take 4 Tablets by mouth every 8 hours as needed for Pain. 3 losartan (COZAAR) 25 mg tablet Take 25 mg by mouth daily. Pt states not taking 1 magnesium oxide (MAG-OX) 400 mg tablet Take 1 Tablet by mouth daily before breakfast. Currently taking 3 methylPREDNISolo ne (MEDROL) 4 mg tablet MEDROL 4 MG TABS 07/08/2020 3 Multivitamins with Minerals tablet tablet Take 1 Tab by mouth daily. 3 nitrofurantoin, macrocrystal-mon ohydrate, (MACROBID) 100 mg capsule 1 Capsule every 12 hours. 07/07/2020 2 PANTOPRAZOLE SODIUM (PROTONIX ORAL) Take by mouth daily. 1 ranitidine (ZANTAC) 150 mg tablet Take 150 mg by mouth daily before breakfast. 0 09/14/2019 1 solifenacin (VESICARE) 10 mg tablet Take 5 mg by mouth as needed. 3 documented as of this encounter Discharge Disposition Disposition Code Departure Means Destination Home or Self Care documented in this encounter Plan of Treatment Upcoming Encounters Date Type Department Care Team (Late st Contact Info) Description 10/17/2024 10:20 EST Telemedicine [facility] Endocrinology - [facility] [address] [place], [place] [phone] Ariela Woods MD 62 [facility] [address] [place] [phone] 10/18/2024 9:15 EST Telemedicine [facility] HEAD SAWYER Pelvic Medicine and Reconstructive Surgery - Medical Office Building [facility] [address] [place] [address] Kelsy Fierro MD [address] [place] [address] Medical Office [facility] [address] [place] [phone] documented as of this encounter Procedures Procedure Name Priority Date/Time Associated Diagnosis Comments CT OUTSIDE IMAGES OTHER Routine 08/01/2020 9:09 EDT documented in this encounter Results * CT OUTSIDE IMAGES OTHER (08/01/2020 9:09 EDT) Narrative 01/13/2023 9:09 EDT This is a non-reportable exam. us External Imaging IMG OTHER IMAGING ORDERABLES Fi nal Result documented in this encounter Visit Diagnoses Not on filedocumented in this encounter Care Teams Rate Manager Relationship Specialty Start Date End Date Campos Lopes MD [address] [place] [address] PCP - General 05/21/09 documented as of this encounter
--- OUTSIDE RECORDS SUMMARY | 2024-10-09 11:22 | XMS_ITS | Encounter Summary ---
Author Organization [facility] Address [address] [place] [address] Care Team Providers Care Company Dancer Name Role Phone Campos Lopes MD Primary Care Provider [phone] Encounter Details Date Type Department Care Team (Late st Contact Info) Description 09/20/2019 Orders Only [facility] Endocrinology - [address] [phone] Obdulio Gray MD [address] [place] [address] Nontoxic multinodular goiter (Primary Dx) Social History Tobacco Use Types [...] Contact Info) Description 10/17/2024 10:20 EST Telemedicine [facility] Endocrinology - [facility] [address] [place], [place] [phone] Ariela Woods MD 62 [facility] [address] [place] [address] 10/18/2024 9:15 EST Telemedicine [facility] BUSH [employer]INE FARMER [employer]UIT CROPS Pelvic Medicine and Reconstructive Surgery - Medical Office Building [facility] [address] [place] [address] Kelsy Fierro MD 2 [facility] Medical Office Building, [address] [place] [phone] documented as of this encounter Procedures Procedure Name Priority Date/Time Associated Diagnosis Comments T3, TOTAL Add-On 09/18/2019 16:14 EST Nontoxic multinodular goiter TSH Add-On 09/18/2019 16:14 EST Nontoxic multinodular goiter T4 FREE Add-On 09/18/2019 16:14 EST Nontoxic multinodular goiter documented in this encounter Results * (ABNORMAL) T3, TOTAL (09/18/2019 16:14 EST) T3, Total 182(H) 97 - 169 ng/dL 09/20/2019 11:53 EST [facility] Blood VENOUS BLOOD / Unknown Venipuncture / Unknown 09/18/2019 16:14 EST 09/18/2019 16:15 EST us Obdulio Nichols MD CHEMISTRY & BLOOD GA S ORDERABLES Final Result [facility] [address] [place] [address] * T4 FREE (09/18/2019 16:14 EST) T4, Free 1.4 0.8 - 2.2 ng/dL 09/20/2019 11:41 EST [facility] Blood VENOUS BLOOD / Unknown Venipuncture / Unknown 09/18/2019 16:14 EST 09/18/2019 16:15 EST Obdulio Nichols MD CHEMISTRY & BLOOD GA S ORDERABLES Final Result Performing Organization Address City/[facility]/ZIP Co de Phone Number [facility] [address] [place] [address] * (ABNORMAL) TSH (09/18/2019 16:14 EST) TSH <0.02(L) 0.47 - 4.68 uIU/mL 09/20/2019 11:54 EST [facility] Blood VENOUS BLOOD / Unknown Venipuncture / Unknown 09/18/2019 16:14 EST 09/18/2019 16:15 EST Narrative [facility] - 09/20/2019 11:54 EST The results of this assay can be falsely lowered due to the consumption of Biotin. us Obdulio Nichols MD CHEMISTRY & BLOOD GA S ORDERABLES Final Result [facility] [address] [place] [address] documented in this encounter Visit Diagnoses Diagnosis Nontoxic multinodular goiter- Primary documented in this encounter Care Teams Company Dancer Relationship Specialty Start Date End Date Campos Lopes MD [address] [place] [address] PCP - General 05/21/09 documented as of this encounter
--- OUTSIDE RECORDS SUMMARY | 2024-10-09 11:22 | XMS_ITS | Encounter Summary ---
Author Organization [facility] Address [address] [place] [address] Care Team Providers Care Maternal Child Nurse Name Role Phone Campos Lopes MD Primary Care Provider [phone] Encounter Details Date Type Department Care Team (Latest Contact Info) Description 09/18/2019 13:50 EST Phlebotomy Only [facility] Endocrinology - [facility] [address] [place] [address] Phlebotomy, [employer] Nontoxic multinodular goiter (Primary Dx) Social History [...] documented in this encounter Progress Notes * Maureen George MA - 09/18/2019 1350 EST A venous blood collection was preformed today via venipuncture on this patient. I was supervised by Jimmy Navarrete who was present and immediately available in the office suite. MAUREEN GEORGE MA 09/18/2019 16:14 documented in this encounter Miscellaneous Notes * Result Encounter Note - Obdulio Gray MD - 09/18/2019 1350 EST In my note it said her tsh, total t3, etc was added-on She is hyperthyroid She needs radioactive iodine uptake and scan. Id she would like to proceed, we can pretreat her as we discussed due to her history of allergiesthough the concern/risk is low. Very importantly as [...] EST Telemedicine [facility] Endocrinology - [address] [phone] Ariela Woods MD [address] [place] [phone] 10/18/2024 9:15 EST Telemedicine [facility] UNHAIRING INSPECTOR Pelvic Medicine and Reconstructive Surgery - Medical Office Building [address] [phone] Kelsy Fierro MD [address] [place] [address] Medical Office Building, [address] [phone] documented as of this encounter Procedures Procedure Name Priority Date/Time Associated Diagnosis Comments THYROTROPIN RECEPTOR ANTIBODY Routine 09/18/2019 16:14 EST Nontoxic multinodular goiter THYROPEROXIDASE ANTIBODY Routine 09/18/2019 16:14 EST Nontoxic multinodular goiter VITAMIN D (25,OH) Routine 09/18/2019 16: 14 EST Nontoxic multinodular goiter PTH INTACT Routine 09/18/2019 16:14 EST Nontoxic multinodular goiter PHOSPHORUS Routine 09/18/2019 16:14 EST Nontoxic multinodular goiter COMPREHENSIVE METABOLIC PANEL (CMP) Routine 09/18/2019 16:14 EST Nontoxic multinodular goiter documented in this encounter Results * COMPREHENSIVE METABOLIC PANEL (CMP) (09/18/2019 16:14 EST) Sodium 138 136 - 145 mEq/L 09/18/2019 18:35 [facility] Potassium 4.3 3.5 - 5.0 mEq/L 09/18/2019 18:35 [facility] Chloride 103 96 - 110 mEq/L 09/18/2019 18:35 [facility] CO2 Total 27 22 - 32 mEq/L 09/18/2019 18:35 [facility] Glucose 98 70 - 100 mg/dL 09/18/2019 18:35 [facility] BUN 21 10 - 26 mg/dL 09/18/2019 18:35 [facility] Creatinine 0.75 0.52 - 1.04 mg/dL 09/18/2019 18:35 [facility] eGFR 77 >60 mL/min/1.7 3m2 09/18/2019 18:35 [facility] Comment:eGFR calculated anya starr CKD-EPI equation for non- Americans. Multiply eGFR by 1.16 for patients. Total Protein 7.3 6.3 - 8.2 g/dL 09/18/2019 18:35 [facility] Albumin 4.6 3.4 - 4.9 g/dL 09/18/2019 18:35 [facility] Alkaline Phosphatase 75 38 - 126 U/L 09/18/2019 18:35 [facility] AST 25 15 - 46 U/L 09/18/2019 18:35 [facility] ALT 17 <35 U/L 09/18/2019 18:35 [facility] Bilirubin, Total 0.7 <1.4 mg/dL 09/18/20 19 18:35 [facility] Calcium 9.8 8.5 - 10.5 mg/dL 09/18/2019 18:35 [facility] Calculated Calcium 9.3 8.5 - 10.5 mg/dL 09/18/2019 18:35 [facility] Blood VENOUS BLOOD / Unknown Venipuncture / Unknown 09/18/2019 16:14 EST 09/18/2019 16:15 EST Obdulio Nichols MD CHEMISTRY & BLOOD GA S ORDERABLES Final Result [facility] [address] [place] [address] * VITAMIN D (25,OH) (09/18/2019 16:14 EST) 25OH Vitamin D Tot 32.1 30.0 - 100.0 ng/mL 09/19/2019 10:52 [facility] Comment: Vitamin D 25,OH Interpretive Ranges: Deficiency: ??<10.0 ng/mL Insufficiency: ??10.0 - 30.0 ng/mL Sufficiency: ??30.0 - 100.0 ng/mL Toxicity: ??>100.0 ng/mL Blood VENOUS BLOOD / Unknown Venipuncture / Unknown 09/18/2019 16:14 EST 09/18/2019 16:15 EST us Obdulio Nichols MD CHEMISTRY & BLOOD GA S ORDERABLES Final Result Performing Organization Address City/[facility] Co de Phone Number [facility] [address] [place] [address] * PHOSPHORUS (09/18/2019 16:14 EST) Phosphorus 3.9 2.5 - 4.5 mg/dL 09/18/2019 18:[address] [facility] Blood VENOUS BLOOD / Unknown Venipuncture / Unknown 09/18/2019 16:14 EST 09/18/2019 16:15 EST us Obdulio Nichols MD CHEMISTRY & BLOOD GA S ORDERABLES Final Result Performing Organization Address [facility] Co de Phone Number [facility] [address] [place] [address] * PTH INTACT (09/18/2019 16:14 EST) Intact PTH 39 19 - 88 pg/mL 09/19/2019 12:[address] [facility] Blood VENOUS BLOOD / Unknown Venipuncture / Unknown 09/18/2019 16:14 EST 09/18/2019 16:15 EST us Obdulio Nichols MD CHEMISTRY & BLOOD GA S ORDERABLES Final Result Performing Organization Address [facility] Co de Phone Number [facility] [address] [place] [address] * THYROTROPIN RECEPTOR ANTIBODY (09/18/2019 16:14 EST) Thyrotropin Receptor Ab, S <1.00 0.00 - 1.75 IU/L 09/19/2019 17:15 EST [facility] [employer] Comment: ADDITIONAL INFORMATION At a decision limit of 1.75 IU/L, this assay has 97% sensitivity and 99% specificity for detection of Graves' disease. In healthy individuals and in patients with thyroid disease without diagnosis of Graves' disease, the upper limit of anti-TSHR values are 1.22 IU/L and 1.58 IU/L, respectively (97.5th percentiles). Test Performed by: [facility] [address] [place] [address] Record Label Internship: Wero Mariano M.D. Ph.D.; CLIA# [id number] Blood VENOUS BLOOD / Unknown Venipuncture / Unknown 09/18/2019 16:14 EST 09/18/2019 16:15 EST Obdulio Nichols MD CHEMISTRY & BLOOD GA S ORDERABLES Final Result [facility] [address] [place] [address] * THYROPEROXIDASE ANTIBODY (09/18/2019 16:14 EST) Thyroperoxidase Ab <28 <=60 U/mL 2018 11:[address] [facility] Blood VENOUS BLOOD / Unknown Venipuncture / Unknown 09/18/2019 16:14 EST 09/18/2019 16:15 EST Obdulio Nichols MD CHEMISTRY & BLOOD GA S ORDERABLES Final Result [facility] [address] [place] [address] documented in this encounter Visit Diagnoses Diagnosis Nontoxic multinodular goiter- Primary documented in this encounter Care Teams Maternal Child Nurse Relationship Specialty Start Date End Date Campos Lopes MD [address] [place], [place] [phone] PCP - General 05/21/09 documented as of this encounter
--- OUTSIDE RECORDS SUMMARY | 2024-10-09 11:22 | XMS_ITS | Encounter Summary ---
Author Organization [facility] Address [address] [place] [address] Care Team Providers Care Combination Welder Apprentice Name Role Phone Campos Lopes MD Primary Care Provider [phone] Reason for Visit * Reason Onset Date Comments Other 11/17/2020 Encounter Details Date Type Department Care Team (Late st Contact Info) Description 11/17/2020 Telephone [facility] Gastroenterology - [facility] [address] [place], [place] [phone] Alan Milton MD [address] [facility], [address] [place] [address] Other Social History Tobacco Use [...] encounter Miscellaneous Notes * Telephone Encounter - Constanza Alfred RN - 11/17/2020 1144 EST Patient just spoke with [facility] to cancel tomorrow's EUS. Started blood thinners on Tuesday for PE, shepieter know more later today or tomorrow morning at the latest whether or not she will be on blood thinners chcf. Wants to have EUS done to biopsy the mass in her stomach but needs to treat the PE as well. Ally call back to schedule when she has more information regarding the PE. No further needs expressed at this time. documented in this encounter Plan of Treatment Upcoming Encounters Date Type Department Care Team (Late st Contact Info) Description 10/17/2024 10:20 EST Telemedicine [facility] Endocrinology - [address] [phone] Ariela Woods MD 62 [facility] [address] [place] [phone] 10/18/2024 9:15 EST Telemedicine [facility] CAFE WORKER Pelvic Medicine and Reconstructive Surgery - Medical Office Building [facility] [address] [place] [phone] Kelsy Fierro MD 2 [facility] Office [facility], [address] [phone] documented as of this encounter Visit Diagnoses Not on filedocumented in this encounter Care Teams Combination Welder Apprentice Relationship Specialty Start Date End Date Campos Lopes MD [address] [place], [place] [phone] PCP - General 05/21/09 documented as of this encounter
--- OUTSIDE RECORDS SUMMARY | 2024-10-09 11:22 | XMS_ITS | Encounter Summary ---
Author Organization [facility] Address [address] [place] [address] Care Team Providers Care Laboratory Inspector Name Role Phone Campos Lopes MD Primary Care Provider [phone] Encounter Details Date Type Department Care Team (Late st Contact Info) Description 10/07/[address] [facility] Pathology & Laboratory Medicine - [facility] [address] [place] [address] Oleg Bocanegra MD [address] [place] [address] Overactive bladder Social History Tobacco Use Types Packs/Day Years [...] Info) Description 10/17/2024 10:[address] [facility] Endocrinology - [facility] [address] [place] [address] Ariela Woods MD 62 [facility] [address] [place] [phone] 10/18/2024 9:[address] [facility] PHOTOGRAPHIC DOUBLE Pelvic Medicine and Reconstructive Surgery - Medical Office Building [facility] [address] [place] [phone] Kelsy Fierro MD 2 [facility] Medical Office [facility], [address] [phone] documented as of this encounter Procedures Procedure Name Priority Date/Time Associated Diagnosis Comments ANATOMIC PATHOLOGY - DOWNTIME Today 08/20/2020 15:05 EST Overactive bladder documented in this encounter Results * ANATOMIC PATHOLOGY - DOWNTIME (08/20/2020 15:05 EST) Final Diagnosis See scanned downtime report. 10/07/2020 14:43 [facility] Attestation Report electronically released by Juliane Pollock on 10/07/20 . 10/07/2020 14:43 EST [facility] Performing Lab [facility] 10/07/2020 14:43 [facility] Scanned Images 10/07/2020 14:43 [facility] Urine URINE SPECIMEN / Unknown 08/20/2020 15:05 EST 10/07/2020 14:42 EST us Oleg Bocanegra MD PATHOLOGY ORDERABLES Final R esult [facility] [address] [place] [address] documented in this encounter Visit Diagnoses Diagnosis Overactive bladder Hypertonicity of bladder documented in this encounter Care Teams Laboratory Inspector Relationship Specialty Start Date End Date Campos Lopes MD [address] [place], [place] [phone] PCP - General 05/21/09 documented as of this encounter
--- OUTSIDE RECORDS SUMMARY | 2024-10-09 11:22 | XMS_ITS | Encounter Summary ---
Author Organization [facility] Address [address] [place] [address] Care Team Providers Care Line Operator Name Role Phone Campos Lopes MD Primary Care Provider [phone] Encounter Details Date Type Department Care Team (Late st Contact Info) Description 04/14/2020 Lab Requisition [facility] Pathology & Laboratory Medicine - [facility] [address] [place] [address] Outr Resulting Lab, Provider Social History Tobacco [...] Encounters Date Type Department Care Team (Late Contact Info) Description 10/17/2024 10:20 EST Telemedicine [facility] Endocrinology - [facility] [address] [place] [address] Ariela Woods MD 62 [facility] [address] [place] [phone] 10/18/2024 9:15 EST Telemedicine [facility] SCALE EXPERT Pelvic Medicine and Reconstructive Surgery - Medical Office Building [facility] [address] [place] [address] Kelsy Fierro MD 2 [facility], [address] [phone] documented as of this encounter Procedures Procedure Name Priority Date/Time Associated Diagnosis Comments T3, TOTAL Routine 04/14/2020 13:41 EDT documented in this encounter Results * T3, TOTAL (04/14/2020 13:41 EDT) T3, Total 157 97 - 169 ng/dL 04/14/2020 23:08 EDT [facility] Blood VENOUS BLOOD / Unknown 04/14/2020 13:41 EDT 04/14/2020 22:26 EDT us Provider Outr Resulting Lab CHEMISTRY & BLOOD GA S ORDERABLES Final Result [facility] [address] [place] [address] documented in this encounter Visit Diagnoses Not on filedocumented in this encounter Care Teams Line Operator Relationship Specialty Start Date End Date Campos Lopes MD [address] [place], [place] [phone] PCP - General 05/21/09 documented as of this encounter
--- OUTSIDE RECORDS SUMMARY | 2024-10-09 11:22 | XMS_ITS | Encounter Summary ---
Author Organization [facility] Address [address] [place] [address] Care Team Providers Care Resistance Machine Welder Setter Name Role Phone Campos Lopes MD Primary Care Provider [phone] Reason for Visit * (Routine) - Receiving Office to Obtain Authorization Specialty Diagnoses / Procedures Referred By Lynnette osman Referred To Contact Procedures XR OUTSIDE IMAGES CHEST Unknown, Provider, MD Referral ID Status Reason Start Date Expiration Date Visits Requested Visits Authorized [id number] Receiving Office to Obtain Authorization 12/06/2020 1 1 Encounter Details Date Type Department Care Team (Latest Contact Info) Description 11/19/2020 Hospital Encounter [facility] Secondary Reads [place] Discharge Disposition: Home or [...] every 12 hours. 07/07/2020 2 omeprazole (PRILOSEC) 20 mg capsule Take by mouth daily. Pt does know dose 1 ranitidine (ZANTAC) 150 mg tablet Take [...] EST Telemedicine [facility] Endocrinology - [facility] [address] [place] [address] Ariela Woods MD 62 [facility] [address] [place] [phone] 10/18/2024 9:15 EST Telemedicine [facility] MONEY ORDER CLERK Pelvic Medicine and Reconstructive Surgery - Medical Office [facility] [address] [place] [phone] Kelsy Fierro MD 2 [facility] Medical Office [facility], [address] [phone] documented as of this encounter Procedures Procedure Name Priority Date/Time Associated Diagnosis Comments XR OUTSIDE IMAGES CHEST Routine 12/06/2020 8:10 EST documented in this encounter Results * XR OUTSIDE IMAGES CHEST (12/06/2020 8:10 EST) Narrative 12/06/2020 8:10 EST This is a non-reportable exam. us Provider Unknown MD SAINI OTHER IMAGING ORDERABLES Final Result documented in this encounter Visit Diagnoses Not on filedocumented in this encounter Care Teams Resistance Machine Welder Setter Relationship Specialty Start Date End Date Campos Lopes MD [address] [place] [address] PCP - General 05/21/09 documented as of this encounter
--- OUTSIDE RECORDS SUMMARY | 2024-10-09 11:22 | XMS_ITS | Encounter Summary ---
Author Organization [facility] Address [address] [place] [address] Care Team Providers Care Order Checker Packer Processer Name Role Phone Campos Lopes MD Primary Care Provider [phone] Encounter Details Date Type Department Care Team (Late st Contact Info) Description 04/01/2020 Orders Only [facility] Gastroenterology - [facility] [address] [place], [place] [phone] Alan Milton MD 111 [facility], [address] [place] [phone] Encounter for preprocedure screening laboratory [...] [facility] Endocrinology - [facility] [address] [place] [address] Ariela Woods MD 62 [facility] [address] [place] [phone] 10/18/2024 9:15 EST Telemedicine [facility] AIRFREIGHT LOADING SUPERVISOR Pelvic Medicine and Reconstructive Surgery - Medical Office Building [facility] [address] [place] [phone] Kelsy Fierro MD 2 [facility] Medical Office [facility], [address] [phone] documented as of this encounter Visit Diagnoses Diagnosis Encounter for preprocedure screening laboratory testing for COVID-19- Primary documented in this encounter Care Teams Order Checker Packer Processer Relationship Specialty Start Date End Date Campos Lopes MD [address] [place] [address] PCP - General 05/21/09 documented as of this encounter
--- OUTSIDE RECORDS SUMMARY | 2024-10-09 11:22 | XMS_ITS | Encounter Summary ---
Author Organization [facility] Address [address] [place] [address] Care Team Providers Care Barber Tool Sharpener Name Role Phone Campos Lopes MD Primary Care Provider [phone] Reason for Visit * Reason Onset Date Comments Appointment Related 11/15/2019 Encounter Details Date Type Department Care Team (Late st Contact Info) Description 11/15/2019 Telephone [facility] Endocrinology - [address] [phone] Danny Blakely RN Appointment Related Social History Tobacco Use Types [...] encounter Miscellaneous Notes * Telephone Encounter - Obdulio Gray MD - 11/15/2019 1828 EST You can call her now Danny Mendoza - is the official answer that its best to wait 2 years after last DXA or can she do it now, She is insisting Call me please Will be at clinic tomorrw * Telephone Encounter - Danny Blakely RN - 11/15/2019 1439 EST Calling patient 11/15/19 14:[address] Obdulio Nichols MD for a nuclear medicine uptake and scan. If indicated, treatment for hyperthyroidism possible at time of appointment. Date Initials Scheduled with nuc med: 11/15/19 JPS Contact patient: Review schedule with patient: 11/15/19 JPS Discuss VENTURA treatment precautions: 11/15/19 JPGraham Advised to stop medication 11/15/19 JPS E-mail handouts: 11/15/19 JPS VENTURA precautions appointment letter: Patient's e-mail : This insurance underwriter read back e-mail : DANNY BLAKELY RN 11/15/2019 documented in this encounter Plan of Treatment Upcoming Encounters Date Type Department Care Team (Late st Contact Info) Description 10/17/2024 10:20 EST Telemedicine [facility] Endocrinology - [address] [address] Ariela Woods MD [address] [place] [phone] 10/18/2024 9:15 EST Telemedicine [facility] ORNAMENTER Pelvic Medicine and Reconstructive Surgery - Medical Office Building [facility] [address] [place] [address] Kelsy Fierro MD 2 [facility] Medical Office Building, [address] [phone] documented as of this encounter Visit Diagnoses Not on filedocumented in this encounter Care Teams Barber Tool Sharpener Relationship Specialty Start Date End Date Campos Lopes MD [address] [place] [address] PCP - General 05/21/09 documented as of this encounter
--- OUTSIDE RECORDS SUMMARY | 2024-10-09 11:22 | XMS_ITS | Encounter Summary ---
Author Organization [facility] Address [address] [place] [address] Care Team Providers Care Contracts Manager Name Role Phone Campos Lopes MD Primary Care Provider [phone] Reason for Visit * Reason Onset Date Comments Patient Outreach 11/07/2019 Encounter Details Date Type Department Care Team (Late st Contact Info) Description 11/07/2019 Telephone [facility] Endocrinology - [address] [address] Obdulio Gray MD [address] [place] [phone] Patient Outreach Social History Tobacco Use Types Packs/Day Years [...] encounter Miscellaneous Notes * Telephone Encounter - Lola Brewster RN - 11/07/2019 1127 EST Pt called to state that when she was called and scheduled for her bone density scan (12/04/19), the person scheduling her did not see any orders for premedication. Pt states that she is very sensitiveto IV contrast and discussed this with Dr. Mitchell at her appointment with him 09/09/19. Pt would prefer that Dr Mitchell call her and let her know what he plans to do regarding any premedication as she has sensitivities to IV contrast and other medications.. Patient verbalized understanding. No barriers to learning noted. Lola Brewster RN Endocrinology * Telephone Encounter - Stefania Dooley - 11/07/2019 0855 EST Patient would like to speak with a nurse regarding her Bone density she has a question. documented in this encounter Plan of Treatment Upcoming Encounters Date Type Department Care Team (Late st Contact Info) Description 10/17/2024 10:20 EST Telemedicine [facility] Endocrinology - [address] [phone] Ariela Woods MD [address] [place] [phone] 10/18/2024 9:15 EST Telemedicine [facility] KAIAWHINA KOHANGA REO Pelvic Medicine and Reconstructive Surgery - Medical Office Building [facility] [address] [place] [address] Kelsy Fierro MD [address] [place] [address] Medical Office Building, [address] [phone] documented as of this encounter Visit Diagnoses Not on filedocumented in this encounter Care Teams Contracts Manager Relationship Specialty Start Date End Date Campos Lopes MD [address] [place] [address] PCP - General 05/21/09 documented as of this encounter
--- OUTSIDE RECORDS SUMMARY | 2024-10-09 11:22 | XMS_ITS | Encounter Summary ---
Author Organization [facility] Address [address] [place] [address] Care Team Providers Care Distance Learning Technician Name Role Phone Campos Lopes MD Primary Care Provider [phone] Reason for Visit * Reason Comments Thyroid Problem * Referral (Routine) - Closed Specialty Diagnoses / Procedures [facility]erred To Contact Endocrinology Diagnoses Hyperthyroidism Campos Lopes MD [address] [place] [address] Phone: tel: fax: [facility] Endocrinology [address] [address] Phone: tel: fax: Referral ID Status Reason Start Date Expiration Date Visits Re quested Visits Authorized [id number] Closed 1 1 Encounter Details Date Type Department Care Team (Late st Contact Info) Description 09/18/2019 14:20 EST Office Visit [facility] Endocrinology [address] [address] Obdulio Gray MD [address] [place] [address] Nontoxic multinodular goiter (Primary Dx); Fractures involving multiple body regions Social History Tobacco Use Types Packs/Day Years [...] - documented in this encounter Functional Status * [...] this encounter Patient Instructions * Patient Instructions* Obdulio Gray MD - 09/18/2019 14:20 EST Ctx AND PINP -> will call later with Instructions I will order thyroid uptake and scan with pretreatment given ? Iodine allergy You had a scan in 2009 that was consistent with Graves I can prescribe PTU for Graves, I would monitor liver function Re: osteoporosis, repeat DXA scan with TBS (at [facility]) Do 24h urine calcium locally - call us a week or so later to make sure we got the report documented in this encounter Progress Notes * Obdulio Gray MD - 09/18/2019 1420 EST 09/20/2019 NEW [...] was allergic to iodine though she had never been given iodine contrast agents. Looking through her chart I found out that she had reactive iodine uptake and scan in 2009. Her uptake was 39%, mildly elevated, in line with the possible diagnosis of Graves' disease. However, her thyrotropin receptor antibody was negative. Recently in February2019 her TSH is 0.01 units/mL, free T4 [...] she was here, that she was not herefor her thyroid, but she was here for her [...] find x-rays performed in December 2015 that reported possible nondisplaced fracture in the head of the middle phalanx of the fifth digit versus overlapping artifact from soft tissues, please correlate with any point tenderness- she reported a lot of tenderness also, old fracture at the base of the proximal phalanx of the fifth digit as well as diffuse osteopenia. She saw Dr. Campos Lopes for plantar fascitis, posterior tibial tendinitis, possible tenosynovitis of the thumbs. She was subsequently evaluated by rheumatology who reassured herthat there was no evidence of any inflammatory arthropathy or any systemic autoimmune condition. Findings were more compatible with OA and periarticular strain [...] Her behavior is normal. Judgment and thought contentnormal. ASSESSMENT 1. Nontoxic multinodular goiter THYROPEROXIDASE ANTIBODY [...] have a history of fractures in the spine,hip or even the forearm. Her bone density is normal. It is interesting that her T-scores are only -0.3 despite her age and osteopenia found on x-ray. [...] would be interesting if TBS can also beperformed during this repeat bone density I will ask my staff to look into these. We can check routine osteoporosis related lab work as well as markers of bone during our but I do not think that theywill be revealing. She does have a major risk factor for osteoporosis that should be addressed, diabetes the subclinical hyperthyroidism. 2. Regarding subclinical hyperthyroidism: The best next step will be radioactive iodine uptake and scan. I believe that her thyrotropin receptor antibody will be negative again but I am checking it again today. It is interesting that her TSHhas remained suppressed for such a long time while her free T4 has remained normal. 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 She understands the risk of cardiovascular disease. She was telling me that she has allergies to iodine, seafood. She had an iodine uptakeand scan in 2009 but despite that she would like to undergo pretreatment with prednisone. I told her that I cannot guarantee that she will not have any allergy reaction though I thought therisk of that is low. PLAN I told patient I would check bone turnover markers and that I needed to call the lab to find out how to order them. This may not be necessary if the bone density can be repeated. She understands thatMedicare may not pay for it - AT this time her CMP, vitamin D, phosphorus, PTH, thyrotropin receptor antibody, TPO antibody areall normal. -TSH, free T4, total T3 added on. If normal, will cancel reactive iodine uptake and scan. - She said that she would not have iodine uptake and scan unless she was pretreated. For that I recommend methylprednisolone 32 mg by mouth 12 hours and 2 hours before contrast media injection. 1 hour before the procedure, she can be given Benadryl 50 mg p.o. Obdulio Nichols MD 09/20/2019 10:47 * Enrrique Mojica - 09/18/2019 1420 EST NPatient had elevated blood pressure with machine (191/77), repeated blood pressure manually to verify. patient instructed that there was no need to inflate the cuff to 210mmHg during the reading andthat it was too tight. 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 Patient was upset. Documenting per supervisor stone and MD. documented in this encounter Plan of Treatment Upcoming Encounters Date Type Department Care Team (Late st Contact Info) Description 10/17/2024 10:20 EST Telemedicine [facility] Endocrinology - [address] [phone] Ariela Woods MD [address] [place] [phone] 10/18/2024 9:15 EST Telemedicine [facility] CARE TRANSPORT NURSE Pelvic Medicine and Reconstructive Surgery - Medical Office Building [facility] [address] [place] [phone] Kelsy Fierro MD [address] [place] [address] Medical Office Building, [address] [address] documented as of this encounter Results * COMPREHENSIVE METABOLIC PANEL (CMP) (09/18/2019 16:14 EST) Sodium 138 136 - 145 mEq/L 09/18/2019 18:35 EST [facility] Potassium 4.3 3.5 - 5.0 mEq/L 09/18/2019 18:35 [facility] Chloride 103 96 - 110 mEq/L 09/18/2019 18:35 [facility] CO2 Total 27 22 - 32 mEq/L 09/18/2019 18:35 [facility] Glucose 98 70 - 100 mg/dL 09/18/2019 18:35 [facility] BUN 21 10 - 26 mg/dL 09/18/2019 18:35 [facility] Creatinine 0.75 0.52 - 1.04 mg/dL 09/18/2019 18:35 [facility] eGFR 77 >60 mL/min/1.7 3m2 09/18/2019 18:35 [facility] Comment:eGFR calculated anya starr CKD-EPI equation for non- Americans. Multiply eGFR by 1.16 for patients. Total Protein 7.3 6.3 - 8.2 g/dL 09/18/2019 18:35 [facility] Albumin 4.6 3.4 - 4.9 g/dL 09/18/2019 18:35 [facility] Alkaline Phosphatase 75 38 - 126 U/L 09/18/2019 18:35 [facility] AST 25 15 - 46 U/L 09/18/2019 18:35 [facility] ALT 17 <35 U/L 09/18/2019 18:35 [facility] Bilirubin, Total 0.7 <1.4 mg/dL 09/18/20 19 18:35 [facility] Calcium 9.8 8.5 - 10.5 mg/dL 09/18/2019 18:35 [facility] Calculated Calcium 9.3 8.5 - 10.5 mg/dL 09/18/2019 18:35 [facility] Blood VENOUS BLOOD / Unknown Venipuncture / Unknown 09/18/2019 16:14 EST 09/18/2019 16:15 EST Obdulio Nichols MD CHEMISTRY & BLOOD GA S ORDERABLES Final Result [facility] [address] [place] [address] * VITAMIN D (25,OH) (09/18/2019 16:14 EST) 25OH Vitamin D Tot 32.1 30.0 - 100.0 ng/mL 09/19/2019 10:52 EST [facility] Comment: Vitamin D 25,OH Interpretive Ranges: Deficiency: ??<10.0 ng/mL Insufficiency: ??10.0 - 30.0 ng/mL Sufficiency: ??30.0 - 100.0 ng/mL Toxicity: ??>100.0 ng/mL Blood VENOUS BLOOD / Unknown Venipuncture / Unknown 09/18/2019 16:14 EST 09/18/2019 16:15 EST Obdulio Nichols MD CHEMISTRY & BLOOD GA S ORDERABLES Final Result [facility] [address] [place] [address] * PHOSPHORUS (09/18/2019 16:14 EST) Phosphorus 3.9 2.5 - 4.5 mg/dL 09/18/2019 18:35 EST [facility] Blood VENOUS BLOOD / Unknown Venipuncture / Unknown 09/18/2019 16:14 EST 09/18/2019 16:15 EST Obdulio Nichols MD CHEMISTRY & BLOOD GA S ORDERABLES Final Result [facility] [address] [place] [address] * PTH INTACT (09/18/2019 16:14 EST) Intact PTH 39 19 - 88 pg/mL 09/19/2019 12:07 EST [facility] Blood VENOUS BLOOD / Unknown Venipuncture / Unknown 09/18/2019 16:14 EST 09/18/2019 16:15 EST Obdulio Nichols MD CHEMISTRY & BLOOD GA S ORDERABLES Final Result Performing Organization Address City/[facility]/ZIP Co de Phone Number [facility] [address] [place] [address] * THYROTROPIN RECEPTOR ANTIBODY (09/18/2019 16:14 EST) Thyrotropin Receptor Ab, S <1.00 0.00 - 1.75 IU/L 09/19/2019 17:15 EST [facility] Comment: ADDITIONAL INFORMATION At a decision limit of 1.75 IU/L, this assay has 97% sensitivity and 99% specificity for detection of Graves' disease. In healthy individuals and in patients with thyroid disease without diagnosis of Graves' disease, the upper limit of anti-TSHR values are 1.22 IU/L and 1.58 IU/L, respectively (97.5th percentiles). Test Performed by: [facility] [address] [place] [id number] [address] Turner: Wero Mariano M.D. Ph.D.; CLIA# [id number] Blood VENOUS BLOOD / Unknown Venipuncture / Unknown 09/18/2019 16:14 EST 09/18/2019 16:15 EST Obdulio Nichols MD CHEMISTRY & BLOOD GA S ORDERABLES Final Result Performing Organization Address City/[facility]/ZIP Co de Phone Number [facility] [address] [place] [address] * THYROPEROXIDASE ANTIBODY (09/18/2019 16:14 EST) Thyroperoxidase Ab <28 <=60 U/mL 2018 11:06 EST [facility] Blood VENOUS BLOOD / Unknown Venipuncture / Unknown 09/18/2019 16:14 EST 09/18/2019 16:15 EST Obdulio Nichols MD CHEMISTRY & BLOOD GA S ORDERABLES Final Result [facility] [address] [place] [address] documented in this encounter Visit Diagnoses Diagnosis Nontoxic multinodular goiter- Primary Fractures involving multiple body regions Closed fracture of unspecified bone documented in this encounter Historical Medications * This list may reflect changes made after this encounter. ranitidine (ZANTAC) 150 mg tablet Take 150 mg by mouth daily before breakfast. 0 09/14/2019 02/17/2021 added in this encounter Care Teams Distance Learning Technician Relationship Specialty Start Date End Date Campos Lopes MD [address] [place] [address] PCP - General 05/21/09 documented as of this encounter
--- OUTSIDE RECORDS SUMMARY | 2024-10-09 11:22 | XMS_ITS | Encounter Summary ---
Author Organization [facility] Address [address] [place] [address] Care Team Providers Care Clinical Science Liaison Name Role Phone Campos Lopes MD Primary Care Provider [phone] Encounter Details Date Type Department Care Team (Late st Contact Info) Description 11/11/2020 Documentation Visit [facility] Gastroenterology - [facility] [address] [place], [place] [phone] Alan Milton MD [address] [facility], [address] [place] [address] Social History Tobacco Use Types [...] documented in this encounter Progress Notes * Roslyn Nunez - 11/11/2020 0956 EST Pre-op anes JAZIEL Valadez called to let GI know that pt told her on the pre-op call that no one had called her to schedule covid test. Per GI conversation with covid home care scheduler Gisela, [facility] [place] [facility] [place] [facility], Gisela will call [...] Description 10/17/2024 10:20 EST Telemedicine [facility] Endocrinology - [address] [address] Ariela Woods MD [address] [phone] 10/18/2024 9:15 EST Telemedicine [facility] JAVA DEVELOPMENT TEAM LEAD Pelvic Medicine and Reconstructive Surgery - Medical Office [address] [phone] Kelsy Fierro MD [address] [place] [address] Medical Office [facility], [address] [phone] documented as of this encounter Visit Diagnoses Not on filedocumented in this encounter Care Teams Clinical Science Liaison Relationship Specialty Start Date End Date Campos oLpes MD [address] [place] [address] PCP - General 05/21/09 documented as of this encounter
--- OUTSIDE RECORDS SUMMARY | 2024-10-09 11:22 | XMS_ITS | Encounter Summary ---
Author Organization [facility] Address [address] [place] [address] Care Team Providers Care Bridge Saw Operator Name Role Phone Campos Lopes MD Primary Care Provider [phone] Reason for Visit * Reason Onset Date Comments Labs Only 09/20/2019 results Encounter Details Date Type Department Care Team (Late st Contact Info) Description 09/20/2019 Telephone [facility] Endocrinology - [address] [address] Obdulio Gray MD [address] [place] [address] Labs Only (results) Social History Tobacco Use Types Packs/Day Years [...] encounter Miscellaneous Notes * Telephone Encounter - Efe Butler RN - 09/21/2019 0921 EST Calling patient 09/21/19 9:[address] Mitchell's message : Specialized test that procedure The two tests that go to [facility] Per patient, had received a call from [...] patient's MyChart. Provided the phone number : [phone]. Calling patient back 09/21/19 9:38 Patient informed to call [phone] so they can walk her through the process of reactivating MyChart. EFE GARCIA RN 09/21/2019 9:41 * Telephone Encounter - Obdulio Gray MD - 09/20/2019 [...] better to order months down the road. * Telephone Encounter - Lisa Carrasco - 09/20/2019 1422 [...] Info) Description 10/17/2024 10:20 EST Telemedicine [facility] Endocrinology - [address] [phone] Ariela Woods MD [address] [place] [address] [place] [phone] 10/18/2024 9:15 EST Telemedicine [facility] WEIR FISHER Pelvic Medicine and Reconstructive Surgery - Medical Office Building [facility] [address] [place] [address] Kelsy Fierro MD 2 [facility] Medical Office Building, [address] [place] [phone] documented as of this encounter Visit Diagnoses Not on filedocumented in this encounter Care Teams Bridge Saw Operator Relationship Specialty Start Date End Date Campos Lopes MD [address] [place] [address] PCP - General 05/21/09 documented as of this encounter
--- OUTSIDE RECORDS SUMMARY | 2024-10-09 11:22 | XMS_ITS | Encounter Summary ---
Author Organization [facility] Address [address] [place] [address] Care Team Providers Care Records Assistant Name Role Phone Campos Lopes MD Primary Care Provider [phone] Encounter Details Date Type Department Care Team (Late st Contact Info) Description 02/12/2020 Lab Requisition [facility] Pathology & Laboratory Medicine - [facility] [address] [place] [address] Outr Resulting Lab, Provider Social History Tobacco [...] [facility] Endocrinology - [facility] [address] [place], [place] [phone] Ariela Woods MD [address] [facility] [address] [place] [phone] 10/18/2024 9:15 EST Telemedicine [facility] CAN MARKER Pelvic Medicine and Reconstructive Surgery - Medical Office Building [facility] [address] [place] [address] Kelsy Fierro MD 2 [facility], [address] [phone] documented as of this encounter Procedures Procedure Name Priority Date/Time Associated Diagnosis Comments T3, TOTAL Routine 02/11/2020 10:45 EDT THYROID ANTIBODIES Routine 02/11/2020 10 :45 EDT documented in this encounter Results * (ABNORMAL) T3, TOTAL (02/11/2020 10:45 EDT) T3, Total 223(H) 97 - 169 ng/dL 02/12/2020 16:36 EDT [facility] Blood VENOUS BLOOD / Unknown 02/11/2020 10:45 EDT 02/12/2020 15:41 EDT us Provider Outr Resulting Lab CHEMISTRY & BLOOD GA S ORDERABLES Final Result [facility] [address] [place] [address] * THYROID ANTIBODIES (02/11/2020 10:45 EDT) Anti-Thyroglobulin <15 <=60 U/mL 2019 9:47 EDT [facility] Thyroperoxidase Ab <28 <=60 U/mL 2019 9:47 EDT [facility] Blood VENOUS BLOOD / Unknown 02/11/2020 10:45 EDT 02/12/2020 15:41 EDT us Provider Outr Resulting Lab CHEMISTRY & BLOOD GA S ORDERABLES Final Result [facility] [address] [place] [address] documented in this encounter Visit Diagnoses Not on filedocumented in this encounter Care Teams Records Assistant Relationship Specialty Start Date End Date Campos Lopes MD [address] [place] [address] PCP - General 05/21/09 documented as of this encounter
--- OUTSIDE RECORDS SUMMARY | 2024-10-09 11:22 | XMS_ITS | Encounter Summary ---
Author Organization [facility] Address [address] [place] [address] Care Team Providers Care Hospice Nurse Name Role Phone Campos Lopes MD Primary Care Provider [phone] Encounter Details Date Type Department Care Team (Late st Contact Info) Description 09/03/2020 Lab Requisition [facility] Pathology & Laboratory Medicine - [facility] [address] [place] [address] Outr Resulting Lab, Provider Social History Tobacco [...] Contact Info) Description 10/17/2024 10:20 EST Telemedicine [facility] Endocrinology - [facility] [address] [place], [place] [phone] Ariela Woods MD [address] [facility] [address] [place] [phone] 10/18/2024 9:15 EST Telemedicine [facility] AREA COUNSELOR Pelvic Medicine and Reconstructive Surgery - Medical Office Building [facility] [address] [place] [address] Kelsy Fierro MD [address] [place] [address] Medical Office [facility], [address] [place] [phone] documented as of this encounter Visit Diagnoses Not on filedocumented in this encounter Care Teams Hospice Nurse Relationship Specialty Start Date End Date Campos Lopes MD [address] [place], [place] [phone] PCP - General 05/21/09 documented as of this encounter
--- OUTSIDE RECORDS SUMMARY | 2024-10-09 11:22 | XMS_ITS | Encounter Summary ---
Author Organization [facility] Address [address] [place] [address] Care Team Providers Care Parachute Harness Rigger Name Role Phone Campos Lopes MD Primary Care Provider [phone] Reason for Visit * Reason Onset Date Comments Results 09/21/2019 Encounter Details Date Type Department Care Team (Late st Contact Info) Description 09/21/2019 Telephone [facility] Endocrinology - [address] [phone] Lola Brewster RN Results Social History Tobacco Use Types [...] Telephone Encounter - Lola Brewster RN - 09/21/2019 0812 EST Called pt [...] on the uptake and scan to be ableto better plan for the procedure since she lives in [place] and will need to manage travel time and/or accommodations. Patient verbalized understanding. No barriers to learning noted. Lola Brewster RN Endocrinology documented in this encounter Plan of Treatment Upcoming Encounters Date Type Department Care Team (Late st Contact Info) Description 10/17/2024 10:20 EST Telemedicine [facility] Endocrinology - [address] [address] Ariela Woods MD [address] [place] [phone] 10/18/2024 9:15 EST Telemedicine [facility] WHEAT COMBINE DRIVER Pelvic Medicine and Reconstructive Surgery - Medical Office Building [facility] [address] [place] [address] Kelsy Fierro MD 2 [facility] Medical Office Building, [address] [place] [phone] documented as of this encounter Visit Diagnoses Not on filedocumented in this encounter Care Teams Parachute Harness Rigger Relationship Specialty Start Date End Date Campos Lopes MD [address] [place] [address] PCP - General 05/21/09 documented as of this encounter
--- OUTSIDE RECORDS SUMMARY | 2024-10-09 11:22 | XMS_ITS | Encounter Summary ---
Author Organization [facility] Address [address] [place] [address] Care Team Providers Care Health Safety Instructor Name Role Phone Campos Lopes MD Primary Care Provider [phone] Reason for Visit * Reason Onset Date Comments Appointment Related 11/19/2019 Encounter Details Date Type Department Care Team (Late st Contact Info) Description 11/19/2019 Telephone [facility] Endocrinology - [address] [phone] Danny Blakely, RN Appointment Related Social History Tobacco Use [...] encounter Miscellaneous Notes * Telephone Encounter - Danny Blakely, RN - 11/19/2019 1436 EST Called and spoke with pt to discuss upcoming NM uptake and scan. Pt informed me that she would be unable to have testing done at the time scheduled and would need to reschedule. Pt given number to NMscheduling and was told that she would be contacted 2 weeks prior to NM uptake and scan. documented in this encounter Plan of Treatment Upcoming Encounters Date Type Department Care Team (Late st Contact Info) Description 10/17/2024 10:20 EST Telemedicine [facility] Endocrinology - [address] [phone] Ariela Woods MD [address] [phone] 10/18/2024 9:15 EST Telemedicine [facility] VERIFY REP Pelvic Medicine and Reconstructive Surgery - Medical Office [address] [phone] Kelsy Fierro MD [address] [place] [address] Office [facility], [address] [phone] documented as of this encounter Visit Diagnoses Not on filedocumented in this encounter Care Teams Health Safety Instructor Relationship Specialty Start Date End Date Campos Lopes MD [address] [place] [address] PCP - General 05/21/09 documented as of this encounter
--- OUTSIDE RECORDS SUMMARY | 2024-10-09 11:22 | XMS_ITS | Encounter Summary ---
Author Organization [facility] Address [address] [place] [address] Care Team Providers Care Alcohol And Drug Counselor Name Role Phone Campos Lopes MD Primary Care Provider [phone] Encounter Details Date Type Department Care Team (Latest Contact Info) Description 11/11/2020 8:30 EST - 11/11/2020 23:59 EST Hospital Encounter [facility] Pre-Surgical Testing [address] [place], [place] [phone] Discharge Disposition: Home or Self Care Social [...] documented in this encounter Progress Notes * Fifi Rodriguez RN - 11/11/2020 0830 EST [...] instruct them to call us back at [phone] to report symptoms (If patient is in [...] and get a phone update from the surgeonor remain in the surgical waiting area for an in person update from the surgeon in one of our consult rooms ??? Once they have been updated by [...] PACU) documented in this encounter OR Notes * Preprocedure Instructions - Fifi Rodriguez RN - [...] 8 hours as needed for Pain. As directedby endoscopy losartan (COZAAR) 25 mg tablet Take [...] Contact Info) Description 10/17/2024 10:20 EST Telemedicine [facility] Endocrinology - [address] [address] Ariela Woods MD [address] [phone] 10/18/2024 9:15 EST Telemedicine [facility] SOLOIST DANCER Pelvic Medicine and Reconstructive Surgery - Medical Office Building [address] [address] Kelsy Fierro MD [address] [place] [address] Medical Office [facility], [address] [place] [address] documented as of this encounter Visit Diagnoses Not on filedocumented in this encounter Discontinued Medications Medication Sig Discontinue Reason Start Date End Da te PANTOPRAZOLE SODIUM (PROTONIX ORAL) Take by mouth daily. Therapy completed 11/11/2020 documented as of this encounter Historical Medications * This list may reflect changes made after this encounter. omeprazole (PRILOSEC) 20 mg capsule Take by mouth daily. Pt does know dose 02/17/2021 added in this encounter Care Teams Alcohol And Drug Counselor Relationship Specialty Start Date End Date Campos Lopes MD [address] [place] [address] PCP - General 05/21/09 documented as of this encounter
--- OUTSIDE RECORDS SUMMARY | 2024-10-09 11:22 | XMS_ITS | Encounter Summary ---
Author Organization [facility] Address [address] [place] [address] Care Team Providers Care Fnps Name Role Phone Campos Lopes MD Primary Care Provider [phone] Encounter Details Date Type Department Care Team (Late st Contact Info) Description 11/15/2019 Orders Only [facility] Endocrinology - [address] [phone] Obdulio Gray MD [address] [place] [address] Subclinical hyperthyroidism (Primary Dx) Social History Tobacco Use Types [...] Description 10/17/2024 10:20 EST Telemedicine [facility] Endocrinology - [facility] [address] [place] [address] Ariela Woods MD 62 [facility] [address] [place] [phone] 10/18/2024 9:15 EST Telemedicine [facility] ADVISER SALES Pelvic Medicine and Reconstructive Surgery - Medical Office Building [facility] [address] [place] [phone] Kelsy Fierro MD 2 [facility] Medical Office [facility], [address] [place] [phone] documented as of this encounter Visit Diagnoses Diagnosis Subclinical hyperthyroidism- Primary Thyrotoxicosis without mention of goiter or other cause, without mention of thyrotoxic crisis or storm documented in this encounter Care Teams Fnps Relationship Specialty Start Date End Date Campos Lopes MD [address] [place], [place] [phone] PCP - General 05/21/09 documented as of this encounter
--- OUTSIDE RECORDS SUMMARY | 2024-10-09 11:22 | XMS_ITS | Encounter Summary ---
Author Organization [facility] Address [address] [place] [address] Care Team Providers Care Hot Man Name Role Phone Campos Lopes MD Primary Care Provider Reason for Visit * Reason Onset Date Comments Appointment Related 11/29/2019 Encounter Details Date Type Department Care Team (Late st Contact Info) Description 11/29/2019 Telephone [facility] Endocrinology - [address] [phone] Danny Blakely, RN Appointment Related Social History [...] Telephone Encounter - Danny Blakely, RN - 11/29/2019 1148 EST Called and spoke with Nuc Med andverified that pt had not called and changed appt time for NM testing. Last conversation with pt she stated that she could do the appointment on 12/05/19 and she was given the [phone] number to call and reschedule, which she said she would do. documented in this encounter Plan of Treatment Upcoming Encounters Date Type Department Care Team (Late st Contact Info) Description 10/17/2024 10:20 EST Telemedicine [facility] Endocrinology - [facility] [address] [place], [place] [phone] Ariela Woods MD 62 [facility] [address] [place] [phone] 10/18/2024 9:15 EST Telemedicine [facility] WET FINISHER WOOL Pelvic Medicine and Reconstructive Surgery - Medical Office Building [facility] [address] [place] [address] Kelsy Fierro MD [address] [place] [address] Medical Office [facility], [address] [place] [phone] documented as of this encounter Visit Diagnoses Not on filedocumented in this encounter Care Teams Hot Man Relationship Specialty Start Date End Date Campos Lopes MD [address] [place] [address] PCP - General 05/21/09 documented as of this encounter
--- OUTSIDE RECORDS SUMMARY | 2024-10-09 11:22 | XMS_ITS | Encounter Summary ---
Author Organization [facility] Address [address] [place] [address] Care Team Providers Care Tick Inspector Name Role Phone Campos Lopes MD Primary Care Provider [phone] Encounter Details Date Type Department Care Team (Late st Contact Info) Description 12/10/2020 Orders Only [facility] Pulmonology & Critical Care - [facility] [address] [place], [place] [address] Quentin Kennedy MD 111 [facility], [address] 5 [place] [address] GALLEGO (dyspnea on exertion) (Primary Dx) Social History Tobacco Use Types [...] 10:20 EST Telemedicine [facility] Endocrinology - [facility] [address] [place] [address] Ariela Woods MD 62 [facility] [address] [place] [phone] 10/18/2024 9:15 EST Telemedicine [facility] PEDIATRIC LPN Pelvic Medicine and Reconstructive Surgery - Medical Office Building [address] [address] Kelsy Fierro MD [address] [place] [address] Medical Office [facility], [address] [place] [phone] documented as of this encounter Visit Diagnoses Diagnosis GALLEGO (dyspnea on exertion)- Primary Other dyspnea and respiratory abnormality documented in this encounter Care Teams Tick Inspector Relationship Specialty Start Date End Date Campos Lopes MD [address] [place] [address] PCP - General 05/21/09 documented as of this encounter
--- OUTSIDE RECORDS SUMMARY | 2024-10-09 11:22 | XMS_ITS | Encounter Summary ---
Author Organization [facility] Address [address] [place] [address] Care Team Providers Care Finished Yarn Examiner Name Role Phone Campos Lopes MD Primary Care Provider [phone] Encounter Details Date Type Department Care Team (Late st Contact Info) Description 11/13/2020 Lab Requisition [facility] Pathology & Laboratory Medicine - [facility] [address] [place] [address] Outr Resulting Lab, Provider Social History Tobacco [...] Contact Info) Description 10/17/2024 10:20 EST Telemedicine [facility] Endocrinology - [facility] [address] [place], [place] [phone] Ariela Wodos MD 62 [facility] [address] [place] [phone] 10/18/2024 9:15 EST Telemedicine [facility] HOUSE CARPENTER Pelvic Medicine and Reconstructive Surgery - Medical Office Building [facility] [address] [place] [address] Kelsy Fierro MD [address] [place] [address] Medical Office [facility], [address] [place] [phone] documented as of this encounter Procedures Procedure Name Priority Date/Time Associated Diagnosis Comments ZZCOVID-19 TEST [facility] PCR Today 11/13/2020 14:37 EST COVID-19 TESTING Routine 11/13/2020 14:3 7 EST documented in this encounter Results * COVID-19 TEST [facility] PCR (11/13/2020 14:37 EST) Swab ENTIRE NASOPHARYNX / Unknown 11/13/2020 14:37 EST 11/13/2020 22:18 EST us Provider Outr Resulting Lab MICROBIOLOGY - GENER AL ORDERABLES Final Result [facility] [address] [place] [address] * COVID-19 TESTING (11/13/2020 14:37 EST) COVID-19 rt-PCR Result Negative Negative 11/14/2020 14:00 EST [facility] Comment: This test has not [...] was performed using the silvia SARS-CoV-2 assay ([employer] on the Silvia 6800 System Performing Lab Silvia 6800 [facility] 11/14/2020 14:00 EST [facility] Swab 11/13/2020 14:3 7 EST 11/13/2020 22:18 EST us Provider Outr Resulting Lab MICROBIOLOGY - GENER AL ORDERABLES Final Result [facility] [address] [place] [address] documented in this encounter Visit Diagnoses Not on filedocumented in this encounter Care Teams Finished Yarn Examiner Relationship Specialty Start Date End Date Campos Lopes MD [address] [place] [address] PCP - General 05/21/09 documented as of this encounter
--- OUTSIDE RECORDS SUMMARY | 2024-10-09 11:22 | XMS_ITS | Encounter Summary ---
Author Organization [facility] Address [address] [place] [address] Care Team Providers Care Casino Host Name Role Phone Campos Lopes MD Primary Care Provider [phone] Reason for Visit * (Routine) - Receiving Office to Obtain Authorization Specialty Diagnoses / Procedures Referred By Lynnette osman Referred To Contact Procedures CT OUTSIDE IMAGES CHEST Unknown, Provider, MD Referral ID Status Reason Start Date Expiration Date Visits Requested Visits Authorized [id number] Receiving Office to Obtain Authorization 12/06/2020 1 1 Encounter Details Date Type Department Care Team (Latest Contact Info) Description 11/17/2020 - 11/17/2020 23:59 EST Hospital Encounter [facility] [place] Discharge Disposition: Home [...] Contact Info) Description 10/17/2024 10:20 EST Telemedicine [facility] Endocrinology - [address] [phone] Ariela Woods MD [address] [phone] 10/18/2024 9:15 EST Telemedicine [facility] DISCOTHEQUE DANCER Pelvic Medicine and Reconstructive Surgery - Medical Office [address] [address] Kelsy Fierro MD 2 [facility] Medical Office [facility], [address] [phone] documented as of this encounter Procedures Procedure Name Priority Date/Time Associated Diagnosis Comments CT OUTSIDE IMAGES CHEST Routine 12/06/2020 8:12 EST documented in this encounter Results * CT OUTSIDE IMAGES CHEST (12/06/2020 8:12 EST) Narrative 12/06/2020 8:12 EST This is a non-reportable exam. us Provider Unknown MD SAINI OTHER IMAGING ORDERABLES Final Result documented in this encounter Visit Diagnoses Not on filedocumented in this encounter Care Teams Casino Host Relationship Specialty Start Date End Date Campos Lopes MD [address] [place] [address] PCP - General 05/21/09 documented as of this encounter
--- OUTSIDE RECORDS SUMMARY | 2024-10-09 11:22 | XMS_ITS | Encounter Summary ---
Author Organization [facility] Address [address] [place] [address] Care Team Providers Care It Service Delivery Manager Name Role Phone Campos Lopes MD Primary Care Provider Reason for Visit * (Routine) - Receiving Office to Obtain Authorization Specialty Diagnoses / Procedures Referred By Lynnette osman Referred To Contact Procedures NM OUTSIDE IMAGES Unknown, Provider, MD Referral ID Status Reason Start Date Expiration Date Visits Requested Visits Authorized [id number] Receiving Office to Obtain Authorization 12/06/2020 1 1 Encounter Details Date Type Department Care Team (Latest Contact Info) Description 11/19/2020 Hospital Encounter [facility] [place] Discharge Disposition: Home [...] Contact Info) Description 10/17/2024 10:20 EST Telemedicine [facility] Endocrinology - [facility] [address] [place], [place] [phone] Ariela Woods MD 62 [facility] [address] [place] [phone] 10/18/2024 9:15 EST Telemedicine [facility] TIE PULLER Pelvic Medicine and Reconstructive Surgery - Medical Office Building [facility] [address] [place] [phone] Kelsy Fierro MD 2 [facility] Medical Office [facility], [address] [phone] documented as of this encounter Procedures Procedure Name Priority Date/Time Associated Diagnosis Comments NM OUTSIDE IMAGES Routine 12/06/2020 8:09 EST documented in this encounter Results * NM OUTSIDE IMAGES (12/06/2020 8:09 EST) Narrative 12/06/2020 8:09 EST This is a non-reportable exam. us Provider Unknown MD SAINI OTHER IMAGING ORDERABLES Final Result documented in this encounter Visit Diagnoses Not on filedocumented in this encounter Care Teams It Service Delivery Manager Relationship Specialty Start Date End Date Campos Lopes MD [address] [place] [address] PCP - General 05/21/09 documented as of this encounter
--- OUTSIDE RECORDS SUMMARY | 2024-10-09 11:22 | XMS_ITS | Encounter Summary ---
Author Organization [facility] Address [address] [place] [address] Care Team Providers Care Director Of Infection Control Name Role Phone Campos Lopes MD Primary Care Provider [phone] Encounter Details Date Type Department Care Team (Late st Contact Info) Description 02/25/2020 Lab Requisition [facility] Pathology & Laboratory Medicine - [facility] [address] [place] [address] Sammi Harp MD [address] [place] [phone] Encounter for other general examination Social History [...] Contact Info) Description 10/17/2024 10:20 EST Telemedicine [facility] Endocrinology - [facility] [address] [place] [address] Ariela Woods MD 62 [facility] [address] [place] [phone] 10/18/2024 9:15 EST Telemedicine [facility] RN FIELD Pelvic Medicine and Reconstructive Surgery - Medical Office Building [facility] [address] [place] [phone] Kelsy Fierro MD 2 [facility] Medical Office [facility], [address] [place] [phone] documented as of this encounter Procedures Procedure Name Priority Date/Time Associated Diagnosis Comments SURGICAL PATHOLOGY Today 02/25/2020 8: 45 EDT Encounter for other general examination documented in this encounter Results * SURGICAL PATHOLOGY (02/25/2020 8:45 EDT) Final Diagnosis A. DUODENUM, BIOPSY: - Small intestinal mucosa with no specific pathologic features. B. STOMACH, BODY, BIOPSY: - Gastric fundic mucosa with mild focal reactive (chemical) gastropathy. - Negative for Helicobacter pylori microorganisms on H&E stained sections. 02/26/2020 14:00 EDT [facility] at 1400 Attestation There was significant resident/fellow involvement in the diagnostic evaluation of this case. By the signature below, the attending physician certifies that they have personally conducted a gross and/or microscopic examination of the described specimens and rendered or confirmed the above diagnosis. 02/26/2020 14:00 EDT [facility] at 1400 Clinical History RUQ pain 02/26/2020 14:00 EDT [facility] Gross Description A. Received in formalin labelled with proper patient identification (initials E, B) and duodenum are 2 fragments of stuart soft tissue (0.2 x 0.2 x 0.2 cm and 0.4 x 0.2 x 0.2 cm). The specimen is entirely submitted in A1. B. Received in formalin labelled with proper patient identification (initials E, B) and gastric body is a single fragment of stuart soft tissue (0.5 x 0.2 x 0.2 cm). The specimen is entirely submitted in B1. Salena Alicia 02/25/2020 16:08 02/26/2020 14:00 EDT [facility] Resident/Juan Carlos w: Zach Enamorado MD 02/26/2020 14:00 EDT [facility] Scanned Images 02/26/2020 14:00 EDT [facility] Tissue SPECIMEN FROM STOMACH OBTAINED BY TOTAL GASTRECTOMY / Unknown 02/25/2020 8:45 EDT 02/25/2020 15:59 EDT Tissue specimen (specimen) SPECIMEN FROM STOMACH OBTAINED BY TOTAL GASTRECTOMY / Unknown 02/25/2020 8:45 EDT 02/25/2020 15:59 EDT us Sammi Harp MD PATHOLOGY ORDERABLES Final Resul t [facility] [address] [place] [address] documented in this encounter Visit Diagnoses Diagnosis Encounter for other general examination documented in this encounter Care Teams Director Of Infection Control Relationship Specialty Start Date End Date Campos Lopes MD [address] [place] [address] PCP - General 05/21/09 documented as of this encounter
--- OUTSIDE RECORDS SUMMARY | 2024-10-09 11:22 | XMS_ITS | Encounter Summary ---
Author Organization [facility] Address [address] [place] [address] Care Team Providers Care Fuel Cell Battery Technician Name Role Phone Campos Lopes MD Primary Care Provider [phone] Encounter Details Date Type Department Care Team ([facility] st Contact Info) Description 12/09/2020 Orders Only [facility] Gastroenterology - [facility] [address] [place], [place] [phone] Alan Milton MD 111 [facility], Level [address] [place] [address] Encounter for preprocedure screening laboratory [...] documented in this encounter Progress Notes * Arlene Duong RN - 12/09/2020 1216 EST Order placed for COVID testing prior to appointment on 02/03. ARLENE DUONG RN 12/12/2020 16:56 documented in this encounter Plan of Treatment Upcoming Encounters Date Type Department Care Team (Late st Contact Info) Description 10/17/2024 10:20 EST Telemedicine [facility] Endocrinology - [address] [phone] Ariela Woods MD 62 [facility] [address] [place] [phone] 10/18/2024 9:15 EST Telemedicine [facility] EVALUATION ASSISTANT Pelvic Medicine and Reconstructive Surgery - Medical Office [address] [phone] Kelsy Fierro MD 2 [facility] Medical Office [facility], [address] [phone] documented as of this encounter Visit Diagnoses Diagnosis Encounter for preprocedure screening laboratory testing for COVID-19- Primary documented in this encounter Care Teams Fuel Cell Battery Technician Relationship Specialty Start Date End Date Campos Lopes MD [address] [place], [place] [phone] PCP - General 05/21/09 documented as of this encounter
--- OUTSIDE RECORDS SUMMARY | 2024-10-09 11:22 | XMS_ITS | Encounter Summary ---
Author Organization [facility] Address [address] [place] [address] Care Team Providers Care Stationary Boiler Fireman Name Role Phone Campos Lopes MD Primary Care Provider [phone] Reason for Visit * Reason Onset Date Comments COVID-19 01/23/2021 Encounter Details Date Type Department Care Team (Late st Contact Info) Description 01/23/2021 Telephone [facility] - [facility] [address] [place] [address] Alan Milton MD 111 [facility], [facility], Level [address] [place] [address] COVID-19 Social History Tobacco Use [...] encounter Miscellaneous Notes * Telephone Encounter - Jamal Ho - 01/23/2021 1540 EDT Patient advised they would like covid testing done at [facility]. User Experience Lead faxed the order to [phone] and asked that they schedule the patient for testing on 01/31/21 or 01/30/21. Also made patient aware of testing dates and the need to quarantine after testing. User Experience Lead will also remove patient from the work queue. documented in this encounter Plan of Treatment Upcoming Encounters Date Type Department Care Team (Late st Contact Info) Description 10/17/2024 10:20 EST Telemedicine [facility] Endocrinology - [address] [address] Ariela Woods MD [address] [phone] 10/18/2024 9:15 EST Telemedicine [facility] MENTAL HEALTH PROGRAM DIRECTOR Pelvic Medicine and Reconstructive Surgery - Medical Office [address] [address] Kelsy Fierro MD [address] [place] [address] Medical Office [facility], [address] [place] [phone] documented as of this encounter Visit Diagnoses Not on filedocumented in this encounter Care Teams Stationary Boiler Fireman Relationship Specialty Start Date End Date Campos Lopes MD [address] [place] [address] PCP - General 05/21/09 documented as of this encounter
--- OUTSIDE RECORDS SUMMARY | 2024-10-09 11:22 | XMS_ITS | Encounter Summary ---
Author Organization [facility] Address [address] [place] [address] Care Team Providers Care Medical Cost Consultant Name Role Phone Campos Lopes MD Primary Care Provider [phone] Encounter Details Date Type Department Care Team (Late st Contact Info) Description 09/21/2019 Orders Only [facility] Radiology - [facility] [address] [place], [place] [phone] Wero Benavides MD 111 [facility], Level 1 [place] [address] Social History Tobacco Use Types [...] Info) Description 10/17/2024 10:20 EST Telemedicine [facility] Endocrinology - [facility] [address] [place] [address] Ariela Woods MD 62 [facility] [address] [place] [phone] 10/18/2024 9:15 EST Telemedicine [facility] SAMPLING THEORY TEACHER Pelvic Medicine and Reconstructive Surgery - Medical Office Building [facility] [address] [place], [place] [phone] Kelsy Fierro MD [address] [place] [address] Medical Office [facility], [address] [place] [phone] documented as of this encounter Visit Diagnoses Not on filedocumented in this encounter Care Teams Medical Cost Consultant Relationship Specialty Start Date End Date Campos Lopes MD [address] [place] [address] PCP - General 05/21/09 documented as of this encounter
--- OUTSIDE RECORDS SUMMARY | 2024-10-09 11:22 | XMS_ITS | Encounter Summary ---
Author Organization [facility] Address [address] [place] [address] Care Team Providers Care Educational Administration Teacher Name Role Phone Campos Lopes MD Primary Care Provider [phone] Encounter Details Date Type Department Care Team ([facility] st Contact Info) Description 10/07/2020 Orders Only [facility] Gastroenterology - [facility] [address] [place], [place] [phone] Alan Milton MD 111 [facility], Level 5 [place] [address] Encounter for preprocedure screening laboratory [...] Description 10/17/2024 10:20 EST Telemedicine [facility] Endocrinology - [facility] [address] [place], [place] [phone] Ariela Woods MD 62 [facility] [address] [place] [phone] 10/18/2024 9:15 EST Telemedicine [facility] COMPUTER HELP DESK SPECIALIST Pelvic Medicine and Reconstructive Surgery - Medical Office [address] [phone] Kelsy Fierro MD [address] [place] [address] [facility], [address] [place] [phone] documented as of this encounter Visit Diagnoses Diagnosis Encounter for preprocedure screening laboratory testing for COVID-19- Primary documented in this encounter Care Teams Educational Administration Teacher Relationship Specialty Start Date End Date Campos Lopes MD [address] [place] [address] PCP - General 05/21/09 documented as of this encounter
--- OUTSIDE RECORDS SUMMARY | 2024-10-09 11:22 | XMS_ITS | Encounter Summary ---
Author Organization [facility] Address [address] [place] [address] Care Team Providers Care Medical Insurance Coder Name Role Phone Campos Lopes MD Primary Care Provider [phone] Encounter Details Date Type Department Care Team (Late st Contact Info) Description 09/20/2019 Orders Only [facility] Radiology - [facility] [address] [place], [place] [phone] Wero Benavides MD 111 [facility], Level 1 [place] [address] Social History Tobacco Use Types [...] Contact Info) Description 10/17/2024 10:20 EST Telemedicine [facility] Endocrinology - [facility] [address] [place] [address] Ariela Woods MD 62 [facility] [address] [place] [phone] 10/18/2024 9:15 EST Telemedicine [facility] STAFFING ACCOUNT MANAGER Pelvic Medicine and Reconstructive Surgery - Medical Office Building [facility] [address] [place], [place] [phone] Kelsy Fierro MD [address] [place] [address] Medical Office [facility], [address] [place] [phone] documented as of this encounter Visit Diagnoses Not on filedocumented in this encounter Care Teams Medical Insurance Coder Relationship Specialty Start Date End Date Campos Lopes MD [address] [place] [address] PCP - General 05/21/09 documented as of this encounter
--- OUTSIDE RECORDS SUMMARY | 2024-10-09 11:22 | XMS_ITS | Encounter Summary ---
Author Organization [facility] Address [address] [place] [address] Care Team Providers Care Degreasing Solution Mixer Name Role Phone Campos Lopes MD Primary Care Provider [phone] Reason for Visit * Reason Onset Date Comments Other 11/14/2019 Encounter Details Date Type Department Care Team (Late st Contact Info) Description 11/14/2019 Telephone [facility] Endocrinology - [address] [address] Obdulio Gray MD [address] [place] [address] Other Social History Tobacco Use Types Packs/Day [...] Miscellaneous Notes * Telephone Encounter - Danny Blakely RN - 11/15/2019 1202 EST Called and spoke with Radiology scheduling and asked that they reach and schedule pt for Uptake andscan as soon as possible. Awaiting date and time to contact pt. * Telephone Encounter - Kelly Foreman - 11/15/2019 1142 EST As for the DXA Scan Medicare only covers the bone scan once every 24 months. Gave the RN team this information to relay to the patient. * Telephone Encounter - Obdulio Gray MD - 11/14/2019 1907 EST I called her I think all her questions were answered and she was happy with the plan As stated before, plan agreed upon is: 1. Kelly will find out if and when she can have her DXA scan performed at [facility] (reports last one done last summer) but the validity of it is [...] that I replied to Lola with the message I sent to Maureen on [employer]. Lola didn't call because she assumed she would have got the messageand I assumed that she would get the [...] repeated, she agrees with treating hyperthyroidism first (very likely to have a positive test) and doing bone turnover markers later and/or waiting for the bone density till the summer Thank you call HAMZAH documented in this encounter Plan of Treatment Upcoming Encounters Date Type Department Care Team (Late st Contact Info) Description 10/17/2024 10:20 EST Telemedicine [facility] Endocrinology - [facility] [address] [place], [place] [phone] Ariela Woods MD 62 [facility] [address] [place] [phone] 10/18/2024 9:15 EST Telemedicine [facility] GLASS DESIGNER Pelvic Medicine and Reconstructive Surgery - Medical Office Building [facility] [address] [place] [phone] Kelsy Fierro MD 2 [facility] Office [facility], [address] [phone] documented as of this encounter Visit Diagnoses Not on filedocumented in this encounter Care Teams Degreasing Solution Mixer Relationship Specialty Start Date End Date Campos Lopes MD [address] [place] [address] PCP - General 05/21/09 documented as of this encounter
--- OUTSIDE RECORDS SUMMARY | 2024-10-09 11:22 | XMS_ITS | Encounter Summary ---
Author Organization [facility] Address [address] [place] [address] Care Team Providers Care Soakers Supervisor Name Role Phone Campos Lopes MD Primary Care Provider [phone] Reason for Visit * Reason Onset Date Comments COVID-19 11/06/2020 Encounter Details Date Type Department Care Team (Late st Contact Info) Description 11/06/2020 Telephone [facility] [address] [place] [address] Alan Milton MD 111 [facility], Level 5 [place] [address] COVID-19 Social History Tobacco Use [...] encounter Miscellaneous Notes * Telephone Encounter - Gisela Lepe - 11/11/2020 0945 EST Pallavi called to check on pre-procedure COVID test scheduling - a fax was sent to [facility] on 11/06 but according to Sruthi at the facility, it was not received. Re-faxed order to Sruthi with notes to call PT as soon as possible to schedule between today and efore noon. * Telephone Encounter - Ros Cuellar - 11/06/2020 1306 EST Called patient to schedule COVID-19 testing. Requested a call back [phone]. This is our 1st attempt at contacting the patient. documented in this encounter Plan of Treatment Upcoming Encounters Date Type Department Care Team (Late st Contact Info) Description 10/17/2024 10:20 EST Telemedicine [facility] Endocrinology - [address] [phone] Ariela Woods MD [address] [place] [address] [place] [phone] 10/18/2024 9:15 EST Telemedicine [facility] HEAD BOYS GOLF COACH Pelvic Medicine and Reconstructive Surgery - Medical Office Building [facility] [address] [place] [phone] Kelsy Fierro MD 2 [facility] Medical Office Building, [address] [place] [phone] documented as of this encounter Visit Diagnoses Not on filedocumented in this encounter Care Teams Soakers Supervisor Relationship Specialty Start Date End Date Campos Lopes MD [address] [place] [address] PCP - General 05/21/09 documented as of this encounter
--- OUTSIDE RECORDS SUMMARY | 2024-10-09 11:22 | XMS_ITS | Encounter Summary ---
Author Organization [facility] Address [address] [place] [address] Care Team Providers Care Manager Of Internal Audit Name Role Phone Campos Lopes MD Primary Care Provider [phone] Reason for Visit * (Routine/Next Available) - Receiving Office to Obtain Authorization Specialty Diagnoses / Procedures Referred By Lynnette osman Referred To Contact Procedures CT OUTSIDE IMAGES CHEST Imaging, External Referral ID Status Reason Start Date Expiration Date Visits Requested Visits Authorized [id number] Receiving Office to Obtain Authorization 01/13/2023 1 1 Encounter Details Date Type Department Care Team (Latest Contact Info) Description 11/17/2020 0:05 EST - 11/17/2020 23:59 EST Hospital Encounter [facility] Secondary Reads [place] Discharge Disposition: Home [...] mg tablet MEDROL 4 MG TABS 07/08/2020 04/19/20 2 3 Multivitamins with Minerals tablet tablet [...] Contact Info) Description 10/17/2024 10:20 EST Telemedicine [facility] Endocrinology - [address] [address] Ariela Woods MD [address] [phone] 10/18/2024 9:15 EST Telemedicine [facility] LIBRARY SCIENCE PROFESSOR Pelvic Medicine and Reconstructive Surgery - Medical Office Building [address] [phone] Kelsy Fierro MD 2 [facility] Medical Office [facility], [address] [phone] documented as of this encounter Procedures Procedure Name Priority Date/Time Associated Diagnosis Comments CT OUTSIDE IMAGES CHEST Routine 11/17/2020 9:13 EST documented in this encounter Results * CT OUTSIDE IMAGES CHEST (11/17/2020 9:13 EST) Narrative 01/13/2023 9:13 EDT This is a non-reportable exam. us External Imaging IMG OTHER IMAGING ORDERABLES Fi nal Result documented in this encounter Visit Diagnoses Not on filedocumented in this encounter Care Teams Manager Of Internal Audit Relationship Specialty Start Date End Date Campos Lopes MD [address] [place] [address] PCP - General 05/21/09 documented as of this encounter
--- OUTSIDE RECORDS SUMMARY | 2024-10-09 11:22 | XMS_ITS | Encounter Summary ---
Author Organization [facility] Address [address] [place] [address] Care Team Providers Care Certified Adaptive Physical Educator Name Role Phone Campos Lopes MD Primary Care Provider [phone] Reason for Visit * Reason Onset Date Comments COVID-19 11/06/2020 Encounter Details Date Type Department Care Team (Late st Contact Info) Description 11/06/2020 Telephone [facility] [employer] [address] [place] [address] Alan Milton MD 111 [facility], Level 5 [place] [address] COVID-19 Social History Tobacco Use [...] encounter Miscellaneous Notes * Telephone Encounter - Carlton Monte - 11/06/2020 1326 EST Spoke with patient who advised that she would like to go to [facility] for covid testing between11/11 and 11/13 before 12:00pm for appointment on 11/18. [employer] faxed order to [facility]. documented in this encounter Plan of Treatment Upcoming Encounters Date Type Department Care Team (Late st Contact Info) Description 10/17/2024 10:20 EST Telemedicine [facility] Endocrinology - [address] [phone] Ariela Woods MD [address] [phone] 10/18/2024 9:15 EST Telemedicine [facility] DISTRICT AGENT Pelvic Medicine and Reconstructive Surgery - Medical Office [address] [phone] Kelsy Fierro MD [address] [place] [address] Medical Office [facility], [address] [phone] documented as of this encounter Visit Diagnoses Not on filedocumented in this encounter Care Teams Certified Adaptive Physical Educator Relationship Specialty Start Date End Date Campos Lopes MD [address] [place], [place] [phone] PCP - General 05/21/09 documented as of this encounter
--- OUTSIDE RECORDS SUMMARY | 2024-10-09 11:22 | XMS_ITS | Encounter Summary ---
Author Organization [facility] Address [address] [place] [address] Care Team Providers Care Creel Selector Name Role Phone Campos Lopes MD Primary Care Provider [phone] Encounter Details Date Type Department Care Team (Late st Contact Info) Description 02/21/2020 Lab Requisition [facility] [place] Pathology & Laboratory Medicine - [facility] [address] [place] [address] Outr Resulting Lab, Provider Social History Tobacco [...] Contact Info) Description 10/17/2024 10:20 EST Telemedicine [facility] [place] Endocrinology - [facility] [address] [place], [place] [phone] Ariela Woods MD 62 [facility] [address] [place] [phone] 10/18/2024 9:15 EST Telemedicine [facility] [place] CHOIR DIRECTOR Pelvic Medicine and Reconstructive Surgery - Medical Office Building [facility] [address] [place] [address] Kelsy Fierro MD [address] [place] [address], [address] [phone] documented as of this encounter Procedures Procedure Name Priority Date/Time Associated Diagnosis Comments DO NOT ORDER STANDALONE - BROAD COVID TEST Today 02/21/2020 11:43 EDT COVID-19 TESTING Routine 02/21/2020 11:4 3 EDT documented in this encounter Results * DO NOT ORDER STANDALONE - BROAD COVID TEST (02/21/2020 11:43 EDT) COVID-19 rt-PCR Result NEGATIVE Negative 02/22/2020 11:50 EDT [facility] Comment: 2019-novel Coronavirus (2019-nCoV) not detected by the qRT-PCR assay. Consider testing for other respiratory viruses or re-collecting for 2019-nCoV testing. Note: Optimum timing for peak viral levels during infections caused by 2019-nCoV have not been determined. Collection of multiple specimens from the same patient may be necessary to detect the virus. Limitations Positive results are indicative of active infection with SARS-CoV-2 but do not rule out bacterial infection or co-infection with other viruses. The agent detected may not be the definite cause of disease. In addition, detection of viral RNA may not indicate the presence of infectious virus or that SARS-CoV-2 is the causative agent for clinical symptoms. Negative results do not preclude SARS-CoV-2 infection and should not be used as the sole basis for patient management decisions. Negative results must be combined with clinical observations, patient history, and epidemiological information. False negative results may also occur if amplification inhibitors are present in the specimen or if inadequate numbers of organisms are present in the specimen. Optimum specimen types and timing for peak viral levels during infections caused by SARS-CoV-2 have not been fully determined. Collection of multiple specimens (types and time points) from the same patient may be necessary to detect the virus. The test was validated for use with upper respiratory specimens obtained via nasopharyngeal or oropharyngeal swabs in VTM, UTM, M4, M5, M6, saline, and MTM media. The performance of this test has not been established for other specimens. Specimens collected using other FDA recommended Specimen Collection Materials listed in the FDA COVID-19 [employer] communication (January 03, 2020) are processed with the caveat that they were not [...] in accordance with CLIA regulations, College [employer] (CAP) guidelines (Dec 27, 2019), and FDA guidance (Dec 08, 2019). This test is only for use under the Food and Drug Administration's Emergency Use Authorization. Swab ENTIRE NASOPHARYNX / Unknown 02/21/2020 11:43 EDT 02/21/2020 15:50 EDT us Provider Outr Resulting Lab MICROBIOLOGY - GENER AL ORDERABLES Final Result [facility] [place], [place] * COVID-19 TESTING (02/21/2020 11:43 EDT) COVID-19 rt-PCR Result NEGATIVE Negative 02/22/2020 15:03 EDT [facility] Comment: 2019-novel Coronavirus (2019-nCoV) not detected by the qRT-PCR assay. Consider testing for other respiratory viruses or re-collecting for 2019-nCoV testing. Note: Optimum timing for peak viral levels during infections caused by 2019-nCoV have not been determined. Collection of multiple specimens from the same patient may be necessary to detect the virus. Limitations Positive results are indicative of active infection with SARS-CoV-2 but do not rule out bacterial infection or co-infection with other viruses. The agent detected may not be the definite cause of disease. In addition, detection of viral RNA may not indicate the presence of infectious virus or that SARS-CoV-2 is the causative agent for clinical symptoms. Negative results do not preclude SARS-CoV-2 infection and should not be used as the sole basis for patient management decisions. Negative results must be combined with clinical observations, patient history, and epidemiological information. False negative results may also occur if amplification inhibitors are present in the specimen or if inadequate numbers of organisms are present in the specimen. Optimum specimen types and timing for peak viral levels during infections caused by SARS-CoV-2 have not been fully determined. Collection of multiple specimens (types and time points) from the same patient may be necessary to detect the virus. The test was validated for use with upper respiratory specimens obtained via nasopharyngeal or oropharyngeal swabs in VTM, UTM, M4, M5, M6, saline, and MTM media. The performance of this test has not been established for other specimens. Specimens collected using other FDA recommended Specimen Collection Materials listed in the FDA COVID-19 [employer] communication (January 03, 2020) are processed with the caveat that they were not [...] in accordance with CLIA regulations, College of [employer] (CAP) guidelines (Dec 27, 2019), and FDA guidance (Dec 08, 2019). This test is only for use under the Food and Drug Administration's Emergency Use Authorization. Performing Lab [facility] 02/22/2020 15:03 EDT [facility] Swab ENTIRE NASOPHARYNX / Unknown 02/21/2020 11:43 EDT 02/21/2020 15:50 EDT us Provider Outr Resulting Lab MICROBIOLOGY - GENER AL ORDERABLES Final Result Performing Organization Address City/State/[facility] Co de Phone Number [facility] [address] [place] [address] [facility] [place], [place] documented in this encounter Visit Diagnoses Not on filedocumented in this encounter Care Teams Creel Selector Relationship Specialty Start Date End Date Campos Lopes MD [address] [place] [address] PCP - General 05/21/09 documented as of this encounter
--- OUTSIDE RECORDS SUMMARY | 2024-10-09 11:23 | XMS_ITS | Encounter Summary ---
Author Organization [facility] Address [address] [place] [address] Care Team Providers Care Supervisor Rides Name Role Phone Campos Lopes MD Primary Care Provider [phone] Reason for Visit * Reason Onset Date Comments Appointment Related 07/07/2017 Encounter Details Date Type Department Care Team (Late st Contact Info) Description 07/07/2017 Telephone [facility] Rheumatology & Immunology - [facility] [address] [place], [place] [phone] Christina Borden RN Appointment Related Social History Tobacco Use [...] or shopping? Answer Date of Assessment Author No 01/05/2017 13:58 EDT documented as of this encounter Mental Status * Because of a physical, mental, or emotional condition, does this person have serious difficulty concentrating, remembering, or making decisions? Answer Entry Date Author No 01/05/2017 13:58 EDT documented in this encounter Miscellaneous Notes * Telephone Encounter - Christina Borden, RN - 07/07/2017 1129 EDT Spoke with patient. She had called patient advocacy because she had tried calling to set up a NPV in Rheumatology and was on hold for a while. She was very upset about having to be on hold. I discussed the patients case with her. Joint pain, no swelling. Abnormal inflammatory markers. I have bookedher to be seen on Tuesday07/11/17 at 0900am. Patient will arrive 15 min early. She will have PCP faxover note and labs. Patient pleased with appt for Tuesday. documented in this encounter Plan of Treatment Upcoming Encounters Date Type Department Care Team (Late st Contact Info) Description 10/17/2024 10:20 EST Telemedicine [facility] Endocrinology - [address] [address] Ariela Woods MD 62 [facility] [address] [place] [phone] 10/18/2024 9:15 EST Telemedicine [facility] LEASING COORDINATOR Pelvic Medicine and Reconstructive Surgery - Medical Office [address] [phone] Kelsy Fierro MD 792 [facility] Office [facility], [address] [phone] documented as of this encounter Visit Diagnoses Not on filedocumented in this encounter Care Teams Supervisor Rides Relationship Specialty Start Date End Date Campos Lopes MD [address] [place], [place] [phone] PCP - General 05/21/09 documented as of this encounter
--- OUTSIDE RECORDS SUMMARY | 2024-10-09 11:23 | XMS_ITS | Encounter Summary ---
Author Organization [facility] Address [address] [place] [address] Care Team Providers Care Switchboard Operator Assistant Name Role Phone Campos Lopes MD Primary Care Provider [phone] Reason for Referral * PT/OT/ST (Routine) - Closed Specialty Diagnoses / Procedures [facility] Referred To Contact Diagnoses Chronic pain of both shoulders Zandra Suárez MD Phone: tel: fax: Referral ID Status Reason Start Date Expiration Date V isits Requested Visits Authorized [id number] Closed Specialty Services Required 07/11/2017 1 1 Question Answer Reason for Request: Bilateral shoulder pain Reason for Visit * Reason Comments Joint Pain Encounter Details Date Type Department Care Team (Late st Contact Info) Description 07/11/2017 9:00 EDT Office Visit [facility] Rheumatology & Immunology - [address] [address] Zandra Suárez MD [address] [place] [address], [address] [place] [address] Arthralgia, unspecified joint (Primary Dx); Primary osteoarthritis involving multiple joints; Tendinitis, de Quervain's; Chronic pain of both shoulders Discharge Disposition: Auto Discharge Social History Tobacco Use Types Packs/Day Years [...] 07/11/2017 9:19 EDT documented in this encounter Discharge Diagnoses Diagnosis M25.50 Pain in unspecified joint-M25.50[ICD-10-CM] M15.0 Primary generalized (osteo)arthritis-M15.0[ICD-10-CM] M65.4 Radial styloid tenosynovitis [de Quervain]-M65.4[ICD-10-CM] M25.511 Pain in right shoulder-M25.511[ICD-10-CM] G89.29 Other chronic pain-G89.29[ICD-10-CM] M25.512 Pain in left shoulder-M25.512[ICD-10-CM] documented in this encounter Patient Instructions * Patient Instructions* Zandra Suárez MD - 07/11/2017 9:00 EDT I do not see any evidence of any systemic autoimmune disorders or inflammatory conditions at this time. Your current aches appear to be from a combination of Osteoarthritis and tendon strain - mild rotator cuff syndrome at shoulders, osteoarthritis at small joints of your hands and base of right thumb,strain of tendons at the base of right [...] Discharge documented in this encounter Progress Notes * Zandra Suárez MD - 07/11/2017 0900 EDT DIVISION OF RHEUMATOLOGY AND CLINICAL IMMUNOLOGY CONSULT NOTE Date of Service: 07/11/2017 Patient seen in consultation at the request of Campos Lopes MD for rheumatologic evaluation forarthralgias. Chief Complaint Patient presents with ??? Joint Pain HISTORY OF PRESENT ILLNESS: Ms. Maureen Thomas is a 77 y.o. woman with h/o interstitial cystitis, asthma, multinodular goiter and osteopenia who presents today for rheumatologic evaluation for arthralgias. She complains of joint aches since the past 6 months. Her symptoms started with aches over bilateral hands that occurred after activities like lifting weights. No associated joint swelling, redness or warmth. These aches usually resolve on their own. She then developed right foot pain (in arch of foot) since the past 4 months. She reports that she was evaluated elsewhere was diagnosed with posteri or tibial tendinitis and was referred to physical [...] neck pain, skin rashes, skin photosensitivity, skin psoriasis, oral ulcerations, lymphadenopathy, fevers, chills, weight changes, dyspnea, cough, pleurisy, chestpains, palpitations, abdominal pain, diarrhea, hematuria or raynaud's [...] time. 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 TOLTERODINE TARTRATE (DETROL ORAL) [...] as on the radial aspect of right wrist.June's test is positive. No synovitis or effusion. [...] physician's office: DsDNA: Normal Blakely antibody: Normal CLIP BOLTER AND WRAPPER antibody: Normal ScL 70 antibody: Normal Barbie 1 antibody: Normal SSA/SSB: Normal Imaging: IMPRESSION / PLAN: Ms. Maureen Thomas is a 77 y.o. woman with arthralgias. No evidence of inflammatory changes onexamination. She was reassured that I do not [...] of your hands and base of right thumb,strain of tendons at the base of right [...] documentation was created using voice recognition software. Study Abroad Coordinator errors may be present. documented in this encounter Plan of Treatment Upcoming Encounters Date Type Department Care Team (Late st Contact Info) Description 10/17/2024 10:20 EST Telemedicine [facility] Endocrinology - [facility] [address] [place] [address] Ariela Woods MD 62 [facility] [address] [place] [phone] 10/18/2024 9:15 EST Telemedicine [facility] BLANKING MACHINE OPERATOR Pelvic Medicine and Reconstructive Surgery - Medical Office Building [facility] [address] [place] [id number] Kelsy Fierro MD [address] [place] [address] Medical Office [facility], [address] [place] [phone] Scheduled Referrals Name Type Priority Associated Diagnoses Orde r Schedule AMB CONS/FOLLOW UP PHYSICAL THERAPY Outpatient Referral Routine Chronic pain of both shoulders Ordered: 07/11/2017 documented as of this encounter Visit Diagnoses Diagnosis Arthralgia, unspecified joint- Primary Primary osteoarthritis involving multiple joints Tendinitis, de Quervain's Radial styloid tenosynovitis Chronic pain of both shoulders Pain in joint, shoulder region documented in this encounter Discontinued Medications Medication Sig Discontinue Reason Start Date End Da te tiotropium (SPIRIVA WITH HANDIHALER) 18 mcg inhalation capsule Inhale 18 mcg as directed daily. Reported on 01/05/2017 Discontinued by another clinician 07/11/2017 mirabegron 25 mg tablet extended release 24 hrIndications:Frequen cy of urination Take 25 mg by mouth daily Discontinued by another clinician 12/30/2014 07/11/2017 TOLTERODINE TARTRATE (DETROL ORAL) Take by mouth. Reported on 01/05/2017 Discontinued by another clinician 07/11/2017 documented as of this encounter Historical Medications * This list may reflect changes made after this encounter. PANTOPRAZOLE SODIUM (PROTONIX ORAL) Take by mouth daily. 11/11/2020 added in this encounter Care Teams Switchboard Operator Assistant Relationship Specialty Start Date End Date Campos Lopes MD [address] [place] [address] PCP - General 05/21/09 documented as of this encounter
--- OUTSIDE RECORDS SUMMARY | 2024-10-09 11:23 | XMS_ITS | Encounter Summary ---
Author Organization [facility] Address [address] [place] [address] Care Team Providers Care Sterilizer Operator Name Role Phone Campos Lopes MD Primary Care Provider [phone] Reason for Referral * Radiology Services (Routine) - Closed Specialty Diagnoses / Procedures Referred By Lynnette osman Referred To Contact Diagnoses Closed nondisplaced fracture of proximal phalanx of left little finger, initial encounter Procedures HAND 3 OR MORE VIEWS Godwin Carney Phone: tel: fax: Referral ID Status Reason Start Date Expiration Date Visits Re quested Visits Authorized [id number] Closed 06/23/2016 1 1 Encounter Details Date Type Department Care Team (Late st Contact Info) Description 06/23/2016 Orders Only [facility] Hand & Upper Extremity Program - [place] [address] Gareth Dill MD [address] [place] [address] Closed nondisplaced fracture of proximal phalanx of left little finger, initial encounter (Primary Dx) Social History Tobacco Use Types [...] as of this encounter Plan of Treatment Upcoming Encounters Date Type Department Care Team (Late st Contact Info) Description 10/17/2024 10:20 EST Telemedicine [facility] Endocrinology - [facility] [address] [place] [address] Ariela Woods MD 62 [facility] [address] [place] [address] 10/18/2024 9:15 EST Telemedicine [facility] FLIGHT RADIO OPERATOR Pelvic Medicine and Reconstructive Surgery - Medical Office Building [facility] [address] [place] [address] Kelsy Fierro MD [address] [place] [address] Medical Office [facility], [address] [phone] documented as of this encounter Procedures Procedure Name Priority Date/Time Associated Diagnosis Comments HAND 3 OR MORE VIEWS Routine 06/23/2016 13:16 EDT Closed nondisplaced fracture of proximal phalanx of left little finger, initial encounter documented in this encounter Results * HAND 3 OR MORE VIEWS (06/23/2016 13:16 EDT) Anatomical Region Laterality Modality Other 06/23/2016 13:1 6 EDT 06/23/2016 17:23 EDT Narrative 06/23/2016 17:23 EDT HAND 3 OR MORE VIEWS ??06/23/2016 1:16 PM Clinical History/Comments: S62.647A-Nondisplaced fracture of proximal phalanx of left little finger, initial encounter for closed [id number]; Proximal phalanx fracture of left 5th finger COMPARISON: Outside left hand radiographs January 04, 2016 FINDINGS: PA, oblique, and lateral views of the left hand demonstrate posterior ulnar angulation of the proximal phalanx of the 5th digit which is due to old trauma.. No old fracture is visualized at the head of the middle phalanx of the 5th digit. There is subtle irregularity at the 5th PIP joint which may reflect remote intra-articular extension of the old proximal phalanx fracture. The remaining joint spaces are unremarkable. There is significant sclerosis of the distal scaphoid likely reflecting degenerative change. Moderate DJD at the trapezio scaphoid joint. There appears to be slight progression of joint space narrowing in the interim. Impression: 1. No sequela of fracture ??identified at the head of the middle phalanx of the 5th digit 2. Deformity of the proximal phalanx of the 5th digit is likely reflective of remote trauma I have personally reviewed the exam images and authored minor changes to the report. ?? I have personally reviewed the images and the above interpretation and agree with the findings. Procedure Note Jaye Adkins MD - 06/23/2016 HAND 3 OR MORE VIEWS 06/23/2016 1:16 PM Clinical History/Comments: S62.647A-Nondisplaced fracture of proximal phalanx of left little finger, initial encounter for closed [id number]; Proximal phalanx fracture of left 5th finger COMPARISON: Outside left hand radiographs January 04, 2016 FINDINGS: PA, oblique, and lateral views of the left hand demonstrate posterior ulnar angulation of the proximal phalanx of the 5th digit which is due to old trauma.. No old fracture is visualized at the head of the middle phalanx of the 5th digit. There is subtle irregularity at the 5th PIP joint which may reflect remote intra-articular extension of the old proximal phalanx fracture. The remaining joint spaces are unremarkable. There is significant sclerosis of the distal scaphoid likely reflecting degenerative change. Moderate DJD at the trapezio scaphoid joint. There appears to be slight progression of joint space narrowing in the interim. Impression: 1. No sequela of fracture identified at the head of the middle phalanx of the 5th digit 2. Deformity of the proximal phalanx of the 5th digit is likely reflective of remote trauma I have personally reviewed the exam images and authored minor changes to the report. I have personally reviewed the images and the above interpretation and agree with the findings. Godwin Carney IMG DIAGNOSTIC IMAGING ORDERABL ES Final Result documented in this encounter Visit Diagnoses Diagnosis Closed nondisplaced fracture of proximal phalanx of left little finger, initial encounter- Primary documented in this encounter Care Teams Sterilizer Operator Relationship Specialty Start Date End Date Campos Lopes MD [address] [place] [address] PCP - General 05/21/09 documented as of this encounter
--- OUTSIDE RECORDS SUMMARY | 2024-10-09 11:23 | XMS_ITS | Encounter Summary ---
Author Organization [facility] Address [address] [place] [address] Care Team Providers Care Production Checker Name Role Phone Campos Lopes MD Primary Care Provider [phone] Reason for Visit * Reason Onset Date Comments Other 12/15/2018 Encounter Details Date Type Department Care Team (Late st Contact Info) Description 12/15/2018 Telephone [facility] Gastroenterology - [address] [address] Assoc, [facility], MBBS Other Social History [...] * Telephone Encounter - Roslyn Nunez - 12/15/2018 1210 EST Pt called - she indicated someone from our office called her today. She does not want to schedule anything here with us and to not call her anymore. documented in this encounter Plan of Treatment Upcoming Encounters Date Type Department Care Team (Late st Contact Info) Description 10/17/2024 10:20 EST Telemedicine [facility] Endocrinology - [facility] [address] [place], [place] [phone] Ariela Woods MD 62 [facility] [address] [place] [phone] 10/18/2024 9:15 EST Telemedicine [facility] DIE OUT WORKER Pelvic Medicine and Reconstructive Surgery - Medical Office Building [facility] [address] [place] [phone] Kelsy Fierro MD [address] [place] [address] Medical Office [facility], [address] [place] [phone] documented as of this encounter Visit Diagnoses Not on filedocumented in this encounter Care Teams Production Checker Relationship Specialty Start Date End Date Campos Lopes MD [address] [place] [address] PCP - General 05/21/09 documented as of this encounter
--- OUTSIDE RECORDS SUMMARY | 2024-10-09 11:23 | XMS_ITS | Encounter Summary ---
Author Organization [facility] Address [address] [place] [address] Care Team Providers Care Doughnut Machine Operator Name Role Phone Campos Lopes MD Primary Care Provider [phone] Encounter Details Date Type Department Care Team (Late Contact Info) Description 04/17/[address] [facility] Pulmonology & Critical Care - [facility] [address] [place], [place] [phone] Chio Porras RN Dyspnea (Primary Dx) Social History Tobacco Use Types [...] Telemedicine [facility] Endocrinology - [facility] [address] [place] [address] Ariela Woods MD 62 [facility] [address] [place] [address] 10/18/2024 9:[address] [facility] WEB SERVICES MANAGER Pelvic Medicine and Reconstructive Surgery - Medical Office Building [facility] [address] [place], [place] [address] Kelsy Fierro MD 2 [facility] Medical Office Building, [address] [place] [address] documented as of this encounter Visit Diagnoses Diagnosis Dyspnea- Primary Other dyspnea and respiratory abnormality documented in this encounter Care Teams Doughnut Machine Operator Relationship Specialty Start Date End Date Campos Lopes MD [address] [place], [place] [phone] PCP - General 05/21/09 documented as of this encounter
--- OUTSIDE RECORDS SUMMARY | 2024-10-09 11:23 | XMS_ITS | Encounter Summary ---
Author Organization [facility] Address [address] [place] [address] Care Team Providers Care Keyboarding Teacher Name Role Phone Campos Lopes MD Primary Care Provider [phone] Encounter Details Date Type Department Care Team (Late Contact Info) Description 08/23/2014 Results Only [facility] Laboratory Services - [address] [phone] Wero Leone MD Social History Tobacco Use Types Packs/Day Years [...] Contact Info) Description 10/17/2024 10:20 EST Telemedicine [facility] Endocrinology - [facility] [address] [facility] [place] [address] Ariela Woods MD 62 [facility] [address] [place] [address] 10/18/2024 9:15 EST Telemedicine [facility] TRASH MAN Pelvic Medicine and Reconstructive Surgery - Medical Office Building [facility] [address] [place] [address] Kelsy Fierro MD 2 [facility] Medical Office [facility], [address] [phone] documented as of this encounter Procedures Procedure Name Priority Date/Time Associated Diagnosis Comments SURGICAL PATHOLOGY Routine 08/23/2014 10 :45 EST documented in this encounter Results * SURGICAL PATHOLOGY (08/23/2014 10:45 EST) Pathology Report: SURGICAL PATHOLOGY REPORT Reports generated via electronic interface contain original data; however they are lacking the format of the original report. Caution should be taken when reading/interpret ing unformatted reports. Name: ? MAUREEN BAEZ ? Accession #: ? [id number] ? : ? 1940 (Age: 74) ??F ? Collect Date: ? 08/23/2014 ? Location: ? [facility] ? Receive Date: ? 08/24/2014 ? Provider: WERO LEONE MD Copy to: ? Final Pathologic Diagnosis: A. ENDOCERVIX/LOWER UTERINE SEGMENT, POLYP, POLYPECTOMY: - ??Fragments of benign endometrial polyp(s) with focal cystic atrophy. - ??No cytologic atypia. B. [...] confirmed the above diagnosis. Specimen(s) Received: A. ?Endocervical polyp B. ?Endometrial curettings (scant tissue recovered) Clinical History: A. Might be an endometrial polyp; 2 small fragments of tissue believed to represent the stalk of the polyp; postmenopausal bleeding; large cervical polyp on preop exam Gross Description: A. ?Received in formalin labelled with proper patient identification [...] B. ?Received in formalin labelled with proper patient identification (initials E, B) and endometrial curettings, scant tissue removed is an aggregate of stuart-red tissue fragments (0.6 x 0.4 x 0.2 cm). Submitted in toto in B1. Sruthi Vega 08/26/2014 08:13 AM End of Report [facility] 08/23/2014 10:4 5 EST 08/24/2014 10:45 EST us Wero Leone MD PATHOLOGY ORDERABLES Final Res ult [facility] [address] [place] [address] documented in this encounter Visit Diagnoses Not on filedocumented in this encounter Care Teams Keyboarding Teacher Relationship Specialty Start Date End Date Campos Lopes MD [address] [place] [address] PCP - General 05/21/09 documented as of this encounter
--- OUTSIDE RECORDS SUMMARY | 2024-10-09 11:23 | XMS_ITS | Encounter Summary ---
Author Organization [facility] Address [address] [place] [address] Care Team Providers Care Paper Goods Machine Operator Name Role Phone Campos Lopes MD Primary Care Provider [phone] Reason for Visit * Reason Onset Date Comments Chronic Obstructive Pulmonary Disease 04/08/2014 New Patient Visit 04/08/2014 Encounter Details Date Type Department Care Team (Late st Contact Info) Description 04/08/2014 Telephone [facility] Pulmonology & Critical Care - [address] [address] Self, Referral Chronic Obstructive Pulmonary Disease; New Patient Visit Social History Tobacco Use [...] documented as of this encounter Miscellaneous Notes * Telephone Encounter - Harshal Porras RN - 04/08/2014 7079 EDT Ms. Thomas referred to pulmonary by Dr Lopes. Patient has been scheduled with Dr Moulton on 04-15-14, pt and referring office have been notified of the appt. HARSHAL PORRAS RN * Telephone Encounter - Brandi Lazo - 04/08/2014 1100 EDT Patient's pcp 's office calling to refer patient for COPD and will fax notes to [phone]. Please call pcp with a date and time. Thanks * Telephone Encounter - Brandi Lazo - 04/08/2014 0937 EDT Patient would like a call from a nurse regarding coming in as she has severe COPD. 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 Patient would like to discuss bronchial thermo plasy as well. Patient had pft's last week at [facility] (37%) Patient would like a call today. Thanks documented in this encounter Plan of Treatment Upcoming Encounters Date Type Department Care Team (Late st Contact Info) Description 10/17/2024 10:20 EST Telemedicine [facility] Endocrinology - [facility] [address] [place], [place] [phone] Ariela Woods MD [address] [place] [address] [place] [phone] 10/18/2024 9:15 EST Telemedicine [facility] BOOK PACKER Pelvic Medicine and Reconstructive Surgery - Medical Office Building [facility] [address] [place] [phone] Kelsy Fierro MD 2 [facility] Office [facility], [address] [place] [phone] documented as of this encounter Visit Diagnoses Not on filedocumented in this encounter Care Teams Paper Goods Machine Operator Relationship Specialty Start Date End Date Campos Lopes MD [address] [place], [place] [phone] PCP - General 05/21/09 documented as of this encounter
--- OUTSIDE RECORDS SUMMARY | 2024-10-09 11:23 | XMS_ITS | Encounter Summary ---
Author Organization [facility] Address [address] [place] [address] Care Team Providers Care Correctional Program Specialist Name Role Phone Campos Lopes MD Primary Care Provider [phone] Encounter Details Date Type Department Care Team (Late st Contact Info) Description 04/17/2014 Orders Only [facility] Sleep Program - [address] [address] Tushar Moulton MD [address] [place], [place] [phone] Dyspnea (Primary Dx) Social History Tobacco Use [...] EST Telemedicine [facility] Endocrinology - [facility] [address] [place] [address] Ariela Woods MD 62 [facility] [address] [place] [address] 10/18/2024 9:15 EST Telemedicine [facility] SOCIAL WORKER CLINICAL Pelvic Medicine and Reconstructive Surgery - Medical Office Building [facility] [address] [place] [address] Kelsy Fierro MD [address] [place] [address] Medical Office [facility], [address] [phone] documented as of this encounter Visit Diagnoses Diagnosis Dyspnea- Primary Other dyspnea and respiratory abnormality documented in this encounter Care Teams Correctional Program Specialist Relationship Specialty Start Date End Date Campos Lopes MD [address] [place], [place] [phone] PCP - General 05/21/09 documented as of this encounter
--- OUTSIDE RECORDS SUMMARY | 2024-10-09 11:23 | XMS_ITS | Encounter Summary ---
Author Organization [facility] Address [address] [place] [address] Care Team Providers Care Field Examiner Name Role Phone Campos Lopes MD Primary Care Provider [phone] Reason for Visit * Reason Onset Date Comments Appointment Related 03/14/2015 Encounter Details Date Type Department Care Team (Late st Contact Info) Description 03/14/2015 Telephone [facility] Surgical Oncology - [facility] [address] [place], [place] [phone] Tye Navarro MD 111 [facility], Level 2 [place] [address] Appointment Related Social History Tobacco Use Types [...] encounter Miscellaneous Notes * Telephone Encounter - Wanda Frazier - 03/14/2015 1347 EDT Left message on machine to have patient call back to reschedule. * Telephone Encounter - Brandi Lazo - 03/14/2015 1217 EDT Pt will need to reschedule the 03/14/15 appt. documented in this encounter Plan of Treatment Upcoming Encounters Date Type Department Care Team (Late st Contact Info) Description 10/17/2024 10:20 EST Telemedicine [facility] Endocrinology - [facility] [address] [place], [place] [phone] Ariela Woods MD 62 [facility] [address] [place] [phone] 10/18/2024 9:15 EST Telemedicine [facility] CAT CRACKER OPERATOR Pelvic Medicine and Reconstructive Surgery - Medical Office Building [facility] [address] [place] [phone] Kelsy Fierro MD [address] [place] [address] Medical Office [facility], [address] [place] [phone] documented as of this encounter Visit Diagnoses Not on filedocumented in this encounter Care Teams Field Examiner Relationship Specialty Start Date End Date Campos Lopes MD [address] [place] [address] PCP - General 05/21/09 documented as of this encounter
--- OUTSIDE RECORDS SUMMARY | 2024-10-09 11:23 | XMS_ITS | Encounter Summary ---
Author Organization [facility] Address [address] [place] [address] Care Team Providers Care Cleaner Greaser Name Role Phone Campos Lopes MD Primary Care Provider [phone] Encounter Details Date Type Department Care Team (Late st Contact Info) Description 01/07/2016 Results Only Imaging [facility]- [facility] [phone] Shruthi Hussein MD [address] [place] [phone] Social History Tobacco Use Types Packs/Day Years [...] Contact Info) Description 10/17/2024 10:20 EST Telemedicine [facility] Endocrinology - [facility] [address] [place], [place] [phone] Ariela Woods MD 62 [facility] [address] [place] [address] 10/18/2024 9:15 EST Telemedicine [facility] WAITRESS Pelvic Medicine and Reconstructive Surgery - Medical Office Building [facility] [address] [place] [address] Kelsy Fierro MD 2 [facility] Medical Office Building, [address] [place] [phone] Pending Results Name Type Priority Associated Diagnoses Date /Time OUTSIDE IMAGES - CT CHEST Imaging 01/07/2016 10:16 EDT OUTSIDE IMAGES - CT CHEST Imaging 01/07/2016 12:27 EDT OUTSIDE IMAGES - CT CHEST Imaging 01/07/2016 16:50 EDT documented as of this encounter Procedures Procedure Name Priority Date/Time Associated Diagnosis Comments SECONDARY READ CHEST CT 01/07/2016 12:25 EDT documented in this encounter Results * SECONDARY READ CHEST CT (01/07/2016 12:25 EDT) Anatomical Region Laterality Modality Other 01/07/2016 12:2 5 EDT 01/07/2016 16:00 EDT Narrative 01/07/2016 16:00 EDT SECONDARY READ CHEST CT ??01/07/2016 12:25 PM Clinical History/Comments: See scanned sheet. Technique: CT of the chest performed at [facility] on 01/06/2016. IV contrast was not administered. Images reformatted at 1.25 mm were obtained from the lower neck through the upper abdomen. Comparison: 06/30/2015 and 10/14/2014. Findings: Lower neck: Mild thyroid enlargement and heterogeneity. Chest wall soft tissues: No abnormalities. Mediastinum and nile: No enlarged mediastinal or hilar lymph nodes. ? Heart and mediastinal vasculature: ??Small focal calcified plaque of the LAD coronary artery. Large airways: ??Mildly thickened. Lungs: ??A solitary nodule of solid attenuation with a small central lucency is present in the medial portion of the posterior basal segment of the left lower lobe (image 255), maximum average dimension approximately 5 mm. ??Inferior to this there is a cluster of small nodules ranging in size from 1-2 mm with the largest nodule (solid, well-circumscribed) measuring approximately 3-4 mm. ??All of these abnormalities appear similar compared to the prior examinations, although of note the 06/30/2015 examination is performed at a maximum collimation of 2.5 mm, and the examination from 10/14/2014 is performed with a maximum collimation of 5 mm. ??No new nodules are identified. Pleura: No abnormalities. Upper abdomen (limited to upper abdomen, not optimized for abdominal imaging): There is a small hiatal hernia. Bones: ??No significant abnormalities. Impression: Several nodules are present in the left lower lobe. ??These appear grossly similar compared to the prior examination, however the technique employed for those examinations is not appropriate for followup of small pulmonary nodules (typically this should be performed at 1 mm or less collimation with small [id number]-[id number]). ?? Typically, in a smoker or former smoker, per Fleischner Society recommendations, the following followup imaging sequence should be performed for a nodule ranging between 4 and 6 mm: Initial followup CT at six to 12 months and at 18 to 24 months if no change. ??Since this examination is at reasonable collimation, consider followup in approximately one year to ascertain stability. This report differs significantly from the outside report. Procedure Note Satish Crespo MD - 01/07/[address] 01/07/2016 12:25 PM Clinical History/Comments: See scanned sheet. Technique: CT of the chest performed at [facility] on 01/06/2016. IV contrast was not administered. Images reformatted at 1.25 mm were obtained from the lower neck through the upper abdomen. Comparison: 06/30/2015 and 10/14/2014. Findings: Lower neck: Mild thyroid enlargement and heterogeneity. Chest wall soft tissues: No abnormalities. Mediastinum and nile: No enlarged mediastinal or hilar lymph nodes. Heart and mediastinal vasculature: Small focal calcified plaque of the LAD coronary artery. Large airways: Mildly thickened. Lungs: A solitary nodule of solid attenuation with a small central lucency is present in the medial portion of the posterior basal segment of the left lower lobe (image 255), maximum average dimension approximately 5 mm. Inferior to this there is a cluster of small nodules ranging in size from 1-2 mm with the largest nodule (solid, well-circumscribed) measuring approximately 3-4 mm. All of these abnormalities appear similar compared to the prior examinations, although of note the 06/30/2015 examination is performed at a maximum collimation of 2.5 mm, and the examination from 10/14/2014 is performed with a maximum collimation of 5 mm. No new nodules are identified. Pleura: No abnormalities. Upper abdomen (limited to upper abdomen, not optimized for abdominal imaging): There is a small hiatal hernia. Bones: No significant abnormalities. Impression: Several nodules are present in the left lower lobe. These appear grossly similar compared to the prior examination, however the technique employed for those examinations is not appropriate for followup of small pulmonary nodules (typically this should be performed at 1 mm or less collimation with small [id number]). Typically, in a smoker or former smoker, per Fleischner Society recommendations, the following followup imaging sequence should be performed for a nodule ranging between 4 and 6 mm: Initial followup CT at six to 12 months and at 18 to 24 months if no change. Since this examination is at reasonable collimation, consider followup in approximately one year to ascertain stability. This report differs significantly from the outside report. us Shruthi Hussein MD IMG OTHER IMAGING ORDERAB LES Final Result documented in this encounter Visit Diagnoses Not on filedocumented in this encounter Care Teams Cleaner Greaser Relationship Specialty Start Date End Date Campos Lopes MD [address] [place] [address] PCP - General 05/21/09 documented as of this encounter
--- OUTSIDE RECORDS SUMMARY | 2024-10-09 11:23 | XMS_ITS | Encounter Summary ---
Author Organization [facility] Address [address] [place] [address] Care Team Providers Care Bilingual Teacher Aide Name Role Phone Campos Lopes MD Primary Care Provider [phone] Reason for Visit * Reason Onset Date Comments Follow-up Diagnostic PSG 01/29/2015 Encounter Details Date Type Department Care Team (Late st Contact Info) Description 01/29/2015 Telephone [facility] Urology - Medical Office Building [address] [place] [address], [address] [place], [place] [phone] Adalberto Carey MD 111 [facility], [address] [place] [address] Follow-up Diagnostic PSG Social History Tobacco Use Types Packs/Day Years [...] encounter Miscellaneous Notes * Telephone Encounter - BernicejazzmineLinsey - 01/29/2015 1645 EDT I spoke with pt 01/28 concerning surgery, I also spoke with Macey to see if would do asurgery procedure. Waiting to hear back from Macey. Surgery is cystoscopy. hydrodistension , possible Bladder biopsy, urethral dilation documented in this encounter Plan of Treatment Upcoming Encounters Date Type Department Care Team (Late st Contact Info) Description 10/17/2024 10:20 EST Telemedicine [facility] Endocrinology - [facility] [address] [place], [place] [phone] Ariela Woods MD 62 [facility] [address] [place] [phone] 10/18/2024 9:15 EST Telemedicine [facility] SYNCHRO ASSEMBLER Pelvic Medicine and Reconstructive Surgery - Medical Office Building [facility] [address] [place] [phone] Kelsy Fierro MD [address] [place] [address] Medical Office [facility], [address] [place] [phone] documented as of this encounter Visit Diagnoses Not on filedocumented in this encounter Care Teams Bilingual Teacher Aide Relationship Specialty Start Date End Date Campos Lopes MD [address] [place], [place] [phone] PCP - General 05/21/09 documented as of this encounter
--- OUTSIDE RECORDS SUMMARY | 2024-10-09 11:23 | XMS_ITS | Encounter Summary ---
Author Organization [facility] Address [address] [place] [address] Care Team Providers Care Keg Varnisher Name Role Phone Campos Lopes MD Primary Care Provider [phone] Reason for Visit * Reason Onset Date Comments Appointment Related 12/11/2018 Encounter Details Date Type Department Care Team ([facility] st Contact Info) Description 12/11/2018 Telephone [facility] Gastroenterology - [facility] [address] [place] [address] Juliane Hanks, RN Appointment Related Social History Tobacco Use [...] Miscellaneous Notes * Telephone Encounter - Juliane Hanks, RN - 12/11/2018 1357 EST Called patient to discuss referral for [...] case , she would like a consultation first.Dr Lopes's office was called . They will [...] Info) Description 10/17/2024 10:20 EST Telemedicine [facility] Endocrinology - [address] [address] Ariela Woods MD [address] [place] [phone] 10/18/2024 9:15 EST Telemedicine [facility] INDUCTION COORDINATION POWER ENGINEER Pelvic Medicine and Reconstructive Surgery - Medical Office [address] [phone] Kelsy Fierro MD [address] [place] [address] Medical Office [facility], [address] [phone] documented as of this encounter Visit Diagnoses Not on filedocumented in this encounter Care Teams Keg Varnisher Relationship Specialty Start Date End Date Campos Lopes MD [address] [place] [address] PCP - General 05/21/09 documented as of this encounter
--- OUTSIDE RECORDS SUMMARY | 2024-10-09 11:23 | XMS_ITS | Encounter Summary ---
Author Organization [facility] Address [address] [place] [address] Care Team Providers Care Foreman Shipping Department Name Role Phone Campos Lopes MD Primary Care Provider [phone] Reason for Visit * Reason Onset Date Comments Other 10/28/2014 Encounter Details Date Type Department Care Team (Late Contact Info) Description 10/28/2014 Telephone [facility] Surgical Oncology - [facility] [address] [place] [address] Deepti Olea, RN [address] [place] [address] Other Social History Tobacco Use Types Packs/Day [...] encounter Miscellaneous Notes * Telephone Encounter - Deepti Olea - 10/28/2014 1047 EST Spoke to Maureen ,she is cancelling today due to weather. DEEPTI OLEA, RN documented in this encounter Plan of Treatment Upcoming Encounters Date Type Department Care Team (Late Contact Info) Description 10/17/2024 10:20 EST Telemedicine [facility] Endocrinology - [facility] [address] [place], [place] [phone] Ariela Woods MD 62 [facility] [address] [place] [phone] 10/18/2024 9:15 EST Telemedicine [facility] MACHINE PULLER Pelvic Medicine and Reconstructive Surgery - Medical Office Building [facility] [address] [place], [place] [address] Kelsy Fierro MD 2 [facility] Office [facility], [address] [place] [phone] documented as of this encounter Visit Diagnoses Not on filedocumented in this encounter Care Teams Foreman Shipping Department Relationship Specialty Start Date End Date Campos Lopes MD [address] [place] [address] PCP - General 05/21/09 documented as of this encounter
--- OUTSIDE RECORDS SUMMARY | 2024-10-09 11:23 | XMS_ITS | Encounter Summary ---
Author Organization [facility] Address [address] [place] [address] Care Team Providers Care Attending Psychiatrist Name Role Phone Campos Lopes MD Primary Care Provider [phone] Encounter Details Date Type Department Care Team (Latest Contact Info) Description 06/10/2015 11:08 EDT - 06/10/2015 23:59 EDT Hospital Encounter [facility] - [address] [address] Unknown, Provider, Discharge Disposition: Home or Self Care Social [...] mg by mouth daily before breakfast. 01/26/2023 estradiol (ESTRACE) 0.01 % (0.1 mg/g) vaginal cream Place vaginally. Per vagina 2 x weekly 1 Tube 11 06/29/2011 01/26/2023 fluticasone-salm eterol (ADVAIR HFA) 230-21 mcg/actuation inhaler Inhale 2 Puffs as directed 2 times daily . 01/26/2023 ibuprofen (MOTRIN) 200 mg tablet Take 4 Tablets by mouth every 8 hours as needed for Pain. 04/14/2023 mirabegron 25 mg tablet extended release 24 hrIndications:Fr equency of urination Take 25 mg by mouth daily 30 Tab 11 12/30/2014 07/11/2017 tiotropium (SPIRIVA WITH HANDIHALER) 18 mcg inhalation capsule Inhale 18 mcg as directed daily. Reported on 01/05/2017 07/11/2017 TOLTERODINE TARTRATE (DETROL ORAL) Take by mouth. Reported on 01/05/2017 07/11/2017 documented as of this encounter Discharge Disposition Disposition Code Departure Means Destination Home or Self Detention documented in this encounter Plan of Treatment Upcoming Encounters Date Type Department Care Team (Late st Contact Info) Description 10/17/2024 10:20 EST Telemedicine [facility] Endocrinology - [facility] [address] [place], [place] [phone] Ariela Woods MD [address] [phone] 10/18/2024 9:15 EST Telemedicine [facility] COMBAT RIFLE CREWMEMBER Pelvic Medicine and Reconstructive Surgery - Medical Office Building [facility] [address] [place] [phone] Kelsy Fierro MD [address] [place] [address] Medical Office [facility] [address], [address] [phone] documented as of this encounter Visit Diagnoses Not on filedocumented in this encounter Care Teams Attending Psychiatrist Relationship Specialty Start Date End Date Campos Lopes MD [address] [place] [address] PCP - General 05/21/09 documented as of this encounter
--- OUTSIDE RECORDS SUMMARY | 2024-10-09 11:23 | XMS_ITS | Encounter Summary ---
Author Organization [facility] Address [address] [place] [address] Care Team Providers Care Pad Cutter Name Role Phone Campos Lopes MD Primary Care Provider [phone] Encounter Details Date Type Department Care Team (Late Contact Info) Description 10/16/2013 Orders Only [facility] Urology [address] [place] [address] Kayla Hernandez, JAZIEL Urinary frequency (Primary Dx) Social History Tobacco Use Types [...] 10/17/2024 10:20 EST Telemedicine [facility] Endocrinology - [facility] [address] [place] [address] Ariela Woods MD 62 [facility] [address] [place] [address] 10/18/2024 9:15 EST Telemedicine [facility] RAILROAD PASSENGER AGENT Pelvic Medicine and Reconstructive Surgery - Medical Office Building [facility] [address] [place] [address] Kelsy Fierro MD 2 [facility] [address] [place] [phone] documented as of this encounter Visit Diagnoses Diagnosis Urinary frequency- Primary documented in this encounter Care Teams Pad Cutter Relationship Specialty Start Date End Date Campos Lopes MD [address] [place], [place] [phone] PCP - General 05/21/09 documented as of this encounter
--- OUTSIDE RECORDS SUMMARY | 2024-10-09 11:23 | XMS_ITS | Encounter Summary ---
Author Organization [facility] Address [address] [place] [address] Care Team Providers Care Artificial Breast Fabricator Name Role Phone Campos Lopes MD Primary Care Provider [phone] Encounter Details Date Type Department Care Team (Late st Contact Info) Description 06/10/2015 Results Only [facility]- [facility] [phone] Campos Lopes MD [address] [place] [address] Social History Tobacco Use Types Packs/Day Years [...] Telemedicine [facility] Endocrinology - [facility] [address] [place], [place] [phone] Ariela Woods MD 62 [facility] [address] [place] [phone] 10/18/2024 9:15 EST Telemedicine [facility] PULMONARY FUNCTION TECHNOLOGIST Pelvic Medicine and Reconstructive Surgery - Medical Office Building [facility] [address] [place] [address] Kelsy Fierro MD [address] [place] [address] Medical Office Building, [address] [place] [phone] documented as of this encounter Procedures Procedure Name Priority Date/Time Associated Diagnosis Comments SURGICAL PATHOLOGY Routine 06/10/2015 20 :30 EDT documented in this encounter Results * SURGICAL PATHOLOGY (06/10/2015 20:30 EDT) Pathology Report: SURGICAL PATHOLOGY REPORT Reports generated via electronic interface contain original data; however they are lacking the format of the original report. Caution should be taken when reading/interpret ing unformatted reports. Name: ? MAUREEN BAEZ ? Accession #: ? [id number] ? : ? 1940 (Age: 75) ??F ? Collect Date: ? 06/10/2015 ? Location: ? [facility] ? Receive Date: ? 06/11/2015 ? Provider: CAMPOS LOPES MD Copy to: ? Final Pathologic Diagnosis: A. ??SKIN OF THIGH, LEFT, PUNCH BIOPSY: - Basal cell carcinoma, nodular type. ?? - Basal cell carcinoma present at peripheral edges of punch biopsy specimen. B. ??SKIN OF THIGH, RIGHT, PUNCH BIOPSY: - Basal cell carcinoma, superficial and nodular type. - Basal cell carcinoma present at peripheral edges of punch biopsy specimen. ?? Microscopic Description: Irregularly shaped islands of atypical basal cells infiltrate the dermis. ??The basal cells have scant cytoplasm and round dark nuclei. ??Mitotic figures and apoptotic bodies are evident. ??The nuclei at the periphery of the islands have a palisaded arrangement. ??The islands are associated with a fibromyxoid stroma and there is cleft formation between some of the islands and stroma. ??(Dr. Box)/ljn Document reviewed and electronically signed by: JIE BOX MD Report ??Date: 06/12/2015 16:41 By the signature above, the attending physician certifies that he/she has personally conducted a gross and/or microscopic examination of the described specimens and rendered or confirmed the above diagnosis. Specimen(s) Received: A. ??4.0 mm punch L thigh B. ??4.0 mm punch R thigh Clinical History: A. 1.0 cm crusted lesion, ? squamous cell CA; B. 1.0 cm lesion, scar tissue ?, ? basal cell Gross Description: A. ?Received in formalin labelled with proper patient identification (initials E, B) and #1 left thigh is a punch biopsy of stuart-brown roughened, partially fragmented skin (0.3 cm in diameter and 0.3 cm in thickness). ??The specimen is submitted intact in A1. B. ?Received in formalin labelled with proper patient identification (initials E, B) and #2 right thigh is a punch biopsy of pink-stuart splotchy skin (0.3 cm in diameter and 0.1 cm in thickness). ??The specimen is submitted intact in B1. Eduardo Martines 06/12/2015 9:09 AM End of Report [facility] 06/10/2015 20:3 0 EDT 06/11/2015 20:30 EDT us Campos Lopes MD PATHOLOGY ORDERABLES Final Res ult [facility] [address] [place] [address] documented in this encounter Visit Diagnoses Not on filedocumented in this encounter Care Teams Artificial Breast Fabricator Relationship Specialty Start Date End Date Campos Lopes MD [address] [place] [address] PCP - General 05/21/09 documented as of this encounter
--- OUTSIDE RECORDS SUMMARY | 2024-10-09 11:23 | XMS_ITS | Encounter Summary ---
Author Organization [facility] Address [address] [place] [address] Care Team Providers Care Senior Sales Operations Manager Name Role Phone Campos Lopes MD Primary Care Provider Encounter Details Date Type Department Care Team (Late Contact Info) Description 07/13/2015 Pre-Procedure Orders Encounter [facility] UROLOGY [address] [place], [place] [phone] Angel Mcleod MD 111 [facility], [address] [place] [address] Social History Tobacco Use Types [...] Contact Info) Description 10/17/2024 10:20 EST Telemedicine [facility] Endocrinology - [facility] [address] [place] [address] Ariela Woods MD 62 [facility] [address] [place] [address] 10/18/2024 9:15 EST Telemedicine [facility] RESIDENT MEDICAL OFFICER Pelvic Medicine and Reconstructive Surgery - Medical Office Building [facility] [address] [place], [place] [phone] Kelsy Fierro MD 2 [facility] Medical Office [facility] [address] [place] [phone] documented as of this encounter Visit Diagnoses Not on filedocumented in this encounter Care Teams Senior Sales Operations Manager Relationship Specialty Start Date End Date Campos Lopes MD [address] [place], [place] [phone] PCP - General 05/21/09 documented as of this encounter
--- OUTSIDE RECORDS SUMMARY | 2024-10-09 11:23 | XMS_ITS | Encounter Summary ---
Author Organization [facility] Address [address] [place] [address] Care Team Providers Care Wire Drawing Die Maker Name Role Phone Campos Lopes MD Primary Care Provider [phone] Reason for Visit * Reason Onset Date Comments New Patient Visit 10/28/2014 Spoke with alex leung. Encounter Details Date Type Department Care Team (Late st Contact Info) Description 10/28/2014 Telephone [facility] Hematology & Oncology - [facility] [address] [place] [address] Tye Navarro MD [address] [place] [address], [address] [place] [address] New Patient Visit (Spoke with patient.) Social History Tobacco Use Types Packs/Day Years [...] encounter Miscellaneous Notes * Telephone Encounter - Sruthi Wallace Sharan - 10/28/2014 1049 EST Patient called Crissy to cancel appointment with Dr. Navarro today at 1:30 pm, she asked to be rescheduled to 2.9.15. I called her back and she accepted an appointment on 2.9.15 at 2:[address] Navarro. documented in this encounter Plan of Treatment Upcoming Encounters Date Type Department Care Team (Late st Contact Info) Description 10/17/2024 10:20 EST Telemedicine [facility] Endocrinology - [facility] [address] [place], [place] [phone] Ariela Woods MD 62 [facility] [address] [place] [phone] 10/18/2024 9:15 EST Telemedicine [facility] CURRICULUM COACH Pelvic Medicine and Reconstructive Surgery - Medical Office Building [facility] [address] [place] [phone] Kelsy Fierro MD [address] [place] [address] Medical Office [facility], [address] [place] [address] documented as of this encounter Visit Diagnoses Not on filedocumented in this encounter Care Teams Wire Drawing Die Maker Relationship Specialty Start Date End Date Campos Lopes MD [address] [place] [address] PCP - General 05/21/09 documented as of this encounter
--- OUTSIDE RECORDS SUMMARY | 2024-10-09 11:23 | XMS_ITS | Encounter Summary ---
Author Organization [facility] Address [address] [place] [address] Care Team Providers Care Labor Employment Associate Name Role Phone Campos Lopes MD Primary Care Provider [phone] Reason for Visit * Reason Onset Date Comments Discuss Test Results 04/24/2014 CAT SCAN Referral Request 05/02/2014 Encounter Details Date Type Department Care Team (Late st Contact Info) Description 04/24/2014 Telephone [facility] Pulmonology & Critical Care - [facility] [address] [place], [place] [phone] Tushar Moulton MD [address] [place] [id number] Discuss Test Results (CAT SCAN); Referral Request Social History Tobacco Use Types Packs/Day Years [...] encounter Miscellaneous Notes * Telephone Encounter - Ceci Ackerman, RT - 05/02/2014 1501 EDT Called pt back. She is calling Dr Moulton to ask his recommendation for an ENT doc here at [facility]. I said we usually ask pt's PCP to refer to some one but pt said her PCP didn't know who to send her to at [facility]. I will ask Dr Moulton for his suggestion and will call pt back at home #. Pt wants Dr to know that she recently had a throat culture that was negative for yeast infection and feels this is whymultiple doses of nystatin have not cleared problem. She also C/O worse sx is continued ear achesand wants ENT to evaluate cause. Would like ENT MD to also be involved with allergy testing if needed. Will send to Dr Moulton for advice. Ceci Ackerman,BAND SAW MARKER. * Telephone Encounter - Franchesca Dupree - 05/02/2014 1245 EDT Pt requesting a call back from a nurse stating she needs a referral and would like to speak to the nurse directly with specifics. Please call to discuss. * Telephone Encounter - Marilu Elizondo - 04/24/2014 1634 EDT Pt would like a call back to discuss her Cat Scan results. documented in this encounter Plan of Treatment Upcoming Encounters Date Type Department Care Team (Late st Contact Info) Description 10/17/2024 10:20 EST Telemedicine [facility] Endocrinology - [address] [address] Ariela Woods MD 62 [facility] [address] [place] [phone] 10/18/2024 9:15 EST Telemedicine [facility] DRYING OVEN TENDER Pelvic Medicine and Reconstructive Surgery - Medical Office Building [facility] [address] [place] [address] Kelsy Fierro MD [address] [place] [address] Office [facility], [address] [place] [address] documented as of this encounter Visit Diagnoses Not on filedocumented in this encounter Care Teams Labor Employment Associate Relationship Specialty Start Date End Date Campos Lopes MD [address] [place] [address] PCP - General 05/21/09 documented as of this encounter
--- OUTSIDE RECORDS SUMMARY | 2024-10-09 11:23 | XMS_ITS | Encounter Summary ---
Author Organization [facility] Address [address] [place] [address] Care Team Providers Care Functional Manager Name Role Phone Campos Lopes MD Primary Care Provider [phone] Reason for Referral * Radiology Services (Routine) - Closed Specialty Diagnoses / Procedures Referred By Contbeatriz osman Referred To Contact Diagnoses Dyspnea Procedures CT CHEST Tushar Moulton MD Phone: tel: fax: Referral ID Status Reason Start Date Expiration Date Visits Re quested Visits Authorized [id number] Closed 04/15/2014 1 1 Reason for Visit * Reason Comments New Patient Visit Encounter Details Date Type Department Care Team ([facility] st Contact Info) Description 04/15/2014 10:30 EDT Office Visit [facility] Pulmonology & Critical Care - [facility] [address] [place], [place] [address] Tushar Moulton MD [address] [place] [phone] Dyspnea (Primary Dx); Thrush Social History Tobacco Use Types Packs/Day Years [...] Refills Last Filled Start Date End Date fluconazole (DIFLUCAN) 100 mg tabletIndications:D yspnea,Thrush Take 1 Tab by mouth daily for 7 days. 7 Tab 0 04/15/2014 04/22/2014 fluconazole (DIFLUCAN) 50 mg tabletIndications:T hrush Take 1 Tab by mouth daily for 7 days. 7 Tab 0 04/15/2014 04/15/2014 documented in this encounter Progress Notes * Yajaira Sahu - 04/17/2014 1622 EDT Spoke with Imaging Scheduling at [facility]. The asked me to fax 1) the order for the Ct Scan (after it was prior authorized),2) orders for bun/creat in case the radiologist protocols thescan with contrast. Received the lab orders from Dr Moulton and faxed them at 4:23 pm. Our prior authperson has left for the day so will check on this first thing in the morning. [facility] will contact the patient to schedule the scan. * Eliza Amor - 04/15/2014 1542 EDT Due to the patient leaving the clinic without checking out, the external order for a CT Chest was mailed to patient with a letter stating that the patient can schedule the CT at her convenience at the hospital of her choice. * Ginny Sin RT - 04/15/2014 1452 EDT Pharmacy doesn't have 50 mg tablets Fluconazole available, Dr Moulton approved 100 mg daily x 7 days.Order changed in PRISM. * Tushar Moulton - 04/15/2014 1243 EDT 04/15/2014 CONSULTATION 04/15/2014 [...] evaluation of dyspnea on activity and to discuss the possible benefits of endobronchial thermoplasty. HPI Pt [...] bronchial thermoplasty therapy. Full PFTs done at [facility] on March 11, 2014 showed an FEV1 of 0.89 L (37% predicted), FVC 1.79 L (59% predicted), ratio of 50 (66% predicted. There is no significant change after inhaledbronchodilators. Lung volume showed total lung capacity of 3.43 L (111% predicted), residual volume3.10 L (133% predicted). Diffusing capacity was 76% predicted. The patient did use her short-actinginhaler prior to spirometry testing on that date which may explain the lack of response to bronchodilators. Spirometry done again at [facility] on March 21, 2014 showed an FEV1 of 0.78 L (32% predicted), FVC 1.58 L (52% predicted) ratio 49 (65% predicted). Exhaled nitric oxide reports done on March 21, 2014 was reported as normal. MEDICAL HISTORY Patient has a past medical history of Thyroid disease. SURGICAL HISTORY Patient has no past surgical history on file. FAMILY HISTORY No family history of asthma and allergies. SOCIAL HISTORY Patient reports that she quit smoking about 18 years ago. She has never used smokeless tobacco. Shereports that drinks alcohol. She reports that she [...] blood pressure is 142/74 and her pulse is 75. Her respiration is 14 and oxygen saturation [...] function studies: Pulmonary function studies done at [facility] reviewed by me. Full PFTs done at [facility] on March 11, 2014 showed an FEV1 of 0.89 L (37% predicted), FVC 1.79 L (59% predicted), ratio of 50 (66% predicted). There is no significant change after inhaled bronchodilators. Lung volume showed total lung capacity of 3.43 L (111% predicted), residual volume 3.10 L (133% predicted). Diffusing capacity was 76% predicted. The patient did use her short-acting inhaler prior to spirometry testing on that date which may explain the lack of response to bronchodilators. The results are consistent with severe airflow limitation with evidence of air trapping. Spirometry done again at [facility] on March 21, 2014 showed an FEV1 of 0.78 L (32% predicted), FVC 1.58 L (52% predicted) ratio 49 (65% predicted). Exhaled nitric oxide reports done on March 21, 2014 was reported as normal. IMAGING Chest x-rays from December and January [address] [facility] with reviewed. There is questionable right with no opacification that has partially cleared. There is possible thickening of the interlobular septa and both upper and lower lobes bilaterally. ASSESSMENT Since 4-year-old lady, past medical history significant for tobacco use, hypothyroidism, paroxysmalatrial fibrillation, hypertension, hyperlipidemia who has been treated [...] and results of prior workup done at [facility]. Would obtain full CT chest to verify the presence or absence of COPD changes/emphysema. It is extremely unlikely that the patient would be a candidate for endobronchial thermoplastic therapy for asthma. In the meantime, I will continue inhaled corticosteroids, long and short acting bronchodilators. The patient was counseled about proper precautions after using [...] Description 10/17/2024 10:20 EST Telemedicine [facility] Endocrinology - [address] [phone] Ariela Woods MD [address] [place] [phone] 10/18/2024 9:15 EST Telemedicine [facility] SURGICAL PROCESSOR Pelvic Medicine and Reconstructive Surgery - Medical Office Building [facility] [address] [place] [address] Kelsy Fierro MD [address] [place] [address] Medical Office Building, [address] [phone] Scheduled Orders Name Type Priority Associated Diagnoses Orde r Schedule CT CHEST Imaging Routine Dyspnea Ordered: 04/15/2014 documented as of this encounter Visit Diagnoses Diagnosis Dyspnea- Primary Other dyspnea and respiratory abnormality Thrush Candidiasis of mouth documented in this encounter Discontinued Medications Medication Sig Discontinue Reason Start Date End Da te clobetasol (TEMOVATE) 0.05 % cream Apply topically 2 times daily as needed. Dispense 60 Gm tube Patient Stopped Taking 03/17/2011 04/15/2014 fluticasone (FLOVENT) 110 mcg/Actuation inhalerIndications:Hy perthyroidism Inhale as directed every 12 hours. Patient Stopped Taking 04/15/2014 PIRBUTEROL ACETATE (MAXAIR AUTOHALER INHL)Indications:Hype rthyroidism Inhale as directed 2 times daily. Patient Stopped Taking 08/19/2010 04/15/2014 tolterodine (DETROL LA) 4 mg ER capsule Take 1 Cap by mouth daily. Patient Stopped Taking 03/22/2011 04/15/2014 albuterol (PROVENTIL HFA, VENTOLIN HFA) 90 mcg/actuation inhaler Inhale 2 Puffs as directed daily. Patient Stopped Taking 04/15/2014 fluconazole (DIFLUCAN) 50 mg tabletIndications:Thr ush Take 1 Tab by mouth daily for 7 days. Availability 04/15/2014 04/15/2014 documented as of this encounter Historical Medications * This list may reflect changes made after this encounter. albuterol 90 mcg/actuation inhaler Inhale 1-2 Puffs as directed every 6 hours as needed for Wheezing. Reported on 01/05/2017 added in this encounter Care Teams Functional Manager Relationship Specialty Start Date End Date Campos Lopes MD [address] [place] [address] PCP - General 05/21/09 documented as of this encounter
--- OUTSIDE RECORDS SUMMARY | 2024-10-09 11:23 | XMS_ITS | Encounter Summary ---
Author Organization [facility] Address [address] [place] [address] Care Team Providers Care Africana Studies Professor Name Role Phone Campos Lopes MD Primary Care Provider [phone] Reason for Referral * Radiology Services (Routine) - Closed Specialty Diagnoses / Procedures Referred By Contbeatriz t Referred To Contact Diagnoses Bilateral bunions Procedures FOOT 3 OR MORE VIEWS Albertina Perez DPM Phone: tel: fax: Referral ID Status Reason Start Date Expiration Date Visits Re quested Visits Authorized [id number] Closed 01/05/2017 1 1 Reason for Visit * Reason Comments Foot Pain bunions/hammertoes/t oes crossing eachother Encounter Details Date Type Department Care Team (Late st Contact Info) Description 01/05/2017 13:45 EDT Office Visit [facility] Foot & Ankle Program - [address] [address] Albertina Perez DPM [address] [place] [phone] Bilateral bunions (Primary Dx); Hammer toes of both feet Discharge Disposition: Auto Discharge Social History Tobacco [...] 01/05/2017 13:58 EDT documented in this encounter Discharge Diagnoses Diagnosis M21.611 Bunion of right foot-M21.611[ICD-10-CM] 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 She notes that she also has had bunions for a long time. They do not bother her much, except for where the bumps rub on shoes sometimes. 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 She is helping with a basketball camp this summer, and is asking if she has surgery done if she will be recovered in time for this. It starts in March. Past medical history, medications, allergies, past surgical, social and family history were reviewed and noted in PRISM. The intake form was [...] at the 1st MTPJ when the foot isloaded. Diminished dorsiflexory range of motion when the foot is not loaded. Prominent dorsal and medial eminences. No pain with ROM or on palpation. Rigid hammertoe contractures toes 2,3 b/l- non reducible. Splaying of the 2nd and 3rd toes. Mild hammertoe contractures of the 4th and 5th toes. Hyperkeratotic lesion right lateral 4th toe with mild pain on palpation. Pes planus. MMT 5/5. Gross protective sensation intact. ASSESSMENT: 1. Bilateral bunions FOOT 3 [...] we discussed treatment options. In order to correct the toes, this would involve fusion of the joints and pin fixation. We discussed that tendon release in the office would not provide adequate release as the toes are rigidly contracted. We also discussed that the bunions would need to be addressed, because straightening of the toes would cause them to rub against the bunions. For the bunions, she would likely require a fusion due to the amount of disease in the joint. We discussed what this would all entail and the recovery time. Recommended exhausting conservative treatment first, as her main complaint is the 2nd and 3rd toes splaying and rubbing against the others, and taping daily getting tiring. I dispensed toe spaces and hammer toecrest pads. We discussed proper shoe gear with a wide toe box. She is going to follow up after her summer camp, in about 6 months. She is happy with this plan. All the questions were answered and the patient was encouraged to call the clinic with any questions / concerns. Patient voices understanding and agrees with the plan. Cc: Requesting Provider - Dr. Painter PCP - Campos Lopes Portions of this document have been prepared with speech recognition software or keyboard data processing clerk techniques. Minor irregularities or keyboarding misprints may be present documented in this encounter Plan of Treatment Upcoming Encounters Date Type Department Care Team (Late st Contact Info) Description 10/17/2024 10:20 EST Telemedicine [facility] Endocrinology - [facility] [address] [place] [address] Ariela Woods MD [address] [facility] [address] [place] [phone] 10/18/2024 9:15 EST Telemedicine [facility] FLOOR SERVICE WORKER SPRING Pelvic Medicine and Reconstructive Surgery - Medical Office Building [address] [phone] Kelsy Fierro MD [address] [place] [address] Medical Office [facility], [address] [place] [phone] documented as of this encounter Procedures Procedure Name Priority Date/Time Associated Diagnosis Comments FOOT 3 OR MORE VIEWS Routine 01/05/2017 14:49 EDT Bilateral bunions documented in this encounter Results * FOOT 3 OR MORE VIEWS (01/05/2017 14:49 EDT) Anatomical Region Laterality Modality Other 01/05/2017 14:4 9 EDT 01/05/2017 16:38 EDT Narrative 01/05/2017 16:38 EDT FOOT 3 OR MORE VIEWS, FOOT 3 OR MORE VIEWS ??01/05/2017 2:49 PM Clinical History/Comments: M21.611-Bunion of right foot-ICD-10 M21.612-Bunion of left foot-ICD-10; bunions and hammertoes COMPARISON: None. FINDINGS: 3 views of the left foot and 3 views of the right foot were obtained. Left foot: No acute fractures or dislocations. There is hallux valgus, metatarsus varus. 2nd hammertoe deformity is noted. There is moderate arthrosis of the 1st MTP joint. Milder arthrosis is seen in the mid and hindfoot. Enthesopathic spurring is seen at the insertion of the plantar aponeurosis on the calcaneus. Mild soft tissue thickening is seen over the 1st metatarsal head. Right foot: No acute fractures or dislocations. Cortical regularity of the 4th metatarsal likely reflects healed fracture. There is hallux valgus, metatarsus varus. Suspect 2nd through 4th hammer toes. There is severe arthrosis of the 1st MTP joint. Mild to moderate arthrosis is present in the midfoot. Enthesopathic spurring is seen at the insertion of the plantar aponeurosis on the calcaneus. Soft tissue thickening is seen over the 1st metatarsal head. Procedure Note Raymundo Alexsi MD - 01/05/2017 FOOT 3 OR MORE VIEWS, FOOT 3 OR MORE VIEWS 01/05/2017 2:49 PM Clinical History/Comments: M21.611-Bunion of right foot-ICD-10 M21.612-Bunion of left foot-ICD-10; bunions and hammertoes COMPARISON: None. FINDINGS: 3 views of the left foot and 3 views of the right foot were obtained. Left foot: No acute fractures or dislocations. There is hallux valgus, metatarsus varus. 2nd hammertoe deformity is noted. There is moderate arthrosis of the 1st MTP joint. Milder arthrosis is seen in the mid and hindfoot. Enthesopathic spurring is seen at the insertion of the plantar aponeurosis on the calcaneus. Mild soft tissue thickening is seen over the 1st metatarsal head. Right foot: No acute fractures or dislocations. Cortical regularity of the 4th metatarsal likely reflects healed fracture. There is hallux valgus, metatarsus varus. Suspect 2nd through 4th hammer toes. There is severe arthrosis of the 1st MTP joint. Mild to moderate arthrosis is present in the midfoot. Enthesopathic spurring is seen at the insertion of the plantar aponeurosis on the calcaneus. Soft tissue thickening is seen over the 1st metatarsal head. us Albertina Perez DPArabella IMG DIAGNOSTIC IMAGING ORDERABL ES Final Result documented in this encounter Visit Diagnoses Diagnosis Bilateral bunions- Primary Bunion Hammer toes of both feet documented in this encounter Historical Medications * This list may reflect changes made after this encounter. Multivitamins with Minerals tablet tablet Take 1 Tab by mouth daily. 3 magnesium oxide (MAG-OX) 400 mg tablet Take 1 Tablet by mouth daily before breakfast. Currently taking 3 solifenacin (VESICARE) 10 mg tablet Take 5 mg by mouth as needed. 3 losartan (COZAAR) 25 mg tablet Take 25 mg by mouth daily. Pt states not taking 1 added in this encounter Care Teams Africana Studies Professor Relationship Specialty Start Date End Date Campos Lopes MD [address] [place] [address] PCP - General 05/21/09 documented as of this encounter
--- OUTSIDE RECORDS SUMMARY | 2024-10-09 11:23 | XMS_ITS | Encounter Summary ---
Author Organization [facility] Address [address] [place] [address] Care Team Providers Care Ticket Counter Name Role Phone Campos Lopes MD Primary Care Provider [phone] Reason for Visit * Reason Comments Discuss Surgery Encounter Details Date Type Department Care Team ([facility] Contact Info) Description 02/05/2015 11:30 EDT Office Visit [facility] Urology - [facility] [address] [place], [place] [phone] Angel Mcleod MD 111 [facility], [address] [place] [address] Urgency of urination (Primary Dx) Discharge Disposition: Auto Discharge Social History Tobacco [...] documented in this encounter Progress Notes * Angel Mcleod MD - 02/05/2015 1149 EDT [...] and night since September (when she drank morealcohol and caffeine than usual) except for the last few days with a lot of ibuprofen use. She doesnot have pain when holding her urine, but does [...] vaginally. Per vagina 2 x weekly, Disp: 1 Tube, Rfl: 11; fluticasone-salmeterol (ADVAIR HFA) 230-21 mcg/actuation inhaler, Inhale 2 Puffs asdirected 2 times daily . , Disp: , Rfl: ; ibuprofen (MOTRIN) 200 mg tablet, Take 4 Tabs by mouth every 8 hours as needed for Pain., Disp: , [...] peptic ulcer disease. We discussed hydrodistention under anesthesia and given her recent improvement in symptoms, agreed to hold off for now. Plan: She may contact me as needed should she develop another flare up of urinary symptoms to schedule hydrodistention under anesthesia. Angel Mcleod MD documented in this encounter Plan of Treatment Upcoming Encounters Date Type Department Care Team (Late st Contact Info) Description 10/17/2024 10:20 EST Telemedicine [facility] Endocrinology - [facility] [address] [place] [address] Ariela Woods MD 62 [facility] [address] [place] [phone] 10/18/2024 9:15 EST Telemedicine [facility] LABORER/KEY MAN Pelvic Medicine and Reconstructive Surgery - Medical Office [address] [phone] Kelsy Fierro MD 2 [facility] Medical Office [facility], [address] [phone] documented as of this encounter Visit Diagnoses Diagnosis Urgency of urination- Primary documented in this encounter Historical Medications * This list may reflect changes made after this encounter. TOLTERODINE TARTRATE (DETROL ORAL) Take by mouth. Reported on 01/05/2017 07/11/2017 added in this encounter Care Teams Ticket Counter Relationship Specialty Start Date End Date Campos Lopes MD [address] [place] [address] PCP - General 05/21/09 documented as of this encounter
--- OUTSIDE RECORDS SUMMARY | 2024-10-09 11:23 | XMS_ITS | Encounter Summary ---
Author Organization [facility] Address [address] [place] [address] Care Team Providers Care Coal Loader Name Role Phone Campos Lopes MD Primary Care Provider [phone] Reason for Visit * Reason Onset Date Comments Discuss Surgery 07/03/2015 Encounter Details Date Type Department Care Team (Late st Contact Info) Description 07/03/2015 Telephone [facility] Urology - [facility] [address] [place], [place] [phone] Angel Mcleod MD 111 [facility], Level 5 [place] [address] Discuss Surgery Social History Tobacco [...] encounter Miscellaneous Notes * Telephone Encounter - Ginny Soriano - 07/03/2015 4527 EDT Called patient back, can't confirm OR time until 48 hrs prior. Patient aware. * Telephone Encounter - Sabina Naiton - 07/03/2015 1044 EDT Reason for Call: Discuss Surgery Summary/Symptoms: Patient calling patient benefits at [facility] to find out surgery time on 07/15. Please call. Sabina[place]il Nation 07/03/2015 10:44 documented in this encounter Plan of Treatment Upcoming Encounters Date Type Department Care Team (Late st Contact Info) Description 10/17/2024 10:20 EST Telemedicine [facility] Endocrinology - [address] [phone] Ariela Woods MD 62 [facility] [address] [place] [phone] 10/18/2024 9:15 EST Telemedicine [facility] FOREIGN LANGUAGE PROFESSOR Pelvic Medicine and Reconstructive Surgery - Medical Office [address] [phone] Kelsy Fierro MD [address] [place] [address] Medical Office [facility], [address] [phone] documented as of this encounter Visit Diagnoses Not on filedocumented in this encounter Care Teams Coal Loader Relationship Specialty Start Date End Date Campos Lopes MD [address] [place] [address] PCP - General 05/21/09 documented as of this encounter
--- OUTSIDE RECORDS SUMMARY | 2024-10-09 11:23 | XMS_ITS | Encounter Summary ---
Author Organization [facility] Address [address] [place] [address] Care Team Providers Care Cut Off Tender Glass Name Role Phone Campos Lopes MD Primary Care Provider [phone] Reason for Visit * Reason Onset Date Comments New Patient Visit 10/14/2014 Called/ schedu led Encounter Details Date Type Department Care Team (Late st Contact Info) Description 10/14/[address] [facility] Surgical Oncology - [facility] [address] [place], [place] [phone] Tye Navarro MD [address] [place] [address], Level 2 [place] [address] New Patient Visit (Called/ scheduled) Social History Tobacco Use Types Packs/Day Years [...] encounter Miscellaneous Notes * Telephone Encounter - Shanell Daniel - 10/14/2014 1420 EST I spoke with Maureen and scheduled the appointment with Dr. Tye Navarro on Tuesday, 10/28 at 1:30pm. New patient paperwork to be sent out today. documented in this encounter Plan of Treatment Upcoming Encounters Date Type Department Care Team (Late st Contact Info) Description 10/17/2024 10:[address] [facility] Endocrinology - [facility] [address] [place] [address] Ariela Woods MD 62 [facility] [address] [place] [phone] 10/18/2024 9:[address] [facility] ROPE WALKER Pelvic Medicine and Reconstructive Surgery - Medical Office Building [facility] [address] [place] [phone] Kelsy Fierro MD 2 [facility] Medical Office [facility], [address] [place] [phone] documented as of this encounter Visit Diagnoses Not on filedocumented in this encounter Care Teams Cut Off Tender Glass Relationship Specialty Start Date End Date Campos Lopes MD [address] [place] [address] PCP - General 05/21/09 documented as of this encounter
--- OUTSIDE RECORDS SUMMARY | 2024-10-09 11:23 | XMS_ITS | Encounter Summary ---
Author Organization [facility] Address [address] [place] [address] Care Team Providers Care Film Rental Clerk Name Role Phone Campos Lopes MD Primary Care Provider [phone] Reason for Visit * Reason Onset Date Comments Returning Call 07/03/2015 Encounter Details Date Type Department Care Team (Late st Contact Info) Description 07/03/2015 Telephone [facility] Urology - [facility] [address] [place], [place] [address] Angel Mcleod MD 111 [facility], Level 5 [place] [address] Returning Call Social History Tobacco Use Types [...] encounter Miscellaneous Notes * Telephone Encounter - Beth Baldwin - 07/03/2015 1050 EDT Reason for Call: Returning Call Summary/Symptoms: pt calling.... Refused to give reason as to why. Would like Machelle to call Beth Baldwin 07/03/2015 10:50 documented in this encounter Plan of Treatment Upcoming Encounters Date Type Department Care Team (Late st Contact Info) Description 10/17/2024 10:20 EST Telemedicine [facility] Endocrinology - [facility] [address] [place] [address] Ariela Woods MD 62 [facility] [address] [place] [address] 10/18/2024 9:15 EST Telemedicine [facility] CAP MACHINE OPERATOR Pelvic Medicine and Reconstructive Surgery - Medical Office Building [facility] [address] [place] [phone] Kelsy Fierro MD [address] [place] [address] Medical Office [facility], [address] [phone] documented as of this encounter Visit Diagnoses Not on filedocumented in this encounter Care Teams Film Rental Clerk Relationship Specialty Start Date End Date Campos Lopes MD [address] [place], [place] [phone] PCP - General 05/21/09 documented as of this encounter
--- OUTSIDE RECORDS SUMMARY | 2024-10-09 11:23 | XMS_ITS | Encounter Summary ---
Author Organization [facility] Address [address] [place] [address] Care Team Providers Care Drum Puller Name Role Phone Campos Lopes MD Primary Care Provider [phone] Reason for Visit * Reason Onset Date Comments Procedure 06/24/2015 Procedure 06/27/2015 07.03.2015 Encounter Details Date Type Department Care Team (Late st Contact Info) Description 06/24/2015 Telephone [facility] Urology - [facility] [address] [place] [address] Angel Mcleod MD [address] [place] [address], Level 5 [place] [address] Procedure; Procedure (07.03.2015) Social History Tobacco Use Types Packs/Day Years [...] encounter Miscellaneous Notes * Telephone Encounter - SusannaGinny landaverde Gretchen - 06/27/2015 1254 EDT Called the patient, left message that the next OR time I have with Dr. Mcleod is 07/15/15. Requestedcall back to discuss. * Telephone Encounter - Carmen Turner - 06/27/2015 1013 EDT Reason for Call: Procedure Summary/Symptoms: Per pt, needs to rsc the 9.24 surgery. Pt made aware to expect a call back [id number] hrs(by Tuesday) Carmen Turner 06/27/2015 10:13 * Telephone Encounter - Ginny Soriano - 06/25/2015 1120 EDT Called patient, confirmed OR date and pre op appt, changed phone number in the system. * Telephone Encounter - Carmen Turner - 06/24/2015 [...] [facility] Endocrinology - [facility] [address] [place] [address] Ariela Woods MD 62 [facility] [address] [place] [address] 10/18/2024 9:15 EST Telemedicine [facility] FLOOR SERVICE WORKER SPRING Pelvic Medicine and Reconstructive Surgery - Medical Office Building [facility] [address] [place] [address] Kelsy Fierro MD 2 [facility] Office [facility], [address] [place] [phone] documented as of this encounter Visit Diagnoses Not on filedocumented in this encounter Care Teams Drum Puller Relationship Specialty Start Date End Date Campos Lopes MD [address] [place], [place] [phone] PCP - General 05/21/09 documented as of this encounter
--- OUTSIDE RECORDS SUMMARY | 2024-10-09 11:23 | XMS_ITS | Encounter Summary ---
Author Organization [facility] Address [address] [place] [address] Care Team Providers Care Power Electronics Research Engineer Name Role Phone Campos Lopes MD Primary Care Provider [phone] Reason for Visit * Reason Onset Date Comments New Patient Visit 02/13/2013 Encounter Details Date Type Department Care Team (Late st Contact Info) Description 02/13/2013 Telephone [facility] Urology - [facility] [address] [place], [place] [phone] Jose Carlos Reyes MD 111 [facility], Level 5 [place] [address] New Patient Visit Social History Tobacco Use [...] encounter Miscellaneous Notes * Telephone Encounter - Linsey Grant - 02/14/2013 1122 EDT Called pt left message that dr. Alan Orozco could see for this issue or Uro patient registrar .Telephone number given * Telephone Encounter - Jaye Warner V. - 02/13/2013 1618 EDT Pt would like to see Dr. Reyes. Pt never been diagnosed with anything but thinks she has interstitial cystitis. documented in this encounter Plan of Treatment Upcoming Encounters Date Type Department Care Team (Late st Contact Info) Description 10/17/2024 10:20 EST Telemedicine [facility] Endocrinology - [facility] [address] [place], [place] [phone] Ariela Woods MD 62 [facility] [address] [place] [phone] 10/18/2024 9:15 EST Telemedicine [facility] MOTION STUDY TECHNICIAN Pelvic Medicine and Reconstructive Surgery - Medical Office Building [facility] [address] [place] [phone] Kelsy Fierro MD 2 [facility] Medical Office [facility], [address] [place] [phone] documented as of this encounter Visit Diagnoses Not on filedocumented in this encounter Care Teams Power Electronics Research Engineer Relationship Specialty Start Date End Date Campos Lopes MD [address] [place] [address] PCP - General 05/21/09 documented as of this encounter
--- OUTSIDE RECORDS SUMMARY | 2024-10-09 11:23 | XMS_ITS | Encounter Summary ---
Author Organization [facility] Address [address] [place] [address] Care Team Providers Care Hadoop Admin Name Role Phone Campos Lopes MD Primary Care Provider [phone] Reason for Visit * Reason Onset Date Comments Pre-procedure 07/14/2015 surgery confirma tion Encounter Details Date Type Department Care Team (Late st Contact Info) Description 07/14/2015 Telephone [facility] Urology - [address] [phone] Angel Mcleod MD 111 [facility], Level [address] [place] [address] Pre-procedure (surgery confirmation) Social History Tobacco Use Types Packs/Day Years [...] * Telephone Encounter - Ginny Soriano - 07/14/2015 1352 EDT Procedure confirmed with patient. Pt was instructed to check in 3rd floor registration at 7:40 am on 07/15/15 for a procedure at 9:40 am w/Dr Mcleod. Pt is aware that there is nothing to eat or drink after midnight and will need a dumpster driver. documented in this encounter Plan of Treatment Upcoming Encounters Date Type Department Care Team (Late st Contact Info) Description 10/17/2024 10:20 EST Telemedicine [facility] Endocrinology - [facility] [address] [place] [address] Ariela Woods MD 62 [facility] [address] [place] [phone] 10/18/2024 9:15 EST Telemedicine [facility] EARLY LEARNING TEACHER Pelvic Medicine and Reconstructive Surgery - Medical Office Building [facility] [address] [place] [phone] Kelsy Fierro MD [address] [place] [address] Medical Office [facility], [address] [place] [phone] documented as of this encounter Visit Diagnoses Not on filedocumented in this encounter Care Teams Hadoop Admin Relationship Specialty Start Date End Date Campos Lopes MD [address] [place] [address] PCP - General 05/21/09 documented as of this encounter
--- OUTSIDE RECORDS SUMMARY | 2024-10-09 11:23 | XMS_ITS | Encounter Summary ---
Author Organization [facility] Address [address] [place] [address] Care Team Providers Care Shoe Repairman Name Role Phone Campos Lopes MD Primary Care Provider [phone] Encounter Details Date Type Department Care Team (Late st Contact Info) Description 01/05/2017 Results Only Imaging [facility] Foot & Ankle Program - [facility] [address] [place] [address] Albertina Perez, [facility] [address] [place] [address] Social History Tobacco Use Types Packs/Day Years [...] 01/05/2017 13:58 EDT documented in this encounter Plan of Treatment Upcoming Encounters Date Type Department Care Team (Late st Contact Info) Description 10/17/2024 10:20 EST Telemedicine [facility] Endocrinology - [facility] [address] [place] [address] Ariela Woods MD 62 [facility] [address] [place] [address] 10/18/2024 9:15 EST Telemedicine [facility] NURSING PROGRAM CHAIR Pelvic Medicine and Reconstructive Surgery - Medical Office Building [facility] [address] [place] [address] Kelsy Fierro MD [address] [place] [address] Medical Office [facility], [address] [place] [phone] documented as of this encounter Procedures Procedure Name Priority Date/Time Associated Diagnosis Comments FOOT 3 OR MORE VIEWS 01/05/2017 14:49 EDT documented in this encounter Results * FOOT [...] the 1st metatarsal head. us Albertina Perez DPM IMG DIAGNOSTIC IMAGING ORDERABL ES Final Result documented in this encounter Visit Diagnoses Not on filedocumented in this encounter Care Teams Shoe Repairman Relationship Specialty Start Date End Date Campos Lopes MD [address] [place] [address] PCP - General 05/21/09 documented as of this encounter
--- OUTSIDE RECORDS SUMMARY | 2024-10-09 11:23 | XMS_ITS | Encounter Summary ---
Author Organization [facility] Address [address] [place] [address] Care Team Providers Care Save All Operator Name Role Phone Campos Lopes MD Primary Care Provider Reason for Visit * Reason Onset Date Comments Appointment Related 01/30/2015 Encounter Details Date Type Department Care Team ([facility] st Contact Info) Description 01/30/2015 Telephone [facility] Urology - [address] [phone] Saman Amin MD [address] [place] [phone] Appointment Related Social History Tobacco Use Types [...] encounter Miscellaneous Notes * Telephone Encounter - Carmen Turner - 01/30/2015 1444 EDT Reason for Call: Appointment Related Summary/Symptoms: Pt wondering status of appt with Dr. Amin. Per pt, was referred from Dr. Carey's office on 01.28.2015. Pt requesting call back today with status Onset and Duration? n/a Carmen Turner 01/30/2015 14:44 documented in this encounter Plan of Treatment Upcoming Encounters Date Type Department Care Team (Late st Contact Info) Description 10/17/2024 10:20 EST Telemedicine [facility] Endocrinology - [facility] [address] [place] [address] Ariela Woods MD 62 [facility] [address] [place] [phone] 10/18/2024 9:15 EST Telemedicine [facility] PICKER TENDER HELPER Pelvic Medicine and Reconstructive Surgery - Medical Office Building [facility] [address] [place] [phone] Kelsy Fierro MD [address] [place] [address] Medical Office [facility], [address] [place] [phone] documented as of this encounter Visit Diagnoses Not on filedocumented in this encounter Care Teams Save All Operator Relationship Specialty Start Date End Date Campos Lopes MD [address] [place] [address] PCP - General 05/21/09 documented as of this encounter
--- OUTSIDE RECORDS SUMMARY | 2024-10-09 11:23 | XMS_ITS | Encounter Summary ---
Author Organization [facility] Address [address] [place] [address] Care Team Providers Care Debeaker Name Role Phone Campos Lopes MD Primary Care Provider [phone] Encounter Details Date Type Department Care Team (Latest Contact Info) Description 08/23/2014 16:42 EST - 08/23/2014 23:59 [facility] Hospital Encounter [address] [address] Unknown, Provider, Discharge Disposition: Home or Self [...] 8 hours as needed for Pain. 04/14/2023 documented as of this encounter Discharge Disposition Disposition Code Departure Means Destination Home or Self Intermediate documented in this encounter Plan of Treatment Upcoming Encounters Date Type Department Care Team (Late st Contact Info) Description 10/17/2024 10:20 EST Telemedicine [facility] Endocrinology - [facility] [address] [place] [address] Ariela Woods MD 62 [facility] [address] [place] [phone] 10/18/2024 9:15 EST Telemedicine [facility] TRENCHING MACHINE OPERATOR Pelvic Medicine and Reconstructive Surgery - Medical Office Building [facility] [address] [place] [phone] Kelsy Fierro MD [address] [place] [address] Medical Office [facility], [address] [phone] documented as of this encounter Visit Diagnoses Not on filedocumented in this encounter Care Teams Debeaker Relationship Specialty Start Date End Date Campos Lopes MD [address] [place] [address] PCP - General 05/21/09 documented as of this encounter
--- OUTSIDE RECORDS SUMMARY | 2024-10-09 11:23 | XMS_ITS | Encounter Summary ---
Author Organization [facility] Address [address] [place] [address] Care Team Providers Care Restaurant Mgr Name Role Phone Campos Lopes MD Primary Care Provider [phone] Reason for Visit * Reason Onset Date Comments CT Scan 04/16/2014 Encounter Details Date Type Department Care Team (Late st Contact Info) Description 04/16/2014 Telephone [facility] Endocrinology - [address] [address] Tushar Moulton MD [address] [place] [phone] Scan Social History Tobacco Use Types Packs/Day Years [...] encounter Miscellaneous Notes * Telephone Encounter - Megan Loja - 04/16/2014 5346 EDT Pt calling in regards to CT being scheduled for her. Made pt aware that this order was mailed to her. Pt was upset with this. Call was disconnected. documented in this encounter Plan of Treatment Upcoming Encounters Date Type Department Care Team (Late st Contact Info) Description 10/17/2024 10:20 EST Telemedicine [facility] Endocrinology - [facility] [address] [place], [place] [phone] Ariela Woods MD 62 [facility] [address] [place] [address] 10/18/2024 9:15 EST Telemedicine [facility] GEAR TOOTH LAPPING MACHINE OPERATOR Pelvic Medicine and Reconstructive Surgery - Medical Office Building [facility] [address] [place] [address] Kelsy Fierro MD 2 [facility] Medical Office [facility], [address] [place] [phone] documented as of this encounter Visit Diagnoses Not on filedocumented in this encounter Care Teams Restaurant Mgr Relationship Specialty Start Date End Date Campos Lopes MD [address] [place], [place] [phone] PCP - General 05/21/09 documented as of this encounter
--- OUTSIDE RECORDS SUMMARY | 2024-10-09 11:23 | XMS_ITS | Encounter Summary ---
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 Godwin Carney Phone: tel: fax: [facility] Rehabilitation Therapy - [address] [address] Phone: tel: fax: Referral ID Status Reason Start Date Expiration Date Visits Requested Visits Authorized [id number] Specialty Report Received Specialty Services Required 06/23/2016 1 1 Question Answer Reason for Request: L SF P1 malunion, work on hand intrinsic function, SF strength Reason for Visit * Reason Comments Finger Injury Left 5th Finger * Consult, Test and Treat (Routine) - Closed Specialty Diagnoses / Procedures Referred By Lynnette osman Referred To Contact Orthopedic Surgery Diagnoses Finger fracture Self, Referral [facility] Hand & Upper Extremity Program - [address] [address] Phone: tel: fax: Referral ID Status Reason Start Date Expiration Date Visits Re quested Visits Authorized [id number] Closed 1 1 Encounter Details Date Type Department Care Team (Late st Contact Info) Description 06/23/2016 13:00 EDT Office Visit [facility] Hand & Upper Extremity Program - [place] [address] Godwin Carney [address] [facility] [place] [phone] 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 Finger Injury Left 5th Finger History of Present Illness: Maureen Thomas is a 76 y.o. right hand-dominant female who presents complaining of trouble with her left small finger. She states that it doesn't work right because it is crooked. She has a history of a fracture in October, while in [facility]. She states that she was reaching down from a sofa and her finger broke. She did not have any immediate treatment. She subsequently saw Dr. Becerra when she returned to the [facility], and was referred to us for possible osteotomy after x-rays revealed a malunion. She states that she did have a DEXA scan and that she was told that she does not have osteoporosis.She is not currently on any articular medications [...] orthogonal views of left hand obtained today, wereindependently reviewed by myself. These films demonstrate diffuse osteopenia within fingers. There is a notable apex-radial and apex-volar malunion of the [...] approximately 20?? flexion contracture at the PIP joint. There is no gross abduction deformity, and the [...] no cords. Her sensation is intact. Her perfusion is normal. Her nail plate is growing. Assessment: This is a 76 y.o. right hand-dominant female with a left small finger proximal phalanx malunion, and a small finger PIP flexion contracture. Currently, while [...] in face to face time with this patienttoday and >50% of that time was spent in counseling and coordination of care as described in theprogress note. Godwin Carney MD 06/23/2016 documented in this encounter Plan of Treatment Upcoming Encounters Date Type Department Care Team (Late st Contact Info) Description 10/17/2024 10:20 EST Telemedicine [facility] Endocrinology - [address] [phone] Ariela Woods MD [address] [place] [phone] 10/18/2024 9:15 EST Telemedicine [facility] CANTEEN MANAGER Pelvic Medicine and Reconstructive Surgery - Medical Office Building [address] [address] Kelsy Fierro MD [address] [place] [address] Office [facility], [address] [phone] Scheduled Referrals Name Type Priority Associated Diagnoses Orde r Schedule AMB CONS/FOLLOW UP HAND THERAPY Outpatient Referral Routine Fracture Of Finger Of Left Hand With Malunion Ordered: 06/23/2016 documented as of this encounter Visit Diagnoses Diagnosis Fracture of finger of left hand with malunion- Primary documented in this encounter Care Teams Eligibility Services Representative Relationship Specialty Start Date End Date Campos Lopes MD [address] [place] [address] PCP - General 05/21/09 documented as of this encounter
--- OUTSIDE RECORDS SUMMARY | 2024-10-09 11:23 | XMS_ITS | Encounter Summary ---
Author Organization [facility] Address [address] [place] [address] Care Team Providers Care Senior Electrical Estimator Name Role Phone Campos Lopes MD Primary Care Provider [phone] Reason for Visit * Reason Comments Urinary Frequency Dysuria Encounter Details Date Type Department Care Team ([facility] Contact Info) Description 12/30/2014 14:30 EDT Office Visit [facility] Urology - Medical Office Building [address] [place] [address], [address] [place] [address] Adalberto Carey MD [address] [facility], [address] [place] [address] IC (interstitial cystitis) (Primary Dx); Frequency of urination; Dysuria Discharge Disposition: Auto Discharge Social History Tobacco [...] Refills Last Filled Start Date End Date mirabegron 25 mg tablet extended release 24 hrIndications:Frequ ency of urination Take 25 mg by mouth daily 30 Tab 11 12/30/2014 07/11/2017 documented in this encounter Discharge Disposition Disposition Code Departure Means Destination Auto Discharge documented in this encounter Progress Notes * Adalberto Carey MD - 12/30/2014 1509 EDT Subjective: Patient ID: Maureen Baez is [...] full w/u in the past with Dr Avalos,short of hydrodistension, which the pt deferred. Had bladder instillations x7 with Dr Avalos in the past. 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 Now still has urgency/frequency which seems to only be helped by pyridium now. Uses either detrol or vesicare at times for frequency. Takes these for [...] (Age: 74) F Collect Date: 08/23/2014 Location: [facility] Receive Date: 08/24/2014 Provider: ZANDRA LEONE MD [...] difficulty of confirming this diagnosis- a dx ofexclusion to some degree - has not benefited [...] [facility] Endocrinology - [facility] [address] [place], [place] [phone] Ariela Woods MD 62 [facility] [address] [place] [phone] 10/18/2024 9:15 EST Telemedicine [facility] HEMATOLOGY NURSE Pelvic Medicine and Reconstructive Surgery - Medical Office Building [facility] [address] [place] [address] Kelsy Fierro MD [address] [place] [address] Medical Office Building, [address] [place] [phone] documented as of this encounter Visit Diagnoses Diagnosis IC (interstitial cystitis)- Primary Chronic interstitial cystitis Frequency of urination Urinary frequency Dysuria documented in this encounter Historical Medications * This list may reflect changes made after this encounter. tiotropium (SPIRIVA WITH HANDIHALER) 18 mcg inhalation capsule Inhale 18 mcg as directed daily. Reported on 01/05/2017 07/11/2017 added in this encounter Care Teams Senior Electrical Estimator Relationship Specialty Start Date End Date Campos Lopes MD [address] [place] [address] PCP - General 05/21/09 documented as of this encounter
--- OUTSIDE RECORDS SUMMARY | 2024-10-09 11:23 | XMS_ITS | Encounter Summary ---
Author Organization [facility] Address [address] [place] [address] Care Team Providers Care Drum Sander Setter Name Role Phone Campos Lopes MD Primary Care Provider [phone] Reason for Visit * Reason Onset Date Comments Cough 11/13/2018 Encounter Details Date Type Department Care Team (Late st Contact Info) Description 11/13/2018 Telephone [facility] [address] [place] [address] Salomon Lima MD [address] [place] [address] Cough Social History Tobacco Use Types Packs/Day Years [...] encounter Miscellaneous Notes * Telephone Encounter - Quentin Cerda RN - 11/13/2018 1019 EST Refuses to talk to me about issue, insisted on discussing her opinion of her phone experience with scoa and how it was inappropriate, I tried to steer her back to the fact there was a nurse on the phone now and we didn't need to discuss that. She insists on talking to Dr. Lima or the resident who saw her so she doesn't need to repeat herself multiple times i'm a RN. I told her I would sendthis to Dr. Quiles to call her. * Telephone Encounter - Yoon Lopez - 11/13/2018 0924 EST Pt is calling, she states she wants to speak with a medically trained professional, I explained I could route a message out to the nurse, I just need some more information. She states that she was seen a couple weeks ago by Dr. Lima and the medication she was prescribed is not working, I askedif it was the zantac, she said yes, I asked what the symptoms were she got loud with me and stated you have it in my records I dont want to keep explaining myself, I want to talk to someone who is medically trained. I told the patient I needed more information to route the message out to the provider and his nurse, and she got loud with me and didn't want to give me anymore information, so I politely told the pt I would route the message to the provider and told her I was disconnecting the phone call. documented in this encounter Plan of Treatment Upcoming Encounters Date Type Department Care Team (Late st Contact Info) Description 10/17/2024 10:20 EST Telemedicine [facility] [place] [address] Ariela Woods MD [address] [place] [address] [address] [place] [address] 10/18/2024 9:15 EST Telemedicine [facility] CORRAL BOSS Pelvic Medicine and Reconstructive Surgery - Medical Office Building [facility] [address] [place], [place] [address] Kelsy Fierro MD 2 [facility] Office [facility], [address] [place] [phone] documented as of this encounter Visit Diagnoses Not on filedocumented in this encounter Care Teams Drum Sander Setter Relationship Specialty Start Date End Date Campos Lopes MD [address] [place], [place] [phone] PCP - General 05/21/09 documented as of this encounter
--- OUTSIDE RECORDS SUMMARY | 2024-10-09 11:23 | XMS_ITS | Encounter Summary ---
Author Organization [facility] Address [address] [place] [address] Care Team Providers Care A Operator Name Role Phone Campos Lopes MD Primary Care Provider [phone] Encounter Details Date Type Department Care Team (Late Contact Info) Description 05/14/2014 Orders Only [facility] Urology - Medical Office Building [address] [place] [address], [address] [place], [place] [address] Adalberto Carey MD 111 [facility], [address] [place] [address] Urinary frequency (Primary Dx) Social History Tobacco [...] Contact Info) Description 10/17/2024 10:20 EST Telemedicine [facility] Endocrinology - [facility] [address] [place], [place] [phone] Ariela Woods MD 62 [facility] [address] [place] [phone] 10/18/2024 9:15 EST Telemedicine [facility] PAD MACHINE OPERATOR Pelvic Medicine and Reconstructive Surgery - Medical Office Building [facility] [address] [place], [place] [address] Kelsy Fierro MD 2 [facility] Medical Office [facility] [place], [address] [phone] documented as of this encounter Visit Diagnoses Diagnosis Urinary frequency- Primary documented in this encounter Care Teams A Operator Relationship Specialty Start Date End Date Campos Lopes MD [address] [place], [place] [phone] PCP - General 05/21/09 documented as of this encounter
--- OUTSIDE RECORDS SUMMARY | 2024-10-09 11:23 | XMS_ITS | Encounter Summary ---
Author Organization [facility] Address [address] [place] [address] Care Team Providers Care Lead Caster Helper Name Role Phone Campos Lopes MD Primary Care Provider [phone] Encounter Details Date Type Department Care Team (Late Contact Info) Description 01/23/2016 Results Only Imaging [facility] Orthopedic Surgery - [address] [place] [address] Tye Tony MD [address] [place] [address] Social History Tobacco Use Types Packs/Day [...] [facility] - [facility] [address] [place] [address] Ariela Woods MD 62 [facility] [address] [place] [address] 10/18/2024 9:15 EST Telemedicine [facility] SHINGLE SHEARING MACHINE OPERATOR Pelvic Medicine and Reconstructive Surgery - Medical Office Building [facility] [address] [place] [address] Kelsy Fierro MD [address] [place] [address] Medical Office Building, [address] [place] [address] Pending Results Name Type Priority Associated Diagnoses Date /Time OUTSIDE IMAGES - [facility] Imaging 01/23/2016 18:48 EDT documented as of this encounter Visit Diagnoses Not on filedocumented in this encounter Care Teams Lead Caster Helper Relationship Specialty Start Date End Date Campos Lopes MD [address] [place] [address] PCP - General 05/21/09 documented as of this encounter
--- OUTSIDE RECORDS SUMMARY | 2024-10-09 11:23 | XMS_ITS | Encounter Summary ---
Author Organization [facility] Address [address] [place] [address] Care Team Providers Care Squirrel Worker Name Role Phone Campos Lopes MD Primary Care Provider Reason for Visit * Reason Onset Date Comments Prior Auth, Other (i.e. radiology, etc.) 014 Encounter Details Date Type Department Care Team (Late st Contact Info) Description 04/18/2014 Telephone [facility] Pulmonology & Critical Care - [facility] [address] [place], [place] [address] Tushar Moulton MD [address] [place] [id number] Prior Auth, Other (i.e. radiology, etc.) Social History Tobacco Use Types Packs/Day Years [...] encounter Miscellaneous Notes * Telephone Encounter - Eliza Amor - 04/18/2014 0851 EDT Spoke to [facility] Radiology, they have received the orders for the CT chest and the Lab orders. They will be contacting the patient directly to schedule the CT. * Telephone Encounter - Joanne Chrey - 04/18/[address] does not require prior auth with either carrier. documented in this encounter Plan of Treatment Upcoming Encounters Date Type Department Care Team (Late st Contact Info) Description 10/17/2024 10:20 EST Telemedicine [facility] Endocrinology - [facility] [address] [place], [place] [phone] Ariela Woods MD 62 [facility] [address] [place] [phone] 10/18/2024 9:15 EST Telemedicine [facility] FARM FIELD MANAGER Pelvic Medicine and Reconstructive Surgery - Medical Office Building [address] [phone] Kelsy Fierro MD 2 [facility] Medical Office [facility], [address] [phone] documented as of this encounter Visit Diagnoses Not on filedocumented in this encounter Care Teams Squirrel Worker Relationship Specialty Start Date End Date Campos Lopes MD [address] [place] [address] PCP - General 05/21/09 documented as of this encounter
--- OUTSIDE RECORDS SUMMARY | 2024-10-09 11:23 | XMS_ITS | Encounter Summary ---
Author Organization [facility] Address [address] [place] [address] Care Team Providers Care Back Shoe Cutter Name Role Phone Campos Lopes MD Primary Care Provider [phone] Reason for Visit * Reason Onset Date Comments Other 06/22/2013 Encounter Details Date Type Department Care Team ([facility] st Contact Info) Description 06/22/2013 Telephone [facility] Surgical Oncology - [facility] [address] [place], [place] [phone] Tye Navarro MD 111 [facility], Level [address] [place] [address] Other Social History Tobacco Use [...] Miscellaneous Notes * Telephone Encounter - Ceci Clark RN - 06/22/2013 6236 EDT Return call to patient. Reports that she is more symptomatic and is considering having thyroid surgery. Requests to speak with Dr. Navarro today. Advised patient that I will give Dr. Navarro the message and her telephone #. CECI CLARK RN * Telephone Encounter - Gloria Gustafson - 06/22/2013 1035 EDT Patient calling, would like to speak with Ceci, did not want to give any details. documented in this encounter Plan of Treatment Upcoming Encounters Date Type Department Care Team (Late st Contact Info) Description 10/17/2024 10:20 EST Telemedicine [facility] Endocrinology - [facility] [address] [place], [place] [phone] Ariela Woods MD 62 [facility] [address] [place] [phone] 10/18/2024 9:15 EST Telemedicine [facility] FIGURINE MAKER Pelvic Medicine and Reconstructive Surgery - Medical Office Building [address] [phone] Kelsy Fierro MD [address] [place] [address] Medical Office [facility], [address] [phone] documented as of this encounter Visit Diagnoses Not on filedocumented in this encounter Care Teams Back Shoe Cutter Relationship Specialty Start Date End Date Campos Lopes MD [address] [place] [address] PCP - General 05/21/09 documented as of this encounter
--- OUTSIDE RECORDS SUMMARY | 2024-10-09 11:23 | XMS_ITS | Encounter Summary ---
Author Organization [facility] Address [address] [place] [address] Care Team Providers Care Electrical Engineering Professor Name Role Phone Campos Lopes MD Primary Care Provider [phone] Reason for Visit * Reason Comments Nasal Polyps ?PND New Patient Visit * Referral (Routine) - Closed Specialty Diagnoses / Procedures Referred By Lynnette osman Referred To Contact Otolaryngology Diagnoses Post-nasal drip Laceration of ear region Campos Lopes MD [address] [place] [address] Phone: tel: fax: Salomon Lima MD Phone: tel: fax: Referral ID Status Reason Start Date Expiration Date Visits Re quested Visits Authorized [id number] Closed 1 1 Encounter Details Date Type Department Care Team (Latest Contact Info) Description 10/25/2018 15:15 EST Office Visit [facility] ENT- Main [place] [address] [place], [place] [address] Salomon Lima MD [address] [place] [address] Laryngopharyngeal reflux (LPR) (Primary Dx) Discharge Disposition: Auto Discharge Social [...] documented in this encounter Discharge Diagnoses Diagnosis K21.9 Gastro-esophageal reflux disease without esophagitis-K21.9[ICD-10-CM] documented in this encounter Ordered Prescriptions Prescription Sig Dispense Quantity Refills Last Filled Start Date End Date ranitidine (ZANTAC) 150 mg tablet Take 2 Tabs by mouth 2 times daily for 60 days. 240 Tab 10/25/2018 12/24/2018 documented in this encounter Discharge Disposition Disposition Code Departure Means Destination Auto Discharge documented in this encounter Progress Notes * Carina Quiles MD - 10/25/2018 1515 EST Subjective: Patient ID: Maureen Thomas is an 78 y.o. female seen in consultation at the request of Shruthi Hussein MD for evaluation of postnasal drip. Chief Complaint [...] with voice changes (raspy), cough, throat clearing. Symptoms typically worse at night. She thought this was due to allergies and takes singulair and zyrtec intermittently without relief in symptoms. Denies heartburn. She tried flonase for four monthswithout improvement. She saw an braid folder today and was skin tested. Allergies include [...] pledgets and right nostril was topically anesthetized with cotton pledgets. After waiting an appropriate period of [...] significant postnasal discharge, voice changes, throat clearing found to have significant interarytenoid edema and secretions. Also [...] prn. Carina Quiles MD Otolaryngology Resident PGY-1, #[id number] Attestation statement: I saw and examined the [...] Telemedicine [facility] Endocrinology - [facility] [address] [place] [address] Ariela Woods MD 62 [facility] [address] [place] [address] 10/18/2024 9:15 EST Telemedicine [facility] INSULATION NOZZLEMAN Pelvic Medicine and Reconstructive Surgery - Medical Office Building [facility] [address] [place] [phone] Kelsy Fierro MD 2 [facility] Medical Office [facility], [address] [phone] documented as of this encounter Visit Diagnoses Diagnosis Laryngopharyngeal reflux (LPR)- Primary Other diseases of larynx documented in this encounter Care Teams Electrical Engineering Professor Relationship Specialty Start Date End Date Campos Lopes MD [address] [place], [place] [phone] PCP - General 05/21/09 documented as of this encounter
--- OUTSIDE RECORDS SUMMARY | 2024-10-09 11:23 | XMS_ITS | Encounter Summary ---
Author Organization [facility] Address [address] [place] [address] Care Team Providers Care Planning And Analysis Manager Name Role Phone Campos Lopes MD Primary Care Provider [phone] Reason for Visit * Reason Onset Date Comments Discuss Treatment Options 06/19/2015 Appointment Related 06/20/2015 Encounter Details Date Type Department Care Team (Late st Contact Info) Description 06/19/2015 Telephone [facility] Urology - [address] [phone] Angel Mcleod MD [address] [place] [address], [address] [place] [address] Discuss Treatment Options; Appointment Related Social History Tobacco Use Types [...] Notes * Telephone Encounter - Ginny Soriano Gretchen - 06/24/2015 1551 EDT Got the message. Have tried multiple times today to call the patient regarding surgery and her lineis busy. Will try again tomorrow. * Telephone Encounter - Sarah Yates RN - 06/24/2015 1316 EDT Urine Culture results received from [facility]. 10-100,000 Mixed Gram Positive Marivel, reviewed with shane Cash to proceed with scheduled OR procedure * Telephone Encounter - Ginny Soriano - 06/24/2015 0826 EDT Called patient, will try for OR time on 07/03 and patient is aware that I will confirm with her as soon as the OR confirms OR time that day. * Telephone Encounter - Ginny Soriano - 06/23/2015 1614 EDT Called patient, tentative date for surgery is 07/03, I will call her as soon as I hear from the OR with date. * Telephone Encounter - Mae Causey - 06/20/2015 1248 EDT Reason for Call: Discuss Treatment Options and Appointment Related Summary/Symptoms: Pt calling back following up on a previous conversation with Dr. Mcleod. Wanting to know about an appt for 06/26? Please call Mae Causey 06/20/2015 12:48 * Telephone Encounter - Angel Mcleod MD - 06/19/2015 0951 EDT I spoke with Maureen today. She is having a particularly severe flare up of bladder pain and frequency every 20 minutes. She states she had a urine culture growing skin bacteria and was treated with amoxicillin and then switched to nitrofurantoin but both of these seemed to make her symptoms worse.She is scheduled to have a repeat culture today. She inquires about a cystoscopy with hydrodistention, which I believe is reasonable. However, I told Maureen we would need to see a negative urine culture before proceeding. She will arrange to have the results of today's culture sent to our office. * Telephone Encounter - Maureen Leon - 06/19/2015 0903 [...] Description 10/17/2024 10:20 EST Telemedicine [facility] Endocrinology - [address] [phone] Ariela Woods MD [address] [place] [address] [place] [phone] 10/18/2024 9:15 EST Telemedicine [facility] TRAVELING FREIGHT AGENT Pelvic Medicine and Reconstructive Surgery - Medical Office Building [facility] [address] [place] [address] [phone] Kelsy Fierro MD [address] [place] [address] Medical Office Building, [address] [place] [phone] documented as of this encounter Visit Diagnoses Not on filedocumented in this encounter Care Teams Planning And Analysis Manager Relationship Specialty Start Date End Date Campos Lopes MD [address] [place] [address] PCP - General 05/21/09 documented as of this encounter
--- OUTSIDE RECORDS SUMMARY | 2024-10-09 11:23 | XMS_ITS | Encounter Summary ---
Author Organization [facility] Address [address] [place] [address] Care Team Providers Care Powersaw Supervisor Name Role Phone Campos Lopes MD Primary Care Provider [phone] Reason for Visit * Reason Comments Eye Problem Cataract evaluation - ref by Dr. Fay * Consult (Routine) - Closed Specialty Diagnoses / Procedures Referred By Lynnette osman Referred To Contact Ophthalmology Diagnoses Cataract Swetha Fay, OD [address] [facility] [address] [place] [address] Phone: tel: fax: [facility] Ophthalmology [address] [address] Phone: tel: fax: Referral ID Status Reason Start Date Expiration Date Visits Re quested Visits Authorized [id number] Closed 1 1 Encounter Details Date Type Department Care Team (Late st Contact Info) Description 01/15/2019 14:15 EDT Office Visit [facility] Ophthalmology [address] [address] Brenden Means MD [address] [place] [phone] Social History Tobacco Use Types Packs/Day Years [...] Progress Notes * Brenden Means MD - 01/15/2019 1415 EDT Chief Complaint Patient presents with ??? Eye Problem Cataract evaluation - ref by Dr. Fay HPI The patient is a 78 y.o. female is here for a Cataract evaluation referred by Dr Fay. She has a lot of glare and light sensitivity and night vision has been difficult. She has noticed a decreasein vision over the past year. she has [...] Thyroid problems Hematologic: NL Immunologic: Drug Allergy Residential Nurse: Exposures: Other: Attestation: Base Eye Exam Visual [...] Normal Refraction Manifest Refraction (Auto) Sphere Cylinder [place] Right +1.50 +1.75 010 20/20 Left +0.75 +1.00 155 20/20 Manifest Refraction #2 Sphere Cylinder [place] Right +1.50 +0.75 005 20/25-1 Left +0.75 +1.25 010 20/25-1 DIAGNOSTIC TESTS: IMPRESSION & PLAN: 1. Cataract, both eyes Visually significant -Discussed cataract surgery in detail including risks (including but not limited to infection, retinal detachment, loss of vision/eye, corneal/macular edema, need for additional surgery), benefits, and alternatives and the patient elects to proceed with [...] no Risk for anisometropia: low Refractive aim: [place] Referred by: Dr. Rhonda Fay Discussed. She [...] 10:20 EST Telemedicine [facility] Endocrinology - [address] [address] Ariela Woods MD [address] [place] [address] [place] [phone] 10/18/2024 9:15 EST Telemedicine [facility] CLOCK SMITH Pelvic Medicine and Reconstructive Surgery - Medical Office [facility] [address] [place] [address] Kelsy Fierro MD 2 [facility] Medical Office [facility], [address] [phone] documented as of this encounter Visit Diagnoses Diagnosis Combined form of senile cataract of right eye- Primary Combined form of senile cataract of left eye Posterior vitreous detachment of right eye 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) documented in this encounter Eye Exam Visual [...] Mood/Affect: Normal Dilation Both eyes: 1.0% Mydriacyl, 2 .5% Phenylephrine @ 14:45 Glare Testing (BAT) Off High Right eye 20/25-1 20/25 Left eye 20/25-1 20/25-1 External Exam Right eye Left eye External Normal Normal Slit Lamp Exam Right eye Left eye Lids/Lashes Normal Normal Conjunctiva/Sclera White and quiet White and adele et Cornea ABMD changes ABMD changes Anterior Chamber Deep and quiet Deep and quiet Iris Round and reactive Round and maria luisa ctive Lens 2+ Nuclear sclerosis , Trace Cortical cataract 2+ Nuclear sclerosis, Trace Cortical cataract, Trace Posterior subcapsular cataract Vitreous Posterior vitreous detachment No rmal Fundus Exam Right eye Left eye Disc Normal Normal C/D Ratio 0.25 0.35 Macula Normal Few Drusen Vessels Normal Normal Periphery Normal Normal Manifest Refraction #1 (Auto) Sphere Cylinder [place] Right eye +1.50 +1.75 010 20/20 Left eye +0.75 +1.00 155 20/20 Manifest Refraction #2 Sphere Cylinder [place] Right eye +1.50 +0.75 005 20/25-1 Left eye +0.75 +1.25 010 20/25-1 Care Teams Powersaw Supervisor Relationship Specialty Start Date End Date Campos Lopes MD [address] [place] [address] PCP - General 05/21/09 documented as of this encounter
--- OUTSIDE RECORDS SUMMARY | 2024-10-09 11:23 | XMS_ITS | Encounter Summary ---
Author Organization [facility] Address [address] [place] [address] Care Team Providers Care Shirring Machine Operator Automatic Name Role Phone Campos Lopes MD Primary Care Provider [phone] Encounter Details Date Type Department Care Team (Latest Contact Info) Description 06/23/2016 13:45 EDT - 06/23/2016 23:59 EDT Hospital Encounter [facility] [place] [address] Godwin Carney [address] [place] [phone] Discharge Disposition: Home or Self Care Social [...] Discharge Diagnoses Diagnosis M79.645 Pain in left finger(s)-M79.645[ICD-10-CM] documented in this encounter Medications at Time [...] Code Departure Means Destination Home or Self Mcfp documented in this encounter Plan of Treatment Upcoming Encounters Date Type Department Care Team (Late st Contact Info) Description 10/17/2024 10:20 EST Telemedicine [facility] Endocrinology - [address] [phone] Ariela Woods MD [address] [place] [phone] 10/18/2024 9:15 EST Telemedicine [facility] SUGAR GRINDER Pelvic Medicine and Reconstructive Surgery - Medical Office Building [facility] [address] [place] [phone] Kelsy Fierro MD [address] [place] [address] Office [facility], [address] [phone] documented as of this encounter Visit Diagnoses Not on filedocumented in this encounter Care Teams Shirring Machine Operator Automatic Relationship Specialty Start Date End Date Campos Lopes MD [address] [place] [address] PCP - General 05/21/09 documented as of this encounter
--- OUTSIDE RECORDS SUMMARY | 2024-10-09 11:23 | XMS_ITS | Encounter Summary ---
Author Organization [facility] Address [address] [place] [address] Care Team Providers Care Breaker Hand Name Role Phone Campos Lopes MD Primary Care Provider [phone] Encounter Details Date Type Department Care Team (Late Contact Info) Description 01/02/2013 Results Only [facility] Laboratory Services - [facility] [address] [place] [phone] Hermes Bocanegra MD [address] [place] [address] Social History Tobacco Use Types Packs/Day Years [...] Description 10/17/2024 10:20 EST Telemedicine [facility] Endocrinology - [facility] [address] [place] [address] Ariela Woods MD [address] [facility] [address] [place] [phone] 10/18/2024 9:15 EST Telemedicine [facility] FUEL INJECTION SERVICER Pelvic Medicine and Reconstructive Surgery - Medical Office Building [facility] [address] [place] [address] Kelsy Fierro MD [address] [place] [address] Medical Office Building, [address] [phone] documented as of this encounter Procedures Procedure Name Priority Date/Time Associated Diagnosis Comments CYTOPATHOLOGY Routine 01/02/2013 0:00 EDT documented in this encounter Results * CYTOPATHOLOGY (01/02/2013 0:00 EDT) Pathology Report: CYTOPATHOLOGY REPORT Reports generated via electronic interface contain original data; however they are lacking the format of the original report. Caution should be taken when reading/interpreti ng unformatted reports. Name: ? MAUREEN BAEZ ? Accession #: ? [id number] : ? 1940 (Age: 72) ??F ?Collect Date: ? 01/02/2013 Location: ? [facility] ? Receive Date: ? 01/03/2013 Provider: ? HERMES BOCANEGRA MD Copy to: ? CYTOLOGIC DIAGNOSIS: ? Urine, voided, cytologic evaluation: 1. ?Rare clusters of urothelial cells present; favor reactive-type changes. ??See comment. 2. ? Rare red blood cell casts identified. ? COMMENT: ? Rare clusters of urothelial cells with degenerative features are identified in this voided urine sample. ??The urothelial cells have low nuclear to cytoplasmic ratios and show reactive-type features including vacuolated cytoplasm. ??In addition, rare red blood cell casts are noted. ??(Dr. Read)/[facility] Document reviewed and electronically signed by: ? CAN READ MD Report Date: ??01/03/2013 17:12 By the signature above, the attending physician certifies that he/she has personally conducted a gross and/or microscopic examination of the described specimens and rendered or confirmed the above diagnosis. Specimen Type: ? Urine, Voided Clinical History: ? Pelvic pain; frequency. ??clinical diagnosis code: ??788.41 ? Gross Description: ? 60ccs of clear yellow fluid (Cytolyt added) were received and processed by selective cellular enhancement technique. ? End of Report [facility] 01/02/2013 01/03/2013 8:3 4 EDT us Hermes Bocanegra MD PATHOLOGY ORDERABLES Final R esult Performing Organization Address City/State/[facility] Co de Phone Number [facility] [address] [place] [address] documented in this encounter Visit Diagnoses Not on filedocumented in this encounter Care Teams Breaker Hand Relationship Specialty Start Date End Date Campos Lopes MD [address] [place] [address] PCP - General 05/21/09 documented as of this encounter
--- OUTSIDE RECORDS SUMMARY | 2024-10-09 11:23 | XMS_ITS | Encounter Summary ---
Author Organization [facility] Address [address] [place] [address] Care Team Providers Care Nc Manager Name Role Phone Campos Lopes MD Primary Care Provider [phone] Reason for Visit * Reason Onset Date Comments Advice Only 10/11/2014 Encounter Details Date Type Department Care Team (Late st Contact Info) Description 10/11/2014 Telephone [facility] Surgical Oncology - [facility] [address] [place], [place] [phone] Tye Navarro MD [address] [facility], [address] [place] [phone] Advice Only Social History Tobacco Use Types Packs/Day [...] * Telephone Encounter - Deepti Olea - 10/11/2014 1507 EST I spoke to Maureen and toJonathanld her it was not our policy to do a phone consults since she was last see close to three years ago. I said I would be happy to set her up with an appointment and we would try to make it later in the day since she was traveling a distance. DEEPTI OLEA RN * Telephone Encounter - KaushalJaye connollyAngela - 10/11/2014 1012 EST Pt was seen 04/17/12 and would like to possibly see judy again to discuss further having her thyroid removed but would like to speak w/ him over the phone before setting up an appt as lives 2 hrs away documented in this encounter Plan of Treatment Upcoming Encounters Date Type Department Care Team (Late st Contact Info) Description 10/17/2024 10:20 EST Telemedicine [facility] Endocrinology - [address] [phone] Ariela Woods MD [address] [facility] [address] [place] [phone] 10/18/2024 9:15 EST Telemedicine [facility] TENNIS PLAYER Pelvic Medicine and Reconstructive Surgery - Medical Office [facility] [address] [place] [phone] Kelsy Fierro MD [facility] Medical Office [facility], [address] [place] [phone] documented as of this encounter Visit Diagnoses Not on filedocumented in this encounter Care Teams Nc Manager Relationship Specialty Start Date End Date Campos Lopes MD [address] [place], [place] [phone] PCP - General 05/21/09 documented as of this encounter
--- OUTSIDE RECORDS SUMMARY | 2024-10-09 11:24 | XMS_ITS | Encounter Summary ---
Author Organization [facility] Address [address] [place] [address] Care Team Providers Care Machined Parts Quality Inspector Name Role Phone Campos Lopes MD Primary Care Provider [phone] Encounter Details Date Type Department Care Team (Latest Contact Info) Description 09/03/2009 11:04 EST - 09/03/2009 23:59 EST Hospital Encounter [facility] [address] [place] [address] Mayelin Avalos MD [address] [phone] Discharge Disposition: Home or Self Care Social History Tobacco Use Types Packs/Day Years Used Date Smoking Tobacco: Never Assessed Comments Unknown Sex and Gender Information Value Date Recorded Sex Assigned at Not on file Legal Sex Female 18:08 EST Gender Identity Female 02/24/2021 8:54 EDT Sexual Orientation Not on file documented as of this encounter Discharge Disposition Disposition Code Departure Means Destination Home or Self Jail documented in this encounter Plan of Treatment Upcoming Encounters Date Type Department Care Team (Late st Contact Info) Description 10/17/2024 10:20 EST Telemedicine [facility] Endocrinology - [facility] [address] [place], [place] [phone] Ariela Woods MD [address] [facility] [address] [place] [address] 10/18/2024 9:15 EST Telemedicine [facility] BLOCK OUT MACHINE OPERATOR Pelvic Medicine and Reconstructive Surgery - Medical Office Building [facility] [address] [place] [phone] Kelsy Fierro MD 2 [facility] Medical Office Building, [address] [place] [phone] documented as of this encounter Procedures Procedure Name Priority Date/Time Associated Diagnosis Comments ZZVAGINITIS EXAM Routine 11/05/2009 16:2 3 EST UREAPLASMA PCR Routine 11/05/2009 16:21 EST MYCOPLASMA HOMINIS PCR-TEMP UNAVALABLE Routine 11/05/2009 16:21 EST CHLAMYDIA/N. GONORRHOEAE AMPLIFIED NUCLEIC ACID Routine 11/05/2009 16:20 EST HEPATITIS B CORE ANTIBODY, IGM (ANTI-HBC, IGM), SERUM Routine 11/05/2009 16:06 EST SYPHILIS SEROLOGY Routine 11/05/2009 16: 06 EST HEPATITIS C AB W REFLEX TO HCV RNA BY PCR Routine 11/05/2009 16:06 EST HEP BE AG + AB Routine 11/05/2009 16:06 EST HSV 1 AND 2 ANTIBODY, IGG Routine 11/05/2009 16:06 EST HEPATITIS B CORE ANTIBODY (TOTAL) Routine 11/05/2009 16:06 EST HERPES 1/2 IGM ANTIBODY Routine 11/05/2009 16:06 EST HEPATITIS B SURFACE ANTIBODY Routine 11/05/2009 16:06 EST HEPATITIS B SURFACE ANTIGEN Routine 11/05/2009 16:06 EST HIV 1/2 ANTIGEN AND ANTIBODY, 4TH GENERATION Routine 11/05/2009 16:06 EST CYTOPATHOLOGY Routine 11/05/2009 0:00 EST BACTERIAL CULTURE, URINE Routine 09/29/2009 14:34 EST documented in this encounter Results * VAGINITIS EXAM (11/05/2009 16:23 EST) Specimen Description Vagina [facility] Gram Smear Result No yeast or clue cells seen. [facility] Result No Trichomonas antigen detected. [facility] Report Status Final 11/05/2009 [facility] Specimen of unknown material (specimen) 11/05/2009 16:23 EST 11/05/2009 18:46 EST Mayelin Avalos MD MICROBIOLOGY - GENERAL [facility] Final Result Performing Organization Address City/State/[facility] Co de Phone Number [facility] [address] [place] [address] * CULTURE, UREAPLASMA UREALYTICUM (11/05/2009 16:21 EST) Specimen Description Vagina [facility] Result UREAPLASMA UREALYTICUM DETECTED ? [facility] Report Status FINAL [id number] ? Performed or Referred by: [facility] Dpt of Lab Med and Path, [address] ? [place] [address], Lab Dir: Mike Aguirre III, ? MD ? [facility] Specimen of unknown material (specimen) 11/05/2009 16:21 EST 11/05/2009 18:56 EST us Mayelin Avalos MD MICROBIOLOGY - GENERAL [facility] BLE Final Result [facility] [address] [place] [address] * CULTURE, MYCOPLASMA HOMINIS (11/05/2009 16:21 EST) Specimen Description Vagina [facility] Result No growth after 5 days ? [facility] Report Status FINAL [id number] ? Performed or Referred by: [facility] Dpt of Lab Med and Path, [address] , [place] [address], Lab Dir: Mike Aguirre III, ? MD ? [facility] Specimen of unknown material (specimen) 11/05/2009 16:21 EST 11/05/2009 18:56 EST Mayelin Avalos MD MICROBIOLOGY - GENERAL [facility] Final Result Performing Organization Address [facility] Co de Phone Number [facility] [address] [place] [address] * CHLAMYDIA/GC AMPLIFIED (11/05/2009 16:20 EST) Pathologist [facility] Specimen Description Cervix [facility] Result No Chlamydia trachomatis DNA detected by teletypesetter mediated amplification. [facility] Result No Neisseria gonorrhoeae DNA detected by teletypesetter mediated amplification. [facility] Specimen of unknown material (specimen) 11/05/2009 16:20 EST 11/05/2009 18:57 EST Mayelin Avalos MD MICROBIOLOGY - GENERAL [facility] Final Result Performing Organization Address [facility] de Phone Number [facility] [address] [place] [address] * HSV 1 AND 2 ANTIBODY, IGG (11/05/2009 16:06 EST) [facility] HSV 1 Ab, IgG Negative Reference range: Negative [facility] HSV2 IgG Ab Negative Reference range: Negative Performed by: [facility] Dpt Lab Med and Path [address], [address] ?? [place] [address], Lab Dir: ??Mike Aguirre III, M.D. [facility] Blood specimen (specimen) 11/05/2009 16:06 EST 11/05/2009 20:01 EST Mayelin Avalos MD IMMUNOLOGY AND SEROLOGY ORDER JENISE Final Result Performing Organization Address [facility] Co de Phone Number [facility] [address] [place] [address] * HERPES 1/2 IGM ANTIBODY (11/05/2009 16:06 EST) [facility] HSV 1 IgM, IFA <1:20 [facility] HSV 2 IgM, IFA <1:20 REFERENCE RANGE: ??<1:20 ? INTERPRETIVE CRITERIA: ?<1:20 ??Antibody Not Detected ?> or = 1:20 ??Antibody Detected ? The IFA procedure for measuring IgM antibodies to ? HSV 1 and HSV 2 detects both type-common and type- ? specific HSV antibodies. ??Thus, elevated titers to ? both HSV 1 and HSV 2 may represent crossreactive ? HSV antibodies rather than exposure to both HSV 1 ? and HSV 2. ? Test Performed by: [facility] ? [address] ? [place] [address] ? Canal Lock Tender Chief Operator, Sorin Lees MD ? [facility] Blood specimen (specimen) 11/05/2009 16:06 EST 11/05/2009 20:01 EST Mayelin Avalos MD IMMUNOLOGY AND SEROLOGY ORDER JENISE Final Result Performing Organization Address [facility] de Phone Number [facility] [address] [place] [address] * HEPATITIS C ANTIBODY (11/05/2009 16:06 EST) [facility] Hepatitis C Ab Negative Reference Range: ??Negative [facility] Blood specimen (specimen) 11/05/2009 16:06 EST 11/05/2009 20:01 EST Mayelin Avalos MD CHEMISTRY & BLOOD GAS ORDERAB LES Final Result Performing Organization Address [facility] Phone Number [facility] [address] [place] [address] * HEPATITIS BE ANTIGEN AND ANTIBODY (11/05/2009 16:06 EST) [facility] Hepatitis Be Antigen None detected Reference range: None Detected [facility] Hepatitis Be Antibody None detected Reference range: None Detected Performed by: [facility] [address], [place], ?? [place] [address], [employer] Mdm Architect: Ivett Bryan, Ph.D. [facility] Blood specimen (specimen) 11/05/2009 16:06 EST 11/05/2009 20:01 EST Mayelin Avalos MD CHEMISTRY & BLOOD GAS ORDERAB LES Final Result Performing Organization Address [facility] de Phone Number [facility] [address] [place] [address] * HEPATITIS B CORE ANTIBODY, IGM (ANTI-HBC, IGM), SERUM (11/05/2009 16:06 EST) [facility] Hepatitis B Core IgM Antibody Negative Reference range: Negative Performed by: [facility] [address], [place] ?? [place] [address], [employer] Mdm Architect: Ivett Bryan, Ph.D. [facility] Blood specimen (specimen) 11/05/2009 16:06 EST 11/05/2009 20:01 EST Mayelin Avalos MD CHEMISTRY & BLOOD GAS ORDERAB LES Final Result Performing Organization Address [facility] de Phone Number [facility] [address] [place] [address] * HEPATITIS B CORE ANTIBODY (11/05/2009 16:06 EST) Hep B Core Ab Negative Reference Range: ??Negative Interpretati on depends on clinical setting. [facility] Blood specimen (specimen) 11/05/2009 16:06 EST 11/05/2009 20:01 EST us Mayelin Avalos MD CHEMISTRY & BLOOD GAS ORDERAB LES Final Result Performing Organization Address [facility] de [place] [address] * HEPATITIS B SURFACE ANTIGEN (11/05/2009 16:06 EST) Hepatitis B Surface Ag Negative Reference Range: ??Negative [facility] Blood specimen (specimen) 11/05/2009 16:06 EST 11/05/2009 20:01 EST Mayelin Avalos MD CHEMISTRY & BLOOD GAS ORDERAB LES Final Result Performing Organization Address [facility] de Phone Number [facility] [address] [place] [address] * HEPATITIS B SURFACE ANTIBODY (11/05/2009 16:06 EST) Hepatitis B Surface Ab Positive Reference Range: ??Negative Interpretati on depends on clinical setting. [facility] Blood specimen (specimen) 11/05/2009 16:06 EST 11/05/2009 20:01 EST Mayelin Avalos MD CHEMISTRY & BLOOD GAS ORDERAB LES Final Result Performing Organization Address [facility] de Phone Number [facility] [address] [place] [address] * SYPHILIS SEROLOGY (11/05/2009 16:06 EST) Pathologist [facility] Syphilis Serology Interpretation: Nonreactive Reference Range: Nonreactive [facility] Blood specimen (specimen) 11/05/2009 16:06 EST 11/05/2009 20:01 EST us Mayelin Avalos MD IMMUNOLOGY AND SEROLOGY ORDER JENISE Final Result Performing Organization Address [facility] de Phone Number [facility] [address] [place] [address] * HIV ANTIBODY (COLE) (11/05/2009 16:06 EST) [facility] HIV 1/2 Antibody Negative Reference Range: ??Negative [facility] Blood specimen (specimen) 11/05/2009 16:06 EST 11/05/2009 20:01 EST us Mayelin Avalos MD IMMUNOLOGY AND SEROLOGY ORDER JENISE Final Result Performing Organization Address [facility] Phone Number [facility] [address] [place] [address] * CYTOPATHOLOGY (11/05/2009 0:00 EST) Pathologist [facility] Pathology Report: CYTOPATHOLOGY REPORT ? Reports generated via electronic interface contain original data; ? however they are lacking the format of the original report. ? Caution should be taken when reading/interpreti ng unformatted reports. ? Name: ? TONA BAEZ ? Accession #: ? [id number] ? : ? 1940 (Age: 69) ??F ?Collect Date: ? 11/05/2009 ? Location: ? [facility] ? Receive Date: ? 11/06/2009 ? Provider: ?MAYELIN A KIM MD ? Copy to: ? Specimen/Source: ?Pap Test, Cervix/Endocervix, ThinPrep Imaging System ? with manual evaluation ? Last Menstrual Period: ? Hormonal/Contracep tive Status: ? Yes: Estrace vaginal cream ? Other: ? HPVA - HPV testing requested if ASC-US on the current ThinPrep Pap test. ? SPECIMEN ADEQUACY ? Satisfactory for Evaluation ? - transformation zone component present ? GENERAL CATEGORIZATION ? Negative for Intraepithelial Lesion or Malignancy ? Document reviewed and electronically signed by: ? Mikayla Verville,CT(ASCP) ? Report Date: ??11/07/2009 08:14 ? End of Report ? [facility] 11/05/2009 11/06/2009 us Mayelin Avalos MD PATHOLOGY ORDERABLES Final Re sult Performing Organization Address [facility] de Phone Number [facility] [address] [place] [address] * BACTERIAL CULTURE, URINE (09/29/2009 14:34 EST) Specimen Description Urine [facility] Result Less than 10,000 CFU/ml Gram positive organism [facility] Report Status Final 09/30/2009 [facility] Urine specimen (specimen) 09/29/2009 14:34 EST 09/29/2009 16:46 EST us Mayelin Avalos MD MICROBIOLOGY - GENERAL [facility] Final Result Performing Organization Address [facility] de Phone Number [facility] [address] [place] [address] documented in this encounter Visit Diagnoses Not on filedocumented in this encounter Care Teams Machined Parts Quality Inspector Relationship Specialty Start Date End Date Campos Lopes MD [address] [place], [place] [phone] PCP - General 05/21/09 documented as of this encounter
--- OUTSIDE RECORDS SUMMARY | 2024-10-09 11:24 | XMS_ITS | Encounter Summary ---
Author Organization [facility] Address [address] [place] [address] Care Team Providers Care Facility Engineer Name Role Phone Campos Lopes MD Primary Care Provider [phone] Encounter Details Date Type Department Care Team (Late st Contact Info) Description 06/25/2009 Orders Only [facility] Pelvic Medicine and Reconstructive Surgery - Medical Office [facility] [address] [place] [address] Melina Avalos MD [address] [phone] Social History Tobacco Use Types Packs/Day Years [...] EST Telemedicine [facility] Endocrinology - [facility] [address] [place] [address] Ariela Woods MD [address] [facility] [address] [place] [address] 10/18/2024 9:15 EST Telemedicine [facility] LATHE OPERATOR Pelvic Medicine and Reconstructive Surgery - Medical Office Building [facility] [address] [place] [address] Kelsy Fierro MD 2 [facility] Medical Office Building, [address] [place] [phone] documented as of this encounter Procedures Procedure Name Priority Date/Time Associated Diagnosis Comments RAD US RETROPERITONEAL COMPLETE 09/03/2009 12:07 EST documented in this encounter Results * RAD US RETROPERITONEAL COMPLETE (09/03/2009 12:07 EST) Anatomical Region Laterality Modality Other 09/03/2009 12:0 7 EST 09/03/2009 14:19 EST Narrative 09/03/2009 14:19 EST Pelvic ultrasound. US RETROPERITONEAL COMPLETE ??Sep 03, 2009 12:07:00 PM Clinical History/Comments: Hematuria. Comparison: None Findings: Pelvis was scanned using transabdominal and endovaginal technique. The retroperitoneum name was scanned transabdominal The transabdominal retroperitoneal study shows both kidneys. The right kidney measures 10.9 cm in length. The left kidney measures 11.3 cm in length. There are no stones, masses or hydronephrosis of the kidneys. The bladder appears normal and both ureteral jets were identified. Conclusion: normal rectoperineal study. Transabdominal and endovaginal scanning of the pelvis. Exam demonstrates uterus measuring 8.5 x 4.1 by 4.8 cm in size. There is a submucosal fibroid in the fundus measuring proximally 12 mm in maximum dimension. A small calcification of the posterior fundus is also noted The right ovary is seen measuring one point 3 x 1.7 by 3.1 cm. The left ovary is seen measuring 3.4 x 1.8 x 1.9 cm. No adnexal mass or pathology seen. The endometrium is abnormal measuring 13 mm in thickness. Several nabothian cysts are identified within the cervix. No free fluid is seen. Conclusion: Submucosal fibroid measuring 12 mm in size and endometrial thickening a 13 mm No adnexal masses or ovarian pathology seen. Procedure Note 09/03/2009 Pelvic ultrasound. US RETROPERITONEAL COMPLETE Sep 03, 2009 12:07:00 PM Clinical History/Comments: Hematuria. Comparison: None Findings: Pelvis was scanned using transabdominal and endovaginal technique. The retroperitoneum name was scanned transabdominal The transabdominal retroperitoneal study shows both kidneys. The right kidney measures 10.9 cm in length. The left kidney measures 11.3 cm in length. There are no stones, masses or hydronephrosis of the kidneys. The bladder appears normal and both ureteral jets were identified. Conclusion: normal rectoperineal study. Transabdominal and endovaginal scanning of the pelvis. Exam demonstrates uterus measuring 8.5 x 4.1 by 4.8 cm in size. There is a submucosal fibroid in the fundus measuring proximally 12 mm in maximum dimension. A small calcification of the posterior fundus is also noted The right ovary is seen measuring one point 3 x 1.7 by 3.1 cm. The left ovary is seen measuring 3.4 x 1.8 x 1.9 cm. No adnexal mass or pathology seen. The endometrium is abnormal measuring 13 mm in thickness. Several nabothian cysts are identified within the cervix. No free fluid is seen. Conclusion: Submucosal fibroid measuring 12 mm in size and endometrial thickening a 13 mm No adnexal masses or ovarian pathology seen. us Melina Avalos MD IMG US ORDERABLES Final Resul t documented in this encounter Visit Diagnoses Not on filedocumented in this encounter Care Teams Facility Engineer Relationship Specialty Start Date End Date Campos Lopes MD [address] [place] [address] PCP - General 05/21/09 documented as of this encounter
--- OUTSIDE RECORDS SUMMARY | 2024-10-09 11:24 | XMS_ITS | Encounter Summary ---
Author Organization [facility] Address [address] [place] [address] Care Team Providers Care Finish Mill Operator Name Role Phone Campos Ignacio MD Primary Care Provider [phone] Reason for Visit * Reason Onset Date Comments Letter for School/Work 04/17/2012 Encounter Details Date Type Department Care Team (Late st Contact Info) Description 04/17/2012 Telephone [facility] Endocrinology - [facility] [address] [place] [address] Brent Navarrete MD 62 [facility] [address] [place] [address] Letter for School/Work Social History Tobacco Use Types Packs/Day Years [...] encounter Miscellaneous Notes * Telephone Encounter - Trang Kathleen - 04/17/[address] Ignacio's office. * Telephone Encounter - Lisa Matthew - 04/17/2012 0833 EDT Wants her recent lab results sent to dr ignacio his phone number is [phone] he has received it and she said she called 3 weeks ago for it to be done documented in this encounter Plan of Treatment Upcoming Encounters Date Type Department Care Team (Late st Contact Info) Description 10/17/2024 10:20 EST Telemedicine [facility] Endocrinology - [facility] [address] [place], [place] [phone] Ariela Woods MD 62 [facility] [address] [place] [phone] 10/18/2024 9:15 EST Telemedicine [facility] HUMANITIES TEACHER Pelvic Medicine and Reconstructive Surgery - Medical Office [facility] [address] [place] [phone] Kelsy Fierro MD [address] [place] [address] Medical Office [facility], [address] [place] [phone] documented as of this encounter Visit Diagnoses Not on filedocumented in this encounter Care Teams Finish Mill Operator Relationship Specialty Start Date End Date Campos Ignacio MD [address] [place], [place] [phone] PCP - General 05/21/09 documented as of this encounter
--- OUTSIDE RECORDS SUMMARY | 2024-10-09 11:24 | XMS_ITS | Encounter Summary ---
Author Organization [facility] Address [address] [place] [address] Care Team Providers Care Tube Teller Name Role Phone Campos Lopes MD Primary Care Provider [phone] Encounter Details Date Type Department Care Team (Late Contact Info) Description 08/12/2000 Results Only [facility] [address] [place] [address] Wero Rowell MD [address] [place], [place] [address] Social History Tobacco Use Types Packs/Day Years [...] Contact Info) Description 10/17/2024 10:20 EST Telemedicine [facility] Endocrinology - [facility] [address] [place], [place] [phone] Ariela Woods MD 62 [facility] [address] [place] [address] 10/18/2024 9:15 EST Telemedicine [facility] DISPUTE RESOLUTION SPECIALIST Pelvic Medicine and Reconstructive Surgery - Medical Office [facility] [address] [place] [address] Kelsy Fierro MD 2 [facility] Eloise Santos, Medical Office Building, [address] [place] [address] documented as of this encounter Procedures Procedure Name Priority Date/Time Associated Diagnosis Comments CYTOPATHOLOGY Routine 08/12/2000 0:00 EST documented in this encounter Results * CYTOPATHOLOGY (08/12/2000 0:00 EST) Pathology Report: CYTOPATHOLOGY REPORT Reports generated via electronic interface contain original data; however they are lacking the format of the original report. Caution should be taken when reading/interpreti ng unformatted reports. Name: ? MAUREEN BAEZ ? Accession #: ? [id number] : ? 1940 (Age: 60) ??F ?Collect Date: ? 08/12/2000 Location: ? [facility] ? Receive Date: ? 08/16/2000 Provider: ?WERO ROWELL MD Copy to: ? Specimen/Source: ?Conventional Pap Test, Cervix/Endocervix Last Menstrual Period: ? SPECIMEN ADEQUACY ? Satisfactory for evaluation. GENERAL CATEGORIZATION ? Within Normal Limits ? Document reviewed and electronically signed by: ? Nicolle Duenas, ??CT(ASCP) ? Report Date: ??08/24/2000 09:53 End of Report [facility] 08/12/2000 08/16/2000 us Wero Rowell MD PATHOLOGY ORDERABLES Final Resul t [facility] [address] [place] [address] documented in this encounter Visit Diagnoses Not on filedocumented in this encounter Care Teams Tube Teller Relationship Specialty Start Date End Date Campos Lopes MD [address] [place], [place] [phone] PCP - General 05/21/09 documented as of this encounter
--- OUTSIDE RECORDS SUMMARY | 2024-10-09 11:24 | XMS_ITS | Encounter Summary ---
Author Organization [facility] Address [address] [place] [address] Care Team Providers Care Smoke Tester Name Role Phone Campos Lopes MD Primary Care Provider [phone] Encounter Details Date Type Department Care Team (Late st Contact Info) Description 12/26/[address] [facility] Pelvic Medicine and Reconstructive Surgery - Medical Office [facility] [address] [place] [address] Mayelin Avalos MD [address] [phone] Social History Tobacco Use Types Packs/Day Years [...] Info) Description 10/17/2024 10:[address] [facility] Endocrinology - [facility] [address] [place] [address] Ariela Woods MD 62 [facility] [address] [place] [address] 10/18/2024 9:[address] [facility] AVIATION ELECTRICIAN Pelvic Medicine and Reconstructive Surgery - Medical Office Building [facility] [address] [place] [address] Kelsy Fierro MD 2 [facility] Medical Office Building, [address] [place] [phone] documented as of this encounter Procedures Procedure Name Priority Date/Time Associated Diagnosis Comments BACTERIAL CULTURE, URINE Routine 12/26/2009 11:30 EDT SURGICAL PATHOLOGY Routine 12/26/2009 0:00 EDT documented in this encounter Results * BACTERIAL CULTURE, URINE (12/26/2009 11:30 EDT) Specimen Description Urine [facility] Result 10,000 to 100,000 CFU/ml LACTOBACILLU S SPECIES Less than 10,000 CFU/ml Mixed gram positive growth [facility] Report Status Final 12/28/2009 [facility] Urine specimen (specimen) 12/26/2009 11:30 EDT 12/26/2009 17:18 EDT Mayelin Avalos MD MICROBIOLOGY - [facility]AL [facility] Final Result Performing Organization Address City/State/[facility] Co de Phone Number [facility] [address] [place] [address] * SURGICAL PATHOLOGY (12/26/2009 0:00 EDT) Pathology Report: SURGICAL PATHOLOGY REPORT ? Reports generated via electronic interface contain original data; ? however they are lacking the format of the original report. ? Caution should be taken when reading/interpreti ng unformatted reports. ? Name: ? ELZOHAIRY, MAUREEN L ? Accession #: ? [id number] ? : ? 1940 (Age: 69) ??F ? Collect Date: ? 12/26/2009 ? Location: ? [facility] ? Receive Date: ? 12/26/2009 ? Provider: MAYELIN A KIM MD ? Copy to: ? Final Pathologic Diagnosis: ? Endometrium, biopsy: ? 1. ?Strips of atrophic endometrium. ? 2. ? Benign squamous and endocervical tissue. ? Document reviewed and electronically signed by: ? JON LATHAM MD ? Report ??Date: 12/31/2009 10:28 ? By the signature above, the attending physician certifies that he/she has ? personally conducted a gross and/or microscopic examination of the described ? specimens and rendered or confirmed the above diagnosis. ? Specimen(s) Received: ? Endometrial biopsy ? Clinical History: ? Clinical diagnosis code: 627.1 ? Gross Description: ? Received in formalin labelled Elzohairy, Maureen is a 0.8 x 0.5 x 0.3 cm aggregate of predominantly white mucus admixed with scant, stuart tissue fragments. The specimen is filtered and entirely submitted in a single cassette. ??(L. ? Gary)/chasidy ? End of Report ? [facility] 12/26/2009 12/26/2009 8:2 3 EDT us Mayelin Avalos MD PATHOLOGY ORDERABLES Final Re sult [facility] [address] [place] [address] documented in this encounter Visit Diagnoses Not on filedocumented in this encounter Care Teams Smoke Tester Relationship Specialty Start Date End Date Campos Lopes MD [address] [place] [address] PCP - General 05/21/09 documented as of this encounter
--- OUTSIDE RECORDS SUMMARY | 2024-10-09 11:24 | XMS_ITS | Encounter Summary ---
Author Organization [facility] Address [address] [place] [address] Care Team Providers Care Seismograph Chief Name Role Phone Campos Lopes MD Primary Care Provider [phone] Encounter Details Date Type Department Care Team (Late Contact Info) Description 06/29/2011 Orders Only [facility] Pelvic Medicine and Reconstructive Surgery - Medical Office [facility] [address] [place] [address] Makenzie Neil, JAZIEL Urinary frequency (Primary Dx) Social History [...] Refills Last Filled Start Date End Date estradiol (ESTRACE) 0.01 % (0.1 mg/g) vaginal cream Place vaginally. Per vagina 2 x weekly 1 Tube 11 06/29/2011 01/26/2023 documented in this encounter Plan of Treatment Upcoming Encounters Date Type Department Care Team (Late Contact Info) Description 10/17/2024 10:20 EST Telemedicine [facility] Endocrinology - [place] [address] [place], [place] [phone] Ariela Woods MD [address] [place] [address] 10/18/2024 9:15 EST Telemedicine [facility] REGIONAL EDUCATION COORDINATOR Pelvic Medicine and Reconstructive Surgery - Medical Office Building [facility] [address] [place] [address] Kelsy Fierro MD 2 [facility] Medical Office [facility], [address] [place] [phone] documented as of this encounter Visit Diagnoses Diagnosis Urinary frequency- Primary documented in this encounter Discontinued Medications Medication Sig Discontinue Reason Start Date End Da te conjugated estrogens 0.625mg/G (PREMARIN) vaginal cream Place vaginally twice a week. At bed time for 7 days, then at bedtime twice a week Alternate therapy 11/26/2010 06/29/2011 documented as of this encounter Care Teams Seismograph Chief Relationship Specialty Start Date End Date Campos Lopes MD [address] [place] [address] PCP - General 05/21/09 documented as of this encounter
--- OUTSIDE RECORDS SUMMARY | 2024-10-09 11:24 | XMS_ITS | Encounter Summary ---
Author Organization [facility] Address [address] [place] [address] Care Team Providers Care Acds Block 1 Operator Name Role Phone Campos Lopes MD Primary Care Provider [phone] Reason for Visit * Reason Onset Date Comments Results 06/24/2010 Encounter Details Date Type Department Care Team (Late st Contact Info) Description 06/24/2010 Telephone [facility] Pelvic Medicine and Reconstructive Surgery - Medical Office [facility] [address] [place] [address] Melina Miller MD [address] [phone] Results Social History Tobacco Use Types Packs/Day Years Used Date Smoking Tobacco: Never Assessed Comments No Sex and Gender Information Value Date Recorded Sex Assigned at Not on file Legal Sex Female 18:08 EST Gender Identity Female 02/24/2021 8:54 EDT Sexual Orientation Not on file documented as of this encounter Miscellaneous Notes * Telephone Encounter - Julissa John - 06/24/2010 1125 EDT Returned pt call. Left message on machine asking pt to email JAL and she will call pt to discuss either tomorrow or Tuesday (Per JAL). * Telephone Encounter - Cathy Mehta - 06/24/2010 0954 EDT Patient wants to discuss a positive HPV Test with Dr Miller documented in this encounter Plan of Treatment Upcoming Encounters Date Type Department Care Team (Late st Contact Info) Description 10/17/2024 10:20 EST Telemedicine [facility] Endocrinology - [facility] [address] [place] [address] Ariela Woods MD 62 [facility] [address] [place] [phone] 10/18/2024 9:15 EST Telemedicine [facility] FORMS ANALYST Pelvic Medicine and Reconstructive Surgery - Medical Office Building [facility] [address] [place] [phone] Kelsy Fierro MD [address] [place] [address] Medical Office [facility] [place], [address] [phone] documented as of this encounter Visit Diagnoses Not on filedocumented in this encounter Care Teams Acds Block 1 Operator Relationship Specialty Start Date End Date Campos Lopes MD [address] [place], [place] [phone] PCP - General 05/21/09 documented as of this encounter
--- OUTSIDE RECORDS SUMMARY | 2024-10-09 11:24 | XMS_ITS | Encounter Summary ---
Author Organization [facility] Address [address] [place] [address] Care Team Providers Care Pricing Specialist Name Role Phone Campos Lopes MD Primary Care Provider [phone] Encounter Details Date Type Department Care Team (Late st Contact Info) Description 09/03/2009 Orders Only [facility] Pelvic Medicine and Reconstructive Surgery - Medical Office [facility] [address] [place] [address] Melina Avalos MD [address] [phone] Social History Tobacco Use Types Packs/Day Years [...] 10:20 EST Telemedicine [facility] Endocrinology - [facility] [address] [place] [address] Ariela Woods MD 62 [facility] [address] [place] [address] 10/18/2024 9:15 EST Telemedicine [facility] SWITCHING OPERATOR Pelvic Medicine and Reconstructive Surgery - Medical Office Building [facility] [address] [place] [address] Kelsy Fierro MD 2 [facility] Medical Office Building, [address] [place] [phone] documented as of this encounter Procedures Procedure Name Priority Date/Time Associated Diagnosis Comments RAD US PELVIS TRANSABDOMINAL AND TRANSVAGINAL 09/03/2009 12:00 EST documented in this encounter Results * RAD US PELVIS TRANSABDOMINAL AND TRANSVAGINAL (09/03/2009 12:00 EST) Anatomical Region Laterality Modality Other 09/03/2009 12:0 0 EST 09/03/2009 14:19 EST Narrative 09/03/2009 14:19 [...] masses or ovarian pathology seen. Procedure Note 11/25/2009 Pelvic ultrasound. US RETROPERITONEAL COMPLETE Sep 03, [...] on filedocumented in this encounter Care Teams Pricing Specialist Relationship Specialty Start Date End Date Campos Lopes MD [address] [place] [address] PCP - General 05/21/09 documented as of this encounter
--- OUTSIDE RECORDS SUMMARY | 2024-10-09 11:24 | XMS_ITS | Encounter Summary ---
Author Organization [facility] Address [address] [place] [address] Care Team Providers Care Knobber Name Role Phone Unavailable Primary Care Provider Unavailabl e Encounter Details Date Type Department Care Team (Latest Contact Info) Description 09/07/2001 11:30 EST - 09/07/2001 11:59 EST Hospital Encounter [facility] [address] [place] [address] Campos Lopes MD [address] [place] [address] Discharge Disposition: Auto Discharge Social History Tobacco [...] 10:20 EST Telemedicine [facility] Endocrinology - [facility] [address] [place], [place] [phone] Ariela Woods MD 62 [facility] [address] [place] [phone] 10/18/2024 9:15 EST Telemedicine [facility] SLIDE FASTENER CHAIN ASSEMBLER Pelvic Medicine and Reconstructive Surgery - Medical Office Building [facility] [address] [place] [address] Kelsy Fierro MD 2 [facility] Medical Office [facility], [address] [place] [phone] documented as of this encounter Procedures Procedure Name Priority Date/Time Associated Diagnosis Comments CT CHEST WO CONTRAST Routine 09/08/2001 13:40 EST CHEST PA AND LATERAL Routine 09/07/2001 16:44 EST documented in this encounter Results * CT CHEST WO CONTRAST (09/08/2001 13:40 EST) Anatomical Region Laterality Modality Other 09/08/2001 13:4 0 EST Impressions 08/29/2009 0:46 EST IMPRESSION: 1. Left upper lobe subsegmental bronchiolar plugging. There is a broad differential for the focal plugging, which is likely inflammatory, but endobronchial TB or another endobronchial lesion cannot be ruled out. This should be followed to resolution. 2. 6mm indeterminate left lower lobe nodule, possibly also inflammatory. D 09/08/01 T 09/10/01 /jl Narrative 08/29/2009 0:46 EST +ppd ABNORMAL CHEST CT CHEST 09/08/01, 1100 hours HISTORY: 61 y.o. female PPD positive, abnormal chest x-ray. FINDINGS: There is focal and branching bronchiolar mucous plugging in the lateral branch of the apical posterior segment of the left upper lobe. This appearance, [...] calcified mediastinal or hilar nodes. No bony abnormality. Limited upper abdominal unenhanced sections are unremarkable. Procedure Note Amandeep Sierra DMD / Caron Gee MD - 08/29/2009 +ppd ABNORMAL CHEST CT CHEST 09/08/01, 1100 hours HISTORY: 61 y.o. female PPD positive, abnormal chest x-ray. FINDINGS: There is focal and branching bronchiolar mucous plugging in the lateral branch of the apical posterior segment of the left upper lobe. This appearance, [...] calcified mediastinal or hilar nodes. No bony abnormality. Limited upper abdominal unenhanced sections are unremarkable. IMPRESSION IMPRESSION: 1. Left upper lobe subsegmental bronchiolar plugging. There is a broad differential for the focal plugging, which is likely inflammatory, but endobronchial TB or another endobronchial lesion cannot be ruled out. This should be followed to resolution. 2. 6mm indeterminate left lower lobe nodule, possibly also inflammatory. D 09/08/01 T 09/10/01 /adryan Campos Lopes MD [facility] CT ORDERABLES Final Result * CHEST PA AND LATERAL (09/07/2001 16:44 EST) Anatomical Region Laterality Modality Other 09/07/2001 16:4 4 EST Impressions 08/29/2009 0:45 EST IMPRESSION: Persistent nodular opacity left upper lobe. Further evaluation with HRCT would be helpful. /flakitad Narrative 08/29/2009 0:45 EST R/O ABNORMAL CHEST FROM 08/29 QUESTION OPACITY HISTORY OF + PPD PA AND LATERAL CHEST: 09/07/01 1640 HOURS. HISTORY: Abnormal chest from 08/29/01, ? opacity, history of positive PPD. COMPARISON: No old films available for comparison at the time of this reading. Comparison is made to the previous report. FINDINGS: By report on 08/29/01 there was a nodular opacity in kami left upper lobe of unknown etiology. On today's examination there is a persistent nodular opacity in the left upper lobe. The remainder of the lungs are clear. The cardiac, hilar, and mediastinal silhouettes are normal. The costophrenic angles are clear. Procedure Note Britton Younger MD / Curt Price MD - 08/29/2009 R/O ABNORMAL CHEST FROM 08/29 QUESTION OPACITY HISTORY OF + PPD PA AND LATERAL CHEST: 09/07/01 1640 HOURS. HISTORY: Abnormal chest from 08/29/01, ? opacity, history of positive PPD. COMPARISON: No old films available for comparison at the time of this reading. Comparison is made to the previous report. FINDINGS: By report on 08/29/01 there was a nodular opacity in kami left upper lobe of unknown etiology. On today's examination there is a persistent nodular opacity in the left upper lobe. The remainder of the lungs are clear. The cardiac, hilar, and mediastinal silhouettes are normal. The costophrenic angles are clear. IMPRESSION IMPRESSION: Persistent nodular opacity left upper lobe. Further evaluation with HRCT would be helpful. /juliann Campos Lopes MD IM DIAGNOSTIC IMAGING ORDERAB LES Final Result documented in this encounter Visit Diagnoses Not on filedocumented in this encounter
--- OUTSIDE RECORDS SUMMARY | 2024-10-09 11:24 | XMS_ITS | Encounter Summary ---
Author Organization [facility] Address [address] [place] [address] Care Team Providers Care Trailhead Construction Worker Name Role Phone Campos Lopes MD Primary Care Provider Reason for Visit * Reason Onset Date Comments Medications Refill 03/17/2011 Encounter Details Date Type Department Care Team (Late st Contact Info) Description 03/17/2011 Refill [facility] Pelvic Medicine and Reconstructive Surgery - Medical Office [facility] [address] [place], [place] [phone] Melina Avalos MD [address] [phone] Medications Refill Social History Tobacco Use Types [...] Refills Last Filled Start Date End Date clobetasol (TEMOVATE) 0.05 % cream Apply topically 2 times daily as needed. Dispense 60 Gm tube 1 Tube 2 03/17/2011 4 documented in this encounter Plan of Treatment Upcoming Encounters Date Type Department Care Team (Late st Contact Info) Description 10/17/2024 10:20 EST Telemedicine [facility] Endocrinology - [facility] [address] [place], [place] [phone] Ariela Woods MD 62 [facility] [address] [place] [phone] 10/18/2024 9:15 EST Telemedicine [facility] MEDICAL BILLING MANAGER Pelvic Medicine and Reconstructive Surgery - Medical Office Building [facility] [address] [place] [phone] Kelsy Fierro MD [address] [place] [address], [address] [place] [phone] documented as of this encounter Visit Diagnoses Not on filedocumented in this encounter Care Teams Trailhead Construction Worker Relationship Specialty Start Date End Date Campos Lopes MD [address] [place] [address] PCP - General 05/21/09 documented as of this encounter
--- OUTSIDE RECORDS SUMMARY | 2024-10-09 11:24 | XMS_ITS | Encounter Summary ---
Author Organization [facility] Address [address] [place] [address] Care Team Providers Care Overhead Crane Truck Loader Name Role Phone Campos Lopes MD Primary Care Provider [phone] Reason for Visit * Reason Comments New Patient Visit Encounter Details Date Type Department Care Team ([facility] Contact Info) Description 04/17/2012 13:00 EDT Office Visit [facility] Surgical Oncology - [facility] [address] [place], [place] [address] Tye Navarro MD [address] [facility] [address] [place] [address] Nontoxic multinodular goiter (Primary Dx) Social History [...] - documented in this encounter Progress Notes * Tye Navarro MD - 04/17/2012 1723 EDT This office note has been dictated. documented in this encounter Consult Notes * Tye Navarro MD - 04/19/2012 0753 EDT DIVISION OF SURGICAL ONCOLOGY - [facility] CON[facility] - 04/17/2012 PROBLEM: The patient is seen for evaluation of thyroid nodularity and hyperthyroidism. SUBJECTIVE: The patient is a 72-year-old woman, who states that she has had hyperthyroidism for several years. The patient states that she initially experienced irregular heartbeat, tremors, and fatigue when this was first diagnosed. She had a low TSH level, although her T3 and T4 levels were normal. The patient was given a short course of thyroid medication, which most likely was methimazole, and was unable to tolerate it and then stopped after that. The patient states that she also was found to have a vitamin D deficiency and took vitamin D supplements, and that has helped significantly with some of her fatigue. The patient had a workup, which has included thyroid antibodies, which have all been negative for Divya's or Graves' disease. She had a nuclear scan on two separate occasions, which showed homogeneous activity in both lobes of the thyroid, most recently about a tenn-khy-z-half ago. She has had a recent ultrasound, which showed multiple small nodules on both sides. It wasthought that she might need a biopsy of one of these nodules as well. PAST MEDICAL HISTORY: She has a history of asthma. She has had no previous surgeries. She also has a history of hypertension. MEDICATIONS: Albuterol inhaler, Advair, vitamin D, Estrace, Detrol, Temovate cream, Tenormin 50 mg a day, Flovent, Maxair inhaler, and ibuprofen. ALLERGIES: CIPRO, [...] sweats. Has some fatigue. No appetite change. No eyes, ears, nose, mouth or throat problems. Denies [...] neck reveals no palpable cervical or supraclavicular lymph nodes. There are no palpable thyroid nodules. There are no carotid bruits or JVD. Lungs are clearto auscultation. Heart has a regular rate and rhythm. There is no S3, S4, or murmurs. There are no abdominal masses, no abdominal tenderness. No hepato- or splenomegaly is noted. DIAGNOSTIC DATA: Ultrasound of the neck demonstrates a multinodular thyroid gland. These nodules are all fairly benign in appearance and have a [...] patient is not on any treatment for this and is relatively asymptomatic at this point and is not willing to undergo any medical treatment for this. The likelihood of her having a malignancy in this picture I think is exceedingly low. I donot feel that a biopsy of these nodules is [...] that if her nuclear scans, which we didnot have when we met, showed a solitary nodule that was overactive, then a lobectomy on that side would be potentially curative. If there was diffuse uptake, then the only option would be a total thyroidectomy, and she was not interested in that as a potential option. Radioactive iodine is a potential option as well, but she did not seem to have any interest in that. At this point, we will notifyher of the finding of her nuclear scan, and she will likely at this point not opt for any additional treatment and simply observe how she is doing from a symptomatic standpoint in the future. Electronically Signed by Tye Navarro MD 04/21/2012 07:13 Tye Navarro MD - Tye Navarro MD - LW Job ID: SM Doc ID: [id number] Ext Doc ID: [id number] cc: Campos Lopes MD documented in this encounter Plan of Treatment Upcoming Encounters Date Type Department Care Team (Late st Contact Info) Description 10/17/2024 10:20 EST Telemedicine [facility] Endocrinology - [address] [phone] Ariela Woods MD [address] [place] [address] [place] [phone] 10/18/2024 9:15 EST Telemedicine [facility] SENIOR CLINICAL CONSULTANT Pelvic Medicine and Reconstructive Surgery - Medical Office Building [facility] [address] [place] [address] Kelsy Fierro MD [address] [place] [address] Medical Office [facility], [address] [place] [phone] documented as of this encounter Visit Diagnoses Diagnosis Nontoxic multinodular goiter- Primary documented in this encounter Care Teams Overhead Crane Truck Loader Relationship Specialty Start Date End Date Campos Lopes MD [address] [place] [address] PCP - General 05/21/09 documented as of this encounter
--- OUTSIDE RECORDS SUMMARY | 2024-10-09 11:24 | XMS_ITS | Encounter Summary ---
Author Organization [facility] Address [address] [place] [address] Care Team Providers Care Needle Felt Making Machine Operator Name Role Phone Campos Lopes MD Primary Care Provider [phone] Encounter Details Date Type Department Care Team (Late Contact Info) Description 09/07/2010 Results Only [facility] Endocrinology - [facility] [address] [place], [place] [phone] Thomas Brown MD [address], [facility] [address] [place] [address] Social History Tobacco Use Types [...] Contact Info) Description 10/17/2024 10:20 EST Telemedicine [facility] Endocrinology [facility] [address] [place], [place] [phone] Ariela Woods MD 62 [facility] [address] [place] [address] 10/18/2024 9:15 EST Telemedicine [facility] INTERNAL COMBUSTION ENGINE INSPECTOR Pelvic Medicine and Reconstructive Surgery - Medical Office Building [facility] [address] [place] [address] Kelsy Fierro MD [address] [place] [address] Medical Office [facility], [address] [phone] documented as of this encounter Visit Diagnoses Not on filedocumented in this encounter Care Teams Needle Felt Making Machine Operator Relationship Specialty Start Date End Date Campos Lopes MD [address] [place], [place] [phone] PCP - General 05/21/09 documented as of this encounter
--- OUTSIDE RECORDS SUMMARY | 2024-10-09 11:24 | XMS_ITS | Encounter Summary ---
Author Organization [facility] Address [address] [place] [address] Care Team Providers Care Carpenter Helper Name Role Phone Campos Lopes MD Primary Care Provider [phone] Reason for Visit * Reason Onset Date Comments Other 08/24/2010 Returned whomruth roque called her. She said she just saw the # on caller ID. Other 08/24/2010 Encounter Details Date Type Department Care Team (Late Contact Info) Description 08/24/2010 Telephone [facility] Endocrinology - [address] [phone] Issa Oconnell RN Other (Returned whomever called her. She said she just saw the # on caller ID.); Other Social History Tobacco Use Types Packs/Day [...] encounter Miscellaneous Notes * Telephone Encounter - Issa Oconnell - 08/25/2010 1062 EST Pt scheduled for testing at [facility] called with times. ISSA OCONNELL RN * Telephone Encounter - KourtneyBrayana Sharan - 08/25/2010 0836 EST SHe would like to know when you are going to schedule th uptake and scan at [facility]. She's not happy with me. Please let me know so I can call her back. ISSA OCONNELL, RN documented in this encounter Plan of Treatment Upcoming Encounters Date Type Department Care Team (Late st Contact Info) Description 10/17/2024 10:20 EST Telemedicine [facility] Endocrinology - [facility] [address] [place], [place] [phone] Ariela Woods MD 62 [facility] [address] [place] [phone] 10/18/2024 9:15 EST Telemedicine [facility] AIRPLANE DESIGNER Pelvic Medicine and Reconstructive Surgery - Medical Office Building [facility] [address] [place] [phone] Kelsy Fierro MD [address] [place] [address] Medical Office [facility], [address] [phone] documented as of this encounter Visit Diagnoses Not on filedocumented in this encounter Care Teams Carpenter Helper Relationship Specialty Start Date End Date Campos Lopes MD [address] [place] [address] PCP - General 05/21/09 documented as of this encounter
--- OUTSIDE RECORDS SUMMARY | 2024-10-09 11:24 | XMS_ITS | Encounter Summary ---
Author Organization [facility] Address [address] [place] [address] Care Team Providers Care Compressor Operator Adjuster Name Role Phone Campos Lopes MD Primary Care Provider [phone] Reason for Visit * Reason Comments New Patient Visit previous patient of Dr. Avalos here to follow up with you re hormones Encounter Details Date Type Department Care Team (Latest Contact Info) Description 11/15/2011 14:45 EST Office Visit [facility] Pelvic Medicine and Reconstructive Surgery - Medical Office Building [address] [address] Belgica Frazier MD [address] [place] [address] Medical Office [facility], [address] [address] Urinary frequency (Primary Dx) Discharge Disposition: Auto Discharge Social [...] documented in this encounter Progress Notes * Belgica Frazier MD - 11/15/2011 1510 EST Pt with persistent urinary frequency and urgency, urethral burning and external itching. Failed Detrol, Pelvic floor PT with [facility], has had normal cystoscopy. Now has stress incontinence. Dr. Riddlecommended cystoscopy with hydrodistention. Pt reluctant due to anesthesia risk. Pt has recently started taking Benedryl for runny nose, noted less frequency and urgency, but causes drowsiness. Takes non drowsy antihistamine during the day. Pt thinks she may be hyperthyroid, despite normal thyroidfunction tests. Advised pt that I agree with Dr. Avalos's recommendation for Cystoscopy and hydrodistention. Pt to f/u prn. Spent over 1 hour with patient discussing previous and current care. * Marion Landa LPN - 11/15/2011 1501 EST Results for orders placed in visit on 11/15/11 POCT URINE DIPSTICK Component Value Range Color YELLOW Clarity, UA Clear Glucose Neg Neg Bilirubin Neg Neg Ketones Trace (*) Neg Specific Lerona 1.025 1.001 - 1.035 Blood Trace (*) Neg pH 5.0 4.6 - 8.0 Protein Neg Neg Urobilinogen 0.2 0.2 - 1.0 (E.U./dl) Nitrite Neg Neg Leuk Esterase Neg Neg Tech ID [id number] documented in this encounter Plan of Treatment Upcoming Encounters Date Type Department Care Team (Late st Contact Info) Description 10/17/2024 10:20 EST Telemedicine [facility] Endocrinology - [address] [address] Ariela Woods MD [address] [place] [address] [place] [phone] 10/18/2024 9:15 EST Telemedicine [facility] FUN HOUSE OPERATOR Pelvic Medicine and Reconstructive Surgery - Medical Office Building [facility] [address] [place], [place] [address] Kelsy Fierro MD [address] [place] [address] Medical Office [facility], [address] [place] [address] documented as of this encounter Procedures Procedure Name Priority Date/Time Associated Diagnosis Comments BACTERIAL CULTURE, URINE Routine 11/15/2011 14:58 EST Urinary frequency POCT URINE DIPSTICK, CLINITEK Routine 11/15/2011 14:54 EST Urinary frequency documented in this encounter Results * BACTERIAL CULTURE, URINE (11/15/2011 14:58 EST) Specimen Description Urine [facility] Result Less than 10,000 CFU/ml Mixed gram positive growth [facility] Report Status 11/17/2011 Final [facility] Urine specimen (specimen) 11/15/2011 14:58 EST 11/15/2011 17:08 EST us Belgica Frazier MD MICROBIOLOGY - GENERAL O RDERABLES Final Result [facility] [address] [place] [address] * (ABNORMAL) POCT URINE DIPSTICK (11/15/2011 14:54 EST) Color YELLOW [facility] Clarity, UA Clear [facility] Glucose Neg Neg [facility] Bilirubin Neg Neg [facility] Ketones Trace(A) Neg [facility] Specific Lerona 1.025 1.001 - 1.035 [facility] Blood Trace(A) Neg [facility] pH 5.0 4.6 - 8.0 [facility] Protein Neg Neg [facility] Urobilinogen 0.2 0.2 - 1.0 E.U./dl [facility] Nitrite Neg Neg [facility] Leuk Esterase Neg Neg AILYN [facility] design agent ID [id number] [facility] Comment:Test performed at [facility] Urine specimen (specimen) 11/15/2011 14:54 EST 11/15/2011 15:03 EST us Belgica Frazier MD POINT OF CARE TEST ORDER JENISE Final Result [facility] [address] [place] [address] documented in this encounter Visit Diagnoses Diagnosis Urinary frequency- Primary documented in this encounter Care Teams Compressor Operator Adjuster Relationship Specialty Start Date End Date Campos Lopes MD [address] [place] [address] PCP - General 05/21/09 documented as of this encounter
--- OUTSIDE RECORDS SUMMARY | 2024-10-09 11:24 | XMS_ITS | Encounter Summary ---
Author Organization [facility] Address [address] [place] [address] Care Team Providers Care Plunger Shovel Operator Name Role Phone Campos Lopes MD Primary Care Provider [phone] Reason for Visit * Reason Onset Date Comments Labs Only 03/13/2010 Needs claraifica tion on order sent yesterday Encounter Details Date Type Department Care Team (Late st Contact Info) Description 03/13/2010 Telephone [facility] Pelvic Medicine and Reconstructive Surgery - Medical Office [facility] [address] [place] [address] Melina Avalos MD [address] [phone] Labs Only (Needs claraification on order sent yesterday) Social History Tobacco Use Types Packs/Day Years Used Date Smoking Tobacco: Never Assessed Comments No Sex and Gender Information Value Date Recorded Sex Assigned at Not on file Legal Sex Female 18:08 EST Gender Identity Female 02/24/2021 8:54 EDT Sexual Orientation Not on file documented as of this encounter Miscellaneous Notes * Telephone Encounter - Claudia Haq RN - 03/18/2010 1332 EDT All lab tests/cultures have returned negative. * Telephone Encounter - Kirti Neil RN - 03/13/2010 [...] Contact Info) Description 10/17/2024 10:20 EST Telemedicine [facility] Endocrinology - [facility] [address] [place], [place] [phone] Ariela Woods MD 62 [facility] [address] [place] [phone] 10/18/2024 9:15 EST Telemedicine [facility] INSURANCE ANALYST Pelvic Medicine and Reconstructive Surgery - Medical Office Building [facility] [address] [place] [address] [phone] Kelsy Fierro MD 2 [facility] Medical Office [facility], [address] [phone] documented as of this encounter Visit Diagnoses Not on filedocumented in this encounter Care Teams Plunger Shovel Operator Relationship Specialty Start Date End Date Campos Lopes MD [address] [place], [place] [phone] PCP - General 05/21/09 documented as of this encounter
--- OUTSIDE RECORDS SUMMARY | 2024-10-09 11:24 | XMS_ITS | Encounter Summary ---
Author Organization [facility] Address [address] [place] [address] Care Team Providers Care Instrument Technician Name Role Phone Campos Lopes MD Primary Care Provider [phone] Encounter Details Date Type Department Care Team (Late Contact Info) Description 09/13/[address] [facility] [address] [place] [address] Wero Rowell MD [address] [place], [place] [address] Social History Tobacco Use Types Packs/Day Years [...] Info) Description 10/17/2024 10:[address] [facility] Endocrinology - [facility] [address] [place], [place] [phone] Ariela Woods MD 62 [facility] [address] [place] [address] 10/18/2024 9:[address] [facility] RASPER MACHINE OPERATOR Pelvic Medicine and Reconstructive Surgery - Medical Office [facility] [address] [place] [address] Kelsy Fierro MD 2 [facility] Eloise Santos, Medical Office Building, [address] [place] [address] documented as of this encounter Procedures Procedure Name Priority Date/Time Associated Diagnosis Comments CYTOPATHOLOGY Routine 09/13/2002 0:00 EST documented in this encounter Results * CYTOPATHOLOGY (09/13/2002 0:00 EST) Pathology Report: CYTOPATHOLOGY REPORT Reports generated via electronic interface contain original data; however they are lacking the format of the original report. Caution should be taken when reading/interpreti ng unformatted reports. Name: ? MAUREEN BAEZ ? Accession #: ? [id number] : ? 1940 (Age: 62) ??F ?Collect Date: ? 09/13/2002 Location: ? [facility] ? Receive Date: ? 09/14/2002 Provider: ?WERO ROWELL MD Copy to: ? Specimen/Source: ?ThinPrep Pap Test, Cervix/Endocervix Last Menstrual Period: ? 8 years Hormonal/Contracep tive Status: ? Yes ? SPECIMEN ADEQUACY ? Satisfactory for Evaluation - transformation zone component present GENERAL CATEGORIZATION ? Negative for Intraepithelial Lesion or Malignancy ? Document reviewed and electronically signed by: ? JAVIER Dillon(ASCP) ? Report Date: ??09/17/2002 11:04 End of Report [facility] 09/13/2002 09/14/2002 us Wero Rowell MD PATHOLOGY ORDERABLES Final Resul t [facility] [address] [place] [address] documented in this encounter Visit Diagnoses Not on filedocumented in this encounter Care Teams Instrument Technician Relationship Specialty Start Date End Date Campos Lopes MD [address] [place] [address] PCP - General 05/21/09 documented as of this encounter
--- OUTSIDE RECORDS SUMMARY | 2024-10-09 11:24 | XMS_ITS | Encounter Summary ---
Author Organization [facility] Address [address] [place] [address] Care Team Providers Care Spray Machine Operator Name Role Phone Campos Lopes MD Primary Care Provider [phone] Reason for Visit * Reason Onset Date Comments Other 03/06/2010 Pt wanting to sp eak to Dr. Avalos Encounter Details Date Type Department Care Team ([facility] st Contact Info) Description 03/06/2010 Telephone [facility] Pelvic Medicine and Reconstructive Surgery - Medical Office [facility] [address] [place] [address] Makenzie Neil, RN Other (Pt wanting to speak to Dr. Avalos) Social History Tobacco Use Types Packs/Day Years Used Date Smoking Tobacco: Never Assessed Comments Unknown Sex and Gender Information Value Date Recorded Sex Assigned at Not on file Legal Sex Female 18:08 EST Gender Identity Female 02/24/2021 8:54 EDT Sexual Orientation Not on file documented as of this encounter Miscellaneous Notes * Telephone Encounter - Kirti Neil, JAZIEL - 03/06/2010 1312 EDT Pt called to speak to Dr. Avalos. She said that she had emailed Dr. Avalos and had not heard backfrom her. I asked her if there was something that we could help her with and she stated no that sheneeded to talk to Dr. Avalos. I informed her that Dr Avalos was no longer in the clinic but I would try to reach her and request that she call. I sent an e-mail to Dr. Avalos informing her of this pt's request. documented in this encounter Plan of Treatment Upcoming Encounters Date Type Department Care Team (Late st Contact Info) Description 10/17/2024 10:20 EST Telemedicine [facility] Endocrinology - [facility] [address] [place] [address] Ariela Woods MD 62 [facility] [address] [place] [phone] 10/18/2024 9:15 EST Telemedicine [facility] INSURANCE CLAIMS EXAMINER Pelvic Medicine and Reconstructive Surgery - Medical Office Building [facility] [address] [place] [address] Kelsy Fierro MD 2 [facility] Medical Office [facility], [address] [phone] documented as of this encounter Visit Diagnoses Not on filedocumented in this encounter Care Teams Spray Machine Operator Relationship Specialty Start Date End Date Campos Lopes MD [address] [place] [address] PCP - General 05/21/09 documented as of this encounter
--- OUTSIDE RECORDS SUMMARY | 2024-10-09 11:24 | XMS_ITS | Encounter Summary ---
Author Organization [facility] Address [address] [place] [address] Care Team Providers Care Chaplain Resident Name Role Phone Campos Lopes MD Primary Care Provider [phone] Encounter Details Date Type Department Care Team (Late Contact Info) Description 08/17/2000 Results Only [facility] - [facility] conversion [address] [place] [address] Wero Rowell MD [address] [place], [place] [address] Social History Tobacco Use Types Packs/Day Years [...] Contact Info) Description 10/17/2024 10:20 EST Telemedicine [facility] Endocrinology - [facility] [address] [place] [address] Ariela Woods MD 62 [facility] [address] [place] [address] 10/18/2024 9:15 EST Telemedicine [facility] SIZING MACHINE OPERATOR Pelvic Medicine and Reconstructive Surgery - Medical Office [facility] [address] [place] [address] Kelsy Fierro MD 2 [facility] Eloise Santos, Medical Office Building, [address] [place] [address] documented as of this encounter Procedures Procedure Name Priority Date/Time Associated Diagnosis Comments SURGICAL PATHOLOGY Routine 08/17/2000 0:00 EST documented in this encounter Results * SURGICAL PATHOLOGY (08/17/2000 0:00 EST) Pathology Report: SURGICAL PATHOLOGY REPORT Reports generated via electronic interface contain original data; however they are lacking the format of the original report. Caution should be taken when reading/interpreti ng unformatted reports. Name: ? MARUEEN BAEZ ? Accession #: ? [id number] ? : ? 1940 (Age: 60) ??F ? Collect Date: ? 08/17/2000 ? Location: ? [facility] ? Receive Date: ? 08/17/2000 ? Provider: WERO ROWELL MD Copy to: NAHEED COSBY MD ? Final Pathologic Diagnosis: ? Vulvar, biopsy: - ??Mild spongiotic dermatitis. ??See comment. Comment: ? There is mild spongiosis of the epidermis with mild chronic inflammatory infiltrates and a few necrotic keratinocytes. ??The findings are non-specific and may represent an irritation related dermatitis. ??Dr. Kayla Box also reviewed this case and concurs with the diagnosis. ??Deeper levels of the block are examined. ??(Dr. Felton)/[facility] Document reviewed and electronically signed by: YOLANDA FELTON MD Report ??Date: 08/25/2000 14:27 By the signature above, the attending physician certifies that he/she has personally conducted a gross and/or microscopic examination of the described specimens and rendered or confirmed the above diagnosis. Specimen(s) Received: ? Vulvar bx Clinical History: ? Chronic vulvar pruritus/pain Gross Description: ? Received in formalin labelled Elzohairy and vulvar bx is a shave biopsy of skin measuring 0.4 x 0.2 x 0.1 cm. ??Submitted intact in one cassette. ??(Dr. Pal-)/chasidy End of Report [facility] 08/17/2000 08/17/2000 14: 52 EST us Wero Rowell MD PATHOLOGY ORDERABLES Final Resul t [facility] [address] [place] [address] documented in this encounter Visit Diagnoses Not on filedocumented in this encounter Care Teams Chaplain Resident Relationship Specialty Start Date End Date Campos Lopes MD [address] [place] [address] PCP - General 05/21/09 documented as of this encounter
--- OUTSIDE RECORDS SUMMARY | 2024-10-09 11:24 | XMS_ITS | Encounter Summary ---
Author Organization [facility] Address [address] [place] [address] Care Team Providers Care Net Fisher Name Role Phone Campos Lopes MD Primary Care Provider [phone] Encounter Details Date Type Department Care Team (Late st Contact Info) Description 06/07/2010 Results Only [facility] Laboratory Services - [facility] ([facility] [address] [place] [address] Pat Mata MD [address] [place] [address] [place] [address] Social History Tobacco Use Types Packs/Day Years [...] Telemedicine [facility] Endocrinology - [facility] [address] [place] [address] Ariela Woods MD 62 [facility] [address] [place] [address] 10/18/2024 9:15 EST Telemedicine [facility] ACCREDITATION MANAGER Pelvic Medicine and Reconstructive Surgery - Medical Office Building [address] [address] Kelsy Fierro MD 2 [facility] Medical Office [facility], [address] [phone] documented as of this encounter Procedures Procedure Name Priority Date/Time Associated Diagnosis Comments HPV DETECTION, HIGH RISK TYPES Routine 06/07/2010 10:11 EDT CYTOPATHOLOGY Routine 06/07/2010 0:00 EDT documented in this encounter Results * HUMAN PAPILLOMA VIRUS DNA TEST (06/07/2010 10:11 EDT) Specimen Description Cervix, ThinPrep vial [facility] Result Positive for one or more of HPV types 16,18,31,33,35 ,39,45,51,52,5 6,58,59, or 68. These high/intermedi ate risk HPV types are associated with dysplasia and some cervical cancers. [facility] Report Status Final 06/17/2010 [facility] 06/07/2010 10:1 1 EDT 06/16/2010 10:11 EDT us Pat Mata MD MICROBIOLOGY - GENERAL ORDERABL ES Final Result [facility] [address] [place] [address] * CYTOPATHOLOGY (06/07/2010 0:00 EDT) Pathology Report: CYTOPATHOLOGY REPORT ? Reports generated via electronic interface contain original data; ? however they are lacking the format of the original report. ? Caution should be taken when reading/interpreti ng unformatted reports. ? Name: ? MAUREEN BAEZ ? Accession #: ? [id number] ? : ? 1940 (Age: 70) ??F ?Collect Date: ? 06/07/2010 ? Location: ? [facility] ? Receive Date: ? 06/09/2010 ? Provider: ?PAT MATA MD ? Copy to: ? Specimen/Source: ?Pap Test, Cervix/Endocervix, ThinPrep Imaging System ? with manual evaluation ? Last Menstrual Period: ? 10 yrs + - 1 ? Other: ? HPVDX - HPV testing requested regardless of diagnosis on current ThinPrep Pap ?? test. ? SPECIMEN ADEQUACY ? Satisfactory for Evaluation ? - transformation zone component present ? GENERAL CATEGORIZATION ? Negative for Intraepithelial Lesion or Malignancy ? INTERPRETATION ? Reactive cellular changes associated with inflammation present (includes ?? repair). ? Document reviewed and electronically signed by: ? Juaquin Robbie Varinder, MD ? Report Date: ??06/12/2010 14:35 ? End of Report ? [facility] 06/07/2010 06/09/2010 us Pat Mata MD PATHOLOGY ORDERABLES Final Resu lt [facility] [address] [place] [address] documented in this encounter Visit Diagnoses Not on filedocumented in this encounter Care Teams Net Fisher Relationship Specialty Start Date End Date Campos Lopes MD [address] [place] [address] PCP - General 05/21/09 documented as of this encounter
--- OUTSIDE RECORDS SUMMARY | 2024-10-09 11:24 | XMS_ITS | Encounter Summary ---
Author Organization [facility] Address [address] [place] [address] Care Team Providers Care Household Refrigeration Mechanic Name Role Phone Campos Lopes MD Primary Care Provider [phone] Encounter Details Date Type Department Care Team (Late Contact Info) Description 04/14/2012 Results Only [facility] Surgical Oncology - [facility] [address] [place], [place] [phone] Tye Navarro MD 111 [facility], [address] [place] [address] Social History Tobacco Use Types [...] Info) Description 10/17/2024 10:20 EST Telemedicine [facility] End[facility]ology - [facility] [address] [place] [address] Ariela Woods MD 62 [facility] [address] [place] [address] 10/18/2024 9:15 EST Telemedicine [facility] LEAD SOFTWARE QA ENGINEER Pelvic Medicine and Reconstructive Surgery - Medical Office Building [facility] [address] [place], [place] [address] Kelsy Fierro MD 2 [facility] Medical Office [facility], [address] [place] [phone] documented as of this encounter Procedures Procedure Name Priority Date/Time Associated Diagnosis Comments [facility] NECK/THYROID - [facility] ONLY 04/17/2012 13:38 EDT documented in this encounter Results * [facility] NECK/THYROID - BRE[facility] ONLY (04/17/2012 13:38 EDT) Anatomical Region Laterality Modality Other 04/17/2012 13:3 8 EDT Narrative 04/17/2012 13:38 EDT See Notes Tab. Procedure Note 04/17/2012 See Notes Tab. Tye Navarro MD IMG US ORDERABLES Final Result documented in this encounter Visit Diagnoses Not on filedocumented in this encounter Care Teams Household Refrigeration Mechanic Relationship Specialty Start Date End Date Campos Lopes MD [address] [place] [address] PCP - General 05/21/09 documented as of this encounter
--- OUTSIDE RECORDS SUMMARY | 2024-10-09 11:24 | XMS_ITS | Encounter Summary ---
Author Organization [facility] Address [address] [place] [address] Care Team Providers Care Meat Hanger Name Role Phone Unavailable Primary Care Provider Unavailabl e Encounter Details Date Type Department Care Team (Latest Contact Info) Description 09/12/2001 12:31 EST Hospital Encounter [facility] - [facility] conversion [address], [place] [address] Campos Lopes MD [address] [place] [address] Discharge Disposition: Auto Discharge Social History Tobacco [facility] - [facility] [address] [place] [address] Ariela Woods MD 62 [facility] [address] [place] [address] 10/18/2024 9:15 EST Telemedicine [facility] EXPLOITATION ANALYST Pelvic Medicine and Reconstructive Surgery - Medical Office Building [address] [address] Ramon Fierro MD 2 [facility] Office Building, [address] [address] documented as of this encounter Procedures Procedure Name Priority Date/Time Associated Diagnosis Comments SURGICAL PATHOLOGY Routine 07/17/2009 0: 00 EDT BACTERIAL CULTURE, URINE Routine 06/09/2009 11:00 EDT UREAPLASMA PCR Routine 06/09/2009 10:34 EDT MYCOPLASMA HOMINIS PCR-TEMP UNAVALABLE Routine 06/09/2009 10:34 EDT CYTOPATHOLOGY Routine 06/09/2009 0:00 EDT documented in this encounter Results * SURGICAL PATHOLOGY (07/17/2009 0:00 EDT) Pathology Report: SURGICAL PATHOLOGY REPORT ? Reports generated via electronic interface contain original data; ? however they are lacking the format of the original report. ? Caution should be taken when reading/interpreti ng unformatted reports. ? Name: ? TONA BAEZ ? Accession #: ? [id number] ? : ? 1940 (Age: 69) ??F ? Collect Date: ? 07/17/2009 ? Location: ? [facility] ? Receive Date: ? 07/18/2009 ? Provider: RAMON S MIL MD ? Copy to: ? Final Pathologic Diagnosis: ? Skin/mucosa, inner right labia minora, punch biopsy: ? - Epithelial hyperplasia and mild chronic inflammation. ??See microscopic and ? comment. ? Comment: ? Multiple sections of the biopsy were reviewed. 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 ??There is mild chronic inflammation that has a relatively non-specific pattern. ??There is no interface alteration to [...] some areas. ??The ?? epithelium shows mild reactive nuclear changes, but generally matures in an ? 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 ??Areas have a slightly thickened granular layer. ??There is no ?? appreciable spongiosis and the interface is intact. ??In some areas, the ? underlying tissues have a patchy, moderately dense lymphocytic infiltrate. ? Additional, deeper sections show similar features. ??No fungal organisms are ? identified on sections prepared with PAS-amylase stain. ??(Dr. Box)/ljn ? Document reviewed and electronically signed by: ? Kayla Box, ? Report ??Date: 07/22/2009 15:00 ? By the signature above, the attending [...] Gross Description: ? Received in formalin labelled Tona Baez is a punch biopsy of stuart skin measuring 0.3 cm in diameter, 0.1 cm in thickness. ??The specimen is ? submitted entirely in one cassette. (Mateusz Cooley)/mpl ? End of Report ? [facility] 07/17/2009 07/18/2009 10: 05 EDT us Ramon Fierro MD PATHOLOGY ORDERABLES Final Result Performing Organization Address [facility] de Phone Number [facility] [address] [place] [address] * BACTERIAL CULTURE, URINE (06/09/2009 11:00 EDT) Specimen Description Urine [facility] Result No growth [facility] Report Status Final 06/10/2009 [facility] 06/09/2009 11:0 0 EDT 06/09/2009 16:56 EDT us Mayelin Alvarez MD MICROBIOLOGY - GENERAL ORDERA BLES Final Result Performing Organization Address [facility] de Phone Number [facility] [address] [place] [address] * CULTURE, UREAPLASMA UREALYTICUM (06/09/2009 10:34 EDT) Specimen Description Vagina [facility] Result No growth after 5 days ? [facility] Report Status FINAL [id number] ? Performed or Referred by: [facility] Dpt of Lab Med and Path, [address] [place] [address], Lab Dir: Mike Aguirre III, ? MD ? [facility] Specimen of unknown material (specimen) 06/09/2009 10:34 EDT 06/09/2009 19:12 EDT us Mayelin Alvarez MD MICROBIOLOGY - GENERAL [facility] Final Result [facility] [address] [place] [address] * CULTURE, MYCOPLASMA HOMINIS (06/09/2009 10:34 EDT) Specimen Description Vagina [facility] Result No growth after 5 days ? [facility] Report Status FINAL [id number] ? Performed or Referred by: [facility] Dpt of Lab Med and Path, [address] , [place] [address], Lab Dir: Mike Aguirre III, ? MD ? [facility] Specimen of unknown material (specimen) 06/09/2009 10:34 EDT 06/09/2009 19:12 EDT us Mayelin Alvarez MD MICROBIOLOGY - GENERAL [facility] BLE Final Result [facility] [address] [place] [address] * CYTOPATHOLOGY (06/09/2009 0:00 EDT) Pathology Report: CYTOPATHOLOGY REPORT ? Reports generated via electronic interface contain original data; ? however they are lacking the format of the original report. ? Caution should be taken when reading/interpreti ng unformatted reports. ? Name: ? TONA BAEZ ? Accession #: ? [id number] ? : ? 1940 (Age: 69) ??F ?Collect Date: ? 06/09/2009 ? Location: ? [facility] ? Receive Date: ? 06/10/2009 ? Provider: ? MAYELIN ALVAREZ MD ? Copy to: ? CYTOLOGIC DIAGNOSIS: ? Urine, catheterized, cytologic evaluation: ? 1. ?No malignant cells identified. ? 2. ? Reactive urothelial cells with abundant lubricant present in the ? background. ? Document reviewed and electronically signed by: ? Siri Patel, MD ? Report Date: ??06/11/2009 17:25 ? By the signature above, the attending physician certifies that he/she has ? personally conducted a gross and/or microscopic examination of the described ? specimens and rendered or confirmed the above diagnosis. ? Specimen Type: ? Urine, Catheterized ? Clinical History: ? Clinical diagnosis code: ??599.70 ? Gross Description: ? 10cc' s of cloudy yellow fluid were received and processed by selective ? cellular enhancement technique. ? End of Report ? [facility] 06/09/2009 06/10/2009 9:1 3 EDT us Mayelin Alvarez MD PATHOLOGY ORDERABLES Final Re sult [facility] [address] [place] [address] documented in this encounter Visit Diagnoses Not on filedocumented in this encounter
--- OUTSIDE RECORDS SUMMARY | 2024-10-09 11:24 | XMS_ITS | Encounter Summary ---
Author Organization [facility] Address [address] [place] [address] Care Team Providers Care Manager System Name Role Phone Unavailable Primary Care Provider Unavailabl e Encounter Details Date Type Department Care Team (Late st Contact Info) Description 04/08/2008 Before PRISM Converted Visit (Maple) [facility] conversion [address] [place] [address] Krishna iL MD [address] [place] [address] Social History Tobacco Use Types Packs/Day Years [...] Contact Info) Description 10/17/2024 10:20 EST Telemedicine [facility] Endocrinology - [facility] [address] [place] [address] Ariela Woods MD [address] [facility] [address] [place] [address] 10/18/2024 9:15 EST Telemedicine [facility] PULPWOOD BUYER Pelvic Medicine and Reconstructive Surgery - Medical Office [facility] [address] [place] [address] Kelsy Fierro MD 2 [facility] Eloise Santos, Medical Office Building, [address] [place] [phone] documented as of this encounter Procedures Procedure Name Priority Date/Time Associated Diagnosis Comments CYTOPATHOLOGY Routine 04/08/2008 0:00 EDT documented in this encounter Results * CYTOPATHOLOGY (04/08/2008 0:00 EDT) Pathologist [facility] Pathology Report: CYTOPATHOLOGY REPORT ? Reports generated via electronic interface contain original data; ? however they are lacking the format of the original report. ? Caution should be taken when reading/interpreti ng unformatted reports. ? Name: ? MAUREEN BAEZ ? Accession #: ? [id number] ? : ? 1940 (Age: 68) ??F ?Collect Date: ? 04/08/2008 ? Location: ? [facility] ? Receive Date: ? 04/10/2008 ? Provider: ?KRISHNA T BAKELAAR MD ? Copy to: ?ROE JARROD MD ? Specimen/Source: ?ThinPrep Pap Test, Cervix/Endocervix, processed on Cytyc ThinPrep Imaging System, with manual evaluation ? Last Menstrual Period: ? 8 years ago ? SPECIMEN ADEQUACY ? Satisfactory for Evaluation ? - transformation zone component absent ? - obscuring contamination, possibly lubricant ? - scant squamous epithelial component ? GENERAL CATEGORIZATION ? Negative for Intraepithelial Lesion or Malignancy ? Document reviewed and electronically signed by: ? Yajaira Lawson, SCT(ASCP) ? Report Date: ??04/17/2008 13:44 ? End of Report ? [facility] 04/08/2008 04/10/2008 us Krishna Li MD PATHOLOGY ORDERABLES Final Re sult [facility] [address] [place] [address] documented in this encounter Visit Diagnoses Not on filedocumented in this encounter
--- OUTSIDE RECORDS SUMMARY | 2024-10-09 11:24 | XMS_ITS | Encounter Summary ---
Author Organization [facility] Address [address] [place] [address] Care Team Providers Care Heading Pinner Name Role Phone Campos Lopes MD Primary Care Provider [phone] Reason for Visit * Reason Onset Date Comments Cystitis 03/04/2010 started about a week ago Encounter Details Date Type Department Care Team (Late st Contact Info) Description 03/04/2010 Telephone [facility] Pelvic Medicine and Reconstructive Surgery - Medical Office [facility] [address] [place], [place] [phone] Melina Avalos MD [address] [phone] Cystitis (started about a week ago) Social History Tobacco Use Types Packs/Day Years Used Date Smoking Tobacco: Never Assessed Comments Unknown Sex and Gender Information Value Date Recorded Sex Assigned at Not on file Legal Sex Female 18:08 EST Gender Identity Female 02/24/2021 8:54 EDT Sexual Orientation Not on file documented as of this encounter Miscellaneous Notes * Telephone Encounter - Cathy Mehta - 03/06/2010 0929 EDT Maureen Thomas called this morning waiting to hear from you * Telephone Encounter - Melina Avalos - 03/04/2010 1536 EDT Can you ask her to email me? Thanks. documented in this encounter Plan of Treatment Upcoming Encounters Date Type Department Care Team (Late st Contact Info) Description 10/17/2024 10:20 EST Telemedicine [facility] Endocrinology - [facility] [address] [place], [place] [phone] Ariela Woods MD 62 [facility] [address] [place] [phone] 10/18/2024 9:15 EST Telemedicine [facility] MILK HOUSE WORKER Pelvic Medicine and Reconstructive Surgery - Medical Office Building [facility] [address] [place] [phone] Kelsy Fierro MD 2 [facility] Medical Office [facility], [address] [place] [phone] documented as of this encounter Visit Diagnoses Not on filedocumented in this encounter Care Teams Heading Pinner Relationship Specialty Start Date End Date Camops Lopes MD [address] [place], [place] [phone] PCP - General 05/21/09 documented as of this encounter
--- OUTSIDE RECORDS SUMMARY | 2024-10-09 11:24 | XMS_ITS | Encounter Summary ---
Author Organization [facility] Address [address] [place] [address] Care Team Providers Care Fundraising Manager Name Role Phone Campos Lopes MD Primary Care Provider [phone] Reason for Visit * Reason Comments Thyroid Problem NPV Encounter Details Date Type Department Care Team (Latest Contact Info) Description 03/14/2012 10:30 EDT Office Visit [facility] Endocrinology - [facility] [address] [place] [address] Brent Navarrete MD 62 [facility] [address] [place] [address] Nontoxic multinodular goiter (Primary Dx) Social History [...] documented in this encounter Progress Notes * Brent Navarrete MD - 03/14/2012 1052 EDT Endocrinology Initial Thyroid Evaluation 03/14/2012 SUBJECTIVE: Tona Baez is a 72 y.o. female who [...] recurrence. The systemic review was generally positive. 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 Tona has a past medical history of Thyroid disease. She has no past surgical history on file. The patient's family history is not on file. The patient reports that she quit smoking about 16 years ago. She has never used smokeless tobacco.She reports that she drinks alcohol. She reports that she does not use illicit drugs. Tona has a current medication list which includes [...] no thyroidectomy scar, abnormal thyroid: enlarged I feel small nodule in front of trachea ansd an [...] intact no tremors LAB REVIEW: Results for TONA BAEZ ( ) as of 03/14/2012 10:55 [...] to be biopsied in our FNA clinic. Aubrey agreed to this. In addition, I have repeated her thyroid function tests, including thyroid antibodies (noting that a TPO was negative in 2009). Both lobes are rather enlarged, even though the larger nodule on the right, the left one is large as well and perhaps is an underlying autoimmune process going on. (As theT4 and T3 are on the lower side of normal, I do not believe she has either toxic nodules or a toxicmultinodular goiter; therefore, we would go after these nodules with biopsy as a first step.) It also should be noted that the patient had a disagreeable encounter in our offices previously during which she was very upset, wrote numerous letters and emails. I tried to avoid discussion of these issues today. I have tried to convey to her the difference between hyperthyroidism and subclinical hyperthyroidism and my own opinion is that I do not treat subclinical hyperthyroidism with normal T3 and T4, is inthe case here. In addition to that, the patient was given Tapazole several months ago and on 5 mg of Tapazole had pain in her neck and I could not tolerate the drug. It was discontinued after one or two doses. I cannot explain this at all and I have told her that. I plan to see her assuming the biopsies are negative in a year to repeat her ultrasound. Thyroid [...] nodule(s) such as irregular borders, microcalcifications, or increasedinternal blood flow, I recommend US guided fine-needle aspiration biopsy based on the size of the nodule. I told the patient that the 4 cytopathologic results from FNA biopsy include 1) benign; 2) malignant; 3) inadequate sample; and 4) indeterminate. We avoid the 3rd result, hopefully, by having acytopathologist on site for the biopsy. The patient has been given pre- biopsy instructions and willbe scheduled for biopsy in our clinic. PLAN: [...] Contact Info) Description 10/17/2024 10:20 EST Telemedicine [facility] Endocrinology - [address] [phone] Ariela Woods MD 62 [facility] [address] [place] [phone] 10/18/2024 9:15 EST Telemedicine [facility] PRETZEL COOKER Pelvic Medicine and Reconstructive Surgery - Medical Office [address] [phone] Kelsy Fierro MD 2 [facility] Office [facility], [address] [phone] documented as of this encounter Results * T3 FREE (03/14/2012 11:29 EDT) T3, Free 4.0 2.3 - 4.2 pg/mL [facility] Blood specimen (specimen) 03/14/2012 11:29 EDT 03/14/2012 15:35 EDT us Brent Navarrete MD CHEMISTRY & BLOOD GAS ORDE RABLES Final Result Performing Organization Address [facility]/ZIP Co de Phone Number [facility] [address] [place] [address] * THYROPEROXIDASE ANTIBODY (03/14/2012 11:29 EDT) Thyroperoxidase Ab 37 <61 U/mL [facility] Blood specimen (specimen) 03/14/2012 11:29 EDT 03/14/2012 15:35 EDT us Brent Navarrete MD CHEMISTRY & BLOOD GAS ORDE RABLES Final Result Performing Organization Address [facility] Co de Phone Number [facility] [address] [place] [address] * ANTI THYROGLOBULIN (03/14/2012 11:29 EDT) Thyroglobulin Ab <15 <61 U/mL [facility] Blood specimen (specimen) 03/14/2012 11:29 EDT 03/14/2012 15:35 EDT us Brent Navarrete MD CHEMISTRY & BLOOD GAS ORDE RABLES Final Result Performing Organization Address [facility] Co de Phone Number [facility] [address] [place] [address] * T4 FREE (03/14/2012 11:29 EDT) Free T4 1.1 0.8 - 1.8 ng/dL [facility] Blood specimen (specimen) 03/14/2012 11:29 EDT 03/14/2012 15:35 EDT us Brent Navarrete MD CHEMISTRY & BLOOD GAS ORDE RABLES Final Result Performing Organization Address [facility] Co de Phone Number [facility] [address] [place] [address] * (ABNORMAL) TSH (03/14/2012 11:29 EDT) TSH <0.02(L) 0.35 - 5.00 uIU/ml [facility] Blood specimen (specimen) 03/14/2012 11:29 EDT 03/14/2012 15:35 EDT us Brent Navarrete MD CHEMISTRY & BLOOD GAS LINDSEY ARREGUIN Final Result [facility] [address] [place] [address] documented in this encounter Visit Diagnoses Diagnosis Nontoxic multinodular goiter- Primary documented in this encounter Discontinued Medications Medication Sig Discontinue Reason Start Date End Da te fluconazole (DIFLUCAN) 150 mg tablet Take 1 Tab by mouth once for 3 doses. Therapy completed 04/29/2010 03/14/2012 metronidazole (FLAGYL) 500 mg tablet Take by mouth. As directed Therapy completed 03/14/2012 documented as of this encounter Historical Medications * This list may reflect changes made after this encounter. ergocalciferol, vitamin D2, 2,000 unit tablet Take by mouth daily. 1000 IU fluticasone-salm eterol (ADVAIR HFA) 230-21 mcg/actuation inhaler Inhale 2 Puffs as directed 2 times daily . 01/26/2023 albuterol (PROVENTIL HFA, VENTOLIN HFA) 90 mcg/actuation inhaler Inhale 2 Puffs as directed daily. 04/15/2014 added in this encounter Care Teams Fundraising Manager Relationship Specialty Start Date End Date Campos Lopes MD [address] [place] [address] PCP - General 05/21/09 documented as of this encounter
--- OUTSIDE RECORDS SUMMARY | 2024-10-09 11:24 | XMS_ITS | Encounter Summary ---
Author Organization [facility] Address [address] [place] [address] Care Team Providers Care Rolled Seat Trimmer Name Role Phone Campos Lopes MD Primary Care Provider [phone] Reason for Visit * Reason Onset Date Comments Other 11/26/2010 Encounter Details Date Type Department Care Team (Late st Contact Info) Description 11/26/2010 Telephone [facility] Pelvic Medicine and Reconstructive Surgery - Medical Office [facility] [address] [place] [address] Melina Avalos MD [address] [phone] Other Social History Tobacco Use Types Packs/Day [...] Refills Last Filled Start Date End Date conjugated estrogens 0.625mg/G (PREMARIN) vaginal cream Place 0.63 g vaginally twice a week. At bed time for 7 days, then at bedtime twice a week 1 Tube 11 11/26/2010 1 documented in this encounter Miscellaneous Notes * Telephone Encounter - Claudia Haq RN - 11/26/[address] Avalos- pt. may switch. Message to Dr. Avalos; Selam' insurance plan does not cover Estrace vaginal cream however Premarin cream is allowed. Would you like me to change Maureen over to Premarin? Claudia Haq R.N.,C.U.R.N. Nurse Clinician [facility] phone: fax: e-mail: [email or web address] * Telephone Encounter - Claudia Haq RN - 11/26/2010 1143 EST Suni TREVIZO [phone] pt. ID [id number] * Telephone Encounter - Lisa Fonseca - 11/26/2010 1125 EST Patient will need an auth for estrace. documented in this encounter Plan of Treatment Upcoming Encounters Date Type Department Care Team (Late st Contact Info) Description 10/17/2024 10:20 EST Telemedicine [facility] Endocrinology - [address] [address] Ariela Woods MD [address] [phone] 10/18/2024 9:15 EST Telemedicine [facility] WOOD TILE INSTALLER Pelvic Medicine and Reconstructive Surgery - Medical Office Building [address] [address] Kelsy Fierro MD [address] [place] [address] Medical Office [facility], [address] [place] [address] documented as of this encounter Visit Diagnoses Not on filedocumented in this encounter Discontinued Medications Medication Sig Discontinue Reason Start Date End Da te estradiol (ESTRACE) 0.01 % (0.1 mg/g) vaginal cream Place vaginally. Per vagina 2 x weekly Insurance does not cover 11/16/2010 11/26/2010 documented as of this encounter Care Teams Rolled Seat Trimmer Relationship Specialty Start Date End Date Campos Lopes MD [address] [place] [address] PCP - General 05/21/09 documented as of this encounter
--- OUTSIDE RECORDS SUMMARY | 2024-10-09 11:24 | XMS_ITS | Encounter Summary ---
Author Organization [facility] Address [address] [place] [address] Care Team Providers Care Residential Framing Carpenter Name Role Phone Campos Lopes MD Primary Care Provider [phone] Encounter Details Date Type Department Care Team (Late Contact Info) Description 04/29/2010 Orders Only [facility] Pelvic Medicine and Reconstructive Surgery - Medical Office [facility] [address] [place] [address] Makenzie Neil, JAZIEL Dyspareunia (Primary Dx) Social History Tobacco Use Types [...] Filled Start Date End Date fluconazole (DIFLUCAN) 150 mg tablet Take 1 Tab by mouth once for 3 doses. 3 Tab 0 04/29/2010 03/14/2012 documented in this encounter Plan of Treatment Upcoming Encounters Date Type Department Care Team (Late st Contact Info) Description 10/17/2024 10:20 EST Telemedicine [facility] Endocrinology - [facility] [address] [place], [place] [phone] Ariela Woods MD 62 [facility] [address] [place] [address] 10/18/2024 9:15 EST Telemedicine [facility] BODY WORK AUTO TRIMMER Pelvic Medicine and Reconstructive Surgery - Medical Office Building [facility] [address] [place], [place] [phone] Kelsy Fierro MD [address] [place] [address] Medical Office Building, [address] [place] [phone] documented as of this encounter Visit Diagnoses Diagnosis Dyspareunia- Primary documented in this encounter Care Teams Residential Framing Carpenter Relationship Specialty Start Date End Date Campos Lopes MD [address] [place], [place] [phone] PCP - General 05/21/09 documented as of this encounter
--- OUTSIDE RECORDS SUMMARY | 2024-10-09 11:24 | XMS_ITS | Encounter Summary ---
Author Organization [facility] Address [address] [place] [address] Care Team Providers Care Sde Name Role Phone Campos Lopes MD Primary Care Provider [phone] Encounter Details Date Type Department Care Team (Late Contact Info) Description 03/31/2012 Results Only Imaging [facility] Surgical Oncology - [facility] [address] [place], [place] [phone] Tye Navarro MD 111 [facility], [address] [place] [address] Social History Tobacco Use Types [...] Contact Info) Description 10/17/2024 10:20 EST Telemedicine [facility] Endocrinology - [facility] [address] [place] [address] Ariela Woods MD 62 [facility] [address] [place] [address] 10/18/2024 9:15 EST Telemedicine [facility] COMMERCIAL RELATIONSHIP MANAGER Pelvic Medicine and Reconstructive Surgery - Medical Office Building [facility] [address] [place], [place] [phone] Kelsy Fierro MD 2 [facility] Medical Office [facility] [address] [place] [phone] documented as of this encounter Visit Diagnoses Not on filedocumented in this encounter Care Teams Sde Relationship Specialty Start Date End Date Campos Lopes MD [address] [place], [place] [phone] PCP - General 05/21/09 documented as of this encounter
--- OUTSIDE RECORDS SUMMARY | 2024-10-09 11:24 | XMS_ITS | Encounter Summary ---
Author Organization [facility] Address [address] [place] [address] Care Team Providers Care Pillowcase Folder Name Role Phone Campos Lopes MD Primary Care Provider [phone] Encounter Details Date Type Department Care Team (Late st Contact Info) Description 02/17/2010 Abstract [facility] Pelvic Medicine and Reconstructive Surgery - Medical Office [facility] [address] [place] [address] Melina Avalos MD [address] [place] [phone] HTN (hypertension); Tremor; Vulvodynia Social History Tobacco Use Types Packs/Day Years [...] [facility] [address] [place] [address] Ariela Woods MD 62 [facility] [address] [place] [address] 10/18/2024 9:15 EST Telemedicine [facility] SPACE SCIENCES DIRECTOR Pelvic Medicine and Reconstructive Surgery - Medical Office Building [facility] [address] [place] [address] Kelsy Fierro MD [address] [facility] Medical Office Building, [address] [place] [address] documented as of this encounter Visit Diagnoses Diagnosis HTN (hypertension) Unspecified essential hypertension Tremor Abnormal involuntary movements Vulvodynia Vulvodynia, unspecified documented in this encounter Historical Medications * This list may reflect changes made after this encounter. metronidazole (FLAGYL) 500 mg tablet Take by mouth. As directed 2 trimethoprim (TRIMPEX) 100 mg tablet Take 100 mg by mouth daily. 0 ibuprofen (MOTRIN) 200 mg tablet Take 4 Tablets by mouth every 8 hours as needed for Pain. 3 tolterodine (DETROL LA) 4 mg ER capsule Take 4 mg by mouth daily. 1 ESTRADIOL (ESTRACE VAGL) Place vaginally once a week. 0 atenolol (TENORMIN) 25 mg tablet Take 25 mg by mouth daily as needed. 0 added in this encounter Care Teams Pillowcase Folder Relationship Specialty Start Date End Date Campos Lopes MD [address] [place] [address] PCP - General 05/21/09 documented as of this encounter
--- OUTSIDE RECORDS SUMMARY | 2024-10-09 11:24 | XMS_ITS | Encounter Summary ---
Author Organization [facility] Address [address] [place] [address] Care Team Providers Care Concrete Finisher Apprentice Name Role Phone Campos Lopes MD Primary Care Provider [phone] Reason for Visit * Reason Comments Urinary Frequency follow up Encounter Details Date Type Department Care Team (Latest Contact Info) Description 03/12/2010 11:00 EDT Office Visit [facility] Pelvic Medicine and Reconstructive Surgery - Medical Office [facility] [address] [place], [place] [phone] Melina Avalos MD [address] [address] Vaginal discharge (Primary Dx); Vaginal atrophy; Urinary frequency; Painful bladder spasm Discharge Disposition: Auto Discharge Social History Tobacco [...] documented in this encounter Progress Notes * Tre Haq RN - 03/12/2010 1503 EDTAddended by: TRE HAQ on: 03/12/2010 Modules accepted: Orders * Melina Avalos - 03/12/2010 1451 EDT SUBJECTIVE: Maureen Thomas presents with periurethral irritation and urinary frequency for 3 year(s). Symptoms have waxed and waned. Detrol-LA 4 mg PRN has relieved frequency symptoms somewhat. Has been treated for UTI on numerous occasions in the past, but has had negative catheterized urine cultures in our office. CCMS specimens have all been contaminants. Using Estrace cream 2 x aweek with mild benefit. Did a short trial [...] findings: external genitalia normal, Bartholin's glands, urethra, Greenock's glands negative, vaginal mucosa normal, cervix clear, normal sized uterus, adnexae negative, saline prepnegative for clue cells, motile trichomonas organisms and WBC's Cultures obtained: GC and Chlamydia genprobes, bacterial culture and urine culture. 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 Will follow up of vaginal cultures. If all culturesnegative, will assume PBS and discuss appropriate treatment options. Advised pt to initiate probiotics given the years of intermittent antiobiotic use. F/U PRN. Symptomatic local care discussed, Educational materials distributed documented in this encounter Plan of Treatment Upcoming Encounters Date Type Department Care Team (Late st Contact Info) Description 10/17/2024 10:20 EST Telemedicine [facility] Endocrinology - [facility] [address] [place] [address] Ariela Woods MD 62 [facility] [address] [place] [address] 10/18/2024 9:15 EST Telemedicine [facility] STUFFER Pelvic Medicine and Reconstructive Surgery - Medical Office Building [facility] [address] [place] [address] Kelsy Fierro MD 2 [facility] Medical Office Building, [address] [place] [address] documented as of this encounter Procedures Procedure Name Priority Date/Time Associated Diagnosis Comments BACTERIAL CULTURE/SMEAR, URINE Routine 03/12/2010 14:59 EDT Urinary frequency ZZVAGINITIS EXAM Routine 03/12/2010 14:3 9 EDT Vaginal discharge UREAPLASMA PCR Routine 03/12/2010 14:38 EDT Vaginal discharge MYCOPLASMA HOMINIS PCR-TEMP UNAVALABLE Routine 03/12/2010 14:38 EDT Vaginal discharge documented in this encounter Results * BACTERIAL CULTURE/SMEAR, URINE (03/12/2010 14:59 EDT) Specimen Description Urine [facility] Gram Smear Result No polys seen No bacteria seen [facility] Result No growth [facility] Report Status Final 03/14/2010 [facility] Specimen of unknown material (specimen) 03/12/2010 14:59 EDT 03/12/2010 17:39 EDT us Melina Avalos MD MICROBIOLOGY - GENERAL [facility] Final Result [facility] [address] [place] [address] * VAGINITIS EXAM (03/12/2010 14:39 EDT) Specimen Description Vagina [facility] Gram Smear Result No yeast or clue cells seen. [facility] Result No Trichomonas antigen detected. [facility] Report Status Final 03/12/2010 [facility] Specimen of unknown material (specimen) 03/12/2010 14:39 EDT 03/12/2010 17:56 EDT Melina Avalos MD MICROBIOLOGY - [facility]AL [facility] Final Result [facility] [address] [place] [address] * CULTURE, UREAPLASMA UREALYTICUM (03/12/2010 14:38 EDT) Specimen Description VAGINAL DISCHARGE [facility] Result-Ureaplas ma Culture No growth after 5 days ? [facility] Report Status FINAL [id number] ? Performed or Referred by: [facility] Dpt of Lab Med and Path, [address] ? [place] [address], Lab Dir: Mike Aguirre III, ? MD ? [facility] Specimen of unknown material (specimen) 03/12/2010 14:38 EDT 03/12/2010 16:38 EDT us Melina Avalos MD MICROBIOLOGY - GENERAL [facility] Final Result Performing Organization Address [facility] de Phone Number [facility] [address] [place] [address] * CULTURE, MYCOPLASMA HOMINIS (03/12/2010 14:38 EDT) Specimen Description VAGINAL DISCHARGE [facility] Result-Mycoplas ma hominis Culture No growth after 5 days ? [facility] Report Status FINAL [id number] ? Performed or Referred by: [facility] Dpt of Lab Med and Path, [address] ? [place] [id number], Lab Dir: Mike Aguirre III, ? MD ? [facility] Specimen of unknown material (specimen) 03/12/2010 14:38 EDT 03/12/2010 16:38 EDT us Melina Avalos MD MICROBIOLOGY - GENERAL [facility] Final Result Performing Organization Address [facility] Co de Phone Number [facility] [address] [place] [address] documented in this encounter Visit Diagnoses Diagnosis Vaginal discharge- Primary Leukorrhea, not specified as infective Vaginal atrophy Postmenopausal atrophic vaginitis Urinary frequency Painful bladder spasm Other symptoms involving urinary system documented in this encounter Historical Medications * This list may reflect changes made after this encounter. estradiol (ESTRACE) 0.01 % (0.1 mg/g) vaginal cream Place 2 g vaginally. Per vagina 2 x weekly 11/16/2010 added in this encounter Orders Lab Orders Without Results Count Last Ordered D ate First Ordered Date CHLAMYDIA TRACHOMATIS CULTURE 1 03/12/2010 documented in this encounter Care Teams Concrete Finisher Apprentice Relationship Specialty Start Date End Date Campso Lopes MD [address] [address] PCP - General 05/21/09 documented as of this encounter
--- OUTSIDE RECORDS SUMMARY | 2024-10-09 11:24 | XMS_ITS | Encounter Summary ---
Author Organization [facility] Address [address] [place] [address] Care Team Providers Care Cricket Coach Name Role Phone Campos Lopes MD Primary Care Provider [phone] Reason for Visit * Reason Onset Date Comments Results 10/16/2010 Patient says her PCP never received clinic note and letter Encounter Details Date Type Department Care Team ([facility] Contact Info) Description 10/16/2010 Telephone [facility] Endocrinology - [address] [address] Thomas Brown MD [address] [place] [phone] Results (Patient says her PCP never received clinic note and letter) Social History Tobacco Use Types Packs/Day Years [...] encounter Miscellaneous Notes * Telephone Encounter - Thomas Brown - 10/16/2010 0713 EST Would you please send a copy of my clinic note and the letter I sent to the patient on 09/09/10 to her PCP? Actually, please fax so we know he gets it bradly. Thanks very much, Thomas documented in this encounter Plan of Treatment Upcoming Encounters Date Type Department Care Team (Late st Contact Info) Description 10/17/2024 10:20 EST Telemedicine [facility] Endocrinology - [facility] [address] [place], [place] [phone] Ariela Woods MD 62 [facility] [address] [place] [phone] 10/18/2024 9:15 EST Telemedicine [facility] FERRYBOAT OPERATOR HELPER Pelvic Medicine and Reconstructive Surgery - Medical Office Building [address] [phone] Kelsy Fierro MD [address] [place] [address] Medical Office [facility], [address] [phone] documented as of this encounter Visit Diagnoses Not on filedocumented in this encounter Care Teams Cricket Coach Relationship Specialty Start Date End Date Campos Lopes MD [address] [place] [address] PCP - General 05/21/09 documented as of this encounter
--- OUTSIDE RECORDS SUMMARY | 2024-10-09 11:24 | XMS_ITS | Encounter Summary ---
Author Organization [facility] Address [address] [place] [address] Care Team Providers Care Mailhouse Operator Name Role Phone Unavailable Primary Care Provider Unavailabl e Encounter Details Date Type Department Care Team (Late Contact Info) Description 09/08/2001 15:49 EST Hospital Encounter [facility] [address] [place] [address] Campos Lopes MD [address] [place] [address] Social History Tobacco Use Types Packs/Day Years [...] 12:50 EDT documented as of this encounter Plan of Treatment Upcoming Encounters Date Type Department Care Team (Late Contact Info) Description 10/17/2024 10:20 EST Telemedicine [facility] Endocrinology - [place] [address] [place] [address] Ariela Woods MD 62 [facility] [address] [place] [address] 10/18/2024 9:15 EST Telemedicine [facility] CALF SKINNER Pelvic Medicine and Reconstructive Surgery - Medical Office Building [facility] [address] [place] [address] Kelsy Fierro MD [address] [place] [address] Medical Office Building, [address] [place] [phone] documented as of this encounter Visit Diagnoses Not on filedocumented in this encounter
--- OUTSIDE RECORDS SUMMARY | 2024-10-09 11:24 | XMS_ITS | Encounter Summary ---
Author Organization [facility] Address [address] [place] [address] Care Team Providers Care Oak Tanner Name Role Phone Campos Lopes MD Primary Care Provider [phone] Reason for Visit * Reason Onset Date Comments Prior Auth, Medication 06/25/2011 Encounter Details Date Type Department Care Team (Late st Contact Info) Description 06/25/2011 Telephone [facility] Pelvic Medicine and Reconstructive Surgery - Medical Office [facility] [address] [place] [address] Melina Avalos MD [address] [address] Prior Auth, Medication Social History Tobacco Use [...] encounter Miscellaneous Notes * Telephone Encounter - Line, JAZIEL Taylor - 06/25/2011 0010 EDT Images from the original note were not included. Melina, If you wish to pursue this, you will need to write a letter of medical necessity for Maureen. Please let us know when you have completed and nursing will submit it for you. Thanks. Claudia Haq R.N.,DarrinUJonathanRJonathanN. Nurse Clinician Contin[facility] phone: fax: e-mail: [email or web address] From: Maureen Thomas [[email or web address]] Sent: Saturday, June 25, 2011 2:03 PM To: Claudia Haq Subject: Re: Mark Summers. hope all is well. I have a problem however. Last time I tried to renew hi Claudia, it is my understanding that if a doctor requests this med as something for which no substitue works that the insurance company is required to provide same. I know that the insurance will notapprove this without a doctor's request. No I am not interested in tablets, it is the cream that isrequired. Would you please pass this email on to Melina so that I can get what is needed. Thank you. Maureen Thomas * Telephone Encounter - Claudia Haq RN - 06/25/2011 9577 EDT Maureen, I contacted you insurance carrier and they have denied approval for Estrace Vaginal cream however they are able to give approval for Vagifem Vaginal tablets. Please let me know if this is something you are interested in trialing and I can escribe it to your pharmacy. Claudia Haq R.N.,C.U.R.N. Nurse Clinician Contin[facility] Center phone: fax: e-mail: [email or web address] -----Original Message----- From: Melina Avalos Sent: June 2:19 PM To: Claudia Haq Subject: FW: Hi Melina. hope all is well. I have a problem however. Last time I tried to renew Claudia, can you get Estrace renewed for Maureen? Thx Melina Avalos. From: Maureen Thomas [[email or web address]] Sent: June 12:19 PM To: Melina Avalos Subject: Mark Summers. hope all is well. I have a problem however. Last time I tried to renew Estrace I was told that insurance wouldnt cover it. But it has always required M.D. approval to make an exception. Your office/you ordered premarin, which burger every time I use it. What can be done.Burning defeats the purpose of using this medication. thanks, Maureen Thomas * Telephone Encounter - Cathy Mehta - 06/25/2011 1120 EDT Insurance needs prior auth. For Ishan, Maureen can not use Premarin becuase it burger her. If you need any more info you can call Maureen documented in this encounter Plan of Treatment Upcoming Encounters Date Type Department Care Team (Late st Contact Info) Description 10/17/2024 10:20 EST Telemedicine [facility] Endocrinology - [address] [address] Ariela Woods MD [address] [place] [phone] 10/18/2024 9:15 EST Telemedicine [facility] FIREWOOD CUTTER Pelvic Medicine and Reconstructive Surgery - Medical Office Building [facility] [address] [place] [address] Kelsy Fierro MD [address] [place] [address] Medical Office Building, [address] [phone] documented as of this encounter Visit Diagnoses Not on filedocumented in this encounter Care Teams Oak Tanner Relationship Specialty Start Date End Date Campos Lopes MD [address] [place] [address] PCP - General 05/21/09 documented as of this encounter
--- OUTSIDE RECORDS SUMMARY | 2024-10-09 11:24 | XMS_ITS | Encounter Summary ---
Author Organization [facility] Address [address] [place] [address] Care Team Providers Care Supercharge Repair Supervisor Name Role Phone Unavailable Primary Care Provider Unavailabl e Encounter Details Date Type Department Care Team (Latest Contact Info) Description 08/29/2001 13:08 EST Hospital Encounter [facility] [address] [place] [address] Axel Foster MD [address] [place] [address] Discharge Disposition: Auto Discharge Social History Tobacco [...] Description 10/17/2024 10:20 EST Telemedicine [facility] Endocrinology - [facility] [address] [place] [address] Ariela Woods MD 62 [facility] [address] [place] [address] 10/18/2024 9:15 EST Telemedicine [facility] MATERIAL CUTTER Pelvic Medicine and Reconstructive Surgery - Medical Office [facility] [address] [place] [address] Kelsy Fierro MD 2 [facility], [address] [address] documented as of this encounter Procedures Procedure Name Priority Date/Time Associated Diagnosis Comments CHEST PA AND LATERAL Routine 08/29/2001 13:40 EST documented in this encounter Results * CHEST PA AND LATERAL (08/29/2001 13:40 EST) Anatomical Region Laterality Modality Other 08/29/2001 13:4 0 EST Narrative 08/29/2009 4:03 EST + PPD ?? ---- R/O ACTIVE DISEASE FOR EMPLOYMENT PA AND LATERAL VIEWS OF THE CHEST: 08/29/01. FINDINGS: The heart and pulmonary vasculature are normal. There is a somewhat ill-defined opacity over the left upper lobe that measures 1.5 cm, that could represent a pulmonary nodule, and there may be one or two tiny nodules adjacent to this. The lungs otherwise are clear, and there is no pleural effusion. We understand that there is either a positive PPD or conversion, and additional appropriate studies would be recommended to image this further. I would suggest that the patient be scheduled for an HRCT. It might be prudent to obtain a PA view of the chest before the procedure to be inspected by the radiologist, to make certain that this is not artifact or other built-up overlying opacity. At this point my presumption is that there are one or more small nodular opacities in the left upper lobe. /juliann Procedure Note Maury Spence MD - 08/29/2009 + PPD ---- R/O ACTIVE DISEASE FOR EMPLOYMENT PA AND LATERAL VIEWS OF THE CHEST: 08/29/01. FINDINGS: The heart and pulmonary vasculature are normal. There is a somewhat ill-defined opacity over the left upper lobe that measures 1.5 cm, that could represent a pulmonary nodule, and there may be one or two tiny nodules adjacent to this. The lungs otherwise are clear, and there is no pleural effusion. We understand that there is either a positive PPD or conversion, and additional appropriate studies would be recommended to image this further. I would suggest that the patient be scheduled for an HRCT. It might be prudent to obtain a PA view of the chest before the procedure to be inspected by the radiologist, to make certain that this is not artifact or other built-up overlying opacity. At this point my presumption is that there are one or more small nodular opacities in the left upper lobe. /juliann Axel Foster MD IMG DIAGNOSTIC IMAGING OR DERABLES Final Result documented in this encounter Visit Diagnoses Not on filedocumented in this encounter
--- OUTSIDE RECORDS SUMMARY | 2024-10-09 11:24 | XMS_ITS | Encounter Summary ---
Author Organization [facility] Address [address] [place] [address] Care Team Providers Care Door Clamper Name Role Phone Campos Lopes MD Primary Care Provider [phone] Reason for Visit * Reason Onset Date Comments Medications Refill 03/22/2011 Encounter Details Date Type Department Care Team (Late st Contact Info) Description 03/22/2011 Refill [facility] Pelvic Medicine and Reconstructive Surgery - Medical Office [facility] [address] [place], [place] [phone] Melina Avalos MD [address] [phone] Medications Refill Social History Tobacco Use Types [...] a week 1 Tube 11 11/26/2010 1 estradiol (ESTRACE) 0.01 % (0.1 mg/g) vaginal cream Place vaginally. Per vagina 2 x weekly 1 Tube 11 04/05/2011 1 tolterodine (DETROL LA) 4 mg ER capsule Take 1 Cap by mouth daily. 30 Cap 6 03/22/2011 4 documented in this encounter Miscellaneous Notes * Telephone Encounter - Kitri Neil RN - 04/07/2011 1436 EDTAddended by: POLO NEIL on: 04/07/2011 Modules accepted: Orders, Medications * Telephone Encounter - Kirti Neil RN [...] her to call if she had questions. * Telephone Encounter - Kirti Neil RN - 04/05/2011 1040 EDT Premarin discontinued. Estrace escribed. * Telephone Encounter - Cathy Mehta - 04/05/2011 0942 EDT Patient called last week for estrace cream and Premarin was called in, not sure what happened. Please correct this as she is out today documented in this encounter Plan of Treatment Upcoming Encounters Date Type Department Care Team (Late st Contact Info) Description 10/17/2024 10:20 EST Telemedicine [facility] Endocrinology - [address] [address] Ariela Woods MD [address] [place] [address] 10/18/2024 9:15 EST Telemedicine [facility] GROUP PRESIDENT Pelvic Medicine and Reconstructive Surgery - Medical Office Building [facility] [address] [place] [phone] Kelsy Fierro MD 2 [facility] Medical Office [facility], [address] [place] [phone] documented as of this encounter Visit Diagnoses Not on filedocumented in this encounter Discontinued Medications Medication Sig Discontinue Reason Start Date End Da te tolterodine (DETROL LA) 4 mg ER capsule Take 4 mg by mouth daily. Reorder 03/22/2011 conjugated estrogens 0.625mg/G (PREMARIN) vaginal cream Place 0.63 g vaginally twice a week. At bed time for 7 days, then at bedtime twice a week Error 11/26/2010 04/05/2011 estradiol (ESTRACE) 0.01 % (0.1 mg/g) vaginal cream Place vaginally. Per vagina 2 x weekly Insurance does not cover 04/05/2011 04/07/2011 documented as of this encounter Care Teams Door Clamper Relationship Specialty Start Date End Date Campos Lopes MD [address] [place] [address] PCP - General 05/21/09 documented as of this encounter
--- OUTSIDE RECORDS SUMMARY | 2024-10-09 11:24 | XMS_ITS | Encounter Summary ---
Author Organization [facility] Address [address] [place] [address] Care Team Providers Care Manager Office Services Name Role Phone Campos Lopes MD Primary Care Provider [phone] Reason for Visit * Reason Onset Date Comments Medications Refill 11/16/2010 Encounter Details Date Type Department Care Team (Late st Contact Info) Description 11/16/2010 Refill [facility] Pelvic Medicine and Reconstructive Surgery - Medical Office [facility] [address] [place], [place] [phone] Melina Avalos MD [address] [phone] Medications Refill Social History Tobacco Use Types [...] Per vagina 2 x weekly 1 Tube 6 11/16/2010 11/26/2010 documented in this encounter Miscellaneous Notes * Telephone Encounter - Parvez, Sammi - 11/16/2010 0842 EST Refill from pharmacy Last refill date 08.21.10. documented in this encounter Plan of Treatment Upcoming Encounters Date Type Department Care Team (Late st Contact Info) Description 10/17/2024 10:20 EST Telemedicine [facility] Endocrinology - [facility] [address] [place], [place] [phone] Ariela Woods MD 62 [facility] [address] [place] [phone] 10/18/2024 9:15 EST Telemedicine [facility] SET UP OPERATOR TOOL Pelvic Medicine and Reconstructive Surgery - Medical Office [address] [phone] Kelsy Fierro MD [address] [place] [address] Medical Office [facility], [address] [place] [phone] documented as of this encounter Visit Diagnoses Not on filedocumented in this encounter Discontinued Medications Medication Sig Discontinue Reason Start Date End Da te estradiol (ESTRACE) 0.01 % (0.1 mg/g) vaginal cream Place 2 g vaginally. Per vagina 2 x weekly Reorder 11/16/2010 documented as of this encounter Care Teams Manager Office Services Relationship Specialty Start Date End Date Campos Lopes MD [address] [place] [address] PCP - General 05/21/09 documented as of this encounter
--- OUTSIDE RECORDS SUMMARY | 2024-10-09 11:24 | XMS_ITS | Encounter Summary ---
Author Organization [facility] Address [address] [place] [address] Care Team Providers Care Horse Groomer Name Role Phone Campos Lopes MD Primary Care Provider [phone] Encounter Details Date Type Department Care Team (Late Contact Info) Description 09/11/2004 Results Only [facility] - Maple conversion [address] [place] [address] Wero Rowell MD [address] [place], [place] [address] Social History Tobacco Use Types Packs/Day Years [...] Contact Info) Description 10/17/2024 10:20 EST Telemedicine [facility] Endocrinology - [facility] [address] [place] [address] Ariela Woods MD 62 [facility] [address] [place] [address] 10/18/2024 9:15 EST Telemedicine [facility] BOWL TURNER Pelvic Medicine and Reconstructive Surgery - Medical Office [facility] [address] [place] [address] Kelsy Fierro MD 2 [facility] Eloise Santos, Medical Office Building, [address] [place] [address] documented as of this encounter Procedures Procedure Name Priority Date/Time Associated Diagnosis Comments CYTOPATHOLOGY Routine 09/11/2004 0:00 EST documented in this encounter Results * CYTOPATHOLOGY (09/11/2004 0:00 EST) Pathology Report: CYTOPATHOLOGY REPORT Reports generated via electronic interface contain original data; however they are lacking the format of the original report. Caution should be taken when reading/interpreti ng unformatted reports. Name: ? MAUREEN BAEZ ? Accession #: ? [id number] : ? 1940 (Age: 64) ??F ?Collect Date: ? 09/11/2004 Location: ? [facility] ? Receive Date: ? 09/14/2004 Provider: ?WERO ROWELL MD Copy to: ? Specimen/Source: ?ThinPrep Pap Test, Cervix/Endocervix Last Menstrual Period: ? 6 years ago Other: ? HPVA - HPV testing requested if ASC-US on the current ThinPrep Pap test. ? SPECIMEN ADEQUACY ? Satisfactory for Evaluation - transformation zone component present GENERAL CATEGORIZATION ? Negative for Intraepithelial Lesion or Malignancy ? Document reviewed and electronically signed by: ? JAVIER Hoang(ASCP) ? Report Date: ??09/18/2004 08:11 End of Report [facility] 09/11/2004 09/14/2004 us Wero Rowell MD PATHOLOGY ORDERABLES Final Resul t [facility] [address] [place] [address] documented in this encounter Visit Diagnoses Not on filedocumented in this encounter Care Teams Horse Groomer Relationship Specialty Start Date End Date Campos Lopes MD [address] [place] [address] PCP - General 05/21/09 documented as of this encounter
--- OUTSIDE RECORDS SUMMARY | 2024-10-09 11:24 | XMS_ITS | Encounter Summary ---
Author Organization [facility] Address [address] [place] [address] Care Team Providers Care Brake Assembler Name Role Phone Campos Lopes MD Primary Care Provider [phone] Reason for Visit * Reason Comments Hyperthyroidism Encounter Details Date Type Department Care Team (Latest Contact Info) Description 08/19/2010 15:00 EST Office Visit [facility] Endocrinology - [address] [address] Thomas Brown MD [address] [place] [address], [address] [phone] Hyperthyroidism (Primary Dx) Social History Tobacco Use [...] documented in this encounter Progress Notes * Thomas Brown - 08/19/20102129 EST Endocrinology Initial [...] increased stool frequency, increased urinary frequency, muscle cramps or weakness, weight gain and weight loss. Symptoms have been present for 5 years. The patient denies use of thyroid medicines. Prior studies include TSH, FT4, TT3 and nothing more that I knowof, but I do not have access to any records except for her labs from May,.. Family history i ncludes unknown - either she is adopted or [...] <0.02* 08/19/2010 Lab Results Component Value Date [id number] 134 08/19/2010 No components found with this basename: FREET3 No results found for this basename: [id number] Lab Results Component Value Date FREET4 1.1 [...] to undergo any sort of iodine exposure fordiagnosis, so we will perform a sestamibi scan [...] Follow up: 8 weeks and as needed. Thomas Brown MD 08/19/2010 21:22 documented in this encounter Plan of Treatment Upcoming Encounters Date Type Department Care Team (Late st Contact Info) Description 10/17/2024 10:20 EST Telemedicine [facility] Endocrinology - [facility] [address] [place] [address] Ariela Woods MD 62 [facility] [address] [place] [address] 10/18/2024 9:15 EST Telemedicine [facility] CHEMIST ENZYMES Pelvic Medicine and Reconstructive Surgery - Medical Office [facility] [address] [place], [place] [address] Kelsy Fierro MD [address] [place], [place] [address]ny Tom, Medical Office Building, [address] [place] [address] documented as of this encounter Procedures Procedure Name Priority Date/Time Associated Diagnosis Comments THYROTROPIN RECEPTOR ANTIBODY Routine 08/19/2010 15:47 EST Hyperthyroidism THYROPEROXIDASE ANTIBODY Routine 08/19/2010 15:47 EST Hyperthyroidism T3, TOTAL Routine 08/19/2010 15:47 EST Hyperthyroidism TSH Routine 08/19/2010 15:47 EST Hyperthyroidism T4 FREE Routine 08/19/2010 15:47 EST Hyperthyroidism documented in this encounter Results * THYROPEROXIDASE ANTIBODY (08/19/2010 15:47 EST) Thyroid Peroxidase Ab <10 <35 IU/mL [facility] Blood specimen (specimen) 08/19/2010 15:47 EST 08/19/2010 15:48 EST us Thomas Brown MD CHEMISTRY & BLOOD GAS ORDERABL ES Final Result Performing Organization Address City/State/[facility] Co de Phone Number [facility] [address] [place] [address] * THYROTROPIN RECEPTOR ANTIBODY (08/19/2010 15:47 EST) Thyrotropin Receptor Ab <1.00Reference range: 0.00 to 1.75 Unit: IU/L At a decision limit of 1.75 IU/L, this assay has 97% ? sensitivity and 99% specificity for detection of Graves' ? disease. In healthy individuals and in patients with ? thyroid disease without diagnosis of Graves' disease, the ? upper limit of anti-TSHR values are 1.22 IU/L and 1.58 ? IU/L, respectively (97.5th percentiles). ? Performed by: [facility] [address] , [address] , [place] [address], Lab Dir: ??Mike Aguirre ? III, M.D. ? [facility] Blood specimen (specimen) 08/19/2010 15:47 EST 08/19/2010 15:48 EST Thomas Brown MD CHEMISTRY & BLOOD GAS ORDERABL ES Final Result Performing Organization Address [facility] Co de Phone Number [facility] [address] [place] [address] * T3, TOTAL (08/19/2010 15:47 EST) T3, Total 134 60 - 181 ng/dL [facility] Blood specimen (specimen) 08/19/2010 15:47 EST 08/19/2010 15:48 EST Thomas Brown MD CHEMISTRY & BLOOD GAS ORDERABL ES Final Result Performing Organization Address [facility] Co de Phone Number [facility] [address] [place] [address] * (ABNORMAL) TSH (08/19/2010 15:47 EST) TSH <0.02(L) 0.35 - 5.00 uIU/ml [facility] Blood specimen (specimen) 08/19/2010 15:47 EST 08/19/2010 15:48 EST us Thomas Brown MD CHEMISTRY & BLOOD GAS ORDERABL ES Final Result Performing Organization Address [facility] de Phone Number [facility] [address] [place] [address] * T4 FREE (08/19/2010 15:47 EST) Free T4 1.1 0.8 - 1.8 ng/dL [facility] Blood specimen (specimen) 08/19/2010 15:47 EST 08/19/2010 15:48 EST Thomas Brown MD CHEMISTRY & BLOOD GAS ORDERABL ES Final Result Performing Organization Address [facility] de Phone Number [facility] [address] [place] [address] documented in this encounter Visit Diagnoses Diagnosis Hyperthyroidism- Primary Thyrotoxicosis without mention of goiter or other cause, without mention of thyrotoxic crisis or storm documented in this encounter Discontinued Medications Medication Sig Discontinue Reason Start Date End Da te atenolol (TENORMIN) 25 mg tablet Take 25 mg by mouth daily as needed. 08/19/2010 ESTRADIOL (ESTRACE VAGL) Place vaginally once a week. 08/19/2010 Nitrofurantoin 50 mg Cap Take 50 mg by mouth daily. 04/29/2010 08/19/2010 documented as of this encounter Historical Medications * This list may reflect changes made after this encounter. PIRBUTEROL ACETATE (MAXAIR AUTOHALER INHL)Indications :Hyperthyroidism Inhale as directed 2 times daily. 08/19/2010 04/15/2014 fluticasone (FLOVENT) 110 mcg/Actuation inhalerIndicatio ns:Hyperthyroidi sm Inhale as directed every 12 hours. 04/15/2014 atenolol (TENORMIN) 50 mg tabletIndication s:Hyperthyroidis m Take 25 mg by mouth daily before breakfast. 01/26/2023 added in this encounter Care Teams Brake Assembler Relationship Specialty Start Date End Date Campos Lopes MD [address] [place] [address] PCP - General 05/21/09 documented as of this encounter
--- OUTSIDE RECORDS SUMMARY | 2024-10-09 11:24 | XMS_ITS | Encounter Summary ---
Author Organization [facility] Address [address] [place] [address] Care Team Providers Care Motion Picture Operator Name Role Phone aCmpos Lopes MD Primary Care Provider [phone] Encounter Details Date Type Department Care Team (Late st Contact Info) Description 03/12/2010 Results Only [facility] Pelvic Medicine and Reconstructive Surgery - Medical Office [facility] [address] [place] [address] Melina Avalos MD [address] [phone] Social History Tobacco Use Types Packs/Day Years [...] Info) Description 10/17/2024 10:20 EST Telemedicine [facility] Endocrinology - [facility] [address] [place] [address] Ariela Woods MD 62 [facility] [address] [place] [address] 10/18/2024 9:15 EST Telemedicine [facility] FUGITIVE DETECTIVE Pelvic Medicine and Reconstructive Surgery - Medical Office Building [facility] [address] [place] [address] Kelsy Fierro MD 2 [facility] Medical Office Building, [address] [place] [phone] documented as of this encounter Procedures Procedure Name Priority Date/Time Associated Diagnosis Comments CHLAMYDIA/N. GONORRHOEAE AMPLIFIED NUCLEIC ACID Routine 03/12/2010 14:38 EDT documented in this encounter Results * CHLAMYDIA/GC AMPLIFIED (03/12/2010 14:38 EDT) Specimen Description Vagina [facility] Chlamydia Result No Chlamydia trachomatis DNA detected by industrial rehabilitation consultant mediated amplification. [facility] GC Result No Neisseria gonorrhoeae DNA detected by industrial rehabilitation consultant mediated amplification. [facility] 03/12/2010 14:3 8 EDT 03/13/2010 7:31 EDT us Melina Avalos MD MICROBIOLOGY - GENERAL ORDERA BLES Final Result [facility] [address] [place] [address] documented in this encounter Visit Diagnoses Not on filedocumented in this encounter Care Teams Motion Picture Operator Relationship Specialty Start Date End Date Campos Lopes MD [address] [place] [address] PCP - General 05/21/09 documented as of this encounter
--- OUTSIDE RECORDS SUMMARY | 2024-10-09 11:24 | XMS_ITS | Encounter Summary ---
Author Organization [facility] Address [address] [place] [address] Care Team Providers Care Fire Investigation Manager Name Role Phone Campos Lopes MD Primary Care Provider [phone] Reason for Visit * Reason Onset Date Comments Other 09/02/2010 Sruthi has an ord er there for a nuclear med thyroid up take and scan. She needs to know if treatment is needed. Encounter Details Date Type Department Care Team (Late st Contact Info) Description 09/02/2010 Telephone [facility] Endocrinology - [facility] [address] [place] [address] Thomas Brown MD [address] [place] [address], [address] [phone] Other (Sruthi has an order there for a nuclear med thyroid up take and scan. She needs to know if treatment is needed.) Social History Tobacco Use [...] * Telephone Encounter - Carmen Turner - 06/15/2011 1734 EDT . documented in this encounter Plan of Treatment Upcoming Encounters Date Type Department Care Team (Late st Contact Info) Description 10/17/2024 10:20 EST Telemedicine [facility] Endocrinology - [facility] [address] [place] [address] Ariela Woods MD 62 [facility] [address] [place] [phone] 10/18/2024 9:15 EST Telemedicine [facility] LARGE ANIMAL HUSBANDRY TECHNICIAN Pelvic Medicine and Reconstructive Surgery - Medical Office Building [facility] [address] [place] [phone] Kelsy Fierro MD 2 [facility] Medical Office [facility], [address] [place] [phone] documented as of this encounter Visit Diagnoses Not on filedocumented in this encounter Care Teams Fire Investigation Manager Relationship Specialty Start Date End Date Campos Lopes MD [address] [place] [address] PCP - General 05/21/09 documented as of this encounter
--- OUTSIDE RECORDS SUMMARY | 2024-10-09 11:24 | XMS_ITS | Encounter Summary ---
Author Organization [facility] Address [address] [place] [address] Care Team Providers Care Checker Product Design Name Role Phone Campos Lopes MD Primary Care Provider [phone] Reason for Visit * Reason Onset Date Comments Prior Auth, Medication 06/28/2011 Encounter Details Date Type Department Care Team (Late Contact Info) Description 06/28/2011 Telephone [facility] Pelvic Medicine and Reconstructive Surgery - Medical Office [facility] [address] [place] [address] Makenzie Neil RN Prior Auth, Medication Social History Tobacco [...] Miscellaneous Notes * Telephone Encounter - Kirti Neil RN - 06/28/2011 2812 EDT Pt advised we are waiting for response to appeal letter for coverage of Estrace cream. documented in this encounter Plan of Treatment Upcoming Encounters Date Type Department Care Team (Late Contact Info) Description 10/17/2024 10:20 EST Telemedicine [facility] Endocrinology - [place] [address] [place], [place] [phone] Ariela Woods MD 62 [facility] [address] [place] [phone] 10/18/2024 9:15 EST Telemedicine [facility] STRAW HAT WASHER OPERATOR Pelvic Medicine and Reconstructive Surgery - Medical Office Building [facility] [address] [place], [place] [address] Kelsy Fierro MD 2 [facility] Medical Office [facility], [address] [place] [phone] documented as of this encounter Visit Diagnoses Not on filedocumented in this encounter Care Teams Checker Product Design Relationship Specialty Start Date End Date Campos Lopes MD [address] [place] [address] PCP - General 05/21/09 documented as of this encounter
--- OUTSIDE RECORDS SUMMARY | 2024-10-09 11:24 | XMS_ITS | Encounter Summary ---
Author Organization [facility] Address [address] [place] [address] Care Team Providers Care Programming Internship Name Role Phone Campos Lopes MD Primary Care Provider [phone] Encounter Details Date Type Department Care Team (Late st Contact Info) Description 04/25/2012 Documentation Visit [facility] Surgical Oncology - [facility] [address] [place], [place] [phone] Tye Navarro MD 111 [facility], [address] [place] [address] Social History Tobacco Use Types [...] documented as of this encounter Progress Notes * Tye Navarro MD - 04/26/2012 110 EDT DIVISION OF SURGICAL ONCOLOGY - [facility] April 25, 2012 aCmpos Lopes MD [facility] [address] [place] [address] Lopes: This is in regards to Maureen Thomas. As per my previous note, Ms Thomas has a multinodular thyroid gland with some mild hyperthyroidism. We did review the results of her nuclear medicine scanswhich were done in 08/2010. It appears that she has diffuse involvement of the thyroid gland with no specific nodule as the cause of her increased thyroid activity. It was thought that this might be c onsistent with Grave's disease; however, her blood work has not been compatible with that. Her overall evaluation with ultrasound and this nuclear scan indicates that she likely has a multinodular goiter with mild hyperthyroidism related to that. In that regard, the only reasonable option for treatment if she wanted to would be to do a total or near total thyroidectomy. As the patient isminimally symptomatic at this point, she does not seem to be willing to want to go through that. Itis possible that radioactive iodine may have an effect; however, this is not as effective for multinodular goiter. In regards to the nodule, these have a fairly typical benign appearance and doing needle biopsy I do not think is necessarily indicated as long as she continues to follow for this on aregular basis. We are therefore planning to have her return for a followup check in approximately one year. Thank you for allowing us to participate in her care. Sincerely, Electronically Signed by Tye Navarro MD 04/27/2012 13:10 Tye Navarro MD - Tye Navarro MD - Job ID: SM Doc ID: [id number] [facility] Doc ID: [id number] cc: Campos Lopes MD documented in this encounter Plan of Treatment Upcoming Encounters Date Type Department Care Team (Late st Contact Info) Description 10/17/2024 10:20 EST Telemedicine [facility] Endocrinology - [address] [address] Ariela Woods MD [address] [place] [address] [address] [place] [address] 10/18/2024 9:15 EST Telemedicine [facility] FOOD SERVICE STEWARD Pelvic Medicine and Reconstructive Surgery - Medical Office Building [facility] [address] [place], [place] [phone] Kelsy Fierro MD 2 [facility] Medical Office Building, [address] [place] [phone] documented as of this encounter Visit Diagnoses Not on filedocumented in this encounter Care Teams Programming Internship Relationship Specialty Start Date End Date Campos Lopes MD [address] [place], [place] [phone] PCP - General 05/21/09 documented as of this encounter
--- OUTSIDE RECORDS SUMMARY | 2024-10-09 11:24 | XMS_ITS | Encounter Summary ---
Author Organization [facility] Address [address] [place] [address] Care Team Providers Care Special Education Para Professional Name Role Phone Campos Lopes MD Primary Care Provider [phone] Encounter Details Date Type Department Care Team (Late st Contact Info) Description 12/12/2009 Results Only [facility] Pelvic Medicine and Reconstructive Surgery - Medical Office [facility] [address] [place] [address] Melina Avalos MD [address] [phone] Social History Tobacco Use Types Packs/Day Years [...] EST Telemedicine [facility] Endocrinology - [facility] [address] [place] [address] Ariela Woods MD 62 [facility] [address] [place] [address] 10/18/2024 9:15 EST Telemedicine [facility] LOGISTIC MANAGER Pelvic Medicine and Reconstructive Surgery - Medical Office Building [facility] [address] [place] [address] Kelsy Fierro MD 2 [facility] Office [facility], [address] [place] [phone] documented as of this encounter Procedures Procedure Name Priority Date/Time Associated Diagnosis Comments BACTERIAL CULTURE, URINE Routine 12/12/2009 12:51 EST documented in this encounter Results * BACTERIAL CULTURE, URINE (12/12/2009 12:51 EST) Specimen Description Urine [facility] Result Less than 10,000 CFU/ml Mixed gram positive growth [facility] Report Status Final 12/13/2009 [facility] Urine specimen (specimen) 12/12/2009 12:51 EST 12/12/2009 16:54 EST us Melina Avalos MD MICROBIOLOGY - GENERAL ORDERA BLES Final Result [facility] [address] [place] [address] documented in this encounter Visit Diagnoses Not on filedocumented in this encounter Care Teams Special Education Para Professional Relationship Specialty Start Date End Date Campos Lopes MD [address] [place] [address] PCP - General 05/21/09 documented as of this encounter
--- OUTSIDE RECORDS SUMMARY | 2024-10-09 11:24 | XMS_ITS | Encounter Summary ---
Author Organization [facility] Address [address] [place] [address] Care Team Providers Care Cotton Expert Name Role Phone Campos Lopes MD Primary Care Provider [phone] Encounter Details Date Type Department Care Team (Late Contact Info) Description 04/29/2010 Orders Only [facility] Pelvic Medicine and Reconstructive Surgery - Medical Office [facility] [address] [place] [address] Makenzie Neil, JAZIEL Urinary frequency [...] Refills Last Filled Start Date End Date Nitrofurantoin 50 mg Cap Take 50 mg by mouth daily. 30 Tab 11 04/29/2010 08/19/2010 documented in this encounter Plan of Treatment Upcoming Encounters Date Type Department Care Team (Late Contact Info) Description 10/17/2024 10:20 EST Telemedicine [facility] Endocrinology - [facility] [address] [place] [address] Ariela Woods MD [address] [facility] [address] [place] [address] 10/18/2024 9:15 EST Telemedicine [facility] MARKETING TRAFFIC MANAGER Pelvic Medicine and Reconstructive Surgery - Medical Office Building [facility] [address] [place] [address] Kelsy Fierro MD [address] [facility] Medical Office Building, [address] [place] [phone] documented as of this encounter Visit Diagnoses Diagnosis Urinary frequency- Primary documented in this encounter Discontinued Medications Medication Sig Discontinue Reason Start Date End Da te trimethoprim (TRIMPEX) 100 mg tablet Take 100 mg by mouth daily. Patient Stopped Taking 04/29/2010 documented as of this encounter Care Teams Cotton Expert Relationship Specialty Start Date End Date Campos Lopes MD [address] [place] [address] PCP - General 05/21/09 documented as of this encounter
--- OUTSIDE RECORDS SUMMARY | 2024-10-09 11:25 | XMS_ITS | Encounter Summary ---
[place] [address] Care Team Providers Care Anesthesia Resident Name Role Phone Rosario Bahena MD Primary Care Provider [phone] Reason for Referral * Consultation (Routine) - Closed Specialty Diagnoses / Procedures Referred By Lynnette osman Referred To Contact Neurology Diagnoses Polyneuropathy, unspecified Rosario Bahena MD [address] [place] [address] [facility] Neurology [address] [place] [id number] Referral ID Status Reason Start Date Expiration Date V isits Requested Visits Authorized [id number] Closed Consult, Test & Treat PCP Updated and/or Approved 01/03/2024 01/02/2025 6 6 Encounter Details Date Type Department Care Team (Latest Contact Info) Description 01/03/2024 Transcribe Orders [facility] Incoming Referrals [phone] Rosario Bahena MD [address] [place], [place] [id number] Polyneuropathy, unspecified Social History Tobacco Use Types Packs/Day Years Used Date Smoking Tobacco: Former Cigarettes Q uit: 1989 Alcohol Use Standard Drinks/Week Comments Not Asked 0 (1 standard drink = 0.6 oz pur e alcohol) 1 x 2 month Sex and Gender Information Value Date Recorded Sex Assigned at Not on file Gender Identity Not on file Sexual Orientation Not on file documented as of this encounter Plan of Treatment Scheduled Referrals Name Type Priority Associated Diagnoses Orde r Schedule Referral to Neurology Outpatient Referral Routine Polyneuropathy, unspecified Ordered: 01/03/2024 documented as of this encounter Visit Diagnoses Diagnosis Polyneuropathy, unspecified documented in this encounter Care Teams Anesthesia Resident Relationship Specialty Start Date End Date Rosario Bahena MD [address] [place] [address] PCP - General Family Medicine 01/03/24 documented as of this encounter
--- OUTSIDE RECORDS SUMMARY | 2024-10-09 11:25 | XMS_ITS | Encounter Summary ---
Author Organization [facility] Address [address] [facility] [address] Care Team Providers Care Cable Armorer Name Role Phone Campos Lopes MD Primary Care Provider [phone] Encounter Details Date Type Department Care Team (Late st Contact Info) Description 04/24/2016 Interpretation Only [address] [id number] Unknown None Social History Tobacco Use Types Packs/Day Years Used Date Smoking Tobacco: Never Assessed Sex and Gender Information Value Date Recorded Sex Assigned at Not on file Gender Identity Not on file Sexual Orientation Not on file documented as of this encounter Plan of Treatment Not on file documented as of this encounter Procedures Procedure Name Priority Date/Time Associated Diagnosis Comments XR KNEE AP LAT AXIAL PATELLA RIGHT Routine 04/24/2016 6:37 PM EDT documented in this encounter Results * XR Knee 3 Views Right (04/24/2016 6:37 PM EDT) Anatomical Region Laterality Modality Knee Right Radiographic Joi ging 04/24/2016 6:37 PM EDT Narrative 04/24/2016 6:37 PM EDT [facility] Historical Result Principal Assistant Technician: ??DELL GRAYSON RIGHT KNEE, THREE VIEWS: HISTORY: Pain and swelling in the lateral side of the knee to patella for 3 days. No injury. Hurts when walking. FINDINGS: No distinct or definite acute traumatic bony abnormality is appreciated. Mild degenerative spurring at the patellofemoral joint and lateral compartment is noted. Mild relative medial joint space narrowing is seen. If further evaluation is needed, MRI may be useful. IMPRESSION: Mild degenerative changes. Dictated by: ??Dell Lai M.D. Electronically Signed By: DELL LAI Released By: DELL LAI Date: ??04/30/2016 19:47 Procedure Note Unknown - 06/11/2020 [facility] Historical Result Principal Assistant Technician: DELL LAI RIGHT KNEE, THREE VIEWS: HISTORY: Pain and swelling in the lateral side of the knee to patella for3 days. No injury. Hurts when walking. FINDINGS: No distinct or definite acute traumatic bony abnormality isappreciated. Mild degenerative spurring at the patellofemoral joint and lateral compartmentis noted. Mild relative medial joint space narrowing is seen. If further evaluation isneeded, MRI may be useful. IMPRESSION: Mild degenerative changes. Dictated by: Dell Lai M.D. Electronically Signed By: DELL LAI Released By: DELL LAI Date: 04/30/2016 19:47 Unknown IMG DX ORDERABLES documented in this encounter Visit Diagnoses Not on filedocumented in this encounter Care Teams Cable Armorer Relationship Specialty Start Date End Date Campos Lopes MD [address] [address] PCP - General 09/01/10 01/02/24 documented as of this encounter
--- OUTSIDE RECORDS SUMMARY | 2024-10-09 11:25 | XMS_ITS | Encounter Summary ---
Author Organization [facility] [place] [address] Care Team Providers Care Decal Maker Name Role Phone Campos Lopes MD Primary Care Provider [phone] Encounter Details Date Type Department Care Team (Late st Contact Info) Description 11/17/2020 Ancillary Procedure Radiology Library at [facility] [place] [phone] Campos Lopes MD [address] [place], [place] [address] Social History Tobacco Use Types Packs/Day Years Used Date Smoking Tobacco: Never Assessed Sex and Gender Information Value Date Recorded Sex Assigned at Not on file Gender Identity Not on file Sexual Orientation Not on file documented as of this encounter Plan of Treatment Not on file documented as of this encounter Procedures Procedure Name Priority Date/Time Associated Diagnosis Comments FILM LIBRARY STORAGE ONLY CT CHEST Routine 11/17/2020 12:00 AM EST documented in this encounter Results * Film Library- Storage Only CT Chest (11/17/2020 12:00 AM EST) Narrative [facility] - 01/13/2023 9:22 AM EDT This exam is auto-finalizing. It's purpose is for storage only. Campos Lopes MD IMG FILM LIBRARY ORD ERABLES [place], [place] documented in this encounter Visit Diagnoses Not on filedocumented in this encounter Care Teams Decal Maker Relationship Specialty Start Date End Date Campos Lopes MD [address] [place] [address] PCP - General 09/01/10 01/02/24 documented as of this encounter
--- OUTSIDE RECORDS SUMMARY | 2024-10-09 11:25 | XMS_ITS | Encounter Summary ---
Author Organization [facility] [place] [address] Care Team Providers Care Dairy Associate Name Role Phone Campos Lopes MD Primary Care Provider [phone] Encounter Details Date Type Department Care Team (Late st Contact Info) Description 03/03/2012 Ancillary Procedure Radiology Library at [facility] [place] [phone] Campos Lopes MD [address] [place], [place] [address] Social History Tobacco Use Types Packs/Day Years [...] Associated Diagnosis Comments FILM LIBRARY STORAGE ONLY DX CHEST Routine 03/03/2012 12:00 AM EDT documented in this encounter Results * Film Library- Storage Only DX Chest (03/03/2012 12:00 AM EDT) Narrative [facility] - 01/13/2023 11:05 AM EDT This exam is auto-finalizing. It's purpose is for storage only. Campos Lopes MD IMG FILM LIBRARY ORD ERABLES [place], [place] documented in this encounter Visit Diagnoses Not on filedocumented in this encounter Care Teams Dairy Associate Relationship Specialty Start Date End Date Campos Lopes MD [address] [place] [address] PCP - General 09/01/10 01/02/24 documented as of this encounter
--- OUTSIDE RECORDS SUMMARY | 2024-10-09 11:25 | XMS_ITS | Encounter Summary ---
Author Organization [facility] [place] [address] Care Team Providers Care Software Engineer Kernel Name Role Phone Campos Lopes MD Primary Care Provider [phone] Encounter Details Date Type Department Care Team ([facility] st Contact Info) Description 02/28/2023 Telephone Gastroenterology at [facility] [place] [address] Ezra Jane Social History Tobacco Use Types Packs/Day Years Used Date Smoking Tobacco: Never Assessed Sex and Gender Information Value Date Recorded Sex Assigned at Not on file Gender Identity Not on file Sexual Orientation Not on file documented as of this encounter Miscellaneous Notes * Telephone Encounter - Ezra Jane - 02/28/2023 11:45 AM EDT Maureen Thomas [phone] Diagnosis/Indication: RUQ pain post CCY Please review patient chart to confirm if previous Endoscopy procedure was performed within system. If yes, take note of Anesthesia type used. If previous procedure found, and with MAC/propofol Anesthesia support was used, schedule this procedure with Anesthesia and skip the Anesthesia portion of questions. If not performed within system, not performed at all, or performed with IVCS, ask Anesthesia questions. SCHEDULING QUESTIONS (ask all patient these questions) 1. Have you ever had a/an Upper EUS before? No If yes, did you have any problems with the procedure (such as waking up during the procedure, pain or difficulties afterwards, etc.)? No What type of sedation was used: None 2. Do you take any blood thinners or have you been diagnosed with a bleeding disorder that increases your risk of bleeding with procedures? No 3. Do you have a Pacemaker or Defibrillator device? If yes, send pool message to Cardiology with patient information and date or procedure. No 4. Are you a diabetic? If yes, call PCP/managing provider to discuss use of prep and any questions or concerns related to. No 5. Do you take any iron supplements or vitamins that contain iron? No 6. Do you have a preference regarding the gender of your provider? No ANESTHESIA QUESTIONS (YES to any question, please book with Anesthesia support) 7. Have you ever been diagnosed with Pulmonary Hypertension and/or Congential Heart Disease? No 8. Have you been diagnosed with A-Fib (atrial fibrillation) that is NOT being well controled with medications? No 9. Have you ever had an allergic or adverse reaction to Fentanyl or Versed? No 10. Have you had a problem with sedation or anesthesia? (Waking up during procedure, extreme confusion after, etc.) No 11. Do you have a diagnosis of Obstructive Sleep Apnea that requires the use of a c-pap machine? No 12. Do you use an oxygen tank at home? No 13. Do you use a rescue inhaler more than twice per day? (COPD, severe asthma) No 14. Do you experience breathing problems when you lay flat for a period of time? No 15. Do you take prescription narcotic pain medications, including suboxone or methodone? No SCHEDULING CONFIRMATIONS: Please note any and all parts of your conversation with the patient here. 16. We offer all new patients an opportunity to have an appointment with one of our associate care providers to learn more about your upcoming procedure, ask questions and get answers. These appointments are offered via telehealth. Would you be interested in scheduling this appointment? (Only ask if NEW referral patient; skip this question if [facility] provider ordered the procedure.) No 17. Is there any other information or concerns you would like to us to share with your care team inrelation to your upcoming scheduled procedure? No 18. You must have a responsible libertarian who will drive you to your procedure, stay on campus for the entire duration of your procedure, and drive you home from your procedure. Who will likely be your m48/m60 tank driver for the procedure? *Please Verify the height and weight, and adjust if height and/or weight have changed* Estimated body mass index is 28.18 kg/m?? as calculated from the following: Height as of 5/17/23: 167.6 cm (5' 6). Weight as of 02/23/23: 79.2 kg (174 lb 9.6 oz). Age:83 y.o. documented in this encounter Plan of Treatment Not on file documented as of this encounter Visit Diagnoses Not on filedocumented in this encounter Care Teams Software Engineer Kernel Relationship Specialty Start Date End Date Campos Lopes MD [address] [place] [address] PCP - General 09/01/10 01/02/24 documented as of this encounter
--- OUTSIDE RECORDS SUMMARY | 2024-10-09 11:25 | XMS_ITS | Encounter Summary ---
Author Organization [facility] Address [facility] [address] Care Team Providers Care Dental Surgeon Name Role Phone Campos Lopes MD Primary Care Provider [phone] Encounter Details Date Type Department Care Team ([facility] st Contact Info) Description 07/27/2019 External Results Medical Records [facility] [place] [address] Provider, Scanning Social History Tobacco Use Types Packs/Day Years Used Date Smoking Tobacco: Never Assessed Sex and Gender Information Value Date Recorded Sex Assigned at Not on file Gender Identity Not on file Sexual Orientation Not on file documented as of this encounter Plan of Treatment Not on file documented as of this encounter Procedures Procedure Name Priority Date/Time Associated Diagnosis Comments SURGICAL PATHOLOGY SCAN Routine 07/27/2019 documented in this encounter Results * Scan Doc: Surgical Pathology (07/27/2019) Historical Provider MD [place] [facility] SCAN EX T ORDR/RSLT documented in this encounter Visit Diagnoses Not on filedocumented in this encounter Care Teams Dental Surgeon Relationship Specialty Start Date End Date Campos Lopes MD [address] [place] [address] PCP - General 09/01/10 01/02/24 documented as of this encounter
--- OUTSIDE RECORDS SUMMARY | 2024-10-09 11:25 | XMS_ITS | Encounter Summary ---
Author Organization [facility] Address [facility] [place] [address] Care Team Providers Care Perfect Bind Machine Operator Name Role Phone Campos Lopes MD Primary Care Provider [phone] Encounter Details Date Type Department Care Team (Latest Contact Info) Description 03/29/2023 9:01 AM EDT - 03/29/2023 11:18 AM EDT Hospital Encounter [place] [address] Campos Nieto MD [facility] [place] [address] Discharge Disposition: Home Social History Tobacco Use Types Packs/Day Years Used Date Smoking Tobacco: Former Cigarettes Q uit: 1989 Tobacco Cessation:Counseling Given: Not Answered Alcohol Use Standard Drinks/Week Comments Not Asked 0 (1 standard drink = 0.6 oz pur e alcohol) 1 x 2 month Sex and Gender Information Value Date Recorded Sex Assigned at Not on file Gender Identity Not on file Sexual Orientation Not on file documented as of this encounter Last Filed Vital Signs Vital Sign Reading Time Taken Comments Blood Pressure 129/55 03/29/2023 10:50 AM EDT Pulse 80 03/29/2023 9:20 AM EDT Temperature 36.4 ??C (97.5 ??F) 03/29/2023 9:20 AM ED T Respiratory Rate 16 03/29/2023 10:50 AM EDT Oxygen Saturation 95% 03/29/2023 10:50 AM EDT Inhaled Oxygen Concentration - - Weight 78.5 kg (173 lb) 03/29/2023 9:20 AM EDT Height 163.8 cm (5' 4.5) 03/29/2023 9:20 AM EDT Body Mass Index 29.24 03/29/2023 9:20 AM EDT documented in this encounter Discharge Instructions * Discharge Instructions* Moris Sykes RN - 03/29/2023 10:29 AM EDT Endoscopic Ultrasound (Oral): What to Expect At Home Your Recovery After you have an endoscopic ultrasound--a test to look for problems in the stomach, liver, gallbladder, and other organs--you will stay at the hospital or clinic for 1 to 2 hours. This will allow the medicine to wear off. You will be able to go home after your doctor or nurse checks to make sure you are not having any problems. You may have a sore throat for a day or two after the test. This care sheet gives you a general idea about what to expect after the test. How can you care for yourself at home? Activity Rest when you feel tired. You can do your normal activities when it feels okay to do so. Diet Follow your doctor's directions for eating. Unless your doctor has told you not to, drink plenty of fluids. Do not drink alcohol. Medicines Your doctor will tell you if and when you can restart your medicines. He or she will also give you instructions about taking any new medicines. If you take blood thinners, such as warfarin (Coumadin), clopidogrel (Plavix), or aspirin, be sure to talk to your doctor. He or she will tell you if and when to start taking those medicines again. Make sure that you understand exactly what your doctor wants you to do. If a biopsy was done during the test, your doctor may tell you not to take aspirin or other anti-inflammatory medicines for a few days. These include ibuprofen (Advil, Motrin) and naproxen (Aleve). If you have a sore throat the day after the procedure, use an euwq-dls-tntbuoo spray to numb your throat. Sucking on throat lozenges and gargling with warm salt water may also help relieve your symptoms. Other instructions For your safety, do not drive or operate machinery until the medicine wears off and you can think clearly. Your doctor may tell you not to drive or operate machinery until the day after your test. Do not sign legal documents or make major decisions until the medicine wears off and you can think clearly. The anesthesia can make it hard for you to fully understand what you are agreeing to. Additional Information for Sedation Patients For patients who received sedation: You may have received medications before and/or during your procedure which effects your judgement and reaction time. Do not drive, operate machinery, drink alcoholic beverages or make important decisions for 24 hours. Be careful on stairs as you may be unsteady on your feet. You may eat a regular diet as tolerated. Do not smoke if you are alone. IV site: Slight redness or tenderness is normal, you can use a warm compress if you would like. If tenderness and/or redness increase or if foul drainage occurs, please contact your Doctor. Please call [phone] before 8pm Mon-Fri with problems, questions or concerns. If you call after 8pm or on weekends, call the Hospital at [phone] and ask to speak to the Central Office Maintainer credit union field examiner and the wrap knitting machine operator will contact that person for you. When should you call for help? Call [phone] anytime you think you may need emergency care. For example, call if: You passed out (lost consciousness). You pass maroon or bloody stools. You have trouble breathing. Call your doctor now or seek immediate medical care if: You have pain that does not get better after you take pain medicine. You are sick to your stomach or cannot drink fluids. You have new or worse belly pain. You have blood in your stools. You have a fever. You cannot pass stools or gas. Watch closely for changes in your health, and be sure to contact your doctor if you have any problems. Where can you learn more? [facility] View your After Visit Summary and more online at [email or web address] If you would like to provide feedback about your hospital experience, please call the Office of Patient and Family Relations at . If you have received this After Visit Summary in error, please immediately return it in person to the department, or notify the [facility] Privacy Office by calling toll free at between the hours of 8AM and 5PM to arrange for our retrieval of the documents at no cost to you. Content Version: 12.2 ?? [id number] [employer]. Care instructions adapted under license by [facility]. If you have questions about a medical condition or this instruction, always ask your healthcare professional. [employer] disclaims any warranty or liability for your use of this information. documented in this encounter Medications at Time of Discharge Medication Sig Dispensed Refills Start Date End Date sulfamethoxazole-trimethop rim (Bactrim) 400-80 mg tablet Take 1 tablet by mouth 2 times daily. magnesium oxide (Mag-Ox) 400 mg (241.3 mg magnesium) Tablet Take 400 mg by mouth. metroNIDAZOLE (Flagyl) 500 mg tablet Take 500 mg by mouth 2 times daily. 02/14/2023 omeprazole (PriLOSEC) [address] capsule Take 20 mg by mouth Twice daily. ondansetron ODT (Zofran-ODT) 4 mg disintegrating tablet DISSOLVE 1 TABLET ON THE TONGUE EVERY 6 TO 8 HOURS NEEDED FOR NAUSEA 02/14/2023 Advair HFA 230-21 mcg/actuation HFA Aerosol Inhaler Inhale 2 puffs into the lungs 2 times daily. 12/29/2022 ergocalciferol, vitamin D2, 50 mcg (2,000 unit) Tablet Take 2,000 Units by mouth. Ventolin HFA 90 mcg/actuation HFA Aerosol Inhaler INHALE 2 PUFFS BY MOUTH EVERY 6 HOURS NEEDED FOR SHORTNESS OF BREATH OR WHEEZING 02/07/2023 mometasone (ELOCON) 0.1 % ointment 1 Appl(s), Top, 1-2X/day prn 07/22/2008 ATENOLOL ORAL 07/15/2008 FLUTICASONE PROPIONATE (FLOVENT HFA INHL) 07/15/2008 PIRBUTEROL ACETATE (MAXAIR AUTOHALER INHL) 07/15/2008 documented as of this encounter H&P Notes * Campos Nieto MD - 03/29/2023 9:54 AM EDT PROBLEM LIST There is no problem list on file for this patient. HISTORY OF PRESENT ILLNESS Maureen Thomas is a 83 y.o. y/o who presents for EUS for RUQ pain and possible ERCP if stones are present. MEDICATIONS No current facility-administered medications on file prior to encounter. Current Outpatient Medications on File Prior to Encounter Medication Sig Dispense Refill sulfamethoxazole-trimethoprim (Bactrim) 400-80 mg tablet Take 1 tablet by mouth 2 times daily. magnesium oxide (Mag-Ox) 400 mg (241.3 mg magnesium) Tablet Take 400 mg by mouth. Advair HFA 230-21 mcg/actuation HFA Aerosol Inhaler Inhale 2 puffs into the lungs 2 times daily. ergocalciferol, vitamin D2, 50 mcg (2,000 unit) Tablet Take 2,000 Units by mouth. Ventolin HFA 90 mcg/actuation HFA Aerosol Inhaler INHALE 2 PUFFS BY MOUTH EVERY 6 HOURS NEEDED FOR SHORTNESS OF BREATH OR WHEEZING ATENOLOL ORAL metroNIDAZOLE (Flagyl) 500 mg tablet Take 500 mg by mouth 2 times daily. omeprazole (PriLOSEC) [address] capsule Take 20 mg by mouth Twice daily. ondansetron ODT (Zofran-ODT) 4 mg disintegrating tablet DISSOLVE 1 TABLET ON THE TONGUE EVERY 6 TO 8 HOURS NEEDED FOR NAUSEA mometasone (ELOCON) 0.1 % ointment 1 Appl(s), Top, 1-2X/day prn FLUTICASONE PROPIONATE (FLOVENT HFA INHL) PIRBUTEROL ACETATE (MAXAIR AUTOHALER INHL) PHYSICAL EXAM: Blood pressure (!) 149/95, pulse 80, temperature 36.4 ??C (97.5 ??F), temperature source Temporal, resp. rate 20, height 163.8 cm (5' 4.5), weight 78.5 kg (173 lb), SpO2 99 %. GEN: Alert, cooperative. Pleasant. In NAD MP I ASA II HEENT: No oropharyngeal lesions. Neck supple. No masses. Thyroid symmetric LUNGS: CTAB CARD: RRR without m/g/r RECENT LABS No results found for this or any previous visit (from the past 24 hour(s)). ASSESSMENT AND PLAN Maureen Amandeep Thomas is a 83 y.o. y/o who presents for endoscopic evaluation. Risks extensively discussed including bleeding, infection, reaction to anesthesia, perforation, pancreatitis (if applicable), bile duct injury (if applicable), missing a cancer (if applicable) and/or other unforseen complic ation. Consent signed and patient well informed of the risks of the procedure. documented in this encounter Plan of Treatment Not on file documented as of this encounter Procedures Procedure Name Priority Date/Time Associated Diagnosis Comments SPECIMEN TO PATHOLOGY Routine 03/29/2023 10:17 AM EDT SURGICAL PATHOLOGY REPORT Routine 03/29/2023 10:16 AM EDT Endoscopic Us Exam, Esoph ([id number]) 03/29/2023 9:53 AM EDT Postprandial RUQ pain UPPER EUS-ENDOSCOPIC ULTRASOUND Routine 03/29/2023 9:21 AM EDT documented in this encounter Results * Specimen to Pathology (03/29/2023 10:17 AM EDT) AP Specimen 03/29/2023 10:1 7 AM EDT 03/29/2023 10:17 AM EDT Narrative [facility] - 03/29/2023 10:17 AM EDT Specimen requisition ordered. ??Separate Pathology report to follow Campos Nieto MD PATHOLOGY/CYTOLOGY ORDERABLES [facility] [place] [address] * Surgical Pathology Report (03/29/2023 10:16 AM EDT) Final Diagnosis [id number] ? Location: 4T; EA07; A The signing pathologist has (i) examined the relevant preparation(s) for the specimen(s) and (ii) rendered or confirmed the diagnosis(es). . 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 - ??No goblet cell metaplasia is seen. Electronically signed by: ?Marino GIPSON, Garrett Tsang Verified: ??04/06/2023 9:07 ?? Pathologist Performed at: ??-[facility] Dept. of Pathology, [place] [address] Supervisor Fiber Locking: Garrett Pichardo MD, FCAP, ??CLIA Certificate: [id number] SPECIMEN(S) SUBMITTED A - GE Junction, biopsy (Multiple) CLINICAL INFORMATION 83 year-old female, dyspepsia SPECIMEN PROCESSING A - Labeled/Fixativ e: GE junction, formalin. Quantity/Size: Four, ranging from 0.3-0.5 cm. Tissue Description: Soft, stuart-pink tissues. Sections/Proces sing: Submitted in toto ??in 1 cassette labeled A1. ??sdy 04/06/2023 9:07 AM EDT [facility] GI Biopsy 03/29/2023 10:1 6 AM EDT 03/29/2023 10:16 AM EDT Campos Nieto MD PATHOLOGY/CYTOLOGY ORDERABLES [facility] [address] [place] [address] * UPPER EUS-ENDOSCOPIC ULTRASOUND (03/29/2023 9:21 AM EDT) UPPER ENDOSCOPIC ULTRASOUND [facility] Endoscopy Procedure Date: 03/29/2023 9:21 AM ? Patient Name: Maureen Thomas ? Date of : 1940 ? Age: 83 ? Order #: [id number] ? Instrument Name: [id number] ? Procedure: ? Upper EUS Indications: ? Abdominal pain in the right upper ? quadrant Providers: ? Campos Nieto MD, Daphnie Dumont ? Julia Weldon MD: ?Campos Lopes MD Medicines: ? Monitored Anesthesia Care Complications: ? No immediate complications. Procedure: ? Pre-Anesthesia Assessment: ? - Prior to the procedure, a History ? and Physical was performed, and ? patient medications and allergies ? were reviewed. The patient is ? competent. The risks and benefits ? of the procedure and the sedation ? options and risks were discussed ? with the patient. All questions ? were answered and informed consent ? was obtained. Patient ? identification and proposed ? procedure were verified by the ? physician in the pre-procedure ? area. Mental Status Examination: ? alert and oriented. Airway ? Examination: normal oropharyngeal ? airway and neck mobility. ? Respiratory Examination: clear to ? auscultation. CV Examination: ? normal. Prophylactic Antibiotics: ? The patient does not require ? prophylactic antibiotics. Prior ? Anticoagulants: The patient has ? taken no anticoagulant or ? antiplatelet agents. ASA Grade ? Assessment: II - A patient with ? mild systemic disease. After ? reviewing the risks and benefits, ? the patient was deemed in ? satisfactory condition to undergo ? the procedure. The anesthesia plan ? was to use monitored anesthesia ? care (MAC). Immediately prior to ? administration of medications, the ? patient was re-assessed for ? adequacy to receive sedatives. The ? heart rate, respiratory rate, ? oxygen saturations, blood pressure, ? adequacy of pulmonary ventilation, ? and response to care were monitored ? throughout the procedure. The ? physical status of the patient was ? re-assessed after the procedure. ? The procedure, indications, ? benefits, risks and alternatives ? were explained to the patient. ? Specifically discussed were ? potential complications including, ? but not limited to, bleeding, ? perforation, infection, missing a ? cancer, and adverse medication ? reactions. The Endoscope was ? introduced through the mouth, and ? advanced to the third part of ? duodenum. The upper EUS was ? accomplished without difficulty. ? The patient tolerated the procedure ? well. ? Findings: ? ENDOSCOPIC FINDING: : ? The examined esophagus was endoscopically normal with ? the exception of LA Class A esophagitis distally at ? the GE junction. The GE junction was at 39 cm. ? Multiple biopsies were taken with a cold forceps of ? the GE junction.. ? The entire examined stomach was endoscopically normal ? with the exception of a 15 mm SM nodule in the ? stomach. ? The examined duodenum was endoscopically normal. ? There was no ampullary pathology. ? ENDOSONOGRAPHIC FINDING: : ? There was no sign of significant endosonographic ? abnormality in the esophagus, duodenum or celiac ? axis. The nodule in the stomach was hyperechoic ? measuring 16 mm and was consistent with a lipoma. ? There was no sign of significant endosonographic ? abnormality in the ampulla. Specifically, the CBD and ? PD tapered normally to the stomach. The CBD was 3 mm ? in diameter and contained no stones. ? There was no sign of significant endosonographic ? abnormality in the left lobe of the liver. ? There was no evidence of pancreatic pathology. ? Specifically, there was no evidence of inflammatory ? changes present. The main PD was 1.2 mm in the head ? and tapered normally to the tail. ? No lymphadenopathy seen. ? Moderate Sedation: ? Not applicable - See Anesthesia documentation Impression: ?- GE junction inflammatory changes ? -s/p bx ? 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 - Consider increase in PPI ? Procedure Code(s): ? --- Professional --- ? 54382, Esophagogastroduod enoscopy, ? flexible, transoral; with ? endoscopic ultrasound examination, ? including the esophagus, stomach, ? and either the duodenum or a ? surgically altered stomach where ? the jejunum is examined distal to ? the anastomosis CPT copyright 2020 [employer]. All rights reserved. The codes documented in this report are preliminary and upon ems helicopter pilot review may be revised to meet current compliance requirements. Attending Participation: ? I personally performed the entire procedure. ? ___ Campos Nieto MD 03/29/2023 10:25:19 AM This report has been signed electronically. Number of Addenda: 0 Note Initiated On: 03/29/2023 9:21 AM PROVATION 03/29/2023 9:21 AM EDT Campos Lopes MD GENERAL SURGICAL ORD ERABLES [employer] documented in this encounter Visit Diagnoses Not on filedocumented in this encounter Administered Medications Inactive Administered Medications - up to 3 most recent administrations Medication Order MAR Action Action Date Dose Rate Site lactated ringers infusion 100 mL/hr, Intravenous, CONTINUOUS, Starting on Tue03/29/23 at 0945, Until Tue03/29/23 at 1106, Endoscopy (Day of Procedure) Restarted 03/29/2023 9:50 AM EDT New Bag 03/29/2023 9:25 AM EDT 100 mL/hr 100 mL/hr documented in this encounter Active and Recently Administered Medications Times are shown in EDT. Continuous Medication Order 03/27/2023 03/28/2023 03/29/2023 lactated ringers infusion (CANCELED) 100 mL/hr, Intravenous, CONTINUOUS, Starting on Tue03/29/23 at 0945, Until Tue03/29/23 at 1106, Endoscopy (Day of Procedure) 0925 (New Bag - Prov ider: Lili Davalos RN)0949 (Paused - Provider: Mumtaz Garcia CRNA - Comment: Switch to gravity)0950 (Restarted - Provider: Mumtaz Garcia CRNA)1025 (Anesthesia Volume Adjustment - Provider: Mumtaz Garcia CRNA) documented in this encounter Care Teams Perfect Bind Machine Operator Relationship Specialty Start Date End Date Campos Lopes MD [address] [place] [address] PCP - General 09/01/10 01/02/24 documented as of this encounter
--- OUTSIDE RECORDS SUMMARY | 2024-10-09 11:25 | XMS_ITS | Encounter Summary ---
Author Organization [facility] Address [facility] [place] [address] Care Team Providers Care Retail Loss Prevention Investigator Name Role Phone Rosario Bahena MD Primary Care Provider [phone] Encounter Details Date Type Department Care Team (Late st Contact Info) Description 06/25/2008 Orders Only Obstetrics [place] [address] Adolfo Nicole MD [facility] DR OBSTETRICS [place] [address] Social History Tobacco Use Types Packs/Day Years Used Date Smoking Tobacco: Never Assessed Sex and Gender Information Value Date Recorded Sex Assigned at Not on file Gender Identity Not on file Sexual Orientation Not on file documented as of this encounter Plan of Treatment Not on file documented as of this encounter Procedures Procedure Name Priority Date/Time Associated Diagnosis Comments SURGICAL PATHOLOGY REPORT Routine 06/25/2008 2:41 PM EDT documented in this encounter Results * Surgical Pathology Report (06/25/2008 2:41 PM EDT) Surgical Pathology Report [id number] ? Location: 5L The signing pathologist has (i) examined the relevant preparation(s) for the specimen(s) and (ii) rendered or confirmed the diagnosis(es). . ?Pathology Surgical Pathology Final Report Clinical Information Specimen Submitted: A - Vulvar bx Clinical History: Not provided Clinical Diagnosis: R/O lichen sclerosus/planus Gross Description Labeled/Fixative : ? Labeled with the patient's name and medical record ?number, formalin. Qty/Size/Weight: ?Single punch, 0.3 cm, stuart to garcia-white. Sections/Process ing: ??(T1) ??aje/SHB Microscopic Description Special stains are performed. ?? Block ? Stain ?Result ( Positive / Negative ) ??A1 ?PAS/F ? Negative Diagnosis Vulvar biopsy: ?Acanthosis with ??superficial perivascular lymphocytic infiltrate with occasional eosinophils (see Comment). CR-0 06/26/08 SY 06/27/08 Verified by: ? Mika GIPSON, PhD, Aaron ?Dermatopatholo gist ?(Electronic Signature) The attending pathologist whose signature appears on this report has reviewed all diagnostic slides and has edited the gross and/or microscopic portion of the report in rendering the final pathologic diagnosis. Comment Multiple deeper levels have been examined. No fungi are seen in PAS-reacted sections. The findings are nonspecific. Diagnostic features of lichen sclerosus and lichen planus are not seen. Follow up is recommended with re-biopsy if there is persistent or recurrent lesion as clinically indicated. RENETTA DAVIS 06/25/2008 2:41 PM EDT Adolfo Nicole MD PATHOLOGY/CYTOLOGY O RDERABLES RENETTA DAVIS documented in this encounter Visit Diagnoses Not on filedocumented in this encounter Care Teams Retail Loss Prevention Investigator Relationship Specialty Start Date End Date Rosario Bahena MD [address] [place] [address] PCP - General Family Medicine 01/03/24 documented as of this encounter
--- OUTSIDE RECORDS SUMMARY | 2024-10-09 11:25 | XMS_ITS | Encounter Summary ---
[place] [address] Care Team Providers Care Branch Billing Payroll Clerk Name Role Phone Campos Lopes MD Primary Care Provider [phone] Reason for Referral * Consultation (Routine) - Closed Specialty Diagnoses / Procedures Referred By Lynnette osman Referred To Contact Urology Diagnoses Chronic interstitial cystitis Chronic interstitial cystitis Campos Lopes MD [address] [place] [address] [facility] [place] [address] Referral ID Status Reason Start Date Expiration Date V isits Requested Visits Authorized [id number] Closed Consult, Test & Treat PCP Updated and/or Approved 03/28/2023 03/27/2024 6 6 Encounter Details Date Type Department Care Team (Latest Contact Info) Description 03/28/2023 Transcribe Orders eDH Incoming Referrals [phone] Campos Lopes MD [address] [place] [address] Chronic interstitial cystitis Social History Tobacco Use Types Packs/Day Years Used Date Smoking Tobacco: Never Assessed Sex and Gender Information Value Date Recorded Sex Assigned at Not on file Gender Identity Not on file Sexual Orientation Not on file documented as of this encounter Plan of Treatment Scheduled Referrals Name Type Priority Associated Diagnoses Orde r Schedule Referral to Urology Outpatient Referral Routine Chronic interstitial cystitis Ordered: 03/28/2023 documented as of this encounter Visit Diagnoses Diagnosis Chronic interstitial cystitis documented in this encounter Care Teams Branch Billing Payroll Clerk Relationship Specialty Start Date End Date Campos Lopes MD [address] [place] [address] PCP - General 09/01/10 01/02/24 documented as of this encounter
--- OUTSIDE RECORDS SUMMARY | 2024-10-09 11:25 | XMS_ITS | Encounter Summary ---
Author Organization [facility] [place] [address] Care Team Providers Care Mail Processing Machine Operator Name Role Phone Campos Lopes MD Primary Care Provider [phone] Encounter Details Date Type Department Care Team (Late st Contact Info) Description 03/16/2013 Ancillary Procedure Radiology Library at [facility] [place] [address] Campos Lopes MD [address] [place], [place] [address] Social History Tobacco Use Types Packs/Day Years [...] Associated Diagnosis Comments FILM LIBRARY STORAGE ONLY ULTRASOUND STUDY Routine 03/16/2013 12:00 AM EDT documented in this encounter Results * Film Library- Storage Only Ultrasound Study (03/16/2013 12:00 AM EDT) Narrative [facility] - 01/13/2023 11:00 AM EDT This exam is auto-finalizing. It's purpose is for storage only. Campos Lopes MD G FILM LIBRARY ORD ERABLES [place], [place] documented in this encounter Visit Diagnoses Not on filedocumented in this encounter Care Teams Mail Processing Machine Operator Relationship Specialty Start Date End Date Campos Lopes MD [address] [place] [address] PCP - General 09/01/10 01/02/24 documented as of this encounter
--- OUTSIDE RECORDS SUMMARY | 2024-10-09 11:25 | XMS_ITS | Encounter Summary ---
Author Organization [facility] [place] [address] Care Team Providers Care Ditcher Operator Name Role Phone Campos Lopes MD Primary Care Provider [phone] Encounter Details Date Type Department Care Team ([facility] st Contact Info) Description 08/01/2020 Ancillary Procedure Radiology Library at [facility] [address] [place] [phone] Campos Lopes MD [address] [place], [place] [address] Social History Tobacco Use Types Packs/Day Years [...] Diagnosis Comments FILM LIBRARY STORAGE ONLY CT ABDOMEN AND PELVIS Routine 08/01/2020 12:00 AM EDT documented in this encounter Results * Film Library- Storage Only CT Abdomen & Pelvis (08/01/2020 12:00 AM EDT) Narrative [facility] - 01/13/2023 9:23 AM EDT This exam is auto-finalizing. It's purpose is for storage only. Campos Lopes MD IMG FILM LIBRARY ORD ERABLES [place], [place] documented in this encounter Visit Diagnoses Not on filedocumented in this encounter Care Teams Ditcher Operator Relationship Specialty Start Date End Date Campos Lopes MD [address] [place] [address] PCP - General 09/01/10 01/02/24 documented as of this encounter
--- OUTSIDE RECORDS SUMMARY | 2024-10-09 11:25 | XMS_ITS | Encounter Summary ---
Author Organization [facility] [place] [address] Care Team Providers Care University Controller Name Role Phone Campos Lopes MD Primary Care Provider [phone] Encounter Details Date Type Department Care Team ([facility] st Contact Info) Description 02/29/2020 Ancillary Procedure Radiology Library at [facility] [address] [place] [phone] Campos Lopes MD [address] [place], [place] [address] Social History Tobacco Use Types Packs/Day Years [...] STORAGE ONLY CT ABDOMEN AND PELVIS Routine 02/29/2020 12:00 AM EDT documented in this encounter Results * Film Library- Storage Only CT Abdomen & Pelvis (02/29/2020 12:00 AM EDT) Narrative [facility] - 01/13/2023 11:02 AM EDT This exam is auto-finalizing. It's purpose is for storage only. Campos Lopes MD IMG FILM LIBRARY ORD ERABLES [place], [place] documented in this encounter Visit Diagnoses Not on filedocumented in this encounter Care Teams University Controller Relationship Specialty Start Date End Date Campos Lopes MD [address] [place] [address] PCP - General 09/01/10 01/02/24 documented as of this encounter
--- OUTSIDE RECORDS SUMMARY | 2024-10-09 11:25 | XMS_ITS | Encounter Summary ---
Author Organization [facility] [place] [address] Care Team Providers Care Customs Officer Name Role Phone Campos Lopes MD Primary Care Provider [phone] Encounter Details Date Type Department Care Team (Late st Contact Info) Description 11/16/2022 Ancillary Procedure Radiology Library at [facility] [place] [phone] Campos Lopes MD [address] [place], [place] [address] Social History Tobacco Use Types Packs/Day Years [...] FILM LIBRARY STORAGE ONLY CT CHEST Routine 11/16/2022 12:00 AM EST documented in this encounter Results * Film Library- Storage Only CT Chest (11/16/2022 12:00 AM EST) Narrative [facility] - 01/13/2023 9:23 AM EDT This exam is auto-finalizing. It's purpose is for storage only. Campos Lopes MD IMG FILM LIBRARY ORD ERABLES [place], [place] documented in this encounter Visit Diagnoses Not on filedocumented in this encounter Care Teams Customs Officer Relationship Specialty Start Date End Date Campos Lopes MD [address] [place] [address] PCP - General 09/01/10 01/02/24 documented as of this encounter
--- OUTSIDE RECORDS SUMMARY | 2024-10-09 11:25 | XMS_ITS | Encounter Summary ---
Author Organization [facility] [place] [address] Care Team Providers Care Housekeeper And Laundry Assistant Name Role Phone Campos Lopes MD Primary Care Provider [phone] Encounter Details Date Type Department Care Team ([facility] st Contact Info) Description 08/18/2022 Ancillary Procedure Radiology Library at [facility] [place] [phone] Campos Lopes MD [address] [place], [place] [address] Social History Tobacco Use Types Packs/Day Years [...] Associated Diagnosis Comments FILM LIBRARY STORAGE ONLY MR ABDOMEN Routine 08/18/2022 12:00 AM EST documented in this encounter Results * Film Library- Storage Only MR Abdomen (08/18/2022 12:00 AM EST) Narrative [facility] - 01/13/2023 10:47 AM EDT This exam is auto-finalizing. It's purpose is for storage only. Campos Lopes MD IMG FILM LIBRARY ORD ERABLES [place], [place] documented in this encounter Visit Diagnoses Not on filedocumented in this encounter Care Teams Housekeeper And Laundry Assistant Relationship Specialty Start Date End Date Campos Lopes MD [address] [place] [address] PCP - General 09/01/10 01/02/24 documented as of this encounter
--- OUTSIDE RECORDS SUMMARY | 2024-10-09 11:25 | XMS_ITS | Encounter Summary ---
Author Organization [facility] Address [facility] [place] [address] Care Team Providers Care Genetic Physician Name Role Phone Campos Lopes MD Primary Care Provider [phone] Encounter Details Date Type Department Care Team ([facility] st Contact Info) Description 03/29/2023 9:45 AM EDT - 03/29/2023 10:45 AM EDT Surgery [place] [address] Campos Nieto MD [facility] [place] [address] UPPER EUS- ENDOSCOPIC ULTRASOUND (WRVU 3.47) Social History Tobacco Use Types Packs/Day Years [...] Sign Reading Time Taken Comments Blood Pressure 127/57 03/29/2023 10:40 AM EDT Pulse 80 03/29/2023 9:20 AM EDT Temperature 36.4 ??C (97.5 ??F) 03/29/2023 9:20 AM ED T Respiratory Rate 16 03/29/2023 10:40 AM EDT Oxygen Saturation 97% 03/29/2023 10:40 AM EDT Inhaled Oxygen Concentration - - Weight 78.5 kg (173 lb) 03/29/2023 9:20 AM EDT Height 163.8 cm (5' 4.5) 03/29/2023 9:20 AM EDT Body Mass Index 29.24 03/29/2023 9:20 AM EDT documented in this encounter Discharge Instructions * Discharge Instructions* Moris Sykes, RN - 03/29/2023 10:29 AM EDT Endoscopic [...] the day after the procedure, use an zdrq-zlt-azpcavy spray to numb your throat. Sucking on [...] occurs, please contact your Doctor. Please call [phone] before 8pm Mon-Fri with problems, questions or concerns. If you call after 8pm or on weekends, call the Hospital at [phone] and ask to speak to the Aerosol Supervisor digital content marketing manager and the coating machine operator will contact that person for you. When should you call for help? Call 502 anytime you think you may need emergency [...] any problems. Where can you learn more? [facility] View your After Visit Summary and more online at [email or web address] If you would like to provide feedback about your hospital experience, please call the Office of Patient and Family Relations at . If you have received this After Visit Summary in error, please immediately return it in person to the department, or notify the [facility] Privacy Office by calling toll free at between the hours of 8AM and 5PM to arrange for our retrieval of the documents at no cost to you. Content Version: 12.2 ?? [phone] Lala. Care instructions adapted under license by [facility]. If you have questions about a medical condition or this instruction, always ask your healthcare professional. Lala disclaims any warranty or liability for your [...] this patient. HISTORY OF PRESENT ILLNESS Maureen Bernstein William is a 83 y.o. y/o who presents [...] past 24 hour(s)). ASSESSMENT AND PLAN Maureen Bernstein Sophieliliyatrisha is a 83 y.o. y/o who presents [...] 10:16 AM EDT Endoscopic Us Exam, Esoph ([id number]) 03/29/2023 9:53 AM EDT Postprandial RUQ pain UPPER EUS-ENDOSCOPIC ULTRASOUND Routine 03/29/2023 9:21 AM EDT documented in this encounter Results * Specimen to Pathology (03/29/2023 10:17 AM EDT) AP Specimen 03/29/2023 10:1 7 AM EDT 03/29/2023 10:17 AM EDT Narrative [facility] - 03/29/2023 10:17 AM EDT Specimen requisition ordered. ??Separate Pathology report to follow Campos Nieto MD PATHOLOGY/CYTOLOGY ORDERABLES Performing Organization Address City/State/[facility] Co de Phone Number [facility] [place] [address] * Surgical Pathology Report (03/29/2023 10:16 AM EDT) Final Diagnosis [id number] ? Location: 4T; EA07; A The signing pathologist has (i) examined the relevant preparation(s) for the specimen(s) and (ii) rendered or confirmed the diagnosis(es). . 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 - ??No goblet cell metaplasia is seen. Electronically signed by: ?Marino GIPSON, Garrett Tsang Verified: ??04/06/2023 9:07 ?? Pathologist Performed at: ??-[facility] Dept. of Pathology, [place] [address] Plant Operator: Garrett Pichardo MD, [facility], ??CLIA Certificate: [id number] SPECIMEN(S) SUBMITTED A - GE Junction, biopsy (Multiple) CLINICAL INFORMATION 83 year-old female, dyspepsia SPECIMEN PROCESSING A - Labeled/Fixativ e: GE junction, formalin. Quantity/Size: Four, ranging from 0.3-0.5 cm. Tissue Description: Soft, stuart-pink tissues. Sections/Proces sing: Submitted in toto ??in 1 cassette labeled A1. ??sdy 04/06/2023 9:07 AM EDT [facility] GI Biopsy 03/29/2023 10:1 6 AM EDT 03/29/2023 10:16 AM EDT Campos Nieto MD PATHOLOGY/CYTOLOGY ORDERABLES [facility] [address] [place] [address] * UPPER EUS-ENDOSCOPIC ULTRASOUND (03/29/2023 9:21 AM EDT) UPPER ENDOSCOPIC ULTRASOUND [facility] Endoscopy Procedure Date: 03/29/2023 9:21 AM ? Patient Name: Maureen Thomas ? Date of : 1940 ? Age: 83 ? Order #: [id number] ? Instrument Name: [id number] ? Procedure: ? Upper EUS Indications: ? [...] Procedure Code(s): ? --- Professional --- ? 87027, Esophagogastroduod enoscopy, ? flexible, transoral; with ? endoscopic ultrasound examination, ? including the esophagus, stomach, ? and either the duodenum or a ? surgically altered stomach where ? the jejunum is examined distal to ? the anastomosis CPT copyright 2020 [employer]. All rights reserved. The codes documented in this report are preliminary and upon auditing coder review may be revised to meet current compliance requirements. Attending Participation: ? I personally performed the entire procedure. ? ___ Campos Nieto MD 03/29/2023 10:25:19 AM This report has been signed electronically. Number of Addenda: 0 Note Initiated On: 03/29/2023 9:21 AM PROVATION 03/29/2023 9:21 AM EDT Campos Lopes MD GENERAL SURGICAL ORD ERABLES [employer]ATION documented in this encounter Visit Diagnoses Diagnosis Postprandial RUQ pain Abdominal pain, right upper quadrant documented in this encounter Administered Medications Inactive [...] (CANCELED) 100 mL/hr, Intravenous, CONTINUOUS, Starting on 03/29/23 at 0945, Until Tu03/29/23 at 1106, Endoscopy (Day of Procedure) 0925 (New Bag - Prov ider: Lili Davalos RN)0949 (Paused - Provider: Mumtaz Garcia CRNA - Comment: Switch to gravity)7766 (Restarted - Provider: Mumtaz Garcia CRNA)1025 (Anesthesia Volume Adjustment - Provider: Mumtaz Garcia CRNA) documented in this encounter Care Teams Genetic Physician Relationship Specialty Start Date End Date Campos Lopes MD [address] [place] [address] PCP - General 09/01/10 01/02/24 documented as of this encounter
--- OUTSIDE RECORDS SUMMARY | 2024-10-09 11:25 | XMS_ITS | Clinical Summary ---
Author Organization [facility] Address [facility] [place] [address] Care Team Providers Care Flamer Sealer Name Role Phone Rosario Bahena MD Primary Care Provider [phone] Allergies Active Allergy Reactions Criticality Noted Date Comments Iodine And Iodide Containing Products Medium CIS - Hives Quinolones 03/29/2023 Medications Medication Sig Dispensed Refills Start Date End Date Status ATENOLOL ORAL 07/15/2008 Active FLUTICASONE PROPIONATE (FLOVENT HFA INHL) 07/15/2008 Active PIRBUTEROL ACETATE (MAXAIR AUTOHALER INHL) 07/15/2008 A ctive mometasone (ELOCON) 0.1 % ointment 1 Appl(s), Top, 1-2X/day prn 07/22/2008 Active magnesium oxide (Mag-Ox) 400 mg (241.3 mg magnesium) Tablet Take 400 mg by mouth. Active metroNIDAZOLE (Flagyl) 500 mg tablet Take 500 mg by mouth 2 times daily. 02/14/2023 Active omeprazole (PriLOSEC) [address] capsule Take 20 mg by mouth Twice daily. Active ondansetron ODT (Zofran-ODT) 4 mg disintegrating tablet DISSOLVE 1 TABLET ON THE TONGUE EVERY 6 TO 8 HOURS NEEDED FOR NAUSEA 02/14/2023 Active Advair HFA 230-21 mcg/actuation HFA Aerosol Inhaler Inhale 2 puffs into the lungs 2 times daily. 12/29/2022 Active ergocalciferol, vitamin D2, 50 mcg (2,000 unit) Tablet Take 2,000 Units by mouth. Active Ventolin HFA 90 mcg/actuation HFA Aerosol Inhaler INHALE 2 PUFFS BY MOUTH EVERY 6 HOURS NEEDED FOR SHORTNESS OF BREATH OR WHEEZING 02/07/2023 Active sulfamethoxazole-trimet hoprim (Bactrim) 400-80 mg tablet Take 1 tablet by mouth 2 times daily. Active Social History Tobacco Use Types Packs/Day Years [...] on file Sexual Orientation Not on file Last Filed [...] Mass Index 29.24 03/29/2023 9:20 AM EDT Plan of Treatment Health Maintenance Due Date Last Done Comments Tetanus/Diphtheria/Pertussis Vaccines (1 - Tdap) 1961 Pneumoccocal Vaccine: 65+ (1 of 1 - PCV) 02/03/1992 Zoster vaccine (1 of 2) 02/03/1992 Advance Directive 1997 Bone Density Scan 2007 RSV Vaccine (1 - 1-dose 75+ series) 2017 Covid-19 Vaccine ( - 2023-2 5 season) 2024 01/28/2022, 08/18/2021, 01/05/2021, Additional history exists Influenza (Flu) vaccine (1 o f 1 - Influenza standard series) 06/10/2024 Care Teams Flamer Sealer Relationship Specialty Start Date End Date Rosario Bahena MD [address] [place] [address] PCP - General Family Medicine 01/03/24
--- OUTSIDE RECORDS SUMMARY | 2024-10-09 11:25 | XMS_ITS | Patient Health Record ---
Author Organization [facility] Address [address] [place] [address] Care Team Providers Care Vice President Process Name Role Phone Campos Lopes MD Primary Care Provider Unavail able Alcira GIPSON, Dixon Unavailable Allergies Allergen (clinical drug ingredient) Drug/Non Drug Allergy documented on EMR Reaction Allergy Type Onset Date Status EPINEPHrine Unknown Drug Allergy Activ e Iodine Unknown Drug Allergy Active Reason For Referral No Information Medications Medication SIG (Take, Route, Frequency, Duration) Notes Start Date End Date Status Singulair Active Vitamin D Active Atenolol 25 MG 1 tablet Orally Once a day Active Estrace 0.1 MG/GM Vaginal Ac tive ProAir HFA 108 (90 Base) MCG/ACT 2 puffs as needed Inhalation every 4 hrs Active Social History Tobacco Use: Social History Observation Description Date Details (start date - stop date) Former Smoker NA - NA Smoking Question Answer Notes Are you a: former smoker How long has it been since you last smoked? 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 (86454757) Hyperthyroid (242.90) Active confirmed Problem Vaginal discharge (550998047) Vaginal discharge (623.5) Active confirmed Plan Of Treatment No Information Insurance Providers Payer Name Payer Address Payer Phone Subscriber Number Group Number Insured Name Patient Relationship to Insured Coverage Start Date Coverage End Date MEDICARE [place] [address] [place] [id number] Maureen Miller Self - patient is the insured [place] [address] [place] [address] [phone] [id number] Milton reddy Maureen Self - patient is the insured Medical (General) History Medical History History ICD Code , 1 adopted child Hypertension Hyperthyroid asthma
--- OUTSIDE RECORDS SUMMARY | 2024-10-09 11:25 | XMS_ITS | Encounter Summary ---
[facility] [place] [address] Care Team Providers Care Semi Driver Name Role Phone Campos Lopes MD Primary Care Provider [phone] Encounter Details Date Type Department Care Team ([facility] st Contact Info) Description 03/22/2023 Telephone [place] [address] Kiana Quiles Social History Tobacco Use Types Packs/Day Years Used Date Smoking Tobacco: Never Assessed Sex and Gender Information Value Date Recorded Sex Assigned at Not on file Gender Identity Not on file Sexual Orientation Not on file documented as of this encounter Miscellaneous Notes * Telephone Encounter - Kiana Quiles - 03/22/2023 12:14 PM EDT Patient called as she wants a call from before her procedure on 03/29. Patient is aware that he will try to get in contact with her but can always talk to her the day of the procedure as well. Patient can be reached at [phone] documented in this encounter Plan of Treatment Not on file documented as of this encounter Visit Diagnoses Not on filedocumented in this encounter Care Teams Semi Driver Relationship Specialty Start Date End Date Campos Lopes MD [address] [place] [address] PCP - General 09/01/10 01/02/24 documented as of this encounter
--- OUTSIDE RECORDS SUMMARY | 2024-10-09 11:25 | XMS_ITS | Encounter Summary ---
Author Organization [facility] [place] [address] Care Team Providers Care Supervisor Of Communications Name Role Phone Campos Lopes MD Primary Care Provider [phone] Encounter Details Date Type Department Care Team ([facility] st Contact Info) Description 03/06/2020 Ancillary Procedure Radiology Library at [facility] [place] [address] Campos Lopes MD [address] [place], [place] [address] Social History Tobacco Use Types Packs/Day Years [...] FILM LIBRARY STORAGE ONLY ULTRASOUND STUDY Routine 03/06/2020 12:00 AM EDT documented in this encounter Results * Film Library- Storage Only Ultrasound Study (03/06/2020 12:00 AM EDT) Narrative [facility] - 01/13/2023 10:52 AM EDT This exam is auto-finalizing. It's purpose is for storage only. Campos Lopes MD G FILM LIBRARY ORD ERABLES [place], [place] documented in this encounter Visit Diagnoses Not on filedocumented in this encounter Care Teams Supervisor Of Communications Relationship Specialty Start Date End Date Campos Lopes MD [address] [place] [address] PCP - General 09/01/10 01/02/24 documented as of this encounter
--- OUTSIDE RECORDS SUMMARY | 2024-10-09 11:25 | XMS_ITS | Encounter Summary ---
Author Organization Formerly [facility] Address [facility] [place] [address] Care Team Providers Care Engineering Tech Name Role Phone Campos Lopes MD Primary Care Provider [phone] Encounter Details Date Type Department Care Team ([facility] st Contact Info) Description 03/29/2023 9:50 AM EDT Anesthesia [place] [id number] Adolfo Houser MD [facility] [place] [address] Anesthesia Record Procedure Summary Procedure Name Responsible Anesthesiologist Anesthesia Start Time Anesthesia Stop Time UPPER EUS- ENDOSCOPIC ULTRASOUND (WRVU 3.47) (Trunk) Adolfo Houser MD 03/29/23 0950 03/29/23 1025 Events Date Time Event Comment 03/29/2023 0936 0950 Start 0952 AN Verify 0952 An Start Data 0957 An Induction 0958 Anesthesia Ready 1020 an stop data 1025 Recovery or ICU Handoff Keke ent care was transferred to the destination unit staff after review of the patient's medical history, current anesthetic/surgical status and plan, according to the Provider Handoff Checklist. 1025 Stop Meds Name Total Propofol 90 mg Propofol INF 176.63 mg Dexmedetomidine 16 mcg lactated ringers infusion 200 mL * Agents Name O2 * Blood No blood administrations on file. Lines, Drains, and Airways Type Details Placement Removal (RETIRED) Peripheral IV Line - Single Lumen 03/29/23; 0919; metacarpal vein (top of hand), right; 22 gauge; Jimmy Dubois; distraction; 03/29/23; 1105 03/29/23 0919 by Melina Dubois RN 03/29/23 1105 by Moris Sykes RN documented in this encounter Social History [...] on file documented as of this encounter OR Notes * Anesthesia Postprocedure Evaluation - Adolfo Houser MD - 03/29/2023 10:41 AM EDT Department of Anesthesiology Post-procedure Note Patient: Maureen Thomas Procedure Summary Date: 03/29/23 Room / Location: [facility] ENDO 2 / [facility] ENDOSCOPY Anesthesia Start: 949 Anesthesia Stop: 1024 Procedure: UPPER EUS- ENDOSCOPIC ULTRASOUND (WRVU 3.47) (Trunk) Diagnosis: Postprandial RUQ pain (RUQ pain post CCY-- assess for microloithiasis, other source of RUQ pain) Surgeons: Campos Nieto MD Responsible Provider: Adolfo Houser MD Anesthesia Type: MAC ASA Status: 3 All Anesthesia Providers: Anesthesiologist: Adolfo Houser MD FISH HATCHERY SUPERINTENDENT: Mumtaz Garcia CRNA Vitals Value Taken Time BP 88/64 03/29/23 1030 Temp Pulse Resp 16 03/29/23 1030 SpO2 95 % 03/29/23 1041 Pain Level 0 03/29/23 1030 Vitals shown include unvalidated device data. Patient Location: PACU/[facility] Level of Consciousness: Awake and Alert Pain Management: Satisfactory Analgesia PONV: None Cardiovascular Status: At Baseline Respiratory Status: At Baseline Postoperative Fluid Status: Intravascular EUvolemia Possible Anesthetic Complications: NONE apparent at time of evaluation Final Primary Anesthesia Type: MAC (The anesthetic type performed was the same as planned.) Comments: * Anesthesia Preprocedure Evaluation - Adolfo Houser MD - 03/28/2023 3:29 PM EDT Pre-Anesthesia Evaluation for: Maureen Thomas a 83 y.o. female. Procedure(s): UPPER EUS- ENDOSCOPIC ULTRASOUND (WRVU 3.47) There are no problems to display for this patient. No past medical history on file. No past surgical history on file. Social History Tobacco Use ??? Smoking status: Not on file ??? Smokeless tobacco: Not on file Substance Use Topics ??? Alcohol use: Not on file Social History Substance and Sexual Activity Drug Use Not on file Allergies Allergen Reactions ??? Iodine And Iodide Containing Products CIS - Hives Medications: MAR and/or home medications have been reviewed. Physical Exam: Preprocedure Vitals Current as of 03/28/23 1529 No BP, pulse, respiration, SpO2, or temperature recorded. Height: 167.6 cm (5' 6) (02/23/23) Weight: 79.2 kg (174 lb 9.6 oz) (02/23/23) BMI: 28.18 IBW: 59.3 kg (130 lb 10.4 oz) Airway Assessment: Mallampati: II TM distance: >3 FB Neck ROM: full Cardiovascular Assessment: Rhythm: regular system normal Pulmonary Assessment: unlabored breathing pulmonary exam normal Dental Assessment: - normal exam Misc Assessment: IV access: Peripheral line Last Filed Perioperative Cognitive Screening None Anesthesia Plan: ASA 3 MAC, with a(n) intravenous induction 83 yo woman with RUQ pain post CCY for EUS Chart and labs reviewed; patient seen and examined Depression - Hyperthyroidism with upcoming thyroidectomy - Interstitial cystitis/pelvic pain - Atrophic vaginitis/pruritis/recurrent UTI - Asthma/COPD - HTN - HLD Impression/Plan: ASA 3 MAC/IV Propofol sedation possible upgrade to GA/ETT per GI; routine monitors Risks, plans, and procedures discussed with patient who understands and consents; questions and concerns addressed Region - Other Informed Consent: Anesthetic plan and risks discussed with patient. Plan discussed with FISH HATCHERY SUPERINTENDENT. Anesthesia Screening documented in this encounter Plan of Treatment Not on file documented as of this encounter Visit Diagnoses Not on filedocumented in this encounter Administered Medications Inactive Administered Medications - up to 3 most recent administrations Medication Order MAR Action Action Date Dose Rate Site dexmedeTOMIDine (Precedex) (4 mcg/mL) bolus injection (Anesthsia) Intravenous, PRN, Starting on e 03/29/23 at 1006, Until 03/29/23 at 1025, Anesthesia Intra-op, Routine Given 03/29/2023 10:15 AM EDT 8 mcg Given 03/29/2023 10:06 AM EDT 8 mcg lactated ringers infusion 100 mL/hr, Intravenous, CONTINUOUS, Starting on Tue03/29/23 at 0945, Until Tue03/29/23 at 1106, Endoscopy (Day of Procedure) Restarted 03/29/2023 9:50 AM EDT New Bag 03/29/2023 9:25 AM EDT 100 mL/hr 100 mL/hr propofoL (Diprivan) (10 mg/mL) infusion Intravenous, CONTINUOUS PRN, Starting on Tue03/29/23 at 0957, Until e 03/29/23 at 1025, Anesthesia Intra-op, Routine New Bag 03/29/2023 9:57 AM EDT 125 mcg/kg/min 58.875 mL/hr propofoL (Diprivan) 10 mg/mL bolus injection (Anesthesia) Intravenous, PRN, Starting on Tue03/29/23 at 0957, Until e 03/29/23 at 1025, Anesthesia Intra-op Given 03/29/2023 9:57 AM EDT 90 mg documented in this encounter Care Teams Engineering Tech Relationship Specialty Start Date End Date Campos Lopes MD [address] [place] [address] PCP - General 09/01/10 01/02/24 documented as of this encounter
--- OUTSIDE RECORDS SUMMARY | 2024-10-09 11:25 | XMS_ITS | Encounter Summary ---
[place] [address] Care Team Providers Care Cowlman Name Role Phone Campos Lopes MD Primary Care Provider [phone] Reason for Referral * Consultation (Urgent) - Closed Specialty Diagnoses / Procedures Referred By Lynnette t Referred To Contact Gastroenterology Diagnoses RUQ abdominal pain motiltiy- RUQ pain Campos Lopes MD [address] [place] [address] [facility] [address] [place] [phone] Referral ID Status Reason Start Date Expiration Date V isits Requested Visits Authorized [id number] Closed Consult, Test & Treat PCP Updated and/or Approved 01/14/2023 01/14/2024 6 6 Encounter Details Date Type Department Care Team ([facility] st Contact Info) Description 01/14/2023 Transcribe Orders eDH Incoming Referrals [phone] Campos Lopes MD [address] [place] [address] RUQ abdominal pain Social History Tobacco Use Types Packs/Day Years Used Date Smoking Tobacco: Never Assessed Sex and Gender Information Value Date Recorded Sex Assigned at Not on file Gender Identity Not on file Sexual Orientation Not on file documented as of this encounter Plan of Treatment Scheduled Referrals Name Type Priority Associated Diagnoses Order Schedule Referral to Gastroenterology Outpatient Referral Routine RUQ abdominal pain Ordered: 01/14/2023 documented as of this encounter Visit Diagnoses Diagnosis RUQ abdominal pain Abdominal pain, right upper quadrant documented in this encounter Care Teams Cowlman Relationship Specialty Start Date End Date Campos Lopes MD [address] [place] [address] PCP - General 09/01/10 01/02/24 documented as of this encounter
--- OUTSIDE RECORDS SUMMARY | 2024-10-09 11:25 | XMS_ITS | Encounter Summary ---
Author Organization [facility] [place] [address] Care Team Providers Care Associate Professor Of Pathology Name Role Phone Campos Lopes MD Primary Care Provider [phone] Encounter Details Date Type Department Care Team ([facility] st Contact Info) Description 06/18/2022 Ancillary Procedure Radiology Library at [facility] [place] [phone] Campos Lopes MD [address] [place], [place] [address] Social History Tobacco Use Types Packs/Day Years [...] FILM LIBRARY STORAGE ONLY ULTRASOUND STUDY Routine 06/18/2022 12:00 AM EDT documented in this encounter Results * Film Library- Storage Only Ultrasound Study (06/18/2022 12:00 AM EDT) Narrative [facility] - 01/13/2023 10:49 AM EDT This exam is auto-finalizing. It's purpose is for storage only. Campos Lopes MD IMG FILM LIBRARY ORD ERABLES [place], [place] documented in this encounter Visit Diagnoses Not on filedocumented in this encounter Care Teams Associate Professor Of Pathology Relationship Specialty Start Date End Date Campos Lopes MD [address] [place] [address] PCP - General 09/01/10 01/02/24 documented as of this encounter
--- OUTSIDE RECORDS SUMMARY | 2024-10-09 11:25 | XMS_ITS | Encounter Summary ---
Author Organization [facility] [place] [address] Care Team Providers Care Hand Cell Tuber Name Role Phone Campos Lopes MD Primary Care Provider [phone] Encounter Details Date Type Department Care Team (Latest Contact Info) Description 07/26/2019 8:47 PM EDT - 07/26/2019 11:59 PM EDT Hospital [place] [phone] Discharge Disposition: Home Social History Tobacco Use Types Packs/Day Years Used Date Smoking Tobacco: Never Assessed Sex and Gender Information Value Date Recorded Sex Assigned at Not on file Gender Identity Not on file Sexual Orientation Not on file documented as of this encounter Medications at Time of Discharge Medication Sig Dispensed Refills Start Date End Date mometasone (ELOCON) 0.1 % ointment 1 Appl(s), Top, 1-2X/day prn 07/22/2008 ATENOLOL ORAL 07/15/2008 FLUTICASONE PROPIONATE (FLOVENT HFA INHL) 07/15/2008 PIRBUTEROL ACETATE (MAXAIR AUTOHALER INHL) 07/15/2008 documented as of this encounter Plan of Treatment Not on file documented as of this encounter Procedures Procedure Name Priority Date/Time Associated Diagnosis Comments SURGICAL PATHOLOGY REPORT Routine 07/26/2019 1:10 PM EDT documented in this encounter Results * Surgical Pathology Report (07/26/2019 1:10 PM EDT) Final Diagnosis [id number] ? Location: OPW The signing pathologist has (i) examined the relevant preparation(s) for the specimen(s) and (ii) rendered or confirmed the diagnosis(es). . ?Surgical Pathology DIAGNOSIS A - Skin, right upper lid, shave ?? biopsy: - ??Basal cell carcinoma, nodular type, ulcerated, transected at the base and periphery B - Skin, left sorto #1, shave ?? biopsy: - ??Basal cell carcinoma, superficial type, present at the specimen edges - Stasis changes C - Skin, left sorto #2, shave ?? biopsy: - ??Basal cell carcinoma, superficial type, present at the specimen edges - Stasis changes Electronically signed by: ??Carol Thomas MD Verified: ??07/31/2019 ?Dermatopathol ogist Performed at: ??-[facility] Dept. of Pathology, [place], [place] CLINICAL INFORMATION Specimen Submitted: A - Skin, right upper lid, shave (1) B - Skin, left sorto #1, shave (1) C - Skin, left sorto #2, shave (1) Clinical History and Diagnosis: A - 5 mm pearly nodule; BCC B - 5 mm pink plaque; BCC C - 5 mm pink plaque: BCC Referring Identifier: ?(not provided) SPECIMEN PROCESSING A - Labeled/Fixativ e: Right upper lid, formalin. Quantity/Size: ??Single, 0.6 x 0.3 x 0.1 cm. Tissue Description: Shave of stuart-pink, centrally eroded skin. Sections/Proces sing: Inked, bisected and entirely submitted in 1 cassette labeled A1. B - Labeled/Fixativ e: Left sorto #1, formalin. Quantity/Size: ??Single, 0.8 x 0.6 x 0.1 cm. Tissue Description: Shave of stuart-white, scaly skin. Sections/Proces sing: Inked, trisected and entirely submitted in 1 cassette labeled B1. C - Labeled/Fixativ e: Left sorto #2, formalin. Quantity/Size: ??Single, 0.8 x 0.5 x 0.1 cm. Tissue Description: Shave of stuart-white, slightly scaly skin. Sections/Proces sing: Inked, trisected and entirely submitted in 1 cassette labeled C1. ??apb 07/31/2019 3:46 PM EDT [facility] SPECIMEN FROM SKIN / Unknown 07/26/2019 1:10 PM EDT 07/26/2019 1:10 PM EDT SPECIMEN FROM SKIN / Unknown 07/26/2019 1:10 PM EDT 07/26/2019 1:10 PM EDT SPECIMEN FROM SKIN / Unknown 07/26/2019 1:10 PM EDT 07/26/2019 1:10 PM EDT Harriet Fuentes MD PATHOLOGY/CYTOLOGY O RDERABLES [facility] [place] [address] documented in this encounter Visit Diagnoses Not on filedocumented in this encounter Care Teams Hand Cell Tuber Relationship Specialty Start Date End Date Campos Lopes MD [address] [place] [address] PCP - General 09/01/10 01/02/24 documented as of this encounter
--- OUTSIDE RECORDS SUMMARY | 2024-10-09 11:25 | XMS_ITS | Encounter Summary ---
Author Organization [place] [address] Care Team Providers Care Oven Roaster Name Role Phone Campos Lopes MD Primary Care Provider [phone] Encounter Details Date Type Department Care Team (Latest Contact Info) Description 03/09/2016 1:58 PM EDT - 03/09/2016 11:59 PM EDT Hospital [place] [phone] Discharge Disposition: Home Social History Tobacco Use [...] Associated Diagnosis Comments SURGICAL PATHOLOGY REPORT Routine 03/09/2016 12:00 PM EDT documented in this encounter Results * Surgical Pathology Report (03/09/2016 12:00 PM EDT) Final Diagnosis [id number] ?Location: OPW The signing pathologist has (i) examined the relevant preparation(s) for the specimen(s) and (ii) rendered or confirmed the diagnosis(es). . ?Surgical Pathology DIAGNOSIS Skin, left sorto, shave ?? biopsy: - ??BASAL CELL CARCINOMA, extending to the peripheral and deep specimen edges. 03/11/16 DLD 03/11/16 Verified by: ? Moriah GIPSON, Rudy Jones ?Dermatopathol ogist ?(Electronic Signature) The attending pathologist whose signature appears on this report has reviewed all diagnostic slides and has edited the gross and/or microscopic portion of the report in rendering the final pathologic diagnosis. CLINICAL INFORMATION Specimen Submitted: A - Skin, L sorto, shave bx (1) Clinical History: 8 mm pink plaque Clinical Diagnosis: BCC SPECIMEN PROCESSING A - Labeled/Fixativ e: Left sorto, formalin. Quantity/Size: Single, 1.1 x 0.8 x 0.1 cm. Tissue Description: Shave of a stuart-white, crusted skin plaque. Sections/Proces sing: Inked and trisected. (T1) ??sns 03/11/2016 5:02 PM EDT [facility] SPECIMEN FROM SKIN / Unknown 03/09/2016 12:00 PM EDT 03/09/2016 12:00 PM EDT Harriet Fuentes MD PATHOLOGY/CYTOLOGY O RDERACARMELO [facility] [place] [address] documented in this encounter Visit Diagnoses Not on filedocumented in this encounter Care Teams Oven Roaster Relationship Specialty Start Date End Date Campos Lopes MD [address] [place] [address] PCP - General 09/01/10 01/02/24 documented as of this encounter
--- OUTSIDE RECORDS SUMMARY | 2024-10-09 11:25 | XMS_ITS | Encounter Summary ---
Author Organization [facility] [place] [address] Care Team Providers Care Chemical Plant Technical Director Name Role Phone Campos Lopes MD Primary Care Provider [phone] Encounter Details Date Type Department Care Team (Late st Contact Info) Description 03/19/2020 Ancillary Procedure Radiology Library at [facility] [place] [phone] Campos Lopes MD [address] [place], [place] [address] Social History Tobacco Use Types Packs/Day Years [...] Associated Diagnosis Comments FILM LIBRARY STORAGE ONLY NUCLEAR MEDICINE Routine 03/19/2020 12:00 AM EDT documented in this encounter Results * Film Library- Storage Only nuclear medicine (03/19/2020 12:00 AM EDT) Narrative [facility] - 01/13/2023 10:50 AM EDT This exam is auto-finalizing. It's purpose is for storage only. Campos Lopes MD G FILM LIBRARY ORD ERABLES [place], [place] documented in this encounter Visit Diagnoses Not on filedocumented in this encounter Care Teams Chemical Plant Technical Director Relationship Specialty Start Date End Date Campos Lopes MD [address] [place] [address] PCP - General 09/01/10 01/02/24 documented as of this encounter
--- OUTSIDE RECORDS SUMMARY | 2024-10-09 11:25 | XMS_ITS | Encounter Summary ---
Author Organization [facility] [place] [address] Care Team Providers Care Claims Processor Name Role Phone Campos Lopes MD Primary Care Provider [phone] Encounter Details Date Type Department Care Team ([facility] st Contact Info) Description 08/10/2022 Ancillary Procedure Radiology Library at [place] [facility] [place] [phone] Campos Lopes MD [address] [place], [place] [address] Social History Tobacco Use Types Packs/Day Years [...] STORAGE ONLY CT ABDOMEN AND PELVIS Routine 08/10/2022 12:00 AM EDT documented in this encounter Results * Film Library- Storage Only CT Abdomen & Pelvis (08/10/2022 12:00 AM EDT) Narrative [facility] - 01/13/2023 9:24 AM EDT This exam is auto-finalizing. It's purpose is for storage only. Campos Lopes MD IMG FILM LIBRARY ORD ERABLES [place], [place] documented in this encounter Visit Diagnoses Not on filedocumented in this encounter Care Teams Claims Processor Relationship Specialty Start Date End Date Campos Lopes MD [address] [place] [address] PCP - General 09/01/10 01/02/24 documented as of this encounter
--- OUTSIDE RECORDS SUMMARY | 2024-10-09 11:25 | XMS_ITS | Encounter Summary ---
Author Organization [facility] [place] [address] Care Team Providers Care Gear Keeper Name Role Phone Rosario Bahena MD Primary Care Provider [phone] Encounter Details Date Type Department Care Team (Late st Contact Info) Description 05/13/2004 Orders Only Lab [facility] [place] [address] Abdirizak Garcia MD Social History Tobacco Use Types Packs/Day [...] Associated Diagnosis Comments SURGICAL PATHOLOGY REPORT Routine 05/13/2004 5:26 PM EDT documented in this encounter Results * Surgical Pathology Report (05/13/2004 5:26 PM EDT) Surgical Pathology Report [id number] ? Location: The signing pathologist has (i) examined the relevant preparation(s) for the specimen(s) and (ii) rendered or confirmed the diagnosis(es). . ?Pathology Surgical Pathology Final Report Clinical Information Specimen Submitted: A - Right roman catholic, shave Clinical History: 8 Wk hx of crateriform papule 0.6 cm right roman catholic ED & C'd after bx; KA Gross Description Labeled/Fixativ e: ? Labeled with the patient's name, formalin. Qty/Size/Weight : ?Single shave, 1.0 cm, garcia-stuart skin with a ?central 0.6 x 0.5 cm, ovoid crusted lesion. Sections/Proces sing: ??Serially sectioned. ??(T1) bds/EJR Microscopic Description Slides reviewed, microscopic description not recorded. Diagnosis Right roman catholic, shave biopsy: ?? 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 CR-0 05/14/04 [facility] 05/14/04 Verified by: ? Sean Mendoza MD ?Dermatopathol ogist ?(Electronic Signature) The attending pathologist whose signature appears on this report has reviewed all diagnostic slides and has edited the gross and/or microscopic portion of the report in rendering the final pathologic diagnosis. RENETTA DAVIS 05/13/2004 5:26 PM EDT Abdirizak Garcia MD PATHOLOGY/CYTOLOGY O RDERABLES Performing Organization Address City/State/[facility] Co de Phone Number RENETTA DAVIS documented in this encounter Visit Diagnoses Not on filedocumented in this encounter Care Teams Gear Keeper Relationship Specialty Start Date End Date Rosario Bahena MD [address] [place] [address] PCP - General Family Medicine 01/03/24 documented as of this encounter
--- OUTSIDE RECORDS SUMMARY | 2024-10-09 11:25 | XMS_ITS | Encounter Summary ---
[place] [address] Care Team Providers Care Leisure Travel Agent Name Role Phone Campos Lopes MD Primary Care Provider [phone] Encounter Details Date Type Department Care Team (Latest Contact Info) Description 02/23/2023 Travel Social History Tobacco Use Types Packs/Day Years Used Date Smoking Tobacco: Never Assessed Sex and Gender Information Value Date Recorded Sex Assigned at Not on file Gender Identity Not on file Sexual Orientation Not on file documented as of this encounter Plan of Treatment Not on file documented as of this encounter Visit Diagnoses Not on filedocumented in this encounter Care Teams Leisure Travel Agent Relationship Specialty Start Date End Date Campos Lopes MD [address] [place] [address] PCP - General 09/01/10 01/02/24 documented as of this encounter
--- OUTSIDE RECORDS SUMMARY | 2024-10-09 11:25 | XMS_ITS | Encounter Summary ---
Author Organization [facility] Address [place] [id number] Care Team Providers Care Patron Attendant Name Role Phone Campos Lopes MD Primary Care Provider [phone] Reason for Visit * Consultation (Urgent) - Closed Specialty Diagnoses / Procedures Referred By Lynnette osman Referred To Contact Gastroenterology Diagnoses RUQ abdominal pain motiltiy- RUQ pain Campos Lopes MD [address] [place] [address] [facility] [address] [place] [address] Referral ID Status Reason Start Date Expiration Date V isits Requested Visits Authorized [id number] Closed Consult, Test & Treat PCP Updated and/or Approved 01/14/2023 01/14/2024 6 6 Encounter Details Date Type Department Care Team ([facility] Contact Info) Description 02/23/2023 8:30 AM EDT Office [place] [address] Jean-Paul Santana MD [facility] [place] [address] Postprandial RUQ pain Social History Tobacco Use Types Packs/Day Years Used Date Smoking Tobacco: Never Assessed Sex and Gender Information Value Date Recorded Sex Assigned at Not on file Gender Identity Not on file Sexual Orientation Not on file documented as of this encounter Last Filed Vital Signs Vital Sign Reading Time Taken Comments Blood Pressure 160/77 02/23/2023 8:35 AM EDT Pulse 74 02/23/2023 8:35 AM EDT Temperature - - Respiratory Rate - - Oxygen Saturation - - Inhaled Oxygen Concentration - - Weight 79.2 kg (174 lb 9.6 oz) 02/23/2023 8:35 A M EDT Height 167.6 cm (5' 6) 02/23/2023 8:35 AM EDT Body Mass Index 28.18 02/23/2023 8:35 AM EDT documented in this encounter Progress Notes * Jean-Paul Santana MD - 02/23/2023 8:30 AM EDT Images from the original note were not included. Division of Gastroenterology and Hepatology New Patient Visit PCP: Campos Lopes MD Referring provider: same as above Reason for Visit: RUQ pain, ? SOD HPI: Maureen Thomas is a 83 y.o. female w/ hx of: - Depression - Hyperthyroidism with upcoming thyroidectomy - Interstitial cystitis/pelvic pain - Atrophic vaginitis/pruritis/recurrent UTI - Asthma/COPD - HTN - HLD who presents to GI clinic for RUQ pain. Ms. Thomas had RUQ pain for about 6-8 months starting inearly 2021. She describes the pain as sharp in nature. The pain is made better when she didn't eat, and conversely was worth with eating. The pain was not associated with any other sxs, but was simply the pain alone. She rates the pain as a 8-9/10 at its worst which has increased from what it was previously (4-5/10). She was previously seen by OS surgeon for this pain and underwent a HIDA scan which showed an EF of 14%. Subsequently, she underwent laparoscopic CCY on 06/23/22 and tolerated the procedure well. Pathology from this procedure showed mild chronic cholecystitis. For the first 5 months after the surgery, she was doing well and then everything hit the fan. Since that time, she has had worsening nausea and vomiting as well as pain and diarrhea. She tried to call the surgeon who told her she didn't know what it was, and the surgeon did not want to investigate this concern any further. She reports that she is having nausea infrequently, but enough to not be normal. She has been taking zofran once every few weeks which helps. She was previously vomiting a lot, but since starting zofran this has been better. She continues to think that food is a triggerfor her pain. She continues to feel that the pain is sharp like before but much more intense. Thepain radiates from the RUQ to her back. She also has new diarrhea once in awhile-- once every other week, or once every 3 weeks. This too she feels is worse with certain foods, in particular fatty foods (mayonnaise etc). She has no fevers, chills, dysphagia, odynophagia, hematochezia or melena. She also has GERD which she has had for many years, but seems to be worse after surgery, includes huge amounts of thick white mucous... not good. She takes omeprazole 20 mg BID which seems to help this mucous production. She thinks she has lost about 10 pounds since the surgery. Recent labs include: - BMP: Na 145, K 4.7, Cl 108, CO2 26.3, BUN 18, creatinine 0.6 - LFTs: AST 17, ALT 28, ALKP 73, TB 0.4 CT A/P 08/10/22: - Hemorrhagic or proteinaceous cysts on the R kidney, considered benign. - Simple cysts on both kidneys, considered benign. - Thinly septated cyst on the L kidney with minimal calcification of portion of the septum highly likely benign. 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 She has never before undergone an upper endoscopy. She has also never before had a colonoscopy. [place]hedoes endorse doing stool testing however with the last one being quite along time ago... more than10 years ago maybe. PAST MEDICAL HISTORY: - Depression - Hyperthyroidism with upcoming thyroidectomy - Interstitial cystitis/pelvic pain - Atrophic vaginitis/pruritis/recurrent UTI - Asthma/COPD - HTN - HLD PAST SURGICAL HISTORY: - Cholecystectomy 06/2022 SOCIAL HISTORY: Social History Socioeconomic History ??? Marital status: Spouse name: Not on file ??? Number of children: Not on file ??? Years of education: Not on file ??? Highest education level: Not on file Occupational History ??? Not on file Tobacco Use ??? Smoking status: Not on file ??? Smokeless tobacco: Not on file Substance and Sexual Activity ??? Alcohol use: Not on file ??? Drug use: Not on file ??? Sexual activity: Not on file Other Topics Concern ??? Not on file Social History Narrative ??? 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 - Former smoker x 32 years who quit in 1986 - She drinks alcohol infrequently FAMILY HISTORY: - Father of TB - No family history of esophageal, gastric, pancreatic, liver, or colon cancer MEDICATIONS: Current Outpatient Medications Medication Sig Dispense Refill ??? magnesium oxide (Mag-Ox) 400 mg (241.3 mg magnesium) Tablet Take 400 mg by mouth. ??? metroNIDAZOLE (Flagyl) 500 mg tablet Take 500 mg by mouth 2 times daily. ??? omeprazole (PriLOSEC) [address] capsule Take 20 mg by mouth Twice daily. ??? ondansetron ODT (Zofran-ODT) 4 mg disintegrating tablet DISSOLVE 1 TABLET ON THE TONGUE EVERY 6TO 8 HOURS NEEDED FOR NAUSEA ??? Advair HFA 230-21 mcg/actuation HFA Aerosol Inhaler Inhale 2 puffs into the lungs 2 times daily. ??? ergocalciferol, vitamin D2, 50 mcg (2,000 unit) Tablet Take 2,000 Units by mouth. ??? Ventolin HFA 90 mcg/actuation HFA Aerosol Inhaler INHALE 2 PUFFS BY MOUTH EVERY 6 HOURS NEEDED FOR SHORTNESS OF BREATH OR WHEEZING ??? ATENOLOL ORAL ??? FLUTICASONE PROPIONATE (FLOVENT HFA INHL) ??? mometasone (ELOCON) 0.1 % ointment 1 Appl(s), Top, 1-2X/day prn ??? PIRBUTEROL ACETATE (MAXAIR AUTOHALER INHL) No current facility-administered medications for this visit. ALLERGIES: Allergies Allergen Reactions ??? Iodine And Iodide Containing Products CIS - Hives PHYSICAL EXAMINATION: Vitals: 02/23/23 0835 BP: 160/77 BP Location (NBP): Right arm Patient Position: Sitting BP Cuff Sizes: Large Adult (32-43 cm) Pulse: 74 Weight: 79.2 kg (174 lb 9.6 oz) Height: 167.6 cm (5' 6) General: Well appearing, no acute distress HEENT: anicteric sclera Chest: Clear to auscultation bilaterally, no wheeze, rale or rhonchi CVS: Regular rate and rhythm, normal s1/s2, no murmurs, rubs or gallops ABD: Soft, non-tender, non-distended, normoactive bowel sounds, no hepatosplenomegaly appreciated Extremities: Warm and well perfused Skin: No rash, no jaundice Neuro: Alert and oriented x3, grossly non-focal LABS: -Labs reviewed and are notable for: No results found for: WBC, HGB, HCT, MCV, PLATELET Chemistry No results found for: NA, K, CL, CO2, BUN, CREATININE No results found for: CALCIUM, ALKPHOS, AST, ALT, BILITOT No results found for: ALT, AST, GGT, ALKPHOS, BILITOT PRIOR GI WORKUP: - June 2022- HIDA scan w/EF of 14%. - CT A/P 08/10/22: - Hemorrhagic or proteinaceous cysts on the R kidney, considered benign. - Simple cysts on both kidneys, considered benign. - Thinly septated cyst on the L kidney with minimal calcification of portion of the septum highly likely benign. 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 ASSESSMENT & PLAN: Maureen Thomas is a 83 y.o. female w/ PMHx of Depression, HTN, HLD, Asthma/COPD, Atrophic vaginitis/pruritis/recurrent UTI, Interstitial cystitis/pelvic pain, Atrophic vaginitis/pruritis/recurrent UTI, and hyperthyroidism (upcoming thyroidectomy) who is being seen for RUQ pain. In summary, shedeveloped sharp post-prandial RUQ pain in 2021 with HIDA scan demonstrating an EF of 14% leading toCCY in June 2022. Following the procedure, she felt that her symptoms were improved until about 4-5 months post procedure. At that time, her post prandial pain returned and was worse than prior (now rated 8-9/10) with new onset nausea, vomiting, and occasional change in her bowels prompting referral to GI clinic to discuss SOD vs other causes of RUQ pain. We discussed today the list of differentials that could be driving her symptoms include retained gallstones (in particular in the cystic duct remnant), microlithiasis, or other pancreaticobiliary issues. PUD, gastritis, or duodenitis are also possible. The best test to look for all of these various issues is certainly EUS +/- ERCP only if stones are seen. We also discussed the diagnosis of SOD and the various subtypes. With only biliary pain, and no abnormalities of the CBD or LFTs, she would only qualify for type III SOD which is generally treated with neuromodulators or similar. Certainly, subjecting her to the risks associated with ERCP (pancreatitis, bleeding, infection, perforation) donot outweight the benefits for a type III SOD diagnosis, which again, I'm not certain she has. We agreed to complete the EUS, basic labs when she is having pain, and then following up in clinic to discuss next steps. If the studies are all normal, I will discuss initiation of a TCA at our followup i n 3 months. Recommendations: - Labs: CBC, CMP, lipase-- to be drawn when she is having pain - EUS +/- ERCP (only if stones are seen) - RTC in 3 months The patient was seen with Dr. Nieto. Jean-Paul Santana MD PGY-5, Gastroenterology [address] [place] [address] P: [phone] F: [phone] CC Campos Lopes MD [address] [place] [id number] * Campos Nieto MD - 02/23/2023 8:30 AM EDT I discussed the care of the patient with Dr. Santana and I agree with the assessment and plan as outlined. documented in this encounter Plan of Treatment Scheduled Orders Name Type Priority Associated Diagnoses Orde r Schedule ENDOSCOPY CASE REQUEST: UPPER EUS- ENDOSCOPIC ULTRASOUND (WRVU 3.47) Procedures Routine Postprandial RUQ pain Ordered: 02/23/2023 documented as of this encounter Visit Diagnoses Diagnosis Postprandial RUQ pain Abdominal pain, right upper quadrant documented in this encounter Care Teams Patron Attendant Relationship Specialty Start Date End Date Campos Lopes MD [address] [place] [id number] PCP - General 09/01/10 01/02/24 documented as of this encounter
--- OUTSIDE RECORDS SUMMARY | 2024-10-09 11:25 | XMS_ITS | Encounter Summary ---
[facility] [place] [address] Care Team Providers Care Television Specialist Name Role Phone Campos Lopes MD Primary Care Provider [phone] Encounter Details Date Type Department Care Team ([facility] st Contact Info) Description 05/16/2023 Telephone [place] [address] Ezra Jane Social History Tobacco Use Types [...] * Telephone Encounter - Ezra Jane - 05/16/2023 3:38 PM EDT Returned call from phone queue No answer Left message documented in this encounter Plan of Treatment Not on file documented as of this encounter Visit Diagnoses Not on filedocumented in this encounter Care Teams Television Specialist Relationship Specialty Start Date End Date Campos Lopes MD [address] [place] [address] PCP - General 09/01/10 01/02/24 documented as of this encounter
--- OUTSIDE RECORDS SUMMARY | 2024-10-09 11:25 | XMS_ITS | Encounter Summary ---
Author Organization [facility] [place] [address] Care Team Providers Care Satellite Communications Operator Name Role Phone Campos Lopes MD Primary Care Provider [phone] Encounter Details Date Type Department Care Team (Late st Contact Info) Description 10/23/2022 Ancillary Procedure Radiology Library at [facility] [place] [phone] Campos Lopes MD [address] [place], [place] [id number] Social History Tobacco Use Types Packs/Day Years [...] FILM LIBRARY STORAGE ONLY DX CHEST Routine 10/23/2022 12:00 AM EST documented in this encounter Results * Film Library- Storage Only DX Chest (10/23/2022 12:00 AM EST) Narrative [facility] - 01/13/2023 9:23 AM EDT This exam is auto-finalizing. It's purpose is for storage only. Campos Lopes MD IMG FILM LIBRARY ORD ERABLES [place], [place] documented in this encounter Visit Diagnoses Not on filedocumented in this encounter Care Teams Satellite Communications Operator Relationship Specialty Start Date End Date Campos Lopes MD [address] [place] [address] PCP - General 09/01/10 01/02/24 documented as of this encounter
[2024-10-09 15:10] LABS: Abs Immature Grans 0.04 10^3/uL (0.0-0.06); Absolute Basophil Count 0.06 10^3/uL (0.0-0.2); Absolute Eosinophil Count 0.26 10^3/uL (0.0-0.7); Absolute Lymphocyte Count 1.42 10^3/uL (1.2-3.4); Absolute Monocyte Count 0.61 10^3/uL (0.1-0.8); Absolute Neutrophil Count 6.67 10^3/uL (1.2-6.7); Basophils % 0.7 %; Eosinophils % 2.9 %; HCT 47.6 % (36.0-46.0); HGB 15.1 g/dL (11.2-15.7); Immature Grans % 0.4 %; Lymphocytes % 15.7 %; MCH 28.1 pg (27.0-33.0); MCHC 31.7 % (32.0-36.0); MCV 89 fL (80-95); MPV 9.9 fL (8.0-11.0); Monocytes % 6.7 %; Neutrophils % 73.6 %; Platelet Count 272 10^3/uL (130-400); RBC 5.37 10^6/uL (3.93-5.22); RDW 12.5 % (11.7-14.6); RDW-SD 40.8 fL; WBC 9.06 10^3/uL (4.4-10.8)
[2024-10-09 15:19] LABS: ESR 42 mm/hr (0-30)
[2024-10-09 15:35] LABS: ALT 18 U/L (14-59); AST 16 U/L (15-37); Albumin 3.9 g/dL (3.4-5.0); Alkaline Phosphatase 77 U/L (46-116); Anion Gap 7.9 mmol/L (3-11); BUN 15 mg/dL (7-18); Bilirubin, Total 0.54 mg/dL (0.2-1.0); C-Reactive Protein < 0.50 mg/dL (<or=0.5); CO2 29.1 mmol/L (21.0-32.0); CREATININE 0.9 mg/dL (0.55-1.02); Calcium 8.9 mg/dL (8.5-10.1); Chloride 106 mmol/L (98-107); Estimated GFR 63.83 (mL/min/1.73m2); Glucose 115 mg/dL (74-106); Potassium 4.3 mmol/L (3.5-5.1); Sodium 143 mmol/L (136-145)
[2024-10-09 16:38] LABS: Vitamin D 25 Total 39.5 ng/mL (30-100)
[2024-10-09 22:04] LABS: Rheumatoid Factor <8.6 IU/mL (<12.0)
[2024-10-10 13:04] LABS: ANA Interpretation Negative (Negative)
== END 2024-10-09 11:13 | disposition home or self-care (01) ==
LOC: NCHCN 11:12
PROVIDERS: PCP Family Medicine; Visit Provider Family Medicine
DX: E55.9 Vitamin D deficiency, unspecified (principal); R53.83 Other fatigue
CPT/HCPCS: 80053; 82306; 85652; 85025; 86038; 86140; 86431; 87086

== ENCOUNTER → 2024-10-23 13:57 | Outpatient (BNVA) | payer MEDICARE, MEDICAID, SELFPAY | PROVIDERS: PCP Internal Medicine; Referring Provider Internal Medicine; Visit Provider Surgery | DX: R10.11 Right upper quadrant pain (principal) | CPT/HCPCS: 99215 ==

== ENCOUNTER 2025-01-03 13:49 | Emergency (ER) | payer MEDICARE, MEDICAID, SELFPAY ==
[2025-01-03 14:01] VITALS: BP 218/89; PULSE 74; RESP 20; TEMP 36.6; O2SAT 94
--- NOTE | 2025-01-03 16:14 | W.ED.GENAD ---
Discharge Plan Disposition Patient Disposition: Home Condition: Stable Discharge Details Clinical Impression: Leg wound, left Primary Care Provider: Fifi Hu ED Provider: Moris Lopez Home Meds and New Rx's Prescriptions: New cephalexin 500 mg capsule 500 mg PO QID Qty: 28 0RF Continued fesoterodine [Toviaz] 4 mg tablet extended release 24 hr 4 mg PO DAILY PRN estradiol [Estrace] 0.01 % (0.1 mg/gram) cream 0.25 appful VG .COMPLEX PRN (Reason: uti) Qty: 42.5 2RF Rx Instructions: 0.25 appful vaginally apply tiny amount to outside of urethra daily for 2 weeks then twice weekly PRN; d-mannose 2,500 mg PO BID magnesium oxide 500 mg capsule 500 mg PO DAILY trospium 20 mg tablet 20 mg PO DAILY Rx Instructions: administer on an empty stomach cholecalciferol (vitamin D3) 25 mcg (1,000 unit) capsule 25 mcg PO DAILY atenolol 50 mg tablet 25 mg PO DAILY terconazole 0.4 % cream 1 appful vaginal QHS ipratropium bromide 42 mcg (0.06 %) spray,non-aerosol 2 spray intranasal TID Rx Instructions: administer into each nostril phenazopyridine [Pyridium] 100 mg tablet 100 mg PO TID PRN azelastine 137 mcg (0.1 %) aerosol,spray 1 spray intranasal BID Rx Instructions: administer into each nostril loratadine 10 mg tablet 10 mg PO BID (DME) Aerochamber MV Spacer See Rx Instructions .Route Rx Instructions: As directed fosfomycin tromethamine 3 gram packet 1 packet PO .Q 10 DAYS ipratropium-albuterol 0.5 mg-3 mg(2.5 mg base)/3 mL solution for nebulization 3 ml inhalation BID lidocaine HCl [Glydo] 2 % jelly in applicator 1 applic topical DIRECTED albuterol sulfate [Ventolin HFA] 90 mcg/actuation HFA aerosol inhaler 2 puff inhalation Q6H PRN (Reason: shortness of breath or wheezing) Qty: 8.5 12RF fluticasone propion-salmeterol [Advair HFA] 230-21 mcg/actuation HFA aerosol inhaler 2 puff inhalation BID Qty: 12 12RF pantoprazole [Protonix] 40 mg tablet,delayed release (DR/EC) 40 mg PO DAILY Qty: 30 4RF naproxen sodium [Aleve] 220 mg capsule 220 mg PO TID PRN Discharge Instructions Additional Instructions: I would recommend continuing the mupirocin and keeping the wound covered. If the redness start spreading even more you can start the cephalexin. Follow-up with dermatology. If you feel more ill or new symptoms such as high fevers return to the emergency department for evaluation HPI General Mode of arrival: ambulatory. Date/Time Provider Initiated Documentation: 01/03/25 13:54. Limitations to Documentation: no limitations. Information obtained by: patient. History of Present Illness 84 year old F presents to the emergency department with the chief complaint of left leg wound, described as mild, and is localized to the left and lower extremity. Patient started experiencing this month(s) (2) and it has been constant. No relieving factors improve symptom(s), No exacerbating factors reported . Patient notes no other symptoms.. Patient did receive the following treatments prior to arrival, none Related Data Home Medications ?Medication ?Instructions ?Recorded ?Confirmed cholecalciferol (vitamin D3) 25 25 mcg PO DAILY 02/08/20 01/03/25 mcg (1,000 unit) capsule atenolol 50 mg tablet 25 mg PO DAILY 11/10/20 01/03/25 terconazole 0.4 % vaginal cream 1 appful vaginal QHS 11/10/20 01/03/25 azelastine 137 mcg (0.1 %) nasal 1 spray intranasal BID 06/23/22 01/03/25 spray ipratropium bromide 42 mcg (0.06 2 spray intranasal TID 06/23/22 01/03/25 %) nasal spray phenazopyridine 100 mg tablet 100 mg PO TID PRN 06/23/22 01/03/25 (Pyridium) fosfomycin tromethamine 3 gram 1 packet PO .Q 10 DAYS 12/16/22 01/03/25 oral packet inhalational spacing device 12/16/22 01/03/25 (Aerochamber MV spacer) ipratropium 0.5 mg-albuterol 3 mg 3 ml inhalation BID 12/16/22 01/03/25 (2.5 mg base)/3 mL nebulization soln lidocaine HCl 2 % mucosal jelly in 1 applic topical DIRECTED 12/16/22 01/03/25 applicator (Glydo) loratadine 10 mg tablet 10 mg PO BID 12/16/22 01/03/25 fesoterodine 4 mg tablet,extended 4 mg PO DAILY PRN 12/28/22 01/03/25 release 24 hr (Toviaz) estradiol 0.01% (0.1 mg/gram) 0.25 appful vaginal .COMPLEX PRN 03/23/23 01/03/25 vaginal cream (Estrace) uti #42.5 grams d-mannose 2,500 mg PO BID 06/20/23 01/03/25 albuterol sulfate 90 mcg/actuation 2 puff inhalation Q6H PRN 01/02/24 01/03/25 aerosol inhaler (Ventolin HFA) shortness of breath or wheezing #8.5 grams fluticasone propionate 230 2 puff inhalation BID #12 grams 01/02/24 01/03/25 mcg-salmeterol 21 mcg/actuation HFA inhaler (Advair HFA) pantoprazole 40 mg tablet,delayed 40 mg PO DAILY #30 tabs 08/05/24 01/03/25 release (Protonix) magnesium oxide 500 mg capsule 500 mg PO DAILY 10/23/24 01/03/25 naproxen sodium 220 mg capsule 220 mg PO TID PRN 10/23/24 01/03/25 (Aleve) trospium 20 mg tablet 20 mg PO DAILY 10/23/24 01/03/25 cephalexin 500 mg capsule 500 mg PO QID #28 caps 01/03/25 Previous Rx's ?Medication ?Instructions ?Recorded estradiol 0.01% (0.1 mg/gram) 0.25 appful vaginal .COMPLEX PRN 03/23/23 vaginal cream (Estrace) uti #42.5 grams albuterol sulfate 90 mcg/actuation 2 puff inhalation Q6H PRN 01/02/24 aerosol inhaler (Ventolin HFA) shortness of breath or wheezing #8.5 grams fluticasone propionate 230 2 puff inhalation BID #12 grams 01/02/24 mcg-salmeterol 21 mcg/actuation HFA inhaler (Advair HFA) pantoprazole 40 mg tablet,delayed 40 mg PO DAILY #30 tabs 08/05/24 release (Protonix) cephalexin 500 mg capsule 500 mg PO QID #28 caps 01/03/25 Allergies Allergy/AdvReac Type Severity Reaction Status Date / Time iodine Allergy Severe Hives, Verified 11/16/23 09:54 anaphalaxis per patient levofloxacin Allergy Intermediate leg Verified 11/16/23 09:54 weakness losartan Allergy Intermediate Verified 11/16/23 09:54 sulfamethoxazole (From Allergy Intermediate Itching Verified 11/16/23 09:54 Bactrim) trimethoprim (From Bactrim) Allergy Intermediate Itching Verified 11/16/23 09:54 methimazole Allergy Mild Fatigue Verified 11/16/23 09:54 pentosan polysulfate sodium Allergy Mild Verified 11/16/23 09:54 (From [place]) epinephrine AdvReac Severe increased Verified 11/16/23 09:54 heart rate lisinopril AdvReac Intermediate increased Verified 11/16/23 09:54 heart rate famotidine AdvReac Mild stomach Verified 11/16/23 09:54 upset IVP dye Allergy Intermediate Anaphylaxis Uncoded 11/16/23 09:54 General Stated Complaint: RashLesion AMARJIT: 3 Review of Systems All systems reviewed & are unremarkable except as noted in HPI and below Constitutional Constitutional: Denies chills, Denies fever(s) and Denies weakness Cardiovascular Cardiovascular: Denies chest pain and Denies dyspnea Respiratory Respiratory: Denies cough and Denies dyspnea Gastrointestinal Gastrointestinal: Denies abdominal pain, Denies nausea and Denies vomiting Integumentary/Breasts Skin/Breast: Reports erythema Neurologic Neurologic: Denies weakness Exam Const General: no acute distress Orientation: alert [facility] Head: normal to inspection Ears: external ears normal General nose exam: external nose normal Mouth: moist mucous membranes Eyes General: appearance normal, both eyes and all related structures Neck Neck: normal visual inspection Resp Effort & Inspection: normal respiratory effort and able to speak in complete sentences Cardio Rate: regular rate Skin General skin exam: erythema Neuro General: patient alert and patient oriented x3 Extrem General: no edema Psych Mental Status: mental status grossly normal Course Vital Signs Vital signs: Vital Signs Temperature 36.6 C 01/03/25 14:01 Pulse 74 01/03/25 14:01 Respiratory Rate 20 01/03/25 14:01 Blood Pressure 218/89 H 01/03/25 14:01 Pulse Oximetry 94 01/03/25 14:01 Temperature 36.6 C 01/03/25 14:01 Temperature Source Oral 01/03/25 14:01 Pulse 74 01/03/25 14:01 Respiratory Rate 20 01/03/25 14:01 Blood Pressure 218/89 H 01/03/25 14:01 Blood Pressure Position Sitting 01/03/25 14:01 Pulse Oximetry 94 01/03/25 14:01 Oxygen Delivery Method Room Air 01/03/25 14:01 Oxygen Flow Rate 0 01/03/25 14:01 Pain Level 6 01/03/25 14:01 Medical Decision Making 84-year-old female who states she had a basal carcinoma removed at dermatology at [facility] 2 months ago and still has a wound in the left lower anterior leg was removed. She has a mild erythema around it so was prescribed mupirocin and came here for a second opinion. She denies any fevers or severe pain. She has a half a centimeter shallow open wound on the left lower anterior mid leg with 2 to 3 mm of mild surrounding erythema. There is no crepitus, there is no significant swelling of the leg. He has the appearance of a chronic wound. I do not feel oral antibiotics are indicated at this time especially since she just started mupirocin after discussion with her I will give her a paper prescription for cephalexin in case this worsens. She will follow-up with dermatology if needed and return precautions given. She has no leg swelling or calf tenderness so I doubt entities such as DVT and do not feel ultrasound is indicated. Differential Diagnosis Differential Diagnosis: chronic wound, cellulitis Quality:SDOH Health Related Social Needs: No Data to Display PFSH All Active Problems (Updated 01/03/25 @ 16:18 by Moris Lopez MD) Leg wound, left (Acute) Recurrent UTI (Acute) Pulmonary nodule (Acute) Personal history of nicotine dependence (Acute) Asthma-COPD overlap syndrome (Acute) Blepharitis (Acute) Hip pain, left (Acute) Chronic cough (Acute) Otalgia (Acute) Pelvic pain (Acute) Vaginal itching (Acute) Chronic RUQ pain (Acute) Biliary dyskinesia (Acute) Medical History (Updated 01/03/25 @ 16:18 by Moris Lopez MD) Pelvic and perineal pain Lung field abnormal Dyspnea Tremor History of muscle pain Disorder of sacrum Low back pain Acute joint pain Chronic interstitial cystitis Acquired cystic kidney disease GERD (gastroesophageal reflux disease) Hx of chronic obstructive lung disease Posterior rhinorrhea Allergic rhinitis Chronic rhinitis Hypertension Essential hypertension Polyneuropathy Neuropathy Major depression single episode, in partial remission Hypothyroidism Asthma COPD (chronic obstructive pulmonary disease) with chronic bronchitis Phlegm in throat Perennial allergic rhinitis Peripheral neuropathy De Quervain's tenosynovitis Sleepiness Arthralgia Foreign body granuloma of skin Xerosis of skin Postnasal drip Muscle cramps Chronic blepharitis Gastric mass Gallbladder disorder Cystitis cystica Reactive depression (situational) Chronic interstitial cystitis UTI (urinary tract infection) Dysphonia COPD (chronic obstructive pulmonary disease) Gustatory rhinitis Foot pain Atrophic vaginitis Shoulder pain, left Acute cystitis Urinary frequency (08/03/11) Urgency of urination (12/27/12) Postmenopausal bleeding (03/28/13) Lipoma of stomach Excessive oral secretions Abdominal pain Mild chronic gastritis Subclinical hyperthyroidism Positive PPD Fracture of coccyx with delayed healing Laryngopharyngeal reflux Pruritus History of gastric ulcer Recurrent UTI (urinary tract infection) Dyspepsia Fatigue Incontinence in female Renal cyst Colon polyp Carpal tunnel syndrome Basal cell carcinoma bilateral thighs Paroxysmal a-fib Hyperthyroidism Hypercholesterolemia Essential hypertension Pt. denies that she has this, is on atenolol for hyperparathyroidism Surgical History (Updated 12/20/23 @ 08:13 by Amrita Box) History of thyroidectomy S/P laparoscopic cholecystectomy History of carpal tunnel surgery History of esophagogastroduodenoscopy (EGD) (~02/25/20) Family History (Updated 12/20/23 @ 08:16 by Amrita Box) Father Tuberculosis Sister Tuberculosis Mother Malignant neoplasm of skin Social History Smoking/Tobacco Use Status: Former Tobacco Use Quit Date: 10/10/89 Smoking risk assessment performed?: Yes Alcohol Intake: current Alcohol Intake frequency: holidays/special occasions only Alcohol type: wine Drug use: Never Substance use type: does not use Do you feel safe at home: Yes Do you feel safe in your relationship?: Yes
[2025-01-03 16:42] VITALS: BP 162/62; PULSE 74; RESP 16; O2SAT 96
--- NOTE | 2025-01-05 08:46 | NUR.NOTE ---
Access chart to reconcile EKG orders with EKG's in [facility]. Order cancelled, no EKG in [facility] and none documented by provider. Nursing Note:
== END 2025-01-03 16:42 | disposition home or self-care (01) ==
PROVIDERS: Emergency Provider Emergency Medicine; PCP Internal Medicine
DX: L53.9 Erythematous condition, unspecified (principal); L76.82 Other postprocedural complications of skin and subcutaneous tissue; E03.9 Hypothyroidism, unspecified; E78.00 Pure hypercholesterolemia, unspecified; I48.91 Unspecified atrial fibrillation; Z87.891 Personal history of nicotine dependence
CPT/HCPCS: 99283

== ENCOUNTER → 2025-05-01 12:55 | Outpatient (BNVA) | payer MEDICARE, MEDICAID, SELFPAY | PROVIDERS: PCP Internal Medicine; Referring Provider Internal Medicine; Visit Provider Internal Medicine Pulmonary Disease | DX: J44.9 Chronic obstructive pulmonary disease, unspecified (principal); R91.1 Solitary pulmonary nodule; Z87.891 Personal history of nicotine dependence; R05.9 Cough, unspecified | CPT/HCPCS: 99215 ==

== ENCOUNTER 2025-05-10 02:34 | Outpatient (CLI) | payer MEDICARE, MEDICAID, SELFPAY ==
[2025-05-10] MEDS: Levalbuterol HFA 15 GM INH 4 PUFF IH (16:42)
[2025-05-10] MEDS: Inhaler, Assist Device 1 EACH MC (16:42)
--- NOTE | 2025-05-14 12:55 | W.PFT ---
Date of service: 05/10/25 Time of Service: 12:54 Pulmonary Function Test Result Indications: Dyspnea, pulmonary nodule Impression 1. Good patient effort was noted. ATS standards for reproducibility were met. 2. Spirometry showed severe obstructive lung disease with an FEV1 of 40% (0.75 L) 3. Following the administration of a bronchodilator there was a significant response 4. TLC was normal. No evidence of restrictive lung disease 5. DLCO was 79%, consistent with a mild defect in alveolar gas exchange
== END 2025-05-10 02:35 | disposition home or self-care (01) ==
LOC: RT 02:35
PROVIDERS: PCP Internal Medicine; Visit Provider Internal Medicine Pulmonary Disease
DX: R91.1 Solitary pulmonary nodule (principal)
CPT/HCPCS: 94060; 94726; 94729